=== PATIENT | female | born 1950 | race African-American/Black ===

== ENCOUNTER 2017-05-02 18:15 | Inpatient (IN) | payer OTHER ==
--- OUTSIDE RECORDS SUMMARY | 2017-05-02 18:17 | XMS REPORT | Clinical Summary ---
:1950 Author Organization [facility] Address [address] [place] [address] Care Team Providers Name Role Phone Jason Coates MD Primary Care Provider Allergies No Known Allergies Current Medications No known medications Active Problems No known active problems Encounters Date Type Specialty Care Team Description 11/02/2016 Orders Only General Surgery Unknown, Phys 10/29/2016 Office Visit General Surgery Shadi Montoya, Diverticulitis of large intestine without perforation or abscess without bleeding (Primary Dx); Diarrhea, unspecified type; Alagugurusamy, Fecal incontinence; Natalie Vizcaino, Abdominal pain, generalized [facility] CLOSER-C 10/29/2016 Orders Only General Surgery Alagugurusamy, Diarrhea, unspecified Natalie Vizcaino, type (Primary Dx) [employer]OSER-C after 05/01/2016 Family History Medical History Relation Name Comments Anesthesia problems Daughter Diabetes Daughter Kidney disease Daughter Arthritis Father Diabetes Father Hypertension Father Stroke Father Relation Name Status Comments Daughter Father Social History Tobacco Use Types Packs/Day Years Used Date Never Assessed Sex Assigned at Date Recorded Not on file Last Filed Vital Signs Vital Sign Reading Time Taken Blood Pressure 167/96 10/29/2016 10:48 AM CDT Pulse 88 10/29/2016 10:48 AM CDT Temperature - - Respiratory Rate - - Oxygen Saturation - - Inhaled Oxygen Concentration - - Weight 111 kg (245 lb) 10/29/2016 10:48 AM CDT Height 170.2 cm (5' 7") 10/29/2016 10:48 AM CDT Body Mass Index 38.37 10/29/2016 10:48 AM CDT Plan of Treatment Health Maintenance Due Date Last Done Comments PAP SMEAR 12/18/1972 COLONOSCOPY 12/18/2001 MAMMOGRAM 12/18/2001 ZOSTER VACCINE 2011 INFLUENZA VACCINE 09/14/2016 PNEUMOCOCCAL POLYSACCHARIDE VACCINE AGE 65 AND OVER 12/18/2016 PNEUMOCOCCAL-13 12/18/2016 Results Radiology Exam Surg Specimen (06/05/2016)after 05/01/2016 Insurance Payer Benefit Plan / Group Subscriber ID Type Phone Address [employer]ET[employer] A[employer] PPO OPEN CHOICE xxxxxxxxxx PPO [phone] [place] [address]
--- NOTE | 2017-05-02 19:17 | RAD REPORT ---
EXAM DESCRIPTION: CT - Stone Protocol - 05/02/2017 7:01 pm CLINICAL HISTORY: Left flank pain radiating to the back COMPARISON: CT imaging September 2016 TECHNIQUE: Axial 5 mm thick images were obtained without oral or IV contrast. The [id number] span s the entirety of the system including uppermost abdomen and lung bases. All CT scans are performed using dose optimization technique as appropriate and may include automated exposure control or mA/KV adjustment according to patient size. FINDINGS: No acute hydronephrosis is present. Slight fullness of the left renal pelvis is similar to the prior study. The patient has numerous presumed phleboliths in the pelvis and along the course of the ureter. None of these are confirmed to be within the ureter in the calcification pattern has not changed from September 2016. No suspicious renal masses. Isodense masses and pyelonephritis are not exc luded on a stone protocol CT scan. No urinary bladder suspicious finding. Imaged portions of the liver, spleen and pancreas show no suspicious findings on non-contrast imaging . Cholecystectomy clips are present. No biliary tree dilatation. No significant adrenal finding. No acute gastric finding. Small bowel is unremarkable. Moderate stool volume is present in the right- side of the colon extending through the descending colon. In the proximal sigmoid colon there is mild diverticulosis present. There is also mild wall thickening and adjacent stranding. This mild acute d iverticulitis pattern is not substantially different from the prior study. No colon mass. No hernia, mass or bulky lymphadenopathy noted. Hernia repair changes along the anterior abdominal wa ll are stable. Uterus is absent. Ovaries are absent or atrophic. No adnexal masses. Disc and bony degenerative change present. No acute finding. IMPRESSION: Mild diverticulitis findings are present in the proximal sigmoid colon. No abscess, free air or other complicating factor. No acute hydronephrosis is present. There are numerous calcifications in proximity to the left ureter but none of these are shown to be within the ureter. Calcification pattern is stable from prior imag ing. Isodense masses and pyelonephritis are not excluded on stone protocol technique.
--- NOTE | 2017-05-02 20:16 | RAD REPORT ---
EXAM DESCRIPTION: US - Renal Ultrasound-Complete - 05/02/2017 7:18 pm CLINICAL HISTORY: Abdominal pain, flank pain COMPARISON: CT study September 2016 FINDINGS: The right kidney measures 13.3 x 6.2 x 6.4 cm. The left kidney measures 12.9 x 6.4 x 5.8 cm. Renal cortical thickness and echogenicity are normal. No hydronephrosis or suspicious renal mass. IMPRESSION: No hydronephrosis or suspicious renal mass. No other significant findings.
--- NOTE | 2017-05-02 20:23 | EDPHYS ---
Physician Documentation [facility] Name: Blanka Ferrell Age: 66 yrs Sex: Female : 1950 Arrival Date: 05/02/2017 Time: 18:19 Bed 24 Private MD: Shaista Campos C ED Physician Philipp Harley HPI: 05/02 18:47 This 66 yrs old Black Female presents to ER via Ambulatory with complaints of Back Pain.yahir 18:47 The patient presents with pain that is acute, with no known mechanism of injury, and yahir decreased range of motion. The symptoms are located in the low back, left low back and left mid back. Onset: The symptoms/episode began/occurred 3 day(s) ago. The pain radiates to the left low back and left mid back. Associated signs and symptoms: The patient has no apparent associated signs or symptoms. The problem was sustained from unknown cause. Modifying factors: The patient symptoms are alleviated by nothing, the patient symptoms are aggravated by movement, standing, walking. Severity of symptoms: At their worst the symptoms were moderate, in the emergency department the symptoms are unchanged. Historical: - Allergies: 18:25 Imitrex; aj - Home Meds: 18:25 carvedilol 25 mg Oral tab 2 tab daily [Active]; clonidine HCl 0.2 mg Oral tab as needed aj [Active]; Humalog Sub-Q [Active]; Hydralazine Oral [Active]; Levemir subcutaneous [Active]; Lyrica Oral [Active]; losartan-hydrochlorothiazide 100-25 mg Oral tab 1 tab once daily [Active]; Phenergan Oral [Active]; - PMHx: 18:25 Anxiety; Diabetes - IDDM; Hypertension; Migraines; Thyroid problem; aj - PSHx: 18:25 Hysterectomy; aj - Immunization history:: Adult Immunizations up to date. - Social history:: Smoking status: Patient/guardian denies using tobacco. - Family history:: not pertinent. ROS: 18:47 Constitutional: Negative for fever, chills, and weight loss, Eyes: Negative for injury, yahir pain, redness, and discharge, ENT: Negative for injury, pain, and discharge, Neck: Negative for injury, pain, and swelling, Cardiovascular: Negative for chest pain, palpitations, and edema, Respiratory: Negative for shortness of breath, cough, wheezing, and pleuritic chest pain, : Negative for injury, bleeding, discharge, and swelling, MS/Extremity: Negative for injury and deformity, Skin: Negative for injury, rash, and discoloration, Neuro: Negative for headache, weakness, numbness, tingling, and seizure, Psych: Negative for depression, anxiety, suicide ideation, homicidal ideation, and hallucinations, Allergy/Immunology: Negative for hives, rash, and allergies, Endocrine: Negative for neck swelling, polydipsia, polyuria, polyphagia, and marked weight changes, Hematologic/Lymphatic: Negative for swollen nodes, abnormal bleeding, and unusual bruising. 18:47 Abdomen/GI: Positive for abdominal pain, of the posterior aspect of left lateral abdomen and left lower quadrant. 18:47 Back: Positive for decreased range of motion, pain at rest, flank pain, on the left, radiated pain, of the left low back and left mid back. Exam: 18:47 Constitutional: This is a well developed, well nourished patient who is awake, alert, yahir and in no acute distress. Head/Face: Normocephalic, atraumatic. Eyes: Pupils equal round and reactive to light, extra-ocular motions intact. Lids and lashes normal. Conjunctiva and sclera are non-icteric and not injected. Cornea within normal limits. Periorbital areas with no swelling, redness, or edema. ENT: Nares patent. No nasal discharge, no septal abnormalities noted. Tympanic membranes are normal and external auditory canals are clear. Oropharynx with no redness, swelling, or masses, exudates, or evidence of obstruction, uvula midline. Mucous membranes moist. Neck: Trachea midline, no thyromegaly or masses palpated, and no cervical lymphadenopathy. Supple, full range of motion without nuchal rigidity, or vertebral point tenderness. No Meningismus. Chest/axilla: Normal chest wall appearance and motion. Nontender with no deformity. No lesions are appreciated. Cardiovascular: Regular rate and rhythm with a normal S1 and S2. No gallops, murmurs, or rubs. Normal PMI, no JVD. No pulse deficits. Respiratory: Lungs have equal breath sounds bilaterally, clear to auscultation and percussion. No rales, rhonchi or wheezes noted. No increased work of breathing, no retractions or nasal flaring. Female : Normal external genitalia. Skin: Warm, dry with normal turgor. Normal color with no rashes, no lesions, and no evidence of cellulitis. MS/ Extremity: Pulses equal, no cyanosis. Neurovascular intact. Full, normal range of motion. Neuro: Awake and alert, GCS 15, oriented to person, place, time, and situation. Cranial nerves II-XII grossly intact. Motor strength 5/5 in all extremities. Sensory grossly intact. Cerebellar exam normal. Normal gait. Psych: Awake, alert, with orientation to person, place and time. Behavior, mood, and affect are within normal limits. 18:47 Abdomen/GI: Inspection: distension, Bowel sounds: normal, Palpation: mild abdominal tenderness, in the left lower quadrant, Liver: no appreciated palpable abnormalities, Hernia: not appreciated. Vital Signs: 18:25 BP 195 / 111; Pulse 93; Resp 20; Temp 97.0; Pulse Ox 96% on R/A; Weight 108.86 kg; aj Height 5 ft. 5 in. (165.10 cm); Pain 8/10; 21:30 BP 210 / 103; Pulse 77; Resp 18; Pulse Ox 98% on R/A; kr2 22:10 BP 182 / 85; Pulse 78; Resp 16; Pulse Ox 100% on R/A; kr2 18:25 Body Mass Index 39.94 (108.86 kg, 165.10 cm) Procedures: 20:18 Peripheral line: by aseptic technique a peripheral line was placed in the right [facility] external jugular vein. MDM: 18:29 Patient medically screened. [facility] 18:50 Data reviewed: vital signs, nurses notes, lab test result(s), EKG, radiologic studies, [facility] CT scan, plain films, ultrasound. 05/02 18:46 Order name: Basic Metabolic Panel [facility] 05/02 18:46 Order name: BNP [facility] 05/02 18:46 Order name: CBC with Diff [facility] 05/02 18:46 Order name: Ckmb [facility] 05/02 18:46 Order name: CPK [facility] 05/02 18:46 Order name: LFT's [facility] 05/02 18:46 Order name: Magnesium [facility] 05/02 18:46 Order name: PT-INR [facility] 05/02 18:46 Order name: Ptt, Activated [facility] 05/02 18:46 Order name: Troponin (emerg Dept Use Only) [facility] 05/02 18:46 Order name: Lipase [facility] 05/02 18:46 Order name: Urine Culture [facility] 05/02 20:27 Order name: CBC with Automated Diff; Complete Time: 20:32 EDSC 05/02 20:36 Order name: Basic Metabolic Panel; Complete Time: 20:51 EDSC 05/02 18:46 Order name: XRAY Chest (1 view) [facility] 05/02 18:46 Order name: CT Stone Protocol [facility] 05/02 18:46 Order name: US Rp Exam Complete [facility] 05/02 19:18 Order name: CT; Complete Time: 20:15 EDMS 05/02 20:16 Order name: US; Complete Time: 20:17 EDSC 05/02 20:36 Order name: Lipase; Complete Time: 20:51 EDSC 05/02 20:42 Order name: Troponin (Emerg Dept Use Only); Complete Time: 20:51 EDSC 05/02 20:42 Order name: Liver (Hepatic) Function; Complete Time: 20:51 EDSC 05/02 20:42 Order name: Creatine Phosphokinase; Complete Time: 20:51 EDSC 05/02 20:42 Order name: Magnesium; Complete Time: 20:51 EDSC 05/02 20:42 Order name: Protime (+INR); Complete Time: 20:51 EDSC 05/02 20:42 Order name: PTT, Activated Partial Thromb; Complete Time: 20:51 EDSC 05/02 20:45 Order name: CKMB Creatine Kinase MB; Complete Time: 20:51 EDSC 05/02 20:46 Order name: BNP B-Type Natriuretic Peptide; Complete Time: 20:51 EDSC 05/02 21:13 Order name: RAD [facility] 05/02 18:46 Order name: EKG; Complete Time: 18:48 [facility] 05/02 18:46 Order name: Cardiac monitoring; Complete Time: 21:37 [facility] 05/02 18:46 Order name: EKG - Nurse/Tech; Complete Time: 21:37 [facility] 05/02 18:46 Order name: IV Saline Lock; Complete Time: 21:37 [facility] 05/02 18:46 Order name: Labs collected and sent; Complete Time: 21:38 [facility] 05/02 18:46 Order name: O2 Per Protocol; Complete Time: 21:38 [facility] 05/02 18:46 Order name: O2 Sat Monitoring; Complete Time: 21:38 [facility] 05/02 18:46 Order name: Urine Dipstick-Ancillary (obtain specimen); Complete Time: :38 [facility] Administered Medications: 21:10 Drug: Coreg 25 mg Route: PO; kr2 22:52 Follow up: Response: No adverse reaction kr2 21:10 Drug: HydrALAZINE 25 mg Route: PO; kr2 22:52 Follow up: Response: No adverse reaction; Blood pressure is lowered kr2 21:10 Drug: cloNIDine 0.1 mg Route: PO; kr2 22:51 Follow up: Response: No adverse reaction; Blood pressure is lowered kr2 21:14 Drug: Cipro 400 mg Volume: 200 ml; Route: IVPB; Infused Over: 60 mins; Site: right kr2 jugular; 22:00 Follow up: Response: No adverse reaction; IV Status: Completed infusion kr2 21:14 Drug: Flagyl 500 mg Volume: 100 ml; Route: IVPB; Rate: 200 ml/hr; Infused Over: 30 kr2 mins; Site: right jugular; 22:00 Follow up: Response: No adverse reaction; IV Status: Completed infusion kr2 21:14 Drug: NS 0.9% 500 ml Route: IV; Rate: bolus; Site: right jugular; kr2 21:35 Follow up: Response: No adverse reaction; IV Status: Completed infusion kr2 21:15 Drug: fentaNYL (PF) 50 mcg Route: IVP; Site: right jugular; kr2 21:36 Follow up: Response: No adverse reaction; Pain is decreased kr2 21:15 Drug: Zofran 4 mg Route: IVP; Site: right jugular; kr2 21:36 Follow up: Response: No adverse reaction kr2 21:36 Drug: NS 0.9% 1000 ml Route: IV; Rate: 75 ml/hr; Site: right jugular; kr2 22:51 Follow up: IV Status: Infusion continued upon admission kr2 Disposition: 05/02/17 20:21 Hospitalization ordered by Shaista Campos for Observation. Preliminary diagnosis are Abdominal tenderness, Obesity, unspecified, Diverticular disease of intestine, Diverticulitis of large intestine without perforation or abscess without bleeding, Type 1 diabetes mellitus. - Bed requested for Telemetry/MedSurg (observation). - Status is Observation. kr2 - Condition is Fair. - Problem is new. - Symptoms have improved. UTI on Admission? No Signatures: Dispatcher [employer] Candice Owens RN RN mw Myers, Amanda, RN RN aj Anderson, Corey, MD MD cha Reaves, Karey, RN RN kr2
--- NOTE | 2017-05-02 20:23 | ER ---
Nurse's Notes [facility] Name: Blanka Ferrell Age: 66 yrs Sex: Female : 1950 Arrival Date: 05/02/2017 Time: 18:19 Bed 24 Private MD: Shaista Campos C Diagnosis: Abdominal tenderness;Obesity, unspecified;Diverticular disease of intestine;Diverticulitis of large intestine without perforation or abscess without bleeding;Type 1 diabetes mellitus Presentation: 05/02 18:23 Presenting complaint: Patient states: Left flank pain that radiates to back, started aj last . Transition of care: patient was not received from another setting of care. Onset of symptoms was April 27, 2017. Care prior to arrival: None. 18:23 Method Of Arrival: Ambulatory aj 18:23 Acuity: THALIA 3 aj Triage Assessment: 18:25 General: Appears in no apparent distress. comfortable, obese, Behavior is calm, aj cooperative, appropriate for age. Pain: Complains of pain in posterior aspect of left lateral abdomen and anterior aspect of left lateral abdomen. Neuro: Level of Consciousness is awake, alert, obeys commands, Oriented to person, place, time, situation. Respiratory: Airway is patent Respiratory effort is even, unlabored, Respiratory pattern is regular, symmetrical. Derm: Skin is intact, is healthy with good turgor, Skin is pink, warm \T\ dry. normal. Historical: - Allergies: 18:25 Imitrex; aj - Home Meds: 18:25 carvedilol 25 mg Oral tab 2 tab daily [Active]; clonidine HCl 0.2 mg Oral tab as needed aj [Active]; Humalog Sub-Q [Active]; Hydralazine Oral [Active]; Levemir subcutaneous [Active]; Lyrica Oral [Active]; losartan-hydrochlorothiazide 100-25 mg Oral tab 1 tab once daily [Active]; Phenergan Oral [Active]; - PMHx: 18:25 Anxiety; Diabetes - IDDM; Hypertension; Migraines; Thyroid problem; aj - PSHx: 18:25 Hysterectomy; aj - Immunization history:: Adult Immunizations up to date. - Social history:: Smoking status: Patient/guardian denies using tobacco. - Family history:: not pertinent. Screenin:00 Abuse screen: Denies threats or abuse. Denies injuries from another. Nutritional kr2 screening: No deficits noted. Tuberculosis screening: No symptoms or risk factors identified. Fall Risk None identified. Assessment: 19:00 General: Appears in no apparent distress. comfortable, well groomed, well developed, kr2 well nourished, Behavior is cooperative, appropriate for age, anxious. Pain: Complains of pain in left lower quadrant Pain radiates to left mid back and left low back Pain currently is 8 out of 10 on a pain scale. Quality of pain is described as aching, crampy, sharp. Neuro: Level of Consciousness is awake, alert, obeys commands, Oriented to person, place, time, situation, Appropriate for age [employer] are equal bilaterally Moves all extremities. Gait is steady, Speech is normal, Facial symmetry appears normal, Pupils are PERRLA, Intact. Cardiovascular: Capillary refill < 3 seconds in bilateral fingers Patient's skin is warm and dry. Respiratory: Airway is patent Respiratory effort is even, unlabored, Respiratory pattern is regular, symmetrical. GI: Abdomen is round non-distended, Bowel sounds present X 4 quads. Abd is soft X 4 quads Abdomen is tender to palpation in left lower quadrant Reports lower abdominal pain, nausea. : Urine is clear. EENT: Nares are clear bilaterally Oral mucosa is moist. Derm: Skin is intact, is healthy with good turgor, Skin is dry, Skin is normal, Skin temperature is warm. Musculoskeletal: Circulation, motion, and sensation intact. 20:00 Reassessment: Patient appears in no apparent distress at this time. Patient and/or kr2 family updated on plan of care and expected duration. Pain level reassessed. Patient is alert, oriented x 3, equal unlabored respirations, skin warm/dry/pink. Patient with poor venous access , attempting to obtain IV access to give ordered medications. 21:00 Reassessment: Patient appears in no apparent distress at this time. Patient and/or kr2 family updated on plan of care and expected duration. Pain level reassessed. Patient is alert, oriented x 3, equal unlabored respirations, skin warm/dry/pink. Patient states feeling better. Reassessment: Patient appears in no apparent distress at this time. Patient and/or family updated on plan of care and expected duration. Pain level reassessed. Patient is alert, oriented x 3, equal unlabored respirations, skin warm/dry/pink. 22:48 Reassessment: Patient appears in no apparent distress at this time. Patient and/or kr2 family updated on plan of care and expected duration. Pain level reassessed. Patient is alert, oriented x 3, equal unlabored respirations, skin warm/dry/pink. Given Tylenol for complaints of headache, documented in [employer] chart. Vital Signs: 18:25 BP 195 / 111; Pulse 93; Resp 20; Temp 97.0; Pulse Ox 96% on R/A; Weight 108.86 kg; Height 5 ft. 5 in. (165.10 cm); Pain 8/10; 21:30 BP 210 / 103; Pulse 77; Resp 18; Pulse Ox 98% on R/A; kr2 22:10 BP 182 / 85; Pulse 78; Resp 16; Pulse Ox 100% on R/A; kr2 18:25 Body Mass Index 39.94 (108.86 kg, 165.10 cm) ED Course: 18:19 Patient arrived in ED. mr 18:23 Shaista Campos MD is Private Physician. mr 18:24 Triage completed. 18:25 Arm band placed on left wrist. Patient placed in an exam room. 18:29 Philipp Harley MD is Attending Physician. [facility] 18:54 Laura Garcia, RE is Primary Nurse. kr2 19:00 Patient has correct armband on for positive identification. Bed in low position. Call kr2 light in reach. Side rails up X2. retread mold operator on. Pulse ox on. NIBP on. Door closed. Warm blanket given. Head of bed elevated. 19:[address] via wheelchair. mn 19:01 CT completed. Patient tolerated procedure well. Patient moved back from CT. mn 19:16 Ultrasound completed. Patient tolerated well. [facility] 19:19 Patient moved to radiology via wheelchair. [facility] 19:19 X-ray completed. Patient tolerated procedure well. [facility] 19:19 Patient moved back from radiology. [facility] 19:30 Missed attempt(s): 22 gauge in left antecubital area. Bleeding controlled, band aid kr2 applied, catheter tip intact. 20:00 Missed attempt(s): 22 gauge in right antecubital area. Bleeding controlled, band aid kr2 applied, catheter tip intact. 20:10 Urine collected: clean catch specimen, clear. dh3 20:20 Shaista Campos MD is Hospitalizing Provider. [facility] 20:20 Inserted saline lock: 18 gauge in right EJ, using aseptic technique. ,using aseptic kr2 technique. performed by Dr. Harley Blood collected. 22:47 No provider procedures requiring assistance completed. Patient admitted, IV remains in kr2 place. Administered Medications: 21:10 Drug: Coreg 25 mg Route: PO; kr2 22:52 Follow up: Response: No adverse reaction kr2 21:10 Drug: HydrALAZINE 25 mg Route: PO; kr2 22:52 Follow up: Response: No adverse reaction; Blood pressure is lowered kr2 21:10 Drug: cloNIDine 0.1 mg Route: PO; kr2 22:51 Follow up: Response: No adverse reaction; Blood pressure is lowered kr2 21:14 Drug: Cipro 400 mg Volume: 200 ml; Route: IVPB; Infused Over: 60 mins; Site: right kr2 jugular; 22:00 Follow up: Response: No adverse reaction; IV Status: Completed infusion kr2 21:14 Drug: Flagyl 500 mg Volume: 100 ml; Route: IVPB; Rate: 200 ml/hr; Infused Over: 30 kr2 mins; Site: right jugular; 22:00 Follow up: Response: No adverse reaction; IV Status: Completed infusion kr2 21:14 Drug: NS 0.9% 500 ml Route: IV; Rate: bolus; Site: right jugular; kr2 21:35 Follow up: Response: No adverse reaction; IV Status: Completed infusion kr2 21:15 Drug: fentaNYL (PF) 50 mcg Route: IVP; Site: right jugular; kr2 21:36 Follow up: Response: No adverse reaction; Pain is decreased kr2 21:15 Drug: Zofran 4 mg Route: IVP; Site: right jugular; kr2 21:36 Follow up: Response: No adverse reaction kr2 21:36 Drug: NS 0.9% 1000 ml Route: IV; Rate: 75 ml/hr; Site: right jugular; kr2 22:51 Follow up: IV Status: Infusion continued upon admission kr2 Outcome: 20:21 Decision to Hospitalize by Provider. [facility] 22:47 Admitted to [facility] accompanied by tech, via wheelchair, with chart, Report called to [address] 22:47 Condition: stable 22:50 Patient left the ED. kr2 Signatures: Gwendolyn Rosado RN RN aj Anderson, Corey, MD MD yahir Fields, Ирина mr Vadim Brandha [facility] Naseem Ireland Nathan nj Herrera, [facility] Laura Garcia, RE RN kr2 Corrections: (The following items were deleted from the chart) 21:28 20:00 Missed attempt(s): 22 gauge in left antecubital area. kr2 kr2
[2017-05-02 20:25] LABS: Absolute Lymphocytes (CBC) 1.9 K/uL (0.7-4.9); Absolute Monocytes 0.6 K/uL (0.1-1.3); Absolute Neutrophil 4.2 K/uL (1.8-8.0); Eosinophils % 1.4 % (0-4.4); Lymphocytes % 27.7 % (15.3-44.8); MCH 26.4 pg (27.0-35.0); MCV 79.4 fL (80-100); MPV 9.1 fL (7.6-11.3); Monocytes % 8.2 % (3.3-12.3); RBC Red Blood Cell Count 5.41 M/uL (3.86-4.86)
[2017-05-02] MEDS ORDERED: ACETAMINOPHEN 500 MG TAB PO PRN (20:25)
[2017-05-02] MEDS ORDERED: GLUCAGON 1 MG/VIAL IM PRN (20:27)
[2017-05-02] MEDS ORDERED: D50W 25 GM/50 ML SYRINGE IV PRN (20:27)
[2017-05-02 20:36] LABS: Bicarbonate 27 mEq/L (21-31); Glucose Level 240 mg/dL (65-120); Lipase 20 U/L (22-51); Protime INR 1.03; Sodium Level 142 mEq/L (135-145)
[2017-05-02 20:42] LABS: ALT/SGPT 16 IU/L (10-60); AST/SGOT 23 IU/L (10-42); Albumin 3.6 g/dL (3.2-5.5); Alkaline Phosphatase 111 IU/L (42-121); BUN Blood Urea Nitrogen 15 mg/dL (6-20); Bilirubin Direct 0.1 mg/dL (0-0.2); Bilirubin Total 0.7 mg/dL (0.3-1.2); Creatine Phosphokinase 99 IU/L (22-269); Glomerular Filtration Rate > 90 mL/min (=/>90); Magnesium 1.8 mg/dL (1.8-2.5); Protein, Total 7.4 g/dL (6.0-8.3)
[2017-05-02] MEDS ORDERED: ALBUTEROL 2.5 MG/3 ML NEB SOL ONE (20:48)
[2017-05-02] MEDS ORDERED: IPRATROPIUM BROM 0.5MG/2.5ML ONE (20:48)
[2017-05-02] MEDS ORDERED: HYDRALAZINE HCL 25 MG TABLET PO SCH (21:00)
[2017-05-02] MEDS ORDERED: INSULIN -REGULAR HUMAN 50 UNIT/0.5 ML ML SQ SCH (21:00)
[2017-05-02] MEDS: CIPROFLOXACIN 400mg IV 400 MG/200 ML BAG IV SCH (21:00)
[2017-05-02] MEDS ORDERED: ONDANSETRON 4 MG/2 ML VIAL ONE (21:10)
[2017-05-02] MEDS ORDERED: FENTANYL CITR 100 MCG/2 ML ONE (21:10)
[2017-05-02] MEDS ORDERED: HYDRALAZINE HCL 10 MG TABLET ONE (21:10)
[2017-05-02] MEDS ORDERED: CARVEDILOL 6.25 MG TAB ONE (21:10)
[2017-05-02] MEDS ORDERED: cloNIDine HCl 0.1 MG TAB ONE (21:10)
[2017-05-02] MEDS ORDERED: METRONIDAZOLE 500mg IVPB 500 MG/100 ML BAG IV ONE ×2 (21:11→21:12)
[2017-05-02] MEDS ORDERED: CIPROFLOXACIN 400mg IV 400 MG/200 ML BAG IV ONE (21:11)
[2017-05-02] MEDS ORDERED: NA CHLORIDE 0.9% 1,000 ML ONE (21:11)
--- NOTE | 2017-05-02 21:12 | RAD REPORT ---
EXAM DESCRIPTION: RAD - Chest Single View - 05/02/2017 7:22 pm CLINICAL HISTORY: Cough, back pain, left flank pain COMPARISON: November 2016, June 2016 TECHNIQUE: AP portable chest image was obtained 1911 hours . FINDINGS: No peripheral mass or consolidation. Fullness of the right hilum has not changed back to p rior imaging. Lung markings are similar to comparison. Mediastinum is widened slightly by rotation. H eart and vasculature are normal. No measurable pleural effusion and no pneumothorax. No gross bony ab normality seen. No acute aortic findings suspected. IMPRESSION: No acute cardiopulmonary process. No significant change from comparison.
[2017-05-02 23:04] VITALS: O2SAT 100
[2017-05-02] MEDS ORDERED: ACETAMINOPHEN 500 MG TAB ONE (23:04)
[2017-05-02] MEDS: NA CHLORIDE 0.9% 1,000 ML IV SCH (23:57)
[2017-05-02] MEDS: FENTANYL CITR 100 MCG/2 ML IV PRN (23:57)
[2017-05-02] MEDS: LORazepam 2 MG/ML VIAL IV PRN (23:58)
[2017-05-03] MEDS: METRONIDAZOLE 500mg IVPB 500 MG/100 ML BAG IV SCH ×5 (01:00→23:13)
[2017-05-03 02:31] VITALS: BMI 40.1
[2017-05-03] MEDS: FENTANYL CITR 100 MCG/2 ML IV PRN ×3 (03:48→20:07)
[2017-05-03] MEDS: ONDANSETRON 4 MG/2 ML VIAL IV PRN ×2 (05:31→10:29)
[2017-05-03] MEDS: CARVEDILOL 25 MG TAB PO SCH ×2 (05:40→18:56)
[2017-05-03 05:51] LABS: Absolute Lymphocytes (CBC) 1.5 K/uL (0.7-4.9); Absolute Monocytes 0.5 K/uL (0.1-1.3); Absolute Neutrophil 3.1 K/uL (1.8-8.0); Basophils % 0.8 % (0-1.3); Eosinophils % 1.2 % (0-4.4); Hematocrit 40.7 % (36.0-45.0); Lymphocytes % 28.8 % (15.3-44.8); MCV 80.8 fL (80-100); MPV 9.2 fL (7.6-11.3); RBC Red Blood Cell Count 5.04 M/uL (3.86-4.86)
[2017-05-03] MEDS ORDERED: INSULIN -REGULAR HUMAN 50 UNIT/0.5 ML ML SQ SCH (06:00)
[2017-05-03 06:05] LABS: ALT/SGPT 12 IU/L (10-60); AST/SGOT 18 IU/L (10-42); Bicarbonate 26 mEq/L (21-31); Bilirubin Direct 0.1 mg/dL (0-0.2); Bilirubin Total 0.8 mg/dL (0.3-1.2); Potassium 4.1 mEq/L (3.6-5.0); Protein, Total 6.1 g/dL (6.0-8.3); Sodium Level 139 mEq/L (135-145)
[2017-05-03 06:08] LABS: Alkaline Phosphatase 95 IU/L (42-121); BUN Blood Urea Nitrogen 13 mg/dL (6-20); Glomerular Filtration Rate > 90 mL/min (=/>90); Glucose Level 232 mg/dL (65-120); Lipase 26 U/L (22-51)
--- NOTE | 2017-05-03 06:20 | HP ---
Date of Admission: 05/03/2017 TONG/MODL Voice ID: [id number]
[2017-05-03] MEDS: NA CHLORIDE 0.9% 1,000 ML IV SCH ×2 (06:35→17:00)
--- NOTE | 2017-05-03 07:34 | EKG ---
Test Date: 2017-05-02 Test Time: 20:39:15 Endodontic Assistant: IVANNA MEASUREMENT RESULTS: Intervals: Rate: 85 RI: 156 QRSD: 162 QT: 414 QTc: 492 [place]: P: 49 RI: 156 QRS: 7 T: 188 INTERPRETIVE STATEMENTS: Normal sinus rhythm Possible Left atrial enlargement Left bundle branch block Abnormal ECG Compared to ECG 12/10/2016 19:55:23 No significant changes Electronically Signed On 05-03-17 07:33:39 CDT by Los Schroeder
[2017-05-03] MEDS ORDERED: GLUCAGON 1 MG/VIAL IM PRN (08:01)
[2017-05-03] MEDS ORDERED: D50W 25 GM/50 ML SYRINGE IV PRN (08:01)
[2017-05-03] MEDS: INSULIN -REGULAR HUMAN 50 UNIT/0.5 ML ML SQ SCH ×4 (08:15→20:17)
[2017-05-03] MEDS: LOSARTAN/HCTZ 50-12.5 PO SCH (08:33)
[2017-05-03] MEDS: ENOXAPARIN 30 MG/0.3 ML SQ SCH ×2 (08:33→20:04)
[2017-05-03] MEDS: CIPROFLOXACIN 400mg IV 400 MG/200 ML BAG IV SCH ×2 (08:33→20:02)
[2017-05-03] MEDS: HYDROCODONE/APAP 5/325 MG TAB PO PRN ×3 (08:34→22:33)
[2017-05-03] MEDS: PREGABALIN 150 MG CAP PO SCH ×2 (08:34→20:06)
[2017-05-03] MEDS: HYDRALAZINE HCL 25 MG TABLET PO SCH ×3 (08:35→20:06)
[2017-05-03] MEDS: cloNIDine HCl 0.1 MG TAB PO SCH ×3 (08:35→20:04)
[2017-05-03] MEDS: LORazepam 2 MG/ML VIAL IV PRN ×2 (08:43→22:33)
[2017-05-03] MEDS ORDERED: INSULIN DETEMIR 100 UNIT/1 ML INSULIN SQ SCH (09:00)
[2017-05-03] MEDS: MIRTAZAPINE 15 MG TAB PO SCH (20:06)
--- NOTE | 2017-05-03 21:11 | HP ---
Date of Admission: 05/03/2017 Chief Complaint: Abdominal pain. History Of Present Illness: This is a 66-year-old female patient, who came into emergency room with left-sided abdominal pain. The patient has been having this abdominal pain on the left side for the last few days. The pain was intermittent to start with, but as it has gotten worse over last few days, more or less, it is continuous pain now. No aggravating or relieving factor. She came into emergency room with this complaint yesterday, after she was evaluated, she was admitted to the hospital with acute diverticulitis. Denies any blood in stool or black stool. No blood in urine. No urinary complaints. No fall. No injury. Allergies: NO KNOWN ALLERGIES. Medications: According to office records, the patient is on aspirin 81 mg daily , carvedilol 12.5 mg 2 times a day, clonidine 0.2 mg 3 times a day, escitalopram 10 mg daily with breakfast, Humalog insulin 3 times a day per sliding scale with meal, hydralazine 50 mg 3 times a day, Januvia 100 mg daily with breakfast, Levemir insulin 60 units subcutaneous injection 2 times a day, losartan/HCTZ 100/25 mg 1 tablet p.o. daily Lyrica 300 mg p.o. 2 times a day, methimazole 10 mg daily, mirtazapine 15 mg p.o. at bedtime and triazolam 0.25 mg at bedtime. Review of Systems: GI: As mentioned above. All other systems reviewed and negative. Past Medical History: 1. Significant for hyperthyroidism. 2. Hyperlipidemia. 3. Diverticulosis. 4. Chronic diastolic congestive heart failure. 5. Hypertension. 6. Coronary artery disease. 7. Diabetes mellitus. 8. Insomnia. Past Surgical History: Significant for hernia repair, cholecystectomy, ankle surgery, and hysterectomy. Family History: Significant for son with history of blood clot, daughter with end-stage renal disease, on dialysis, heart disease, hypertension, diabetes. Social History: Negative for smoking or alcohol use. Physical Examination: Vital Signs: Temperature 98.3, pulse 68, respiratory rate 18, blood pressure 177/86, oxygen saturation 95%. Height 5 feet 5 inches, weight 241 pounds. General: Awake, alert, oriented, not in distress. HEENT: Head atraumatic, normocephalic. Conjunctivae nonerythematous. Sclerae white. Mouth, no thrush or edema noted. Ears/Nose, no mass, lesion, discharge noted. Neck: Supple. No JVD, lymph nodes, bruit, thyromegaly noted. Lungs: Bilateral good equal air entry. Clear to auscultation. No rhonchi. No rales. Heart: Normal heart sounds, no murmur or gallop. Abdomen: Soft, bowel sounds normal. No guarding, rigidity, or distention. Presence of left-sided abdominal tenderness without any rebound tenderness. Extremities: No leg edema. No calf tenderness. Skin: No rash, ulcer, cellulitis. Lymphatics: No lymph node enlargement in neck, supraclavicular, infraclavicular region. Neuro: No focal neurological deficit. Chest: Unremarkable. External Genitalia: Deferred. Rectal: Deferred. Laboratory Data: Yesterday, white count 6.7, hemoglobin 14.3, and platelet count 173. Today, white count is 5.1, hemoglobin 13.1, platelets 159. Yesterday, sodium 142, potassium 4, chloride 110, bicarb 27, BUN 15, creatinine 0.67, glucose 240. Liver function tests unremarkable. Troponin less than 0.03. Lipase 20. This morning, sodium 139, potassium 4.1, chloride 106, bicarb 26, BUN 13, creatinine 0.65, glucose 232. Liver function tests unremarkable. Lipase 26. Renal ultrasound, no hydronephrosis, no suspicious renal mass. CAT scan of abdomen and pelvis done in emergency room shows mild diverticulitis finding present in the proximal sigmoid colon. No abscess or any other complication. Chest x-ray, no acute cardiopulmonary changes. Impression: 1. Acute diverticulitis without perforation or bleeding. 2. Hypertension. 3. Type 2 diabetes mellitus. 4. Hyperlipidemia. 5. Hyperthyroidism. Plan: Admit the patient to hospital for further evaluation and management of this problem. The patient is appropriate for inpatient and is expected to spend 2 midnights in hospital. We will continue home medications per order. Diabetes will be managed with sliding scale insulin per order. We will not give Levemir insulin that she normally takes at home until she starts to eat her diabetic meal. Today, we will leave her on clear liquid diet. DVT prophylaxis will be given using Lovenox per order. Ambulation was encouraged. I will see her tomorrow for followup. Details and plan of treatment discussed with her. Antibiotics will be given to her per order. TONG/DAKOTAH Voice ID: [id number]
[2017-05-04] MEDS: NA CHLORIDE 0.9% 1,000 ML IV SCH (01:55)
[2017-05-04] MEDS: FENTANYL CITR 100 MCG/2 ML IV PRN ×3 (03:30→21:08)
[2017-05-04] MEDS: METRONIDAZOLE 500mg IVPB 500 MG/100 ML BAG IV SCH ×3 (05:09→17:38)
[2017-05-04 05:20] LABS: Absolute Lymphocytes (CBC) 1.4 K/uL (0.7-4.9); Absolute Monocytes 0.4 K/uL (0.1-1.3); Absolute Neutrophil 2.3 K/uL (1.8-8.0); Basophils % 0.6 % (0-1.3); Eosinophils % 4.2 % (0-4.4); Hematocrit 40.2 % (36.0-45.0); Lymphocytes % 32.9 % (15.3-44.8); MCH 26.3 pg (27.0-35.0); MCV 80.8 fL (80-100); MPV 9.3 fL (7.6-11.3); Monocytes % 10.3 % (3.3-12.3); RBC Red Blood Cell Count 4.98 M/uL (3.86-4.86)
[2017-05-04 06:01] LABS: BUN Blood Urea Nitrogen 9 mg/dL (6-20); Bicarbonate 27 mEq/L (21-31); Glomerular Filtration Rate > 90 mL/min (=/>90); Glucose Level 181 mg/dL (65-120); Magnesium 1.8 mg/dL (1.8-2.5); Potassium 3.8 mEq/L (3.6-5.0); Sodium Level 137 mEq/L (135-145)
[2017-05-04] MEDS: CARVEDILOL 25 MG TAB PO SCH ×2 (06:24→17:39)
[2017-05-04] MEDS: HYDROCODONE/APAP 5/325 MG TAB PO PRN ×2 (06:24→17:59)
[2017-05-04 06:59] LABS: Thyroid Stimulating Hormone 0.03 uIU/mL (0.34-5.60)
[2017-05-04] MEDS: INSULIN -REGULAR HUMAN 50 UNIT/0.5 ML ML SQ SCH ×4 (07:30→20:57)
[2017-05-04] MEDS: CIPROFLOXACIN 400mg IV 400 MG/200 ML BAG IV SCH ×2 (09:00→20:56)
[2017-05-04] MEDS: cloNIDine HCl 0.1 MG TAB PO SCH ×3 (09:01→20:58)
[2017-05-04] MEDS: LORazepam 2 MG/ML VIAL IV PRN ×2 (09:01→17:59)
[2017-05-04] MEDS: ENOXAPARIN 30 MG/0.3 ML SQ SCH ×2 (09:02→20:57)
[2017-05-04] MEDS: LOSARTAN/HCTZ 50-12.5 PO SCH (09:02)
[2017-05-04] MEDS: HYDRALAZINE HCL 25 MG TABLET PO SCH ×3 (09:03→20:58)
[2017-05-04] MEDS: PREGABALIN 150 MG CAP PO SCH ×2 (09:03→20:58)
--- NOTE | 2017-05-04 20:18 | PN ---
Date of Progress Note: 05/04/2017 Subjective: The patient was seen this morning for followup. She was lying in bed, not in distress. Complaining of abdominal pain. No nausea, vomiting, diarrhea. No bleeding. Objective: Vital signs: Reviewed. HEENT: Unremarkable. Lungs: Clear to auscultation. Heart: Sounds normal. Abdomen: Soft, bowel sounds normal. No guarding, rigidity, or distention. Presence of left-sided t enderness, but it is much better today than yesterday. No rebound tenderness. Extremity: No leg edema. Laboratory Data: White count 4.3, hemoglobin 13.1, platelets 142. Sodium 137, potassium 3.8, chlori de 104, bicarb 27, BUN 9, creatinine 0.63. Glucose 181. TSH 0.03. Impression: 1.Acute diverticulitis. 2.Hypertension. 3.Diabetes mellitus. 4.Hyperthyroidism. Plan: We will continue current medications and antibiotics. Advance diet from clear liquid diet to full liquid diet. Ambulation was encouraged. Continue DVT prophylaxis. Hopefully by tomorrow, we w ill advance her diet to regular diet and plan to discharge her to go home tomorrow probably. She see s Dr. Gordon on outpatient basis and reports having colonoscopy with him about 2 years ago. TONG/MODL Voice ID: [id number] Report ID: [id number]
[2017-05-04] MEDS: MIRTAZAPINE 15 MG TAB PO SCH (20:58)
[2017-05-04] MEDS ORDERED: POTASSIUM 25 MEQ EFFERV TAB PO ONE (21:00)
[2017-05-05] MEDS: METRONIDAZOLE 500mg IVPB 500 MG/100 ML BAG IV SCH ×4 (00:01→18:16)
[2017-05-05] MEDS: ONDANSETRON 4 MG/2 ML VIAL IV PRN (00:04)
[2017-05-05] MEDS: FENTANYL CITR 100 MCG/2 ML IV PRN ×4 (01:50→21:39)
[2017-05-05] MEDS: LORazepam 2 MG/ML VIAL IV PRN ×3 (02:02→21:39)
[2017-05-05 05:26] LABS: Potassium 4.1 mEq/L (3.6-5.0)
[2017-05-05] MEDS: CARVEDILOL 25 MG TAB PO SCH ×2 (05:53→18:17)
[2017-05-05] MEDS ORDERED: GLUCAGON 1 MG/VIAL IM PRN (07:51)
[2017-05-05] MEDS ORDERED: D50W 25 GM/50 ML SYRINGE IV PRN (07:51)
[2017-05-05] MEDS: INSULIN -REGULAR HUMAN 50 UNIT/0.5 ML ML SQ SCH ×4 (08:55→20:28)
[2017-05-05] MEDS: INSULIN DETEMIR 100 UNIT/1 ML INSULIN SQ SCH ×2 (08:55→16:30)
[2017-05-05] MEDS: PREGABALIN 150 MG CAP PO SCH ×2 (08:56→21:39)
[2017-05-05] MEDS: LOSARTAN/HCTZ 50-12.5 PO SCH (08:56)
[2017-05-05] MEDS: CIPROFLOXACIN 400mg IV 400 MG/200 ML BAG IV SCH ×2 (08:56→20:09)
[2017-05-05] MEDS: cloNIDine HCl 0.1 MG TAB PO SCH ×3 (08:57→20:09)
[2017-05-05] MEDS: HYDRALAZINE HCL 25 MG TABLET PO SCH ×3 (08:58→20:10)
[2017-05-05] MEDS: ENOXAPARIN 30 MG/0.3 ML SQ SCH ×2 (08:58→20:10)
[2017-05-05] MEDS: MIRTAZAPINE 15 MG TAB PO SCH (20:15)
--- NOTE | 2017-05-05 22:24 | PN ---
Date of Progress Note: 05/05/2017 Subjective: The patient was seen this morning for followup. Lying in bed, not in any distress, rizwana benitez has left-sided abdominal pain and some right-sided abdominal pain as well, but overall that is bett er. Yesterday, she did ambulate well. Denies any nausea or vomiting. No bowel movement yesterday o r day before yesterday. No bleeding. Objective: Vital Signs: Reviewed. HEENT: Unremarkable. Lungs: Clear to auscultation. Heart: Sounds normal. Abdomen: Soft. Bowel sounds normal. No guarding, rigidity, distention. No rebound tenderness. Le ft-sided tenderness present, overall better than yesterday and day before yesterday. Extremities: No leg edema. Laboratory Data: Sodium 138, potassium 4.1, chloride 105, bicarb 30, BUN 11, creatinine 0.79, glucos e 275. Impression: 1.Acute diverticulitis. 2.Hypertension. 3.Diabetes mellitus. 4.Hyperthyroidism. Plan: I found out from the patient that she was not compliant with her methimazole and she would anisa e it off and on and I have advised her to take it on a regular basis as prescribed. We will continue current antibiotic. Ambulation was encouraged. Continue DVT prophylaxis with Lovenox. We will advance diet to soft diet and possible discharge to go home tomorr ow. TONG/DAKOTAH Voice ID: [id number] Report ID: [id number]
[2017-05-06] MEDS: METRONIDAZOLE 500mg IVPB 500 MG/100 ML BAG IV SCH ×2 (00:16→05:50)
[2017-05-06] MEDS ORDERED: NA CHLORIDE 0.9% 500 ML ONE (00:31)
[2017-05-06] MEDS: FENTANYL CITR 100 MCG/2 ML IV PRN (03:04)
[2017-05-06] MEDS: CARVEDILOL 25 MG TAB PO SCH (05:48)
[2017-05-06] MEDS: ENOXAPARIN 30 MG/0.3 ML SQ SCH (09:00)
[2017-05-06] MEDS: HYDRALAZINE HCL 25 MG TABLET PO SCH (09:04)
[2017-05-06] MEDS: INSULIN -REGULAR HUMAN 50 UNIT/0.5 ML ML SQ SCH (09:04)
[2017-05-06] MEDS: LOSARTAN/HCTZ 50-12.5 PO SCH (09:04)
[2017-05-06] MEDS: INSULIN DETEMIR 100 UNIT/1 ML INSULIN SQ SCH (09:04)
[2017-05-06] MEDS: cloNIDine HCl 0.1 MG TAB PO SCH (09:04)
[2017-05-06] MEDS: PREGABALIN 150 MG CAP PO SCH (09:05)
[2017-05-06] MEDS: CIPROFLOXACIN 400mg IV 400 MG/200 ML BAG IV SCH (09:06)
[2017-05-06 09:40] VITALS: BP 150/72; TEMP 96.5
--- NOTE | 2017-05-06 22:59 | DS ---
Date of Discharge: 05/06/2017 Disposition: Discharged to go home. Physical Examination: HEENT: Unremarkable. Lungs: Clear to auscultation. Heart: Sounds normal. Abdomen: Soft. Bowel sounds normal. No guarding, rigidity, distention. No tenderness. Extremities: No leg edema. Discharge Medications And Instructions: 1. Continue all prior home medications. 2. Take Cipro 500 mg twice a day and metronidazole 500 mg 3 times a day as prescribed for 10 days. 3. Take mcrl-zyh-eayrqeg medication for constipation, which is Senokot-S 2 tablets by mouth 2 times a day and if constipation problem continues, then to add MiraLax 17 g powder mixed with 8 ounces of water and drink it by mouth 2 times a day. 4. Take Tylenol 500 mg by mouth 4 times a day as needed for pain and Motrin 200 mg, take 2 tablets by mouth 3 times a day with food as needed for pain. 5. Follow up at my office in 3 weeks. Hospital Course: A 66-year-old female patient, admitted to the hospital with abdominal pain complaint. Please see dictated H and P for more information. The patient came into emergency room with this left-sided abdominal pain. Further evaluation revealed presence of acute diverticulitis and she was admitted to the hospital. Initially, she was kept n.p.o., then I started her on clear liquid diet. IV fluid, IV antibiotic was given which was IV Cipro and IV Flagyl. Ambulation was started and she was given DVT prophylaxis using Lovenox. Her home medications were continued. She has history of chronic constipation and says sometimes she can go on 1 week without having bowel movement and she uses here-ovc-lubvcdy Dulcolax that has not helped, so I have advised her to try to Senokot-S and MiraLax as mentioned above. Her last colonoscopy, she reported was about [address] Gordon. After she was started on clear liquid diet, we slowly advanced her diet and she tolerated diet very well. Her TSH was suppressed and she has history of hyperthyroidism, but she is not compliant with her methimazole and I did talk to her about importance of taking this medication regularly and problems related to hyperthyroidism explained to her, especially cardiac arrhythmia and bone loss. Overall, her condition has improved over this hospitalization and she was discharged to go home in stable condition with above-mentioned medication and instructions. Final Diagnoses: 1. Acute diverticulitis without perforation or bleeding. 2. Hypertension. 3. Type 2 diabetes mellitus. 4. Hyperlipidemia. 5. Hyperthyroidism. 6. Chronic diastolic congestive heart failure. 7. Coronary artery disease. 8. Insomnia. Laboratory Data: Initial white count 6.7, hemoglobin 14.3, platelets 173. On May 04, 2017, white count 4.3, hemoglobin 13.1, platelets 142. Last chemistry yesterday, sodium 138, potassium 4.1, chloride 105, bicarb 30, BUN 11 , creatinine 0.79, glucose 275. Liver function test normal. TONG/MODL Voice ID: [id number] Report ID: [id number] SOLITARIO
== END 2017-05-06 11:29 | disposition home or self-care (01) | DRG 392 ==
LOC: ER 18:15 → ERHOLD 20:24 → 2ND 21:26 → OBSVTOIN 05-04 07:18
PROVIDERS: ADMIT Internal Medicine; ATTEND Internal Medicine
DX: K57.92 Diverticulitis of intestine, part unspecified, without perforation or abscess without bleeding (principal); I50.32 Chronic diastolic (congestive) heart failure; I10 Essential (primary) hypertension; E11.9 Type 2 diabetes mellitus without complications; E78.5 Hyperlipidemia, unspecified; E05.90 Thyrotoxicosis, unspecified without thyrotoxic crisis or storm; I25.10 Atherosclerotic heart disease of native coronary artery without angina pectoris; F51.09 Other insomnia not due to a substance or known physiological condition
CPT/HCPCS: 36415; 71045; 74176; 76377; 76770; 80048; 80076; 82550; 82553; 82962; 83690; 83735; 83880; 84443; 84484; 85025; 85610; 85730; 87086; 87088; 93005; 96361; 96365; 96368; 96375; 99285; G0378; J0744; J1650; J2405; J3010; J7030

== ENCOUNTER 2017-08-08 15:41 | Observation (INO) | payer OTHER ==
--- OUTSIDE RECORDS SUMMARY | 2017-08-08 16:01 | XMS REPORT | Clinical Summary ---
:1950 Author Organization [facility] Address [address] [place] [address] Care Team Providers Name Role Phone Denis Campos MD Primary Care Provider Allergies No Known Allergies Current Medications Prescription Sig. Disp. Refills Start Date End Date Status ALPRAZolam (XANAX) Take 0.5 mg Active 0.5 MG tablet by mouth 2 (two) times a day as needed for anxiety. butorphanol (STADOL) 1 spray into Active 10 mg/mL nasal spray each nostril every 8 (eight) hours as needed (for Headache). clonIDINE HCl Take 0.2 mg Active (CATAPRES) 0.2 MG by mouth 3 tablet (three) times a day. hydrALAZINE Take 50 mg by Active (APRESOLINE) 50 MG mouth 3 tablet (three) times a day. insulin detemir Inject 60 Active U-100 (LEVEMIR) 100 Units under unit/mL injection the skin 2 (two) times a day. losartan-hydrochloro Take 1 tablet Active thiazide (HYZAAR) by mouth 100-25 mg per tablet daily. mirtazapine Take 15 mg by Active (REMERON) 15 MG mouth tablet nightly. pregabalin (LYRICA) Take 300 mg Active 300 MG capsule by mouth 2 (two) times a day. sitaGLIPtin Take 100 mg Active (JANUVIA) 100 MG by mouth tablet every morning. triazolam (HALCION) Take 0.25 mg Active 0.25 MG tablet by mouth nightly. insulin lispro Inject under Active (HumaLOG) 100 the skin 3 unit/mL injection (three) times a day before meals. (PER SLIDING SCALE) carvedilol (COREG) Take 12.5 mg Active 12.5 MG tablet by mouth 2 (two) times a day. metroNIDAZOLE Take 500 mg 05/15/2017 Discontinued (FLAGYL) 500 MG by mouth 3 tablet (three) times a day. X 10 days. Started on 05-06-2017 ciprofloxacin Take 500 mg 05/15/2017 Discontinued (CIPRO) 500 MG by mouth 2 tablet (two) times a day. X 10 days. Started on 05-06-2017 naproxen sodium Take 220 mg 05/15/2017 Discontinued (ALEVE) 220 MG by mouth tablet every 12 (twelve) hours as needed for mild pain. metroNIDAZOLE Take 1 tablet 21 tablet 0 05/15/2017 05/22/2017 (FLAGYL) 500 MG (500 mg tablet total) by mouth 3 (three) times a day for 7 days. sennosides-docusate Take 1 tablet 30 tablet 0 05/15/2017 06/14/2017 sodium (SENOKOT-S) by mouth 8.6-50 mg per tablet nightly for 30 days. levoFLOXacin Take 1 tablet 7 tablet 0 05/15/2017 05/22/2017 (LEVAQUIN) 500 MG (500 mg tablet total) by mouth daily for 7 days. Active Problems Problem Noted Date Morbid obesity with BMI of 40.0-44.9, adult 05/13/2017 Diverticulitis of intestine 05/12/2017 Encounters Date Type Specialty Care Team Description 06/02/2017 Office Visit General Surgery Shadi Montoya Diverticulitis toney Fowler MD large intestine Alagugurusamy, without perforation or Natalie abscess without Vizcaino, WATER [employer]EROB[employer] INSTRUCTOR-C bleeding (Primary Dx) 05/15/2017 Patient Outreach Quality Gloria Viveros RN 05/12/2017 - Hospital Encounter General Surgery Laura Garcia Diverticulitis of intestine, unspecified bleeding status, unspecified complication status, unspecified part of intestinal tract (Primary Dx); 05/15/2017 MD Donato Hypertension, unspecified type; Skip Antoine Morbid obesity with BMI of 40.0-44.9, adult MD Shailesh 05/12/2017 Office Visit General Surgery Shadi Montoya Diverticulitis of MD Malcolm large intestine Alagugurusamy, without perforation or Natalie abscess without Vizcaino, WATER AEROBICS INSTRUCTOR-C bleeding (Primary Dx) 11/02/2016 Orders Only General Surgery Unknown, Phys 10/29/2016 Office Visit General Surgery Montoya, Shadi Diverticulitis of large intestine without perforation or abscess without bleeding (Primary Dx); MD Malcolm Diarrhea, unspecified type; Alagugurusamy, Fecal incontinence; Natalie Abdominal pain, generalized Carrillo, WATER AEROBICS INSTRUCTOR-C 10/29/2016 Orders Only General Surgery Alagugurusamy, Diarrhea, unspecified Natalie type (Primary Dx) Carrillo, WATER AEROBICS INSTRUCTOR-C after 08/07/2016 Family History Medical History Relation Name Comments Anesthesia problems Daughter Diabetes Daughter Kidney disease Daughter Arthritis Father Diabetes Father Hypertension Father Stroke Father Relation Name Status Comments Daughter Father Social History Tobacco Use Types Packs/Day Years Used Date Never Smoker Smokeless Tobacco: Never Used Alcohol Use Drinks/Week oz/Week Comments No Sex Assigned at Date Recorded Not on file Last Filed Vital Signs Vital Sign Reading Time Taken Blood Pressure 135/88 05/15/2017 11:19 AM CDT Pulse 82 05/15/2017 11:19 AM CDT Temperature 37.6 C (99.7 F) 05/15/2017 11:19 AM CDT Respiratory Rate 18 05/15/2017 11:19 AM CDT Oxygen Saturation 97% 05/15/2017 11:19 AM CDT Inhaled Oxygen Concentration - - Weight 109 kg (240 lb) 05/12/2017 1:30 PM CDT Height 165.1 cm (5' 5") 05/12/2017 1:30 PM CDT Body Mass Index 39.94 05/12/2017 1:30 PM CDT Plan of Treatment Health Maintenance Due Date Last Done Comments CERVICAL CANCER SCREENING 12/18/1972 BREAST CANCER SCREENING 12/18/2001 COLON CANCER SCREENING 12/18/2001 SHINGRIX VACCINE (#1) 12/18/2001 ZOSTER VACCINE 2011 PNEUMOCOCCAL POLYSACCHARIDE VACCINE AGE 65 AND OVER 12/18/2016 PNEUMOCOCCAL-13 12/18/2016 INFLUENZA VACCINE 09/14/2017 Procedures Procedure Name Priority Date/Time Associated Comments Diagnosis POC GLUCOSE Routine 05/15/2017 11:22 Results for this AM CDT procedure are in the results section. ESTIMATED GFR Routine 05/15/2017 7:36 Results for this AM CDT procedure are in the results section. BASIC METABOLIC PANEL Routine 05/15/2017 7:36 Results for this AM CDT procedure are in the results section. HC COMPLETE BLD COUNT Routine 05/15/2017 7:26 Results for this W/AUTO DIFF AM CDT procedure are in the results section. POC GLUCOSE Routine 05/15/2017 7:22 Results for this AM CDT procedure are in the results section. ESTIMATED GFR Routine 05/15/2017 4:00 Results for this AM CDT procedure are in the results section. PHOSPHORUS LEVEL Routine 05/15/2017 4:00 Results for this AM CDT procedure are in the results section. MAGNESIUM LEVEL Routine 05/15/2017 4:00 Results for this AM CDT procedure are in the results section. BASIC METABOLIC PANEL Routine 05/15/2017 4:00 Results for this AM CDT procedure are in the results section. CBC WITH PLATELET AND Routine 05/15/2017 3:50 Results for this DIFFERENTIAL AM CDT procedure are in the results section. POC GLUCOSE Routine 05/14/2017 9:01 Results for this PM CDT procedure are in the results section. POC GLUCOSE Routine 05/14/2017 5:46 Results for this PM CDT procedure are in the results section. POC GLUCOSE Routine 05/14/2017 12:00 Results for this PM CDT procedure are in the results section. POC GLUCOSE Routine 05/14/2017 8:21 Results for this AM CDT procedure are in the results section. ESTIMATED GFR Routine 05/14/2017 4:00 Results for this AM CDT procedure are in the results section. PHOSPHORUS LEVEL Routine 05/14/2017 4:00 Results for this AM CDT procedure are in the results section. MAGNESIUM LEVEL Routine 05/14/2017 4:00 Results for this AM CDT procedure are in the results section. HC COMPLETE BLD COUNT Routine 05/14/2017 4:00 Results for this W/AUTO DIFF AM CDT procedure are in the results section. BASIC METABOLIC PANEL Routine 05/14/2017 4:00 Results for this AM CDT procedure are in the results section. POC GLUCOSE Routine 05/13/2017 9:18 Results for this PM CDT procedure are in the results section. POC GLUCOSE Routine 05/13/2017 5:15 Results for this PM CDT procedure are in the results section. POC GLUCOSE Routine 05/13/2017 12:45 Results for this PM CDT procedure are in the results section. POC GLUCOSE Routine 05/13/2017 11:40 Results for this AM CDT procedure are in the results section. POC GLUCOSE Routine 05/13/2017 8:11 Results for this AM CDT procedure are in the results section. HC COMPLETE BLD COUNT Routine 05/13/2017 4:30 Results for this W/AUTO DIFF AM CDT procedure are in the results section. ESTIMATED GFR Routine 05/13/2017 4:00 Results for this AM CDT procedure are in the results section. PHOSPHORUS LEVEL Routine 05/13/2017 4:00 Results for this AM CDT procedure are in the results section. MAGNESIUM LEVEL Routine 05/13/2017 4:00 Results for this AM CDT procedure are in the results section. BASIC METABOLIC PANEL Routine 05/13/2017 4:00 Results for this AM CDT procedure are in the results section. POC GLUCOSE Routine 05/12/2017 8:59 Results for this PM CDT procedure are in the results section. CT ABDOMEN PELVIS WO STAT 05/12/2017 6:13 Results for this CONTRAST PM CDT procedure are in the results section. POTASSIUM LEVEL STAT 05/12/2017 3:35 Results for this PM CDT procedure are in the results section. ALKALINE PHOSPHATASE STAT 05/12/2017 3:35 Results for this PM CDT procedure are in the results section. ALT (SGPT) STAT 05/12/2017 3:35 Results for this PM CDT procedure are in the results section. AST (SGOT) STAT 05/12/2017 3:35 Results for this PM CDT procedure are in the results section. GRAM STAIN Routine 05/12/2017 3:24 Results for this PM CDT procedure are in the results section. URINE CULTURE Routine 05/12/2017 3:24 Results for this PM CDT procedure are in the results section. URINALYSIS SCREEN AND Routine 05/12/2017 3:18 Results for this MICROSCOPY, WITH REFLEX PM CDT procedure are in TO CULTURE the results section. SMEAR REVIEW STAT 05/12/2017 2:30 Results for this PM CDT procedure are in the results section. ESTIMATED GFR STAT 05/12/2017 2:30 Results for this PM CDT procedure are in the results section. COMPREHENSIVE METABOLIC STAT 05/12/2017 2:30 Results for this PANEL PM CDT procedure are in the results section. PARTIAL THROMBOPLASTIN STAT 05/12/2017 2:30 Results for this TIME (PTT) PM CDT procedure are in the results section. PROTHROMBIN TIME WITH STAT 05/12/2017 2:30 Results for this INR PM CDT procedure are in the results section. HC COMPLETE BLD COUNT STAT 05/12/2017 2:30 Results for this W/AUTO DIFF PM CDT procedure are in the results section. ECG 12-LEAD STAT 05/12/2017 1:39 Results for this PM CDT procedure are in the results section. after 08/07/2016 Results POC glucose (05/15/2017 11:22 AM)Only the most recent of12 resultswithin the time period is included. POC glucose 271 (H) 65 - 99 mg/dL [facility] DEPARTMENT OF PATHOLOGY AND Comment: GENOMIC MEDICINE [facility] Notified RN Meter ID: [id number] Manager [employer]: Florentino Griffin Performing Organization Address [facility] [place]/[facility] Phone Number [facility] DEPARTMENT OF PATHOLOGY AND [address] [place] [address] [employer] Estimated GFR (05/15/2017 7:36 AM)Only the most recent of5 resultswithin the time period is included. GFR Non Af Amer 72 mL/min/1.73 m2 [facility] DEPARTMENT OF PATHOLOGY AND GENOMIC MEDICINE GFR Af Amer 87 mL/min/1.73 m2 [facility] DEPARTMENT OF Comment: PATHOLOGY AND GENOMIC Chronic kidney disease: <60 mL/min/1.73m2 MEDICINE Kidney failure: <15 mL/min/1.73m2 The estimated GFR is calculated from the IDMS-traceable Modification of Diet in Renal Disease Equation. The accuracy of the calculation is poor when the creatinine is normal. Calculated values >90 mL/min/1.73m2 are not reported. This equation has not been validated in children (<18 years), women, the elderly (>70 years), or ethnic groups other than Caucasians and Americans. Specimen Plasma specimen Performing Organization Address City/[facility]/Zipcode Phone Number [facility] DEPARTMENT OF PATHOLOGY AND [address] [place] [address] [employer] Basic metabolic panel (05/15/2017 7:36 AM)Only the most recent of4 resultswithin the time period is included. Sodium 135 135 - 148 mEq/L [facility] DEPARTMENT OF PATHOLOGY AND GENOMIC MEDICINE Potassium 4.4 3.5 - 5.0 mEq/L [facility] DEPARTMENT OF PATHOLOGY AND GENOMIC MEDICINE Chloride 100 98 - 112 mEq/L [facility] DEPARTMENT OF PATHOLOGY AND GENOMIC MEDICINE CO2 24 24 - 31 mEq/L [facility] DEPARTMENT OF PATHOLOGY AND GENOMIC MEDICINE Anion gap 11 7 - 15 mEq/L [facility] DEPARTMENT OF PATHOLOGY Comment: AND GENOMIC [facility] Starting from May , anion gap calculation no longer incorporates potassium. Please note the change. BUN 17 8 - 23 mg/dL [facility] DEPARTMENT OF PATHOLOGY AND GENOMIC MEDICINE Creatinine 0.8 0.5 - 0.9 mg/dL [facility] DEPARTMENT OF PATHOLOGY AND GENOMIC MEDICINE Glucose 154 (H) 65 - 99 mg/dL [facility] DEPARTMENT OF PATHOLOGY AND GENOMIC MEDICINE Calcium 9.2 8.8 - 10.2 mg/dL [facility] DEPARTMENT OF PATHOLOGY AND GENOMIC MEDICINE Specimen Plasma specimen Performing Organization Address City/State/Zipcode Phone Number [facility] DEPARTMENT OF PATHOLOGY AND [address] [place] [address] [email or web address] [facility] CBC with platelet and differential (05/15/2017 7:26 AM)Only the most recent of5 resultswithin the time period is included. WBC 5.69 4.50 - 11.00 k/uL [facility] DEPARTMENT OF PATHOLOGY AND GENOMIC MEDICINE RBC 4.86 4.20 - 5.50 m/uL [facility] DEPARTMENT OF PATHOLOGY AND GENOMIC MEDICINE HGB 12.6 12.0 - 16.0 g/dL [facility] DEPARTMENT OF PATHOLOGY AND GENOMIC MEDICINE HCT 40.6 37.0 - 47.0 % [facility] DEPARTMENT OF PATHOLOGY AND GENOMIC MEDICINE MCV 83.5 82.0 - 100.0 fL [facility] DEPARTMENT OF PATHOLOGY AND GENOMIC MEDICINE MCH 25.9 (L) 27.0 - 34.0 pg [facility] DEPARTMENT OF PATHOLOGY AND GENOMIC MEDICINE MCHC 31.0 31.0 - 37.0 g/dL [facility] DEPARTMENT OF PATHOLOGY AND GENOMIC MEDICINE RDW - SD 48.0 37.0 - 55.0 fL [facility] DEPARTMENT OF PATHOLOGY AND GENOMIC MEDICINE MPV 10.5 8.8 - 13.2 fL [facility] DEPARTMENT OF PATHOLOGY AND GENOMIC MEDICINE Platelet count 185 150 - 400 k/uL [facility] DEPARTMENT OF PATHOLOGY AND GENOMIC MEDICINE Nucleated RBC 0.00 /100 WBC [facility] DEPARTMENT OF PATHOLOGY AND GENOMIC MEDICINE Neutrophils 48.1 39.0 - 69.0 % [facility] DEPARTMENT OF PATHOLOGY AND GENOMIC MEDICINE Lymphocytes 36.7 25.0 - 45.0 % [facility] DEPARTMENT OF PATHOLOGY AND GENOMIC MEDICINE Monocytes 11.8 (H) 0.0 - 10.0 % [facility] DEPARTMENT OF PATHOLOGY AND GENOMIC MEDICINE Eosinophils 2.5 0.0 - 5.0 % [facility] DEPARTMENT OF PATHOLOGY AND GENOMIC MEDICINE Basophils 0.4 0.0 - 1.0 % [facility] DEPARTMENT OF PATHOLOGY AND GENOMIC MEDICINE Immature granulocytes 0.5Comment: 0.0 - 1.0 % [facility] DEPARTMENT OF "Immature PATHOLOGY AND GENOMIC granulocytes" MEDICINE (promyelocytes, myelocytes, metamyelocytes) Performing Organization Address City/[facility] Phone Number [facility] DEPARTMENT OF PATHOLOGY AND [address] [place] [address] Phosphorus level (05/15/2017 4:00 AM)Only the most recent of3 resultswithin the time period is included. Phosphorus 3.4 2.4 - 4.5 mg/dL [facility] DEPARTMENT OF PATHOLOGY AND GENOMIC MEDICINE Specimen Plasma specimen Performing Organization Address [facility] [place]/[facility] Phone Number [facility] DEPARTMENT OF PATHOLOGY AND [address] [place] [address] Magnesium level (05/15/2017 4:00 AM)Only the most recent of3 resultswithin the time period is included. Magnesium 2.0 1.6 - 2.4 mg/dL [facility] DEPARTMENT OF PATHOLOGY AND GENOMIC MEDICINE Specimen Plasma specimen Performing Organization Address [facility] [place]/[facility] Phone Number [facility] DEPARTMENT OF PATHOLOGY AND [address] [place] [address] CT Abdomen Pelvis Wo Contrast (05/12/2017 6:13 PM) Narrative Performed At EXAMINATION:CT ABDOMEN PELVIS WO CONTRAST [facility] CLINICAL HISTORY:diverticulitis TECHNIQUE: Multiple axial images of the abdomen and pelvis were obtained without intravenous administration of iodinated contrast. Sagittal and coronal computerized reformatted images were also obtained. The lack of intravenous contrast reduces the sensitivity of detecting solid organ disease.Automatic exposure control and iterative reconstruction techniques used to reduce dose. COMPARISON:None. FINDINGS: Mild stranding in the fat adjacent to the sigmoid colon with mild wall thickening sigmoid colon suggestive of mild acute diverticulitis. There is no evidence of abscess or free air. Diverticulosis throughout the remainder of the colon The liver, spleen, pancreas, adrenals and kidneys are within normal limits. The gallbladder has been removed No significant lymphadenopathy free fluid present Small bowel is unremarkable Pelvis: There is a moderate amount retained stool in colon No significant lymphadenopathy, solid masses or free fluid present Degenerative changes are present throughout the bony structures without evidence of a suspicious focal lesion. Atelectasis in the lung bases. IMPRESSION: Mild diverticulitis of the sigmoid colon without evidence of abscess or free air [facility]-[id number] Procedure Note [facility], Radiology Results Incoming - 05/12/2017 6:24 PM CDT EXAMINATION: CT ABDOMEN PELVIS WO CONTRAST CLINICAL HISTORY: diverticulitis TECHNIQUE: Multiple axial images of the abdomen and pelvis were obtained without intravenous administration of iodinated contrast. Sagittal and coronal computerized reformatted images were also obtained. The lack of intravenous contrast reduces the sensitivity of detecting solid organ disease.Automatic exposure control and iterative reconstruction techniques used to reduce dose. COMPARISON: None. FINDINGS: Mild stranding in the fat adjacent to the sigmoid colon with mild wall thickening sigmoid colon suggestive of mild acute diverticulitis. There is no evidence of abscess or free air. Diverticulosis throughout the remainder of the colon The liver, spleen, pancreas, adrenals and kidneys are within normal limits. The gallbladder has been removed No significant lymphadenopathy free fluid present Small bowel is unremarkable Pelvis: There is a moderate amount retained stool in colon No significant lymphadenopathy, solid masses or free fluid present Degenerative changes are present throughout the bony structures without evidence of a suspicious focal lesion. Atelectasis in the lung bases. IMPRESSION: Mild diverticulitis of the sigmoid colon without evidence of abscess or free air [facility]-[id number] Performing Organization Address [facility] [place]/[facility] Phone Number [address] [address] ALT (SGPT) (05/12/2017 3:35 PM) ALT 18 5 - 50 U/L [facility] DEPARTMENT OF PATHOLOGY AND GENOMIC MEDICINE Specimen Plasma specimen Performing Organization Address [facility] Phone Number [facility] DEPARTMENT OF PATHOLOGY AND [address] [place] [id number] [facility] AST (SGOT) (05/12/2017 3:35 PM) AST 21 10 - 35 U/L [facility] DEPARTMENT OF PATHOLOGY AND GENOMIC MEDICINE Specimen Plasma specimen Performing Organization Address [facility] [place]/[facility] Phone Number [facility] DEPARTMENT OF PATHOLOGY AND [address] [place] [id number] [facility] Potassium level (05/12/2017 3:35 PM) Potassium 4.0 3.5 - 5.0 mEq/L [facility] DEPARTMENT OF PATHOLOGY AND GENOMIC MEDICINE Specimen Plasma specimen Performing Organization Address [facility] [place]/[facility] Phone Number [facility] DEPARTMENT OF PATHOLOGY AND [address] [place] [address] MEDICINE Alkaline phosphatase (05/12/2017 3:35 PM) Alkaline phosphatase 99 35 - 104 U/L [facility] DEPARTMENT OF PATHOLOGY AND GENOMIC MEDICINE Specimen Plasma specimen Performing Organization Address [facility] [place]/[facility] Phone Number [facility] DEPARTMENT OF PATHOLOGY AND [address] [place] [address] MEDICINE Gram stain (05/12/2017 3:24 PM) Gram stain result No WBC's [facility] DEPARTMENT OF PATHOLOGY Occasional Gram positive rods AND GENOMIC MEDICINE Comment: Specimen Information Specimen Source: Urine Specimen Site: Clean catch Specimen Urine Performing Organization Address [facility] [place]/[facility] Phone Number [facility] DEPARTMENT OF PATHOLOGY AND [address] [place] [address] Urine culture (05/12/2017 3:24 PM) Urine culture isolate Mixed Gram positive vitaliy [facility] DEPARTMENT OF 10-5 cfu/ml PATHOLOGY AND GENOMIC (A) MEDICINE Comment: Specimen Information Specimen Source: Urine Specimen Site: Clean catch Specimen Urine Performing Organization Address [facility] [place]/[facility] Phone Number [facility] DEPARTMENT OF PATHOLOGY AND [address] [place] [address] Urinalysis screen and microscopy, with reflex to culture (05/12/2017 3:18 PM) Specimen site Clean catch [facility] DEPARTMENT OF PATHOLOGY AND GENOMIC MEDICINE Color, UA Straw [facility] DEPARTMENT OF PATHOLOGY AND GENOMIC MEDICINE Appearance, UA Clear [facility] DEPARTMENT OF PATHOLOGY AND GENOMIC MEDICINE Specific gravity, UA 1.021 1.001 - 1.035 [facility] DEPARTMENT OF PATHOLOGY AND GENOMIC MEDICINE pH, UA 5.0 5.0 - 8.5 [facility] DEPARTMENT OF PATHOLOGY AND GENOMIC MEDICINE Protein, UA Negative Negative [facility] DEPARTMENT OF PATHOLOGY AND GENOMIC MEDICINE Glucose, UA 3+ (A) Negative [facility] DEPARTMENT OF PATHOLOGY AND GENOMIC MEDICINE Ketones, UA Negative Negative [facility] DEPARTMENT OF PATHOLOGY AND GENOMIC MEDICINE Bilirubin, UA Negative Negative [facility] DEPARTMENT OF PATHOLOGY AND GENOMIC MEDICINE Blood, UA Small (A) Negative [facility] DEPARTMENT OF PATHOLOGY AND GENOMIC MEDICINE Nitrite, UA Negative Negative [facility] DEPARTMENT OF PATHOLOGY AND GENOMIC MEDICINE Urobilinogen, UA <2.0 <2.0 [facility] DEPARTMENT OF PATHOLOGY AND GENOMIC MEDICINE Leukocyte esterase, UA Moderate (A) Negative [facility] DEPARTMENT OF PATHOLOGY AND GENOMIC MEDICINE Epithelial cells, UA 3 /HPF [facility] DEPARTMENT OF PATHOLOGY AND GENOMIC MEDICINE WBC, UA 8 (H) 0 - 4 /HPF [facility] DEPARTMENT OF PATHOLOGY AND GENOMIC MEDICINE RBC, UA 4 (H) 0 - 2 /HPF [facility] DEPARTMENT OF PATHOLOGY AND GENOMIC MEDICINE Bacteria, UA Few None seen [facility] DEPARTMENT OF PATHOLOGY AND GENOMIC MEDICINE Yeast, UA None seen [facility] DEPARTMENT OF PATHOLOGY AND GENOMIC MEDICINE Yeast with pseudohyphae, UA None seen [facility] DEPARTMENT OF PATHOLOGY AND GENOMIC MEDICINE Specimen Urine Performing Organization Address City/State/Zipcode Phone Number [facility] DEPARTMENT OF PATHOLOGY AND [address] [place] [id number] [facility] MEDICINE Smear review (05/12/2017 2:30 PM) Platelet slide review Bridget adequate [facility] DEPARTMENT OF PATHOLOGY AND GENOMIC MEDICINE Polychromasia Moderate [facility] DEPARTMENT OF PATHOLOGY AND GENOMIC MEDICINE Enlarged platelets Moderate (A) [facility] DEPARTMENT OF PATHOLOGY AND GENOMIC MEDICINE Narrative Performed At Unable to perform testing, specimen is [facility] DEPARTMENT OF PATHOLOGY AND GENOMIC HEMOLYZED. Recollect MEDICINE requested for K, AST, ALT, ALP (tests).TRICIA MARIANELA/ADRIAN notified by [email or web address] at05/12/201715:25. Performing Organization Address City/[facility] Phone Number [facility] DEPARTMENT OF PATHOLOGY AND [address] [place] [id number] [facility] Partial thromboplastin time, activated (05/12/2017 2:30 PM) PTT 22.2 (L) 23.0 - 36.0 sec [facility] DEPARTMENT OF PATHOLOGY Comment: AND [facility] PTT therapeutic range for unfractionated heparin is 61.0-112.0 seconds which corresponds to Anti-Xa 0.3-0.7 U/ml. Specimen Blood Narrative Performed At Unable to perform testing, specimen is [facility] DEPARTMENT OF PATHOLOGY AND GENOMIC HEMOLYZED. Recollect MEDICINE requested for K, AST, ALT, ALP (tests).TRICIA MARIANELA/ADRIAN notified by [email or web address] at05/12/201715:25. Performing Organization Address City/State/Zipcode Phone Number [facility] DEPARTMENT OF PATHOLOGY AND [address] [place] [phone] [facility] Prothrombin time with INR (05/12/2017 2:30 PM) Prothrombin time 13.8 12.0 - 15.0 sec [facility] DEPARTMENT OF PATHOLOGY AND GENOMIC MEDICINE INR 1.0 [facility] DEPARTMENT OF Comment: PATHOLOGY AND GENOMIC The International Normalized Ratio (INR) is a therapeutic MEDICINE monitoring tool for patients who are stable on oral anticoagulant therapy. An INR of 2.0-3.0 is suggested for deep vein thrombosis/pulmonary embolism. Specimen Blood Performing Organization Address City/State/Zipcode Phone Number [facility] DEPARTMENT OF PATHOLOGY AND [address] [place] [address] [facility] Comprehensive metabolic panel (05/12/2017 2:30 PM) Sodium 140 135 - 148 mEq/L [facility] DEPARTMENT OF PATHOLOGY AND GENOMIC MEDICINE Potassium SEE COMMENT 3.5 - 5.0 mEq/L [facility] DEPARTMENT OF Comment: PATHOLOGY AND GENOMIC Footnote--------- MEDICINE Unable to perform testing, specimen is HEMOLYZED. Chloride 104 98 - 112 mEq/L [facility] DEPARTMENT OF PATHOLOGY AND GENOMIC MEDICINE CO2 22 (L) 24 - 31 mEq/L [facility] DEPARTMENT OF PATHOLOGY AND GENOMIC MEDICINE Anion gap 14 7 - 15 mEq/L [facility] DEPARTMENT OF Comment: PATHOLOGY AND GENOMIC Starting from May , anion gap calculation MEDICINE no longer incorporates potassium. Please note the change. BUN 17 8 - 23 mg/dL [facility] DEPARTMENT OF PATHOLOGY AND GENOMIC MEDICINE Creatinine 0.6 0.5 - 0.9 mg/dL [facility] DEPARTMENT OF PATHOLOGY AND GENOMIC MEDICINE Glucose 259 (H) 65 - 99 mg/dL [facility] DEPARTMENT OF PATHOLOGY AND GENOMIC MEDICINE Calcium 9.4 8.8 - 10.2 mg/dL [facility] DEPARTMENT OF PATHOLOGY AND GENOMIC MEDICINE Protein 7.6 6.3 - 8.3 g/dL [facility] DEPARTMENT OF Comment: PATHOLOGY AND GENOMIC [place] 4.6-7.0 g/dL MEDICINE 1 week 4.4-7.6 g/dL 7 months-1year5.1-7.3 g/dL 1-2 years5.6-7.5 g/dL >3 years6.0-8.0 g/dL 18-150 6.3-8.3 g/dL Albumin 3.1 (L) 3.5 - 5.0 g/dL [facility] DEPARTMENT OF PATHOLOGY AND GENOMIC MEDICINE A/G ratio 0.7 0.7 - 3.8 [facility] DEPARTMENT OF PATHOLOGY AND GENOMIC MEDICINE Alkaline phosphatase SEE COMMENTComment: 35 - 104 U/L [facility] DEPARTMENT OF Footnote--------- PATHOLOGY AND GENOMIC MEDICINE AST SEE COMMENTComment: 10 - 35 U/L [facility] DEPARTMENT OF Footnote--------- PATHOLOGY AND GENOMIC MEDICINE ALT SEE COMMENTComment: 5 - 50 U/L [facility] DEPARTMENT OF Footnote--------- PATHOLOGY AND GENOMIC MEDICINE Total bilirubin 0.3 0.0 - 1.2 mg/dL [facility] DEPARTMENT OF PATHOLOGY AND GENOMIC MEDICINE Specimen Plasma specimen Performing Organization Address City/[facility] Phone Number [facility] DEPARTMENT OF PATHOLOGY AND [address] [place] [address] [facility] MEDICINE ECG 12 lead (05/12/2017 1:39 PM) Ventricular rate 84 [facility] MUSE Atrial rate 84 [facility] MUSE [place] interval 142 [facility] MUSE QRSD interval 158 [facility] MUSE QT interval 438 [facility] MUSE QTC interval 517 [facility] MUSE P axis 1 63 [facility] MUSE QRS axis 1 -1 [facility] MUSE T wave axis 56 [facility] MUSE EKG impression Normal sinus rhythm-Left bundle branch [facility] MUSE block-Abnormal ECG-In automated comparison with ECG of 26-APR-2012 05:35,-premature atrial complexes are no longer present- Performing Organization Address [facility] [place]/[facility] Phone Number [facility] [address] [place] [address] after 08/07/2016 Insurance Payer Benefit Plan / Group Subscriber ID Type Phone Address [employer] MED[employer]ARE [employer] MEDICARE PPO/PFFS/[facility] xxxxxxxxx PPO
[2017-08-08 17:54] VITALS: BMI 39.6
[2017-08-08] MEDS ORDERED: NIFEDIPINE XL 30 MG TABLET PO ONE (18:30)
--- NOTE | 2017-08-08 19:17 | RAD REPORT ---
EXAM DESCRIPTION: RAD - Chest Pa And Lat (2 Views) - 08/08/2017 7:07 pm CLINICAL HISTORY: chest pain Chest pain. COMPARISON: Chest Single View dated 05/02/2017; Chest Single View dated 12/10/2016; Chest Single View dated 07/05/2016; Chest Single View dated 05/03/2016 FINDINGS: The lungs are hyperexpanded but clear. The heart is mildly moderately enlarged. No displac ed fractures. A hiatal hernia is seen. IMPRESSION: Hvmv-hs-lclxucey cardiomegaly.
[2017-08-08 19:25] VITALS: O2SAT 97
[2017-08-08] MEDS ORDERED: CARVEDILOL 25 MG TAB PO ONE (19:36)
[2017-08-08] MEDS ORDERED: ACETAMINOPHEN 325 MG TABLET PO PRN (19:38)
[2017-08-08] MEDS ORDERED: ALPRAZOLAM 0.5 MG TABLET PO PRN (19:38)
[2017-08-08 19:57] LABS: Absolute Lymphocytes (CBC) 1.6 K/uL (0.7-4.9); Absolute Monocytes 0.5 K/uL (0.1-1.3); Absolute Neutrophil 3.6 K/uL (1.8-8.0); Basophils % 1.2 % (0-1.3); Lymphocytes % 28.1 % (15.3-44.8); MCH 27.1 pg (27.0-35.0); MCV 82.4 fL (80-100); MPV 8.9 fL (7.6-11.3); Monocytes % 7.8 % (3.3-12.3); RBC Red Blood Cell Count 5.94 M/uL (3.86-4.86)
[2017-08-08] MEDS: LOSARTAN/HCTZ 50-12.5 PO SCH (20:21)
[2017-08-08] MEDS: DOXAZOSIN 2 MG TAB PO SCH ×2 (20:21→20:32)
[2017-08-08] MEDS: HYDRALAZINE HCL 25 MG TABLET PO SCH (20:21)
[2017-08-08 20:28] LABS: Albumin 3.7 g/dL (3.4-5.0); Bilirubin Total 0.3 mg/dL (0.2-1.0); CKMB Creatine Kinase MB 2.5 ng/mL (0.3-3.6); Magnesium 2.2 mg/dL (1.8-2.4); Potassium 3.8 mmol/L (3.5-5.1); Protein, Total 8.6 g/dL (6.4-8.2); Thyroid Stimulating Hormone 0.01 uIU/mL (0.36-3.74)
[2017-08-08] MEDS ORDERED: GLUCAGON 1 MG/VIAL IM PRN (21:51)
[2017-08-08] MEDS ORDERED: D50W 25 GM/50 ML SYRINGE IV PRN (21:51)
[2017-08-08] MEDS ORDERED: HOME MED 1 EA UNK (Zolpidem Tartrate [Ambien*] 10 MG) PO PRN (22:00)
[2017-08-08] MEDS ORDERED: AMLODIPINE 5 MG TAB PO ONE (22:01)
[2017-08-08] MEDS: CODEINE 30MG/APAP 300MG TAB PO PRN (23:01)
[2017-08-09] MEDS ORDERED: ZOLPIDEM TARTRATE 10 MG TABLET PO ONE (02:49)
[2017-08-09] MEDS: CODEINE 30MG/APAP 300MG TAB PO PRN ×2 (04:44→11:27)
[2017-08-09] MEDS: CARVEDILOL 25 MG TAB PO SCH ×2 (04:45→17:38)
[2017-08-09 06:04] LABS: Potassium 3.8 mmol/L (3.5-5.1)
[2017-08-09] MEDS: INSULIN -REGULAR HUMAN 50 UNIT/0.5 ML ML SQ SCH ×3 (07:30→17:39)
[2017-08-09] MEDS: INSULIN DETEMIR 100 UNIT/1 ML INSULIN SQ SCH ×2 (08:15→17:38)
[2017-08-09] MEDS: HYDRALAZINE HCL 25 MG TABLET PO SCH ×2 (08:16→13:25)
[2017-08-09] MEDS: LOSARTAN/HCTZ 50-12.5 PO SCH (08:16)
[2017-08-09] MEDS: DOXAZOSIN 2 MG TAB PO SCH (08:16)
[2017-08-09] MEDS ORDERED: ESCITALOPRAM 10 MG PO SCH (09:00)
[2017-08-09] MEDS ORDERED: AMLODIPINE 5 MG TAB PO SCH (09:00)
[2017-08-09] MEDS ORDERED: POTASSIUM CL SA 10 MEQ TAB PO ONE (09:00)
[2017-08-09] MEDS ORDERED: METHIMAZOLE 10 MG PO SCH (09:00)
[2017-08-09] MEDS ORDERED: HOME MED 1 EA UNK (Pregabalin [Lyrica] 300 MG) PO SCH (09:00)
[2017-08-09] MEDS ORDERED: ENOXAPARIN 40 MG/0.4 ML SQ SCH (09:00)
[2017-08-09] MEDS ORDERED: ESCITALOPRAM 20 MG TAB PO SCH (09:00)
[2017-08-09 09:35] LABS: Urine Appearance CLEAR; Urine Bilirubin NEGATIVE (NEG); Urine Blood NEGATIVE (NEG); Urine Color YELLOW; Urine Glucose 1+ (NEG); Urine Protein NEGATIVE (NEG); Urine pH 5.5 (5.0-7.0)
[2017-08-09 09:43] LABS: Urine Microscopic Reflex NO UMIC
--- NOTE | 2017-08-09 10:24 | HP ---
Date of Admission: 08/08/2017 Chief Complaint: Not feeling good. Admitting Diagnosis: Depression. History Of Present Illness: Ms. Ferrell is a pleasant 66-year-old female patient with multiple medi louie problems, came into office today with her and informed me that she has been under a lot o f stress dealing with her 's health and financial situation and her blood pressure has been ru nning high at home. She says she takes her medications regularly as prescribed and lately for last w [place] to 2 weeks she is feeling bad and she is complaining of chest pain that describes as tightness ty pe of feeling in the center of her chest and usually when her blood pressure goes high around 200 sys tolic, and then once it comes down she starts to feel better. The patient says that she has tried ta reji clonidine when the blood pressure goes up and her chest tightness feeling, she feels like, might get worse at that time, so she stopped taking clonidine. In last 2 weeks or so, she was having this chest tightness feeling almost on a daily basis. She was crying at office. Did not know what to do , and after I saw her in the office, decision was made to admit her to hospital. She was advised to follow up with Dr. 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 She was advised to ta ke her hydralazine 50 mg p.o. x1 dose at the office before leaving my office to come to hospital for this admission. Allergies: NO KNOWN ALLERGIES. Medications: Aspirin 81 mg daily, carvedilol 25 mg 2 times a day, Lexapro 10 mg p.o. daily, Humalog insulin 3 times a day per sliding scale, hydralazine 50 mg 3 times a day, Januvia 100 mg daily, Levem ir 60 units 2 times a day, losartan/HCTZ 100/25 one p.o. daily, Lyrica 300 mg 2 times a day, methimaz ole 10 mg daily, and I believe she is not compliant with that medication, and mirtazapine 15 mg p.o. at bedtime. Review of Systems: Cardiovascular: As mentioned above. Psychiatric: As mentioned above. All other systems reviewed and negative. Past Medical History: Significant for hypertension, hyperthyroidism, hyperlipidemia, diverticulosis, diastolic congestive heart failure, coronary artery disease, diabetes mellitus, insomnia. Past Surgical History: Significant for hernia repair, cholecystectomy, ankle surgery, hysterectomy. Family History: Significant for son with history of blood clot. Daughter with end-stage renal disea se, on dialysis, heart disease, hypertension, diabetes. Social History: Negative for smoking and alcohol use. Physical Examination: Vital Signs: Her initial temperature 98.6, pulse 90, respiratory rate 18, blood pressure 196/90, oxy gen saturation 97%, height 5 feet 5 inches, weight 238 pounds. General: Awake, alert, oriented, not in distress. HEENT: Head atraumatic, normocephalic. Conjunctivae nonerythematous. Sclerae white. Mouth, no thr ush or edema noted. Ears/Nose, no mass, lesion, discharge noted. Neck: Supple. No JVD, lymph nodes, bruit, thyromegaly noted. Lungs: Bilateral good equal air entry. Clear to auscultation. No rhonchi. No rales. Heart: Normal heart sounds, no murmur or gallop. Abdomen: Soft, bowel sounds normal. No guarding, rigidity, tenderness, mass, hepatosplenomegaly, dis tention, or bruit noted. Extremities: No leg edema. No calf tenderness. Skin: No rash, ulcer, cellulitis. Lymphatics: No lymph node enlargement in neck, supraclavicular, infraclavicular region. Neuro: No focal neurological deficit. Chest: Unremarkable. External Genitalia: Deferred. Rectal: Deferred. Laboratory Data: White count 5.8, hemoglobin 16.1, platelets 203, sodium 136, potassium 3.8, chlorid e 106, bicarb 25, BUN 13, creatinine 0.80, glucose 249. Liver function tests unremarkable. Troponin less than 0.02, TSH 0.01. Chest x-ray showing cardiomegaly. Impression: 1.Chest pain. 2.Coronary artery disease. 3.Uncontrolled hypertension. 4.Hyperthyroidism. 5.Diabetes mellitus, type 2, uncontrolled. 6.Hyperlipidemia. 7.Coronary artery disease. 8.Chronic diastolic congestive heart failure. 9.Insomnia. 10.Diverticulosis. Plan: Admit the patient to hospital for further evaluation and management of this problem. The gene ent is going to be admitted to telemetry floor. We will continue home medications per order. Consul t Cardiology. We will get echo with Doppler tomorrow morning. Adjust antihypertensive medication. The patient had a cardiac cath done on November 21, 2015 at our hospital and according to that she had 20% stenosis in proximal RCA and about 50% stenosis in distal RCA/PDA. Circumflex and left main as w ell as LAD did not show any stenosis. We will go ahead and monitor fingerstick blood sugar with slid ing scale and insulin per order. Continue antihypertensive medication per order. We will give her t hyroid medication, methimazole. Her prescription is for 10 mg daily. In the past, the patient has i nformed me that she was not taking it regularly and if she is taking regularly will have to increase the dose from 10 mg daily to 10 mg twice a day. We will increase the dose of her antidepressant Darwin pro from 10 mg daily to 20 mg daily. I will see her tomorrow for followup. DVT prophylaxis will be given using Lovenox per order and I will see her in the morning for followup. TONG/MODL Voice ID: [id number]
[2017-08-09] MEDS ORDERED: LORAZEPAM 0.5 MG TABLET PO ONE (10:47)
--- NOTE | 2017-08-09 10:59 | RAD REPORT ---
EXAM DESCRIPTION: RAINA - JO ANN - 08/09/2017 10:41 am CLINICAL HISTORY: Headache, hypertension, syncope COMPARISON: None. TECHNIQUE: Real-time sonographic evaluation of both carotid systems was performed. Grayscale evaluat ion of the vasculature performed. Duplex Doppler interrogation was performed with waveform tracing bi laterally. FINDINGS: Normal high resistance waveforms are noted in both external carotid arteries. The common c arotid arteries and internal carotid arteries show normal low resistance waveforms. Mild calcified and noncalcified atherosclerotic plaquing in each carotid bulb. On visual inspection t his does not result in any significant degree of luminal narrowing. Waveform patterns show no suspici ous finding. Common carotid artery peak velocity values are 102 cm/second on the right and 114 cm/second on the le ft. Internal carotid velocity value Arnoldo range from 47-100 cm/second on the right and 51-73 cm/secon d on the left. ICA/CCA ratios are normal range measuring 1.0 on the right and 0.6 on the left. Antegrade flow seen in both vertebral arteries. Velocity values and ratios were recorded and are retained in the patient's imaging records. IMPRESSION: Mild calcified and noncalcified plaquing changes are identified. No evidence of a hemodynamically significant stenosis.
--- NOTE | 2017-08-09 15:43 | EKG ---
Test Date: 2017-08-08 Test Time: 22:25:22 Cleaning Attendant: RT Augustin MEASUREMENT RESULTS: Intervals: Rate: 82 [place]: 126 QRSD: 152 QT: 432 QTc: 504 [place]: P: 29 [place]: 126 QRS: 1 T: 188 INTERPRETIVE STATEMENTS: Normal sinus rhythm Possible Left atrial enlargement Left bundle branch block Abnormal ECG Compared to ECG 05/02/2017 20:39:15 No significant changes Electronically Signed On 08-09-17 15:41:10 CDT by Roland Burns
--- NOTE | 2017-08-09 15:48 | RAD REPORT ---
EXAM DESCRIPTION: CT - Ct Stroke Brain Wo Cont - 08/09/2017 3:39 pm CLINICAL HISTORY: Headache, hypertension, stroke-like symptoms CLINICAL HISTORY: CT study November 2016 TECHNIQUE: Axial 5 millimeter thick images of the head were obtained without IV contrast. All CT scans are performed using dose optimization technique as appropriate and may include automated exposure control or mA/KV adjustment according to patient size. FINDINGS: No intracranial hemorrhage, mass, or cerebral edema. No acute cortical based infarction. N o significant atrophy change. Patient does have some patchy chronic ischemic change not significantly different from the comparison study. Physiologic calcifications are present. Patient has hyperostosi s along the inner table of the skull as a normal variant. No extra-axial fluid collections. Calderon mat ter-white matter differentiation is preserved. Ventricles are in proportion. Arterial calcifications and physiologic calcifications are present. Paranasal sinuses are clear. No acute sinus finding. IMPRESSION: No hemorrhage, mass, edema or other acute intracranial finding. Patchy chronic ischemic change not significantly different from November 2016. Chronic ischemic change can mask nonhemorrhagic infarction. Followup MR imaging could be performed if the patient is able to tolerate the examination.
--- NOTE | 2017-08-09 16:04 | ECHO ---
HEIGHT: 5 ft 5 in WEIGHT: 238 lb 0 oz DATE OF STUDY: 08/09/[address]: Denis Campos MD 2-DIMENSIONAL: YES M.MODE: YES DOPPLER: YES COLOR FLOW: YES TDS: YES PORTABLE: NO DEFINITY: NO BUBBLE STUDY: NO DIAGNOSIS: HYPERTENSION, CORONARY ARTERY DISEASE CARDIAC HISTORY: CATHERIZATION: NO SURGERY: NO PROSTHETIC VALVE: NO PACEMAKER: NO MEASUREMENTS (cm) DIASTOLIC (NORMALS) SYSTOLIC (NORMALS) IVSd 1.5 (0.6-1.2) LA Diam 4.0 (1.9-4.0) LVEF 55-60% LVIDd 3.6 (3.5-5.7) LVIDs 2.7 (2.0-3.5) %FS % LVPWd 1.6 (0.6-1.2) Ao Diam 3.3 (2.0-3.7) 2 DIMENSIONAL ASSESSMENT: RIGHT ATRIUM: NORMAL LEFT ATRIUM: NORMAL RIGHT VENTRICLE: NORMAL LEFT VENTRICLE: LEFT VENTRICULAR HYPERTROPHY TRICUSPID VALVE: NORMAL MITRAL VALVE: NORMAL PULMONIC VALVE: NORMAL AORTIC VALVE: NORMAL PERICARDIAL EFFUSION: NONE AORTIC ROOT: NORMAL LEFT VENTRICULAR WALL MOTION: DECREASED LEFT VENTRICULAR COMPLIANCE. DOPPLER/COLOR FLOW: MILD TRICUPSID REGURGITATION. COMMENTS: LEFT VENTRICULAR HYPERTROPHY. NORMAL LEFT VENTRICULAR EJECTION FRACTION. DECREASED LEFT VENTRICULAR COMPLIANCE. MILD TRICUPSID REGURGITATION. NORMAL RIGHT VENTRICULAR SYSTOLIC PRESSURE. NO EFFUSION. TECHNOLOGIST: Tiffany RAMIREZ
[2017-08-09 17:19] VITALS: BP 170/82; TEMP 97.2
[2017-08-09] MEDS ORDERED: TRIAZOLAM 0.25 MG PO SCH (21:00)
[2017-08-09] MEDS ORDERED: MIRTAZAPINE 15 MG PO SCH (21:00)
--- NOTE | 2017-08-10 18:13 | DS ---
Date of Discharge: 08/09/2017 Disposition: Discharged to go home. Physical Examination: HEENT: Unremarkable. Lungs: Clear to auscultation. Heart: Sounds normal. Abdomen: Soft, bowel sounds normal. No guarding, rigidity, tenderness, or distention. Extremities: No leg edema. Discharge Medications And Instructions: 1.Continue all prior home medications. 2.Take amlodipine 5 mg twice a day. 3.Doxazosin 2 mg, the patient to take half a tablet 2 times a day. 4.Topamax 25 mg at bedtime. 5.Follow up at my office in 2 weeks. 6.Follow up with Dr. Burns in 2 weeks. Labs And Testing Done During This Hospitalization: Echocardiogram shows ejection fraction 55% to 60% , left ventricular hypertrophy, decreased left ventricular compliance. CAT scan of the head done tod ay without contrast, no evidence of any acute intracranial changes. Carotid Doppler, no evidence of hemodynamically significant stenotic lesion. Around that, large heterogeneous mass or nodule noted i n the right lobe of the thyroid gland and thyroid ultrasound will be done on an outpatient basis. Hospital Course: Ms. Ferrell is a 66-year-old female patient, who was admitted to the hospital with complaints of not feeling good. Please see dictated H and P for more information. After the patien t was evaluated at the office, she was admitted to the hospital. Her MA was ruled out by getting ser ial cardiac enzymes. Her TSH was suppressed. She is supposed to be taking methimazole, but she is n ot compliant with that medication and lately she has not taken it. She is also not taking her Lexapr o that she was supposed to be taking 10 mg daily and she has not been taking it lately. I have advis ed her today and also on multiple prior occasions to be compliant with her medications. Her further workup included echocardiogram as mentioned above. Chest x-ray had shown cardiomegaly. There was no clinical evidence of any congestive heart failure. Her headache and chest tightness type of feeling is likely due to her uncontrolled blood pressure as well as ongoing stress. We did make some adjust ment on her antihypertensive medications and we hope that if she takes her medications regularly, we should see improvement in her blood pressure. I wanted to get an MRI done on her brain today per str josé miguel protocol. Nurse contacted and informed me that the patient wanted some medication prior to MRI. She is claustrophobic, so Ativan was ordered and then subsequently nurse contacted and informed me t hat the patient told nurse that she will not go for MRI unless we put her to sleep to do MRI and at t hat time, we changed order to CAT scan and CAT scan has not shown any acute intracranial changes. I will see her in the outpatient as mentioned above and the patient was instructed to follow up with he r compliance clerk Dr. Burns. Final Diagnoses: 1.Chest pain. 2.Uncontrolled hypertension. 3.Coronary artery disease. 4.Thyroid nodule. 5.Hyperthyroidism. 6.Type 2 diabetes mellitus, uncontrolled. 7.Hyperlipidemia. 8.Chronic diastolic congestive heart failure. 9.Insomnia. 10.Diverticulosis. 11.Noncompliance. TONG/MODL Voice ID: [id number] Report ID: [id number]
== END 2017-08-09 19:15 | disposition home or self-care (01) ==
LOC: 2ND 15:58
PROVIDERS: ADMIT Internal Medicine; ATTEND Internal Medicine
DX: R07.9 Chest pain, unspecified (principal); I25.10 Atherosclerotic heart disease of native coronary artery without angina pectoris; E04.1 Nontoxic single thyroid nodule; E11.65 Type 2 diabetes mellitus with hyperglycemia; E78.5 Hyperlipidemia, unspecified; I11.0 Hypertensive heart disease with heart failure; I50.32 Chronic diastolic (congestive) heart failure; G47.00 Insomnia, unspecified; K57.90 Diverticulosis of intestine, part unspecified, without perforation or abscess without bleeding; Z91.14 Patient's other noncompliance with medication regimen; E05.90 Thyrotoxicosis, unspecified without thyrotoxic crisis or storm
CPT/HCPCS: 36415; 70450; 71046; 80048; 80053; 81003; 82550; 82553; 82962 ×3; 83036; 83735; 84443; 84484 ×2; 85025; 93005; 93306; 93880; G0378; G0379; J1650

== ENCOUNTER 2018-04-04 12:50 | Emergency (ER) | payer OTHER ==
--- OUTSIDE RECORDS SUMMARY | 2018-04-04 12:54 | XMS REPORT | Clinical Summary ---
:1950 Author Organization [facility] Address [address] [place] [address] Care Team Providers Name Role Phone Denis Campos MD Primary Care Provider Allergies No Known Allergies Medications Medication Sig Dispensed Refills Start Date End Date Status ALPRAZolam (XANAX) Take 0.5 mg 0 Active 0.5 MG tablet by mouth 2 (two) times a day as needed for anxiety. butorphanol (STADOL) 1 spray into 0 Active 10 mg/mL nasal spray each nostril every 8 (eight) hours as needed (for Headache). clonIDINE HCl Take 0.2 mg 0 Active (CATAPRES) 0.2 MG by mouth 3 tablet (three) times a day. hydrALAZINE Take 50 mg by 0 Active (APRESOLINE) 50 MG mouth 3 tablet (three) times a day. insulin detemir Inject 60 0 Active U-100 (LEVEMIR) 100 Units under unit/mL injection the skin 2 (two) times a day. losartan-hydrochloro Take 1 tablet 0 Active thiazide (HYZAAR) by mouth 100-25 mg per tablet daily. mirtazapine Take 15 mg by 0 Active (REMERON) 15 MG mouth tablet nightly. pregabalin (LYRICA) Take 300 mg 0 Active 300 MG capsule by mouth 2 (two) times a day. sitaGLIPtin Take 100 mg 0 Active (JANUVIA) 100 MG by mouth tablet every morning. triazolam (HALCION) Take 0.25 mg 0 Active 0.25 MG tablet by mouth nightly. insulin lispro Inject under 0 Active (HumaLOG) 100 the skin 3 unit/mL injection (three) times a day before meals. (PER SLIDING SCALE) carvedilol (COREG) Take 12.5 mg 0 Active 12.5 MG tablet by mouth 2 (two) times a day. metroNIDAZOLE Take 500 mg 0 05/15/2017 Discontinued (FLAGYL) 500 MG by mouth 3 tablet (three) times a day. X 10 days. Started on 05-06-2017 ciprofloxacin Take 500 mg 0 05/15/2017 Discontinued (CIPRO) 500 MG by mouth 2 tablet (two) times a day. X 10 days. Started on 05-06-2017 naproxen sodium Take 220 mg 0 05/15/2017 Discontinued (ALEVE) 220 MG by mouth [...] without perforation or Natalie abscess without Vizcaino, [employer]-C bleeding (Primary Dx) 05/15/2017 Patient Outreach Quality [...] without perforation or Natalie abscess without Vizcaino, [employer] HEL[employer]-C bleeding (Primary Dx) after 04/03/2017 Family History Medical History Relation Name Comments Anesthesia problems Daughter Diabetes Daughter Kidney disease Daughter Arthritis Father Diabetes Father Hypertension Father Stroke Father Relation Name Status Comments Daughter Father Social History Tobacco Use Types Packs/Day Years Used Date Never Smoker Smokeless Tobacco: Never Used Alcohol Use Drinks/Week oz/Week Comments No Sex Assigned at Date Recorded Not on file Job Start Date Occupation Industry Not on file Not on file Not on file Travel History Travel Start Travel End No recent travel history available. Last Filed Vital Signs Vital Sign Reading [...] Health Maintenance Due Date Last Done Comments BREAST CANCER SCREENING 12/18/2001 COLON CANCER SCREENING 12/18/2001 SHINGLES VACCINES (1 of 2) 12/18/2001 PNEUMOCOCCAL POLYSACCHARIDE VACCINE AGE 65 AND OVER 12/18/2016 PNEUMOCOCCAL-13 12/18/2016 INFLUENZA VACCINE 09/14/2017 Procedures Procedure Name Priority Date/Time Associated Comments Diagnosis POC GLUCOSE Routine 05/15/2017 11:22 Results for this AM CDT procedure are in the results section. ZZESTIMATED GFR Routine 05/15/2017 7:36 Results for this [...] CDT procedure are in the results section. ZZESTIMATED GFR Routine 05/15/2017 4:00 Results for this [...] CDT procedure are in the results section. ZZESTIMATED GFR Routine 05/14/2017 4:00 Results for this [...] CDT procedure are in the results section. ZZESTIMATED GFR Routine 05/13/2017 4:00 Results for this [...] CDT procedure are in the results section. ZZESTIMATED GFR STAT 05/12/2017 2:30 Results for this [...] procedure are in the results section. after 04/03/2017 Results POC glucose (05/15/2017 11:22 AM CDT)Only the most recent of12 resultswithin the time period is included. POC glucose 271 (H) 65 - 99 mg/dL [facility] DEPARTMENT OF PATHOLOGY AND Comment: GENOMIC MEDICINE [facility] Notified RN Meter ID: [id number] Art Teacher: Florentino Griffin Performing Organization Address [facility] Phone Number [facility] DEPARTMENT OF PATHOLOGY AND [address] [place] [address] Estimated GFR (05/15/2017 7:36 AM CDT)Only the most recent of5 resultswithin the time period is included. GFR Non Af Amer 72 mL/min/1.73 m2 [facility] DEPARTMENT OF PATHOLOGY AND GENOMIC MEDICINE GFR Af Amer 87 mL/min/1.73 m2 [facility] DEPARTMENT OF Comment: PATHOLOGY AND GENOMIC Chronic [...] Americans. Specimen Plasma specimen Performing Organization Address [facility] Phone Number [facility] DEPARTMENT OF PATHOLOGY AND [address] [place], [place] [id number] [facility] Basic metabolic panel (05/15/2017 7:36 AM CDT)Only the most recent of4 resultswithin the time period is included. Sodium 135 135 - 148 mEq/L [facility] DEPARTMENT OF PATHOLOGY AND GENOMIC MEDICINE Potassium 4.4 3.5 - 5.0 mEq/L [facility] DEPARTMENT OF PATHOLOGY AND GENOMIC MEDICINE Chloride 100 98 - 112 mEq/L [facility] DEPARTMENT OF PATHOLOGY AND GENOMIC MEDICINE CO2 24 24 - 31 mEq/L [facility] DEPARTMENT OF PATHOLOGY AND GENOMIC MEDICINE Anion gap 11 7 - 15 mEq/L [facility] DEPARTMENT OF PATHOLOGY Comment: AND [employer] [facility] Starting from May , anion gap calculation no longer incorporates potassium. Please note the change. BUN 17 8 - 23 mg/dL [facility] DEPARTMENT OF PATHOLOGY AND GENOMIC MEDICINE Creatinine 0.8 0.5 - 0.9 mg/dL [facility] DEPARTMENT OF PATHOLOGY AND GENOMIC MEDICINE Glucose 154 (H) 65 - 99 mg/dL [facility] DEPARTMENT OF PATHOLOGY AND GENOMIC MEDICINE Calcium 9.2 8.8 - 10.2 mg/dL [facility] DEPARTMENT OF PATHOLOGY AND GENOMIC MEDICINE Specimen Plasma specimen Performing Organization Address City/State/Zipcode Phone Number [facility] DEPARTMENT OF PATHOLOGY AND [address] [place] [address] GENOMIC MEDICINE CBC with platelet and differential (05/15/2017 7:26 AM CDT)Only the most recent of5 resultswithin the time period is included. WBC 5.69 4.50 - 11.00 k/uL [facility] DEPARTMENT OF PATHOLOGY AND GENOMIC MEDICINE RBC 4.86 4.20 - 5.50 m/uL [facility] DEPARTMENT OF PATHOLOGY AND GENOMIC MEDICINE HGB 12.6 12.0 - 16.0 g/dL [facility] DEPARTMENT OF PATHOLOGY AND GENOMIC MEDICINE HCT 40.6 37.0 - 47.0 % [facility] DEPARTMENT OF PATHOLOGY AND GENOMIC MEDICINE MCV 83.5 82.0 - 100.0 fL [facility] DEPARTMENT OF PATHOLOGY AND GENOMIC MEDICINE MCH 25.9 (L) 27.0 - 34.0 pg [facility] DEPARTMENT OF PATHOLOGY AND GENOMIC MEDICINE MCHC 31.0 31.0 - 37.0 g/dL [facility] DEPARTMENT OF PATHOLOGY AND GENOMIC MEDICINE RDW - SD 48.0 37.0 - 55.0 fL [facility] DEPARTMENT OF PATHOLOGY AND GENOMIC MEDICINE MPV 10.5 8.8 - 13.2 fL [facility] DEPARTMENT OF PATHOLOGY AND GENOMIC MEDICINE Platelet count 185 150 - 400 k/uL [facility] DEPARTMENT OF PATHOLOGY AND GENOMIC MEDICINE Nucleated RBC 0.00 /100 WBC [facility] DEPARTMENT OF PATHOLOGY AND GENOMIC MEDICINE Neutrophils 48.1 39.0 - 69.0 % [facility] DEPARTMENT OF PATHOLOGY AND GENOMIC MEDICINE Lymphocytes 36.7 25.0 - 45.0 % [facility] DEPARTMENT OF PATHOLOGY AND GENOMIC MEDICINE Monocytes 11.8 (H) 0.0 - 10.0 % [facility] DEPARTMENT OF PATHOLOGY AND GENOMIC MEDICINE Eosinophils 2.5 0.0 - 5.0 % [facility] DEPARTMENT OF PATHOLOGY AND GENOMIC MEDICINE Basophils 0.4 0.0 - 1.0 % [facility] DEPARTMENT OF PATHOLOGY AND GENOMIC MEDICINE Immature granulocytes 0.5Comment: 0.0 - 1.0 % [facility] DEPARTMENT OF "Immature PATHOLOGY AND GENOMIC granulocytes" MEDICINE (promyelocytes, myelocytes, metamyelocytes) Performing Organization Address [facility] Phone Number [facility] DEPARTMENT OF PATHOLOGY AND [address] [place] [address] Phosphorus level (05/15/2017 4:00 AM CDT)Only the most recent of3 resultswithin the time period is included. Phosphorus 3.4 2.4 - 4.5 mg/dL [facility] DEPARTMENT OF PATHOLOGY AND GENOMIC MEDICINE Specimen Plasma specimen Performing Organization Address City/[facility] Phone Number [facility] DEPARTMENT OF PATHOLOGY AND [address] [place] [address] Magnesium level (05/15/2017 4:00 AM CDT)Only the most recent of3 resultswithin the time period is included. Magnesium 2.0 1.6 - 2.4 mg/dL [facility] DEPARTMENT OF PATHOLOGY AND GENOMIC MEDICINE Specimen Plasma specimen Performing Organization Address [facility] Phone Number [facility] DEPARTMENT OF PATHOLOGY AND [address] [place] [address] CT Abdomen Pelvis Wo Contrast (05/12/2017 6:13 PM CDT) Narrative Performed At EXAMINATION:CT ABDOMEN PELVIS WO [...] without evidence of abscess or free air [facility]-[id number] Procedure Note Interface, Radiology Results Incoming - 05/12/2017 6:24 PM [...] without evidence of abscess or free air [facility]-[id number] Performing Organization Address [facility] [place] [address] ALT (SGPT) (05/12/2017 3:35 PM CDT) ALT 18 5 - 50 U/L [facility] DEPARTMENT OF PATHOLOGY AND GENOMIC MEDICINE Specimen Plasma specimen Performing Organization Address [facility] Phone Number [facility] DEPARTMENT OF PATHOLOGY AND [address] [place] [address] AST (SGOT) (05/12/2017 3:35 PM CDT) AST 21 10 - 35 U/L [facility] DEPARTMENT OF PATHOLOGY AND GENOMIC MEDICINE Specimen Plasma specimen Performing Organization Address [facility] Phone Number [facility] DEPARTMENT OF PATHOLOGY AND [address] [place] [address] Potassium level (05/12/2017 3:35 PM CDT) Potassium 4.0 3.5 - 5.0 mEq/L [facility] DEPARTMENT OF PATHOLOGY AND GENOMIC MEDICINE Specimen Plasma specimen Performing Organization Address [facility] Phone Number [facility] DEPARTMENT OF PATHOLOGY AND [address] [place] [address] Alkaline phosphatase (05/12/2017 3:35 PM CDT) Alkaline phosphatase 99 35 - 104 U/L [facility] DEPARTMENT OF PATHOLOGY AND GENOMIC MEDICINE Specimen Plasma specimen Performing Organization Address City/[facility] Phone Number [facility] DEPARTMENT OF PATHOLOGY AND [address] [place] [address] MEDICINE Gram stain (05/12/2017 3:24 PM CDT) Gram stain result No WBC's [facility] DEPARTMENT OF PATHOLOGY Occasional Gram positive rods AND GENOMIC MEDICINE Comment: Specimen Information Specimen Source: Urine Specimen Site: Clean catch Specimen Urine Performing Organization Address City/[facility] Phone Number [facility] DEPARTMENT OF PATHOLOGY AND [address] [place] [phone] [place] [address] Urine culture (05/12/2017 3:24 PM CDT) Urine culture isolate Mixed Gram positive vitaliy [facility] DEPARTMENT OF 10-5 cfu/ml PATHOLOGY AND GENOMIC (A) MEDICINE Comment: Specimen Information Specimen Source: Urine Specimen Site: Clean catch Specimen Urine Performing Organization Address [facility] Phone Number [facility] DEPARTMENT OF PATHOLOGY AND [address] [place] [address] Urinalysis screen and microscopy, with reflex to culture (05/12/2017 3:18 PM CDT) Specimen site Clean catch [facility] DEPARTMENT OF PATHOLOGY AND GENOMIC MEDICINE Color, UA Straw [facility] DEPARTMENT OF PATHOLOGY AND GENOMIC MEDICINE Appearance, UA Clear [facility] DEPARTMENT OF PATHOLOGY AND GENOMIC MEDICINE Specific gravity, UA 1.021 1.001 - 1.035 [facility] DEPARTMENT OF PATHOLOGY AND GENOMIC MEDICINE pH, UA 5.0 5.0 - 8.5 [facility] DEPARTMENT OF PATHOLOGY AND GENOMIC MEDICINE Protein, UA Negative Negative [facility] DEPARTMENT OF PATHOLOGY AND GENOMIC MEDICINE Glucose, UA 3+ (A) Negative [facility] DEPARTMENT OF PATHOLOGY AND GENOMIC MEDICINE Ketones, UA Negative Negative [facility] DEPARTMENT OF PATHOLOGY AND GENOMIC MEDICINE Bilirubin, UA Negative Negative [facility] DEPARTMENT OF PATHOLOGY AND GENOMIC MEDICINE Blood, UA Small (A) Negative [facility] DEPARTMENT OF PATHOLOGY AND GENOMIC MEDICINE Nitrite, UA Negative Negative [facility] DEPARTMENT OF PATHOLOGY AND GENOMIC MEDICINE Urobilinogen, UA <2.0 <2.0 [facility] DEPARTMENT OF PATHOLOGY AND GENOMIC MEDICINE Leukocyte esterase, UA Moderate (A) Negative [facility] DEPARTMENT OF PATHOLOGY AND GENOMIC MEDICINE Epithelial cells, UA 3 /HPF [facility] DEPARTMENT OF PATHOLOGY AND GENOMIC MEDICINE WBC, UA 8 (H) 0 - 4 /HPF [facility] DEPARTMENT OF PATHOLOGY AND GENOMIC MEDICINE RBC, UA 4 (H) 0 - 2 /HPF [facility] DEPARTMENT OF PATHOLOGY AND GENOMIC MEDICINE Bacteria, UA Few None seen [facility] DEPARTMENT OF PATHOLOGY AND GENOMIC MEDICINE Yeast, UA None seen [facility] DEPARTMENT OF PATHOLOGY AND GENOMIC MEDICINE Yeast with pseudohyphae, UA None seen [facility] DEPARTMENT OF PATHOLOGY AND GENOMIC MEDICINE Specimen Urine Performing Organization Address City/[facility]/Zipcode Phone Number [facility] DEPARTMENT OF PATHOLOGY AND [address] [place] [phone] GENOMIC MEDICINE Smear review (05/12/2017 2:30 PM CDT) Platelet slide review Bridget adequate [facility] DEPARTMENT OF PATHOLOGY AND GENOMIC MEDICINE Polychromasia Moderate [facility] DEPARTMENT OF PATHOLOGY AND GENOMIC MEDICINE Enlarged platelets Moderate (A) [facility] DEPARTMENT OF PATHOLOGY AND GENOMIC MEDICINE Narrative Performed At Unable to perform testing, specimen is [facility] DEPARTMENT OF PATHOLOGY AND GENOMIC HEMOLYZED. Recollect MEDICINE requested for K, AST, ALT, ALP (tests).TRICIA MARIANELA/ADRIAN notified by [employer] at05/12/201715:25. Performing Organization Address City/[facility] Phone Number [facility] DEPARTMENT OF PATHOLOGY AND [address] [place] [phone] [facility] Partial thromboplastin time, activated (05/12/2017 2:30 PM CDT) PTT 22.2 (L) 23.0 - 36.0 sec [facility] DEPARTMENT OF PATHOLOGY Comment: AND [facility] PTT therapeutic range for unfractionated heparin is 61.0-112.0 seconds which corresponds to Anti-Xa 0.3-0.7 U/ml. Specimen Blood Narrative Performed At Unable to perform testing, specimen is [facility] DEPARTMENT OF PATHOLOGY AND GENOMIC HEMOLYZED. Recollect MEDICINE requested for K, AST, ALT, ALP (tests).TRICIA MARIANELA/ADRIAN notified by [employer] at05/12/201715:25. Performing Organization Address City/State/Zipcode Phone Number [facility] DEPARTMENT OF PATHOLOGY AND [address] [place], [place] [phone] [facility] Prothrombin time with INR (05/12/2017 2:30 PM CDT) Prothrombin time 13.8 12.0 - 15.0 sec [facility] DEPARTMENT OF PATHOLOGY AND GENOMIC MEDICINE INR 1.0 [facility] DEPARTMENT OF Comment: PATHOLOGY AND GENOMIC The International Normalized Ratio (INR) is a therapeutic MEDICINE monitoring tool for patients who are stable on oral anticoagulant therapy. An INR of 2.0-3.0 is suggested for deep vein thrombosis/pulmonary embolism. Specimen Blood Performing Organization Address City/State/Zipcode Phone Number [facility] DEPARTMENT OF PATHOLOGY AND [address] [place] [address] [facility] MEDICINE Comprehensive metabolic panel (05/12/2017 2:30 PM CDT) Sodium 140 135 - 148 mEq/L [facility] DEPARTMENT OF PATHOLOGY AND GENOMIC MEDICINE Potassium SEE COMMENT 3.5 - 5.0 mEq/L [facility] DEPARTMENT OF Comment: PATHOLOGY AND GENOMIC Footnote--------- MEDICINE Unable to perform testing, specimen is HEMOLYZED. Chloride 104 98 - 112 mEq/L [facility] DEPARTMENT OF PATHOLOGY AND GENOMIC MEDICINE CO2 22 (L) 24 - 31 mEq/L [facility] DEPARTMENT OF PATHOLOGY AND GENOMIC MEDICINE Anion gap 14 7 - 15 mEq/L [facility] DEPARTMENT OF Comment: PATHOLOGY AND GENOMIC Starting from May , anion gap calculation MEDICINE no longer incorporates potassium. Please note the change. BUN 17 8 - 23 mg/dL [facility] DEPARTMENT OF PATHOLOGY AND GENOMIC MEDICINE Creatinine 0.6 0.5 - 0.9 mg/dL [facility] DEPARTMENT OF PATHOLOGY AND GENOMIC MEDICINE Glucose 259 (H) 65 - 99 mg/dL [facility] DEPARTMENT OF PATHOLOGY AND GENOMIC MEDICINE Calcium 9.4 8.8 - 10.2 mg/dL [facility] DEPARTMENT OF PATHOLOGY AND GENOMIC MEDICINE Protein 7.6 6.3 - 8.3 g/dL [facility] DEPARTMENT OF Comment: PATHOLOGY AND GENOMIC 4.6-7.0 g/dL MEDICINE 1 week 4.4-7.6 g/dL 7 months-1year5.1-7.3 g/dL 1-2 years5.6-7.5 g/dL >3 years6.0-8.0 g/dL 18-150 6.3-8.3 g/dL Albumin 3.1 (L) 3.5 - 5.0 g/dL [facility] DEPARTMENT OF PATHOLOGY AND GENOMIC MEDICINE A/G ratio 0.7 0.7 - 3.8 [facility] DEPARTMENT OF PATHOLOGY AND GENOMIC MEDICINE Alkaline phosphatase SEE COMMENTComment: 35 - 104 U/L [facility] DEPARTMENT OF Footnote--------- PATHOLOGY AND GENOMIC MEDICINE AST SEE COMMENTComment: 10 - 35 U/L [facility] DEPARTMENT OF Footnote--------- PATHOLOGY AND GENOMIC MEDICINE ALT SEE COMMENTComment: 5 - 50 U/L [facility] DEPARTMENT OF Footnote--------- PATHOLOGY AND GENOMIC MEDICINE Total bilirubin 0.3 0.0 - 1.2 mg/dL [facility] DEPARTMENT OF PATHOLOGY AND GENOMIC MEDICINE Specimen Plasma specimen Performing Organization Address [facility] Facility[facility] Phone Number [facility] DEPARTMENT OF PATHOLOGY AND [address] [place] [address] [facility] MEDICINE ECG 12 lead (05/12/2017 1:39 PM CDT) Ventricular rate 84 [facility] MUSE Atrial rate 84 [facility] MUSE DE interval 142 [facility] MUSE QRSD interval 158 [facility] QT interval 438 [facility] QTC interval 517 [facility] MUSE P axis 1 63 [facility]USE QRS axis 1 -1 [facility] MUSE T wave axis 56 [facility] MUSE EKG impression Normal sinus rhythm-Left bundle branch [facility] MUSE block-Abnormal ECG-In automated comparison with ECG of 26-APR-2012 05:35,-premature atrial complexes are no longer present- Performing Organization Address [facility] Facility[facility] Phone Number [place] [address] [place] [address] after 04/03/2017 Insurance Payer Benefit Plan / Group Subscriber ID Type Phone Address [employer] MEDICARE [employer] MEDICARE PPO/PFFS/ERS [facility] xxxxxxxxx PPO Advance Directives Patient has advance care planning documents on file. For more information, please contact:Lupillo Peters[address] [place] [address]
[2018-04-04] MEDS ORDERED: HYDROCODONE/APAP 5/325 MG TAB ONE ×2 (14:12→15:03)
[2018-04-04] MEDS ORDERED: PROMETHAZINE 25 MG TABLET ONE (14:19)
--- NOTE | 2018-04-04 14:24 | RAD REPORT ---
EXAM DESCRIPTION: RAD - Hip Right 2 View - 04/04/2018 2:16 pm CLINICAL HISTORY: hip pain, fall Fall, right hip pain COMPARISON: No comparisons FINDINGS: No acute fracture or dislocation is seen.
--- NOTE | 2018-04-04 14:36 | RAD REPORT ---
EXAM DESCRIPTION: RAD - Pelvis - 04/04/2018 2:30 pm CLINICAL HISTORY: fall Fall, right-sided pain COMPARISON: No comparisons FINDINGS: Mild degenerative change involves both hip joints. No acute fracture or dislocation is see n. Cholecystectomy clips.
--- NOTE | 2018-04-04 15:05 | ER ---
Nurse's Notes [facility] Name: Blanka Ferrell Age: 67 yrs Sex: Female : 1950 Arrival Date: 04/04/2018 Time: 12:53 Bed 28 Private MD: Diagnosis: Other sprain of right hip;Migraine Presentation: 04/04 13:00 Presenting complaint: Right hip pain 10 after mechanical fall from standing hb yesterday. Transition of care: patient was not received from another setting of care. Onset of symptoms was April 03, 2018. Risk Assessment: Do you want to hurt yourself or someone else? Patient reports no desire to harm self or others. Care prior to arrival: None. 13:00 Method Of Arrival: Wheelchair hb 13:00 Acuity: THALIA 4 hb 13:10 Initial Sepsis Screen: Does the patient meet any 2 criteria? No. Patient's initial ca1 sepsis screen is negative. Does the patient have a suspected source of infection? No. Patient's initial sepsis screen is negative. Historical: - Allergies: 13:02 Imitrex; hb - Home Meds: 13:02 carvedilol 25 mg Oral tab 2 tab daily [Active]; clonidine HCl 0.2 mg Oral tab as needed hb [Active]; Humalog Sub-Q [Active]; Hydralazine Oral [Active]; Levemir subcutaneous [Active]; losartan-hydrochlorothiazide 100-25 mg Oral tab 1 tab once daily [Active]; Lyrica Oral [Active]; Phenergan Oral [Active]; - PMHx: 13:02 Anxiety; Diabetes - IDDM; Hypertension; Migraines; Thyroid problem; hb - PSHx: 13:02 Hysterectomy; hb - Immunization history:: Adult Immunizations up to date. - Social history:: Smoking status: Patient/guardian denies using tobacco. - Ebola Screening: : No symptoms or risks identified at this time. Screenin:05 Abuse screen: Denies threats or abuse. Denies injuries from another. Nutritional ca1 screening: No deficits noted. Tuberculosis screening: No symptoms or risk factors identified. Fall Risk Ambulatory Aid- Crutches/Cane/Walker (15 pts). Assessment: 13:05 General: Appears in no apparent distress. uncomfortable, Behavior is calm, cooperative, ca1 appropriate for age. Pain: Complains of pain in right low back Pain currently is 4 out of 10 on a pain scale. at worst was 8 out of 10 on a pain scale. Aggravated by weight bearing. Neuro: Level of Consciousness is awake, alert, obeys commands, Oriented to person, place, time, situation. Cardiovascular: Heart tones S1 S2 present Capillary refill < 3 seconds Patient's skin is warm and dry. Respiratory: Airway is patent Respiratory effort is even, unlabored, Respiratory pattern is regular, symmetrical. GI: No signs and/or symptoms were reported involving the gastrointestinal system. : No signs and/or symptoms were reported regarding the genitourinary system. EENT: No signs and/or symptoms were reported regarding the EENT system. Derm: Skin is intact, Skin is pink, warm \T\ dry. Musculoskeletal: Circulation, motion, and sensation intact. Range of motion: limited in right hip. 14:03 Reassessment: Patient appears in no apparent distress at this time. Patient and/or ca1 family updated on plan of care and expected duration. Pain level reassessed. Patient is alert, oriented x 3, equal unlabored respirations, skin warm/dry/pink. X-ray at bedside. 14:56 Reassessment: Patient appears in no apparent distress at this time. Patient and/or ca1 family updated on plan of care and expected duration. Pain level reassessed. Patient is alert, oriented x 3, equal unlabored respirations, skin warm/dry/pink. GITA Gross at bedside. Vital Signs: 13:01 BP 172 / 102; Pulse 100; Resp 18; Temp 97.9; Pulse Ox 100% on R/A; Pain 7/10; hb 13:45 BP 160 / 102; Pulse 101; Resp 19; Pulse Ox 95% on R/A; ca1 14:56 BP 155 / 98; Pulse 94; Resp 19; Pulse Ox 99% on R/A; ca1 ED Course: 12:53 Patient arrived in ED. as 13:01 Triage completed. hb 13:02 Arm band placed on. hb 13:05 Patient has correct armband on for positive identification. Bed in low position. Call ca1 light in reach. Side rails up X 1. Pulse ox on. NIBP on. Warm blanket given. 13:08 [facility] 13:09 Murray Murphy MD is Attending Physician. [facility] 13:20 Hailey Shanks, RN is Primary Nurse. ca1 14:18 Hip Right 2 View XRAY In Process Unspecified. EDMS 14:30 X-ray completed. Patient tolerated procedure poorly. jb2 14:31 Pelvis XRAY In Process Unspecified. EDMS 15:03 Simba Gonzalez MD is Referral Physician. jmm 15:11 No provider procedures requiring assistance completed. Patient did not have IV access ca1 during this emergency room visit. Administered Medications: 14:10 CANCELLED (Patient Refused): [place] 5 mg-325 mg 1 tabs PO once ca1 14:10 Drug: Phenergan 25 mg Route: PO; ca1 14:54 Follow up: Response: No adverse reaction ca1 14:53 Drug: [place] 5 mg-325 mg 1 tabs Route: PO; ca1 15:10 Follow up: Response: No adverse reaction; Pain is decreased ca1 Outcome: 15:04 Discharge ordered by MD. jmm 15:11 Discharged to home via wheelchair. ca1 15:11 Condition: stable 15:11 Discharge instructions given to patient, Instructed on discharge instructions, follow up and referral plans. medication usage, Demonstrated understanding of instructions, follow-up care, medications, Prescriptions given X 1. 15:11 Patient left the ED. ca1 Signatures: Dispatcher [employer] EDAR Galo Quiñones PA PA [facility] Erick London jb2 Sendy Oneil Heather, RE GRIMALDO Hailey Shanks RN RN ca1 Corrections: (The following items were deleted from the chart) 13:34 13:05 Fall Risk None identified. ca1 ca1 14:10 14:03 Freedom 5 mg-325 mg 1 tabs PO ca1 ca1
--- NOTE | 2018-04-04 15:05 | EDPHYS ---
Physician Documentation [facility] Name: Blanka Ferrell Age: 67 yrs Sex: Female : 1950 Arrival Date: 04/04/2018 Time: 12:53 Bed 28 Private MD: ED Physician Murray Murphy HPI: 04/04 13:16 This 67 yrs old Black Female presents to ER via Wheelchair with complaints of Fall jmm Injury, Hip Pain. 13:16 Details of fall: The patient fell from an upright position, while walking. Onset: The jmm symptoms/episode began/occurred acutely, yesterday. This is a 67 year old female with a history of fm, htn that presents to the ED with complaints of right hip pain after slipping on spilled detergent. Patient denies head injury. Pain is exacerbated on weight bearing. . Historical: - Allergies: 13:02 Imitrex; hb - Home Meds: 13:02 carvedilol 25 mg Oral tab 2 tab daily [Active]; clonidine HCl 0.2 mg Oral tab as needed hb [Active]; Humalog Sub-Q [Active]; Hydralazine Oral [Active]; Levemir subcutaneous [Active]; losartan-hydrochlorothiazide 100-25 mg Oral tab 1 tab once daily [Active]; Lyrica Oral [Active]; Phenergan Oral [Active]; - PMHx: 13:02 Anxiety; Diabetes - IDDM; Hypertension; Migraines; Thyroid problem; hb - PSHx: 13:02 Hysterectomy; hb - Immunization history:: Adult Immunizations up to date. - Social history:: Smoking status: Patient/guardian denies using tobacco. - Ebola Screening: : No symptoms or risks identified at this time. ROS: 13:16 Constitutional: Negative for fever, chills, and weight loss, Cardiovascular: Negative jmm for chest pain, palpitations, and edema, Respiratory: Negative for shortness of breath, cough, wheezing, and pleuritic chest pain. 13:16 MS/extremity: Positive for pain. 13:16 Neuro: Positive for headache. 13:16 All other systems are negative. Exam: 13:16 Constitutional: This is a well developed, well nourished patient who is awake, alert, jmm and in no acute distress. Head/Face: atraumatic. Eyes: EOMI, no conjunctival erythema appreciated ENT: Moist Mucus Membranes Neck: Trachea midline, Supple Chest/axilla: Normal chest wall appearance and motion. Cardiovascular: Regular rate and rhythm. No edema appreciated Respiratory: Normal respirations, no respiratory distress appreciated Abdomen/GI: Non distended, soft Back: Normal ROM Skin: General appearance color normal MS/ Extremity: Moves all extremities, no obvious deformities appreciated, no edema noted to the lower extremities 13:16 Musculoskeletal/extremity: right groin ttp, full passive flexion appreciated with minimal pain, compartments are soft, NVI. 13:16 Neuro: Orientation: is normal, Mentation: is normal, Memory: is normal. 13:16 Psych: Behavior/mood is pleasant, cooperative. Vital Signs: 13:01 BP 172 / 102; Pulse 100; Resp 18; Temp 97.9; Pulse Ox 100% on R/A; Pain 7/10; hb 13:45 BP 160 / 102; Pulse 101; Resp 19; Pulse Ox 95% on R/A; ca1 14:56 BP 155 / 98; Pulse 94; Resp 19; Pulse Ox 99% on R/A; ca1 MDM: 13:14 Patient medically screened. [facility] 15:01 Data reviewed: vital signs, nurses notes. Counseling: I had a detailed discussion with [facility] the patient and/or guardian regarding: the historical points, exam findings, and any diagnostic results supporting the discharge/admit diagnosis, radiology results, the need for outpatient follow up, to return to the emergency department if symptoms worsen or persist or if there are any questions or concerns that arise at home. ED course: Xray negative. Patient advised to follow up with orthopedics for further evaluation. Patient given return precautions for worsening pain. Patient is NVI. PATIENT EXHIBITED DRUG SEEKING BEHAVIOR FOR MIGRAINE WHICH WAS A SECONDARY COMPLAINT. Headache is similar to previous migraines and patient was advised to follow up with neurology for further evaluation. . 04/04 13:14 Order name: Pelvis XRAY; Complete Time: 14:42 [facility] 04/04 13:14 Order name: Hip Right 2 View XRAY; Complete Time: 14:32 [facility] Administered Medications: 14:10 CANCELLED (Patient Refused): [place] 5 mg-325 mg 1 tabs PO once ca1 14:10 Drug: Phenergan 25 mg Route: PO; ca1 14:54 Follow up: Response: No adverse reaction ca1 14:53 Drug: [place] 5 mg-325 mg 1 tabs Route: PO; ca1 15:10 Follow up: Response: No adverse reaction; Pain is decreased ca1 Disposition: 04/04/18 15:04 Discharged to Home. Impression: Other sprain of right hip, Migraine. - Condition is Stable. - Discharge Instructions: Migraine Headache, Hip Pain. - Prescriptions for orphenadrine citrate 100 mg Oral Tablet Sustained Release - take 1 tablet by ORAL route 2 times per day As needed; 20 tablet. - Medication Reconciliation Form, Thank You Letter, Antibiotic Education, Prescription Opioid Use form. - Follow up: Simba Gonzalez MD; When: 2 - 3 days; Reason: Recheck today's complaints, Continuance of care, Re-evaluation by your physician. Addendum: 04/06/2018 21:01 Co-signature as Attending Physician, Murray Murphy MD. g s Signatures: Dispatcher [employer] EDMS Galo Quiñones PA PA jmm Baxter, Heather, RN RN Murray Murphy MD MD Hailey Shanks RN RN ca1 Corrections: (The following items were deleted from the chart) 04/04 14:10 13:49 [place] 5 mg-325 mg 1 tabs PO once ordered. jmm ca1 14:10 14:03 [place] 5 mg-325 mg 1 tabs PO once given. ca1 ca1 14:10 14:10 [place] 5 mg-325 mg 1 tabs PO once ordered. ca1 ca1 15:11 15:04 04/04/2018 15:04 Discharged to Home. Impression: Other sprain of right hip; ca1 Migraine. Condition is Stable. Forms are Medication Reconciliation Form, Thank You Letter, Antibiotic Education, Prescription Opioid Use. Follow up: Simba Gonzalez; When: 2 - 3 days; Reason: Recheck today's complaints, Continuance of care, Re-evaluation by your physician. fabian
[2018-04-04 15:45] VITALS: TEMP 97.9
[2018-04-04 15:47] VITALS: BP 155/98; O2SAT 99
== END 2018-04-04 15:11 | disposition home or self-care (01) ==
LOC: ER 12:50
DX: S73.101A Unspecified sprain of right hip, initial encounter (principal); W01.0XXA Fall on same level from slipping, tripping and stumbling without subsequent striking against object, initial encounter; G43.909 Migraine, unspecified, not intractable, without status migrainosus; F41.9 Anxiety disorder, unspecified; E11.9 Type 2 diabetes mellitus without complications; I10 Essential (primary) hypertension; Z79.4 Long term (current) use of insulin; Z88.8 Allergy status to other drugs, medicaments and biological substances
CPT/HCPCS: 72170; 99284

== ENCOUNTER 2018-10-29 08:31 | Emergency (ER) | payer OTHER ==
--- OUTSIDE RECORDS SUMMARY | 2018-10-29 08:34 | XMS REPORT | Summary of Care ---
:1950 Author Organization [address] [address] Care Team Providers Name Role Phone Unavailable Primary Care Provider Unavailable Reason for Visit Reason Comments Refill Request Encounter Details Date Type Department Care Team Description 09/08/2018 Refill [facility] Efraín Carter MD Refill Request Neurology-[address] [place] [id number] [address] [place] [address] [phone] Allergies No Known Allergiesdocumented as of this encounter (statuses as of 09/08/2018) Medications Medication Sig Dispensed Refills Start Date End Date Status methIMAzole 10 mg Take 10 mg by 6 06/07/2018 Active tablet mouth daily. pregabalin 300 mg Take 300 mg 0 Active capsule by mouth. hydrALAZINE 50 mg Take 50 mg by 0 Active tablet mouth. losartan-hydrochloro Take by 0 Active thiazide 100-25 mg mouth. per tablet hydrALAZINE 100 mg TAKE 1 TABLET 3 05/30/2018 Active tablet BY MOUTH THREE TIMES A DAY WITH FOOD spironolactone 25 mg Take 25 mg by 3 05/05/2018 Active tablet mouth daily. doxazosin 2 mg TAKE 0.5 3 06/05/2018 Active tablet TABLET BY 2 TIMES EVERY DAY carvedilol 12.5 mg Take 25 mg by 0 Active tablet mouth. acetaminophen Take 500 mg 0 Active (TYLENOL EXTRA by mouth STRENGTH) 500 mg every 6 (six) tablet hours as needed for Pain. aspirin-acetaminophe Take 1 tablet 0 Active n-caffeine (EXCEDRIN by mouth MIGRAINE) 250-250-65 every 6 (six) mg per tablet hours as needed for Pain. nitroglycerin [address] 0.3 mg 0 Active sublingual tablet under the tongue every 5 (five) minutes as needed for Chest pain. insulin detemir inject 60 0 Active U-100 100 unit/mL Units under injection the skin. insulin lispro, inject under 0 Active human, 100 unit/mL the skin. injection butorphanol 10 mg/mL Use 1 [place] 2.5 mL 1 08/21/2018 Active nasal in each sprayIndications: nostril every Chronic tension-type 8 (eight) headache, hours as intractable needed for Pain. BUSPIRONE 5 mg TAKE 1 TABLET 60 tablet 4 09/08/2018 Active tabletIndications: BY MOUTH Chronic tension-type TWICE A DAY headache, intractable busPIRone 5 mg Take 1 tablet 60 tablet 1 06/27/2018 09/08/2018 Discontinued tabletIndications: by mouth 2 Chronic tension-type (two) times headache, daily. intractable documented as of this encounter (statuses as of 09/08/2018) Active Problems Not on filedocumented as of this encounter (statuses as of 09/08/2018) Social History Tobacco Use Types Packs/Day Years Used Date Never Smoker Alcohol Use Drinks/Week oz/Week Comments No Sex Assigned at Date Recorded Not on file Job Start Date Occupation Industry Not on file Not on file Not on file Travel History Travel Start Travel End No recent travel history available. documented as of this encounter Last Filed Vital Signs Not on filedocumented in this encounter Plan of Treatment Date Type Specialty Care Team Description 12/29/2018 Office Visit Neurology Efraín Carter MD [address] [place] [id number] Health Maintenance Due Date Last Done Comments HEPATITIS C (HCV) SCREEN 1950 HgA1C 12/18/1951 CREATININE (SERUM) 12/18/1961 EYE EXAM 12/18/1961 LDL-C 12/18/1961 URINE MICROALBUMIN 12/18/1961 FOOT EXAM 12/18/1969 DTaP,Tdap,and Td Vaccines (1 - Tdap) 12/18/1970 MAMMOGRAM 1991 COLONOSCOPY 12/18/2001 Zoster Recombinant Vaccine (SHINGRIX) (1 of 2) 12/18/2001 Medicare Wellness Visit 12/18/2016 Osteoporosis Screening 12/18/2016 PNEUMOCOCCAL VACCINES 65+ (1 of 2 - PCV13) 12/18/2016 INFLUENZA VACCINE 10/15/2018 documented as of this encounter Results Not on filedocumented in this encounter Visit Diagnoses Diagnosis Chronic tension-type headache, intractable Chronic tension type headache documented in this encounter Insurance Payer Benefit Plan / Group Subscriber ID Effective Dates Phone Address Type AETNA AETNA INDEMNITY [id number] 2017-Present Indemnity documented as of this encounter
--- OUTSIDE RECORDS SUMMARY | 2018-10-29 08:34 | XMS REPORT | Clinical Summary ---
:1950 Author Organization [facility] Address [address] [place] [address] Care Team Providers Name Role Phone Denis Campos MD Primary Care Provider Allergies No Known Allergies Medications Medication Sig Dispensed Refills Start Date End Date Status ALPRAZolam (XANAX) 0.5 Take 0.5 mg by 0 Active MG tablet mouth 2 (two) times a day as needed for anxiety. butorphanol (STADOL) 1 spray into each 0 Active 10 mg/mL nasal spray nostril every 8 (eight) hours as needed (for Headache). clonIDINE HCl Take 0.2 mg by 0 Active (CATAPRES) 0.2 MG mouth 3 (three) tablet times a day. hydrALAZINE Take 50 mg by 0 Active (APRESOLINE) 50 MG mouth 3 (three) tablet times a day. insulin detemir U-100 Inject 60 Units 0 Active (LEVEMIR) 100 unit/mL under the skin 2 injection (two) times a day. losartan-hydrochloroth Take 1 tablet by 0 Active iazide (HYZAAR) 100-25 mouth daily. mg per tablet mirtazapine (REMERON) Take 15 mg by 0 Active 15 MG tablet mouth nightly. pregabalin (LYRICA) Take 300 mg by 0 Active 300 MG capsule mouth 2 (two) times a day. sitaGLIPtin (JANUVIA) Take 100 mg by 0 Active 100 MG tablet mouth every morning. triazolam (HALCION) Take 0.25 mg by 0 Active 0.25 MG tablet mouth nightly. insulin lispro Inject under the 0 Active (HumaLOG) 100 unit/mL skin 3 (three) injection times a day before meals. (PER SLIDING SCALE) carvedilol (COREG) Take 12.5 mg by 0 Active 12.5 MG tablet mouth 2 (two) times a day. Active Problems Problem Noted Date Morbid obesity with BMI of 40.0-44.9, adult 05/13/2017 Diverticulitis of intestine 05/12/2017 Family History Medical History Relation Name Comments [...] travel history available. Last Filed Vital Signs Not on file Plan of Treatment Health Maintenance Due Date Last Done Comments BREAST CANCER SCREENING 12/18/2001 COLONOSCOPY SCREENING 12/18/2001 SHINGLES VACCINES (#1) 12/18/2001 65+ PNEUMOCOCCAL VACCINE (1 of 2 - PCV13) 12/18/2016 INFLUENZA VACCINE 09/14/2018 Results Not on fileafter 10/28/2017 Insurance Payer Benefit Plan / Subscriber ID Effective Dates Phone Address Type Group HUMANA MEDICARE HUMANA MEDICARE xxxxxxxxx 2017-Present PPO PPO/PFFS/[facility] Advance Directives For more information, please contact: [phone] Type Date Recorded 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
--- OUTSIDE RECORDS SUMMARY | 2018-10-29 08:34 | XMS REPORT ---
:1950 Author Organization [facility] Address [address] [place] [address] Dr. Estrada [address] [place] [id number] Care Team Providers Name Role Phone Unavailable Unavailable Unavailable Problems This patient has no known problems. Allergies, Adverse Reactions, Alerts This patient has no known allergies or adverse reactions. Medications This patient has no known medications.
[2018-10-29] MEDS ORDERED: MORPHINE 4 MG/ML SYR ONE (08:51)
[2018-10-29] MEDS ORDERED: ONDANSETRON 4 MG/2 ML VIAL ONE ×2 (08:51→11:41)
[2018-10-29] MEDS ORDERED: FAMOTIDINE 20 MG/2 ML VIAL IV ONE (08:51)
[2018-10-29 09:10] LABS: Absolute Lymphocytes (CBC) 0.9 K/uL (0.7-4.9); Basophils % 0.9 % (0-1.3); Hematocrit 45.5 % (36.0-45.0); Lymphocytes % 12.7 % (15.3-44.8); MPV 8.9 fL (7.6-11.3); RBC Red Blood Cell Count 5.49 M/uL (3.86-4.86)
[2018-10-29] MEDS ORDERED: NA CHLORIDE 0.9% 1,000 ML ONE (09:13)
[2018-10-29 09:26] LABS: Albumin 3.7 g/dL (3.4-5.0); Bilirubin Direct 0.1 mg/dL (0-0.2); Bilirubin Total 0.4 mg/dL (0.2-1.0); Potassium 3.8 mmol/L (3.5-5.1); Protein, Total 8.7 g/dL (6.4-8.2)
[2018-10-29 09:27] LABS: Magnesium 1.5 mg/dL (1.8-2.4); NT PRO-BNP 1029 pg/mL (<125); Troponin I < 0.02 ng/mL (0.0-0.045)
[2018-10-29] MEDS ORDERED: ONDANSETRON 4 MG (ODT) TAB ONE (10:00)
[2018-10-29 10:44] LABS: Urine Blood TRACE (NEG); Urine Glucose 2+ (NEG); Urine Protein 2+ (NEG)
[2018-10-29 10:56] LABS: Urine Bacteria >50 /HPF (<20); Urine RBC <5 /HPF (NONE SEEN)
[2018-10-29 10:57] LABS: Urine Culture Reflex Order REFLEXED; Urine Mucus LIGHT /HPF (NONE SEEN)
[2018-10-29] MEDS ORDERED: LORazepam 2 MG/ML VIAL ONE (12:00)
--- NOTE | 2018-10-29 12:14 | RAD REPORT ---
EXAM DESCRIPTION: RAD - Chest Single View - 10/29/2018 9:45 am CLINICAL HISTORY: CHEST PAIN Chest pain. COMPARISON: Chest Pa And Lat (2 Views) dated 08/08/2017; Chest Single View dated 05/02/2017; Chest Sin gle View dated 12/10/2016; Chest Single View dated 07/05/2016 FINDINGS: Portable technique limits examination quality. Mild pulmonary edema. The heart is enlarged with a tortuous thoracic aorta. No displaced fractures. IMPRESSION: Mild CHF.
--- NOTE | 2018-10-29 12:35 | RAD REPORT ---
EXAM DESCRIPTION: CT - Abdomen Pelvis Wo Contrast - 10/29/2018 12:18 pm CLINICAL HISTORY: Abdominal pain. ABD PAIN COMPARISON: [place] Protocol dated 05/02/2017 TECHNIQUE: CT imaging of the abdomen and pelvis was performed without contrast. Solid organ, bowel a nd vascular assessment is limited due to lack of IV and oral contrast. All CT scans are performed using dose optimization technique as appropriate and may include automated exposure control or mA/KV adjustment according to patient size. FINDINGS: The lower lung syed are clear. The liver, spleen, pancreas, and kidneys are within normal limits for a limited non-contrast examinat ion.Mild nodularity is seen involving both adrenal glands. Cholecystectomy clips. No bowel obstruction, free air, free fluid or abscess. The appendix is not identified as a discrete structure, however, no secondary findings of appendicitis are identified. Postsurgical changes previ ous ventral hernia repair noted anteriorly. The osseous structures are within normal limits. IMPRESSION: No acute intra-abdominal or pelvic findings. A limited non-contrast examination was performed as detailed.
[2018-10-29] MEDS ORDERED: cloNIDine HCl 0.1 MG TAB ONE (12:39)
[2018-10-29] MEDS ORDERED: INSULIN -REGULAR HUMAN 50 UNIT/0.5 ML ML ONE (12:54)
[2018-10-29] MEDS ORDERED: HYDRALAZINE HCL 20 MG/ML VIAL ONE (13:16)
[2018-10-29] MEDS ORDERED: PROMETHAZINE 25 MG/ML VIAL ONE (13:55)
--- NOTE | 2018-10-29 13:55 | EDPHYS ---
Physician Documentation [facility] Name: Blanka Ferrell Age: 67 yrs Sex: Female : 1950 Arrival Date: 10/29/2018 Time: 08:32 Bed 5 Private MD: Shaista Campos C ED Physician Bobby Soliman HPI: 10/29 08:47 This 67 yrs old Black Female presents to ER via Ambulatory with complaints of Nausea. cp 08:47 The patient presents to the emergency department with nausea, that is moderate. Onset: cp The symptoms/episode began/occurred 3 day(s) ago. 08:47 Possible causes: recent medication change. Gabapentin was recently increased to 300 mg cp bid. Associated signs and symptoms: Pertinent positives: abdominal pain, anorexia, Pertinent negatives: constipation, diarrhea, dysuria, fever, GI bleeding, vomiting. Severity of symptoms: in the emergency department the symptoms are unchanged despite home interventions. Historical: - Allergies: 08:43 Imitrex; hb - PMHx: 10:38 Anxiety; Diabetes - IDDM; Hypertension; Migraines; Thyroid problem; sg - PSHx: 10:38 Hysterectomy; sg - Immunization history:: Adult Immunizations up to date. - Social history:: Smoking status: Patient/guardian denies using tobacco. - Ebola Screening: : No symptoms or risks identified at this time. ROS: 08:55 Constitutional: Negative for body aches, chills, fever, poor PO intake. cp 08:55 Eyes: Negative for injury, pain, redness, and discharge. cp 08:55 ENT: Negative for drainage from ear(s), ear pain, sore throat, difficulty swallowing, difficulty handling secretions. 08:55 Cardiovascular: Positive for chest pain, Negative for edema, palpitations. 08:55 Respiratory: Negative for cough, shortness of breath, wheezing. 08:55 Abdomen/GI: Positive for abdominal pain, nausea, Negative for vomiting, diarrhea, constipation, anorexia, black/tarry stool, rectal bleeding. 08:55 Back: Negative for pain at rest, radiated pain. 08:55 : Negative for urinary symptoms, flank pain. 08:55 Skin: Negative for rash. 08:55 Neuro: Negative for altered mental status, dizziness, headache, numbness, syncope, weakness. 08:55 All other systems are negative. Exam: 08:51 ECG was reviewed by the Attending Physician. cp 09:00 Constitutional: The patient appears in no acute distress, alert, awake, cp non-diaphoretic, non-toxic, well developed, well nourished, anxious. 09:00 Head/Face: Normocephalic, atraumatic. cp 09:00 Eyes: Periorbital structures: appear normal, Pupils: equal, round, and reactive to light and accomodation, Extraocular movements: intact throughout, Conjunctiva: normal, no exudate, no injection, Sclera: no appreciated abnormality, Lids and lashes: appear normal, bilaterally. 09:00 ENT: External ear(s): are unremarkable, Ear canal(s): are normal, clear, TM's: dullness, bilaterally, Nose: is normal, Mouth: is normal, Posterior pharynx: is normal, airway is patent, no erythema, no exudate. 09:00 Neck: ROM/movement: is normal, is supple, without pain, no range of motions limitations, no nuchal rigidity. 09:00 Chest/axilla: Inspection: normal, Palpation: is normal, no crepitus, no tenderness. 09:00 Cardiovascular: Rate: normal, Rhythm: regular, Edema: is not appreciated, JVD: is not appreciated. 09:00 Respiratory: the patient does not display signs of respiratory distress, Respirations: normal, no use of accessory muscles, no retractions, no splinting, no tachypnea, labored breathing, is not present, Breath sounds: are clear throughout, no decreased breath sounds, no stridor, no wheezing. 09:00 Abdomen/GI: Inspection: abdomen appears normal, Bowel sounds: active, all quadrants, Palpation: soft, in all quadrants, mild abdominal tenderness, in the right upper quadrant and left upper quadrant, rebound tenderness, is not appreciated, involuntary guarding, is not appreciated. 09:00 Back: pain, is absent, ROM is normal. 09:00 Skin: no rash present. 09:00 Neuro: Orientation: to person, place \T\ time. Mentation: is normal, Motor: moves all fours, strength is normal. Vital Signs: 08:43 BP 219 / 120; Pulse 97; Resp 18; Temp 97.1; Pulse Ox 97% on R/A; Weight 113.4 kg; hb Height 5 ft. 5 in. (165.10 cm); Pain 2/10; 09:10 BP 172 / 130; Pulse 96; Resp 17; Pulse Ox 99% on R/A; tw2 11:55 BP 215 / 104 LA; Pulse 81; Resp 17; Pulse Ox 100% on 2 lpm NC; tw2 12:40 BP 208 / 99; Pulse 91; Resp 18; Pulse Ox 100% on 2 lpm NC; tw2 13:13 BP 198 / 102; Pulse 93; Resp 17; Pulse Ox 100% on 2 lpm NC; tw2 13:35 BP 178 / 113; Pulse 98; Resp 17; Pulse Ox 100% on 2 lpm NC; tw2 14:10 BP 188 / 117; Pulse 96; Resp 17; Pulse Ox 98% on R/A; tw2 08:43 Body Mass Index 41.60 (113.40 kg, 165.10 cm) hb 11:55 provider notified of BP tw2 MDM: 08:42 Patient medically screened. cp 09:00 Differential diagnosis: gastritis, cholecystitis, pancreatitis, diverticulitis, viral cp gastroenteritis, gastroenteritis. 13:03 Physician consultation: A Andres CAMPBELL was called at 13:03, left message on voicemail. cp 13:49 Physician consultation: A Andres CAMPBELL was called at 13:45, was contacted at 13:45, cp regarding consult, patient's condition, wants Gabapentin medication reduced from 300 mg bid to 100 mg bid and for patient to f/u in clinic 1-2 weeks. 13:53 Data reviewed: vital signs, nurses notes, lab test result(s), EKG, radiologic studies, cp CT scan, plain films. 13:53 Test interpretation: by ED physician or midlevel provider: ECG, plain radiologic cp studies. 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 Response to treatment: the patient's symptoms have markedly improved after treatment, and as a result, I will discharge patient. Special discussion: Based on the patient's Hx, exam, and Dx evaluation, there is no indication for emergent surgery or inpatient Tx. It is understood by the patient/guardian that if the Sx's persist or worsen they need to return immediately for re-evaluation. 10/29 08:43 Order name: Basic Metabolic Panel 10/29 08:43 Order name: CBC with Diff 10/29 08:43 Order name: Creatinine for Radiology 10/29 08:43 Order name: Hepatic Function 10/29 08:43 Order name: Lipase 10/29 08:47 Order name: Troponin I 10/29 08:47 Order name: BNP 10/29 08:47 Order name: Magnesium 10/29 08:47 Order name: Urine Microscopic Only 10/29 09:15 Order name: CBC with Automated Diff; Complete Time: 10:01 EDPA 10/29 10:02 Interpretation: Normal except: RBC 5.49; HGB 15.4; HCT 45.5; RDW 15.7; SATNAM% 82.5; LYM% cp 12.7. 10/29 09:27 Order name: Basic Metabolic Panel; Complete Time: 10:01 EDPA 10/29 10:02 Interpretation: Normal except: NA 134; GLUC 334; GFR 77. 10/29 09:27 Order name: Liver (Hepatic) Function; Complete Time: 10:01 EDMS 10/29 10:09 Interpretation: Normal except: AST 14; ALK 143; TP 8.7; GLOB 5.0; A/G 0.7. 10/29 09:27 Order name: Lipase; Complete Time: 10:01 EDPA 10/29 09:28 Order name: Troponin I; Complete Time: 10:01 EDPA 10/29 10:02 Interpretation: Within normal limits: TROP < 0.02. 10/29 08:47 Order name: XRAY Chest (1 view) 10/29 09:28 Order name: NT PRO-BNP; Complete Time: 10:01 EDPA 10/29 12:42 Interpretation: Abnormal: NT PRO-BNP 1029. 10/29 09:28 Order name: Magnesium; Complete Time: 10:01 EDPA 10/29 12:42 Interpretation: Abnormal: MG 1.5. 10/29 09:29 Order name: Creatinine (Radiology Only); Complete Time: 10:01 EDPA 10/29 10:28 Order name: Urine Dipstick--Ancillary (enter results) 10/29 10:45 Order name: Urine Dipstick-Ancillary; Complete Time: 11:52 EDMS 10/29 10:57 Order name: Urine Microscopic Only; Complete Time: 11:52 EDMS 10/29 12:53 Interpretation: Normal except: UBACT >50; SQEPI 5-10. cp 10/29 11:57 Order name: CT Abd/Pelvis - Without Contrast cp 10/29 12:16 Order name: RAD; Complete Time: 12:28 EDMS 10/29 12:38 Order name: CT; Complete Time: 12:41 EDMS 10/29 08:43 Order name: IV Saline Lock; Complete Time: 12:07 cp 10/29 08:43 Order name: Labs collected and sent; Complete Time: 09:55 cp 10/29 08:47 Order name: EKG; Complete Time: 08:49 cp 10/29 08:47 Order name: EKG - Nurse/Tech; Complete Time: 08:48 cp 10/29 08:47 Order name: Urine Dipstick-Ancillary (obtain specimen); Complete Time: 10:24 cp 10/29 12:42 Order name: PO challenge; Complete Time: 13:18 cp EC:51 Rate is 85 beats/min. Rhythm is regular. RI interval is normal. QRS interval is cp prolonged at 166 msec. QT interval is normal. T waves are Inverted in leads I, aVL. Interpreted by me. Reviewed by me. Administered Medications: 09:00 Drug: Zofran 4 mg Route: IVP; Site: right antecubital; tw2 09:09 Follow up: Response: infiltration noted after NS flush, IV discontinued at this time tw2 10:00 Drug: Zofran 4 mg Route: PO; tw2 10:11 Follow up: Response: No adverse reaction tw2 11:45 Drug: morphine 4 mg Route: IVP; Site: left jugular; tw2 12:10 Follow up: Response: No adverse reaction; Pain is decreased tw2 11:45 Drug: NS 0.9% 500 ml Route: IV; Rate: bolus; Site: left jugular; tw2 15:00 Follow up: IV Intake: 500ml tw2 11:45 Drug: Zofran 4 mg Route: IVP; Site: left jugular; tw2 12:10 Follow up: Response: No adverse reaction; Nausea is decreased tw2 11:47 Drug: Pepcid 20 mg Route: IVP; Site: left jugular; tw2 11:54 Follow up: Response: No adverse reaction tw2 12:00 Drug: Ativan 0.5 mg Route: IVP; Site: left jugular; tw2 12:14 Follow up: Response: No adverse reaction; Anxiety decreased tw2 12:39 Drug: cloNIDine 0.3 mg Route: PO; tw2 13:19 Follow up: Response: No adverse reaction; Blood pressure is unchanged tw2 12:55 Not Given (Duplicate Order): Insulin Regular Human 10 units IVP once sg 12:55 CANCELLED (Duplicate Order): NovoLIN R 10 units Sub-Q once sg 12:55 Drug: Insulin Regular Human 10 units {Co-Signature: (Nella Rocha RN).} Route: Sub-Q; sg Site: left upper arm; 13:58 Follow up: Response: No adverse reaction; Blood sugar is lowered tw2 13:01 Not Given (pt condition): NS 0.9% 500 ml IV at 125 ml/hr continuous tw2 13:17 Drug: hydrALAZINE 10 mg Route: IV; Rate: calculated rate; Site: left jugular; tw2 13:57 Drug: Phenergan 25 mg Route: IVP; Site: left jugular; tw2 14:26 Follow up: Response: No adverse reaction; Nausea is decreased tw2 Point of Care Testing: Blood Glucose: 12:33 Blood Glucose: 293 mg/dL; tw2 13:57 Blood Glucose: 256 mg/dL; tw2 Ranges: Critical Glucose Levels:Adult <50 mg/dl or >400 mg/dl <40 mg/dl or >180 mg/dl Disposition: 20:38 Co-signature as Attending Physician, Bobby Soliman MD. rn Disposition: 10/29/18 13:54 Discharged to Home. Impression: Nausea. - Condition is Stable. - Discharge Instructions: Nausea, Adult. - Prescriptions for gabapentin 100 mg Oral capsule - take 1 capsule by ORAL route 2 times per day; 60 capsule. Zofran 4 mg Oral Tablet - take 1 tablet by ORAL route every 12 hours As needed; 20 tablet. Phenergan 25 mg Rectal Suppository - insert 1 suppository by RECTAL route every 6 hours As needed; 12 suppository. - Medication Reconciliation Form, Thank You Letter, Antibiotic Education, Prescription Opioid Use form. - Follow up: Shaista Campos MD; When: 10 - 14 days; Reason: Recheck today's complaints. - Problem is new. - Symptoms have improved. Signatures: Dispatcher [employer] EDSkip [place] RN RN sg Bobby Soliman MD MD rn Page, Corey, PA PA cp Brooke Trejo RN RN Nella Beal RN RN tw2 Nella Rocha RN tw2 Corrections: (The following items were deleted from the chart) 12:55 12:41 NovoLIN R 10 units Sub-Q once ordered. cp sg 13:04 13:02 Physician consultation: Shaista Campos MD [facility] 14:26 13:54 10/29/2018 13:54 Discharged to Home. Impression: Nausea. Condition is Stable. sg Forms are Medication Reconciliation Form, Thank You Letter, Antibiotic Education, Prescription Opioid Use. Follow up: Shaista Campos; When: 10 - 14 days; Reason: Recheck today's complaints. Problem is new. Symptoms have improved. cp
--- NOTE | 2018-10-29 13:55 | ER ---
Nurse's Notes [facility] Name: Blanka Ferrell Age: 67 yrs Sex: Female : 1950 Arrival Date: 10/29/2018 Time: 08:32 Bed 5 Private MD: Shaista Campos C Diagnosis: Nausea Presentation: 10/29 08:42 Presenting complaint: Nausea x 3 days, chest pressure today. Transition of care: hb patient was not received from another setting of care. Onset of symptoms was October 27, 2018. Risk Assessment: Do you want to hurt yourself or someone else? Patient reports no desire to harm self or others. Initial Sepsis Screen: Does the patient meet any 2 criteria? No. Patient's initial sepsis screen is negative. Does the patient have a suspected source of infection? No. Patient's initial sepsis screen is negative. Care prior to arrival: None. 08:42 Method Of Arrival: Ambulatory hb 08:42 Acuity: THALIA 3 hb Triage Assessment: 08:35 General: Appears uncomfortable, Behavior is anxious. GI: Reports nausea. tw2 Historical: - Allergies: 08:43 Imitrex; hb - PMHx: 10:38 Anxiety; Diabetes - IDDM; Hypertension; Migraines; Thyroid problem; sg - PSHx: 10:38 Hysterectomy; sg - Immunization history:: Adult Immunizations up to date. - Social history:: Smoking status: Patient/guardian denies using tobacco. - Ebola Screening: : No symptoms or risks identified at this time. Screenin:35 Abuse screen: Denies threats or abuse. Nutritional screening: No deficits noted. tw2 Tuberculosis screening: No symptoms or risk factors identified. Fall Risk None identified. Assessment: 08:35 General: Appears uncomfortable, obese, well groomed, Behavior is anxious, fussy. Pain: tw2 Complains of pain in abdomen. Neuro: Level of Consciousness is awake, alert, obeys commands, Oriented to person, place, time, situation. Cardiovascular: Heart tones S1 S2 Patient's skin is warm and dry. Respiratory: Airway is patent Respiratory effort is even, unlabored, Respiratory pattern is regular, symmetrical, Breath sounds are clear bilaterally. GI: Abdomen is round non-distended, obese, Bowel sounds present X 4 quads. Reports lower abdominal pain, upper abdominal pain, nausea. : No signs and/or symptoms were reported regarding the genitourinary system. EENT: No signs and/or symptoms were reported regarding the EENT system. Derm: No signs and/or symptoms reported regarding the dermatologic system. Musculoskeletal: Range of motion: intact in all extremities. 10:38 Reassessment: Patient appears in no apparent distress at this time. Patient and/or sg family updated on plan of care and expected duration. Pain level reassessed. 10:46 Reassessment: Patient appears in no apparent distress at this time. pt appears sg restless, slowly pacing in room from side to side, slowly placing in hallway as well. 11:09 Reassessment: Molly PELAYO at bedside at this time for insertion of Ultrasound IV. sg 12:33 Reassessment: Patient appears in no apparent distress at this time. Patient and/or tw2 family updated on plan of care and expected duration. Pain level reassessed. Patient is alert, oriented x 3, equal unlabored respirations, skin warm/dry/pink. 13:33 Reassessment: Patient appears in no apparent distress at this time. Patient and/or tw2 family updated on plan of care and expected duration. Pain level reassessed. Patient is alert, oriented x 3, equal unlabored respirations, skin warm/dry/pink. pt tolerating po fluids at this time, states "its like the nausea comes in waves it comes and then goes away but i wonder if its cause my blood pressure is high". 14:00 Reassessment: pt states "i just dont know why i am so nauseous again, oh isauro oh tw2 isauro" directed to her spouse at bedside. Vital Signs: 08:43 BP 219 / 120; Pulse 97; Resp 18; Temp 97.1; Pulse Ox 97% on R/A; Weight 113.4 kg; hb Height 5 ft. 5 in. (165.10 cm); Pain 2/10; 09:10 BP 172 / 130; Pulse 96; Resp 17; Pulse Ox 99% on R/A; tw2 11:55 BP 215 / 104 LA; Pulse 81; Resp 17; Pulse Ox 100% on 2 lpm NC; tw2 12:40 BP 208 / 99; Pulse 91; Resp 18; Pulse Ox 100% on 2 lpm NC; tw2 13:13 BP 198 / 102; Pulse 93; Resp 17; Pulse Ox 100% on 2 lpm NC; tw2 13:35 BP 178 / 113; Pulse 98; Resp 17; Pulse Ox 100% on 2 lpm NC; tw2 14:10 BP 188 / 117; Pulse 96; Resp 17; Pulse Ox 98% on R/A; tw2 08:43 Body Mass Index 41.60 (113.40 kg, 165.10 cm) hb 11:55 provider notified of BP tw2 ED Course: 08:32 Patient arrived in ED. rg4 08:33 Shaista Campos MD is Private Physician. rg4 08:35 Placed in gown. Side rails up X2. Adult w/ patient. manager monitoring on. Pulse ox on. tw2 NIBP on. Pillow given. 08:38 Philipp Rivera PA is PHCP. cp 08:38 Bobby Soliman MD is Attending Physician. cp 08:43 Triage completed. hb 08:43 Arm band placed on. hb 08:48 Nella Rocha, RE is Primary Nurse. tw2 08:55 Missed attempt(s): 22 gauge in right antecubital area. Bleeding controlled, band aid tw2 applied, catheter tip intact. Inserted saline lock: 20 gauge in right antecubital area, using aseptic technique. ,using aseptic technique. per Chay Gifford Blood collected. 08:58 Radiology exam delayed due to lab results not completed at this time. (BUN/Creatinine). bq 09:10 IV discontinued, intact, bleeding controlled, Pressure dressing applied, swelling noted tw2 after NS flush, iv discontinue. Missed attempt(s): 22 gauge in left antecubital area. Bleeding controlled, band aid applied, catheter tip intact. 09:37 Missed attempt(s): 24 gauge in left forearm. Bleeding controlled, band aid applied, sg catheter tip intact. Missed attempt(s): 22 gauge in left forearm. Bleeding controlled, band aid applied, catheter tip intact. 11:40 Missed attempt(s): 22 gauge in left antecubital area. via US by GITA Serrano. Missed tw2 attempt(s): 22 gauge in right antecubital area. via GITA Serrano with US guided technique. 11:45 One-on-one care X 120 minutes. tw2 11:45 Inserted saline lock: 20 gauge in left EJ, using aseptic technique. ,using aseptic tw2 technique. by GITA Busby. 12:23 CT completed. Patient tolerated procedure well. Patient moved back from CT. bq 13:17 PO fluids given. Diet: Patient given juice. ms 13:53 Shaista Campos MD is Referral Physician. cp 14:26 No provider procedures requiring assistance completed. IV discontinued, intact, tw2 bleeding controlled, No redness/swelling at site. Pressure dressing applied. Administered Medications: 09:00 Drug: Zofran 4 mg Route: IVP; Site: right antecubital; tw2 09:09 Follow up: Response: infiltration noted after NS flush, IV discontinued at this time tw2 10:00 Drug: Zofran 4 mg Route: PO; tw2 10:11 Follow up: Response: No adverse reaction tw2 11:45 Drug: morphine 4 mg Route: IVP; Site: left jugular; tw2 12:10 Follow up: Response: No adverse reaction; Pain is decreased tw2 11:45 Drug: NS 0.9% 500 ml Route: IV; Rate: bolus; Site: left jugular; tw2 15:00 Follow up: IV Intake: 500ml tw2 11:45 Drug: Zofran 4 mg Route: IVP; Site: left jugular; tw2 12:10 Follow up: Response: No adverse reaction; Nausea is decreased tw2 11:47 Drug: Pepcid 20 mg Route: IVP; Site: left jugular; tw2 11:54 Follow up: Response: No adverse reaction tw2 12:00 Drug: Ativan 0.5 mg Route: IVP; Site: left jugular; tw2 12:14 Follow up: Response: No adverse reaction; Anxiety decreased tw2 12:39 Drug: cloNIDine 0.3 mg Route: PO; tw2 13:19 Follow up: Response: No adverse reaction; Blood pressure is unchanged tw2 12:55 Not Given (Duplicate Order): Insulin Regular Human 10 units IVP once sg 12:55 CANCELLED (Duplicate Order): NovoLIN R 10 units Sub-Q once sg 12:55 Drug: Insulin Regular Human 10 units {Co-Signature: tw2 (Nella Rocha RN).} Route: Sub-Q; sg Site: left upper arm; 13:58 Follow up: Response: No adverse reaction; Blood sugar is lowered tw2 13:01 Not Given (pt condition): NS 0.9% 500 ml IV at 125 ml/hr continuous tw2 13:17 Drug: hydrALAZINE 10 mg Route: IV; Rate: calculated rate; Site: left jugular; tw2 13:57 Drug: Phenergan 25 mg Route: IVP; Site: left jugular; tw2 14:26 Follow up: Response: No adverse reaction; Nausea is decreased tw2 Point of Care Testing: Blood Glucose: 12:33 Blood Glucose: 293 mg/dL; tw2 13:57 Blood Glucose: 256 mg/dL; tw2 Ranges: Intake: 15:00 IV: 500ml; Total: 500ml. tw2 Outcome: 13:54 Discharge ordered by MD. cp 14:26 Patient left the ED. sg 14:26 Discharged to home via wheelchair, with family. tw2 14:26 Condition: stable 14:26 Discharge instructions given to patient, family, Instructed on discharge instructions, follow up and referral plans. no drinking with medication, no driving heavy equipment, medication usage, Demonstrated understanding of instructions, follow-up care, medications, Prescriptions given X 3. Signatures: Skip Muniz RN RN sg Quilty, Betty bq Solis, Maria ms Philipp Rivera, PA PA Brooke Watt RN RN Nella Rocha RN RN tw2 Mary Franco 4 Nella Rocha RN tw2 Corrections: (The following items were deleted from the chart) 18:22 12:30 One-on-one care X 120 minutes tw2 tw2
[2018-10-29 15:13] VITALS: TEMP 97.1
[2018-10-29 15:23] VITALS: BP 188/117; O2SAT 98
--- NOTE | 2018-10-30 11:36 | EKG ---
Test Date: 2018-10-29 Test Time: 08:47:45 [place]: MEASUREMENT RESULTS: Intervals: Rate: 85 MO: 120 QRSD: 166 QT: 446 QTc: 530 [place]: P: 29 MO: 120 QRS: -17 T: 121 INTERPRETIVE STATEMENTS: Normal sinus rhythm Possible Left atrial enlargement Left bundle branch block Abnormal ECG Compared to ECG 08/08/2017 22:25:22 No significant changes Electronically Signed On 10-30-18 11:31:32 CDT by Roland Burns
== END 2018-10-29 14:26 | disposition home or self-care (01) ==
LOC: ER 08:31
DX: R11.0 Nausea (principal); I10 Essential (primary) hypertension; E11.9 Type 2 diabetes mellitus without complications; Z88.8 Allergy status to other drugs, medicaments and biological substances
CPT/HCPCS: 93005; 87088; 85025; 87086; 80048; 36415; 83735; 82962 ×2; 80076; 84484; 83690; 83880; 74176; 71045; 96375; 96372; 96374; 99285; J0360; J2550; J7030; J2405 ×2; 81003; 81015

== ENCOUNTER 2018-12-08 11:27 | Emergency (ER) | payer OTHER ==
[2018-12-08] MEDS ORDERED: ONDANSETRON 4 MG/2 ML VIAL ONE (12:21)
[2018-12-08] MEDS ORDERED: MORPHINE 2 MG/ML SYR ONE (12:21)
[2018-12-08] MEDS ORDERED: NA CHLORIDE 0.9% 500 ML ONE (12:21)
[2018-12-08 12:33] LABS: Absolute Lymphocytes (CBC) 1.1 K/uL (0.7-4.9); Lymphocytes % 19.7 % (15.3-44.8); MPV 9.1 fL (7.6-11.3)
[2018-12-08 12:55] LABS: Albumin 3.2 g/dL (3.4-5.0); Bilirubin Direct 0.1 mg/dL (0-0.2); Bilirubin Total 0.4 mg/dL (0.2-1.0); Potassium 4.1 mmol/L (3.5-5.1); Protein, Total 7.5 g/dL (6.4-8.2)
--- NOTE | 2018-12-08 13:25 | RAD REPORT ---
EXAM DESCRIPTION: CTAbdomen Pelvis W Contrast - 12/08/2018 1:16 pm CLINICAL HISTORY: Abdominal pain. left sided abdominal pain COMPARISON: Abdomen Pelvis W Contrast dated 04/28/2016; CT ABD PELVIS W CONTRAST dated 01/11/2014; CT ABD PELVIS W CONTRAST dated 12/25/2013; CT ABD PELVIS W CONTRAST dated 12/22/2013; Abdomen Pelvis Wo Contrast dated 10/29/2018 TECHNIQUE: Biphasic CT imaging of the abdomen and pelvis was performed with 100 ml non-ionic IV cont rast. All CT scans are performed using dose optimization technique as appropriate and may include automated exposure control or mA/KV adjustment according to patient size. FINDINGS: The lung bases are clear. Cholecystectomy clips. The liver, spleen, pancreas, adrenal glands and kidneys are within normal limits. No bowel obstruction, free air, free fluid or abscess. Several diverticula are present in the region of the sigmoid colon with subtle inflammatory changes in the adjacent fat. There is upstream retentio n of colon stool is well. The appendix is not identified as a discrete structure, however, no seconda ry findings of appendicitis are identified. No evidence of significant lymphadenopathy. No suspicious bony findings. Evidence of previous anterior abdominal wall hernia repair. IMPRESSION: Mild/early acute diverticulitis findings are suspected in the sigmoid colon. Upstream re tention of stool in the colon is present. After appropriate therapy, advise follow-up colonoscopy to exclude possible mass or stricture in the region.
[2018-12-08] MEDS ORDERED: levoFLOXacin 750 MG TAB ONE (13:39)
[2018-12-08] MEDS ORDERED: FENTANYL CITR 100 MCG/2 ML ONE (13:39)
[2018-12-08] MEDS ORDERED: DICYCLOMINE HCL 10 MG CAP ONE (13:39)
[2018-12-08] MEDS ORDERED: metroNIDAZOLE 500 MG TABLET ONE (13:39)
--- NOTE | 2018-12-08 14:16 | ER ---
Nurse's Notes [facility] Name: Blanka Ferrell Age: 67 yrs Sex: Female : 1950 Arrival Date: 12/08/2018 Time: 11:30 Bed 18 Private MD: Shaista Campos C Diagnosis: Diverticulitis Presentation: 12/08 11:51 Presenting complaint: Patient states: left sided abd pain for a few weeks, worse over iw past two days, hx of diverticulitis, thought she was constipated, last BM was yesterday was only a small amount and watery, took Dulcolax, milk of magnesia. Transition of care: patient was not received from another setting of care. Onset of symptoms was November 23, 2018. Risk Assessment: Do you want to hurt yourself or someone else? Patient reports no desire to harm self or others. Initial Sepsis Screen: Does the patient meet any 2 criteria? No. Patient's initial sepsis screen is negative. Does the patient have a suspected source of infection? No. Patient's initial sepsis screen is negative. Care prior to arrival: None. 11:51 Method Of Arrival: Ambulatory iw 11:51 Acuity: THALIA 3 iw Historical: - Allergies: 11:58 Imitrex; iw - Home Meds: 11:58 carvedilol 25 mg Oral tab 2 tab 2 times per day [Active]; clonidine HCl 0.3 mg oral tab iw three times a day [Active]; Humalog Sub-Q [Active]; hydralazine 50 mg oral tab three times a day [Active]; gabapentin 100 mg oral cap twice a day [Active]; mirtazapine 15 mg Oral tab 1 tab once daily [Active]; Breo Ellipta 100-25 mcg/dose inhalation dsdv 1 puff once daily [Active]; losartan-hydrochlorothiazide 100-25 mg oral tab 1 tab once daily [Active]; buspirone 5 mg Oral tab 1 tab 2 times per day [Active]; chlordiazepoxide HCl 10 mg Oral cap twice a day [Active]; promethazine 12.5 mg Oral tab 1 tab 3 times per day [Active]; methimazole 10 mg Oral tab 1 tab once daily [Active]; - PMHx: 11:58 Anxiety; Diabetes - IDDM; Hypertension; Migraines; Thyroid problem; iw - PSHx: 11:58 Hysterectomy; Cholecystectomy; iw - Immunization history:: Adult Immunizations not up to date. - Social history:: Smoking status: Patient/guardian denies using tobacco. - Ebola Screening: : Patient negative for fever greater than or equal to 101.5 degrees Fahrenheit, and additional compatible Ebola Virus Disease symptoms Patient denies exposure to infectious person Patient denies travel to an Ebola-affected area in the 21 days before illness onset No symptoms or risks identified at this time. Screenin:15 Abuse screen: Denies threats or abuse. Nutritional screening: No deficits noted. em Tuberculosis screening: No symptoms or risk factors identified. Fall Risk None identified. Assessment: 12:15 General: Appears in no apparent distress. uncomfortable, Behavior is calm, cooperative, em appropriate for age, Denies fever. Pain: Complains of pain in left lower quadrant and left upper quadrant Pain does not radiate. Pain currently is 8 out of 10 on a pain scale. Pain began 1 day ago. Neuro: Level of Consciousness is awake, alert, obeys commands, Oriented to person, place, time, situation, Appropriate for age. Cardiovascular: Denies chest pain, Capillary refill < 3 seconds. Respiratory: Airway is patent Respiratory effort is even, unlabored, Respiratory pattern is regular, symmetrical. GI: Abdomen is round non-distended, Bowel sounds present X 4 quads. Reports constipation, nausea, vomiting, Patient currently denies diarrhea. Derm: Skin is intact, is healthy with good turgor, Skin is pink, warm \T\ dry. Musculoskeletal: Capillary refill < 3 seconds, Range of motion: intact in all extremities. 12:55 Reassessment: Patient appears in no apparent distress at this time. I agree with courtney Angel's assessment. 13:30 Reassessment: Patient appears in no apparent distress at this time. Patient and/or em family updated on plan of care and expected duration. Pain level reassessed. Patient is alert, oriented x 3, equal unlabored respirations, skin warm/dry/pink. reports pain medication has not helped, provider notifed. Vital Signs: 11:58 BP 145 / 89; Pulse 75; Resp 16; Temp 97.0; Pulse Ox 99% on R/A; Weight 113.4 kg; Height iw 5 ft. 5 in. (165.10 cm); Pain 8/10; 13:35 BP 158 / 91; Pulse 73; Resp 18; Pulse Ox 99% on R/A; Pain 8/10; iw 14:30 BP 155 / 82; Pulse 84; Resp 16; Temp 97.8; Pulse Ox 99% on R/A; Pain 3/10; ch 11:58 Body Mass Index 41.60 (113.40 kg, 165.10 cm) iw ED Course: 11:30 Patient arrived in ED. ag5 11:30 Shaista Campos MD is Private Physician. ag5 11:35 Stanley Schroeder LVN is Primary Nurse. em 11:50 Galo Quiñones PA is PHCP. jmm 11:50 Juan A Miller MD is Attending Physician. [facility] 11:54 Triage completed. iw 12:15 Patient has correct armband on for positive identification. Bed in low position. Call em light in reach. Side rails up X2. Pulse ox on. NIBP on. 12:15 Arm band placed on. em 12:23 Radiology exam delayed due to lab results not completed at this time. (BUN/Creatinine). kw1 12:25 Initial lab(s) drawn, by me, sent to lab. Inserted saline lock: 22 gauge in right em forearm, using aseptic technique. Blood collected. 13:16 CT Abd/Pelvis - IV Contrast Only In Process Unspecified. EDMS 14:30 No provider procedures requiring assistance completed. IV discontinued, intact, ch bleeding controlled, No redness/swelling at site. Pressure dressing applied. Administered Medications: 12:25 Drug: NS 0.9% 500 ml Route: IV; Rate: bolus; Site: right forearm; em 13:31 Follow up: IV Status: Completed infusion; IV Intake: 500ml iw 12:30 Drug: Zofran 4 mg Route: IVP; Site: right forearm; iw 13:31 Follow up: Response: No adverse reaction; Nausea is decreased iw 12:32 Drug: morphine 2 mg Route: IVP; Site: right forearm; iw 13:31 Follow up: Response: No adverse reaction; Pain is unchanged, physician notified iw 13:43 Drug: Bentyl 20 mg Route: PO; iw 14:15 Follow up: Response: No adverse reaction; Pain is decreased em 13:43 Drug: fentaNYL (PF) 50 mcg Route: IVP; Site: right forearm; iw 14:15 Follow up: Response: No adverse reaction; Pain is decreased em 13:44 Drug: LevaQUIN 750 mg Route: PO; iw 14:15 Follow up: Response: No adverse reaction em 13:44 Drug: Flagyl 500 mg Route: PO; iw 14:15 Follow up: Response: No adverse reaction em Intake: 13:31 IV: 500ml; Total: 500ml. Outcome: 14:15 Discharge ordered by . fabian 14:20 Discharged to home via wheelchair, with family. 14:20 Condition: improved 14:20 Discharge instructions given to patient, family, Instructed on discharge instructions, follow up and referral plans. medication usage, Demonstrated understanding of instructions, follow-up care, medications, Prescriptions given X x5 14:24 Patient left the ED. Signatures: Dispatcher [employer] Meme Billings, RN RN Galo Quiñones PA PA jmm Munoz, Edgar, INVESTIGATION OFFICER INVESTIGATION OFFICER Macey Luna RN RN Kelsey Moser 1 Oliva Reina ag5
--- NOTE | 2018-12-08 14:17 | EDPHYS ---
Physician Documentation [facility] Name: Blanka Ferrell Age: 67 yrs Sex: Female : 1950 Arrival Date: 12/08/2018 Time: 11:30 Bed 18 Private MD: Shaista Campos C ED Physician Juan A Miller HPI: 12/08 12:09 This 67 yrs old Black Female presents to ER via Ambulatory with complaints of Pain On jmm Side. 12:09 The patient presents with abdominal pain in the lower abdomen. Onset: The jm symptoms/episode began/occurred gradually, 1 day(s) ago. The symptoms do not radiate. Associated signs and symptoms: Pertinent positives: constipation, diarrhea, nausea. The symptoms are described as achy. with diverticulitis. This is a 67 year old female with a history of anxiety, dm, htn, migraines that presents to the ED with complaints of left sided abdominal pain which radiates to her left flank. Patient states symptoms worsened last night. Unable to relieve pain with tylenol. . Historical: - Allergies: 11:58 Imitrex; iw - Home Meds: 11:58 carvedilol 25 mg Oral tab 2 tab 2 times per day [Active]; clonidine HCl 0.3 mg oral tab iw three times a day [Active]; Humalog Sub-Q [Active]; hydralazine 50 mg oral tab three times a day [Active]; gabapentin 100 mg oral cap twice a day [Active]; mirtazapine 15 mg Oral tab 1 tab once daily [Active]; Breo Ellipta 100-25 mcg/dose inhalation dsdv 1 puff once daily [Active]; losartan-hydrochlorothiazide 100-25 mg oral tab 1 tab once daily [Active]; buspirone 5 mg Oral tab 1 tab 2 times per day [Active]; chlordiazepoxide HCl 10 mg Oral cap twice a day [Active]; promethazine 12.5 mg Oral tab 1 tab 3 times per day [Active]; methimazole 10 mg Oral tab 1 tab once daily [Active]; - PMHx: 11:58 Anxiety; Diabetes - IDDM; Hypertension; Migraines; Thyroid problem; iw - PSHx: 11:58 Hysterectomy; Cholecystectomy; iw - Immunization history:: Adult Immunizations not up to date. - Social history:: Smoking status: Patient/guardian denies using tobacco. - Ebola Screening: : Patient negative for fever greater than or equal to 101.5 degrees Fahrenheit, and additional compatible Ebola Virus Disease symptoms Patient denies exposure to infectious person Patient denies travel to an Ebola-affected area in the 21 days before illness onset No symptoms or risks identified at this time. ROS: 12:09 Constitutional: Negative for fever, chills, and weight loss, Cardiovascular: Negative jmm for chest pain, palpitations, and edema, Respiratory: Negative for shortness of breath, cough, wheezing, and pleuritic chest pain. 12:09 MS/Extremity: Negative for injury and deformity. 12:09 Abdomen/GI: Positive for abdominal pain, nausea, diarrhea, constipation. 12:09 Back: Positive for flank pain, on the left. 12:09 All other systems are negative. Exam: 12:09 Constitutional: This is a well developed, well nourished patient who is awake, alert, jmm and in no acute distress. Head/Face: atraumatic. Eyes: EOMI, no conjunctival erythema appreciated ENT: Moist Mucus Membranes Neck: Trachea midline, Supple Chest/axilla: Normal chest wall appearance and motion. Cardiovascular: Regular rate and rhythm. No edema appreciated Respiratory: Normal respirations, no respiratory distress appreciated 12:09 Back: Normal ROM Skin: General appearance color normal MS/ Extremity: Moves all extremities, no obvious deformities appreciated, no edema noted to the lower extremities Neuro: Awake and alert, normal gait Psych: Behavior is normal, Mood is normal, Patient is cooperative and pleasant 12:09 Abdomen/GI: Inspection: abdomen appears normal, Bowel sounds: normal, Palpation: soft, mild abdominal tenderness, in the left upper quadrant and left lower quadrant. Vital Signs: 11:58 BP 145 / 89; Pulse 75; Resp 16; Temp 97.0; Pulse Ox 99% on R/A; Weight 113.4 kg; Height iw 5 ft. 5 in. (165.10 cm); Pain 8/10; 13:35 BP 158 / 91; Pulse 73; Resp 18; Pulse Ox 99% on R/A; Pain 8/10; iw 14:30 BP 155 / 82; Pulse 84; Resp 16; Temp 97.8; Pulse Ox 99% on R/A; Pain 3/10; ch 11:58 Body Mass Index 41.60 (113.40 kg, 165.10 cm) MDM: 11:55 Patient medically screened. [facility] [place] 14:14 Data reviewed: vital signs, nurses notes, lab test result(s), radiologic studies, CT [facility] scan. Counseling: I had a detailed discussion with the patient and/or guardian regarding: the historical points, exam findings, and any diagnostic results supporting the discharge/admit diagnosis, lab results, radiology results, the need for outpatient follow up, to return to the emergency department if symptoms worsen or persist or if there are any questions or concerns that arise at home. ED course: Patient is alert and non toxic in appearance in the ED. Abdominal pain relieved. Patient given strict return precautions. Patient understood and agrees with the plan of care. . 12/08 12:01 Order name: Basic Metabolic Panel; Complete Time: 13:06 [facility] 12/08 12:01 Order name: CBC with Diff; Complete Time: 13:06 [facility] [place] 12/08 12:01 Order name: Creatinine for Radiology; Complete Time: 13:06 [facility] [place] 12/08 12:01 Order name: Hepatic Function; Complete Time: 13:06 [facility] [place] 12/08 12:01 Order name: Lipase; Complete Time: 13:06 [facility] [place] 12/08 12:01 Order name: CT Abd/Pelvis - IV Contrast Only; Complete Time: 13:32 [facility] [place] 12/08 12:01 Order name: IV Saline Lock; Complete Time: 12:18 [facility] 12/08 12:01 Order name: Labs collected and sent; Complete Time: 12:18 [facility] Administered Medications: 12:25 Drug: NS 0.9% 500 ml Route: IV; Rate: bolus; Site: right forearm; em 13:31 Follow up: IV Status: Completed infusion; IV Intake: 500ml iw 12:30 Drug: Zofran 4 mg Route: IVP; Site: right forearm; iw 13:31 Follow up: Response: No adverse reaction; Nausea is decreased iw 12:32 Drug: morphine 2 mg Route: IVP; Site: right forearm; iw 13:31 Follow up: Response: No adverse reaction; Pain is unchanged, physician notified iw 13:43 Drug: Bentyl 20 mg Route: PO; iw 14:15 Follow up: Response: No adverse reaction; Pain is decreased em 13:43 Drug: fentaNYL (PF) 50 mcg Route: IVP; Site: right forearm; iw 14:15 Follow up: Response: No adverse reaction; Pain is decreased em 13:44 Drug: LevaQUIN 750 mg Route: PO; iw 14:15 Follow up: Response: No adverse reaction em 13:44 Drug: Flagyl 500 mg Route: PO; iw 14:15 Follow up: Response: No adverse reaction em Disposition: 15:10 Co-signature as Attending Physician, Juan A Miller MD I agree with the assessment and kdr plan of care. Disposition: 12/08/18 14:15 Discharged to Home. Impression: Diverticulitis. - Condition is Stable. - Discharge Instructions: Diverticulitis. - Prescriptions for Zofran ODT 4 mg Oral tablet,disintegrating - place 1 tablet by TRANSLINGUAL route every 4-6 hours; 20 tablet. Colace 100 mg Oral Tablet - take 1 tablet by ORAL route every 12 hours; 14 tablet. Flagyl 500 mg Oral Tablet - take 1 tablet by ORAL route every 6 hours for 10 days; 40 tablet. Levaquin 750 mg Oral Tablet - take 1 tablet by ORAL route once daily for 10 days; 10 tablet. Tylenol- Codeine #3 300-30 mg Oral Tablet - take 1 tablet by ORAL route every 6 hours As needed; 20 tablet. - Medication Reconciliation Form, Thank You Letter, Antibiotic Education, Prescription Opioid Use form. - Follow up: Private Physician; When: 2 - 3 days; Reason: Recheck today's complaints, Continuance of care, Re-evaluation by your physician. Signatures: Dispatcher [employer] Meme Billings RN RN ch Rittger, Kevin, MD MD kdr Mickail, Joel, PA PA Stanley Lamar, POLICY SPECIALIST POLICY SPECIALIST em Macey Bales RN RN Corrections: (The following items were deleted from the chart) 14:24 14:15 12/08/2018 14:15 Discharged to Home. Impression: Diverticulitis. Condition is ch Stable. Forms are Medication Reconciliation Form, Thank You Letter, Antibiotic Education, Prescription Opioid Use. Follow up: Private Physician; When: 2 - 3 days; Reason: Recheck today's complaints, Continuance of care, Re-evaluation by your physician. fabian
[2018-12-08 14:33] VITALS: TEMP 97; O2SAT 99
[2018-12-08 14:34] VITALS: BP 158/91
== END 2018-12-08 14:24 | disposition home or self-care (01) ==
LOC: ER 11:27
DX: K57.92 Diverticulitis of intestine, part unspecified, without perforation or abscess without bleeding (principal); I10 Essential (primary) hypertension; E11.9 Type 2 diabetes mellitus without complications; F41.9 Anxiety disorder, unspecified; E07.9 Disorder of thyroid, unspecified; Z79.4 Long term (current) use of insulin; Z88.8 Allergy status to other drugs, medicaments and biological substances
CPT/HCPCS: 96361; 85025; 80048; 36415; 80076; 83690; 74177; 96375; 96374; 99284; Q9967; J3010; J2270; J7040; J2405

== ENCOUNTER 2019-01-28 13:36 | Inpatient (IN) | payer OTHER ==
--- OUTSIDE RECORDS SUMMARY | 2019-01-28 13:39 | XMS REPORT ---
:1950 [facility] Address [address] [place] [address] Dr. Estrada [address] [place] [id number] Care Team Providers Name Role Phone Unavailable Unavailable Unavailable Problems This patient has no known problems. Allergies, Adverse Reactions, Alerts This patient has no known allergies or adverse reactions. Medications This patient has no known medications.
[2019-01-28 15:15] LABS: Absolute Lymphocytes (CBC) 1.1 K/uL (0.7-4.9); Basophils % 0.9 % (0-1.3); Hematocrit 39.6 % (36.0-45.0); Lymphocytes % 23.7 % (15.3-44.8); MPV 8.4 fL (7.6-11.3); RBC Red Blood Cell Count 4.82 M/uL (3.86-4.86)
[2019-01-28 15:36] LABS: Protime INR 1.15
[2019-01-28 15:45] LABS: ALT/SGPT 16 U/L (12-78); AST/SGOT 16 U/L (15-37); Albumin 3.3 g/dL (3.4-5.0); Alkaline Phosphatase 125 U/L (45-117); BUN Blood Urea Nitrogen 8 mg/dL (7-18); Bicarbonate 28 mmol/L (21-32); Bilirubin Direct 0.2 mg/dL (0-0.2); Bilirubin Total 0.4 mg/dL (0.2-1.0); Glucose Level 211 mg/dL (74-106); Lipase 59 U/L (73-393); Magnesium 1.7 mg/dL (1.8-2.4); NT PRO-BNP 684 pg/mL (<125); Potassium 3.7 mmol/L (3.5-5.1); Protein, Total 7.7 g/dL (6.4-8.2); Sodium Level 138 mmol/L (136-145); Troponin (Emerg Dept Use Only) < 0.02 ng/mL (0.0-0.045)
[2019-01-28] MEDS ORDERED: MORPHINE 2 MG/ML SYR ONE (16:18)
[2019-01-28] MEDS ORDERED: MAGNESIUM SULFATE 1 gm IVPB 1 GM/100 ML BAG IV ONE (16:18)
--- NOTE | 2019-01-28 16:19 | RAD REPORT ---
EXAM DESCRIPTION: RAD - Chest Single View - 01/28/2019 2:36 pm CLINICAL HISTORY: Abdominal pain, abdominal distention COMPARISON: October 29, 2018, August 08, 2017 TECHNIQUE: AP portable chest image was obtained 1422 hours . FINDINGS: No peripheral mass or consolidations seen. Widening of the right-side mediastinum is simil ar to comparison. Cardiomegaly is present accentuated by prominent pericardial fat pads. Central vasc ulature is prominent but stable. No measurable pleural effusion and no pneumothorax. No acute bony ab normality seen. No acute aortic findings suspected. IMPRESSION: Exam is limited but not substantially different from comparison. Acute chest finding not suspected. Mild failure or volume overload could be masked.
--- NOTE | 2019-01-28 18:27 | RAD REPORT ---
EXAM DESCRIPTION: CT - Abdomen Pelvis W Contrast - 01/28/2019 6:05 pm CLINICAL HISTORY: ABD PAIN COMPARISON: CT study December 08, 2018 TECHNIQUE: Biphasic, helical CT imaging of the abdomen and pelvis was performed following 100 ml non -ionic IV contrast. Oral contrast was given. All CT scans are performed using dose optimization technique as appropriate and may include automated exposure control or mA/KV adjustment according to patient size. FINDINGS: No suspicious findings in the lung bases. The liver, spleen, and pancreas show no suspicious findings. Gallbladder is absent. No biliary tree d ilatation. Symmetric renal function is seen with no hydronephrosis or suspicious renal mass. No pyelonephritis o r acute parenchymal process. No bladder abnormalities. Adrenal gland nodularity is similar to compari son. No stomach or small bowel acute finding. No appendicitis findings. Moderate stool volume fills the co carla from tip of the cecum to the splenic flexure. Left-sided diverticulosis is present. In the proxim al sigmoid colon there is mild wall thickening and mild congestion or edema in the adjacent fat. Mid and distal colon is tortuous and redundant. No rectum acute finding. Uterus is absent. No ovarian abnormality. No free air, free fluid or pneumatosis. No hernia, mass o r bulky lymphadenopathy. The abdominal wall postsurgical changes are noted. No suspicious bony findings. IMPRESSION: Minimal diverticulitis pattern in the proximal sigmoid colon. Pattern is similar to the December 08 study. No abscess, free air or other emergent finding.
--- NOTE | 2019-01-28 19:02 | EDPHYS ---
Physician Documentation [facility] Name: Blanka Ferrell Age: 68 yrs Sex: Female : 1950 Arrival Date: 01/28/2019 Time: 13:39 Bed 14 Private MD: Shaista Campos C ED Physician Philipp Harley HPI: 01/28 15:32 This 68 yrs old Black Female presents to ER via Ambulatory with complaints of Abdominal yahir Pain, Back Pain. 15:32 The patient presents with pain that is chronic. The symptoms are located in the low yahir back. Onset: The symptoms/episode began/occurred 1 year(s) ago. The pain does not radiate. Historical: - Allergies: 13:56 Imitrex; jl7 - Home Meds: 13:56 Breo Ellipta 100-25 mcg/dose inhalation dsdv 1 puff once daily [Active]; buspirone 5 mg jl7 Oral tab 1 tab 2 times per day [Active]; chlordiazepoxide HCl 10 mg Oral cap twice a day [Active]; clonidine HCl 0.3 mg Oral tab three times a day [Active]; gabapentin 100 mg Oral cap twice a day [Active]; Humalog Sub-Q [Active]; Levemir subcutaneous [Active]; methimazole 10 mg Oral tab 1 tab once daily [Active]; mirtazapine 15 mg Oral tab 1 tab once daily [Active]; - PMHx: 13:56 Anxiety; Diabetes - IDDM; Hypertension; Migraines; Thyroid problem; jl7 - PSHx: 13:56 Hysterectomy; Cholecystectomy; jl7 - Immunization history:: Adult Immunizations not up to date. - Social history:: Smoking status: Patient/guardian denies using tobacco. - Ebola Screening: : No symptoms or risks identified at this time. ROS: 15:33 Constitutional: Negative for fever, chills, and weight loss, Eyes: Negative for injury, yahir pain, redness, and discharge, ENT: Negative for injury, pain, and discharge, Neck: Negative for injury, pain, and swelling, Cardiovascular: Negative for chest pain, palpitations, and edema, Respiratory: Negative for shortness of breath, cough, wheezing, and pleuritic chest pain, Back: Negative for injury and pain, : Negative for injury, bleeding, discharge, and swelling, MS/Extremity: Negative for injury and deformity, Skin: Negative for injury, rash, and discoloration, Neuro: Negative for headache, weakness, numbness, tingling, and seizure, Psych: Negative for depression, anxiety, suicide ideation, homicidal ideation, and hallucinations, Allergy/Immunology: Negative for hives, rash, and allergies, Endocrine: Negative for neck swelling, polydipsia, polyuria, polyphagia, and marked weight changes, Hematologic/Lymphatic: Negative for swollen nodes, abnormal bleeding, and unusual bruising. 15:33 Abdomen/GI: Positive for abdominal pain, nausea and vomiting, diarrhea, abdominal distension, of the right upper quadrant and left upper quadrant. Exam: 15:33 Constitutional: This is a well developed, well nourished patient who is awake, alert, yahir and in no acute distress. Head/Face: Normocephalic, atraumatic. Eyes: Pupils equal round and reactive to light, extra-ocular motions intact. Lids and lashes normal. Conjunctiva and sclera are non-icteric and not injected. Cornea within normal limits. Periorbital areas with no swelling, redness, or edema. ENT: Nares patent. No nasal discharge, no septal abnormalities noted. Tympanic membranes are normal and external auditory canals are clear. Oropharynx with no redness, swelling, or masses, exudates, or evidence of obstruction, uvula midline. Mucous membranes moist. Neck: Trachea midline, no thyromegaly or masses palpated, and no cervical lymphadenopathy. Supple, full range of motion without nuchal rigidity, or vertebral point tenderness. No Meningismus. Chest/axilla: Normal chest wall appearance and motion. Nontender with no deformity. No lesions are appreciated. Cardiovascular: Regular rate and rhythm with a normal S1 and S2. No gallops, murmurs, or rubs. Normal PMI, no JVD. No pulse deficits. Respiratory: Lungs have equal breath sounds bilaterally, clear to auscultation and percussion. No rales, rhonchi or wheezes noted. No increased work of breathing, no retractions or nasal flaring. Back: No spinal tenderness. No costovertebral tenderness. Full range of motion. Female : Normal external genitalia. Skin: Warm, dry with normal turgor. Normal color with no rashes, no lesions, and no evidence of cellulitis. MS/ Extremity: Pulses equal, no cyanosis. Neurovascular intact. Full, normal range of motion. Neuro: Awake and alert, GCS 15, oriented to person, place, time, and situation. Cranial nerves II-XII grossly intact. Motor strength 5/5 in all extremities. Sensory grossly intact. Cerebellar exam normal. Normal gait. Psych: Awake, alert, with orientation to person, place and time. Behavior, mood, and affect are within normal limits. 15:33 Abdomen/GI: Inspection: abdomen appears normal, Bowel sounds: normal, Palpation: mild abdominal tenderness, Liver: no appreciated palpable abnormalities, Hernia: not appreciated. Vital Signs: 13:56 BP 184 / 116; Pulse 89; Resp 16 S; Temp 98.8(O); Pulse Ox 98% on R/A; Weight 113.4 kg jl7 (R); Height 5 ft. 5 in. (165.10 cm) (R); Pain 8/10; 15:05 BP 183 / 129; Pulse 91; Resp 17; Temp 98.2(TE); Pulse Ox 9% on R/A; mh5 16:08 BP 170 / 93; Pulse 88; Resp 18; Pulse Ox 96% on R/A; aj1 16:09 BP 170 / 93; Pulse 91; Resp 13; Temp 97.9(TE); Pulse Ox 97% on R/A; mh5 17:13 BP 178 / 103; Pulse 90; Resp 19; Temp 97.5(TE); Pulse Ox 97% on R/A; mh5 18:24 BP 129 / 94; Pulse 98; Resp 18; Temp 98.5(TE); Pulse Ox 95% on R/A; mh5 20:00 BP 160 / 86; Pulse 92; Resp 18; Pulse Ox 99% on R/A; wh 13:56 Body Mass Index 41.60 (113.40 kg, 165.10 cm) jl7 MDM: 14:03 Patient medically screened. [facility] 15:35 Data reviewed: vital signs, nurses notes, lab test result(s), EKG, radiologic studies, [facility] CT scan, plain films. 01/28 14:09 Order name: Basic Metabolic Panel; Complete Time: 16:11 [facility] 01/28 14:09 Order name: CBC with Diff; Complete Time: 16:11 [facility] 01/28 14:09 Order name: LFT's; Complete Time: 16:11 [facility] 01/28 14:09 Order name: Magnesium; Complete Time: 16:11 [facility] 01/28 14:09 Order name: NT PRO-BNP; Complete Time: 16:11 [facility] 01/28 14:09 Order name: PT-INR; Complete Time: 16:11 [facility] 01/28 14:09 Order name: Troponin (emerg Dept Use Only); Complete Time: 16:11 [facility] 01/28 14:09 Order name: XRAY Chest (1 view) [facility] 01/28 14:09 Order name: Lipase; Complete Time: 16:11 [facility] 01/28 14:09 Order name: Urine Culture [facility] 01/28 14:09 Order name: CT Abd/Pelvis - PO and IV Contrast [facility] 01/28 14:45 Order name: Urine Dipstick--Ancillary (enter results) [facility] 01/28 14:09 Order name: EKG; Complete Time: 14:11 [facility] 01/28 14:09 Order name: Cardiac monitoring; Complete Time: 15:52 [facility] 01/28 14:09 Order name: EKG - Nurse/Tech; Complete Time: 16:05 [facility] 01/28 14:09 Order name: IV Saline Lock; Complete Time: 15:53 [facility] 01/28 14:09 Order name: Labs collected and sent; Complete Time: 15:53 [facility] 01/28 14:09 Order name: O2 Per Protocol; Complete Time: 15:53 [facility] 01/28 14:09 Order name: O2 Sat Monitoring; Complete Time: 15:53 [facility] 01/28 14:09 Order name: Urine Dipstick-Ancillary (obtain specimen); Complete Time: 14:38 [facility] Administered Medications: 15:28 Drug: morphine 2 mg {Note: RASS score 0 patient is alert.} Route: IVP; Site: left aj1 antecubital; 16:22 Follow up: Response: No adverse reaction; RASS: Alert and Calm (0) [facility] 15:29 Drug: NS 0.9% 1000 ml Route: IV; Rate: 125 ml/hr; Site: left antecubital; aj1 20:06 Follow up: Response: No adverse reaction; IV Status: Infusion continued upon admission 15:29 Drug: Zofran 4 mg Route: IVP; Site: left antecubital; aj1 16:22 Follow up: Response: No adverse reaction [facility] 16:23 Drug: morphine 2 mg {Note: RASS score 0 patient is alert.} Route: IVP; Site: left [facility] antecubital; 19:11 Follow up: Response: No adverse reaction; Pain is decreased; RASS: Alert and Calm (0) 16:23 Drug: Magnesium Sulfate 1 grams Route: IVPB; Infused Over: 1 hrs; Site: left [facility] antecubital; 19:13 Follow up: IV Status: Completed infusion; IV Intake: 100ml [facility] 19:15 Drug: Rocephin 2 grams Route: IV; Rate: per protocol; Site: left antecubital; 20:06 Follow up: Response: No adverse reaction; IV Status: Completed infusion 19:22 Drug: Flagyl 500 mg Volume: 100 ml; Route: IVPB; Rate: 200 ml/hr; Infused Over: 30 wh mins; Site: left antecubital; 20:06 Follow up: Response: No adverse reaction; IV Status: Completed infusion 20:05 Drug: Cipro 400 mg Volume: 200 ml; Route: IVPB; Infused Over: 60 mins; Site: [facility] antecubital; 20:15 Follow up: Response: No adverse reaction; IV Status: Infusion continued upon admission Disposition: 01/28/19 19:01 Hospitalization ordered by Shaista Campos for Inpatient Admission. Preliminary diagnosis are Abdominal tenderness, Diverticulitis of large intestine without perforation or abscess without bleeding - proximal sigmoid. - Bed requested for Telemetry/MedSurg (Inpatient). - Status is Inpatient Admission. - Condition is Fair. - Problem is new. - Symptoms have improved. UTI on Admission? No Signatures: Dispatcher [employer] EDSC Xiomara De La Cruz RN RN aj1 Eileen Nagel RN Philipp Vera MD MD cha Leal, Jahala, RN RN jl7 Aspen Chisholm Corrections: (The following items were deleted from the chart) 19:32 19:01 Hospitalization Ordered by A Andres CAMPBELL for Inpatient Admission. Preliminary diagnosis is Abdominal tenderness; Diverticulitis of large intestine without perforation or abscess without bleeding - proximal sigmoid. Bed requested for Telemetry/MedSurg (Inpatient). Status is Inpatient Admission. Condition is Fair. Problem is new. Symptoms have improved. UTI on Admission? No. [facility] 20:35 19:32 01/28/2019 19:01 Hospitalization Ordered by Shaista Campos MD for Inpatient Admission. wh Preliminary diagnosis is Abdominal tenderness; Diverticulitis of large intestine without perforation or abscess without bleeding - proximal sigmoid. Bed requested for Telemetry/MedSurg (Inpatient). Status is Inpatient Admission. Condition is Fair. Problem is new. Symptoms have improved. UTI on Admission? No. dw
--- NOTE | 2019-01-28 19:02 | ER ---
Nurse's Notes [facility] Name: Blanka Ferrell Age: 68 yrs Sex: Female : 1950 Arrival Date: 01/28/2019 Time: 13:39 Bed 14 Private MD: Shaista Campos C Diagnosis: Abdominal tenderness;Diverticulitis of large intestine without perforation or abscess without bleeding-proximal sigmoid Presentation: 01/28 13:50 Presenting complaint: Patient states: Dr. Gordon gave antibiotics 2 weeks ago for left jl7 sided abdominal pain, reports pain is now RLQ pain, reports nausea denies diarrhea, reports possible constipation, last BM 4 days ago. Transition of care: patient was not received from another setting of care. Onset of symptoms was January 14, 2019. Risk Assessment: Do you want to hurt yourself or someone else? Patient reports no desire to harm self or others. Initial Sepsis Screen: Does the patient meet any 2 criteria? No. Patient's initial sepsis screen is negative. Does the patient have a suspected source of infection? No. Patient's initial sepsis screen is negative. Care prior to arrival: None. 13:50 Method Of Arrival: Ambulatory 7 13:50 Acuity: THALIA 3 jl7 Triage Assessment: 13:56 General: Appears in no apparent distress. uncomfortable, Behavior is calm, cooperative, jl7 appropriate for age. Pain: Complains of pain in right lower quadrant and left lower quadrant Pain currently is 8 out of 10 on a pain scale. GI: Reports lower abdominal pain. Historical: - Allergies: 13:56 Imitrex; jl7 - Home Meds: 13:56 Breo Ellipta 100-25 mcg/dose inhalation dsdv 1 puff once daily [Active]; buspirone 5 mg jl7 Oral tab 1 tab 2 times per day [Active]; chlordiazepoxide HCl 10 mg Oral cap twice a day [Active]; clonidine HCl 0.3 mg Oral tab three times a day [Active]; gabapentin 100 mg Oral cap twice a day [Active]; Humalog Sub-Q [Active]; Levemir subcutaneous [Active]; methimazole 10 mg Oral tab 1 tab once daily [Active]; mirtazapine 15 mg Oral tab 1 tab once daily [Active]; - PMHx: 13:56 Anxiety; Diabetes - IDDM; Hypertension; Migraines; Thyroid problem; jl7 - PSHx: 13:56 Hysterectomy; Cholecystectomy; jl7 - Immunization history:: Adult Immunizations not up to date. - Social history:: Smoking status: Patient/guardian denies using tobacco. - Ebola Screening: : No symptoms or risks identified at this time. Screenin:30 Abuse screen: Denies threats or abuse. Denies injuries from another. Nutritional aj1 screening: No deficits noted. Tuberculosis screening: No symptoms or risk factors identified. 18:15 Fall Risk None identified. aj1 Assessment: 14:30 General: Appears in no apparent distress. uncomfortable, Behavior is calm, cooperative, aj1 appropriate for age. Pain: Complains of pain in back and right upper quadrant and right lower quadrant. Neuro: Level of Consciousness is awake, alert, obeys commands, Oriented to person, place, time, situation. Cardiovascular: Patient's skin is warm and dry. Rhythm is sinus rhythm. Respiratory: Airway is patent Respiratory effort is even, unlabored, Respiratory pattern is regular, symmetrical, Breath sounds are clear bilaterally. GI: Abdomen is round distended, Bowel sounds present X 4 quads. Abd is soft X 4 quads Reports diarrhea, nausea, vomiting. : No signs and/or symptoms were reported regarding the genitourinary system. EENT: No signs and/or symptoms were reported regarding the EENT system. Derm: No signs and/or symptoms reported regarding the dermatologic system. Skin is pink, warm \T\ dry. normal. Musculoskeletal: No signs and/or symptoms reported regarding the musculoskeletal system. Circulation, motion, and sensation intact. 15:30 Reassessment: Patient appears in no apparent distress at this time. No changes from aj1 previously documented assessment. Patient and/or family updated on plan of care and expected duration. Pain level reassessed. Patient is alert, oriented x 3, equal unlabored respirations, skin warm/dry/pink. 16:24 Reassessment: Patient appears in no apparent distress at this time. No changes from aj1 previously documented assessment. Patient and/or family updated on plan of care and expected duration. Pain level reassessed. Patient is alert, oriented x 3, equal unlabored respirations, skin warm/dry/pink. 17:30 Reassessment: Patient and/or family updated on plan of care and expected duration. Pain aj1 level reassessed. General: Appears in no apparent distress. comfortable, Behavior is calm, cooperative, appropriate for age. Neuro: Level of Consciousness is awake, alert, obeys commands, Oriented to person, place, time, situation. Cardiovascular: Patient's skin is warm and dry. Rhythm is sinus rhythm. Respiratory: Airway is patent Respiratory effort is even, unlabored, Respiratory pattern is regular, symmetrical. Derm: Skin is pink, warm \T\ dry. normal. Musculoskeletal: Circulation, motion, and sensation intact. 18:00 Reassessment: Patient transported to CT via stretcher. aj1 18:14 Reassessment: Patient returned to room via stretcher. aj1 18:30 Reassessment: Patient appears in no apparent distress at this time. No changes from aj1 previously documented assessment. Patient and/or family updated on plan of care and expected duration. Pain level reassessed. Patient is alert, oriented x 3, equal unlabored respirations, skin warm/dry/pink. 19:30 Reassessment: Patient appears in no apparent distress at this time. Patient and/or wh family updated on plan of care and expected duration. Pain level reassessed. Patient is alert, oriented x 3, equal unlabored respirations, skin warm/dry/pink. Vital Signs: 13:56 BP 184 / 116; Pulse 89; Resp 16 S; Temp 98.8(O); Pulse Ox 98% on R/A; Weight 113.4 kg jl7 (R); Height 5 ft. 5 in. (165.10 cm) (R); Pain 8/10; 15:05 BP 183 / 129; Pulse 91; Resp 17; Temp 98.2(TE); Pulse Ox 9% on R/A; mh5 16:08 BP 170 / 93; Pulse 88; Resp 18; Pulse Ox 96% on R/A; aj1 16:09 BP 170 / 93; Pulse 91; Resp 13; Temp 97.9(TE); Pulse Ox 97% on R/A; mh5 17:13 BP 178 / 103; Pulse 90; Resp 19; Temp 97.5(TE); Pulse Ox 97% on R/A; mh5 18:24 BP 129 / 94; Pulse 98; Resp 18; Temp 98.5(TE); Pulse Ox 95% on R/A; mh5 20:00 BP 160 / 86; Pulse 92; Resp 18; Pulse Ox 99% on R/A; wh 13:56 Body Mass Index 41.60 (113.40 kg, 165.10 cm) jl7 ED Course: 13:39 Patient arrived in ED. as 13:39 Shaista Campos MD is Private Physician. as 13:52 Triage completed. jl7 13:56 Arm band placed on right wrist. Patient placed in an exam room, on a stretcher, in view jl7 of staff members. 14:00 Xiomara De La Cruz RN is Primary Nurse. aj1 14:02 Philipp Harley MD is Attending Physician. yahir 14:30 No provider procedures requiring assistance completed. aj1 14:33 Note: PO CONTRAST D/O TO PT W/INSTRUCTIONS \T\ 14:20. PT STATED WILL NEED NAUSEA MEDS bq BEFORE ABLE TO DRINK. RELAYED MESSAGE TO BELLA \T\ SUZANNE. 14:36 XRAY Chest (1 view) In Process Unspecified. EDMS 14:57 Patient has correct armband on for positive identification. Placed in gown. Bed in low mh5 position. Call light in reach. Side rails up X 1. Adult w/ patient. Warm blanket given. Pulse ox on. NIBP on. 14:57 Missed attempt(s): 20 gauge in right antecubital area. 22 gauge forearm. 5 15:05 Initial lab(s) drawn, by al, sent to lab. Inserted saline lock: 22 gauge in left jl7 antecubital area, using aseptic technique. Blood collected. 16:08 Radiology exam delayed due to PT HAS NOT FINISHED PO CONTRAST. mw3 18:05 CT Abd/Pelvis - PO and IV Contrast In Process Unspecified. EDMS 18:05 CT completed. Patient tolerated procedure well. Patient moved back from CT. bq 18:59 Shaista Campos MD is Hospitalizing Provider. yahir 20:14 Patient admitted, IV remains in place. Administered Medications: 15:28 Drug: morphine 2 mg {Note: RASS score 0 patient is alert.} Route: IVP; Site: left aj1 antecubital; 16:22 Follow up: Response: No adverse reaction; RASS: Alert and Calm (0) [facility] 15:29 Drug: NS 0.9% 1000 ml Route: IV; Rate: 125 ml/hr; Site: left antecubital; aj1 20:06 Follow up: Response: No adverse reaction; IV Status: Infusion continued upon admission 15:29 Drug: Zofran 4 mg Route: IVP; Site: left antecubital; [facility] 16:22 Follow up: Response: No adverse reaction [facility] 16:23 Drug: morphine 2 mg {Note: RASS score 0 patient is alert.} Route: IVP; Site: left [facility] antecubital; 19:11 Follow up: Response: No adverse reaction; Pain is decreased; RASS: Alert and Calm (0) 16:23 Drug: Magnesium Sulfate 1 grams Route: IVPB; Infused Over: 1 hrs; Site: left [facility] antecubital; 19:13 Follow up: IV Status: Completed infusion; IV Intake: 100ml [facility] 19:15 Drug: Rocephin 2 grams Route: IV; Rate: per protocol; Site: left antecubital; 20:06 Follow up: Response: No adverse reaction; IV Status: Completed infusion 19:22 Drug: Flagyl 500 mg Volume: 100 ml; Route: IVPB; Rate: 200 ml/hr; Infused Over: 30 wh mins; Site: left antecubital; 20:06 Follow up: Response: No adverse reaction; IV Status: Completed infusion 20:05 Drug: Cipro 400 mg Volume: 200 ml; Route: IVPB; Infused Over: 60 mins; Site: left antecubital; 20:15 Follow up: Response: No adverse reaction; IV Status: Infusion continued upon admission Intake: 19:13 IV: 100ml; Total: 100ml. [facility] Outcome: 19:01 Decision to Hospitalize by Provider. yahir 20:13 Admitted to Med/surg accompanied by tech, family with patient, via wheelchair, room wh 229, with chart, Report called to Tessa Ansari RN 20:13 Condition: stable 20:13 Instructed on the need for admit. 20:35 Patient left the ED. Signatures: Dispatcher [employer] EDXiomara Bowen RN RN aj1 Philipp Harley MD MD cha Quilty, Betty bq Martinez, Ирина Neely 5 Caroline Callaway RN RN jl7 Aspen Chisholm Myra Hughes mw3 Corrections: (The following items were deleted from the chart) 16:04 15:55 Radiology exam delayed due to mw3 mw3 19:22 19:21 Flagyl 500 mg 100 ml IVPB at 200 ml/hr in left antecubital over 30 mins 100 ml aj1wh
[2019-01-28] MEDS ORDERED: METRONIDAZOLE 500mg IVPB 500 MG/100 ML BAG IV ONE (19:09)
[2019-01-28] MEDS ORDERED: CIPROFLOXACIN 400mg IV 400 MG/200 ML BAG IV ONE (19:09)
[2019-01-28] MEDS ORDERED: CEFTRIAXONE/SWI 1gm 2 GM/20 ML SYR ONE (19:09)
[2019-01-28 20:09] LABS: Urine Blood TRACE (NEG); Urine Glucose NEGATIVE (NEG); Urine Protein NEGATIVE (NEG); Urine pH 6.5 (5.0-7.0)
[2019-01-28 20:43] VITALS: BMI 39.3
[2019-01-28] MEDS ORDERED: D50W 25 GM/50 ML SYRINGE/VIAL IV PRN (20:58)
[2019-01-28] MEDS ORDERED: GLUCAGON 1 MG/VIAL IM PRN (20:58)
[2019-01-28] MEDS: NA CHLORIDE 0.9% 1,000 ML IV SCH (20:58)
[2019-01-28] MEDS ORDERED: ACETAMINOPHEN 500 MG TAB PO PRN (20:58)
[2019-01-28] MEDS: INSULIN -REGULAR HUMAN 50 UNIT/0.5 ML ML SQ SCH (21:00)
[2019-01-28] MEDS ORDERED: CIPROFLOXACIN 400mg IV 400 MG/200 ML BAG IV SCH (21:00)
[2019-01-28] MEDS: MORPHINE 4 MG/ML SYR IV PRN (21:43)
[2019-01-28] MEDS: FAMOTIDINE 20 MG/2 ML VIAL IV SCH (21:47)
[2019-01-28] MEDS: ONDANSETRON 4 MG/2 ML VIAL IV PRN (22:50)
[2019-01-28] MEDS: METRONIDAZOLE 500mg IVPB 500 MG/100 ML BAG IV SCH (23:43)
[2019-01-29] MEDS: MORPHINE 4 MG/ML SYR IV PRN ×5 (01:44→21:23)
[2019-01-29] MEDS: METRONIDAZOLE 500mg IVPB 500 MG/100 ML BAG IV SCH ×3 (05:01→18:44)
[2019-01-29] MEDS: NA CHLORIDE 0.9% 1,000 ML IV SCH ×2 (06:06→16:27)
[2019-01-29] MEDS: CIPROFLOXACIN 400mg IV 400 MG/200 ML BAG IV SCH ×2 (06:06→18:44)
[2019-01-29] MEDS: ONDANSETRON 4 MG/2 ML VIAL IV PRN ×2 (06:20→22:01)
[2019-01-29 06:29] LABS: Absolute Lymphocytes (CBC) 1.2 K/uL (0.7-4.9); Basophils % 0.8 % (0-1.3); Lymphocytes % 22.4 % (15.3-44.8); MPV 8.6 fL (7.6-11.3)
[2019-01-29 06:48] LABS: ALT/SGPT 14 U/L (12-78); AST/SGOT 12 U/L (15-37); Alkaline Phosphatase 118 U/L (45-117); BUN Blood Urea Nitrogen 5 mg/dL (7-18); Bicarbonate 27 mmol/L (21-32); Bilirubin Direct 0.2 mg/dL (0-0.2); Bilirubin Total 0.4 mg/dL (0.2-1.0); Glucose Level 193 mg/dL (74-106); Lipase 48 U/L (73-393); Potassium 3.2 mmol/L (3.5-5.1); Protein, Total 7.1 g/dL (6.4-8.2); Sodium Level 138 mmol/L (136-145)
[2019-01-29] MEDS ORDERED: D50W 25 GM/50 ML SYRINGE/VIAL IV PRN (07:02)
[2019-01-29] MEDS ORDERED: GLUCAGON 1 MG/VIAL IM PRN (07:02)
[2019-01-29] MEDS ORDERED: HYDROCODONE/APAP 5/325 MG TAB PO PRN (07:17)
--- NOTE | 2019-01-29 07:43 | EKG ---
Test Date: 2019-01-28 Test Time: 16:03:01 Fx Artist: LISA MEASUREMENT RESULTS: Intervals: Rate: 86 UT: 162 QRSD: 172 QT: 446 QTc: 533 Crook: P: 46 UT: 162 QRS: -8 T: 36 INTERPRETIVE STATEMENTS: Normal sinus rhythm Left bundle branch block Abnormal ECG Compared to ECG 10/29/2018 08:47:45 No significant changes Electronically Signed On 01-29-19 07:42:28 [employer] by [place]
[2019-01-29] MEDS: INSULIN -REGULAR HUMAN 50 UNIT/0.5 ML ML SQ SCH ×4 (08:50→21:26)
[2019-01-29] MEDS: ENOXAPARIN 40 MG/0.4 ML SQ SCH (08:51)
[2019-01-29] MEDS: INSULIN GLARGINE 100 UNITS/ML SQ SCH (08:51)
[2019-01-29] MEDS: GABAPENTIN 100 MG CAP PO SCH ×2 (08:51→21:27)
[2019-01-29] MEDS: HYDRALAZINE HCL 25 MG TABLET PO SCH ×3 (08:51→21:27)
[2019-01-29] MEDS: FAMOTIDINE 20 MG/2 ML VIAL IV SCH ×2 (08:51→21:25)
[2019-01-29] MEDS: AMLODIPINE 5 MG TAB PO SCH ×2 (08:51→21:27)
[2019-01-29] MEDS: HOME MED 1 EA UNK (Fluticasone/Vilanterol [Breo Ellipta 100-25 Mcg Inh] 1 PUFF) IN SCH (08:58)
[2019-01-29] MEDS: CLONIDINE HCL 0.3 MG TAB PO SCH ×2 (13:46→21:27)
[2019-01-29] MEDS ORDERED: INSULIN GLARGINE 100 UNITS/ML SQ SCH (21:00)
[2019-01-29] MEDS ORDERED: QUETIAPINE FUMARATE PO SCH (21:00)
[2019-01-29] MEDS ORDERED: MIRTAZAPINE 15 MG TAB PO SCH (21:00)
[2019-01-30] MEDS: METRONIDAZOLE 500mg IVPB 500 MG/100 ML BAG IV SCH ×2 (01:11→05:40)
[2019-01-30] MEDS: NA CHLORIDE 0.9% 1,000 ML IV SCH (02:58)
--- NOTE | 2019-01-30 03:19 | HP ---
Date of Admission: 01/29/2019 Chief Complaint: Abdominal pain. History Of Present Illness: Ms. Ferrell is a 68-year-old pleasant female patient with history of diverticulitis, who was in the emergency room in November 2018, was diagnosed with diverticulitis, was given antibiotics. She has seen Dr. Gordon for followup and says that she saw him last time was about 2 weeks ago. Her abdominal pain got better, did not go away completely as she reports, but in last few days, pain has gotten worse in last couple of days or so with some nausea. No fever. No chills. No constipation, diarrhea. No bleeding. Patient was evaluated in the emergency room. She was admitted to the hospital with acute diverticulitis. Allergies: NO KNOWN ALLERGIES ACCORDING TO PRIOR RECORDS, BUT CURRENT RECORDS SHOWS SHE IS ALLERGIC TO IMITREX. Medications: List reviewed. Review of Systems: GI: As mentioned above. All other systems reviewed and negative. Past Medical History: Significant for hypertension, hyperthyroidism, hyperlipidemia, diverticulosis, chronic diastolic congestive heart failure, coronary artery disease, diabetes mellitus, and insomnia. Past Surgical History: Hernia repair, cholecystectomy, ankle surgery. Family History: Significant for history of blood clot. Daughter with end- stage renal disease, on hemodialysis, heart disease, hypertension, and diabetes. Social History: Negative for smoking or alcohol use. Physical Examination: Vital Signs: Temperature 97, pulse 93, respiratory rate 19, blood pressure 173/ 83, oxygen saturation 96%. Height 5 feet 5 inches, weight 236 pounds. General: Awake, alert, oriented, not in distress. HEENT: Head atraumatic, normocephalic. Conjunctivae nonerythematous. Sclerae white. Mouth, no thrush or edema noted. Ears/Nose, no mass, lesion, discharge noted. Neck: Supple. No JVD, lymph nodes, bruit, thyromegaly noted. Lungs: Bilateral good equal air entry. Clear to auscultation. No rhonchi. No rales. Heart: Normal heart sounds, no murmur or gallop. Abdomen: Soft, bowel sounds normal. No guarding, rigidity. No rebound tenderness. Patient does have mild tenderness scattered all over abdomen. Extremities: No leg edema. No calf tenderness. Skin: No rash, ulcer, cellulitis. Lymphatics: No lymph node enlargement in neck, supraclavicular, infraclavicular region. Neuro: No focal neurological deficit. Chest: Unremarkable. External Genitalia: Deferred. Rectal: Deferred. Laboratory Data: Yesterday's white count 4.7, hemoglobin 13.3, platelets 215. Today, white count 5.2, hemoglobin 12.6, platelets 210. Yesterday, sodium 138, potassium 3.7, chloride 103, bicarb 28, BUN 8, creatinine 0.77, glucose 211. Liver function tests unremarkable. Magnesium 1.7. Troponin less than 0.02. Lipase 59. Today, lipase is 48. Liver function tests unremarkable. Sodium 138 , potassium 3.2, chloride 105, bicarb 27, BUN 5, creatinine 0.70, glucose 190. Urinalysis; trace leukocyte esterase, otherwise negative. Imaging Data: Chest x-ray, no acute cardiopulmonary changes. CAT scan of abdomen shows minimal diverticulitis changes in proximal sigmoid colon. Pattern is similar to December 08, 2018 study. No abscess. No free air. Impression: 1. Acute diverticulitis without perforation, without bleeding. 2. Coronary artery disease. 3. Hypertension. 4. Type 2 diabetes mellitus, uncontrolled. 5. Hyperthyroidism. 6. Hyperlipidemia. 7. Chronic diastolic congestive heart failure. Plan: Admit patient to hospital for further evaluation and management of this problem. Patient is appropriate for inpatient and is expected to spend 2 midnights in hospital. We will leave her on clear liquid diet today. Home medications will be continued per order with the lower dose of her long-acting insulin per order. IV antibiotics will be given. Consultation was requested from Dr. Gordon and I will see her tomorrow for followup. DVT prophylaxis will be given using Lovenox per order. Details and plan of treatment discussed with the patient and her daughter was on the phone, listening to me while I was talking to the patient. TONG/MODL Voice ID: [id number] MTDD
[2019-01-30 04:00] VITALS: O2SAT 95
[2019-01-30] MEDS: ONDANSETRON 4 MG/2 ML VIAL IV PRN (05:39)
[2019-01-30] MEDS: MORPHINE 4 MG/ML SYR IV PRN (05:39)
[2019-01-30] MEDS ORDERED: POTASSIUM CL SA 10 MEQ TAB PO ONE (07:51)
[2019-01-30] MEDS: INSULIN -REGULAR HUMAN 50 UNIT/0.5 ML ML SQ SCH (08:59)
[2019-01-30] MEDS: HOME MED 1 EA UNK (Fluticasone/Vilanterol [Breo Ellipta 100-25 Mcg Inh] 1 PUFF) IN SCH (09:00)
[2019-01-30] MEDS: INSULIN GLARGINE 100 UNITS/ML SQ SCH (09:00)
[2019-01-30] MEDS: ENOXAPARIN 40 MG/0.4 ML SQ SCH (09:01)
[2019-01-30] MEDS: CIPROFLOXACIN 400mg IV 400 MG/200 ML BAG IV SCH (09:01)
[2019-01-30] MEDS: CLONIDINE HCL 0.3 MG TAB PO SCH (09:02)
[2019-01-30] MEDS: FAMOTIDINE 20 MG/2 ML VIAL IV SCH (09:03)
[2019-01-30] MEDS: HYDRALAZINE HCL 25 MG TABLET PO SCH (09:03)
[2019-01-30] MEDS: AMLODIPINE 5 MG TAB PO SCH (09:03)
[2019-01-30] MEDS: GABAPENTIN 100 MG CAP PO SCH (09:03)
[2019-01-30 13:01] VITALS: BP 175/87; TEMP 97.3
--- NOTE | 2019-01-31 02:59 | DS ---
Date of Discharge: 01/30/2019 Subjective: Patient was seen this morning for followup, reported that her abdominal pain was better compared to yesterday. No nausea. No vomiting. Still has some nausea. Objective: Vital Signs: Reviewed. HEENT: Unremarkable. Lungs: Clear to auscultation. Heart: Heart sounds normal. Abdomen: Soft, bowel sounds normal. No guarding, rigidity, distention. Has some mild tenderness in upper abdomen mainly in epigastric region. Extremities: No leg edema. Hospital Course: A 68-year-old female patient admitted to the hospital with abdominal pain. Please see dictated H and P for more information. After patient was evaluated in the emergency room, she wa s admitted to the hospital with acute diverticulitis. There was no evidence of any abscess or perfor ation. She was given clear liquid diet. IV fluid, IV antibiotic was started and home medications we re continued. Dr. Gordon from [facility] was requested for consultation and when I saw her this morn ing, patient reported that Dr. Gordon did not have chance to visit her yet, so I have advised her to follow up with him next week at his office. She is having more pain in the epigastric region than th e left lower quadrant and I suspect that this may be due to upper GI etiology like gastritis, gastric ulcer, etc., we need to rule out and she was suggested that she should follow up with Dr. Gordon and let him perform EGD on outpatient basis and she will do so. I also instructed that she should follo w up with structural steel fitter in [place] for her uncontrolled diabetes. Her diet was advanced today and subsequently she was discharged to go home in stable condition. Final Diagnoses: 1.Acute diverticulitis without perforation, without bleeding. 2.Coronary artery disease. 3.Hypertension. 4.Type 2 diabetes mellitus, uncontrolled. 5.Hyperlipidemia. 6.Hyperthyroidism. 7.Chronic diastolic congestive heart failure. 8.Hypomagnesemia. Discharge Medications And Instructions: 1.Continue all prior home medications. 2.Take Cipro 500 mg twice a day for 10 days. 3.Metronidazole 500 mg 3 times a day for 10 days. 4.Pantoprazole 40 mg p.o. daily. 5.Follow up with Dr. Gordon next week. 6.Follow up at my office during first week of February 2019, and call office for appointment. Laboratory Data: Labs done during this hospitalization: On 01/28/2019, white count 4.7, hemoglobin 13.3, platelets 215. Today, white count 5.2, hemoglobin 12.6, platelets 210. On 01/28/2019, sodium 138, potassium 3.7, chloride 103, bicarb 28, BUN 8, creatinine 0.77, glucose 211, magnesium 1.7. Emily er function tests unremarkable. Troponin less than 0.02. Lipase 59. TONG/MODL Voice ID: [id number] Report ID: [id number]
[2019-02-26] MEDS ORDERED: ONDANSETRON 4 MG/2 ML VIAL IV PRN (15:47)
[2019-02-26] MEDS ORDERED: MORPHINE 4 MG/ML SYR IV PRN (15:47)
[2019-02-26] MEDS ORDERED: NA CHLORIDE 0.9% 1,000 ML IV SCH (16:00)
== END 2019-01-30 12:36 | disposition home or self-care (01) | DRG 392 ==
LOC: ER 13:36 → ERHOLD 19:05 → 2ND 20:15
PROVIDERS: ADMIT Internal Medicine; ATTEND Internal Medicine
DX: K57.92 Diverticulitis of intestine, part unspecified, without perforation or abscess without bleeding (principal); I50.32 Chronic diastolic (congestive) heart failure; I11.0 Hypertensive heart disease with heart failure; E83.42 Hypomagnesemia; E05.90 Thyrotoxicosis, unspecified without thyrotoxic crisis or storm; I25.10 Atherosclerotic heart disease of native coronary artery without angina pectoris; E11.9 Type 2 diabetes mellitus without complications; G47.00 Insomnia, unspecified; E78.5 Hyperlipidemia, unspecified
CPT/HCPCS: 36415; 71045; 74177; 80048; 80076; 81003; 82947; 83690; 83735; 83880; 84484; 85025; 85610; 87086; 87088; 93005; 96361; 96365; 96366; 96367; 96368; 96375; 99285; J0696; J0744; J1650; J1815; J2270; J2405; J3475; J7030; Q9967

== ENCOUNTER 2019-02-26 09:35 | Inpatient (IN) | payer OTHER ==
--- OUTSIDE RECORDS SUMMARY | 2019-02-26 09:37 | XMS REPORT ---
:1950 [facility] Address [address] [place] [address] Dr. Estrada [address] [place] [id number] Care Team Providers Name Role Phone Unavailable Unavailable Unavailable Problems This patient has no known problems. Allergies, Adverse Reactions, Alerts This patient has no known allergies or adverse reactions. Medications This patient has no known medications.
--- NOTE | 2019-02-26 10:26 | EKG ---
Test Date: 2019-02-26 Test Time: 10:24:24 Scanning Clerk: ANTONY MEASUREMENT RESULTS: Intervals: Rate: 107 NY: 132 QRSD: 164 QT: 414 QTc: 552 Derwent: P: 51 NY: 132 QRS: -24 T: 113 INTERPRETIVE STATEMENTS: Sinus tachycardia Possible Left atrial enlargement Left bundle branch block Abnormal ECG Compared to ECG 01/28/2019 16:03:01 Sinus rhythm no longer present Electronically Signed On 02-26-19 10:25:49 CRAFT SUPERINTENDENT by Los Schroeder
[2019-02-26] MEDS ORDERED: METOPROLOL TARTRATE 5 MG/5 ML INJ IV ONE ×2 (10:35→11:29)
[2019-02-26] MEDS ORDERED: NA CHLORIDE 0.9% 1,000 ML ONE (10:35)
[2019-02-26] MEDS ORDERED: PROMETHAZINE INJ 25 MG/ML AMP ONE (10:35)
[2019-02-26] MEDS ORDERED: MORPHINE 4 MG/ML SYR ONE (10:36)
--- NOTE | 2019-02-26 10:55 | RAD REPORT ---
EXAM DESCRIPTION: CT - Head Brain Wo Cont - 02/26/2019 10:34 am CLINICAL HISTORY: Headache COMPARISON: 2018 TECHNIQUE: Computed axial tomography of the head was obtained. IV contrast was not requested. All CT scans are performed using dose optimization technique as appropriate and may include automated exposure control or mA/KV adjustment according to patient size. FINDINGS: An intracranial bleed is not seen . The ventricles are normal in caliber. No extra-axial fluid collection is noted. Small low-density area has developed within the right basal ganglia. Old left cerebellar infarction Fluid within the sinuses/ mastoids is not seen. IMPRESSION: Small low-density area within the right basal ganglia consistent with lacunar infarct. T he age is indeterminate. If clinically indicated further evaluation with MRI would be helpful
[2019-02-26 11:09] LABS: Absolute Lymphocytes (CBC) 0.7 K/uL (0.7-4.9); Basophils % 0.9 % (0-1.3); Hematocrit 47.2 % (36.0-45.0); Lymphocytes % 8.1 % (15.3-44.8); MPV 9.1 fL (7.6-11.3); RBC Red Blood Cell Count 5.61 M/uL (3.86-4.86)
[2019-02-26 11:13] LABS: Protime INR 1.19
[2019-02-26 11:28] LABS: ALT/SGPT 18 U/L (12-78); AST/SGOT 13 U/L (15-37); Albumin 3.8 g/dL (3.4-5.0); Alkaline Phosphatase 128 U/L (45-117); BUN Blood Urea Nitrogen 9 mg/dL (7-18); Bicarbonate 28 mmol/L (21-32); Bilirubin Direct 0.2 mg/dL (0-0.2); Bilirubin Total 0.6 mg/dL (0.2-1.0); Glucose Level 389 mg/dL (74-106); Lipase 68 U/L (73-393); Magnesium 1.8 mg/dL (1.8-2.4); NT PRO-BNP 5305 pg/mL (<125); Potassium 3.5 mmol/L (3.5-5.1); Sodium Level 139 mmol/L (136-145); Troponin (Emerg Dept Use Only) < 0.02 ng/mL (0.0-0.045)
[2019-02-26] MEDS ORDERED: cloNIDine HCL 0.1 MG TAB ONE (11:58)
--- NOTE | 2019-02-26 12:19 | RAD REPORT ---
EXAM DESCRIPTION: RAD - Chest Single View - 02/26/2019 12:05 pm CLINICAL HISTORY: Hypertension, headache, abdominal pain COMPARISON: January 28, 2019 TECHNIQUE: AP portable chest image was obtained 1138 hour . FINDINGS: Lung volumes are very low. No peripheral consolidation. Mass is unlikely. The rounded dens ity in the medial right chest is probably the right pulmonary artery seen on and. The patient is rota max. Trachea is midline. Heart size is normal. No measurable pleural effusion and no pneumothorax. No acute bony abnormality seen. No acute aortic findings suspected. IMPRESSION: Portable chest is significantly limited but appears to be clear of acute cardiopulmonary finding.
[2019-02-26] MEDS ORDERED: LORazepam 2 MG/ML VIAL ONE (12:35)
--- NOTE | 2019-02-26 15:02 | ER ---
Nurse's Notes [facility] Name: Blanka Ferrell Age: 68 yrs Sex: Female : 1950 Arrival Date: 02/26/2019 Time: 09:39 Bed 7 Private MD: Shaista Campos C Diagnosis: Severe headache Uncontrolled hypertension and diabetes. Gastroenteritis Presentation: 02/26 09:46 Presenting complaint: Patient states: headache for several days, nausea since iw yesterday, can't sleep, daughter a couple day ago, is taking zofran at home. Transition of care: patient was not received from another setting of care. Onset of symptoms was February 24, 2019. Risk Assessment: Do you want to hurt yourself or someone else? Patient reports no desire to harm self or others. Initial Sepsis Screen: Does the patient meet any 2 criteria? No. Patient's initial sepsis screen is negative. Does the patient have a suspected source of infection? No. Patient's initial sepsis screen is negative. Care prior to arrival: None. 09:46 Method Of Arrival: Wheelchair iw 09:46 Acuity: THALIA 3 iw Historical: - Allergies: 09:49 Imitrex; iw - Home Meds: 09:49 Breo Ellipta 100-25 mcg/dose inhalation dsdv 1 puff once daily [Active]; buspirone 5 mg iw Oral tab 1 tab 2 times per day [Active]; carvedilol 25 mg Oral tab 2 tab 2 times per day [Active]; chlordiazepoxide HCl 10 mg Oral cap twice a day [Active]; clonidine HCl 0.3 mg Oral tab three times a day [Active]; gabapentin 100 mg Oral cap twice a day [Active]; Humalog Sub-Q [Active]; hydralazine 50 mg Oral tab three times a day [Active]; Levemir subcutaneous [Active]; losartan-hydrochlorothiazide 100-25 mg Oral tab 1 tab once daily [Active]; losartan-hydrochlorothiazide 100-25 mg Oral tab 1 tab once daily [Active]; Lyrica Oral [Active]; methimazole 10 mg Oral tab 1 tab once daily [Active]; mirtazapine 15 mg Oral tab 1 tab once daily [Active]; Tylenol #3 Oral [Active]; Stadol NS Nasal [Active]; - PMHx: 09:49 Anxiety; Diabetes - IDDM; Hypertension; Migraines; Thyroid problem; iw - PSHx: 09:49 Hysterectomy; Cholecystectomy; iw - Immunization history:: Adult Immunizations not up to date. - Social history:: Smoking status: Patient/guardian denies using tobacco. - Ebola Screening: : Patient negative for fever greater than or equal to 101.5 degrees Fahrenheit, and additional compatible Ebola Virus Disease symptoms Patient denies exposure to infectious person Patient denies travel to an Ebola-affected area in the 21 days before illness onset No symptoms or risks identified at this time. Screenin:44 Abuse screen: Denies threats or abuse. Denies injuries from another. Nutritional hb screening: No deficits noted. Tuberculosis screening: No symptoms or risk factors identified. Fall Risk None identified. Assessment: 10:15 General: Appears in no apparent distress. uncomfortable, Behavior is calm, cooperative. hb Pain: Pain currently is 8 out of 10 on a pain scale. Neuro: Level of Consciousness is awake, alert, obeys commands, Oriented to person, place, time, situation, Reports headache. Cardiovascular: Capillary refill < 3 seconds Patient's skin is warm and dry. Respiratory: Airway is patent Respiratory effort is even, unlabored, Respiratory pattern is regular, symmetrical, Breath sounds are clear bilaterally. GI: Reports nausea. : No signs and/or symptoms were reported regarding the genitourinary system. EENT: No signs and/or symptoms were reported regarding the EENT system. Derm: Skin is intact, with poor turgor Skin is pink, warm \T\ dry. Musculoskeletal: No signs and/or symptoms reported regarding the musculoskeletal system. 10:44 Reassessment: Unable to establish PIV access, Chris GRIMALDO at bedside for US guided IV. hb 11:10 Reassessment: Patient appears in no apparent distress at this time. Patient and/or hb family updated on plan of care and expected duration. Pain level reassessed. Patient is alert, oriented x 3, equal unlabored respirations, skin warm/dry/pink. 12:04 Reassessment: Patient appears in no apparent distress at this time. Patient and/or hb family updated on plan of care and expected duration. Pain level reassessed. Patient is alert, oriented x 3, equal unlabored respirations, skin warm/dry/pink. 13:30 Reassessment: Patient appears in no apparent distress at this time. Patient and/or hb family updated on plan of care and expected duration. Pain level reassessed. Patient is alert, oriented x 3, equal unlabored respirations, skin warm/dry/pink. 14:23 Reassessment: Patient appears in no apparent distress at this time. Patient and/or hb family updated on plan of care and expected duration. Pain level reassessed. Patient is alert, oriented x 3, equal unlabored respirations, skin warm/dry/pink. 15:36 Reassessment: Admission ordered, awaiting floor orders from Dr. Campos. Pt c/o headache hb 8/10, Dr. Buitrago notified, Demerol and Zofran administered as ordered. VSS. Family remains at bedside. 16:30 Reassessment: Patient appears in no apparent distress at this time. No changes from previously documented assessment. Patient and/or family updated on plan of care and expected duration. Pain level reassessed. Patient is alert, oriented x 3, equal unlabored respirations, skin warm/dry/pink. Vital Signs: 09:49 BP 205 / 116; Pulse 106; Resp 18; Temp 97.6; Pulse Ox 97% on R/A; Weight 107.05 kg; iw Height 5 ft. 5 in. (165.10 cm); Pain 8/10; 11:30 BP 219 / 131; Pulse 91; Resp 17; Pulse Ox 99% on R/A; Pain 6/10; hb 11:45 BP 203 / 113; Pulse 88; Resp 16; Pulse Ox 98% ; hb 12:30 BP 213 / 121; Pulse 87; Resp 16; Pulse Ox 97% ; sv 13:46 BP 161 / 106; Pulse 89; Resp 15; Pulse Ox 99% on R/A; Pain 5/10; hb 14:23 BP 141 / 102; Pulse 88; Resp 15; Pulse Ox 100% on R/A; hb 15:16 BP 119 / 96; Pulse 90; Resp 17; Pulse Ox 99% on R/A; hb 16:30 BP 128 / 98; Pulse 88; Resp 17; Pulse Ox 99% on R/A; Pain 3/10; hb 09:49 Body Mass Index 39.27 (107.05 kg, 165.10 cm) iw ED Course: 09:39 Patient arrived in ED. mr 09:39 Shaista Campos MD is Private Physician. mr 09:47 Triage completed. iw 09:49 Arm band placed on. iw 10:04 Issa Buitrago MD is Attending Physician. pkl 10:25 EKG done, by senior technical architect. reviewed by Issa Buitrago MD. at1 10:30 Brooke Trejo, RE is Primary Nurse. hb 10:30 Missed attempt(s): 22 gauge in right wrist. Bleeding controlled, band aid applied, ms catheter tip intact. 10:34 CT Head Brain wo Cont In Process Unspecified. EDMS 10:35 Missed attempt(s): 22 gauge in right forearm. hb 10:44 Patient has correct armband on for positive identification. Bed in low position. Call hb light in reach. Side rails up X 1. 11:00 Inserted saline lock: 18 gauge in right antecubital area, using aseptic technique. hb ,using aseptic technique. by Chris GRIMALDO Blood collected. 11:37 XRAY Chest (1 view) Sent. hb 12:06 XRAY Chest (1 view) In Process Unspecified. EDMS 15:00 Shaista Campos MD is Hospitalizing Provider. pkl 17:00 No provider procedures requiring assistance completed. Patient admitted, IV remains in hb place. Administered Medications: 11:05 Drug: NS 0.9% 500 ml Route: IV; Rate: bolus; Site: right antecubital; hb 11:36 Follow up: Response: No adverse reaction; IV Status: Completed infusion; IV Intake: hb 500ml 11:05 Drug: morphine 4 mg Route: IVP; Site: right antecubital; hb 11:46 Follow up: Response: No adverse reaction hb 11:05 Drug: Phenergan 12.5 mg Route: IVP; Site: right antecubital; hb 11:36 Follow up: Response: No adverse reaction hb 11:05 Drug: Lopressor 5 mg Route: IVP; Site: right antecubital; hb 11:37 Follow up: Response: No adverse reaction hb 11:31 Drug: Lopressor 5 mg {Note: BP 219/134, HR 91.} Route: IVP; Site: right antecubital; hb 11:36 Drug: NS 0.9% 1000 ml Route: IV; Rate: 100 ml/hr; Site: right antecubital; hb 11:46 Drug: Lopressor 5 mg {Note: BP 203/113, HR 88.} Route: IVP; Site: right antecubital; hb 11:54 Follow up: Response: No adverse reaction; No change in condition hb 12:35 Follow up: Response: No adverse reaction hb 11:55 Drug: cloNIDine 0.3 mg Route: PO; hb 12:35 Follow up: Response: No adverse reaction hb 12:35 Drug: Ativan 1 mg Route: IVP; Site: right antecubital; hb 13:00 Follow up: Response: No adverse reaction hb 15:35 Drug: Demerol 50 mg Route: IVP; Site: right antecubital; hb 16:10 Follow up: Response: No adverse reaction hb 15:36 Drug: Zofran 4 mg Route: IVP; Site: right antecubital; hb 16:00 Follow up: Response: No adverse reaction hb Intake: 11:36 IV: 500ml; Total: 500ml. hb Outcome: 15:01 Decision to Hospitalize by Provider. pkl 17:01 Admitted to Tele accompanied by tech, via wheelchair, room 205, with chart, Report iw called to [place] GRIMALDO 17:01 Condition: stable 17:01 Instructed on the need for admit. 17:16 Patient left the ED. iw Signatures: Dispatcher [employer] Margaret Landaverde RN Issa Singh MD MD pkemmanuel Fields, Faye ch Macey Bales RN Ирина Jackson ms, Amanda, activities volunteer EKG Tat1 Brooke Trejo RN RN hb Corrections: (The following items were deleted from the chart) 09:50 09:49 Pulse 106bpm; Resp 18bpm; Pulse Ox 97% RA; Temp 97.6F; 107.05 kg; Height 5 ft. 5 iw in.; BMI: 39.2; Pain 8/10; iw 11:41 11:37 Reassessment: hb hb
--- NOTE | 2019-02-26 15:02 | EDPHYS ---
Physician Documentation [facility] Name: Blanka Ferrell Age: 68 yrs Sex: Female : 1950 Arrival Date: 02/26/2019 Time: 09:39 Bed 7 Private MD: Shaista Campos C ED Physician Issa Buitrago HPI: 02/26 10:19 This 68 yrs old Black Female presents to ER via Wheelchair with complaints of Headache, pkl Vomiting, Weakness. 10:19 The patient complains of pain to the top of head and forehead. The patient describes pkl the headache as constant. Onset: The symptoms/episode began/occurred 2 day(s) ago. Associated signs and symptoms: Pertinent positives: nausea, vomiting, weakness, diarrhea and insomnia. Patient said her daughter 2 days ago. Historical: - Allergies: :49 Imitrex; iw - Home Meds: :49 Breo Ellipta 100-25 mcg/dose inhalation dsdv 1 puff once daily [Active]; buspirone 5 mg iw Oral tab 1 tab 2 times per day [Active]; carvedilol 25 mg Oral tab 2 tab 2 times per day [Active]; chlordiazepoxide HCl 10 mg Oral cap twice a day [Active]; clonidine HCl 0.3 mg Oral tab three times a day [Active]; gabapentin 100 mg Oral cap twice a day [Active]; Humalog Sub-Q [Active]; hydralazine 50 mg Oral tab three times a day [Active]; Levemir subcutaneous [Active]; losartan-hydrochlorothiazide 100-25 mg Oral tab 1 tab once daily [Active]; losartan-hydrochlorothiazide 100-25 mg Oral tab 1 tab once daily [Active]; Lyrica Oral [Active]; methimazole 10 mg Oral tab 1 tab once daily [Active]; mirtazapine 15 mg Oral tab 1 tab once daily [Active]; Tylenol #3 Oral [Active]; Stadol NS Nasal [Active]; - PMHx: 09:49 Anxiety; Diabetes - IDDM; Hypertension; Migraines; Thyroid problem; iw - PSHx: 09:49 Hysterectomy; Cholecystectomy; iw - Immunization history:: Adult Immunizations not up to date. - Social history:: Smoking status: Patient/guardian denies using tobacco. - Ebola Screening: : Patient negative for fever greater than or equal to 101.5 degrees Fahrenheit, and additional compatible Ebola Virus Disease symptoms Patient denies exposure to infectious person Patient denies travel to an Ebola-affected area in the 21 days before illness onset No symptoms or risks identified at this time. ROS: 10:22 Eyes: Negative for injury, pain, redness, and discharge, ENT: Negative for injury, pkl pain, and discharge, Neck: Negative for injury, pain, and swelling, Cardiovascular: Negative for chest pain, palpitations, and edema, Respiratory: Negative for shortness of breath, cough, wheezing, and pleuritic chest pain. 10:22 Abdomen/GI: Positive for nausea, vomiting, and diarrhea. 10:22 Back: Negative for acute changes. 10:22 : Negative for urinary symptoms. 10:22 MS/extremity: Negative for acute changes. 10:22 Skin: Negative for rash. 10:22 Neuro: Positive for headache, weakness, Negative for loss of consciousness. Exam: 10:22 Head/Face: Normocephalic, atraumatic. Eyes: Pupils equal round and reactive to light, pkl extra-ocular motions intact. Lids and lashes normal. Conjunctiva and sclera are non-icteric and not injected. Cornea within normal limits. Periorbital areas with no swelling, redness, or edema. ENT: Nares patent. No nasal discharge, no septal abnormalities noted. Tympanic membranes are normal and external auditory canals are clear. Oropharynx with no redness, swelling, or masses, exudates, or evidence of obstruction, uvula midline. Mucous membranes moist. Neck: Trachea midline, no thyromegaly or masses palpated, and no cervical lymphadenopathy. Supple, full range of motion without nuchal rigidity, or vertebral point tenderness. No Meningismus. Chest/axilla: Normal chest wall appearance and motion. Nontender with no deformity. No lesions are appreciated. Cardiovascular: Regular rate and rhythm with a normal S1 and S2. No gallops, murmurs, or rubs. Normal PMI, no JVD. No pulse deficits. Respiratory: Lungs have equal breath sounds bilaterally, clear to auscultation and percussion. No rales, rhonchi or wheezes noted. No increased work of breathing, no retractions or nasal flaring. 10:22 Abdomen/GI: Bowel sounds: active, Palpation: abdomen is soft and non-tender, in all quadrants. 10:22 Back: Exam negative for acute changes. 10:22 : Exam negative for acute changes. 10:22 Musculoskeletal/extremity: Exam is negative for acute changes. 10:22 Skin: Exam negative for rash. 10:22 Neuro: Orientation: is normal, Mentation: is normal, Cranial nerves: grossly normal, Cerebellar function: heel to durand testing is normal, Motor: is normal, Sensation: is normal, Gait: is steady. Vital Signs: 09:49 BP 205 / 116; Pulse 106; Resp 18; Temp 97.6; Pulse Ox 97% on R/A; Weight 107.05 kg; iw Height 5 ft. 5 in. (165.10 cm); Pain 8/10; 11:30 BP 219 / 131; Pulse 91; Resp 17; Pulse Ox 99% on R/A; Pain 6/10; hb 11:45 BP 203 / 113; Pulse 88; Resp 16; Pulse Ox 98% ; hb 12:30 BP 213 / 121; Pulse 87; Resp 16; Pulse Ox 97% ; sv 13:46 BP 161 / 106; Pulse 89; Resp 15; Pulse Ox 99% on R/A; Pain 5/10; hb 14:23 BP 141 / 102; Pulse 88; Resp 15; Pulse Ox 100% on R/A; hb 15:16 BP 119 / 96; Pulse 90; Resp 17; Pulse Ox 99% on R/A; hb 16:30 BP 128 / 98; Pulse 88; Resp 17; Pulse Ox 99% on R/A; Pain 3/10; hb 09:49 Body Mass Index 39.27 (107.05 kg, 165.10 cm) iw MDM: 10:04 Patient medically screened. pkl 14:59 Data reviewed: vital signs, nurses notes, lab test result(s), EKG, radiologic studies, pkl CT scan, plain films. ED course: Talked to moshe Sheppard. 02/26 10:17 Order name: Basic Metabolic Panel; Complete Time: 11:37 pkl 02/26 10:17 Order name: CBC with Diff; Complete Time: 11:17 pkl 02/26 10:17 Order name: LFT's; Complete Time: 11:37 pkl 02/26 10:17 Order name: Magnesium; Complete Time: 11:37 pkl 02/26 10:17 Order name: NT PRO-BNP; Complete Time: 11:38 pkl 02/26 10:17 Order name: PT-INR; Complete Time: 11:37 pk 02/26 10:17 Order name: Troponin (emerg Dept Use Only); Complete Time: 11:37 pkl 02/26 10:17 Order name: Lipase; Complete Time: 11:37 pk 02/26 10:18 Order name: Stool Culture pk 02/26 10:22 Order name: Hemoglobin A1c pk 02/26 16:58 Order name: Basic Metabolic Panel EDMS 02/26 16:58 Order name: Basic Metabolic Panel EDMS 02/26 16:58 Order name: CBC with Automated Diff EDMS 02/26 16:58 Order name: CBC with Automated Diff EDMS 02/26 10:17 Order name: XRAY Chest (1 view); Complete Time: 14:31 pk 02/26 10:18 Order name: CT Head Brain wo Cont; Complete Time: 11:17 pk 02/26 11:54 Order name: MRA Head Wo Cont EDMS 02/26 11:55 Order name: MRA Neck W/Wo Cont EDMS 02/26 11:55 Order name: Brain W/Wo Cont EDMS 02/26 10:17 Order name: EKG; Complete Time: 10:18 pk 02/26 10:17 Order name: Cardiac monitoring; Complete Time: 10:19 pk 02/26 10:17 Order name: EKG - Nurse/Tech; Complete Time: 10:31 pk 02/26 10:17 Order name: IV Saline Lock; Complete Time: 11:02 pk 02/26 10:17 Order name: Labs collected and sent; Complete Time: 11:03 pk 02/26 10:17 Order name: O2 Per Protocol; Complete Time: 10:19 pk 02/26 10:17 Order name: O2 Sat Monitoring; Complete Time: 10:19 pk 02/26 16:58 Order name: CONS Physician Consult EDWV 02/26 16:58 Order name: Consistent Carb (ADA) 1800 [address] EDMS Administered Medications: 11:05 Drug: NS 0.9% 500 ml Route: IV; Rate: bolus; Site: right antecubital; hb 11:36 Follow up: Response: No adverse reaction; IV Status: Completed infusion; IV Intake: hb 500ml 11:05 Drug: morphine 4 mg Route: IVP; Site: right antecubital; hb 11:46 Follow up: Response: No adverse reaction hb 11:05 Drug: Phenergan 12.5 mg Route: IVP; Site: right antecubital; hb 11:36 Follow up: Response: No adverse reaction hb 11:05 Drug: Lopressor 5 mg Route: IVP; Site: right antecubital; hb 11:37 Follow up: Response: No adverse reaction hb 11:31 Drug: Lopressor 5 mg {Note: BP 219/134, HR 91.} Route: IVP; Site: right antecubital; hb 11:36 Drug: NS 0.9% 1000 ml Route: IV; Rate: 100 ml/hr; Site: right antecubital; hb 11:46 Drug: Lopressor 5 mg {Note: BP 203/113, HR 88.} Route: IVP; Site: right antecubital; hb 11:54 Follow up: Response: No adverse reaction; No change in condition hb 12:35 Follow up: Response: No adverse reaction hb 11:55 Drug: cloNIDine 0.3 mg Route: PO; hb 12:35 Follow up: Response: No adverse reaction hb 12:35 Drug: Ativan 1 mg Route: IVP; Site: right antecubital; hb 13:00 Follow up: Response: No adverse reaction hb 15:35 Drug: Demerol 50 mg Route: IVP; Site: right antecubital; hb 16:10 Follow up: Response: No adverse reaction hb 15:36 Drug: Zofran 4 mg Route: IVP; Site: right antecubital; hb 16:00 Follow up: Response: No adverse reaction hb Disposition: 02/26/19 15:01 Hospitalization ordered by Shaista Campos for Inpatient Admission. Preliminary diagnosis is Severe headache Uncontrolled hypertension and diabetes. Gastroenteritis. - Bed requested for Telemetry/MedSurg (Inpatient). - Status is Inpatient Admission. iw - Condition is Stable. - Problem is new. - Symptoms have improved. UTI on Admission? No Signatures: Dispatcher [employer] EDErica Antoine Pin, MD MD pkl Williams, Irene, RN RN iw Brooke Trejo RN RN hb Corrections: (The following items were deleted from the chart) 11:54 11:44 MR STROKE PROTOCOL+MRI.RAD.BRZ ordered. EDMS EDMS 16:43 15:01 Hospitalization Ordered by A Andres CAMPBELL for Inpatient Admission. Preliminary bd diagnosis is Severe headache Uncontrolled hypertension and diabetes. Gastroenteritis. Bed requested for Telemetry/MedSurg (Inpatient). Status is Inpatient Admission. Condition is Stable. Problem is new. Symptoms have improved. UTI on Admission? No. pkl 17:16 16:43 02/26/2019 15:01 Hospitalization Ordered by A Andres CAMPBELL for Inpatient Admission. iw Preliminary diagnosis is Severe headache Uncontrolled hypertension and diabetes. Gastroenteritis. Bed requested for Telemetry/MedSurg (Inpatient). Status is Inpatient Admission. Condition is Stable. Problem is new. Symptoms have improved. UTI on Admission? No. bd
[2019-02-26] MEDS ORDERED: MEPERIDINE HCL 50 MG/ML ONE (15:21)
[2019-02-26] MEDS ORDERED: ONDANSETRON 4 MG/2 ML VIAL ONE (15:21)
[2019-02-26] MEDS ORDERED: GLUCAGON 1 MG/VIAL IM PRN (16:56)
[2019-02-26] MEDS ORDERED: D50W 25 GM/50 ML SYRINGE/VIAL IV PRN (16:56)
[2019-02-26 17:54] VITALS: BMI 37.7
[2019-02-26] MEDS: NA CHLORIDE 0.9% 1,000 ML IV SCH (18:11)
[2019-02-26] MEDS: MORPHINE 4 MG/ML SYR IV PRN (18:33)
[2019-02-26] MEDS: INSULIN -REGULAR HUMAN 50 UNIT/0.5 ML ML SQ SCH ×2 (18:33→21:24)
[2019-02-26] MEDS ORDERED: ENOXAPARIN 40 MG/0.4 ML SQ ONE (20:38)
[2019-02-26] MEDS: ZOLPIDEM TARTRATE 5 MG TABLET PO SCH (21:24)
[2019-02-27] MEDS: NA CHLORIDE 0.9% 1,000 ML IV SCH ×3 (02:32→23:00)
--- NOTE | 2019-02-27 02:47 | HP ---
Date of Admission: 02/26/2019 Chief Complaint: Nausea, vomiting, headache. History Of Present Illness: This is a 68-year-old female patient, who came into the emergency room w ith above-mentioned complaints today. After the patient was evaluated in the ER she was admitted to the hospital. I saw her this evening. She informed me that her daughter who lives in [place], she suddenly last week on Tuesday and since that time lot of friends and yarsani members, they have brought some food to her house and yesterday around 3 p.m. she ate chicken at home and immediately a fter eating the patient reports that she started to have nausea, vomiting. She had multiple episodes of this nausea and vomiting that started soon after eating this chicken and it continued up until ev en this morning. Denies any fever, chills. She started to have some diarrhea this morning. No abdo sylvie pain. Has been having some headache with this and she came into ER today. She was not able to keep any of her medications down yesterday or this morning. Her blood pressure was extremely high i n emergency. Highest blood pressure in emergency room was 219/131. After antihypertensive medicatio n and nausea medicine was given, her blood pressure came down. I saw her this evening and her family members were at bedside with her. None of the other family member had this problem. Medications: List reviewed. Review of Systems: ASSEMBLER TYPE BAR AND SEGMENT: As mentioned above. GI: As mentioned above. All other systems reviewed and negative. Allergies: SHE IS LISTED ALLERGIC TO IMITREX. Past Medical History: Hypertension, hyperthyroidism, hyperlipidemia, diverticulosis, chronic diastol ic congestive heart failure, coronary artery disease, diabetes mellitus, which is uncontrolled, and i nsomnia. Past Surgical History: Hernia repair, cholecystectomy, ankle surgery. Social History: Negative for smoking or alcohol use. Family History: Significant for son of blood clot. One daughter has end-stage renal disease, o n hemodialysis, who lives here and also has heart disease, hypertension, and diabetes. Another daugh ter, who lives in [place], suddenly last week and the patient is not sure about the reason for her , waiting for autopsy report. Physical Examination: Vital Signs: Highest blood pressure in emergency room was 219/131. Last vital signs, temperature 96 .9, pulse 73, respiratory rate 16, blood pressure 124/73, oxygen saturation 100%, height 5 feet 5 inc hes, weight 226 pounds. General: Awake, alert, oriented, not in distress. HEENT: Head atraumatic, normocephalic. Conjunctivae nonerythematous. Sclerae white. Mouth, no thr ush or edema noted. Ears/Nose, no mass, lesion, discharge noted. Neck: Supple. No JVD, lymph nodes, bruit, thyromegaly noted. Lungs: Bilateral good equal air entry. Clear to auscultation. No rhonchi. No rales. Heart: Normal heart sounds, no murmur or gallop. Abdomen: Soft, bowel sounds normal. No guarding, rigidity, tenderness, mass, hepatosplenomegaly, dis tention, or bruit noted. Extremities: No leg edema. No calf tenderness. Skin: No rash, ulcer, cellulitis. Lymphatics: No lymph node enlargement in neck, supraclavicular, infraclavicular region. Neuro: No focal neurological deficit. Chest: Unremarkable. External Genitalia: Deferred. Rectal: Deferred. Laboratory Data: White count 8.4, hemoglobin 15.3, and platelet count 267. Sodium 139, potassium 3. 5, chloride 100, bicarb 28, BUN 9, creatinine 0.92, glucose 389. Liver function tests unremarkable. Troponin less than 0.02. Lipase 68. EKG, sinus tachycardia, left bundle-branch block. Chest x-ray , no acute cardiopulmonary changes. CT scan of head shows small low density area within the right ba asim ganglia consistent with lacunar infarct and this is new compared to prior CAT scan from 2018. Ol d left cerebellar infarction present. Impression: 1.Food poisoning. 2.Hypertension, uncontrolled. 3.Stroke, old. 4.Type 2 diabetes mellitus, uncontrolled. 5.Hyperlipidemia. 6.Diverticulosis. 7.Coronary artery disease. 8.Hyperthyroidism. 9.Insomnia. 10.Chronic diastolic congestive heart failure. Plan: Admit patient to hospital for further evaluation and management of this problem. We will go a head and monitor her blood pressure. Consider making adjustment on her medication if necessary, but it is possible that her blood pressure, which was extremely high today could have been because she wa s not able to keep any medications down due to her nausea and vomiting problem. We will give DVT pro phylaxis per order. An MRI will be done tomorrow morning and I have advised her that upon discharge from the hospital, she should monitor her blood pressure 2-3 times a day, record it, and come see me next week with blood pressure machine readings and all her home medications. No need for any antibio tics. I will see her tomorrow morning for followup. TONG/DAKOTAH Voice ID: [id number]
[2019-02-27] MEDS: MORPHINE 4 MG/ML SYR IV PRN ×2 (06:32→14:56)
[2019-02-27 06:35] LABS: Absolute Lymphocytes (CBC) 1.9 K/uL (0.7-4.9); Basophils % 1.4 % (0-1.3); Hematocrit 41.1 % (36.0-45.0); Lymphocytes % 22.3 % (15.3-44.8); RBC Red Blood Cell Count 4.81 M/uL (3.86-4.86)
[2019-02-27] MEDS: ONDANSETRON 4 MG/2 ML VIAL IV PRN ×2 (06:35→18:45)
[2019-02-27 06:50] LABS: Potassium 3.1 mmol/L (3.5-5.1)
[2019-02-27] MEDS ORDERED: chlordiazePOXIDE HCl 5 MG CAP PO PRN (08:02)
[2019-02-27] MEDS ORDERED: QUETIAPINE 25 MG TAB PO PRN (08:02)
[2019-02-27] MEDS ORDERED: GLUCAGON 1 MG/VIAL IM PRN (08:04)
[2019-02-27] MEDS ORDERED: D50W 25 GM/50 ML SYRINGE/VIAL IV PRN (08:04)
[2019-02-27] MEDS ORDERED: POTASSIUM CL SA 10 MEQ TAB PO ONE (08:08)
[2019-02-27] MEDS ORDERED: ASPIRIN EC 81 MG TAB PO SCH (09:00)
[2019-02-27] MEDS: GABAPENTIN 100 MG CAP PO SCH ×2 (09:00→20:24)
[2019-02-27] MEDS: HOME MED 1 EA UNK (Fluticasone/Vilanterol [Breo Ellipta 100-25 Mcg Inh] 1 PUFF) IH SCH (09:00)
[2019-02-27] MEDS: INSULIN -REGULAR HUMAN 50 UNIT/0.5 ML ML SQ SCH ×4 (09:09→20:26)
[2019-02-27] MEDS: PANTOPRAZOLE 40MG TABLET PO SCH (09:10)
[2019-02-27] MEDS: HYDRALAZINE HCL 25 MG TABLET PO SCH ×3 (09:10→22:47)
[2019-02-27] MEDS: AMLODIPINE 5 MG TAB PO SCH ×2 (09:10→20:26)
[2019-02-27] MEDS: PROMETHAZINE 25 MG TABLET PO SCH ×3 (09:11→22:46)
[2019-02-27] MEDS: DOCUSATE NA 100 MG CAP PO SCH ×2 (09:11→20:24)
--- NOTE | 2019-02-27 11:18 | RAD REPORT ---
EXAM DESCRIPTION: - CP - 02/27/2019 10:55 am CLINICAL HISTORY: lacunar stroke CVA symptomology COMPARISON: Carotid Artery Bilateral dated 08/09/2017 TECHNIQUE: Real-time sonographic evaluation of both carotid systems was performed. Doppler interroga tion was performed with waveform tracing bilaterally. FINDINGS: Normal high resistance waveforms are noted in both external carotid arteries. The common c arotid arteries and internal carotid arteries show normal low resistance waveforms. Mild mixed plaquing is present in both proximal internal carotid arteries. Peak systolic and end colon tolic velocity values and the ICA/CCA ratios are in the non-hemodynamically significant range. Antegrade flow seen in both vertebral arteries. IMPRESSION: Mild mixed plaquing in both proximal internal carotid arteries. No evidence of a hemodynamically significant stenosis.
[2019-02-27] MEDS ORDERED: ENOXAPARIN 40 MG/0.4 ML SQ SCH (17:00)
--- NOTE | 2019-02-27 18:13 | P.CNS ---
Date of Consult: 02/27/19 Reason for Consult: MAJOR Requesting Physician: Denis Campos Chief Complaint: Weakness X2 days. History of Present Illness: 68 yo BF DM presented to the ER with 24-48 hours of moderate, progressive weakness in the setting of nausea, vomiting and anorexia. Associated uncontrolled, variable BP. Reports poor urine output that has now improved. Appetite is improving. No NSAIDs. Her daughter that lives in [place] passed in the past away a few days ago due to unclear etiology. 10:19 This 68 yrs old Black Female presents to ER via Wheelchair with complaints of Headache, pkl Vomiting, Weakness. 10:19 The patient complains of pain to the top of head and forehead. The patient describes pkl the headache as constant. Onset: The symptoms/episode began/occurred 2 day (s) ago. Associated signs and symptoms: Pertinent positives: nausea, vomiting, weakness, diarrhea and insomnia. Patient said her daughter 2 days ago. Allergies sumatriptan [From Imitrex] Allergy (Intermediate, Verified 01/28/19 22:40) Unknown Home medications list reviewed: Yes Home Medications: Amlodipine [Norvasc*] 1 tab PO BID 02/27/19 Chlordiazepoxide HCl [Librium] 1 cap PO TIDP PRN 02/27/19 Ciprofloxacin HCl 1 tab PO BID 02/27/19 Docusate [Colace Cap*] 1 tab PO BID 02/27/19 Fluticasone/Vilanterol [Breo Ellipta 100-25 Mcg INH] 1 puff IH DAILY 02/27/19 Gabapentin 1 tab PO BID 02/27/19 Hydralazine HCl 1 tab PO TID 02/27/19 Losartan/Hydrochlorothiazide [Losartan-Hctz 100-25 mg Tab] 1 tab PO DAILY Mirtazapine 1 tab PO BEDTIME 02/27/19 Ondansetron [Zofran (Odt)*] 4 mg DT BID 02/27/19 Pantoprazole [Protonix Tab*] 1 tab PO DAILY 02/27/19 Promethazine HCl 1 tab PO TID 02/27/19 Quetiapine [Seroquel*] 1 tab PO BIDP PRN 02/27/19 levoFLOXacin [Levaquin*] 1 tab PO DAILY 02/27/19 methIMAzole [Tapazole*] 10 mg PO DAILY 02/27/19 - Past Medical/Surgical History Diabetic: Yes -: Htn, diverticulitis with hemorrage /08/03/13 -: Migraines -: Pneumonia -: CHF -: GERD -: ANXIETYM -: DM -: Depression -: Lf ankle sx -: Hernia repair x2 -: Rena -: Hyst - Family History Mother Medical History: Heart disease - Social History Smoking Status: Never smoker Alcohol use: Yes CD- Drugs: No Caffeine use: Yes Place of Residence: Home Review of Systems 10-point ROS is otherwise unremarkable General: Weakness, Malaise Neurological: Weakness Physical Examination Temp Pulse Resp BP Pulse Ox 97.7 F 75 75 H 169/98 H 96 02/27/19 12:00 02/27/19 12:00 02/27/19 15:26 02/27/19 12:00 02/27/19 15:26 General: In no apparent distress, Oriented x3, Cooperative HEENT: Normocephalic Neck: Supple Respiratory: Clear to auscultation bilaterally Cardiovascular: No edema, Regular rate/rhythm Gastrointestinal: Non-distended Musculoskeletal: No clubbing, No contractures Integumentary: No rashes, No cyanosis Neurological: Normal speech Blood work reviewed in the chart. Cr 1.52 Imagings Data: EXAM DESCRIPTION: RAD - Chest Single View - 02/26/2019 12:05 pm CLINICAL HISTORY: Hypertension, headache, abdominal pain COMPARISON: January 28, 2019 TECHNIQUE: AP portable chest image was obtained 1138 hour . FINDINGS: Lung volumes are very low. No peripheral consolidation. Mass is unlikely. The rounded density in the medial right chest is probably the right pulmonary artery seen on and. The patient is rotated. Trachea is midline. Heart size is normal. No measurable pleural effusion and no pneumothorax. No acute bony abnormality seen. No acute aortic findings suspected. IMPRESSION: Portable chest is significantly limited but appears to be clear of acute cardiopulmonary finding. EXAM DESCRIPTION: US - CP - 02/27/2019 10:55 am CLINICAL HISTORY: lacunar stroke CVA symptomology COMPARISON: Carotid Artery Bilateral dated 08/09/2017 TECHNIQUE: Real-time sonographic evaluation of both carotid systems was performed. Doppler interrogation was performed with waveform tracing bilaterally. FINDINGS: Normal high resistance waveforms are noted in both external carotid arteries. The common carotid arteries and internal carotid arteries show normal low resistance waveforms. Mild mixed plaquing is present in both proximal internal carotid arteries. Peak systolic and end diastolic velocity values and the ICA/CCA ratios are in the non -hemodynamically significant range. Antegrade flow seen in both vertebral arteries. IMPRESSION: Mild mixed plaquing in both proximal internal carotid arteries. No evidence of a hemodynamically significant stenosis. Conclusions/Impression: A/ MAJOR may be due to hypovolemia. Hypokalemia. Hypomagnesemia. HTN. Diastolic CHF. DM II. P/ Continue current POC and Medications. Continue IVF. Monitor volume status. Replete potassium. Start MagOx. No NSAIDs. AM labs. Daily weight. Thank you kindly for the consultation. Critical Care: No
[2019-02-27] MEDS: DIGOXIN 0.25 MG/ML AMP IV SCH (19:55)
[2019-02-27] MEDS: APIXABAN 5 MG TABLET PO SCH (20:23)
[2019-02-27] MEDS: MIRTAZAPINE 15 MG TAB PO SCH (20:24)
[2019-02-27] MEDS: INSULIN GLARGINE 100 UNITS/ML SQ SCH (20:25)
[2019-02-27 20:58] LABS: BUN Blood Urea Nitrogen 25 mg/dL (7-18); Bicarbonate 25 mmol/L (21-32); CKMB Creatine Kinase MB 1.3 ng/mL (0.3-3.6); Creatine Phosphokinase 69 U/L (26-192); Glucose Level 179 mg/dL (74-106); Magnesium 1.7 mg/dL (1.8-2.4); Potassium 3.3 mmol/L (3.5-5.1); Sodium Level 138 mmol/L (136-145); Thyroid Stimulating Hormone 0.076 uIU/mL (0.360-3.740); Troponin I < 0.02 ng/mL (0.0-0.045)
[2019-02-27] MEDS: METOPROLOL TARTRATE 5 MG/5 ML INJ IV SCH ×3 (21:12→21:37)
--- NOTE | 2019-02-27 21:53 | CON ---
Reason For Consultation: Consultation called because of migraine. History Of Present Illness: Ms. Ferrell is a 68-year-old right-handed patient with history of migra ine since a teenager, followed by Dr. Efraín Adair for migraine. She reports about 12 more migrain es per year which often respond to stadol nasal spray. She said in the past, Dr. Adair had given h er a preventive medication that is possibly Topamax or it might have been Depakote, but she is unclea r. In any event, she came into [facility] with severe headache, light and sound and scalp h ypersensitivity, nausea and vomiting, was unable to maintain p.o. intake and this occurred after she actually ate some chicken and she believes that might have been a trigger for the headache. She did not have fevers, chills, neck stiffness, and nuchal rigidity with rigors or chills. At [facility] she was found to have very elevated blood pressures, 219/131 and possibly because of her sever e pain. She was treated for that and admitted for stroke rule out. Her subsequent head CT scan show ed no acute ischemic or hemorrhagic change, however, the study did suggest a lacunar infarct in the r ight basal ganglia, however, it did say an age indeterminate infarct possible. Her carotid artery ul trasound showed mixed plaquing in both proximal internal carotid arteries, but no evidence of hemodyn amically significant stenosis. Her brain MRI with head and neck MRA are pending. She said headaches also may respond to sumatriptan, but less so than the stadol nasal spray. Past Medical History: Hypertension, dyslipidemia, diverticulosis, hyperthyroidism, coronary artery d isease, diabetes mellitus. Surgical History: Cholecystectomy, hernia repair, surgery in the ankle. Social History: No alcohol, tobacco, or IV drug use. There was a recent in the family of the patient and she is somewhat stressed about this occurrence. Family History: Son of blood clot. Patient has a daughter with end-stage renal disease receiving hemodialysis and patient does have a daughter who suddenly last week. Review of Systems: As indicated history of migraine with nausea, vomiting, but no recent fevers or chills, myalgias or a rthralgias. No psychiatric complaints. No genitourinary complaints. Physical Examination: Vital Signs: Blood pressure range 125 to 169 over 60 to 98, pulse in 70s to 80s, respiratory rate 16 to 20, temperature 97.7, oxygen saturation 96% on room air. Weight 226 pounds, height 5 feet 5 inch es, BMI 37. General: Ms. Ferrell is resting in bed. Family at the bedside. She is in no significant distress. HEENT: She is normocephalic, atraumatic. Sclerae anicteric. Oropharynx is pink and moist. Neck: Supple. Chest: Clear. Heart: Regular. Extremities: Show no edema, cyanosis, or clubbing. Neurological: She is alert and oriented to person, place, and situation. Follows commands appropria tely. She has no focal cranial nerve, motor, sensory, coordination, or gait deficits. Laboratory Studies: Complete blood count with differential is essentially normal. Coagulation panel shows INR 1.19. Chemistries show glucose range from 231 to 364, potassium slightly low at 3.1, crea tinine elevated to 1.52. Sodium and chloride are normal. Her electrocardiogram shows sinus tachycar scarlet with possible left atrial enlargement. She does have urine cultures and sensitivity pending. Assessment: Ms. Ferrell is a 68-year-old patient with migraine with aura, who had possible food poi soning, which may have triggered severe migraine. She does respond to stadol nasal spray for abortiv e treatment and if available on formulary that may be used at this point, consider starting Topamax a s a prophylactic medication 25 mg at night, and patient may receive IV fluids appropriately in terms of blood pressure and try to maintain systolic blood pressure less than 160 at least short-term and t hen longer-term less than 130 systolic blood pressure. To manage nausea as appropriate with Zofran a nd DVT prophylaxis as appropriate. Should have aspirin 81 mg daily and have a lipid panel for high d ose statin and folic acid daily. Plan: As indicated aspirin 81 mg daily, lipid panel and to target LDL to be less than 70. May have moderate to high dose statin, folic acid daily. Stadol nasal spray for abortive migraine treatment, Topamax 25 mg at night for migraine prophylaxis, and patient should maintain migraine diary, more agg ressive control of uncontrolled diabetes mellitus, again more aggressive control of uncontrolled hype rtension. Again, patient should follow up with Dr. Cornelius in 1 month, this is after discharge. ANGLE/DAKOTAH Voice ID: [id number] Report ID: [id number]
[2019-02-27] MEDS: METOPROLOL TAR 50 MG TAB PO SCH (22:47)
[2019-02-27] MEDS: ZOLPIDEM TARTRATE 5 MG TABLET PO SCH (22:47)
[2019-02-27] MEDS: MAGNESIUM OXIDE 400 MG TAB PO SCH (23:00)
--- NOTE | 2019-02-28 00:38 | PN ---
Date of Progress Note: 02/27/2019 Subjective: Patient was seen this morning for followup. She denies complaints or problems this morn ing or overnight. Vital signs reviewed. No nausea, no vomiting, no diarrhea. Objective: HEENT: Unremarkable. Lungs: Clear to auscultation. Heart: Sounds normal. Abdomen: Soft. Bowel sounds normal. No guarding, rigidity, tenderness, or distention. Extremities: No leg edema. Laboratory Data: White count 8.4, hemoglobin 13.2, platelets 190. Sodium 139, potassium 3.1, chlori de 103, bicarb 30, BUN 26, creatinine 1.52, glucose 231. Impression: 1.Acute kidney injury. 2.Hypokalemia. 3.Headache. 4.Uncontrolled hypertension. 5.Food poisoning, resolved. 6.Atrial fibrillation, new onset. 7.Right basal ganglia lacunar infarct. 8.Carotid artery stenosis. Plan: After I saw patient this morning she was going to have an MRI per stroke protocol, but I cance led that in view of acute kidney injury as it will be harmful to have MRI done with acute kidney inju ry problem and I will go ahead and reschedule MRI for tomorrow and hopefully by that time we will see if her renal function improves or not. If renal function does not improve or deteriorates, then we will not do MRI tomorrow. Carotid Doppler was ordered and done today, results reviewed shows bilater al mild carotid artery stenosis. No evidence of any hemodynamically significant stenotic lesion. Th is evening, patient has gone into atrial fibrillation with rapid ventricular rate, heart rate around 160, blood pressure is around systolic 120 or so. This is new onset atrial fibrillation. In view of her atrial fibrillation, other comorbidities including hypertension, diabetes, and what we see on th e CAT scan with old stroke and lacunar infarct it is appropriate to start anticoagulation therapy, El iquis 5 mg 2 times a day as of this evening. We will give digoxin for rate control, consult Cardiolo gy, and get a TSH and electrolyte this evening. Neurology consultation is pending. Nephrology consu ltation was ordered this morning for acute kidney injury. We will continue IV fluid and I will see h er tomorrow for followup. TONG/MODL Voice ID: [id number] Report ID: [id number]
[2019-02-28] MEDS ORDERED: POTASSIUM CL SA 10 MEQ TAB PO ONE ×2 (01:15→09:00)
[2019-02-28] MEDS: DIGOXIN 0.25 MG/ML AMP IV SCH (01:32)
[2019-02-28] MEDS: MORPHINE 4 MG/ML SYR IV PRN ×3 (01:43→19:16)
[2019-02-28] MEDS: NA CHLORIDE 0.9% 1,000 ML IV SCH ×4 (03:22→23:16)
[2019-02-28 06:11] LABS: Albumin 2.6 g/dL (3.4-5.0); Bilirubin Total 0.4 mg/dL (0.2-1.0); Magnesium 1.8 mg/dL (1.8-2.4); Phosphorus 2.5 mg/dL (2.5-4.9); Potassium 3.7 mmol/L (3.5-5.1); Protein, Total 6.1 g/dL (6.4-8.2); Uric Acid 7.9 mg/dL (2.6-6.0)
[2019-02-28] MEDS: INSULIN -REGULAR HUMAN 50 UNIT/0.5 ML ML SQ SCH ×4 (07:30→21:57)
[2019-02-28] MEDS ORDERED: MAGNESIUM SULFATE 1 gm IVPB 1 GM/100 ML BAG IV ONE (08:00)
[2019-02-28] MEDS: HOME MED 1 EA UNK (Fluticasone/Vilanterol [Breo Ellipta 100-25 Mcg Inh] 1 PUFF) IH SCH (09:00)
[2019-02-28] MEDS: INSULIN GLARGINE 100 UNITS/ML SQ SCH ×2 (09:00→21:57)
[2019-02-28] MEDS: GABAPENTIN 100 MG CAP PO SCH ×2 (09:02→21:55)
[2019-02-28] MEDS: MAGNESIUM OXIDE 400 MG TAB PO SCH (09:02)
[2019-02-28] MEDS: HYDRALAZINE HCL 25 MG TABLET PO SCH ×3 (09:02→21:55)
[2019-02-28] MEDS: PANTOPRAZOLE 40MG TABLET PO SCH (09:02)
[2019-02-28] MEDS: DOCUSATE NA 100 MG CAP PO SCH ×2 (09:03→21:56)
[2019-02-28] MEDS: AMLODIPINE 5 MG TAB PO SCH ×2 (09:03→21:54)
[2019-02-28] MEDS: APIXABAN 5 MG TABLET PO SCH ×2 (09:03→21:54)
[2019-02-28] MEDS: PROMETHAZINE 25 MG TABLET PO SCH ×3 (09:03→21:55)
[2019-02-28] MEDS: METOPROLOL TAR 50 MG TAB PO SCH (09:05)
--- NOTE | 2019-02-28 10:21 | EKG ---
Test Date: 2019-02-27 Test Time: 19:29:25 Computer Forwarding System Markup Clerk: RT MEASUREMENT RESULTS: Intervals: Rate: 160 DE: QRSD: 158 QT: 362 QTc: 590 [place]: P: DE: QRS: -28 T: 153 INTERPRETIVE STATEMENTS: Atrial fibrillation with rapid ventricular response with premature ventricular or aberrantly conducted complexes Left bundle branch block Abnormal ECG Compared to ECG 02/26/2019 10:24:24 Ventricular premature complex(es) now present Sinus tachycardia no longer present Electronically Signed On 02-28-19 10:20:06 PRODUCTION SUPERINTENDENT by Los Schroeder
--- NOTE | 2019-02-28 10:48 | ECHO ---
HEIGHT: 5 ft 5 in WEIGHT: 226 lb 12.8 oz DATE OF STUDY: 02/28/[address]: Roland Burns MD 2-DIMENSIONAL: YES M.MODE: YES DOPPLER: YES COLOR FLOW: YES TDS: NO PORTABLE: NO DEFINITY: NO BUBBLE STUDY: NO DIAGNOSIS: NEW ONSET ATRIAL FIBRILLATION CARDIAC HISTORY: CATHERIZATION: SURGERY: PROSTHETIC VALVE: PACEMAKER: MEASUREMENTS (cm) DIASTOLIC (NORMALS) SYSTOLIC (NORMALS) IVSd 1.3 (0.6-1.2) LA Diam (1.9-4.0) LVEF 45% LVIDd 4.0 (3.5-5.7) LVIDs 3.1 (2.0-3.5) %FS 22% LVPWd 1.3 (0.6-1.2) Ao Diam 3.1 (2.0-3.7) 2 DIMENSIONAL ASSESSMENT: RIGHT ATRIUM: NORMAL LEFT ATRIUM: DILATED RIGHT VENTRICLE: NORMAL LEFT VENTRICLE: LEFT VENTRICULAR HYPERTROPHY TRICUSPID VALVE: NORMAL MITRAL VALVE: NORMAL PULMONIC VALVE: NORMAL AORTIC VALVE: NORMAL PERICARDIAL EFFUSION: NONE AORTIC ROOT: NORMAL LEFT VENTRICULAR WALL MOTION: NORMAL DOPPLER/COLOR FLOW: MILD AORTIC, MITRAL AND TRICUSPID REGURGITATION. NORMAL RIGHT VENTRICULAR SYSTOLIC PRESSURE. COMMENTS: NORMAL LEFT VENTRICULAR EJECTION FRACTION. LEFT VENTRICULAR HYPERTROPHY. DILATED LEFT ATRIUM. MILD AORTIC, MITRAL AND TRICUSPID REGURGITATION TECHNOLOGIST: Tiffany RAMIREZ
--- NOTE | 2019-02-28 13:40 | CON ---
Identification: 68-year-old woman. Reason For Consultation: Atrial fib. History Of Present Illness: Ms. Ferrell came to the hospital with a chief complaint of it is rather vague when she was found to be in atrial fib. She is in sinus rhythm now. She feels somewhat chante r. She is very distraught because of the recent of her daughter, cause unknown a sudden . Her son had sudden determined due to massive pulmonary embolus about 8 years ago. Her chief complaint was nausea, vomiting, and headache. Not actually chest pain. Since being in the hospital, cardiac enzymes are normal. A CAT scan of the head is normal. Electrocardiograms reveal a sinus rh ythm with left bundle and atrial fib with left bundle. She has had a cardiac cath in the past that w as normal. We are not sure if she ever had atrial fib in the past. She gives a confusing history ab out that. Since being here in the hospital, a carotid Doppler reveals plaque, no stenosis. The head CAT scan does not reveal anything that would be the cause of the headache. It reveals small old lac unar infarct, basal ganglia, not totally normal. Physical Examination: General: She is 5 feet 5 inches, 226 pounds, distraught, tearful. Lungs: Clear. Cardiac: Regular rate and rhythm. No murmur or gallop. Abdomen: Soft. Extremities: Trace edema. Distal pulses palpable. The patient does not use tobacco, alcohol, or illegal drugs. I think the patient should be treated w ith Eliquis and Betapace and try and keep her in normal rhythm. We will stop metoprolol and switch h er to Betapace. Thank you very much for your kind referral of Ms. Ferrell. I will follow her with you. JAVON/DAKOTAH Voice ID: [id number] Report ID: [id number]
[2019-02-28] MEDS: SOTALOL HCL 80 MG TAB PO SCH (17:28)
--- NOTE | 2019-02-28 21:40 | P.PN ---
Date of Service: 02/28/19 Vital Signs Temp Pulse Resp BP Pulse Ox 97 F 80 19 140/67 95 02/28/19 16:00 02/28/19 16:00 02/28/19 19:46 02/28/19 16:00 02/28/19 19:46 Medications Amlodipine Besylate (Norvasc) 5 mg PO BID [facility]AGO Stop: 03/29/19 09:01 Last Admin: 02/28/19 09:03 Dose: 5 mg Apixaban (Eliquis) 5 mg PO BID SANTIAGO Stop: 03/29/19 20:01 Last Admin: 02/28/19 09:03 Dose: 5 mg Chlordiazepoxide HCl (Librium) 10 mg PO TIDP PRN PRN Reason: ANXIETY Cholecalciferol (Vitamin D 5,000 Iu Cap) 5,000 unit PO DAILY S[facility]IAGO Stop: 03/30/19 22:01 Dextrose (Dextrose 50% Syringe/Vial) 12.5 gm IV PRN PRN; Protocol PRN Reason: HYPOGLYCEMIA Stop: 03/28/19 16:57 Docusate Sodium (Colace Cap) 100 mg PO BID SANTIAGO Stop: 03/29/19 09:01 Last Admin: 02/28/19 09:03 Dose: 100 mg Gabapentin (Neurontin) 100 mg PO BID S[facility]IAGO Stop: 03/29/19 09:01 Last Admin: 02/28/19 09:02 Dose: 100 mg Glucagon (Glucagen) 1 mg IM 1X PRN; Protocol PRN Reason: HYPOGLYCEMIA Stop: 03/28/19 16:57 Home Med (Fluticasone/Vilanterol [Breo Ellipta 100-25 Mcg Inh]) 1 puff IH DAILY S[facility]IAGO Stop: 03/29/19 09:01 Last Admin: 02/28/19 09:00 Dose: Not Given Hydralazine HCl (Apresoline) 50 mg PO TID S[facility]IAGO Stop: 03/29/19 09:01 Last Admin: 02/28/19 14:54 Dose: 50 mg Sodium Chloride (Ns 1000 Ml Ivbag) 1,000 mls @ 50 mls/hr IV .Q20H [facility]AGO Stop: 03/30/19 09:01 Last Admin: 02/28/19 09:00 Dose: Not Given Insulin Glargine (Lantus) 15 units SQ DAILY WITH BREAKFAST [facility]AGO Stop: 03/30/19 08:01 Last Admin: 01/15/20 09:00 Dose: 15 units Insulin Glargine (Lantus) 15 units SQ BEDTIME [facility] Stop: 03/29/19 21:01 Last Admin: 02/27/19 20:25 Dose: 15 units Insulin Human Regular (Novolin -R) 0 unit SQ ACHS [facility]; Protocol Stop: 03/28/19 21:01 Last Admin: 02/28/19 17:28 Dose: 6 unit Magnesium Oxide (Mag 0x Tab) 400 mg PO DAILY [facility] Stop: 03/29/19 23:01 Last Admin: 02/28/19 09:02 Dose: 400 mg Methimazole (Tapazole) 10 mg PO BID [facility] Stop: 03/30/19 09:01 Last Admin: 02/28/19 09:13 Dose: 10 mg Mirtazapine (Remeron) 15 mg PO BEDTIME [facility] Stop: 03/29/19 21:01 Last Admin: 02/27/19 20:24 Dose: 15 mg Morphine Sulfate (Morphine Sulfate) 4 mg IV Q4H PRN PRN Reason: Pain scale 8-10 (Severe) Stop: 03/28/19 16:54 Last Admin: 02/28/19 19:16 Dose: 4 mg Ondansetron HCl (Zofran) 4 mg IV Q4H PRN PRN Reason: NAUSEA / VOMITING Last Admin: 02/27/19 18:45 Dose: 4 mg Pantoprazole Sodium (Protonix Tab) 40 mg PO DAILY [facility]; Protocol Stop: 03/29/19 09:01 Last Admin: 02/28/19 09:02 Dose: 40 mg Promethazine HCl (Phenergan) 12.5 mg PO TID [facility] Stop: 03/29/19 09:01 Last Admin: 02/28/19 14:55 Dose: 12.5 mg Quetiapine Fumarate (Seroquel) 25 mg PO BIDP PRN PRN Reason: ANXIETY Stop: 03/29/19 08:03 Last Admin: 02/28/19 04:44 Dose: 25 mg Sodium Chloride (Normal Saline Flush) 10 ml IV BID [facility] Stop: 03/28/19 21:01 Last Admin: 02/28/19 09:06 Dose: 10 ml Sotalol HCl (Betapace) 80 mg PO BID 6AM 6PM [facility] Stop: 03/30/19 18:01 Last Admin: 02/28/19 17:28 Dose: 80 mg Zolpidem Tartrate (Ambien) 5 mg PO BEDTIME [facility] Stop: 03/28/19 21:01 Last Admin: 02/27/19 22:47 Dose: 5 mg Assessment/ Plan: Nephrology Feeling better. Still with anorexia. Urine output X2 today, medium yellow. +BM No acute events overnight. Vitals, medications, blood work and imaging reviewed in the chart. General: In no apparent distress, Oriented x3, Cooperative HEENT: Normocephalic Neck: Supple Respiratory: Clear to auscultation bilaterally Cardiovascular: No edema, Regular rate/rhythm Gastrointestinal: Non-distended Musculoskeletal: No clubbing, No contractures Integumentary: No rashes, No cyanosis Neurological: Normal speech Blood work reviewed in the chart. Cr 1.52 Imagings Data: EXAM DESCRIPTION: RAD - Chest Single View - 02/26/2019 12:05 pm CLINICAL HISTORY: Hypertension, headache, abdominal pain COMPARISON: January 28, 2019 TECHNIQUE: AP portable chest image was obtained 1138 hour . FINDINGS: Lung volumes are very low. No peripheral consolidation. Mass is unlikely. The rounded density in the medial right chest is probably the right pulmonary artery seen on and. The patient is rotated. Trachea is midline. Heart size is normal. No measurable pleural effusion and no pneumothorax. No acute bony abnormality seen. No acute aortic findings suspected. IMPRESSION: Portable chest is significantly limited but appears to be clear of acute cardiopulmonary finding. EXAM DESCRIPTION: - CP - 02/27/2019 10:55 am CLINICAL HISTORY: lacunar stroke CVA symptomology COMPARISON: Carotid Artery Bilateral dated 08/09/2017 TECHNIQUE: Real-time sonographic evaluation of both carotid systems was performed. Doppler interrogation was performed with waveform tracing bilaterally. FINDINGS: Normal high resistance waveforms are noted in both external carotid arteries. The common carotid arteries and internal carotid arteries show normal low resistance waveforms. Mild mixed plaquing is present in both proximal internal carotid arteries. Peak systolic and end diastolic velocity values and the ICA/CCA ratios are in the non -hemodynamically significant range. Antegrade flow seen in both vertebral arteries. IMPRESSION: Mild mixed plaquing in both proximal internal carotid arteries. No evidence of a hemodynamically significant stenosis. Conclusions/Impression: A/ MAJOR, improved. Hypokalemia. Hypomagnesemia. Hypocalcemia. HTN. Diastolic CHF. DM II. P/ Continue current POC and Medications. Gentle IVF. Monitor volume status. Replete potassium as needed. Start Vitamin D3. Titrate insulin as needed. No NSAIDs. AM labs. Daily weight.
[2019-02-28] MEDS: ZOLPIDEM TARTRATE 5 MG TABLET PO SCH (21:56)
[2019-02-28] MEDS: MIRTAZAPINE 15 MG TAB PO SCH (21:56)
[2019-02-28] MEDS: VITAMIN D 5,000 UNIT CAP PO SCH (23:18)
--- NOTE | 2019-03-01 00:41 | PN ---
Date of Progress Note: 02/28/2019 Subjective: The patient was seen this morning for followup. No palpitations, chest pain, shortness of breath, nausea, vomiting, diarrhea overnight. The patient converted to normal sinus rhythm this m orning around 5 a.m. When I saw her, she was in sinus rhythm. Objective: Vital Signs: Reviewed. HEENT: Unremarkable. Lungs: Clear to auscultation. Heart: Heart sounds normal. Abdomen: Soft, bowel sounds normal. No guarding, rigidity, tenderness, or distention. Extremities: No leg edema. Laboratory Data: Sodium 143, potassium 3.7, chloride 110, bicarb 27, BUN 19, creatinine 0.87, glucos e 229. Liver function tests unremarkable. Impression: 1.Paroxysmal atrial fibrillation. 2.Hyperthyroidism. 3.Hypertension. 4.Diabetes mellitus, uncontrolled. 5.Hypokalemia. 6.Stroke. Plan: The patient was ordered to have an echocardiogram and MRI of brain. We will continue metoprol ol, Eliquis. Follow up with green material value added assessor and neurologist. During the course of day today later this afternoon, I was notified by nursing staff that the patient refused to have MRI done. I will see he r tomorrow morning and our plan is to possibly discharge her to go home tomorrow if she is stable. TONG/MODL Voice ID: [id number] Report ID: [id number]
[2019-03-01 04:30] LABS: Urine Appearance CLEAR; Urine Bilirubin NEGATIVE (NEG); Urine Blood NEGATIVE (NEG); Urine Color YELLOW; Urine Glucose TRACE (NEG); Urine Protein NEGATIVE (NEG)
[2019-03-01 04:49] LABS: UR MICROALBUMIN 0.8 mg/dL (< 1.9)
[2019-03-01] MEDS: SOTALOL HCL 80 MG TAB PO SCH (05:30)
[2019-03-01 05:32] LABS: Urine Bacteria <20 /HPF (<20); Urine Culture Reflex Order NOT NEEDED; Urine RBC <5 /HPF (NONE SEEN)
[2019-03-01 06:12] LABS: BUN Blood Urea Nitrogen 7 mg/dL (7-18); Bicarbonate 30 mmol/L (21-32); Glucose Level 129 mg/dL (74-106); Magnesium 1.9 mg/dL (1.8-2.4); Potassium 3.7 mmol/L (3.5-5.1); Sodium Level 144 mmol/L (136-145)
[2019-03-01] MEDS: INSULIN -REGULAR HUMAN 50 UNIT/0.5 ML ML SQ SCH ×2 (07:30→11:21)
[2019-03-01] MEDS: PROMETHAZINE 25 MG TABLET PO SCH ×2 (08:32→13:03)
[2019-03-01] MEDS: AMLODIPINE 5 MG TAB PO SCH (08:32)
[2019-03-01] MEDS: DOCUSATE NA 100 MG CAP PO SCH (08:33)
[2019-03-01] MEDS: HYDRALAZINE HCL 25 MG TABLET PO SCH ×2 (08:33→13:03)
[2019-03-01] MEDS: APIXABAN 5 MG TABLET PO SCH (08:33)
[2019-03-01] MEDS: MAGNESIUM OXIDE 400 MG TAB PO SCH (08:33)
[2019-03-01] MEDS: PANTOPRAZOLE 40MG TABLET PO SCH (08:33)
[2019-03-01] MEDS: VITAMIN D 5,000 UNIT CAP PO SCH (08:34)
[2019-03-01] MEDS: INSULIN GLARGINE 100 UNITS/ML SQ SCH (08:34)
[2019-03-01] MEDS: GABAPENTIN 100 MG CAP PO SCH (08:34)
[2019-03-01] MEDS ORDERED: POTASSIUM CL SA 10 MEQ TAB PO ONE (09:00)
[2019-03-01] MEDS: HOME MED 1 EA UNK (Fluticasone/Vilanterol [Breo Ellipta 100-25 Mcg Inh] 1 PUFF) IH SCH (09:00)
[2019-03-01 09:49] VITALS: O2SAT 98
[2019-03-01] MEDS: MORPHINE 4 MG/ML SYR IV PRN (10:30)
[2019-03-01] MEDS ORDERED: DOXAZOSIN 2 MG TAB PO ONE (12:50)
[2019-03-01] MEDS ORDERED: LOSARTAN/HCTZ 50-12.5 PO SCH (13:00)
[2019-03-01 14:18] VITALS: TEMP 98.4
[2019-03-01 14:49] VITALS: BP 153/82
--- NOTE | 2019-03-01 17:31 | P.PN ---
Date of Service: 03/01/19 Vital Signs Temp Pulse Resp BP Pulse Ox 98.4 F 83 18 153/82 H 97 03/01/19 12:00 03/01/19 14:48 03/01/19 12:00 03/01/19 14:48 03/01/19 12:00 Assessment/ Plan: Nephrology Feeling better. Appetite improving. CPS stable without CP or SOB. +Anxiety +Insomnia No acute events overnight. Vitals, medications, blood work and imaging reviewed in the chart. General: In no apparent distress, Oriented x3, Cooperative HEENT: Normocephalic Neck: Supple Respiratory: Clear to auscultation bilaterally Cardiovascular: No edema, Regular rate/rhythm Gastrointestinal: Non-distended Musculoskeletal: No clubbing, No contractures Integumentary: No rashes, No cyanosis Neurological: Normal speech Blood work reviewed in the chart. Cr 1.52 Imagings Data: EXAM DESCRIPTION: RAD - Chest Single View - 02/26/2019 12:05 pm CLINICAL HISTORY: Hypertension, headache, abdominal pain COMPARISON: January 28, 2019 TECHNIQUE: AP portable chest image was obtained 1138 hour . FINDINGS: Lung volumes are very low. No peripheral consolidation. Mass is unlikely. The rounded density in the medial right chest is probably the right pulmonary artery seen on and. The patient is rotated. Trachea is midline. Heart size is normal. No measurable pleural effusion and no pneumothorax. No acute bony abnormality seen. No acute aortic findings suspected. IMPRESSION: Portable chest is significantly limited but appears to be clear of acute cardiopulmonary finding. EXAM DESCRIPTION: [facility] - 02/27/2019 10:55 am CLINICAL HISTORY: lacunar stroke CVA symptomology COMPARISON: Carotid Artery Bilateral dated 08/09/2017 TECHNIQUE: Real-time sonographic evaluation of both carotid systems was performed. Doppler interrogation was performed with waveform tracing bilaterally. FINDINGS: Normal high resistance waveforms are noted in both external carotid arteries. The common carotid arteries and internal carotid arteries show normal low resistance waveforms. Mild mixed plaquing is present in both proximal internal carotid arteries. Peak systolic and end diastolic velocity values and the ICA/CCA ratios are in the non -hemodynamically significant range. Antegrade flow seen in both vertebral arteries. IMPRESSION: Mild mixed plaquing in both proximal internal carotid arteries. No evidence of a hemodynamically significant stenosis. Conclusions/Impression: A/ MAJOR, improved. Hypokalemia. Hypomagnesemia. Hypocalcemia. HTN. Diastolic CHF. DM II. P/ Continue current POC and Medications. Stop IVF. Encourage nutrition. Replete potassium as needed. Titrate insulin as needed. No NSAIDs. AM labs. Daily weight.
--- NOTE | 2019-03-01 21:10 | PN ---
Date of Progress Note: 03/01/2019 Ms. Ferrell had been admitted with atrial fibrillation, severe hypertension, and headache. She was placed on Betapace and Eliquis yesterday by Dr. Schroeder. Today, she is in sinus rhythm. Echocardiogr am showed left ventricular hypertrophy with an ejection fraction of 45%. No thrombus in the left atr ium. Today, she is feeling good from a cardiovascular standpoint, but is very tearful as she just lo st 2 daughters recently. She certainly needs some comfort measures as far as that is concerned. Fro m a cardiovascular standpoint, I feel comfortable with her going home on Betapace and Eliquis, and we will see her in the office in the near future. ALEX/DAKOTAH Voice ID: [id number] Report ID: [id number]
--- NOTE | 2019-03-02 03:37 | DS ---
Date of Discharge: 03/01/2019 Patient was seen this morning for followup lying in bed not in distress Physical Examination: Vital Signs: Reviewed. HEENT: Unremarkable. Lungs: Clear to auscultation. Cardiac: Heart sounds normal. Normal rhythm. Abdomen: Soft. No guarding, rigidity, tenderness. Extremities: No leg edema. Laboratory Data: Labs done during this hospitalization upon admission, white count 8.4, hemoglobin 1 5.3, platelets 267. This morning, white count 8.4, hemoglobin 13.2, platelets 119. Chemistry today, sodium 144, potassium 3.7, chloride 110, bicarb 30, BUN 7, creatinine 0.65, glucose 129, magnesium 1 . Echocardiogram done yesterday showing ejection fraction 45%. 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 2.Follow up at my office next week. 3.Follow up with Dr. Burns in 2 weeks. Patient was advised to check blood pressure 2 times a day, record her readings when she comes to see me next week, bring her blood pressure machine blood press ure reading and all her medication bottles with her. Hospital Course: This is a 68-year-old female patient who was admitted to the hospital under my serv ice after she came into the emergency room. Please see dictated H and P for more information. After patient was admitted to the hospital, she was seen in consultation by brand designer as she had gone i nto atrial fibrillation with rapid ventricular rate. She was started on oral anticoagulation medicat ion, Eliquis 5 mg 2 times a day, and Dr. Schreoder started her on sotalol. The patient converted to sin us rhythm and then remained in sinus rhythm. Patient had acute kidney injury. She came in with norm al creatinine, but day after admission, her creatinine went up and with IV fluid hydration her renal function came down to normal again. Nephrology consultation was obtained from Dr. Jacobs. Initiall y when she came in, her CAT scan of the brain had shown evidence of old stroke in the cerebellar humphrey on, but also showed new area of small lacunar infarct in the basal ganglia and this is new compared t o last CT scan from 2 years ago. With that in mind, Neurology consultation from Dr. Cornelius was reeldon harris. MRI of brain was ordered but the patient refused to have this MRI. Carotid Doppler showed b ilateral plaquing, no evidence of hemodynamically significant stenotic lesion. The patient when she first came in, she had significantly elevated blood pressure that remained normal until last 24 hours or so, and her blood pressure has started to go up. Her TSH was low. Patient has hyperthyroidism a nd she is supposed to take her methimazole. I suspect and from prior experience I note that she is n ot compliant with her medication and when I talked to her about her medication compliance, she inform ed me that she is not taking her medications on a regular basis and importance of taking medications as prescribed on a regular basis. I explained to her long-term complications due to hypertension, di abetes, hyperlipidemia, and uncontrolled thyroid TSH. The patient was discharged in stable condition with outpatient followup instruction and her family did pick and shovel worker a list of medication from my office after she was discharged. Final Diagnoses: 1.Acute kidney injury. 2.Paroxysmal atrial fibrillation. 3.Hyperthyroidism. 4.Hypertension, uncontrolled. 5.Type 2 diabetes mellitus, uncontrolled. 6.Insomnia. 7.Hypokalemia. TONG/MODL Voice ID: [id number] Report ID: [id number]
== END 2019-03-01 15:46 | disposition home health service (06) | DRG 683 ==
LOC: ER 09:35 → ERHOLD 16:50 → 2ND 17:03 → 3RD 02-28 15:19 → 2ND 02-28 15:29
PROVIDERS: ADMIT Internal Medicine; ATTEND Internal Medicine
DX: N17.9 Acute kidney failure, unspecified (principal); I50.32 Chronic diastolic (congestive) heart failure; G43.109 Migraine with aura, not intractable, without status migrainosus; A05.9 Bacterial foodborne intoxication, unspecified; E05.90 Thyrotoxicosis, unspecified without thyrotoxic crisis or storm; I25.10 Atherosclerotic heart disease of native coronary artery without angina pectoris; E11.65 Type 2 diabetes mellitus with hyperglycemia; E78.5 Hyperlipidemia, unspecified; I44.7 Left bundle-branch block, unspecified; G47.00 Insomnia, unspecified; I11.0 Hypertensive heart disease with heart failure; K57.90 Diverticulosis of intestine, part unspecified, without perforation or abscess without bleeding; I48.0 Paroxysmal atrial fibrillation; E87.6 Hypokalemia; E83.42 Hypomagnesemia; Z86.73 Personal history of transient ischemic attack (TIA), and cerebral infarction without residual deficits
CPT/HCPCS: 36415; 70450; 71045; 80048; 80053; 80076; 81001; 82043; 82550; 82553; 82570; 82947; 83690; 83735; 83880; 84100; 84443; 84484; 84550; 85025; 85610; 93005; 93306; 93880; 96361; 96374; 96375; 99285; J1160; J1650; J1815; J2175; J2405; J2550; J3475; J7030; Q0169

== ENCOUNTER 2019-05-10 08:29 | Emergency (ER) | payer OTHER ==
--- OUTSIDE RECORDS SUMMARY | 2019-05-10 08:31 | XMS REPORT ---
:1950 Author Organization [facility] Address [address] [place] [address] Dr. Estrada [address] [place] [address] Care Team Providers Name Role Phone Unavailable Unavailable Unavailable Problems This patient has no known problems. Allergies, Adverse Reactions, Alerts This patient has no known allergies or adverse reactions. Medications This patient has no known medications.
--- OUTSIDE RECORDS SUMMARY | 2019-05-10 08:32 | XMS REPORT | Summary of Care ---
:1950 Author Organization [facility] Address [address] [place] [address] Care Team Providers Name Role Phone Jean Paul Gordon Primary Care Provider Reason for Visit Reason Comments Appointment Encounter Details Date Type Department Care Team Description 03/22/2019 Telephone [facility] Efraín Carter MD Appointment Neurology-[address] [place] [id number] [address] [place] [address] [phone] Allergies No Known Allergiesdocumented as of this encounter (statuses as of 03/23/2019) Medications Medication Sig Dispensed Refills Start Date End Date Status methIMAzole 10 mg Take 10 mg by 6 06/07/2018 Active tablet mouth daily. pregabalin 300 mg Take 300 mg by 0 Active capsule mouth. hydrALAZINE 50 mg Take 50 mg by 0 Active tablet mouth. losartan-hydrochlorothi Take by mouth. 0 Active azide 100-25 mg per tablet hydrALAZINE 100 mg TAKE 1 TABLET BY 3 05/30/2018 Active tablet MOUTH THREE TIMES A DAY WITH FOOD spironolactone 25 mg Take 25 mg by 3 05/05/2018 Active tablet mouth daily. doxazosin 2 mg tablet TAKE 0.5 TABLET 3 06/05/2018 Active BY 2 TIMES EVERY DAY carvedilol 12.5 mg Take 25 mg by 0 Active tablet mouth. acetaminophen (TYLENOL Take 500 mg by 0 Active EXTRA STRENGTH) 500 mg mouth every 6 tablet (six) hours as needed for Pain. hflwcuf-ydynsmdpexqau-s Take 1 tablet by 0 Active affeine (EXCEDRIN mouth every 6 MIGRAINE) 250-250-65 mg (six) hours as per tablet needed for Pain. nitroglycerin 0.[address] 0.3 mg 0 Active sublingual tablet under the tongue every 5 (five) minutes as needed for Chest pain. insulin detemir U-100 inject 60 Units 0 Active 100 unit/mL injection under the skin. insulin lispro, human, inject under the 0 Active 100 unit/mL injection skin. busPIRone 5 mg TAKE 1 TABLET BY 60 tablet 4 11/14/2018 Active tabletIndications: MOUTH TWICE A DAY Chronic tension-type headache, intractable butorphanol 10 mg/mL USE 1 SPRAY IN 2.5 mL 0 02/02/2019 Active nasal spray ONE NOSTRIL EVERY 8 HOURS NEEDED FOR HEADACHE documented as of this encounter (statuses as of 03/23/2019) Active Problems Not on filedocumented as of this encounter (statuses as of 03/23/2019) Social History Tobacco Use Types Packs/Day Years [...] Treatment Date Type Specialty Care Team Description 03/23/2019 Office Visit Neurology Efraín Carter MD [address] [place] [address]. [place] [address] Health Maintenance Due Date Last Done Comments HEPATITIS C (HCV) SCREEN 1950 HgA1C 12/18/1952 CREATININE (SERUM) 12/18/1961 EYE EXAM 12/18/1961 LDL-C 12/18/1961 URINE MICROALBUMIN 12/18/1961 DTaP,Tdap,and Td Vaccines (1 - Tdap) 12/18/1962 FOOT EXAM 12/18/1969 Breast Cancer Screening (MAMMOGRAM) 1991 COLONOSCOPY 12/18/2001 Zoster Recombinant Vaccine (SHINGRIX) (1 of 2) 12/18/2001 Medicare Wellness Visit 12/18/2016 Osteoporosis Screening 12/18/2016 PNEUMOCOCCAL VACCINES 65+ (1 of 2 - PCV13) 12/18/2016 INFLUENZA VACCINE (#1) 2018 documented as of this encounter Results Not on filedocumented in this encounter Insurance Payer Benefit Plan / Group Subscriber ID Effective Dates Phone Address Type AETNA AETNA INDEMNITY [id number] 2017-Present Indemnity documented as of this encounter
--- OUTSIDE RECORDS SUMMARY | 2019-05-10 08:32 | XMS REPORT | Summary of Care ---
:1950 Author Organization [facility] Address [address] [place] [address] Care Team Providers Name Role Phone Jean Paul Gordon Primary Care Provider Reason for Visit Reason Comments Refill Request butorphanol 10 mg/mL nasal spray ( Encounter Details Date Type Department Care Team Description 03/22/2019 Telephone [facility] Efraín Carter, Refill Request Neurology-Kristin CAMPBELL (butorphanol 10 mg/mL [address] nasal spray () [address], [address] [place] [phone] Allergies No Known Allergiesdocumented as of this encounter (statuses as of 03/22/2019) Medications Medication Sig Dispensed Refills Start Date [...] tablet (six) hours as needed for Pain. xrxkqmi-sajnhqmdepsyz-i Take 1 tablet by 0 Active affeine [...] as of this encounter (statuses as of 03/22/2019) Active Problems Not on filedocumented as of this encounter (statuses as of 03/22/2019) Social History Tobacco Use Types Packs/Day Years [...] 03/23/2019 Office Visit Neurology Efraín Carter MD [address] [place] [phone] Health Maintenance Due Date Last Done [...] Dates Phone Address Type AET[employer] AETNA INDEMNITY [id number] 2017-Present Indemnity documented as of this encounter
--- OUTSIDE RECORDS SUMMARY | 2019-05-10 08:32 | XMS REPORT | Summary of Care ---
:1950 Author Organization [facility] Address [address] [place] [address] Care Team Providers Name Role Phone EvanJean Paul Primary Care Provider Reason for Visit Reason Comments Refill Request Encounter Details Date Type Department Care Team Description 03/16/2019 Refill [facility] Efraín Carter MD Refill Request Neurology-[address] [place] [phone] [address] [place] [address] [phone] Allergies No Known Allergiesdocumented as of this [...] tablet (six) hours as needed for Pain. xurhylj-dwycpbkbgzizi-i Take 1 tablet by 0 Active affeine [...] Treatment Date Type Specialty Care Team Description 03/26/2019 Office Visit Neurology Efraín Carter MD [address] [place] [address]. [place] [address] Health Maintenance Due Date Last [...] Dates Phone Address Type AETNA AETNA INDEMNITY [id number] 2017-Present Indemnity documented as of this encounter
--- OUTSIDE RECORDS SUMMARY | 2019-05-10 08:32 | XMS REPORT | Summary of Care ---
:1950 Author Organization [facility] Address [address] [place] [address] Care Team Providers Name Role Phone Evan, Jean Paul Primary Care Provider Reason for Visit Reason Comments Assessment Encounter Details Date Type Department Care Team Description 03/07/2019 Telephone [facility] Efraín Carter MD Assessment Neurology-[address] [place] [phone] [address] [place] [address] [phone] Allergies No Known Allergiesdocumented as of this encounter (statuses as of 03/12/2019) Medications Medication Sig Dispensed Refills Start Date [...] tablet (six) hours as needed for Pain. zscekyy-vebcnacritumm-d Take 1 tablet by 0 Active affeine [...] as of this encounter (statuses as of 03/12/2019) Active Problems Not on filedocumented as of this encounter (statuses as of 03/12/2019) Social History Tobacco Use Types Packs/Day Years [...] filedocumented in this encounter Plan of Treatment Health Maintenance Due Date [...] Dates Phone Address Type AETNA AETNA INDEMNITY [id number] 2017-Present Indemnity documented as of this encounter
--- OUTSIDE RECORDS SUMMARY | 2019-05-10 08:32 | XMS REPORT | Summary of Care ---
:1950 Author Organization [facility] Address [address] [place] [address] Care Team Providers Name Role Phone Jean Paul Gordon Primary Care Provider Reason for Visit Reason Comments Headache Encounter Details Date Type Department Care Team Description 03/23/2019 Office Visit [facility] Efraín Carter Essential hypertension (Primary Dx); Neurology-Kristin Radford MD Type 2 diabetes mellitus with diabetic polyneuropathy, with long-term current use of insulin; [address] [place] [address]. Complicated headache syndromes; Drive, [address] [place], [place] [phone] Allergies No Known Allergiesdocumented as of this encounter (statuses as of 03/26/2019) Medications Medication Sig Dispensed Refills Start Date End Date Status methIMAzole 10 mg Take 10 mg by 6 06/07/2018 Active tablet mouth daily. pregabalin 300 mg Take 300 mg 0 Active capsule by mouth. hydrALAZINE 50 mg Take 50 mg by 0 Active tablet mouth. losartan-hydrochlor Take by 0 Active othiazide 100-25 mg mouth. per tablet hydrALAZINE 100 mg TAKE 1 TABLET 3 05/30/2018 Active tablet BY MOUTH THREE TIMES A DAY WITH FOOD spironolactone 25 Take 25 mg by 3 05/05/2018 Active mg tablet mouth daily. doxazosin 2 mg TAKE 0.5 3 06/05/2018 Active tablet TABLET BY 2 TIMES EVERY DAY carvedilol 12.5 mg Take 25 mg by 0 Active tablet mouth. acetaminophen Take 500 mg 0 Active (TYLENOL EXTRA by mouth STRENGTH) 500 mg every 6 (six) tablet hours as needed for Pain. aspirin-acetaminoph Take 1 tablet 0 Active en-caffeine by mouth (EXCEDRIN MIGRAINE) every 6 (six) 250-250-65 mg per hours as tablet needed for Pain. nitroglycerin 0.[address] 0.3 mg 0 Active mg sublingual under the tablet tongue every 5 (five) minutes as needed for Chest pain. insulin detemir inject 60 0 Active U-100 100 unit/mL Units under injection the skin. insulin lispro, inject under 0 Active human, 100 unit/mL the skin. injection busPIRone 5 mg TAKE 1 TABLET 60 tablet 4 11/14/2018 Active tabletIndications: BY MOUTH Chronic TWICE A DAY tension-type headache, intractable amitriptyline 25 mg Take 1 tablet 30 tablet 0 03/23/2019 Active tablet by mouth at bedtime. butorphanol 10 USE 1 SPRAY 2.5 mL 0 03/23/2019 Active mg/mL nasal spray IN ONE NOSTRIL EVERY 8 HOURS NEEDED FOR HEADACHE butorphanol 10 USE 1 SPRAY 2.5 mL 0 02/02/2019 Discontinued mg/mL nasal spray IN ONE 0 (Reorder) NOSTRIL EVERY 8 HOURS NEEDED FOR HEADACHE documented as of this encounter (statuses as of 03/26/2019) Active Problems Not on filedocumented as of this encounter (statuses as of 03/26/2019) Social History Tobacco Use Types Packs/Day Years Used Date Never Smoker Alcohol Use Drinks/Week oz/Week Comments No Sex Assigned at Date Recorded Not on file Job Start Date Occupation Industry Not on file Not on file Not on file Travel History Travel Start Travel End No recent travel history available. documented as of this encounter Last Filed Vital Signs Vital Sign Reading Time Taken Comments Blood Pressure 173/90 03/23/2019 10:31 AM CAT CRACKER OPERATOR Pulse 64 03/23/2019 10:31 AM CAT CRACKER OPERATOR Temperature 36.7 C (98.1 F) 03/23/2019 10:31 AM CAT CRACKER OPERATOR Respiratory Rate 18 03/23/2019 10:31 AM CAT CRACKER OPERATOR Oxygen Saturation - - Inhaled Oxygen Concentration - - Weight 97.2 kg (214 lb 6 oz) 03/23/2019 10:31 AM CAT CRACKER OPERATOR Height 165.1 cm (5' 5") 03/23/2019 10:31 AM CAT CRACKER OPERATOR Body Mass Index 35.67 03/23/2019 10:31 AM CAT CRACKER OPERATOR documented in this encounter Progress Notes Efraín Carter MD - 03/23/2019 10:20 AM CST I have verified the medical student documentation and/or findings, including the history, physical exam, and medical decision making for the patient Blanka Ferrell on 03/23/2019. Additionally, I have personally performed or re- performed the physical and neurological exam and medical decision making activities of this patient's evaluation and management service. The office visit lasted 25 minutes with discussion about her depression, and she could see a psychiatrist if she chose within the [facility] system.She also understands the limitations on the Stadol medication, and she also understands that we can't prescribe benzodiazepines for her. These discussions did take 13 minutes of the 25 minute visit. Efraín Carter MD Systems Trainer Neurology HISTORY OF PRESENT ILLNESS: Blanka Ferrell is a 68 year old female with PHM including but not limited to HTN , DM, MIRIAN, chronic headache, h/o stroke, here for headache f/u. Since JUAN J patient denies changes in the location, character, frequency, severity, or associated symptoms of her headaches. For the last two weeks she has had increased anxiety due to the unexpected of her daughter. This has been accompanied by an increased headache frequency proportional to increases experienced in the past secondary to life stressors. Headaches are sometimes preceded by olfactory sensations and paraesthesias. Headaches are associated with photophobia, phonophobia, nausea, and improve with a dark room. She continues to use stadol as prescribed for headache control. This provides moderate relief. Patient reports adverse responses to multiple headache medications in the past, including triptans but not including amitriptyline. She continues to experience anxiety and states that buspirone has provided moderate relief. She alsohas severe insomnia but she does not use CPAP due to "claustrophobia." Patient also complains that her neuropathic pain has worsened since she was forced to discontinue lyrica due to cost. She attempted to use gabapentin but could not tolerate due to GI distress. Radiology: No final results containing an impression from the past 30 days were found. Past medical history: obesity, marked hypertension, depression, chronic headaches, diabetes which attimes is poorly controlled. Current Outpatient Medications: amitriptyline 25 mg tablet, Take 1 tablet by mouth at bedtime., Disp: 30 tablet, Rfl: 0 butorphanol 10 mg/mL nasal spray, USE 1 SPRAY IN ONE NOSTRIL EVERY 8 HOURS NEEDED FOR HEADACHE, Disp: 2.5 mL, Rfl: 0 busPIRone 5 mg tablet, TAKE 1 TABLET BY MOUTH TWICE A DAY, Disp: 60 tablet , Rfl: 4 acetaminophen (TYLENOL EXTRA STRENGTH) 500 mg tablet, Take 500 mg by mouth every 6 (six) hours as needed for Pain., Disp: , Rfl: iuzgqmi-dfwmqzduahyng-grryojrx (EXCEDRIN MIGRAINE) 250-250-65 mg per tablet , Take 1 tablet by mouth every 6 (six) hours as needed for Pain., Disp: , Rfl: carvedilol 12.5 mg tablet, Take 25 mg by mouth., Disp: , Rfl: doxazosin 2 mg tablet, TAKE 0.5 TABLET BY 2 TIMES EVERY DAY, Disp: , Rfl: 3 hydrALAZINE 100 mg tablet, TAKE 1 TABLET BY MOUTH THREE TIMES A DAY WITH FOOD, Disp: , Rfl: 3 hydrALAZINE 50 mg tablet, Take 50 mg by mouth., Disp: , Rfl: insulin detemir U-100 100 unit/mL injection, inject 60 Units under the skin., Disp: , Rfl: insulin lispro, human, 100 unit/mL injection, inject under the skin., Disp : , Rfl: losartan-hydrochlorothiazide 100-25 mg per tablet, Take by mouth., Disp: , Rfl: methIMAzole 10 mg tablet, Take 10 mg by mouth daily., Disp: , Rfl: 6 nitroglycerin 0.3 mg sublingual tablet, Place 0.3 mg under the tongue every 5 (five) minutes as needed for Chest pain., Disp: , Rfl: pregabalin 300 mg capsule, Take 300 mg by mouth., Disp: , Rfl: spironolactone 25 mg tablet, Take 25 mg by mouth daily., Disp: , Rfl: 3 No other pertinent family history or social history relevant to this office visit. Social History Socioeconomic History Marital status: Spouse name: Not on file Number of children: Not on file Years of education: Not on file Highest education level: Not on file Occupational History Not on file Social Needs Financial resource strain: Not on file Food insecurity: Worry: Not on file Inability: Not on file Transportation needs: Medical: Not on file Non-medical: Not on file Tobacco Use Smoking status: Never Smoker Substance and Sexual Activity Alcohol use: No Drug use: No Sexual activity: Not on file Lifestyle Physical activity: Days per week: Not on file Minutes per session: Not on file Stress: Not on file Relationships Social connections: Talks on phone: Not on file Gets together: Not on file Attends taoism service: Not on file Active member of club or organization: Not on file Attends meetings of clubs or organizations: Not on file Relationship status: Not on file Intimate partner violence: Fear of current or ex partner: Not on file Emotionally abused: Not on file Physically abused: Not on file Forced sexual activity: Not on file Other Topics Concern Not on file Social History Narrative Not on file Vital signs: BP (!) 173/90 | Pulse 64 | Temp 36.7 C (98.1 F) (Oral) | Resp 18 | Ht 5 ' 5" (1.651 m) | Wt 214 lb 6 oz (97.2 kg) | BMI 35.67 kg/m Mental Status: well-kept and appears stated age, alert and oriented times three , cooperative during the exam, attention and concentration normal, executive housekeeper and expression intact, fund of information normal, recent and remote memory intact, affect/mood normal and relaxed. Cranial nerves (vision, eye movement): EOM intact, equal reactive pupils, accommodation reflex present, full visual syed. Cranial nerves (face): normal mastication, facial sensation normal, facial motor normal, corneal reflex not done. Cranial nerve (hearing): normal conversational hearing, finger rub WNL. Cranial nerve (accessory): normal r/l sternomastoid bulk/tone/power. Shoulder shrug right and left normal. Cranial nerve (tongue): tongue bulk normal, tongue midline, palate centered. Peripheral motor: Arms: Strength, tone, power normal bilaterally. Legs: Strength, tone, power normal bilaterally. Reflexes: Arms: Triceps, biceps, brachioradialis 1+ and symmetrical Legs: Patelllar, ankle jerks 1+ and symmetrical. Toes downgoing bilaterally. Peripheral sensation: Arms: light touch intact, primary sharp touch normal, vibration symmetrical and normal bilaterally. Legs: light touch intact, primary sharp touch and vibration diminished in a stocking distribution bilaterally. Coordination: Bilateral Obavmd-ec-yins and finger tapping normal. Bilateral RAH motions symmetrical. Gait: gait normal, arm swing intact. Lungs: lungs clear, no wheezing, no rhonchi. Heart: CV RRR, no murmurs, carotid bruits absent. Peripheral vascular: no peripheral cyanosis, clubbing absent ASSESSMENT AND RECOMMENDATIONS: Patient's condition is unchanged since JUAN J. Her headaches have migraine and tension features. Counseled patient on safe use of stadol and will refill prescription for 1 month. Will also prescribe amitriptyline as patient responded well to this medication in the past and it may now help with her headaches, insomnia, and diabetic neuropathy. The amitriptyline may be also indicated with the history of depression. Migraine headache with aura [G43.109] Tension headache, chronic [G44.229] Insomnia w/ sleep apnea [G47.00, G47.30] Diabetic neuropathy [E11.40] - Plan: Continue with stadol and begin amitryptiline 25 mg. The neuropathy symptoms have not changedfrom previous visits. Jones Hardy [id number] signed by Efraín Carter MD at 03/26/2019 1:59 PM CSTdocumented in this encounter Plan of Treatment Date Type Specialty Care Team Description 04/27/2019 Office Visit Family Medicine Shanae Saunders MD [address] [place] [address] DR JEROME, SARAH [phone] Health Maintenance Due Date Last Done Comments [...] filedocumented in this encounter Visit Diagnoses Diagnosis Essential hypertension - Primary Unspecified essential hypertension Type 2 diabetes mellitus with diabetic polyneuropathy, with long-term current use of insulin Complicated headache syndromes Other complicated headache syndrome Other depression documented in this encounter Insurance Payer Benefit Plan / Subscriber ID Effective Dates Phone Address Type Group HUMANA - HUMANA [id number] 2019-Presen Medicare Adv MANAGED MEDICARE t S MEDICARE documented as of this encounter
--- OUTSIDE RECORDS SUMMARY | 2019-05-10 08:32 | XMS REPORT | Summary of Care ---
:1950 Author Organization [facility] Address [address] [place] [id number] Care Team Providers Name Role Phone Jean Paul Gordon Primary Care Provider Reason for Visit Reason Comments Appointment Encounter Details Date Type Department Care Team Description 03/22/2019 Telephone [facility] Efraín Carter MD Appointment Neurology-[address] [place] [phone] [address] [place] [address] [phone] Allergies No Known Allergiesdocumented as of this [...] tablet (six) hours as needed for Pain. dqubulp-hvjxcckhmgend-w Take 1 tablet by 0 Active affeine [...] 03/23/2019 Office Visit Neurology Efraín Carter MD [address] [place] [address]. [place] [address] Health Maintenance Due Date Last [...] Dates Phone Address Type AETNA AETNA INDEMNITY [id number] 2017-Present Indemnity documented as of this encounter
--- OUTSIDE RECORDS SUMMARY | 2019-05-10 08:33 | XMS REPORT | Summary of Care ---
:1950 Author Organization [facility] Address [address] [place] [address] Care Team Providers Name Role Phone Jean Paul Gordon Primary Care Provider Reason for Visit Reason Comments Refill Request Encounter Details Date Type Department Care Team Description 04/15/2019 Refill [facility] Efraín Carter MD Refill Request Neurology-[address] [place] [phone] [address] [place] [address] [phone] Allergies No Known Allergiesdocumented as of this encounter (statuses as of 04/16/2019) Medications Medication Sig Dispensed Refills Start Date [...] Active tablet mouth. acetaminophen Take 500 mg by 0 Active (TYLENOL EXTRA mouth every 6 STRENGTH) 500 mg (six) hours as tablet needed for Pain. aspirin-acetaminophe Take 1 tablet 0 Active n-caffeine (EXCEDRIN by mouth every MIGRAINE) 250-250-65 6 (six) hours mg per tablet as needed for Pain. nitroglycerin 0.3 mg [...] tablet 4 11/14/2018 Active tabletIndications: BY MOUTH TWICE Chronic tension-type A DAY headache, intractable butorphanol 10 mg/mL USE 1 SPRAY IN 2.5 mL 0 03/23/2019 Active nasal spray ONE NOSTRIL EVERY 8 HOURS NEEDED FOR HEADACHE AMITRIPTYLINE 25 mg TAKE 1 TABLET 30 tablet 0 04/16/2019 Active tablet BY MOUTH EVERYDAY AT BEDTIME amitriptyline 25 mg Take 1 tablet 30 tablet 0 03/23/2019 Discontinued tablet by mouth at 0 bedtime. documented as of this encounter (statuses as of 04/16/2019) Active Problems Not on filedocumented as of this encounter (statuses as of 04/16/2019) Social History Tobacco Use Types Packs/Day Years [...] Treatment Date Type Specialty Care Team Description 04/20/2019 Office Visit Family Medicine Shanae Saunders MD [address] [place] [address] [place] [address] Health Maintenance Due Date Last Done [...] Payer Benefit Plan / Subscriber ID Effective Phone Address Type Group Dates AETNA AETNA INDEMNITY [id number] 2017-Prese Indemnity nt HUMANA - HUMANA MEDICARE [id number] 2019-Prese Medicare Adv MANAGED nt FFS MEDICARE documented as of this encounter
--- OUTSIDE RECORDS SUMMARY | 2019-05-10 08:33 | XMS REPORT | Summary of Care ---
:1950 Author Organization [facility] Address [address] [place] [address] Care Team Providers Name Role Phone EvanJean Paul Primary Care Provider Reason for Visit Reason Comments Refill Request Encounter Details Date Type Department Care Team Description 04/19/2019 Telephone [facility] Efraín Carter MD Refill Request Neurology-[address] [place] [phone] [address] [place] [address] [phone] Allergies No Known Allergiesdocumented as of this encounter (statuses as of 04/19/2019) Medications Medication Sig Dispensed Refills Start Date [...] Chronic TWICE A DAY tension-type headache, intractable AMITRIPTYLINE 25 mg TAKE 1 TABLET 30 tablet 0 04/16/2019 Active tablet BY MOUTH EVERYDAY AT BEDTIME butorphanol 10 USE 1 SPRAY 2.5 mL 0 04/19/2019 Active mg/mL nasal spray IN ONE NOSTRIL EVERY 8 HOURS NEEDED FOR HEADACHE butorphanol 10 USE 1 SPRAY 2.5 mL 0 03/23/2019 Discontinued mg/mL nasal spray IN ONE 0 (Reorder) NOSTRIL EVERY 8 HOURS NEEDED FOR HEADACHE documented as of this encounter (statuses as of 04/19/2019) Active Problems Not on filedocumented as of this encounter (statuses as of 04/19/2019) Social History Tobacco Use Types Packs/Day Years [...] Office Visit Family Medicine Shanae Saunders MD [address] [place] [address] [place] [address] Health Maintenance Due Date Last Done [...] Phone Address Type Group HUMANA - HUMANA [id number] 2019-Presen Medicare Adv MANAGED MEDICARE t FFS MEDICARE documented as of this encounter
--- OUTSIDE RECORDS SUMMARY | 2019-05-10 08:33 | XMS REPORT | Summary of Care ---
:1950 Author Organization [facility] Address [address] [place] [address] Care Team Providers Name Role Phone Jean Paul Gordon Primary Care Provider Reason for Visit Reason Comments Headache Encounter Details Date Type Department Care Team Description 03/23/2019 Office Visit [facility] Efraín Carter Essential hypertension (Primary Dx); Neurology-Kristin Radford MD Type 2 diabetes mellitus with diabetic polyneuropathy, with long-term current use of insulin; [address] [place] [address]. Complicated headache syndromes; Drive, [address] [place], [place] [phone] Allergies No Known Allergiesdocumented as of [...] Comments Blood Pressure 173/90 03/23/2019 10:31 AM [facility] [facility] [facility] Pulse 64 03/23/2019 10:31 AM [facility] Temperature 36.7 C (98.1 F) 03/23/2019 10:31 AM [facility] Respiratory Rate 18 03/23/2019 10:31 AM [facility] Oxygen Saturation - - Inhaled Oxygen Concentration - - Weight 97.2 kg (214 lb 6 oz) 03/23/2019 10:31 AM [facility] [facility] Height 165.1 cm (5' 5") 03/23/2019 10:31 AM [facility] Body Mass Index 35.67 03/23/2019 10:31 AM [facility] [facility] documented in this encounter Progress Notes Efraín [...] a psychiatrist if she chose within the [facility] system.She also understands the limitations on the Stadol medication, and she also understands that we can't prescribe benzodiazepines for her. These discussions did take 13 minutes of the 25 minute visit. Efraín Carter MD Makeup Instructor Neurology HISTORY OF PRESENT ILLNESS: Blanka Ferrell [...] as needed for Pain., Disp: , Rfl: bwrvgst-qgrzwgodqyvly-nwevmcks (EXCEDRIN MIGRAINE) 250-250-65 mg per tablet , [...] file Gets together: Not on file Attends orthodoxy service: Not on file Active member of [...] during the exam, attention and concentration normal, medical records receptionist and expression intact, fund of information normal, [...] in a stocking distribution bilaterally. Coordination: Bilateral Vsidjn-gm-xkbf and finger tapping normal. Bilateral RAH motions [...] have not changedfrom previous visits. Jones Hardy [id number] signed by Efraín Carter MD at 03/26/2019 1:59 PM CSTdocumented in this encounter Plan of Treatment Date Type Specialty Care Team Description 04/27/2019 Office Visit Family Medicine Shanae Saunders MD [address] [place] [address] [place], [place] [address] Health Maintenance Due [...] Phone Address Type Group HUMANA - HUMANA [id number] 2019-Presen Medicare Adv MANAGED MEDICARE t S MEDICARE documented as of this encounter
--- OUTSIDE RECORDS SUMMARY | 2019-05-10 08:33 | XMS REPORT | Summary of Care ---
:1950 Author Organization [facility] Address [address] [place] [address] Care Team Providers Name Role Phone EvanJean Paul Primary Care Provider Reason for Visit Reason Comments Refill Request Encounter Details Date Type Department Care Team Description 04/19/2019 Telephone [facility] Efraín Carter MD Refill Request Neurology-[address] [place] [phone] [address] [place] [address] [phone] Allergies No Known Allergiesdocumented as of this [...] Office Visit Family Medicine Shanae Saunders MD [address] [place] [address] [place] [address] Health Maintenance Due Date Last Done [...] Phone Address Type Group HUMANA - HUMANA [id number] 2019-Presen Medicare Adv MANAGED MEDICARE t FFS MEDICARE documented as of this encounter
--- OUTSIDE RECORDS SUMMARY | 2019-05-10 08:33 | XMS REPORT | Summary of Care ---
:1950 Author Organization [facility] Address [address] [place] [address] Care Team Providers Name Role Phone Shanae Saunders MD Primary Care Provider Reason for Visit Reason Comments Establish Care Encounter Details Date Type Department Care Team Description 04/20/2019 Office Visit [facility] Family Shanae Saunders Grief ( Primary Dx); Medicine - Kristin Noonan MD Reactive depression; [facility] [address] [facility] [address], [place] [phone] Allergies No Known Allergiesdocumented as of this encounter (statuses as of 04/20/2019) Medications Medication Sig Dispensed Refills Start End Date Status Date methIMAzole 10 mg Take 10 mg by 6 Active tablet mouth daily. 9 pregabalin 300 mg Take 300 mg 0 Active capsule by mouth. hydrALAZINE 50 mg Take 50 mg by 0 Active tablet mouth. losartan-hydrochlorot Take by 0 Active hiazide 100-25 mg per mouth. tablet hydrALAZINE 100 mg TAKE 1 TABLET 3 Active tablet BY MOUTH 9 THREE TIMES A DAY WITH FOOD spironolactone 25 mg Take 25 mg by 3 Active tablet mouth daily. 9 doxazosin 2 mg tablet TAKE 0.5 3 Active TABLET BY 2 9 TIMES EVERY DAY acetaminophen Take 500 mg 0 Active (TYLENOL EXTRA by mouth STRENGTH) 500 mg every 6 (six) tablet hours as needed for Pain. nitroglycerin 0.[address] 0.3 mg 0 Active sublingual tablet under the tongue every 5 (five) minutes as needed for Chest pain. insulin detemir U-100 inject 60 0 Active 100 unit/mL injection Units under the skin. insulin lispro, inject under 0 Active human, 100 unit/mL the skin. injection busPIRone 5 mg TAKE 1 TABLET 60 tablet 4 Active tabletIndications: BY MOUTH 9 Chronic tension-type TWICE A DAY headache, intractable AMITRIPTYLINE 25 mg TAKE 1 TABLET 30 tablet 0 Active tablet BY MOUTH 0 EVERYDAY AT BEDTIME butorphanol 10 mg/mL USE 1 SPRAY 2.5 mL 0 Active nasal spray IN ONE 0 NOSTRIL EVERY 8 HOURS NEEDED FOR HEADACHE SERTraline 25 mg Take 1 tablet 30 tablet 5 Active tabletIndications: by mouth 0 Reactive depression daily. amLODIPine 5 mg Take 5 mg by 0 Active tablet mouth 2 (two) 0 times daily. ELIQUIS 5 mg tablet 0 Active 0 chlordiazePOXIDE 10 TAKE 1 0 Active mg capsule CAPSULE BY 0 MOUTH 3 TIMES A DAY NEEDED cloNIDine 0.3 mg 0 Active tablet 0 ondansetron 4 mg DISSOLVE OVER 0 Active disintegrating tablet THE TONGUE 2 0 TIMES A DAY sotalol 80 mg tablet 0 Active 0 zolpidem 10 mg tablet Take 10 mg by 0 Active mouth at 0 bedtime. carvedilol 12.5 mg Take 25 mg by 0 04/20/19 Discontinued tablet mouth. 20 (Discontinued by another clinician) aspirin-acetaminophen Take 1 tablet 0 04/20/19 Discontinued -caffeine (EXCEDRIN by mouth 20 (Discontinued by MIGRAINE) 250-250-65 every 6 (six) another mg per tablet hours as clinician) needed for Pain. documented as of this encounter (statuses as of 04/20/2019) Active Problems No known active problemsdocumented as of this encounter (statuses as of 2019) Social History Tobacco Use Types Packs/Day Years [...] Sign Reading Time Taken Comments Blood Pressure - - Pulse - - Temperature - - Respiratory Rate - - Oxygen Saturation - - Inhaled Oxygen Concentration - - Weight 104.3 kg (230 lb) 04/20/2019 9:34 AM HOME AGENT Height 165.1 cm (5' 5") 04/20/2019 9:34 AM HOME AGENT Body Mass Index 38.27 04/20/2019 9:34 AM HOME AGENT documented in this encounter Patient Instructions Patient InstructionsShanae Saunders MD - 04/20/2019 9:00 AM HOME AGENT Helping Yourself Through Grief and Loss Do what you can to stay healthy. Reaching out for support will help a great deal. You may find yourself asking: Why? Its normal to seek meaning by asking questions, but theres not always ananswer for loss. With time, your loss may still be part of your life, but not the only thing in it. Take care of yourself Taking good care of yourself helps your body heal from the physical and emotional symptoms of grief.Pay extra attention to healthy exercise, sleep, and eating routines. What else do you need to feel better? Having family around can help you feel loved. Or you might need a walk or movie with friends to take your mind off things for a little while. Accept support Joining the world again is part of healing. These tips may help: Stay in touch with family and friends, even if its hard to talk. Tell people how they can help. It can be as simple as bringing you a meal or walking your dog. Stick to a daily routine that keeps you connected to friends and family. Try to avoid making major decisions. Attend a support group of people who have been through the same type of loss. When to get help There's no normal length of time to grieve. But if you feel stuck and unable to move on, or if it has been 6 months or more since your loss and you still have signs of grief listed below, it may be time for professional help. Seeking professional help is not a sign of weakness. It means that you are taking responsibility for your recovery. Be alert to depression and call your healthcare provider if you: Cant go to work or take care of the kids. Cant eat or sleep normally. Feel helpless, hopeless, or worthless. Lose interest in hobbies, friends, and activities that used to give pleasure. Gain or lose a lot of weight. Feel your grief is getting worse, or not getting any better. Have repeated thoughts of suicide or of harming yourself. Call 911 or a crisis hotline (you can find one online) if you have these thoughts. At some point, youll begin thinking about the future. Youll want to look ahead and make plans.To help yourself reach this point, try to do one thing each day to join in life. Keep at it, even ifit feels strange at first. Your life can never be exactly the same. But one day youll find youre living life fully again. [employer] last reviewed this educational content on 03/17/201719997057-5605 [employer] [place] [address]. All rights reserved. This information is not intended as a substitute for professional medical care. Always follow your healthcare professional's instructions. AGENT documented in this encounter Progress Notes Shanae Saunders MD - 04/20/2019 9:00 AM CST Cc: Chief Complaint Patient presents with [facility]-DEPRESSION HPI Blanka Ferrell is a 68 year old female who presents as a new patient to establish care and for depression. She is accompanied by her . This patient's significant chronic medical conditions include DM2, HTN, hyperthyroidism, GERD, and she had a recent hospitalization for diverticulitis. The patient's specialists: Dr. Carter-Neuro, Dr. Gordon-GI (scheduled for colonoscopy and EGD next week). Depression C/o depression symptoms for the past 7 years. Severity: Severe. Progression: Worsened x 3 weeks due to her 46yo daughter passing away suddenly. The patient' s depression symptoms include: Dysphoric mood, frequency crying spells, insomnia, anxiousness, and anhedonia. Denies SI, HI, manic symptoms, delusions , or hallucinations. Past mental health diagnoses: Depression. Past treatments : Buspironeand amitriptyline help her symptoms somewhat. Psychosocial stressors: Loss of 2 children (3 weeks ago and 7 years ago), has to care for a blind daughter and her teenage sons. Calvin Moscoso has No Known Allergies. Medications Outpatient Medications Prior to Visit Medication Sig Dispense Refill amLODIPine 5 mg tablet Take 5 mg by mouth 2 (two) times daily. chlordiazePOXIDE 10 mg capsule TAKE 1 CAPSULE BY MOUTH 3 TIMES A DAY NEEDED cloNIDine 0.3 mg tablet ELIQUIS 5 mg tablet ondansetron 4 mg disintegrating tablet DISSOLVE OVER THE TONGUE 2 TIMES A DAY sotalol 80 mg tablet zolpidem 10 mg tablet Take 10 mg by mouth at bedtime. butorphanol 10 mg/mL nasal spray USE 1 SPRAY IN ONE NOSTRIL EVERY 8 HOURS NEEDED FOR HEADACHE2.5 mL 0 AMITRIPTYLINE 25 mg tablet TAKE 1 TABLET BY MOUTH EVERYDAY AT BEDTIME 30 tablet 0 busPIRone 5 mg tablet TAKE 1 TABLET BY MOUTH TWICE A DAY 60 tablet 4 acetaminophen (TYLENOL EXTRA STRENGTH) 500 mg tablet Take 500 mg by mouth every 6 (six) hours asneeded for Pain. doxazosin 2 mg tablet TAKE 0.5 TABLET BY 2 TIMES EVERY DAY 3 hydrALAZINE 100 mg tablet TAKE 1 TABLET BY MOUTH THREE TIMES A DAY WITH FOOD 3 hydrALAZINE 50 mg tablet Take 50 mg by mouth. insulin detemir U-100 100 unit/mL injection inject 60 Units under the skin. insulin lispro, human, 100 unit/mL injection inject under the skin. losartan-hydrochlorothiazide 100-25 mg per tablet Take by mouth. methIMAzole 10 mg tablet Take 10 mg by mouth daily. 6 nitroglycerin 0.[address] 0.3 mg under the tongue every 5 (five) minutes as needed for Chest pain. pregabalin 300 mg capsule Take 300 mg by mouth. spironolactone 25 mg tablet Take 25 mg by mouth daily. 3 dbinzmj-aataoswmzxuyq-ncxwzwwj (EXCEDRIN MIGRAINE) 250-250-65 mg per tablet Take 1 tablet by mouth every 6 (six) hours as needed for Pain. carvedilol 12.5 mg tablet Take 25 mg by mouth. No facility-administered medications prior to visit. Histories Past Medical History: Diagnosis Date Diabetic neuropathy Migraine headache with aura Tension headache, chronic No past surgical history on file. Social History Socioeconomic History Marital status: Spouse [...] file Tobacco Use Smoking status: Never Smoker Smokeless tobacco: Never Used Substance and Sexual Activity Alcohol use: No Drug use: No Sexual activity: Not on file Lifestyle Physical activity: Days per week: Not on file Minutes per session: Not on file Stress: Not on file Relationships Social connections: Talks on phone: Not on file Gets together: Not on file Attends sabianism service: Not on file Active member of [...] file Social History Narrative Not on file History reviewed. No pertinent family history. Review of Systems Constitutional: Negative. HENT: Negative. Eyes: Negative. Respiratory: Negative. Cardiovascular: Negative. Gastrointestinal: Negative. Genitourinary: Negative. Musculoskeletal: Positive for arthralgias. Skin: Negative. Neurological: Negative. Psychiatric/Behavioral: Positive for decreased concentration, dysphoric mood and sleep disturbance. Negative for suicidal ideas. The patient is nervous/ anxious. Endocrine: Endocrine negative Vital Signs Ht 5' 5" (1.651 m) | Wt 230 lb (104.3 kg) | BMI 38.27 kg/m Physical Exam Constitutional: She is oriented to person, place, and time. She appears well- developed and well-nourished. No distress. HENT: Mouth/Throat: Mucous membranes are normal. Eyes: Pupils are equal, round, and reactive to light. Conjunctivae are normal. No scleral icterus. Neck: Neck supple. No thyromegaly present. Cardiovascular: Normal rate, regular rhythm, normal heart sounds and intact distal pulses. Exam reveals no gallop and no friction rub. No murmur heard. Pulmonary/Chest: Effort normal and breath sounds normal. She has no wheezes. She has no rales. Musculoskeletal: She exhibits no edema. Lymphadenopathy: She has no cervical adenopathy. Neurological: She is alert and oriented to person, place, and time. Skin: Skin is warm and dry. No rash noted. No pallor. Psychiatric: Her speech is normal and behavior is normal. Judgment and thought content normal. Her mood appears anxious. Thought content is not paranoid and not delusional. Cognition and memory are normal. She exhibits a depressed mood. She expresses no homicidal and no suicidal ideation. Nursing note and vitals reviewed. Assessment/Plan Blanka was seen today for establish care and depression. The available medical records in [facility] were reviewed. Will request the patient's outside medical records for my review. Diagnoses and all orders for this visit: ICD-10-CM ICD-9-CM 1. Reactive depression F32.9 300.4 2. Anxiousness F41.9 300.00 3. Grief F43.21 309.0 Discussed the medication treatment options and we decided upon a trial of an SSRI. Start sertralineas noted. Continue buspirone and amitriptyline. The potential side effects of this drug class/medication were reviewed and the patient voiced understanding. The patient declines referral for counseling or Psychiatry care at this time. We discussed healthy ways of coping with grief. Thyroid function testing is UTD. Close follow-up has been scheduled but the patient understands she can follow-up even sooner if her symptoms don't improve or if other mental health issues develop. Orders: - SERTraline 25 mg tablet; Take 1 tablet by mouth daily. Plan of care, desired health behaviors, goals, Ddx, and any prescribed medications were discussed with the patient. This visit did not involve counseling and coordination that comprised more than 50% of the visit time. Education resources and self-management tools were provided and reviewed with the AVS. Patient/guardian/family verbalized understanding and agrees to the plan of care. Barriers tocare: None. Ability to manage care: Good. Advanced care planning (living will) information was not given/offered to the patient to review for discussion at a future visit. If applicable, the [facility] database was accessed to review any controlled substance prescription claims data. If the patient is taking prescribed medications, the [employer] prescription claims data in [facility] was reviewed to assess patient compliance with the medication treatment plan. Follow-up: Return in about 2 weeks (around 05/04/2019) for depression follow-up and f/u of other chronic conditions (30 min). Follow-up sooner if any problems or concerns. Scribe Attestation I, Poppy Holman , am scribing for, and in the presence of, Shanae Saunders MD who performed the services described here-in. Poppy Holman, April 20, 2019, 9:43 AM Physician Attestation I, Shanae Saunders MD, personally performed the services described in this documentation , as scribed by, Poppy Holman in my presence and it is both accurate and complete. Shanae Saunders MD April 20, 2019, 9:43 AM documented in this encounter Plan of Treatment Health [...] filedocumented in this encounter Visit Diagnoses Diagnosis Grief - Primary Adjustment disorder with depressed mood Reactive depression Dysthymic disorder Anxiousness Anxiety state, unspecified documented in this encounter Insurance Payer Benefit Plan / Subscriber ID Effective Dates Phone Address Type Group HUMANA - HUMANA [id number] 2019-Presen Medicare Adv MANAGED MEDICARE t FFS MEDICARE documented as of this encounter
--- OUTSIDE RECORDS SUMMARY | 2019-05-10 08:34 | XMS REPORT | Summary of Care ---
:1950 Author Organization [facility] Address [address] [place] [address] Care Team Providers Name Role Phone Shanae Saunders MD Primary Care Provider Reason for Visit Reason Comments Establish Care Encounter Details Date Type Department Care Team Description 04/20/2019 Office Visit [facility] Family Shanae Saunders Grief ( Primary Dx); Medicine - Kristin Noonan MD Reactive depression; [facility] [address] [facility] [address] [facility] [address], [place] [address] [phone] Allergies No Known Allergiesdocumented as of this encounter (statuses as of 04/20/2019) Medications Medication Sig Dispensed Refills Start End Date Status Date methIMAzole 10 mg Take 10 mg by 6 Active tablet mouth daily. 9 hydrALAZINE 50 mg Take 50 mg by 0 Active tablet mouth 3 (three) times daily with meals. Insulin Detemir 100 inject under 0 Active unit/mL (3 mL) the skin. injection AMITRIPTYLINE 25 mg TAKE 1 TABLET 30 tablet 0 Active tablet BY MOUTH 0 EVERYDAY AT BEDTIME butorphanol 10 mg/mL USE 1 SPRAY IN 2.5 mL 0 Active nasal spray ONE NOSTRIL 0 EVERY 8 HOURS NEEDED FOR HEADACHE SERTraline 25 mg Take 1 tablet 30 tablet 5 Active tabletIndications: by mouth 0 Reactive depression daily. amLODIPine 5 mg Take 5 mg by 0 Active tablet mouth 2 (two) 0 times daily. ELIQUIS 5 mg tablet Take 5 mg by 0 Active mouth 2 (two) 0 times daily. cloNIDine 0.3 mg Take 0.3 mg by 0 Active tablet mouth 3 0 (three) times daily. ondansetron 4 mg Take 4 mg by 0 Active disintegrating mouth every 8 0 tablet (eight) hours as needed for Nausea and Vomiting (N/V). sotalol 80 mg tablet Take 80 mg by 0 Active mouth every 12 0 (twelve) hours. zolpidem 10 mg Take 10 mg by 0 Active tablet mouth at 0 bedtime. I ADVISE AGAINST TAKING THIS MEDICATION DUE TO THE RISKS. [facility] pantoprazole 40 mg Take 40 mg by 0 Active EC tablet mouth daily. 9 gabapentin 100 mg Take 100 mg by 0 Active capsule mouth 2 (two) times daily. carvediloL 25 mg Take 25 mg by 0 Active tablet mouth 2 (two) times daily with meals. proMETHazine 25 mg Take 12.5 mg 0 Active tablet by mouth 3 (three) times daily as needed for Nausea and Vomiting (N/V). insulin aspart U-100 inject under 0 Active (NOVOLOG FLEXPEN the skin. U-100 INSULIN) 100 unit/mL (3 mL) injection pregabalin 300 mg Take 300 mg by 0 04/20/19 Discontinued capsule mouth. 20 (Discontinued by another clinician) losartan-hydrochloro Take by 0 04/20/19 Discontinued thiazide 100-25 mg mouth. 20 (Discontinued by per tablet another clinician) hydrALAZINE 100 mg TAKE 1 TABLET 3 04/20/19 Discontinued tablet BY MOUTH THREE 9 20 (Discontinued by TIMES A DAY another WITH FOOD clinician) spironolactone 25 mg Take 25 mg by 3 04/20/19 Discontinued tablet mouth daily. 9 20 (Discontinued by another clinician) doxazosin 2 mg TAKE 0.5 3 04/20/19 Discontinued tablet TABLET BY 2 9 20 (Discontinued by TIMES EVERY another DAY clinician) carvedilol 12.5 mg Take 25 mg by 0 04/20/19 Discontinued tablet mouth. 20 (Discontinued by another clinician) acetaminophen Take 500 mg by 0 04/20/19 Discontinued (TYLENOL EXTRA mouth every 6 20 (Therapy STRENGTH) 500 mg (six) hours as completed) tablet needed for Pain. aspirin-acetaminophe Take 1 tablet 0 04/20/19 Discontinued n-caffeine (EXCEDRIN by mouth every 20 (Discontinued by MIGRAINE) 250-250-65 6 (six) hours another mg per tablet as needed for clinician) Pain. nitroglycerin 0.[address] 0.3 mg 0 04/20/19 Discontinued sublingual tablet under the 20 (Discontinued by tongue every another 5 (five) clinician) minutes as needed for Chest pain. insulin lispro, inject under 0 04/20/19 Discontinued human, 100 unit/mL the skin. 20 (Discontinued by injection another clinician) busPIRone 5 mg TAKE 1 TABLET 60 tablet 4 04/20/19 Discontinued tabletIndications: BY MOUTH TWICE 9 20 (Patient Chronic tension-type A DAY Preference) headache, intractable chlordiazePOXIDE 10 TAKE 1 CAPSULE 0 04/20/19 Discontinued mg capsule BY MOUTH 3 0 20 (Patient TIMES A DAY Preference) NEEDED documented as of this encounter (statuses as of 04/20/2019) Active Problems Problem Noted Date Grief 04/20/2019 Reactive depression 04/20/2019 documented as of this encounter (statuses as of 04/20/2019) Social History Tobacco Use Types Packs/Day Years [...] 104.3 kg (230 lb) 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 Olga last reviewed this educational content on 03/17/201719990714-2123 [employer]. [address] [place] [address], [place] [address]. All rights reserved. This information is not intended as a substitute for professional medical care. Always follow your healthcare professional's instructions. TENNIS COACH documented in this encounter Progress Notes Shanae Saunders MD - 04/20/2019 9:00 AM CST Cc: Chief Complaint Patient presents with [facility]-DEPRESSION HPI Blanka Ferrell is a 68 year old female who presents as a new patient to [facility] and for depression. She is accompanied by her . This patient's significant chronic medical conditions include DM2, HTN, hyperthyroidism, GERD, and she had a recent hospitalization for diverticulitis. The patient's specialists: Dr. Carter-Neuro, Dr. Gordon-GI (scheduled for colonoscopy and EGD next week), Dr. Burns-Cardiology, Dr. Good- Ophthalmology. Depression C/o depression symptoms for the past 7 years. Severity: Severe. Progression: Worsened x 3 weeks due to her 46yo daughter passing away suddenly. The patient' s depression symptoms include: Dysphoric mood, frequency crying spells, insomnia, anxiousness, insomnia, and anhedonia. Denies SI, HI, manic symptoms, delusions, or hallucinations. Past mental health diagnoses: Depression. Past treatments:Buspirone wasn't helpful and amitriptyline helps her symptoms somewhat. Ambien helps her to sleep.Psychosocial stressors: Loss of 2 children (3 weeks ago and 7 years ago), has to care for a blind daughter and her teenage sons. Allergies Blanka has No Known Allergies. Medications Current Outpatient Medications: amLODIPine 5 mg tablet, Take 5 mg by mouth 2 (two) times daily., Disp: , Rfl: carvediloL 25 mg tablet, Take 25 mg by mouth 2 (two) times daily with meals., Disp: , Rfl: cloNIDine 0.3 mg tablet, Take 0.3 mg by mouth 3 (three) times daily., Disp : , Rfl: ELIQUIS 5 mg tablet, Take 5 mg by mouth 2 (two) times daily., Disp: , Rfl: gabapentin 100 mg capsule, Take 100 mg by mouth 2 (two) times daily., Disp : , Rfl: insulin aspart U-100 (NOVOLOG FLEXPEN U-100 INSULIN) 100 unit/mL (3 mL) injection, inject under the skin., Disp: , Rfl: ondansetron 4 mg disintegrating tablet, Take 4 mg by mouth every 8 (eight) hours as needed for Nausea and Vomiting (N/V)., Disp: , Rfl: pantoprazole 40 mg EC tablet, Take 40 mg by mouth daily., Disp: , Rfl: proMETHazine 25 mg tablet, Take 12.5 mg by mouth 3 (three) times daily as needed for Nausea andVomiting (N/V)., Disp: , Rfl: sotalol 80 mg tablet, Take 80 mg by mouth every 12 (twelve) hours., Disp: , Rfl: zolpidem 10 mg tablet, Take 10 mg by mouth at bedtime. [facility], Disp: , Rfl: butorphanol 10 mg/mL nasal spray, USE 1 SPRAY IN ONE NOSTRIL EVERY 8 HOURS NEEDED FOR HEADACHE, Disp: 2.5 mL, Rfl: 0 AMITRIPTYLINE 25 mg tablet, TAKE 1 TABLET BY MOUTH EVERYDAY AT BEDTIME, Disp: 30 tablet, Rfl: 0 hydrALAZINE 50 mg tablet, Take 50 mg by mouth 3 (three) times daily with meals., Disp: , Rfl: Insulin Detemir 100 unit/mL (3 mL) injection, inject under the skin., Disp : , Rfl: methIMAzole 10 mg tablet, Take 10 mg by mouth daily., Disp: , Rfl: 6 Histories Past Medical History: Diagnosis Date Diabetic [...] file Gets together: Not on file Attends sikhism service: Not on file Active member of [...] and depression. The available medical records in [facility] were reviewed. Will request the patient's outside medical records for my review. Diagnoses and all orders for this visit: ICD-10-CM ICD-9-CM 1. Reactive depression F32.9 300.4 2. Anxiousness F41.9 300.00 3. Grief F43.21 309.0 Discussed the medication treatment options and we decided upon a trial of an SSRI. Start sertralineas noted. Continue amitriptyline. She was educated on serotonin syndrome and what symptoms to watch out for. Other potential side effects of this drug class/medication were reviewed and the patient voiced understanding. I advised against her using Ambien (bobby the 10mg dose) given the risks. The patient declines referral for counseling or [...] at a future visit. If applicable, the [facility] database was accessed to review any controlled substance prescription claims data. If the patient is taking prescribed medications, the [employer] prescription claims data in [employer] was reviewed to assess patient compliance with the medication treatment plan. Follow-up: Return in about 2 weeks (around 05/04/2019) for depression follow-up and f/u of other chronic conditions (30 min). Follow-up sooner if any problems or concerns. Scribe Poppy Bajwa , am scribing for, and in the presence of, Shanae Saunders MD who performed the services described here-in. Poppy Holman, April 20, 2019, 9:43 AM Physician Attestation Carl, Shanae Saunders MD, personally performed the services [...] Phone Address Type Group HUMANA - HUMANA [id number] 2019-Presen Medicare Adv MANAGED MEDICARE t FFS MEDICARE documented as of this encounter
--- OUTSIDE RECORDS SUMMARY | 2019-05-10 08:34 | XMS REPORT | Summary of Care ---
:1950 Author Organization [facility] Address [address] [place] [address] Care Team Providers Name Role Phone Shanae Saunders MD Primary Care Provider Reason for Visit Reason Comments Establish Care Encounter Details Date Type Department Care Team Description 04/20/2019 Office Visit [facility] Family Shanae Saunders Grief ( Primary Dx); Medicine - Kristin Noonan MD Reactive depression; [facility] [address] [place] [address] [address], [place] [address] [phone] Allergies No Known Allergiesdocumented as of this encounter (statuses as of 04/20/2019) Medications Medication Sig Dispensed Refills Start End Date Status Date methIMAzole 10 mg Take 10 mg by 6 Active tablet mouth daily. 9 pregabalin 300 mg Take 300 mg 0 Active capsule by mouth. hydrALAZINE 50 mg Take 50 mg by 0 Active tablet mouth 3 (three) times daily with meals. losartan-hydrochlorot Take by 0 Active hiazide 100-25 [...] (five) minutes as needed for Chest pain. Insulin Detemir 100 inject under 0 Active unit/mL (3 mL) the skin. injection insulin lispro, inject under 0 Active human, [...] Active mouth 2 (two) 0 times daily. chlordiazePOXIDE 10 TAKE 1 0 Active mg capsule CAPSULE BY 0 MOUTH 3 TIMES A DAY NEEDED cloNIDine 0.3 mg Take 0.3 mg 0 Active tablet by mouth 3 0 (three) times daily. ondansetron 4 mg DISSOLVE OVER 0 Active disintegrating tablet THE TONGUE 2 0 TIMES A DAY sotalol 80 mg tablet Take 80 mg by 0 Active mouth every 0 12 (twelve) hours. zolpidem 10 mg tablet Take 10 mg by 0 Active mouth at 0 bedtime. pantoprazole 40 mg EC Take 40 mg by 0 Active tablet mouth daily. 9 gabapentin 100 mg Take 100 mg 0 Active capsule by mouth 2 (two) times daily. carvediloL 25 mg Take 25 mg by 0 Active tablet mouth. proMETHazine 25 mg Take 12.5 mg 0 Active tablet by mouth every 6 (six) hours as needed for Nausea and Vomiting (N/V). insulin aspart U-100 inject under 0 Active (NOVOLOG FLEXPEN the skin. 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 [employer] last reviewed this educational content on 03/17/201719998213-0047 [employer]. [address] [place] [address]. All rights reserved. This information is not intended as a substitute for professional medical care. Always follow your healthcare professional's instructions. RY DELIVERER documented in this encounter Progress Notes Shanae Saunders MD - 04/20/2019 9:00 AM CST Cc: Chief Complaint Patient presents with [facility]-DEPRESSION HPI Blanka Ferrell is a 68 year old female who presents as a new patient to [facility] and for depression. She is accompanied [...] Allergies Blanka has No Known Allergies. Medications Outpatient Medications [...] Take 25 mg by mouth daily. 3 gsnshtt-tnhyebtyqvrhq-aajzudkk (EXCEDRIN MIGRAINE) 250-250-65 mg per tablet Take [...] at a future visit. If applicable, the [facility] database was accessed to review any controlled substance prescription claims data. If the patient is taking prescribed medications, the [employer] prescription claims data in [employer] was reviewed to assess patient compliance with the medication treatment plan. Follow-up: Return in about 2 weeks (around 05/04/2019) for depression follow-up and f/u of other chronic conditions (30 min). Follow-up sooner if any problems or concerns. Scribe Attestation Poppy Henry , am scribing for, and in the [...] Phone Address Type Group HUMANA - HUMANA [id number] 2019-[employer] Medicare Adv MANAGED MEDICARE t S MEDICARE documented as of this encounter
--- OUTSIDE RECORDS SUMMARY | 2019-05-10 08:34 | XMS REPORT | Summary of Care ---
:1950 Author Organization [facility] Address [address] [place] [address] Care Team Providers Name Role Phone Shanae Saunders MD Primary Care Provider Reason for Visit Reason Comments Assessment Encounter Details Date Type Department Care Team Description 05/08/[address] [facility] Family Medicine Shanae Saunders MD Assessment - [address] [address] [place] [address] Allergies No Known Allergiesdocumented as of this encounter (statuses as of 05/09/2019) Medications Medication Sig Dispensed Refills Start Date End Date Status methIMAzole 10 mg Take 10 mg by 6 06/07/2018 Active tablet mouth daily. hydrALAZINE 50 mg Take 50 mg by 0 Active tablet mouth 3 (three) times daily with meals. Insulin Detemir 100 inject under the 0 Active unit/mL (3 mL) skin. injection AMITRIPTYLINE 25 mg TAKE 1 TABLET BY 30 tablet 0 04/16/2019 Active tablet MOUTH EVERYDAY AT BEDTIME butorphanol 10 mg/mL USE 1 SPRAY IN ONE 2.5 mL 0 04/19/2019 Active nasal spray NOSTRIL EVERY 8 HOURS NEEDED FOR HEADACHE SERTraline 25 mg Take 1 tablet by 30 tablet 5 04/20/2019 Active tabletIndications: mouth daily. Reactive depression amLODIPine 5 mg tablet Take 5 mg by mouth 0 03/22/2019 Active 2 (two) times daily. ELIQUIS 5 mg tablet Take 5 mg by mouth 0 04/18/2019 Active 2 (two) times daily. cloNIDine 0.3 mg Take 0.3 mg by 0 04/11/2019 Active tablet mouth 3 (three) times daily. ondansetron 4 mg Take 4 mg by mouth 0 04/12/2019 Active disintegrating tablet every 8 (eight) hours as needed for Nausea and Vomiting (N/V). sotalol 80 mg tablet Take 80 mg by 0 03/01/2019 Active mouth every 12 (twelve) hours. zolpidem 10 mg tablet Take 10 mg by 0 04/15/2019 Active mouth at bedtime. I ADVISE AGAINST TAKING THIS MEDICATION DUE TO THE RISKS. [facility] pantoprazole 40 mg EC Take 40 mg by 0 01/30/2019 Active tablet mouth daily. gabapentin 100 mg Take 100 mg by 0 Active capsule mouth 2 (two) times daily. carvediloL 25 mg Take 25 mg by 0 Active tablet mouth 2 (two) times daily with meals. proMETHazine 25 mg Take 12.5 mg by 0 Active tablet mouth 3 (three) times daily as needed for Nausea and Vomiting (N/V). insulin aspart U-100 inject under the 0 Active (NOVOLOG FLEXPEN U-100 skin. INSULIN) 100 unit/mL (3 mL) injection documented as of this encounter (statuses as of 05/09/2019) Active Problems Problem Noted Date Grief 04/20/2019 Reactive depression 04/20/2019 documented as of this encounter (statuses as of 05/09/2019) Social History Tobacco Use Types Packs/Day Years [...] Phone Address Type Group HUMANA - HUMANA [id number] 2019-[employer] Medicare Adv MANAGED MEDICARE t FFS MEDICARE documented as of this encounter
--- OUTSIDE RECORDS SUMMARY | 2019-05-10 08:34 | XMS REPORT | Summary of Care ---
:1950 Author Organization [facility] Address [address] [place] [address] Care Team Providers Name Role Phone Shanae Saunders MD Primary Care Provider Reason for Visit Reason Comments Establish Care Encounter Details Date Type Department Care Team Description 04/20/2019 Office Visit [facility] Family Shanae Saunders Grief ( Primary Dx); Medicine - Kristin Noonan MD Reactive depression; [facility] [address] [facility] [address] [facility] [address], [place] [address] [phone] Allergies No Known Allergiesdocumented as of this [...] 104.3 kg (230 lb) 04/20/2019 9:34 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 [employer] last reviewed this educational content on 03/17/201719990220-3074 [employer]. [address] [place] [address]. All rights reserved. This information is not intended as a substitute for professional medical care. Always follow your healthcare professional's instructions. OMER SUPPORT EXECUTIVE documented in this encounter Progress Notes Shanae Saunders MD - 04/20/2019 9:00 AM CST Cc: Chief Complaint Patient presents with [facility]-DEPRESSION HPI Blanka Ferrell is a 68 year [...] Take 25 mg by mouth daily. 3 iywiitq-cctowvthbqylz-otgcfvra (EXCEDRIN MIGRAINE) 250-250-65 mg per tablet Take [...] file Gets together: Not on file Attends adventism service: Not on file Active member of [...] and depression. The available medical records in [facility] were reviewed. Will request the patient's [...] at a future visit. If applicable, the [facility] database was accessed to review any controlled substance prescription claims data. If the patient is taking prescribed medications, the [employer] prescription claims data in [facility] was reviewed to assess patient compliance [...] Phone Address Type Group HUMANA - HUMANA [id number] 2019-Presen Medicare Adv MANAGED MEDICARE t FFS MEDICARE documented as of this encounter
--- OUTSIDE RECORDS SUMMARY | 2019-05-10 08:35 | XMS REPORT | Summary of Care ---
:1950 Author Organization [facility] Address [address] [place] [address] Care Team Providers Name Role Phone Shanae Saunders MD Primary Care Provider Reason for Visit Reason Comments Notification pt to be scheduled to urgent care Appointment urgent care Encounter Details Date Type Department Care Team Description 05/09/2019 Telephone [facility] Urgent Tamara Durbin, Notification (pt to be Care, Powers ANP scheduled to urgent [address]); Appointment [address] [place], [place] (urgent care) [address] [address] [place], [place] [phone] Allergies No Known Allergiesdocumented as of this [...] TAKING THIS MEDICATION DUE TO THE RISKS. [facility] pantoprazole 40 mg EC Take 40 mg [...] skin. INSULIN) 100 unit/mL (3 mL) injection sulfamethoxazole-trime Take 1 tablet by 20 tablet 0 05/09/2019 Active thoprim 800-160 mg per mouth 2 (two) tabletIndications: times daily. Great toe pain, right, IDDM (insulin dependent diabetes mellitus) documented as of this encounter (statuses as [...] Phone Address Type Group HUMANA - HUMANA [id number] 2019-Presen Medicare Adv MANAGED MEDICARE t FFS MEDICARE documented as of this encounter
--- OUTSIDE RECORDS SUMMARY | 2019-05-10 08:35 | XMS REPORT | Summary of Care ---
:1950 Author Organization [facility] Address [address] [place] [address] Care Team Providers Name Role Phone Shanae Saunders MD Primary Care Provider Reason for Visit Reason Comments Assessment TRIAGE Encounter Details Date Type Department Care Team Description 05/09/2019 Telephone [facility] Family Shanae Saunders, Assessment ( TRIAGE) Medicine - Kristin CAMPBELL [facility] [place] [address] [place] [address] [place], [place] [phone] Allergies No Known Allergiesdocumented as of this [...] TAKING THIS MEDICATION DUE TO THE RISKS. [facility] pantoprazole 40 mg EC Take 40 [...] Treatment Date Type Specialty Care Team Description 05/09/2019 Telemedicine Visit Family Medicine Care, Provider 6 Adult Urgent Health Maintenance Due Date Last Done Comments [...] Phone Address Type Group HUMANA - HUMANA [id number] 2019-[facility] Medicare Adv MANAGED MEDICARE t FFS MEDICARE documented as of this encounter
[2019-05-10] MEDS ORDERED: cloNIDine HCL 0.1 MG TAB ONE (08:58)
[2019-05-10] MEDS ORDERED: HYDROCODONE/APAP 7.5/325 MG TAB ONE (09:04)
--- NOTE | 2019-05-10 09:16 | RAD REPORT ---
EXAM DESCRIPTION: CT - Head Brain Wo Cont - 05/10/2019 9:01 am CLINICAL HISTORY: uncontrolled hypertension;Headache COMPARISON: Head Brain Wo Cont dated 02/26/2019; HEAD BRAIN W O CONTRAST dated 09/26/2011 TECHNIQUE: Axial 5 mm thick images of the head were obtained without IV contrast. All CT scans are performed using dose optimization technique as appropriate and may include automated exposure control or mA/KV adjustment according to patient size. FINDINGS: No intracranial hemorrhage, mass, edema or shift of mid-line structures. No acute infarcti on changes seen. No cortical edema or sulcal effacement. No significant atrophy changes are present. Patient does appear to have a few punctate areas of chronic ischemic change and possible old lacune o r infarction in the right basal ganglia. There is focal encephalomalacia in the lateral aspect of the left cerebellar hemisphere. Ventricles are normal. Arterial and prominent physiologic calcifications are present. Empty sella configuration is present dating back to at least 2011. No acute intracrania l finding identified. Mastoid air cells and visualized portions of the paranasal sinuses are clear. No acute bony findings. IMPRESSION: No mass, hemorrhage or acute intracranial finding. Intracranial findings are stable from the February 26 study.
[2019-05-10 09:43] LABS: Absolute Lymphocytes (CBC) 1.2 K/uL (0.7-4.9); Basophils % 0.3 % (0-1.3); Hematocrit 39.8 % (36.0-45.0); Lymphocytes % 23.6 % (15.3-44.8); MPV 8.5 fL (7.6-11.3); RBC Red Blood Cell Count 4.85 M/uL (3.86-4.86)
--- NOTE | 2019-05-10 09:55 | RAD REPORT ---
EXAM DESCRIPTION: RAD - Foot Right 3 View - 05/10/2019 9:10 am CLINICAL HISTORY: PAIN COMPARISON: No comparisons FINDINGS: Patient has a large spur at the Achilles attachment site. No plantar spur. Mild degenerati ve changes are present in the tarsal bones. Fracture or bone destruction not identifiable. No metatarsal or phalanges fracture identified. All toes are in a extended position at the MTP joints . This is most pronounced at the fifth MTP joint where there is an approximately 90 degrees angle bet ween the shaft of the metatarsal and the first proximal phalanx. The second-fourth proximal phalanges show a less pronounced angulation. Angulation at the first MTP joint is approximately 45 degrees. No bone destructive change seen. Soft tissues the dorsum of the foot appear edematous but no air or f oreign body seen. IMPRESSION: Soft tissue swelling is evident over the dorsum of the foot but no air or foreign body s een. Bony degenerative changes are present as detailed. No acute destructive finding seen. Patient has all MTP joints in an extended position presumed to be chronic.
[2019-05-10 10:01] LABS: ALT/SGPT 17 U/L (12-78); AST/SGOT 10 U/L (15-37); Alkaline Phosphatase 166 U/L (45-117); BUN Blood Urea Nitrogen 14 mg/dL (7-18); Bicarbonate 27 mmol/L (21-32); Bilirubin Direct < 0.1 mg/dL (0-0.2); Bilirubin Total 0.3 mg/dL (0.2-1.0); Glucose Level 255 mg/dL (74-106); Magnesium 1.7 mg/dL (1.8-2.4); Potassium 3.8 mmol/L (3.5-5.1); Protein, Total 7.5 g/dL (6.4-8.2); Sodium Level 138 mmol/L (136-145)
[2019-05-10] MEDS ORDERED: MAGNESIUM OXIDE 400 MG TAB ONE (10:31)
--- NOTE | 2019-05-10 10:34 | ER ---
Nurse's Notes [facility] Name: Blanka Ferrell Age: 68 yrs Sex: Female : 1950 Arrival Date: 05/10/2019 Time: 08:33 Bed 8 Private MD: Shaista Campos C Diagnosis: Headache;Hypertensive heart disease;Diabetes mellitus due to underlying condition with hyperglycemia;Pain in right foot Presentation: 05/09 08:44 Chief complaint: Patient states: stubbed her right great toe 2 weeks ago, has had iw swelling and bruising to area since then, also has migraine headache, is out of her medication til Tuesday. Coronavirus screen: Patient denies fever greater than 100.4F, cough, shortness of breath, or difficulty breathing. Proceed with normal triage process. Ebola Screen: Patient negative for fever greater than or equal to 101.5 degrees Fahrenheit, and additional compatible Ebola Virus Disease symptoms Patient denies exposure to infectious person. Patient denies travel to an Ebola-affected area in the 21 days before illness onset. No symptoms or risks identified at this time. Initial Sepsis Screen: Does the patient meet any 2 criteria? No. Patient's initial sepsis screen is negative. Does the patient have a suspected source of infection? No. Patient's initial sepsis screen is negative. Risk Assessment: Do you want to hurt yourself or someone else? Patient reports no desire to harm self or others. 08:44 Method Of Arrival: Wheelchair iw 08:44 Acuity: THALIA 3 iw Historical: - Allergies: 08:46 Imitrex; iw - PMHx: 08:46 Anxiety; Diabetes - IDDM; Hypertension; Migraines; Thyroid problem; iw - PSHx: 08:46 Hysterectomy; Cholecystectomy; iw Screenin:52 Abuse screen: Denies threats or abuse. Nutritional screening: No deficits noted. em Tuberculosis screening: No symptoms or risk factors identified. Fall Risk None identified. Assessment: 08:50 General: Appears in no apparent distress. comfortable, Behavior is calm, cooperative, em Denies fever. Pain: Complains of pain in right foot and forehead. Neuro: Level of Consciousness is awake, alert, obeys commands, Oriented to person, place, time, situation, Appropriate for age [employer] are equal bilaterally Moves all extremities. Gait is steady, Reports headache Denies weakness dizziness. Cardiovascular: Denies chest pain, Capillary refill < 3 seconds Patient's skin is warm and dry. Chest pain is denied. Respiratory: Airway is patent Respiratory effort is even, unlabored, Respiratory pattern is regular, symmetrical. GI: Abdomen is round non-distended, Patient currently denies nausea, vomiting. Derm: Skin is intact, is healthy with good turgor, Skin is pink, warm \T\ dry. Musculoskeletal: Capillary refill < 3 seconds, Range of motion: intact in all extremities. 11:00 Reassessment: Patient appears in no apparent distress at this time. Patient and/or em family updated on plan of care and expected duration. Pain level reassessed. Patient is alert, oriented x 3, equal unlabored respirations, skin warm/dry/pink. Patient states feeling better. Patient states symptoms have improved. Vital Signs: 08:50 BP 198 / 115; Pulse 85; Resp 18; Temp 98.4(O); Pulse Ox 100% on R/A; Pain 8/10; em 10:15 BP 174 / 96; Pulse 77; Resp 18; Pulse Ox 97% on R/A; Pain 7/10; em 11:00 BP 166 / 88; Pulse 76; Resp 18; Pulse Ox 99% on R/A; Pain 5/10; em ED Course: 08:33 Patient arrived in ED. ag5 08:33 Shaista Campos MD is Private Physician. ag5 08:36 Stanley Schroeder, RN is Primary Nurse. em 08:37 Philipp Rivera PA is PHCP. cp 08:37 Juan A Miller MD is Attending Physician. cp 08:46 Triage completed. iw 08:46 Arm band placed on. iw 08:52 Patient has correct armband on for positive identification. Bed in low position. Call em light in reach. Pulse ox on. NIBP on. 09:04 CT Head Brain wo Cont In Process Unspecified. EDMS 09:14 XRAY Foot RIGHT 3 View In Process Unspecified. EDMS 09:37 Initial lab(s) drawn, by me, sent to lab. Inserted saline lock: 22 gauge in right em1 forearm, using aseptic technique. Blood collected. 10:29 Shaista Campos MD is Referral Physician. cp 11:11 No provider procedures requiring assistance completed. IV discontinued, intact, em bleeding controlled, No redness/swelling at site. Pressure dressing applied. Administered Medications: 08:56 Drug: cloNIDine 0.2 mg Route: PO; em 10:10 Follow up: Response: No adverse reaction; Blood pressure is lowered em 09:26 Drug: Hydrocodone-Acetaminophen (7.5 mg-325 mg) 1 tabs Route: PO; bp 10:15 Follow up: Response: No adverse reaction; Pain is unchanged, physician notified em 10:29 CANCELLED (Physician Discretion): Reglan 10 mg IVP once; over 1 to 2 minutes cp 10:38 Drug: Magnesium 400 mg Route: PO; em 11:12 Follow up: Response: No adverse reaction em 10:38 Drug: TORadol - Ketorolac 15 mg Route: IVP; Site: right forearm; em 11:12 Follow up: Response: No adverse reaction; Marked relief of symptoms; Pain is decreased em 10:40 Drug: Decadron - Dexamethasone 10 mg Route: IVP; Site: right forearm; em 11:12 Follow up: Response: No adverse reaction em 10:42 Drug: morphine 2 mg Route: IVP; Site: right forearm; em 11:12 Follow up: Response: No adverse reaction; Marked relief of symptoms; Pain is decreased; em RASS: Alert and Calm (0) Outcome: 10:32 Discharge ordered by MD. cp 11:11 Discharged to home via wheelchair. em 11:11 Condition: good 11:11 Discharge instructions given to patient, Instructed on discharge instructions, follow up and referral plans. medication usage, Demonstrated understanding of instructions, follow-up care, medications, Prescriptions given X 1. 11:13 Patient left the ED. em Signatures: Dispatcher [employer] Stanley Beavers RN RN em Williams, Irene, RN RN iw Martinez, Eric em1 Philipp Rivera PA PA cp Peltier, Brian, RN RN Oliva Freed ag5
--- NOTE | 2019-05-10 10:35 | EDPHYS ---
Physician Documentation [facility] Name: Blanka Ferrell Age: 68 yrs Sex: Female : 1950 Arrival Date: 05/10/2019 Time: 08:33 Bed 8 Private MD: Shaista Campos C ED Physician Juan A Miller HPI: 05/09 08:51 This 68 yrs old Black Female presents to ER via Wheelchair with complaints of Foot cp Pain, Headache. 08:51 The patient presents with pain, that is acute, swelling, tenderness. The complaints cp affect the right foot. Context: the patient can fully bear weight, the patient is able to ambulate. Onset: The symptoms/episode began/occurred this morning. 08:53 The patient complains of pain to the forehead. The patient describes the headache as cp aching. Onset: The symptoms/episode began/occurred 2 day(s) ago. Associated signs and symptoms: Pertinent negatives: fever, neck stiffness, sinus congestion, sinus tenderness, vision loss, vomiting, weakness. Headache History: Other history of migraines. Historical: - Allergies: 08:46 Imitrex; iw - PMHx: 08:46 Anxiety; Diabetes - IDDM; Hypertension; Migraines; Thyroid problem; iw - PSHx: 08:46 Hysterectomy; Cholecystectomy; iw ROS: 08:55 Constitutional: Negative for body aches, chills, fever, poor PO intake. cp 08:55 Eyes: Negative for injury, pain, redness, and discharge. cp 08:55 Cardiovascular: Negative for chest pain, edema, palpitations. cp 08:55 ENT: Negative for drainage from ear(s), ear pain, sore throat, difficulty swallowing, cp difficulty handling secretions. 08:55 Respiratory: Negative for cough, shortness of breath, wheezing. 08:55 Abdomen/GI: Negative for abdominal pain, nausea, vomiting, and diarrhea. 08:55 MS/extremity: Positive for pain, swelling, tenderness, of the right foot. 08:55 Neuro: Positive for headache, Negative for altered mental status, numbness, syncope, weakness. 08:55 All other systems are negative. Exam: 09:03 Head/Face: Normocephalic, atraumatic. cp 09:03 Constitutional: The patient appears in no acute distress, alert, awake, non-diaphoretic, non-toxic, well developed, well nourished. 09:03 Eyes: Periorbital structures: appear normal, Pupils: equal, round, and reactive to light and accomodation, Extraocular movements: intact throughout, Conjunctiva: normal, no exudate, no injection, Sclera: no appreciated abnormality, Lids and lashes: appear normal, bilaterally. 09:03 ENT: External ear(s): are unremarkable, Nose: is normal, Mouth: Lips: moist, Oral mucosa: pink and intact, moist, Posterior pharynx: is normal, airway is patent, no erythema, no exudate. 09:03 Neck: ROM/movement: is normal, is supple, without pain, no range of motions limitations, no nuchal rigidity. 09:03 Chest/axilla: Inspection: normal. 09:03 Cardiovascular: Rate: normal, Rhythm: regular. 09:03 Respiratory: the patient does not display signs of respiratory distress, Respirations: normal, no use of accessory muscles, no retractions, labored breathing, is not present, Breath sounds: are clear throughout, no decreased breath sounds, no wheezing. 09:03 Abdomen/GI: Inspection: abdomen appears normal, Bowel sounds: active, all quadrants, Palpation: abdomen is soft and non-tender, in all quadrants. 09:03 Musculoskeletal/extremity: Extremities: grossly normal except: noted in the right foot: pain, swelling, tenderness, There is no evidence of decreased ROM, deformity, Perfusion: the extremity is normally perfused throughout, Sensation intact. 09:03 Skin: cellulitis, is not appreciated, no rash present. cp 09:03 Neuro: Orientation: to person, place \T\ time. Mentation: is normal, Motor: moves all cp fours, strength is normal, Sensation: is normal. Vital Signs: 08:50 BP 198 / 115; Pulse 85; Resp 18; Temp 98.4(O); Pulse Ox 100% on R/A; Pain 8/10; em 10:15 BP 174 / 96; Pulse 77; Resp 18; Pulse Ox 97% on R/A; Pain 7/10; em 11:00 BP 166 / 88; Pulse 76; Resp 18; Pulse Ox 99% on R/A; Pain 5/10; em MDM: 08:48 Patient medically screened. cp 09:00 Differential diagnosis: closed fracture, hyponatremia, intracerebral hemorrhage, cp meningitis, migraine, subdural hematoma, temporal arteritis, tension headache, gout, cellulitis. 10:31 Data reviewed: vital signs, nurses notes, lab test result(s), radiologic studies, CT cp scan, plain films. 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 Response to treatment: the patient's symptoms have markedly improved after treatment, VSS. Blood pressure and headache improved, and as a result, I will discharge patient. 10:40 ED course: according to [place] prescription monitoring website, patient has narcotic cp score of 531 and sedative score of 611. Will not prescribe narcotics for pain control at this time. Patient instructed to f/u with primary physician. 05/09 08:51 Order name: Basic Metabolic Panel; Complete Time: 10:09 05/09 10:09 Interpretation: Normal except: GLUC 255; GFR 87. 05/09 08:51 Order name: CBC with Diff; Complete Time: 09:55 05/09 09:55 Interpretation: Normal except: MCV 82.0; MCH 26.9; RDW 16.0. 05/09 08:51 Order name: CT Head Brain wo Cont; Complete Time: 09:28 05/09 09:28 Interpretation: Report reviewed. 05/09 08:51 Order name: LFT's; Complete Time: 10:09 05/09 10:09 Interpretation: Normal except: AST 10; ALK 166; ALB 3.0; GLOB 4.5; A/G 0.7. 05/09 08:51 Order name: Magnesium; Complete Time: 10:09 05/09 10:09 Interpretation: Abnormal: MG 1.7. 05/09 09:07 Order name: Uric Acid; Complete Time: 10:09 05/09 08:51 Order name: XRAY Foot RIGHT 3 View; Complete Time: 10:09 05/09 08:51 Order name: Cardiac monitoring; Complete Time: 08:52 cp 05/09 08:51 Order name: IV Saline Lock; Complete Time: 09:37 cp 05/09 08:51 Order name: Labs collected and sent; Complete Time: 08:52 cp 05/09 08:51 Order name: O2 Per Protocol; Complete Time: 08:51 cp 05/09 08:51 Order name: O2 Sat Monitoring; Complete Time: 08:51 cp Administered Medications: 08:56 Drug: cloNIDine 0.2 mg Route: PO; em 10:10 Follow up: Response: No adverse reaction; Blood pressure is lowered em 09:26 Drug: Hydrocodone-Acetaminophen (7.5 mg-325 mg) 1 tabs Route: PO; bp 10:15 Follow up: Response: No adverse reaction; Pain is unchanged, physician notified em 10:29 CANCELLED (Physician Discretion): Reglan 10 mg IVP once; over 1 to 2 minutes cp 10:38 Drug: Magnesium 400 mg Route: PO; em 11:12 Follow up: Response: No adverse reaction em 10:38 Drug: TORadol - Ketorolac 15 mg Route: IVP; Site: right forearm; em 11:12 Follow up: Response: No adverse reaction; Marked relief of symptoms; Pain is decreased em 10:40 Drug: Decadron - Dexamethasone 10 mg Route: IVP; Site: right forearm; em 11:12 Follow up: Response: No adverse reaction em 10:42 Drug: morphine 2 mg Route: IVP; Site: right forearm; em 11:12 Follow up: Response: No adverse reaction; Marked relief of symptoms; Pain is decreased; em RASS: Alert and Calm (0) Disposition: 05/10 07:05 Co-signature as Attending Physician, Juan A Miller MD I agree with the assessment and kdr plan of care. Disposition: 05/10/19 10:32 Discharged to Home. Impression: Headache, Hypertensive heart disease, Diabetes mellitus due to underlying condition with hyperglycemia, Pain in right foot. - Condition is Stable. - Discharge Instructions: Migraine Headache, Hypertension, Blood Glucose Monitoring, Adult, Diabetes Mellitus and Food, Managing Your Hypertension, Foot Pain. - Prescriptions for Diclofenac Sodium 75 mg Oral Tablet, Delayed Release (E.C.) - take 1 tablet by ORAL route 2 times per day As needed for foot pain; 20 tablet. - Medication Reconciliation Form, Thank You Letter, Antibiotic Education, Prescription Opioid Use form. - Follow up: Shaista Campos MD; When: 2 - 3 days. - Problem is new. - Symptoms have improved. Signatures: Dispatcher [employer] Juan A Barrow MD MD kdr Stanley Schroeder, RE RN Macey Luna RN RN Philipp Escamilla, PA PA cp Chris Schreiber RN RN bp Corrections: (The following items were deleted from the chart) 05/09 10:29 10:27 Reglan 10 mg IVP once; over 1 to 2 minutes ordered. cp cp 11:13 10:32 05/10/2019 10:32 Discharged to Home. Impression: Headache; Hypertensive heart em disease; Diabetes mellitus due to underlying condition with hyperglycemia; Pain in right foot. Condition is Stable. Forms are Medication Reconciliation Form, Thank You Letter, Antibiotic Education, Prescription Opioid Use. Follow up: Shaista Campos; When: 2 - 3 days. Problem is new. Symptoms have improved. cp
[2019-05-10] MEDS ORDERED: MORPHINE 2 MG/ML SYR ONE (10:38)
[2019-05-10] MEDS ORDERED: dexAMETHasone 10 MG/ML VIAL ONE (10:38)
[2019-05-10] MEDS ORDERED: KETOROLAC 30 MG/ML INJ ONE (10:38)
[2019-05-10 12:10] VITALS: TEMP 98.4
[2019-05-10 12:11] VITALS: BP 166/88; O2SAT 99
== END 2019-05-10 11:13 | disposition home or self-care (01) ==
LOC: ER 08:29
DX: I11.9 Hypertensive heart disease without heart failure (principal); R51 Headache; E11.65 Type 2 diabetes mellitus with hyperglycemia; I10 Essential (primary) hypertension; Z88.8 Allergy status to other drugs, medicaments and biological substances
CPT/HCPCS: 85025; 80048; 36415; 83735; 80076; 84550; 70450; 73630; 96375; 96374; 99284; J1100; J2270

== ENCOUNTER 2021-03-07 16:48 | Emergency (ER) | payer OTHER ==
--- OUTSIDE RECORDS SUMMARY | 2021-03-07 17:01 | XMS REPORT | Continuity of Care Document ---
:1950 Author Organization [facility] t Address [facility] [address] [place] [address] Care Team Providers Name Role Phone Tiffany Carter MD Attending Clinician Alissa BREWER Attending Clinician Unavailable Doctor Unassigned, Name Attending Clinician Unavailable ADRIEN Attending Clinician Unavailable Shaista Saunders MD Attending Clinician TIFFANY CARTER Attending Clinician Unavailable TIFFANY CARTER Attending Clinician Unavailable Moises BOWERS Attending Clinician Unavailable Moises Gary Attending Clinician Shaista SAUNDERS Attending Clinician Unavailable Payers Payer Name Policy Type Policy Number Effective Date Expiration Date S ource Problems Condition Condition Condition Status Onset Resolution Last Treating Co mments Source Name Details Category Date Date Treatment Clinician Date Grief Grief Disease Active 2019-0 [facility] 3[facility] ity of 00:00: [address] Reactive Reactive Disease Active 0 [facility] depression depression 3-06 it y of 00:00: [address] No known No known Disease Unive rs active active ity of problems problems [facility] Allergies, Adverse Reactions, Alerts Allergy Allergy Status Severity Reaction(s) Onset Inactive Treating Comm ents Source Name Type Date Date Clinician NO KNOWN Drug Active Univers ALLERGIE Class ity of S [facility] Social History Social Habit Start Date Stop Date Quantity Comments Source Exposure to Not sure [facility] SARS-CoV-2 [facility] (event) Branch Alcohol intake 2019-04-20 2019-04-20 Current University of 00:00:00 00:00:00 non-drinker of [facility] alcohol [place] (finding) Tobacco use and 2019-04-20 2019-04-20 Never used Universit y of exposure 00:00:00 00:00:00 [facility] [birth year] Universit [facility] of 00:00:00 00:00:00 [facility] Smoking Status Start Date Stop Date Source Never smoker [facility] Medications Ordered Filled Start Stop Current Ordering Indication Dosage Frequency Signature Comments Components Source Medication Medication Date Date Medication? Clinician (SIG) Name Name AMITRIPTYLI 0 Yes TAKE 1 [facility] [place] 25 mg 5-05 TABLET BY ity of tablet 00:00: MOUTH [place] [address] EVERYDAY Medical AT BEDTIME Branch AMITRIPTYLI 2020-0 Yes TAKE 1 [facility] [place] 25 mg 5-05 TABLET BY ity of tablet 00:00: MOUTH [place] EVERYDAY Medical AT BEDTIME Branch butorphanol 2020-0 Yes 2745 INHALE ONE Univers 10 mg/mL 3-05 SPRAY IN ity of nasal spray 00:00: ONE [place] NOSTRIL Medical EVERY 8 Branch HOURS NEEDED FOR HEADACHE Indication s: chronic pain, headache butorphanol 2021-0 Yes 2745 INHALE ONE Univers 10 mg/mL 3-05 SPRAY IN ity of nasal spray 00:00: ONE [place] NOSTRIL Medical EVERY 8 Branch HOURS NEEDED FOR HEADACHE Indication s: chronic pain, headache butorphanol 2021-0 Yes 2745 INHALE ONE Univers 10 mg/mL 3-05 SPRAY IN ity of nasal spray 00:00: ONE [place] NOSTRIL Medical EVERY 8 Branch HOURS NEEDED FOR HEADACHE Indication s: chronic pain, headache butorphanol 2021-0 Yes 2745 USE 1 Unive [facility] 10 mg/mL 2-05 SPRAY IN ity of nasal spray 00:00: ONE [place] [address] NOSTRIL Medical EVERY 8 Branch HOURS NEEDED FOR HEADACHE Indication s: acute pain, chronic pain, Headache butorphanol 2021-0 Yes 2745 USE 1 Unive rs 10 mg/mL 2-05 SPRAY IN ity of nasal spray 00:00: ONE [place] [address] NOSTRIL Medical EVERY 8 Branch HOURS NEEDED FOR HEADACHE Indication s: acute pain, chronic pain, Headache butorphanol 2021-0 Yes 2745 USE 1 Unive [facility] 10 mg/mL 2-05 SPRAY IN ity of nasal spray 00:00: ONE [place] [address] NOSTRIL Medical EVERY 8 Branch HOURS NEEDED FOR HEADACHE Indication s: acute pain, chronic pain, Headache butorphanol 2021-0 Yes 2745 USE 1 Unive [facility] 10 mg/mL 2-05 SPRAY IN ity of nasal spray 00:00: ONE [place] NOSTR[facility] Medical EVERY 8 Branch HOURS NEEDED FOR HEADACHE Indication s: acute pain, chronic pain, Headache butorphanol 2021-0 Yes 2745 USE 1 Unive [facility] 10 mg/mL 2-05 SPRAY IN ity of nasal spray 00:00: ONE [place] [facility] Medical EVERY 8 Branch HOURS NEEDED FOR HEADACHE Indication s: acute pain, chronic pain, Headache butorphanol 2021-0 Yes 2745 USE 1 [facility]ive [facility] 10 mg/mL 2-05 SPRAY IN ity of nasal spray 00:00: ONE [place] NO[facility] Medical EVERY 8 Branch HOURS NEEDED FOR HEADACHE Indication s: acute pain, chronic pain, Headache butorphanol 2021-0 Yes 2745 USE 1 [facility] 10 mg/mL 2-05 SPRAY IN ity of nasal spray 00:00: ONE [place] [facility] Medical EVERY 8 Branch HOURS NEEDED FOR HEADACHE Indication s: acute pain, chronic pain, Headache butorphanol 2021-0 Yes 2745 USE 1 Unive [facility] 10 mg/mL 2-05 SPRAY IN ity of nasal spray 00:00: ONE [place] NO[facility] Medical EVERY 8 Branch HOURS NEEDED FOR HEADACHE Indication s: acute pain, chronic pain, Headache butorphanol 2021-0 Yes 2745 USE 1 Unive [facility] 10 mg/mL 2-05 SPRAY IN ity of nasal spray 00:00: ONE [place] [facility] Medical EVERY 8 Branch HOURS NEEDED FOR HEADACHE Indication s: acute pain, chronic pain, Headache butorphanol 2021-0 Yes 2745 USE 1 Unive rs 10 mg/mL 2-05 SPRAY IN ity of nasal spray 00:00: ONE [place] [address] NOSTRIL Medical EVERY 8 Branch HOURS NEEDED FOR HEADACHE Indication s: acute pain, chronic pain, Headache butorphanol 2021-0 Yes 2745 USE 1 [facility] 10 mg/mL 2-05 SPRAY IN ity of nasal spray 00:00: ONE [place] [address] NOSTRIL Medical EVERY 8 Branch HOURS NEEDED FOR HEADACHE Indication s: acute pain, chronic pain, Headache butorphanol 2021-0 2021- No 2745 USE 1 Univ ers 10 mg/mL 2-05 03-05 SPRAY IN ity of nasal spray 00:00: 00:00 [facility] 00 :00 NOSTRIL Medical EVERY 8 Branch HOURS NEEDED FOR HEADACHE Indication s: acute pain, chronic pain, Headache butorphanol 2021-0 2021- No 2745 USE 1 Univ ers 10 mg/mL 2-05 03-05 SPRAY IN ity of nasal spray 00:00: 00:00 [facility] 00 :00 NOSTRIL Medical EVERY 8 Branch HOURS NEEDED FOR HEADACHE Indication s: acute pain, chronic pain, Headache butorphanol 202-0 Yes 2745 USE 1 Unive rs 10 mg/mL 1-05 SPRAY IN ity of nasal spray 00:00: ONE [place] NOSTRIL Medical EVERY 8 Branch HOURS NEEDED FOR HEADACHE Indication s: acute pain, chronic pain, Headache butorphanol 202-0 Yes 2745 USE 1 Unive rs 10 mg/mL 1-05 SPRAY IN ity of nasal spray 00:00: ONE [place] NOSTRIL Medical EVERY 8 Branch HOURS NEEDED FOR HEADACHE Indication s: acute pain, chronic pain, Headache butorphanol 202-0 Yes 2745 USE 1 Unive rs 10 mg/mL 1-05 SPRAY IN ity of nasal spray 00:00: ONE [place] [address] NOSTRIL Medical EVERY 8 Branch HOURS NEEDED FOR HEADACHE Indication s: acute pain, chronic pain, Headache butorphanol 2021-0 2021- No 2745 USE 1 Univ ers 10 mg/mL 1-05 02-05 SPRAY IN ity of nasal spray 00:00: 00:00 [facility] 00 :00 NOSTRIL Medical EVERY 8 Branch HOURS NEEDED FOR HEADACHE Indication s: acute pain, chronic pain, Headache butorphanol 2020-1 Yes 2745 USE 1 Unive rs 10 mg/mL 2-07 SPRAY IN ity of nasal spray 00:00: ONE [place] [address] NOSTRIL Medical EVERY 8 Branch HOURS NEEDED FOR HEADACHE Indication s: acute pain, chronic pain, Headache butorphanol 2020-1 Yes 2745 USE 1 Unive rs 10 mg/mL 2-07 SPRAY IN ity of nasal spray 00:00: ONE [place] [address] NOSTRIL Medical EVERY 8 Branch HOURS NEEDED FOR HEADACHE Indication s: acute pain, chronic pain, Headache butorphanol 2020-1 2021- No 2745 USE 1 Univ ers 10 mg/mL 2-07 01-05 SPRAY IN ity of nasal spray 00:00: 00:00 [facility] 00 :00 NOSTRIL Medical EVERY 8 Branch HOURS NEEDED FOR HEADACHE Indication s: acute pain, chronic pain, Headache AMITRIPTYLI 2020-1 Yes TAKE 1 [facility] [place] 25 mg 1-10 TABLET BY ity of tablet 00:00: MOUTH EVERYDAY Medical AT BEDTIME Branch AMITRIPTYLI 2019- Yes TAKE 1 [facility] [place] 25 mg 1-10 TABLET BY ity of tablet 00:00: MOUTH EVERYDAY Medical AT BEDTIME Branch AMITRIPTYLI 2019- Yes TAKE 1 [facility] [place] 25 mg 1-10 TABLET BY ity of tablet 00:00: MOUTH EVERYDAY Medical AT BEDTIME Branch AMITRIPTYLI 2019- Yes TAKE 1 [facility] [place] 25 mg 1-10 TABLET BY ity of tablet 00:00: MOUTH EVERYDAY Medical AT BEDTIME Branch AMITRIPTYLI 2019- Yes TAKE 1 [facility] [place] 25 mg 1-10 TABLET BY ity of tablet 00:00: MOUTH EVERYDAY Medical AT BEDTIME Branch AMITRIPTYLI 2019- Yes TAKE 1 [facility] [place] 25 mg 1-10 TABLET BY ity of tablet 00:00: MOUTH EVERYDAY Medical AT BEDTIME Branch AMITRIPTYLI 2019- Yes TAKE 1 [facility] [place] 25 mg 1-10 TABLET BY ity of tablet 00:00: MOUTH EVERYDAY Medical AT BEDTIME Branch AMITRIPTYLI 2019- Yes TAKE 1 [facility] [place] 25 mg 1-10 TABLET BY ity of tablet 00:00: MOUTH EVERYDAY Medical AT BEDTIME Branch AMITRIPTYLI 2019- Yes TAKE 1 [facility] [place] 25 mg 1-10 TABLET BY ity of tablet 00:00: MOUTH EVERYDAY Medical AT BEDTIME Branch AMITRIPTYLI 2019- Yes TAKE 1 [facility] 25 mg 1-10 TABLET BY ity of tablet 00:00: MOUTH 00 EVERYDAY Medical AT BEDTIME Branch AMITRIPTYLI 2019- Yes TAKE 1 [facility] 25 mg 1-10 TABLET BY ity of tablet 00:00: MOUTH 00 EVERYDAY Medical AT BEDTIME Branch AMITRIPTYLI 2019- Yes TAKE 1 [facility] 25 mg 1-10 TABLET BY ity of tablet 00:00: MOUTH 00 EVERYDAY Medical AT BEDTIME Branch AMITRIPTYLI 2019- Yes TAKE 1 [facility] 25 mg 1-10 TABLET BY ity of tablet 00:00: MOUTH 00 EVERYDAY Medical AT BEDTIME Branch AMITRIPTYLI 2019-02 Yes TAKE 1 [facility] [place] 25 mg 1-10 TABLET BY ity of tablet 00:00: MOUTH [place] 00 EVERYDAY Medical AT BEDTIME Branch AMITRIPTYLI 2020- Yes TAKE 1 Univ ers [facility] 25 mg 1-10 TABLET BY ity of tablet 00:00: [facility] 00 EVERYDAY Medical AT BEDTIME Branch AMITRIPTYLI 2019- Yes TAKE 1 Univ ers NE 25 mg 1-10 TABLET BY ity of tablet 00:00: [facility] 00 EVERYDAY Medical AT BEDTIME Branch AMITRIPTYLI 2019-02 Yes TAKE 1 Univ ers NE 25 mg 1-10 TABLET BY ity of tablet 00:00: [facility] 00 EVERYDAY Medical AT BEDTIME Branch AMITRIPTYLI 2019-02 Yes TAKE 1 Univ ers NE 25 mg 1-10 TABLET BY ity of tablet 00:00: [facility] 00 EVERYDAY Medical AT BEDTIME Branch AMITRIPTYLI 2019-02 Yes TAKE 1 [facility] [place] 25 mg 1-10 TABLET BY ity of tablet 00:00: [facility] EVERYDAY Medical AT BEDTIME Branch AMITRIPTYLI 2019-02 Yes TAKE 1 Univ ers NE 25 mg 1-10 TABLET BY ity of tablet 00:00: [facility] 00 EVERYDAY Medical AT BEDTIME Branch AMITRIPTYLI 2019-02 Yes TAKE 1 Univ ers NE 25 mg 1-10 TABLET BY ity of tablet 00:00: [facility] 00 EVERYDAY Medical AT BEDTIME Branch AMITRIPTYLI 2019-02- No TAKE 1 Uni vers NE 25 mg 1-10 05-05 TABLET BY ity o f tablet 00:00: 00:00 [facility] 00 :00 EVERYDAY Medical AT BEDTIME Branch butorphanol 2019- Yes 2745 USE 1 Unive rs 10 mg/mL 1-09 SPRAY IN ity of nasal spray 00:00: [place] NOSTRIL Medical EVERY 8 Branch HOURS NEEDED FOR HEADACHE Indication s: chronic pain, Headache butorphanol 2019-02 Yes 2745 USE 1 Unive rs 10 mg/mL 1-09 SPRAY IN ity of nasal spray 00:00: [place] NOSTRIL Medical EVERY 8 Branch HOURS NEEDED FOR HEADACHE Indication s: chronic pain, Headache butorphanol 2019-02 Yes 2745 USE 1 Unive rs 10 mg/mL 1-09 SPRAY IN ity of nasal spray 00:00: [place] NOSTRIL Medical EVERY 8 Branch HOURS NEEDED FOR HEADACHE Indication s: chronic pain, Headache butorphanol 2020-1 2020- No 2745 USE 1 Univ ers 10 mg/mL 1-09 12-07 SPRAY IN ity of nasal spray 00:00: 00:00 ONE [place] 00 :00 NOSTRIL Medical EVERY 8 Branch HOURS NEEDED FOR HEADACHE Indication s: chronic pain, Headache butorphanol 2020-1 Yes 2745 USE 1 Unive rs 10 mg/mL 0-09 SPRAY IN ity of nasal spray 00:00: ONE [place] 00 NOSTRIL Medical EVERY 8 Branch HOURS NEEDED FOR HEADACHE Indication s: chronic pain, Headache butorphanol 2020-1 Yes 2745 USE 1 Unive rs 10 mg/mL 0-09 SPRAY IN ity of nasal spray 00:00: ONE [place] [address] NOSTRIL Medical EVERY 8 Branch HOURS NEEDED FOR HEADACHE Indication s: chronic pain, Headache butorphanol 2020-1 2020- No 2745 USE 1 Univ ers 10 mg/mL 0-09 11-09 SPRAY IN ity of nasal spray 00:00: 00:00 ONE [place] 00 :00 NOSTRIL Medical EVERY 8 Branch HOURS NEEDED FOR HEADACHE Indication s: chronic pain, Headache butorphanol 2020-0 Yes 2745 USE 1 Unive rs 10 mg/mL 9-11 SPRAY IN ity of nasal spray 00:00: ONE [place] [address] NOSTRIL Medical EVERY 8 Branch HOURS NEEDED FOR HEADACHE Indication s: chronic pain, Headache butorphanol 2020-0 Yes 2745 USE 1 Unive rs 10 mg/mL 9-11 SPRAY IN ity of nasal spray 00:00: ONE [place] [address] NOSTRIL Medical EVERY 8 Branch HOURS NEEDED FOR HEADACHE Indication s: chronic pain, Headache butorphanol 2020-0 2020- No 2745 USE 1 Univ ers 10 mg/mL 9-11 10-09 SPRAY IN ity of nasal spray 00:00: 00:00 ONE [place] 00 :00 NOSTRIL Medical EVERY 8 Branch HOURS NEEDED FOR HEADACHE Indication s: chronic pain, Headache butorphanol 2020-0 Yes USE 1 Unive rs 10 mg/mL 8-14 SPRAY IN ity of nasal spray 00:00: ONE [place] [address] NOSTRIL Medical EVERY 8 Branch HOURS NEEDED FOR HEADACHE Indication s: Headache butorphanol 2020-0 Yes 2745 USE 1 Unive rs 10 mg/mL 8-14 SPRAY IN ity of nasal spray 00:00: ONE [place] 00 NOSTRIL Medical EVERY 8 Branch HOURS NEEDED FOR HEADACHE Indication s: chronic pain, Headache butorphanol 2020-0 Yes 2745 USE 1 Unive rs 10 mg/mL 8-14 SPRAY IN ity of nasal spray 00:00: ONE [place] 00 NOSTRIL Medical EVERY 8 Branch HOURS NEEDED FOR HEADACHE Indication s: chronic pain, Headache butorphanol 2020-0 2020- No 2745 USE 1 Univ ers 10 mg/mL 8-14 09-11 SPRAY IN ity of nasal spray 00:00: 00:00 ONE [place] 00 :00 NOSTRIL Medical EVERY 8 Branch HOURS NEEDED FOR HEADACHE Indication s: chronic pain, Headache butorphanol 2020-0 2020- No USE 1 Univ ers 10 mg/mL 8-14 08-14 SPRAY IN ity of nasal spray 00:00: 00:00 ONE [place] 00 :00 NOSTRIL Medical EVERY 8 Branch HOURS NEEDED FOR HEADACHE Indication s: Headache butorphanol 2020-0 Yes USE 1 Unive rs 10 mg/mL 7-14 SPRAY IN ity of nasal spray 00:00: ONE [place] [address] NOSTRIL Medical EVERY 8 Branch HOURS NEEDED FOR HEADACHE Indication s: Headache butorphanol 2020-0 2020- No USE 1 Univ ers 10 mg/mL 7-14 08-14 SPRAY IN ity of nasal spray 00:00: 00:00 ONE [place] 00 :00 NOSTRIL Medical EVERY 8 Branch HOURS NEEDED FOR HEADACHE Indication s: Headache butorphanol 2020-0 2020- No USE 1 Univ ers 10 mg/mL 6-09 07-14 SPRAY IN ity of nasal spray 00:00: 00:00 ONE [place] 00 :00 NOSTRIL Medical EVERY 8 Branch HOURS NEEDED FOR HEADACHE butorphanol 2020-0 Yes USE 1 Unive rs 10 mg/mL 6-04 SPRAY IN ity of nasal spray 00:00: ONE [place] 00 NOSTRIL Medical EVERY 8 Branch HOURS NEEDED FOR HEADACHE butorphanol 2020-0 Yes USE 1 Unive rs 10 mg/mL 6-04 SPRAY IN ity of nasal spray 00:00: ONE [place] [address] NOSTRIL Medical EVERY 8 Branch HOURS NEEDED FOR HEADACHE butorphanol 2020-0 Yes USE 1 Unive rs 10 mg/mL 6-04 SPRAY IN ity of nasal spray 00:00: ONE [place] [address] NOSTRIL Medical EVERY 8 Branch HOURS NEEDED FOR HEADACHE butorphanol 2020-0 Yes USE 1 Unive rs 10 mg/mL 6-04 SPRAY IN ity of nasal spray 00:00: [place] NOSTRIL Medical EVERY 8 Branch HOURS NEEDED FOR HEADACHE butorphanol 2020-0 Yes USE 1 Unive rs 10 mg/mL 6-04 SPRAY IN ity of nasal spray 00:00: [place] NOSTRIL Medical EVERY 8 Branch HOURS NEEDED FOR HEADACHE butorphanol 2020-0 Yes USE 1 Unive rs 10 mg/mL 6-04 SPRAY IN ity of nasal spray 00:00: [place] NOSTRIL Medical EVERY 8 Branch HOURS NEEDED FOR HEADACHE butorphanol 2020-0 Yes USE 1 Unive rs 10 mg/mL 6-04 SPRAY IN ity of nasal spray 00:00: [place] NOSTRIL Medical EVERY 8 Branch HOURS NEEDED FOR HEADACHE SERTRALINE 2020-0 Yes [id number] TAKE 1 U nivers 25 mg 5-21 TABLET BY ity of tablet 00:00: [facility] EVERY DAY Medical Branch SERTRALINE 2020-0 Yes [id number] TAKE 1 U nivers 25 mg 5-21 TABLET BY ity of tablet 00:00: [facility] EVERY DAY Medical Branch SERTRALINE 2020-0 Yes [id number] TAKE 1 U nivers 25 mg 5-21 TABLET BY ity of tablet 00:00: [facility] EVERY DAY Medical Branch SERTRALINE 2020-0 Yes [id number] TAKE 1 U nivers 25 mg 5-21 TABLET BY ity of tablet 00:00: [facility] EVERY DAY Medical Branch SERTRALINE 2020-0 Yes [id number] TAKE 1 U nivers 25 mg 5-21 TABLET BY ity of tablet 00:00: [facility] EVERY DAY Medical Branch SERTRALINE 2020-0 Yes [id number] TAKE 1 U nivers 25 mg 5-21 TABLET BY ity of tablet 00:00: [facility] EVERY DAY Medical Branch SERTRALINE 2020-0 Yes [id number] TAKE 1 U nivers 25 mg 5-21 TABLET BY ity of tablet 00:00: [facility] EVERY DAY Medical Branch SERTRALINE 2020-0 Yes [id number] TAKE 1 U nivers 25 mg 5-21 TABLET BY ity of tablet 00:00: [facility] EVERY DAY Medical Branch SERTRALINE 2020-0 Yes [id number] TAKE 1 U nivers 25 mg 5-21 TABLET BY ity of tablet 00:00: [facility] EVERY DAY Medical Branch SERTRALINE 2020-0 Yes [id number] TAKE 1 U nivers 25 mg 5-21 TABLET BY ity of tablet 00:00: [facility] EVERY DAY Medical Branch SERTRALINE 2020-0 Yes [id number] TAKE 1 U nivers 25 mg 5-21 TABLET BY ity of tablet 00:00: [facility] EVERY DAY Medical Branch SERTRALINE 2020-0 Yes [id number] TAKE 1 U nivers 25 mg 5-21 TABLET BY ity of tablet 00:00: [facility] EVERY DAY Medical Branch SERTRALINE 2020-0 Yes [id number] TAKE 1 U nivers 25 mg 5-21 TABLET BY ity of tablet 00:00: [facility] EVERY DAY Medical Branch SERTRALINE 2020-0 Yes [id number] TAKE 1 U nivers 25 mg 5-21 TABLET BY ity of tablet 00:00: [facility] EVERY DAY Medical Branch SERTRALINE 2020-0 Yes [id number] TAKE 1 U nivers 25 mg 5-21 TABLET BY ity of tablet 00:00: [facility] EVERY DAY Medical Branch SERTRALINE 2020-0 Yes [id number] TAKE 1 U nivers 25 mg 5-21 TABLET BY ity of tablet 00:00: [facility] EVERY DAY Medical Branch SERTRALINE 2020-0 Yes [id number] TAKE 1 U nivers 25 mg 5-21 TABLET BY ity of tablet 00:00: [facility] EVERY DAY Medical Branch SERTRALINE 2020-0 Yes [id number] TAKE 1 U nivers 25 mg 5-21 TABLET BY ity of tablet 00:00: [facility] EVERY DAY Medical Branch SERTRALINE 2020-0 Yes [id number] TAKE 1 U nivers 25 mg 5-21 TABLET BY ity of tablet 00:00: [facility] EVERY DAY Medical Branch SERTRALINE 2020-0 Yes [id number] TAKE 1 U nivers 25 mg 5-21 TABLET BY ity of tablet 00:00: [facility] EVERY DAY Medical Branch SERTRALINE 2020-0 Yes [id number] TAKE 1 U nivers 25 mg 5-21 TABLET BY ity of tablet 00:00: [facility] EVERY DAY Medical Branch SERTRALINE 2020-0 Yes [id number] TAKE 1 U nivers 25 mg 5-21 TABLET BY ity of tablet 00:00: [facility] EVERY DAY Medical Branch SERTRALINE 2020-0 Yes [id number] TAKE 1 U nivers 25 mg 5-21 TABLET BY ity of tablet 00:00: [facility] EVERY DAY Medical Branch SERTRALINE 2020-0 Yes [id number] TAKE 1 U nivers 25 mg 5-21 TABLET BY ity of tablet 00:00: [facility] EVERY DAY Medical Branch SERTRALINE 2020-0 Yes [id number] TAKE 1 U nivers 25 mg 5-21 TABLET BY ity of tablet 00:00: [facility] EVERY DAY Medical Branch SERTRALINE 2020-0 Yes [id number] TAKE 1 U nivers 25 mg 5-21 TABLET BY ity of tablet 00:00: [facility] EVERY DAY Medical Branch SERTRALINE 2020-0 Yes [id number] TAKE 1 U nivers 25 mg 5-21 TABLET BY ity of tablet 00:00: [facility] EVERY DAY Medical Branch SERTRALINE 2020-0 Yes [id number] TAKE 1 U nivers 25 mg 5-21 TABLET BY ity of tablet 00:00: [facility] EVERY DAY Medical Branch SERTRALINE 2020-0 Yes [id number] TAKE 1 U nivers 25 mg 5-21 TABLET BY ity of tablet 00:00: [facility] EVERY DAY Medical Branch SERTRALINE 2020-0 Yes [id number] TAKE 1 U nivers 25 mg 5-21 TABLET BY ity of tablet 00:00: [facility] EVERY DAY Medical Branch SERTRALINE 2020-0 Yes [id number] TAKE 1 U nivers 25 mg 5-21 TABLET BY ity of tablet 00:00: [facility] EVERY DAY Medical Branch SERTRALINE 2020-0 Yes [id number] TAKE 1 U nivers 25 mg 5-21 TABLET BY ity of tablet 00:00: [facility] EVERY DAY Medical Branch SERTRALINE 2020-0 Yes [id number] TAKE 1 U nivers 25 mg 5-21 TABLET BY ity of tablet 00:00: [facility] EVERY DAY Medical Branch SERTRALINE 2020-0 Yes [id number] TAKE 1 U nivers 25 mg 5-21 TABLET BY ity of tablet 00:00: [facility] EVERY DAY Medical Branch SERTRALINE 2020-0 Yes [id number] TAKE 1 U nivers 25 mg 5-21 TABLET BY ity of tablet 00:00: [facility] EVERY DAY Medical Branch SERTRALINE 2020-0 Yes [id number] TAKE 1 U nivers 25 mg 5-21 TABLET BY ity of tablet 00:00: MOUTH [place] EVERY DAY Medical Branch SERTRALINE 2020-0 Yes [id number] TAKE 1 U nivers 25 mg 5-21 TABLET BY ity of tablet 00:00: MOUTH [place] EVERY DAY Medical Branch SERTRALINE 2020-0 Yes [id number] TAKE 1 U nivers 25 mg 5-21 TABLET BY ity of tablet 00:00: MOUTH [place] EVERY DAY Medical Branch SERTRALINE 2020-0 Yes [id number] TAKE 1 U nivers 25 mg 5-21 TABLET BY ity of tablet 00:00: MOUTH [place] 00 EVERY DAY Medical Branch SERTRALINE 2020-0 Yes [id number] TAKE 1 U nivers 25 mg 5-21 TABLET BY ity of tablet 00:00: MOUTH [place] EVERY DAY Medical Branch SERTRALINE 2020-0 Yes [id number] TAKE 1 U nivers 25 mg 5-21 TABLET BY ity of tablet 00:00: [facility] EVERY DAY Medical Branch SERTRALINE 2020-0 Yes [id number] TAKE 1 U nivers 25 mg 5-21 TABLET BY ity of tablet 00:00: MOUTH [place] EVERY DAY Medical Branch butorphanol 2020-0 Yes USE 1 Unive rs 10 mg/mL 5-05 SPRAY IN ity of nasal spray 00:00: ONE [place] NOSTRIL Medical EVERY 8 Branch HOURS NEEDED FOR HEADACHE amitriptyli 2020-0 Yes 25mg Take 1 Univ ers ne 25 mg 5-05 tablet by ity of tablet 00:00: mouth at [place] [address] bedtime. Medical Branch butorphanol 2020-0 Yes USE 1 Unive rs 10 mg/mL 5-05 SPRAY IN ity of nasal spray 00:00: ONE [place] NOSTRIL Medical EVERY 8 Branch HOURS NEEDED FOR HEADACHE amitriptyli 2020-0 Yes 25mg Take 1 Univ ers ne 25 mg 5-05 tablet by ity of tablet 00:00: mouth at [place] [address] bedtime. Medical Branch butorphanol 2020-0 Yes USE 1 Unive rs 10 mg/mL 5-05 SPRAY IN ity of nasal spray 00:00: ONE [place] NOSTRIL Medical EVERY 8 Branch HOURS NEEDED FOR HEADACHE amitriptyli 2020-0 Yes 25mg Take 1 Univ ers ne 25 mg 5-05 tablet by ity of tablet 00:00: mouth at [place] [address] bedtime. Medical Branch butorphanol 2020-0 Yes USE 1 Unive rs 10 mg/mL 5-05 SPRAY IN ity of nasal spray 00:00: ONE [place] NOSTRIL Medical EVERY 8 Branch HOURS NEEDED FOR HEADACHE amitriptyli 2020-0 Yes 25mg Take 1 Univ ers ne 25 mg 5-05 tablet by ity of tablet 00:00: mouth at [place] [address] bedtime. Medical Branch butorphanol 2020-0 Yes USE 1 Unive rs 10 mg/mL 5-05 SPRAY IN ity of nasal spray 00:00: ONE [place] NOSTRIL Medical EVERY 8 Branch HOURS NEEDED FOR HEADACHE amitriptyli 2020-0 Yes 25mg Take 1 Univ ers ne 25 mg 5-05 tablet by ity of tablet 00:00: mouth at [place] [address] bedtime. Medical Branch amitriptyli 2020-0 Yes 25mg Take 1 Univ ers ne 25 mg 5-05 tablet by ity of tablet 00:00: mouth at [place] [address] bedtime. Medical Branch amitriptyli 2020-0 Yes 25mg Take 1 Univ ers ne 25 mg 5-05 tablet by ity of tablet 00:00: mouth at [place] [address] bedtime. Medical Branch amitriptyli 2020-0 Yes 25mg Take 1 Univ ers ne 25 mg 5-05 tablet by ity of tablet 00:00: mouth at [place] [address] bedtime. Medical Branch amitriptyli 2020-0 Yes 25mg Take 1 Univ ers ne 25 mg 5-05 tablet by ity of tablet 00:00: mouth at [place] [address] bedtime. Medical Branch amitriptyli 2020-0 Yes 25mg Take 1 Univ ers ne 25 mg 5-05 tablet by ity of tablet 00:00: mouth at [place] [address] bedtime. Medical Branch amitriptyli 2020-0 Yes 25mg Take 1 Univ ers ne 25 mg 5-05 tablet by ity of tablet 00:00: mouth at [place] [address] bedtime. Medical Branch amitriptyli 2020-0 Yes 25mg Take 1 Univ ers ne 25 mg 5-05 tablet by ity of tablet 00:00: mouth at [place] [address] bedtime. Medical Branch amitriptyli 2020-0 Yes 25mg Take 1 Univ ers ne 25 mg 5-05 tablet by ity of tablet 00:00: mouth at [place] [address] bedtime. Medical Branch amitriptyli 2020-0 Yes 25mg Take 1 Univ ers ne 25 mg 5-05 tablet by ity of tablet 00:00: mouth at [place] [address] bedtime. Medical Branch amitriptyli 2020-0 Yes 25mg Take 1 Univ ers ne 25 mg 5-05 tablet by ity of tablet 00:00: mouth at [place] [address] bedtime. Medical Branch amitriptyli 2020-0 Yes 25mg Take 1 Univ ers ne 25 mg 5-05 tablet by ity of tablet 00:00: mouth at [place] [address] bedtime. Medical Branch amitriptyli 2020-0 Yes 25mg Take 1 Univ ers ne 25 mg 5-05 tablet by ity of tablet 00:00: mouth at [place] [address] bedtime. Medical Branch amitriptyli 2020-0 Yes 25mg Take 1 [facility] ne 25 mg 5-05 tablet by ity of tablet 00:00: mouth at [place] [address] bedtime. Medical Branch amitriptyli 2020-0 Yes 25mg Take 1 [facility] ne 25 mg 5-05 tablet by ity of tablet 00:00: mouth at [place] [address] bedtime. Medical Branch amitriptyli 2020-0 Yes 25mg Take 1 [facility] 25 mg 5-05 tablet by ity of tablet 00:00: mouth at [place] [address] bedtime. Medical Branch amitriptyli 2020-0 Yes 25mg Take 1 [facility] ne 25 mg 5-05 tablet by ity of tablet 00:00: mouth at [place] [address] bedtime. Medical Branch amitriptyli 2020-0 Yes 25mg Take 1 [facility] ne 25 mg 5-05 tablet by ity of tablet 00:00: mouth at [place] [address] bedtime. Medical Branch amitriptyli 2020-0 2020- No 25mg Take 1 [facility] ne 25 mg 5-05 11-10 tablet by ity o f tablet 00:00: 00:00 mouth at [place] 00 :00 bedtime. Medical Branch butorphanol 2020-0 2020- No USE 1 [facility] ers 10 mg/mL 5-05 06-04 SPRAY IN ity of nasal spray 00:00: 00:00 ONE [place] 00 :00 NOSTRIL Medical EVERY 8 Branch HOURS NEEDED FOR HEADACHE butorphanol 2020-0 2020- No USE 1 [facility] ers 10 mg/mL 5-05 06-04 SPRAY IN ity of nasal spray 00:00: 00:00 [facility] 00 :00 NOSTRIL Medical EVERY 8 Branch HOURS NEEDED FOR HEADACHE AMITRIPTYLI 2020-0 Yes TAKE 1 [facility] ers NE 25 mg 4-14 TABLET BY ity of tablet 00:00: [facility] 00 EVERYDAY Medical AT BEDTIME Branch AMITRIPTYLI 2020-0 2020- No TAKE 1 Uni vers NE 25 mg 4-14 05-05 TABLET BY ity o f tablet 00:00: 00:00 [facility] [place] 00 :00 EVERYDAY Medical AT BEDTIME Branch butorphanol 2020-0 Yes USE 1 [facility] rs 10 mg/mL 4-01 SPRAY IN ity of nasal spray 00:00: [place] NOSTRIL Medical EVERY 8 Branch HOURS NEEDED FOR HEADACHE butorphanol 2020-0 Yes USE 1 [facility] rs 10 mg/mL 4-01 SPRAY IN ity of nasal spray 00:00: [place] NOSTRIL Medical EVERY 8 Branch HOURS NEEDED FOR HEADACHE butorphanol 2020-0 2020- No USE 1 Univ ers 10 mg/mL 4-01 05-05 SPRAY IN ity of nasal spray 00:00: 00:00 [facility] 00 :00 NOSTRIL Medical EVERY 8 Branch HOURS NEEDED FOR HEADACHE AMITRIPTYLI 2020-0 Yes TAKE 1 [facility] ers NE 25 mg 3-30 TABLET BY ity of tablet 00:00: [facility] 00 EVERYDAY Medical AT BEDTIME Branch AMITRIPTYLI 2020-0 Yes TAKE 1 [facility] ers NE 25 mg 3-30 TABLET BY ity of tablet 00:00: MOUTH [place] 00 EVERYDAY Medical AT BEDTIME Branch AMITRIPTYLI 2020-0 2020- No TAKE 1 [facility] vers NE 25 mg 3-30 04-14 TABLET BY ity o f tablet 00:00: 00:00 MOUTH [place] 00 :00 EVERYDAY Medical AT BEDTIME Branch sulfamethox 2020-0 Yes [id number] 1{tbl} Take 1 [facility] azole-trime 3-25 tablet by ity of thoprim 00:00: mouth 2 [place] 800-160 mg 00 (two) Medical per tablet times Branch daily. sulfamethox 2020-0 Yes [id number] 1{tbl} Take 1 [facility] azole-trime 3-25 tablet by ity of thoprim 00:00: mouth 2 [place] 800-160 mg 00 (two) Medical per tablet times Branch daily. sulfamethox 2020-0 Yes [id number] 1{tbl} Take 1 [facility] azole-trime 3-25 tablet by ity of thoprim 00:00: mouth 2 [place] 800-160 mg 00 (two) Medical per tablet times Branch daily. sulfamethox 2020-0 Yes [id number] 1{tbl} Take 1 [facility] azole-trime 3-25 tablet by ity of thoprim 00:00: mouth 2 [place] 800-160 mg 00 (two) Medical per tablet times Branch daily. sulfamethox 2020-0 Yes [id number] 1{tbl} Take 1 [facility] azole-trime 3-25 tablet by ity of thoprim 00:00: mouth 2 [place] 800-160 mg 00 (two) Medical per tablet times Branch daily. sulfamethox 2020-0 Yes [id number] 1{tbl} Take 1 [facility] azole-trime 3-25 tablet by ity of thoprim 00:00: mouth 2 [place] 800-160 mg 00 (two) Medical per tablet times Branch daily. sulfamethox 2020-0 Yes [id number] 1{tbl} Take 1 [facility] azole-trime 3-25 tablet by ity of thoprim 00:00: mouth 2 [place] 800-160 mg 00 (two) Medical per tablet times Branch daily. sulfamethox 2020-0 Yes [id number] 1{tbl} Take 1 [facility] azole-trime 3-25 tablet by ity of thoprim 00:00: mouth 2 [place] 800-160 mg 00 (two) Medical per tablet times Branch daily. sulfamethox 2020-0 Yes [id number] 1{tbl} Take 1 [facility] azole-trime 3-25 tablet by ity of thoprim 00:00: mouth 2 [place] 800-160 mg 00 (two) Medical per tablet times Branch daily. sulfamethox 2020-0 Yes [id number] 1{tbl} Take 1 [facility] azole-trime 3-25 tablet by ity of thoprim 00:00: mouth 2 [place] 800-160 mg 00 (two) Medical per tablet times Branch daily. sulfamethox 2020-0 Yes [id number] 1{tbl} Take 1 [facility] azole-trime 3-25 tablet by ity of thoprim 00:00: mouth 2 [place] 800-160 mg 00 (two) Medical per tablet times Branch daily. sulfamethox 2020-0 Yes [id number] 1{tbl} Take 1 [facility] azole-trime 3-25 tablet by ity of thoprim 00:00: mouth 2 [place] 800-160 mg 00 (two) Medical per tablet times Branch daily. sulfamethox 2020-0 Yes [id number] 1{tbl} Take 1 [facility] azole-trime 3-25 tablet by ity of thoprim 00:00: mouth 2 [place] 800-160 mg 00 (two) Medical per tablet times Branch daily. sulfamethox 2020-0 Yes [id number] 1{tbl} Take 1 [facility] azole-trime 3-25 tablet by ity of thoprim 00:00: mouth 2 [place] 800-160 mg 00 (two) Medical per tablet times Branch daily. sulfamethox 2020-0 Yes [id number] 1{tbl} Take 1 [facility] azole-trime 3-25 tablet by ity of thoprim 00:00: mouth 2 [place] 800-160 mg 00 (two) Medical per tablet times Branch daily. sulfamethox 2020-0 Yes [id number] 1{tbl} Take 1 [facility] azole-trime 3-25 tablet by ity of thoprim 00:00: mouth 2 [place] 800-160 mg 00 (two) Medical per tablet times Branch daily. sulfamethox 2020-0 Yes [id number] 1{tbl} Take 1 [facility] azole-trime 3-25 tablet by ity of thoprim 00:00: mouth 2 [place] 800-160 mg 00 (two) Medical per tablet times Branch daily. sulfamethox 2020-0 Yes [id number] 1{tbl} Take 1 [facility] azole-trime 3-25 tablet by ity of thoprim 00:00: mouth 2 [place] 800-160 mg 00 (two) Medical per tablet times Branch daily. sulfamethox 2020-0 Yes [id number] 1{tbl} Take 1 [facility] azole-trime 3-25 tablet by ity of thoprim 00:00: mouth 2 [place] 800-160 mg 00 (two) Medical per tablet times Branch daily. sulfamethox 2020-0 Yes [id number] 1{tbl} Take 1 [facility] azole-trime 3-25 tablet by ity of thoprim 00:00: mouth 2 [place] 800-160 mg 00 (two) Medical per tablet times Branch daily. sulfamethox 2020-0 Yes [id number] 1{tbl} Take 1 [facility] azole-trime 3-25 tablet by ity of thoprim 00:00: mouth 2 [place] 800-160 mg 00 (two) Medical per tablet times Branch daily. sulfamethox 2020-0 Yes [id number] 1{tbl} Take 1 [facility] azole-trime 3-25 tablet by ity of thoprim 00:00: mouth 2 [place] 800-160 mg 00 (two) Medical per tablet times Branch daily. sulfamethox 2020-0 Yes [id number] 1{tbl} Take 1 [facility] azole-trime 3-25 tablet by ity of thoprim 00:00: mouth 2 [place] 800-160 mg 00 (two) Medical per tablet times Branch daily. sulfamethox 2020-0 Yes [id number] 1{tbl} Take 1 [facility] azole-trime 3-25 tablet by ity of thoprim 00:00: mouth 2 [place] 800-160 mg 00 (two) Medical per tablet times Branch daily. sulfamethox 2020-0 Yes [id number] 1{tbl} Take 1 [facility] azole-trime 3-25 tablet by ity of thoprim 00:00: mouth 2 [place] 800-160 mg 00 (two) Medical per tablet times Branch daily. sulfamethox 2020-0 Yes [id number] 1{tbl} Take 1 [facility] azole-trime 3-25 tablet by ity of thoprim 00:00: mouth 2 [place] 800-160 mg 00 (two) Medical per tablet times Branch daily. sulfamethox 2020-0 Yes [id number] 1{tbl} Take 1 [facility] azole-trime 3-25 tablet by ity of thoprim 00:00: mouth 2 [place] 800-160 mg 00 (two) Medical per tablet times Branch daily. sulfamethox 2020-0 Yes [id number] 1{tbl} Take 1 [facility] azole-trime 3-25 tablet by ity of thoprim 00:00: mouth 2 [place] 800-160 mg 00 (two) Medical per tablet times Branch daily. sulfamethox 2020-0 Yes [id number] 1{tbl} Take 1 [facility] azole-trime 3-25 tablet by ity of thoprim 00:00: mouth 2 [place] 800-160 mg 00 (two) Medical per tablet times Branch daily. sulfamethox 2020-0 Yes [id number] 1{tbl} Take 1 [facility] azole-trime 3-25 tablet by ity of thoprim 00:00: mouth 2 [place] 800-160 mg 00 (two) Medical per tablet times Branch daily. sulfamethox 2020-0 Yes [id number] 1{tbl} Take 1 [facility] azole-trime 3-25 tablet by ity of thoprim 00:00: mouth 2 [place] 800-160 mg 00 (two) Medical per tablet times Branch daily. sulfamethox 2020-0 Yes [id number] 1{tbl} Take 1 [facility] azole-trime 3-25 tablet by ity of thoprim 00:00: mouth 2 [place] 800-160 mg 00 (two) Medical per tablet times Branch daily. sulfamethox 2020-0 Yes [id number] 1{tbl} Take 1 [facility] azole-trime 3-25 tablet by ity of thoprim 00:00: mouth 2 [place] 800-160 mg 00 (two) Medical per tablet times Branch daily. sulfamethox 2020-0 Yes [id number] 1{tbl} Take 1 [facility] azole-trime 3-25 tablet by ity of thoprim 00:00: mouth 2 [place] 800-160 mg 00 (two) Medical per tablet times Branch daily. sulfamethox 2020-0 Yes [id number] 1{tbl} Take 1 [facility] azole-trime 3-25 tablet by ity of thoprim 00:00: mouth 2 [place] 800-160 mg 00 (two) Medical per tablet times Branch daily. sulfamethox 2020-0 Yes [id number] 1{tbl} Take 1 [facility] azole-trime 3-25 tablet by ity of thoprim 00:00: mouth 2 [place] 800-160 mg 00 (two) Medical per tablet times Branch daily. sulfamethox 2020-0 Yes [id number] 1{tbl} Take 1 [facility] azole-trime 3-25 tablet by ity of thoprim 00:00: mouth 2 [place] 800-160 mg 00 (two) Medical per tablet times Branch daily. sulfamethox 2020-0 Yes [id number] 1{tbl} Take 1 [facility] azole-trime 3-25 tablet by ity of thoprim 00:00: mouth 2 [place] 800-160 mg 00 (two) Medical per tablet times Branch daily. sulfamethox 2020-0 Yes [id number] 1{tbl} Take 1 [facility] azole-trime 3-25 tablet by ity of thoprim 00:00: mouth 2 [place] 800-160 mg 00 (two) Medical per tablet times Branch daily. sulfamethox 2020-0 Yes [id number] 1{tbl} Take 1 [facility] azole-trime 3-25 tablet by ity of thoprim 00:00: mouth 2 [place] 800-160 mg 00 (two) Medical per tablet times Branch daily. sulfamethox 2020-0 Yes [id number] 1{tbl} Take 1 [facility] azole-trime 3-25 tablet by ity of thoprim 00:00: mouth 2 [place] 800-160 mg 00 (two) Medical per tablet times Branch daily. sulfamethox 2020-0 Yes [id number] 1{tbl} Take 1 [facility] azole-trime 3-25 tablet by ity of thoprim 00:00: mouth 2 [place] 800-160 mg 00 (two) Medical per tablet times Branch daily. sulfamethox 2020-0 Yes [id number] 1{tbl} Take 1 [facility] azole-trime 3-25 tablet by ity of thoprim 00:00: mouth 2 [place] 800-160 mg 00 (two) Medical per tablet times Branch daily. sulfamethox 2020-0 Yes [id number] 1{tbl} Take 1 [facility] azole-trime 3-25 tablet by ity of thoprim 00:00: mouth 2 [place] 800-160 mg 00 (two) Medical per tablet times Branch daily. sulfamethox 2020-0 Yes [id number] 1{tbl} Take 1 [facility] azole-trime 3-25 tablet by ity of thoprim 00:00: mouth 2 [place] 800-160 mg 00 (two) Medical per tablet times Branch daily. sulfamethox 2020-0 Yes [id number] 1{tbl} Take 1 [facility] azole-trime 3-25 tablet by ity of thoprim 00:00: mouth 2 [place] 800-160 mg 00 (two) Medical per tablet times Branch daily. sulfamethox 2020-0 Yes [id number] 1{tbl} Take 1 [facility] azole-trime 3-25 tablet by ity of thoprim 00:00: mouth 2 [place] 800-160 mg 00 (two) Medical per tablet times Branch daily. sulfamethox 2020-0 Yes [id number] 1{tbl} Take 1 [facility] azole-trime 3-25 tablet by ity of thoprim 00:00: mouth 2 [place] 800-160 mg 00 (two) Medical per tablet times Branch daily. sulfamethox 2020-0 Yes [id number] 1{tbl} Take 1 [facility] azole-trime 3-25 tablet by ity of thoprim 00:00: mouth 2 [place] 800-160 mg 00 (two) Medical per tablet times Branch daily. sulfamethox 2020-0 Yes [id number] 1{tbl} Take 1 [facility] azole-trime 3-25 tablet by ity of thoprim 00:00: mouth 2 [place] 800-160 mg 00 (two) Medical per tablet times Branch daily. carvediloL 2020-0 Yes 25mg Take 25 mg U nivers 25 mg 3-07 by mouth 2 ity of tablet 01:16: (two) [place] [address] times Medical daily with Branch meals. proMETHazin 2020-0 Yes 12.5mg Take 12.5 Univers e 25 mg 3-07 mg by ity of tablet 01:16: mouth 3 [place] 39 (three) Medical times Branch daily as needed for Nausea and Vomiting (N/V). insulin 2020-0 Yes inject Univers aspart 3-07 under the ity of U-100 01:16: skin. [place] (NOVOLOG 39 Medical FLEXPEN Branch U-100 INSULIN) 100 unit/mL (3 mL) injection carvediloL 2020-0 Yes 25mg Take 25 mg U nivers 25 mg 3-07 by mouth 2 ity of tablet 01:16: (two) [place] [address] times Medical daily with Branch meals. proMETHazin 2020-0 Yes 12.5mg Take 12.5 Univers e 25 mg 3-07 mg by ity of tablet 01:16: mouth 3 [place] 39 (three) Medical times Branch daily as needed for Nausea and Vomiting (N/V). insulin 2020-0 Yes inject Univers aspart 3-07 under the ity of U-100 01:16: skin. [place] (NOVOLOG 39 Medical FLEXPEN Branch U-100 INSULIN) 100 unit/mL (3 mL) injection carvediloL 2020-0 Yes 25mg Take 25 mg U nivers 25 mg 3-07 by mouth 2 ity of tablet 01:16: (two) [place] 39 times Medical daily with Branch meals. proMETHazin 2020-0 Yes 12.5mg Take 12.5 Univers e 25 mg 3-07 mg by ity of tablet 01:16: mouth 3 [place] 39 (three) Medical times Branch daily as needed for Nausea and Vomiting (N/V). insulin 2020-0 Yes inject Univers aspart 3-07 under the ity of U-100 01:16: skin. [place] (NOVOLOG 39 Medical FLEXPEN Branch U-100 INSULIN) 100 unit/mL (3 mL) injection carvediloL 2020-0 Yes 25mg Take 25 mg U nivers 25 mg 3-07 by mouth 2 ity of tablet 01:16: (two) [place] 39 times Medical daily with Branch meals. proMETHazin 2020-0 Yes 12.5mg Take 12.5 Univers e 25 mg 3-07 mg by ity of tablet 01:16: mouth 3 [place] [address] (three) Medical times Branch daily as needed for Nausea and Vomiting (N/V). insulin 2020-0 Yes inject Univers aspart 3-07 under the ity of U-100 01:16: skin. [place] (NOVOLOG 39 Medical FLEXPEN Branch U-100 INSULIN) 100 unit/mL (3 mL) injection carvediloL 2020-0 Yes 25mg Take 25 mg U nivers 25 mg 3-07 by mouth 2 ity of tablet 01:16: (two) [place] 39 times Medical daily with Branch meals. proMETHazin 2020-0 Yes 12.5mg Take 12.5 Univers e 25 mg 3-07 mg by ity of tablet 01:16: mouth 3 [place] [address] (three) Medical times Branch daily as needed for Nausea and Vomiting (N/V). insulin 2020-0 Yes inject [facility] aspart 3-07 under the ity of U-100 01:16: skin. [place] (NOVOLOG 39 Medical FLEXPEN Branch U-100 INSULIN) 100 unit/mL (3 mL) injection carvediloL 2020-0 Yes 25mg Take 25 mg U nivers 25 mg 3-07 by mouth 2 ity of tablet 01:16: (two) [place] 39 times Medical daily with Branch meals. proMETHazin 2020-0 Yes 12.5mg Take 12.5 Univers e 25 mg 3-07 mg by ity of tablet 01:16: mouth 3 [place] [address] (three) Medical times Branch daily as needed for Nausea and Vomiting (N/V). insulin 2020-0 Yes inject [facility] aspart 3-07 under the ity of U-100 01:16: skin. [place] (NOVOLOG 39 Medical FLEXPEN Branch U-100 INSULIN) 100 unit/mL (3 mL) injection carvediloL 2020-0 Yes 25mg Take 25 mg U nivers 25 mg 3-07 by mouth 2 ity of tablet 01:16: (two) [place] [address] times Medical daily with Branch meals. proMETHazin 2020-0 Yes 12.5mg Take 12.5 Univers e 25 mg 3-07 mg by ity of tablet 01:16: mouth 3 [place] [address] (three) Medical times Branch daily as needed for Nausea and Vomiting (N/V). insulin 2020-0 Yes inject [facility] aspart 3-07 under the ity of U-100 01:16: skin. [place] (NOVOLOG 39 Medical FLEXPEN Branch U-100 INSULIN) 100 unit/mL (3 mL) injection carvediloL 2020-0 Yes 25mg Take 25 mg U nivers 25 mg 3-07 by mouth 2 ity of tablet 01:16: (two) [place] [address] times Medical daily with Branch meals. proMETHazin 2020-0 Yes 12.5mg Take 12.5 Univers e 25 mg 3-07 mg by ity of tablet 01:16: mouth 3 [place] [address] (three) Medical times Branch daily as needed for Nausea and Vomiting (N/V). insulin 2020-0 Yes inject [facility] aspart 3-07 under the ity of U-100 01:16: skin. [place] (NOVOLOG 39 Medical FLEXPEN Branch U-100 INSULIN) 100 unit/mL (3 mL) injection carvediloL 2020-0 Yes 25mg Take 25 mg U nivers 25 mg 3-07 by mouth 2 ity of tablet 01:16: (two) [place] [address] times Medical daily with Branch meals. proMETHazin 2020-0 Yes 12.5mg Take 12.5 Univers e 25 mg 3-07 mg by ity of tablet 01:16: mouth 3 [place] [address] (three) Medical times Branch daily as needed for Nausea and Vomiting (N/V). insulin 2020-0 Yes inject [facility] aspart 3-07 under the ity of U-100 01:16: skin. [place] (NOVOLOG 39 Medical FLEXPEN Branch U-100 INSULIN) 100 unit/mL (3 mL) injection carvediloL 2020-0 Yes 25mg Take 25 mg U nivers 25 mg 3-07 by mouth 2 ity of tablet 01:16: (two) [place] 39 times Medical daily with Branch meals. proMETHazin 2020-0 Yes 12.5mg Take 12.5 Univers e 25 mg 3-07 mg by ity of tablet 01:16: mouth 3 [place] 39 (three) Medical times Branch daily as needed for Nausea and Vomiting (N/V). insulin 2020-0 Yes inject [facility] aspart 3-07 under the ity of U-100 01:16: skin. [place] (NOVOLOG 39 Medical FLEXPEN Branch U-100 INSULIN) 100 unit/mL (3 mL) injection carvediloL 2020-0 Yes 25mg Take 25 mg U nivers 25 mg 3-07 by mouth 2 ity of tablet 01:16: (two) [place] 39 times Medical daily with Branch meals. proMETHazin 2020-0 Yes 12.5mg Take 12.5 Univers e 25 mg 3-07 mg by ity of tablet 01:16: mouth 3 [place] 39 (three) Medical times Branch daily as needed for Nausea and Vomiting (N/V). insulin 2020-0 Yes inject [facility] aspart 3-07 under the ity of U-100 01:16: skin. [place] (NOVOLOG 39 Medical FLEXPEN Branch U-100 INSULIN) 100 unit/mL (3 mL) injection carvediloL 2020-0 Yes 25mg Take 25 mg U nivers 25 mg 3-07 by mouth 2 ity of tablet 01:16: (two) [place] 39 times Medical daily with Branch meals. proMETHazin 2020-0 Yes 12.5mg Take 12.5 Univers e 25 mg 3-07 mg by ity of tablet 01:16: mouth 3 [place] 39 (three) Medical times Branch daily as needed for Nausea and Vomiting (N/V). insulin 2020-0 Yes inject [facility] aspart 3-07 under the ity of U-100 01:16: skin. [place] (NOVOLOG 39 Medical FLEXPEN Branch U-100 INSULIN) 100 unit/mL (3 mL) injection carvediloL 2020-0 Yes 25mg Take 25 mg U nivers 25 mg 3-07 by mouth 2 ity of tablet 01:16: (two) [place] 39 times Medical daily with Branch meals. proMETHazin 2020-0 Yes 12.5mg Take 12.5 Univers e 25 mg 3-07 mg by ity of tablet 01:16: mouth 3 [place] 39 (three) Medical times Branch daily as needed for Nausea and Vomiting (N/V). insulin 2020-0 Yes inject [facility] aspart 3-07 under the ity of U-100 01:16: skin. [place] (NOVOLOG 39 Medical FLEXPEN Branch U-100 INSULIN) 100 unit/mL (3 mL) injection carvediloL 2020-0 Yes 25mg Take 25 mg U nivers 25 mg 3-07 by mouth 2 ity of tablet 01:16: (two) [place] 39 times Medical daily with Branch meals. proMETHazin 2020-0 Yes 12.5mg Take 12.5 Univers e 25 mg 3-07 mg by ity of tablet 01:16: mouth 3 [place] [address] (three) Medical times Branch daily as needed for Nausea and Vomiting (N/V). insulin 2020-0 Yes inject [facility] aspart 3-07 under the ity of U-100 01:16: skin. [place] (NOVOLOG 39 Medical FLEXPEN Branch U-100 INSULIN) 100 unit/mL (3 mL) injection carvediloL 2020-0 Yes 25mg Take 25 mg U nivers 25 mg 3-07 by mouth 2 ity of tablet 01:16: (two) [place] 39 times Medical daily with Branch meals. proMETHazin 2020-0 Yes 12.5mg Take 12.5 Univers e 25 mg 3-07 mg by ity of tablet 01:16: mouth 3 [place] 39 (three) Medical times Branch daily as needed for Nausea and Vomiting (N/V). insulin 2020-0 Yes inject [facility] aspart 3-07 under the ity of U-100 01:16: skin. [place] (NOVOLOG 39 Medical FLEXPEN Branch U-100 INSULIN) 100 unit/mL (3 mL) injection carvediloL 2020-0 Yes 25mg Take 25 mg U nivers 25 mg 3-07 by mouth 2 ity of tablet 01:16: (two) [place] 39 times Medical daily with Branch meals. proMETHazin 2020-0 Yes 12.5mg Take 12.5 Univers e 25 mg 3-07 mg by ity of tablet 01:16: mouth 3 [place] 39 (three) Medical times Branch daily as needed for Nausea and Vomiting (N/V). insulin 2020-0 Yes inject [facility] aspart 3-07 under the ity of U-100 01:16: skin. [place] (NOVOLOG 39 Medical FLEXPEN Branch U-100 INSULIN) 100 unit/mL (3 mL) injection carvediloL 2020-0 Yes 25mg Take 25 mg U nivers 25 mg 3-07 by mouth 2 ity of tablet 01:16: (two) [place] 39 times Medical daily with Branch meals. proMETHazin 2020-0 Yes 12.5mg Take 12.5 Univers e 25 mg 3-07 mg by ity of tablet 01:16: mouth 3 [place] 39 (three) Medical times Branch daily as needed for Nausea and Vomiting (N/V). insulin 2020-0 Yes inject [facility] aspart 3-07 under the ity of U-100 01:16: skin. [place] (NOVOLOG 39 Medical FLEXPEN Branch U-100 INSULIN) 100 unit/mL (3 mL) injection carvediloL 2020-0 Yes 25mg Take 25 mg U nivers 25 mg 3-07 by mouth 2 ity of tablet 01:16: (two) [place] 39 times Medical daily with Branch meals. proMETHazin 2020-0 Yes 12.5mg Take 12.5 Univers e 25 mg 3-07 mg by ity of tablet 01:16: mouth 3 [place] [address] (three) Medical times Branch daily as needed for Nausea and Vomiting (N/V). insulin 2020-0 Yes inject [facility] aspart 3-07 under the ity of U-100 01:16: skin. [place] (NOVOLOG 39 Medical FLEXPEN Branch U-100 INSULIN) 100 unit/mL (3 mL) injection carvediloL 2020-0 Yes 25mg Take 25 mg U nivers 25 mg 3-07 by mouth 2 ity of tablet 01:16: (two) [place] 39 times Medical daily with Branch meals. proMETHazin 2020-0 Yes 12.5mg Take 12.5 Univers e 25 mg 3-07 mg by ity of tablet 01:16: mouth 3 [place] [address] (three) Medical times Branch daily as needed for Nausea and Vomiting (N/V). insulin 2020-0 Yes inject [facility] aspart 3-07 under the ity of U-100 01:16: skin. [place] (NOVOLOG 39 Medical FLEXPEN Branch U-100 INSULIN) 100 unit/mL (3 mL) injection carvediloL 2020-0 Yes 25mg Take 25 mg U nivers 25 mg 3-07 by mouth 2 ity of tablet 01:16: (two) [place] 39 times Medical daily with Branch meals. proMETHazin 2020-0 Yes 12.5mg Take 12.5 Univers e 25 mg 3-07 mg by ity of tablet 01:16: mouth 3 [place] 39 (three) Medical times Branch daily as needed for Nausea and Vomiting (N/V). insulin 2020-0 Yes inject [facility] aspart 3-07 under the ity of U-100 01:16: skin. [place] (NOVOLOG 39 Medical FLEXPEN Branch U-100 INSULIN) 100 unit/mL (3 mL) injection carvediloL 2020-0 Yes 25mg Take 25 mg U nivers 25 mg 3-07 by mouth 2 ity of tablet 01:16: (two) [place] 39 times Medical daily with Branch meals. proMETHazin 2020-0 Yes 12.5mg Take 12.5 Univers e 25 mg 3-07 mg by ity of tablet 01:16: mouth 3 [place] [address] (three) Medical times Branch daily as needed for Nausea and Vomiting (N/V). insulin 2020-0 Yes inject [facility] aspart 3-07 under the ity of U-100 01:16: skin. [place] (NOVOLOG 39 Medical FLEXPEN Branch U-100 INSULIN) 100 unit/mL (3 mL) injection carvediloL 2020-0 Yes 25mg Take 25 mg U nivers 25 mg 3-07 by mouth 2 ity of tablet 01:16: (two) [place] 39 times Medical daily with Branch meals. proMETHazin 2020-0 Yes 12.5mg Take 12.5 [facility] e 25 mg 3-07 mg by ity of tablet 01:16: mouth 3 [place] [address] (three) Medical times Branch daily as needed for Nausea and Vomiting (N/V). insulin 2020-0 Yes inject [facility] aspart 3-07 under the ity of U-100 01:16: skin. [place] (NOVOLOG 39 Medical FLEXPEN Branch U-100 INSULIN) 100 unit/mL (3 mL) injection carvediloL 2020-0 Yes 25mg Take 25 mg U nivers 25 mg 3-07 by mouth 2 ity of tablet 01:16: (two) [place] 39 times Medical daily with Branch meals. proMETHazin 2020-0 Yes 12.5mg Take 12.5 Univers e 25 mg 3-07 mg by ity of tablet 01:16: mouth 3 [place] 39 (three) Medical times Branch daily as needed for Nausea and Vomiting (N/V). insulin 2020-0 Yes inject [facility] aspart 3-07 under the ity of U-100 01:16: skin. [place] (NOVOLOG 39 Medical FLEXPEN Branch U-100 INSULIN) 100 unit/mL (3 mL) injection carvediloL 2020-0 Yes 25mg Take 25 mg U nivers 25 mg 3-07 by mouth 2 ity of tablet 01:16: (two) [place] 39 times Medical daily with Branch meals. proMETHazin 2020-0 Yes 12.5mg Take 12.5 Univers e 25 mg 3-07 mg by ity of tablet 01:16: mouth 3 [place] [address] (three) Medical times Branch daily as needed for Nausea and Vomiting (N/V). insulin 2020-0 Yes inject [facility] aspart 3-07 under the ity of U-100 01:16: skin. [place] (NOVOLOG 39 Medical FLEXPEN Branch U-100 INSULIN) 100 unit/mL (3 mL) injection carvediloL 2020-0 Yes 25mg Take 25 mg U nivers 25 mg 3-07 by mouth 2 ity of tablet 01:16: (two) [place] 39 times Medical daily with Branch meals. proMETHazin 2020-0 Yes 12.5mg Take 12.5 Univers e 25 mg 3-07 mg by ity of tablet 01:16: mouth 3 [place] [address] (three) Medical times Branch daily as needed for Nausea and Vomiting (N/V). insulin 2020-0 Yes inject [facility] aspart 3-07 under the ity of U-100 01:16: skin. [place] (NOVOLOG 39 Medical FLEXPEN Branch U-100 INSULIN) 100 unit/mL (3 mL) injection carvediloL 2020-0 Yes 25mg Take 25 mg U nivers 25 mg 3-07 by mouth 2 ity of tablet 01:16: (two) [place] 39 times Medical daily with Branch meals. proMETHazin 2020-0 Yes 12.5mg Take 12.5 [facility] e 25 mg 3-07 mg by ity of tablet 01:16: mouth 3 [place] [id number] (three) Medical times Branch daily as needed for Nausea and Vomiting (N/V). insulin 2020-0 Yes inject [facility] aspart 3-07 under the ity of U-100 01:16: skin. [place] (NOVOLOG 39 Medical FLEXPEN Branch U-100 INSULIN) 100 unit/mL (3 mL) injection carvediloL 2020-0 Yes 25mg Take 25 mg [facility] nivers 25 mg 3-07 by mouth 2 ity of tablet 01:16: (two) [place] 39 times Medical daily with Branch meals. proMETHazin 2020-0 Yes 12.5mg Take 12.5 [facility] e 25 mg 3-07 mg by ity of tablet 01:16: mouth 3 [place] 39 (three) Medical times Branch daily as needed for Nausea and Vomiting (N/V). insulin 2020-0 Yes inject [facility] aspart 3-07 under the ity of U-100 01:16: skin. [place] (NOVOLOG 39 Medical FLEXPEN Branch U-100 INSULIN) 100 unit/mL (3 mL) injection carvediloL 2020-0 Yes 25mg Take 25 mg [facility] nivers 25 mg 3-07 by mouth 2 ity of tablet 01:16: (two) [place] 39 times Medical daily with Branch meals. proMETHazin 2020-0 Yes 12.5mg Take 12.5 [facility] e 25 mg 3-07 mg by ity of tablet 01:16: mouth 3 [place] 39 (three) Medical times Branch daily as needed for Nausea and Vomiting (N/V). insulin 2020-0 Yes inject [facility] aspart 3-07 under the ity of U-100 01:16: skin. [place] (NOVOLOG 39 Medical FLEXPEN Branch U-100 INSULIN) 100 unit/mL (3 mL) injection carvediloL 2020-0 Yes 25mg Take 25 mg [facility] nivers 25 mg 3-07 by mouth 2 ity of tablet 01:16: (two) [place] 39 times Medical daily with Branch meals. proMETHazin 2020-0 Yes 12.5mg Take 12.5 [facility] e 25 mg 3-07 mg by ity of tablet 01:16: mouth 3 [place] 39 (three) Medical times Branch daily as needed for Nausea and Vomiting (N/V). insulin 2020-0 Yes inject [facility] aspart 3-07 under the ity of U-100 01:16: skin. [place] (NOVOLOG 39 Medical FLEXPEN Branch U-100 INSULIN) 100 unit/mL (3 mL) injection carvediloL 2020-0 Yes 25mg Take 25 mg [facility] nivers 25 mg 3-07 by mouth 2 ity of tablet 01:16: (two) [place] 39 times Medical daily with Branch meals. proMETHazin 2020-0 Yes 12.5mg Take 12.5 [facility] e 25 mg 3-07 mg by ity of tablet 01:16: mouth 3 [place] 39 (three) Medical times Branch daily as needed for Nausea and Vomiting (N/V). insulin 2020-0 Yes inject [facility] aspart 3-07 under the ity of U-100 01:16: skin. [place] (NOVOLOG 39 Medical FLEXPEN Branch U-100 INSULIN) 100 unit/mL (3 mL) injection carvediloL 2020-0 Yes 25mg Take 25 mg [facility] nivers 25 mg 3-07 by mouth 2 ity of tablet 01:16: (two) [place] 39 times Medical daily with Branch meals. proMETHazin 2020-0 Yes 12.5mg Take 12.5 [facility] e 25 mg 3-07 mg by ity of tablet 01:16: mouth 3 [place] 39 (three) Medical times Branch daily as needed for Nausea and Vomiting (N/V). insulin 2020-0 Yes inject [facility] aspart 3-07 under the ity of U-100 01:16: skin. [place] (NOVOLOG 39 Medical FLEXPEN Branch U-100 INSULIN) 100 unit/mL (3 mL) injection carvediloL 2020-0 Yes 25mg Take 25 mg [facility] nivers 25 mg 3-07 by mouth 2 ity of tablet 01:16: (two) [place] 39 times Medical daily with Branch meals. proMETHazin 2020-0 Yes 12.5mg Take 12.5 [facility] e 25 mg 3-07 mg by ity of tablet 01:16: mouth 3 [place] 39 (three) Medical times Branch daily as needed for Nausea and Vomiting (N/V). insulin 2020-0 Yes inject [facility] aspart 3-07 under the ity of U-100 01:16: skin. [place] (NOVOLOG 39 Medical FLEXPEN Branch U-100 INSULIN) 100 unit/mL (3 mL) injection carvediloL 2020-0 Yes 25mg Take 25 mg [facility] nivers 25 mg 3-07 by mouth 2 ity of tablet 01:16: (two) [place] 39 times Medical daily with Branch meals. proMETHazin 2020-0 Yes 12.5mg Take 12.5 [facility] e 25 mg 3-07 mg by ity of tablet 01:16: mouth 3 [place] 39 (three) Medical times Branch daily as needed for Nausea and Vomiting (N/V). insulin 2020-0 Yes inject [facility] aspart 3-07 under the ity of U-100 01:16: skin. [place] (NOVOLOG 39 Medical FLEXPEN Branch U-100 INSULIN) 100 unit/mL (3 mL) injection carvediloL 2020-0 Yes 25mg Take 25 mg [facility] nivers 25 mg 3-07 by mouth 2 ity of tablet 01:16: (two) [place] 39 times Medical daily with Branch meals. proMETHazin 2020-0 Yes 12.5mg Take 12.5 [facility] e 25 mg 3-07 mg by ity of tablet 01:16: mouth 3 [place] 39 (three) Medical times Branch daily as needed for Nausea and Vomiting (N/V). insulin 2020-0 Yes inject [facility] aspart 3-07 under the ity of U-100 01:16: skin. [place] (NOVOLOG 39 Medical FLEXPEN Branch U-100 INSULIN) 100 unit/mL (3 mL) injection carvediloL 2020-0 Yes 25mg Take 25 mg [facility] nivers 25 mg 3-07 by mouth 2 ity of tablet 01:16: (two) [place] 39 times Medical daily with Branch meals. proMETHazin 2020-0 Yes 12.5mg Take 12.5 [facility] e 25 mg 3-07 mg by ity of tablet 01:16: mouth 3 [place] [address] (three) Medical times Branch daily as needed for Nausea and Vomiting (N/V). insulin 2020-0 Yes inject [facility] aspart 3-07 under the ity of U-100 01:16: skin. [place] (NOVOLOG 39 Medical FLEXPEN Branch U-100 INSULIN) 100 unit/mL (3 mL) injection carvediloL 2020-0 Yes 25mg Take 25 mg [facility] nivers 25 mg 3-07 by mouth 2 ity of tablet 01:16: (two) [place] 39 times Medical daily with Branch meals. proMETHazin 2020-0 Yes 12.5mg Take 12.5 [facility] e 25 mg 3-07 mg by ity of tablet 01:16: mouth 3 [place] [address] (three) Medical times Branch daily as needed for Nausea and Vomiting (N/V). insulin 2020-0 Yes inject [facility] aspart 3-07 under the ity of U-100 01:16: skin. [place] (NOVOLOG 39 Medical FLEXPEN Branch U-100 INSULIN) 100 unit/mL (3 mL) injection carvediloL 2020-0 Yes 25mg Take 25 mg [facility] nivers 25 mg 3-07 by mouth 2 ity of tablet 01:16: (two) [place] 39 times Medical daily with Branch meals. proMETHazin 2020-0 Yes 12.5mg Take 12.5 [facility] e 25 mg 3-07 mg by ity of tablet 01:16: mouth 3 [place] 39 (three) Medical times Branch daily as needed for Nausea and Vomiting (N/V). insulin 2020-0 Yes inject [facility] aspart 3-07 under the ity of U-100 01:16: skin. [place] (NOVOLOG 39 Medical FLEXPEN Branch U-100 INSULIN) 100 unit/mL (3 mL) injection carvediloL 2020-0 Yes 25mg Take 25 mg [facility] nivers 25 mg 3-07 by mouth 2 ity of tablet 01:16: (two) [place] 39 times Medical daily with Branch meals. proMETHazin 2020-0 Yes 12.5mg Take 12.5 [facility] e 25 mg 3-07 mg by ity of tablet 01:16: mouth 3 [place] [address] (three) Medical times Branch daily as needed for Nausea and Vomiting (N/V). insulin 2020-0 Yes inject [facility] aspart 3-07 under the ity of U-100 01:16: skin. [place] (NOVOLOG 39 Medical FLEXPEN Branch U-100 INSULIN) 100 unit/mL (3 mL) injection carvediloL 2020-0 Yes 25mg Take 25 mg [facility] nivers 25 mg 3-07 by mouth 2 ity of tablet 01:16: (two) [place] 39 times Medical daily with Branch meals. proMETHazin 2020-0 Yes 12.5mg Take 12.5 [facility] e 25 mg 3-07 mg by ity of tablet 01:16: mouth 3 [place] [address] (three) Medical times Branch daily as needed for Nausea and Vomiting (N/V). insulin 2020-0 Yes inject [facility] aspart 3-07 under the ity of U-100 01:16: skin. [place] (NOVOLOG 39 Medical FLEXPEN Branch U-100 INSULIN) 100 unit/mL (3 mL) injection carvediloL 2020-0 Yes 25mg Take 25 mg [facility] nivers 25 mg 3-07 by mouth 2 ity of tablet 01:16: (two) [place] 39 times Medical daily with Branch meals. proMETHazin 2020-0 Yes 12.5mg Take 12.5 [facility] e 25 mg 3-07 mg by ity of tablet 01:16: mouth 3 [place] 39 (three) Medical times Branch daily as needed for Nausea and Vomiting (N/V). insulin 2020-0 Yes inject [facility] aspart 3-07 under the ity of U-100 01:16: skin. [place] (NOVOLOG 39 Medical FLEXPEN Branch U-100 INSULIN) 100 unit/mL (3 mL) injection carvediloL 2020-0 Yes 25mg Take 25 mg [facility] nivers 25 mg 3-07 by mouth 2 ity of tablet 01:16: (two) [place] 39 times Medical daily with Branch meals. proMETHazin 2020-0 Yes 12.5mg Take 12.5 [facility] e 25 mg 3-07 mg by ity of tablet 01:16: mouth 3 [place] [address] (three) Medical times Branch daily as needed for Nausea and Vomiting (N/V). insulin 2020-0 Yes inject [facility] aspart 3-07 under the ity of U-100 01:16: skin. [place] (NOVOLOG 39 Medical FLEXPEN Branch U-100 INSULIN) 100 unit/mL (3 mL) injection carvediloL 2020-0 Yes 25mg Take 25 mg [facility] nivers 25 mg 3-07 by mouth 2 ity of tablet 01:16: (two) [place] 39 times Medical daily with Branch meals. proMETHazin 2020-0 Yes 12.5mg Take 12.5 [facility] e 25 mg 3-07 mg by ity of tablet 01:16: mouth 3 [place] [address] (three) Medical times Branch daily as needed for Nausea and Vomiting (N/V). insulin 2020-0 Yes inject [facility] aspart 3-07 under the ity of U-100 01:16: skin. [place] (NOVOLOG 39 Medical FLEXPEN Branch U-100 INSULIN) 100 unit/mL (3 mL) injection carvediloL 2020-0 Yes 25mg Take 25 mg [facility] nivers 25 mg 3-07 by mouth 2 ity of tablet 01:16: (two) [place] 39 times Medical daily with Branch meals. proMETHazin 2020-0 Yes 12.5mg Take 12.5 [facility] e 25 mg 3-07 mg by ity of tablet 01:16: mouth 3 [place] 39 (three) Medical times Branch daily as needed for Nausea and Vomiting (N/V). insulin 2020-0 Yes inject [facility] aspart 3-07 under the ity of U-100 01:16: skin. [place] (NOVOLOG 39 Medical FLEXPEN Branch U-100 INSULIN) 100 unit/mL (3 mL) injection carvediloL 2020-0 Yes 25mg Take 25 mg [facility] nivers 25 mg 3-07 by mouth 2 ity of tablet 01:16: (two) [place] 39 times Medical daily with Branch meals. proMETHazin 2020-0 Yes 12.5mg Take 12.5 [facility] e 25 mg 3-07 mg by ity of tablet 01:16: mouth 3 [place] 39 (three) Medical times Branch daily as needed for Nausea and Vomiting (N/V). insulin 2020-0 Yes inject [facility] aspart 3-07 under the ity of U-100 01:16: skin. [place] (NOVOLOG 39 Medical FLEXPEN Branch U-100 INSULIN) 100 unit/mL (3 mL) injection carvediloL 2020-0 Yes 25mg Take 25 mg [facility] nivers 25 mg 3-07 by mouth 2 ity of tablet 01:16: (two) [place] 39 times Medical daily with Branch meals. proMETHazin 2020-0 Yes 12.5mg Take 12.5 [facility] e 25 mg 3-07 mg by ity of tablet 01:16: mouth 3 [place] 39 (three) Medical times Branch daily as needed for Nausea and Vomiting (N/V). insulin 2020-0 Yes inject [facility] aspart 3-07 under the ity of U-100 01:16: skin. [place] (NOVOLOG 39 Medical FLEXPEN Branch U-100 INSULIN) 100 unit/mL (3 mL) injection carvediloL 2020-0 Yes 25mg Take 25 mg [facility] nivers 25 mg 3-07 by mouth 2 ity of tablet 01:16: (two) [place] 39 times Medical daily with Branch meals. proMETHazin 2020-0 Yes 12.5mg Take 12.5 [facility] e 25 mg 3-07 mg by ity of tablet 01:16: mouth 3 [place] 39 (three) Medical times Branch daily as needed for Nausea and Vomiting (N/V). insulin 2020-0 Yes inject [facility] aspart 3-07 under the ity of U-100 01:16: skin. [place] (NOVOLOG 39 Medical FLEXPEN Branch U-100 INSULIN) 100 unit/mL (3 mL) injection carvediloL 2020-0 Yes 25mg Take 25 mg [facility] nivers 25 mg 3-07 by mouth 2 ity of tablet 01:16: (two) [place] 39 times Medical daily with Branch meals. proMETHazin 2020-0 Yes 12.5mg Take 12.5 [facility] e 25 mg 3-07 mg by ity of tablet 01:16: mouth 3 [place] 39 (three) Medical times Branch daily as needed for Nausea and Vomiting (N/V). insulin 2020-0 Yes inject [facility] aspart 3-07 under the ity of U-100 01:16: skin. [place] (NOVOLOG 39 Medical FLEXPEN Branch U-100 INSULIN) 100 unit/mL (3 mL) injection carvediloL 2020-0 Yes 25mg Take 25 mg [facility] nivers 25 mg 3-07 by mouth 2 ity of tablet 01:16: (two) [place] 39 times Medical daily with Branch meals. proMETHazin 2020-0 Yes 12.5mg Take 12.5 [facility] e 25 mg 3-07 mg by ity of tablet 01:16: mouth 3 [place] 39 (three) Medical times Branch daily as needed for Nausea and Vomiting (N/V). insulin 2020-0 Yes inject [facility] aspart 3-07 under the ity of U-100 01:16: skin. [place] (NOVOLOG 39 Medical FLEXPEN Branch U-100 INSULIN) 100 unit/mL (3 mL) injection carvediloL 2020-0 Yes 25mg Take 25 mg [facility] nivers 25 mg 3-07 by mouth 2 ity of tablet 01:16: (two) [place] 39 times Medical daily with Branch meals. proMETHazin 2020-0 Yes 12.5mg Take 12.5 [facility] e 25 mg 3-07 mg by ity of tablet 01:16: mouth 3 [place] 39 (three) Medical times Branch daily as needed for Nausea and Vomiting (N/V). insulin 2020-0 Yes inject [facility] aspart 3-07 under the ity of U-100 01:16: skin. [place] (NOVOLOG 39 Medical FLEXPEN Branch U-100 INSULIN) 100 unit/mL (3 mL) injection carvediloL 2020-0 Yes 25mg Take 25 mg [facility] nivers 25 mg 3-07 by mouth 2 ity of tablet 01:16: (two) [place] 39 times Medical daily with Branch meals. proMETHazin 2020-0 Yes 12.5mg Take 12.5 [facility] e 25 mg 3-07 mg by ity of tablet 01:16: mouth 3 [place] 39 (three) Medical times Branch daily as needed for Nausea and Vomiting (N/V). insulin 2020-0 Yes inject [facility] aspart 3-07 under the ity of U-100 01:16: skin. [place] (NOVOLOG 39 Medical FLEXPEN Branch U-100 INSULIN) 100 unit/mL (3 mL) injection carvediloL 2020-0 Yes 25mg Take 25 mg [facility] nivers 25 mg 3-07 by mouth 2 ity of tablet 01:16: (two) [place] 39 times Medical daily with Branch meals. proMETHazin 2020-0 Yes 12.5mg Take 12.5 [facility] e 25 mg 3-07 mg by ity of tablet 01:16: mouth 3 [place] 39 (three) Medical times Branch daily as needed for Nausea and Vomiting (N/V). insulin 2020-0 Yes inject [facility] aspart 3-07 under the ity of U-100 01:16: skin. [place] (NOVOLOG 39 Medical FLEXPEN Branch U-100 INSULIN) 100 unit/mL (3 mL) injection carvediloL 2020-0 Yes 25mg Take 25 mg [facility] nivers 25 mg 3-07 by mouth 2 ity of tablet 01:16: (two) [place] 39 times Medical daily with Branch meals. proMETHazin 2020-0 Yes 12.5mg Take 12.5 [facility] e 25 mg 3-07 mg by ity of tablet 01:16: mouth 3 [place] 39 (three) Medical times Branch daily as needed for Nausea and Vomiting (N/V). insulin 2020-0 Yes inject [facility] aspart 3-07 under the ity of U-100 01:16: skin. [place] (NOVOLOG 39 Medical FLEXPEN Branch U-100 INSULIN) 100 unit/mL (3 mL) injection carvediloL 2020-0 Yes 25mg Take 25 mg [facility] nivers 25 mg 3-07 by mouth 2 ity of tablet 01:16: (two) [place] 39 times Medical daily with Branch meals. proMETHazin 2020-0 Yes 12.5mg Take 12.5 [facility] e 25 mg 3-07 mg by ity of tablet 01:16: mouth 3 [place] [address] (three) Medical times Branch daily as needed for Nausea and Vomiting (N/V). insulin 2020-0 Yes inject [facility] aspart 3-07 under the ity of U-100 01:16: skin. [place] (NOVOLOG 39 Medical FLEXPEN Branch U-100 INSULIN) 100 unit/mL (3 mL) injection pregabalin 2020-0 2020- No 300mg Take 300 U nivers 300 mg 3-07 03-06 mg by ity of capsule 01:15: 00:00 mouth. [place] 02 :00 Medical Branch nitroglycer 2020- No .3mg Place 0.3 [facility] in 0.3 mg 04-20 03-06 mg under ity o f sublingual 01:14: 00:00 the tongue [place] tablet 27 :00 every 5 Medical (five) Branch minutes as needed for Chest pain. losartan-hy 2019- No Take by U nivers drochloroth 04-20 03-06 mouth. ity o f iazide 01:14: 00:00 [place] 100-25 mg 09 :00 Medical per tablet Branch insulin 2020- No inject [facility] lispro, 04-20 03-06 under the ity of human, 100 01:14: 00:00 skin. [place] unit/mL 06 :00 Medical injection Branch acetaminoph 2020- No 500mg Take 500 [facility] en (TYLENOL 04-20 03-06 mg by ity of EXTRA 01:12: 00:00 mouth [place] STRENGTH) 31 :00 every 6 Medical 500 mg (six) Branch tablet hours as needed for Pain. Insulin 2020-0 Yes inject [facility] Detemir 100 3-07 under the ity of unit/mL (3 00:22: skin. [place] mL) 08 Medical injection Branch Insulin 2020-0 Yes inject [facility] Detemir 100 3-07 under the ity of unit/mL (3 00:22: skin. [place] mL) 08 Medical injection Branch Insulin 2020-0 Yes inject [facility] Detemir 100 3-07 under the ity of unit/mL (3 00:22: skin. [place] mL) 08 Medical injection Branch Insulin 2020-0 Yes inject [facility] Detemir 100 3-07 under the ity of unit/mL (3 00:22: skin. [place] mL) 08 Medical injection Branch Insulin 2020-0 Yes inject [facility] Detemir 100 3-07 under the ity of unit/mL (3 00:22: skin. [place] mL) 08 Medical injection Branch Insulin 2020-0 Yes inject [facility] Detemir 100 3-07 under the ity of unit/mL (3 00:22: skin. [place] mL) 08 Medical injection Branch Insulin 2020-0 Yes inject [facility] Detemir 100 3-07 under the ity of unit/mL (3 00:22: skin. [place] mL) 08 Medical injection Branch Insulin 2020-0 Yes inject [facility] Detemir 100 3-07 under the ity of unit/mL (3 00:22: skin. [place] mL) 08 Medical injection Branch Insulin 2020-0 Yes inject [facility] Detemir 100 3-07 under the ity of unit/mL (3 00:22: skin. [place] mL) 08 Medical injection Branch Insulin 2020-0 Yes inject [facility] Detemir 100 3-07 under the ity of unit/mL (3 00:22: skin. [place] mL) 08 Medical injection Branch Insulin 2020-0 Yes inject [facility] Detemir 100 3-07 under the ity of unit/mL (3 00:22: skin. [place] mL) 08 Medical injection Branch Insulin 2020-0 Yes inject [facility] Detemir 100 3-07 under the ity of unit/mL (3 00:22: skin. [place] mL) 08 Medical injection Branch Insulin 2020-0 Yes inject [facility] Detemir 100 3-07 under the ity of unit/mL (3 00:22: skin. [place] mL) 08 Medical injection Branch Insulin 2020-0 Yes inject [facility] Detemir 100 3-07 under the ity of unit/mL (3 00:22: skin. [place] mL) 08 Medical injection Branch Insulin 2020-0 Yes inject [facility] Detemir 100 3-07 under the ity of unit/mL (3 00:22: skin. [place] mL) 08 Medical injection Branch Insulin 2020-0 Yes inject [facility] Detemir 100 3-07 under the ity of unit/mL (3 00:22: skin. [place] mL) 08 Medical injection Branch Insulin 2020-0 Yes inject [facility] Detemir 100 3-07 under the ity of unit/mL (3 00:22: skin. [place] mL) 08 Medical injection Branch Insulin 2020-0 Yes inject [facility] Detemir 100 3-07 under the ity of unit/mL (3 00:22: skin. [place] mL) 08 Medical injection Branch Insulin 2020-0 Yes inject [facility] Detemir 100 3-07 under the ity of unit/mL (3 00:22: skin. [place] mL) 08 Medical injection Branch Insulin 2020-0 Yes inject [facility] Detemir 100 3-07 under the ity of unit/mL (3 00:22: skin. [place] mL) 08 Medical injection Branch pregabalin 2020-0 Yes 300mg Take 300 Un osbaldo 300 mg 3-07 mg by ity of capsule 00:22: mouth. [place] 08 Medical Branch acetaminoph 2020-0 Yes 500mg Take 500 U nivers en (TYLENOL 3-07 mg by ity of EXTRA 00:22: mouth [place] STRENGTH) 08 every 6 Medical 500 mg (six) Branch tablet hours as needed for Pain. Insulin 2020-0 Yes inject [facility] Detemir 100 3-07 under the ity of unit/mL (3 00:22: skin. [place] mL) 08 Medical injection Branch carvediloL 2020-0 Yes 25mg Take 25 mg U nivers 25 mg 3-07 by mouth. ity of tablet 00:22: [place] 08 Medical Branch proMETHazin 2020-0 Yes 12.5mg Take 12.5 [facility] e 25 mg 3-07 mg by ity of tablet 00:22: mouth [place] [id number] every 6 Medical (six) Branch hours as needed for Nausea and Vomiting (N/V). insulin 2020-0 Yes inject [facility] aspart 3-07 under the ity of U-100 00:22: skin. [place] (NOVOLOG 08 Medical FLEXPEN Branch U-100 INSULIN) 100 unit/mL (3 mL) injection Insulin 2020-0 Yes inject [facility] Detemir 100 3-07 under the ity of unit/mL (3 00:22: skin. [place] mL) 08 Medical injection Branch Insulin 2020-0 Yes inject [facility] Detemir 100 3-07 under the ity of unit/mL (3 00:22: skin. [place] mL) 08 Medical injection Branch Insulin 2020-0 Yes inject [facility] Detemir 100 3-07 under the ity of unit/mL (3 00:22: skin. [place] mL) 08 Medical injection Branch Insulin 2020-0 Yes inject [facility] Detemir 100 3-07 under the ity of unit/mL (3 00:22: skin. [place] mL) 08 Medical injection Branch Insulin 2020-0 Yes inject [facility] Detemir 100 3-07 under the ity of unit/mL (3 00:22: skin. [place] mL) 08 Medical injection Branch Insulin 2020-0 Yes inject [facility] Detemir 100 3-07 under the ity of unit/mL (3 00:22: skin. [place] mL) 08 Medical injection Branch Insulin 2020-0 Yes inject [facility] Detemir 100 3-07 under the ity of unit/mL (3 00:22: skin. [place] mL) 08 Medical injection Branch Insulin 2020-0 Yes inject [facility] Detemir 100 3-07 under the ity of unit/mL (3 00:22: skin. [place] mL) 08 Medical injection Branch Insulin 2020-0 Yes inject [facility] Detemir 100 3-07 under the ity of unit/mL (3 00:22: skin. [place] mL) 08 Medical injection Branch Insulin 2020-0 Yes inject [facility] Detemir 100 3-07 under the ity of unit/mL (3 00:22: skin. [place] mL) 08 Medical injection Branch Insulin 2020-0 Yes inject [facility] Detemir 100 3-07 under the ity of unit/mL (3 00:22: skin. [place] mL) 08 Medical injection Branch Insulin 2020-0 Yes inject [facility] Detemir 100 3-07 under the ity of unit/mL (3 00:22: skin. [place] mL) 08 Medical injection Branch Insulin 2020-0 Yes inject [facility] Detemir 100 3-07 under the ity of unit/mL (3 00:22: skin. [place] mL) 08 Medical injection Branch Insulin 2020-0 Yes inject [facility] Detemir 100 3-07 under the ity of unit/mL (3 00:22: skin. [place] mL) 08 Medical injection Branch Insulin 2020-0 Yes inject [facility] Detemir 100 3-07 under the ity of unit/mL (3 00:22: skin. [place] mL) 08 Medical injection Branch Insulin 2020-0 Yes inject [facility] Detemir 100 3-07 under the ity of unit/mL (3 00:22: skin. [place] mL) 08 Medical injection Branch Insulin 2020-0 Yes inject [facility] Detemir 100 3-07 under the ity of unit/mL (3 00:22: skin. [place] mL) 08 Medical injection Branch Insulin 2020-0 Yes inject [facility] Detemir 100 3-07 under the ity of unit/mL (3 00:22: skin. [place] mL) 08 Medical injection Branch Insulin 2020-0 Yes inject [facility] Detemir 100 3-07 under the ity of unit/mL (3 00:22: skin. [place] mL) 08 Medical injection Branch Insulin 2020-0 Yes inject [facility] Detemir 100 3-07 under the ity of unit/mL (3 00:22: skin. [place] mL) 08 Medical injection Branch Insulin 2020-0 Yes inject [facility] Detemir 100 3-07 under the ity of unit/mL (3 00:22: skin. [place] mL) 08 Medical injection Branch Insulin 2020-0 Yes inject [facility] Detemir 100 3-07 under the ity of unit/mL (3 00:22: skin. [place] mL) 08 Medical injection Branch Insulin 2020-0 Yes inject [facility] Detemir 100 3-07 under the ity of unit/mL (3 00:22: skin. [place] mL) 08 Medical injection Branch Insulin 2020-0 Yes inject [facility] Detemir 100 3-07 under the ity of unit/mL (3 00:22: skin. [place] mL) 08 Medical injection Branch Insulin 2020-0 Yes inject [facility] Detemir 100 3-07 under the ity of unit/mL (3 00:22: skin. [place] mL) 08 Medical injection Branch Insulin 2020-0 Yes inject [facility] Detemir 100 3-07 under the ity of unit/mL (3 00:22: skin. [place] mL) 08 Medical injection Branch Insulin 2020-0 Yes inject [facility] Detemir 100 3-07 under the ity of unit/mL (3 00:22: skin. [place] mL) 08 Medical injection Branch Insulin 2020-0 Yes inject [facility] Detemir 100 3-07 under the ity of unit/mL (3 00:22: skin. [place] mL) 08 Medical injection Branch Insulin 2020-0 Yes inject [facility] Detemir 100 3-07 under the ity of unit/mL (3 00:22: skin. [place] mL) 08 Medical injection Branch Insulin 2020-0 Yes inject [facility] Detemir 100 3-07 under the ity of unit/mL (3 00:22: skin. [place] mL) 08 Medical injection Branch Insulin 2020-0 Yes inject [facility] Detemir 100 3-07 under the ity of unit/mL (3 00:22: skin. [place] mL) 08 Medical injection Branch Insulin 2020-0 Yes inject [facility] Detemir 100 3-07 under the ity of unit/mL (3 00:22: skin. [place] mL) 08 Medical injection Branch Insulin 2020-0 Yes inject [facility] Detemir 100 3-07 under the ity of unit/mL (3 00:22: skin. [place] mL) 08 Medical injection Branch gabapentin 2020-0 Yes 100mg Take 100 Un osbaldo 100 mg 3-07 mg by ity of capsule 00:13: mouth 2 [place] 40 (two) Medical times Branch daily. gabapentin 2020-0 Yes 100mg Take 100 Un osbaldo 100 mg 3-07 mg by ity of capsule 00:13: mouth 2 [place] 40 (two) Medical times Branch daily. gabapentin 2020-0 Yes 100mg Take 100 Un osbaldo 100 mg 3-07 mg by ity of capsule 00:13: mouth 2 [place] 40 (two) Medical times Branch daily. gabapentin 2020-0 Yes 100mg Take 100 Un osbaldo 100 mg 3-07 mg by ity of capsule 00:13: mouth 2 [place] 40 (two) Medical times Branch daily. gabapentin 2020-0 Yes 100mg Take 100 Un osbaldo 100 mg 3-07 mg by ity of capsule 00:13: mouth 2 [place] 40 (two) Medical times Branch daily. gabapentin 2020-0 Yes 100mg Take 100 Un [place] 100 mg 3-07 mg by ity of capsule 00:13: mouth [address] [place] [address] 40 (two) Medical times Branch daily. gabapentin 2020-0 Yes 100mg Take 100 Un os[place] 100 mg 3-07 mg by ity of capsule 00:13: mouth [address] [place] [address] 40 (two) Medical times Branch daily. gabapentin 2020-0 Yes 100mg Take 100 Un [place] 100 mg 3-07 mg by ity of capsule 00:13: mouth [address] [place] [address] 40 (two) Medical times Branch daily. gabapentin 2020-0 Yes 100mg Take 100 Un [place] 100 mg 3-07 mg by ity of capsule 00:13: mouth [address] [place] [address] 40 (two) Medical times Branch daily. gabapentin 2020-0 Yes 100mg Take 100 Un [place] 100 mg 3-07 mg by ity of capsule 00:13: mouth [address] [place] [address] 40 (two) Medical times Branch daily. gabapentin 2020-0 Yes 100mg Take 100 Un [place] 100 mg 3-07 mg by ity of capsule 00:13: mouth 2 [place] 40 (two) Medical times Branch daily. gabapentin 2020-0 Yes 100mg Take 100 Un [place] 100 mg 3-07 mg by ity of capsule 00:13: mouth [address] [place] [address] 40 (two) Medical times Branch daily. gabapentin 2020-0 Yes 100mg Take 100 Un osbaldo 100 mg 3-07 mg by ity of capsule 00:13: mouth 2 [place] 40 (two) Medical times Branch daily. gabapentin 2020-0 Yes 100mg Take 100 Un [place] 100 mg 3-07 mg by ity of capsule 00:13: mouth 2 [place] 40 (two) Medical times Branch daily. gabapentin 2020-0 Yes 100mg Take 100 Un [place] 100 mg 3-07 mg by ity of capsule 00:13: mouth 2 [place] 40 (two) Medical times Branch daily. gabapentin 2020-0 Yes 100mg Take 100 Un [place] 100 mg 3-07 mg by ity of capsule 00:13: mouth 2 [place] 40 (two) Medical times Branch daily. gabapentin 2020-0 Yes 100mg Take 100 Un [place] 100 mg 3-07 mg by ity of capsule 00:13: mouth 2 [place] 40 (two) Medical times Branch daily. gabapentin 2020-0 Yes 100mg Take 100 Un [facility] 100 mg 3-07 mg by ity of capsule 00:13: mouth 2 [place] 40 (two) Medical times Branch daily. gabapentin 2020-0 Yes 100mg Take 100 Un [place] 100 mg 3-07 mg by ity of capsule 00:13: mouth 2 [place] 40 (two) Medical times Branch daily. gabapentin 2020-0 Yes 100mg Take 100 Un [place] 100 mg 3-07 mg by ity of capsule 00:13: mouth [address] [place] [address] 40 (two) Medical times Branch daily. gabapentin 2020-0 Yes 100mg Take 100 Un [place] 100 mg 3-07 mg by ity of capsule 00:13: mouth [address] [place] [address] 40 (two) Medical times Branch daily. gabapentin 2020-0 Yes 100mg Take 100 Un [place] 100 mg 3-07 mg by ity of capsule 00:13: mouth [address] [place] [address] 40 (two) Medical times Branch daily. gabapentin 2020-0 Yes 100mg Take 100 Un [facility] 100 mg 3-07 mg by ity of capsule 00:13: mouth [address] [place] [address] 40 (two) Medical times Branch daily. gabapentin 2020-0 Yes 100mg Take 100 Un [facility] 100 mg 3-07 mg by ity of capsule 00:13: mouth 2 [place] 40 (two) Medical times Branch daily. gabapentin 2020-0 Yes 100mg Take 100 Un [facility] 100 mg 3-07 mg by ity of capsule 00:13: mouth 2 [place] 40 (two) Medical times Branch daily. gabapentin 2020-0 Yes 100mg Take 100 Un [facility] 100 mg 3-07 mg by ity of capsule 00:13: mouth 2 [place] 40 (two) Medical times Branch daily. gabapentin 2020-0 Yes 100mg Take 100 Un [facility] 100 mg 3-07 mg by ity of capsule 00:13: mouth 2 [place] 40 (two) Medical times Branch daily. gabapentin 2020-0 Yes 100mg Take 100 Un [facility] 100 mg 3-07 mg by ity of capsule 00:13: mouth 2 [place] 40 (two) Medical times Branch daily. gabapentin 2020-0 Yes 100mg Take 100 Un [facility] 100 mg 3-07 mg by ity of capsule 00:13: mouth 2 [place] 40 (two) Medical times Branch daily. gabapentin 2020-0 Yes 100mg Take 100 Un [facility] 100 mg 3-07 mg by ity of capsule 00:13: mouth 2 [place] 40 (two) Medical times Branch daily. gabapentin 2020-0 Yes 100mg Take 100 Un [facility] 100 mg 3-07 mg by ity of capsule 00:13: mouth 2 [place] 40 (two) Medical times Branch daily. gabapentin 2020-0 Yes 100mg Take 100 Un [facility] 100 mg 3-07 mg by ity of capsule 00:13: mouth 2 [place] 40 (two) Medical times Branch daily. gabapentin 2020-0 Yes 100mg Take 100 Un [place] 100 mg 3-07 mg by ity of capsule 00:13: mouth [address] [place] [address] 40 (two) Medical times Branch daily. gabapentin 2020-0 Yes 100mg Take 100 Un [facility] 100 mg 3-07 mg by ity of capsule 00:13: mouth 2 [place] 40 (two) Medical times Branch daily. gabapentin 2020-0 Yes 100mg Take 100 Un [facility] 100 mg 3-07 mg by ity of capsule 00:13: mouth 2 [place] 40 (two) Medical times Branch daily. gabapentin 2020-0 Yes 100mg Take 100 Un [facility] 100 mg 3-07 mg by ity of capsule 00:13: mouth 2 [place] 40 (two) Medical times Branch daily. gabapentin 2020-0 Yes 100mg Take 100 Un [place] 100 mg 3-07 mg by ity of capsule 00:13: mouth 2 [place] 40 (two) Medical times Branch daily. gabapentin 2020-0 Yes 100mg Take 100 Un [facility] 100 mg 3-07 mg by ity of capsule 00:13: mouth 2 [place] 40 (two) Medical times Branch daily. gabapentin 2020-0 Yes 100mg Take 100 Un [facility] 100 mg 3-07 mg by ity of capsule 00:13: mouth 2 [place] 40 (two) Medical times Branch daily. gabapentin 2020-0 Yes 100mg Take 100 Un [facility] 100 mg 3-07 mg by ity of capsule 00:13: mouth 2 [place] 40 (two) Medical times Branch daily. gabapentin 2020-0 Yes 100mg Take 100 Un [facility] 100 mg 3-07 mg by ity of capsule 00:13: mouth 2 [place] 40 (two) Medical times Branch daily. gabapentin 2020-0 Yes 100mg Take 100 Un [facility] 100 mg 3-07 mg by ity of capsule 00:13: mouth 2 [place] 40 (two) Medical times Branch daily. gabapentin 2020-0 Yes 100mg Take 100 Un [facility] 100 mg 3-07 mg by ity of capsule 00:13: mouth 2 [place] 40 (two) Medical times Branch daily. gabapentin 2020-0 Yes 100mg Take 100 Un [facility] 100 mg 3-07 mg by ity of capsule 00:13: mouth 2 [place] 40 (two) Medical times Branch daily. gabapentin 2020-0 Yes 100mg Take 100 Un [place] 100 mg 3-07 mg by ity of capsule 00:13: mouth [address] [place] [address] 40 (two) Medical times Branch daily. gabapentin 2020-0 Yes 100mg Take 100 Un [facility] 100 mg 3-07 mg by ity of capsule 00:13: mouth [address] [place] [address] 40 (two) Medical times Branch daily. gabapentin 2020-0 Yes 100mg Take 100 Un [facility] 100 mg 3-07 mg by ity of capsule 00:13: mouth [address] [place] [address] 40 (two) Medical times Branch daily. gabapentin 2020-0 Yes 100mg Take 100 Un [facility] 100 mg 3-07 mg by ity of capsule 00:13: mouth 2 [place] 40 (two) Medical times Branch daily. gabapentin 2020-0 Yes 100mg Take 100 Un [facility] 100 mg 3-07 mg by ity of capsule 00:13: mouth 2 [place] 40 (two) Medical times Branch daily. gabapentin 2020-0 Yes 100mg Take 100 Un [facility] 100 mg 3-07 mg by ity of capsule 00:13: mouth 2 [place] 40 (two) Medical times Branch daily. gabapentin 2020-0 Yes 100mg Take 100 Un [facility] 100 mg 3-07 mg by ity of capsule 00:13: mouth 2 [place] 40 (two) Medical times Branch daily. gabapentin 2020-0 Yes 100mg Take 100 Un [facility] 100 mg 3-07 mg by ity of capsule 00:13: mouth 2 [place] 40 (two) Medical times Branch daily. gabapentin 2020-0 Yes 100mg Take 100 Un [facility] 100 mg 3-07 mg by ity of capsule 00:13: mouth 2 [place] 40 (two) Medical times Branch daily. gabapentin 2020-0 Yes 100mg Take 100 Un [facility] 100 mg 3-07 mg by ity of capsule 00:13: mouth 2 [place] 40 (two) Medical times Branch daily. hydrALAZINE 2020-0 Yes 50mg Take 50 mg [facility] 50 mg 3-07 by mouth 3 ity of tablet 00:01: (three) [place] 47 times Medical daily with Branch meals. hydrALAZINE 2020-0 Yes 50mg Take 50 mg [facility] 50 mg 3-07 by mouth 3 ity of tablet 00:01: ([facility]) [place] 47 times Medical daily with Branch meals. hydrALAZINE 2020-0 Yes 50mg Take 50 mg [facility] 50 mg 3-07 by mouth 3 ity of tablet 00:01: ([facility]) [place] 47 times Medical daily with Branch meals. hydrALAZINE 2020-0 Yes 50mg Take 50 mg [facility] 50 mg 3-07 by mouth 3 ity of tablet 00:01: ([facility]) [place] [address] times Medical daily with Branch meals. hydrALAZINE 2020-0 Yes 50mg Take 50 mg [facility] 50 mg 3-07 by mouth 3 ity of tablet 00:01: ([facility]) [place] [address] times Medical daily with Branch meals. hydrALAZINE 2020-0 Yes 50mg Take 50 mg [facility] 50 mg 3-07 by mouth 3 ity of tablet 00:01: ([facility]) [place] 47 times Medical daily with Branch meals. hydrALAZINE 2020-0 Yes 50mg Take 50 mg [facility] 50 mg 3-07 by mouth 3 ity of tablet 00:01: ([facility]) [place] 47 times Medical daily with Branch meals. hydrALAZINE 2020-0 Yes 50mg Take 50 mg [facility] 50 mg 3-07 by mouth 3 ity of tablet 00:01: ([facility]) [place] [address] times Medical daily with Branch meals. hydrALAZINE 2020-0 Yes 50mg Take 50 mg [facility] 50 mg 3-07 by mouth 3 ity of tablet 00:01: ([facility]) [place] [address] times Medical daily with Branch meals. hydrALAZINE 2020-0 Yes 50mg Take 50 mg [facility] 50 mg 3-07 by mouth 3 ity of tablet 00:01: ([facility]) [place] [address] times Medical daily with Branch meals. hydrALAZINE 2020-0 Yes 50mg Take 50 mg [facility] 50 mg 3-07 by mouth 3 ity of tablet 00:01: (three) [place] 47 times Medical daily with Branch meals. hydrALAZINE 2020-0 Yes 50mg Take 50 mg [facility] 50 mg 3-07 by mouth 3 ity of tablet 00:01: (three) [place] 47 times Medical daily with Branch meals. hydrALAZINE 2020-0 Yes 50mg Take 50 mg [facility] 50 mg 3-07 by mouth 3 ity of tablet 00:01: ([facility]) [place] 47 times Medical daily with Branch meals. hydrALAZINE 2020-0 Yes 50mg Take 50 mg [facility] 50 mg 3-07 by mouth 3 ity of tablet 00:01: ([facility]) [place] 47 times Medical daily with Branch meals. hydrALAZINE 2020-0 Yes 50mg Take 50 mg [facility] 50 mg 3-07 by mouth 3 ity of tablet 00:01: ([facility]) [place] 47 times Medical daily with Branch meals. hydrALAZINE 2020-0 Yes 50mg Take 50 mg [facility] 50 mg 3-07 by mouth 3 ity of tablet 00:01: ([facility]) [place] 47 times Medical daily with Branch meals. hydrALAZINE 2020-0 Yes 50mg Take 50 mg [facility] 50 mg 3-07 by mouth 3 ity of tablet 00:01: ([facility]) [place] 47 times Medical daily with Branch meals. hydrALAZINE 2020-0 Yes 50mg Take 50 mg [facility] 50 mg 3-07 by mouth 3 ity of tablet 00:01: ([facility]) [place] 47 times Medical daily with Branch meals. hydrALAZINE 2020-0 Yes 50mg Take 50 mg [facility] 50 mg 3-07 by mouth 3 ity of tablet 00:01: ([facility]) [place] 47 times Medical daily with Branch meals. hydrALAZINE 2020-0 Yes 50mg Take 50 mg [facility] 50 mg 3-07 by mouth 3 ity of tablet 00:01: (three) [place] 47 times Medical daily with Branch meals. hydrALAZINE 2020-0 Yes 50mg Take 50 mg [facility] 50 mg 3-07 by mouth 3 ity of tablet 00:01: ([facility]) [place] 47 times Medical daily with Branch meals. losartan-hy 2020-0 Yes Take by Un osbaldo drochloroth 3-07 mouth. ity of iazide 00:01: [place] 100-25 mg 47 Medical per tablet Branch hydrALAZINE 2020-0 Yes 50mg Take 50 mg [facility] 50 mg 3-07 by mouth 3 ity of tablet 00:01: ([facility]) [place] 47 times Medical daily with Branch meals. hydrALAZINE 2020-0 Yes 50mg Take 50 mg [facility] 50 mg 3-07 by mouth 3 ity of tablet 00:01: ([facility]) [place] 47 times Medical daily with Branch meals. hydrALAZINE 2020-0 Yes 50mg Take 50 mg [facility] 50 mg 3-07 by mouth 3 ity of tablet 00:01: ([facility]) [place] 47 times Medical daily with Branch meals. hydrALAZINE 2020-0 Yes 50mg Take 50 mg [facility] 50 mg 3-07 by mouth 3 ity of tablet 00:01: ([facility]) [place] 47 times Medical daily with Branch meals. hydrALAZINE 2020-0 Yes 50mg Take 50 mg [facility] 50 mg 3-07 by mouth 3 ity of tablet 00:01: ([facility]) [place] [address] times Medical daily with Branch meals. hydrALAZINE 2020-0 Yes 50mg Take 50 mg [facility] 50 mg 3-07 by mouth 3 ity of tablet 00:01: ([facility]) [place] [address] times Medical daily with Branch meals. hydrALAZINE 2020-0 Yes 50mg Take 50 mg [facility] 50 mg 3-07 by mouth 3 ity of tablet 00:01: ([facility]) [place] [address] times Medical daily with Branch meals. hydrALAZINE 2020-0 Yes 50mg Take 50 mg [facility] 50 mg 3-07 by mouth 3 ity of tablet 00:01: ([facility]) [place] [address] times Medical daily with Branch meals. hydrALAZINE 2020-0 Yes 50mg Take 50 mg [facility] 50 mg 3-07 by mouth 3 ity of tablet 00:01: ([facility]) [place] [address] times Medical daily with Branch meals. hydrALAZINE 2020-0 Yes 50mg Take 50 mg [facility] 50 mg 3-07 by mouth 3 ity of tablet 00:01: ([facility]) [place] [address] times Medical daily with Branch meals. hydrALAZINE 2020-0 Yes 50mg Take 50 mg [facility] 50 mg 3-07 by mouth 3 ity of tablet 00:01: ([facility]) [place] [address] times Medical daily with Branch meals. hydrALAZINE 2020-0 Yes 50mg Take 50 mg [facility] 50 mg 3-07 by mouth 3 ity of tablet 00:01: ([facility]) [place] [address] times Medical daily with Branch meals. hydrALAZINE 2020-0 Yes 50mg Take 50 mg [facility] 50 mg 3-07 by mouth 3 ity of tablet 00:01: (three) [place] 47 times Medical daily with Branch meals. hydrALAZINE 2020-0 Yes 50mg Take 50 mg [facility] 50 mg 3-07 by mouth 3 ity of tablet 00:01: (three) [place] 47 times Medical daily with Branch meals. hydrALAZINE 2020-0 Yes 50mg Take 50 mg [facility] 50 mg 3-07 by mouth 3 ity of tablet 00:01: ([facility]) [place] 47 times Medical daily with Branch meals. hydrALAZINE 2020-0 Yes 50mg Take 50 mg [facility] 50 mg 3-07 by mouth 3 ity of tablet 00:01: ([facility]) [place] 47 times Medical daily with Branch meals. hydrALAZINE 2020-0 Yes 50mg Take 50 mg [facility] 50 mg 3-07 by mouth 3 ity of tablet 00:01: ([facility]) [place] [address] times Medical daily with Branch meals. hydrALAZINE 2020-0 Yes 50mg Take 50 mg [facility] 50 mg 3-07 by mouth 3 ity of tablet 00:01: ([facility]) [place] [address] times Medical daily with Branch meals. hydrALAZINE 2020-0 Yes 50mg Take 50 mg [facility] 50 mg 3-07 by mouth 3 ity of tablet 00:01: ([facility]) [place] [address] times Medical daily with Branch meals. hydrALAZINE 2020-0 Yes 50mg Take 50 mg [facility] 50 mg 3-07 by mouth 3 ity of tablet 00:01: ([facility]) [place] 47 times Medical daily with Branch meals. hydrALAZINE 2020-0 Yes 50mg Take 50 mg [facility] 50 mg 3-07 by mouth 3 ity of tablet 00:01: (three) [place] 47 times Medical daily with Branch meals. hydrALAZINE 2020-0 Yes 50mg Take 50 mg [facility] 50 mg 3-07 by mouth 3 ity of tablet 00:01: (three) [place] 47 times Medical daily with Branch meals. hydrALAZINE 2020-0 Yes 50mg Take 50 mg [facility] 50 mg 3-07 by mouth 3 ity of tablet 00:01: (three) [place] 47 times Medical daily with Branch meals. hydrALAZINE 2020-0 Yes 50mg Take 50 mg [facility] 50 mg 3-07 by mouth 3 ity of tablet 00:01: ([facility]) [place] 47 times Medical daily with Branch meals. hydrALAZINE 2020-0 Yes 50mg Take 50 mg [facility] 50 mg 3-07 by mouth 3 ity of tablet 00:01: (three) [place] 47 times Medical daily with Branch meals. hydrALAZINE 2020-0 Yes 50mg Take 50 mg [facility] 50 mg 3-07 by mouth 3 ity of tablet 00:01: (three) [place] 47 times Medical daily with Branch meals. hydrALAZINE 2020-0 Yes 50mg Take 50 mg [facility] 50 mg 3-07 by mouth 3 ity of tablet 00:01: (three) [place] 47 times Medical daily with Branch meals. hydrALAZINE 2020-0 Yes 50mg Take 50 mg [facility] 50 mg 3-07 by mouth 3 ity of tablet 00:01: (three) [place] 47 times Medical daily with Branch meals. hydrALAZINE 2020-0 Yes 50mg Take 50 mg [facility] 50 mg 3-07 by mouth 3 ity of tablet 00:01: (three) [place] 47 times Medical daily with Branch meals. hydrALAZINE 2020-0 Yes 50mg Take 50 mg [facility] 50 mg 3-07 by mouth 3 ity of tablet 00:01: (three) [place] 47 times Medical daily with Branch meals. hydrALAZINE 2020-0 Yes 50mg Take 50 mg [facility] 50 mg 3-07 by mouth 3 ity of tablet 00:01: (three) [place] 47 times Medical daily with Branch meals. hydrALAZINE 2020-0 Yes 50mg Take 50 mg [facility] 50 mg 3-07 by mouth 3 ity of tablet 00:01: (three) [place] 47 times Medical daily with Branch meals. hydrALAZINE 2020-0 Yes 50mg Take 50 mg [facility] 50 mg 3-07 by mouth 3 ity of tablet 00:01: (three) [place] 47 times Medical daily with Branch meals. nitroglycer 2020-[address] 0.3 U nivers in 0.3 mg 3-06 mg under ity of sublingual 23:52: the tongue [place] tablet 42 every 5 Medical (five) Branch minutes as needed for Chest pain. insulin 2020-0 Yes 60U inject 60 Unive rs detemir 3-06 Units ity of U-100 100 15:52: under the [place] unit/mL 04 skin. Medical injection Branch insulin 2020-0 Yes inject [facility] lispro, 3-06 under the ity of human, 100 15:52: skin. [place] unit/mL 04 Medical injection Branch insulin 2020-0 Yes 60U inject 60 Unive rs detemir 3-06 Units ity of U-100 100 15:52: under the [place] unit/mL 04 skin. Medical injection Branch insulin 2020-0 Yes inject [facility] lispro, 3-06 under the ity of human, 100 15:52: skin. [place] unit/mL 04 Medical injection Branch insulin 2020-0 Yes inject [facility] lispro, 3-06 under the ity of human, 100 15:52: skin. [place] unit/mL 04 Medical injection Branch carvedilol 2020-0 2020- No 25mg Take 25 mg [facility] 12.5 mg 3- 03-06 by mouth. ity of tablet 15:51: 00:00 [place] 24 :00 Medical Branch aspirin-nhi 2020-0 2020- No 1{tbl} Take 1 U nivers taminophen- 3-06 03-06 tablet by it y of caffeine 15:51: 00:00 mouth [place] (EXCEDRIN 24 :00 every 6 Medical MIGRAINE) (six) Branch 250-250-65 hours as mg per needed for tablet Pain. carvedilol 2020-0 2020- No 25mg Take 25 mg [facility] 12.5 mg 3- 03-06 by mouth. ity of tablet 15:51: 00:00 [place] 24 :00 Medical Branch aspirin-nhi 2020-0 2020- No 1{tbl} Take 1 U nivers taminophen- 3-06 03-06 tablet by it y of caffeine 15:51: 00:00 mouth [place] (EXCEDRIN 24 :00 every 6 Medical MIGRAINE) (six) Branch 250-250-65 hours as mg per needed for tablet Pain. carvedilol 2020-0 2020- No 25mg Take 25 mg [facility] 12.5 mg 3-06 03-06 by mouth. ity of tablet 15:51: 00:00 [place] 24 :00 Medical Branch aspirin-nhi 2020-0 2020- No 1{tbl} Take 1 U nivers taminophen- 3-06 03-06 tablet by it y of caffeine 15:51: 00:00 mouth [place] (EXCEDRIN 24 :00 every 6 Medical MIGRAINE) (six) Branch 250-250-65 hours as mg per needed for tablet Pain. carvedilol 2020-0 2020- No 25mg Take 25 mg [facility] 12.5 mg 3-06 03-06 by mouth. ity of tablet 15:51: 00:00 [place] 24 :00 Medical Branch aspirin-nhi 2020-0 2020- No 1{tbl} Take 1 U nivers taminophen- 3-06 03-06 tablet by it y of caffeine 15:51: 00:00 mouth [place] (EXCEDRIN 24 :00 every 6 Medical MIGRAINE) (six) Branch 250-250-65 hours as mg per needed for tablet Pain. SERTraline 2020-0 Yes [id number] 25mg Take 1 U nivers 25 mg 3-06 tablet by ity of tablet 00:00: mouth [place] 00 daily. Medical Branch SERTraline 2019-0 Yes [id number] 25mg Take 1 U nivers 25 mg 3-06 tablet by ity of tablet 00:00: mouth [place] 00 daily. Medical Branch SERTraline 2019-0 Yes [id number] 25mg Take 1 U nivers 25 mg 3-06 tablet by ity of tablet 00:00: mouth [place] 00 daily. Medical Branch SERTraline 2019-0 Yes [id number] 25mg Take 1 U nivers 25 mg 3-06 tablet by ity of tablet 00:00: mouth [place] 00 daily. Medical Branch SERTraline 2020-0 Yes [id number] 25mg Take 1 U nivers 25 mg 3-06 tablet by ity of tablet 00:00: mouth [place] 00 daily. Medical Branch SERTraline 2020-0 Yes [id number] 25mg Take 1 U nivers 25 mg 3-06 tablet by ity of tablet 00:00: mouth [place] 00 daily. Medical Branch SERTraline 2020-0 Yes [id number] 25mg Take 1 U nivers 25 mg 3-06 tablet by ity of tablet 00:00: mouth [place] 00 daily. Medical Branch SERTraline 2020-0 Yes [id number] 25mg Take 1 U nivers 25 mg 3-06 tablet by ity of tablet 00:00: mouth [place] 00 daily. Medical Branch SERTraline 2020-0 Yes [id number] 25mg Take 1 U nivers 25 mg 3-06 tablet by ity of tablet 00:00: mouth [place] 00 daily. Medical Branch SERTraline 2020-0 Yes [id number] 25mg Take 1 U nivers 25 mg 3-06 tablet by ity of tablet 00:00: mouth [place] 00 daily. Medical Branch SERTraline 2020-0 Yes [id number] 25mg Take 1 U nivers 25 mg 3-06 tablet by ity of tablet 00:00: mouth [place] 00 daily. Medical Branch SERTraline 2020-0 Yes [id number] 25mg Take 1 U nivers 25 mg 3-06 tablet by ity of tablet 00:00: mouth [place] 00 daily. Medical Branch SERTraline 2020-0 Yes [id number] 25mg Take 1 U nivers 25 mg 3-06 tablet by ity of tablet 00:00: mouth [place] 00 daily. Medical Branch SERTraline 2020-0 2020- No [id number] 25mg Take 1 [facility] 25 mg 3-06 05-21 tablet by ity of tablet 00:00: 00:00 mouth [place] 00 :00 daily. Medical Branch SERTraline 2020-0 2020- No [id number] 25mg Take 1 [facility] 25 mg 3-06 05-21 tablet by ity of tablet 00:00: 00:00 mouth [place] 00 :00 daily. Medical Branch butorphanol 2020-0 Yes USE 1 Unive rs 10 mg/mL 3-05 SPRAY IN ity of nasal spray 00:00: ONE [place] NOSTRIL Medical EVERY 8 Branch HOURS NEEDED FOR HEADACHE butorphanol 2020-0 Yes USE 1 Unive rs 10 mg/mL 3-05 SPRAY IN ity of nasal spray 00:00: ONE [place] NOSTRIL Medical EVERY 8 Branch HOURS NEEDED FOR HEADACHE butorphanol 2020-0 Yes USE 1 Unive rs 10 mg/mL 3-05 SPRAY IN ity of nasal spray 00:00: [place] NOSTRIL Medical EVERY 8 Branch HOURS NEEDED FOR HEADACHE butorphanol 2020-0 Yes USE 1 Unive rs 10 mg/mL 3-05 SPRAY IN ity of nasal spray 00:00: ONE [place] NOSTRIL Medical EVERY 8 Branch HOURS NEEDED FOR HEADACHE butorphanol 2020-0 Yes USE 1 Unive rs 10 mg/mL 3-05 SPRAY IN ity of nasal spray 00:00: ONE [place] NOSTRIL Medical EVERY 8 Branch HOURS NEEDED FOR HEADACHE butorphanol 2020-0 Yes USE 1 Unive rs 10 mg/mL 3-05 SPRAY IN ity of nasal spray 00:00: ONE [place] NOSTRIL Medical EVERY 8 Branch HOURS NEEDED FOR HEADACHE butorphanol 2020-0 Yes USE 1 Unive rs 10 mg/mL 3-05 SPRAY IN ity of nasal spray 00:00: ONE [place] 00 NOSTRIL Medical EVERY 8 Branch HOURS NEEDED FOR HEADACHE butorphanol 2020-0 Yes USE 1 Unive rs 10 mg/mL 3-05 SPRAY IN ity of nasal spray 00:00: ONE [place] NOSTRIL Medical EVERY 8 Branch HOURS NEEDED FOR HEADACHE butorphanol 2020-0 Yes USE 1 Unive rs 10 mg/mL 3-05 SPRAY IN ity of nasal spray 00:00: ONE [place] NOSTRIL Medical EVERY 8 Branch HOURS NEEDED FOR HEADACHE butorphanol 2020-0 Yes USE 1 Unive rs 10 mg/mL 3-05 SPRAY IN ity of nasal spray 00:00: ONE [place] NOSTRIL Medical EVERY 8 Branch HOURS NEEDED FOR HEADACHE butorphanol 2020-0 Yes USE 1 Unive rs 10 mg/mL 3-05 SPRAY IN ity of nasal spray 00:00: ONE [place] NOSTRIL Medical EVERY 8 Branch HOURS NEEDED FOR HEADACHE butorphanol 2020-0 2020- No USE 1 Univ ers 10 mg/mL 3-05 04-01 SPRAY IN ity of nasal spray 00:00: 00:00 ONE [place] 00 :00 NOSTRIL Medical EVERY 8 Branch HOURS NEEDED FOR HEADACHE ELIQUIS 5 2020-0 Yes 5mg Take 5 mg Uni vers mg tablet 3-04 by mouth 2 ity of 00:00: (two) [place] 00 times Medical daily. Branch ELIQUIS 5 2020-0 Yes 5mg Take 5 mg Uni vers mg tablet 3-04 by mouth 2 ity of 00:00: (two) [place] 00 times Medical daily. Branch ELIQUIS 5 2020-0 Yes 5mg Take 5 mg Uni vers mg tablet 3-04 by mouth 2 ity of 00:00: (two) [place] 00 times Medical daily. Branch ELIQUIS 5 2020-0 Yes 5mg Take 5 mg Uni vers mg tablet 3-04 by mouth 2 ity of 00:00: (two) [place] 00 times Medical daily. Branch ELIQUIS 5 2020-0 Yes 5mg Take 5 mg Uni vers mg tablet 3-04 by mouth 2 ity of 00:00: (two) [place] 00 times Medical daily. Branch ELIQUIS 5 2020-0 Yes 5mg Take 5 mg Uni vers mg tablet 3-04 by mouth 2 ity of 00:00: (two) [place] 00 times Medical daily. Branch ELIQUIS 5 2020-0 Yes 5mg Take 5 mg Uni vers mg tablet 3-04 by mouth 2 ity of 00:00: (two) [place] 00 times Medical daily. Branch ELIQUIS 5 2020-0 Yes 5mg Take 5 mg [facility] vers mg tablet 3-04 by mouth 2 ity of 00:00: (two) [place] 00 times Medical daily. Branch ELIQUIS 5 2020-0 Yes 5mg Take 5 mg [facility] vers mg tablet 3-04 by mouth 2 ity of 00:00: (two) [place] 00 times Medical daily. Branch ELIQUIS 5 2020-0 Yes 5mg Take 5 mg [facility] vers mg tablet 3-04 by mouth 2 ity of 00:00: (two) [place] 00 times Medical daily. Branch ELIQUIS 5 2020-0 Yes 5mg Take 5 mg [facility] vers mg tablet 3-04 by mouth 2 ity of 00:00: (two) [place] 00 times Medical daily. Branch ELIQUIS 5 2020-0 Yes 5mg Take 5 mg [facility] vers mg tablet 3-04 by mouth 2 ity of 00:00: (two) [place] 00 times Medical daily. Branch ELIQUIS 5 2020-0 Yes 5mg Take 5 mg [facility] vers mg tablet 3-04 by mouth 2 ity of 00:00: (two) [place] 00 times Medical daily. Branch ELIQUIS 5 2020-0 Yes 5mg Take 5 mg [facility] vers mg tablet 3-04 by mouth 2 ity of 00:00: (two) [place] 00 times Medical daily. Branch ELIQUIS 5 2020-0 Yes 5mg Take 5 mg [facility] vers mg tablet 3-04 by mouth 2 ity of 00:00: (two) [place] 00 times Medical daily. Branch ELIQUIS 5 2020-0 Yes 5mg Take 5 mg [facility] mg tablet 3-04 by mouth 2 ity of 00:00: (two) [place] 00 times Medical daily. Branch ELIQUIS 5 2020-0 Yes 5mg Take 5 mg [facility] mg tablet 3-04 by mouth 2 ity of 00:00: (two) [place] 00 times Medical daily. Branch ELIQUIS 5 2020-0 Yes 5mg Take 5 mg [facility] mg tablet 3-04 by mouth 2 ity of 00:00: (two) [place] 00 times Medical daily. Branch ELIQUIS 5 2020-0 Yes 5mg Take 5 mg [facility] mg tablet 3-04 by mouth 2 ity of 00:00: (two) [place] 00 times Medical daily. Branch ELIQUIS 5 2020-0 Yes 5mg Take 5 mg [facility] mg tablet 3-04 by mouth 2 ity of 00:00: (two) [place] 00 times Medical daily. Branch ELIQUIS 5 2020-0 Yes [facility] mg tablet 3-04 ity of 00:00: [place] 00 Medical Branch ELIQUIS 5 2020-0 Yes [facility] mg tablet 3-04 ity of 00:00: [place] 00 Medical Branch ELIQUIS 5 2020-0 Yes 5mg Take 5 mg [facility] mg tablet 3-04 by mouth 2 ity of 00:00: (two) [place] 00 times Medical daily. Branch ELIQUIS 5 2020-0 Yes 5mg Take 5 mg [facility] mg tablet 3-04 by mouth 2 ity of 00:00: (two) [place] 00 times Medical daily. Branch ELIQUIS 5 2020-0 Yes 5mg Take 5 mg [facility] mg tablet 3-04 by mouth 2 ity of 00:00: (two) [place] 00 times Medical daily. Branch ELIQUIS 5 2020-0 Yes 5mg Take 5 mg [facility] mg tablet 3-04 by mouth 2 ity of 00:00: (two) [place] 00 times Medical daily. Branch ELIQUIS 5 2020-0 Yes 5mg Take 5 mg [facility] mg tablet 3-04 by mouth 2 ity of 00:00: (two) [place] 00 times Medical daily. Branch ELIQUIS 5 2020-0 Yes 5mg Take 5 mg [facility] mg tablet 3-04 by mouth 2 ity of 00:00: (two) [place] 00 times Medical daily. Branch ELIQUIS 5 2020-0 Yes 5mg Take 5 mg [facility] mg tablet 3-04 by mouth 2 ity of 00:00: (two) [place] 00 times Medical daily. Branch ELIQUIS 5 2020-0 Yes 5mg Take 5 mg [facility] mg tablet 3-04 by mouth 2 ity of 00:00: (two) [place] 00 times Medical daily. Branch ELIQUIS 5 2020-0 Yes 5mg Take 5 mg [facility] mg tablet 3-04 by mouth 2 ity of 00:00: (two) [place] 00 times Medical daily. Branch ELIQUIS 5 2020-0 Yes 5mg Take 5 mg [facility] mg tablet 3-04 by mouth 2 ity of 00:00: (two) [place] 00 times Medical daily. Branch ELIQUIS 5 2020-0 Yes 5mg Take 5 mg [facility] mg tablet 3-04 by mouth 2 ity of 00:00: (two) [place] 00 times Medical daily. Branch ELIQUIS 5 2020-0 Yes 5mg Take 5 mg [facility] mg tablet 3-04 by mouth 2 ity of 00:00: (two) [place] 00 times Medical daily. Branch ELIQUIS 5 2020-0 Yes 5mg Take 5 mg [facility] mg tablet 3-04 by mouth 2 ity of 00:00: (two) [place] 00 times Medical daily. Branch ELIQUIS 5 2020-0 Yes 5mg Take 5 mg [facility] mg tablet 3-04 by mouth 2 ity of 00:00: (two) [place] 00 times Medical daily. Branch ELIQUIS 5 2020-0 Yes 5mg Take 5 mg [facility] mg tablet 3-04 by mouth 2 ity of 00:00: (two) [place] 00 times Medical daily. Branch ELIQUIS 5 2020-0 Yes 5mg Take 5 mg [facility] mg tablet 3-04 by mouth 2 ity of 00:00: (two) [place] 00 times Medical daily. Branch ELIQUIS 5 2020-0 Yes 5mg Take 5 mg [facility] mg tablet 3-04 by mouth 2 ity of 00:00: (two) [place] 00 times Medical daily. Branch ELIQUIS 5 2020-0 Yes 5mg Take 5 mg [facility] mg tablet 3-04 by mouth 2 ity of 00:00: (two) [place] 00 times Medical daily. Branch ELIQUIS 5 2020-0 Yes 5mg Take 5 mg [facility] mg tablet 3-04 by mouth 2 ity of 00:00: (two) [place] 00 times Medical daily. Branch ELIQUIS 5 2020-0 Yes 5mg Take 5 mg [facility] mg tablet 3-04 by mouth 2 ity of 00:00: (two) [place] 00 times Medical daily. Branch ELIQUIS 5 2020-0 Yes 5mg Take 5 mg [facility] mg tablet 3-04 by mouth 2 ity of 00:00: (two) [place] 00 times Medical daily. Branch ELIQUIS 5 2020-0 Yes 5mg Take 5 mg [facility] mg tablet 3-04 by mouth 2 ity of 00:00: (two) [place] 00 times Medical daily. Branch ELIQUIS 5 2020-0 Yes 5mg Take 5 mg [facility] mg tablet 3-04 by mouth 2 ity of 00:00: (two) [place] 00 times Medical daily. Branch ELIQUIS 5 2020-0 Yes 5mg Take 5 mg [facility] mg tablet 3-04 by mouth 2 ity of 00:00: (two) [place] 00 times Medical daily. Branch ELIQUIS 5 2020-0 Yes 5mg Take 5 mg [facility] mg tablet 3-04 by mouth 2 ity of 00:00: (two) [place] 00 times Medical daily. Branch ELIQUIS 5 2020-0 Yes 5mg Take 5 mg [facility] mg tablet 3-04 by mouth 2 ity of 00:00: (two) [place] 00 times Medical daily. Branch ELIQUIS 5 2020-0 Yes 5mg Take 5 mg [facility] mg tablet 3-04 by mouth 2 ity of 00:00: (two) [place] 00 times Medical daily. Branch ELIQUIS 5 2020-0 Yes 5mg Take 5 mg [facility] mg tablet 3-04 by mouth 2 ity of 00:00: (two) [place] 00 times Medical daily. Branch ELIQUIS 5 2020-0 Yes 5mg Take 5 mg [facility] mg tablet 3-04 by mouth 2 ity of 00:00: (two) [place] 00 times Medical daily. Branch ELIQUIS 5 2020-0 Yes 5mg Take 5 mg [facility] mg tablet 3-04 by mouth 2 ity of 00:00: (two) [place] 00 times Medical daily. Branch ELIQUIS 5 2020-0 Yes 5mg Take 5 mg [facility] mg tablet 3-04 by mouth 2 ity of 00:00: (two) [place] 00 times Medical daily. Branch ELIQUIS 5 2020-0 Yes 5mg Take 5 mg [facility] mg tablet 3-04 by mouth 2 ity of 00:00: (two) [place] 00 times Medical daily. Branch ELIQUIS 5 2020-0 Yes 5mg Take 5 mg [facility] mg tablet 3-04 by mouth 2 ity of 00:00: (two) [place] 00 times Medical daily. Branch ELIQUIS 5 2020-0 Yes 5mg Take 5 mg [facility] mg tablet 3-04 by mouth 2 ity of 00:00: (two) [place] 00 times Medical daily. Branch AMITRIPTYLI 2020-0 Yes TAKE 1 [facility] NE 25 mg 3-02 TABLET BY ity of tablet 00:00: MOUTH [place] 00 EVERYDAY Medical AT BEDTIME Branch AMITRIPTYLI 2020-0 Yes TAKE 1 [facility] NE 25 mg 3-02 TABLET BY ity of tablet 00:00: MOUTH [place] 00 EVERYDAY Medical AT BEDTIME Branch AMITRIPTYLI 2020-0 Yes TAKE 1 [facility] NE 25 mg 3-02 TABLET BY ity of tablet 00:00: MOUTH [place] 00 EVERYDAY Medical AT BEDTIME Branch AMITRIPTYLI 2020-0 Yes TAKE 1 [facility] NE 25 mg 3-02 TABLET BY ity of tablet 00:00: MOUTH [place] 00 EVERYDAY Medical AT BEDTIME Branch AMITRIPTYLI 2020-0 Yes TAKE 1 [facility] NE 25 mg 3-02 TABLET BY ity of tablet 00:00: MOUTH [place] 00 EVERYDAY Medical AT BEDTIME Branch AMITRIPTYLI 2020-0 Yes TAKE 1 [facility] NE 25 mg 3-02 TABLET BY ity of tablet 00:00: MOUTH 00 EVERYDAY Medical AT BEDTIME Branch AMITRIPTYLI 2020-0 Yes TAKE 1 [facility] NE 25 mg 3-02 TABLET BY ity of tablet 00:00: MOUTH [place] 00 EVERYDAY Medical AT BEDTIME Branch AMITRIPTYLI 2020-0 Yes TAKE 1 [facility] NE 25 mg 3-02 TABLET BY ity of tablet 00:00: MOUTH 00 EVERYDAY Medical AT BEDTIME Branch AMITRIPTYLI 2020-0 Yes TAKE 1 [facility] NE 25 mg 3-02 TABLET BY ity of tablet 00:00: MOUTH 00 EVERYDAY Medical AT BEDTIME Branch AMITRIPTYLI 2020-0 Yes TAKE 1 [facility] NE 25 mg 3-02 TABLET BY ity of tablet 00:00: MOUTH [place] 00 EVERYDAY Medical AT BEDTIME Branch AMITRIPTYLI 2020-0 Yes TAKE 1 [facility] NE 25 mg 3-02 TABLET BY ity of tablet 00:00: MOUTH [place] 00 EVERYDAY Medical AT BEDTIME Branch AMITRIPTYLI 2020-0 2020- No TAKE 1 [facility] NE 25 mg 3-02 03-30 TABLET BY ity o f tablet 00:00: 00:00 MOUTH [place] 00 :00 EVERYDAY Medical AT BEDTIME Branch zolpidem 10 2019-0 Yes 10mg Take 10 mg [facility] mg tablet 3-01 by mouth ity of 00:00: at [place] 00 bedtime. I Medical ADVISE Branch AGAINST TAKING THIS MEDICATION DUE TO THE RISKS. [facility] zolpidem 10 2020-0 Yes 10mg Take 10 mg [facility] mg tablet 3-01 by mouth ity of 00:00: at [place] [address] bedtime. I Medical ADVISE Branch AGAINST TAKING THIS MEDICATION DUE TO THE RISKS. [facility] zolpidem 10 2020-0 Yes 10mg Take 10 mg [facility] mg tablet 3-01 by mouth ity of 00:00: at [place] [address] bedtime. I Medical ADVISE Branch AGAINST TAKING THIS MEDICATION DUE TO THE RISKS. [facility] zolpidem 10 2020-0 Yes 10mg Take 10 mg [facility] mg tablet 3-01 by mouth ity of 00:00: at [place] [address] bedtime. I Medical ADVISE Branch AGAINST TAKING THIS MEDICATION DUE TO THE RISKS. [facility] zolpidem 10 2020-0 Yes 10mg Take 10 mg [facility] mg tablet 3-01 by mouth ity of 00:00: at [place] [address] bedtime. I Medical ADVISE Branch AGAINST TAKING THIS MEDICATION DUE TO THE RISKS. [facility] zolpidem 10 2020-0 Yes 10mg Take 10 mg [facility] mg tablet 3-01 by mouth ity of 00:00: at [place] [address] bedtime. I Medical ADVISE Branch AGAINST TAKING THIS MEDICATION DUE TO THE RISKS. [facility] zolpidem 10 2020-0 Yes 10mg Take 10 mg [facility] mg tablet 3-01 by mouth ity of 00:00: at [place] [address] bedtime. I Medical ADVISE Branch AGAINST TAKING THIS MEDICATION DUE TO THE RISKS. [facility] zolpidem 10 2020-0 Yes 10mg Take 10 mg [facility] mg tablet 3-01 by mouth ity of 00:00: at [place] [address] bedtime. I Medical ADVISE Branch AGAINST TAKING THIS MEDICATION DUE TO THE RISKS. [facility] zolpidem 10 2020-0 Yes 10mg Take 10 mg [facility] mg tablet 3-01 by mouth ity of 00:00: at [place] [address] bedtime. I Medical ADVISE Branch AGAINST TAKING THIS MEDICATION DUE TO THE RISKS. [facility] zolpidem 10 2020-0 Yes 10mg Take 10 mg [facility] mg tablet 3-01 by mouth ity of 00:00: at [place] [address] bedtime. I Medical ADVISE Branch AGAINST TAKING THIS MEDICATION DUE TO THE RISKS. [facility] zolpidem 10 2020-0 Yes 10mg Take 10 mg [facility] mg tablet 3-01 by mouth ity of 00:00: at [place] [address] bedtime. I Medical ADVISE Branch AGAINST TAKING THIS MEDICATION DUE TO THE RISKS. [facility] zolpidem 10 2020-0 Yes 10mg Take 10 mg [facility] mg tablet 3-01 by mouth ity of 00:00: at [place] 00 bedtime. I Medical ADVISE Branch AGAINST TAKING THIS MEDICATION DUE TO THE RISKS. [facility] zolpidem 10 2020-0 Yes 10mg Take 10 mg [facility] mg tablet 3-01 by mouth ity of 00:00: at [place] 00 bedtime. I Medical ADVISE Branch AGAINST TAKING THIS MEDICATION DUE TO THE RISKS. [facility] zolpidem 10 2020-0 Yes 10mg Take 10 mg [facility] mg tablet 3-01 by mouth ity of 00:00: at [place] 00 bedtime. I Medical ADVISE Branch AGAINST TAKING THIS MEDICATION DUE TO THE RISKS. [facility] zolpidem 10 2020-0 Yes 10mg Take 10 mg [facility] mg tablet 3-01 by mouth ity of 00:00: at [place] [address] bedtime. I Medical ADVISE Branch AGAINST TAKING THIS MEDICATION DUE TO THE RISKS. [facility] zolpidem 10 2020-0 Yes 10mg Take 10 mg [facility] mg tablet 3-01 by mouth ity of 00:00: at [place] [address] bedtime. I Medical ADVISE Branch AGAINST TAKING THIS MEDICATION DUE TO THE RISKS. [facility] zolpidem 10 2020-0 Yes 10mg Take 10 mg [facility] mg tablet 3-01 by mouth ity of 00:00: at [place] [address] bedtime. I Medical ADVISE Branch AGAINST TAKING THIS MEDICATION DUE TO THE RISKS. [facility] zolpidem 10 2020-0 Yes 10mg Take 10 mg [facility] mg tablet 3-01 by mouth ity of 00:00: at [place] [address] bedtime. I Medical ADVISE Branch AGAINST TAKING THIS MEDICATION DUE TO THE RISKS. [facility] zolpidem 10 2020-0 Yes 10mg Take 10 mg [facility] mg tablet 3-01 by mouth ity of 00:00: at [place] [address] bedtime. I Medical ADVISE Branch AGAINST TAKING THIS MEDICATION DUE TO THE RISKS. [facility] zolpidem 10 2020-0 Yes 10mg Take 10 mg [facility] mg tablet 3-01 by mouth ity of 00:00: at [place] [address] bedtime. I Medical ADVISE Branch AGAINST TAKING THIS MEDICATION DUE TO THE RISKS. [facility] zolpidem 10 2020-0 Yes 10mg Take 10 mg [facility] mg tablet 3-01 by mouth ity of 00:00: at [place] 00 bedtime. Medical Branch zolpidem 10 2020-0 Yes 10mg Take 10 mg [facility] mg tablet 3-01 by mouth ity of 00:00: at [place] [address] bedtime. [facility] Branch zolpidem 10 2020-0 Yes 10mg Take 10 mg [facility] mg tablet 3-01 by mouth ity of 00:00: at [place] 00 bedtime. [facility] Branch zolpidem 10 2020-0 Yes 10mg Take 10 mg [facility] mg tablet 3-01 by mouth ity of 00:00: at [place] [address] bedtime. I Medical ADVISE Branch AGAINST TAKING THIS MEDICATION DUE TO THE RISKS. [facility] zolpidem 10 2020-0 Yes 10mg Take 10 mg [facility] mg tablet 3-01 by mouth ity of 00:00: at [place] [address] bedtime. I Medical ADVISE Branch AGAINST TAKING THIS MEDICATION DUE TO THE RISKS. [facility] zolpidem 10 2020-0 Yes 10mg Take 10 mg [facility] mg tablet 3-01 by mouth ity of 00:00: at [place] [address] bedtime. I Medical ADVISE Branch AGAINST TAKING THIS MEDICATION DUE TO THE RISKS. [facility] zolpidem 10 2020-0 Yes 10mg Take 10 mg [facility] mg tablet 3-01 by mouth ity of 00:00: at [place] [address] bedtime. I Medical ADVISE Branch AGAINST TAKING THIS MEDICATION DUE TO THE RISKS. [facility] zolpidem 10 2020-0 Yes 10mg Take 10 mg [facility] mg tablet 3-01 by mouth ity of 00:00: at [place] [address] bedtime. I Medical ADVISE Branch AGAINST TAKING THIS MEDICATION DUE TO THE RISKS. [facility] zolpidem 10 2020-0 Yes 10mg Take 10 mg [facility] mg tablet 3-01 by mouth ity of 00:00: at [place] [address] bedtime. I Medical ADVISE Branch AGAINST TAKING THIS MEDICATION DUE TO THE RISKS. [facility] zolpidem 10 2020-0 Yes 10mg Take 10 mg [facility] mg tablet 3-01 by mouth ity of 00:00: at [place] [address] bedtime. I Medical ADVISE Branch AGAINST TAKING THIS MEDICATION DUE TO THE RISKS. [facility] zolpidem 10 2020-0 Yes 10mg Take 10 mg [facility] mg tablet 3-01 by mouth ity of 00:00: at [place] [address] bedtime. I Medical ADVISE Branch AGAINST TAKING THIS MEDICATION DUE TO THE RISKS. [facility] zolpidem 10 2020-0 Yes 10mg Take 10 mg [facility] mg tablet 3-01 by mouth ity of 00:00: at [place] 00 bedtime. I Medical ADVISE Branch AGAINST TAKING THIS MEDICATION DUE TO THE RISKS. [facility] zolpidem 10 2020-0 Yes 10mg Take 10 mg [facility] mg tablet 3-01 by mouth ity of 00:00: at [place] 00 bedtime. I Medical ADVISE Branch AGAINST TAKING THIS MEDICATION DUE TO THE RISKS. [facility] zolpidem 10 2020-0 Yes 10mg Take 10 mg [facility] mg tablet 3-01 by mouth ity of 00:00: at [place] 00 bedtime. I Medical ADVISE Branch AGAINST TAKING THIS MEDICATION DUE TO THE RISKS. [facility] zolpidem 10 2020-0 Yes 10mg Take 10 mg [facility] mg tablet 3-01 by mouth ity of 00:00: at [place] [address] bedtime. I Medical ADVISE Branch AGAINST TAKING THIS MEDICATION DUE TO THE RISKS. [facility] zolpidem 10 2020-0 Yes 10mg Take 10 mg [facility] mg tablet 3-01 by mouth ity of 00:00: at [place] [address] bedtime. I Medical ADVISE Branch AGAINST TAKING THIS MEDICATION DUE TO THE RISKS. [facility] zolpidem 10 2020-0 Yes 10mg Take 10 mg [facility] mg tablet 3-01 by mouth ity of 00:00: at [place] [address] bedtime. I Medical ADVISE Branch AGAINST TAKING THIS MEDICATION DUE TO THE RISKS. [facility] zolpidem 10 2020-0 Yes 10mg Take 10 mg [facility] mg tablet 3-01 by mouth ity of 00:00: at [place] [address] bedtime. I Medical ADVISE Branch AGAINST TAKING THIS MEDICATION DUE TO THE RISKS. [facility] zolpidem 10 2020-0 Yes 10mg Take 10 mg [facility] mg tablet 3-01 by mouth ity of 00:00: at [place] [address] bedtime. I Medical ADVISE Branch AGAINST TAKING THIS MEDICATION DUE TO THE RISKS. [facility] zolpidem 10 2020-0 Yes 10mg Take 10 mg [facility] mg tablet 3-01 by mouth ity of 00:00: at [place] 00 bedtime. I Medical ADVISE Branch AGAINST TAKING THIS MEDICATION DUE TO THE RISKS. [facility] zolpidem 10 2020-0 Yes 10mg Take 10 mg [facility] mg tablet 3-01 by mouth ity of 00:00: at [place] [address] bedtime. I Medical ADVISE Branch AGAINST TAKING THIS MEDICATION DUE TO THE RISKS. [facility] zolpidem 10 2020-0 Yes 10mg Take 10 mg [facility] mg tablet 3-01 by mouth ity of 00:00: at [place] 00 bedtime. I Medical ADVISE Branch AGAINST TAKING THIS MEDICATION DUE TO THE RISKS. [facility] zolpidem 10 2020-0 Yes 10mg Take 10 mg [facility] mg tablet 3-01 by mouth ity of 00:00: at [place] 00 bedtime. I Medical ADVISE Branch AGAINST TAKING THIS MEDICATION DUE TO THE RISKS. [facility] zolpidem 10 2020-0 Yes 10mg Take 10 mg [facility] mg tablet 3-01 by mouth ity of 00:00: at [place] [address] bedtime. I Medical ADVISE Branch AGAINST TAKING THIS MEDICATION DUE TO THE RISKS. [facility] zolpidem 10 2020-0 Yes 10mg Take 10 mg [facility] mg tablet 3-01 by mouth ity of 00:00: at [place] [address] bedtime. I Medical ADVISE Branch AGAINST TAKING THIS MEDICATION DUE TO THE RISKS. [facility] zolpidem 10 2020-0 Yes 10mg Take 10 mg [facility] mg tablet 3-01 by mouth ity of 00:00: at [place] [address] bedtime. I Medical ADVISE Branch AGAINST TAKING THIS MEDICATION DUE TO THE RISKS. [facility] zolpidem 10 2020-0 Yes 10mg Take 10 mg [facility] mg tablet 3-01 by mouth ity of 00:00: at [place] [address] bedtime. I Medical ADVISE Branch AGAINST TAKING THIS MEDICATION DUE TO THE RISKS. [facility] zolpidem 10 2020-0 Yes 10mg Take 10 mg [facility] mg tablet 3-01 by mouth ity of 00:00: at [place] [address] bedtime. I Medical ADVISE Branch AGAINST TAKING THIS MEDICATION DUE TO THE RISKS. [facility] zolpidem 10 2020-0 Yes 10mg Take 10 mg [facility] mg tablet 3-01 by mouth ity of 00:00: at [place] [address] bedtime. I Medical ADVISE Branch AGAINST TAKING THIS MEDICATION DUE TO THE RISKS. [facility] zolpidem 10 2020-0 Yes 10mg Take 10 mg [facility] mg tablet 3-01 by mouth ity of 00:00: at [place] [address] bedtime. I Medical ADVISE Branch AGAINST TAKING THIS MEDICATION DUE TO THE RISKS. [facility] zolpidem 10 2020-0 Yes 10mg Take 10 mg [facility] mg tablet 3-01 by mouth ity of 00:00: at [place] [address] bedtime. I Medical ADVISE Branch AGAINST TAKING THIS MEDICATION DUE TO THE RISKS. [facility] zolpidem 10 2020-0 Yes 10mg Take 10 mg [facility] mg tablet 3-01 by mouth ity of 00:00: at [place] [address] bedtime. I Medical ADVISE Branch AGAINST TAKING THIS MEDICATION DUE TO THE RISKS. [facility] zolpidem 10 2020-0 Yes 10mg Take 10 mg [facility] mg tablet 3-01 by mouth ity of 00:00: at [place] 00 bedtime. I Medical ADVISE Branch AGAINST TAKING THIS MEDICATION DUE TO THE RISKS. [facility] zolpidem 10 2020-0 Yes 10mg Take 10 mg [facility] mg tablet 3-01 by mouth ity of 00:00: at [place] 00 bedtime. I Medical ADVISE Branch AGAINST TAKING THIS MEDICATION DUE TO THE RISKS. [facility] zolpidem 10 2020-0 Yes 10mg Take 10 mg [facility] mg tablet 3-01 by mouth ity of 00:00: at [place] [address] bedtime. I Medical ADVISE Branch AGAINST TAKING THIS MEDICATION DUE TO THE RISKS. [facility] zolpidem 10 2020-0 Yes 10mg Take 10 mg [facility] mg tablet 3-01 by mouth ity of 00:00: at [place] [address] bedtime. I Medical ADVISE Branch AGAINST TAKING THIS MEDICATION DUE TO THE RISKS. [facility] ondansetron 2020-0 Yes 4mg Take 4 mg U nivers 4 mg 2-27 by mouth ity of disintegrat 00:00: every 8 [place] as ing tablet 00 (eight) Medica l hours as Branch needed for Nausea and Vomiting (N/V). ondansetron 2020-0 Yes 4mg Take 4 mg U nivers 4 mg 2-27 by mouth ity of disintegrat 00:00: every 8 [place] as ing tablet 00 (eight) Medica l hours as Branch needed for Nausea and Vomiting (N/V). ondansetron 2020-0 Yes 4mg Take 4 mg U nivers 4 mg 2-27 by mouth ity of disintegrat 00:00: every 8 [place] ing tablet 00 (eight) Medica l hours as Branch needed for Nausea and Vomiting (N/V). ondansetron 2020-0 Yes 4mg Take 4 mg U nivers 4 mg 2-27 by mouth ity of disintegrat 00:00: every 8 [place] ing tablet 00 (eight) Medica l hours as Branch needed for Nausea and Vomiting (N/V). ondansetron 2020-0 Yes 4mg Take 4 mg U nivers 4 mg 2-27 by mouth ity of disintegrat 00:00: every 8 [place] ing tablet 00 (eight) Medica l hours as Branch needed for Nausea and Vomiting (N/V). ondansetron 2020-0 Yes 4mg Take 4 mg U nivers 4 mg 2-27 by mouth ity of disintegrat 00:00: every 8 [place] ing tablet 00 (eight) Medica l hours as Branch needed for Nausea and Vomiting (N/V). ondansetron 2020-0 Yes 4mg Take 4 mg U nivers 4 mg 2-27 by mouth ity of disintegrat 00:00: every 8 [place] ing tablet 00 (eight) Medica l hours as Branch needed for Nausea and Vomiting (N/V). ondansetron 2020-0 Yes 4mg Take 4 mg U nivers 4 mg 2-27 by mouth ity of disintegrat 00:00: every 8 [place] ing tablet 00 (eight) Medica l hours as Branch needed for Nausea and Vomiting (N/V). ondansetron 2020-0 Yes 4mg Take 4 mg U nivers 4 mg 2-27 by mouth ity of disintegrat 00:00: every 8 [place] ing tablet 00 (eight) Medica l hours as Branch needed for Nausea and Vomiting (N/V). ondansetron 2020-0 Yes 4mg Take 4 mg U nivers 4 mg 2-27 by mouth ity of disintegrat 00:00: every 8 [place] ing tablet 00 (eight) Medica l hours as Branch needed for Nausea and Vomiting (N/V). ondansetron 2020-0 Yes 4mg Take 4 mg U nivers 4 mg 2-27 by mouth ity of disintegrat 00:00: every 8 [place] ing tablet 00 (eight) Medica l hours as Branch needed for Nausea and Vomiting (N/V). ondansetron 2020-0 Yes 4mg Take 4 mg U nivers 4 mg 2-27 by mouth ity of disintegrat 00:00: every 8 [place] ing tablet 00 (eight) Medica l hours as Branch needed for Nausea and Vomiting (N/V). ondansetron 2020-0 Yes 4mg Take 4 mg U nivers 4 mg 2-27 by mouth ity of disintegrat 00:00: every 8 [place] ing tablet 00 (eight) Medica l hours as Branch needed for Nausea and Vomiting (N/V). ondansetron 2020-0 Yes 4mg Take 4 mg U nivers 4 mg 2-27 by mouth ity of disintegrat 00:00: every 8 [place] ing tablet 00 (eight) Medica l hours as Branch needed for Nausea and Vomiting (N/V). ondansetron 2020-0 Yes 4mg Take 4 mg U nivers 4 mg 2-27 by mouth ity of disintegrat 00:00: every 8 [place] ing tablet 00 (eight) Medica l hours as Branch needed for Nausea and Vomiting (N/V). ondansetron 2020-0 Yes 4mg Take 4 mg U nivers 4 mg 2-27 by mouth ity of disintegrat 00:00: every 8 [place] ing tablet 00 (eight) Medica l hours as Branch needed for Nausea and Vomiting (N/V). ondansetron 2020-0 Yes 4mg Take 4 mg U nivers 4 mg 2-27 by mouth ity of disintegrat 00:00: every 8 [place] ing tablet 00 (eight) Medica l hours as Branch needed for Nausea and Vomiting (N/V). ondansetron 2020-0 Yes 4mg Take 4 mg U nivers 4 mg 2-27 by mouth ity of disintegrat 00:00: every 8 [place] ing tablet 00 (eight) Medica l hours as Branch needed for Nausea and Vomiting (N/V). ondansetron 2020-0 Yes 4mg Take 4 mg U nivers 4 mg 2-27 by mouth ity of disintegrat 00:00: every 8 [place] ing tablet 00 (eight) Medica l hours as Branch needed for Nausea and Vomiting (N/V). ondansetron 2020-0 Yes 4mg Take 4 mg U nivers 4 mg 2-27 by mouth ity of disintegrat 00:00: every 8 [place] ing tablet 00 (eight) Medica l hours as Branch needed for Nausea and Vomiting (N/V). chlordiazeP 2020-0 Yes TAKE 1 [facility] ers OXIDE 10 mg 2-27 CAPSULE BY it y of capsule 00:00: MOUTH 3 [place] 00 TIMES A Medical DAY Branch NEEDED ondansetron 2020-0 Yes DISSOLVE Un [place] 4 mg 2-27 OVER THE ity of disintegrat 00:00: TONGUE 2 [place] ing tablet 00 TIMES A Medica l DAY Branch chlordiazeP 2020-0 Yes TAKE 1 [facility] ers OXIDE 10 mg 2-27 CAPSULE BY it y of capsule 00:00: MOUTH 3 [place] 00 TIMES A Medical DAY Branch NEEDED ondansetron 2020-0 Yes DISSOLVE Un os[place] 4 mg 2-27 OVER THE ity of disintegrat 00:00: TONGUE 2 [place] ing tablet 00 TIMES A Medica l DAY Branch chlordiazeP 2020-0 Yes TAKE 1 [facility] ers OXIDE 10 mg 2-27 CAPSULE BY it y of capsule 00:00: MOUTH 3 [place] 00 TIMES A Medical DAY Branch NEEDED ondansetron 2020-0 Yes DISSOLVE Un [place] 4 mg 2-27 OVER THE ity of disintegrat 00:00: TONGUE 2 [place] ing tablet 00 TIMES A Medica l DAY Branch ondansetron 2020-0 Yes 4mg Take 4 mg U nivers 4 mg 2-27 by mouth ity of disintegrat 00:00: every 8 [place] ing tablet 00 (eight) Medica l hours as Branch needed for Nausea and Vomiting (N/V). ondansetron 2020-0 Yes 4mg Take 4 mg U nivers 4 mg 2-27 by mouth ity of disintegrat 00:00: every 8 [place] as ing tablet 00 (eight) Medica l hours as Branch needed for Nausea and Vomiting (N/V). ondansetron 2020-0 Yes 4mg Take 4 mg U nivers 4 mg 2-27 by mouth ity of disintegrat 00:00: every 8 [place] ing tablet 00 (eight) Medica l hours as Branch needed for Nausea and Vomiting (N/V). ondansetron 2020-0 Yes 4mg Take 4 mg [facility] 4 mg 2-27 by mouth ity of disintegrat 00:00: every 8 [place] as ing tablet 00 (eight) Medica l hours as Branch needed for Nausea and Vomiting (N/V). ondansetron 2020-0 Yes 4mg Take 4 mg [facility] nivers 4 mg 2-27 by mouth ity of disintegrat 00:00: every 8 [place] as ing tablet 00 (eight) Medica l hours as Branch needed for Nausea and Vomiting (N/V). ondansetron 2020-0 Yes 4mg Take 4 mg [facility] n[facility] 4 mg 2-27 by mouth ity of disintegrat 00:00: every 8 [place] as ing tablet 00 (eight) Medica l hours as Branch needed for Nausea and Vomiting (N/V). ondansetron 2020-0 Yes 4mg Take 4 mg [facility] 4 mg 2-27 by mouth ity of disintegrat 00:00: every 8 [place] as ing tablet 00 (eight) Medica l hours as Branch needed for Nausea and Vomiting (N/V). ondansetron 2020-0 Yes 4mg Take 4 mg [facility] n[facility] 4 mg 2-27 by mouth ity of disintegrat 00:00: every 8 [place] as ing tablet 00 (eight) Medica l hours as Branch needed for Nausea and Vomiting (N/V). ondansetron 2020-0 Yes 4mg Take 4 mg [facility] n[facility] 4 mg 2-27 by mouth ity of disintegrat 00:00: every 8 [place] as ing tablet 00 (eight) Medica l hours as Branch needed for Nausea and Vomiting (N/V). ondansetron 2020-0 Yes 4mg Take 4 mg [facility] 4 mg 2-27 by mouth ity of disintegrat 00:00: every 8 [place] as ing tablet 00 (eight) Medica l hours as Branch needed for Nausea and Vomiting (N/V). ondansetron 2020-0 Yes 4mg Take 4 mg [facility] 4 mg 2-27 by mouth ity of disintegrat 00:00: every 8 [place] as ing tablet 00 (eight) Medica l hours as Branch needed for Nausea and Vomiting (N/V). ondansetron 2020-0 Yes 4mg Take 4 mg [facility] n[facility] 4 mg 2-27 by mouth ity of disintegrat 00:00: every 8 [place] as ing tablet 00 (eight) Medica l hours as Branch needed for Nausea and Vomiting (N/V). ondansetron 2020-0 Yes 4mg Take 4 mg [facility] 4 mg 2-27 by mouth ity of disintegrat 00:00: every 8 [place] as ing tablet 00 (eight) Medica l hours as Branch needed for Nausea and Vomiting (N/V). ondansetron 2020-0 Yes 4mg Take 4 mg [facility] n[facility] 4 mg 2-27 by mouth ity of disintegrat 00:00: every 8 [place] as ing tablet 00 (eight) Medica l hours as Branch needed for Nausea and Vomiting (N/V). ondansetron 2020-0 Yes 4mg Take 4 mg [facility] 4 mg 2-27 by mouth ity of disintegrat 00:00: every 8 [place] as ing tablet 00 (eight) Medica l hours as Branch needed for Nausea and Vomiting (N/V). ondansetron 2020-0 Yes 4mg Take 4 mg [facility] 4 mg 2-27 by mouth ity of disintegrat 00:00: every 8 [place] as ing tablet 00 (eight) Medica l hours as Branch needed for Nausea and Vomiting (N/V). ondansetron 2020-0 Yes 4mg Take 4 mg [facility] 4 mg 2-27 by mouth ity of disintegrat 00:00: every 8 [place] as ing tablet 00 (eight) Medica l hours as Branch needed for Nausea and Vomiting (N/V). ondansetron 2020-0 Yes 4mg Take 4 mg [facility] 4 mg 2-27 by mouth ity of disintegrat 00:00: every 8 [place] as ing tablet 00 (eight) Medica l hours as Branch needed for Nausea and Vomiting (N/V). ondansetron 2020-0 Yes 4mg Take 4 mg [facility] 4 mg 2-27 by mouth ity of disintegrat 00:00: every 8 [place] as ing tablet 00 (eight) Medica l hours as Branch needed for Nausea and Vomiting (N/V). ondansetron 2020-0 Yes 4mg Take 4 mg [facility] 4 mg 2-27 by mouth ity of disintegrat 00:00: every 8 [place] as ing tablet 00 (eight) Medica l hours as Branch needed for Nausea and Vomiting (N/V). ondansetron 2020-0 Yes 4mg Take 4 mg [facility] 4 mg 2-27 by mouth ity of disintegrat 00:00: every 8 [place] as ing tablet 00 (eight) Medica l hours as Branch needed for Nausea and Vomiting (N/V). ondansetron 2020-0 Yes 4mg Take 4 mg [facility] 4 mg 2-27 by mouth ity of disintegrat 00:00: every 8 [place] as ing tablet 00 (eight) Medica l hours as Branch needed for Nausea and Vomiting (N/V). ondansetron 2020-0 Yes 4mg Take 4 mg [facility] 4 mg 2-27 by mouth ity of disintegrat 00:00: every 8 [place] as ing tablet 00 (eight) Medica l hours as Branch needed for Nausea and Vomiting (N/V). ondansetron 2020-0 Yes 4mg Take 4 mg [facility] 4 mg 2-27 by mouth ity of disintegrat 00:00: every 8 [place] as ing tablet 00 (eight) Medica l hours as Branch needed for Nausea and Vomiting (N/V). ondansetron 2020-0 Yes 4mg Take 4 mg [facility] 4 mg 2-27 by mouth ity of disintegrat 00:00: every 8 [place] as ing tablet 00 (eight) Medica l hours as Branch needed for Nausea and Vomiting (N/V). ondansetron 2020-0 Yes 4mg Take 4 mg [facility] 4 mg 2-27 by mouth ity of disintegrat 00:00: every 8 [place] as ing tablet 00 (eight) Medica l hours as Branch needed for Nausea and Vomiting (N/V). ondansetron 2020-0 Yes 4mg Take 4 mg [facility] 4 mg 2-27 by mouth ity of disintegrat 00:00: every 8 [place] as ing tablet 00 (eight) Medica l hours as Branch needed for Nausea and Vomiting (N/V). ondansetron 2020-0 Yes 4mg Take 4 mg [facility] 4 mg 2-27 by mouth ity of disintegrat 00:00: every 8 [place] as ing tablet 00 (eight) Medica l hours as Branch needed for Nausea and Vomiting (N/V). ondansetron 2020-0 Yes 4mg Take 4 mg [facility] 4 mg 2-27 by mouth ity of disintegrat 00:00: every 8 [place] as ing tablet 00 (eight) Medica l hours as Branch needed for Nausea and Vomiting (N/V). ondansetron 2020-0 Yes 4mg Take 4 mg [facility] 4 mg 2-27 by mouth ity of disintegrat 00:00: every 8 [place] as ing tablet 00 (eight) Medica l hours as Branch needed for Nausea and Vomiting (N/V). ondansetron 2020-0 Yes 4mg Take 4 mg [facility] 4 mg 2-27 by mouth ity of disintegrat 00:00: every 8 [place] as ing tablet 00 (eight) Medica l hours as Branch needed for Nausea and Vomiting (N/V). ondansetron 2020-0 Yes 4mg Take 4 mg [facility] 4 mg 2-27 by mouth ity of disintegrat 00:00: every 8 [place] as ing tablet 00 (eight) Medica l hours as Branch needed for Nausea and Vomiting (N/V). ondansetron 2020-0 Yes 4mg Take 4 mg [facility] 4 mg 2-27 by mouth ity of disintegrat 00:00: every 8 [place] as ing tablet 00 (eight) Medica l hours as Branch needed for Nausea and Vomiting (N/V). chlordiazeP 2020-0 2020- No TAKE 1 Uni vers OXIDE 10 mg 2-27 - CAPSULE BY i ty of capsule 00:00: 00:00 MOUTH 3 00 :00 TIMES A Medical DAY Branch NEEDED cloNIDine 2020-0 Yes .3mg Take 0.3 [facility] 0.3 mg 2-26 mg by ity of tablet 00:00: mouth (three) Medical times Branch daily. cloNIDine 2020-0 Yes .3mg Take 0.3 [facility] 0.3 mg 2-26 mg by ity of tablet 00:00: mouth [place] (three) Medical times Branch daily. cloNIDine 2020-0 Yes .3mg Take 0.3 [facility] 0.3 mg 2-26 mg by ity of tablet 00:00: mouth [place] (three) Medical times Branch daily. cloNIDine 2020-0 Yes .3mg Take 0.3 [facility] 0.3 mg 2-26 mg by ity of tablet 00:00: mouth [place] (three) Medical times Branch daily. cloNIDine 2020-0 Yes .3mg Take 0.3 [facility] 0.3 mg 2-26 mg by ity of tablet 00:00: mouth [place] (three) Medical times Branch daily. cloNIDine 2020-0 Yes .3mg Take 0.3 [facility] 0.3 mg 2-26 mg by ity of tablet 00:00: mouth [place] (three) Medical times Branch daily. cloNIDine 2020-0 Yes .3mg Take 0.3 [facility] 0.3 mg 2-26 mg by ity of tablet 00:00: mouth 3 [place] (three) Medical times Branch daily. cloNIDine 2020-0 Yes .3mg Take 0.3 [facility] 0.3 mg 2-26 mg by ity of tablet 00:00: mouth (three) Medical times Branch daily. cloNIDine 2020-0 Yes [facility] 0.3 mg 2-26 ity of tablet 00:00: Medical Branch cloNIDine 2020-0 Yes [facility] 0.3 mg 2-26 ity of tablet 00:00: Medical Branch cloNIDine 2020-0 Yes .3mg Take 0.3 [facility] 0.3 mg 2-26 mg by ity of tablet 00:00: mouth (three) Medical times Branch daily. cloNIDine 2020-0 Yes .3mg Take 0.3 [facility] 0.3 mg 2-26 mg by ity of tablet 00:00: mouth (three) Medical times Branch daily. cloNIDine 2020-0 Yes .3mg Take 0.3 [facility] 0.3 mg 2-26 mg by ity of tablet 00:00: mouth (three) Medical times Branch daily. cloNIDine 2020-0 Yes .3mg Take 0.3 [facility] 0.3 mg 2-26 mg by ity of tablet 00:00: mouth (three) Medical times Branch daily. cloNIDine 2020-0 Yes .3mg Take 0.3 [facility] 0.3 mg 2-26 mg by ity of tablet 00:00: mouth (three) Medical times Branch daily. cloNIDine 2020-0 Yes .3mg Take 0.3 [facility] 0.3 mg 2-26 mg by ity of tablet 00:00: mouth (three) Medical times Branch daily. cloNIDine 2020-0 Yes .3mg Take 0.3 [facility] 0.3 mg 2-26 mg by ity of tablet 00:00: mouth (three) Medical times Branch daily. cloNIDine 2020-0 Yes .3mg Take 0.3 [facility] 0.3 mg 2-26 mg by ity of tablet 00:00: mouth (three) Medical times Branch daily. cloNIDine 2020-0 Yes .3mg Take 0.3 [facility] 0.3 mg 2-26 mg by ity of tablet 00:00: mouth (three) Medical times Branch daily. cloNIDine 2020-0 Yes .3mg Take 0.3 [facility] 0.3 mg 2-26 mg by ity of tablet 00:00: mouth (three) Medical times Branch daily. cloNIDine 2020-0 Yes .3mg Take 0.3 [facility] 0.3 mg 2-26 mg by ity of tablet 00:00: mouth (three) Medical times Branch daily. cloNIDine 2020-0 Yes .3mg Take 0.3 [facility] 0.3 mg 2-26 mg by ity of tablet 00:00: mouth (three) Medical times Branch daily. cloNIDine 2020-0 Yes .3mg Take 0.3 [facility] 0.3 mg 2-26 mg by ity of tablet 00:00: mouth (three) Medical times Branch daily. cloNIDine 2020-0 Yes .3mg Take 0.3 [facility] 0.3 mg 2-26 mg by ity of tablet 00:00: mouth (three) Medical times Branch daily. cloNIDine 2020-0 Yes .3mg Take 0.3 [facility] 0.3 mg 2-26 mg by ity of tablet 00:00: mouth (three) Medical times Branch daily. cloNIDine 2020-0 Yes .3mg Take 0.3 [facility] 0.3 mg 2-26 mg by ity of tablet 00:00: mouth (three) Medical times Branch daily. cloNIDine 2020-0 Yes .3mg Take 0.3 [facility] 0.3 mg 2-26 mg by ity of tablet 00:00: mouth (three) Medical times Branch daily. cloNIDine 2020-0 Yes .3mg Take 0.3 [facility] 0.3 mg 2-26 mg by ity of tablet 00:00: mouth (three) Medical times Branch daily. cloNIDine 2020-0 Yes .3mg Take 0.3 [facility] 0.3 mg 2-26 mg by ity of tablet 00:00: mouth (three) Medical times Branch daily. cloNIDine 2020-0 Yes .3mg Take 0.3 [facility] 0.3 mg 2-26 mg by ity of tablet 00:00: mouth (three) Medical times Branch daily. cloNIDine 2020-0 Yes .3mg Take 0.3 [facility] 0.3 mg 2-26 mg by ity of tablet 00:00: mouth 3 (three) Medical times Branch daily. cloNIDine 2020-0 Yes .3mg Take 0.3 [facility] 0.3 mg 2-26 mg by ity of tablet 00:00: mouth (three) Medical times Branch daily. cloNIDine 2020-0 Yes .3mg Take 0.3 [facility] 0.3 mg 2-26 mg by ity of tablet 00:00: mouth (three) Medical times Branch daily. cloNIDine 2020-0 Yes .3mg Take 0.3 [facility] 0.3 mg 2-26 mg by ity of tablet 00:00: mouth (three) Medical times Branch daily. cloNIDine 2020-0 Yes .3mg Take 0.3 [facility] 0.3 mg 2-26 mg by ity of tablet 00:00: mouth (three) Medical times Branch daily. cloNIDine 2020-0 Yes .3mg Take 0.3 [facility] 0.3 mg 2-26 mg by ity of tablet 00:00: mouth (three) Medical times Branch daily. cloNIDine 2020-0 Yes .3mg Take 0.3 [facility] 0.3 mg 2-26 mg by ity of tablet 00:00: mouth (three) Medical times Branch daily. cloNIDine 2020-0 Yes .3mg Take 0.3 [facility] 0.3 mg 2-26 mg by ity of tablet 00:00: mouth (three) Medical times Branch daily. cloNIDine 2020-0 Yes .3mg Take 0.3 [facility] 0.3 mg 2-26 mg by ity of tablet 00:00: mouth (three) Medical times Branch daily. cloNIDine 2020-0 Yes .3mg Take 0.3 [facility] 0.3 mg 2-26 mg by ity of tablet 00:00: mouth (three) Medical times Branch daily. cloNIDine 2020-0 Yes .3mg Take 0.3 [facility] 0.3 mg 2-26 mg by ity of tablet 00:00: mouth (three) Medical times Branch daily. cloNIDine 2020-0 Yes .3mg Take 0.3 [facility] 0.3 mg 2-26 mg by ity of tablet 00:00: mouth (three) Medical times Branch daily. cloNIDine 2020-0 Yes .3mg Take 0.3 [facility] 0.3 mg 2-26 mg by ity of tablet 00:00: mouth (three) Medical times Branch daily. cloNIDine 2020-0 Yes .3mg Take 0.3 [facility] 0.3 mg 2-26 mg by ity of tablet 00:00: mouth (three) Medical times Branch daily. cloNIDine 2020-0 Yes .3mg Take 0.3 [facility] 0.3 mg 2-26 mg by ity of tablet 00:00: mouth (three) Medical times Branch daily. cloNIDine 2020-0 Yes .3mg Take 0.3 [facility] 0.3 mg 2-26 mg by ity of tablet 00:00: mouth (three) Medical times Branch daily. cloNIDine 2020-0 Yes .3mg Take 0.3 [facility] 0.3 mg 2-26 mg by ity of tablet 00:00: mouth (three) Medical times Branch daily. cloNIDine 2020-0 Yes .3mg Take 0.3 [facility] 0.3 mg 2-26 mg by ity of tablet 00:00: mouth (three) Medical times Branch daily. cloNIDine 2020-0 Yes .3mg Take 0.3 [facility] 0.3 mg 2-26 mg by ity of tablet 00:00: mouth (three) Medical times Branch daily. cloNIDine 2020-0 Yes .3mg Take 0.3 [facility] 0.3 mg 2-26 mg by ity of tablet 00:00: mouth (three) Medical times Branch daily. cloNIDine 2020-0 Yes .3mg Take 0.3 [facility] 0.3 mg 2-26 mg by ity of tablet 00:00: mouth (three) Medical times Branch daily. cloNIDine 2020-0 Yes .3mg Take 0.3 [facility] 0.3 mg 2-26 mg by ity of tablet 00:00: mouth (three) Medical times Branch daily. cloNIDine 2020-0 Yes .3mg Take 0.3 [facility] 0.3 mg 2-26 mg by ity of tablet 00:00: mouth (three) Medical times Branch daily. cloNIDine 2020-0 Yes .3mg Take 0.3 [facility] 0.3 mg 2-26 mg by ity of tablet 00:00: mouth (three) Medical times Branch daily. cloNIDine 2020-0 Yes .3mg Take 0.3 [facility] 0.3 mg 2-26 mg by ity of tablet 00:00: mouth 3 [place] 00 (three) Medical times Branch daily. cloNIDine 2020-0 Yes .3mg Take 0.3 [facility] 0.3 mg 2-26 mg by ity of tablet 00:00: mouth 3 [place] 00 (three) Medical times Branch daily. amitriptyli 2020-0 Yes 25mg Take 1 [facility] ers ne 25 mg 2-07 tablet by ity of tablet 00:00: mouth at [place] [address] bedtime. Medical Branch butorphanol 2020-0 Yes USE 1 [facility] rs 10 mg/mL 2-07 SPRAY IN ity of nasal spray 00:00: ONE [place] [address] NOSTRIL Medical EVERY 8 Branch HOURS NEEDED FOR HEADACHE amitriptyli 2020-0 Yes 25mg Take 1 [facility] ers ne 25 mg 2-07 tablet by ity of tablet 00:00: mouth at [place] [address] bedtime. Medical Branch butorphanol 2020-0 Yes USE 1 [facility] rs 10 mg/mL 2-07 SPRAY IN ity of nasal spray 00:00: ONE [place] [address] NOSTRIL Medical EVERY 8 Branch HOURS NEEDED FOR HEADACHE butorphanol 2020-0 Yes USE 1 [facility] rs 10 mg/mL 2-07 SPRAY IN ity of nasal spray 00:00: ONE [place] [address] NOSTRIL Medical EVERY 8 Branch HOURS NEEDED FOR HEADACHE butorphanol 2020-0 2020- No USE 1 [facility] ers 10 mg/mL 2-07 03-05 SPRAY IN ity of nasal spray 00:00: 00:00 ONE [place] 00 :00 NOSTRIL Medical EVERY 8 Branch HOURS NEEDED FOR HEADACHE butorphanol 2020-0 2020- No USE 1 [facility] ers 10 mg/mL 2-07 03-05 SPRAY IN ity of nasal spray 00:00: 00:00 ONE [place] 00 :00 NOSTRIL Medical EVERY 8 Branch HOURS NEEDED FOR HEADACHE amitriptyli 2020-0 2020- No 25mg Take 1 Uni vers ne 25 mg 2-07 03-02 tablet by ity o f tablet 00:00: 00:00 mouth at [place] 00 :00 bedtime. Medical Branch amLODIPine 2020-0 Yes 5mg Take 5 mg Un osbaldo 5 mg tablet 2-06 by mouth 2 it y of 00:00: (two) [place] 00 times Medical daily. Branch amLODIPine 2020-0 Yes 5mg Take 5 mg Un osbaldo 5 mg tablet 2-06 by mouth 2 it y of 00:00: (two) [place] 00 times Medical daily. Branch amLODIPine 2020-0 Yes 5mg Take 5 mg Un osbaldo 5 mg tablet 2-06 by mouth 2 it y of 00:00: (two) [place] 00 times Medical daily. Branch amLODIPine 2020-0 Yes 5mg Take 5 mg [facility] osbaldo 5 mg tablet 2-06 by mouth 2 it y of 00:00: (two) [place] 00 times Medical daily. Branch amLODIPine 2020-0 Yes 5mg Take 5 mg Un osbaldo 5 mg tablet 2-06 by mouth 2 it y of 00:00: (two) [place] 00 times Medical daily. Branch amLODIPine 2020-0 Yes 5mg Take 5 mg [facility] osbaldo 5 mg tablet 2-06 by mouth 2 it y of 00:00: (two) [place] 00 times Medical daily. Branch amLODIPine 2020-0 Yes 5mg Take 5 mg [facility] osbaldo 5 mg tablet 2-06 by mouth 2 it y of 00:00: (two) [place] 00 times Medical daily. Branch amLODIPine 2020-0 Yes 5mg Take 5 mg [facility] os[facility] 5 mg tablet 2-06 by mouth 2 it y of 00:00: (two) [place] 00 times Medical daily. Branch amLODIPine 2020-0 Yes 5mg Take 5 mg [facility] os[facility] 5 mg tablet 2-06 by mouth 2 it y of 00:00: (two) [place] 00 times Medical daily. Branch amLODIPine 2020-0 Yes 5mg Take 5 mg [facility] os[facility] 5 mg tablet 2-06 by mouth 2 it y of 00:00: (two) [place] 00 times Medical daily. Branch amLODIPine 2020-0 Yes 5mg Take 5 mg [facility] 5 mg tablet 2-06 by mouth 2 it y of 00:00: (two) [place] 00 times Medical daily. Branch amLODIPine 2020-0 Yes 5mg Take 5 mg [facility] os[facility] 5 mg tablet 2-06 by mouth 2 it y of 00:00: (two) [place] 00 times Medical daily. Branch amLODIPine 2020-0 Yes 5mg Take 5 mg [facility] os[facility] 5 mg tablet 2-06 by mouth 2 it y of 00:00: (two) [place] 00 times Medical daily. Branch amLODIPine 2020-0 Yes 5mg Take 5 mg [facility] osbaldo 5 mg tablet 2-06 by mouth 2 it y of 00:00: (two) [place] 00 times Medical daily. Branch amLODIPine 2020-0 Yes 5mg Take 5 mg [facility] os[facility] 5 mg tablet 2-06 by mouth 2 it y of 00:00: (two) [place] 00 times Medical daily. Branch amLODIPine 2020-0 Yes 5mg Take 5 mg [facility] os[facility] 5 mg tablet 2-06 by mouth 2 it y of 00:00: (two) [place] 00 times Medical daily. Branch amLODIPine 2020-0 Yes 5mg Take 5 mg [facility] 5 mg tablet 2-06 by mouth 2 it y of 00:00: (two) [place] 00 times Medical daily. Branch amLODIPine 2020-0 Yes 5mg Take 5 mg [facility] os[facility] 5 mg tablet 2-06 by mouth 2 it y of 00:00: (two) [place] 00 times Medical daily. Branch amLODIPine 2020-0 Yes 5mg Take 5 mg [facility] os[facility] 5 mg tablet 2-06 by mouth 2 it y of 00:00: (two) [place] 00 times Medical daily. Branch amLODIPine 2020-0 Yes 5mg Take 5 mg [facility] os[facility] 5 mg tablet 2-06 by mouth 2 it y of 00:00: (two) [place] 00 times Medical daily. Branch amLODIPine 2020-0 Yes 5mg Take 5 mg [facility] 5 mg tablet 2-06 by mouth 2 it y of 00:00: (two) [place] 00 times Medical daily. Branch amLODIPine 2020-0 Yes 5mg Take 5 mg [facility] os[facility] 5 mg tablet 2-06 by mouth 2 it y of 00:00: (two) [place] 00 times Medical daily. Branch amLODIPine 2020-0 Yes 5mg Take 5 mg [facility] os[facility] 5 mg tablet 2-06 by mouth 2 it y of 00:00: (two) [place] 00 times Medical daily. Branch amLODIPine 2020-0 Yes 5mg Take 5 mg [facility] 5 mg tablet 2-06 by mouth 2 it y of 00:00: (two) [place] 00 times Medical daily. Branch amLODIPine 2020-0 Yes 5mg Take 5 mg [facility] 5 mg tablet 2-06 by mouth 2 it y of 00:00: (two) [place] 00 times Medical daily. Branch amLODIPine 2020-0 Yes 5mg Take 5 mg [facility] os[facility] 5 mg tablet 2-06 by mouth 2 it y of 00:00: (two) [place] 00 times Medical daily. Branch amLODIPine 2020-0 Yes 5mg Take 5 mg [facility] os[facility] 5 mg tablet 2-06 by mouth 2 it y of 00:00: (two) [place] 00 times Medical daily. Branch amLODIPine 2020-0 Yes 5mg Take 5 mg [facility] os[facility] 5 mg tablet 2-06 by mouth 2 it y of 00:00: (two) [place] 00 times Medical daily. Branch amLODIPine 2020-0 Yes 5mg Take 5 mg [facility] 5 mg tablet 2-06 by mouth 2 it y of 00:00: (two) [place] 00 times Medical daily. Branch amLODIPine 2020-0 Yes 5mg Take 5 mg [facility] os[facility] 5 mg tablet 2-06 by mouth 2 it y of 00:00: (two) [place] 00 times Medical daily. Branch amLODIPine 2020-0 Yes 5mg Take 5 mg [facility] 5 mg tablet 2-06 by mouth 2 it y of 00:00: (two) [place] 00 times Medical daily. Branch amLODIPine 2020-0 Yes 5mg Take 5 mg [facility] 5 mg tablet 2-06 by mouth 2 it y of 00:00: (two) [place] 00 times Medical daily. Branch amLODIPine 2020-0 Yes 5mg Take 5 mg [facility] 5 mg tablet 2-06 by mouth 2 it y of 00:00: (two) [place] 00 times Medical daily. Branch amLODIPine 2020-0 Yes 5mg Take 5 mg [facility] os[facility] 5 mg tablet 2-06 by mouth 2 it y of 00:00: (two) [place] 00 times Medical daily. Branch amLODIPine 2020-0 Yes 5mg Take 5 mg [facility] 5 mg tablet 2-06 by mouth 2 it y of 00:00: (two) [place] 00 times Medical daily. Branch amLODIPine 2020-0 Yes 5mg Take 5 mg [facility] 5 mg tablet 2-06 by mouth 2 it y of 00:00: (two) [place] 00 times Medical daily. Branch amLODIPine 2020-0 Yes 5mg Take 5 mg [facility] 5 mg tablet 2-06 by mouth 2 it y of 00:00: (two) [place] 00 times Medical daily. Branch amLODIPine 2020-0 Yes 5mg Take 5 mg [facility] 5 mg tablet 2-06 by mouth 2 it y of 00:00: (two) [place] 00 times Medical daily. Branch amLODIPine 2020-0 Yes 5mg Take 5 mg [facility] 5 mg tablet 2-06 by mouth 2 it y of 00:00: (two) [place] 00 times Medical daily. Branch amLODIPine 2020-0 Yes 5mg Take 5 mg [facility] 5 mg tablet 2-06 by mouth 2 it y of 00:00: (two) [place] 00 times Medical daily. Branch amLODIPine 2020-0 Yes 5mg Take 5 mg [facility] 5 mg tablet 2-06 by mouth 2 it y of 00:00: (two) [place] 00 times Medical daily. Branch amLODIPine 2020-0 Yes 5mg Take 5 mg [facility] 5 mg tablet 2-06 by mouth 2 it y of 00:00: (two) [place] 00 times Medical daily. Branch amLODIPine 2020-0 Yes 5mg Take 5 mg [facility] 5 mg tablet 2-06 by mouth 2 it y of 00:00: (two) [place] 00 times Medical daily. Branch amLODIPine 2020-0 Yes 5mg Take 5 mg [facility] 5 mg tablet 2-06 by mouth 2 it y of 00:00: (two) [place] 00 times Medical daily. Branch amLODIPine 2020-0 Yes 5mg Take 5 mg [facility] 5 mg tablet 2-06 by mouth 2 it y of 00:00: (two) [place] 00 times Medical daily. Branch amLODIPine 2020-0 Yes 5mg Take 5 mg [facility] 5 mg tablet 2-06 by mouth 2 it y of 00:00: (two) [place] 00 times Medical daily. Branch amLODIPine 2020-0 Yes 5mg Take 5 mg [facility] 5 mg tablet 2-06 by mouth 2 it y of 00:00: (two) [place] 00 times Medical daily. Branch amLODIPine 2020-0 Yes 5mg Take 5 mg [facility] 5 mg tablet 2-06 by mouth 2 it y of 00:00: (two) [place] 00 times Medical daily. Branch amLODIPine 2020-0 Yes 5mg Take 5 mg [facility] 5 mg tablet 2-06 by mouth 2 it y of 00:00: (two) [place] 00 times Medical daily. Branch amLODIPine 2020-0 Yes 5mg Take 5 mg [facility] 5 mg tablet 2-06 by mouth 2 it y of 00:00: (two) [place] 00 times Medical daily. Branch amLODIPine 2020-0 Yes 5mg Take 5 mg [facility] 5 mg tablet 2-06 by mouth 2 it y of 00:00: (two) [place] 00 times Medical daily. Branch amLODIPine 2020-0 Yes 5mg Take 5 mg [facility] 5 mg tablet 2-06 by mouth 2 it y of 00:00: (two) [place] 00 times Medical daily. Branch amLODIPine 2020-0 Yes 5mg Take 5 mg [facility] 5 mg tablet 2-06 by mouth 2 it y of 00:00: (two) [place] 00 times Medical daily. Branch amLODIPine 2020-0 Yes 5mg Take 5 mg [facility] 5 mg tablet 2-06 by mouth 2 it y of 00:00: (two) [place] 00 times Medical daily. Branch amLODIPine 2020-0 Yes 5mg Take 5 mg [facility] 5 mg tablet 2-06 by mouth 2 it y of 00:00: (two) [place] 00 times Medical daily. Branch amLODIPine 2020-0 Yes 5mg Take 5 mg [facility] os[facility] 5 mg tablet 2-06 by mouth 2 it y of 00:00: (two) [place] 00 times Medical daily. Branch sotalol 80 2020-0 Yes 80mg Take 80 mg U nivers mg tablet 1-16 by mouth ity of 00:00: every 12 [place] [address] (twelve) Medical hours. Branch sotalol 80 2020-0 Yes 80mg Take 80 mg U nivers mg tablet 1-16 by mouth ity of 00:00: every 12 [place] [address] (twelve) Medical hours. Branch sotalol 80 2020-0 Yes 80mg Take 80 mg U nivers mg tablet 1-16 by mouth ity of 00:00: every 12 [place] [address] (twelve) Medical hours. Branch sotalol 80 2020-0 Yes 80mg Take 80 mg U nivers mg tablet 1-16 by mouth ity of 00:00: every 12 [place] [address] (twelve) Medical hours. Branch sotalol 80 2020-0 Yes 80mg Take 80 mg U nivers mg tablet 1-16 by mouth ity of 00:00: every 12 [place] [address] (twelve) Medical hours. Branch sotalol 80 2020-0 Yes 80mg Take 80 mg U nivers mg tablet 1-16 by mouth ity of 00:00: every 12 [place] 00 (twelve) Medical hours. Branch sotalol 80 2020-0 Yes 80mg Take 80 mg U nivers mg tablet 1-16 by mouth ity of 00:00: every 12 [place] 00 (twelve) Medical hours. Branch sotalol 80 2020-0 Yes 80mg Take 80 mg U nivers mg tablet 1-16 by mouth ity of 00:00: every 12 [place] [address] (twelve) Medical hours. Branch sotalol 80 2020-0 Yes 80mg Take 80 mg U nivers mg tablet 1-16 by mouth ity of 00:00: every 12 [place] 00 (twelve) Medical hours. Branch sotalol 80 2020-0 Yes 80mg Take 80 mg U nivers mg tablet 1-16 by mouth ity of 00:00: every 12 [place] 00 (twelve) Medical hours. Branch sotalol 80 2020-0 Yes 80mg Take 80 mg U nivers mg tablet 1-16 by mouth ity of 00:00: every 12 [place] 00 (twelve) Medical hours. Branch sotalol 80 2020-0 Yes 80mg Take 80 mg U nivers mg tablet 1-16 by mouth ity of 00:00: every 12 [place] 00 (twelve) Medical hours. Branch sotalol 80 2020-0 Yes 80mg Take 80 mg U nivers mg tablet 1-16 by mouth ity of 00:00: every 12 [place] 00 (twelve) Medical hours. Branch sotalol 80 2020-0 Yes 80mg Take 80 mg U nivers mg tablet 1-16 by mouth ity of 00:00: every 12 [place] (twelve) Medical hours. Branch sotalol 80 2020-0 Yes 80mg Take 80 mg U nivers mg tablet 1-16 by mouth ity of 00:00: every 12 [place] 00 (twelve) Medical hours. Branch sotalol 80 2020-0 Yes 80mg Take 80 mg U nivers mg tablet 1-16 by mouth ity of 00:00: every 12 [place] 00 (twelve) Medical hours. Branch sotalol 80 2020-0 Yes 80mg Take 80 mg U nivers mg tablet 1-16 by mouth ity of 00:00: every 12 [place] 00 (twelve) Medical hours. Branch sotalol 80 2020-0 Yes 80mg Take 80 mg [facility] n[facility] mg tablet 1-16 by mouth ity of 00:00: every 12 [place] 00 (twelve) Medical hours. Branch sotalol 80 2020-0 Yes 80mg Take 80 mg U nivers mg tablet 1-16 by mouth ity of 00:00: every 12 [place] 00 (twelve) Medical hours. Branch sotalol 80 2020-0 Yes 80mg Take 80 mg U nivers mg tablet 1-16 by mouth ity of 00:00: every 12 [place] 00 (twelve) Medical hours. Branch sotalol 80 2020-0 Yes [facility] mg tablet 1-16 ity of 00:00: [place] 00 Medical Branch sotalol 80 2020-0 Yes [facility] mg tablet 1-16 ity of 00:00: [place] 00 Medical Branch sotalol 80 2020-0 Yes 80mg Take 80 mg U nivers mg tablet 1-16 by mouth ity of 00:00: every 12 [place] 00 (twelve) Medical hours. Branch sotalol 80 2020-0 Yes 80mg Take 80 mg U nivers mg tablet 1-16 by mouth ity of 00:00: every 12 [place] 00 (twelve) Medical hours. Branch sotalol 80 2020-0 Yes 80mg Take 80 mg U nivers mg tablet 1-16 by mouth ity of 00:00: every 12 [place] 00 (twelve) Medical hours. Branch sotalol 80 2020-0 Yes 80mg Take 80 mg U nivers mg tablet 1-16 by mouth ity of 00:00: every 12 [place] 00 (twelve) Medical hours. Branch sotalol 80 2020-0 Yes 80mg Take 80 mg U nivers mg tablet 1-16 by mouth ity of 00:00: every 12 [place] [address] (twelve) Medical hours. Branch sotalol 80 2020-0 Yes 80mg Take 80 mg U nivers mg tablet 1-16 by mouth ity of 00:00: every 12 [place] [address] (twelve) Medical hours. Branch sotalol 80 2020-0 Yes 80mg Take 80 mg U nivers mg tablet 1-16 by mouth ity of 00:00: every 12 [place] [address] (twelve) Medical hours. Branch sotalol 80 2020-0 Yes 80mg Take 80 mg U nivers mg tablet 1-16 by mouth ity of 00:00: every 12 [place] [address] (twelve) Medical hours. Branch sotalol 80 2020-0 Yes 80mg Take 80 mg U nivers mg tablet 1-16 by mouth ity of 00:00: every 12 [place] 00 (twelve) Medical hours. Branch sotalol 80 2020-0 Yes 80mg Take 80 mg U nivers mg tablet 1-16 by mouth ity of 00:00: every 12 [place] 00 (twelve) Medical hours. Branch sotalol 80 2020-0 Yes 80mg Take 80 mg U nivers mg tablet 1-16 by mouth ity of 00:00: every 12 [place] [address] (twelve) Medical hours. Branch sotalol 80 2020-0 Yes 80mg Take 80 mg U nivers mg tablet 1-16 by mouth ity of 00:00: every 12 [place] 00 (twelve) Medical hours. Branch sotalol 80 2020-0 Yes 80mg Take 80 mg U nivers mg tablet 1-16 by mouth ity of 00:00: every 12 [place] 00 (twelve) Medical hours. Branch sotalol 80 2020-0 Yes 80mg Take 80 mg U nivers mg tablet 1-16 by mouth ity of 00:00: every 12 [place] 00 (twelve) Medical hours. Branch sotalol 80 2020-0 Yes 80mg Take 80 mg [facility] nivers mg tablet 1-16 by mouth ity of 00:00: every 12 [place] 00 (twelve) Medical hours. Branch sotalol 80 2020-0 Yes 80mg Take 80 mg [facility] nivers mg tablet 1-16 by mouth ity of 00:00: every 12 [place] 00 (twelve) Medical hours. Branch sotalol 80 2020-0 Yes 80mg Take 80 mg [facility] nivers mg tablet 1-16 by mouth ity of 00:00: every 12 [place] 00 (twelve) Medical hours. Branch sotalol 80 2020-0 Yes 80mg Take 80 mg [facility] nivers mg tablet 1-16 by mouth ity of 00:00: every 12 [place] 00 (twelve) Medical hours. Branch sotalol 80 2020-0 Yes 80mg Take 80 mg U nivers mg tablet 1-16 by mouth ity of 00:00: every 12 [place] 00 (twelve) Medical hours. Branch sotalol 80 2020-0 Yes 80mg Take 80 mg U nivers mg tablet 1-16 by mouth ity of 00:00: every 12 [place] 00 (twelve) Medical hours. Branch sotalol 80 2020-0 Yes 80mg Take 80 mg [facility] nivers mg tablet 1-16 by mouth ity of 00:00: every 12 [place] 00 (twelve) Medical hours. Branch sotalol 80 2020-0 Yes 80mg Take 80 mg U nivers mg tablet 1-16 by mouth ity of 00:00: every 12 [place] 00 (twelve) Medical hours. Branch sotalol 80 2020-0 Yes 80mg Take 80 mg [facility] nivers mg tablet 1-16 by mouth ity of 00:00: every 12 [place] 00 (twelve) Medical hours. Branch sotalol 80 2020-0 Yes 80mg Take 80 mg U nivers mg tablet 1-16 by mouth ity of 00:00: every 12 [place] 00 (twelve) Medical hours. Branch sotalol 80 2020-0 Yes 80mg Take 80 mg U nivers mg tablet 1-16 by mouth ity of 00:00: every 12 [place] 00 (twelve) Medical hours. Branch sotalol 80 2020-0 Yes 80mg Take 80 mg U nivers mg tablet 1-16 by mouth ity of 00:00: every 12 [place] 00 (twelve) Medical hours. Branch sotalol 80 2020-0 Yes 80mg Take 80 mg U nivers mg tablet 1-16 by mouth ity of 00:00: every 12 [place] 00 (twelve) Medical hours. Branch sotalol 80 2020-0 Yes 80mg Take 80 mg U nivers mg tablet 1-16 by mouth ity of 00:00: every 12 [place] 00 (twelve) Medical hours. Branch sotalol 80 2020-0 Yes 80mg Take 80 mg U nivers mg tablet 1-16 by mouth ity of 00:00: every 12 [place] [address] (twelve) Medical hours. Branch sotalol 80 2020-0 Yes 80mg Take 80 mg U nivers mg tablet 1-16 by mouth ity of 00:00: every 12 [place] 00 (twelve) Medical hours. Branch sotalol 80 2020-0 Yes 80mg Take 80 mg U nivers mg tablet 1-16 by mouth ity of 00:00: every 12 [place] 00 (twelve) Medical hours. Branch sotalol 80 2020-0 Yes 80mg Take 80 mg U nivers mg tablet 1-16 by mouth ity of 00:00: every 12 [place] [address] (twelve) Medical hours. Branch sotalol 80 2020-0 Yes 80mg Take 80 mg U nivers mg tablet 1-16 by mouth ity of 00:00: every 12 [place] 00 (twelve) Medical hours. Branch sotalol 80 2020-0 Yes 80mg Take 80 mg U nivers mg tablet 1-16 by mouth ity of 00:00: every 12 [place] 00 (twelve) Medical hours. Branch butorphanol 2019- Yes USE 1 Unive rs 10 mg/mL 2-20 SPRAY IN ity of nasal spray 00:00: ONE [place] [address] NOSTRIL Medical EVERY 8 Branch HOURS NEEDED FOR HEADACHE butorphanol 2019- Yes USE 1 Unive rs 10 mg/mL 2-20 SPRAY IN ity of nasal spray 00:00: ONE [place] [address] NOSTRIL Medical EVERY 8 Branch HOURS NEEDED FOR HEADACHE butorphanol 2018-02 Yes USE 1 Unive rs 10 mg/mL 2-20 SPRAY IN ity of nasal spray 00:00: ONE [place] [address] NOSTRIL Medical EVERY 8 Branch HOURS NEEDED FOR HEADACHE butorphanol 2018-02 Yes USE 1 Unive rs 10 mg/mL 2-20 SPRAY IN ity of nasal spray 00:00: ONE [place] [address] NOSTRIL Medical EVERY 8 Branch HOURS NEEDED FOR HEADACHE butorphanol 2018-02 Yes USE 1 Unive rs 10 mg/mL 2-20 SPRAY IN ity of nasal spray 00:00: ONE [place] NOSTRIL Medical EVERY 8 Branch HOURS NEEDED FOR HEADACHE butorphanol 2018-02 2020- No USE 1 Univ ers 10 mg/mL 2-20 02-07 SPRAY IN ity of nasal spray 00:00: 00:00 ONE [place] 00 :00 NOSTRIL Medical EVERY 8 Branch HOURS NEEDED FOR HEADACHE butorphanol 2018- 2020- No USE 1 Univ ers 10 mg/mL 2-20 02-07 SPRAY IN ity of nasal spray 00:00: 00:00 ONE [place] 00 :00 NOSTRIL Medical EVERY 8 Branch HOURS NEEDED FOR HEADACHE pantoprazol 2018-02 Yes 40mg Take 40 mg Univers e 40 mg EC 2-17 by mouth ity o f tablet 00:00: daily. [address] pantoprazol 2018-02 Yes 40mg Take 40 mg Univers e 40 mg EC 2-17 by mouth ity o f tablet 00:00: daily. [address] pantoprazol 2018-02 Yes 40mg Take 40 mg Univers e 40 mg EC 2-17 by mouth ity o f tablet 00:00: daily. [address] pantoprazol 2018-02 Yes 40mg Take 40 mg Univers e 40 mg EC 2-17 by mouth ity o f tablet 00:00: daily. [address] pantoprazol 2018-02 Yes 40mg Take 40 mg Univers e 40 mg EC 2-17 by mouth ity o f tablet 00:00: daily. [address] pantoprazol 2018-02 Yes 40mg Take 40 mg Univers e 40 mg EC 2-17 by mouth ity o f tablet 00:00: daily. [address] pantoprazol 2018-02 Yes 40mg Take 40 mg Univers e 40 mg EC 2-17 by mouth ity o f tablet 00:00: daily. [place] [facility] pantoprazol 2018-02 Yes 40mg Take 40 mg Univers e 40 mg EC 2-17 by mouth ity o f tablet 00:00: daily. [place] [facility] pantoprazol 2018-02 Yes 40mg Take 40 mg Univers e 40 mg EC 2-17 by mouth ity o f tablet 00:00: daily. [place] [facility] pantoprazol 2018-02 Yes 40mg Take 40 mg Univers e 40 mg EC 2-17 by mouth ity o f tablet 00:00: daily. [place] [facility] pantoprazol 2018-02 Yes 40mg Take 40 mg Univers e 40 mg EC 2-17 by mouth ity o f tablet 00:00: daily. [place] [facility] pantoprazol 2018-02 Yes 40mg Take 40 mg Univers e 40 mg EC 2-17 by mouth ity o f tablet 00:00: daily. [place] [facility] pantoprazol 2018-02 Yes 40mg Take 40 mg Univers e 40 mg EC 2-17 by mouth ity o f tablet 00:00: daily. [place] [facility] pantoprazol 2018-02 Yes 40mg Take 40 mg Univers e 40 mg EC 2-17 by mouth ity o f tablet 00:00: daily. [place] [facility] pantoprazol 2018-02 Yes 40mg Take 40 mg Univers e 40 mg EC 2-17 by mouth ity o f tablet 00:00: daily. [place] [facility] pantoprazol 2018-02 Yes 40mg Take 40 mg Univers e 40 mg EC 2-17 by mouth ity o f tablet 00:00: daily. [place] [facility] pantoprazol 2018-02 Yes 40mg Take 40 mg Univers e 40 mg EC 2-17 by mouth ity o f tablet 00:00: daily. [place] [facility] pantoprazol 2018-02 Yes 40mg Take 40 mg Univers e 40 mg EC 2-17 by mouth ity o f tablet 00:00: daily. [place] [facility] pantoprazol 2018-02 Yes 40mg Take 40 mg Univers e 40 mg EC 2-17 by mouth ity o f tablet 00:00: daily. [address] pantoprazol 2018-02 Yes 40mg Take 40 mg Univers e 40 mg EC 2-17 by mouth ity o f tablet 00:00: daily. [address] pantoprazol 2018-02 Yes 40mg Take 40 mg Univers e 40 mg EC 2-17 by mouth ity o f tablet 00:00: daily. [place] [facility] pantoprazol 2018-02 Yes 40mg Take 40 mg Univers e 40 mg EC 2-17 by mouth ity o f tablet 00:00: daily. [place] [facility] pantoprazol 2018-02 Yes 40mg Take 40 mg Univers e 40 mg EC 2-17 by mouth ity o f tablet 00:00: daily. [place] [facility] pantoprazol 2018-02 Yes 40mg Take 40 mg Univers e 40 mg EC 2-17 by mouth ity o f tablet 00:00: daily. [place] [facility] pantoprazol 2018-02 Yes 40mg Take 40 mg Univers e 40 mg EC 2-17 by mouth ity o f tablet 00:00: daily. [place] [facility] pantoprazol 2018-02 Yes 40mg Take 40 mg Univers e 40 mg EC 2-17 by mouth ity o f tablet 00:00: daily. [place] [facility] pantoprazol 2018-02 Yes 40mg Take 40 mg Univers e 40 mg EC 2-17 by mouth ity o f tablet 00:00: daily. [place] [facility] pantoprazol 2018-02 Yes 40mg Take 40 mg Univers e 40 mg EC 2-17 by mouth ity o f tablet 00:00: daily. [address] pantoprazol 2018-02 Yes 40mg Take 40 mg Univers e 40 mg EC 2-17 by mouth ity o f tablet 00:00: daily. [address] pantoprazol 2018-02 Yes 40mg Take 40 mg Univers e 40 mg EC 2-17 by mouth ity o f tablet 00:00: daily. [place] [facility] pantoprazol 2018-02 Yes 40mg Take 40 mg Univers e 40 mg EC 2-17 by mouth ity o f tablet 00:00: daily. [address] pantoprazol 2018-02 Yes 40mg Take 40 mg Univers e 40 mg EC 2-17 by mouth ity o f tablet 00:00: daily. [address] pantoprazol 2018-02 Yes 40mg Take 40 mg Univers e 40 mg EC 2-17 by mouth ity o f tablet 00:00: daily. [address] pantoprazol 2018-02 Yes 40mg Take 40 mg Univers e 40 mg EC 2-17 by mouth ity o f tablet 00:00: daily. [place] [facility] pantoprazol 2018-02 Yes 40mg Take 40 mg Univers e 40 mg EC 2-17 by mouth ity o f tablet 00:00: daily. [place] [facility] pantoprazol 2018-02 Yes 40mg Take 40 mg Univers e 40 mg EC 2-17 by mouth ity o f tablet 00:00: daily. [place] [facility] pantoprazol 2018-02 Yes 40mg Take 40 mg Univers e 40 mg EC 2-17 by mouth ity o f tablet 00:00: daily. [place] [facility] pantoprazol 2018-02 Yes 40mg Take 40 mg Univers e 40 mg EC 2-17 by mouth ity o f tablet 00:00: daily. [place] [facility] pantoprazol 2018-02 Yes 40mg Take 40 mg Univers e 40 mg EC 2-17 by mouth ity o f tablet 00:00: daily. [place] [facility] pantoprazol 2018-02 Yes 40mg Take 40 mg Univers e 40 mg EC 2-17 by mouth ity o f tablet 00:00: daily. [place] [facility] pantoprazol 2018-02 Yes 40mg Take 40 mg Univers e 40 mg EC 2-17 by mouth ity o f tablet 00:00: daily. [place] [facility] pantoprazol 2018-02 Yes 40mg Take 40 mg Univers e 40 mg EC 2-17 by mouth ity o f tablet 00:00: daily. [place] [facility] pantoprazol 2018-02 Yes 40mg Take 40 mg Univers e 40 mg EC 2-17 by mouth ity o f tablet 00:00: daily. [place] [facility] pantoprazol 2018-02 Yes 40mg Take 40 mg Univers e 40 mg EC 2-17 by mouth ity o f tablet 00:00: daily. [place] [facility] pantoprazol 2018-02 Yes 40mg Take 40 mg Univers e 40 mg EC 2-17 by mouth ity o f tablet 00:00: daily. [place] [facility] pantoprazol 2018-02 Yes 40mg Take 40 mg Univers e 40 mg EC 2-17 by mouth ity o f tablet 00:00: daily. [address] pantoprazol 2018-02 Yes 40mg Take 40 mg Univers e 40 mg EC 2-17 by mouth ity o f tablet 00:00: daily. [place] [facility] pantoprazol 2018-02 Yes 40mg Take 40 mg Univers e 40 mg EC 2-17 by mouth ity o f tablet 00:00: daily. [facility] pantoprazol 2018-02 Yes 40mg Take 40 mg Univers e 40 mg EC 2-17 by mouth ity o f tablet 00:00: daily. [facility] pantoprazol 2018-02 Yes 40mg Take 40 mg Univers e 40 mg EC 2-17 by mouth ity o f tablet 00:00: daily. [facility] pantoprazol 2018-02 Yes 40mg Take 40 mg Univers e 40 mg EC 2-17 by mouth ity o f tablet 00:00: daily. [facility] pantoprazol 2018-02 Yes 40mg Take 40 mg Univers e 40 mg EC 2-17 by mouth ity o f tablet 00:00: daily. [facility] pantoprazol 2018-02 Yes 40mg Take 40 mg Univers e 40 mg EC 2-17 by mouth ity o f tablet 00:00: daily. [facility] pantoprazol 2018-02 Yes 40mg Take 40 mg Univers e 40 mg EC 2-17 by mouth ity o f tablet 00:00: daily. [place] [facility] busPIRone 5 2018-02 Yes [id number] TAKE 1 [facility] mg tablet 0- 9102 TABLET BY ity o f 00:00: MOUTH TWICE A Medical DAY Branch busPIRone 5 2018-02 Yes [id number] TAKE 1 [facility] mg tablet 0- 9102 TABLET BY ity o f 00:00: MOUTH TWICE A Medical DAY Branch busPIRone 5 2018-02 Yes [id number] TAKE 1 [facility] mg tablet 0- 9102 TABLET BY ity o f 00:00: MOUTH TWICE A Medical DAY Branch busPIRone 5 2018-02 Yes [id number] TAKE 1 [facility] mg tablet 0-01 9102 TABLET BY ity o f 00:00: MOUTH TWICE A Medical DAY Branch busPIRone 5 2018-02 Yes [id number] TAKE 1 [facility] mg tablet 0-01 9102 TABLET BY ity o f 00:00: MOUTH TWICE A Medical DAY Branch busPIRone 5 2018-02 Yes [id number] TAKE 1 [facility] mg tablet 0- 9102 TABLET BY ity o f 00:00: MOUTH [place] 00 TWICE A Medical DAY Branch busPIRone 5 2018-02 Yes [id number] TAKE 1 [facility] mg tablet 0- 9102 TABLET BY ity o f 00:00: MOUTH 00 TWICE A Medical DAY Branch busPIRone 5 2018-02 Yes [id number] TAKE 1 [facility] mg tablet 0- 9102 TABLET BY ity o f 00:00: MOUTH 00 TWICE A Medical DAY Branch busPIRone 5 2018-02 Yes [id number] TAKE 1 [facility] mg tablet 0- 9102 TABLET BY ity o f 00:00: MOUTH 00 TWICE A Medical DAY Branch busPIRone 5 2018-02 Yes [id number] TAKE 1 [facility] mg tablet 0- 9102 TABLET BY ity o f 00:00: MOUTH 00 TWICE A Medical DAY Branch busPIRone 5 2018-02 Yes [id number] TAKE 1 [facility] mg tablet 0- 9102 TABLET BY ity o f 00:00: MOUTH 00 TWICE A Medical DAY Branch busPIRone 5 2018-02 Yes [id number] TAKE 1 [facility] mg tablet 0-02 TABLET BY ity o f 00:00: MOUTH 00 TWICE A Medical DAY Branch busPIRone 5 2018-02 Yes [id number] TAKE 1 [facility] mg tablet 0- 9102 TABLET BY ity o f 00:00: MOUTH 00 TWICE A Medical DAY Branch busPIRone 5 2018-02 2020- No [id number] TAKE 1 [facility] mg tablet 0-04-19 9102 TABLET BY ity of 00:00: 00:00 MOUTH [place] 00 :00 TWICE A Medical DAY Branch BUSPIRONE 5 Yes [id number] TAKE 1 [facility] mg tablet 09-08 9102 TABLET BY ity o f 00:00: MOUTH 00 TWICE A Medical DAY Branch butorphanol Yes [id number] 1{spray Use 1 [facility] 10 mg/mL 08-21 } [place] in ity of nasal spray 00:00: each 00 nostril Medical every 8 Branch (eight) hours as needed for Pain. insulin Yes 60U inject 60 Unive rs detemir 5-14 Units ity of U-100 100 18:55: under the [place] as unit/mL 56 skin. Medical injection Branch insulin Yes inject Univers lispro, 5-14 under the ity of human, 100 18:55: skin. [place] unit/mL 56 Medical injection Branch insulin 2018-0 Yes 60U inject 60 Unive rs detemir 5-14 Units ity of U-100 100 18:55: under the [place] as unit/mL 56 skin. Medical injection Branch insulin 0 Yes inject [facility] lispro, 5-14 under the ity of human, 100 18:55: skin. [place] unit/mL 56 Medical injection Branch insulin 0 Yes 60U inject 60 Unive rs detemir 5-14 Units ity of U-100 100 18:55: under the [place] as unit/mL 56 skin. Medical injection Branch insulin 0 Yes inject [facility] lispro, 5-14 under the ity of human, 100 18:55: skin. [place] unit/mL 56 Medical injection Branch insulin 0 Yes 60U inject 60 Unive rs detemir 5-14 Units ity of U-100 100 18:55: under the [place] as unit/mL 56 skin. Medical injection Branch insulin 0 Yes inject [facility] lispro, 5-14 under the ity of human, 100 18:55: skin. [place] unit/mL 56 Medical injection Branch insulin 0 Yes 60U inject 60 Unive rs detemir 5-14 Units ity of U-100 100 18:55: under the [place] as unit/mL 56 skin. Medical injection Branch insulin 0 Yes inject [facility] lispro, 5-14 under the ity of human, 100 18:55: skin. [place] unit/mL 56 Medical injection Branch insulin 0 Yes 60U inject 60 Unive rs detemir 5-14 Units ity of U-100 100 18:55: under the [place] as unit/mL 56 skin. Medical injection Branch insulin 0 Yes inject [facility] lispro, 5-14 under the ity of human, 100 18:55: skin. [place] unit/mL 56 Medical injection Branch insulin 2018-0 Yes 60U inject 60 Unive rs detemir 5-14 Units ity of U-100 100 18:55: under the [place] as unit/mL 56 skin. Medical injection Branch insulin 0 Yes inject [facility] lispro, 5-14 under the ity of human, 100 18:55: skin. [place] unit/mL 56 Medical injection Branch insulin 2018-0 Yes 60U inject 60 Unive rs detemir 5-14 Units ity of U-100 100 18:55: under the [place] as unit/mL 56 skin. Medical injection Branch insulin 0 Yes inject [facility] lispro, 5-14 under the ity of human, 100 18:55: skin. [place] unit/mL 56 Medical injection Branch insulin 0 Yes 60U inject 60 Unive rs detemir 5-14 Units ity of U-100 100 18:55: under the [place] as unit/mL 56 skin. Medical injection Branch insulin 0 Yes inject [facility] lispro, 5-14 under the ity of human, 100 18:55: skin. [place] unit/mL 56 Medical injection Branch insulin 0 Yes 60U inject 60 Unive rs detemir 5-14 Units ity of U-100 100 18:55: under the [place] as unit/mL 56 skin. Medical injection Branch insulin 0 Yes inject [facility] lispro, 5-14 under the ity of human, 100 18:55: skin. [place] unit/mL 56 Medical injection Branch insulin Yes 60U inject 60 Unive rs detemir 5-14 Units ity of U-100 100 18:55: under the [place] as unit/mL 56 skin. Medical injection Branch insulin 0 Yes inject [facility] lispro, 5-14 under the ity of human, 100 18:55: skin. [place] unit/mL 56 Medical injection Branch pregabalin 0 Yes 300mg Take 300 Un osbaldo 300 mg 5-14 mg by ity of capsule 17:05: mouth. [address] hydrALAZINE 0 Yes 50mg Take 50 mg Univers 50 mg 5-14 by mouth. ity of tablet 17:05: [address] losartan-hy Yes Take by Un osbaldo drochloroth 5-14 mouth. ity of iazide 17:05: [place] 100-25 mg 39 Medical per tablet Branch carvedilol 0 Yes 25mg Take 25 mg U nivers 12.5 mg 5-14 by mouth. ity of tablet 17:05: [address] acetaminoph 0 Yes 500mg Take 500 U nivers en (TYLENOL 5-14 mg by ity of EXTRA 17:05: mouth [place] STRENGTH) 39 every 6 Medical 500 mg (six) Branch tablet hours as needed for Pain. aspirin-nhi 2019-0 Yes 1{tbl} Take 1 Un osbaldo taminophen- 5-14 tablet by ity of caffeine 17:05: mouth [place] (EXCEDRIN 39 every 6 Medical MIGRAINE) (six) Branch 250-250-65 hours as mg per needed for tablet Pain. nitroglycer 2019-[address] 0.3 U nivers in 0.3 mg 5-14 mg under ity of sublingual 17:05: the tongue [place] tablet 39 every 5 Medical (five) Branch minutes as needed for Chest pain. pregabalin 2019-0 Yes 300mg Take 300 Un osbaldo 300 mg 5-14 mg by ity of capsule 17:05: mouth. [place] [address] Medical Branch hydrALAZINE 0 Yes 50mg Take 50 mg Univers 50 mg 5-14 by mouth. ity of tablet 17:05: [address] Branch losartan-hy 0 Yes Take by Un osbaldo drochloroth 5-14 mouth. ity of iazide 17:05: [place] 100-25 mg 39 Medical per tablet Branch carvedilol 0 Yes 25mg Take 25 mg U nivers 12.5 mg 5-14 by mouth. ity of tablet 17:05: [place] [address] Medical Branch acetaminoph 0 Yes 500mg Take 500 U nivers en (TYLENOL 5-14 mg by ity of EXTRA 17:05: mouth [place] STRENGTH) 39 every 6 Medical 500 mg (six) Branch tablet hours as needed for Pain. aspirin-nhi 2018-0 Yes 1{tbl} Take 1 Un osbaldo taminophen- 5-14 tablet by ity of caffeine 17:05: mouth [place] (EXCEDRIN 39 every 6 Medical MIGRAINE) (six) Branch 250-250-65 hours as mg per needed for tablet Pain. nitroglycer 2019-[address] 0.3 U nivers in 0.3 mg 5-14 mg under ity of sublingual 17:05: the tongue [place] tablet 39 every 5 Medical (five) Branch minutes as needed for Chest pain. pregabalin 2019-0 Yes 300mg Take 300 Un os[place] 300 mg 5-14 mg by ity of capsule 17:05: mouth. [address] Branch hydrALAZINE 2018-0 Yes 50mg Take 50 mg Univers 50 mg 5-14 by mouth. ity of tablet 17:05: [place] 39 Medical Branch losartan-hy 0 Yes Take by Un osbaldo drochloroth 5-14 mouth. ity of iazide 17:05: [place] 100-25 mg 39 Medical per tablet Branch carvedilol 0 Yes 25mg Take 25 mg U nivers 12.5 mg 5-14 by mouth. ity of tablet 17:05: [place] [address] Medical Branch acetaminoph 0 Yes 500mg Take 500 U nivers en (TYLENOL 5-14 mg by ity of EXTRA 17:05: mouth [place] STRENGTH) 39 every 6 Medical 500 mg (six) Branch tablet hours as needed for Pain. aspirin-nhi Yes 1{tbl} Take 1 Un osbaldo taminophen- 5-14 tablet by ity of caffeine 17:05: mouth [place] (EXCEDRIN 39 every 6 Medical MIGRAINE) (six) Branch 250-250-65 hours as mg per needed for tablet Pain. nitroglycer Yes .3mg Place 0.3 U nivers in 0.3 mg 5-14 mg under ity of sublingual 17:05: the tongue [place] tablet 39 every 5 Medical (five) Branch minutes as needed for Chest pain. pregabalin Yes 300mg Take 300 Un os[place] 300 mg 5-14 mg by ity of capsule 17:05: mouth. [address] Branch pregabalin 2018-0 Yes 300mg Take 300 Un os[place] 300 mg 5-14 mg by ity of capsule 17:05: mouth. [place] [address] Medical Branch hydrALAZINE 0 Yes 50mg Take 50 mg Univers 50 mg 5-14 by mouth. ity of tablet 17:05: [address] Branch losartan-hy 0 Yes Take by Un osbaldo drochloroth 5-14 mouth. ity of iazide 17:05: [place] 100-25 mg 39 Medical per tablet Branch hydrALAZINE 0 Yes 50mg Take 50 mg Univers 50 mg 5-14 by mouth. ity of tablet 17:05: [address] Branch carvedilol 0 Yes 25mg Take 25 mg U nivers 12.5 mg 5-14 by mouth. ity of tablet 17:05: [address] Branch acetaminoph 0 Yes 500mg Take 500 U nivers en (TYLENOL 5-14 mg by ity of EXTRA 17:05: mouth [place] STRENGTH) 39 every 6 Medical 500 mg (six) Branch tablet hours as needed for Pain. aspirin-nhi 2019-0 Yes 1{tbl} Take 1 Un [place] taminophen- 5-14 tablet by ity of caffeine 17:05: mouth [place] (EXCEDRIN 39 every 6 Medical MIGRAINE) (six) Branch 250-250-65 hours as mg per needed for tablet Pain. nitroglycer 2019-[address] 0.3 U nivers in 0.3 mg 5-14 mg under ity of sublingual 17:05: the tongue [place] tablet 39 every 5 Medical (five) Branch minutes as needed for Chest pain. losartan-hy 2019-0 Yes Take by Un osbaldo drochloroth 5-14 mouth. ity of iazide 17:05: [place] 100-25 mg 39 Medical per tablet Branch pregabalin 2019-0 Yes 300mg Take 300 Un osbalod 300 mg 5-14 mg by ity of capsule 17:05: mouth. [address] Branch hydrALAZINE 2018-0 Yes 50mg Take 50 mg Univers 50 mg 5-14 by mouth. ity of tablet 17:05: [address] Branch losartan-hy 2019-0 Yes Take by Un osbaldo drochloroth 5-14 mouth. ity of iazide 17:05: [place] 100-25 mg 39 Medical per tablet Branch carvedilol 2019-0 Yes 25mg Take 25 mg U nivers 12.5 mg 5-14 by mouth. ity of tablet 17:05: [address] Branch acetaminoph 2019-0 Yes 500mg Take 500 U nivers en (TYLENOL 5-14 mg by ity of EXTRA 17:05: mouth [place] STRENGTH) 39 every 6 Medical 500 mg (six) Branch tablet hours as needed for Pain. aspirin-nhi 2019-0 Yes 1{tbl} Take 1 Un [place]bal[place] taminophen- 5-14 tablet by ity of caffeine 17:05: mouth [place] (EXCEDRIN 39 every 6 Medical MIGRAINE) (six) Branch 250-250-65 hours as mg per needed for tablet Pain. nitroglycer 2019-[address] 0.3 U nivers in 0.3 mg 5-14 mg under ity of sublingual 17:05: the tongue [place] tablet 39 every 5 Medical (five) Branch minutes as needed for Chest pain. pregabalin 2018-0 Yes 300mg Take 300 [facility] 300 mg 5-14 mg by ity of capsule 17:05: mouth. [address] Branch hydrALAZINE 0 Yes 50mg Take 50 mg [facility] 50 mg 5-14 by mouth. ity of tablet 17:05: [address] Branch losartan-hy 0 Yes Take by [facility] drochloroth 5-14 mouth. ity of iazide 17:05: [place] 100-25 mg 39 Medical per tablet Branch carvedilol 2018-0 Yes 25mg Take 25 mg U nivers 12.5 mg 5-14 by mouth. ity of tablet 17:05: [address] Branch acetaminoph 0 Yes 500mg Take 500 U nivers en (TYLENOL 5-14 mg by ity of EXTRA 17:05: mouth [place] STRENGTH) 39 every 6 Medical 500 mg (six) Branch tablet hours as needed for Pain. aspirin-nhi Yes 1{tbl} Take 1 Un [facility] taminophen- 5-14 tablet by ity of caffeine 17:05: mouth [place] (EXCEDRIN 39 every 6 Medical MIGRAINE) (six) Branch 250-250-65 hours as mg per needed for tablet Pain. nitroglycer Yes .3mg Place 0.3 U nivers in 0.3 mg 5-14 mg under ity of sublingual 17:05: the tongue [place] tablet 39 every 5 Medical (five) Branch minutes as needed for Chest pain. carvedilol Yes 25mg Take 25 mg U nivers 12.5 mg 5-14 by mouth. ity of tablet 17:05: [address] Branch pregabalin 2018-0 Yes 300mg Take 300 [facility] 300 mg 5-14 mg by ity of capsule 17:05: mouth. [place] [address] Medical Branch hydrALAZINE 0 Yes 50mg Take 50 mg [facility] 50 mg 5-14 by mouth. ity of tablet 17:05: [address] Branch losartan-hy 2018-0 Yes Take by [facility] drochloroth 5-14 mouth. ity of iazide 17:05: [place] 100-25 mg 39 Medical per tablet Branch acetaminoph 0 Yes 500mg Take 500 U nivers en (TYLENOL 5-14 mg by ity of EXTRA 17:05: mouth [place] STRENGTH) 39 every 6 Medical 500 mg (six) Branch tablet hours as needed for Pain. acetaminoph 2019-0 Yes 500mg Take 500 U nivers en (TYLENOL 5-14 mg by ity of EXTRA 17:05: mouth [place] STRENGTH) 39 every 6 Medical 500 mg (six) Branch tablet hours as needed for Pain. nitroglycer 2018-[address] 0.3 U nivers in 0.3 mg 5-14 mg under ity of sublingual 17:05: the tongue [place] tablet 39 every 5 Medical (five) Branch minutes as needed for Chest pain. aspirin-nhi 2018-0 Yes 1{tbl} Take 1 [facility] taminophen- 5-14 tablet by ity of caffeine 17:05: mouth [place] (EXCEDRIN 39 every 6 Medical MIGRAINE) (six) Branch 250-250-65 hours as mg per needed for tablet Pain. nitroglycer [address] 0.3 U nivers in 0.3 mg 5-14 mg under ity of sublingual 17:05: the tongue [place] tablet 39 every 5 Medical (five) Branch minutes as needed for Chest pain. pregabalin 2019-0 Yes 300mg Take 300 [facility] 300 mg 5-14 mg by ity of capsule 17:05: mouth. [address] Branch hydrALAZINE 0 Yes 50mg Take 50 mg [facility] 50 mg 5-14 by mouth. ity of tablet 17:05: [address] losartan-hy 2018-0 Yes Take by [facility] drochloroth 5-14 mouth. ity of iazide 17:05: [place] 100-25 mg 39 Medical per tablet Branch acetaminoph 2019-0 Yes 500mg Take 500 U nivers en (TYLENOL 5-14 mg by ity of EXTRA 17:05: mouth [place] STRENGTH) 39 every 6 Medical 500 mg (six) Branch tablet hours as needed for Pain. nitroglycer 2018-[address] 0.3 U nivers in 0.3 mg 5-14 mg under ity of sublingual 17:05: the tongue [place] tablet 39 every 5 Medical (five) Branch minutes as needed for Chest pain. pregabalin 2019-0 Yes 300mg Take 300 [facility] 300 mg 5-14 mg by ity of capsule 17:05: mouth. [place] 39 Medical Branch hydrALAZINE 0 Yes 50mg Take 50 mg [facility] 50 mg 5-14 by mouth. ity of tablet 17:05: [address] Branch losartan-hy 2018-0 Yes Take by [facility] drochloroth 5-14 mouth. ity of iazide 17:05: [place] 100-25 mg 39 Medical per tablet Branch carvedilol 0 Yes 25mg Take 25 mg U nivers 12.5 mg 5-14 by mouth. ity of tablet 17:05: [address] Branch acetaminoph Yes 500mg Take 500 U nivers en (TYLENOL 5-14 mg by ity of EXTRA 17:05: mouth [place] STRENGTH) 39 every 6 Medical 500 mg (six) Branch tablet hours as needed for Pain. aspirin-nhi Yes 1{tbl} Take 1 [facility] taminophen- 5-14 tablet by ity of caffeine 17:05: mouth [place] (EXCEDRIN 39 every 6 Medical MIGRAINE) (six) Branch 250-250-65 hours as mg per needed for tablet Pain. nitroglycer Yes .3mg Place 0.3 U nivers in 0.3 mg 5-14 mg under ity of sublingual 17:05: the tongue [place] tablet 39 every 5 Medical (five) Branch minutes as needed for Chest pain. pregabalin Yes 300mg Take 300 [facility] 300 mg 5-14 mg by ity of capsule 17:05: mouth. [address] Branch hydrALAZINE 0 Yes 50mg Take 50 mg [facility] 50 mg 5-14 by mouth. ity of tablet 17:05: [address] Branch losartan-hy 0 Yes Take by [facility] drochloroth 5-14 mouth. ity of iazide 17:05: [place] 100-25 mg 39 Medical per tablet Branch carvedilol 0 Yes 25mg Take 25 mg U nivers 12.5 mg 5-14 by mouth. ity of tablet 17:05: [place] [address] Medical Branch acetaminoph 0 Yes 500mg Take 500 U nivers en (TYLENOL 5-14 mg by ity of EXTRA 17:05: mouth [place] STRENGTH) 39 every 6 Medical 500 mg (six) Branch tablet hours as needed for Pain. aspirin-nhi 2018- Yes 1{tbl} Take 1 [facility] taminophen- 5-14 tablet by ity of caffeine 17:05: mouth [place] (EXCEDRIN 39 every 6 Medical MIGRAINE) (six) Branch 250-250-65 hours as mg per needed for tablet Pain. nitroglycer 2019-[address] 0.3 U nivers in 0.3 mg 5-14 mg under ity of sublingual 17:05: the tongue [place] tablet 39 every 5 Medical (five) Branch minutes as needed for Chest pain. pregabalin 2019-0 Yes 300mg Take 300 [facility] 300 mg 5-14 mg by ity of capsule 17:05: mouth. [place] [address] Medical Branch hydrALAZINE 2019-0 Yes 50mg Take 50 mg [facility] 50 mg 5-14 by mouth. ity of tablet 17:05: [address] Branch losartan-hy 2018-0 Yes Take by [facility] drochloroth 5-14 mouth. ity of iazide 17:05: [place] 100-25 mg 39 Medical per tablet Branch carvedilol 2018-0 Yes 25mg Take 25 mg U nivers 12.5 mg 5-14 by mouth. ity of tablet 17:05: [address] Branch acetaminoph 0 Yes 500mg Take 500 U nivers en (TYLENOL 5-14 mg by ity of EXTRA 17:05: mouth [place] STRENGTH) 39 every 6 Medical 500 mg (six) Branch tablet hours as needed for Pain. aspirin-nhi 2018-0 Yes 1{tbl} Take 1 [facility] taminophen- 5-14 tablet by ity of caffeine 17:05: mouth [place] (EXCEDRIN 39 every 6 Medical MIGRAINE) (six) Branch 250-250-65 hours as mg per needed for tablet Pain. nitroglycer 2019-[address] 0.3 U nivers in 0.3 mg 5-14 mg under ity of sublingual 17:05: the tongue [place] tablet 39 every 5 Medical (five) Branch minutes as needed for Chest pain. pregabalin 2019-0 Yes 300mg Take 300 [facility] 300 mg 5-14 mg by ity of capsule 17:05: mouth. [address] Branch hydrALAZINE 2019-0 Yes 50mg Take 50 mg [facility] 50 mg 5-14 by mouth. ity of tablet 17:05: [address] Branch losartan-hy 2018-0 Yes Take by [facility] drochloroth 5-14 mouth. ity of iazide 17:05: [place] 100-25 mg 39 Medical per tablet Branch carvedilol Yes 25mg Take 25 mg U nivers 12.5 mg 5-14 by mouth. ity of tablet 17:05: [place] 39 Medical Branch acetaminoph Yes 500mg Take 500 U nivers en (TYLENOL 5-14 mg by ity of EXTRA 17:05: mouth [place] STRENGTH) 39 every 6 Medical 500 mg (six) Branch tablet hours as needed for Pain. aspirin-nhi Yes 1{tbl} Take 1 [facility] taminophen- 5-14 tablet by ity of caffeine 17:05: mouth [place] (EXCEDRIN 39 every 6 Medical MIGRAINE) (six) Branch 250-250-65 hours as mg per needed for tablet Pain. nitroglycer Yes .3mg Place 0.3 U nivers in 0.3 mg 5-14 mg under ity of sublingual 17:05: the tongue [place] tablet 39 every 5 Medical (five) Branch minutes as needed for Chest pain. busPIRone 5 2019- No [id number] 5mg Take 1 Univers mg tablet 5-14 09-08 9102 tablet by ity of 00:00: 00:00 mouth 2 [place] 00 :00 (two) Medical times Branch daily. methIMAzole Yes 10mg Take 10 mg [facility] 10 mg 4-24 by mouth ity of tablet 00:00: daily. [address] methIMAzole Yes 10mg Take 10 mg Univers 10 mg 4-24 by mouth ity of tablet 00:00: daily. [address] methIMAzole Yes 10mg Take 10 mg [facility] 10 mg 4-24 by mouth ity of tablet 00:00: daily. [address] methIMAzole Yes 10mg Take 10 mg [facility] 10 mg 4-24 by mouth ity of tablet 00:00: daily. [address] methIMAzole Yes 10mg Take 10 mg [facility] 10 mg 4-24 by mouth ity of tablet 00:00: daily. [address] methIMAzole Yes 10mg Take 10 mg [facility] 10 mg 4-24 by mouth ity of tablet 00:00: daily. [address] methIMAzole 2019-0 Yes 10mg Take 10 mg [facility] 10 mg 4-24 by mouth ity of tablet 00:00: daily. [facility] methIMAzole 2019-0 Yes 10mg Take 10 mg [facility] 10 mg 4-24 by mouth ity of tablet 00:00: daily. [place] [facility] methIMAzole 2019-0 Yes 10mg Take 10 mg [facility] 10 mg 4-24 by mouth ity of tablet 00:00: daily. [facility] methIMAzole 2019-0 Yes 10mg Take 10 mg Univers 10 mg 4-24 by mouth ity of tablet 00:00: daily. [place] [facility] methIMAzole 2019-0 Yes 10mg Take 10 mg [facility] 10 mg 4-24 by mouth ity of tablet 00:00: daily. [place] [facility] methIMAzole 2019-0 Yes 10mg Take 10 mg [facility] 10 mg 4-24 by mouth ity of tablet 00:00: daily. [place] [facility] methIMAzole 2019-0 Yes 10mg Take 10 mg [facility] 10 mg 4-24 by mouth ity of tablet 00:00: daily. [place] [facility] methIMAzole 2019-0 Yes 10mg Take 10 mg [facility] 10 mg 4-24 by mouth ity of tablet 00:00: daily. [place] [facility] methIMAzole 2019-0 Yes 10mg Take 10 mg [facility] 10 mg 4-24 by mouth ity of tablet 00:00: daily. [place] [facility] methIMAzole 2019-0 Yes 10mg Take 10 mg Univers 10 mg 4-24 by mouth ity of tablet 00:00: daily. [place] [facility] methIMAzole 2019-0 Yes 10mg Take 10 mg [facility] 10 mg 4-24 by mouth ity of tablet 00:00: daily. [place] [facility] methIMAzole 2019-0 Yes 10mg Take 10 mg [facility] 10 mg 4-24 by mouth ity of tablet 00:00: daily. [place] [facility] methIMAzole 2019-0 Yes 10mg Take 10 mg [facility] 10 mg 4-24 by mouth ity of tablet 00:00: daily. [place] [facility] methIMAzole 2019-0 Yes 10mg Take 10 mg [facility] 10 mg 4-24 by mouth ity of tablet 00:00: daily. [place] [facility] methIMAzole 2019-0 Yes 10mg Take 10 mg [facility] 10 mg 4-24 by mouth ity of tablet 00:00: daily. [facility] methIMAzole 2019-0 Yes 10mg Take 10 mg Univers 10 mg 4-24 by mouth ity of tablet 00:00: daily. [place] [facility] methIMAzole 2019-0 Yes 10mg Take 10 mg Univers 10 mg 4-24 by mouth ity of tablet 00:00: daily. [place] [facility] methIMAzole 2018-0 Yes 10mg Take 10 mg [facility] 10 mg 4-24 by mouth ity of tablet 00:00: daily. [place] [facility] methIMAzole 2018-0 Yes 10mg Take 10 mg [facility] 10 mg 4-24 by mouth ity of tablet 00:00: daily. [place] [facility] methIMAzole 2018-0 Yes 10mg Take 10 mg [facility] 10 mg 4-24 by mouth ity of tablet 00:00: daily. [place] [facility] methIMAzole 2018-0 Yes 10mg Take 10 mg [facility] 10 mg 4-24 by mouth ity of tablet 00:00: daily. [place] [facility] methIMAzole 2018-0 Yes 10mg Take 10 mg [facility] 10 mg 4-24 by mouth ity of tablet 00:00: daily. [place] [facility] methIMAzole 2018-0 Yes 10mg Take 10 mg [facility] 10 mg 4-24 by mouth ity of tablet 00:00: daily. [place] [facility] methIMAzole 2018-0 Yes 10mg Take 10 mg [facility] 10 mg 4-24 by mouth ity of tablet 00:00: daily. [place] [facility] methIMAzole 2018-0 Yes 10mg Take 10 mg [facility] 10 mg 4-24 by mouth ity of tablet 00:00: daily. [place] [facility] methIMAzole 2019-0 Yes 10mg Take 10 mg [facility] 10 mg 4-24 by mouth ity of tablet 00:00: daily. [place] [facility] methIMAzole 2019-0 Yes 10mg Take 10 mg [facility] 10 mg 4-24 by mouth ity of tablet 00:00: daily. [place] [facility] methIMAzole 2018-0 Yes 10mg Take 10 mg [facility] 10 mg 4-24 by mouth ity of tablet 00:00: daily. [place] [facility] methIMAzole 2018-0 Yes 10mg Take 10 mg [facility] 10 mg 4-24 by mouth ity of tablet 00:00: daily. [facility] methIMAzole 2019-0 Yes 10mg Take 10 mg [facility] 10 mg 4-24 by mouth ity of tablet 00:00: daily. [place] [facility] methIMAzole 2019-0 Yes 10mg Take 10 mg [facility] 10 mg 4-24 by mouth ity of tablet 00:00: daily. [place] [facility] methIMAzole 2018-0 Yes 10mg Take 10 mg [facility] 10 mg 4-24 by mouth ity of tablet 00:00: daily. [place] [facility] methIMAzole 2018-0 Yes 10mg Take 10 mg [facility] 10 mg 4-24 by mouth ity of tablet 00:00: daily. [place] [facility] methIMAzole 2019-0 Yes 10mg Take 10 mg [facility] 10 mg 4-24 by mouth ity of tablet 00:00: daily. [place] [facility] methIMAzole 2018-0 Yes 10mg Take 10 mg [facility] 10 mg 4-24 by mouth ity of tablet 00:00: daily. [place] [facility] methIMAzole 2018-0 Yes 10mg Take 10 mg [facility] 10 mg 4-24 by mouth ity of tablet 00:00: daily. [place] [facility] methIMAzole 2019-0 Yes 10mg Take 10 mg [facility] 10 mg 4-24 by mouth ity of tablet 00:00: daily. [place] [facility] methIMAzole 2019-0 Yes 10mg Take 10 mg [facility] 10 mg 4-24 by mouth ity of tablet 00:00: daily. [place] [facility] methIMAzole 2018-0 Yes 10mg Take 10 mg [facility] 10 mg 4-24 by mouth ity of tablet 00:00: daily. [place] [facility] methIMAzole 2019-0 Yes 10mg Take 10 mg [facility] 10 mg 4-24 by mouth ity of tablet 00:00: daily. [place] [facility] methIMAzole 2019-0 Yes 10mg Take 10 mg [facility] 10 mg 4-24 by mouth ity of tablet 00:00: daily. [place] [facility] methIMAzole 2019-0 Yes 10mg Take 10 mg [facility] 10 mg 4-24 by mouth ity of tablet 00:00: daily. [place] [facility] methIMAzole 2018-0 Yes 10mg Take 10 mg [facility] 10 mg 4-24 by mouth ity of tablet 00:00: daily. [facility] methIMAzole 2019-0 Yes 10mg Take 10 mg Univers 10 mg 4-24 by mouth ity of tablet 00:00: daily. [facility] methIMAzole 2019-0 Yes 10mg Take 10 mg Univers 10 mg 4-24 by mouth ity of tablet 00:00: daily. [facility] methIMAzole 2019-0 Yes 10mg Take 10 mg Univers 10 mg 4-24 by mouth ity of tablet 00:00: daily. [facility] methIMAzole 2019-0 Yes 10mg Take 10 mg [facility] 10 mg 4-24 by mouth ity of tablet 00:00: daily. [place] [facility] methIMAzole 2019-0 Yes 10mg Take 10 mg [facility] 10 mg 4-24 by mouth ity of tablet 00:00: daily. [place] [facility] methIMAzole 2018-0 Yes 10mg Take 10 mg Univers 10 mg 4-24 by mouth ity of tablet 00:00: daily. [place] [facility] methIMAzole 2019-0 Yes 10mg Take 10 mg [facility] 10 mg 4-24 by mouth ity of tablet 00:00: daily. [place] [facility] methIMAzole 2019-0 Yes 10mg Take 10 mg [facility] 10 mg 4-24 by mouth ity of tablet 00:00: daily. [place] [facility] methIMAzole 2019-0 Yes 10mg Take 10 mg [facility] 10 mg 4-24 by mouth ity of tablet 00:00: daily. [place] [facility] methIMAzole 2019-0 Yes 10mg Take 10 mg [facility] 10 mg 4-24 by mouth ity of tablet 00:00: daily. [place] [facility] methIMAzole 2019-0 Yes 10mg Take 10 mg [facility] 10 mg 4-24 by mouth ity of tablet 00:00: daily. [place] [facility] methIMAzole 2019-0 Yes 10mg Take 10 mg [facility] 10 mg 4-24 by mouth ity of tablet 00:00: daily. [place] [facility] methIMAzole 2019-0 Yes 10mg Take 10 mg [facility] 10 mg 4-24 by mouth ity of tablet 00:00: daily. [place] [facility] methIMAzole 2019-0 Yes 10mg Take 10 mg [facility] 10 mg 4-24 by mouth ity of tablet 00:00: daily. Medical Branch methIMAzole Yes 10mg Take 10 mg [facility] 10 mg 4-24 by mouth ity of tablet 00:00: daily. Medical Branch methIMAzole Yes 10mg Take 10 mg [facility] 10 mg 4-24 by mouth ity of tablet 00:00: daily. Medical Branch methIMAzole Yes 10mg Take 10 mg [facility] 10 mg 4-24 by mouth ity of tablet 00:00: daily. Medical Branch methIMAzole Yes 10mg Take 10 mg [facility] 10 mg 4-24 by mouth ity of tablet 00:00: daily. Medical Branch doxazosin 2 Yes TAKE 0.5 Un [facility] mg tablet 4-22 TABLET BY ity o f 00:00: 2 TIMES DAY Medical Branch doxazosin 2 Yes TAKE 0.5 Un [facility] mg tablet 4-22 TABLET BY ity o f 00:00: 2 TIMES DAY Medical Branch doxazosin 2 Yes TAKE 0.5 Un [facility] mg tablet 4-22 TABLET BY ity o f 00:00: 2 TIMES DAY Medical Branch doxazosin 2 Yes TAKE 0.5 Un [facility] mg tablet 4-22 TABLET BY ity o f 00:00: 2 TIMES DAY Medical Branch doxazosin 2 Yes TAKE 0.5 Un [facility] mg tablet 4-22 TABLET BY ity o f 00:00: 2 TIMES DAY Medical Branch doxazosin 2 Yes TAKE 0.5 Un [facility] mg tablet 4-22 TABLET BY ity o f 00:00: 2 TIMES DAY Medical Branch doxazosin 2 Yes TAKE 0.5 Un [facility] mg tablet 4-22 TABLET BY ity o f 00:00: 2 TIMES DAY Medical Branch doxazosin 2 Yes TAKE 0.5 Un [facility] mg tablet 4-22 TABLET BY ity o f 00:00: 2 TIMES DAY Medical Branch doxazosin 2 Yes TAKE 0.5 Un [facility] mg tablet 4-22 TABLET BY ity o f 00:00: 2 TIMES [place] DAY Medical Branch doxazosin 2 Yes TAKE 0.5 Un [facility] mg tablet 4-22 TABLET BY ity o f 00:00: 2 TIMES [place] 00 EVERY DAY Medical Branch doxazosin 2 2019-0 Yes TAKE 0.5 Un [facility] mg tablet 4-22 TABLET BY ity o f 00:00: 2 TIMES [place] 00 EVERY DAY Medical Branch doxazosin 2 2019-0 Yes TAKE 0.5 Un [facility] mg tablet 4-22 TABLET BY ity o f 00:00: 2 TIMES [place] 00 EVERY DAY Medical Branch doxazosin 2 2019-0 Yes TAKE 0.5 Un [facility] mg tablet 4-22 TABLET BY ity o f 00:00: 2 TIMES [place] 00 EVERY DAY Medical Branch doxazosin 2 2019-0 Yes TAKE 0.5 Un [facility] mg tablet 4-22 TABLET BY ity o f 00:00: 2 TIMES [place] 00 EVERY DAY Medical Branch doxazosin 2 2019-0 2020- No TAKE 0.5 U nivers mg tablet 4-22 03-06 TABLET BY ity of 00:00: 00:00 2 TIMES [place] 00 :00 EVERY DAY Medical Branch hydrALAZINE 2019-0 Yes TAKE 1 Univ ers 100 mg 4-16 TABLET BY ity of tablet 00:00: MOUTH 00 THREE Medical TIMES A Branch DAY WITH FOOD hydrALAZINE 2019-0 Yes TAKE 1 Univ ers 100 mg 4-16 TABLET BY ity of tablet 00:00: MOUTH 00 THREE Medical TIMES A Branch DAY WITH FOOD hydrALAZINE 2019-0 Yes TAKE 1 Univ ers 100 mg 4-16 TABLET BY ity of tablet 00:00: MOUTH 00 THREE Medical TIMES A Branch DAY WITH FOOD hydrALAZINE 2019-0 Yes TAKE 1 Univ ers 100 mg 4-16 TABLET BY ity of tablet 00:00: MOUTH 00 THREE Medical TIMES A Branch DAY WITH FOOD hydrALAZINE 2019-0 Yes TAKE 1 Univ ers 100 mg 4-16 TABLET BY ity of tablet 00:00: MOUTH 00 THREE Medical TIMES A Branch DAY WITH FOOD hydrALAZINE 2019-0 Yes TAKE 1 Univ ers 100 mg 4-16 TABLET BY ity of tablet 00:00: MOUTH [place] 00 THREE Medical TIMES A Branch DAY WITH FOOD hydrALAZINE 2019-0 Yes TAKE 1 Univ ers 100 mg 4-16 TABLET BY ity of tablet 00:00: MOUTH 00 THREE Medical TIMES A Branch DAY WITH FOOD hydrALAZINE 2019-0 Yes TAKE 1 Univ ers 100 mg 4-16 TABLET BY ity of tablet 00:00: MOUTH 00 THREE Medical TIMES A Branch DAY WITH FOOD hydrALAZINE 2019-0 Yes TAKE 1 Univ ers 100 mg 4-16 TABLET BY ity of tablet 00:00: MOUTH THREE Medical TIMES A Branch DAY WITH FOOD hydrALAZINE 2019-0 Yes TAKE 1 Univ ers 100 mg 4-16 TABLET BY ity of tablet 00:00: [facility] THREE Medical TIMES A Branch DAY WITH FOOD hydrALAZINE 2019-0 Yes TAKE 1 Univ ers 100 mg 4-16 TABLET BY ity of tablet 00:00: MOUTH THREE Medical TIMES A Branch DAY WITH FOOD hydrALAZINE 2019-0 Yes TAKE 1 Univ ers 100 mg 4-16 TABLET BY ity of tablet 00:00: [facility] THREE Medical TIMES A Branch DAY WITH FOOD hydrALAZINE 2019-0 Yes TAKE 1 Univ ers 100 mg 4-16 TABLET BY ity of tablet 00:00: [facility] THREE Medical TIMES A Branch DAY WITH FOOD hydrALAZINE 2019-0 Yes TAKE 1 Univ ers 100 mg 4-16 TABLET BY ity of tablet 00:00: [facility] THREE Medical TIMES A Branch DAY WITH FOOD hydrALAZINE 2019-0 2020- No TAKE 1 Uni vers 100 mg 4-16 03-06 TABLET BY ity of tablet 00:00: 00:00 MOUTH [place] 00 :00 THREE Medical TIMES A Branch DAY WITH FOOD spironolact 2019-0 Yes 25mg Take 25 mg Univers one 25 mg 3-22 by mouth ity of tablet 00:00: daily. [place] [facility] spironolact 2019-0 Yes 25mg Take 25 mg Univers one 25 mg 3-22 by mouth ity of tablet 00:00: daily. [place] [facility] spironolact 2019-0 Yes 25mg Take 25 mg Univers one 25 mg 3-22 by mouth ity of tablet 00:00: daily. [facility] spironolact 2019-0 Yes 25mg Take 25 mg Univers one 25 mg 3-22 by mouth ity of tablet 00:00: daily. [facility] spironolact 2019-0 Yes 25mg Take 25 mg Univers one 25 mg 3-22 by mouth ity of tablet 00:00: daily. [place] [facility] spironolact 2019-0 Yes 25mg Take 25 mg Univers one 25 mg 3-22 by mouth ity of tablet 00:00: daily. [place] [facility] spironolact 2019-0 Yes 25mg Take 25 mg Univers one 25 mg 3-22 by mouth ity of tablet 00:00: daily. [place] [facility] spironolact 2019-0 Yes 25mg Take 25 mg Univers one 25 mg 3-22 by mouth ity of tablet 00:00: daily. [place] [facility] spironolact 2019-0 Yes 25mg Take 25 mg Univers one 25 mg 3-22 by mouth ity of tablet 00:00: daily. [place] [facility] spironolact 2019-0 Yes 25mg Take 25 mg Univers one 25 mg 3-22 by mouth ity of tablet 00:00: daily. [place] [facility] spironolact 2019-0 Yes 25mg Take 25 mg [facility] one 25 mg 3-22 by mouth ity of tablet 00:00: daily. [place] [facility] spironolact 2019-0 Yes 25mg Take 25 mg [facility] one 25 mg 3-22 by mouth ity of tablet 00:00: daily. [place] [facility] spironolact 2019-0 Yes 25mg Take 25 mg Univers one 25 mg 3-22 by mouth ity of tablet 00:00: daily. [place] [facility] spironolact 2019-0 Yes 25mg Take 25 mg Univers one 25 mg 3-22 by mouth ity of tablet 00:00: daily. [place] [facility] spironolact 2019-0 2020- No 25mg Take 25 mg Univers one 25 mg 3-22 03-06 by mouth ity o f tablet 00:00: 00:00 daily. [place] 00 :00 [facility] Immunizations Ordered Filled Immunization Date Status Comments [facility] e Immunization Name Name SARS-COV-2 COVID-19 2020-05-12 Completed Unive rsity of MODERNA VACCINE 00:00:00 [facility] SARS-COV-2 COVID-19 2020-05-12 Completed Unive rsity of MODERNA VACCINE 00:00:00 [facility] SARS-COV-2 COVID-19 2020-04-14 Completed Unive rsity of MODERNA VACCINE 00:00:00 [facility] SARS-COV-2 COVID-19 2020-04-14 Completed Unive rsity of MODERNA VACCINE 00:00:00 [place] [facility] SARS-COV-2 COVID-19 2020-04-14 Completed Unive rsity of MODERNA VACCINE 00:00:00 [place] [facility] ical Branch SARS-COV-2 COVID-19 2020-04-14 Completed Unive rsity of MODERNA VACCINE 00:00:00 [place] [facility] ical Branch SARS-COV-2 COVID-19 2020-04-14 Completed Unive rsity of MODERNA VACCINE 00:00:00 [facility] ical Branch SARS-COV-2 COVID-19 2020-04-14 Completed Unive rsity of MODERNA VACCINE 00:00:00 [facility] ical Branch SARS-COV-2 COVID-19 2020-04-14 Completed Unive rsity of MODERNA VACCINE 00:00:00 [place] [facility] ical Branch SARS-COV-2 COVID-19 2020-04-14 Completed Unive rsity of MODERNA VACCINE 00:00:00 [facility] ical Branch SARS-COV-2 COVID-19 2020-04-14 Completed Unive rsity of MODERNA VACCINE 00:00:00 [facility] ical Branch SARS-COV-2 COVID-19 2020-04-14 Completed Unive rsity of MODERNA VACCINE 00:00:00 [facility] ical Branch SARS-COV-2 COVID-19 2020-04-14 Completed Unive rsity of MODERNA VACCINE 00:00:00 [facility] ical Branch SARS-COV-2 COVID-19 2020-04-14 Completed Unive rsity of MODERNA VACCINE 00:00:00 [facility] ical Branch SARS-COV-2 COVID-19 2020-04-14 Completed Unive rsity of MODERNA VACCINE 00:00:00 [facility] ical Branch SARS-COV-2 COVID-19 2020-04-14 Completed Unive rsity of MODERNA VACCINE 00:00:00 [facility] ical Branch SARS-COV-2 COVID-19 2020-04-14 Completed Unive rsity of MODERNA VACCINE 00:00:00 [facility] ical Branch SARS-COV-2 COVID-19 2020-04-14 Completed Unive rsity of MODERNA VACCINE 00:00:00 [facility] [place] Vital Signs Vital Name Observation Time Observation Value Comments Source Body height 2019-04-20 15:34:00 165.1 cm [facility] Body weight 2019-04-20 15:34:00 104.327 kg Universi ty of [facility] BMI 2019-04-20 15:34:00 38.27 kg/m2 Universi ty [facility] Systolic blood 2019-03-23 16:31:00 173 mm[Hg] Univer sity of pressure [facility] Diastolic blood 2019-03-23 16:31:00 90 mm[Hg] Unive rsity of pressure [facility] Heart rate 2019-03-23 16:31:00 64 /min Universi ty [facility] Body temperature 2019-03-23 16:31:00 36.72 Bailey [facility] ersity [facility] Respiratory rate 2019-03-23 16:31:00 18 /min [facility] height 2019-03-23 16:31:00 165.1 cm Universi ty [facility] Body weight 2019-03-23 16:31:00 97.24 kg Universi ty [facility] BMI 2019-03-23 16:31:00 35.67 kg/m2 Universi ty [facility] Procedures Procedure Date / Time Performing Clinician Source Performed MEDICATION CORRESPONDENCE 2020-01-21 06:01:00 Doctor Unassigned, [facility] Encounters Start End Encounter Admission Attending Care Care Encounter Source Date/Time Date/Time Type Type Clinicians Facility Department ID 2020-09-07 2020-09-07 [facility] 1.2.840.114 [id number] Univers 00:00:00 00:00:00 Efraín Foster 350.1.13.10 it[place] [phone] Mi dic[address] 2020-06-18 2020-06-18 [facility] 1.2.840.114 [id number] Univers 00:00:00 00:00:00 Efraín Foster 350.1.13.10 [place] [phone] Mi dic[address] 2020-05-12 2020-05-12 Outpatient R DANIELLA [facility] [id number] Univers 16:00:00 16:00:00 ALLA ity of [facility] 2020-04-18 2020-04-18 [facility] 1.2.840.114 [id number] Univers 00:00:00 00:00:00 Efraín De [place] 350.1.13.10 it[place] [phone] [address] 2020-04-18 2020-04-18 [facility] 1.2.840.114 [id number] Univers 00:00:00 00:00:00 Efraín Radford Kristin 350.1.13.10 it[place] [phone] [address] 2020-04-18 2020-04-18 [facility] 1.2.840.114 [id number] Univers 00:00:00 00:00:00 Efraín Radford Kristin 350.1.13.10 it[place] [phone] [address] 2020-04-17 2020-04-17 Lynn Emma, [facility] 1.2.840.114 [id number] Univers 00:00:00 00:00:00 Efraín Radford Kristin 350.1.13.10 it[place] [phone] [address] 2020-04-16 2020-04-16 [facility] 1.2.840.114 [id number] Univers 00:00:00 00:00:00 Efraín Tiffany Kristin 350.1.13.10 it[place] [phone] [address] 2020-04-16 2020-04-16 [facility] 1.2.840.114 [id number] Univers 00:00:00 00:00:00 Efraín Foster 350.1.13.10 it[place] [phone] [facility] 059 [facility] 2020-04-16 2020-04-16 Refill Emma, [facility] 1.2.840.114 [id number] Univers 00:00:00 00:00:00 Efraín Foster 350.1.13.10 it[place] [phone] [address] 2020-04-14 2020-04-14 Outpatient R DANIELLA [facility] [id number] Univers 15:50:00 15:50:00 ALLA [id number] [facility] 2020-04-14 2020-04-14 Outpatient R DANIELLA [facility] [id number] Univers 15:50:00 15:50:00 ALLA [facility] 2020-03-19 2020-03-19 Telephone [facility] 12.840.114 [id number] Univers 00:00:00 00:00:00 Efraín De [place] 350.1.13.10 it[place] [phone] [address] 2020-02-28 2020-02-28 Telephone [facility] 1.2.840.114 [id number] Univers 00:00:00 00:00:00 Efraín De [place]oston 350.1.13.10 it[place] [phone] [address] 2020-02-19 2020-02-19 Refill Emma, [facility] 1.2.840.114 [id number] Univers 00:00:00 00:00:00 Efraín De [place] 350.1.13.10 it[place] [phone] [address] 2020-01-21 2020-01-21 Refill Emma, [facility] 1.2.840.114 [id number] Univers 00:00:00 00:00:00 Efraín Foster 350.1.13.10 it[place] [phone] [address] 2020-01-21 2020-01-21 Orders Doctor HOANG 1.2.840.114 [id number] Univers 00:00:00 00:00:00 Only Unassigned, JESUSITA 350.1.13.10 ity of [place] [facility] 4.2.7.2.686 [place] as [phone] [address] 2019-12-25 2019-12-25 [facility] Emma, [facility] 1.2.840.114 [id number] Univers 00:00:00 00:00:00 Efraín Foster 350.1.13.10 it[place] [phone] [address] 2019-12-24 2019-12-24 [facility] 1.2.840.114 [id number] Univers 00:00:00 00:00:00 Efraín Foster 350.1.13.10 it[place] [phone] [address] 2019 2019 [facility] 1.2.840.114 [id number] Univers 00:00:00 00:00:00 Efraín Foster 350.1.13.10 it[place] [phone] [address] 2019-11-23 2019-11-23 [facility] Emma, [facility] 1.2.840.114 [id number] Univers 00:00:00 00:00:00 Efraín Foster 350.1.13.10 it[place] [phone] [address] 2019-11-23 2019-11-23 Balwinder Carter, [facility] 1.2.840.114 [id number] Univers 00:00:00 00:00:00 Efraín Foster 350.1.13.10 it[place] [phone] Mi dicca nal [address] [place] [address] 2019-10-29 2019-10-29 [facility] 1.2.840.114 [id number] Univers 00:00:00 00:00:00 Efraín Foster 350.1.13.10 it[place] [phone] [address] 2019-10-26 2019-10-26 [facility] 1.2.840.114 [id number] Univers 00:00:00 00:00:00 Efraín Foster 350.1.13.10 [place] [phone] [address] 2019-09-28 2019-09-28 [facility] 1.2.840.114 [id number] Univers 00:00:00 00:00:00 Efraín Foster 350.1.13.10 [place] [phone] [address] 2019-09-28 2019-09-28 Lynn [facility] 1.2.840.114 [id number] Univers 00:00:00 00:00:00 Efraín Foster 350.1.13.10 it[place] [phone] [address] 2019-09-25 2019-09-25 [facility] 1.2.840.114 [id number] Univers 00:00:00 00:00:00 Efraín Foster 350.1.13.10 it[place] [phone] [address] 2019-09-10 2019-09-10 Outpatient R [facility] [id number] Univers 13:00:00 13:00:00 [id number] ity [facility] 2019-09-10 2019-09-10 Outpatient R ADRIEN, [facility] [id number] Univers 13:00:00 13:00:00 KRISTEL ity [facility] 2019-08-22 2019-08-[address] [facility] 1.2.840.114 [id number] Univers 00:00:00 00:00:00 Efraín Foster 350.1.13.10 it[place] [phone] [address] 2019-07-23 2019-07-[address] [facility] 1.2.840.114 [id number] Univers 00:00:00 00:00:00 Efraín Foster 350.1.13.10 it[place] [phone] [address] 2019-07-20 2019-07-[address] [facility] 1.2.840.114 [id number] Univers 00:00:00 00:00:00 Efraín De [place] 350.1.13.10 ity [place] [phone] [address] 2019-07-20 2019-07-[address] [facility] 1.2.840.114 [id number] Univers 00:00:00 00:00:00 Efraín De [place] 350.1.13.10 it[place] [phone] [address] 2019-07-20 2019-07-[address] [facility] 1.2.840.114 [id number] Univers 00:00:00 00:00:00 Efraín De [place] 350.1.13.10 it[place] [phone] Mi dical nal 092 [facility] 2019-07-19 2019-07-19 Telephone [facility] 1.2.840.114 [id number] Univers 00:00:00 00:00:00 Efraín Tiffany Foster 350.1.13.10 it[place] [phone] [facility] [address] [place] [address] 2019-07-18 2019-07-18 [facility] 1.2.840.114 [id number] Univers 00:00:00 00:00:00 Efraín Radford Kristin 350.1.13.10 it[place] [phone] [facility] 092 [facility] 2019-07-06 2019-07-06 Telephone [facility] 1.2.840.114 [id number] Univers 00:00:00 00:00:00 Efraín Tiffany Foster 350.1.13.10 it[place] [phone] [address] 2019-07-05 2019-07-05 Refill [facility] 1.2.840.114 [id number] Univers 00:00:00 00:00:00 [facility] 350.1.13.10 ity of [place] 4.2.7.2.686 [place] Professio [phone] [facility] 044 [facility] One 2019-07-03 2019-07-03 Telemedici [facility] 1.2.840.114 [id number] Univers 08:05:45 10:48:54 ne Visit Efraín Foster 350.1.13.10 it[place] [phone] [facility] 092 [facility] 2019-07-03 2019-07-03 Outpatient EFRAÍN CARTER [facility] [id number] Univers 09:20:00 09:20:00 EFRAÍN CARTER [id number] ity [facility] 2019-07-03 2019-07-03 Outpatient R EFRAÍN CARTER [facility] [id number] Univers 09:20:00 09:20:00 EFRAÍN CARTER ity [facility] 2019-06-19 2019-06-19 Telephone Emma [facility] 1.2.840.114 [id number] Univers 00:00:00 00:00:00 Efraín Foster 350.1.13.10 it[place] [phone] [address] 2019-06-18 2019-06-18 Jonathan Carter [facility] 1.2.840.114 [id number] Univers 00:00:00 00:00:00 Efraín Foster 350.1.13.10 it[place] [phone] [address] 2019-05-28 2019-05-28 [facility] 1.2.840.114 [id number] Univers 00:00:00 00:00:00 Efraín Foster 350.1.13.10 [place] [phone] [address] 2019-05-16 2019-05-16 [facility] 1.2.840.114 [id number] Univers 00:00:00 00:00:00 Efraín Foster 350.1.13.10 it[place] [phone] [facility] [address] [place] [address] 2019-05-13 2019-05-13 Refalfonzo Saunders [facility] 1.2.840.114 [id number] Univers 00:00:00 00:00:00 [facility] 350.1.13.10 ity of [place] 4.2.7.2.686 [place] [phone] [address] One 2019-05-13 2019-05-13 Refalfonzo [facility] 1.2.840.114 [id number] Univers 00:00:00 00:00:00 Efraín Gene [place] 350.1.13.10 ity [place] [phone] Mi michele garza 092 [facility] 2019-05-09 2019-05-09 Outpatient R [facility] [id number] Univers 14:15:00 14:15:00 [id number] ity [facility] 2019-05-09 2019-05-09 [facility] [id number] Univers 14:15:00 14:15:00 TAMARA ity [facility] 2019-05-09 2019-05-09 Telephone [facility] 1.2.840.114 [id number] Univers 00:00:00 00:00:00 [facility] 350.1.13.10 ity of [place] 4.2.7.2.686 [place] Professio [phone] Mi shirleytimothy garza 044 [facility] 2019-05-09 2019-05-09 Telephone Gifty [facility] 1.2.840.114 [id number] Univers 00:00:00 00:00:00 Tamara D SPECIALTY 350.1.13.10 [place] [phone] Mi shirleytimothy PASTORY 370 [facility] 2019-05-08 2019-05-08 Telephone [facility] 1.2.840.114 [id number] Univers 00:00:00 00:00:00 [facility] 350.1.13.10 ity of [place] 4.2.7.2.686 [place] Profess[place] [phone] Mi shirleytimothy greg 044 [facility] 2019-04-27 2019-04-27 [facility] [id number] Univers 10:30:00 10:30:00 WONDIFUL [id number] ity o f [facility] 2019-04-20 2019-04-20 Office Kiran [facility] 1.2.840.114 [id number] Univers 09:23:30 19:21:09 Visit [facility] 350.1.13.10 ity of [place] 4.2.7.2.686 [place] Profess[place] [phone] Mi dical nal 044 [place] [facility] 2019-04-20 2019-04-20 Sherri SAUNDERS [facility] [id number] Univers 09:00:00 09:00:00 WONDIFUL ity o f [facility] 2019-04-19 2019-04-19 [facility] 1.2.840.114 [id number] Univers 00:00:00 00:00:00 Efraín Foster 350.1.13.10 it[place] [phone] Mi dical nal 092 [facility] 2019-04-15 2019-04-15 Refill [facility] 1.2.840.114 [id number] [facility] 00:00:00 00:00:00 Efraín Foster 350.1.13.10 it[place] [phone] Mi dical nal 092 [facility] 2019-03-23 2019-03-23 [facility] 1.2.840.114 [id number] [facility] 09:58:29 11:26:48 Visit Efraín Foster 350.1.13.10 it[place] [phone] Mi dicca nal [address] [place] [address] 2019-03-22 2019-03-[address] [facility] 1.2.840.114 [id number] Univers 00:00:00 00:00:00 Efraín Foster 350.1.13.10 it[place] [phone] Mi dicca nal [address] [place] [address] 2019-03-22 2019-03-22 [facility] 1.2.840.114 [id number] [facility] 00:00:00 00:00:00 Efraín Foster 350.1.13.10 it[place] [phone] Mi dical nal [address] [place] [address] 2019-03-16 2019-03-16 [facility] 1.2.840.114 [id number] Univers 00:00:00 00:00:00 Efraín Foster 350.1.13.10 it[place] [phone] Mi dic[address] 2019-03-07 2019-03-[address] [facility] 1.2.840.114 [id number] Univers 00:00:00 00:00:00 Efraín Foster 350.1.13.10 ity [place] [phone] [address] 2018-09-08 2018-09-08 [facility] 1.2.840.114 [id number] Univers 00:00:00 00:00:00 Efraín Foster 350.1.13.10 it[place] [phone] [address] Results This patient has no known results.
[2021-03-07] MEDS ORDERED: DIAZEPAM 5 MG TABLET ONE (17:16)
--- NOTE | 2021-03-07 17:24 | RAD REPORT ---
EXAM DESCRIPTION: CT - Head Brain Wo Cont - 03/07/2021 5:17 pm CLINICAL HISTORY: Slurred speech COMPARISON: None TECHNIQUE: Computed axial tomography of the head was obtained. IV contrast was not requested. All CT scans are performed using dose optimization technique as appropriate and may include automated exposure control or mA/KV adjustment according to patient size. FINDINGS: An intracranial bleed is not seen . Empty sella turcica The ventricles are normal in caliber. No extra-axial fluid collection is noted. 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 Mild low-density areas within periventricular, deep and subcortical white matter likely represent is chemic changes secondary to small vessel disease. Fluid within the sinuses/ mastoids is not seen. IMPRESSION: No acute intracranial abnormality is seen. If patient's symptoms persist MRI of the bra in would be recommended.
[2021-03-07 18:00] LABS: Absolute Lymphocytes (CBC) 1.3 K/uL (0.7-4.9); Hematocrit 43.1 % (36.0-45.0); Lymphocytes % 26.4 % (15.3-44.8); MPV 8.2 fL (7.6-11.3); RBC Red Blood Cell Count 5.21 M/uL (3.86-4.86)
[2021-03-07] MEDS ORDERED: NA CHLORIDE 0.9% 500 ML ONE (18:21)
[2021-03-07] MEDS ORDERED: POTASSIUM CL SA 10 MEQ TAB PO ONE (18:21)
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
[2021-03-07] MEDS ORDERED: cloNIDine HCL 0.1 MG TAB ONE (18:35)
[2021-03-07 21:03] VITALS: TEMP 98.8
[2021-03-07 21:06] VITALS: BP 178/120; O2SAT 99
== END 2021-03-07 19:19 | disposition home or self-care (01) ==
LOC: ER 16:48
DX: F43.0 Acute stress reaction (principal); R06.4 Hyperventilation; I10 Essential (primary) hypertension; Z88.8 Allergy status to other drugs, medicaments and biological substances
CPT/HCPCS: 93005; 85025; 80048; 36415; 70450; 99285; J7040

== ENCOUNTER 2021-05-16 18:28 | Emergency (ER) | payer OTHER ==
--- OUTSIDE RECORDS SUMMARY | 2021-05-16 18:40 | XMS REPORT | Continuity of Care Document ---
:1950 Author Organization [facility] t Address [facility] Cale E[address]ada [address] [place] [address] Care Team Providers Name Role Phone Tiffany [...] Active 2019-0 Univers 3-06 ity of 00:00: [address] Reactive Reactive Disease Active 0 Unive rs depression depression 3-06 it y of 00:00: [address] No known No known Disease Unive rs active active ity of problems problems [facility] Allergies, Adverse Reactions, Alerts Allergy Allergy Status Severity Reaction(s) Onset Inactive Treating Comm ents Source Name Type Date Date Clinician NO KNOWN Drug Active Univers ALLERGIE Class ity of S [facility] Social History Social Habit Start Date Stop Date Quantity Comments Source Exposure to Not sure [facility] SARS-CoV-[address] [facility] (event) Branch Alcohol intake 2019-04-20 2019-04-20 Current University of 00:00:00 00:00:00 non-drinker of [facility] alcohol [place] (finding) Tobacco use and 2019-04-20 2019-04-20 Never used Universit y of exposure 00:00:00 00:00:00 [facility] Sex [birth year] Universit y of 00:00:00 00:00:00 [facility] Smoking Status Start Date Stop Date Source Never smoker [facility] Medications Ordered Filled Start Stop Current Ordering Indication Dosage Frequency Signature Comments Components Source Medication Medication Date Date Medication? Clinician (SIG) Name Name AMITRIPTYLI 0 Yes TAKE 1 [facility] [place] 25 mg 5-05 TABLET BY ity of tablet 00:00: MOUTH [place] [address] EVERYDAY Medical AT BEDTIME Branch AMITRIPTYLI 2020-0 Yes TAKE 1 [facility] [place] 25 mg 5-05 TABLET BY ity of tablet 00:00: MOUTH [place] EVERYDAY Medical AT BEDTIME Branch butorphanol 2020-0 Yes 2745 INHALE ONE Univers 10 mg/mL 3-05 SPRAY IN ity of nasal spray 00:00: ONE [place] NOSTRIL Medical EVERY 8 Branch HOURS NEEDED FOR HEADACHE Indication s: chronic pain, headache butorphanol 2021-0 Yes 2745 INHALE ONE Univers 10 mg/mL 3-05 SPRAY IN ity of nasal spray 00:00: ONE [place] NOSTRIL Medical EVERY 8 Branch HOURS NEEDED FOR HEADACHE Indication s: chronic pain, headache butorphanol 2021-0 Yes 2745 INHALE ONE Univers 10 mg/mL 3-05 SPRAY IN ity of nasal spray 00:00: ONE [place] NOSTRIL Medical EVERY 8 Branch HOURS NEEDED FOR HEADACHE Indication s: chronic pain, headache butorphanol 2021-0 Yes 2745 USE 1 Unive rs 10 mg/mL 2-05 SPRAY IN ity of nasal spray 00:00: ONE [place] [address] NOSTRIL Medical EVERY 8 Branch HOURS NEEDED FOR HEADACHE Indication s: acute pain, chronic pain, Headache butorphanol 2021-0 Yes 2745 USE 1 Unive rs 10 mg/mL 2-05 SPRAY IN ity of nasal spray 00:00: ONE [place] [address] NOSTRIL Medical EVERY 8 Branch HOURS NEEDED FOR HEADACHE Indication s: acute pain, chronic pain, Headache butorphanol 2021-0 Yes 2745 USE 1 Unive rs 10 mg/mL 2-05 SPRAY IN ity of nasal spray 00:00: ONE [place] [address] NOSTRIL Medical EVERY 8 Branch HOURS NEEDED FOR HEADACHE Indication s: acute pain, chronic pain, Headache butorphanol 2021-0 Yes 2745 USE 1 Unive rs 10 mg/mL 2-05 SPRAY IN ity of nasal spray 00:00: ONE [place] NOSTRIL Medical EVERY 8 Branch HOURS NEEDED FOR HEADACHE Indication s: acute pain, chronic pain, Headache butorphanol 2021-0 Yes 2745 USE 1 Unive rs 10 mg/mL 2-05 SPRAY IN ity of nasal spray 00:00: ONE [place] NOSTRIL Medical EVERY 8 Branch HOURS NEEDED FOR HEADACHE Indication s: acute pain, chronic pain, Headache butorphanol 2021-0 Yes 2745 USE 1 Unive rs 10 mg/mL 2-05 SPRAY IN ity of nasal spray 00:00: ONE [place] NOSTRIL Medical EVERY 8 Branch HOURS NEEDED FOR HEADACHE Indication s: acute pain, chronic pain, Headache butorphanol 2021-0 Yes 2745 USE 1 Unive rs 10 mg/mL 2-05 SPRAY IN ity of nasal spray 00:00: ONE [place] NOSTRIL Medical EVERY 8 Branch HOURS NEEDED FOR HEADACHE Indication s: acute pain, chronic pain, Headache butorphanol 2021-0 Yes 2745 USE 1 Unive rs 10 mg/mL 2-05 SPRAY IN ity of nasal spray 00:00: ONE [place] NOSTRIL Medical EVERY 8 Branch HOURS NEEDED FOR HEADACHE Indication s: acute pain, chronic pain, Headache butorphanol 2021-0 Yes 2745 USE 1 Unive rs 10 mg/mL 2-05 SPRAY IN ity of nasal spray 00:00: ONE [place] NOSTRIL Medical EVERY 8 Branch HOURS NEEDED FOR HEADACHE Indication s: acute pain, chronic pain, Headache butorphanol 2021-0 Yes 2745 USE 1 Unive rs 10 mg/mL 2-05 SPRAY IN ity of nasal spray 00:00: ONE [place] [address] NOSTRIL Medical EVERY 8 Branch HOURS NEEDED FOR HEADACHE Indication s: acute pain, chronic pain, Headache butorphanol 2021-0 Yes 2745 USE 1 Unive rs 10 mg/mL 2-05 SPRAY IN ity of nasal spray 00:00: ONE [place] [address] NOSTRIL Medical EVERY 8 Branch HOURS NEEDED FOR HEADACHE Indication s: acute pain, chronic pain, Headache butorphanol 2021-0 2021- No 2745 USE 1 Univ ers 10 mg/mL 2-05 03-05 SPRAY IN ity of nasal spray 00:00: 00:00 formerly [facility] 00 :00 NOSTRIL Medical EVERY 8 Branch HOURS NEEDED FOR HEADACHE Indication s: acute pain, chronic pain, Headache butorphanol 2021-0 2021- No 2745 USE 1 Univ ers 10 mg/mL 2-05 03-05 SPRAY IN ity of nasal spray 00:00: 00:00 formerly [facility] 00 :00 NOSTRIL Medical EVERY 8 Branch HOURS NEEDED FOR HEADACHE Indication s: acute pain, chronic pain, Headache butorphanol 202-0 Yes 2745 USE 1 Unive rs 10 mg/mL 1-05 SPRAY IN ity of nasal spray 00:00: ONE [place] NOSTRIL Medical EVERY 8 Branch HOURS NEEDED FOR HEADACHE Indication s: acute pain, chronic pain, Headache butorphanol 202-0 Yes 2745 USE 1 Unive rs 10 mg/mL 1-05 SPRAY IN ity of nasal spray 00:00: ONE [place] NOSTRIL Medical EVERY 8 Branch HOURS NEEDED FOR HEADACHE Indication s: acute pain, chronic pain, Headache butorphanol 202-0 Yes 2745 USE 1 Unive rs 10 mg/mL 1-05 SPRAY IN ity of nasal spray 00:00: ONE [place] [address] NOSTRIL Medical EVERY 8 Branch HOURS NEEDED FOR HEADACHE Indication s: acute pain, chronic pain, Headache butorphanol 2021-0 2021- No 2745 USE 1 Univ ers 10 mg/mL 1-05 02-05 SPRAY IN ity of nasal spray 00:00: 00:00 formerly [facility] 00 :00 NOSTRIL Medical EVERY 8 Branch HOURS NEEDED FOR HEADACHE Indication s: acute pain, chronic pain, Headache butorphanol 2020-1 Yes 2745 USE 1 Unive rs 10 mg/mL 2-07 SPRAY IN ity of nasal spray 00:00: ONE [place] [address] NOSTRIL Medical EVERY 8 Branch HOURS NEEDED FOR HEADACHE Indication s: acute pain, chronic pain, Headache butorphanol 2020-1 Yes 2745 USE 1 Unive rs 10 mg/mL 2-07 SPRAY IN ity of nasal spray 00:00: ONE [place] [address] NOSTRIL Medical EVERY 8 Branch HOURS NEEDED FOR HEADACHE Indication s: acute pain, chronic pain, Headache butorphanol 2020-1 2021- No 2745 USE 1 Univ ers 10 mg/mL 2-07 01-05 SPRAY IN ity of nasal spray 00:00: 00:00 [facility] 00 :00 NOSTRIL Medical EVERY [...] TABLET BY ity of tablet 00:00: MOUTH [place] 00 EVERYDAY Medical AT BEDTIME Branch AMITRIPTYLI 2020- Yes TAKE 1 Univ ers NE 25 mg 1-10 TABLET BY ity of tablet 00:00: [facility] 00 EVERYDAY Medical AT BEDTIME Branch AMITRIPTYLI 2019- Yes TAKE 1 Univ ers NE 25 mg 1-10 TABLET BY ity of tablet 00:00: [facility] 00 EVERYDAY Medical AT BEDTIME Branch AMITRIPTYLI 2019-02 Yes TAKE 1 Univ ers NE 25 mg 1-10 TABLET BY ity of tablet 00:00: [facility] 00 EVERYDAY Medical AT BEDTIME Branch AMITRIPTYLI 2019-02 Yes TAKE 1 Univ ers NE 25 mg 1-10 TABLET BY ity of tablet 00:00: [facility] 00 EVERYDAY Medical AT BEDTIME Branch AMITRIPTYLI 2019-02 Yes TAKE 1 Univ ers NE 25 mg 1-10 TABLET BY ity of tablet 00:00: [facility] EVERYDAY Medical AT BEDTIME Branch AMITRIPTYLI 2019-02 Yes TAKE 1 Univ ers NE 25 mg 1-10 TABLET BY ity of tablet 00:00: [facility] 00 EVERYDAY Medical AT BEDTIME Branch AMITRIPTYLI 2019-02 Yes TAKE 1 Univ ers NE 25 mg 1-10 TABLET BY ity of tablet 00:00: [facility] 00 EVERYDAY Medical AT BEDTIME Branch AMITRIPTYLI 2019-02- No TAKE 1 Uni vers NE 25 mg 1-10 05-05 TABLET BY ity o f tablet 00:00: 00:00 [facility] 00 :00 EVERYDAY Medical AT BEDTIME Branch butorphanol 2019- Yes 2745 USE 1 Unive rs 10 mg/mL 1-09 SPRAY IN ity of nasal spray 00:00: [place] NOSTRIL Medical EVERY 8 Branch HOURS NEEDED FOR HEADACHE Indication s: chronic pain, Headache butorphanol 2019-02 Yes 2745 USE 1 Unive rs 10 mg/mL 1-09 SPRAY IN ity of nasal spray 00:00: [place] NOSTRIL Medical EVERY 8 Branch HOURS NEEDED FOR HEADACHE Indication s: chronic pain, Headache butorphanol 2019-02 Yes 2745 USE 1 Unive rs 10 mg/mL 1-09 SPRAY IN ity of nasal spray 00:00: [place] NOSTRIL Medical EVERY 8 Branch HOURS NEEDED FOR HEADACHE Indication s: chronic pain, Headache butorphanol 2020-1 2020- No 2745 USE 1 Univ ers 10 mg/mL 1-09 12-07 SPRAY IN ity of nasal spray 00:00: 00:00 ONE [place] 00 :00 NOSTRIL Medical EVERY 8 Branch HOURS NEEDED FOR HEADACHE Indication s: chronic pain, Headache butorphanol 2020-1 Yes 2745 USE 1 Unive rs 10 mg/mL 0-09 SPRAY IN ity of nasal spray 00:00: ONE [place] 00 NOSTRIL Medical EVERY 8 Branch HOURS NEEDED FOR HEADACHE Indication s: chronic pain, Headache butorphanol 2020-1 Yes 2745 USE 1 Unive rs 10 mg/mL 0-09 SPRAY IN ity of nasal spray 00:00: ONE [place] [address] NOSTRIL Medical EVERY 8 Branch HOURS NEEDED FOR HEADACHE Indication s: chronic pain, Headache butorphanol 2020-1 2020- No 2745 USE 1 Univ ers 10 mg/mL 0-09 11-09 SPRAY IN ity of nasal spray 00:00: 00:00 ONE [place] 00 :00 NOSTRIL Medical EVERY 8 Branch HOURS NEEDED FOR HEADACHE Indication s: chronic pain, Headache butorphanol 2020-0 Yes 2745 USE 1 Unive rs 10 mg/mL 9-11 SPRAY IN ity of nasal spray 00:00: ONE [place] [address] NOSTRIL Medical EVERY 8 Branch HOURS NEEDED FOR HEADACHE Indication s: chronic pain, Headache butorphanol 2020-0 Yes 2745 USE 1 Unive rs 10 mg/mL 9-11 SPRAY IN ity of nasal spray 00:00: ONE [place] [address] NOSTRIL Medical EVERY 8 Branch HOURS NEEDED FOR HEADACHE Indication s: chronic pain, Headache butorphanol 2020-0 2020- No 2745 USE 1 Univ ers 10 mg/mL 9-11 10-09 SPRAY IN ity of nasal spray 00:00: 00:00 ONE [place] 00 :00 NOSTRIL Medical EVERY 8 Branch HOURS NEEDED FOR HEADACHE Indication s: chronic pain, Headache butorphanol 2020-0 Yes USE 1 Unive rs 10 mg/mL 8-14 SPRAY IN ity of nasal spray 00:00: ONE [place] [address] NOSTRIL Medical EVERY 8 Branch HOURS NEEDED [...] IN ity of nasal spray 00:00: ONE [place] 00 NOSTRIL Medical EVERY 8 Branch HOURS NEEDED FOR HEADACHE Indication s: chronic pain, Headache butorphanol 2020-0 2020- No 2745 USE 1 Univ ers 10 mg/mL 8-14 09-11 SPRAY IN ity of nasal spray 00:00: 00:00 ONE [place] 00 :00 NOSTRIL Medical EVERY 8 Branch HOURS NEEDED FOR HEADACHE Indication s: chronic pain, Headache butorphanol 2020-0 2020- No USE 1 Univ ers 10 mg/mL 8-14 08-14 SPRAY IN ity of nasal spray 00:00: 00:00 ONE [place] 00 :00 NOSTRIL Medical EVERY 8 Branch HOURS NEEDED FOR HEADACHE Indication s: Headache butorphanol 2020-0 Yes USE 1 Unive rs 10 mg/mL 7-14 SPRAY IN ity of nasal spray 00:00: ONE [place] [address] NOSTRIL Medical EVERY 8 Branch HOURS NEEDED FOR HEADACHE Indication s: Headache butorphanol 2020-0 2020- No USE 1 Univ ers 10 mg/mL 7-14 08-14 SPRAY IN ity of nasal spray 00:00: 00:00 ONE [place] 00 :00 NOSTRIL Medical EVERY 8 Branch HOURS NEEDED FOR HEADACHE Indication s: Headache butorphanol 2020-0 2020- No USE 1 Univ ers 10 mg/mL 6-09 07-14 SPRAY IN ity of nasal spray 00:00: 00:00 ONE [place] 00 :00 NOSTRIL Medical EVERY 8 Branch HOURS NEEDED FOR HEADACHE butorphanol 2020-0 Yes USE 1 Unive rs 10 mg/mL 6-04 SPRAY IN ity of nasal spray 00:00: ONE [place] 00 NOSTRIL Medical EVERY 8 Branch HOURS NEEDED FOR HEADACHE butorphanol 2020-0 Yes USE 1 Unive rs 10 mg/mL 6-04 SPRAY IN ity of nasal spray 00:00: ONE [place] [address] NOSTRIL Medical EVERY 8 Branch HOURS NEEDED FOR HEADACHE butorphanol 2020-0 Yes USE 1 Unive rs 10 mg/mL 6-04 SPRAY IN ity of nasal spray 00:00: ONE [place] [address] NOSTRIL Medical EVERY 8 Branch HOURS NEEDED FOR HEADACHE butorphanol 2020-0 Yes USE 1 Unive rs 10 mg/mL 6-04 SPRAY IN ity of nasal spray 00:00: [place] NOSTRIL Medical EVERY 8 Branch HOURS NEEDED FOR HEADACHE butorphanol 2020-0 Yes USE 1 Unive rs 10 mg/mL 6-04 SPRAY IN ity of nasal spray 00:00: [place] NOSTRIL Medical EVERY 8 Branch HOURS NEEDED FOR HEADACHE butorphanol 2020-0 Yes USE 1 Unive rs 10 mg/mL 6-04 SPRAY IN ity of nasal spray 00:00: [place] NOSTRIL Medical EVERY 8 Branch HOURS NEEDED FOR HEADACHE butorphanol 2020-0 Yes USE 1 Unive rs 10 mg/mL 6-04 SPRAY IN ity of nasal spray 00:00: [place] NOSTRIL Medical EVERY 8 Branch HOURS NEEDED FOR HEADACHE SERTRALINE 2020-0 Yes [id number] TAKE 1 U nivers 25 mg 5-21 TABLET BY ity of tablet 00:00: [facility] EVERY DAY Medical Branch SERTRALINE 2020-0 Yes [id number] TAKE 1 U nivers 25 mg 5-21 TABLET BY ity of tablet 00:00: [facility] EVERY DAY Medical Branch SERTRALINE 2020-0 Yes [id number] TAKE 1 U nivers 25 mg 5-21 TABLET BY ity of tablet 00:00: [facility] EVERY DAY Medical Branch SERTRALINE 2020-0 Yes [id number] TAKE 1 U nivers 25 mg 5-21 TABLET BY ity of tablet 00:00: [facility] EVERY DAY Medical Branch SERTRALINE 2020-0 Yes [id number] TAKE 1 U nivers 25 mg 5-21 TABLET BY ity of tablet 00:00: [facility] EVERY DAY Medical Branch SERTRALINE 2020-0 Yes [id number] TAKE 1 U nivers 25 mg 5-21 TABLET BY ity of tablet 00:00: [facility] EVERY DAY Medical Branch SERTRALINE 2020-0 Yes [id number] TAKE 1 U nivers 25 mg 5-21 TABLET BY ity of tablet 00:00: [facility] EVERY DAY Medical Branch SERTRALINE 2020-0 Yes [id number] TAKE 1 U nivers 25 mg 5-21 TABLET BY ity of tablet 00:00: [facility] EVERY DAY Medical Branch SERTRALINE 2020-0 Yes [id number] TAKE 1 U nivers 25 mg 5-21 TABLET BY ity of tablet 00:00: [facility] EVERY DAY Medical Branch SERTRALINE 2020-0 Yes [id number] TAKE 1 U nivers 25 mg 5-21 TABLET BY ity of tablet 00:00: [facility] EVERY DAY Medical Branch SERTRALINE 2020-0 Yes [id number] TAKE 1 U nivers 25 mg 5-21 TABLET BY ity of tablet 00:00: [facility] EVERY DAY Medical Branch SERTRALINE 2020-0 Yes [id number] TAKE 1 U nivers 25 mg 5-21 TABLET BY ity of tablet 00:00: [facility] EVERY DAY Medical Branch SERTRALINE 2020-0 Yes [id number] TAKE 1 U nivers 25 mg 5-21 TABLET BY ity of tablet 00:00: [facility] EVERY DAY Medical Branch SERTRALINE 2020-0 Yes [id number] TAKE 1 U nivers 25 mg 5-21 TABLET BY ity of tablet 00:00: [facility] EVERY DAY Medical Branch SERTRALINE 2020-0 Yes [id number] TAKE 1 U nivers 25 mg 5-21 TABLET BY ity of tablet 00:00: [facility] EVERY DAY Medical Branch SERTRALINE 2020-0 Yes [id number] TAKE 1 U nivers 25 mg 5-21 TABLET BY ity of tablet 00:00: [facility] EVERY DAY Medical Branch SERTRALINE 2020-0 Yes [id number] TAKE 1 U nivers 25 mg 5-21 TABLET BY ity of tablet 00:00: [facility] EVERY DAY Medical Branch SERTRALINE 2020-0 Yes [id number] TAKE 1 U nivers 25 mg 5-21 TABLET BY ity of tablet 00:00: [facility] EVERY DAY Medical Branch SERTRALINE 2020-0 Yes [id number] TAKE 1 U nivers 25 mg 5-21 TABLET BY ity of tablet 00:00: [facility] EVERY DAY Medical Branch SERTRALINE 2020-0 Yes [id number] TAKE 1 U nivers 25 mg 5-21 TABLET BY ity of tablet 00:00: [facility] EVERY DAY Medical Branch SERTRALINE 2020-0 Yes [id number] TAKE 1 U nivers 25 mg 5-21 TABLET BY ity of tablet 00:00: [facility] EVERY DAY Medical Branch SERTRALINE 2020-0 Yes [id number] TAKE 1 U nivers 25 mg 5-21 TABLET BY ity of tablet 00:00: [facility] EVERY DAY Medical Branch SERTRALINE 2020-0 Yes [id number] TAKE 1 U nivers 25 mg 5-21 TABLET BY ity of tablet 00:00: [facility] EVERY DAY Medical Branch SERTRALINE 2020-0 Yes [id number] TAKE 1 U nivers 25 mg 5-21 TABLET BY ity of tablet 00:00: [facility] EVERY DAY Medical Branch SERTRALINE 2020-0 Yes [id number] TAKE 1 U nivers 25 mg 5-21 TABLET BY ity of tablet 00:00: [facility] EVERY DAY Medical Branch SERTRALINE 2020-0 Yes [id number] TAKE 1 U nivers 25 mg 5-21 TABLET BY ity of tablet 00:00: [facility] EVERY DAY Medical Branch SERTRALINE 2020-0 Yes [id number] TAKE 1 U nivers 25 mg 5-21 TABLET BY ity of tablet 00:00: [facility] EVERY DAY Medical Branch SERTRALINE 2020-0 Yes [id number] TAKE 1 U nivers 25 mg 5-21 TABLET BY ity of tablet 00:00: [facility] EVERY DAY Medical Branch SERTRALINE 2020-0 Yes [id number] TAKE 1 U nivers 25 mg 5-21 TABLET BY ity of tablet 00:00: [facility] EVERY DAY Medical Branch SERTRALINE 2020-0 Yes [id number] TAKE 1 U nivers 25 mg 5-21 TABLET BY ity of tablet 00:00: [facility] EVERY DAY Medical Branch SERTRALINE 2020-0 Yes [id number] TAKE 1 U nivers 25 mg 5-21 TABLET BY ity of tablet 00:00: [facility] EVERY DAY Medical Branch SERTRALINE 2020-0 Yes [id number] TAKE 1 U nivers 25 mg 5-21 TABLET BY ity of tablet 00:00: [facility] EVERY DAY Medical Branch SERTRALINE 2020-0 Yes [id number] TAKE 1 U nivers 25 mg 5-21 TABLET BY ity of tablet 00:00: [facility] EVERY DAY Medical Branch SERTRALINE 2020-0 Yes [id number] TAKE 1 U nivers 25 mg 5-21 TABLET BY ity of tablet 00:00: [facility] EVERY DAY Medical Branch SERTRALINE 2020-0 Yes [id number] TAKE 1 U nivers 25 mg 5-21 TABLET BY ity of tablet 00:00: [facility] EVERY DAY Medical Branch SERTRALINE 2020-0 Yes [id number] TAKE 1 U nivers 25 mg 5-21 TABLET BY ity of tablet 00:00: MOUTH [place] EVERY DAY Medical Branch SERTRALINE 2020-0 Yes [id number] TAKE 1 U nivers 25 mg 5-21 TABLET BY ity of tablet 00:00: MOUTH [place] EVERY DAY Medical Branch SERTRALINE 2020-0 Yes [id number] TAKE 1 U nivers 25 mg 5-21 TABLET BY ity of tablet 00:00: MOUTH [place] EVERY DAY Medical Branch SERTRALINE 2020-0 Yes [id number] TAKE 1 U nivers 25 mg 5-21 TABLET BY ity of tablet 00:00: MOUTH [place] 00 EVERY DAY Medical Branch SERTRALINE 2020-0 Yes [id number] TAKE 1 U nivers 25 mg 5-21 TABLET BY ity of tablet 00:00: MOUTH [place] EVERY DAY Medical Branch SERTRALINE 2020-0 Yes [id number] TAKE 1 U nivers 25 mg 5-21 TABLET BY ity of tablet 00:00: [facility] EVERY DAY Medical Branch SERTRALINE 2020-0 Yes [id number] TAKE 1 U nivers 25 mg 5-21 TABLET BY ity of tablet 00:00: MOUTH [place] EVERY DAY Medical Branch butorphanol 2020-0 Yes USE 1 Unive rs 10 mg/mL 5-05 SPRAY IN ity of nasal spray 00:00: ONE [place] NOSTRIL Medical EVERY 8 Branch HOURS NEEDED FOR HEADACHE amitriptyli 2020-0 Yes 25mg Take 1 Univ ers ne 25 mg 5-05 tablet by ity of tablet 00:00: mouth at [place] [address] bedtime. Medical Branch butorphanol 2020-0 Yes USE 1 Unive rs 10 mg/mL 5-05 SPRAY IN ity of nasal spray 00:00: ONE [place] NOSTRIL Medical EVERY 8 Branch HOURS NEEDED FOR HEADACHE amitriptyli 2020-0 Yes 25mg Take 1 Univ ers ne 25 mg 5-05 tablet by ity of tablet 00:00: mouth at [place] [address] bedtime. Medical Branch butorphanol 2020-0 Yes USE 1 Unive rs 10 mg/mL 5-05 SPRAY IN ity of nasal spray 00:00: ONE [place] NOSTRIL Medical EVERY 8 Branch HOURS NEEDED FOR HEADACHE amitriptyli 2020-0 Yes 25mg Take 1 Univ ers ne 25 mg 5-05 tablet by ity of tablet 00:00: mouth at [place] [address] bedtime. Medical Branch butorphanol 2020-0 Yes USE 1 Unive rs 10 mg/mL 5-05 SPRAY IN ity of nasal spray 00:00: ONE [place] NOSTRIL Medical EVERY 8 Branch HOURS NEEDED FOR HEADACHE amitriptyli 2020-0 Yes 25mg Take 1 Univ ers ne 25 mg 5-05 tablet by ity of tablet 00:00: mouth at [place] [address] bedtime. Medical Branch butorphanol 2020-0 Yes USE 1 Unive rs 10 mg/mL 5-05 SPRAY IN ity of nasal spray 00:00: ONE [place] NOSTRIL Medical EVERY 8 Branch HOURS NEEDED FOR HEADACHE amitriptyli 2020-0 Yes 25mg Take 1 Univ ers ne 25 mg 5-05 tablet by ity of tablet 00:00: mouth at [place] [address] bedtime. Medical Branch amitriptyli 2020-0 Yes 25mg Take 1 Univ ers ne 25 mg 5-05 tablet by ity of tablet 00:00: mouth at [place] [address] bedtime. Medical Branch amitriptyli 2020-0 Yes 25mg Take 1 Univ ers ne 25 mg 5-05 tablet by ity of tablet 00:00: mouth at [place] [address] bedtime. Medical Branch amitriptyli 2020-0 Yes 25mg Take 1 Univ ers ne 25 mg 5-05 tablet by ity of tablet 00:00: mouth at [place] [address] bedtime. Medical Branch amitriptyli 2020-0 Yes 25mg Take 1 Univ ers ne 25 mg 5-05 tablet by ity of tablet 00:00: mouth at [place] [address] bedtime. Medical Branch amitriptyli 2020-0 Yes 25mg Take 1 Univ ers ne 25 mg 5-05 tablet by ity of tablet 00:00: mouth at [place] [address] bedtime. Medical Branch amitriptyli 2020-0 Yes 25mg Take 1 Univ ers ne 25 mg 5-05 tablet by ity of tablet 00:00: mouth at [place] [address] bedtime. Medical Branch amitriptyli 2020-0 Yes 25mg Take 1 Univ ers ne 25 mg 5-05 tablet by ity of tablet 00:00: mouth at [place] [address] bedtime. Medical Branch amitriptyli 2020-0 Yes 25mg Take 1 Univ ers ne 25 mg 5-05 tablet by ity of tablet 00:00: mouth at [place] [address] bedtime. Medical Branch amitriptyli 2020-0 Yes 25mg Take 1 Univ ers ne 25 mg 5-05 tablet by ity of tablet 00:00: mouth at [place] [address] bedtime. Medical Branch amitriptyli 2020-0 Yes 25mg Take 1 Univ ers ne 25 mg 5-05 tablet by ity of tablet 00:00: mouth at [place] [address] bedtime. Medical Branch amitriptyli 2020-0 Yes 25mg Take 1 Univ ers ne 25 mg 5-05 tablet by ity of tablet 00:00: mouth at [place] [address] bedtime. Medical Branch amitriptyli 2020-0 Yes 25mg Take 1 Univ ers ne 25 mg 5-05 tablet by ity of tablet 00:00: mouth at [place] [address] bedtime. Medical Branch amitriptyli 2020-0 Yes 25mg Take 1 Univ ers ne 25 mg 5-05 tablet by ity of tablet 00:00: mouth at [place] [address] bedtime. Medical Branch amitriptyli 2020-0 Yes 25mg Take 1 Univ ers ne 25 mg 5-05 tablet by ity of tablet 00:00: mouth at [place] [address] bedtime. Medical Branch amitriptyli 2020-0 Yes 25mg Take 1 Univ ers ne 25 mg 5-05 tablet by ity of tablet 00:00: mouth at [place] [address] bedtime. Medical Branch amitriptyli 2020-0 Yes 25mg Take 1 Univ ers ne 25 mg 5-05 tablet by ity of tablet 00:00: mouth at [place] [address] bedtime. Medical Branch amitriptyli 2020-0 Yes 25mg Take 1 Univ ers ne 25 mg 5-05 tablet by ity of tablet 00:00: mouth at [place] [address] bedtime. Medical Branch amitriptyli 2020-0 2020- No 25mg Take 1 Uni vers ne 25 mg 5-05 11-10 tablet by ity o f tablet 00:00: 00:00 mouth at [place] 00 :00 bedtime. Medical Branch butorphanol 2020-0 2020- No USE 1 Univ ers 10 mg/mL 5-05 06-04 SPRAY IN ity of nasal spray 00:00: 00:00 ONE [place] 00 :00 NOSTRIL Medical EVERY 8 Branch HOURS NEEDED FOR HEADACHE butorphanol 2020-0 2020- No USE 1 Univ ers 10 mg/mL 5-05 06-04 SPRAY IN ity of nasal spray 00:00: 00:00 formerly [facility] 00 :00 NOSTRIL Medical EVERY 8 Branch HOURS NEEDED FOR HEADACHE AMITRIPTYLI 2020-0 Yes TAKE 1 Univ ers NE 25 mg 4-14 TABLET BY ity of tablet 00:00: [facility] 00 EVERYDAY Medical AT BEDTIME Branch AMITRIPTYLI 2020-0 2020- No TAKE 1 Uni vers NE 25 mg 4-14 05-05 TABLET BY ity o f tablet 00:00: 00:[address] [facility] [place] 00 :00 EVERYDAY Medical AT BEDTIME Branch butorphanol 2020-0 Yes USE 1 Unive rs 10 mg/mL 4-01 SPRAY IN ity of nasal spray 00:00: [place] NOSTRIL Medical EVERY 8 Branch HOURS NEEDED FOR HEADACHE butorphanol 2020-0 Yes USE 1 Unive rs 10 mg/mL 4-01 SPRAY IN ity of nasal spray 00:00: [place] NOSTRIL Medical EVERY 8 Branch HOURS NEEDED FOR HEADACHE butorphanol 2020-0 2020- No USE 1 Univ ers 10 mg/mL 4-01 05-05 SPRAY IN ity of nasal spray 00:00: 00:00 [facility] 00 :00 NOSTRIL Medical EVERY 8 Branch HOURS NEEDED FOR HEADACHE AMITRIPTYLI 2020-0 Yes TAKE 1 Univ ers NE 25 mg 3-30 TABLET BY ity of tablet 00:00: [facility] 00 EVERYDAY Medical AT BEDTIME Branch AMITRIPTYLI 2020-0 Yes TAKE 1 [facility] [place] 25 mg 3-30 TABLET BY [facility] tablet 00:00: MOUTH [place] 00 EVERYDAY Medical AT BEDTIME Branch AMITRIPTYLI 2020-0 2020- No TAKE 1 [facility] [place] 25 mg 3-30 04-14 TABLET BY it[facility] o f tablet 00:00: 00:00 MOUTH [place] 00 :00 EVERYDAY Medical AT BEDTIME Branch sulfamethox 2020-0 Yes [id number] 1{tbl} Take 1 [facility] azole-trime 3-25 tablet by ity of thoprim 00:00: mouth 2 [place] 800-160 mg 00 (two) Medical per tablet times Branch daily. sulfamethox 2020-0 Yes [id number] 1{tbl} Take 1 [facility] azole-trime 3-25 tablet by [facility] of thoprim 00:00: mouth 2 [place] 800-160 mg 00 (two) Medical per tablet times Branch daily. sulfamethox 2020-0 Yes [id number] 1{tbl} Take 1 [facility] azole-trime 3-25 tablet by ity of thoprim 00:00: mouth 2 [place] 800-160 mg 00 (two) Medical per tablet times Branch daily. sulfamethox 2020-0 Yes [id number] 1{tbl} Take 1 [facility] azole-trime 3-25 tablet by ity of thoprim 00:00: mouth 2 [place] 800-160 mg 00 (two) Medical per tablet times Branch daily. sulfamethox 2020-0 Yes [id number] 1{tbl} Take 1 [facility] azole-trime 3-25 tablet by [facility]y of thoprim 00:00: mouth 2 [place] 800-160 mg 00 (two) Medical per tablet times Branch daily. sulfamethox 2020-0 Yes [id number] 1{tbl} Take 1 [facility] azole-trime 3-25 tablet by [facility]y of thoprim 00:00: mouth 2 [place] 800-160 mg 00 (two) Medical per tablet times Branch daily. sulfamethox 2020-0 Yes [id number] 1{tbl} Take 1 [facility] azole-trime 3-25 tablet by [facility] of thoprim 00:00: mouth 2 [place] 800-160 mg 00 (two) Medical per tablet times Branch daily. sulfamethox 2020-0 Yes [id number] 1{tbl} Take 1 [facility] azole-trime 3-25 tablet by [facility]y of thoprim 00:00: mouth 2 [place] 800-160 mg 00 (two) Medical per tablet times Branch daily. sulfamethox 2020-0 Yes [id number] 1{tbl} Take 1 [facility] azole-trime 3-25 tablet by it[facility] of thoprim 00:00: mouth 2 [place] 800-160 mg 00 (two) Medical per tablet times Branch daily. sulfamethox 2020-0 Yes [id number] 1{tbl} Take 1 [facility] azole-trime 3-25 tablet by [facility] of thoprim 00:00: mouth 2 [place] 800-160 mg 00 (two) Medical per tablet times Branch daily. sulfamethox 2020-0 Yes [id number] 1{tbl} Take 1 [facility] azole-trime 3-25 tablet by [facility] of thoprim 00:00: mouth 2 [place] 800-160 mg 00 (two) Medical per tablet times Branch daily. sulfamethox 2020-0 Yes [id number] 1{tbl} Take 1 [facility] azole-trime 3-25 tablet by [facility] of thoprim 00:00: mouth 2 [place] 800-160 mg 00 (two) Medical per tablet times Branch daily. sulfamethox 2020-0 Yes [id number] 1{tbl} Take 1 [facility] azole-trime 3-25 tablet by [facility] of thoprim 00:00: mouth 2 [place] 800-160 mg 00 (two) Medical per tablet times Branch daily. sulfamethox 2020-0 Yes [id number] 1{tbl} Take 1 [facility] azole-trime 3-25 tablet by ity of thoprim 00:00: mouth 2 [place] 800-160 mg 00 (two) Medical per tablet times Branch daily. sulfamethox 2020-0 Yes [id number] 1{tbl} Take 1 [facility] azole-trime 3-25 tablet by [facility]y of thoprim 00:00: mouth 2 [place] 800-160 mg 00 (two) Medical per tablet times Branch daily. sulfamethox 2020-0 Yes [id number] 1{tbl} Take 1 [facility] azole-trime 3-25 tablet by [facility]y of thoprim 00:00: mouth 2 [place] 800-160 mg 00 (two) Medical per tablet times Branch daily. sulfamethox 2020-0 Yes [id number] 1{tbl} Take 1 [facility] azole-trime 3-25 tablet by ity of thoprim 00:00: mouth 2 [place] 800-160 mg 00 (two) Medical per tablet times Branch daily. sulfamethox 2020-0 Yes [id number] 1{tbl} Take 1 [facility] azole-trime 3-25 tablet by ity of thoprim 00:00: mouth 2 [place] 800-160 mg 00 (two) Medical per tablet times Branch daily. sulfamethox 2020-0 Yes [id number] 1{tbl} Take 1 [facility] azole-trime 3-25 tablet by ity of thoprim 00:00: mouth 2 [place] 800-160 mg 00 (two) Medical per tablet times Branch daily. sulfamethox 2020-0 Yes [id number] 1{tbl} Take 1 [facility] azole-trime 3-25 tablet by ity of thoprim 00:00: mouth 2 [place] 800-160 mg 00 (two) Medical per tablet times Branch daily. sulfamethox 2020-0 Yes [id number] 1{tbl} Take 1 [facility] azole-trime 3-25 tablet by ity of thoprim 00:00: mouth 2 [place] 800-160 mg 00 (two) Medical per tablet times Branch daily. sulfamethox 2020-0 Yes [id number] 1{tbl} Take 1 [facility] azole-trime 3-25 tablet by ity of thoprim 00:00: mouth 2 [place] 800-160 mg 00 (two) Medical per tablet times Branch daily. sulfamethox 2020-0 Yes [id number] 1{tbl} Take 1 [facility] azole-trime 3-25 tablet by ity of thoprim 00:00: mouth 2 [place] 800-160 mg 00 (two) Medical per tablet times Branch daily. sulfamethox 2020-0 Yes [id number] 1{tbl} Take 1 [facility] azole-trime 3-25 tablet by ity of thoprim 00:00: mouth 2 [place] 800-160 mg 00 (two) Medical per tablet times Branch daily. sulfamethox 2020-0 Yes [id number] 1{tbl} Take 1 [facility] azole-trime 3-25 tablet by [facility] of thoprim 00:00: mouth 2 [place] 800-160 mg 00 (two) Medical per tablet times Branch daily. sulfamethox 2020-0 Yes [id number] 1{tbl} Take 1 [facility] azole-trime 3-25 tablet by it[facility] of thoprim 00:00: mouth 2 [place] 800-160 mg 00 (two) Medical per tablet times Branch daily. sulfamethox 2020-0 Yes [id number] 1{tbl} Take 1 [facility] azole-trime 3-25 tablet by [facility] of thoprim 00:00: mouth 2 [place] 800-160 mg 00 (two) Medical per tablet times Branch daily. sulfamethox 2020-0 Yes [id number] 1{tbl} Take 1 [facility] azole-trime 3-25 tablet by ity of thoprim 00:00: mouth 2 [place] 800-160 mg 00 (two) Medical per tablet times Branch daily. sulfamethox 2020-0 Yes [id number] 1{tbl} Take 1 [facility] azole-trime 3-25 tablet by ity of thoprim 00:00: mouth 2 [place] 800-160 mg 00 (two) Medical per tablet times Branch daily. sulfamethox 2020-0 Yes [id number] 1{tbl} Take 1 [facility] azole-trime 3-25 tablet by ity of thoprim 00:00: mouth 2 [place] 800-160 mg 00 (two) Medical per tablet times Branch daily. sulfamethox 2020-0 Yes [id number] 1{tbl} Take 1 [facility] azole-trime 3-25 tablet by ity of thoprim 00:00: mouth 2 [place] 800-160 mg 00 (two) Medical per tablet times Branch daily. sulfamethox 2020-0 Yes [id number] 1{tbl} Take 1 [facility] azole-trime 3-25 tablet by ity of thoprim 00:00: mouth 2 [place] 800-160 mg 00 (two) Medical per tablet times Branch daily. sulfamethox 2020-0 Yes [id number] 1{tbl} Take 1 [facility] azole-trime 3-25 tablet by ity of thoprim 00:00: mouth 2 [place] 800-160 mg 00 (two) Medical per tablet times Branch daily. sulfamethox 2020-0 Yes [id number] 1{tbl} Take 1 [facility] azole-trime 3-25 tablet by ity of thoprim 00:00: mouth 2 [place] 800-160 mg 00 (two) Medical per tablet times Branch daily. sulfamethox 2020-0 Yes [id number] 1{tbl} Take 1 [facility] azole-trime 3-25 tablet by ity of thoprim 00:00: mouth 2 [place] 800-160 mg 00 (two) Medical per tablet times Branch daily. sulfamethox 2020-0 Yes [id number] 1{tbl} Take 1 [facility] azole-trime 3-25 tablet by ity of thoprim 00:00: mouth 2 [place] 800-160 mg 00 (two) Medical per tablet times Branch daily. sulfamethox 2020-0 Yes [id number] 1{tbl} Take 1 [facility] azole-trime 3-25 tablet by ity of thoprim 00:00: mouth 2 [place] 800-160 mg 00 (two) Medical per tablet times Branch daily. sulfamethox 2020-0 Yes [id number] 1{tbl} Take 1 [facility] azole-trime 3-25 tablet by ity of thoprim 00:00: mouth 2 [place] 800-160 mg 00 (two) Medical per tablet times Branch daily. sulfamethox 2020-0 Yes [id number] 1{tbl} Take 1 [facility] azole-trime 3-25 tablet by ity of thoprim 00:00: mouth 2 [place] 800-160 mg 00 (two) Medical per tablet times Branch daily. sulfamethox 2020-0 Yes [id number] 1{tbl} Take 1 [facility] azole-trime 3-25 tablet by ity of thoprim 00:00: mouth 2 [place] 800-160 mg 00 (two) Medical per tablet times Branch daily. sulfamethox 2020-0 Yes [id number] 1{tbl} Take 1 [facility] azole-trime 3-25 tablet by [facility]y of thoprim 00:00: mouth 2 [place] 800-160 mg 00 (two) Medical per tablet times Branch daily. sulfamethox 2020-0 Yes [id number] 1{tbl} Take 1 [facility] azole-trime 3-25 tablet by [facility]y of thoprim 00:00: mouth 2 [place] 800-160 mg 00 (two) Medical per tablet times Branch daily. sulfamethox 2020-0 Yes [id number] 1{tbl} Take 1 [facility] azole-trime 3-25 tablet by ity of thoprim 00:00: mouth 2 [place] 800-160 mg 00 (two) Medical per tablet times Branch daily. sulfamethox 2020-0 Yes [id number] 1{tbl} Take 1 [facility] azole-trime 3-25 tablet by ity of thoprim 00:00: mouth 2 [place] 800-160 mg 00 (two) Medical per tablet times Branch daily. sulfamethox 2020-0 Yes [id number] 1{tbl} Take 1 [facility] azole-trime 3-25 tablet by ity of thoprim 00:00: mouth 2 [place] 800-160 mg 00 (two) Medical per tablet times Branch daily. sulfamethox 2020-0 Yes [id number] 1{tbl} Take 1 [facility] azole-trime 3-25 tablet by ity of thoprim 00:00: mouth 2 [place] 800-160 mg 00 (two) Medical per tablet times Branch daily. sulfamethox 2020-0 Yes [id number] 1{tbl} Take 1 [facility] azole-trime 3-25 tablet by ity of thoprim 00:00: mouth 2 [place] 800-160 mg 00 (two) Medical per tablet times Branch daily. sulfamethox 2020-0 Yes [id number] 1{tbl} Take 1 [facility] azole-trime 3-25 tablet by ity of thoprim 00:00: mouth 2 [place] 800-160 mg 00 (two) Medical per tablet times Branch daily. sulfamethox 2020-0 Yes [id number] 1{tbl} Take 1 [facility] azole-trime 3-25 tablet by ity of thoprim 00:00: mouth 2 [place] 800-160 mg 00 (two) Medical per tablet times Branch daily. sulfamethox 2020-0 Yes [id number] 1{tbl} Take 1 [facility] azole-trime 3-25 tablet by ity of thoprim 00:00: mouth 2 [place] 800-160 mg 00 (two) Medical per tablet times Branch daily. carvediloL 2020-0 Yes 25mg Take 25 mg [facility] n[facility] 25 mg 3-07 by mouth 2 [facility] of tablet 01:16: (two) [place] [address] times Medical daily with Branch meals. proMETHazin 2020-0 Yes 12.5mg Take 12.5 [facility] e 25 mg 3-07 mg by ity of tablet 01:16: mouth 3 [place] 39 (three) Medical times Branch daily as needed for Nausea and Vomiting (N/V). insulin 2020-0 Yes inject [facility] aspart 3-07 under the ity of U-100 01:16: skin. [place] (NOVOLOG 39 Medical FLEXPEN Branch U-100 INSULIN) 100 unit/mL (3 mL) injection carvediloL 2020-0 Yes 25mg Take 25 mg [facility] nivers 25 mg 3-07 by mouth 2 ity of tablet 01:16: (two) [place] [address] times Medical daily with Branch meals. proMETHazin 2020-0 Yes 12.5mg Take 12.5 [facility] e 25 mg 3-07 mg by ity of tablet 01:16: mouth 3 [place] 39 (three) Medical times Branch daily as needed for Nausea and Vomiting (N/V). insulin 2020-0 Yes inject [facility] aspart 3-07 under the ity of U-100 01:16: skin. [place] (NOVOLOG 39 Medical FLEXPEN Branch U-100 INSULIN) 100 unit/mL (3 mL) injection carvediloL 2020-0 Yes 25mg Take 25 mg [facility] nivers 25 mg 3-07 by mouth 2 ity of tablet 01:16: (two) [place] 39 times Medical daily with Branch meals. proMETHazin 2020-0 Yes 12.5mg Take 12.5 [facility] e 25 mg 3-07 mg by ity of tablet 01:16: mouth 3 [place] 39 (three) Medical times Branch daily as needed for Nausea and Vomiting (N/V). insulin 2020-0 Yes inject [facility] aspart 3-07 under the ity of U-100 01:16: skin. [place] (NOVOLOG 39 Medical FLEXPEN Branch U-100 INSULIN) 100 unit/mL (3 mL) injection carvediloL 2020-0 Yes 25mg Take 25 mg [facility] nivers 25 mg 3-07 by mouth 2 ity of tablet 01:16: (two) [place] 39 times Medical daily with Branch meals. proMETHazin 2020-0 Yes 12.5mg Take 12.5 [facility] e 25 mg 3-07 mg by ity of tablet 01:16: mouth 3 [place] [address] (three) Medical times Branch daily as needed for Nausea and Vomiting (N/V). insulin 2020-0 Yes inject [facility] aspart 3-07 under the ity of U-100 01:16: skin. [place] (NOVOLOG 39 Medical FLEXPEN Branch U-100 INSULIN) 100 unit/mL (3 mL) injection carvediloL 2020-0 Yes 25mg Take 25 mg [facility] nivers 25 mg 3-07 by mouth 2 ity of tablet 01:16: (two) [place] 39 times Medical daily with Branch meals. proMETHazin 2020-0 Yes 12.5mg Take 12.5 [facility] e 25 mg 3-07 mg by ity of tablet 01:16: mouth 3 [place] [address] (three) Medical times Branch daily as needed for Nausea and Vomiting (N/V). insulin 2020-0 Yes inject [facility] aspart 3-07 under the ity of U-100 01:16: skin. [place] (NOVOLOG 39 Medical FLEXPEN Branch U-100 INSULIN) 100 unit/mL (3 mL) injection carvediloL 2020-0 Yes 25mg Take 25 mg [facility] nivers 25 mg 3-07 by mouth 2 ity of tablet 01:16: (two) [place] 39 times Medical daily with Branch meals. proMETHazin 2020-0 Yes 12.5mg Take 12.5 [facility] e 25 mg 3-07 mg by ity of tablet 01:16: mouth 3 [place] [address] (three) Medical times Branch daily as needed for Nausea and Vomiting (N/V). insulin 2020-0 Yes inject [facility] aspart 3-07 under the ity of U-100 01:16: skin. [place] (NOVOLOG 39 Medical FLEXPEN Branch U-100 INSULIN) 100 unit/mL (3 mL) injection carvediloL 2020-0 Yes 25mg Take 25 mg [facility] nivers 25 mg 3-07 by mouth 2 ity of tablet 01:16: (two) [place] [address] times Medical daily with Branch meals. proMETHazin 2020-0 Yes 12.5mg Take 12.5 [facility] e 25 mg 3-07 mg by ity of tablet 01:16: mouth 3 [place] [address] (three) Medical times Branch daily as needed for Nausea and Vomiting (N/V). insulin 2020-0 Yes inject [facility] aspart 3-07 under the ity of U-100 01:16: skin. [place] (NOVOLOG 39 Medical FLEXPEN Branch U-100 INSULIN) 100 unit/mL (3 mL) injection carvediloL 2020-0 Yes 25mg Take 25 mg [facility] nivers 25 mg 3-07 by mouth 2 ity of tablet 01:16: (two) [place] [address] times Medical daily with Branch meals. proMETHazin 2020-0 Yes 12.5mg Take 12.5 [facility] e 25 mg 3-07 mg by ity of tablet 01:16: mouth 3 [place] [address] (three) Medical times Branch daily as needed for Nausea and Vomiting (N/V). insulin 2020-0 Yes inject [facility] aspart 3-07 under the ity of U-100 01:16: skin. [place] (NOVOLOG 39 Medical FLEXPEN Branch U-100 INSULIN) 100 unit/mL (3 mL) injection carvediloL 2020-0 Yes 25mg Take 25 mg [facility] nivers 25 mg 3-07 by mouth 2 ity of tablet 01:16: (two) [place] [address] times Medical daily with Branch meals. proMETHazin 2020-0 Yes 12.5mg Take 12.5 [facility] e 25 mg 3-07 mg by ity of tablet 01:16: mouth 3 [place] [address] (three) Medical times Branch daily as needed for Nausea and Vomiting (N/V). insulin 2020-0 Yes inject [facility] aspart 3-07 under the ity of U-100 01:16: skin. [place] (NOVOLOG 39 Medical FLEXPEN Branch U-100 INSULIN) 100 unit/mL (3 mL) injection carvediloL 2020-0 Yes 25mg Take 25 mg [facility] nivers 25 mg 3-07 by mouth 2 ity of tablet 01:16: (two) [place] 39 times Medical daily with Branch meals. proMETHazin 2020-0 Yes 12.5mg Take 12.5 [facility] e 25 mg 3-07 mg by ity of tablet 01:16: mouth 3 [place] 39 (three) Medical times Branch daily as needed for Nausea and Vomiting (N/V). insulin 2020-0 Yes inject [facility] aspart 3-07 under the ity of U-100 01:16: skin. [place] (NOVOLOG 39 Medical FLEXPEN Branch U-100 INSULIN) 100 unit/mL (3 mL) injection carvediloL 2020-0 Yes 25mg Take 25 mg [facility] nivers 25 mg 3-07 by mouth 2 ity of tablet 01:16: (two) [place] 39 times Medical daily with Branch meals. proMETHazin 2020-0 Yes 12.5mg Take 12.5 [facility] e 25 mg 3-07 mg by ity of tablet 01:16: mouth 3 [place] 39 (three) Medical times Branch daily as needed for Nausea and Vomiting (N/V). insulin 2020-0 Yes inject [facility] aspart 3-07 under the ity of U-100 01:16: skin. [place] (NOVOLOG 39 Medical FLEXPEN Branch U-100 INSULIN) 100 unit/mL (3 mL) injection carvediloL 2020-0 Yes 25mg Take 25 mg [facility] nivers 25 mg 3-07 by mouth 2 ity of tablet 01:16: (two) [place] 39 times Medical daily with Branch meals. proMETHazin 2020-0 Yes 12.5mg Take 12.5 [facility] e 25 mg 3-07 mg by ity of tablet 01:16: mouth 3 [place] 39 (three) Medical times Branch daily as needed for Nausea and Vomiting (N/V). insulin 2020-0 Yes inject [facility] aspart 3-07 under the ity of U-100 01:16: skin. [place] (NOVOLOG 39 Medical FLEXPEN Branch U-100 INSULIN) 100 unit/mL (3 mL) injection carvediloL 2020-0 Yes 25mg Take 25 mg [facility] nivers 25 mg 3-07 by mouth 2 ity of tablet 01:16: (two) [place] 39 times Medical daily with Branch meals. proMETHazin 2020-0 Yes 12.5mg Take 12.5 [facility] e 25 mg 3-07 mg by ity of tablet 01:16: mouth 3 [place] 39 (three) Medical times Branch daily as needed for Nausea and Vomiting (N/V). insulin 2020-0 Yes inject [facility] aspart 3-07 under the ity of U-100 01:16: skin. [place] (NOVOLOG 39 Medical FLEXPEN Branch U-100 INSULIN) 100 unit/mL (3 mL) injection carvediloL 2020-0 Yes 25mg Take 25 mg [facility] nivers 25 mg 3-07 by mouth 2 ity of tablet 01:16: (two) [place] 39 times Medical daily with Branch meals. proMETHazin 2020-0 Yes 12.5mg Take 12.5 [facility] e 25 mg 3-07 mg by ity of tablet 01:16: mouth 3 [place] [address] (three) Medical times Branch daily as needed for Nausea and Vomiting (N/V). insulin 2020-0 Yes inject [facility] aspart 3-07 under the ity of U-100 01:16: skin. [place] (NOVOLOG 39 Medical FLEXPEN Branch U-100 INSULIN) 100 unit/mL (3 mL) injection carvediloL 2020-0 Yes 25mg Take 25 mg [facility] nivers 25 mg 3-07 by mouth 2 ity of tablet 01:16: (two) [place] 39 times Medical daily with Branch meals. proMETHazin 2020-0 Yes 12.5mg Take 12.5 [facility] e 25 mg 3-07 mg by ity of tablet 01:16: mouth 3 [place] 39 (three) Medical times Branch daily as needed for Nausea and Vomiting (N/V). insulin 2020-0 Yes inject [facility] aspart 3-07 under the ity of U-100 01:16: skin. [place] (NOVOLOG 39 Medical FLEXPEN Branch U-100 INSULIN) 100 unit/mL (3 mL) injection carvediloL 2020-0 Yes 25mg Take 25 mg [facility] nivers 25 mg 3-07 by mouth 2 ity of tablet 01:16: (two) [place] 39 times Medical daily with Branch meals. proMETHazin 2020-0 Yes 12.5mg Take 12.5 [facility] e 25 mg 3-07 mg by ity of tablet 01:16: mouth 3 [place] 39 (three) Medical times Branch daily as needed for Nausea and Vomiting (N/V). insulin 2020-0 Yes inject [facility] aspart 3-07 under the ity of U-100 01:16: skin. [place] (NOVOLOG 39 Medical FLEXPEN Branch U-100 INSULIN) 100 unit/mL (3 mL) injection carvediloL 2020-0 Yes 25mg Take 25 mg [facility] nivers 25 mg 3-07 by mouth 2 ity of tablet 01:16: (two) [place] 39 times Medical daily with Branch meals. proMETHazin 2020-0 Yes 12.5mg Take 12.5 [facility] e 25 mg 3-07 mg by ity of tablet 01:16: mouth 3 [place] 39 (three) Medical times Branch daily as needed for Nausea and Vomiting (N/V). insulin 2020-0 Yes inject [facility] aspart 3-07 under the ity of U-100 01:16: skin. [place] (NOVOLOG 39 Medical FLEXPEN Branch U-100 INSULIN) 100 unit/mL (3 mL) injection carvediloL 2020-0 Yes 25mg Take 25 mg [facility] nivers 25 mg 3-07 by mouth 2 ity of tablet 01:16: (two) [place] 39 times Medical daily with Branch meals. proMETHazin 2020-0 Yes 12.5mg Take 12.5 [facility] e 25 mg 3-07 mg by ity of tablet 01:16: mouth 3 [place] [address] (three) Medical times Branch daily as needed for Nausea and Vomiting (N/V). insulin 2020-0 Yes inject [facility] aspart 3-07 under the ity of U-100 01:16: skin. [place] (NOVOLOG 39 Medical FLEXPEN Branch U-100 INSULIN) 100 unit/mL (3 mL) injection carvediloL 2020-0 Yes 25mg Take 25 mg [facility] nivers 25 mg 3-07 by mouth 2 ity of tablet 01:16: (two) [place] 39 times Medical daily with Branch meals. proMETHazin 2020-0 Yes 12.5mg Take 12.5 [facility] e 25 mg 3-07 mg by ity of tablet 01:16: mouth 3 [place] [address] (three) Medical times Branch daily as needed for Nausea and Vomiting (N/V). insulin 2020-0 Yes inject [facility] aspart 3-07 under the ity of U-100 01:16: skin. [place] (NOVOLOG 39 Medical FLEXPEN Branch U-100 INSULIN) 100 unit/mL (3 mL) injection carvediloL 2020-0 Yes 25mg Take 25 mg [facility] nivers 25 mg 3-07 by mouth 2 ity of tablet 01:16: (two) [place] 39 times Medical daily with Branch meals. proMETHazin 2020-0 Yes 12.5mg Take 12.5 [facility] e 25 mg 3-07 mg by ity of tablet 01:16: mouth 3 [place] 39 (three) Medical times Branch daily as needed for Nausea and Vomiting (N/V). insulin 2020-0 Yes inject [facility] aspart 3-07 under the ity of U-100 01:16: skin. [place] (NOVOLOG 39 Medical FLEXPEN Branch U-100 INSULIN) 100 unit/mL (3 mL) injection carvediloL 2020-0 Yes 25mg Take 25 mg [facility] nivers 25 mg 3-07 by mouth 2 ity of tablet 01:16: (two) [place] 39 times Medical daily with Branch meals. proMETHazin 2020-0 Yes 12.5mg Take 12.5 [facility] e 25 mg 3-07 mg by ity of tablet 01:16: mouth 3 [place] [address] (three) Medical times Branch daily as needed for Nausea and Vomiting (N/V). insulin 2020-0 Yes inject [facility] aspart 3-07 under the ity of U-100 01:16: skin. [place] (NOVOLOG 39 Medical FLEXPEN Branch U-100 INSULIN) 100 unit/mL (3 mL) injection carvediloL 2020-0 Yes 25mg Take 25 mg [facility] nivers 25 mg 3-07 by mouth 2 ity of tablet 01:16: (two) [place] 39 times Medical daily with Branch meals. proMETHazin 2020-0 Yes 12.5mg Take 12.5 [facility] e 25 mg 3-07 mg by ity of tablet 01:16: mouth 3 [place] [address] (three) Medical times Branch daily as needed for Nausea and Vomiting (N/V). insulin 2020-0 Yes inject [facility] aspart 3-07 under the ity of U-100 01:16: skin. [place] (NOVOLOG 39 Medical FLEXPEN Branch U-100 INSULIN) 100 unit/mL (3 mL) injection carvediloL 2020-0 Yes 25mg Take 25 mg [facility] nivers 25 mg 3-07 by mouth 2 ity of tablet 01:16: (two) [place] 39 times Medical daily with Branch meals. proMETHazin 2020-0 Yes 12.5mg Take 12.5 [facility] e 25 mg 3-07 mg by ity of tablet 01:16: mouth 3 [place] 39 (three) Medical times Branch daily as needed for Nausea and Vomiting (N/V). insulin 2020-0 Yes inject [facility] aspart 3-07 under the ity of U-100 01:16: skin. [place] (NOVOLOG 39 Medical FLEXPEN Branch U-100 INSULIN) 100 unit/mL (3 mL) injection carvediloL 2020-0 Yes 25mg Take 25 mg [facility] nivers 25 mg 3-07 by mouth 2 ity of tablet 01:16: (two) [place] 39 times Medical daily with Branch meals. proMETHazin 2020-0 Yes 12.5mg Take 12.5 [facility] e 25 mg 3-07 mg by ity of tablet 01:16: mouth 3 [place] [address] (three) Medical times Branch daily as needed for Nausea and Vomiting (N/V). insulin 2020-0 Yes inject [facility] aspart 3-07 under the ity of U-100 01:16: skin. [place] (NOVOLOG 39 Medical FLEXPEN Branch U-100 INSULIN) 100 unit/mL (3 mL) injection carvediloL 2020-0 Yes 25mg Take 25 mg [facility] nivers 25 mg 3-07 by mouth 2 ity of tablet 01:16: (two) [place] 39 times Medical daily with Branch meals. proMETHazin 2020-0 Yes 12.5mg Take 12.5 [facility] e 25 mg 3-07 mg by ity of tablet 01:16: mouth 3 [place] [address] (three) Medical times Branch daily as needed for Nausea and Vomiting (N/V). insulin 2020-0 Yes inject [facility] aspart 3-07 under the ity of U-100 01:16: skin. [place] (NOVOLOG 39 Medical FLEXPEN Branch U-100 INSULIN) 100 unit/mL (3 mL) injection carvediloL 2020-0 Yes 25mg Take 25 mg [facility] nivers 25 mg 3-07 by mouth 2 ity of tablet 01:16: (two) [place] 39 times Medical daily with Branch meals. proMETHazin 2020-0 Yes 12.5mg Take 12.5 [facility] e 25 mg 3-07 mg by ity of tablet 01:16: mouth 3 [place] [address] (three) Medical times Branch daily as needed for Nausea and Vomiting (N/V). insulin 2020-0 Yes inject [facility] aspart 3-07 under the ity of U-100 01:16: skin. [place] (NOVOLOG 39 Medical FLEXPEN Branch U-100 INSULIN) 100 unit/mL (3 mL) injection carvediloL 2020-0 Yes 25mg Take 25 mg [facility] nivers 25 mg 3-07 by mouth 2 ity of tablet 01:16: (two) [place] 39 times Medical daily with Branch meals. proMETHazin 2020-0 Yes 12.5mg Take 12.5 [facility] e 25 mg 3-07 mg by ity of tablet 01:16: mouth 3 [place] 39 (three) Medical times Branch daily as needed for Nausea and Vomiting (N/V). insulin 2020-0 Yes inject [facility] aspart 3-07 under the ity of U-100 01:16: skin. [place] (NOVOLOG 39 Medical FLEXPEN Branch U-100 INSULIN) 100 unit/mL (3 mL) injection carvediloL 2020-0 Yes 25mg Take 25 mg [facility] nivers 25 mg 3-07 by mouth 2 ity of tablet 01:16: (two) [place] 39 times Medical daily with Branch meals. proMETHazin 2020-0 Yes 12.5mg Take 12.5 [facility] e 25 mg 3-07 mg by ity of tablet 01:16: mouth 3 [place] 39 (three) Medical times Branch daily as needed for Nausea and Vomiting (N/V). insulin 2020-0 Yes inject [facility] aspart 3-07 under the ity of U-100 01:16: skin. [place] (NOVOLOG 39 Medical FLEXPEN Branch U-100 INSULIN) 100 unit/mL (3 mL) injection carvediloL 2020-0 Yes 25mg Take 25 mg [facility] nivers 25 mg 3-07 by mouth 2 ity of tablet 01:16: (two) [place] 39 times Medical daily with Branch meals. proMETHazin 2020-0 Yes 12.5mg Take 12.5 [facility] e 25 mg 3-07 mg by ity of tablet 01:16: mouth 3 [place] 39 (three) Medical times Branch daily as needed for Nausea and Vomiting (N/V). insulin 2020-0 Yes inject [facility] aspart 3-07 under the ity of U-100 01:16: skin. [place] (NOVOLOG 39 Medical FLEXPEN Branch U-100 INSULIN) 100 unit/mL (3 mL) injection carvediloL 2020-0 Yes 25mg Take 25 mg [facility] nivers 25 mg 3-07 by mouth 2 ity of tablet 01:16: (two) [place] 39 times Medical daily with Branch meals. proMETHazin 2020-0 Yes 12.5mg Take 12.5 [facility] e 25 mg 3-07 mg by ity of tablet 01:16: mouth 3 [place] 39 (three) Medical times Branch daily as needed for Nausea and Vomiting (N/V). insulin 2020-0 Yes inject [facility] aspart 3-07 under the ity of U-100 01:16: skin. [place] (NOVOLOG 39 Medical FLEXPEN Branch U-100 INSULIN) 100 unit/mL (3 mL) injection carvediloL 2020-0 Yes 25mg Take 25 mg U nivers 25 mg 3-07 by mouth 2 ity of tablet 01:16: (two) [place] 39 times Medical daily with Branch meals. proMETHazin 2020-0 Yes 12.5mg Take 12.5 [facility] e 25 mg 3-07 mg by ity of tablet 01:16: mouth 3 [place] 39 (three) Medical times Branch daily as needed for Nausea and Vomiting (N/V). insulin 2020-0 Yes inject [facility] aspart 3-07 under the ity of U-100 01:16: skin. [place] (NOVOLOG 39 Medical FLEXPEN Branch U-100 INSULIN) 100 unit/mL (3 mL) injection carvediloL 2020-0 Yes 25mg Take 25 mg [facility] nivers 25 mg 3-07 by mouth 2 ity of tablet 01:16: (two) [place] 39 times Medical daily with Branch meals. proMETHazin 2020-0 Yes 12.5mg Take 12.5 [facility] e 25 mg 3-07 mg by ity of tablet 01:16: mouth 3 [place] 39 (three) Medical times Branch daily as needed for Nausea and Vomiting (N/V). insulin 2020-0 Yes inject [facility] aspart 3-07 under the ity of U-100 01:16: skin. [place] (NOVOLOG 39 Medical FLEXPEN Branch U-100 INSULIN) 100 unit/mL (3 mL) injection carvediloL 2020-0 Yes 25mg Take 25 mg U nivers 25 mg 3-07 by mouth 2 ity of tablet 01:16: (two) [place] 39 times Medical daily with Branch meals. proMETHazin 2020-0 Yes 12.5mg Take 12.5 [facility] e 25 mg 3-07 mg by ity of tablet 01:16: mouth 3 [place] 39 (three) Medical times Branch daily as needed for Nausea and Vomiting (N/V). insulin 2020-0 Yes inject [facility] aspart 3-07 under the ity of U-100 01:16: skin. [place] (NOVOLOG 39 Medical FLEXPEN Branch U-100 INSULIN) 100 unit/mL (3 mL) injection carvediloL 2020-0 Yes 25mg Take 25 mg U nivers 25 mg 3-07 by mouth 2 ity of tablet 01:16: (two) [place] 39 times Medical daily with Branch meals. proMETHazin 2020-0 Yes 12.5mg Take 12.5 [facility] e 25 mg 3-07 mg by ity of tablet 01:16: mouth 3 [place] 39 (three) Medical times Branch daily as needed for Nausea and Vomiting (N/V). insulin 2020-0 Yes inject [facility] aspart 3-07 under the ity of U-100 01:16: skin. [place] (NOVOLOG 39 Medical FLEXPEN Branch U-100 INSULIN) 100 unit/mL (3 mL) injection carvediloL 2020-0 Yes 25mg Take 25 mg [facility] nivers 25 mg 3-07 by mouth 2 ity of tablet 01:16: (two) [place] 39 times Medical daily with Branch meals. proMETHazin 2020-0 Yes 12.5mg Take 12.5 [facility] e 25 mg 3-07 mg by ity of tablet 01:16: mouth 3 [place] [address] (three) Medical times Branch daily as needed for Nausea and Vomiting (N/V). insulin 2020-0 Yes inject [facility] aspart 3-07 under the ity of U-100 01:16: skin. [place] (NOVOLOG 39 Medical FLEXPEN Branch U-100 INSULIN) 100 unit/mL (3 mL) injection carvediloL 2020-0 Yes 25mg Take 25 mg [facility] nivers 25 mg 3-07 by mouth 2 ity of tablet 01:16: (two) [place] 39 times Medical daily with Branch meals. proMETHazin 2020-0 Yes 12.5mg Take 12.5 [facility] e 25 mg 3-07 mg by ity of tablet 01:16: mouth 3 [place] [address] (three) Medical times Branch daily as needed for Nausea and Vomiting (N/V). insulin 2020-0 Yes inject [facility] aspart 3-07 under the ity of U-100 01:16: skin. [place] (NOVOLOG 39 Medical FLEXPEN Branch U-100 INSULIN) 100 unit/mL (3 mL) injection carvediloL 2020-0 Yes 25mg Take 25 mg [facility] nivers 25 mg 3-07 by mouth 2 ity of tablet 01:16: (two) [place] 39 times Medical daily with Branch meals. proMETHazin 2020-0 Yes 12.5mg Take 12.5 [facility] e 25 mg 3-07 mg by ity of tablet 01:16: mouth 3 [place] 39 (three) Medical times Branch daily as needed for Nausea and Vomiting (N/V). insulin 2020-0 Yes inject [facility] aspart 3-07 under the ity of U-100 01:16: skin. [place] (NOVOLOG 39 Medical FLEXPEN Branch U-100 INSULIN) 100 unit/mL (3 mL) injection carvediloL 2020-0 Yes 25mg Take 25 mg U nivers 25 mg 3-07 by mouth 2 ity of tablet 01:16: (two) [place] 39 times Medical daily with Branch meals. proMETHazin 2020-0 Yes 12.5mg Take 12.5 [facility] e 25 mg 3-07 mg by ity of tablet 01:16: mouth 3 [place] [address] (three) Medical times Branch daily as needed for Nausea and Vomiting (N/V). insulin 2020-0 Yes inject [facility] aspart 3-07 under the ity of U-100 01:16: skin. [place] (NOVOLOG 39 Medical FLEXPEN Branch U-100 INSULIN) 100 unit/mL (3 mL) injection carvediloL 2020-0 Yes 25mg Take 25 mg [facility] nivers 25 mg 3-07 by mouth 2 ity of tablet 01:16: (two) [place] 39 times Medical daily with Branch meals. proMETHazin 2020-0 Yes 12.5mg Take 12.5 [facility] e 25 mg 3-07 mg by ity of tablet 01:16: mouth 3 [place] [address] (three) Medical times Branch daily as needed for Nausea and Vomiting (N/V). insulin 2020-0 Yes inject [facility] aspart 3-07 under the ity of U-100 01:16: skin. [place] (NOVOLOG 39 Medical FLEXPEN Branch U-100 INSULIN) 100 unit/mL (3 mL) injection carvediloL 2020-0 Yes 25mg Take 25 mg U nivers 25 mg 3-07 by mouth 2 ity of tablet 01:16: (two) [place] 39 times Medical daily with Branch meals. proMETHazin 2020-0 Yes 12.5mg Take 12.5 [facility] e 25 mg 3-07 mg by ity of tablet 01:16: mouth 3 [place] 39 (three) Medical times Branch daily as needed for Nausea and Vomiting (N/V). insulin 2020-0 Yes inject [facility] aspart 3-07 under the ity of U-100 01:16: skin. [place] (NOVOLOG 39 Medical FLEXPEN Branch U-100 INSULIN) 100 unit/mL (3 mL) injection carvediloL 2020-0 Yes 25mg Take 25 mg [facility] nivers 25 mg 3-07 by mouth 2 ity of tablet 01:16: (two) [place] 39 times Medical daily with Branch meals. proMETHazin 2020-0 Yes 12.5mg Take 12.5 [facility] e 25 mg 3-07 mg by ity of tablet 01:16: mouth 3 [place] [address] (three) Medical times Branch daily as needed for Nausea and Vomiting (N/V). insulin 2020-0 Yes inject [facility] aspart 3-07 under the ity of U-100 01:16: skin. [place] (NOVOLOG 39 Medical FLEXPEN Branch U-100 INSULIN) 100 unit/mL (3 mL) injection carvediloL 2020-0 Yes 25mg Take 25 mg [facility] nivers 25 mg 3-07 by mouth 2 ity of tablet 01:16: (two) [place] 39 times Medical daily with Branch meals. proMETHazin 2020-0 Yes 12.5mg Take 12.5 [facility] e 25 mg 3-07 mg by ity of tablet 01:16: mouth 3 [place] [address] (three) Medical times Branch daily as needed for Nausea and Vomiting (N/V). insulin 2020-0 Yes inject [facility] aspart 3-07 under the ity of U-100 01:16: skin. [place] (NOVOLOG 39 Medical FLEXPEN Branch U-100 INSULIN) 100 unit/mL (3 mL) injection carvediloL 2020-0 Yes 25mg Take 25 mg [facility] nivers 25 mg 3-07 by mouth 2 ity of tablet 01:16: (two) [place] 39 times Medical daily with Branch meals. proMETHazin 2020-0 Yes 12.5mg Take 12.5 [facility] e 25 mg 3-07 mg by ity of tablet 01:16: mouth 3 [place] 39 (three) Medical times Branch daily as needed for Nausea and Vomiting (N/V). insulin 2020-0 Yes inject [facility] aspart 3-07 under the ity of U-100 01:16: skin. [place] (NOVOLOG 39 Medical FLEXPEN Branch U-100 INSULIN) 100 unit/mL (3 mL) injection carvediloL 2020-0 Yes 25mg Take 25 mg [facility] nivers 25 mg 3-07 by mouth 2 ity of tablet 01:16: (two) [place] 39 times Medical daily with Branch meals. proMETHazin 2020-0 Yes 12.5mg Take 12.5 [facility] e 25 mg 3-07 mg by ity of tablet 01:16: mouth 3 [place] 39 (three) Medical times Branch daily as needed for Nausea and Vomiting (N/V). insulin 2020-0 Yes inject [facility] aspart 3-07 under the ity of U-100 01:16: skin. [place] (NOVOLOG 39 Medical FLEXPEN Branch U-100 INSULIN) 100 unit/mL (3 mL) injection carvediloL 2020-0 Yes 25mg Take 25 mg [facility] nivers 25 mg 3-07 by mouth 2 ity of tablet 01:16: (two) [place] 39 times Medical daily with Branch meals. proMETHazin 2020-0 Yes 12.5mg Take 12.5 [facility] e 25 mg 3-07 mg by ity of tablet 01:16: mouth 3 [place] 39 (three) Medical times Branch daily as needed for Nausea and Vomiting (N/V). insulin 2020-0 Yes inject [facility] aspart 3-07 under the ity of U-100 01:16: skin. [place] (NOVOLOG 39 Medical FLEXPEN Branch U-100 INSULIN) 100 unit/mL (3 mL) injection carvediloL 2020-0 Yes 25mg Take 25 mg [facility] nivers 25 mg 3-07 by mouth 2 ity of tablet 01:16: (two) [place] 39 times Medical daily with Branch meals. proMETHazin 2020-0 Yes 12.5mg Take 12.5 [facility] e 25 mg 3-07 mg by ity of tablet 01:16: mouth 3 [place] 39 (three) Medical times Branch daily as needed for Nausea and Vomiting (N/V). insulin 2020-0 Yes inject [facility] aspart 3-07 under the ity of U-100 01:16: skin. [place] (NOVOLOG 39 Medical FLEXPEN Branch U-100 INSULIN) 100 unit/mL (3 mL) injection carvediloL 2020-0 Yes 25mg Take 25 mg [facility] nivers 25 mg 3-07 by mouth 2 ity of tablet 01:16: (two) [place] 39 times Medical daily with Branch meals. proMETHazin 2020-0 Yes 12.5mg Take 12.5 [facility] e 25 mg 3-07 mg by ity of tablet 01:16: mouth 3 [place] 39 (three) Medical times Branch daily as needed for Nausea and Vomiting (N/V). insulin 2020-0 Yes inject [facility] aspart 3-07 under the ity of U-100 01:16: skin. [place] (NOVOLOG 39 Medical FLEXPEN Branch U-100 INSULIN) 100 unit/mL (3 mL) injection carvediloL 2020-0 Yes 25mg Take 25 mg U nivers 25 mg 3-07 by mouth 2 ity of tablet 01:16: (two) [place] 39 times Medical daily with Branch meals. proMETHazin 2020-0 Yes 12.5mg Take 12.5 [facility] e 25 mg 3-07 mg by ity of tablet 01:16: mouth 3 [place] 39 (three) Medical times Branch daily as needed for Nausea and Vomiting (N/V). insulin 2020-0 Yes inject [facility] aspart 3-07 under the ity of U-100 01:16: skin. [place] (NOVOLOG 39 Medical FLEXPEN Branch U-100 INSULIN) 100 unit/mL (3 mL) injection carvediloL 2020-0 Yes 25mg Take 25 mg U nivers 25 mg 3-07 by mouth 2 ity of tablet 01:16: (two) [place] 39 times Medical daily with Branch meals. proMETHazin 2020-0 Yes 12.5mg Take 12.5 [facility] e 25 mg 3-07 mg by ity of tablet 01:16: mouth 3 [place] 39 (three) Medical times Branch daily as needed for Nausea and Vomiting (N/V). insulin 2020-0 Yes inject [facility] aspart 3-07 under the ity of U-100 01:16: skin. [place] (NOVOLOG 39 Medical FLEXPEN Branch U-100 INSULIN) 100 unit/mL (3 mL) injection carvediloL 2020-0 Yes 25mg Take 25 mg U nivers 25 mg 3-07 by mouth 2 ity of tablet 01:16: (two) [place] 39 times Medical daily with Branch meals. proMETHazin 2020-0 Yes 12.5mg Take 12.5 [facility] e 25 mg 3-07 mg by ity of tablet 01:16: mouth 3 [place] 39 (three) Medical times Branch daily as needed for Nausea and Vomiting (N/V). insulin 2020-0 Yes inject [facility] aspart 3-07 under the ity of U-100 01:16: skin. [place] (NOVOLOG 39 Medical FLEXPEN Branch U-100 INSULIN) 100 unit/mL (3 mL) injection carvediloL 2020-0 Yes 25mg Take 25 mg [facility] nivers 25 mg 3-07 by mouth 2 ity of tablet 01:16: (two) [place] 39 times Medical daily with Branch meals. proMETHazin 2020-0 Yes 12.5mg Take 12.5 [facility] e 25 mg 3-07 mg by ity of tablet 01:16: mouth 3 [place] 39 (three) Medical times Branch daily as needed for Nausea and Vomiting (N/V). insulin 2020-0 Yes inject [facility] aspart 3-07 under the ity of U-100 01:16: skin. [place] (NOVOLOG 39 Medical FLEXPEN Branch U-100 INSULIN) 100 unit/mL (3 mL) injection carvediloL 2020-0 Yes 25mg Take 25 mg U nivers 25 mg 3-07 by mouth 2 ity of tablet 01:16: (two) [place] 39 times Medical daily with Branch meals. proMETHazin 2020-0 Yes 12.5mg Take 12.5 [facility] e 25 mg 3-07 mg by ity of tablet 01:16: mouth 3 [place] 39 (three) Medical times Branch daily as needed for Nausea and Vomiting (N/V). insulin 2020-0 Yes inject [facility] aspart 3-07 under the ity of U-100 01:16: skin. [place] (NOVOLOG 39 Medical FLEXPEN Branch U-100 INSULIN) 100 unit/mL (3 mL) injection carvediloL 2020-0 Yes 25mg Take 25 mg U nivers 25 mg 3-07 by mouth 2 ity of tablet 01:16: (two) [place] 39 times Medical daily with Branch meals. proMETHazin 2020-0 Yes 12.5mg Take 12.5 [facility] e 25 mg 3-07 mg by ity of tablet 01:16: mouth 3 [place] [address] (three) Medical times Branch daily as needed for Nausea and Vomiting (N/V). insulin 2020-0 Yes inject [facility] aspart 3-07 under the ity of U-100 01:16: skin. [place] (NOVOLOG 39 Medical FLEXPEN Branch U-100 INSULIN) [...] mg by ity of capsule 00:22: mouth. [place] 08 Medical Branch acetaminoph 2020-0 Yes 500mg [...] 3-07 by mouth. ity of tablet 00:22: [place] 08 Medical Branch proMETHazin 2020-0 Yes 12.5mg Take 12.5 [facility] e 25 mg 3-07 mg by ity of tablet 00:22: mouth [place] [id number] every 6 Medical (six) Branch hours as needed for Nausea and Vomiting (N/V). insulin 2020-0 Yes inject [facility] aspart 3-07 under the ity of U-100 00:22: skin. [place] (NOVOLOG 08 Medical FLEXPEN Branch U-100 INSULIN) [...] the ity of unit/mL (3 00:22: skin. [place] mL) 08 Medical injection Branch Insulin 2020-0 [...] by ity of capsule 00:13: mouth 2 [place] 40 (two) Medical times Branch daily. gabapentin 2020-0 Yes 100mg Take 100 Un osbaldo 100 mg 3-07 mg by ity of capsule 00:13: mouth 2 [place] 40 (two) Medical times Branch daily. gabapentin 2020-0 Yes 100mg Take 100 Un osbaldo 100 mg 3-07 mg by ity of capsule 00:13: mouth 2 [place] 40 (two) Medical times Branch daily. gabapentin 2020-0 Yes 100mg Take 100 Un osbaldo 100 mg 3-07 mg by ity of capsule 00:13: mouth 2 [place] 40 (two) Medical times Branch daily. gabapentin 2020-0 Yes 100mg Take 100 Un osbaldo 100 mg 3-07 mg by ity of capsule 00:13: mouth [address] [place] [address] 40 (two) Medical times Branch daily. gabapentin 2020-0 Yes 100mg Take 100 Un osbaldo 100 mg 3-07 mg by ity of capsule 00:13: mouth [address] [place] [address] 40 (two) Medical times Branch daily. gabapentin 2020-0 Yes 100mg Take 100 Un osbaldo 100 mg 3-07 mg by ity of capsule 00:13: mouth [address] [place] [address] 40 (two) Medical times Branch daily. gabapentin 2020-0 Yes 100mg Take 100 Un osbaldo 100 mg 3-07 mg by ity of capsule 00:13: mouth [address] [place] [address] 40 (two) Medical times Branch daily. gabapentin 2020-0 Yes 100mg Take 100 Un osbaldo 100 mg 3-07 mg by ity of capsule 00:13: mouth [address] [place] [address] 40 (two) Medical times Branch daily. gabapentin 2020-0 Yes 100mg Take 100 Un osbaldo 100 mg 3-07 mg by ity of capsule 00:13: mouth 2 [place] 40 (two) Medical times Branch daily. gabapentin 2020-0 Yes 100mg Take 100 Un osbaldo 100 mg 3-07 mg by ity of capsule 00:13: mouth [address] [place] [address] 40 (two) Medical times Branch daily. gabapentin 2020-0 Yes 100mg Take 100 Un osbaldo 100 mg 3-07 mg by ity of capsule 00:13: mouth 2 [place] 40 (two) Medical times Branch daily. gabapentin 2020-0 Yes 100mg Take 100 Un osbaldo 100 mg 3-07 mg by ity of capsule 00:13: mouth 2 [place] 40 (two) Medical times Branch daily. gabapentin 2020-0 Yes 100mg Take 100 Un osbaldo 100 mg 3-07 mg by ity of capsule 00:13: mouth 2 [place] 40 (two) Medical times Branch daily. gabapentin 2020-0 Yes 100mg Take 100 Un osbaldo 100 mg 3-07 mg by ity of capsule 00:13: mouth 2 [place] 40 (two) Medical times Branch daily. gabapentin 2020-0 Yes 100mg Take 100 Un osbaldo 100 mg 3-07 mg by ity of capsule 00:13: mouth 2 [place] 40 (two) Medical times Branch daily. gabapentin 2020-0 Yes 100mg Take 100 Un osbaldo 100 mg 3-07 mg by ity of capsule 00:13: mouth 2 [place] 40 (two) Medical times Branch daily. gabapentin 2020-0 Yes 100mg Take 100 Un osbaldo 100 mg 3-07 mg by ity of capsule 00:13: mouth 2 [place] 40 (two) Medical times Branch daily. gabapentin 2020-0 Yes 100mg Take 100 Un osbaldo 100 mg 3-07 mg by ity of capsule 00:13: mouth [address] [place] [address] 40 (two) Medical times Branch daily. gabapentin 2020-0 Yes 100mg Take 100 Un osbaldo 100 mg 3-07 mg by ity of capsule 00:13: mouth [address] [place] [address] 40 (two) Medical times Branch daily. gabapentin 2020-0 Yes 100mg Take 100 Un osbaldo 100 mg 3-07 mg by ity of capsule 00:13: mouth [address] [place] [address] 40 (two) Medical times Branch daily. gabapentin 2020-0 Yes 100mg Take 100 Un osbaldo 100 mg 3-07 mg by ity of capsule 00:13: mouth [address] [place] [address] 40 (two) Medical times Branch daily. gabapentin 2020-0 Yes 100mg Take 100 Un osbaldo 100 mg 3-07 mg by ity of capsule 00:13: mouth 2 [place] 40 (two) Medical times Branch daily. gabapentin 2020-0 Yes 100mg Take 100 Un osbaldo 100 mg 3-07 mg by ity of capsule 00:13: mouth 2 [place] 40 (two) Medical times Branch daily. gabapentin 2020-0 Yes 100mg Take 100 Un osbaldo 100 mg 3-07 mg by ity of capsule 00:13: mouth 2 [place] 40 (two) Medical times Branch daily. gabapentin 2020-0 Yes 100mg Take 100 Un osbaldo 100 mg 3-07 mg by ity of capsule 00:13: mouth 2 [place] 40 (two) Medical times Branch daily. gabapentin 2020-0 Yes 100mg Take 100 Un osbaldo 100 mg 3-07 mg by ity of capsule 00:13: mouth 2 [place] 40 (two) Medical times Branch daily. gabapentin 2020-0 Yes 100mg Take 100 Un osbaldo 100 mg 3-07 mg by ity of capsule 00:13: mouth 2 [place] 40 (two) Medical times Branch daily. gabapentin 2020-0 Yes 100mg Take 100 Un osbaldo 100 mg 3-07 mg by ity of capsule 00:13: mouth 2 [place] 40 (two) Medical times Branch daily. gabapentin 2020-0 Yes 100mg Take 100 Un osbaldo 100 mg 3-07 mg by ity of capsule 00:13: mouth 2 [place] 40 (two) Medical times Branch daily. gabapentin 2020-0 Yes 100mg Take 100 Un osbaldo 100 mg 3-07 mg by ity of capsule 00:13: mouth 2 [place] 40 (two) Medical times Branch daily. gabapentin 2020-0 Yes 100mg Take 100 Un osbaldo 100 mg 3-07 mg by ity of capsule 00:13: mouth [address] [place] [address] 40 (two) Medical times Branch daily. gabapentin 2020-0 Yes 100mg Take 100 Un osbaldo 100 mg 3-07 mg by ity of capsule 00:13: mouth 2 [place] 40 (two) Medical times Branch daily. gabapentin 2020-0 Yes 100mg Take 100 Un osbaldo 100 mg 3-07 mg by ity of capsule 00:13: mouth 2 [place] 40 (two) Medical times Branch daily. gabapentin 2020-0 Yes 100mg Take 100 Un osbaldo 100 mg 3-07 mg by ity of capsule 00:13: mouth 2 [place] 40 (two) Medical times Branch daily. gabapentin 2020-0 Yes 100mg Take 100 Un osbaldo 100 mg 3-07 mg by ity of capsule 00:13: mouth 2 [place] 40 (two) Medical times Branch daily. gabapentin 2020-0 Yes 100mg Take 100 Un osbaldo 100 mg 3-07 mg by ity of capsule 00:13: mouth 2 [place] 40 (two) Medical times Branch daily. gabapentin 2020-0 Yes 100mg Take 100 Un osbaldo 100 mg 3-07 mg by ity of capsule 00:13: mouth 2 [place] 40 (two) Medical times Branch daily. gabapentin 2020-0 Yes 100mg Take 100 Un osbaldo 100 mg 3-07 mg by ity of capsule 00:13: mouth 2 [place] 40 (two) Medical times Branch daily. gabapentin 2020-0 Yes 100mg Take 100 Un osbaldo 100 mg 3-07 mg by ity of capsule 00:13: mouth 2 [place] 40 (two) Medical times Branch daily. gabapentin 2020-0 Yes 100mg Take 100 Un osbaldo 100 mg 3-07 mg by ity of capsule 00:13: mouth 2 [place] 40 (two) Medical times Branch daily. gabapentin 2020-0 Yes 100mg Take 100 Un osbaldo 100 mg 3-07 mg by ity of capsule 00:13: mouth 2 [place] 40 (two) Medical times Branch daily. gabapentin 2020-0 Yes 100mg Take 100 Un osbaldo 100 mg 3-07 mg by ity of capsule 00:13: mouth 2 [place] 40 (two) Medical times Branch daily. gabapentin 2020-0 Yes 100mg Take 100 Un osbaldo 100 mg 3-07 mg by ity of capsule 00:13: mouth [address] [place] [address] 40 (two) Medical times Branch daily. gabapentin 2020-0 Yes 100mg Take 100 Un osbaldo 100 mg 3-07 mg by ity of capsule 00:13: mouth [address] [place] [address] 40 (two) Medical times Branch daily. gabapentin 2020-0 Yes 100mg Take 100 Un osbaldo 100 mg 3-07 mg by ity of capsule 00:13: mouth [address] [place] [address] 40 (two) Medical times Branch daily. gabapentin 2020-0 Yes 100mg Take 100 Un osbaldo 100 mg 3-07 mg by ity of capsule 00:13: mouth 2 [place] 40 (two) Medical times Branch daily. gabapentin 2020-0 Yes 100mg Take 100 Un osbaldo 100 mg 3-07 mg by ity of capsule 00:13: mouth 2 [place] 40 (two) Medical times Branch daily. gabapentin 2020-0 Yes 100mg Take 100 Un osbaldo 100 mg 3-07 mg by ity of capsule 00:13: mouth 2 [place] 40 (two) Medical times Branch daily. gabapentin 2020-0 Yes 100mg Take 100 Un os[facility]do 100 mg 3-07 mg by ity of capsule 00:13: mouth 2 [place] 40 (two) Medical times Branch daily. gabapentin 2020-0 Yes 100mg Take 100 Un osbaldo 100 mg 3-07 mg by ity of capsule 00:13: mouth 2 [place] 40 (two) Medical times Branch daily. gabapentin 2020-0 Yes 100mg Take 100 Un osbaldo 100 mg 3-07 mg by ity of capsule 00:13: mouth 2 [place] 40 (two) Medical times Branch daily. gabapentin 2020-0 Yes 100mg Take 100 Un osbaldo 100 mg 3-07 mg by ity of capsule 00:13: mouth 2 [place] 40 (two) Medical times Branch daily. hydrALAZINE 2020-0 Yes 50mg Take 50 mg [facility] 50 mg 3-07 by mouth 3 ity of tablet 00:01: (three) [place] 47 times Medical daily with Branch meals. hydrALAZINE 2020-0 Yes 50mg Take 50 mg [facility] 50 mg 3-07 by mouth 3 ity of tablet 00:01: ([facility]) [place] 47 times Medical daily with Branch meals. hydrALAZINE 2020-0 Yes 50mg Take 50 mg [facility] 50 mg 3-07 by mouth 3 ity of tablet 00:01: ([facility]) [place] 47 times Medical daily with Branch meals. hydrALAZINE 2020-0 Yes 50mg Take 50 mg [facility] 50 mg 3-07 by mouth 3 ity of tablet 00:01: ([facility]) [place] [address] times Medical daily with Branch meals. hydrALAZINE 2020-0 Yes 50mg Take 50 mg [facility] 50 mg 3-07 by mouth 3 ity of tablet 00:01: ([facility]) [place] [address] times Medical daily with Branch meals. hydrALAZINE 2020-0 Yes 50mg Take 50 mg [facility] 50 mg 3-07 by mouth 3 ity of tablet 00:01: ([facility]) [place] 47 times Medical daily with Branch meals. hydrALAZINE 2020-0 Yes 50mg Take 50 mg [facility] 50 mg 3-07 by mouth 3 ity of tablet 00:01: ([facility]) [place] 47 times Medical daily with Branch meals. hydrALAZINE 2020-0 Yes 50mg Take 50 mg [facility] 50 mg 3-07 by mouth 3 ity of tablet 00:01: ([facility]) [place] [address] times Medical daily with Branch meals. hydrALAZINE 2020-0 Yes 50mg Take 50 mg [facility] 50 mg 3-07 by mouth 3 ity of tablet 00:01: ([facility]) [place] [address] times Medical daily with Branch meals. hydrALAZINE 2020-0 Yes 50mg Take 50 mg [facility] 50 mg 3-07 by mouth 3 ity of tablet 00:01: ([facility]) [place] [address] times Medical daily with Branch meals. hydrALAZINE 2020-0 Yes 50mg Take 50 mg [facility] 50 mg 3-07 by mouth 3 ity of tablet 00:01: (three) [place] 47 times Medical daily with Branch meals. hydrALAZINE 2020-0 Yes 50mg Take 50 mg [facility] 50 mg 3-07 by mouth 3 ity of tablet 00:01: (three) [place] 47 times Medical daily with Branch meals. hydrALAZINE 2020-0 Yes 50mg Take 50 mg [facility] 50 mg 3-07 by mouth 3 ity of tablet 00:01: ([facility]) [place] 47 times Medical daily with Branch meals. hydrALAZINE 2020-0 Yes 50mg Take 50 mg [facility] 50 mg 3-07 by mouth 3 ity of tablet 00:01: ([facility]) [place] 47 times Medical daily with Branch meals. hydrALAZINE 2020-0 Yes 50mg Take 50 mg [facility] 50 mg 3-07 by mouth 3 ity of tablet 00:01: ([facility]) [place] 47 times Medical daily with Branch meals. hydrALAZINE 2020-0 Yes 50mg Take 50 mg [facility] 50 mg 3-07 by mouth 3 ity of tablet 00:01: ([facility]) [place] 47 times Medical daily with Branch meals. hydrALAZINE 2020-0 Yes 50mg Take 50 mg [facility] 50 mg 3-07 by mouth 3 ity of tablet 00:01: ([facility]) [place] 47 times Medical daily with Branch meals. hydrALAZINE 2020-0 Yes 50mg Take 50 mg [facility] 50 mg 3-07 by mouth 3 ity of tablet 00:01: ([facility]) [place] 47 times Medical daily with Branch meals. hydrALAZINE 2020-0 Yes 50mg Take 50 mg [facility] 50 mg 3-07 by mouth 3 ity of tablet 00:01: ([facility]) [place] 47 times Medical daily with Branch meals. hydrALAZINE 2020-0 Yes 50mg Take 50 mg [facility] 50 mg 3-07 by mouth 3 ity of tablet 00:01: (three) [place] 47 times Medical daily with Branch meals. hydrALAZINE 2020-0 Yes 50mg Take 50 mg [facility] 50 mg 3-07 by mouth 3 ity of tablet 00:01: ([facility]) [place] 47 times Medical daily with Branch meals. losartan-hy 2020-0 Yes Take by Un osbaldo drochloroth 3-07 mouth. ity of iazide 00:01: [place] 100-25 mg 47 Medical per tablet Branch hydrALAZINE 2020-0 Yes 50mg Take 50 mg [facility] 50 mg 3-07 by mouth 3 ity of tablet 00:01: ([facility]) [place] 47 times Medical daily with Branch meals. hydrALAZINE 2020-0 Yes 50mg Take 50 mg [facility] 50 mg 3-07 by mouth 3 ity of tablet 00:01: ([facility]) [place] 47 times Medical daily with Branch meals. hydrALAZINE 2020-0 Yes 50mg Take 50 mg [facility] 50 mg 3-07 by mouth 3 ity of tablet 00:01: ([facility]) [place] 47 times Medical daily with Branch meals. hydrALAZINE 2020-0 Yes 50mg Take 50 mg [facility] 50 mg 3-07 by mouth 3 ity of tablet 00:01: ([facility]) [place] 47 times Medical daily with Branch meals. hydrALAZINE 2020-0 Yes 50mg Take 50 mg [facility] 50 mg 3-07 by mouth 3 ity of tablet 00:01: ([facility]) [place] [address] times Medical daily with Branch meals. hydrALAZINE 2020-0 Yes 50mg Take 50 mg [facility] 50 mg 3-07 by mouth 3 ity of tablet 00:01: ([facility]) [place] [address] times Medical daily with Branch meals. hydrALAZINE 2020-0 Yes 50mg Take 50 mg [facility] 50 mg 3-07 by mouth 3 ity of tablet 00:01: ([facility]) [place] [address] times Medical daily with Branch meals. hydrALAZINE 2020-0 Yes 50mg Take 50 mg [facility] 50 mg 3-07 by mouth 3 ity of tablet 00:01: ([facility]) [place] [address] times Medical daily with Branch meals. hydrALAZINE 2020-0 Yes 50mg Take 50 mg [facility] 50 mg 3-07 by mouth 3 ity of tablet 00:01: ([facility]) [place] [address] times Medical daily with Branch meals. hydrALAZINE 2020-0 Yes 50mg Take 50 mg [facility] 50 mg 3-07 by mouth 3 ity of tablet 00:01: ([facility]) [place] [address] times Medical daily with Branch meals. hydrALAZINE 2020-0 Yes 50mg Take 50 mg [facility] 50 mg 3-07 by mouth 3 ity of tablet 00:01: ([facility]) [place] [address] times Medical daily with Branch meals. hydrALAZINE 2020-0 Yes 50mg Take 50 mg [facility] 50 mg 3-07 by mouth 3 ity of tablet 00:01: ([facility]) [place] [address] times Medical daily with Branch meals. hydrALAZINE 2020-0 Yes 50mg Take 50 mg [facility] 50 mg 3-07 by mouth 3 ity of tablet 00:01: (three) [place] 47 times Medical daily with Branch meals. hydrALAZINE 2020-0 Yes 50mg Take 50 mg [facility] 50 mg 3-07 by mouth 3 ity of tablet 00:01: (three) [place] 47 times Medical daily with Branch meals. hydrALAZINE 2020-0 Yes 50mg Take 50 mg [facility] 50 mg 3-07 by mouth 3 ity of tablet 00:01: ([facility]) [place] 47 times Medical daily with Branch meals. hydrALAZINE 2020-0 Yes 50mg Take 50 mg [facility] 50 mg 3-07 by mouth 3 ity of tablet 00:01: ([facility]) [place] 47 times Medical daily with Branch meals. hydrALAZINE 2020-0 Yes 50mg Take 50 mg [facility] 50 mg 3-07 by mouth 3 ity of tablet 00:01: ([facility]) [place] [address] times Medical daily with Branch meals. hydrALAZINE 2020-0 Yes 50mg Take 50 mg [facility] 50 mg 3-07 by mouth 3 ity of tablet 00:01: ([facility]) [place] [address] times Medical daily with Branch meals. hydrALAZINE 2020-0 Yes 50mg Take 50 mg [facility] 50 mg 3-07 by mouth 3 ity of tablet 00:01: ([facility]) [place] [address] times Medical daily with Branch meals. hydrALAZINE 2020-0 Yes 50mg Take 50 mg [facility] 50 mg 3-07 by mouth 3 ity of tablet 00:01: ([facility]) [place] 47 times Medical daily with Branch meals. hydrALAZINE 2020-0 Yes 50mg Take 50 mg [facility] 50 mg 3-07 by mouth 3 ity of tablet 00:01: (three) [place] 47 times Medical daily with Branch meals. hydrALAZINE 2020-0 Yes 50mg Take 50 mg [facility] 50 mg 3-07 by mouth 3 ity of tablet 00:01: (three) [place] 47 times Medical daily with Branch meals. hydrALAZINE 2020-0 Yes 50mg Take 50 mg [facility] 50 mg 3-07 by mouth 3 ity of tablet 00:01: (three) [place] 47 times Medical daily with Branch meals. hydrALAZINE 2020-0 Yes 50mg Take 50 mg [facility] 50 mg 3-07 by mouth 3 ity of tablet 00:01: ([facility]) [place] 47 times Medical daily with Branch meals. hydrALAZINE 2020-0 Yes 50mg Take 50 mg [facility] 50 mg 3-07 by mouth 3 ity of tablet 00:01: (three) [place] 47 times Medical daily with Branch meals. hydrALAZINE 2020-0 Yes 50mg Take 50 mg [facility] 50 mg 3-07 by mouth 3 ity of tablet 00:01: (three) [place] 47 times Medical daily with Branch meals. hydrALAZINE 2020-0 Yes 50mg Take 50 mg [facility] 50 mg 3-07 by mouth 3 ity of tablet 00:01: (three) [place] 47 times Medical daily with Branch meals. hydrALAZINE 2020-0 Yes 50mg Take 50 mg [facility] 50 mg 3-07 by mouth 3 ity of tablet 00:01: (three) [place] 47 times Medical daily with Branch meals. hydrALAZINE 2020-0 Yes 50mg Take 50 mg [facility] 50 mg 3-07 by mouth 3 ity of tablet 00:01: (three) [place] 47 times Medical daily with Branch meals. hydrALAZINE 2020-0 Yes 50mg Take 50 mg [facility] 50 mg 3-07 by mouth 3 ity of tablet 00:01: (three) [place] 47 times Medical daily with Branch meals. hydrALAZINE 2020-0 Yes 50mg Take 50 mg [facility] 50 mg 3-07 by mouth 3 ity of tablet 00:01: (three) [place] 47 times Medical daily with Branch meals. hydrALAZINE 2020-0 Yes 50mg Take 50 mg [facility] 50 mg 3-07 by mouth 3 ity of tablet 00:01: (three) [place] 47 times Medical daily with Branch meals. hydrALAZINE 2020-0 Yes 50mg Take 50 mg [facility] 50 mg 3-07 by mouth 3 ity of tablet 00:01: (three) [place] 47 times Medical daily with Branch meals. [...] by mouth. ity of tablet 15:51: 00:00 [place] 24 :00 Medical Branch aspirin-nhi 2020-0 2020- No 1{tbl} Take 1 U nivers taminophen- 3-06 03-06 tablet by it y of caffeine 15:51: 00:00 mouth [place] (EXCEDRIN 24 :00 every 6 Medical MIGRAINE) (six) Branch 250-250-65 hours as mg per needed for tablet Pain. carvedilol 2020-0 2020- No 25mg Take 25 mg [facility] 12.5 mg 3- 03-06 by mouth. ity of tablet 15:51: 00:00 [place] 24 :00 Medical Branch aspirin-nhi 2020-0 2020- No 1{tbl} Take 1 U nivers taminophen- 3-06 03-06 tablet by it y of caffeine 15:51: 00:00 mouth [place] (EXCEDRIN 24 :00 every 6 Medical MIGRAINE) (six) Branch 250-250-65 hours as mg per needed for tablet Pain. carvedilol 2020-0 2020- No 25mg Take 25 mg [facility] 12.5 mg 3-06 03-06 by mouth. ity of tablet 15:51: 00:00 [place] 24 :00 Medical Branch aspirin-nhi 2020-0 2020- No 1{tbl} Take 1 U nivers taminophen- 3-06 03-06 tablet by it y of caffeine 15:51: 00:00 mouth [place] (EXCEDRIN 24 :00 every 6 Medical MIGRAINE) [...] needed for tablet Pain. SERTraline 2020-0 Yes [id number] 25mg Take 1 U nivers 25 mg 3-06 tablet by ity of tablet 00:00: mouth [place] 00 daily. Medical Branch SERTraline 2019-0 Yes [id number] 25mg Take 1 U nivers 25 mg 3-06 tablet by ity of tablet 00:00: mouth [place] 00 daily. Medical Branch SERTraline 2019-0 Yes [id number] 25mg Take 1 U nivers 25 mg 3-06 tablet by ity of tablet 00:00: mouth [place] 00 daily. Medical Branch SERTraline 2019-0 Yes [id number] 25mg Take 1 U nivers 25 mg 3-06 tablet by ity of tablet 00:00: mouth [place] 00 daily. Medical Branch SERTraline 2020-0 Yes [id number] 25mg Take 1 U nivers 25 mg 3-06 tablet by ity of tablet 00:00: mouth [place] 00 daily. Medical Branch SERTraline 2020-0 Yes [id number] 25mg Take 1 U nivers 25 mg 3-06 tablet by ity of tablet 00:00: mouth [place] 00 daily. Medical Branch SERTraline 2020-0 Yes [id number] 25mg Take 1 U nivers 25 mg 3-06 tablet by ity of tablet 00:00: mouth [place] 00 daily. Medical Branch SERTraline 2020-0 Yes [id number] 25mg Take 1 U nivers 25 mg 3-06 tablet by ity of tablet 00:00: mouth [place] 00 daily. Medical Branch SERTraline 2020-0 Yes [id number] 25mg Take 1 U nivers 25 mg 3-06 tablet by ity of tablet 00:00: mouth [place] 00 daily. Medical Branch SERTraline 2020-0 Yes [id number] 25mg Take 1 U nivers 25 mg 3-06 tablet by ity of tablet 00:00: mouth [place] 00 daily. Medical Branch SERTraline 2020-0 Yes [id number] 25mg Take 1 U nivers 25 mg 3-06 tablet by ity of tablet 00:00: mouth [place] 00 daily. Medical Branch SERTraline 2020-0 Yes [id number] 25mg Take 1 U nivers 25 mg 3-06 tablet by ity of tablet 00:00: mouth [place] 00 daily. Medical Branch SERTraline 2020-0 Yes [id number] 25mg Take 1 U nivers 25 mg 3-06 tablet by ity of tablet 00:00: mouth [place] 00 daily. Medical Branch SERTraline 2020-0 2020- No [id number] 25mg Take 1 [facility] 25 mg 3-06 05-21 tablet by ity of tablet 00:00: 00:00 mouth [place] 00 :00 daily. Medical Branch SERTraline 2020-0 2020- No [id number] 25mg Take 1 [facility] 25 mg 3-06 05-21 tablet by ity of tablet 00:00: 00:00 mouth [place] 00 :00 daily. Medical Branch butorphanol 2020-0 Yes USE 1 Unive rs 10 mg/mL 3-05 SPRAY IN ity of nasal spray 00:00: ONE [place] NOSTRIL Medical EVERY 8 Branch HOURS NEEDED FOR HEADACHE butorphanol 2020-0 Yes USE 1 Unive rs 10 mg/mL 3-05 SPRAY IN ity of nasal spray 00:00: ONE [place] NOSTRIL Medical EVERY 8 Branch HOURS NEEDED FOR HEADACHE butorphanol 2020-0 Yes USE 1 Unive rs 10 mg/mL 3-05 SPRAY IN ity of nasal spray 00:00: [place] NOSTRIL Medical EVERY 8 Branch HOURS NEEDED FOR HEADACHE butorphanol 2020-0 Yes USE 1 Unive rs 10 mg/mL 3-05 SPRAY IN ity of nasal spray 00:00: ONE [place] NOSTRIL Medical EVERY 8 Branch HOURS NEEDED FOR HEADACHE butorphanol 2020-0 Yes USE 1 Unive rs 10 mg/mL 3-05 SPRAY IN ity of nasal spray 00:00: ONE [place] NOSTRIL Medical EVERY 8 Branch HOURS NEEDED FOR HEADACHE butorphanol 2020-0 Yes USE 1 Unive rs 10 mg/mL 3-05 SPRAY IN ity of nasal spray 00:00: ONE [place] NOSTRIL Medical EVERY 8 Branch HOURS NEEDED FOR HEADACHE butorphanol 2020-0 Yes USE 1 Unive rs 10 mg/mL 3-05 SPRAY IN ity of nasal spray 00:00: ONE [place] 00 NOSTRIL Medical EVERY 8 Branch HOURS NEEDED FOR HEADACHE butorphanol 2020-0 Yes USE 1 Unive rs 10 mg/mL 3-05 SPRAY IN ity of nasal spray 00:00: ONE [place] NOSTRIL Medical EVERY 8 Branch HOURS NEEDED FOR HEADACHE butorphanol 2020-0 Yes USE 1 Unive rs 10 mg/mL 3-05 SPRAY IN ity of nasal spray 00:00: ONE [place] NOSTRIL Medical EVERY 8 Branch HOURS NEEDED FOR HEADACHE butorphanol 2020-0 Yes USE 1 Unive rs 10 mg/mL 3-05 SPRAY IN ity of nasal spray 00:00: ONE [place] NOSTRIL Medical EVERY 8 Branch HOURS NEEDED FOR HEADACHE butorphanol 2020-0 Yes USE 1 Unive rs 10 mg/mL 3-05 SPRAY IN ity of nasal spray 00:00: ONE [place] NOSTRIL Medical EVERY 8 Branch HOURS NEEDED FOR HEADACHE butorphanol 2020-0 2020- No USE 1 Univ ers 10 mg/mL 3-05 04-01 SPRAY IN ity of nasal spray 00:00: 00:00 ONE [place] 00 :00 NOSTRIL Medical EVERY 8 Branch HOURS NEEDED FOR HEADACHE ELIQUIS 5 2020-0 Yes 5mg Take 5 mg Uni vers mg tablet 3-04 by mouth 2 ity of 00:00: (two) [place] 00 times Medical daily. Branch ELIQUIS 5 2020-0 Yes 5mg Take 5 mg Uni vers mg tablet 3-04 by mouth 2 ity of 00:00: (two) [place] 00 times Medical daily. Branch ELIQUIS 5 2020-0 Yes 5mg Take 5 mg Uni vers mg tablet 3-04 by mouth 2 ity of 00:00: (two) [place] 00 times Medical daily. Branch ELIQUIS 5 2020-0 Yes 5mg Take 5 mg [facility] vers mg tablet 3-04 by mouth 2 ity of 00:00: (two) [place] 00 times Medical daily. Branch ELIQUIS 5 2020-0 Yes 5mg Take 5 mg Uni vers mg tablet 3-04 by mouth 2 ity of 00:00: (two) [place] 00 times Medical daily. Branch ELIQUIS 5 [...] 3-01 by mouth ity of 00:00: at [place] 00 bedtime. I Medical ADVISE Branch AGAINST TAKING THIS MEDICATION DUE TO THE RISKS. [facility] zolpidem 10 2020-0 Yes 10mg Take 10 mg [facility] mg tablet 3-01 by mouth ity of 00:00: at [place] [address] bedtime. I Medical ADVISE Branch AGAINST TAKING THIS MEDICATION DUE TO THE RISKS. [facility] zolpidem 10 2020-0 Yes 10mg Take 10 mg [facility] mg tablet 3-01 by mouth ity of 00:00: at [place] [address] bedtime. I Medical ADVISE Branch AGAINST TAKING THIS MEDICATION DUE TO THE RISKS. [facility] zolpidem 10 2020-0 Yes 10mg Take 10 mg [facility] mg tablet 3-01 by mouth ity of 00:00: at [place] [address] bedtime. I Medical ADVISE Branch AGAINST TAKING THIS MEDICATION DUE TO THE RISKS. [facility] zolpidem 10 2020-0 Yes 10mg Take 10 mg [facility] mg tablet 3-01 by mouth ity of 00:00: at [place] [address] bedtime. I Medical ADVISE Branch AGAINST TAKING THIS MEDICATION DUE TO THE RISKS. [facility] zolpidem 10 2020-0 Yes 10mg Take 10 mg [facility] mg tablet 3-01 by mouth ity of 00:00: at [place] [address] bedtime. I Medical ADVISE Branch AGAINST TAKING THIS MEDICATION DUE TO THE RISKS. [facility] zolpidem 10 2020-0 Yes 10mg Take 10 mg [facility] mg tablet 3-01 by mouth ity of 00:00: at [place] [address] bedtime. I Medical ADVISE Branch AGAINST TAKING THIS MEDICATION DUE TO THE RISKS. [facility] zolpidem 10 2020-0 Yes 10mg Take 10 mg [facility] mg tablet 3-01 by mouth ity of 00:00: at [place] [address] bedtime. I Medical ADVISE Branch AGAINST TAKING THIS MEDICATION DUE TO THE RISKS. [facility] zolpidem 10 2020-0 Yes 10mg Take 10 mg [facility] mg tablet 3-01 by mouth ity of 00:00: at [place] [address] bedtime. I Medical ADVISE Branch AGAINST TAKING THIS MEDICATION DUE TO THE RISKS. [facility] zolpidem 10 2020-0 Yes 10mg Take 10 mg [facility] mg tablet 3-01 by mouth ity of 00:00: at [place] [address] bedtime. I Medical ADVISE Branch AGAINST TAKING THIS MEDICATION DUE TO THE RISKS. [facility] zolpidem 10 2020-0 Yes 10mg Take 10 mg [facility] mg tablet 3-01 by mouth ity of 00:00: at [place] [address] bedtime. I Medical ADVISE Branch AGAINST TAKING THIS MEDICATION DUE TO THE RISKS. [facility] zolpidem 10 2020-0 Yes 10mg Take 10 mg [facility] mg tablet 3-01 by mouth ity of 00:00: at [place] 00 bedtime. I Medical ADVISE Branch AGAINST TAKING THIS MEDICATION DUE TO THE RISKS. [facility] zolpidem 10 2020-0 Yes 10mg Take 10 mg [facility] mg tablet 3-01 by mouth ity of 00:00: at [place] 00 bedtime. I Medical ADVISE Branch AGAINST TAKING THIS MEDICATION DUE TO THE RISKS. [facility] zolpidem 10 2020-0 Yes 10mg Take 10 mg [facility] mg tablet 3-01 by mouth ity of 00:00: at [place] 00 bedtime. I Medical ADVISE Branch AGAINST TAKING THIS MEDICATION DUE TO THE RISKS. [facility] zolpidem 10 2020-0 Yes 10mg Take 10 mg [facility] mg tablet 3-01 by mouth ity of 00:00: at [place] [address] bedtime. I Medical ADVISE Branch AGAINST TAKING THIS MEDICATION DUE TO THE RISKS. [facility] zolpidem 10 2020-0 Yes 10mg Take 10 mg [facility] mg tablet 3-01 by mouth ity of 00:00: at [place] [address] bedtime. I Medical ADVISE Branch AGAINST TAKING THIS MEDICATION DUE TO THE RISKS. [facility] zolpidem 10 2020-0 Yes 10mg Take 10 mg [facility] mg tablet 3-01 by mouth ity of 00:00: at [place] [address] bedtime. I Medical ADVISE Branch AGAINST TAKING THIS MEDICATION DUE TO THE RISKS. [facility] zolpidem 10 2020-0 Yes 10mg Take 10 mg [facility] mg tablet 3-01 by mouth ity of 00:00: at [place] [address] bedtime. I Medical ADVISE Branch AGAINST TAKING THIS MEDICATION DUE TO THE RISKS. [facility] zolpidem 10 2020-0 Yes 10mg Take 10 mg [facility] mg tablet 3-01 by mouth ity of 00:00: at [place] [address] bedtime. I Medical ADVISE Branch AGAINST TAKING THIS MEDICATION DUE TO THE RISKS. [facility] zolpidem 10 2020-0 Yes 10mg Take 10 mg [facility] mg tablet 3-01 by mouth ity of 00:00: at [place] [address] bedtime. I Medical ADVISE Branch AGAINST TAKING THIS MEDICATION DUE TO THE RISKS. [facility] zolpidem 10 2020-0 Yes 10mg Take 10 mg [facility] mg tablet 3-01 by mouth ity of 00:00: at [place] 00 bedtime. Medical Branch zolpidem 10 2020-0 Yes 10mg Take 10 mg [facility] mg tablet 3-01 by mouth ity of 00:00: at [place] [address] bedtime. [facility] Branch zolpidem 10 2020-0 Yes 10mg Take 10 mg [facility] mg tablet 3-01 by mouth ity of 00:00: at [place] 00 bedtime. [facility] Branch zolpidem 10 2020-0 Yes 10mg Take 10 mg [facility] mg tablet 3-01 by mouth ity of 00:00: at [place] [address] bedtime. I Medical ADVISE Branch AGAINST TAKING THIS MEDICATION DUE TO THE RISKS. [facility] zolpidem 10 2020-0 Yes 10mg Take 10 mg [facility] mg tablet 3-01 by mouth ity of 00:00: at [place] [address] bedtime. I Medical ADVISE Branch AGAINST TAKING THIS MEDICATION DUE TO THE RISKS. [facility] zolpidem 10 2020-0 Yes 10mg Take 10 mg [facility] mg tablet 3-01 by mouth ity of 00:00: at [place] [address] bedtime. I Medical ADVISE Branch AGAINST TAKING THIS MEDICATION DUE TO THE RISKS. [facility] zolpidem 10 2020-0 Yes 10mg Take 10 mg [facility] mg tablet 3-01 by mouth ity of 00:00: at [place] [address] bedtime. I Medical ADVISE Branch AGAINST TAKING THIS MEDICATION DUE TO THE RISKS. [facility] zolpidem 10 2020-0 Yes 10mg Take 10 mg [facility] mg tablet 3-01 by mouth ity of 00:00: at [place] [address] bedtime. I Medical ADVISE Branch AGAINST TAKING THIS MEDICATION DUE TO THE RISKS. [facility] zolpidem 10 2020-0 Yes 10mg Take 10 mg [facility] mg tablet 3-01 by mouth ity of 00:00: at [place] [address] bedtime. I Medical ADVISE Branch AGAINST TAKING THIS MEDICATION DUE TO THE RISKS. [facility] zolpidem 10 2020-0 Yes 10mg Take 10 mg [facility] mg tablet 3-01 by mouth ity of 00:00: at [place] [address] bedtime. I Medical ADVISE Branch AGAINST TAKING THIS MEDICATION DUE TO THE RISKS. [facility] zolpidem 10 2020-0 Yes 10mg Take 10 mg [facility] mg tablet 3-01 by mouth ity of 00:00: at [place] [address] bedtime. I Medical ADVISE Branch AGAINST TAKING THIS MEDICATION DUE TO THE RISKS. [facility] zolpidem 10 2020-0 Yes 10mg Take 10 mg [facility] mg tablet 3-01 by mouth ity of 00:00: at [place] 00 bedtime. I Medical ADVISE Branch AGAINST TAKING THIS MEDICATION DUE TO THE RISKS. [facility] zolpidem 10 2020-0 Yes 10mg Take 10 mg [facility] mg tablet 3-01 by mouth ity of 00:00: at [place] 00 bedtime. I Medical ADVISE Branch AGAINST TAKING THIS MEDICATION DUE TO THE RISKS. [facility] zolpidem 10 2020-0 Yes 10mg Take 10 mg [facility] mg tablet 3-01 by mouth ity of 00:00: at [place] 00 bedtime. I Medical ADVISE Branch AGAINST TAKING THIS MEDICATION DUE TO THE RISKS. [facility] zolpidem 10 2020-0 Yes 10mg Take 10 mg [facility] mg tablet 3-01 by mouth ity of 00:00: at [place] [address] bedtime. I Medical ADVISE Branch AGAINST TAKING THIS MEDICATION DUE TO THE RISKS. [facility] zolpidem 10 2020-0 Yes 10mg Take 10 mg [facility] mg tablet 3-01 by mouth ity of 00:00: at [place] [address] bedtime. I Medical ADVISE Branch AGAINST TAKING THIS MEDICATION DUE TO THE RISKS. [facility] zolpidem 10 2020-0 Yes 10mg Take 10 mg [facility] mg tablet 3-01 by mouth ity of 00:00: at [place] [address] bedtime. I Medical ADVISE Branch AGAINST TAKING THIS MEDICATION DUE TO THE RISKS. [facility] zolpidem 10 2020-0 Yes 10mg Take 10 mg [facility] mg tablet 3-01 by mouth ity of 00:00: at [place] [address] bedtime. I Medical ADVISE Branch AGAINST TAKING THIS MEDICATION DUE TO THE RISKS. [facility] zolpidem 10 2020-0 Yes 10mg Take 10 mg [facility] mg tablet 3-01 by mouth ity of 00:00: at [place] [address] bedtime. I Medical ADVISE Branch AGAINST TAKING THIS MEDICATION DUE TO THE RISKS. [facility] zolpidem 10 2020-0 Yes 10mg Take 10 mg [facility] mg tablet 3-01 by mouth ity of 00:00: at [place] 00 bedtime. I Medical ADVISE Branch AGAINST TAKING THIS MEDICATION DUE TO THE RISKS. [facility] zolpidem 10 2020-0 Yes 10mg Take 10 mg [facility] mg tablet 3-01 by mouth ity of 00:00: at [place] [address] bedtime. I Medical ADVISE Branch AGAINST TAKING THIS MEDICATION DUE TO THE RISKS. [facility] zolpidem 10 2020-0 Yes 10mg Take 10 mg [facility] mg tablet 3-01 by mouth ity of 00:00: at [place] 00 bedtime. I Medical ADVISE Branch AGAINST TAKING THIS MEDICATION DUE TO THE RISKS. [facility] zolpidem 10 2020-0 Yes 10mg Take 10 mg [facility] mg tablet 3-01 by mouth ity of 00:00: at [place] 00 bedtime. I Medical ADVISE Branch AGAINST TAKING THIS MEDICATION DUE TO THE RISKS. [facility] zolpidem 10 2020-0 Yes 10mg Take 10 mg [facility] mg tablet 3-01 by mouth ity of 00:00: at [place] [address] bedtime. I Medical ADVISE Branch AGAINST TAKING THIS MEDICATION DUE TO THE RISKS. [facility] zolpidem 10 2020-0 Yes 10mg Take 10 mg [facility] mg tablet 3-01 by mouth ity of 00:00: at [place] [address] bedtime. I Medical ADVISE Branch AGAINST TAKING THIS MEDICATION DUE TO THE RISKS. [facility] zolpidem 10 2020-0 Yes 10mg Take 10 mg [facility] mg tablet 3-01 by mouth ity of 00:00: at [place] [address] bedtime. I Medical ADVISE Branch AGAINST TAKING THIS MEDICATION DUE TO THE RISKS. [facility] zolpidem 10 2020-0 Yes 10mg Take 10 mg [facility] mg tablet 3-01 by mouth ity of 00:00: at [place] [address] bedtime. I Medical ADVISE Branch AGAINST TAKING THIS MEDICATION DUE TO THE RISKS. [facility] zolpidem 10 2020-0 Yes 10mg Take 10 mg [facility] mg tablet 3-01 by mouth ity of 00:00: at [place] [address] bedtime. I Medical ADVISE Branch AGAINST TAKING THIS MEDICATION DUE TO THE RISKS. [facility] zolpidem 10 2020-0 Yes 10mg Take 10 mg [facility] mg tablet 3-01 by mouth ity of 00:00: at [place] [address] bedtime. I Medical ADVISE Branch AGAINST TAKING THIS MEDICATION DUE TO THE RISKS. [facility] zolpidem 10 2020-0 Yes 10mg Take 10 mg [facility] mg tablet 3-01 by mouth ity of 00:00: at [place] [address] bedtime. I Medical ADVISE Branch AGAINST TAKING THIS MEDICATION DUE TO THE RISKS. [facility] zolpidem 10 2020-0 Yes 10mg Take 10 mg [facility] mg tablet 3-01 by mouth ity of 00:00: at [place] [address] bedtime. I Medical ADVISE Branch AGAINST TAKING THIS MEDICATION DUE TO THE RISKS. [facility] zolpidem 10 2020-0 Yes 10mg Take 10 mg [facility] mg tablet 3-01 by mouth ity of 00:00: at [place] [address] bedtime. I Medical ADVISE Branch AGAINST TAKING THIS MEDICATION DUE TO THE RISKS. [facility] zolpidem 10 2020-0 Yes 10mg Take 10 mg [facility] mg tablet 3-01 by mouth ity of 00:00: at [place] 00 bedtime. I Medical ADVISE Branch AGAINST TAKING THIS MEDICATION DUE TO THE RISKS. [facility] zolpidem 10 2020-0 Yes 10mg Take 10 mg [facility] mg tablet 3-01 by mouth ity of 00:00: at [place] 00 bedtime. I Medical ADVISE Branch AGAINST TAKING THIS MEDICATION DUE TO THE RISKS. [facility] zolpidem 10 2020-0 Yes 10mg Take 10 mg [facility] mg tablet 3-01 by mouth ity of 00:00: at [place] [address] bedtime. I Medical ADVISE Branch AGAINST TAKING THIS MEDICATION DUE TO THE RISKS. [facility] zolpidem 10 2020-0 Yes 10mg Take 10 mg [facility] mg tablet 3-01 by mouth ity of 00:00: at [place] [address] bedtime. I Medical ADVISE Branch AGAINST TAKING THIS MEDICATION DUE TO THE RISKS. [facility] ondansetron 2020-0 Yes 4mg Take 4 mg [...] mg by ity of tablet 00:00: mouth [place] (three) Medical times Branch daily. cloNIDine 2020-0 Yes .3mg Take 0.3 Univ ers 0.3 mg 2-26 mg by ity of tablet 00:00: mouth [place] (three) Medical times Branch daily. cloNIDine 2020-0 Yes .3mg Take 0.3 Univ ers 0.3 mg 2-26 mg by ity of tablet 00:00: mouth [place] (three) Medical times Branch daily. cloNIDine 2020-0 Yes .3mg Take 0.3 Univ ers 0.3 mg 2-26 mg by ity of tablet 00:00: mouth [place] (three) Medical times Branch daily. cloNIDine 2020-0 Yes .3mg Take 0.3 Univ ers 0.3 mg 2-26 mg by ity of tablet 00:00: mouth [place] (three) Medical times Branch daily. cloNIDine 2020-0 Yes .3mg Take 0.3 Univ ers 0.3 mg 2-26 mg by ity of tablet 00:00: mouth 3 [place] (three) Medical times Branch daily. cloNIDine 2020-0 [...] by ity of tablet 00:00: mouth 3 [place] 00 (three) Medical times Branch daily. amitriptyli 2020-0 Yes 25mg Take 1 Univ ers ne 25 mg 2-07 tablet by ity of tablet 00:00: mouth at [place] [address] bedtime. Medical Branch butorphanol 2020-0 Yes USE 1 Unive rs 10 mg/mL 2-07 SPRAY IN ity of nasal spray 00:00: ONE [place] [address] NOSTRIL Medical EVERY 8 Branch HOURS NEEDED FOR HEADACHE amitriptyli 2020-0 Yes 25mg Take 1 Univ ers ne 25 mg 2-07 tablet by ity of tablet 00:00: mouth at [place] [address] bedtime. Medical Branch butorphanol 2020-0 Yes USE 1 Unive rs 10 mg/mL 2-07 SPRAY IN ity of nasal spray 00:00: ONE [place] [address] NOSTRIL Medical EVERY 8 Branch HOURS NEEDED FOR HEADACHE butorphanol 2020-0 Yes USE 1 Unive rs 10 mg/mL 2-07 SPRAY IN ity of nasal spray 00:00: ONE [place] [address] [facility] Medical EVERY 8 Branch HOURS NEEDED FOR HEADACHE butorphanol 2020-0 2020- No USE 1 [facility] ers 10 mg/mL 2-07 03-05 SPRAY IN ity of nasal spray 00:00: 00:00 ONE [place] 00 :00 NOSTRIL Medical EVERY 8 Branch HOURS NEEDED FOR HEADACHE butorphanol 2020-0 2020- No USE 1 [facility] ers 10 mg/mL 2-07 03-05 SPRAY IN ity of nasal spray 00:00: 00:00 ONE [place] 00 :00 NOSTRIL Medical EVERY 8 Branch HOURS NEEDED FOR HEADACHE amitriptyli 2020-0 2020- No 25mg Take 1 Uni vers ne 25 mg 2-07 03-02 tablet by ity o f tablet 00:00: 00:00 mouth at [place] 00 :00 bedtime. Medical Branch amLODIPine 2020-0 Yes 5mg Take 5 mg [facility] 5 mg tablet 2-06 by mouth 2 it y of 00:00: (two) [place] 00 times Medical daily. Branch amLODIPine 2020-0 [...] mouth 2 it y of 00:00: (two) [place] 00 times Medical daily. Branch amLODIPine 2020-0 Yes 5mg Take 5 mg [facility] 5 mg tablet 2-06 by mouth 2 it y of 00:00: (two) [place] 00 times Medical daily. Branch amLODIPine 2020-0 Yes 5mg Take 5 mg [facility] 5 mg tablet 2-06 by mouth 2 it y of 00:00: (two) [place] 00 times Medical daily. Branch sotalol 80 2020-0 Yes 80mg Take 80 mg U nivers mg tablet 1-16 by mouth ity of 00:00: every 12 [place] [address] (twelve) Medical hours. Branch sotalol 80 2020-0 Yes 80mg Take 80 mg U nivers mg tablet 1-16 by mouth ity of 00:00: every 12 [place] [address] (twelve) Medical hours. Branch sotalol 80 2020-0 Yes 80mg Take 80 mg U nivers mg tablet 1-16 by mouth ity of 00:00: every 12 [place] [address] (twelve) Medical hours. Branch sotalol 80 2020-0 Yes 80mg Take 80 mg U nivers mg tablet 1-16 by mouth ity of 00:00: every 12 [place] [address] (twelve) Medical hours. Branch sotalol 80 2020-0 Yes 80mg Take 80 mg U nivers mg tablet 1-16 by mouth ity of 00:00: every 12 [place] [address] (twelve) Medical hours. Branch sotalol 80 2020-0 Yes 80mg Take 80 mg U nivers mg tablet 1-16 by mouth ity of 00:00: every 12 [place] 00 (twelve) Medical hours. Branch sotalol 80 2020-0 Yes 80mg Take 80 mg U nivers mg tablet 1-16 by mouth ity of 00:00: every 12 [place] 00 (twelve) Medical hours. Branch sotalol 80 2020-0 Yes 80mg Take 80 mg U nivers mg tablet 1-16 by mouth ity of 00:00: every 12 [place] [address] (twelve) Medical hours. Branch sotalol 80 2020-0 Yes 80mg Take 80 mg U nivers mg tablet 1-16 by mouth ity of 00:00: every 12 [place] 00 (twelve) Medical hours. Branch sotalol 80 2020-0 Yes 80mg Take 80 mg U nivers mg tablet 1-16 by mouth ity of 00:00: every 12 [place] 00 (twelve) Medical hours. Branch sotalol 80 2020-0 Yes 80mg Take 80 mg U nivers mg tablet 1-16 by mouth ity of 00:00: every 12 [place] 00 (twelve) Medical hours. Branch sotalol 80 2020-0 Yes 80mg Take 80 mg U nivers mg tablet 1-16 by mouth ity of 00:00: every 12 [place] 00 (twelve) Medical hours. Branch sotalol 80 2020-0 Yes 80mg Take 80 mg U nivers mg tablet 1-16 by mouth ity of 00:00: every 12 [place] 00 (twelve) Medical hours. Branch sotalol 80 2020-0 Yes 80mg Take 80 mg U nivers mg tablet 1-16 by mouth ity of 00:00: every 12 [place] (twelve) Medical hours. Branch sotalol 80 2020-0 Yes 80mg Take 80 mg U nivers mg tablet 1-16 by mouth ity of 00:00: every 12 [place] 00 (twelve) Medical hours. Branch sotalol 80 2020-0 Yes 80mg Take 80 mg U nivers mg tablet 1-16 by mouth ity of 00:00: every 12 [place] 00 (twelve) Medical hours. Branch sotalol 80 2020-0 Yes 80mg Take 80 mg U nivers mg tablet 1-16 by mouth ity of 00:00: every 12 [place] 00 (twelve) Medical hours. Branch sotalol 80 2020-0 Yes 80mg Take 80 mg U nivers mg tablet 1-16 by mouth ity of 00:00: every 12 [place] 00 (twelve) Medical hours. Branch sotalol 80 2020-0 Yes 80mg Take 80 mg U nivers mg tablet 1-16 by mouth ity of 00:00: every 12 [place] 00 (twelve) Medical hours. Branch sotalol 80 2020-0 Yes 80mg Take 80 mg U nivers mg tablet 1-16 by mouth ity of 00:00: every 12 [place] 00 (twelve) Medical hours. Branch sotalol 80 2020-0 Yes [facility] mg tablet 1-16 ity of 00:00: [place] 00 Medical Branch sotalol 80 2020-0 Yes [facility] mg tablet 1-16 ity of 00:00: [place] 00 Medical Branch sotalol 80 2020-0 Yes 80mg Take 80 mg U nivers mg tablet 1-16 by mouth ity of 00:00: every 12 [place] 00 (twelve) Medical hours. Branch sotalol 80 2020-0 Yes 80mg Take 80 mg U nivers mg tablet 1-16 by mouth ity of 00:00: every 12 [place] 00 (twelve) Medical hours. Branch sotalol 80 2020-0 Yes 80mg Take 80 mg U nivers mg tablet 1-16 by mouth ity of 00:00: every 12 [place] 00 (twelve) Medical hours. Branch sotalol 80 2020-0 Yes 80mg Take 80 mg U nivers mg tablet 1-16 by mouth ity of 00:00: every 12 [place] 00 (twelve) Medical hours. Branch sotalol 80 2020-0 Yes 80mg Take 80 mg U nivers mg tablet 1-16 by mouth ity of 00:00: every 12 [place] [address] (twelve) Medical hours. Branch sotalol 80 2020-0 Yes 80mg Take 80 mg U nivers mg tablet 1-16 by mouth ity of 00:00: every 12 [place] [address] (twelve) Medical hours. Branch sotalol 80 2020-0 Yes 80mg Take 80 mg U nivers mg tablet 1-16 by mouth ity of 00:00: every 12 [place] [address] (twelve) Medical hours. Branch sotalol 80 2020-0 Yes 80mg Take 80 mg U nivers mg tablet 1-16 by mouth ity of 00:00: every 12 [place] [address] (twelve) Medical hours. Branch sotalol 80 2020-0 Yes 80mg Take 80 mg U nivers mg tablet 1-16 by mouth ity of 00:00: every 12 [place] 00 (twelve) Medical hours. Branch sotalol 80 2020-0 Yes 80mg Take 80 mg U nivers mg tablet 1-16 by mouth ity of 00:00: every 12 [place] 00 (twelve) Medical hours. Branch sotalol 80 2020-0 Yes 80mg Take 80 mg U nivers mg tablet 1-16 by mouth ity of 00:00: every 12 [place] [address] (twelve) Medical hours. Branch sotalol 80 2020-0 Yes 80mg Take 80 mg U nivers mg tablet 1-16 by mouth ity of 00:00: every 12 [place] 00 (twelve) Medical hours. Branch sotalol 80 2020-0 Yes 80mg Take 80 mg U nivers mg tablet 1-16 by mouth ity of 00:00: every 12 [place] 00 (twelve) Medical hours. Branch sotalol 80 2020-0 Yes 80mg Take 80 mg U nivers mg tablet 1-16 by mouth ity of 00:00: every 12 [place] 00 (twelve) Medical hours. Branch sotalol 80 2020-0 Yes 80mg Take 80 mg U nivers mg tablet 1-16 by mouth ity of 00:00: every 12 [place] 00 (twelve) Medical hours. Branch sotalol 80 2020-0 Yes 80mg Take 80 mg U nivers mg tablet 1-16 by mouth ity of 00:00: every 12 [place] 00 (twelve) Medical hours. Branch sotalol 80 2020-0 Yes 80mg Take 80 mg U nivers mg tablet 1-16 by mouth ity of 00:00: every 12 [place] 00 (twelve) Medical hours. Branch sotalol 80 2020-0 Yes 80mg Take 80 mg U nivers mg tablet 1-16 by mouth ity of 00:00: every 12 [place] 00 (twelve) Medical hours. Branch sotalol 80 2020-0 Yes 80mg Take 80 mg U nivers mg tablet 1-16 by mouth ity of 00:00: every 12 [place] 00 (twelve) Medical hours. Branch sotalol 80 2020-0 Yes 80mg Take 80 mg U nivers mg tablet 1-16 by mouth ity of 00:00: every 12 [place] 00 (twelve) Medical hours. Branch sotalol 80 2020-0 Yes 80mg Take 80 mg U nivers mg tablet 1-16 by mouth ity of 00:00: every 12 [place] 00 (twelve) Medical hours. Branch sotalol 80 2020-0 Yes 80mg Take 80 mg U nivers mg tablet 1-16 by mouth ity of 00:00: every 12 [place] 00 (twelve) Medical hours. Branch sotalol 80 2020-0 Yes 80mg Take 80 mg U nivers mg tablet 1-16 by mouth ity of 00:00: every 12 [place] 00 (twelve) Medical hours. Branch sotalol 80 2020-0 Yes 80mg Take 80 mg U nivers mg tablet 1-16 by mouth ity of 00:00: every 12 [place] 00 (twelve) Medical hours. Branch sotalol 80 2020-0 Yes 80mg Take 80 mg U nivers mg tablet 1-16 by mouth ity of 00:00: every 12 [place] 00 (twelve) Medical hours. Branch sotalol 80 2020-0 Yes 80mg Take 80 mg U nivers mg tablet 1-16 by mouth ity of 00:00: every 12 [place] 00 (twelve) Medical hours. Branch sotalol 80 2020-0 Yes 80mg Take 80 mg U nivers mg tablet 1-16 by mouth ity of 00:00: every 12 [place] 00 (twelve) Medical hours. Branch sotalol 80 2020-0 Yes 80mg Take 80 mg U nivers mg tablet 1-16 by mouth ity of 00:00: every 12 [place] 00 (twelve) Medical hours. Branch sotalol 80 2020-0 Yes 80mg Take 80 mg U nivers mg tablet 1-16 by mouth ity of 00:00: every 12 [place] [address] (twelve) Medical hours. Branch sotalol 80 2020-0 Yes 80mg Take 80 mg U nivers mg tablet 1-16 by mouth ity of 00:00: every 12 [place] 00 (twelve) Medical hours. Branch sotalol 80 2020-0 Yes 80mg Take 80 mg U nivers mg tablet 1-16 by mouth ity of 00:00: every 12 [place] 00 (twelve) Medical hours. Branch sotalol 80 2020-0 Yes 80mg Take 80 mg U nivers mg tablet 1-16 by mouth ity of 00:00: every 12 [place] [address] (twelve) Medical hours. Branch sotalol 80 2020-0 Yes 80mg Take 80 mg U nivers mg tablet 1-16 by mouth ity of 00:00: every 12 [place] 00 (twelve) Medical hours. Branch sotalol 80 2020-0 Yes 80mg Take 80 mg U nivers mg tablet 1-16 by mouth ity of 00:00: every 12 [place] 00 (twelve) Medical hours. Branch butorphanol 2019- Yes USE 1 [facility] rs 10 mg/mL 2-20 SPRAY IN ity of nasal spray 00:00: ONE [place] [address] NOSTRIL Medical EVERY 8 Branch HOURS NEEDED FOR HEADACHE butorphanol 2019- Yes USE 1 [facility] rs 10 mg/mL 2-20 SPRAY IN ity of nasal spray 00:00: ONE [place] [address] NOSTRIL Medical EVERY 8 Branch HOURS NEEDED FOR HEADACHE butorphanol 2018-02 Yes USE 1 [facility] rs 10 mg/mL 2-20 SPRAY IN ity of nasal spray 00:00: ONE [place] [address] NOSTRIL Medical EVERY 8 Branch HOURS NEEDED FOR HEADACHE butorphanol 2018-02 Yes USE 1 Unive rs 10 mg/mL 2-20 SPRAY IN ity of nasal spray 00:00: ONE [place] [address] NOSTRIL Medical EVERY 8 Branch HOURS NEEDED FOR HEADACHE butorphanol 2018-02 Yes USE 1 Unive rs 10 mg/mL 2-20 SPRAY IN ity of nasal spray 00:00: ONE [place] NOSTRIL Medical EVERY 8 Branch HOURS NEEDED FOR HEADACHE butorphanol 2018-02 2020- No USE 1 [facility] ers 10 mg/mL 2-20 02-07 SPRAY IN ity of nasal spray 00:00: 00:00 ONE [place] 00 :00 NOSTRIL Medical EVERY 8 Branch HOURS NEEDED FOR HEADACHE butorphanol 2018- 2020- No USE 1 [facility] ers 10 mg/mL 2-20 02-07 SPRAY IN ity of nasal spray 00:00: 00:00 ONE [place] 00 :00 NOSTRIL Medical EVERY 8 Branch HOURS NEEDED FOR HEADACHE pantoprazol 2018-02 Yes 40mg Take 40 mg Univers e 40 mg EC 2-17 by mouth ity o f tablet 00:00: daily. [address] pantoprazol 2018-02 Yes 40mg Take 40 mg Univers e 40 mg EC 2-17 by mouth ity o f tablet 00:00: daily. [address] pantoprazol 2018-02 Yes 40mg Take 40 mg Univers e 40 mg EC 2-17 by mouth ity o f tablet 00:00: daily. [address] pantoprazol 2018-02 Yes 40mg Take 40 mg Univers e 40 mg EC 2-17 by mouth ity o f tablet 00:00: daily. [address] pantoprazol 2018-02 Yes 40mg Take 40 mg Univers e 40 mg EC 2-17 by mouth ity o f tablet 00:00: daily. [address] pantoprazol 2018-02 Yes 40mg Take 40 mg Univers e 40 mg EC 2-17 by mouth ity o f tablet 00:00: daily. [address] pantoprazol 2018-02 Yes 40mg Take 40 mg Univers e 40 mg EC 2-17 by mouth ity o f tablet 00:00: daily. [place] [facility] pantoprazol 2018-02 Yes 40mg Take 40 mg Univers e 40 mg EC 2-17 by mouth ity o f tablet 00:00: daily. [place] [facility] pantoprazol 2018-02 Yes 40mg Take 40 mg Univers e 40 mg EC 2-17 by mouth ity o f tablet 00:00: daily. [place] [facility] pantoprazol 2018-02 Yes 40mg Take 40 mg Univers e 40 mg EC 2-17 by mouth ity o f tablet 00:00: daily. [place] [facility] pantoprazol 2018-02 Yes 40mg Take 40 mg Univers e 40 mg EC 2-17 by mouth ity o f tablet 00:00: daily. [place] [facility] pantoprazol 2018-02 Yes 40mg Take 40 mg Univers e 40 mg EC 2-17 by mouth ity o f tablet 00:00: daily. [place] [facility] pantoprazol 2018-02 Yes 40mg Take 40 mg Univers e 40 mg EC 2-17 by mouth ity o f tablet 00:00: daily. [place] [facility] pantoprazol 2018-02 Yes 40mg Take 40 mg Univers e 40 mg EC 2-17 by mouth ity o f tablet 00:00: daily. [place] [facility] pantoprazol 2018-02 Yes 40mg Take 40 mg Univers e 40 mg EC 2-17 by mouth ity o f tablet 00:00: daily. [place] [facility] pantoprazol 2018-02 Yes 40mg Take 40 mg Univers e 40 mg EC 2-17 by mouth ity o f tablet 00:00: daily. [place] [facility] pantoprazol 2018-02 Yes 40mg Take 40 mg Univers e 40 mg EC 2-17 by mouth ity o f tablet 00:00: daily. [place] [facility] pantoprazol 2018-02 Yes 40mg Take 40 mg Univers e 40 mg EC 2-17 by mouth ity o f tablet 00:00: daily. [place] [facility] pantoprazol 2018-02 Yes 40mg Take 40 mg Univers e 40 mg EC 2-17 by mouth ity o f tablet 00:00: daily. [address] pantoprazol 2018-02 Yes 40mg Take 40 mg Univers e 40 mg EC 2-17 by mouth ity o f tablet 00:00: daily. [address] pantoprazol 2018-02 Yes 40mg Take 40 mg Univers e 40 mg EC 2-17 by mouth ity o f tablet 00:00: daily. [place] [facility] pantoprazol 2018-02 Yes 40mg Take 40 mg Univers e 40 mg EC 2-17 by mouth ity o f tablet 00:00: daily. [place] [facility] pantoprazol 2018-02 Yes 40mg Take 40 mg Univers e 40 mg EC 2-17 by mouth ity o f tablet 00:00: daily. [place] [facility] pantoprazol 2018-02 Yes 40mg Take 40 mg Univers e 40 mg EC 2-17 by mouth ity o f tablet 00:00: daily. [place] [facility] pantoprazol 2018-02 Yes 40mg Take 40 mg Univers e 40 mg EC 2-17 by mouth ity o f tablet 00:00: daily. [place] [facility] pantoprazol 2018-02 Yes 40mg Take 40 mg Univers e 40 mg EC 2-17 by mouth ity o f tablet 00:00: daily. [place] [facility] pantoprazol 2018-02 Yes 40mg Take 40 mg Univers e 40 mg EC 2-17 by mouth ity o f tablet 00:00: daily. [place] [facility] pantoprazol 2018-02 Yes 40mg Take 40 mg Univers e 40 mg EC 2-17 by mouth ity o f tablet 00:00: daily. [address] pantoprazol 2018-02 Yes 40mg Take 40 mg Univers e 40 mg EC 2-17 by mouth ity o f tablet 00:00: daily. [address] pantoprazol 2018-02 Yes 40mg Take 40 mg Univers e 40 mg EC 2-17 by mouth ity o f tablet 00:00: daily. [place] [facility] pantoprazol 2018-02 Yes 40mg Take 40 mg Univers e 40 mg EC 2-17 by mouth ity o f tablet 00:00: daily. [address] pantoprazol 2018-02 Yes 40mg Take 40 mg Univers e 40 mg EC 2-17 by mouth ity o f tablet 00:00: daily. [address] pantoprazol 2018-02 Yes 40mg Take 40 mg Univers e 40 mg EC 2-17 by mouth ity o f tablet 00:00: daily. [address] pantoprazol 2018-02 Yes 40mg Take 40 mg Univers e 40 mg EC 2-17 by mouth ity o f tablet 00:00: daily. [place] [facility] pantoprazol 2018-02 Yes 40mg Take 40 mg Univers e 40 mg EC 2-17 by mouth ity o f tablet 00:00: daily. [place] [facility] pantoprazol 2018-02 Yes 40mg Take 40 mg Univers e 40 mg EC 2-17 by mouth ity o f tablet 00:00: daily. [place] [facility] pantoprazol 2018-02 Yes 40mg Take 40 mg Univers e 40 mg EC 2-17 by mouth ity o f tablet 00:00: daily. [place] [facility] pantoprazol 2018-02 Yes 40mg Take 40 mg Univers e 40 mg EC 2-17 by mouth ity o f tablet 00:00: daily. [place] [facility] pantoprazol 2018-02 Yes 40mg Take 40 mg Univers e 40 mg EC 2-17 by mouth ity o f tablet 00:00: daily. [place] [facility] pantoprazol 2018-02 Yes 40mg Take 40 mg Univers e 40 mg EC 2-17 by mouth ity o f tablet 00:00: daily. [place] [facility] pantoprazol 2018-02 Yes 40mg Take 40 mg Univers e 40 mg EC 2-17 by mouth ity o f tablet 00:00: daily. [place] [facility] pantoprazol 2018-02 Yes 40mg Take 40 mg Univers e 40 mg EC 2-17 by mouth ity o f tablet 00:00: daily. [place] [facility] pantoprazol 2018-02 Yes 40mg Take 40 mg Univers e 40 mg EC 2-17 by mouth ity o f tablet 00:00: daily. [place] [facility] pantoprazol 2018-02 Yes 40mg Take 40 mg Univers e 40 mg EC 2-17 by mouth ity o f tablet 00:00: daily. [place] [facility] pantoprazol 2018-02 Yes 40mg Take 40 mg Univers e 40 mg EC 2-17 by mouth ity o f tablet 00:00: daily. [place] [facility] pantoprazol 2018-02 Yes 40mg Take 40 mg Univers e 40 mg EC 2-17 by mouth ity o f tablet 00:00: daily. [address] pantoprazol 2018-02 Yes 40mg Take 40 mg Univers e 40 mg EC 2-17 by mouth ity o f tablet 00:00: daily. [place] [facility] pantoprazol 2018-02 Yes 40mg Take 40 mg Univers e 40 mg EC 2-17 by mouth ity o f tablet 00:00: daily. [facility] pantoprazol 2018-02 Yes 40mg Take 40 mg Univers e 40 mg EC 2-17 by mouth ity o f tablet 00:00: daily. [facility] pantoprazol 2018-02 Yes 40mg Take 40 mg Univers e 40 mg EC 2-17 by mouth ity o f tablet 00:00: daily. [facility] pantoprazol 2018-02 Yes 40mg Take 40 mg Univers e 40 mg EC 2-17 by mouth ity o f tablet 00:00: daily. [facility] pantoprazol 2018-02 Yes 40mg Take 40 mg Univers e 40 mg EC 2-17 by mouth ity o f tablet 00:00: daily. [facility] pantoprazol 2018-02 Yes 40mg Take 40 mg Univers e 40 mg EC 2-17 by mouth ity o f tablet 00:00: daily. [facility] pantoprazol 2018-02 Yes 40mg Take 40 mg Univers e 40 mg EC 2-17 by mouth ity o f tablet 00:00: daily. [place] [facility] busPIRone 5 2018-02 Yes [id number] TAKE 1 Univers mg tablet 0- 9102 TABLET BY ity o f 00:00: MOUTH TWICE A Medical DAY Branch busPIRone 5 2018-02 Yes [id number] TAKE 1 Univers mg tablet 0- 9102 TABLET BY ity o f 00:00: MOUTH TWICE A Medical DAY Branch busPIRone 5 2018-02 Yes [id number] TAKE 1 Univers mg tablet 0- 9102 TABLET BY ity o f 00:00: MOUTH TWICE A Medical DAY Branch busPIRone 5 2018-02 Yes [id number] TAKE 1 Univers mg tablet 0-01 9102 TABLET BY ity o f 00:00: MOUTH TWICE A Medical DAY Branch busPIRone 5 2018-02 Yes [id number] TAKE 1 Univers mg tablet 0-01 9102 TABLET BY ity o f 00:00: MOUTH TWICE A Medical DAY Branch busPIRone 5 2018-02 Yes [id number] TAKE 1 Univers mg tablet 0- 9102 TABLET BY ity o f 00:00: MOUTH [place] 00 TWICE A Medical DAY Branch busPIRone 5 2018-02 Yes [id number] TAKE 1 Univers mg tablet 0- 9102 TABLET BY ity o f 00:00: MOUTH 00 TWICE A Medical DAY Branch busPIRone 5 2018-02 Yes [id number] TAKE 1 Univers mg tablet 0- 9102 TABLET BY ity o f 00:00: MOUTH 00 TWICE A Medical DAY Branch busPIRone 5 2018-02 Yes [id number] TAKE 1 Univers mg tablet 0- 9102 TABLET BY ity o f 00:00: MOUTH 00 TWICE A Medical DAY Branch busPIRone 5 2018-02 Yes [id number] TAKE 1 Univers mg tablet 0- 9102 TABLET BY ity o f 00:00: MOUTH 00 TWICE A Medical DAY Branch busPIRone 5 2018-02 Yes [id number] TAKE 1 Univers mg tablet 0- 9102 TABLET BY ity o f 00:00: MOUTH 00 TWICE A Medical DAY Branch busPIRone 5 2018-02 Yes [id number] TAKE 1 Univers mg tablet 0-02 TABLET BY ity o f 00:00: MOUTH 00 TWICE A Medical DAY Branch busPIRone 5 2018-02 Yes [id number] TAKE 1 Univers mg tablet 0- 9102 TABLET BY ity o f 00:00: MOUTH 00 TWICE A Medical DAY Branch busPIRone 5 2018-02 2020- No [id number] TAKE 1 Univers mg tablet 0-04-19 9102 TABLET BY ity of 00:00: 00:00 MOUTH [place] 00 :00 TWICE A Medical DAY Branch BUSPIRONE 5 Yes [id number] TAKE 1 Univers mg tablet 09-08 9102 TABLET BY ity o f 00:00: MOUTH 00 TWICE A Medical DAY Branch butorphanol Yes [id number] 1{spray Use 1 Univers 10 mg/mL 08-21 } [place] in ity of nasal spray 00:00: each [...] the ity of human, 100 18:55: skin. [place] unit/mL 56 Medical injection Branch insulin 0 Yes 60U inject 60 Unive rs detemir 5-14 Units ity of U-100 100 18:55: under the [place] unit/mL 56 skin. Medical injection Branch insulin 0 Yes inject Univers lispro, 5-14 under the ity of human, 100 18:55: skin. [place] unit/mL 56 Medical injection Branch insulin 0 Yes 60U inject 60 Unive rs detemir 5-14 Units ity of U-100 100 18:55: under the [place] unit/mL 56 skin. Medical injection Branch insulin 0 Yes inject Univers lispro, 5-14 under the ity of human, 100 18:55: skin. [place] unit/mL 56 Medical injection Branch insulin 0 [...] the ity of human, 100 18:55: skin. [place] unit/mL 56 Medical injection Branch insulin 2018-0 Yes 60U inject 60 Unive rs detemir 5-14 Units ity of U-100 100 18:55: under the [place] unit/mL 56 skin. Medical injection Branch insulin 0 Yes inject Univers lispro, 5-14 under the ity of human, 100 18:55: skin. [place] unit/mL 56 Medical injection Branch insulin 0 Yes 60U inject 60 Unive rs detemir 5-14 Units ity of U-100 100 18:55: under the [place] unit/mL 56 skin. Medical injection Branch insulin 0 Yes inject Univers lispro, 5-14 under the ity of human, 100 18:55: skin. [place] unit/mL 56 Medical injection Branch insulin 0 Yes 60U inject 60 Unive rs detemir 5-14 Units ity of U-100 100 18:55: under the [place] unit/mL 56 skin. Medical injection Branch insulin 0 Yes inject Univers lispro, 5-14 under the ity of human, 100 18:55: skin. [place] unit/mL 56 Medical injection Branch insulin Yes 60U inject 60 Unive rs detemir 5-14 Units ity of U-100 100 18:55: under the [place] unit/mL 56 skin. Medical injection Branch insulin 0 Yes inject Univers lispro, 5-14 under the ity of human, 100 18:55: skin. [place] unit/mL 56 Medical injection Branch pregabalin 0 Yes 300mg Take 300 Un osbaldo 300 mg 5-14 mg by ity of capsule 17:05: mouth. [address] hydrALAZINE 0 Yes 50mg Take 50 mg Univers 50 mg 5-14 by mouth. ity of tablet 17:05: [address] losartan-hy Yes Take by Un osbaldo drochloroth 5-14 mouth. ity of iazide 17:05: [place] 100-25 mg 39 Medical per tablet Branch carvedilol 0 Yes 25mg Take 25 mg U nivers 12.5 mg 5-14 by mouth. ity of tablet 17:05: [address] acetaminoph 0 Yes 500mg Take 500 U nivers en (TYLENOL 5-14 mg by ity of EXTRA 17:05: mouth [place] STRENGTH) 39 every 6 Medical 500 mg [...] mg by ity of capsule 17:05: mouth. [place] [address] Medical Branch hydrALAZINE 0 Yes 50mg Take 50 mg Univers 50 mg 5-14 by mouth. ity of tablet 17:05: [address] Branch losartan-hy 0 Yes Take by Un osbaldo drochloroth 5-14 mouth. ity of iazide 17:05: [place] 100-25 mg 39 Medical per tablet Branch carvedilol 0 Yes 25mg Take 25 mg U nivers 12.5 mg 5-14 by mouth. ity of tablet 17:05: [place] [address] Medical Branch acetaminoph 0 Yes 500mg Take 500 U nivers en (TYLENOL 5-14 mg by ity of EXTRA 17:05: mouth [place] STRENGTH) 39 every 6 Medical 500 mg (six) Branch tablet hours as needed for Pain. aspirin-nhi 2018-0 Yes 1{tbl} Take 1 Un osbaldo taminophen- 5-14 tablet by ity of caffeine 17:05: mouth [place] (EXCEDRIN 39 every 6 Medical MIGRAINE) (six) [...] mg by ity of capsule 17:05: mouth. [address] Branch hydrALAZINE 2018-0 Yes 50mg Take 50 mg Univers 50 mg 5-14 by mouth. ity of tablet 17:05: [place] 39 Medical Branch losartan-hy 0 Yes Take by Un osbaldo drochloroth 5-14 mouth. ity of iazide 17:05: [place] 100-25 mg 39 Medical per tablet Branch carvedilol 0 Yes 25mg Take 25 mg U nivers 12.5 mg 5-14 by mouth. ity of tablet 17:05: [place] [address] Medical Branch acetaminoph 0 Yes 500mg Take [...] mg by ity of capsule 17:05: mouth. [address] Branch pregabalin 2018-0 Yes 300mg Take 300 Un osbaldo 300 mg 5-14 mg by ity of capsule 17:05: mouth. [place] [address] Medical Branch hydrALAZINE 0 Yes 50mg Take 50 mg Univers 50 mg 5-14 by mouth. ity of tablet 17:05: [address] Branch losartan-hy 0 Yes Take by Un osbaldo drochloroth 5-14 mouth. ity of iazide 17:05: [place] 100-25 mg 39 Medical per tablet Branch hydrALAZINE 0 Yes 50mg Take 50 mg Univers 50 mg 5-14 by mouth. ity of tablet 17:05: [address] Branch carvedilol 0 Yes 25mg Take 25 mg U nivers 12.5 mg 5-14 by mouth. ity of tablet 17:05: [address] Branch acetaminoph 0 Yes 500mg Take [...] mg by ity of capsule 17:05: mouth. [address] Branch hydrALAZINE 2018-0 Yes 50mg Take 50 mg Univers 50 mg 5-14 by mouth. ity of tablet 17:05: [address] Branch losartan-hy 2019-0 Yes Take by Un osbaldo drochloroth 5-14 mouth. ity of iazide 17:05: [place] 100-25 mg 39 Medical per tablet Branch carvedilol 2019-0 Yes 25mg Take 25 mg U nivers 12.5 mg 5-14 by mouth. ity of tablet 17:05: [address] Branch acetaminoph 2019-0 Yes 500mg Take [...] mg by ity of capsule 17:05: mouth. [address] Branch hydrALAZINE 0 Yes 50mg Take 50 mg Univers 50 mg 5-14 by mouth. ity of tablet 17:05: [address] Branch losartan-hy 0 Yes Take by Un osbaldo drochloroth 5-14 mouth. ity of iazide 17:05: [place] 100-25 mg 39 Medical per tablet Branch carvedilol 2018-0 Yes 25mg Take 25 mg U nivers 12.5 mg 5-14 by mouth. ity of tablet 17:05: [address] Branch acetaminoph 0 Yes 500mg Take [...] 5-14 by mouth. ity of tablet 17:05: [address] Branch pregabalin 2018-0 Yes 300mg Take 300 Un osbaldo 300 mg 5-14 mg by ity of capsule 17:05: mouth. [place] [address] Medical Branch hydrALAZINE 0 Yes 50mg Take 50 mg Univers 50 mg 5-14 by mouth. ity of tablet 17:05: [address] Branch losartan-hy 2018-0 Yes Take by Un osbaldo drochloroth 5-14 mouth. ity of iazide 17:05: [place] 100-25 mg 39 Medical per tablet Branch [...] mg by ity of capsule 17:05: mouth. [address] Branch hydrALAZINE 0 Yes 50mg Take 50 mg Univers 50 mg 5-14 by mouth. ity of tablet 17:05: [address] losartan-hy 2018-0 Yes Take by Un [...] 5-14 by mouth. ity of tablet 17:05: [address] Branch losartan-hy 2018-0 Yes Take by Un osbaldo drochloroth 5-14 mouth. ity of iazide 17:05: [place] 100-25 mg 39 Medical per tablet Branch carvedilol 0 Yes 25mg Take 25 mg U nivers 12.5 mg 5-14 by mouth. ity of tablet 17:05: [address] Branch acetaminoph Yes 500mg Take 500 [...] mg by ity of capsule 17:05: mouth. [address] Branch hydrALAZINE 0 Yes 50mg Take 50 mg Univers 50 mg 5-14 by mouth. ity of tablet 17:05: [address] Branch losartan-hy 0 Yes Take by Un osbaldo drochloroth 5-14 mouth. ity of iazide 17:05: [place] 100-25 mg 39 Medical per tablet Branch carvedilol 0 Yes 25mg Take 25 mg U nivers 12.5 mg 5-14 by mouth. ity of tablet 17:05: [place] [address] Medical Branch acetaminoph 0 Yes 500mg Take [...] mg by ity of capsule 17:05: mouth. [place] [address] Medical Branch hydrALAZINE 2019-0 Yes 50mg Take 50 mg Univers 50 mg 5-14 by mouth. ity of tablet 17:05: [address] Branch losartan-hy 2018-0 Yes Take by Un osbaldo drochloroth 5-14 mouth. ity of iazide 17:05: [place] 100-25 mg 39 Medical per tablet Branch carvedilol 2018-0 Yes 25mg Take 25 mg U nivers 12.5 mg 5-14 by mouth. ity of tablet 17:05: [address] Branch acetaminoph 0 Yes 500mg Take 500 U nivers en (TYLENOL 5-14 mg by ity of EXTRA 17:05: mouth [place] STRENGTH) 39 every 6 Medical 500 mg (six) Branch tablet hours as needed for Pain. aspirin-nhi 2018-0 Yes 1{tbl} Take 1 Un [facility]baldo taminophen- 5-14 tablet by ity of caffeine 17:05: mouth [place] (EXCEDRIN 39 every 6 Medical MIGRAINE) (six) [...] mg by ity of capsule 17:05: mouth. [address] Branch hydrALAZINE 2019-0 Yes 50mg Take 50 mg Univers 50 mg 5-14 by mouth. ity of tablet 17:05: [address] Branch losartan-hy 2018-0 Yes Take by [...] for Chest pain. busPIRone 5 2019- No [id number] 5mg Take 1 Univers mg tablet 5-14 09-08 9102 tablet by ity of 00:00: 00:00 mouth 2 [place] 00 :00 (two) Medical times Branch daily. methIMAzole Yes 10mg Take 10 mg Univers 10 mg 4-24 by mouth ity of tablet 00:00: daily. [address] methIMAzole Yes 10mg Take 10 mg Univers 10 mg 4-24 by mouth ity of tablet 00:00: daily. [address] methIMAzole Yes 10mg Take 10 mg Univers 10 mg 4-24 by mouth ity of tablet 00:00: daily. [address] methIMAzole Yes 10mg Take 10 mg Univers 10 mg 4-24 by mouth ity of tablet 00:00: daily. [address] methIMAzole Yes 10mg Take 10 mg Univers 10 mg 4-24 by mouth ity of tablet 00:00: daily. [address] methIMAzole Yes 10mg Take 10 mg Univers 10 mg 4-24 by mouth ity of tablet 00:00: daily. [address] methIMAzole 2019-0 Yes 10mg Take 10 mg Univers 10 mg 4-24 by mouth ity of tablet 00:00: daily. [facility] methIMAzole 2019-0 Yes 10mg Take 10 mg Univers 10 mg 4-24 by mouth ity of tablet 00:00: daily. [place] [facility] methIMAzole 2019-0 Yes 10mg Take 10 mg Univers 10 mg 4-24 by mouth ity of tablet 00:00: daily. [facility] methIMAzole 2019-0 Yes 10mg Take 10 mg Univers 10 mg 4-24 by mouth ity of tablet 00:00: daily. [place] [facility] methIMAzole 2019-0 Yes 10mg Take 10 mg Univers 10 mg 4-24 by mouth ity of tablet 00:00: daily. [place] [facility] methIMAzole 2019-0 Yes 10mg Take 10 mg Univers 10 mg 4-24 by mouth ity of tablet 00:00: daily. [place] [facility] methIMAzole 2019-0 Yes 10mg Take 10 mg Univers 10 mg 4-24 by mouth ity of tablet 00:00: daily. [place] [facility] methIMAzole 2019-0 Yes 10mg Take 10 mg Univers 10 mg 4-24 by mouth ity of tablet 00:00: daily. [place] [facility] methIMAzole 2019-0 Yes 10mg Take 10 mg Univers 10 mg 4-24 by mouth ity of tablet 00:00: daily. [place] [facility] methIMAzole 2019-0 Yes 10mg Take 10 mg Univers 10 mg 4-24 by mouth ity of tablet 00:00: daily. [place] [facility] methIMAzole 2019-0 Yes 10mg Take 10 mg Univers 10 mg 4-24 by mouth ity of tablet 00:00: daily. [place] [facility] methIMAzole 2019-0 Yes 10mg Take 10 mg Univers 10 mg 4-24 by mouth ity of tablet 00:00: daily. [place] [facility] methIMAzole 2019-0 Yes 10mg Take 10 mg Univers 10 mg 4-24 by mouth ity of tablet 00:00: daily. [place] [facility] methIMAzole 2019-0 Yes 10mg Take 10 mg Univers 10 mg 4-24 by mouth ity of tablet 00:00: daily. [place] [facility] methIMAzole 2019-0 Yes 10mg Take 10 mg Univers 10 mg 4-24 by mouth ity of tablet 00:00: daily. [facility] methIMAzole 2019-0 Yes 10mg Take 10 mg Univers 10 mg 4-24 by mouth ity of tablet 00:00: daily. [place] [facility] methIMAzole 2019-0 Yes 10mg Take 10 mg Univers 10 mg 4-24 by mouth ity of tablet 00:00: daily. [place] [facility] methIMAzole 2018-0 Yes 10mg Take 10 mg Univers 10 mg 4-24 by mouth ity of tablet 00:00: daily. [place] [facility] methIMAzole 2018-0 Yes 10mg Take 10 mg Univers 10 mg 4-24 by mouth ity of tablet 00:00: daily. [place] [facility] methIMAzole 2018-0 Yes 10mg Take 10 mg Univers 10 mg 4-24 by mouth ity of tablet 00:00: daily. [place] [facility] methIMAzole 2018-0 Yes 10mg Take 10 mg Univers 10 mg 4-24 by mouth ity of tablet 00:00: daily. [place] [facility] methIMAzole 2018-0 Yes 10mg Take 10 mg Univers 10 mg 4-24 by mouth ity of tablet 00:00: daily. [place] [facility] methIMAzole 2018-0 Yes 10mg Take 10 mg Univers 10 mg 4-24 by mouth ity of tablet 00:00: daily. [place] [facility] methIMAzole 2018-0 Yes 10mg Take 10 mg Univers 10 mg 4-24 by mouth ity of tablet 00:00: daily. [place] [facility] methIMAzole 2018-0 Yes 10mg Take 10 mg Univers 10 mg 4-24 by mouth ity of tablet 00:00: daily. [place] [facility] methIMAzole 2019-0 Yes 10mg Take 10 mg Univers 10 mg 4-24 by mouth ity of tablet 00:00: daily. [place] [facility] methIMAzole 2019-0 Yes 10mg Take 10 mg Univers 10 mg 4-24 by mouth ity of tablet 00:00: daily. [place] [facility] methIMAzole 2018-0 Yes 10mg Take 10 mg Univers 10 mg 4-24 by mouth ity of tablet 00:00: daily. [place] [facility] methIMAzole 2018-0 Yes 10mg Take 10 mg Univers 10 mg 4-24 by mouth ity of tablet 00:00: daily. [facility] methIMAzole 2019-0 Yes 10mg Take 10 mg Univers 10 mg 4-24 by mouth ity of tablet 00:00: daily. [place] [facility] methIMAzole 2019-0 Yes 10mg Take 10 mg Univers 10 mg 4-24 by mouth ity of tablet 00:00: daily. [place] [facility] methIMAzole 2018-0 Yes 10mg Take 10 mg Univers 10 mg 4-24 by mouth ity of tablet 00:00: daily. [place] [facility] methIMAzole 2018-0 Yes 10mg Take 10 mg Univers 10 mg 4-24 by mouth ity of tablet 00:00: daily. [place] [facility] methIMAzole 2019-0 Yes 10mg Take 10 mg Univers 10 mg 4-24 by mouth ity of tablet 00:00: daily. [place] [facility] methIMAzole 2018-0 Yes 10mg Take 10 mg Univers 10 mg 4-24 by mouth ity of tablet 00:00: daily. [place] [facility] methIMAzole 2018-0 Yes 10mg Take 10 mg Univers 10 mg 4-24 by mouth ity of tablet 00:00: daily. [place] [facility] methIMAzole 2019-0 Yes 10mg Take 10 mg Univers 10 mg 4-24 by mouth ity of tablet 00:00: daily. [place] [facility] methIMAzole 2019-0 Yes 10mg Take 10 mg Univers 10 mg 4-24 by mouth ity of tablet 00:00: daily. [place] [facility] methIMAzole 2018-0 Yes 10mg Take 10 mg Univers 10 mg 4-24 by mouth ity of tablet 00:00: daily. [place] [facility] methIMAzole 2019-0 Yes 10mg Take 10 mg Univers 10 mg 4-24 by mouth ity of tablet 00:00: daily. [place] [facility] methIMAzole 2019-0 Yes 10mg Take 10 mg Univers 10 mg 4-24 by mouth ity of tablet 00:00: daily. [place] [facility] methIMAzole 2019-0 Yes 10mg Take 10 mg Univers 10 mg 4-24 by mouth ity of tablet 00:00: daily. [place] [facility] methIMAzole 2018-0 Yes 10mg Take 10 mg Univers 10 mg 4-24 by mouth ity of tablet 00:00: daily. [facility] methIMAzole 2019-0 Yes 10mg Take 10 mg Univers 10 mg 4-24 by mouth ity of tablet 00:00: daily. [facility] methIMAzole 2019-0 Yes 10mg Take 10 mg Univers 10 mg 4-24 by mouth ity of tablet 00:00: daily. [facility] methIMAzole 2019-0 Yes 10mg Take 10 mg Univers 10 mg 4-24 by mouth ity of tablet 00:00: daily. [facility] methIMAzole 2019-0 Yes 10mg Take 10 mg Univers 10 mg 4-24 by mouth ity of tablet 00:00: daily. [place] [facility] methIMAzole 2019-0 Yes 10mg Take 10 mg Univers 10 mg 4-24 by mouth ity of tablet 00:00: daily. [place] [facility] methIMAzole 2018-0 Yes 10mg Take 10 mg Univers 10 mg 4-24 by mouth ity of tablet 00:00: daily. [place] [facility] methIMAzole 2019-0 Yes 10mg Take 10 mg Univers 10 mg 4-24 by mouth ity of tablet 00:00: daily. [place] [facility] methIMAzole 2019-0 Yes 10mg Take 10 mg Univers 10 mg 4-24 by mouth ity of tablet 00:00: daily. [place] [facility] methIMAzole 2019-0 Yes 10mg Take 10 mg Univers 10 mg 4-24 by mouth ity of tablet 00:00: daily. [place] [facility] methIMAzole 2019-0 Yes 10mg Take 10 mg Univers 10 mg 4-24 by mouth ity of tablet 00:00: daily. [place] [facility] methIMAzole 2019-0 Yes 10mg Take 10 mg Univers 10 mg 4-24 by mouth ity of tablet 00:00: daily. [place] [facility] methIMAzole 2019-0 Yes 10mg Take 10 mg Univers 10 mg 4-24 by mouth ity of tablet 00:00: daily. [place] [facility] methIMAzole 2019-0 Yes 10mg Take 10 mg Univers 10 mg 4-24 by mouth ity of tablet 00:00: daily. [place] [facility] methIMAzole 2019-0 Yes 10mg Take 10 mg [...] BY ity o f 00:00: 2 TIMES [place] DAY Medical Branch doxazosin 2 Yes TAKE 0.5 Un osbaldo mg tablet 4-22 TABLET BY ity o f 00:00: 2 TIMES [place] 00 EVERY DAY Medical Branch doxazosin 2 2019-0 Yes TAKE 0.5 Un [facility] mg tablet 4-22 TABLET BY ity o f 00:00: 2 TIMES [place] 00 EVERY DAY Medical Branch doxazosin 2 2019-0 Yes TAKE 0.5 Un [facility] mg tablet 4-22 TABLET BY ity o f 00:00: 2 TIMES [place] 00 EVERY DAY Medical Branch doxazosin 2 2019-0 Yes TAKE 0.5 Un [facility] mg tablet 4-22 TABLET BY ity o f 00:00: 2 TIMES [place] 00 EVERY DAY Medical Branch doxazosin 2 2019-0 Yes TAKE 0.5 Un [facility] mg tablet 4-22 TABLET BY ity o f 00:00: 2 TIMES [place] 00 EVERY DAY Medical Branch doxazosin 2 2019-0 2020- No TAKE 0.5 U nivers mg tablet 4-22 03-06 TABLET BY ity of 00:00: 00:00 2 TIMES [place] 00 :00 EVERY DAY Medical Branch hydrALAZINE [...] 4-16 TABLET BY ity of tablet 00:00: [facility] THREE Medical TIMES A Branch DAY WITH FOOD hydrALAZINE 2019-0 Yes TAKE 1 Univ ers 100 mg 4-16 TABLET BY ity of tablet 00:00: MOUTH THREE Medical TIMES A Branch DAY WITH FOOD hydrALAZINE 2019-0 Yes TAKE 1 Univ ers 100 mg 4-16 TABLET BY ity of tablet 00:00: [facility] THREE Medical TIMES A Branch DAY WITH FOOD hydrALAZINE 2019-0 Yes TAKE 1 Univ ers 100 mg 4-16 TABLET BY ity of tablet 00:00: [facility] THREE Medical TIMES A Branch DAY WITH FOOD hydrALAZINE 2019-0 Yes TAKE 1 Univ ers 100 mg 4-16 TABLET BY ity of tablet 00:00: [facility] THREE Medical TIMES A Branch DAY WITH FOOD hydrALAZINE 2019-0 2020- No TAKE 1 Uni vers 100 mg 4-16 03-06 TABLET BY ity of tablet 00:00: 00:00 MOUTH [place] 00 :00 THREE Medical TIMES A Branch DAY WITH FOOD spironolact 2019-0 Yes 25mg Take 25 mg Univers one 25 mg 3-22 by mouth ity of tablet 00:00: daily. [place] [facility] spironolact 2019-0 Yes 25mg Take 25 mg Univers one 25 mg 3-22 by mouth ity of tablet 00:00: daily. [place] [facility] spironolact 2019-0 Yes 25mg Take 25 mg Univers one 25 mg 3-22 by mouth ity of tablet 00:00: daily. [facility] spironolact 2019-0 Yes 25mg Take 25 mg Univers one 25 mg 3-22 by mouth ity of tablet 00:00: daily. [facility] spironolact 2019-0 Yes 25mg Take 25 mg Univers one 25 mg 3-22 by mouth ity of tablet 00:00: daily. [place] [facility] spironolact 2019-0 Yes 25mg Take 25 mg Univers one 25 mg 3-22 by mouth ity of tablet 00:00: daily. [place] [facility] spironolact 2019-0 Yes 25mg Take 25 mg Univers one 25 mg 3-22 by mouth ity of tablet 00:00: daily. [place] [facility] spironolact 2019-0 Yes 25mg Take 25 mg Univers one 25 mg 3-22 by mouth ity of tablet 00:00: daily. [place] [facility] spironolact 2019-0 Yes 25mg Take 25 mg Univers one 25 mg 3-22 by mouth ity of tablet 00:00: daily. [place] [facility] spironolact 2019-0 Yes 25mg Take 25 mg Univers one 25 mg 3-22 by mouth ity of tablet 00:00: daily. [place] [facility] spironolact 2019-0 Yes 25mg Take 25 mg Univers one 25 mg 3-22 by mouth ity of tablet 00:00: daily. [place] [facility] spironolact 2019-0 Yes 25mg Take 25 mg Univers one 25 mg 3-22 by mouth ity of tablet 00:00: daily. [place] [facility] spironolact 2019-0 Yes 25mg Take 25 mg Univers one 25 mg 3-22 by mouth ity of tablet 00:00: daily. [place] [facility] spironolact 2019-0 Yes 25mg Take 25 mg Univers one 25 mg 3-22 by mouth ity of tablet 00:00: daily. [place] [facility] spironolact 2019-0 2020- No 25mg Take 25 mg Univers one 25 mg 3-22 03-06 by mouth ity o f tablet 00:00: 00:00 daily. [place] 00 :00 [facility] Immunizations Ordered Filled Immunization Date Status Comments [facility] e Immunization Name Name SARS-COV-2 COVID-19 2020-05-12 Completed Unive rsity of MODERNA VACCINE 00:00:00 [facility] SARS-COV-2 COVID-19 2020-05-12 Completed Unive rsity of MODERNA VACCINE 00:00:00 [facility] SARS-COV-2 COVID-19 2020-04-14 Completed Unive rsity of MODERNA VACCINE 00:00:00 [facility] SARS-COV-2 COVID-19 2020-04-14 Completed Unive rsity of MODERNA VACCINE 00:00:00 [place] [facility] SARS-COV-2 COVID-19 2020-04-14 Completed Unive rsity of MODERNA VACCINE 00:00:00 [place] [facility] ical Branch SARS-COV-2 COVID-19 2020-04-14 Completed Unive rsity of MODERNA VACCINE 00:00:00 [place] [facility] ical Branch SARS-COV-2 COVID-19 2020-04-14 Completed Unive rsity of MODERNA VACCINE 00:00:00 [facility] ical Branch SARS-COV-2 COVID-19 2020-04-14 Completed Unive rsity of MODERNA VACCINE 00:00:00 [facility] ical Branch SARS-COV-2 COVID-19 2020-04-14 Completed Unive rsity of MODERNA VACCINE 00:00:00 [place] [facility] ical Branch SARS-COV-2 COVID-19 2020-04-14 Completed Unive rsity of MODERNA VACCINE 00:00:00 [facility] ical Branch SARS-COV-2 COVID-19 2020-04-14 Completed Unive rsity of MODERNA VACCINE 00:00:00 [facility] ical Branch SARS-COV-2 COVID-19 2020-04-14 Completed Unive rsity of MODERNA VACCINE 00:00:00 [facility] ical Branch SARS-COV-2 COVID-19 2020-04-14 Completed Unive rsity of MODERNA VACCINE 00:00:00 [facility] ical Branch SARS-COV-2 COVID-19 2020-04-14 Completed Unive rsity of MODERNA VACCINE 00:00:00 [facility] ical Branch SARS-COV-2 COVID-19 2020-04-14 Completed Unive rsity of MODERNA VACCINE 00:00:00 [facility] ical Branch SARS-COV-2 COVID-19 2020-04-14 Completed Unive rsity of MODERNA VACCINE 00:00:00 [facility] ical Branch SARS-COV-2 COVID-19 2020-04-14 Completed Unive rsity of MODERNA VACCINE 00:00:00 [facility] ical Branch SARS-COV-2 COVID-19 2020-04-14 Completed Unive rsity of MODERNA VACCINE 00:00:00 [facility] [place] Vital Signs Vital Name Observation Time Observation Value Comments Source Body height 2019-04-20 15:34:00 165.1 cm Universi ty [facility] Body weight 2019-04-20 15:34:00 104.327 kg Universi ty of [place] [facility] BMI 2019-04-20 15:34:00 38.27 kg/m2 Universi ty [facility] Systolic blood 2019-03-23 16:31:00 173 mm[Hg] Univer sity of pressure [facility] Diastolic blood 2019-03-23 16:31:00 90 mm[Hg] Unive rsity of pressure [facility] Heart rate 2019-03-23 16:31:00 64 /min Universi ty [facility] Body temperature 2019-03-23 16:31:00 36.72 [facility] ersity [facility] Respiratory rate 2019-03-23 16:31:00 18 /min [facility] 2019-03-23 16:31:00 165.1 cm Universi ty [facility] Body weight 2019-03-23 16:31:00 97.24 kg Universi ty [facility] BMI 2019-03-23 16:31:00 35.67 kg/m2 Universi ty [facility] Procedures Procedure Date / Time Performing Clinician Source Performed MEDICATION CORRESPONDENCE 2020-01-21 06:01:00 Doctor Unassigned, [facility] [place] [facility] Branch Encounters Start End Encounter Admission Attending Care Care Encounter Source Date/Time Date/Time Type Type Clinicians Facility Department ID 2020-09-07 2020-09-07 [facility] 1.2.840.114 [id number] Univers 00:00:00 00:00:00 Efraín Foster [id number] [id number] [phone] Dc dic[address] 2020-06-18 2020-06-18 [facility] 1.2.840.114 [id number] Univers 00:00:00 00:00:00 Efraín Foster [id number] [id number] [phone] Dc dic[address] 2020-05-12 2020-05-12 Outpatient [facility] [id number] Univers 16:00:00 16:00:00 ALLA ity of [place] [facility] 2020-04-18 2020-04-18 [facility] 1.2.840.114 [id number] Univers 00:00:00 00:00:00 Efraín De [place] [id number] [id number] [phone] [address] 2020-04-18 2020-04-18 [place] [facility] [id number] Univers 00:00:00 00:00:00 Efraín Radford Kristin [id number] [id number] [phone] [address] 2020-04-18 2020-04-18 [facility] 1.2.840.114 [id number] Univers 00:00:00 00:00:00 Efraín Radford Kristin [id number] [id number] [phone] [address] 2020-04-17 2020-04-17 [place] Emma, [facility] 1.2.840.114 [id number] Univers 00:00:00 00:00:00 Efraín Radford Kristin [id number] [id number] [phone] [address] 2020-04-16 2020-04-16 [place] [facility] 1.2.840.114 [id number] Univers 00:00:00 00:00:00 Efraín Tiffany Kristin [id number] [id number] [phone] [address] 2020-04-16 2020-04-16 [facility] 1.2.840.114 [id number] Univers 00:00:00 00:00:00 Efraín Foster [id number] [id number] [phone] [facility] 059 [facility] 2020-04-16 2020-04-16 Refill Emma, [facility] 1.2.840.114 [id number] Univers 00:00:00 00:00:00 Efraín Foster [id number] [id number] [phone] [address] 2020-04-14 2020-04-14 Outpatient [facility] [id number] Univers 15:50:00 15:50:00 ALLA [id number] [facility] 2020-04-14 2020-04-14 Outpatient [facility] [id number] Univers 15:50:00 15:50:00 ALLA [facility] 2020-03-19 2020-03-19 Telephone [facility] 12.840.114 [id number] Univers 00:00:00 00:00:00 Efraín De [place] [id number] [id number] [phone] [address] 2020-02-28 2020-02-28 Telephone [facility] 1.2.840.114 [id number] Univers 00:00:00 00:00:00 Efraín De [place] [id number] [id number] [phone] [address] 2020-02-19 2020-02-19 Refill Emma, [facility] 1.2.840.114 [id number] Univers 00:00:00 00:00:00 Efraín [place] [id number] [id number] [phone] [address] 2020-01-21 2020-01-21 Refill Emma, [facility] 1.2.840.114 [id number] Univers 00:00:00 00:00:00 Efraín Foster [id number] [id number] [phone] [address] 2020-01-21 2020-01-21 Orders Doctor HOANG 1.2.840.114 [id number] Univers 00:00:00 00:00:00 Only Unassigned, JESUSITA [id number] [place]y [place] [facility] [id number] [place] as [phone] [address] 2019-12-25 2019-12-25 [facility] Emma, [facility] 1.2.840.114 [id number] Univers 00:00:00 00:00:00 Efraín Foster [id number] [id number] [phone] [address] 2019-12-24 2019-12-24 [place] [facility] 1.2.840.114 [id number] Univers 00:00:00 00:00:00 Efraín Foster [id number] [id number] [phone] [address] 2019 2019 [facility] 1.2.840.114 [id number] Univers 00:00:00 00:00:00 Efraín Foster [id number] [id number] [phone] [address] 2019-11-23 2019-11-23 [facility] Emma, [facility] 1.2.840.114 [id number] Univers 00:00:00 00:00:00 Efraín Foster [id number] [id number] [phone] [address] 2019-11-23 2019-11-23 Balwinder Carter, [facility] 1.2.840.114 [id number] Univers 00:00:00 00:00:00 Efraín Foster [id number] [id number] [phone] Dc dicva nal [address] [place] [address] 2019-10-29 2019-10-29 [facility] 1.2.840.114 [id number] Univers 00:00:00 00:00:00 Efraín Foster [id number] [id number] [phone] [address] 2019-10-26 2019-10-26 [facility] 1.2.840.114 [id number] Univers 00:00:00 00:00:00 Efraín Foster [id number] [id number] [phone] [address] 2019-09-28 2019-09-28 [facility] 1.2.840.114 [id number] Univers 00:00:00 00:00:00 Efraín Foster [id number] [id number] [phone] 09 [address] 2019-09-28 2019-09-28 [place] [facility] 1.2.840.114 [id number] Univers 00:00:00 00:00:00 Efraín Foster [id number] [phone] [address] 2019-09-25 2019-09-25 Balwinder CarterNEW [facility] 1.2.840.114 [id number] Univers 00:00:00 00:00:00 Efraín Foster [id number] [id number] [phone] [address] 2019-09-10 2019-09-10 Outpatient R [facility] [id number] Univers 13:00:00 13:00:00 [id number] ity [facility] 2019-09-10 2019-09-10 Outpatient R ADRIEN, [facility] [id number] Univers 13:00:00 13:00:00 KRISTEL ity [facility] 2019-08-22 2019-08-22 [facility] 1.2.840.114 [id number] Univers 00:00:00 00:00:00 Efraín Foster [id number] [place] [phone] [address] 2019-07-23 2019-07-23 [facility] 1.2.840.114 [id number] Univers 00:00:00 00:00:00 Efraín Foster [id number] [place] [phone] [address] 2019-07-20 2019-07-20 [facility] 1.2.840.114 [id number] Univers 00:00:00 00:00:00 Efraín De Los [place] 350.1.13.10 [id number] [phone] [address] 2019-07-20 2019-07-20 [facility] 1.2.840.114 [id number] Univers 00:00:00 00:00:00 Efraín De [place] [id number] [id number] [phone] [address] 2019-07-20 2019-07-20 [facility] 1.2.840.114 [id number] Univers 00:00:00 00:00:00 Efraín De [place] 350.1.13.10 [id number] [phone] Dc dical nal 092 [facility] 2019-07-19 2019-07-19 Telephone [facility] 1.2.840.114 [id number] Univers 00:00:00 00:00:00 Efraín Tiffany Foster 350.1.13.10 [place] [phone] [facility] [address] [place] [address] 2019-07-18 2019-07-18 Refill [facility] 1.2.840.114 [id number] Univers 00:00:00 00:00:00 Efraín Radford Kristin 350.1.13.10 [id number] [phone] [facility] 092 [facility] 2019-07-06 2019-07-06 Telephone [facility] 1.2.840.114 [id number] Univers 00:00:00 00:00:00 Efraín Tiffany Foster [id number] [id number] [phone] [address] 2019-07-05 2019-07-05 Refill [facility] 1.2.840.114 [id number] Univers 00:00:00 00:00:00 [facility] 350.1.13.10 [place] of [place] [id number] [place] Professio [phone] [facility] 044 [facility] 2019-07-03 2019-07-03 Telemedici [facility] 1.2.840.114 [id number] Univers 08:05:45 10:48:54 ne Visit Efraín Foster 350.1.13.10 [place] [phone] [facility] 092 [facility] 2019-07-03 2019-07-03 Outpatient EFRAÍN CARTER [facility] [id number] Univers 09:20:00 09:20:00 EFRAÍN CARTER [id number] ity [facility] 2019-07-03 2019-07-03 Outpatient R EFRAÍN CARTER [facility] [id number] Univers 09:20:00 09:20:00 EFRAÍN CARTER ity [facility] 2019-06-19 2019-06-19 Telephone Emma [facility] 1.2.840.114 [id number] Univers 00:00:00 00:00:00 Efraín Foster 350.1.13.10 [place] [phone] [address] 2019-06-18 2019-06-18 Jonathan Carter [facility] 1.2.840.114 [id number] Univers 00:00:00 00:00:00 Efraín Foster 350.1.13.10 [place] [phone] [address] 2019-05-28 2019-05-28 Refill [facility] 1.2.840.114 [id number] Univers 00:00:00 00:00:00 Efraín Foster 350.1.13.10 [place] [phone] [address] 2019-05-16 2019-05-16 Jonathan CarterNEW [facility] 1.2.840.114 [id number] Univers 00:00:00 00:00:00 Efraín Foster 350.1.13.10 [place] [phone] [facility] [address] [place] [address] 2019-05-13 2019-05-13 Refalfonzo Saunders [facility] 1.2.840.114 [id number] Univers 00:00:00 00:00:00 [facility] 350.1.13.10 [place] [id number] [place] [phone] [address] One 2019-05-13 2019-05-13 Refalfonzo CarterNEW [facility] 1.2.840.114 [id number] Univers 00:00:00 00:00:00 Efraín Gene [place] 350.1.13.10 [id number] [phone] Dc michele garza 092 [facility] 2019-05-09 2019-05-09 Outpatient R [facility] [id number] Univers 14:15:00 14:15:00 [id number] ity [facility] 2019-05-09 2019-05-09 [facility] [id number] Univers 14:15:00 14:15:00 TAMARA ity [facility] 2019-05-09 2019-05-09 Telephone [facility] 1.2.840.114 [id number] Univers 00:00:00 00:00:00 [facility] 350.1.13.10 [place] [id number] [place] [phone] Dc shirleytimothy garza 044 [facility] 2019-05-09 2019-05-09 Telephone Gifty [facility] 1.2.840.114 [id number] Univers 00:00:00 00:00:00 Tamara D SPECIALTY 350.1.13.10 [place] [phone] Dc shirleytimothy PASTORY 370 [facility] 2019-05-08 2019-05-08 Telephone [facility] 1.2.840.114 [id number] Univers 00:00:00 00:00:00 [facility] 350.1.13.10 [place] [id number] [place] [phone] Dc shirleytimothy greg 044 [facility] 2019-04-27 2019-04-27 Outpatient R [facility] [id number] Univers 10:30:00 10:30:00 WONDIFUL [id number] ity o f [facility] 2019-04-20 2019-04-20 Office Kiran [facility] 1.2.840.114 [id number] Univers 09:23:30 19:21:09 Visit [facility] 350.1.13.10 [place] 4.2.7.2.686 [place] [phone] Dc dical nal 044 [place] [facility] 2019-04-20 2019-04-20 Sherri SAUNDERS [facility] [id number] Univers 09:00:00 09:00:00 WONDIFUL ity o f [facility] 2019-04-19 2019-04-19 [place] [facility] 1.2.840.114 [id number] Univers 00:00:00 00:00:00 Efraín Foster 350.1.13.10 [place] [phone] Dc dical nal 092 [facility] 2019-04-15 2019-04-15 Refill [facility] 1.2.840.114 [id number] 071 [facility] 00:00:00 00:00:00 Efraín Foster 350.1.13.10 [place] [phone] Dc dical nal 092 [facility] 2019-03-23 2019-03-23 [facility] 1.2.840.114 [id number] 744 [facility] 09:58:29 11:26:48 Visit Efraín Foster 350.1.13.10 [place] [phone] Dc dicva nal [address] [place] [address] 2019-03-22 2019-03-22 [facility] 1.2.840.114 [id number] Univers 00:00:00 00:00:00 Efraín Foster 350.1.13.10 [place] [phone] Dc dicva nal [address] [place] [address] 2019-03-22 2019-03-22 [place] [facility] 1.2.840.114 [id number] [facility] 00:00:00 00:00:00 Efraín Foster 350.1.13.10 [place] [phone] Dc dical nal [address] [place] [address] 2019-03-16 2019-03-16 [facility] 1.2.840.114 [id number] Univers 00:00:00 00:00:00 Efraín Fostre 350.1.13.10 [place] [phone] Dc dic[address] 2019-03-07 2019-03-07 [facility] 1.2.840.114 [id number] Univers 00:00:00 00:00:00 Efraín Foster 350.1.13.10 [place] [phone] Dc dic[address] 2018-09-08 2018-09-08 [facility] 1.2.840.114 [id number] Univers 00:00:00 00:00:00 Efraín Foster 350.1.13.10 [place] [phone] [address] Results This patient has no known results.
[2021-05-16 18:53] LABS: Absolute Lymphocytes (CBC) 0.8 K/uL (0.7-4.9); Hematocrit 41.8 % (36.0-45.0); Lymphocytes % 8.6 % (15.3-44.8); MPV 7.9 fL (7.6-11.3)
[2021-05-16] MEDS ORDERED: MORPHINE 4 MG/ML SYR ONE (19:07)
[2021-05-16] MEDS ORDERED: ONDANSETRON 4 MG/2 ML VIAL ONE (19:07)
[2021-05-16] MEDS ORDERED: NA CHLORIDE 0.9% 500 ML ONE (19:07)
[2021-05-16 19:38] LABS: Albumin 2.8 g/dL (3.4-5.0); Bilirubin Total 0.6 mg/dL (0.2-1.0); Protein, Total 8.3 g/dL (6.4-8.2)
[2021-05-16 19:39] LABS: Potassium 3.8 mmol/L (3.5-5.1)
[2021-05-16 20:14] LABS: Blood Morphology Comment NOT SEEN (NOT SEEN); Platelet Estimate ADEQ
--- NOTE | 2021-05-17 01:06 | ER ---
Nurse's Notes [facility] Name: Blanka Ferrell Age: 70 yrs Sex: Female : 1950 Arrival Date: 05/16/2021 Time: 18:34 Bed 8 Private MD: Diagnosis: Bowel obstruction;Large bowel obstruction at junction of descending and sigmoid colon Presentation: 05/16 18:25 Chief complaint: Patient states: abdominal pain x1 week with no bowel movement x1 week jg9 and worsening abdominal mass. Coronavirus screen: Vaccine status: Patient reports receiving the 2nd dose of the covid vaccine. Ebola Screen: Patient negative for fever greater than or equal to 101.5 degrees Fahrenheit, and additional compatible Ebola Virus Disease symptoms Patient denies exposure to infectious person. Patient denies travel to an Ebola-affected area in the 21 days before illness onset. Initial Sepsis Screen: Does the patient meet any 2 criteria? HR > 90 bpm. No. Patient's initial sepsis screen is negative. Does the patient have a suspected source of infection? No. Patient's initial sepsis screen is negative. Risk Assessment: Do you want to hurt yourself or someone else? Patient reports no desire to harm self or others. Onset of symptoms is unknown. 18:25 Method Of Arrival: EMS: [facility] jg9 18:25 Acuity: THALIA 3 jg9 Triage Assessment: 18:25 General: Appears in no apparent distress. Behavior is calm, cooperative. Pain: jg9 Complains of pain in abdomen-mid abd pain/umbiliucs/mass. GI: Reports constipation, abdominal distention. Historical: - Allergies: 18:38 Imitrex; jg9 - PMHx: 18:38 Anxiety; Diabetes - IDDM; Hypertension; Migraines; Thyroid problem; TIA; jg9 - PSHx: 18:38 section; Cholecystectomy; hysterectomy; jg9 - Immunization history:: Adult Immunizations Client reports receiving the 2nd dose of the Covid vaccine, Pneumococcal vaccine is not up to date, Flu vaccine is not up to date. - Social history:: Smoking status: Patient denies any tobacco usage or history of. Screenin:39 Abuse screen: Denies threats or abuse. Denies injuries from another. Nutritional jg9 screening: No deficits noted. Tuberculosis screening: No symptoms or risk factors identified. Fall Risk None identified. Assessment: 18:40 GI: Bowel sounds present X 4 quads. Abd is rigid Mass noted in right upper quadrant, jg9 left upper quadrant, right lower quadrant and left lower quadrant. 19:27 General: Appears in no apparent distress. Behavior is calm, cooperative. Pain: ke1 Complains of pain in abdomen Pain currently is 7 out of 10 on a pain scale. at worst was 10 out of 10 on a pain scale. level that patient reports is acceptable is 5 out of 10 on a pain scale. GI: Abdomen is distended, obese, hard Bowel sounds present X 4 quads. Abd is rigid X 4 quads. Mass noted in right upper quadrant, left upper quadrant, right lower quadrant and left lower quadrant. : No deficits noted. EENT: No deficits noted. Musculoskeletal: No deficits noted. 20:10 Reassessment: Patient finished with drinking contrast , CT notified. ke1 21:00 Reassessment: BM x 1 loose stool. ke1 22:36 Reassessment: patient in CT. ke1 23:15 Reassessment: No changes from previously documented assessment. Patient is alert, ke1 oriented x 3, equal unlabored respirations, skin warm/dry/pink. 05/17 01:51 Reassessment: [facility] called, they will call me back. ke1 02:10 Reassessment: Report given to nurse RICHIE. ke1 Vital Signs: 05/16 18:25 BP 235 / 144; Pulse 121; Resp 22 S; Temp 98.6(O); Pulse Ox 97% on R/A; Weight 102.06 kg jg9 (R); Height 5 ft. 5 in. (165.10 cm); Pain 7/10; 19:24 BP 214 / 106; Pulse 102; Resp 82; Pulse Ox 94% on R/A; ke1 20:09 BP 193 / 110; Pulse 102; Resp 18; Pulse Ox 93% on R/A; ke1 21:00 BP 205 / 181; Pulse 107; Resp 18; Pulse Ox 94% on R/A; ke1 23:24 BP 200 / 112; Pulse 88; Resp 18; Pulse Ox 95% on R/A; ke1 23:36 BP 184 / 119; Pulse 104; Resp 18; Pulse Ox 93% on R/A; ke1 05/17 01:00 BP 156 / 116; Pulse 116; Resp 18; Pulse Ox 94% on R/A; ke1 01:25 BP 159 / 103; Pulse 90; Resp 18; Pulse Ox 93% ; ke1 01:43 BP 187 / 103; Pulse 89; Resp 18; Pulse Ox 93% ; ke1 01:44 BP 166 / 92; Pulse 87; Resp 18; Pulse Ox 93% ; ke1 03:00 BP 160 / 94; Pulse 84; Resp 18; Pulse Ox 94% on R/A; tw5 05/16 18:25 Body Mass Index 37.44 (102.06 kg, 165.10 cm) jg9 ED Course: 05/16 18:34 Patient arrived in ED. jg9 18:35 Bailey Bowman, RN is Primary Nurse. jg9 18:38 Triage completed. jg9 18:40 Arm band placed on right wrist. jg9 18:41 Patient has correct armband on for positive identification. Bed in low position. Call jg9 light in reach. Side rails up X 1. 18:42 Jairo Dave NP is PHCP. pm1 18:42 Bobby Soliman MD is Attending Physician. pm1 18:47 CBC with Diff Sent. jenkins 18:47 CMP Sent. jenkins 18:47 Lipase Sent. jenkins 18:54 No provider procedures requiring assistance completed. jenkins 19:02 Inserted saline lock: 22 gauge in left hand, using aseptic technique. j9 19:20 Primary Nurse role handed off by Bailey Bowman, RE 9 19:23 Jennifer Torres, RE is Primary Nurse. ke1 22:11 Inserted saline lock: 20 gauge in right forearm, using aseptic technique. Ultrasound tw5 guided IV. 22:53 CT Abd/Pelvis - PO and IV Contrast In Process Unspecified. EDMS 05/17 03:26 Patient transferred, IV remains in place. tw5 Administered Medications: 05/16 19:06 Drug: Zofran (Ondansetron) 4 mg Route: IVP; Site: left hand; jenkins 19:07 Follow up: Response: No adverse reaction jenkins 19:07 Drug: NS 0.9% 500 ml Route: IV; Rate: bolus; Site: left hand; jenkins 19:50 Follow up: IV Status: Completed infusion tw5 19:07 Drug: morphine 4 mg Route: IVP; Site: left hand; jenkins 19:07 Follow up: Response: No adverse reaction jenkins 19:12 Follow up: Response: No adverse reaction j9 05/17 01:10 Drug: morphine 4 mg Route: IVP; Site: left hand; ke1 01:25 Follow up: Response: Pain is decreased tw5 01:22 Drug: Labetalol 10 mg {Note: per HAT MODEL give 10 mg first + 10 mg \T\ 0144 am.} Route: IVP; ke1 Infused Over: 2 mins; Site: left hand; 02:00 Follow up: Response: Marked relief of symptoms; Blood pressure is lowered tw5 Intake: 05/16 21:00 PO: 0ml; Total: 0ml. ke1 Output: 21:00 Stool: 1 (Loose Stool) ; Total: 0ml. ke1 Outcome: 05/17 01:06 ER care complete, transfer ordered by . pm1 03:25 Transferred by ground EMS Note: [facility] tw5 03:25 Condition: stable 03:25 Instructed on the need for transfer. 03:28 Patient left the ED. tw5 Signatures: Dispatcher [employer] EDMS Jairo Dave NP HAT MODEL pm1 Zahida Flood tw5 Melissa Enriquez Bailey De Leon RN RN jg9 Brooke Maurice RN RN ha Ebrottie, Kouassi, RN RN ke1 Corrections: (The following items were deleted from the chart) 05/16 18:41 18:40 GI: Bowel sounds present X 4 quads. Abd is soft Abdomen is tender to palpation X jg9 4 quads. jg9 05/17 01:29 01:25 BP 159 / 103; ke1 ke1 01:44 01:22 Labetalol 10 mg IVP in left hand over 2 mins ke1 ke1
--- NOTE | 2021-05-17 01:06 | EDPHYS ---
Physician Documentation [facility] Name: Blanka Ferrell Age: 70 yrs Sex: Female : 1950 Arrival Date: 05/16/2021 Time: 18:34 Bed 8 Private MD: ED Physician Bobby Soliman HPI: 05/16 19:07 This 70 yrs old Black Female presents to ER via EMS with complaints of Abdominal Pain - pm1 constipation, nausea, abdominal pain. 19:07 The patient presents with abdominal pain in the upper abdomen. Onset: The pm1 symptoms/episode began/occurred 1 week(s) ago. The symptoms do not radiate. Associated signs and symptoms: Pertinent positives: diarrhea, nausea, Pertinent negatives: chest pain, shortness of breath, vomiting. The symptoms are described as achy. Modifying factors: The symptoms are alleviated by nothing, the symptoms are aggravated by nothing. Severity of pain: in the emergency department the pain is actually worse. The patient has not recently seen a physician, the patient's primary care provider is Dr. Dr Jacobs. Historical: - Allergies: 18:38 Imitrex; jg9 - PMHx: 18:38 Anxiety; Diabetes - IDDM; Hypertension; Migraines; Thyroid problem; TIA; jg9 - PSHx: 18:38 section; Cholecystectomy; hysterectomy; jg9 - Immunization history:: Adult Immunizations Client reports receiving the 2nd dose of the Covid vaccine, Pneumococcal vaccine is not up to date, Flu vaccine is not up to date. - Social history:: Smoking status: Patient denies any tobacco usage or history of. ROS: 19:07 Constitutional: Negative for fever, chills, and weight loss, Cardiovascular: Negative pm1 for chest pain, palpitations, and edema, Respiratory: Negative for shortness of breath, cough, wheezing, and pleuritic chest pain. 19:07 Back: Negative for injury and pain, : Negative for injury, bleeding, discharge, and swelling, MS/Extremity: Negative for injury and deformity, Skin: Negative for injury, rash, and discoloration, Neuro: Negative for headache, weakness, numbness, tingling, and seizure. 19:07 Abdomen/GI: Positive for abdominal pain, nausea, constipation, Negative for vomiting, diarrhea. 19:07 All other systems are negative. Exam: 19:07 Constitutional: This is a well developed, well nourished patient who is awake, alert, pm1 and in no acute distress. Head/Face: Normocephalic, atraumatic. 19:07 Back: No spinal tenderness. No costovertebral tenderness. Full range of motion. Skin: Warm, dry with normal turgor. Normal color with no rashes, no lesions, and no evidence of cellulitis. MS/ Extremity: Pulses equal, no cyanosis. Neurovascular intact. Full, normal range of motion. 19:07 Eyes: Exam is negative for acute changes, Periorbital structures: appear normal, Extraocular movements: no acute changes, Conjunctiva: no acute changes. 19:07 ENT: Exam is negative for acute changes, Mouth: no acute changes, Lips: normal, moist, Oral mucosa: normal, pink and intact, moist. 19:07 Neck: Exam negative for acute changes. 19:07 Cardiovascular: Exam negative for acute changes, Rate: tachycardic, Rhythm: regular, Pulses: no pulse deficits are appreciated, Heart sounds: normal, Edema: is not appreciated. 19:07 Respiratory: Exam negative for acute changes, respiratory distress, shortness of breath, Breath sounds: are clear throughout. 19:07 Abdomen/GI: Inspection: obese Palpation: soft, in all quadrants, moderate abdominal tenderness, in the right upper quadrant and left upper quadrant. 19:07 Neuro: Exam negative for acute changes, Orientation: is normal, Mentation: is normal, Motor: is normal, moves all fours. Vital Signs: 18:25 BP 235 / 144; Pulse 121; Resp 22 S; Temp 98.6(O); Pulse Ox 97% on R/A; Weight 102.06 kg jg9 (R); Height 5 ft. 5 in. (165.10 cm); Pain 7/10; 19:24 BP 214 / 106; Pulse 102; Resp 82; Pulse Ox 94% on R/A; ke1 20:09 BP 193 / 110; Pulse 102; Resp 18; Pulse Ox 93% on R/A; ke1 21:00 BP 205 / 181; Pulse 107; Resp 18; Pulse Ox 94% on R/A; ke1 23:24 BP 200 / 112; Pulse 88; Resp 18; Pulse Ox 95% on R/A; ke1 23:36 BP 184 / 119; Pulse 104; Resp 18; Pulse Ox 93% on R/A; ke1 05/17 01:00 BP 156 / 116; Pulse 116; Resp 18; Pulse Ox 94% on R/A; ke1 01:25 BP 159 / 103; Pulse 90; Resp 18; Pulse Ox 93% ; ke1 01:43 BP 187 / 103; Pulse 89; Resp 18; Pulse Ox 93% ; ke1 01:44 BP 166 / 92; Pulse 87; Resp 18; Pulse Ox 93% ; ke1 03:00 BP 160 / 94; Pulse 84; Resp 18; Pulse Ox 94% on R/A; tw5 05/16 18:25 Body Mass Index 37.44 (102.06 kg, 165.10 cm) jg9 MDM: 05/16 18:42 Patient medically screened. pm1 19:24 Data reviewed: vital signs. Data interpreted: Pulse oximetry: on room air is 97 %. pm1 Interpretation: normal. 23:54 Physician consultation: Emmett Yusuf MD was called at 23:54, Paged by combination operator. pm1 05/17 00:12 Physician consultation: Jean Paul Gordon MD regarding consult, patient's condition, He is pm1 her GI MD but he is out of town and not concierge. He recommends transfer of the patient. 00:16 ED course: Patient and daughter would [facility]. pm1 00:49 ED course: General surgeon at [facility] declined due to need for colorectal surgery. pm1 01:13 Physician consultation: Colorectal surgeon ER MD regarding regarding transfer, pm1 patient's condition, Will accept patient once blood pressure is appropriate for med/surg bed. 05/16 18:40 Order name: CBC with Diff; Complete Time: 20:20 rn 05/16 18:40 Order name: CMP; Complete Time: 19:59 rn 05/16 18:40 Order name: Lipase; Complete Time: 19:59 rn 05/16 18:41 Order name: CT Abd/Pelvis - PO and IV Contrast rn 05/16 18:57 Order name: Manual Differential; Complete Time: 20:20 EDMS 05/16 23:45 Order name: SARS-COV-2 RT PCR (Document "Date of Onset" if Symptomatic); Complete Time: ke 01:33 05/16 18:40 Order name: IV Saline Lock; Complete Time: 19:02 rn 05/16 18:40 Order name: Labs collected and sent; Complete Time: 18:47 rn Administered Medications: 05/16 19:06 Drug: Zofran (Ondansetron) 4 mg Route: IVP; Site: left hand; jenkins 19:07 Follow up: Response: No adverse reaction jenkins 19:07 Drug: NS 0.9% 500 ml Route: IV; Rate: bolus; Site: left hand; jenkins 19:50 Follow up: IV Status: Completed infusion tw5 19:07 Drug: morphine 4 mg Route: IVP; Site: left hand; jenkins 19:07 Follow up: Response: No adverse reaction jenkins 19:12 Follow up: Response: No adverse reaction jg9 05/17 01:10 Drug: morphine 4 mg Route: IVP; Site: left hand; ke1 01:25 Follow up: Response: Pain is decreased tw5 01:22 Drug: Labetalol 10 mg {Note: per WELDING MACHINE OPERATOR GAS give 10 mg first + 10 mg \\T\\ 0144 am.} Route: IVP; ke1 Infused Over: 2 mins; Site: left hand; 02:00 Follow up: Response: Marked relief of symptoms; Blood pressure is lowered tw5 Disposition: 10:51 Co-signature as Attending Physician, Bobby Solmian MD. rn Disposition Summary: 05/17/21 01:06 Transfer Ordered Transfer Location: Other Acute Care Facility pm1 Reason: Specialty pm1 Condition: Stable pm1 Problem: new pm1 Symptoms: have improved pm1 Accepting Physician: (05/17/21 03:28) tw5 Diagnosis - Bowel obstruction pm1 - Large bowel obstruction at junction of descending and sigmoid colon pm1 Forms: - Medication Reconciliation Form pm1 - SBAR form pm1 Signatures: Dispatcher [employer] EDBobby Mckeon MD MD rn Attema, Lee, YEAST PUSHER-C YEAST PUSHER-Cla1 Jairo Dave, WELDING MACHINE OPERATOR GAS WELDING MACHINE OPERATOR GAS pm1 Zahida Flood tw5 Bailey Bowman RN RN jg9 Brooke Maurice RN RN jenkins Jennifer Torres RN RN ke1 Corrections: (The following items were deleted from the chart) 01:30 01:06 pm1 pm1 03:28 01:30 pm1 tw5
[2021-05-17] MEDS ORDERED: LABETALOL 20 MG/4ML SYRINGE IV ONE (01:21)
[2021-05-17 03:59] VITALS: BP 160/94; O2SAT 94
--- NOTE | 2021-05-17 18:24 | RAD REPORT ---
EXAM DESCRIPTION: Abdomen Pelvis W Contrast CLINICAL HISTORY: 70 years Female, no BM for 1 week;Abd pain TECHNIQUE: Helical CT axial images are obtained from the lung bases to the pubic symphysis with IV c ontrast. Oral contrast was administered. Multiplanar reconstruction. This exam was performed accordin g to our departmental dose-optimization program, which includes automated exposure control, adjustmen t of the mA and/or kV according to patient size and/or use of iterative reconstruction technique. COMPARISON: 01/28/2019 FINDINGS: LUNG BASES: No basilar consolidation or effusions. LIVER: Normal in size. Normal attenuation. No focal masses. HEPATOBILIARY: Status post cholecystectomy. No intra- or extrahepatic ductal dilatation. SPLEEN: Normal size. PANCREAS: Normal size and contour. No focal mass. ADRENAL GLANDS: Normal size. No adrenal masses. KIDNEYS: Bilateral kidneys are normal in size without obstructing calculi or hydronephrosis. No nep hrolithiasis. Right midpole exophytic 1.0 cm simple renal cyst, no further workup is warranted. No fo louie solid mass. BOWEL AND MESENTERY: Small volume ascites. Moderate diffuse colonic dilatation from cecum to the leve l of the distal descending colon at its junction with the sigmoid colon. Distended colon is predomina ntly filled with fluid. Best seen on series 601, image 63, at the junction of the descending and sigm oid colon there is abrupt transition in caliber and this in part may be secondary to stricture at thi s level versus neoplasm. Mild diffuse small bowel dilatation. No gastric distention. Descending and s igmoid colon diverticulosis. The appendix is not identified. No abnormal mesenteric lymphadenopathy. No pneumoperitoneum. RETROPERITONEUM: Normal caliber abdominal aorta without aneurysm. Mild tortuosity abdominal aorta ext ending into bilateral iliac vasculature. No abnormal retroperitoneal lymphadenopathy. PELVIS: Urinary bladder is unremarkable. Status post hysterectomy. ABDOMINAL WALL: Status post ventral abdominal hernia repair with mesh. BONES: No suspicious osseous lytic or blastic lesions seen. IMPRESSION: 1. Moderate diffuse colonic dilatation from cecum to the level of the distal descendin g colon at its junction with the sigmoid colon. Mild diffuse small bowel dilatation. 2. Abrupt transition in caliber at the junction of descending and sigmoid colon, this in part may b e secondary to stricture from prior bouts of diverticulitis versus neoplasm. Recommend correlation colonoscopy. 3. Small volume ascites. 4. Descending and sigmoid colon diverticulosis. 5. Status post cholecystectomy and hysterectomy. Status post ventral abdominal hernia repair with m esh. Electronically signed by: Severino Nicole MD 05/16/2021 11:16 PM CDT Due to temporary technical issues with the PACS/Fluency reporting system, reports are being signed by the in house radiologists without review as a courtesy to insure prompt reporting. The interpreting radiologist is fully responsible for the content of the report.
== END 2021-05-17 03:28 ==
LOC: ER 18:28
DX: K56.609 Unspecified intestinal obstruction, unspecified as to partial versus complete obstruction (principal); E11.9 Type 2 diabetes mellitus without complications; I10 Essential (primary) hypertension; Z88.8 Allergy status to other drugs, medicaments and biological substances; Z20.822 Contact with and (suspected) exposure to COVID-19
CPT/HCPCS: 96361; 85025; 36415; 83690; 80053; 74177; 96375; 96374; 99285; U0003; Q9967; J7040; J2405

== ENCOUNTER 2021-06-18 22:06 | Inpatient (IN) | payer OTHER ==
--- OUTSIDE RECORDS SUMMARY | 2021-06-18 22:17 | XMS REPORT | Continuity of Care Document ---
:1950 Author Organization [facility] t Address [address] [place] [address] Care Team Providers Name Role Phone KIRAN, Shaista Primary Care Physician Unavailable TIFFANY CARTER Attending Clinician Unavailable TIFFANY CARTER Attending Clinician Unavailable Ahmed, X Attending Clinician Unavailable Tiffany Carter MD Attending Clinician Alissa BREWER Attending Clinician Unavailable Doctor Unassigned, Sheri Attending Clinician Unavailable ADRIEN Attending Clinician Unavailable Shaista Beck MD Attending Clinician Moises BOWERS Attending Clinician Unavailable Moises Gary Attending Clinician Shaista BECK Attending Clinician Unavailable Elayne, X Admitting Clinician Unavailable Payers Payer Name Policy Type Policy Number Effective Date Expiration Date Zander alarcon [facility] MEDICAREDIRECT [id number] 2021 PFFS 00:00:00 [facility] [id number] 2021 [facility] [place] P[place] 00:00:00 [place] [id number] 2021 00:00:00 Problems Condition Condition Condition Status Onset Resolution Last Treating Co mments Source Name Details Category Date Date Treatment Clinician Date Grief Grief Disease Active 2019-0 Univers 3-06 ity of 00:00: [address] Reactive Reactive Disease Active Unive rs depression depression 06 it y of 00:00: [place] [facility] No known No known Disease Unive rs active active ity of problems problems [facility] Allergies, Adverse Reactions, Alerts Allergy Allergy Status Severity Reaction(s) Onset Inactive Treating Comm ents Source Name Type Date Date Clinician No Known DA Active U [facility] 4 [place] [facility] 00:00: [facility] 00 [facility] NO KNOWN Drug Active Univers ALLERGIE Class ity of S [facility] Social History Social Habit Start Date Stop Date Quantity Comments Source Exposure to Not sure [facility] SARS-CoV-2 [facility] (event) Branch Alcohol intake 2019-04-20 2019-04-20 Current [facility] 00:00:00 00:00:00 non-drinker of [facility] alcohol [place] (finding) Tobacco use and 2019-04-20 2019-04-20 Never used Universit y of exposure 00:00:00 00:00:00 [facility] [birth year] Universit y of 00:00:00 00:00:00 [facility] Smoking Status Start Date Stop Date Source Never smoker [facility] Medications Ordered Filled Start Stop Current Ordering Indication Dosage Frequency Signature Comments Components Source Medication Medication Date Date Medication? Clinician (SIG) Name Name AMITRIPTYLI Yes TAKE 1 [facility] ers [place] 25 mg 5-05 TABLET BY ity of tablet 00:00: MOUTH EVERYDAY Medical AT BEDTIME Branch AMITRIPTYLI Yes TAKE 1 Univ ers [place] 25 mg 5-05 TABLET BY ity of tablet 00:00: MOUTH EVERYDAY Medical AT BEDTIME Branch butorphanol 2020-0 Yes 2745 INHALE ONE Univers 10 mg/mL 3-05 SPRAY IN ity of nasal spray 00:00: ONE [facility] Medical EVERY 8 Branch HOURS NEEDED FOR HEADACHE Indication s: chronic pain, headache butorphanol 2020-0 Yes 2745 INHALE ONE Univers 10 mg/mL 3-05 SPRAY IN ity of nasal spray 00:00: ONE [facility] Medical EVERY 8 Branch HOURS NEEDED FOR HEADACHE Indication s: chronic pain, headache butorphanol 2020-0 Yes 2745 INHALE ONE Univers 10 mg/mL 3-05 SPRAY IN ity of nasal spray 00:00: ONE [facility] Medical EVERY 8 Branch HOURS NEEDED FOR HEADACHE Indication s: chronic pain, headache butorphanol 2021-0 Yes 2745 USE 1 Unive rs 10 mg/mL 2-05 SPRAY IN ity of nasal spray 00:00: ONE [place] NOSTRIL Medical EVERY 8 Branch HOURS NEEDED FOR HEADACHE Indication s: acute pain, chronic pain, Headache butorphanol 2021-0 Yes 2745 USE 1 Unive rs 10 mg/mL 2-05 SPRAY IN ity of nasal spray 00:00: ONE [place] NOSTRIL Medical EVERY 8 Branch HOURS NEEDED FOR HEADACHE Indication s: acute pain, chronic pain, Headache butorphanol 2021-0 Yes 2745 USE 1 Unive rs 10 mg/mL 2-05 SPRAY IN ity of nasal spray 00:00: ONE [place] NO[facility]IL Medical EVERY 8 Branch HOURS NEEDED FOR HEADACHE Indication s: acute pain, chronic pain, Headache butorphanol 2021-0 Yes 2745 USE 1 Unive rs 10 mg/mL 2-05 SPRAY IN ity of nasal spray 00:00: ONE [place] NO[facility]IL Medical EVERY 8 Branch HOURS NEEDED FOR HEADACHE Indication s: acute pain, chronic pain, Headache butorphanol 2021-0 Yes 2745 USE 1 Unive rs 10 mg/mL 2-05 SPRAY IN ity of nasal spray 00:00: ONE [place] NO[facility] Medical EVERY 8 Branch HOURS NEEDED FOR HEADACHE Indication s: acute pain, chronic pain, Headache butorphanol 2021-0 Yes 2745 USE 1 Unive rs 10 mg/mL 2-05 SPRAY IN ity of nasal spray 00:00: ONE [place] NO[facility] Medical EVERY 8 Branch HOURS NEEDED FOR HEADACHE Indication s: acute pain, chronic pain, Headache butorphanol 2021-0 Yes 2745 USE 1 Unive rs 10 mg/mL 2-05 SPRAY IN ity of nasal spray 00:00: ONE [place] [facility] Medical EVERY 8 Branch HOURS NEEDED FOR HEADACHE Indication s: acute pain, chronic pain, Headache butorphanol 2021-0 Yes 2745 USE 1 Unive rs 10 mg/mL 2-05 SPRAY IN ity of nasal spray 00:00: ONE [place] [facility]IL Medical EVERY 8 Branch HOURS NEEDED FOR HEADACHE Indication s: acute pain, chronic pain, Headache butorphanol 2021-0 Yes 2745 USE 1 Unive rs 10 mg/mL 2-05 SPRAY IN ity of nasal spray 00:00: ONE [place] [facility] Medical EVERY 8 Branch HOURS NEEDED FOR HEADACHE Indication s: acute pain, chronic pain, Headache butorphanol 2021-0 Yes 2745 USE 1 Unive rs 10 mg/mL 2-05 SPRAY IN ity of nasal spray 00:00: ONE [place] [facility] Medical EVERY 8 Branch HOURS NEEDED FOR HEADACHE Indication s: acute pain, chronic pain, Headache butorphanol 2021-0 Yes 2745 USE 1 Unive rs 10 mg/mL 2-05 SPRAY IN ity of nasal spray 00:00: ONE [place] NO[facility]IL Medical EVERY 8 Branch HOURS NEEDED FOR HEADACHE Indication s: acute pain, chronic pain, Headache butorphanol 2021-0 2021- No 2745 USE 1 Univ ers 10 mg/mL 2-05 03-05 SPRAY IN ity of nasal spray 00:00: 00:00 [facility] 00 : NOSTRIL Medical EVERY 8 Branch HOURS NEEDED FOR HEADACHE Indication s: acute pain, chronic pain, Headache butorphanol 2021-0 2021- No 2745 USE 1 Univ ers 10 mg/mL 2-05 03-05 SPRAY IN ity of nasal spray 00:00: 00:00 [facility] 00 : NOSTRIL Medical EVERY 8 Branch HOURS NEEDED FOR HEADACHE Indication s: acute pain, chronic pain, Headache butorphanol 2021-0 Yes 2745 USE 1 Unive rs 10 mg/mL 1-05 SPRAY IN ity of nasal spray 00:00: ONE [place] [facility] Medical EVERY 8 Branch HOURS NEEDED FOR HEADACHE Indication s: acute pain, chronic pain, Headache butorphanol 2021-0 Yes 2745 USE 1 Unive rs 10 mg/mL 1-05 SPRAY IN ity of nasal spray 00:00: ONE [place] [facility] Medical EVERY 8 Branch HOURS NEEDED FOR HEADACHE Indication s: acute pain, chronic pain, Headache butorphanol 2021-0 Yes 2745 USE 1 Unive rs 10 mg/mL 1-05 SPRAY IN ity of nasal spray 00:00: [place] [address] NOSTRIL Medical EVERY 8 Branch HOURS NEEDED FOR HEADACHE Indication s: acute pain, chronic pain, Headache butorphanol 2021-0 2021- No 2745 USE 1 Univ ers 10 mg/mL 1-05 02-05 SPRAY IN ity of nasal spray 00:00: 00:00 [facility] 00 :00 NO[facility]IL Medical EVERY 8 Branch HOURS NEEDED FOR HEADACHE Indication s: acute pain, chronic pain, Headache butorphanol 2019- Yes 2745 USE 1 Unive rs 10 mg/mL 2-07 SPRAY IN ity of nasal spray 00:00: [facility] Medical EVERY 8 Branch HOURS NEEDED FOR HEADACHE Indication s: acute pain, chronic pain, Headache butorphanol 2019- Yes 2745 USE 1 Unive rs 10 mg/mL 2-07 SPRAY IN ity of nasal spray 00:00: [facility] Medical EVERY 8 Branch HOURS NEEDED FOR HEADACHE Indication s: acute pain, chronic pain, Headache butorphanol 2019-02 202- No 2745 USE 1 Univ ers 10 mg/mL 2-07 01-05 SPRAY IN ity of nasal spray 00:00: 00:00 00 :00 [facility] Medical EVERY 8 Branch HOURS NEEDED FOR HEADACHE Indication s: acute pain, chronic pain, Headache AMITRIPTYLI 2019-02 Yes TAKE 1 Univ ers NE 25 mg 1-10 TABLET BY ity of tablet 00:00: [facility] 00 EVERYDAY Medical AT BEDTIME Branch AMITRIPTYLI 2020- Yes TAKE 1 Univ ers NE 25 mg 1-10 TABLET BY ity of tablet 00:00: [facility] 00 EVERYDAY Medical AT BEDTIME Branch AMITRIPTYLI 2020- Yes TAKE 1 Univ ers NE 25 mg 1-10 TABLET BY ity of tablet 00:00: [facility] 00 EVERYDAY Medical AT BEDTIME Branch AMITRIPTYLI 2020- Yes TAKE 1 Univ ers NE 25 mg 1-10 TABLET BY ity of tablet 00:00: [facility] 00 EVERYDAY Medical AT BEDTIME Branch AMITRIPTYLI 2020- Yes TAKE 1 Univ ers NE 25 mg 1-10 TABLET BY ity of tablet 00:00: [facility] 00 EVERYDAY Medical AT BEDTIME Branch AMITRIPTYLI 2020- Yes TAKE 1 Univ ers NE 25 mg 1-10 TABLET BY ity of tablet 00:00: [facility] 00 EVERYDAY Medical AT BEDTIME Branch AMITRIPTYLI 2020- Yes TAKE 1 Univ ers NE 25 mg 1-10 TABLET BY ity of tablet 00:00: [facility] 00 EVERYDAY Medical AT BEDTIME Branch AMITRIPTYLI 2020- Yes TAKE 1 Univ ers NE 25 mg 1-10 TABLET BY ity of tablet 00:00: [facility] 00 EVERYDAY Medical AT BEDTIME Branch AMITRIPTYLI 2020- Yes TAKE 1 Univ ers NE 25 mg 1-10 TABLET BY ity of tablet 00:00: [facility] EVERYDAY Medical AT BEDTIME Branch AMITRIPTYLI 2020- Yes TAKE 1 Univ ers NE 25 mg 1-10 TABLET BY ity of tablet 00:00: [facility] EVERYDAY Medical AT BEDTIME Branch AMITRIPTYLI 2019- Yes TAKE 1 Univ ers NE 25 mg 1-10 TABLET BY ity of tablet 00:00: [facility] EVERYDAY Medical AT BEDTIME Branch AMITRIPTYLI 2019- Yes TAKE 1 Univ ers NE 25 mg 1-10 TABLET BY ity of tablet 00:00: [facility] EVERYDAY Medical AT BEDTIME Branch AMITRIPTYLI 2019- Yes TAKE 1 Univ ers NE 25 mg 1-10 TABLET BY ity of tablet 00:00: [facility] EVERYDAY Medical AT BEDTIME Branch AMITRIPTYLI 2019- Yes TAKE 1 Univ ers NE 25 mg 1-10 TABLET BY ity of tablet 00:00: [facility] EVERYDAY Medical AT BEDTIME Branch AMITRIPTYLI 2019- Yes TAKE 1 Univ ers NE 25 mg 1-10 TABLET BY ity of tablet 00:00: [facility] EVERYDAY Medical AT BEDTIME Branch AMITRIPTYLI 2019- Yes TAKE 1 Univ ers NE 25 mg 1-10 TABLET BY ity of tablet 00:00: [facility] EVERYDAY Medical AT BEDTIME Branch AMITRIPTYLI 2019- Yes TAKE 1 Univ ers NE 25 mg 1-10 TABLET BY ity of tablet 00:00: [facility] EVERYDAY Medical AT BEDTIME Branch AMITRIPTYLI 2020- Yes TAKE 1 Univ ers NE 25 mg 1-10 TABLET BY ity of tablet 00:00: [facility] EVERYDAY Medical AT BEDTIME Branch AMITRIPTYLI 2020- Yes TAKE 1 Univ ers NE 25 mg 1-10 TABLET BY ity of tablet 00:00: [facility] EVERYDAY Medical AT BEDTIME Branch AMITRIPTYLI 2020- Yes TAKE 1 Univ ers NE 25 mg 1-10 TABLET BY ity of tablet 00:00: [facility] EVERYDAY Medical AT BEDTIME Branch AMITRIPTYLI 2019- Yes TAKE 1 Univ ers NE 25 mg 1-10 TABLET BY ity of tablet 00:00: [facility] EVERYDAY Medical AT BEDTIME Branch AMITRIPTYLI 2020-2020- No TAKE 1 Uni vers NE 25 mg 1-10 05-05 TABLET BY ity o f tablet 00:00: 00:00 [facility] 00 :00 EVERYDAY Medical AT BEDTIME Branch butorphanol 2019- Yes 2745 USE 1 Unive rs 10 mg/mL 1-09 SPRAY IN ity of nasal spray 00:00: ONE [place] [facility] Medical EVERY 8 Branch HOURS NEEDED FOR HEADACHE Indication s: chronic pain, Headache butorphanol 2020- Yes 2745 USE 1 Unive rs 10 mg/mL 1-09 SPRAY IN ity of nasal spray 00:00: ONE [place] [facility] Medical EVERY 8 Branch HOURS NEEDED FOR HEADACHE Indication s: chronic pain, Headache butorphanol 2020- Yes 2745 USE 1 Unive rs 10 mg/mL 1-09 SPRAY IN ity of nasal spray 00:00: ONE [place] NO[facility] Medical EVERY 8 Branch HOURS NEEDED FOR HEADACHE Indication s: chronic pain, Headache butorphanol 2020- 2020- No 2745 USE 1 Univ ers 10 mg/mL 1-09 12-07 SPRAY IN ity of nasal spray 00:00: 00:00 [facility] 00 :00 NOSTRIL Medical EVERY 8 Branch HOURS NEEDED FOR HEADACHE Indication s: chronic pain, Headache butorphanol 2020- Yes 2745 USE 1 Unive rs 10 mg/mL 0-09 SPRAY IN ity of nasal spray 00:00: ONE [place] NO[facility] Medical EVERY 8 Branch HOURS NEEDED FOR HEADACHE Indication s: chronic pain, Headache butorphanol 2020- Yes 2745 USE 1 Unive rs 10 mg/mL 0-09 SPRAY IN ity of nasal spray 00:00: ONE [place] [address] NOSTRIL Medical EVERY 8 Branch HOURS NEEDED FOR HEADACHE Indication s: chronic pain, Headache butorphanol 2020- 2020- No 2745 USE 1 Univ ers 10 mg/mL 0-09 11-09 SPRAY IN ity of nasal spray 00:00: 00:00 [facility] 00 :00 NOSTRIL Medical EVERY 8 Branch HOURS NEEDED FOR HEADACHE Indication s: chronic pain, Headache butorphanol 2020-0 Yes 2745 USE 1 Unive rs 10 mg/mL 9-11 SPRAY IN ity of nasal spray 00:00: ONE [place] [address] NOSTRIL Medical EVERY 8 Branch HOURS NEEDED FOR HEADACHE Indication s: chronic pain, Headache butorphanol 2020-0 Yes 2745 USE 1 Unive rs 10 mg/mL 9-11 SPRAY IN ity of nasal spray 00:00: ONE [place] [address] NOSTRIL Medical EVERY 8 Branch HOURS NEEDED FOR HEADACHE Indication s: chronic pain, Headache butorphanol 2020-0 2020- No 2745 USE 1 Univ ers 10 mg/mL 9-11 10-09 SPRAY IN ity of nasal spray 00:00: 00:00 ONE [place] 00 :00 NOSTRIL Medical EVERY 8 Branch HOURS NEEDED FOR HEADACHE Indication s: chronic pain, Headache butorphanol 2020-0 Yes USE 1 Unive rs 10 mg/mL 8-14 SPRAY IN ity of nasal spray 00:00: ONE [place] 00 NOSTRIL Medical EVERY 8 Branch HOURS NEEDED FOR HEADACHE Indication s: Headache butorphanol 2020-0 Yes 2745 USE 1 Unive rs 10 mg/mL 8-14 SPRAY IN ity of nasal spray 00:00: ONE [place] [address] NOSTRIL Medical EVERY 8 Branch HOURS NEEDED FOR HEADACHE Indication s: chronic pain, Headache butorphanol 2020-0 Yes 2745 USE 1 Unive rs 10 mg/mL 8-14 SPRAY IN ity of nasal spray 00:00: ONE [place] [address] NOSTRIL Medical EVERY 8 Branch HOURS NEEDED FOR HEADACHE Indication s: chronic pain, Headache butorphanol 2020-0 2020- No 2745 USE 1 Univ ers 10 mg/mL 8-14 09-11 SPRAY IN ity of nasal spray 00:00: 00:00 [facility] 00 :00 NOSTRIL Medical EVERY 8 Branch HOURS NEEDED FOR HEADACHE Indication s: chronic pain, Headache butorphanol 2020-0 2020- No USE 1 Univ ers 10 mg/mL 8-14 08-14 SPRAY IN ity of nasal spray 00:00: 00:00 [facility] 00 :00 NOSTRIL Medical EVERY 8 Branch HOURS NEEDED FOR HEADACHE Indication s: Headache butorphanol 2020-0 Yes USE 1 Unive rs 10 mg/mL 7-14 SPRAY IN ity of nasal spray 00:00: ONE [place] [address] NO[facility]IL Medical EVERY 8 Branch HOURS NEEDED FOR HEADACHE Indication s: Headache butorphanol 2020-0 2020- No USE 1 Univ ers 10 mg/mL 7-14 08-14 SPRAY IN ity of nasal spray 00:00: 00:00 [facility] 00 :00 NOSTRIL Medical EVERY 8 Branch HOURS NEEDED FOR HEADACHE Indication s: Headache butorphanol 2020-0 2020- No USE 1 Univ ers 10 mg/mL 6-09 07-14 SPRAY IN ity of nasal spray 00:00: 00:00 ONE [place] 00 :00 NOSTRIL Medical EVERY 8 Branch HOURS NEEDED FOR HEADACHE butorphanol 2020-0 Yes USE 1 Unive rs 10 mg/mL 6-04 SPRAY IN ity of nasal spray 00:00: ONE [place] NO[facility] Medical EVERY 8 Branch HOURS NEEDED FOR HEADACHE butorphanol 2020-0 Yes USE 1 Unive rs 10 mg/mL 6-04 SPRAY IN ity of nasal spray 00:00: ONE [place] NO[facility] Medical EVERY 8 Branch HOURS NEEDED FOR HEADACHE butorphanol 2020-0 Yes USE 1 Unive rs 10 mg/mL 6-04 SPRAY IN ity of nasal spray 00:00: ONE [place] NO[facility] Medical EVERY 8 Branch HOURS NEEDED FOR HEADACHE butorphanol 2020-0 Yes USE 1 Unive rs 10 mg/mL 6-04 SPRAY IN ity of nasal spray 00:00: ONE [place] NO[facility] Medical EVERY 8 Branch HOURS NEEDED FOR HEADACHE butorphanol 2020-0 Yes USE 1 Unive rs 10 mg/mL 6-04 SPRAY IN ity of nasal spray 00:00: ONE [place] [facility] Medical EVERY 8 Branch HOURS NEEDED FOR HEADACHE butorphanol 2020-0 Yes USE 1 Unive rs 10 mg/mL 6-04 SPRAY IN ity of nasal spray 00:00: ONE [place] NO[facility] Medical EVERY 8 Branch HOURS NEEDED FOR HEADACHE butorphanol 2020-0 Yes USE 1 Unive rs 10 mg/mL 6-04 SPRAY IN ity of nasal spray 00:00: ONE [place] NO[facility] Medical EVERY 8 Branch HOURS NEEDED FOR HEADACHE SERTRALINE 2020-0 Yes [id number] TAKE 1 U nivers 25 mg 5-21 TABLET BY ity of tablet 00:00: MOUTH [place] EVERY DAY Medical Branch SERTRALINE 2020-0 Yes [id number] TAKE 1 U nivers 25 mg 5-21 TABLET BY ity of tablet 00:00: MOUTH [place] EVERY DAY Medical Branch SERTRALINE 2020-0 Yes [id number] TAKE 1 U nivers 25 mg 5-21 TABLET BY ity of tablet 00:00: MOUTH [place] EVERY DAY Medical Branch SERTRALINE 2020-0 Yes [id number] TAKE 1 U nivers 25 mg 5-21 TABLET BY ity of tablet 00:00: MOUTH [place] EVERY DAY Medical Branch SERTRALINE 2020-0 Yes [id number] TAKE 1 U nivers 25 mg 5-21 TABLET BY ity of tablet 00:00: [facility] EVERY DAY Medical Branch SERTRALINE 2020-0 Yes [id number] TAKE 1 U nivers 25 mg 5-21 TABLET BY ity of tablet 00:00: [facility] EVERY DAY Medical Branch SERTRALINE 2020-0 Yes [id number] TAKE 1 U nivers 25 mg 5-21 TABLET BY ity of tablet 00:00: MOUTH [place] EVERY DAY Medical Branch SERTRALINE 2020-0 Yes [id number] TAKE 1 U nivers 25 mg 5-21 TABLET BY ity of tablet 00:00: [facility] EVERY DAY Medical Branch SERTRALINE 2020-0 Yes [id number] TAKE 1 U nivers 25 mg 5-21 TABLET BY ity of tablet 00:00: [facility] EVERY DAY Medical Branch SERTRALINE 2020-0 Yes [id number] TAKE 1 U nivers 25 mg 5-21 TABLET BY ity of tablet 00:00: [facility] EVERY DAY Medical Branch SERTRALINE 2020-0 Yes [id number] TAKE 1 U nivers 25 mg 5-21 TABLET BY ity of tablet 00:00: [facility] EVERY DAY Medical Branch SERTRALINE 2020-0 Yes [id number] TAKE 1 U nivers 25 mg 5-21 TABLET BY ity of tablet 00:00: [facility] EVERY DAY Medical Branch SERTRALINE 2020-0 Yes [id number] TAKE 1 U nivers 25 mg 5-21 TABLET BY ity of tablet 00:00: [facility] EVERY DAY Medical Branch SERTRALINE 2020-0 Yes [id number] TAKE 1 U nivers 25 mg 5-21 TABLET BY ity of tablet 00:00: [facility] EVERY DAY Medical Branch SERTRALINE 2020-0 Yes [id number] TAKE 1 U nivers 25 mg 5-21 TABLET BY ity of tablet 00:00: [facility] 00 EVERY DAY Medical Branch SERTRALINE 2020-0 Yes [id number] TAKE 1 U nivers 25 mg 5-21 TABLET BY ity of tablet 00:00: [facility] EVERY DAY Medical Branch SERTRALINE 2020-0 Yes [id number] TAKE 1 U nivers 25 mg 5-21 TABLET BY ity of tablet 00:00: MOUTH [place] EVERY DAY Medical Branch SERTRALINE 2020-0 Yes [id number] TAKE 1 U nivers 25 mg 5-21 TABLET BY ity of tablet 00:00: MOUTH [place] EVERY DAY Medical Branch SERTRALINE 2020-0 Yes [id number] TAKE 1 U nivers 25 mg 5-21 TABLET BY ity of tablet 00:00: [facility] EVERY DAY Medical Branch SERTRALINE 2020-0 Yes [id number] TAKE 1 U nivers 25 mg 5-21 TABLET BY ity of tablet 00:00: MOUTH EVERY DAY Medical Branch SERTRALINE 2020-0 Yes [id number] TAKE 1 U nivers 25 mg 5-21 TABLET BY ity of tablet 00:00: [facility] EVERY DAY Medical Branch SERTRALINE 2020-0 Yes [id number] TAKE 1 U nivers 25 mg 5-21 TABLET BY ity of tablet 00:00: [facility] EVERY DAY Medical Branch SERTRALINE 2020-0 Yes [id number] TAKE 1 U nivers 25 mg 5-21 TABLET BY ity of tablet 00:00: [facility] EVERY DAY Medical Branch SERTRALINE 2020-0 Yes [id number] TAKE 1 U nivers 25 mg 5-21 TABLET BY ity of tablet 00:00: [facility] EVERY DAY Medical Branch SERTRALINE 2020-0 Yes [id number] TAKE 1 U nivers 25 mg 5-21 TABLET BY ity of tablet 00:00: [facility] EVERY DAY Medical Branch SERTRALINE 2020-0 Yes [id number] TAKE 1 U nivers 25 mg 5-21 TABLET BY ity of tablet 00:00: [facility] EVERY DAY Medical Branch SERTRALINE 2020-0 Yes [id number] TAKE 1 U nivers 25 mg 5-21 TABLET BY ity of tablet 00:00: [facility] EVERY DAY Medical Branch SERTRALINE 2020-0 Yes [id number] TAKE 1 U nivers 25 mg 5-21 TABLET BY ity of tablet 00:00: [facility] EVERY DAY Medical Branch SERTRALINE 2020-0 Yes [id number] TAKE 1 U nivers 25 mg 5-21 TABLET BY ity of tablet 00:00: [facility] EVERY DAY Medical Branch SERTRALINE 2020-0 Yes [id number] TAKE 1 U nivers 25 mg 5-21 TABLET BY ity of tablet 00:00: [facility] 00 EVERY DAY Medical Branch SERTRALINE 2020-0 Yes [id number] TAKE 1 U nivers 25 mg 5-21 TABLET BY ity of tablet 00:00: [facility] EVERY DAY Medical Branch SERTRALINE 2020-0 Yes [id number] TAKE 1 U nivers 25 mg 5-21 TABLET BY ity of tablet 00:00: MOUTH [place] EVERY DAY Medical Branch SERTRALINE 2020-0 Yes [id number] TAKE 1 U nivers 25 mg 5-21 TABLET BY ity of tablet 00:00: MOUTH [place] EVERY DAY Medical Branch SERTRALINE 2020-0 Yes [id number] TAKE 1 U nivers 25 mg 5-21 TABLET BY ity of tablet 00:00: [facility] EVERY DAY Medical Branch SERTRALINE 2020-0 Yes [id number] TAKE 1 U nivers 25 mg 5-21 TABLET BY ity of tablet 00:00: [facility] EVERY DAY Medical Branch SERTRALINE 2020-0 Yes [id number] TAKE 1 U nivers 25 mg 5-21 TABLET BY ity of tablet 00:00: [facility] EVERY DAY Medical Branch SERTRALINE 2020-0 Yes [id number] TAKE 1 U nivers 25 mg 5-21 TABLET BY ity of tablet 00:00: [facility] 00 EVERY DAY Medical Branch SERTRALINE 2020-0 Yes [id number] TAKE 1 U nivers 25 mg 5-21 TABLET BY ity of tablet 00:00: [facility] EVERY DAY Medical Branch SERTRALINE 2020-0 Yes [id number] TAKE 1 U nivers 25 mg 5-21 TABLET BY ity of tablet 00:00: [facility] EVERY DAY Medical Branch SERTRALINE 2020-0 Yes [id number] TAKE 1 U nivers 25 mg 5-21 TABLET BY ity of tablet 00:00: [facility] 00 EVERY DAY Medical Branch SERTRALINE 2020-0 Yes [id number] TAKE 1 U nivers 25 mg 5-21 TABLET BY ity of tablet 00:00: [facility] EVERY DAY Medical Branch SERTRALINE 2020-0 Yes [id number] TAKE 1 U nivers 25 mg 5-21 TABLET BY ity of tablet 00:00: [facility] EVERY DAY Medical Branch butorphanol 2020-0 Yes USE 1 Unive rs 10 mg/mL 5-05 SPRAY IN ity of nasal spray 00:00: [facility] NOSTRIL Medical EVERY 8 Branch HOURS NEEDED FOR HEADACHE amitriptyli 2020-0 Yes 25mg Take 1 Univ ers ne 25 mg 5-05 tablet by ity of tablet 00:00: mouth at [place] [address] bedtime. Medical Branch butorphanol 2020-0 Yes USE 1 Unive rs 10 mg/mL 5-05 SPRAY IN ity of nasal spray 00:00: ONE [place] NOSTRIL Medical EVERY 8 Branch HOURS NEEDED FOR HEADACHE amitriptyli 2020-0 Yes 25mg Take 1 Univ ers ne 25 mg 5-05 tablet by ity of tablet 00:00: mouth at [place] [address] bedtime. Medical Branch butorphanol 2020-0 Yes USE 1 Unive rs 10 mg/mL 5-05 SPRAY IN ity of nasal spray 00:00: ONE [place] NO[facility] Medical EVERY 8 Branch HOURS NEEDED FOR HEADACHE amitriptyli 2020-0 Yes 25mg Take 1 [facility] ne 25 mg 5-05 tablet by ity of tablet 00:00: mouth at [place] [address] bedtime. Medical Branch butorphanol 2020-0 Yes USE 1 [facility] rs 10 mg/mL 5-05 SPRAY IN ity of nasal spray 00:00: ONE [place] NOSTRIL Medical EVERY 8 Branch HOURS NEEDED FOR HEADACHE amitriptyli 2020-0 Yes 25mg Take 1 [facility] ne 25 mg 5-05 tablet by ity of tablet 00:00: mouth at [place] [address] bedtime. Medical Branch butorphanol 2020-0 Yes USE 1 [facility] rs 10 mg/mL 5-05 SPRAY IN ity of nasal spray 00:00: ONE [place] NOSTRIL Medical EVERY 8 Branch HOURS NEEDED FOR HEADACHE amitriptyli 2020-0 Yes 25mg Take 1 [facility] ne 25 mg 5-05 tablet by ity of tablet 00:00: mouth at [place] [address] bedtime. Medical Branch amitriptyli 2020-0 Yes 25mg Take 1 [facility] ne 25 mg 5-05 tablet by ity of tablet 00:00: mouth at [place] [address] bedtime. Medical Branch amitriptyli 2020-0 Yes 25mg Take 1 [facility] ne 25 mg 5-05 tablet by ity of tablet 00:00: mouth at [place] [address] bedtime. Medical Branch amitriptyli 2020-0 Yes 25mg Take 1 [facility] ne 25 mg 5-05 tablet by ity of tablet 00:00: mouth at [place] [address] bedtime. Medical Branch amitriptyli 2020-0 Yes 25mg Take 1 [facility] ne 25 mg 5-05 tablet by ity of tablet 00:00: mouth at [place] [address] bedtime. Medical Branch amitriptyli 2020-0 Yes 25mg Take 1 [facility] ne 25 mg 5-05 tablet by ity of tablet 00:00: mouth at [place] [address] bedtime. Medical Branch amitriptyli 2020-0 Yes 25mg Take 1 [facility] ne 25 mg 5-05 tablet by ity of tablet 00:00: mouth at [place] [address] bedtime. Medical Branch amitriptyli 2020-0 Yes 25mg Take 1 [facility] ne 25 mg 5-05 tablet by ity of tablet 00:00: mouth at [place] [address] bedtime. Medical Branch amitriptyli 2020-0 Yes 25mg Take 1 [facility] 25 mg 5-05 tablet by ity of tablet 00:00: mouth at [place] [address] bedtime. Medical Branch amitriptyli 2020-0 Yes 25mg Take 1 [facility] 25 mg 5-05 tablet by ity of tablet 00:00: mouth at [place] [address] bedtime. Medical Branch amitriptyli 2020-0 Yes 25mg Take 1 [facility] ne 25 mg 5-05 tablet by ity of tablet 00:00: mouth at [place] [address] bedtime. Medical Branch amitriptyli 2020-0 Yes 25mg Take 1 [facility] ne 25 mg 5-05 tablet by ity of tablet 00:00: mouth at [place] [address] bedtime. Medical Branch amitriptyli 2020-0 Yes 25mg Take 1 [facility] 25 mg 5-05 tablet by ity of tablet 00:00: mouth at [place] [address] bedtime. Medical Branch amitriptyli 2020-0 Yes 25mg Take 1 [facility] 25 mg 5-05 tablet by ity of tablet 00:00: mouth at [place] [address] bedtime. Medical Branch amitriptyli 2020-0 Yes 25mg Take 1 [facility] ne 25 mg 5-05 tablet by ity of tablet 00:00: mouth at [place] [address] bedtime. Medical Branch amitriptyli 2020-0 Yes 25mg Take 1 [facility] ne 25 mg 5-05 tablet by ity of tablet 00:00: mouth at [place] [address] bedtime. Medical Branch amitriptyli 2020-0 Yes 25mg Take 1 [facility] ne 25 mg 5-05 tablet by ity of tablet 00:00: mouth at [place] 00 bedtime. Medical Branch amitriptyli 2020-0 Yes 25mg Take 1 [facility] ne 25 mg 5-05 tablet by ity of tablet 00:00: mouth at [place] 00 bedtime. Medical Branch amitriptyli 2020-0 2020- No 25mg Take 1 [facility] vers ne 25 mg 5-05 11-10 tablet by ity o f tablet 00:00: 00:00 mouth at [place] 00 :00 bedtime. Medical Branch butorphanol 2020-0 2020- No USE 1 [facility] ers 10 mg/mL 5-05 06-04 SPRAY IN ity of nasal spray 00:00: 00:00 [facility] 00 :00 NOSTRIL Medical EVERY 8 Branch HOURS NEEDED FOR HEADACHE butorphanol 2020-0 2020- No USE 1 [facility] ers 10 mg/mL 5-05 06-04 SPRAY IN ity of nasal spray 00:00: 00:00 [facility] 00 :00 NOSTRIL Medical EVERY 8 Branch HOURS NEEDED FOR HEADACHE AMITRIPTYLI 2020-0 Yes TAKE 1 [facility] ers NE 25 mg 4-14 TABLET BY ity of tablet 00:00: MOUTH [place] 00 EVERYDAY Medical AT BEDTIME Branch AMITRIPTYLI 2020-0 2020- No TAKE 1 Uni vers NE 25 mg 4-14 05-05 TABLET BY ity o f tablet 00:00: 00:00 [facility] [place] 00 :00 EVERYDAY Medical AT BEDTIME Branch butorphanol 2020-0 Yes USE 1 [facility]ive rs 10 mg/mL 4-01 SPRAY IN ity of nasal spray 00:00: [place] [address] NOSTRIL Medical EVERY 8 Branch HOURS NEEDED FOR HEADACHE butorphanol 2020-0 Yes USE 1 [facility]ive rs 10 mg/mL 4-01 SPRAY IN ity of nasal spray 00:00: [place] [address] NOSTRIL Medical EVERY 8 Branch HOURS NEEDED FOR HEADACHE butorphanol 2020-0 2020- No USE 1 [facility] ers 10 mg/mL 4-01 05-05 SPRAY IN ity of nasal spray 00:00: 00:00 [facility] 00 :00 NOSTRIL Medical EVERY 8 Branch HOURS NEEDED FOR HEADACHE AMITRIPTYLI 2020-0 Yes TAKE 1 [facility] ers NE 25 mg 3-30 TABLET BY ity of tablet 00:00: MOUTH [place] 00 EVERYDAY Medical AT BEDTIME Branch AMITRIPTYLI [...] Medical AT BEDTIME Branch sulfamethox 2020-0 Yes [id number] 1{tbl} Take 1 [facility] azole-trime 3-25 tablet by ity of thoprim 00:00: mouth 2 [place] 800-160 mg 00 (two) Medical per tablet times Branch daily. sulfamethox 2020-0 Yes [id number] 1{tbl} Take 1 [facility] azole-trime 3-25 tablet by ity of thoprim 00:00: mouth 2 [place] 800-160 mg 00 (two) Medical per tablet times Branch daily. sulfamethox 2020-0 Yes [id number] 1{tbl} Take 1 [facility] azole-trime 3-25 tablet by ity of thoprim 00:00: mouth 2 [place] 800-160 mg 00 (two) Medical per tablet times Branch daily. sulfamethox 2020-0 Yes [id number] 1{tbl} Take 1 [facility] azole-trime 3-25 tablet by ity of thoprim 00:00: mouth 2 [place] 800-160 mg 00 (two) Medical per tablet times Branch daily. sulfamethox 2020-0 Yes [id number] 1{tbl} Take 1 [facility] azole-trime 3-25 tablet by ity of thoprim 00:00: mouth 2 [place] 800-160 mg 00 (two) Medical per tablet times Branch daily. sulfamethox 2020-0 Yes [id number] 1{tbl} Take 1 [facility] azole-trime 3-25 tablet by ity of thoprim 00:00: mouth 2 [place] 800-160 mg 00 (two) Medical per tablet times Branch daily. sulfamethox 2020-0 Yes [id number] 1{tbl} Take 1 [facility] azole-trime 3-25 tablet by ity of thoprim 00:00: mouth 2 [place] 800-160 mg 00 (two) Medical per tablet times Branch daily. sulfamethox 2020-0 Yes [id number] 1{tbl} Take 1 [facility] azole-trime 3-25 tablet by ity of thoprim 00:00: mouth 2 [place] 800-160 mg 00 (two) Medical per tablet times Branch daily. sulfamethox 2020-0 Yes [id number] 1{tbl} Take 1 [facility] azole-trime 3-25 tablet by ity of thoprim 00:00: mouth 2 [place] 800-160 mg 00 (two) Medical per tablet times Branch daily. sulfamethox 2020-0 Yes [id number] 1{tbl} Take 1 [facility] azole-trime 3-25 tablet by ity of thoprim 00:00: mouth 2 [place] 800-160 mg 00 (two) Medical per tablet times Branch daily. sulfamethox 2020-0 Yes [id number] 1{tbl} Take 1 [facility] azole-trime 3-25 tablet by ity of thoprim 00:00: mouth 2 [place] 800-160 mg 00 (two) Medical per tablet times Branch daily. sulfamethox 2020-0 Yes [id number] 1{tbl} Take 1 [facility] azole-trime 3-25 tablet by ity of thoprim 00:00: mouth 2 [place] 800-160 mg 00 (two) Medical per tablet times Branch daily. sulfamethox 2020-0 Yes [id number] 1{tbl} Take 1 [facility] azole-trime 3-25 tablet by ity of thoprim 00:00: mouth 2 [place] 800-160 mg 00 (two) Medical per tablet times Branch daily. sulfamethox 2020-0 Yes [id number] 1{tbl} Take 1 [facility] azole-trime 3-25 tablet by ity of thoprim 00:00: mouth 2 [place] 800-160 mg 00 (two) Medical per tablet times Branch daily. sulfamethox 2020-0 Yes [id number] 1{tbl} Take 1 [facility] azole-trime 3-25 tablet by ity of thoprim 00:00: mouth 2 [place] 800-160 mg 00 (two) Medical per tablet times Branch daily. sulfamethox 2020-0 Yes [id number] 1{tbl} Take 1 [facility] azole-trime 3-25 tablet by ity of thoprim 00:00: mouth 2 [place] 800-160 mg 00 (two) Medical per tablet times Branch daily. sulfamethox 2020-0 Yes [id number] 1{tbl} Take 1 [facility] azole-trime 3-25 tablet by ity of thoprim 00:00: mouth 2 [place] 800-160 mg 00 (two) Medical per tablet times Branch daily. sulfamethox 2020-0 Yes [id number] 1{tbl} Take 1 [facility] azole-trime 3-25 tablet by ity of thoprim 00:00: mouth 2 [place] 800-160 mg 00 (two) Medical per tablet times Branch daily. sulfamethox 2020-0 Yes [id number] 1{tbl} Take 1 [facility] azole-trime 3-25 tablet by ity of thoprim 00:00: mouth 2 [place] 800-160 mg 00 (two) Medical per tablet times Branch daily. sulfamethox 2020-0 Yes [id number] 1{tbl} Take 1 [facility] azole-trime 3-25 tablet by ity of thoprim 00:00: mouth 2 [place] 800-160 mg 00 (two) Medical per tablet times Branch daily. sulfamethox 2020-0 Yes [id number] 1{tbl} Take 1 [facility] azole-trime 3-25 tablet by ity of thoprim 00:00: mouth 2 [place] 800-160 mg 00 (two) Medical per tablet times Branch daily. sulfamethox 2020-0 Yes [id number] 1{tbl} Take 1 [facility] azole-trime 3-25 tablet by ity of thoprim 00:00: mouth 2 [place] 800-160 mg 00 (two) Medical per tablet times Branch daily. sulfamethox 2020-0 Yes [id number] 1{tbl} Take 1 [facility] azole-trime 3-25 tablet by ity of thoprim 00:00: mouth 2 [place] 800-160 mg 00 (two) Medical per tablet times Branch daily. sulfamethox 2020-0 Yes [id number] 1{tbl} Take 1 [facility] azole-trime 3-25 tablet by ity of thoprim 00:00: mouth 2 [place] 800-160 mg 00 (two) Medical per tablet times Branch daily. sulfamethox 2020-0 Yes [id number] 1{tbl} Take 1 [facility] azole-trime 3-25 tablet by ity of thoprim 00:00: mouth 2 [place] 800-160 mg 00 (two) Medical per tablet times Branch daily. sulfamethox 2020-0 Yes [id number] 1{tbl} Take 1 [facility] azole-trime 3-25 tablet by ity of thoprim 00:00: mouth 2 [place] 800-160 mg 00 (two) Medical per tablet times Branch daily. sulfamethox 2020-0 Yes [id number] 1{tbl} Take 1 [facility] azole-trime 3-25 tablet by ity of thoprim 00:00: mouth 2 [place] 800-160 mg 00 (two) Medical per tablet times Branch daily. sulfamethox 2020-0 Yes [id number] 1{tbl} Take 1 [facility] azole-trime 3-25 tablet by ity of thoprim 00:00: mouth 2 [place] 800-160 mg 00 (two) Medical per tablet times Branch daily. sulfamethox 2020-0 Yes [id number] 1{tbl} Take 1 [facility] azole-trime 3-25 tablet by ity of thoprim 00:00: mouth 2 [place] 800-160 mg 00 (two) Medical per tablet times Branch daily. sulfamethox 2020-0 Yes [id number] 1{tbl} Take 1 [facility] azole-trime 3-25 tablet by ity of thoprim 00:00: mouth 2 [place] 800-160 mg 00 (two) Medical per tablet times Branch daily. sulfamethox 2020-0 Yes [id number] 1{tbl} Take 1 [facility] azole-trime 3-25 tablet by ity of thoprim 00:00: mouth 2 [place] 800-160 mg 00 (two) Medical per tablet times Branch daily. sulfamethox 2020-0 Yes [id number] 1{tbl} Take 1 [facility] azole-trime 3-25 tablet by ity of thoprim 00:00: mouth 2 [place] 800-160 mg 00 (two) Medical per tablet times Branch daily. sulfamethox 2020-0 Yes [id number] 1{tbl} Take 1 [facility] azole-trime 3-25 tablet by ity of thoprim 00:00: mouth 2 [place] 800-160 mg 00 (two) Medical per tablet times Branch daily. sulfamethox 2020-0 Yes [id number] 1{tbl} Take 1 [facility] azole-trime 3-25 tablet by ity of thoprim 00:00: mouth 2 [place] 800-160 mg 00 (two) Medical per tablet times Branch daily. sulfamethox 2020-0 Yes [id number] 1{tbl} Take 1 [facility] azole-trime 3-25 tablet by ity of thoprim 00:00: mouth 2 [place] 800-160 mg 00 (two) Medical per tablet times Branch daily. sulfamethox 2020-0 Yes [id number] 1{tbl} Take 1 [facility] azole-trime 3-25 tablet by ity of thoprim 00:00: mouth 2 [place] 800-160 mg 00 (two) Medical per tablet times Branch daily. sulfamethox 2020-0 Yes [id number] 1{tbl} Take 1 [facility] azole-trime 3-25 tablet by ity of thoprim 00:00: mouth 2 [place] 800-160 mg 00 (two) Medical per tablet times Branch daily. sulfamethox 2020-0 Yes [id number] 1{tbl} Take 1 [facility] azole-trime 3-25 tablet by ity of thoprim 00:00: mouth 2 [place] 800-160 mg 00 (two) Medical per tablet times Branch daily. sulfamethox 2020-0 Yes [id number] 1{tbl} Take 1 [facility] azole-trime 3-25 tablet by ity of thoprim 00:00: mouth 2 [place] 800-160 mg 00 (two) Medical per tablet times Branch daily. sulfamethox 2020-0 Yes [id number] 1{tbl} Take 1 [facility] azole-trime 3-25 tablet by ity of thoprim 00:00: mouth 2 [place] 800-160 mg 00 (two) Medical per tablet times Branch daily. sulfamethox 2020-0 Yes [id number] 1{tbl} Take 1 [facility] azole-trime 3-25 tablet by ity of thoprim 00:00: mouth 2 [place] 800-160 mg 00 (two) Medical per tablet times Branch daily. sulfamethox 2020-0 Yes [id number] 1{tbl} Take 1 [facility] azole-trime 3-25 tablet by ity of thoprim 00:00: mouth 2 [place] 800-160 mg 00 (two) Medical per tablet times Branch daily. sulfamethox 2020-0 Yes [id number] 1{tbl} Take 1 [facility] azole-trime 3-25 tablet by ity of thoprim 00:00: mouth 2 [place] 800-160 mg 00 (two) Medical per tablet times Branch daily. sulfamethox 2020-0 Yes [id number] 1{tbl} Take 1 [facility] azole-trime 3-25 tablet by ity of thoprim 00:00: mouth 2 [place] 800-160 mg 00 (two) Medical per tablet times Branch daily. sulfamethox 2020-0 Yes [id number] 1{tbl} Take 1 [facility] azole-trime 3-25 tablet by ity of thoprim 00:00: mouth 2 [place] 800-160 mg 00 (two) Medical per tablet times Branch daily. sulfamethox 2020-0 Yes [id number] 1{tbl} Take 1 [facility] azole-trime 3-25 tablet by ity of thoprim 00:00: mouth 2 [place] 800-160 mg 00 (two) Medical per tablet times Branch daily. sulfamethox 2020-0 Yes [id number] 1{tbl} Take 1 [facility] azole-trime 3-25 tablet by ity of thoprim 00:00: mouth 2 [place] 800-160 mg 00 (two) Medical per tablet times Branch daily. sulfamethox 2020-0 Yes [id number] 1{tbl} Take 1 [facility] azole-trime 3-25 tablet by ity of thoprim 00:00: mouth 2 [place] 800-160 mg 00 (two) Medical per tablet times Branch daily. sulfamethox 2020-0 Yes [id number] 1{tbl} Take 1 [facility] azole-trime 3-25 tablet by ity of thoprim 00:00: mouth 2 [place] 800-160 mg 00 (two) Medical per tablet times Branch daily. sulfamethox 2020-0 Yes [id number] 1{tbl} Take 1 [facility] azole-trime 3-25 tablet by ity of thoprim 00:00: mouth 2 [place] 800-160 mg 00 (two) Medical per tablet times Branch daily. carvediloL 2020-0 Yes 25mg Take 25 mg U nivers 25 mg 3-07 by mouth 2 ity of tablet 01:16: (two) [place] 39 times Medical daily with Branch meals. proMETHazin 2020-0 Yes 12.5mg Take 12.5 Univers e 25 mg 3-07 mg by ity of tablet 01:16: mouth 3 [place] 39 (three) Medical times Branch daily as needed for Nausea and Vomiting (N/V). insulin 2020-0 Yes inject Univers aspart 3-07 under the ity of U-100 01:16: skin. [place] (NOVOLOG 39 Medical FLEXPEN Branch U-100 INSULIN) 100 unit/mL (3 mL) injection carvediloL 2020-0 Yes 25mg Take 25 mg U nivers 25 mg 3-07 by mouth 2 ity of tablet 01:16: (two) [place] 39 times Medical daily with Branch meals. proMETHazin 2020-0 Yes 12.5mg Take 12.5 Univers e 25 mg 3-07 mg by ity of tablet 01:16: mouth 3 [place] [address] (three) Medical times Branch daily as needed for Nausea and Vomiting (N/V). insulin 2020-0 Yes inject Univers aspart 3-07 under the ity of U-100 01:16: skin. [place] (NOVOLOG 39 Medical FLEXPEN Branch U-100 INSULIN) 100 unit/mL (3 mL) injection carvediloL 2020-0 Yes 25mg Take 25 mg U nivers 25 mg 3-07 by mouth 2 ity of tablet 01:16: (two) [place] 39 times Medical daily with Branch meals. proMETHazin 2020-0 Yes 12.5mg Take 12.5 Univers e 25 mg 3-07 mg by ity of tablet 01:16: mouth 3 [place] [address] (three) Medical times Branch daily as needed for Nausea and Vomiting (N/V). insulin 2020-0 Yes inject Univers aspart 3-07 under the ity of U-100 01:16: skin. [place] (NOVOLOG 39 Medical FLEXPEN Branch U-100 INSULIN) 100 unit/mL (3 mL) injection carvediloL 2020-0 Yes 25mg Take 25 mg U nivers 25 mg 3-07 by mouth 2 ity of tablet :16: (two) [place] 39 times Medical daily with Branch meals. proMETHazin 2020-0 Yes 12.5mg Take 12.5 Univers e 25 mg 3-07 mg by ity of tablet 01:16: mouth 3 [place] [address] (three) Medical times Branch daily as needed for Nausea and Vomiting (N/V). insulin 2020-0 Yes inject Univers aspart 3-07 under the ity of U-100 01:16: skin. [place] (NOVOLOG 39 Medical FLEXPEN Branch U-100 INSULIN) 100 unit/mL (3 mL) injection carvediloL 2020-0 Yes 25mg Take 25 mg U nivers 25 mg 3-07 by mouth 2 ity of tablet 01:16: (two) [place] 39 times Medical daily with Branch meals. proMETHazin 2020-0 Yes 12.5mg Take 12.5 Univers e 25 mg 3-07 mg by ity of tablet 01:16: mouth 3 [place] 39 (three) Medical times Branch daily as needed for Nausea and Vomiting (N/V). insulin 2020-0 Yes inject [facility] aspart 3-07 under the ity of U-100 01:16: skin. [place] (NOVOLOG 39 Medical FLEXPEN Branch U-100 INSULIN) 100 unit/mL (3 mL) injection carvediloL 2020-0 Yes 25mg Take 25 mg U nivers 25 mg 3-07 by mouth 2 ity of tablet 01:16: (two) [place] 39 times Medical daily with Branch meals. proMETHazin 2020-0 Yes 12.5mg Take 12.5 Univers e 25 mg 3-07 mg by ity of tablet 01:16: mouth 3 [place] [address] (three) Medical times Branch daily as needed for Nausea and Vomiting (N/V). insulin 2020-0 Yes inject Univers aspart 3-07 under the ity of U-100 01:16: skin. [place] (NOVOLOG 39 Medical FLEXPEN Branch U-100 INSULIN) 100 unit/mL (3 mL) injection carvediloL 2020-0 Yes 25mg Take 25 mg U nivers 25 mg 3-07 by mouth 2 ity of tablet 01:16: (two) [place] 39 times Medical daily with Branch meals. proMETHazin 2020-0 Yes 12.5mg Take 12.5 Univers e 25 mg 3-07 mg by ity of tablet 01:16: mouth 3 [place] [address] (three) Medical times Branch daily as needed for Nausea and Vomiting (N/V). insulin 2020-0 Yes inject Univers aspart 3-07 under the ity of U-100 01:16: skin. [place] (NOVOLOG 39 Medical FLEXPEN Branch U-100 INSULIN) 100 unit/mL (3 mL) injection carvediloL 2020-0 Yes 25mg Take 25 mg U nivers 25 mg 3-07 by mouth 2 ity of tablet 01:16: (two) [place] 39 times Medical daily with Branch meals. proMETHazin 2020-0 Yes 12.5mg Take 12.5 Univers e 25 mg 3-07 mg by ity of tablet 01:16: mouth 3 [place] 39 (three) Medical times Branch daily as needed for Nausea and Vomiting (N/V). insulin 2020-0 Yes inject [facility] aspart 3-07 under the ity of U-100 01:16: skin. [place] (NOVOLOG 39 Medical FLEXPEN Branch U-100 INSULIN) 100 unit/mL (3 mL) injection carvediloL 2020-0 Yes 25mg Take 25 mg U nivers 25 mg 3-07 by mouth 2 ity of tablet 01:16: (two) [place] 39 times Medical daily with Branch meals. proMETHazin 2020-0 Yes 12.5mg Take 12.5 Univers e 25 mg 3-07 mg by ity of tablet 01:16: mouth 3 [place] [address] (three) Medical times Branch daily as needed for Nausea and Vomiting (N/V). insulin 2020-0 Yes inject [facility] aspart 3-07 under the ity of U-100 01:16: skin. [place] (NOVOLOG 39 Medical FLEXPEN Branch U-100 INSULIN) 100 unit/mL (3 mL) injection carvediloL 2020-0 Yes 25mg Take 25 mg U nivers 25 mg 3-07 by mouth 2 ity of tablet 01:16: (two) [place] 39 times Medical daily with Branch meals. proMETHazin 2020-0 Yes 12.5mg Take 12.5 Univers e 25 mg 3-07 mg by ity of tablet 01:16: mouth 3 [place] [address] (three) Medical times Branch daily as needed for Nausea and Vomiting (N/V). insulin 2020-0 Yes inject [facility] aspart 3-07 under the ity of U-100 01:16: skin. [place] (NOVOLOG 39 Medical FLEXPEN Branch U-100 INSULIN) 100 unit/mL (3 mL) injection carvediloL 2020-0 Yes 25mg Take 25 mg U nivers 25 mg 3-07 by mouth 2 ity of tablet 01:16: (two) [place] 39 times Medical daily with Branch meals. proMETHazin 2020-0 Yes 12.5mg Take 12.5 Univers e 25 mg 3-07 mg by ity of tablet 01:16: mouth 3 [place] [address] (three) Medical times Branch daily as needed for Nausea and Vomiting (N/V). insulin 2020-0 Yes inject [facility] aspart 3-07 under the ity of U-100 01:16: skin. [place] (NOVOLOG 39 Medical FLEXPEN Branch U-100 INSULIN) 100 unit/mL (3 mL) injection carvediloL 2020-0 Yes 25mg Take 25 mg U nivers 25 mg 3-07 by mouth 2 ity of tablet 01:16: (two) [place] 39 times Medical daily with Branch meals. proMETHazin 2020-0 Yes 12.5mg Take 12.5 Univers e 25 mg 3-07 mg by ity of tablet 01:16: mouth 3 [place] 39 (three) Medical times Branch daily as needed for Nausea and Vomiting (N/V). insulin 2020-0 Yes inject [facility] aspart 3-07 under the ity of U-100 01:16: skin. [place] (NOVOLOG 39 Medical FLEXPEN Branch U-100 INSULIN) 100 unit/mL (3 mL) injection carvediloL 2020-0 Yes 25mg Take 25 mg U nivers 25 mg 3-07 by mouth 2 ity of tablet 01:16: (two) [place] 39 times Medical daily with Branch meals. proMETHazin 2020-0 Yes 12.5mg Take 12.5 Univers e 25 mg 3-07 mg by ity of tablet 01:16: mouth 3 [place] 39 (three) Medical times Branch daily as needed for Nausea and Vomiting (N/V). insulin 2020-0 Yes inject [facility] aspart 3-07 under the ity of U-100 01:16: skin. [place] (NOVOLOG 39 Medical FLEXPEN Branch U-100 INSULIN) 100 unit/mL (3 mL) injection carvediloL 2020-0 Yes 25mg Take 25 mg U nivers 25 mg 3-07 by mouth 2 ity of tablet 01:16: (two) [place] 39 times Medical daily with Branch meals. proMETHazin 2020-0 Yes 12.5mg Take 12.5 Univers e 25 mg 3-07 mg by ity of tablet 01:16: mouth 3 [place] 39 (three) Medical times Branch daily as needed for Nausea and Vomiting (N/V). insulin 2020-0 Yes inject [facility] aspart 3-07 under the ity of U-100 01:16: skin. [place] (NOVOLOG 39 Medical FLEXPEN Branch U-100 INSULIN) 100 unit/mL (3 mL) injection carvediloL 2020-0 Yes 25mg Take 25 mg U nivers 25 mg 3-07 by mouth 2 ity of tablet 01:16: (two) [place] 39 times Medical daily with Branch meals. proMETHazin 2020-0 Yes 12.5mg Take 12.5 Univers e 25 mg 3-07 mg by ity of tablet 01:16: mouth 3 [place] 39 (three) Medical times Branch daily as needed for Nausea and Vomiting (N/V). insulin 2020-0 Yes inject [facility] aspart 3-07 under the ity of U-100 01:16: skin. [place] (NOVOLOG 39 Medical FLEXPEN Branch U-100 INSULIN) 100 unit/mL (3 mL) injection carvediloL 2020-0 Yes 25mg Take 25 mg U nivers 25 mg 3-07 by mouth 2 ity of tablet 01:16: (two) [place] 39 times Medical daily with Branch meals. proMETHazin 2020-0 Yes 12.5mg Take 12.5 Univers e 25 mg 3-07 mg by ity of tablet 01:16: mouth 3 [place] 39 (three) Medical times Branch daily as needed for Nausea and Vomiting (N/V). insulin 2020-0 Yes inject [facility] aspart 3-07 under the ity of U-100 01:16: skin. [place] (NOVOLOG 39 Medical FLEXPEN Branch U-100 INSULIN) 100 unit/mL (3 mL) injection carvediloL 2020-0 Yes 25mg Take 25 mg U nivers 25 mg 3-07 by mouth 2 ity of tablet 01:16: (two) [place] 39 times Medical daily with Branch meals. proMETHazin 2020-0 Yes 12.5mg Take 12.5 Univers e 25 mg 3-07 mg by ity of tablet 01:16: mouth 3 [place] 39 (three) Medical times Branch daily as needed for Nausea and Vomiting (N/V). insulin 2020-0 Yes inject [facility] aspart 3-07 under the ity of U-100 01:16: skin. [place] (NOVOLOG 39 Medical FLEXPEN Branch U-100 INSULIN) 100 unit/mL (3 mL) injection carvediloL 2020-0 Yes 25mg Take 25 mg U nivers 25 mg 3-07 by mouth 2 ity of tablet 01:16: (two) [place] 39 times Medical daily with Branch meals. proMETHazin 2020-0 Yes 12.5mg Take 12.5 Univers e 25 mg 3-07 mg by ity of tablet 01:16: mouth 3 [place] 39 (three) Medical times Branch daily as needed for Nausea and Vomiting (N/V). insulin 2020-0 Yes inject [facility] aspart 3-07 under the ity of U-100 01:16: skin. [place] (NOVOLOG 39 Medical FLEXPEN Branch U-100 INSULIN) 100 unit/mL (3 mL) injection carvediloL 2020-0 Yes 25mg Take 25 mg U nivers 25 mg 3-07 by mouth 2 ity of tablet 01:16: (two) [place] 39 times Medical daily with Branch meals. proMETHazin 2020-0 Yes 12.5mg Take 12.5 Univers e 25 mg 3-07 mg by ity of tablet 01:16: mouth 3 [place] 39 (three) Medical times Branch daily as needed for Nausea and Vomiting (N/V). insulin 2020-0 Yes inject [facility] aspart 3-07 under the ity of U-100 01:16: skin. [place] (NOVOLOG 39 Medical FLEXPEN Branch U-100 INSULIN) 100 unit/mL (3 mL) injection carvediloL 2020-0 Yes 25mg Take 25 mg U nivers 25 mg 3-07 by mouth 2 ity of tablet 01:16: (two) [place] 39 times Medical daily with Branch meals. proMETHazin 2020-0 Yes 12.5mg Take 12.5 Univers e 25 mg 3-07 mg by ity of tablet 01:16: mouth 3 [place] 39 (three) Medical times Branch daily as needed for Nausea and Vomiting (N/V). insulin 2020-0 Yes inject [facility] aspart 3-07 under the ity of U-100 01:16: skin. [place] (NOVOLOG 39 Medical FLEXPEN Branch U-100 INSULIN) 100 unit/mL (3 mL) injection carvediloL 2020-0 Yes 25mg Take 25 mg U nivers 25 mg 3-07 by mouth 2 ity of tablet 01:16: (two) [place] [place] 39 times Medical daily with Branch meals. proMETHazin 2020-0 Yes 12.5mg Take 12.5 [facility] 25 mg 3-07 mg by ity of tablet 01:16: mouth 3 [place] [address] (three) Medical times Branch daily as needed for Nausea and Vomiting (N/V). insulin 2020-0 Yes inject [facility] aspart 3-07 under the ity of U-100 01:16: skin. [place] (NOVOLOG 39 Medical FLEXPEN Branch U-100 INSULIN) 100 unit/mL (3 mL) injection carvediloL 2020-0 Yes 25mg Take 25 mg U nivers 25 mg 3-07 by mouth 2 ity of tablet 01:16: (two) [place] 39 times Medical daily with Branch meals. proMETHazin 2020-0 Yes 12.5mg Take 12.5 [facility] 25 mg 3-07 mg by ity of tablet 01:16: mouth 3 [place] 39 (three) Medical times Branch daily as needed for Nausea and Vomiting (N/V). insulin 2020-0 Yes inject [facility] aspart 3-07 under the ity of U-100 01:16: skin. [place] (NOVOLOG 39 Medical FLEXPEN Branch U-100 INSULIN) 100 unit/mL (3 mL) injection carvediloL 2020-0 Yes 25mg Take 25 mg [facility] nivers 25 mg 3-07 by mouth 2 ity of tablet 01:16: (two) [place] 39 times Medical daily with Branch meals. proMETHazin 2020-0 Yes 12.5mg Take 12.5 [facility] 25 mg 3-07 mg by ity of tablet 01:16: mouth 3 [place] [address] (three) Medical times Branch daily as needed for Nausea and Vomiting (N/V). insulin 2020-0 Yes inject [facility] aspart 3-07 under the ity of U-100 01:16: skin. [place] (NOVOLOG 39 Medical FLEXPEN Branch U-100 INSULIN) 100 unit/mL (3 mL) injection carvediloL 2020-0 Yes 25mg Take 25 mg [facility] nivers 25 mg 3-07 by mouth 2 ity of tablet 01:16: (two) [place] 39 times Medical daily with Branch meals. proMETHazin 2020-0 Yes 12.5mg Take 12.5 [facility] 25 mg 3-07 mg by ity of tablet 01:16: mouth 3 [place] [address] (three) Medical times Branch daily as needed for Nausea and Vomiting (N/V). insulin 2020-0 Yes inject [facility] aspart 3-07 under the ity of U-100 01:16: skin. [place] (NOVOLOG 39 Medical FLEXPEN Branch U-100 INSULIN) 100 unit/mL (3 mL) injection carvediloL 2020-0 Yes 25mg Take 25 mg [facility] nivers 25 mg 3-07 by mouth 2 ity of tablet 01:16: (two) [place] 39 times Medical daily with Branch meals. proMETHazin 2020-0 Yes 12.5mg Take 12.5 [facility] 25 mg 3-07 mg by ity of tablet 01:16: mouth 3 [place] 39 (three) Medical times Branch daily as needed for Nausea and Vomiting (N/V). insulin 2020-0 Yes inject [facility] aspart 3-07 under the ity of U-100 01:16: skin. [place] (NOVOLOG 39 Medical FLEXPEN Branch U-100 INSULIN) 100 unit/mL (3 mL) injection carvediloL 2020-0 Yes 25mg Take 25 mg [facility] nivers 25 mg 3-07 by mouth 2 ity of tablet 01:16: (two) [place] 39 times Medical daily with Branch meals. proMETHazin 2020-0 Yes 12.5mg Take 12.5 [facility] 25 mg 3-07 mg by ity of tablet 01:16: mouth 3 [place] [address] (three) Medical times Branch daily as needed for Nausea and Vomiting (N/V). insulin 2020-0 Yes inject [facility] aspart 3-07 under the ity of U-100 01:16: skin. [place] (NOVOLOG 39 Medical FLEXPEN Branch U-100 INSULIN) 100 unit/mL (3 mL) injection carvediloL 2020-0 Yes 25mg Take 25 mg [facility] nivers 25 mg 3-07 by mouth 2 ity of tablet 01:16: (two) [place] 39 times Medical daily with Branch meals. proMETHazin 2020-0 Yes 12.5mg Take 12.5 [facility] 25 mg 3-07 mg by ity of tablet 01:16: mouth 3 [place] [address] (three) Medical times Branch daily as needed for Nausea and Vomiting (N/V). insulin 2020-0 Yes inject [facility] aspart 3-07 under the ity of U-100 01:16: skin. [place] (NOVOLOG 39 Medical FLEXPEN Branch U-100 INSULIN) 100 unit/mL (3 mL) injection carvediloL 2020-0 Yes 25mg Take 25 mg [facility] nivers 25 mg 3-07 by mouth 2 ity of tablet 01:16: (two) [place] 39 times Medical daily with Branch meals. proMETHazin 2020-0 Yes 12.5mg Take 12.5 [facility] 25 mg 3-07 mg by ity of tablet 01:16: mouth 3 [place] [address] (three) Medical times Branch daily as needed for Nausea and Vomiting (N/V). insulin 2020-0 Yes inject [facility] aspart 3-07 under the ity of U-100 01:16: skin. [place] (NOVOLOG 39 Medical FLEXPEN Branch U-100 INSULIN) 100 unit/mL (3 mL) injection carvediloL 2020-0 Yes 25mg Take 25 mg [facility] nivers 25 mg 3-07 by mouth 2 ity of tablet 01:16: (two) [place] 39 times Medical daily with Branch meals. proMETHazin 2020-0 Yes 12.5mg Take 12.5 [facility] 25 mg 3-07 mg by ity of tablet 01:16: mouth 3 [place] 39 (three) Medical times Branch daily as needed for Nausea and Vomiting (N/V). insulin 2020-0 Yes inject [facility] aspart 3-07 under the ity of U-100 01:16: skin. [place] (NOVOLOG 39 Medical FLEXPEN Branch U-100 INSULIN) 100 unit/mL (3 mL) injection carvediloL 2020-0 Yes 25mg Take 25 mg [facility] nivers 25 mg 3-07 by mouth 2 ity of tablet 01:16: (two) [place] 39 times Medical daily with Branch meals. proMETHazin 2020-0 Yes 12.5mg Take 12.5 [facility] 25 mg 3-07 mg by ity of tablet 01:16: mouth 3 [place] 39 (three) Medical times Branch daily as needed for Nausea and Vomiting (N/V). insulin 2020-0 Yes inject [facility] aspart 3-07 under the ity of U-100 01:16: skin. [place] (NOVOLOG 39 Medical FLEXPEN Branch U-100 INSULIN) 100 unit/mL (3 mL) injection carvediloL 2020-0 Yes 25mg Take 25 mg U nivers 25 mg 3-07 by mouth 2 ity of tablet 01:16: (two) [place] 39 times Medical daily with Branch meals. proMETHazin 2020-0 Yes 12.5mg Take 12.5 [facility] 25 mg 3-07 mg by ity of tablet 01:16: mouth 3 [place] 39 (three) Medical times Branch daily as needed for Nausea and Vomiting (N/V). insulin 2020-0 Yes inject [facility] aspart 3-07 under the ity of U-100 01:16: skin. [place] (NOVOLOG 39 Medical FLEXPEN Branch U-100 INSULIN) 100 unit/mL (3 mL) injection carvediloL 2020-0 Yes 25mg Take 25 mg U nivers 25 mg 3-07 by mouth 2 ity of tablet 01:16: (two) [place] 39 times Medical daily with Branch meals. proMETHazin 2020-0 Yes 12.5mg Take 12.5 [facility] 25 mg 3-07 mg by ity of tablet 01:16: mouth 3 [place] 39 (three) Medical times Branch daily as needed for Nausea and Vomiting (N/V). insulin 2020-0 Yes inject [facility] aspart 3-07 under the ity of U-100 01:16: skin. [place] (NOVOLOG 39 Medical FLEXPEN Branch U-100 INSULIN) 100 unit/mL (3 mL) injection carvediloL 2020-0 Yes 25mg Take 25 mg [facility] nivers 25 mg 3-07 by mouth 2 ity of tablet 01:16: (two) [place] 39 times Medical daily with Branch meals. proMETHazin 2020-0 Yes 12.5mg Take 12.5 [facility] 25 mg 3-07 mg by ity of tablet 01:16: mouth 3 [place] [address] (three) Medical times Branch daily as needed for Nausea and Vomiting (N/V). insulin 2020-0 Yes inject [facility] aspart 3-07 under the ity of U-100 01:16: skin. [place] (NOVOLOG 39 Medical FLEXPEN Branch U-100 INSULIN) 100 unit/mL (3 mL) injection carvediloL 2020-0 Yes 25mg Take 25 mg U nivers 25 mg 3-07 by mouth 2 ity of tablet 01:16: (two) [place] 39 times Medical daily with Branch meals. proMETHazin 2020-0 Yes 12.5mg Take 12.5 [facility] 25 mg 3-07 mg by ity of tablet 01:16: mouth 3 [place] [address] (three) Medical times Branch daily as needed for Nausea and Vomiting (N/V). insulin 2020-0 Yes inject [facility] aspart 3-07 under the ity of U-100 01:16: skin. [place] (NOVOLOG 39 Medical FLEXPEN Branch U-100 INSULIN) 100 unit/mL (3 mL) injection carvediloL 2020-0 Yes 25mg Take 25 mg U nivers 25 mg 3-07 by mouth 2 ity of tablet 01:16: (two) [place] 39 times Medical daily with Branch meals. proMETHazin 2020-0 Yes 12.5mg Take 12.5 [facility] 25 mg 3-07 mg by ity of tablet 01:16: mouth 3 [place] 39 (three) Medical times Branch daily as needed for Nausea and Vomiting (N/V). insulin 2020-0 Yes inject [facility] aspart 3-07 under the ity of U-100 01:16: skin. [place] (NOVOLOG 39 Medical FLEXPEN Branch U-100 INSULIN) 100 unit/mL (3 mL) injection carvediloL 2020-0 Yes 25mg Take 25 mg [facility] nivers 25 mg 3-07 by mouth 2 ity of tablet 01:16: (two) [place] 39 times Medical daily with Branch meals. proMETHazin 2020-0 Yes 12.5mg Take 12.5 [facility] 25 mg 3-07 mg by ity of tablet 01:16: mouth 3 [place] 39 (three) Medical times Branch daily as needed for Nausea and Vomiting (N/V). insulin 2020-0 Yes inject [facility] aspart 3-07 under the ity of U-100 01:16: skin. [place] (NOVOLOG 39 Medical FLEXPEN Branch U-100 INSULIN) 100 unit/mL (3 mL) injection carvediloL 2020-0 Yes 25mg Take 25 mg U nivers 25 mg 3-07 by mouth 2 ity of tablet 01:16: (two) [place] 39 times Medical daily with Branch meals. proMETHazin 2020-0 Yes 12.5mg Take 12.5 [facility] 25 mg 3-07 mg by ity of tablet 01:16: mouth 3 [place] 39 (three) Medical times Branch daily as needed for Nausea and Vomiting (N/V). insulin 2020-0 Yes inject [facility] aspart 3-07 under the ity of U-100 01:16: skin. [place] (NOVOLOG 39 Medical FLEXPEN Branch U-100 INSULIN) 100 unit/mL (3 mL) injection carvediloL 2020-0 Yes 25mg Take 25 mg U nivers 25 mg 3-07 by mouth 2 ity of tablet 01:16: (two) [place] 39 times Medical daily with Branch meals. proMETHazin 2020-0 Yes 12.5mg Take 12.5 [facility] 25 mg 3-07 mg by ity of tablet 01:16: mouth 3 [place] [address] (three) Medical times Branch daily as needed for Nausea and Vomiting (N/V). insulin 2020-0 Yes inject [facility] aspart 3-07 under the ity of U-100 01:16: skin. [place] (NOVOLOG 39 Medical FLEXPEN Branch U-100 INSULIN) 100 unit/mL (3 mL) injection carvediloL 2020-0 Yes 25mg Take 25 mg U nivers 25 mg 3-07 by mouth 2 ity of tablet 01:16: (two) [place] 39 times Medical daily with Branch meals. proMETHazin 2020-0 Yes 12.5mg Take 12.5 [facility] e 25 mg 3-07 mg by ity of tablet 01:16: mouth 3 [place] 39 (three) Medical times Branch daily as needed for Nausea and Vomiting (N/V). insulin 2020-0 Yes inject [facility] aspart 3-07 under the ity of U-100 01:16: skin. [place] (NOVOLOG 39 Medical FLEXPEN Branch U-100 INSULIN) 100 unit/mL (3 mL) injection carvediloL 2020-0 Yes 25mg Take 25 mg U nivers 25 mg 3-07 by mouth 2 ity of tablet 01:16: (two) [place] 39 times Medical daily with Branch meals. proMETHazin 2020-0 Yes 12.5mg Take 12.5 [facility] e 25 mg 3-07 mg by ity of tablet 01:16: mouth 3 [place] [address] (three) Medical times Branch daily as needed for Nausea and Vomiting (N/V). insulin 2020-0 Yes inject [facility] aspart 3-07 under the ity of U-100 01:16: skin. [place] (NOVOLOG 39 Medical FLEXPEN Branch U-100 INSULIN) 100 unit/mL (3 mL) injection carvediloL 2020-0 Yes 25mg Take 25 mg U nivers 25 mg 3-07 by mouth 2 ity of tablet 01:16: (two) [place] 39 times Medical daily with Branch meals. proMETHazin 2020-0 Yes 12.5mg Take 12.5 [facility] e 25 mg 3-07 mg by ity of tablet 01:16: mouth 3 [place] [address] (three) Medical times Branch daily as needed for Nausea and Vomiting (N/V). insulin 2020-0 Yes inject [facility] aspart 3-07 under the ity of U-100 01:16: skin. [place] (NOVOLOG 39 Medical FLEXPEN Branch U-100 INSULIN) 100 unit/mL (3 mL) injection carvediloL 2020-0 Yes 25mg Take 25 mg U nivers 25 mg 3-07 by mouth 2 ity of tablet 01:16: (two) [place] 39 times Medical daily with Branch meals. proMETHazin 2020-0 Yes 12.5mg Take 12.5 [facility] e 25 mg 3-07 mg by ity of tablet 01:16: mouth 3 [place] 39 (three) Medical times Branch daily as needed for Nausea and Vomiting (N/V). insulin 2020-0 Yes inject [facility] aspart 3-07 under the ity of U-100 01:16: skin. [place] (NOVOLOG 39 Medical FLEXPEN Branch U-100 INSULIN) 100 unit/mL (3 mL) injection carvediloL 2020-0 Yes 25mg Take 25 mg U nivers 25 mg 3-07 by mouth 2 ity of tablet 01:16: (two) [place] 39 times Medical daily with Branch meals. proMETHazin 2020-0 Yes 12.5mg Take 12.5 [facility] 25 mg 3-07 mg by ity of tablet 01:16: mouth 3 [place] [address] (three) Medical times Branch daily as needed for Nausea and Vomiting (N/V). insulin 2020-0 Yes inject [facility] aspart 3-07 under the ity of U-100 01:16: skin. [place] (NOVOLOG 39 Medical FLEXPEN Branch U-100 INSULIN) 100 unit/mL (3 mL) injection carvediloL 2020-0 Yes 25mg Take 25 mg U nivers 25 mg 3-07 by mouth 2 ity of tablet 01:16: (two) [place] 39 times Medical daily with Branch meals. proMETHazin 2020-0 Yes 12.5mg Take 12.5 [facility] e 25 mg 3-07 mg by ity of tablet 01:16: mouth 3 [place] [address] (three) Medical times Branch daily as needed for Nausea and Vomiting (N/V). insulin 2020-0 Yes inject [facility] aspart 3-07 under the ity of U-100 01:16: skin. [place] (NOVOLOG 39 Medical FLEXPEN Branch U-100 INSULIN) 100 unit/mL (3 mL) injection carvediloL 2020-0 Yes 25mg Take 25 mg U nivers 25 mg 3-07 by mouth 2 ity of tablet 01:16: (two) [place] 39 times Medical daily with Branch meals. proMETHazin 2020-0 Yes 12.5mg Take 12.5 [facility] e 25 mg 3-07 mg by ity of tablet 01:16: mouth 3 [place] [address] (three) Medical times Branch daily as needed for Nausea and Vomiting (N/V). insulin 2020-0 Yes inject [facility] aspart 3-07 under the ity of U-100 01:16: skin. [place] (NOVOLOG 39 Medical FLEXPEN Branch U-100 INSULIN) 100 unit/mL (3 mL) injection carvediloL 2020-0 Yes 25mg Take 25 mg U nivers 25 mg 3-07 by mouth 2 ity of tablet 01:16: (two) [place] 39 times Medical daily with Branch meals. proMETHazin 2020-0 Yes 12.5mg Take 12.5 [facility] e 25 mg 3-07 mg by ity of tablet 01:16: mouth 3 [place] 39 (three) Medical times Branch daily as needed for Nausea and Vomiting (N/V). insulin 2020-0 Yes inject [facility] aspart 3-07 under the ity of U-100 01:16: skin. [place] (NOVOLOG 39 Medical FLEXPEN Branch U-100 INSULIN) 100 unit/mL (3 mL) injection carvediloL 2020-0 Yes 25mg Take 25 mg U nivers 25 mg 3-07 by mouth 2 ity of tablet 01:16: (two) [place] 39 times Medical daily with Branch meals. proMETHazin 2020-0 Yes 12.5mg Take 12.5 [facility] e 25 mg 3-07 mg by ity of tablet 01:16: mouth 3 [place] 39 (three) Medical times Branch daily as needed for Nausea and Vomiting (N/V). insulin 2020-0 Yes inject [facility] aspart 3-07 under the ity of U-100 01:16: skin. [place] (NOVOLOG 39 Medical FLEXPEN Branch U-100 INSULIN) 100 unit/mL (3 mL) injection carvediloL 2020-0 Yes 25mg Take 25 mg U nivers 25 mg 3-07 by mouth 2 ity of tablet 01:16: (two) [place] 39 times Medical daily with Branch meals. proMETHazin 2020-0 Yes 12.5mg Take 12.5 [facility] e 25 mg 3-07 mg by ity of tablet 01:16: mouth 3 [place] 39 (three) Medical times Branch daily as needed for Nausea and Vomiting (N/V). insulin 2020-0 Yes inject [facility] aspart 3-07 under the ity of U-100 01:16: skin. [place] (NOVOLOG 39 Medical FLEXPEN Branch U-100 INSULIN) 100 unit/mL (3 mL) injection carvediloL 2020-0 Yes 25mg Take 25 mg U nivers 25 mg 3-07 by mouth 2 ity of tablet 01:16: (two) [place] 39 times Medical daily with Branch meals. proMETHazin 2020-0 Yes 12.5mg Take 12.5 [facility] e 25 mg 3-07 mg by ity of tablet 01:16: mouth 3 [place] [address] (three) Medical times Branch daily as needed for Nausea and Vomiting (N/V). insulin 2020-0 Yes inject [facility] aspart 3-07 under the ity of U-100 01:16: skin. [place] (NOVOLOG 39 Medical FLEXPEN Branch U-100 INSULIN) 100 unit/mL (3 mL) injection carvediloL 2020-0 Yes 25mg Take 25 mg U nivers 25 mg 3-07 by mouth 2 ity of tablet 01:16: (two) [place] 39 times Medical daily with Branch meals. proMETHazin 2020-0 Yes 12.5mg Take 12.5 [facility] e 25 mg 3-07 mg by ity of tablet 01:16: mouth 3 [place] [address] (three) Medical times Branch daily as needed for Nausea and Vomiting (N/V). insulin 2020-0 Yes inject [facility] aspart 3-07 under the ity of U-100 01:16: skin. [place] (NOVOLOG 39 Medical FLEXPEN Branch U-100 INSULIN) 100 unit/mL (3 mL) injection carvediloL 2020-0 Yes 25mg Take 25 mg U nivers 25 mg 3-07 by mouth 2 ity of tablet 01:16: (two) [place] 39 times Medical daily with Branch meals. proMETHazin 2020-0 Yes 12.5mg Take 12.5 [facility] e 25 mg 3-07 mg by ity of tablet 01:16: mouth 3 [place] [address] (three) Medical times Branch daily as needed for Nausea and Vomiting (N/V). insulin 2020-0 Yes inject [facility] aspart 3-07 under the ity of U-100 01:16: skin. [place] (NOVOLOG 39 Medical FLEXPEN Branch U-100 INSULIN) 100 unit/mL (3 mL) injection carvediloL 2020-0 Yes 25mg Take 25 mg U nivers 25 mg 3-07 by mouth 2 ity of tablet 01:16: (two) [place] 39 times Medical daily with Branch meals. proMETHazin 2020-0 Yes 12.5mg Take 12.5 [facility] e 25 mg 3-07 mg by ity of tablet 01:16: mouth 3 [place] 39 (three) Medical times Branch daily as needed for Nausea and Vomiting (N/V). insulin 2020-0 Yes inject [facility] aspart 3-07 under the ity of U-100 01:16: skin. [place] (NOVOLOG 39 Medical FLEXPEN Branch U-100 INSULIN) 100 unit/mL (3 mL) injection carvediloL 2020-0 Yes 25mg Take 25 mg U nivers 25 mg 3-07 by mouth 2 ity of tablet 01:16: (two) [place] 39 times Medical daily with Branch meals. proMETHazin 2020-0 Yes 12.5mg Take 12.5 [facility] e 25 mg 3-07 mg by ity of tablet 01:16: mouth 3 [place] 39 (three) Medical times Branch daily as needed for Nausea and Vomiting (N/V). insulin 2020-0 Yes inject [facility] aspart 3-07 under the ity of U-100 01:16: skin. [place] (NOVOLOG 39 Medical FLEXPEN Branch U-100 INSULIN) 100 unit/mL (3 mL) injection pregabalin 2019-0 2020- No 300mg Take 300 U nivers 300 mg 3- 03-06 mg by ity of capsule 01:15: 00:00 mouth. [place] 02 :00 Medical Branch nitroglycer 2019- 2020- No .3mg Place 0.3 Univers in 0.3 mg 04-20 03-06 mg under ity o f sublingual 01:14: 00:00 the tongue [place] tablet 27 :00 every 5 Medical (five) Branch minutes as needed for Chest pain. losartan-hy 2019-0 2020- No Take by U nivers drochloroth 04-20 03-06 mouth. ity o f iazide 01:14: 00:00 [place] 100-25 mg 09 :00 Medical per tablet Branch insulin 2019-0 2020- No inject Univers lispro, 04-20 03-06 under the ity of human, 100 01:14: 00:00 skin. [place] unit/mL 06 :00 Medical injection Branch acetaminoph 2019-0 2020- No 500mg Take 500 Univers en [...] the ity of unit/mL (3 00:22: skin. [place] mL) 08 Medical injection Branch pregabalin 2020-0 Yes 300mg Take 300 Un osbaldo 300 mg 3-07 mg by ity of capsule 00:22: mouth. [place] [address] Medical Branch acetaminoph 2020-0 Yes 500mg Take 500 U nivers en (TYLENOL 3-07 mg by ity of EXTRA 00:22: mouth [place] STRENGTH) 08 every 6 Medical 500 mg (six) Branch tablet hours as needed for Pain. Insulin 2020-0 Yes inject [facility] Detemir 100 3-07 under the ity of unit/mL (3 00:22: skin. [facility] [place] [facility]) 08 Medical injection Branch carvediloL 2020-0 Yes 25mg Take 25 mg U nivers 25 mg 3-07 by mouth. ity of tablet 00:22: [place] [address] Medical Branch proMETHazin 2020-0 Yes 12.5mg Take 12.5 [facility] e 25 mg 3-07 mg by ity of tablet 00:22: mouth [place] [address] every 6 Medical (six) Branch hours as needed for Nausea and Vomiting (N/V). insulin 2020-0 Yes inject [facility] aspart 3-07 under the ity of U-100 00:22: skin. [place] (NOVOLOG 08 Medical FLEXPEN Branch U-100 INSULIN) 100 unit/mL (3 mL) injection Insulin 2020-0 Yes inject [facility] Detemir 100 3-07 under the ity of unit/mL (3 00:22: skin. [place] mL) 08 Medical injection Branch Insulin 2020-0 [...] by ity of capsule 00:13: mouth 2 [place] 40 (two) Medical times Branch daily. gabapentin 2020-0 Yes 100mg Take 100 Un osbaldo 100 mg 3-07 mg by ity of capsule 00:13: mouth [address] [place] [address] (two) Medical times Branch daily. gabapentin 2020-0 Yes 100mg Take 100 Un osbaldo 100 mg 3-07 mg by ity of capsule 00:13: mouth [address] [place] [address] (two) Medical times Branch daily. gabapentin 2020-0 Yes 100mg Take 100 Un osbaldo 100 mg 3-07 mg by ity of capsule 00:13: mouth [address] [place] [id number] 40 (two) Medical times Branch daily. gabapentin 2020-0 Yes 100mg Take 100 Un osbaldo 100 mg 3-07 mg by ity of capsule 00:13: mouth [address] [place] [address] (two) Medical times Branch daily. gabapentin 2020-0 Yes 100mg Take 100 Un osbaldo 100 mg 3-07 mg by ity of capsule 00:13: mouth 2 [place] 40 (two) Medical times Branch daily. gabapentin 2020-0 Yes 100mg Take 100 Un osbaldo 100 mg 3-07 mg by ity of capsule 00:13: mouth 2 [place] 40 (two) Medical times Branch daily. gabapentin 2020-0 Yes 100mg Take 100 Un osbaldo 100 mg 3-07 mg by ity of capsule 00:13: mouth 2 [place] 40 (two) Medical times Branch daily. gabapentin 2020-0 Yes 100mg Take 100 Un osbaldo 100 mg 3-07 mg by ity of capsule 00:13: mouth 2 [place] 40 (two) Medical times Branch daily. gabapentin 2020-0 Yes 100mg Take 100 Un osbaldo 100 mg 3-07 mg by ity of capsule 00:13: mouth 2 [place] 40 (two) Medical times Branch daily. gabapentin 2020-0 Yes 100mg Take 100 Un osbaldo 100 mg 3-07 mg by ity of capsule 00:13: mouth 2 [place] 40 (two) Medical times Branch daily. gabapentin 2020-0 Yes 100mg Take 100 Un osbaldo 100 mg 3-07 mg by ity of capsule 00:13: mouth 2 [place] 40 (two) Medical times Branch daily. gabapentin 2020-0 Yes 100mg Take 100 Un osbaldo 100 mg 3-07 mg by ity of capsule 00:13: mouth 2 [place] 40 (two) Medical times Branch daily. gabapentin 2020-0 Yes 100mg Take 100 Un osbaldo 100 mg 3-07 mg by ity of capsule 00:13: mouth 2 [place] 40 (two) Medical times Branch daily. gabapentin 2020-0 Yes 100mg Take 100 Un osbaldo 100 mg 3-07 mg by ity of capsule 00:13: mouth [address] [place] [id number] 40 (two) Medical times Branch daily. gabapentin 2020-0 Yes 100mg Take 100 Un osbaldo 100 mg 3-07 mg by ity of capsule 00:13: mouth 2 [place] 40 (two) Medical times Branch daily. gabapentin 2020-0 Yes 100mg Take 100 Un osbaldo 100 mg 3-07 mg by ity of capsule 00:13: mouth 2 [place] 40 (two) Medical times Branch daily. gabapentin 2020-0 Yes 100mg Take 100 Un osbaldo 100 mg 3-07 mg by ity of capsule 00:13: mouth 2 [place] 40 (two) Medical times Branch daily. gabapentin 2020-0 Yes 100mg Take 100 Un osbaldo 100 mg 3-07 mg by ity of capsule 00:13: mouth 2 [place] 40 (two) Medical times Branch daily. gabapentin 2020-0 Yes 100mg Take 100 Un osbaldo 100 mg 3-07 mg by ity of capsule 00:13: mouth 2 [place] 40 (two) Medical times Branch daily. gabapentin 2020-0 Yes 100mg Take 100 Un osbaldo 100 mg 3-07 mg by ity of capsule 00:13: mouth 2 [place] 40 (two) Medical times Branch daily. gabapentin 2020-0 Yes 100mg Take 100 Un osbaldo 100 mg 3-07 mg by ity of capsule 00:13: mouth 2 [place] 40 (two) Medical times Branch daily. gabapentin 2020-0 Yes 100mg Take 100 Un osbaldo 100 mg 3-07 mg by ity of capsule 00:13: mouth 2 [place] 40 (two) Medical times Branch daily. gabapentin 2020-0 Yes 100mg Take 100 Un osbaldo 100 mg 3-07 mg by ity of capsule 00:13: mouth 2 [place] 40 (two) Medical times Branch daily. gabapentin 2020-0 Yes 100mg Take 100 Un osbaldo 100 mg 3-07 mg by ity of capsule 00:13: mouth 2 [place] 40 (two) Medical times Branch daily. gabapentin 2020-0 Yes 100mg Take 100 Un osbaldo 100 mg 3-07 mg by ity of capsule 00:13: mouth 2 [place] 40 (two) Medical times Branch daily. gabapentin 2020-0 Yes 100mg Take 100 Un osbaldo 100 mg 3-07 mg by ity of capsule 00:13: mouth [address] [place] [address] 40 (two) Medical times Branch daily. gabapentin 2020-0 Yes 100mg Take 100 Un osbaldo 100 mg 3-07 mg by ity of capsule 00:13: mouth [address] [place] [address] 40 (two) Medical times Branch daily. gabapentin 2020-0 Yes 100mg Take 100 Un osbaldo 100 mg 3-07 mg by ity of capsule 00:13: mouth [address] [place] [address] 40 (two) Medical times Branch daily. gabapentin 2020-0 Yes 100mg Take 100 Un osbaldo 100 mg 3-07 mg by ity of capsule 00:13: mouth 2 [place] 40 (two) Medical times Branch daily. gabapentin 2020-0 Yes 100mg Take 100 Un osbaldo 100 mg 3-07 mg by ity of capsule 00:13: mouth 2 [place] 40 (two) Medical times Branch daily. gabapentin 2020-0 Yes 100mg Take 100 Un osbaldo 100 mg 3-07 mg by ity of capsule 00:13: mouth 2 [place] 40 (two) Medical times Branch daily. gabapentin 2020-0 Yes 100mg Take 100 Un osbaldo 100 mg 3-07 mg by ity of capsule 00:13: mouth 2 [place] 40 (two) Medical times Branch daily. gabapentin 2020-0 Yes 100mg Take 100 Un osbaldo 100 mg 3-07 mg by ity of capsule 00:13: mouth 2 [place] 40 (two) Medical times Branch daily. gabapentin 2020-0 Yes 100mg Take 100 Un osbaldo 100 mg 3-07 mg by ity of capsule 00:13: mouth 2 [place] 40 (two) Medical times Branch daily. gabapentin 2020-0 Yes 100mg Take 100 Un osbaldo 100 mg 3-07 mg by ity of capsule 00:13: mouth 2 [place] 40 (two) Medical times Branch daily. gabapentin 2020-0 Yes 100mg Take 100 Un [facility]bal[facility] 100 mg 3-07 mg by ity of capsule 00:13: mouth 2 [place] 40 (two) Medical times Branch daily. gabapentin 2020-0 Yes 100mg Take 100 Un [facility] 100 mg 3-07 mg by ity of capsule 00:13: mouth 2 [place] 40 (two) Medical times Branch daily. gabapentin 2020-0 Yes 100mg Take 100 Un [facility] 100 mg 3-07 mg by ity of capsule 00:13: mouth 2 [place] 40 (two) Medical times Branch daily. gabapentin 2020-0 Yes 100mg Take 100 Un os[facility] 100 mg 3-07 mg by ity of capsule 00:13: mouth [address] [place] [id number] 40 (two) Medical times Branch daily. gabapentin 2020-0 Yes 100mg Take 100 Un osbal[facility] 100 mg 3-07 mg by ity of capsule 00:13: mouth [address] [place] [id number] 40 (two) Medical times Branch daily. gabapentin 2020-0 Yes 100mg Take 100 Un [facility] 100 mg 3-07 mg by ity of capsule 00:13: mouth [address] [place] [id number] 40 (two) Medical times Branch daily. gabapentin 2020-0 Yes 100mg Take 100 Un os[facility] 100 mg 3-07 mg by ity of capsule 00:13: mouth [address] [place] [id number] 40 (two) Medical times Branch daily. gabapentin 2020-0 Yes 100mg Take 100 Un [facility] 100 mg 3-07 mg by ity of capsule 00:13: mouth 2 [place] 40 (two) Medical times Branch daily. gabapentin 2020-0 Yes 100mg Take 100 Un [facility] 100 mg 3-07 mg by ity of capsule 00:13: mouth 2 [place] 40 (two) Medical times Branch daily. gabapentin 2020-0 Yes 100mg Take 100 Un [facility] 100 mg 3-07 mg by ity of capsule 00:13: mouth 2 [place] 40 (two) Medical times Branch daily. gabapentin 2020-0 Yes 100mg Take 100 Un [facility] 100 mg 3-07 mg by ity of capsule 00:13: mouth 2 [place] 40 (two) Medical times Branch daily. gabapentin 2020-0 Yes 100mg Take 100 Un [facility] 100 mg 3-07 mg by ity of capsule 00:13: mouth 2 [place] 40 (two) Medical times Branch daily. gabapentin 2020-0 Yes 100mg Take 100 Un [facility] 100 mg 3-07 mg by ity of capsule 00:13: mouth 2 [place] 40 (two) Medical times Branch daily. gabapentin 2020-0 Yes 100mg Take 100 Un [facility] 100 mg 3-07 mg by ity of capsule 00:13: mouth 2 [place] 40 (two) Medical times Branch daily. gabapentin 2020-0 Yes 100mg Take 100 Un [facility] 100 mg 3-07 mg by ity of capsule 00:13: mouth 2 [place] 40 (two) Medical times Branch daily. gabapentin 2020-0 Yes 100mg Take 100 Un [facility] 100 mg 3-07 mg by ity of capsule 00:13: mouth 2 [place] 40 (two) Medical times Branch daily. gabapentin 2020-0 Yes 100mg Take 100 Un [facility] 100 mg 3-07 mg by ity of capsule 00:13: mouth [address] [place] [id number] 40 (two) Medical times Branch daily. gabapentin 2020-0 Yes 100mg Take 100 Un [facility] 100 mg 3-07 mg by ity of capsule 00:13: mouth [address] [place] [id number] 40 (two) Medical times Branch daily. hydrALAZINE 2020-0 Yes 50mg Take 50 mg [facility] 50 mg 3-07 by mouth 3 ity of tablet 00:01: (three) [place] [address] times Medical daily with Branch meals. hydrALAZINE 2020-0 Yes 50mg Take 50 mg [facility] 50 mg 3-07 by mouth 3 ity of tablet 00:01: (three) [place] [address] times Medical daily with Branch meals. hydrALAZINE 2020-0 Yes 50mg Take 50 mg [facility] 50 mg 3-07 by mouth 3 ity of tablet 00:01: (three) [place] [address] times Medical daily with Branch meals. hydrALAZINE 2020-0 Yes 50mg Take 50 mg [facility] 50 mg 3-07 by mouth 3 ity of tablet 00:01: (three) [place] [address] times Medical daily with Branch meals. hydrALAZINE 2020-0 Yes 50mg Take 50 mg [facility] 50 mg 3-07 by mouth 3 ity of tablet 00:01: (three) [place] [address] times Medical daily with Branch meals. hydrALAZINE 2020-0 Yes 50mg Take 50 mg [facility] 50 mg 3-07 by mouth 3 ity of tablet 00:01: (three) [place] 47 times Medical daily with Branch meals. hydrALAZINE 2020-0 Yes 50mg Take 50 mg [facility] 50 mg 3-07 by mouth 3 ity of tablet 00:01: (three) [place] [address] times Medical daily with Branch meals. hydrALAZINE 2020-0 Yes 50mg Take 50 mg [facility] 50 mg 3-07 by mouth 3 ity of tablet 00:01: (three) [place] 47 times Medical daily with Branch meals. hydrALAZINE 2020-0 Yes 50mg Take 50 mg [facility] 50 mg 3-07 by mouth 3 ity of tablet 00:01: (three) [place] 47 times Medical daily with Branch meals. hydrALAZINE 2020-0 Yes 50mg Take 50 mg [facility] 50 mg 3-07 by mouth 3 ity of tablet 00:01: ([facility]) [place] [address] times Medical daily with Branch meals. hydrALAZINE 2020-0 Yes 50mg Take 50 mg [facility] 50 mg 3-07 by mouth 3 ity of tablet 00:01: ([facility]) [place] [address] times Medical daily with Branch meals. hydrALAZINE 2020-0 Yes 50mg Take 50 mg [facility] 50 mg 3-07 by mouth 3 ity of tablet 00:01: ([facility]) [place] [address] times Medical daily with Branch meals. hydrALAZINE 2020-0 Yes 50mg Take 50 mg [facility] 50 mg 3-07 by mouth 3 ity of tablet 00:01: ([facility]) [place] [address] times Medical daily with Branch meals. hydrALAZINE 2020-0 Yes 50mg Take 50 mg [facility] 50 mg 3-07 by mouth 3 ity of tablet 00:01: (three) [place] [address] times Medical daily with Branch meals. hydrALAZINE 2020-0 Yes 50mg Take 50 mg [facility] 50 mg 3-07 by mouth 3 ity of tablet 00:01: (three) [place] [address] times Medical daily with Branch meals. hydrALAZINE 2020-0 Yes 50mg Take 50 mg [facility] 50 mg 3-07 by mouth 3 ity of tablet 00:01: (three) [place] [address] times Medical daily with Branch meals. hydrALAZINE 2020-0 Yes 50mg Take 50 mg [facility] 50 mg 3-07 by mouth 3 ity of tablet 00:01: (three) [place] [address] times Medical daily with Branch meals. hydrALAZINE 2020-0 Yes 50mg Take 50 mg [facility] 50 mg 3-07 by mouth 3 ity of tablet 00:01: (three) [place] 47 times Medical daily with Branch meals. hydrALAZINE 2020-0 Yes 50mg Take 50 mg [facility] 50 mg 3-07 by mouth 3 ity of tablet 00:01: ([facility]) [place] 47 times Medical daily with Branch meals. hydrALAZINE 2020-0 Yes 50mg Take 50 mg [facility] 50 mg 3-07 by mouth 3 ity of tablet 00:01: (three) [place] 47 times Medical daily with Branch meals. hydrALAZINE 2020-0 Yes 50mg Take 50 mg [facility] 50 mg 3-07 by mouth 3 ity of tablet 00:01: ([facility]) [place] 47 times Medical daily with Branch meals. losartan-hy 2020-0 Yes Take by Un osbaldo drochloroth 3-07 mouth. ity of iazide 00:01: [place] 100-25 mg 47 Medical per tablet Branch hydrALAZINE 2020-0 Yes 50mg Take 50 mg [facility] 50 mg 3-07 by mouth 3 ity of tablet 00:01: ([facility]) [place] 47 times Medical daily with Branch meals. hydrALAZINE 2020-0 Yes 50mg Take 50 mg [facility] 50 mg 3-07 by mouth 3 ity of tablet 00:01: ([facility]) [place] 47 times Medical daily with Branch meals. hydrALAZINE 2020-0 Yes 50mg Take 50 mg [facility] 50 mg 3-07 by mouth 3 ity of tablet 00:01: ([facility]) [place] 47 times Medical daily with Branch meals. hydrALAZINE 2020-0 Yes 50mg Take 50 mg [facility] 50 mg 3-07 by mouth 3 ity of tablet 00:01: ([facility]) [place] 47 times Medical daily with Branch meals. hydrALAZINE 2020-0 Yes 50mg Take 50 mg [facility] 50 mg 3-07 by mouth 3 ity of tablet 00:01: (three) [place] 47 times Medical daily with Branch meals. hydrALAZINE 2020-0 Yes 50mg Take 50 mg [facility] 50 mg 3-07 by mouth 3 ity of tablet 00:01: ([facility]) [place] 47 times Medical daily with Branch meals. hydrALAZINE 2020-0 Yes 50mg Take 50 mg [facility] 50 mg 3-07 by mouth 3 ity of tablet 00:01: ([facility]) [place] 47 times Medical daily with Branch meals. hydrALAZINE 2020-0 Yes 50mg Take 50 mg [facility] 50 mg 3-07 by mouth 3 ity of tablet 00:01: (three) [place] 47 times Medical daily with Branch meals. hydrALAZINE 2020-0 Yes 50mg Take 50 mg [facility] 50 mg 3-07 by mouth 3 ity of tablet 00:01: (three) [place] 47 times Medical daily with Branch meals. hydrALAZINE 2020-0 Yes 50mg Take 50 mg [facility] 50 mg 3-07 by mouth 3 ity of tablet 00:01: ([facility]) [place] 47 times Medical daily with Branch meals. hydrALAZINE 2020-0 Yes 50mg Take 50 mg [facility] 50 mg 3-07 by mouth 3 ity of tablet 00:01: ([facility]) [place] 47 times Medical daily with Branch meals. hydrALAZINE 2020-0 Yes 50mg Take 50 mg [facility] 50 mg 3-07 by mouth 3 ity of tablet 00:01: ([facility]) [place] [address] times Medical daily with Branch meals. hydrALAZINE 2020-0 Yes 50mg Take 50 mg [facility] 50 mg 3-07 by mouth 3 ity of tablet 00:01: ([facility]) [place] [address] times Medical daily with Branch meals. hydrALAZINE 2020-0 Yes 50mg Take 50 mg [facility] 50 mg 3-07 by mouth 3 ity of tablet 00:01: ([facility]) [place] [address] times Medical daily with Branch meals. hydrALAZINE 2020-0 Yes 50mg Take 50 mg [facility] 50 mg 3-07 by mouth 3 ity of tablet 00:01: ([facility]) [place] [address] times Medical daily with Branch meals. hydrALAZINE 2020-0 Yes 50mg Take 50 mg [facility] 50 mg 3-07 by mouth 3 ity of tablet 00:01: ([facility]) [place] [address] times Medical daily with Branch meals. hydrALAZINE 2020-0 Yes 50mg Take 50 mg [facility] 50 mg 3-07 by mouth 3 ity of tablet 00:01: (three) [place] [address] times Medical daily with Branch meals. hydrALAZINE 2020-0 Yes 50mg Take 50 mg [facility] 50 mg 3-07 by mouth 3 ity of tablet 00:01: ([facility]) [place] [address] times Medical daily with Branch meals. hydrALAZINE 2020-0 Yes 50mg Take 50 mg [facility] 50 mg 3-07 by mouth 3 ity of tablet 00:01: (three) [place] [address] times Medical daily with Branch meals. hydrALAZINE 2020-0 Yes 50mg Take 50 mg [facility] 50 mg 3-07 by mouth 3 ity of tablet 00:01: ([facility]) [place] 47 times Medical daily with Branch meals. hydrALAZINE 2020-0 Yes 50mg Take 50 mg [facility] 50 mg 3-07 by mouth 3 ity of tablet 00:01: ([facility]) [place] 47 times Medical daily with Branch meals. hydrALAZINE 2020-0 Yes 50mg Take 50 mg [facility] 50 mg 3-07 by mouth 3 ity of tablet 00:01: ([facility]) [place] 47 times Medical daily with Branch meals. hydrALAZINE 2020-0 Yes 50mg Take 50 mg [facility] 50 mg 3-07 by mouth 3 ity of tablet 00:01: ([facility]) [place] 47 times Medical daily with Branch meals. hydrALAZINE 2020-0 Yes 50mg Take 50 mg [facility] 50 mg 3-07 by mouth 3 ity of tablet 00:01: ([facility]) [place] [address] times Medical daily with Branch meals. hydrALAZINE 2020-0 Yes 50mg Take 50 mg [facility] 50 mg 3-07 by mouth 3 ity of tablet 00:01: ([facility]) [place] [address] times Medical daily with Branch meals. hydrALAZINE 2020-0 Yes 50mg Take 50 mg [facility] 50 mg 3-07 by mouth 3 ity of tablet 00:01: ([facility]) [place] [address] times Medical daily with Branch meals. hydrALAZINE 2020-0 Yes 50mg Take 50 mg [facility] 50 mg 3-07 by mouth 3 ity of tablet 00:01: ([facility]) [place] [address] times Medical daily with Branch meals. hydrALAZINE 2020-0 Yes 50mg Take 50 mg [facility] 50 mg 3-07 by mouth 3 ity of tablet 00:01: ([facility]) [place] [address] times Medical daily with Branch meals. hydrALAZINE 2020-0 Yes 50mg Take 50 mg [facility] 50 mg 3-07 by mouth 3 ity of tablet 00:01: ([facility]) [place] [address] times Medical daily with Branch meals. hydrALAZINE 2020-0 Yes 50mg Take 50 mg [facility] 50 mg 3-07 by mouth 3 ity of tablet 00:01: ([facility]) [place] [address] times Medical daily with Branch meals. hydrALAZINE 2020-0 Yes 50mg Take 50 mg [facility] 50 mg 3-07 by mouth 3 ity of tablet 00:01: ([facility]) [place] [address] times Medical daily with Branch meals. hydrALAZINE 2020-0 Yes 50mg Take 50 mg [facility] 50 mg 3-07 by mouth 3 ity of tablet 00:01: (three) [place] 47 times Medical daily with Branch meals. hydrALAZINE 2020-0 Yes 50mg Take 50 mg [facility] 50 mg 3-07 by mouth 3 ity of tablet 00:01: (three) [place] 47 times Medical daily with Branch meals. [...] by mouth. ity of tablet 15:51: 00:00 [place] 24 :00 Medical Branch aspirin-nhi 2020-0 2020- No 1{tbl} Take 1 U nivers taminophen- 3-06 03-06 tablet by it y of caffeine 15:51: 00:00 mouth [place] (EXCEDRIN 24 :00 every 6 Medical MIGRAINE) (six) Branch 250-250-65 hours as mg per needed for tablet Pain. carvedilol 2020-0 2020- No 25mg Take 25 mg Univers 12.5 mg 3-06 03-06 by mouth. ity of tablet 15:51: 00:00 [place] 24 :00 Medical Branch aspirin-nhi 2020-0 2020- [...] needed for tablet Pain. SERTraline 2020-0 Yes [id number] 25mg Take 1 U nivers 25 mg 3-06 tablet by ity of tablet 00:00: mouth [place] 00 daily. Medical Branch SERTraline 2020-0 Yes [id number] 25mg Take 1 U nivers 25 mg 3-06 tablet by ity of tablet 00:00: mouth [place] 00 daily. Medical Branch SERTraline 2020-0 Yes [id number] 25mg Take 1 U nivers 25 mg 3-06 tablet by ity of tablet 00:00: mouth [place] 00 daily. Medical Branch SERTraline 2020-0 Yes [id number] 25mg Take 1 U nivers 25 mg 3-06 tablet by ity of tablet 00:00: mouth [place] 00 daily. Medical Branch SERTraline 2020-0 Yes [id number] 25mg Take 1 U nivers 25 mg 3-06 tablet by ity of tablet 00:00: mouth [place] 00 daily. Medical Branch SERTraline 2020-0 Yes [id number] 25mg Take 1 U nivers 25 mg 3-06 tablet by ity of tablet 00:00: mouth [place] 00 daily. Medical Branch SERTraline 2020-0 Yes [id number] 25mg Take 1 U nivers 25 mg 3-06 tablet by ity of tablet 00:00: mouth [place] 00 daily. Medical Branch SERTraline 2020-0 Yes [id number] 25mg Take 1 U nivers 25 mg 3-06 tablet by ity of tablet 00:00: mouth [place] 00 daily. Medical Branch SERTraline 2020-0 Yes [id number] 25mg Take 1 U nivers 25 mg 3-06 tablet by ity of tablet 00:00: mouth [place] 00 daily. Medical Branch SERTraline 2020-0 Yes [id number] 25mg Take 1 U nivers 25 mg 3-06 tablet by ity of tablet 00:00: mouth [place] 00 daily. Medical Branch SERTraline 2020-0 Yes [id number] 25mg Take 1 U nivers 25 mg 3-06 tablet by ity of tablet 00:00: mouth [place] 00 daily. Medical Branch SERTraline 2020-0 Yes [id number] 25mg Take 1 U nivers 25 mg 3-06 tablet by ity of tablet 00:00: mouth [place] 00 daily. Medical Branch SERTraline 2020-0 Yes [id number] 25mg Take 1 U nivers 25 mg 3-06 tablet by ity of tablet 00:00: mouth [place] 00 daily. Medical Branch SERTraline 2020-0 2020- No [id number] 25mg Take 1 [facility] 25 mg 3-06 05-21 tablet by ity of tablet 00:00: 00:00 mouth [place] 00 :00 daily. Medical Branch SERTraline 2020-0 2020- No [id number] 25mg Take 1 [facility] 25 mg 3-06 05-21 tablet by ity of tablet 00:00: 00:00 mouth [place] 00 :00 daily. Medical Branch butorphanol 2020-0 Yes USE 1 Unive rs 10 mg/mL 3-05 SPRAY IN ity of nasal spray 00:00: NOSTRIL Medical EVERY 8 Branch HOURS NEEDED FOR HEADACHE butorphanol 2020-0 Yes USE 1 Unive rs 10 mg/mL 3-05 SPRAY IN ity of nasal spray 00:00: NOSTRIL Medical EVERY 8 Branch HOURS NEEDED FOR HEADACHE butorphanol 2020-0 Yes USE 1 Unive rs 10 mg/mL 3-05 SPRAY IN ity of nasal spray 00:00: ONE [place] NOSTRIL Medical EVERY 8 Branch HOURS NEEDED FOR HEADACHE butorphanol 2020-0 Yes USE 1 Unive rs 10 mg/mL 3-05 SPRAY IN ity of nasal spray 00:00: ONE [place] NOSTRIL Medical EVERY 8 Branch HOURS NEEDED FOR HEADACHE butorphanol 2020-0 Yes USE 1 Unive rs 10 mg/mL 3-05 SPRAY IN ity of nasal spray 00:00: ONE [place] NOSTRIL Medical EVERY 8 Branch HOURS NEEDED FOR HEADACHE butorphanol 2020-0 Yes USE 1 Unive rs 10 mg/mL 3-05 SPRAY IN ity of nasal spray 00:00: ONE [place] NOSTRIL Medical EVERY 8 Branch HOURS NEEDED FOR HEADACHE butorphanol 2020-0 Yes USE 1 Unive rs 10 mg/mL 3-05 SPRAY IN ity of nasal spray 00:00: ONE [place] NOSTRIL Medical EVERY 8 Branch HOURS NEEDED FOR HEADACHE butorphanol 2020-0 Yes USE 1 Unive rs 10 mg/mL 3-05 SPRAY IN ity of nasal spray 00:00: ONE [place] NOSTRIL Medical EVERY 8 Branch HOURS NEEDED FOR HEADACHE butorphanol 2020-0 Yes USE 1 Unive rs 10 mg/mL 3-05 SPRAY IN ity of nasal spray 00:00: ONE [place] NOSTRIL Medical EVERY 8 Branch HOURS NEEDED FOR HEADACHE butorphanol 2020-0 Yes USE 1 Unive rs 10 mg/mL 3-05 SPRAY IN ity of nasal spray 00:00: ONE [place] NOSTRIL Medical EVERY 8 Branch HOURS NEEDED FOR HEADACHE butorphanol 2020-0 Yes USE 1 Unive rs 10 mg/mL 3-05 SPRAY IN ity of nasal spray 00:00: ONE [place] NOSTRIL Medical EVERY 8 Branch HOURS NEEDED FOR HEADACHE butorphanol 2020-0 2020- No USE 1 Univ ers 10 mg/mL 3-05 04-01 SPRAY IN ity of nasal spray 00:00: 00:00 ONE [place] 00 :00 NOSTRIL Medical EVERY 8 Branch [...] 00 EVERYDAY Medical AT BEDTIME Branch AMITRIPTYLI 2019-0 Yes TAKE 1 Univ ers NE 25 mg 3-02 TABLET BY ity of tablet 00:00: MOUTH [place] 00 EVERYDAY Medical AT BEDTIME Branch AMITRIPTYLI 2019-0 Yes TAKE 1 Univ ers [place] 25 mg 3-02 TABLET BY ity of tablet 00:00: MOUTH [place] 00 EVERYDAY Medical AT BEDTIME Branch AMITRIPTYLI 2019-0 2020- No TAKE 1 Uni vers NE 25 mg 3-02 03-30 TABLET BY ity o f tablet 00:00: 00:00 MOUTH [place] 00 :00 EVERYDAY Medical AT BEDTIME Branch zolpidem 10 2019-0 Yes 10mg Take 10 mg [facility] mg tablet 3-01 by mouth ity of 00:00: at [place] [address] bedtime. I Medical ADVISE Branch AGAINST TAKING THIS MEDICATION DUE TO THE RISKS. [facility] zolpidem 10 2019-0 Yes 10mg Take 10 mg [facility] mg tablet 3-01 by mouth ity of 00:00: at [place] [address] bedtime. I Medical ADVISE Branch AGAINST TAKING THIS MEDICATION DUE TO THE RISKS. [facility] zolpidem 10 2019-0 Yes 10mg Take 10 mg [facility] mg tablet 3-01 by mouth ity of 00:00: at [place] [address] bedtime. I Medical ADVISE Branch AGAINST TAKING THIS MEDICATION DUE TO THE RISKS. [facility] zolpidem 10 2019-0 Yes 10mg Take 10 mg [facility] mg tablet 3-01 by mouth ity of 00:00: at [place] [address] bedtime. I Medical ADVISE Branch AGAINST TAKING THIS MEDICATION DUE TO THE RISKS. [facility] zolpidem 10 2019-0 Yes 10mg Take 10 mg [facility] mg tablet 3-01 by mouth ity of 00:00: at [place] [address] bedtime. I Medical ADVISE Branch AGAINST TAKING THIS MEDICATION DUE TO THE RISKS. [facility] zolpidem 10 2019-0 Yes 10mg Take 10 mg [facility] mg tablet 3-01 by mouth ity of 00:00: at [place] [address] bedtime. I Medical ADVISE Branch AGAINST TAKING THIS MEDICATION DUE TO THE RISKS. [facility] zolpidem 10 2019-0 Yes 10mg Take 10 mg [facility] mg tablet 3-01 by mouth ity of 00:00: at [place] [address] bedtime. I Medical ADVISE Branch AGAINST TAKING THIS MEDICATION DUE TO THE RISKS. [facility] zolpidem 10 2020-0 Yes 10mg Take 10 mg [facility] mg tablet 3-01 by mouth ity of 00:00: at [place] 00 bedtime. I Medical ADVISE Branch AGAINST TAKING THIS MEDICATION DUE TO THE RISKS. [facility] zolpidem 10 2020-0 Yes 10mg Take 10 mg [facility] mg tablet 3-01 by mouth ity of 00:00: at [place] 00 bedtime. I Medical ADVISE Branch AGAINST TAKING THIS MEDICATION DUE TO THE RISKS. [facility] zolpidem 10 2020-0 Yes 10mg Take 10 mg [facility] mg tablet 3-01 by mouth ity of 00:00: at [place] [address] bedtime. I Medical ADVISE Branch AGAINST TAKING THIS MEDICATION DUE TO THE RISKS. [facility] zolpidem 10 2020-0 Yes 10mg Take 10 mg [facility] mg tablet 3-01 by mouth ity of 00:00: at [place] [address] bedtime. I Medical ADVISE Branch AGAINST TAKING THIS MEDICATION DUE TO THE RISKS. [facility] zolpidem 10 2020-0 Yes 10mg Take 10 mg [facility] mg tablet 3-01 by mouth ity of 00:00: at [place] [address] bedtime. I Medical ADVISE Branch AGAINST TAKING THIS MEDICATION DUE TO THE RISKS. [facility] zolpidem 10 2020-0 Yes 10mg Take 10 mg [facility] mg tablet 3-01 by mouth ity of 00:00: at [place] [address] bedtime. I Medical ADVISE Branch AGAINST TAKING THIS MEDICATION DUE TO THE RISKS. [facility] zolpidem 10 2020-0 Yes 10mg Take 10 mg [facility] mg tablet 3-01 by mouth ity of 00:00: at [place] [address] bedtime. I Medical ADVISE Branch AGAINST TAKING THIS MEDICATION DUE TO THE RISKS. [facility] zolpidem 10 2020-0 Yes 10mg Take 10 mg [facility] mg tablet 3-01 by mouth ity of 00:00: at [place] [address] bedtime. I Medical ADVISE Branch AGAINST TAKING THIS MEDICATION DUE TO THE RISKS. [facility] zolpidem 10 2020-0 Yes 10mg Take 10 mg [facility] mg tablet 3-01 by mouth ity of 00:00: at [place] [address] bedtime. I Medical ADVISE Branch AGAINST TAKING THIS MEDICATION DUE TO THE RISKS. [facility] zolpidem 10 2020-0 Yes 10mg Take 10 mg [facility] mg tablet 3-01 by mouth ity of 00:00: at [place] [address] bedtime. I Medical ADVISE Branch AGAINST TAKING THIS MEDICATION DUE TO THE RISKS. [facility] zolpidem 10 2020-0 Yes 10mg Take 10 mg [facility] mg tablet 3-01 by mouth ity of 00:00: at [place] [address] bedtime. I Medical ADVISE Branch AGAINST TAKING THIS MEDICATION DUE TO THE RISKS. [facility] zolpidem 10 2020-0 Yes 10mg Take 10 mg [facility] mg tablet 3-01 by mouth ity of 00:00: at [place] 00 bedtime. I Medical ADVISE Branch AGAINST TAKING THIS MEDICATION DUE TO THE RISKS. [facility] zolpidem 10 2020-0 Yes 10mg Take 10 mg [facility] mg tablet 3-01 by mouth ity of 00:00: at [place] [address] bedtime. I Medical ADVISE Branch AGAINST TAKING THIS MEDICATION DUE TO THE RISKS. [facility] zolpidem 10 2020-0 Yes 10mg Take 10 mg [facility] mg tablet 3-01 by mouth ity of 00:00: at [place] [address] bedtime. [facility] zolpidem 10 2020-0 Yes 10mg Take 10 mg [facility] mg tablet 3-01 by mouth ity of 00:00: at [place] [address] [facility] Branch zolpidem 10 2020-0 Yes 10mg Take 10 mg [facility] mg tablet 3-01 by mouth ity of 00:00: at [place] [address] [facility] Branch zolpidem 10 2020-0 Yes 10mg Take 10 mg [facility] mg tablet 3-01 by mouth ity of 00:00: at [place] [address] bedtime. I Medical ADVISE Branch AGAINST TAKING THIS MEDICATION DUE TO THE RISKS. [facility] zolpidem 10 2020-0 Yes 10mg Take 10 mg [facility] mg tablet 3-01 by mouth ity of 00:00: at [place] [address] bedtime. I Medical ADVISE Branch AGAINST TAKING THIS MEDICATION DUE TO THE RISKS. [facility] zolpidem 10 2020-0 Yes 10mg Take 10 mg [facility] mg tablet 3-01 by mouth ity of 00:00: at [place] [address] bedtime. I Medical ADVISE Branch AGAINST TAKING THIS MEDICATION DUE TO THE RISKS. [facility] zolpidem 10 2020-0 Yes 10mg Take 10 mg [facility] mg tablet 3-01 by mouth ity of 00:00: at [place] [address] bedtime. I Medical ADVISE Branch AGAINST TAKING THIS MEDICATION DUE TO THE RISKS. [facility] zolpidem 10 2020-0 Yes 10mg Take 10 mg [facility] mg tablet 3-01 by mouth ity of 00:00: at [place] 00 bedtime. I Medical ADVISE Branch AGAINST TAKING THIS MEDICATION DUE TO THE RISKS. [facility] zolpidem 10 2020-0 Yes 10mg Take 10 mg [facility] mg tablet 3-01 by mouth ity of 00:00: at [place] 00 bedtime. I Medical ADVISE Branch AGAINST TAKING THIS MEDICATION DUE TO THE RISKS. [facility] zolpidem 10 2020-0 Yes 10mg Take 10 mg [facility] mg tablet 3-01 by mouth ity of 00:00: at [place] 00 bedtime. I Medical ADVISE Branch AGAINST TAKING THIS MEDICATION DUE TO THE RISKS. [facility] zolpidem 10 2020-0 Yes 10mg Take 10 mg [facility] mg tablet 3-01 by mouth ity of 00:00: at [place] [address] bedtime. I Medical ADVISE Branch AGAINST TAKING THIS MEDICATION DUE TO THE RISKS. [facility] zolpidem 10 2020-0 Yes 10mg Take 10 mg [facility] mg tablet 3-01 by mouth ity of 00:00: at [place] [address] bedtime. I Medical ADVISE Branch AGAINST TAKING THIS MEDICATION DUE TO THE RISKS. [facility] zolpidem 10 2020-0 Yes 10mg Take 10 mg [facility] mg tablet 3-01 by mouth ity of 00:00: at [place] [address] bedtime. I Medical ADVISE Branch AGAINST TAKING THIS MEDICATION DUE TO THE RISKS. [facility] zolpidem 10 2020-0 Yes 10mg Take 10 mg [facility] mg tablet 3-01 by mouth ity of 00:00: at [place] [address] bedtime. I Medical ADVISE Branch AGAINST TAKING THIS MEDICATION DUE TO THE RISKS. [facility] zolpidem 10 2020-0 Yes 10mg Take 10 mg [facility] mg tablet 3-01 by mouth ity of 00:00: at [place] [address] bedtime. I Medical ADVISE Branch AGAINST TAKING THIS MEDICATION DUE TO THE RISKS. [facility] zolpidem 10 2020-0 Yes 10mg Take 10 mg [facility] mg tablet 3-01 by mouth ity of 00:00: at [place] [address] bedtime. I Medical ADVISE Branch AGAINST TAKING THIS MEDICATION DUE TO THE RISKS. [facility] zolpidem 10 2020-0 Yes 10mg Take 10 mg [facility] mg tablet 3-01 by mouth ity of 00:00: at [place] [address] bedtime. I Medical ADVISE Branch AGAINST TAKING THIS MEDICATION DUE TO THE RISKS. [facility] zolpidem 10 2020-0 Yes 10mg Take 10 mg [facility] mg tablet 3-01 by mouth ity of 00:00: at [place] 00 bedtime. I Medical ADVISE Branch AGAINST TAKING THIS MEDICATION DUE TO THE RISKS. [facility] zolpidem 10 2020-0 Yes 10mg Take 10 mg [facility] mg tablet 3-01 by mouth ity of 00:00: at [place] 00 bedtime. I Medical ADVISE Branch AGAINST TAKING THIS MEDICATION DUE TO THE RISKS. [facility] zolpidem 10 2020-0 Yes 10mg Take 10 mg [facility] mg tablet 3-01 by mouth ity of 00:00: at [place] [address] bedtime. I Medical ADVISE Branch AGAINST TAKING THIS MEDICATION DUE TO THE RISKS. [facility] zolpidem 10 2020-0 Yes 10mg Take 10 mg [facility] mg tablet 3-01 by mouth ity of 00:00: at [place] [address] bedtime. I Medical ADVISE Branch AGAINST TAKING THIS MEDICATION DUE TO THE RISKS. [facility] zolpidem 10 2020-0 Yes 10mg Take 10 mg [facility] mg tablet 3-01 by mouth ity of 00:00: at [place] [address] bedtime. I Medical ADVISE Branch AGAINST TAKING THIS MEDICATION DUE TO THE RISKS. [facility] zolpidem 10 2020-0 Yes 10mg Take 10 mg [facility] mg tablet 3-01 by mouth ity of 00:00: at [place] [address] bedtime. I Medical ADVISE Branch AGAINST TAKING THIS MEDICATION DUE TO THE RISKS. [facility] zolpidem 10 2020-0 Yes 10mg Take 10 mg [facility] mg tablet 3-01 by mouth ity of 00:00: at [place] [address] bedtime. I Medical ADVISE Branch AGAINST TAKING THIS MEDICATION DUE TO THE RISKS. [facility] zolpidem 10 2020-0 Yes 10mg Take 10 mg [facility] mg tablet 3-01 by mouth ity of 00:00: at [place] [address] bedtime. I Medical ADVISE Branch AGAINST TAKING THIS MEDICATION DUE TO THE RISKS. [facility] zolpidem 10 2020-0 Yes 10mg Take 10 mg [facility] mg tablet 3-01 by mouth ity of 00:00: at [place] [address] bedtime. I Medical ADVISE Branch AGAINST TAKING THIS MEDICATION DUE TO THE RISKS. [facility] zolpidem 10 2020-0 Yes 10mg Take 10 mg [facility] mg tablet 3-01 by mouth ity of 00:00: at [place] [address] bedtime. I Medical ADVISE Branch AGAINST TAKING THIS MEDICATION DUE TO THE RISKS. [facility] zolpidem 10 2020-0 Yes 10mg Take 10 mg [facility] mg tablet 3-01 by mouth ity of 00:00: at [place] [address] bedtime. I Medical ADVISE Branch AGAINST TAKING THIS MEDICATION DUE TO THE RISKS. [facility] zolpidem 10 2020-0 Yes 10mg Take 10 mg [facility] mg tablet 3-01 by mouth ity of 00:00: at [place] [address] bedtime. I Medical ADVISE Branch AGAINST TAKING THIS MEDICATION DUE TO THE RISKS. [facility] zolpidem 10 2020-0 Yes 10mg Take 10 mg [facility] mg tablet 3-01 by mouth ity of 00:00: at [place] [address] bedtime. I Medical ADVISE Branch AGAINST TAKING THIS MEDICATION DUE TO THE RISKS. [facility] zolpidem 10 2020-0 Yes 10mg Take 10 mg [facility] mg tablet 3-01 by mouth ity of 00:00: at [place] [address] bedtime. I Medical ADVISE Branch AGAINST TAKING THIS MEDICATION DUE TO THE RISKS. [facility] zolpidem 10 2020-0 Yes 10mg Take 10 mg [facility] mg tablet 3-01 by mouth ity of 00:00: at [place] [address] bedtime. I Medical ADVISE Branch AGAINST TAKING THIS MEDICATION DUE TO THE RISKS. [facility] zolpidem 10 2020-0 Yes 10mg Take 10 mg [facility] mg tablet 3-01 by mouth ity of 00:00: at [place] [address] bedtime. I Medical ADVISE Branch AGAINST TAKING THIS MEDICATION DUE TO THE RISKS. [facility] zolpidem 10 2020-0 Yes 10mg Take 10 mg [facility] mg tablet 3-01 by mouth ity of 00:00: at [place] [address] bedtime. I Medical ADVISE Branch AGAINST TAKING THIS MEDICATION DUE TO THE RISKS. [facility] zolpidem 10 2020-0 Yes 10mg Take 10 mg [facility] mg tablet 3-01 by mouth ity of 00:00: at [place] [address] bedtime. I Medical ADVISE Branch AGAINST TAKING THIS MEDICATION DUE TO THE RISKS. [facility] zolpidem 10 2020-0 Yes 10mg Take 10 mg [facility] mg tablet 3-01 by mouth ity of 00:00: at [place] [address] bedtime. I Medical ADVISE Branch AGAINST TAKING THIS MEDICATION DUE TO THE RISKS. [facility] ondansetron 2020-0 Yes 4mg [...] 1 Uni vers OXIDE 10 mg 2-27 04-19 CAPSULE BY i ty of capsule 00:00: [...] by ity of tablet 00:00: mouth 3 [place] (three) Medical times Branch daily. cloNIDine 2020-0 Yes .3mg Take 0.3 Univ ers 0.3 mg 2-26 mg by ity of tablet 00:00: mouth 3 [place] (three) Medical times Branch daily. cloNIDine 2020-0 Yes .3mg Take 0.3 Univ ers 0.3 mg 2-26 mg by ity of tablet 00:00: mouth 3 [place] (three) Medical times Branch daily. cloNIDine 2020-0 Yes .3mg Take 0.3 Univ ers 0.3 mg 2-26 mg by ity of tablet 00:00: mouth 3 [place] (three) Medical times Branch daily. cloNIDine 2020-0 Yes .3mg Take 0.3 Univ ers 0.3 mg 2-26 mg by ity of tablet 00:00: mouth 3 [place] (three) Medical times Branch daily. cloNIDine 2020-0 Yes .3mg Take 0.3 Univ ers 0.3 mg 2-26 mg by ity of tablet 00:00: mouth 3 [place] (three) Medical times Branch daily. amitriptyli 2020-0 Yes 25mg Take 1 Univ ers ne 25 mg 2-07 tablet by ity of tablet 00:00: mouth at [place] [address] bedtime. Medical Branch butorphanol 2020-0 Yes USE 1 Unive rs 10 mg/mL 2-07 SPRAY IN ity of nasal spray 00:00: ONE [place] NOSTRIL Medical EVERY 8 Branch HOURS NEEDED FOR HEADACHE amitriptyli 2020-0 Yes 25mg Take 1 Univ ers ne 25 mg 2-07 tablet by ity of tablet 00:00: mouth at [place] [address] bedtime. Medical Branch butorphanol 2020-0 Yes USE 1 Unive rs 10 mg/mL 2-07 SPRAY IN ity of nasal spray 00:00: [place] NOSTRIL Medical EVERY 8 Branch HOURS NEEDED FOR HEADACHE butorphanol 2020-0 Yes USE 1 Unive rs 10 mg/mL 2-07 SPRAY IN ity of nasal spray 00:00: ONE [place] NOSTRIL Medical EVERY 8 Branch HOURS NEEDED FOR HEADACHE butorphanol 2020-0 2020- No USE 1 Univ ers 10 mg/mL 2-07 03-05 SPRAY IN ity of nasal spray 00:00: 00:00 [place] 00 :00 NOSTRIL Medical EVERY 8 Branch HOURS NEEDED FOR HEADACHE butorphanol 2020-0 2020- No USE 1 Univ ers 10 mg/mL 03-23 SPRAY IN ity of nasal spray 00:00: 00:00 ONE [place] 00 :00 NOSTRIL Medical EVERY 8 Branch HOURS NEEDED FOR HEADACHE amitriptyli 2020-0 2020- No 25mg Take 1 Uni vers ne 25 mg 03-23 tablet by ity o f tablet 00:00: 00:00 mouth at [place] 00 :00 bedtime. Medical Branch amLODIPine 2020-0 Yes 5mg Take 5 mg Un osbaldo 5 mg tablet 2-06 by mouth 2 it y of 00:00: (two) [place] 00 times Medical daily. Branch amLODIPine 2020-0 Yes 5mg Take 5 mg Un osbaldo 5 mg tablet 2-06 by mouth 2 it y of 00:00: (two) [place] 00 times Medical daily. Branch amLODIPine 2020-0 Yes 5mg Take 5 mg Un osbaldo 5 mg tablet 2-06 by mouth 2 it y of 00:00: (two) [place] 00 times Medical daily. Branch amLODIPine 2020-0 Yes 5mg Take 5 mg Un osbaldo 5 mg tablet 2-06 by mouth 2 it y of 00:00: (two) [place] 00 times Medical daily. Branch amLODIPine 2020-0 Yes 5mg Take 5 mg Un osbaldo 5 mg tablet 2-06 by mouth 2 it y of 00:00: (two) [place] 00 times Medical daily. Branch amLODIPine 2020-0 Yes 5mg Take 5 mg Un osbaldo 5 mg tablet 2-06 by mouth 2 it y of 00:00: (two) [place] 00 times Medical daily. Branch amLODIPine 2020-0 Yes 5mg Take 5 mg Un osbaldo 5 mg tablet 2-06 by mouth 2 it y of 00:00: (two) [place] 00 times Medical daily. Branch amLODIPine 2020-0 Yes 5mg Take 5 mg Un osbaldo 5 mg tablet 2-06 by mouth 2 it y of 00:00: (two) [place] 00 times Medical daily. Branch amLODIPine 2020-0 Yes 5mg Take 5 mg Un osbaldo 5 mg tablet 2-06 by mouth 2 it y of 00:00: (two) [place] 00 times Medical daily. Branch amLODIPine 2020-0 [...] mouth 2 it y of 00:00: (two) [place] 00 times Medical daily. Branch amLODIPine 2020-0 Yes 5mg Take 5 mg Un osbaldo 5 mg tablet 2-06 by mouth 2 it y of 00:00: (two) [place] 00 times Medical daily. Branch amLODIPine 2020-0 Yes 5mg Take 5 mg Un osbaldo 5 mg tablet 2-06 by mouth 2 it y of 00:00: (two) [place] 00 times Medical daily. Branch amLODIPine 2020-0 Yes 5mg Take 5 mg Un osbalod 5 mg tablet 2-06 by mouth 2 it y of 00:00: (two) [place] 00 times Medical daily. Branch amLODIPine 2020-0 Yes 5mg Take 5 mg Un osbaldo 5 mg tablet 2-06 by mouth 2 it y of 00:00: (two) [place] 00 times Medical daily. Branch sotalol 80 2020-0 Yes 80mg Take 80 mg U nivers mg tablet 1-16 by mouth ity of 00:00: every 12 [place] [address] (twelve) Medical hours. Branch sotalol 80 2020-0 Yes 80mg Take 80 mg U nivers mg tablet 1-16 by mouth ity of 00:00: every 12 [place] [address] (twelve) Medical hours. Branch sotalol 80 2020-0 Yes 80mg Take 80 mg U nivers mg tablet 1-16 by mouth ity of 00:00: every 12 [place] [address] (twelve) Medical hours. Branch sotalol 80 2020-0 Yes 80mg Take 80 mg U nivers mg tablet 1-16 by mouth ity of 00:00: every 12 [place] 00 (twelve) Medical hours. Branch sotalol 80 2020-0 Yes 80mg Take 80 mg U nivers mg tablet 1-16 by mouth ity of 00:00: every 12 [place] 00 (twelve) Medical hours. Branch sotalol 80 2020-0 Yes 80mg Take 80 mg U nivers mg tablet 1-16 by mouth ity of 00:00: every 12 [place] 00 (twelve) Medical hours. Branch sotalol 80 2020-0 Yes 80mg Take 80 mg U nivers mg tablet 1-16 by mouth ity of 00:00: every 12 [place] 00 (twelve) Medical hours. Branch sotalol 80 2020-0 Yes 80mg Take 80 mg U nivers mg tablet 1-16 by mouth ity of 00:00: every 12 [place] 00 (twelve) Medical hours. Branch sotalol 80 2020-0 Yes 80mg Take 80 mg U nivers mg tablet 1-16 by mouth ity of 00:00: every 12 [place] 00 (twelve) Medical hours. Branch sotalol 80 2020-0 Yes 80mg Take 80 mg U nivers mg tablet 1-16 by mouth ity of 00:00: every 12 [place] 00 (twelve) Medical hours. Branch sotalol 80 2020-0 Yes 80mg Take 80 mg U nivers mg tablet 1-16 by mouth ity of 00:00: every 12 [place] 00 (twelve) Medical hours. Branch sotalol 80 2020-0 Yes 80mg Take 80 mg U nivers mg tablet 1-16 by mouth ity of 00:00: every 12 [place] 00 (twelve) Medical hours. Branch sotalol 80 2020-0 Yes 80mg Take 80 mg U nivers mg tablet 1-16 by mouth ity of 00:00: every 12 [place] 00 (twelve) Medical hours. Branch sotalol 80 2020-0 Yes 80mg Take 80 mg U nivers mg tablet 1-16 by mouth ity of 00:00: every 12 [place] 00 (twelve) Medical hours. Branch sotalol 80 2020-0 Yes 80mg Take 80 mg U nivers mg tablet 1-16 by mouth ity of 00:00: every 12 [place] 00 (twelve) Medical hours. Branch sotalol 80 2020-0 Yes 80mg Take 80 mg U nivers mg tablet 1-16 by mouth ity of 00:00: every 12 [place] 00 (twelve) Medical hours. Branch sotalol 80 2020-0 Yes 80mg Take 80 mg U nivers mg tablet 1-16 by mouth ity of 00:00: every 12 [place] 00 (twelve) Medical hours. Branch sotalol 80 2020-0 Yes 80mg Take 80 mg U nivers mg tablet 1-16 by mouth ity of 00:00: every 12 [place] 00 (twelve) Medical hours. Branch sotalol 80 2020-0 Yes 80mg Take 80 mg U nivers mg tablet 1-16 by mouth ity of 00:00: every 12 [place] 00 (twelve) Medical hours. Branch sotalol 80 2020-0 Yes 80mg Take 80 mg U nivers mg tablet 1-16 by mouth ity of 00:00: every 12 [place] 00 (twelve) Medical hours. Branch sotalol 80 2020-0 Yes [facility] mg tablet 1-16 ity of 00:00: [place] 00 Medical Branch sotalol 80 2020-0 Yes [facility] mg tablet 1-16 ity of 00:00: [place] 00 Medical Branch sotalol 80 2020-0 Yes 80mg Take 80 mg U nivers mg tablet 1-16 by mouth ity of 00:00: every 12 [place] [address] (twelve) Medical hours. Branch sotalol 80 2020-0 Yes 80mg Take 80 mg U nivers mg tablet 1-16 by mouth ity of 00:00: every 12 [place] 00 (twelve) Medical hours. Branch sotalol 80 2020-0 Yes 80mg Take 80 mg U nivers mg tablet 1-16 by mouth ity of 00:00: every 12 [place] 00 (twelve) Medical hours. Branch sotalol 80 2020-0 Yes 80mg Take 80 mg U nivers mg tablet 1-16 by mouth ity of 00:00: every 12 [place] 00 (twelve) Medical hours. Branch sotalol 80 2020-0 Yes 80mg Take 80 mg U nivers mg tablet 1-16 by mouth ity of 00:00: every 12 [place] 00 (twelve) Medical hours. Branch sotalol 80 2020-0 Yes 80mg Take 80 mg U nivers mg tablet 1-16 by mouth ity of 00:00: every 12 [place] 00 (twelve) Medical hours. Branch sotalol 80 2020-0 Yes 80mg Take 80 mg U nivers mg tablet 1-16 by mouth ity of 00:00: every 12 [place] 00 (twelve) Medical hours. Branch sotalol 80 2020-0 Yes 80mg Take 80 mg U nivers mg tablet 1-16 by mouth ity of 00:00: every 12 [place] 00 (twelve) Medical hours. Branch sotalol 80 2020-0 Yes 80mg Take 80 mg U nivers mg tablet 1-16 by mouth ity of 00:00: every 12 [place] 00 (twelve) Medical hours. Branch sotalol 80 2020-0 Yes 80mg Take 80 mg U nivers mg tablet 1-16 by mouth ity of 00:00: every 12 [place] 00 (twelve) Medical hours. Branch sotalol 80 2020-0 Yes 80mg Take 80 mg U nivers mg tablet 1-16 by mouth ity of 00:00: every 12 [place] 00 (twelve) Medical hours. Branch sotalol 80 2020-0 Yes 80mg Take 80 mg U nivers mg tablet 1-16 by mouth ity of 00:00: every 12 [place] 00 (twelve) Medical hours. Branch sotalol 80 2020-0 Yes 80mg Take 80 mg U nivers mg tablet 1-16 by mouth ity of 00:00: every 12 [place] 00 (twelve) Medical hours. Branch sotalol 80 2020-0 Yes 80mg Take 80 mg U nivers mg tablet 1-16 by mouth ity of 00:00: every 12 [place] 00 (twelve) Medical hours. Branch sotalol 80 2020-0 Yes 80mg Take 80 mg U nivers mg tablet 1-16 by mouth ity of 00:00: every 12 [place] 00 (twelve) Medical hours. Branch sotalol 80 2020-0 Yes 80mg Take 80 mg U nivers mg tablet 1-16 by mouth ity of 00:00: every 12 [place] 00 (twelve) Medical hours. Branch sotalol 80 2020-0 Yes 80mg Take 80 mg U nivers mg tablet 1-16 by mouth ity of 00:00: every 12 [place] 00 (twelve) Medical hours. Branch sotalol 80 2020-0 Yes 80mg Take 80 mg U nivers mg tablet 1-16 by mouth ity of 00:00: every 12 [place] 00 (twelve) Medical hours. Branch sotalol 80 2020-0 Yes 80mg Take 80 mg U nivers mg tablet 1-16 by mouth ity of 00:00: every 12 [place] 00 (twelve) Medical hours. Branch sotalol 80 2020-0 Yes 80mg Take 80 mg U nivers mg tablet 1-16 by mouth ity of 00:00: every 12 [place] 00 (twelve) Medical hours. Branch sotalol 80 2020-0 Yes 80mg Take 80 mg U nivers mg tablet 1-16 by mouth ity of 00:00: every 12 [place] 00 (twelve) Medical hours. Branch sotalol 80 2020-0 Yes 80mg Take 80 mg U nivers mg tablet 1-16 by mouth ity of 00:00: every 12 [place] 00 (twelve) Medical hours. Branch sotalol 80 2020-0 Yes 80mg Take 80 mg U nivers mg tablet 1-16 by mouth ity of 00:00: every 12 [place] 00 (twelve) Medical hours. Branch sotalol 80 2020-0 Yes 80mg Take 80 mg U nivers mg tablet 1-16 by mouth ity of 00:00: every 12 [place] 00 (twelve) Medical hours. Branch sotalol 80 2020-0 Yes 80mg Take 80 mg U nivers mg tablet 1-16 by mouth ity of 00:00: every 12 [place] 00 (twelve) Medical hours. Branch sotalol 80 2020-0 Yes 80mg Take 80 mg U nivers mg tablet 1-16 by mouth ity of 00:00: every 12 [place] 00 (twelve) Medical hours. Branch sotalol 80 2020-0 Yes 80mg Take 80 mg U nivers mg tablet 1-16 by mouth ity of 00:00: every 12 [place] 00 (twelve) Medical hours. Branch sotalol 80 2020-0 Yes 80mg Take 80 mg U nivers mg tablet 1-16 by mouth ity of 00:00: every 12 [place] 00 (twelve) Medical hours. Branch sotalol 80 2020-0 Yes 80mg Take 80 mg U nivers mg tablet 1-16 by mouth ity of 00:00: every 12 [place] 00 (twelve) Medical hours. Branch sotalol 80 2020-0 Yes 80mg Take 80 mg U nivers mg tablet 1-16 by mouth ity of 00:00: every 12 [place] 00 (twelve) Medical hours. Branch sotalol 80 2020-0 Yes 80mg Take 80 mg U nivers mg tablet 1-16 by mouth ity of 00:00: every 12 [place] 00 (twelve) Medical hours. Branch sotalol 80 2020-0 Yes 80mg Take 80 mg U nivers mg tablet 1-16 by mouth ity of 00:00: every 12 [place] [address] (twelve) Medical hours. Branch sotalol 80 2020-0 Yes 80mg Take 80 mg U nivers mg tablet 1-16 by mouth ity of 00:00: every 12 [place] [address] (twelve) Medical hours. Branch sotalol 80 2020-0 Yes 80mg Take 80 mg U nivers mg tablet 1-16 by mouth ity of 00:00: every 12 [place] [address] (twelve) Medical hours. Branch butorphanol 2018- Yes USE 1 Unive rs 10 mg/mL 2-20 SPRAY IN ity of nasal spray 00:00: ONE [place] [address] NOSTRIL Medical EVERY 8 Branch HOURS NEEDED FOR HEADACHE butorphanol 2018-02 Yes USE 1 Unive rs 10 mg/mL 2-20 SPRAY IN ity of nasal spray 00:00: ONE [place] [address] NOSTRIL Medical EVERY 8 Branch HOURS NEEDED FOR HEADACHE butorphanol 2018- Yes USE 1 Unive rs 10 mg/mL 2-20 SPRAY IN ity of nasal spray 00:00: ONE [place] [address] NOSTRIL Medical EVERY 8 Branch HOURS NEEDED FOR HEADACHE butorphanol 2018- Yes USE 1 Unive rs 10 mg/mL 2-20 SPRAY IN ity of nasal spray 00:00: ONE [place] [address] NOSTRIL Medical EVERY 8 Branch HOURS NEEDED FOR HEADACHE butorphanol 2018- Yes USE 1 Unive rs 10 mg/mL 2-20 SPRAY IN ity of nasal spray 00:00: ONE [place] [address] NOSTRIL Medical EVERY 8 Branch HOURS NEEDED FOR HEADACHE butorphanol 2018- 2020- No USE 1 Univ ers 10 mg/mL 2-20 02-07 SPRAY IN ity of nasal spray 00:00: 00:00 ONE [place] 00 :00 NOSTRIL Medical EVERY 8 Branch HOURS NEEDED FOR HEADACHE butorphanol 2018- 2020- No USE 1 Univ ers 10 mg/mL 2-20 02-07 SPRAY IN ity of nasal spray 00:00: 00:00 ONE [place] 00 :00 NOSTRIL Medical EVERY 8 Branch HOURS NEEDED FOR HEADACHE pantoprazol 2018- Yes 40mg Take 40 mg Univers e 40 mg EC 2-17 by mouth ity o f tablet 00:00: daily. [place] [address] Medical Branch pantoprazol 2018-02 Yes 40mg Take 40 mg Univers e 40 mg EC 2-17 by mouth ity o f tablet 00:00: daily. [place] [facility] pantoprazol 2018-02 Yes 40mg Take 40 mg Univers e 40 mg EC 2-17 by mouth ity o f tablet 00:00: daily. [place] [facility] pantoprazol 2018-02 Yes 40mg Take 40 mg Univers e 40 mg EC 2-17 by mouth ity o f tablet 00:00: daily. [place] [facility] pantoprazol 2018-02 Yes 40mg Take 40 mg Univers e 40 mg EC 2-17 by mouth ity o f tablet 00:00: daily. [place] [facility] pantoprazol 2018-02 Yes 40mg Take 40 mg Univers e 40 mg EC 2-17 by mouth ity o f tablet 00:00: daily. [place] [facility] pantoprazol 2018-02 Yes 40mg Take 40 mg Univers e 40 mg EC 2-17 by mouth ity o f tablet 00:00: daily. [place] [facility] pantoprazol 2018-02 Yes 40mg Take 40 mg Univers e 40 mg EC 2-17 by mouth ity o f tablet 00:00: daily. [place] [facility] pantoprazol 2018-02 Yes 40mg Take 40 mg Univers e 40 mg EC 2-17 by mouth ity o f tablet 00:00: daily. [place] [facility] pantoprazol 2018-02 Yes 40mg Take 40 mg Univers e 40 mg EC 2-17 by mouth ity o f tablet 00:00: daily. [place] [facility] pantoprazol 2018-02 Yes 40mg Take 40 mg Univers e 40 mg EC 2-17 by mouth ity o f tablet 00:00: daily. [place] [facility] pantoprazol 2018-02 Yes 40mg Take 40 mg Univers e 40 mg EC 2-17 by mouth ity o f tablet 00:00: daily. [place] [facility] pantoprazol 2018-02 Yes 40mg Take 40 mg Univers e 40 mg EC 2-17 by mouth ity o f tablet 00:00: daily. [address] pantoprazol 2018-02 Yes 40mg Take 40 mg Univers e 40 mg EC 2-17 by mouth ity o f tablet 00:00: daily. [address] pantoprazol 2018-02 Yes 40mg Take 40 mg Univers e 40 mg EC 2-17 by mouth ity o f tablet 00:00: daily. [place] [facility] pantoprazol 2018-02 Yes 40mg Take 40 mg Univers e 40 mg EC 2-17 by mouth ity o f tablet 00:00: daily. [place] [facility] pantoprazol 2018-02 Yes 40mg Take 40 mg Univers e 40 mg EC 2-17 by mouth ity o f tablet 00:00: daily. [place] [facility] pantoprazol 2018-02 Yes 40mg Take 40 mg Univers e 40 mg EC 2-17 by mouth ity o f tablet 00:00: daily. [place] [facility] pantoprazol 2018-02 Yes 40mg Take 40 mg Univers e 40 mg EC 2-17 by mouth ity o f tablet 00:00: daily. [place] [facility] pantoprazol 2018-02 Yes 40mg Take 40 mg Univers e 40 mg EC 2-17 by mouth ity o f tablet 00:00: daily. [place] [facility] pantoprazol 2018-02 Yes 40mg Take 40 mg Univers e 40 mg EC 2-17 by mouth ity o f tablet 00:00: daily. [place] [facility] pantoprazol 2018-02 Yes 40mg Take 40 mg Univers e 40 mg EC 2-17 by mouth ity o f tablet 00:00: daily. [place] [facility] pantoprazol 2018-02 Yes 40mg Take 40 mg Univers e 40 mg EC 2-17 by mouth ity o f tablet 00:00: daily. [place] [facility] pantoprazol 2018-02 Yes 40mg Take 40 mg Univers e 40 mg EC 2-17 by mouth ity o f tablet 00:00: daily. [place] [facility] pantoprazol 2018-02 Yes 40mg Take 40 mg Univers e 40 mg EC 2-17 by mouth ity o f tablet 00:00: daily. [place] [facility] pantoprazol 2018-02 Yes 40mg Take 40 mg Univers e 40 mg EC 2-17 by mouth ity o f tablet 00:00: daily. [place] [facility] pantoprazol 2018-02 Yes 40mg Take 40 mg Univers e 40 mg EC 2-17 by mouth ity o f tablet 00:00: daily. [address] pantoprazol 2018-02 Yes 40mg Take 40 mg Univers e 40 mg EC 2-17 by mouth ity o f tablet 00:00: daily. [place] [facility] pantoprazol 2018-02 Yes 40mg Take 40 mg Univers e 40 mg EC 2-17 by mouth ity o f tablet 00:00: daily. [place] [facility] pantoprazol 2018-02 Yes 40mg Take 40 mg Univers e 40 mg EC 2-17 by mouth ity o f tablet 00:00: daily. [place] [facility] pantoprazol 2018-02 Yes 40mg Take 40 mg Univers e 40 mg EC 2-17 by mouth ity o f tablet 00:00: daily. [place] [facility] pantoprazol 2018-02 Yes 40mg Take 40 mg Univers e 40 mg EC 2-17 by mouth ity o f tablet 00:00: daily. [place] [facility] pantoprazol 2018-02 Yes 40mg Take 40 mg Univers e 40 mg EC 2-17 by mouth ity o f tablet 00:00: daily. [place] [facility] pantoprazol 2018-02 Yes 40mg Take 40 mg Univers e 40 mg EC 2-17 by mouth ity o f tablet 00:00: daily. [place] [facility] pantoprazol 2018-02 Yes 40mg Take 40 mg Univers e 40 mg EC 2-17 by mouth ity o f tablet 00:00: daily. [place] [facility] pantoprazol 2018-02 Yes 40mg Take 40 mg Univers e 40 mg EC 2-17 by mouth ity o f tablet 00:00: daily. [place] [facility] pantoprazol 2018-02 Yes 40mg Take 40 mg Univers e 40 mg EC 2-17 by mouth ity o f tablet 00:00: daily. [place] [facility] pantoprazol 2018-02 Yes 40mg Take 40 mg Univers e 40 mg EC 2-17 by mouth ity o f tablet 00:00: daily. [place] [facility] pantoprazol 2018-02 Yes 40mg Take 40 mg Univers e 40 mg EC 2-17 by mouth ity o f tablet 00:00: daily. [place] [facility] pantoprazol 2018-02 Yes 40mg Take 40 mg [facility] e 40 mg EC 2-17 by mouth ity o f tablet 00:00: daily. [place] [facility] pantoprazol 2018-02 Yes 40mg Take 40 mg [facility] e 40 mg EC 2-17 by mouth ity o f tablet 00:00: daily. [place] [facility] pantoprazol 2018-02 Yes 40mg Take 40 mg [facility] e 40 mg EC 2-17 by mouth ity o f tablet 00:00: daily. [address] pantoprazol 2018-02 Yes 40mg Take 40 mg [facility] e 40 mg EC 2-17 by mouth ity o f tablet 00:00: daily. [address] pantoprazol 2018-02 Yes 40mg Take 40 mg [facility] e 40 mg EC 2-17 by mouth ity o f tablet 00:00: daily. [address] pantoprazol 2018-02 Yes 40mg Take 40 mg [facility] e 40 mg EC 2-17 by mouth ity o f tablet 00:00: daily. [address] pantoprazol 2018-02 Yes 40mg Take 40 mg [facility] e 40 mg EC 2-17 by mouth ity o f tablet 00:00: daily. [address] pantoprazol 2018-02 Yes 40mg Take 40 mg [facility] e 40 mg EC 2-17 by mouth ity o f tablet 00:00: daily. [address] pantoprazol 2018-02 Yes 40mg Take 40 mg [facility] e 40 mg EC 2-17 by mouth ity o f tablet 00:00: daily. [address] pantoprazol 2018-02 Yes 40mg Take 40 mg [facility] e 40 mg EC 2-17 by mouth ity o f tablet 00:00: daily. [address] pantoprazol 2018-02 Yes 40mg Take 40 mg [facility] e 40 mg EC 2-17 by mouth ity o f tablet 00:00: daily. [address] pantoprazol 2018-02 Yes 40mg Take 40 mg [facility] e 40 mg EC 2-17 by mouth ity o f tablet 00:00: daily. [address] pantoprazol 2018-02 Yes 40mg Take 40 mg [facility] e 40 mg EC 2-17 by mouth ity o f tablet 00:00: daily. [address] pantoprazol 2018-02 Yes 40mg Take 40 mg [facility] e 40 mg EC 2-17 by mouth ity o f tablet 00:00: daily. [address] pantoprazol 2018-02 Yes 40mg Take 40 mg [facility] e 40 mg EC 2-17 by mouth ity o f tablet 00:00: daily. [address] busPIRone 5 2018-02 Yes [id number] TAKE 1 Univers mg tablet 09101 TABLET BY ity o f 00:00: MOUTH [place] [address] TWICE A Medical DAY Branch busPIRone 5 2018-02 Yes [id number] TAKE 1 [facility] mg tablet 0- 9102 TABLET BY ity o f 00:00: MOUTH [place] 00 TWICE A Medical DAY Branch busPIRone 5 2018-02 Yes [id number] TAKE 1 [facility] mg tablet 0- 9102 TABLET BY ity o f 00:00: MOUTH [place] 00 TWICE A Medical DAY Branch busPIRone 5 2018-02 Yes [id number] TAKE 1 [facility] mg tablet 0- 9102 TABLET BY ity o f 00:00: MOUTH [place] 00 TWICE A Medical DAY Branch busPIRone 5 2018-02 Yes [id number] TAKE 1 [facility] mg tablet 0- 9102 TABLET BY ity o f 00:00: MOUTH 00 TWICE A Medical DAY Branch busPIRone 5 2018-02 Yes [id number] TAKE 1 [facility] mg tablet 0- 9102 TABLET BY ity o f 00:00: MOUTH 00 TWICE A Medical DAY Branch busPIRone 5 2018-02 Yes [id number] TAKE 1 [facility] mg tablet 0- 9102 TABLET BY ity o f 00:00: MOUTH [place] 00 TWICE A Medical DAY Branch busPIRone 5 2018-02 Yes [id number] TAKE 1 [facility] mg tablet 0- 9102 TABLET BY ity o f 00:00: MOUTH 00 TWICE A Medical DAY Branch busPIRone 5 2018-02 Yes [id number] TAKE 1 [facility] mg tablet 0- 9102 TABLET BY ity o f 00:00: MOUTH 00 TWICE A Medical DAY Branch busPIRone 5 2018-02 Yes [id number] TAKE 1 [facility] mg tablet 0- 9102 TABLET BY ity o f 00:00: MOUTH [place] 00 TWICE A Medical DAY Branch busPIRone 5 2018-02 Yes [id number] TAKE 1 [facility] mg tablet 0- 9102 TABLET BY ity o f 00:00: MOUTH [place] 00 TWICE A Medical DAY Branch busPIRone 5 2018-02 Yes [id number] TAKE 1 [facility] mg tablet 0- 9102 TABLET BY ity o f 00:00: MOUTH [place] 00 TWICE A Medical DAY Branch busPIRone 5 2018-02 Yes [id number] TAKE 1 [facility] mg tablet 0- 9102 TABLET BY ity o f 00:00: MOUTH [place] 00 TWICE A Medical DAY Branch busPIRone 5 2018-02 2020- No [id number] TAKE 1 [facility] mg tablet [id number] 9102 TABLET BY ity of 00:00: 00:00 MOUTH 00 :00 TWICE A Medical DAY Branch BUSPIRONE 5 2018- Yes [id number] TAKE 1 [facility] mg tablet 09-0802 TABLET BY ity o f 00:00: MOUTH TWICE A Medical DAY Branch butorphanol Yes [id number] 1{spray Use 1 [facility] 10 mg/mL 08-21 } [place] [facility] in ity of nasal spray 00:00: each nostril Medical every 8 Branch (eight) hours as needed for Pain. insulin Yes 60U inject 60 Unive rs detemir 5-14 Units ity of U-100 100 18:55: under the [place] as unit/mL 56 skin. Medical injection Branch insulin Yes inject Univers lispro, 5-14 under the ity of human, 100 18:55: skin. [place] unit/mL 56 Medical injection Branch insulin Yes 60U inject 60 Unive rs detemir 5-14 Units ity of U-100 100 18:55: under the [place] as unit/mL 56 skin. Medical injection Branch insulin Yes inject Univers lispro, 5-14 under the ity of human, 100 18:55: skin. [place] unit/mL 56 Medical injection Branch insulin Yes 60U inject 60 Unive rs detemir 5-14 Units ity of U-100 100 18:55: under the [place] as unit/mL 56 skin. Medical injection Branch insulin Yes inject [facility] lispro, 5-14 under the ity of human, 100 18:55: skin. [place] unit/mL 56 Medical injection Branch insulin Yes 60U inject 60 Unive rs detemir 5-14 Units ity of U-100 100 18:55: under the [place] as unit/mL 56 skin. Medical injection Branch insulin Yes inject [facility] lispro, 5-14 under the ity of human, 100 18:55: skin. [place] unit/mL 56 Medical injection Branch insulin Yes 60U inject 60 Unive rs detemir 5-14 Units ity of U-100 100 18:55: under the [place] as unit/mL 56 skin. Medical injection Branch insulin 2019-0 Yes inject [facility] lispro, 5-14 under the [...] skin. [place] unit/mL 56 Medical injection Branch pregabalin 2018-0 Yes 300mg Take 300 Un osbaldo 300 mg 5-14 mg by ity of capsule 17:05: mouth. [place] [address] Medical Branch hydrALAZINE 0 Yes 50mg Take 50 mg [facility] 50 mg 5-14 by mouth. ity of tablet 17:05: [address] Branch losartan-hy 0 Yes Take by Un osbaldo drochloroth 5-14 mouth. ity of iazide 17:05: [place] 100-25 mg 39 Medical per tablet Branch carvedilol 0 Yes 25mg Take 25 mg U nivers 12.5 mg 5-14 by mouth. ity of tablet 17:05: [address] Branch acetaminoph 0 Yes 500mg Take [...] mg by ity of capsule 17:05: mouth. [place] [address] Medical Branch hydrALAZINE 0 Yes 50mg Take 50 mg [facility] 50 mg 5-14 by mouth. ity of tablet 17:05: [place] [address] Medical Branch losartan-hy 0 Yes Take by Un [facility] drochloroth 5-14 mouth. ity of iazide 17:05: [place] 100-25 mg 39 Medical per tablet Branch carvedilol 0 Yes 25mg Take 25 mg U nivers 12.5 mg 5-14 by mouth. ity of tablet 17:05: [place] [address] Medical Branch acetaminoph 0 Yes 500mg Take [...] mg by ity of capsule 17:05: mouth. [address] Branch hydrALAZINE 2018-0 Yes 50mg Take 50 mg [facility] 50 mg 5-14 by mouth. ity of tablet 17:05: [address] Branch losartan-hy 2019-0 Yes Take by Un osbaldo drochloroth 5-14 mouth. ity of iazide 17:05: [place] 100-25 mg 39 Medical per tablet Branch carvedilol 2019-0 Yes 25mg Take 25 mg U nivers 12.5 mg 5-14 by mouth. ity of tablet 17:05: [address] Branch acetaminoph 2019-0 Yes 500mg Take [...] mg by ity of capsule 17:05: mouth. [address] Branch pregabalin 2019-0 Yes 300mg Take 300 Un [place] 300 mg 5-14 mg by ity of capsule 17:05: mouth. [address] Branch hydrALAZINE Yes 50mg Take 50 mg [facility] 50 mg 5-14 by mouth. ity of tablet 17:05: [address] Branch losartan-hy 0 Yes Take by Un os[facility]do drochloroth 5-14 mouth. ity of iazide 17:05: [place] 100-25 mg 39 Medical per tablet Branch hydrALAZINE Yes 50mg Take 50 mg Univers 50 mg 5-14 by mouth. ity of tablet 17:05: [address] Branch carvedilol Yes 25mg Take 25 mg U nivers 12.5 mg 5-14 by mouth. ity of tablet 17:05: [address] Branch acetaminoph Yes 500mg Take 500 [...] minutes as needed for Chest pain. losartan-hy Yes Take by Un [place] drochloroth 5-14 mouth. ity of iazide 17:05: [place] 100-25 mg 39 Medical per tablet Branch pregabalin 0 Yes 300mg Take 300 Un [place] 300 mg 5-14 mg by ity of capsule 17:05: mouth. [address] hydrALAZINE 0 Yes 50mg Take 50 mg Univers 50 mg 5-14 by mouth. ity of tablet 17:05: [address] Branch losartan-hy 0 Yes Take by Un osbaldo drochloroth 5-14 mouth. ity of iazide 17:05: [place] 100-25 mg 39 Medical per tablet Branch carvedilol Yes 25mg Take 25 mg U nivers 12.5 mg 5-14 by mouth. ity of tablet 17:05: [address] Branch acetaminoph 2019-0 Yes 500mg Take [...] mg per needed for tablet Pain. nitroglycer 2018-[address] 0.3 U nivers in 0.3 mg 5-14 mg under ity of sublingual 17:05: the tongue [place] tablet 39 every 5 Medical (five) Branch minutes as needed for Chest pain. pregabalin 2019-0 Yes 300mg Take 300 Un [place] 300 mg 5-14 mg by ity of capsule 17:05: mouth. [address] Branch hydrALAZINE 2018-0 Yes 50mg Take 50 mg [facility] 50 mg 5-14 by mouth. ity of tablet 17:05: [address] losartan-hy 2018-0 Yes Take by Un [facility]do drochloroth 5-14 mouth. ity of iazide 17:05: [place] 100-25 mg 39 Medical per tablet Branch carvedilol 2018-0 Yes 25mg Take 25 mg U nivers 12.5 mg 5-14 by mouth. ity of tablet 17:05: [address] Branch acetaminoph 0 Yes 500mg Take [...] mg per needed for tablet Pain. nitroglycer 2018-[address] 0.3 U nivers in 0.3 mg 5-14 mg under ity of sublingual 17:05: the tongue [place] tablet 39 every 5 Medical (five) Branch minutes as needed for Chest pain. carvedilol 2019-0 Yes 25mg Take 25 mg U nivers 12.5 mg 5-14 by mouth. ity of tablet 17:05: [address] Branch pregabalin 2019-0 Yes 300mg Take 300 Un [place] 300 mg 5-14 mg by ity of capsule 17:05: mouth. [address] Branch hydrALAZINE 2018-0 Yes 50mg Take 50 mg Univers 50 mg 5-14 by mouth. ity of tablet 17:05: [address] Branch losartan-hy 2018-0 Yes Take by Un [facility] drochloroth 5-14 mouth. ity of iazide 17:05: [place] 100-25 mg 39 Medical per tablet Branch acetaminoph 2019-0 Yes 500mg Take 500 U nivers en (TYLENOL 5-14 mg by ity of EXTRA 17:05: mouth [place] STRENGTH) 39 every 6 Medical 500 mg (six) Branch tablet hours as needed for Pain. acetaminoph 0 Yes 500mg Take 500 U nivers en (TYLENOL 5-14 mg by ity of EXTRA 17:05: mouth [place] STRENGTH) 39 every 6 Medical 500 mg (six) Branch tablet hours as needed for Pain. nitroglycer Yes .3mg Place 0.3 U [...] mg by ity of capsule 17:05: mouth. [address] Branch hydrALAZINE 2018-0 Yes 50mg Take 50 mg [facility] 50 mg 5-14 by mouth. ity of tablet 17:05: [place] [address] Medical Branch losartan-hy 2019-0 Yes Take by Un [place] drochloroth 5-14 mouth. ity of iazide 17:05: [place] 100-25 mg 39 Medical per tablet Branch acetaminoph 2018-0 Yes 500mg Take 500 U nivers en (TYLENOL 5-14 mg by ity of EXTRA 17:05: mouth [place] STRENGTH) 39 every 6 Medical 500 mg (six) Branch tablet hours as needed for Pain. nitroglycer [address] 0.3 U nivers in 0.3 mg 5-14 mg under ity of sublingual 17:05: the tongue [place] tablet 39 every 5 Medical (five) Branch minutes as needed for Chest pain. pregabalin 0 Yes 300mg Take 300 Un [place] 300 mg 5-14 mg by ity of capsule 17:05: mouth. [address] Branch hydrALAZINE 0 Yes 50mg Take 50 mg Univers 50 mg 5-14 by mouth. ity of tablet 17:05: [address] Branch losartan-hy 0 Yes Take by Un [place] drochloroth 5-14 mouth. ity of iazide 17:05: [place] 100-25 mg 39 Medical per tablet Branch carvedilol 0 Yes 25mg Take 25 mg U nivers 12.5 mg 5-14 by mouth. ity of tablet 17:05: [address] Branch acetaminoph 0 Yes 500mg Take [...] mg by ity of capsule 17:05: mouth. [address] Branch hydrALAZINE Yes 50mg Take 50 mg [facility] 50 mg 5-14 by mouth. ity of tablet 17:05: [address] Branch losartan-hy 0 Yes Take by Un [place] drochloroth 5-14 mouth. ity of iazide 17:05: [place] 100-25 mg 39 Medical per tablet Branch carvedilol Yes 25mg Take 25 mg U nivers 12.5 mg 5-14 by mouth. ity of tablet 17:05: [address] Branch acetaminoph Yes 500mg Take 500 [...] mg by ity of capsule 17:05: mouth. [address] hydrALAZINE Yes 50mg Take 50 mg [facility] 50 mg 5-14 by mouth. ity of tablet 17:05: [address] Branch losartan-hy Yes Take by Un [place] drochloroth 5-14 mouth. ity of iazide 17:05: [place] 100-25 mg 39 Medical per tablet Branch carvedilol 0 Yes 25mg Take 25 mg U nivers 12.5 mg 5-14 by mouth. ity of tablet 17:05: [address] Branch acetaminoph Yes 500mg Take 500 U nivers en (TYLENOL 5-14 mg by ity of EXTRA 17:05: mouth [place] STRENGTH) 39 every 6 Medical 500 mg [...] mg by ity of capsule 17:05: mouth. [place] [address] Medical Branch hydrALAZINE 0 Yes 50mg Take 50 mg Univers 50 mg 5-14 by mouth. ity of tablet 17:05: [address] Branch losartan-hy 2018-0 Yes Take by Un [place] drochloroth 5-14 mouth. ity of iazide 17:05: [place] 100-25 mg 39 Medical per tablet Branch carvedilol Yes 25mg Take 25 mg U nivers 12.5 mg 5-14 by mouth. ity of tablet 17:05: [place] [address] Medical Branch acetaminoph 0 Yes 500mg Take [...] for Chest pain. busPIRone 5 2019- No [id number] 5mg Take 1 Univers mg tablet 5-14 09-08 tablet by ity of 00:00: 00:00 mouth 2 [place] 00 :00 (two) Medical times Branch daily. methIMAzole 2019-0 Yes 10mg Take 10 mg [facility] 10 mg 4-24 by mouth ity of tablet 00:00: daily. [facility] methIMAzole 2019-0 Yes 10mg Take 10 mg Univers 10 mg 4-24 by mouth ity of tablet 00:00: daily. [place] [facility] methIMAzole 2019-0 Yes 10mg Take 10 mg Univers 10 mg 4-24 by mouth ity of tablet 00:00: daily. [place] [facility] methIMAzole 2018-0 Yes 10mg Take 10 mg Univers 10 mg 4-24 by mouth ity of tablet 00:00: daily. [place] [facility] methIMAzole 2018-0 Yes 10mg Take 10 mg [facility] 10 mg 4-24 by mouth ity of tablet 00:00: daily. [place] [facility] methIMAzole 2018-0 Yes 10mg Take 10 mg Univers 10 mg 4-24 by mouth ity of tablet 00:00: daily. [place] [facility] methIMAzole 2018-0 Yes 10mg Take 10 mg [facility] 10 mg 4-24 by mouth ity of tablet 00:00: daily. [place] [facility] methIMAzole 2018-0 Yes 10mg Take 10 mg [facility] 10 mg 4-24 by mouth ity of tablet 00:00: daily. [place] [facility] methIMAzole 2019-0 Yes 10mg Take 10 mg Univers 10 mg 4-24 by mouth ity of tablet 00:00: daily. [place] [facility] methIMAzole 2019-0 Yes 10mg Take 10 mg [facility] 10 mg 4-24 by mouth ity of tablet 00:00: daily. [place] [facility] methIMAzole 2018-0 Yes 10mg Take 10 mg [facility] 10 mg 4-24 by mouth ity of tablet 00:00: daily. [place] [facility] methIMAzole 2019-0 Yes 10mg Take 10 mg Univers 10 mg 4-24 by mouth ity of tablet 00:00: daily. [place] [facility] methIMAzole 2019-0 Yes 10mg Take 10 mg [facility] 10 mg 4-24 by mouth ity of tablet 00:00: daily. [address] methIMAzole 2019-0 Yes 10mg Take 10 mg [facility] 10 mg 4-24 by mouth ity of tablet 00:00: daily. [place] [facility] methIMAzole 2019-0 Yes 10mg Take 10 mg Univers 10 mg 4-24 by mouth ity of tablet 00:00: daily. [facility] methIMAzole 2019-0 Yes 10mg Take 10 mg [facility] 10 mg 4-24 by mouth ity of tablet 00:00: daily. [place] [facility] methIMAzole 2019-0 Yes 10mg Take 10 mg [facility] 10 mg 4-24 by mouth ity of tablet 00:00: daily. [place] [facility] methIMAzole 2018-0 Yes 10mg Take 10 mg [facility] 10 mg 4-24 by mouth ity of tablet 00:00: daily. [place] [facility] methIMAzole 2018-0 Yes 10mg Take 10 mg [facility] 10 mg 4-24 by mouth ity of tablet 00:00: daily. [place] [facility] methIMAzole 2019-0 Yes 10mg Take 10 mg [facility] 10 mg 4-24 by mouth ity of tablet 00:00: daily. [place] [facility] methIMAzole 2018-0 Yes 10mg Take 10 mg [facility] 10 mg 4-24 by mouth ity of tablet 00:00: daily. [place] [facility] methIMAzole 2018-0 Yes 10mg Take 10 mg [facility] 10 mg 4-24 by mouth ity of tablet 00:00: daily. [place] [facility] methIMAzole 2019-0 Yes 10mg Take 10 mg [facility] 10 mg 4-24 by mouth ity of tablet 00:00: daily. [place] [facility] methIMAzole 2019-0 Yes 10mg Take 10 mg Univers 10 mg 4-24 by mouth ity of tablet 00:00: daily. [place] [facility] methIMAzole 2018-0 Yes 10mg Take 10 mg Univers 10 mg 4-24 by mouth ity of tablet 00:00: daily. [place] [facility] methIMAzole 2019-0 Yes 10mg Take 10 mg Univers 10 mg 4-24 by mouth ity of tablet 00:00: daily. [place] [facility] methIMAzole 2019-0 Yes 10mg Take 10 mg Univers 10 mg 4-24 by mouth ity of tablet 00:00: daily. [place] [facility] methIMAzole 2019-0 Yes 10mg Take 10 mg Univers 10 mg 4-24 by mouth ity of tablet 00:00: daily. [place] [facility] methIMAzole 2018-0 Yes 10mg Take 10 mg [facility] 10 mg 4-24 by mouth ity of tablet 00:00: daily. [facility] methIMAzole 2019-0 Yes 10mg Take 10 mg Univers 10 mg 4-24 by mouth ity of tablet 00:00: daily. [facility] methIMAzole 2019-0 Yes 10mg Take 10 mg Univers 10 mg 4-24 by mouth ity of tablet 00:00: daily. [facility] methIMAzole 2019-0 Yes 10mg Take 10 mg Univers 10 mg 4-24 by mouth ity of tablet 00:00: daily. [place] [facility] methIMAzole 2019-0 Yes 10mg Take 10 mg Univers 10 mg 4-24 by mouth ity of tablet 00:00: daily. [place] [facility] methIMAzole 2019-0 Yes 10mg Take 10 mg Univers 10 mg 4-24 by mouth ity of tablet 00:00: daily. [place] [facility] methIMAzole 2019-0 Yes 10mg Take 10 mg Univers 10 mg 4-24 by mouth ity of tablet 00:00: daily. [place] [facility] methIMAzole 2019-0 Yes 10mg Take 10 mg Univers 10 mg 4-24 by mouth ity of tablet 00:00: daily. [place] [facility] methIMAzole 2019-0 Yes 10mg Take 10 mg Univers 10 mg 4-24 by mouth ity of tablet 00:00: daily. [place] [facility] methIMAzole 2019-0 Yes 10mg Take 10 mg Univers 10 mg 4-24 by mouth ity of tablet 00:00: daily. [place] [facility] methIMAzole 2019-0 Yes 10mg Take 10 mg Univers 10 mg 4-24 by mouth ity of tablet 00:00: daily. [place] [facility] methIMAzole 2019-0 Yes 10mg Take 10 mg Univers 10 mg 4-24 by mouth ity of tablet 00:00: daily. [place] [facility] methIMAzole 2019-0 Yes 10mg Take 10 mg Univers 10 mg 4-24 by mouth ity of tablet 00:00: daily. [place] [facility] methIMAzole 2019-0 Yes 10mg Take 10 mg Univers 10 mg 4-24 by mouth ity of tablet 00:00: daily. [place] [facility] methIMAzole 2019-0 Yes 10mg Take 10 mg Univers 10 mg 4-24 by mouth ity of tablet 00:00: daily. [facility] methIMAzole 2019-0 Yes 10mg Take 10 mg Univers 10 mg 4-24 by mouth ity of tablet 00:00: daily. [facility] methIMAzole 2019-0 Yes 10mg Take 10 mg [facility] 10 mg 4-24 by mouth ity of tablet 00:00: daily. [place] [facility] methIMAzole 2019-0 Yes 10mg Take 10 mg [facility] 10 mg 4-24 by mouth ity of tablet 00:00: daily. [facility] methIMAzole 2019-0 Yes 10mg Take 10 mg [facility] 10 mg 4-24 by mouth ity of tablet 00:00: daily. [place] [facility] methIMAzole 2019-0 Yes 10mg Take 10 mg [facility] 10 mg 4-24 by mouth ity of tablet 00:00: daily. [place] [facility] methIMAzole 2019-0 Yes 10mg Take 10 mg [facility] 10 mg 4-24 by mouth ity of tablet 00:00: daily. [place] [facility] methIMAzole 2018-0 Yes 10mg Take 10 mg [facility] 10 mg 4-24 by mouth ity of tablet 00:00: daily. [place] [facility] methIMAzole 2019-0 Yes 10mg Take 10 mg [facility] 10 mg 4-24 by mouth ity of tablet 00:00: daily. [place] [facility] methIMAzole 2019-0 Yes 10mg Take 10 mg [facility] 10 mg 4-24 by mouth ity of tablet 00:00: daily. [place] [facility] methIMAzole 2019-0 Yes 10mg Take 10 mg [facility] 10 mg 4-24 by mouth ity of tablet 00:00: daily. [place] [facility] methIMAzole 2019-0 Yes 10mg Take 10 mg Univers 10 mg 4-24 by mouth ity of tablet 00:00: daily. [place] [facility] methIMAzole 2019-0 Yes 10mg Take 10 mg Univers 10 mg 4-24 by mouth ity of tablet 00:00: daily. [place] [facility] methIMAzole 2019-0 Yes 10mg Take 10 mg [facility] 10 mg 4-24 by mouth ity of tablet 00:00: daily. [place] [facility] methIMAzole 2019-0 Yes 10mg Take 10 mg Univers 10 mg 4-24 by mouth ity of tablet 00:00: daily. [place] [facility] methIMAzole 2019-0 Yes 10mg Take 10 mg [facility] 10 mg 4-24 by mouth ity of tablet 00:00: daily. [facility] methIMAzole 0 Yes 10mg Take 10 mg [facility] 10 mg 4-24 by mouth ity of tablet 00:00: daily. [facility] methIMAzole 0 Yes 10mg Take 10 mg [facility] 10 mg 4-24 by mouth ity of tablet 00:00: daily. [facility] methIMAzole 2018-0 Yes 10mg Take 10 mg [facility] 10 mg 4-24 by mouth ity of tablet 00:00: daily. [facility] methIMAzole 0 Yes 10mg Take 10 mg [facility] 10 mg 4-24 by mouth ity of tablet 00:00: daily. [facility] methIMAzole 0 Yes 10mg Take 10 mg [facility] 10 mg 4-24 by mouth ity of tablet 00:00: daily. [facility] methIMAzole 0 Yes 10mg Take 10 mg [facility] 10 mg 4-24 by mouth ity of tablet 00:00: daily. [facility] methIMAzole 0 Yes 10mg Take 10 mg [facility] 10 mg 4-24 by mouth ity of tablet 00:00: daily. [facility] methIMAzole 0 Yes 10mg Take 10 mg [facility] 10 mg 4-24 by mouth ity of tablet 00:00: daily. [facility] methIMAzole 0 Yes 10mg Take 10 mg [facility] 10 mg 4-24 by mouth ity of tablet 00:00: daily. [facility] Branch doxazosin 2 Yes TAKE 0.5 Un [facility] mg tablet 4-22 TABLET BY ity o f 00:00: 2 TIMES [place] DAY Medical Branch doxazosin 2 Yes TAKE 0.5 [facility] [place] mg tablet 4-22 TABLET BY ity o f 00:00: 2 TIMES [place] DAY Medical Branch doxazosin 2 Yes TAKE 0.5 [facility] [place] mg tablet 4-22 TABLET BY ity o f 00:00: 2 TIMES [place] DAY Medical Branch doxazosin 2 Yes TAKE 0.5 [facility] [place] mg tablet 4-22 TABLET BY ity o f 00:00: 2 TIMES [place] DAY Medical Branch doxazosin 2 Yes TAKE 0.5 [facility] [place] mg tablet 4-22 TABLET BY ity o f 00:00: 2 TIMES EVERY DAY Medical Branch doxazosin 2 2018- Yes TAKE 0.5 [facility] [place] mg tablet 4-22 TABLET BY ity o f 00:00: 2 TIMES EVERY DAY Medical Branch doxazosin 2 Yes TAKE 0.5 [facility] [place] mg tablet 4-22 TABLET BY ity o f 00:00: 2 TIMES EVERY DAY Medical Branch doxazosin 2 Yes TAKE 0.5 [facility] [place] mg tablet 4-22 TABLET BY ity o f 00:00: 2 TIMES [place] EVERY DAY Medical Branch doxazosin 2 Yes TAKE 0.5 [facility] [place] mg tablet 4-22 TABLET BY ity o f 00:00: 2 TIMES [place] EVERY DAY Medical Branch doxazosin 2 Yes TAKE 0.5 [facility] [place] mg tablet 4-22 TABLET BY ity o f 00:00: 2 TIMES [place] EVERY DAY Medical Branch doxazosin 2 2018- Yes TAKE 0.5 [facility] [place] mg tablet 4-22 TABLET BY ity o f 00:00: 2 TIMES [place] EVERY DAY Medical Branch doxazosin 2 2018- Yes TAKE 0.5 [facility] [place] mg tablet 4-22 TABLET BY ity o f 00:00: 2 TIMES [place] EVERY DAY Medical Branch doxazosin 2 2018- Yes TAKE 0.5 [facility] [place] mg tablet 4-22 TABLET BY ity o f 00:00: 2 TIMES [place] EVERY DAY Medical Branch doxazosin 2 2018- Yes TAKE 0.5 [facility] [place] mg tablet 4-22 TABLET BY ity o f 00:00: 2 TIMES [place] EVERY DAY Medical Branch doxazosin 2 2018-0 2020- No TAKE 0.5 U nivers mg tablet 4-22 03-06 TABLET BY ity of 00:00: 00:00 2 TIMES [place] 00 :00 EVERY DAY Medical Branch hydrALAZINE Yes TAKE 1 Univ ers 100 mg 4-16 TABLET BY ity of tablet 00:00: MOUTH THREE Medical TIMES A Branch DAY WITH FOOD hydrALAZINE Yes TAKE 1 Univ ers 100 mg [...] by mouth ity of tablet 00:00: daily. [place] [facility] spironolact 2019-0 Yes 25mg Take 25 mg Univers one 25 mg 3-22 by mouth ity of tablet 00:00: daily. [place] [facility] spironolact 2019-0 Yes 25mg Take 25 mg Univers one 25 mg 3-22 by mouth ity of tablet 00:00: daily. [place] [facility] spironolact 2018-0 Yes 25mg Take 25 mg Univers one 25 mg 3-22 by mouth ity of tablet 00:00: daily. [place] [facility] spironolact 2018-0 Yes 25mg Take 25 mg Univers one 25 mg 3-22 by mouth ity of tablet 00:00: daily. [place] [facility] spironolact 2018-0 Yes 25mg Take 25 mg Univers one 25 mg 3-22 by mouth ity of tablet 00:00: daily. [place] [facility] spironolact 2018-0 Yes 25mg Take 25 mg Univers one 25 mg 3-22 by mouth ity of tablet 00:00: daily. [place] [facility] spironolact 2018-0 Yes 25mg Take 25 mg Univers one 25 mg 3-22 by mouth ity of tablet 00:00: daily. [place] [facility] spironolact 2019-0 Yes 25mg Take 25 mg Univers one 25 mg 3-22 by mouth ity of tablet 00:00: daily. [place] [facility] spironolact 2019-0 Yes 25mg Take 25 mg Univers one 25 mg 3-22 by mouth ity of tablet 00:00: daily. [place] [facility] spironolact 2019-0 Yes 25mg Take 25 mg Univers one 25 mg 3-22 by mouth ity of tablet 00:00: daily. [place] [facility] spironolact 2019-0 Yes 25mg Take 25 mg Univers one 25 mg 3-22 by mouth ity of tablet 00:00: daily. [address] spironolact 2019-0 Yes 25mg Take 25 mg Univers one 25 mg 3-22 by mouth ity of tablet 00:00: daily. [address] spironolact 2019-0 Yes 25mg Take 25 mg Univers one 25 mg 3-22 by mouth ity of tablet 00:00: daily. [address] spironolact 2019-0 2020- No 25mg Take 25 mg Univers one 25 mg 05-05 by mouth ity o f tablet 00:00: 00:00 daily. [place] 00 :00 [facility] Immunizations Ordered Filled Immunization Date Status Comments [facility] e Immunization Name Name SARS-COV-2 COVID-19 2020-05-12 Completed Unive rsity of MODERNA VACCINE 00:00:00 [facility] SARS-COV-2 COVID-19 2020-05-12 Completed Unive rsity of MODERNA VACCINE 00:00:00 [facility] SARS-COV-2 COVID-19 2020-04-14 Completed Unive rsity of MODERNA VACCINE 00:00:00 [facility] SARS-COV-2 COVID-19 2020-04-14 Completed Unive rsity of MODERNA VACCINE 00:00:00 [facility] SARS-COV-2 COVID-19 2020-04-14 Completed Unive rsity of MODERNA VACCINE 00:00:00 [facility] SARS-COV-2 COVID-19 2020-04-14 Completed Unive rsity of MODERNA VACCINE 00:00:00 [facility] SARS-COV-2 COVID-19 2020-04-14 Completed Unive rsity of MODERNA VACCINE 00:00:00 [facility] SARS-COV-2 COVID-19 2020-04-14 Completed Unive rsity of MODERNA VACCINE 00:00:00 [facility] SARS-COV-2 COVID-19 2020-04-14 Completed Unive rsity of MODERNA VACCINE 00:00:00 [facility] SARS-COV-2 COVID-19 2020-04-14 Completed Unive rsity of MODERNA VACCINE 00:00:00 [facility] SARS-COV-2 COVID-19 2020-04-14 Completed Unive rsity of MODERNA VACCINE 00:00:00 [facility] SARS-COV-2 COVID-19 2020-04-14 Completed Unive rsity of MODERNA VACCINE 00:00:00 [facility] SARS-COV-2 COVID-19 2020-04-14 Completed Unive rsity of MODERNA VACCINE 00:00:00 [facility] SARS-COV-2 COVID-19 2020-04-14 Completed Unive rsity of MODERNA VACCINE 00:00:00 [facility] SARS-COV-2 COVID-19 2020-04-14 Completed Unive rsity of MODERNA VACCINE 00:00:00 [facility] SARS-COV-2 COVID-19 2020-04-14 Completed Unive rsity of MODERNA VACCINE 00:00:00 [facility] SARS-COV-2 COVID-19 2020-04-14 Completed Unive rsity of MODERNA VACCINE 00:00:00 [facility] SARS-COV-2 COVID-19 2020-04-14 Completed Unive rsity of MODERNA VACCINE 00:00:00 [facility] Vital Signs Vital Name Observation Time Observation Value Comments Source Body height 2019-04-20 15:34:00 165.1 cm [facility] Body weight 2019-04-20 15:34:00 104.327 kg [facility] BMI 2019-04-20 15:34:00 38.27 kg/m2 [facility] Systolic blood 2019-03-23 16:31:00 173 mm[Hg] Univer sity of pressure [facility] Diastolic blood 2019-03-23 16:31:00 90 mm[Hg] Unive rsity of pressure [facility] Heart rate 2019-03-23 16:31:00 64 /min [facility] Body temperature 2019-03-23 16:31:00 36.72 Bailey [facility] Respiratory rate 2019-03-23 16:31:00 18 /min [facility] Body height 2019-03-23 16:31:00 165.1 cm [facility] Body weight 2019-03-23 16:31:00 97.24 kg [facility] BMI 2019-03-23 16:31:00 35.67 kg/m2 [facility] Procedures Procedure Date / Time Performing Clinician Source Performed [id number] 2021-05-24 00:00:00 DIAMANTE [facility] MEDICATION CORRESPONDENCE 2020-01-21 06:01:00 Doctor Unassigned, [facility] Encounters Start End Encounter Admission Attending Care Care Encounter Source Date/Time Date/Time Type Type Clinicians Facility Department ID 2021-06-09 Outpatient [facility] [id number] PA 14:19:02 [id number] [facility] 2021-06-22 2021-06-22 Outpatient EFRAÍN [facility] [facility] [id number] Univers 10:40:00 10:40:00 [id number] [facility] 2021-06-22 2021-06-22 Out[address] EMMAEFRA[address] [facility] [id number] Univers 10:40:00 10:40:[address] [facility] 2021-05-17 2021-05-27 Inpatient EM Elayne [facility] [id number] [facility] 02:24:00 14:50:00 [id number] [facility] 2021-05-17 2021-05-27 Inpatient EM Parkerherminia [facility] MED [id number] [facility] 02:24:00 14:50:00 65 [facility] 2020-09-07 2020-09-07 [facility]alfonzo [facility] 1.2.840.114 [id number] Univers 00:00:00 00:00:00 Efraín Foster [id number] [id number] [phone] Mi dical nal [address] [place] [address] 2020-06-18 2020-06-18 Refalfonzo Carter [facility] 1.2.840.114 [id number] Univers 00:00:00 00:00:00 Efraín Foster [id number] [id number] [phone] Mi dic[address] 2020-05-12 2020-05-[address] [facility] [id number] Univers 16:00:00 16:00:[address] [facility] 2020-04-18 2020-04-18 Jonathan Carter [facility] 1.2.840.114 [id number] Univers 00:00:00 00:00:00 Efraín Foster [id number] [id number] [phone] Mi dical nal 092 [facility] 2020-04-18 2020-04-18 [facility] 1.2.840.114 [id number] Univers 00:00:00 00:00:00 Efraín Foster [id number] [place] [phone] Mi dical nal [address] [place] [address] 2020-04-18 2020-04-18 [facility] 1.2.840.114 [id number] Univers 00:00:00 00:00:00 Efraín Foster [id number] [id number] [phone] Mi dical nal [address] [place] [address] 2020-04-17 2020-04-17 [facility] 1.2.840.114 [id number] Univers 00:00:00 00:00:00 Efraín Foster [id number] [place] [phone] Mi dical nal [address] [place] [address] 2020-04-16 2020-04-16 [facility] 1.2.840.114 [id number] Univers 00:00:00 00:00:00 Efraín Foster [id number] [place] [phone] Mi dical nal [address] [place] [address] 2020-04-16 2020-04-16 [facility] 1.2.840.114 [id number] Univers 00:00:00 00:00:00 Efraín Foster [id number] [place] [phone] Mi dictn nal 059 [facility] 2020-04-16 2020-04-16 Refill [facility] 1.2.840.114 [id number] Univers 00:00:00 00:00:00 Efraín Foster [id number] [place] [phone] [address] 2020-04-14 2020-04-14 Outpatient [facility] [id number] Univers 15:50:00 15:50:00 [facility] [id number] [facility] 2020-04-14 2020-04-[address] [facility] [id number] Univers 15:50:00 15:50:00 [facility] 2020-03-19 2020-03-19 Telephone [facility] 1.2.840.114 [id number] Univers 00:00:00 00:00:00 Efraín Foster [id number] [place] [phone] [address] 2020-02-28 2020-02-28 Telephone [facility] 1.2.840.114 [id number] Univers 00:00:00 00:00:00 Efraín Foster [id number] [place] [phone] [address] 2020-02-19 2020-02-19 Refill [facility] 1.2.840.114 [id number] Univers 00:00:00 00:00:00 Efraín Foster [id number] [place] [phone] [address] 2020-01-21 2020-01-21 Refalfonzo [facility] 1.2.840.114 [id number] Univers 00:00:00 00:00:00 Efraín Foster 350.1.13.10 [place] [phone] [facility] 092 [facility] 2020-01-21 2020-01-21 Orders Doctor HOANG 1.2.840.114 [id number] Univers 00:00:00 00:00:00 Only Unassigned, JESUSITA 350.1.13.10 ity of [place] [facility] 4.2.7.2.686 Trino as [phone] [address] 2019-12-25 2019-12-25 [facility] 1.2.840.114 [id number] Univers 00:00:00 00:00:00 Efraín Foster 350.1.13.10 [place] [phone] [address] 2019-12-24 2019-12-24 Dickerson [facility] 1.2.840.114 [id number] Univers 00:00:00 00:00:00 Efraín Foster 350.1.13.10 [place] [phone] [address] 2019 2019 [facility] 1.2.840.114 [id number] Univers 00:00:00 00:00:00 Efraín Foster 350.1.13.10 [place] [phone] [address] 2019-11-23 2019-11-23 [facility] 1.2.840.114 [id number] Univers 00:00:00 00:00:00 Efraín Foster 350.1.13.10 [place] [phone] [address] 2019-11-23 2019-11-23 [facility] 1.2.840.114 [id number] Univers 00:00:00 00:00:00 Efraín Foster 350.1.13.10 [place] [phone] [address] 2019-10-29 2019-10-29 [facility] 1.2.840.114 [id number] Univers 00:00:00 00:00:00 Efraín Foster 350.1.13.10 [place] [phone] [address] 2019-10-26 2019-10-26 [facility] 1.2.840.114 [id number] Univers 00:00:00 00:00:00 Efraín Foster 350.1.13.10 [place] [phone] [address] 2019-09-28 2019-09-28 [facility] 1.2.840.114 [id number] Univers 00:00:00 00:00:00 Efraín Foster 350.1.13.10 [place] [phone] [address] 2019-09-28 2019-09-28 Dickerson [facility] 1.2.840.114 [id number] Univers 00:00:00 00:00:00 Efraín Foster 350.1.13.10 [place] [phone] [address] 2019-09-25 2019-09-25 [facility] 1.2.840.114 [id number] Univers 00:00:00 00:00:00 Efraín Foster 350.1.13.10 [place] [phone] [address] 2019-09-10 2019-09-[address] [facility] [id number] Univers 13:00:00 13:00:00 [id number] ity [facility] 2019-09-10 2019-09-10 Outpatient R ADRIEN, [facility] [id number] Univers 13:00:00 13:00:00 KRISTEL ity [facility] 2019-08-22 2019-08-22 [facility] 1.2.840.114 [id number] Univers 00:00:00 00:00:00 Efraín Tiffany Foster 350.1.13.10 [place] [phone] [address] 2019-07-23 2019-07-23 [facility] 1.2.840.114 [id number] Univers 00:00:00 00:00:00 Efraín Radford Kristin 350.1.13.10 [place] [phone] [address] 2019-07-20 2019-07-20 [facility] 1.2.840.114 [id number] Univers 00:00:00 00:00:00 Efraín Tiffany Kristin 350.1.13.10 [place] [phone] [address] 2019-07-20 2019-07-20 [facility] 1.2.840.114 [id number] Univers 00:00:00 00:00:00 Efraín Foster 350.1.13.10 [place] [phone] [address] 2019-07-20 2019-07-20 [facility] 1.2.840.114 [id number] Univers 00:00:00 00:00:00 Efraín Foster 350.1.13.10 [place] [phone] [address] 2019-07-19 2019-07-19 [facility] 1.2.840.114 [id number] Univers 00:00:00 00:00:00 fEraín Foster 350.1.13.10 [place] [phone] [place] 818312 [facility] 2019-07-18 2019-07-18 Refalfonzo Carter [facility] 1.2.840.114 [id number] Univers 00:00:00 00:00:00 Efraín Foster 350.1.13.10 [place] [phone] [place] 818312 [facility] 2019-07-06 2019-07-06 Telephone [facility] 1.2.840.114 [id number] Univers 00:00:00 00:00:00 Efraín Foster 350.1.13.10 [place] [phone] [address] 2019-07-05 2019-07-05 Refalfonzo NevadaD[facility] 1.2.840.114 [id number] Univers 00:00:00 00:00:00 Wondiful [facility] 350.1.13.10 ity of [place] 4.2.7.2.686 Trino as Professio [phone] [facility] 044 [facility] 2019-07-03 2019-07-03 Telemedici [facility] 1.2.840.114 [id number] Univers 08:05:45 10:48:54 ne Visit Efraín Foster 350.1.13.10 [place].2.[place] [phone] [place] 818312 [facility] 2019-07-03 2019-07-[address]N [address] [facility] [id number] Univers 09:20:00 09:20:00 EFRAÍN CARTER [id number] ity [facility] 2019-07-03 2019-07-03 Outpatient R EFRAÍN CARTER [facility] [id number] Univers 09:20:00 09:20:00 EFRAÍN CARTER ity [facility] 2019-06-19 2019-06-19 Dickerson [facility] 1.2.840.114 [id number] Univers 00:00:00 00:00:00 Efraín Foster 350.1.13.10 [place] [phone] Mi dictn nal [address] [place] [address] 2019-06-18 2019-06-18 Jonathan [facility] 1.2.840.114 [id number] Univers 00:00:00 00:00:00 Efraín Foster 350.1.13.10 [place] [phone] [facility] nal [address] [place] [address] 2019-05-28 2019-05-28 Refalfonzo [facility] 1.2.840.114 [id number] Univers 00:00:00 00:00:00 Efraín Foster 350.1.13.10 [place] [phone] Mi dictn nal [address] [place] [address] 2019-05-16 2019-05-16 Dickerson [facility] 1.2.840.114 [id number] Univers 00:00:00 00:00:00 Efraín Foster 350.1.13.10 [place] [phone] Mi dictn nal [address] [place] [address] 2019-05-13 2019-05-13 Refill [facility] 1.2.840.114 [id number] Univers 00:00:00 00:00:00 Wondiful [facility] 350.1.13.10 ity of [place] 4.2.7.2.686 Trnio as Professio [phone] [facility] nal 044 [facility] 2019-05-13 2019-05-13 Refalfonzo [facility] 1.2.840.114 [id number] Univers 00:00:00 00:00:00 Efraín Foster 350.1.13.10 [place] [phone] Me michele garza 092 [facility] 2019-05-09 2019-05-[address] [facility] [id number] Univers 14:15:00 14:15:00 [id number] ity [facility] 2019-05-09 2019-05-[address] [facility] [id number] Univers 14:15:00 14:15:00 TAMARA ity [facility] 2019-05-09 2019-05-09 Telephone [facility] 1.2.840.114 [id number] Univers 00:00:00 00:00:00 W[facility]iful [facility] 350.1.13.10 ity of [place] 4.2.7.2.686 Trino as Professio [phone] Mi michele garza 044 [facility] 2019-05-09 2019-05-09 Telephone [facility] 1.2.840.114 [id number] Univers 00:00:00 00:00:00 Tamara D SPECIALTY 350.1.13.10 [place] AT [phone] Mi michele MERIDA 370 [facility] 2019-05-08 2019-05-08 Telephone [facility] 1.2.840.114 [id number] Univers 00:00:00 00:00:00 [facility] 350.1.13.10 ity of [place] 4.2.7.2.686 Trino as Professio [phone] [facility] 044 [facility] 2019-04-27 2019-04-[address] [facility] [id number]-20 Univers 10:30:00 10:30:00 WONDIFUL [id number] ity o f [facility] 2019-04-20 2019-04-20 Office [facility] 1.2.840.114 [id number] Univers 09:23:30 19:21:09 Visit W[facility]iful [facility] 350.1.13.10 ity of [place] 4.2.7.2.686 Trino as Professio [phone] Mi michele [facility] 044 [facility] 2019-04-20 2019-04-[address] [facility] [id number] Univers 09:00:00 09:00:00 WONDIFUL ity o f [facility] 2019-04-19 2019-04-19 Telephone [facility] 1.2.840.114 [id number] [facility] 00:00:00 00:00:00 Efraín De Los Santoston 350.1.13.10 [place] [phone] [address] 2019-04-15 2019-04-15 [facility] 1.2.840.114 [id number] [facility] 00:00:00 00:00:00 Efraín De Los Santoston 350.1.13.10 [place] [phone] [address] 2019-03-23 2019-03-23 [facility] 1.2.840.114 [id number] [facility] 09:58:29 11:26:48 Visit Efraín Radford Kristin 350.1.13.10 it[place] of [place] [phone] [address] 2019-03-22 2019-03-22 Dickerson [facility] 1.2.840.114 [id number] [facility] 00:00:00 00:00:00 Efraín Radford Kristin 350.1.13.10 [place] [phone] [address] 2019-03-22 2019-03-22 Dickerson [facility] 1.2.840.114 [id number] Univers 00:00:00 00:00:00 Efraín Radford Kristin 350.1.13.10 [place] [phone] [address] 2019-03-16 2019-03-16 [facility] 1.2.840.114 [id number] Univers 00:00:00 00:00:00 Efraín Foster 350.1.13.10 [place] [phone] Mi dictn nal 2 [facility] 2019-03-07 2019-03-07 Jonathan Carter [facility] 1.2.840.114 [id number] Univers 00:00:00 00:00:00 Efraín Foster 350.1.13.10 [place] [phone] [address] 2018-09-08 2018-09-08 Refill [facility] 1.2.840.114 [id number] Univers 00:00:00 00:00:00 Efraín Foster 350.1.13.10 [place] [phone] [address] Results Test Description Test Time Test Comments Results Result Comments Source GLUBED 2021-05-28 00:11:00 Test Item Value Reference Range Interpretation Comme nts GLUBED (test code = GLUBED) 115 MG/DL 70-105 H [id number] 12:02:00 Test Item Value Reference Range Interpretation Comments GLUBED (test code = GLUBED) 148 MG/DL 70-105 H [id number] 00:29:00 Test Item Value Reference Range Interpretation Comments GLUBED (test code = GLUBED) 124 MG/DL 70-105 H [id number] 20:43:00 Test Item Value Reference Range Interpretation Comments GLUBED (test code = GLUBED) 142 MG/DL 70-105 H [id number] 13:20:00 Test Item Value Reference Range Interpretation Comments GLUBED (test code = GLUBED) 180 MG/DL 70-105 H [id number] 05:56:00 Test Item Value Reference Range Interpretation Comments GLUBED (test code = GLUBED) 123 MG/DL 70-105 H [id number] 00:28:00 Test Item Value Reference Range Interpretation Comments GLUBED (test code = GLUBED) 104 MG/DL 70-105 N BASIC METABOLIC [id number] 08:07:00 Test Item Value Reference Range Interpretation Comments SODIUM (test code 140 mmol/L 136-145 N Please not e: New = NA) Reference Range Mar 2020 POTASSIUM (test 3.6 mmol/L 3.5-5.1 N code = K) CHLORIDE (test 97 mmol/L 98-107 L Please note: New code = CL) Reference Range Mar 2020 CARBON DIOXIDE 31 mmol/L 20-31 N Please note: New (test code = CO2) Reference Range Mar 2020 GLUCOSE (test code 116 mg/dL 74-106 H Please no te: New = GLU) Reference Range Mar 2020 BLOOD UREA 16 mg/dL 9-23 N Please note: Ne w NITROGEN (test Reference Ran ge Feb code = BUN) 2020 GLOMERULAR >=60 max >60 Units are FILTRATION RATE estimate mL/min mL/min/1. 73m2 The (test code = GFR) estimated glomerular filtration rate is computed usingpatient ra ce, age (>18), sex, and serum creatinin e. If anyof the neede d data elements a re missing the Laboratory brenda ot compute an estimation of t he glomerular filtration rate . CREATININE (test 0.90 mg/dL 0.55-1.02 N Please note : New code = CREAT) Reference Rang e Mar 2020 CALCIUM (test code 8.7 mg/dL 8.7-10.4 N Please no te: New = CA) Reference Range Mar 2020 [id number] 08:07:00 Test Item Value Reference Range Interpretation Comments PHOSPHOROUS (test code 2.9 mg/dL 2.4-5.1 N Pleas e note: New = PHOS) Reference Range Mar 2020 [id number] 08:07:00 Test Item Value Reference Range Interpretation Comments MAGNESIUM (test code = 1.8 mg/dL 1.6-2.6 N Pleas e note: New MAG) Reference Range Mar 2020 B-TYPE NATRIURETIC [id number] 08:07:00 Test Item Value Reference Range Interpretation Comments B-TYPE NATRIURETIC PEPTIDE (test 793 pg/mL <100 H code = BNP) CBC W/AUTO [id number] 07:49:00 Test Item Value Reference Range Interpretation Comments WHITE BLOOD CELL (test code = 6.0 x10 3/uL 4.8-10.8 N WBC) RED BLOOD CELL (test code = 5.08 x10 6/uL 4.20-5.40 N RBC) HEMOGLOBIN (test code = HGB) 13.0 g/dL 12.0-16.0 N HEMATOCRIT (test code = HCT) 41.2 % 37.0-47.0 N MEAN CELL VOLUME (test code = 81.1 fL 81.0-99.0 N MCV) MEAN CELL HGB (test code = MCH) 25.6 pg 27-31 L MEAN CELL HGB CONCENTRATION 31.6 G/DL 33-36.5 L (test code = MCHC) RED CELL DISTRIBUTION WIDTH 15.4 % 12.9-16.9 N (test code = RDW) PLATELET COUNT (test code = 414 x10 3/uL 150-440 N PLT) MEAN PLATELET VOLUME (test code 9.7 fL 8.9-12.4 N = MPV) NEUTROPHIL % (test code = NT%) 67.2 % 42.2-75.2 N LYMPHOCYTE % (test code = LY%) 18.3 % 20.5-51.1 L MONOCYTE % (test code = MO%) 9.1 % 1.7-9.3 N EOSINOPHIL % (test code = EO%) 4.2 % 0.0-7.0 N BASOPHIL % (test code = BA%) 0.5 % 0-2.5 N NEUTROPHIL # (test code = NT#) 4.05 x10 3/uL 1.80-7.70 N LYMPHOCYTE # (test code = LY#) 1.10 x10 3/uL 1.00-4.80 N MONOCYTE # (test code = MO#) 0.55 x10 3/uL 0.00-0.80 N EOSINOPHIL # (test code = EO#) 0.25 x10 3/uL 0.00-0.45 N BASOPHIL # (test code = BA#) 0.03 x10 3/uL 0.0-0.20 N [id number] 07:40:00 Test Item Value Reference Range Interpretation Comments GLUBED (test code = GLUBED) 115 MG/DL 70-105 H [id number] 00:35:00 Test Item Value Reference Range Interpretation Comments GLUBED (test code = GLUBED) 126 MG/DL 70-105 H [id number] 17:23:00 Test Item Value Reference Range Interpretation Comments GLUBED (test code = GLUBED) 121 MG/DL 70-105 H [id number] 11:54:00 Test Item Value Reference Range Interpretation Comments GLUBED (test code = GLUBED) 125 MG/DL 70-105 H [id number] 07:41:00 Test Item Value Reference Range Interpretation Comments GLUBED (test code = GLUBED) 116 MG/DL 70-105 H COMPREHENSIVE METABOLIC [id number] 07:16:00 Test Item Value Reference Range Interpretation Comments SODIUM (test code = 139 mmol/L 136-145 N Please n ote: New NA) Reference Range Mar 2020 POTASSIUM (test code 3.0 mmol/L 3.5-5.1 L = K) CHLORIDE (test code = 96 mmol/L 98-107 L Please note: New CL) Reference Range Mar 2020 CARBON DIOXIDE (test 32 mmol/L 20-31 H Please note: New code = CO2) Reference Range Mar 2020 GLUCOSE (test code = 114 mg/dL 74-106 H Please note: New GLU) Reference Range Mar 2020 BLOOD UREA NITROGEN 21 mg/dL 9-23 N Please n ote: New (test code = BUN) Reference Range Mar 2020 GLOMERULAR FILTRATION 52 mL/min >60 L Units are RATE (test code = mL/min/1.7 3m2 The GFR) estimated glome rular filtration rate is computed usingp atient race, age (>18) , sex, and serum creat inine. If anyof the ne eded data elements a re missing the Lab oratory cannot compute an estimation of t he glomerular filt ration rate. CREATININE (test code 1.10 mg/dL 0.55-1.02 H Please note: New = CREAT) Reference Range Mar 2020 TOTAL PROTEIN (test 5.5 g/dL 5.7-8.2 L Please n ote: New code = PROT) Reference Range Mar 2020 ALBUMIN (test code = 3.2 g/dL 3.2-4.8 N Please note: New ALB) Reference Range Mar 2020 CALCIUM (test code = 8.3 mg/dL 8.7-10.4 L Please note: New CA) Reference Range Mar 2020 BILIRUBIN TOTAL (test 0.3 mg/dL 0.3-1.2 N Please note: New code = BILT) Reference Range Mar 2020 SGOT/AST (test code = 20 U/L <34 N Please note: New AST) Reference Range Mar 2020 SGPT/ALT (test code = < 7 U/L 10-49 L Please note: New ALT) Reference Range Mar 2020 ALKALINE PHOSPHATASE 92 U/L 46-116 N Please note: New (test code = ALKP) Reference Range Mar 2020 CBC W/AUTO [id number] 07:07:00 Test Item Value Reference Range Interpretation Comments WHITE BLOOD CELL (test code = 6.4 x10 3/uL 4.8-10.8 N WBC) RED BLOOD CELL (test code = 4.62 x10 6/uL 4.20-5.40 N RBC) HEMOGLOBIN (test code = HGB) 12.0 g/dL 12.0-16.0 N HEMATOCRIT (test code = HCT) 37.9 % 37.0-47.0 N MEAN CELL VOLUME (test code = 82.0 fL 81.0-99.0 N MCV) MEAN CELL HGB (test code = MCH) 26.0 pg 27-31 L MEAN CELL HGB CONCENTRATION 31.7 G/DL 33-36.5 L (test code = MCHC) RED CELL DISTRIBUTION WIDTH 15.4 % 12.9-16.9 N (test code = RDW) PLATELET COUNT (test code = 391 x10 3/uL 150-440 N PLT) MEAN PLATELET VOLUME (test code 9.8 fL 8.9-12.4 N = MPV) NEUTROPHIL % (test code = NT%) 69.4 % 42.2-75.2 N LYMPHOCYTE % (test code = LY%) 17.9 % 20.5-51.1 L MONOCYTE % (test code = MO%) 9.9 % 1.7-9.3 H EOSINOPHIL % (test code = EO%) 1.7 % 0.0-7.0 N BASOPHIL % (test code = BA%) 0.2 % 0-2.5 N NEUTROPHIL # (test code = NT#) 4.43 x10 3/uL 1.80-7.70 N LYMPHOCYTE # (test code = LY#) 1.14 x10 3/uL 1.00-4.80 N MONOCYTE # (test code = MO#) 0.63 x10 3/uL 0.00-0.80 N EOSINOPHIL # (test code = EO#) 0.11 x10 3/uL 0.00-0.45 N BASOPHIL # (test code = BA#) 0.01 x10 3/uL 0.0-0.20 N [id number] 06:53:00 Test Item Value Reference Range Interpretation Comments GLUBED (test code = GLUBED) 108 MG/DL 70-105 H [id number] 00:32:00 Test Item Value Reference Range Interpretation Comments GLUBED (test code = GLUBED) 88 MG/DL 70-105 N [id number] 17:26:00 Test Item Value Reference Range Interpretation Comments GLUBED (test code = GLUBED) 103 MG/DL 70-105 N [id number] 12:28:00 Test Item Value Reference Range Interpretation Comments GLUBED (test code = GLUBED) 105 MG/DL 70-105 N [id number] 10:12:00 Test Item Value Reference Range Interpretation Comments GLUBED (test code = GLUBED) 166 MG/DL 70-105 H [id number] 06:35:00 Test Item Value Reference Range Interpretation Comments GLUBED (test code = GLUBED) 117 MG/DL 70-105 H [id number] 02:42:00 Test Item Value Reference Range Interpretation Comments GLUBED (test code = GLUBED) 116 MG/DL 70-105 H [id number] 12:06:00 Test Item Value Reference Range Interpretation Comments GLUBED (test code = GLUBED) 151 MG/DL 70-105 H - XR CHEST 1 [id number] 08:30:00 [facility] : 1950 Sex: FPatient Name: CYNDI MONTAÑO Unit No: [id number] EXAMS: CPT CODE: [id number] XR CHEST 1 V 17884 CHEST 1 VIEW: INDICATION: chf COMPARISON: There are no prior studies for comparison. Location: W1 A single portable AP view of the chest demonstrates moderate cardiomegaly with a mildly elongated aorta. A nasogastric tube extends to the stomach. Mild hazy bilateral lung opacitiesare visible. No apparent pleural effusion nor pneumothorax. The visualized bony structures are unremarkable. IMPRESSION: 1. Mild CHF. at 0830 Reported and signed by: Delio Manley MD CC: Kt Holly MD; Alberto Rdoriguez MD Technologist: Gavin Ledesma Fluoro Time: DAP (Gy m2): Air Kerma (mGy): Trscr Dt/Tm: 05/22/2021 (829) by:[email or web address] Printed Date/Time: 05/22/2021 (0833) Name: CYNDI MONTAÑO [facility] Phys: Alberto Carrizales [address] : 1950 Age: 70 Sex: [place] [address] Loc: [phone] 1 Exam Date: 05/22/2021 Status: ADM IN PH: FAX: PAGE 1 Signed ReportBASIC METABOLIC [id number] 07:12:00 Test Item Value Reference Range Interpretation Comments SODIUM (test code 137 mmol/L 136-145 N Please not e: New = NA) Reference Range Mar 2020 POTASSIUM (test 3.3 mmol/L 3.5-5.1 L code = K) CHLORIDE (test 92 mmol/L 98-107 L Please note: New code = CL) Reference Range Mar 2020 CARBON DIOXIDE 34 mmol/L 20-31 H Please note: New (test code = CO2) Reference Range Mar 2020 GLUCOSE (test code 178 mg/dL 74-106 H Please no te: New = GLU) Reference Range Mar 2020 BLOOD UREA 11 mg/dL 9-23 N Please note: Ne w NITROGEN (test Reference Ran ge Feb code = BUN) 2020 GLOMERULAR >=60 max >60 Units are FILTRATION RATE estimate mL/min mL/min/1. 73m2 The (test code = GFR) estimated glomerular filtration rate is computed usingpatient ra ce, age (>18), sex, and serum creatinin e. If anyof the neede d data elements a re missing the Laboratory brenda ot compute an estimation of t he glomerular filtration rate . CREATININE (test 0.70 mg/dL 0.55-1.02 N Please note : New code = CREAT) Reference Rang e Mar 2020 CALCIUM (test code 8.0 mg/dL 8.7-10.4 L Please no te: New = CA) Reference Range Mar 2020 B-TYPE NATRIURETIC [id number] 07:12:00 Test Item Value Reference Range Interpretation Comments B-TYPE NATRIURETIC PEPTIDE (test 857 pg/mL <100 H code = BNP) [id number] 00:21:00 Test Item Value Reference Range Interpretation Comments GLUBED (test code = GLUBED) 155 MG/DL 70-105 H [id number] 17:53:00 Test Item Value Reference Range Interpretation Comments MAGNESIUM (test code = 1.5 mg/dL 1.6-2.6 L Pleas e note: New MAG) Reference Range Mar 2020 [id number] 17:23:00 Test Item Value Reference Range Interpretation Comments GLUBED (test code = GLUBED) 170 MG/DL 70-105 H [id number] 13:04:00 Test Item Value Reference Range Interpretation Comments GLUBED (test code = GLUBED) 153 MG/DL 70-105 H BASIC METABOLIC [id number] 11:13:00 Test Item Value Reference Range Interpretation Comments SODIUM (test code 138 mmol/L 136-145 N Please not e: New = NA) Reference Range Mar 2020 POTASSIUM (test 2.6 mmol/L 3.5-5.1 L code = K) CHLORIDE (test 94 mmol/L 98-107 L Please note: New code = CL) Reference Range Mar 2020 CARBON DIOXIDE 32 mmol/L 20-31 H Please note: New (test code = CO2) Reference Range Mar 2020 GLUCOSE (test code 173 mg/dL 74-106 H Please no te: New = GLU) Reference Range Mar 2020 BLOOD UREA 8 mg/dL 9-23 L Please note: Ne w NITROGEN (test Reference Ran ge Feb code = BUN) 2020 GLOMERULAR >=60 max >60 Units are FILTRATION RATE estimate mL/min mL/min/1. 73m2 The (test code = GFR) estimated glomerular filtration rate is computed usingpatient ra ce, age (>18), sex, and serum creatinin e. If anyof the neede d data elements a re missing the Laboratory brenda ot compute an estimation of t he glomerular filtration rate . CREATININE (test 0.60 mg/dL 0.55-1.02 N Please note : New code = CREAT) Reference Rang e Mar 2020 CALCIUM (test code 7.4 mg/dL 8.7-10.4 L Please no te: New = CA) Reference Range Mar 2020 [id number] 07:33:00 Test Item Value Reference Range Interpretation Comments GLUBED (test code = GLUBED) 140 MG/DL 70-105 H [id number] 00:56:00 Test Item Value Reference Range Interpretation Comments GLUBED (test code = GLUBED) 118 MG/DL 70-105 H [id number] 17:29:00 Test Item Value Reference Range Interpretation Comments GLUBED (test code = GLUBED) 118 MG/DL 70-105 H [id number] 12:33:00 Test Item Value Reference Range Interpretation Comments GLUBED (test code = GLUBED) 134 MG/DL 70-105 H BASIC METABOLIC [id number] 08:34:00 Test Item Value Reference Range Interpretation Comments SODIUM (test code 141 mmol/L 136-145 N Please not e: New = NA) Reference Range Mar 2020 POTASSIUM (test 2.8 mmol/L 3.5-5.1 L code = K) CHLORIDE (test 96 mmol/L 98-107 L Please note: New code = CL) Reference Range Mar 2020 CARBON DIOXIDE 30 mmol/L 20-31 N Please note: New (test code = CO2) Reference Range Mar 2020 GLUCOSE (test code 119 mg/dL 74-106 H Please no te: New = GLU) Reference Range Mar 2020 BLOOD UREA 14 mg/dL 9-23 N Please note: Ne w NITROGEN (test Reference Ran ge Mar code = BUN) 2020 GLOMERULAR >=60 max >60 Units are FILTRATION RATE estimate mL/min mL/min/1. 73m2 The (test code = GFR) estimated glomerular filtration rate is computed usingpatient ra ce, age (>18), sex, and serum creatinin e. If anyof the neede d data elements a re missing the Laboratory brenda ot compute an estimation of t he glomerular filtration rate . CREATININE (test 0.80 mg/dL 0.55-1.02 N Please note : New code = CREAT) Reference Rang e Mar 2020 CALCIUM (test code 8.9 mg/dL 8.7-10.4 N Please no te: New = CA) Reference Range Mar 2020 CBC W/AUTO [id number] 08:07:00 Test Item Value Reference Range Interpretation Comments WHITE BLOOD CELL (test code = 8.9 x10 3/uL 4.8-10.8 N WBC) RED BLOOD CELL (test code = 4.57 x10 6/uL 4.20-5.40 N RBC) HEMOGLOBIN (test code = HGB) 11.9 g/dL 12.0-16.0 L HEMATOCRIT (test code = HCT) 38.3 % 37.0-47.0 N MEAN CELL VOLUME (test code = 83.8 fL 81.0-99.0 N MCV) MEAN CELL HGB (test code = MCH) 26.0 pg 27-31 L MEAN CELL HGB CONCENTRATION 31.1 G/DL 33-36.5 L (test code = MCHC) RED CELL DISTRIBUTION WIDTH 16.0 % 12.9-16.9 N (test code = RDW) PLATELET COUNT (test code = 355 x10 3/uL 150-440 N PLT) MEAN PLATELET VOLUME (test code 9.7 fL 8.9-12.4 N = MPV) NEUTROPHIL % (test code = NT%) 80.4 % 42.2-75.2 H LYMPHOCYTE % (test code = LY%) 11.7 % 20.5-51.1 L MONOCYTE % (test code = MO%) 6.9 % 1.7-9.3 N EOSINOPHIL % (test code = EO%) 0.7 % 0.0-7.0 N BASOPHIL % (test code = BA%) 0.0 % 0-2.5 N NEUTROPHIL # (test code = NT#) 7.12 x10 3/uL 1.80-7.70 N LYMPHOCYTE # (test code = LY#) 1.04 x10 3/uL 1.00-4.80 N MONOCYTE # (test code = MO#) 0.61 x10 3/uL 0.00-0.80 N EOSINOPHIL # (test code = EO#) 0.06 x10 3/uL 0.00-0.45 N BASOPHIL # (test code = BA#) 0.00 x10 3/uL 0.0-0.20 N [id number] 05:32:00 Test Item Value Reference Range Interpretation Comments GLUBED (test code = GLUBED) 118 MG/DL 70-105 H [id number] 00:15:00 Test Item Value Reference Range Interpretation Comments GLUBED (test code = GLUBED) 99 MG/DL 70-105 N [id number] 12:09:00 Test Item Value Reference Range Interpretation Comments GLUBED (test code = GLUBED) 184 MG/DL 70-105 H [id number] 08:04:00 Test Item Value Reference Range Interpretation Comments GLUBED (test code = GLUBED) 193 MG/DL 70-105 H [id number] 08:04:00 Test Item Value Reference Range Interpretation Comments GLUBED (test code = GLUBED) 189 MG/DL 70-105 H BASIC METABOLIC [id number] 07:37:00 Test Item Value Reference Range Interpretation Comments SODIUM (test code 144 mmol/L 136-145 N Please not e: New = NA) Reference Range Mar 2020 POTASSIUM (test 3.3 mmol/L 3.5-5.1 L code = K) CHLORIDE (test 100 mmol/L 98-107 N Please note: New code = CL) Reference Range Mar 2020 CARBON DIOXIDE 30 mmol/L 20-31 N Please note: New (test code = CO2) Reference Range Mar 2020 GLUCOSE (test code 186 mg/dL 74-106 H Please no te: New = GLU) Reference Range Mar 2020 BLOOD UREA 12 mg/dL 9-23 N Please note: Ne w NITROGEN (test Reference Ran ge Feb code = BUN) 2020 GLOMERULAR >=60 max >60 Units are FILTRATION RATE estimate mL/min mL/min/1. 73m2 The (test code = GFR) estimated glomerular filtration rate is computed usingpatient ra ce, age (>18), sex, and serum creatinin e. If anyof the neede d data elements a re missing the Laboratory brenda ot compute an estimation of t he glomerular filtration rate . CREATININE (test 0.70 mg/dL 0.55-1.02 N Please note : New code = CREAT) Reference Rang e Mar 2020 CALCIUM (test code 8.5 mg/dL 8.7-10.4 L Please no te: New = CA) Reference Range Mar 2020 COMPREHENSIVE METABOLIC [id number] 07:37:00 Test Item Value Reference Range Interpretation Comments TOTAL PROTEIN (test 6.2 g/dL 5.7-8.2 N Please n ote: New code = PROT) Reference Range Mar 2020 ALBUMIN (test code = 3.6 g/dL 3.2-4.8 N Please note: New ALB) Reference Range Mar 2020 BILIRUBIN TOTAL (test 0.4 mg/dL 0.3-1.2 N Please note: New code = BILT) Reference Range Mar 2020 SGOT/AST (test code = 20 U/L <34 N Please note: New AST) Reference Range Mar 2020 SGPT/ALT (test code = 9 U/L 10-49 L Please note: New ALT) Reference Range Mar 2020 ALKALINE PHOSPHATASE 111 U/L 46-116 N Please note: New (test code = ALKP) Reference Range Mar 2020 CBC W/AUTO [id number] 07:30:00 Test Item Value Reference Range Interpretation Comments WHITE BLOOD CELL (test code = 9.5 x10 3/uL 4.8-10.8 N WBC) RED BLOOD CELL (test code = 4.45 x10 6/uL 4.20-5.40 N RBC) HEMOGLOBIN (test code = HGB) 11.5 g/dL 12.0-16.0 L HEMATOCRIT (test code = HCT) 37.8 % 37.0-47.0 N MEAN CELL VOLUME (test code = 84.9 fL 81.0-99.0 N MCV) MEAN CELL HGB (test code = MCH) 25.8 pg 27-31 L MEAN CELL HGB CONCENTRATION 30.4 G/DL 33-36.5 L (test code = MCHC) RED CELL DISTRIBUTION WIDTH 15.9 % 12.9-16.9 N (test code = RDW) PLATELET COUNT (test code = 381 x10 3/uL 150-440 N PLT) MEAN PLATELET VOLUME (test code 9.8 fL 8.9-12.4 N = MPV) NEUTROPHIL % (test code = NT%) 86.0 % 42.2-75.2 H LYMPHOCYTE % (test code = LY%) 6.6 % 20.5-51.1 L MONOCYTE % (test code = MO%) 6.9 % 1.7-9.3 N EOSINOPHIL % (test code = EO%) 0.1 % 0.0-7.0 N BASOPHIL % (test code = BA%) 0.1 % 0-2.5 N NEUTROPHIL # (test code = NT#) 8.17 x10 3/uL 1.80-7.70 H LYMPHOCYTE # (test code = LY#) 0.63 x10 3/uL 1.00-4.80 L MONOCYTE # (test code = MO#) 0.66 x10 3/uL 0.00-0.80 N EOSINOPHIL # (test code = EO#) 0.01 x10 3/uL 0.00-0.45 N BASOPHIL # (test code = BA#) 0.01 x10 3/uL 0.0-0.20 N [id number] 17:32:00 Test Item Value Reference Range Interpretation Comments GLUBED (test code = GLUBED) 192 MG/DL 70-105 H [id number] 13:01:00 Test Item Value Reference Range Interpretation Comments GLUBED (test code = GLUBED) 205 MG/DL 70-105 H [id number] 13:01:00 Test Item Value Reference Range Interpretation Comments GLUBED (test code = GLUBED) 213 MG/DL 70-105 H [id number] 13:01:00 Test Item Value Reference Range Interpretation Comments GLUBED (test code = GLUBED) 257 MG/DL 70-105 H - XR ABDOMEN [id number] 08:26:00 [facility] : 1950 Sex: FPatient Name: CYNDI MONTAÑO Unit No: [id number] EXAMS: CPT CODE: [id number] XR ABDOMEN 1V [id number] ABDOMEN, SINGLE VIEW DICTATION LOCATION A1 HISTORY: Small bowel obstruction. A single view of the abdomen 7:32 AM was compared to a abdomen and pelvis CT from May 17, 2021. FINDINGS: Mild constipation has improved but persists. Nasogastric tube is in a decompressed stomach. Small bowel gas pattern is nonspecific. IMPRESSION: Improvement in constipation. No other new finding or change. at 0826 Reported and signed by: Yariel Patel Jr, MD CC: Kt Holly MD; Hoang Lake Jr, MD Technologist: Gavin Mccall Time: DAP (Gy m2): Air Kerma (mGy): Trscr Dt/Tm: 05/18/2021 (825) by:Efren Printed Date/Time: 05/18/2021 (828) Name: CYNDI MONTAÑO [facility] Phys: Hoang Johnson Jr, MD [address] : 1950 Age: 70 Sex: [place] [address] Loc: [phone] 1 Exam Date: 05/18/2021 Status: ADM IN PH: FAX: PAGE 1 Signed ReportCOMPREHENSIVE METABOLIC [id number] 06:58:00 Test Item Value Reference Range Interpretation Comments SODIUM (test code = 143 mmol/L 136-145 N Please n ote: New NA) Reference Range Mar 2020 POTASSIUM (test 3.2 mmol/L 3.5-5.1 L code = K) CHLORIDE (test code 99 mmol/L 98-107 N Please n ote: New = CL) Reference Range Mar 2020 CARBON DIOXIDE 30 mmol/L 20-31 N Please note: New (test code = CO2) Reference Range Mar 2020 GLUCOSE (test code 231 mg/dL 74-106 H Please no te: New = GLU) Reference Range Mar 2020 BLOOD UREA NITROGEN 10 mg/dL 9-23 N Please n ote: New (test code = BUN) Reference Range Mar 2020 GLOMERULAR >=60 max >60 Units are FILTRATION RATE estimate mL/min mL/min/1. 73m2 The (test code = GFR) estimated glomerular filtration rate is computed usingpatient ra ce, age (>18), sex, and serum creatinin e. If anyof the ne eded data elements a re missing the Laboratory brenda ot compute an estimation of t he glomerular filtration rate . CREATININE (test 0.60 mg/dL 0.55-1.02 N Please note : New code = CREAT) Reference Rang e Mar 2020 TOTAL PROTEIN (test 6.0 g/dL 5.7-8.2 N Please n ote: New code = PROT) Reference Range Mar 2020 ALBUMIN (test code 3.4 g/dL 3.2-4.8 N Please no te: New = ALB) Reference Range Mar 2020 CALCIUM (test code 8.4 mg/dL 8.7-10.4 L Please no te: New = CA) Reference Range Mar 2020 BILIRUBIN TOTAL 0.3 mg/dL 0.3-1.2 N Please note: New (test code = BILT) Reference Range Mar 2020 SGOT/AST (test code 16 U/L <34 N Please n ote: New = AST) Reference Range Mar 2020 SGPT/ALT (test code < 7 U/L 10-49 L Please n ote: New = ALT) Reference Range Mar 2020 ALKALINE 118 U/L 46-116 H Please note: Ne w PHOSPHATASE (test Reference Range Feb code = ALKP) 2020 LIPID PROFILE (CORONARY RISK)2021-05-18 06:58:00 Test Item Value Reference Range Interpretation Comments TRIGLYCERIDES (test 86 mg/dL <150 N Please n ote: New code = TRIG) Reference Range Mar 2020 CHOLESTEROL (test code 145 mg/dL <200 N Pleas e note: New = CHOL) Reference Range Mar 2020 HDL CHOLESTEROL (test 46 mg/dL <60 N Please note: New code = HDL) Reference Range Mar 2020 LIPOPROTEIN LDL (test 79 mg/dL <100 N INTERP RETATIVE code = LDLC) DATA:LDL Choles terol: Reference RangesOptimal: <100 mg/dLNear Optim al: 100 -129 mg/dLBorde rline High: 130 - 15 9 mg/dLHigh: 160 - 189 mg/dLVery High: = or > 190 mg/dL CORONARY RISK FACTOR 3.15 (test code = RISK) CHOL/HDL RISK MALE: 1/2 AVG 3.43 FEMALE: 1/2 AV G 3.27 AVG 4.97 AVG 4.44 2X AVG 9.55 2X AVG 7.05 3X AVG 23.39 3X AVG 11.04~~~~~~~~~~ ~~~~~~~ ~~~~~~~~~~~~~~~ ~~~~~~~ ~~~~~~~~~~~~~~~ ~~~~~~N ational Cholest tacos Education (NCEP ) Guidelines:~~~~ ~~~~~~~ ~~~~~~~~~~~~~~~ ~~~~~~~ ~~~~~~~~~~~~~~~ ~~~~~~~ ~~~~~ HDL Cholesterol<4 0mg/dL: HDL Cholesterol (Major risk factor for CHD)>60mg/dL: H DL Cholesterol (Ne gative risk factor for CHD)40-59mg/dL: Borderline Risk L DL Cholesterol<1 00mg/dL : Desirable LDL -C [id number] 0-159mg /dL: Borderline High Risk LDL-C ezdjpvrixfwvz17 0-189mg /dL: High risk LDL-C concentration H DL-LDL Cholesterol is affected by a n umber of factors such as smoking, age an d sex.~~~~~~~~~~~ ~~~~~~~ ~~~~~~~~~~~~~~~ ~~~~~~~ ~~~~~~~~~~~~~~~ ~~~~~ HGBA1C - GLYCOSYLATED [id number] 06:58:00 Test Item Value Reference Range Interpretation Comments GLYCOSYLATED HEMOGLOBIN 6.9 % <5.7 H Diab etic >/= (HA1C) (test code = 6.5%Pred iabetes GLYHGB) 5.7-6.4%Normal < 5.7% CBC W/AUTO [id number] 06:40:00 Test Item Value Reference Range Interpretation Comments WHITE BLOOD CELL (test code = 8.3 x10 3/uL 4.8-10.8 N WBC) RED BLOOD CELL (test code = 4.66 x10 6/uL 4.20-5.40 N RBC) HEMOGLOBIN (test code = HGB) 12.1 g/dL 12.0-16.0 N HEMATOCRIT (test code = HCT) 38.9 % 37.0-47.0 N MEAN CELL VOLUME (test code = 83.5 fL 81.0-99.0 N MCV) MEAN CELL HGB (test code = MCH) 26.0 pg 27-31 L MEAN CELL HGB CONCENTRATION 31.1 G/DL 33-36.5 L (test code = MCHC) RED CELL DISTRIBUTION WIDTH 15.7 % 12.9-16.9 N (test code = RDW) PLATELET COUNT (test code = 397 x10 3/uL 150-440 N PLT) MEAN PLATELET VOLUME (test code 10.1 fL 8.9-12.4 N = MPV) NEUTROPHIL % (test code = NT%) 86.3 % 42.2-75.2 H LYMPHOCYTE % (test code = LY%) 5.7 % 20.5-51.1 L MONOCYTE % (test code = MO%) 7.6 % 1.7-9.3 N EOSINOPHIL % (test code = EO%) 0.0 % 0.0-7.0 N BASOPHIL % (test code = BA%) 0.0 % 0-2.5 N NEUTROPHIL # (test code = NT#) 7.13 x10 3/uL 1.80-7.70 N LYMPHOCYTE # (test code = LY#) 0.47 x10 3/uL 1.00-4.80 L MONOCYTE # (test code = MO#) 0.63 x10 3/uL 0.00-0.80 N EOSINOPHIL # (test code = EO#) 0.00 x10 3/uL 0.00-0.45 N BASOPHIL # (test code = BA#) 0.00 x10 3/uL 0.0-0.20 N [id number] 04:52:00 Test Item Value Reference Range Interpretation Comments GLUBED (test code = GLUBED) 200 MG/DL 70-105 H [id number] 04:52:00 Test Item Value Reference Range Interpretation Comments GLUBED (test code = GLUBED) 260 MG/DL 70-105 H [id number] 17:59:00 Test Item Value Reference Range Interpretation Comments GLUBED (test code = GLUBED) 221 MG/DL 70-105 H [id number] 17:59:00 Test Item Value Reference Range Interpretation Comments GLUBED (test code = GLUBED) 207 MG/DL 70-105 H - CT ABD PELVIS [id number] 12:45:00 [facility] [place] [place] : 1950 Sex: FPatient Name: CYNDI MONTAÑO Unit No: [id number] EXAMS: CPT CODE: [id number] CT ABD PELVIS W/CONT [id number] EXAM: - CT ABD PELVIS W/CONT Location: B2 INDICATION: Colon obstruction, suspect due to Diverticulitis. COMPARISON: None Technique: Axial images of the abdomen, and pelvis were obtained after the administration of 100 mL Isovue 300 intravenous contrast. Coronal and sagittal reformatted images were created. One or more of the following dose reduction techniques were used: Automated exposure control, adjustment of the mA and/or kV according to patient size, and/or utilizationof iterative reconstruction technique. GFR: , Creatinine: 0.7 mg/dL DLP: 892 mGy-cm. FINDINGS: Abdomen Lower thorax: Minimal dependent airspace densities are noted in the lung bases. There is prominence of central pulmonary vessels. Heart ismoderately enlarged. There is no pericardial effusion. Hepatobiliary: No visualized abnormality. No discrete intrahepatic lesions. No biliary ductal dilatation. No perihepatic ascites. Gallbladder: Surgical absence. Spleen: No visualized abno rmality. Pancreas: Atrophic Adrenals: Slight thickening of the adrenalglands may indicate adenomatosis versus hyperplasia. Kidneys: No visualized abnormality. No hydronephrosis or hydroureter. Bowel: There is marked dilation of colonic loops filled with contrast, debris and stool followed to the sigmoid colon. There is abnormal mural thickening of short section of sigmoid colon measuring approximately 5 cm possibly sequelae of diverticulitis. There is minimal infiltration in the adjacent sigmoid mesial colon. Underlying lesion is not entirely excluded. Small gas and stool is seen more distallywithin the sigmoid colon. There is mild fluid and contrast distention of the small bowel loops. Appendix is not visualized. The stomach and gastroesophageal junction are within normal limits. NG tube is present with tip at the mid gastric body. The stomach is collapsed. There is small hiatal hernia. Vessels: No visualized abnormality. Name: CYNDI MONTAÑO [facility] Phys: Ho Chavez [address] : 1950 Age: 70 Sex: F [place], [place] [address]Domk No: [id number] Loc: P.[id number] 1 Exam Date: 05/17/2021 Status: ADM IN : FAX: PAGE 1 Signed Report (CONTINUED) Patient Name: CYNDI MONTAÑO Unit No: [id number] EXAMS: CPT CODE: [id number] CT ABD PELVIS W/CONT 05938 <Continued> Lymph nodes: No lymphadenopathy Peritoneum/retroperitoneum: No intraabdominal free air or free fluid. FINDINGS: Pelvis Pelvic organs/bladder: Urinary bladder is mildly distended. There is surgical absence of the uterus. There is small free pelvic fluid. Adnexal structures are within normal limits. Lymph nodes: No pelvic or inguinal adenopathy. Bones/soft tissues: No acute fracture or dislocation. No osteolytic or osteosclerotic lesions. IMPRESSION: 1. Abnormal dilation of colonic loops followed to the sigmoid colon where there is a 5 cm section of narrowing which may represent sequelae of diverticulitis although underlying lesion is not excluded. There is also dilation of small bowel loops. 2. Mild dependent atelectasis versus pneumonitis. 3. Cardiomegaly and pulmonary venous hypertension. 4. Adrenal hyperplasia versus adenomatosis. 5. Nonspecific small free pelvic fluid. Uterus is surgically absent. Electro nically Signed by DEREK GARCIA M.D. on 05/17/2021 at 1245 Reported and signed by: DEREK GARCIA M.D. CC: Kt Holly MD; Ho Cody MD Technologist: Lester Winkler CTDI: 14.37 DLP: [id number] Trscr Dt/Tm: 05/17/2021 (8420) by:[email or web address] Printed Date/Time: 05/17/2021 (7272)Name: CYNDI MONTAÑO [facility] Phys: Ho Chavez [address] : 1950 Age: 70 Sex: [place] [address] Loc: P.0635 1 Exam Date: 05/17/2021 Status: ADM IN PH: FAX: PAGE 2 Signed Report- US ABDOMEN [id number] 11:02:00 [facility] 1950 Sex: FPatient Name: CYNDI MONTAÑO Unit No: [id number] EXAMS: CPT CODE: [id number] US ABDOMEN COMPLETE 30677 EXAM: ABDOMINAL ULTRASOUND COMPLETE INDICATION: abdominal pain LOCATION CODE: A 1 COMPARISON: None available. TECHNIQUE: Grayscale and limited color sonographic evaluation of the abdomen was performed. FINDINGS: Evaluation is limited by patient body habitus and overlying right upperquadrant scar. LIVER: The right liver measures 16.2 cm in craniocaudal dimension. No focal hepatic lesions are identified. The main portal vein shows hepatopetal flow. BILE DUCTS: No intrahepatic biliary duct dilatation is seen. The common bile duct measures 0.2 cm. GALLBLADDER: Not clearly seen, possibly surgically absent. PANCREAS: Not well seen due to overlying shadowing. SPLEEN: The spleen measures 11.7 cm. No focal splenic lesions are seen. KIDNEY: The right kidney measures 12.2 x 5.7 x 6.1 cm. The left kidney measures 11.3 x 6.4 x 5.6 cm. There is normal renal contour and morphology, with normal parenchymal echotexture. There is no hydronephrosis. AORTA AND INFERIOR VENA CAVA: Visualized portionsappear unremarkable. ASCITES: There is no abdominal ascites. IMPR ESSION: Limited evaluation due to patient body habitus and overlying right upper quadrant scar. No acute abdominal abnormality is clearly seen. Name: CYNDI MONTAÑO [facility] Phys: Kt Wilson MD [address] DOB: 1950 Age: 70 Sex: [place] [address] Loc: P.0635 1 Exam Date: 05/17/2021 Status: ADM IN PH: FAX: PAGE 1 Signed Report (CONTINUED) Patient Name: CYNDI MONTAÑO Unit No: [id number] EXAMS: CPT CODE: [id number] US ABDOMEN COMPLETE [id number] <Continued> at 1102 Reported and signed by: SHELIA CROWELL M.D. CC: Kt Holly MD Technologist: TERI CONNOR RDMS () Tyrel gonzalez: Austen Dt/Tm: 05/17/2021 (1102) by:[email or web address] PrintedDate/Time: 05/17/2021 (1106) Name: SABRACYNDI [facility] Phys: Kt Wilson MD [address] DOB: 1950 Age: 70 Sex: [place] [address] Loc: P.0635 1 Exam Date: 05/17/2021 Status: ADM IN PH: FAX: PAGE 2 Signed Report- XR ABDOMEN [id number] 10:33:00 [facility] : 1950 Sex: FPatient Name: CYNDI MONTAÑO Unit No: [id number] EXAMS: CPT CODE: [id number] XR ABDOMEN 1V 56735 EXAM: XR ABDOMEN 1 VIEW INDICATION: NG TUBE PLACEMENT LOCATION: A1 COMPARISON: None. TECHNIQUE: AP view of theabdomen. FINDINGS: Nasogastric tube has its tip and side-port in the stomach. There is gaseous distention of large bowel loops throughout the abdomen. Contrast is seen in the urinary bladder. No acute osseous abnormality is seen. IMPRESSION: 1. Nasogastric tube with tip and side-port in the stomach. 2. Gaseous distention of multiple large bowel loops throughout the abdomen. at 1033 Reported and signed by: SHELIA CROWELL M.D. CC: Kt Holly MD; Lorenzo Monaco DO Technologist: Barbara Mccall Time: DAP (Gy m2): Air Kerma (mGy): Trscr Dt/Tm: 05/17/2021 (1033) by:[email or web address] Printed Date/Time: 05/17/2021 (1036) Name: CYNDI MONTAÑO [facility] Phys: SOPHIE Monaco,Lorenzo DO [address] : 1950 Age: 70 Sex: F [place] [id number] Loc: P.0635 1 Exam Date: 05/17/2021 Status: ADM IN PH: FAX: PAGE 1 Signed ReportCOMPREHENSIVE METABOLIC [id number] 08:49:00 Test Item Value Reference Range Interpretation Comments SODIUM (test code = 141 mmol/L 136-145 N Please n ote: New NA) Reference Range Mar 2020 POTASSIUM (test 3.4 mmol/L 3.5-5.1 L code = K) CHLORIDE (test code 97 mmol/L 98-107 L Please n ote: New = CL) Reference Range Mar 2020 CARBON DIOXIDE 32 mmol/L 20-31 H Please note: New (test code = CO2) Reference Range Mar 2020 GLUCOSE (test code 193 mg/dL 74-106 H Please no te: New = GLU) Reference Range Mar 2020 BLOOD UREA NITROGEN 12 mg/dL 9-23 N Please n ote: New (test code = BUN) Reference Range Mar 2020 GLOMERULAR >=60 max >60 Units are FILTRATION RATE estimate mL/min mL/min/1. 73m2 The (test code = GFR) estimated glomerular filtration rate is computed usingpatient ra ce, age (>18), sex, and serum creatinin e. If anyof the ne eded data elements a re missing the Laboratory brenda ot compute an estimation of t he glomerular filtration rate . CREATININE (test 0.70 mg/dL 0.55-1.02 N Please note : New code = CREAT) Reference Rang e Mar 2020 TOTAL PROTEIN (test 6.4 g/dL 5.7-8.2 N Please n ote: New code = PROT) Reference Range Mar 2020 ALBUMIN (test code 3.7 g/dL 3.2-4.8 N Please no te: New = ALB) Reference Range Mar 2020 CALCIUM (test code 8.7 mg/dL 8.7-10.4 N Please no te: New = CA) Reference Range Mar 2020 BILIRUBIN TOTAL 0.5 mg/dL 0.3-1.2 N Please note: New (test code = BILT) Reference Range Mar 2020 SGOT/AST (test code 21 U/L <34 N Please n ote: New = AST) Reference Range Mar 2020 SGPT/ALT (test code 8 U/L 10-49 L Please n ote: New = ALT) Reference Range Mar 2020 ALKALINE 132 U/L 46-116 H Please note: Ne w PHOSPHATASE (test Reference Range Feb code = ALKP) 2020 [id number] 08:49:00 Test Item Value Reference Range Interpretation Comments MAGNESIUM (test code = 1.6 mg/dL 1.6-2.6 N Pleas e note: New MAG) Reference Range Mar 2020 THYROID STIMULATING [id number] 08:49:00 Test Item Value Reference Range Interpretation Comments THYROID STIMULATING 1.25 mIU/mL 0.55-4.78 N Please n ote: New HORMONE (test code = Referen ce Range Mar TSH) 2020 PROTHROMBIN [id number] 08:35:00 Test Item Value Reference Range Interpretation Comments PROTHROMBIN TIME 14.5 SECONDS 10.3-12.9 H PATIENT (test code = PTP) INTERNATIONAL 1.27 INR UNIT 0.9-1.11 H The INR is us eful only NORMAL RATIO (test for monit oring code = INR) anticoagulant therapy.It may be unreliable in t he initial phase o f antigoagulation and in unstable patien ts. Indication for Anticoagulation Recommend ed INR 1. Prevention o f venous thomboembolism 2.0-3.0in high -risk patients; treat ment of venousthrombosi s and pulmonary embol ism aftera course o f heparin; preven tion of systemicembolis m in a variety of cond itions, including atria l fibrillation an d prothetic tissu e heart valves, 2. Pros thetic mechanical hear t valves; 2.5-3.5recurren t systemic emboli sm. THROMBOPLASTIN TIME [id number] 08:35:00 Test Item Value Reference Range Interpretation Comments THROMBOPLASTIN TIME 30.6 SECONDS 23.8-34.8 N INTERPRE TATIVE PARTIAL (test code = DATA: erapeutic PTT) range: Unfractionated heparin:55 - 80 seconds Argatroban:1.5 to 3 times the basel ine PTT CBC W/AUTO [id number] 08:27:00 Test Item Value Reference Range Interpretation Comments WHITE BLOOD CELL (test code = 7.7 x10 3/uL 4.8-10.8 N WBC) RED BLOOD CELL (test code = 5.00 x10 6/uL 4.20-5.40 N RBC) HEMOGLOBIN (test code = HGB) 12.9 g/dL 12.0-16.0 N HEMATOCRIT (test code = HCT) 42.0 % 37.0-47.0 N MEAN CELL VOLUME (test code = 84.0 fL 81.0-99.0 N MCV) MEAN CELL HGB (test code = MCH) 25.8 pg 27-31 L MEAN CELL HGB CONCENTRATION 30.7 G/DL 33-36.5 L (test code = MCHC) RED CELL DISTRIBUTION WIDTH 15.5 % 12.9-16.9 N (test code = RDW) PLATELET COUNT (test code = 366 x10 3/uL 150-440 N PLT) MEAN PLATELET VOLUME (test code 9.8 fL 8.9-12.4 N = MPV) NEUTROPHIL % (test code = NT%) 76.6 % 42.2-75.2 H LYMPHOCYTE % (test code = LY%) 12.5 % 20.5-51.1 L MONOCYTE % (test code = MO%) 10.1 % 1.7-9.3 H EOSINOPHIL % (test code = EO%) 0.3 % 0.0-7.0 N BASOPHIL % (test code = BA%) 0.1 % 0-2.5 N NEUTROPHIL # (test code = NT#) 5.89 x10 3/uL 1.80-7.70 N LYMPHOCYTE # (test code = LY#) 0.96 x10 3/uL 1.00-4.80 L MONOCYTE # (test code = MO#) 0.78 x10 3/uL 0.00-0.80 N EOSINOPHIL # (test code = EO#) 0.02 x10 3/uL 0.00-0.45 N BASOPHIL # (test code = BA#) 0.01 x10 3/uL 0.0-0.20 N
[2021-06-18 22:41] LABS: Arterial Blood Carboxyhemoglob 1.3 % (0-1.5); Blood Gas Oxyhemoglobin 90.6 % (94-97); Blood O2 Saturation 92.6 % (92-98.5)
[2021-06-18 22:58] LABS: Absolute Lymphocytes (CBC) 0.9 K/uL (0.7-4.9); Hematocrit 33.4 % (36.0-45.0); Lymphocytes % 15.4 % (15.3-44.8); MPV 7.9 fL (7.6-11.3); RBC Red Blood Cell Count 4.04 M/uL (3.86-4.86)
[2021-06-18 23:16] LABS: Potassium 4.2 mmol/L (3.5-5.1); Troponin High Sensitivity 28.5 pg/mL (<58.9)
--- NOTE | 2021-06-18 23:59 | ER ---
Nurse's Notes [facility] Name: Blanka Ferrell Age: 70 yrs Sex: Female : 1950 Arrival Date: 06/18/2021 Time: 22:07 Bed 14 Private MD: Diagnosis: Acute on chronic systolic (congestive) heart failure Presentation: 06/18 22:12 Chief complaint: EMS states: pt has been feeling sob for 3 weeks, got worse today and sm5 had a feeling of impending doom. 82% on RA for ems at home. pt also stating she has had a migraine for 2 days. Coronavirus screen: Vaccine status: Patient reports receiving the 2nd dose of the covid vaccine. Ebola Screen: No symptoms or risks identified at this time. Initial Sepsis Screen: Does the patient meet any 2 criteria? RR > 20 per min. No. Patient's initial sepsis screen is negative. Does the patient have a suspected source of infection? No. Patient's initial sepsis screen is negative. Risk Assessment: Do you want to hurt yourself or someone else? Patient reports no desire to harm self or others. Onset of symptoms was June 18, 2021. 22:12 Method Of Arrival: EMS: [facility] 22:12 Acuity: THALIA 3 5 Triage Assessment: 22:15 General: Appears uncomfortable, Behavior is cooperative. Pain: Complains of pain in 5 head. Neuro: No deficits noted. Level of Consciousness is awake, alert, obeys commands, Oriented to person, place, time, situation. Cardiovascular: No deficits noted. Capillary refill < 3 seconds Patient's skin is warm and dry. Respiratory: Reports shortness of breath at rest Airway is patent Trachea midline Respiratory effort is even, unlabored. Historical: - Allergies: 22:14 Imitrex; sm5 - PMHx: 22:14 Anxiety; Diabetes - IDDM; Hypertension; Migraines; Thyroid problem; TIA; Congestive 5 heart failure; - PSHx: 22:14 section; Cholecystectomy; hysterectomy; sm5 - Immunization history:: Client reports receiving the 2nd dose of the Covid vaccine. - Social history:: Smoking status: Patient denies any tobacco usage or history of. Screenin/06 00:07 Abuse screen: Denies threats or abuse. Denies injuries from another. Nutritional sm5 screening: No deficits noted. Tuberculosis screening: No symptoms or risk factors identified. Fall Risk None identified. Assessment: 06/18 22:15 General: See triage assessment. ll3 23:20 Reassessment: No changes from previously documented assessment. Patient and/or family sm5 updated on plan of care and expected duration. Pain level reassessed. 06/19 00:05 Reassessment: Patient and/or family updated on plan of care and expected duration. Pain sm5 level reassessed. Vital Signs: 06/18 22:12 BP 171 / 94; Pulse 90; Resp 30; Temp 98.8(T); Pulse Ox 86% on 6 lpm NC; Weight 106.59 sm5 kg; Height 5 ft. 5 in. (165.10 cm); Pain 9/10; 23:00 BP 166 / 92; Pulse 80; Resp 27; Pulse Ox 95% on BiPAP; sm5 06/19 01:04 BP 165 / 94; Pulse 81; Resp 29; Pulse Ox 93% on BiPAP; ll3 06/18 22:12 Body Mass Index 39.10 (106.59 kg, 165.10 cm) 5 ED Course: 06/18 22:07 Patient arrived in ED. ll3 22:10 Juan A Miller MD is Attending Physician. kdr 22:12 Anjelica Prince RN is Primary Nurse. sm5 22:14 Triage completed. sm5 22:16 Arm band placed on right wrist. sm5 22:16 Patient has correct armband on for positive identification. Bed in low position. Call 5 light in reach. Side rails up X2. outboard technician on. Pulse ox on. NIBP on. 23:02 Lactate Sent. sm5 23:02 Basic Metabolic Panel Sent. sm5 23:02 Troponin HS Sent. sm5 23:57 Jacquelyn Patricia MD is Hospitalizing Provider. kdr 06/19 00:11 XRAY Chest (1 view) In Process Unspecified. EDMS 00:39 COVID-19/FLU A+B (Document "Date of Onset" if Symptomatic) Sent. sm5 01:08 No provider procedures requiring assistance completed. Patient admitted, IV remains in ll3 place. No redness/swelling at site. 06:05 Notified ED physician of. keGilma Administered Medications: 00:39 Drug: Lasix (furosemide) 100 mg Route: IVP; Site: right forearm; sm5 01:09 Follow up: Response: No adverse reaction ll3 00:39 Drug: Ibuprofen 600 mg Route: PO; sm5 01:09 Follow up: Response: No adverse reaction ll3 00:45 Drug: XANax (alprazolam) Tablet 0.5 mg Route: PO; ll3 01:09 Follow up: Response: No adverse reaction ll3 Outcome: 06/18 23:58 Decision to Hospitalize by Provider. kdr 06/19 01:08 Admitted to [facility] Hold. [facility] ll3 Condition: stable Instructed on the need for admit. 01:08 Demonstrated understanding of instructions. ll3 22:05 Patient left the ED. lp1 Signatures: Dispatcher [employer] EDMS Juan A Miller MD MD kdr Selma Wilson RN RN lp1 Elias Terry RN RN ll3 Anjelica Prince RN RN sm5 Jennifer Torres RN RN ke1 Corrections: (The following items were deleted from the chart) 00:06 05 22:12 Pulse 90bpm; Resp 30bpm; Pulse Ox 86% 6 lpm Nasal Cannula; Temp 98.8F sm5 Tympanic; 106.59 kg; Height 5 ft. 5 in.; BMI: 39.1; Pain 9/10; sm5
--- NOTE | 2021-06-18 23:59 | EDPHYS ---
Physician Documentation [facility] Name: Blanka Ferrell Age: 70 yrs Sex: Female : 1950 Arrival Date: 06/18/2021 Time: 22:07 Bed 14 Private MD: ED Physician Juan A Miller HPI: 06/19 01:56 This 70 yrs old Black Female presents to ER via EMS with complaints of Shortness Of kdr Breath. 01:56 The patient has shortness of breath at rest. Onset: The symptoms/episode began/occurred kdr suddenly, just prior to arrival. Duration: The symptoms are intermittent, with no pattern. The patient's shortness of breath is aggravated by exertion, light activity, is alleviated by nothing. Patient presents to the ED via EMS. He indicated that she has been feeling short of breath for about 3 weeks. It got worse today. Her saturations were noted by EMS to be 82% on room air at home. He also states that she has had a migraine headache for about 2 days. According to the patient her physician Dr. Jacobs, had advanced her furosemide dose from 40 mg twice daily p.o. to 80 mg twice daily today. She is yet had not taken an elevated or increased dose. She was concerned that she has swelling that is tense from her toes all the way up to her groin. She has noted that her lower extremity weeping and swelling has diminished but overall her legs to remain very swollen edematous. 01:58 Severity of symptoms: At their worst the symptoms were mild moderate just prior to kdr arrival, in the emergency department the symptoms are unchanged. The patient has experienced similar episodes in the past, several times. The patient has not recently seen a physician. Historical: - Allergies: 06/18 22:14 Imitrex; sm5 - PMHx: 22:14 Anxiety; Diabetes - IDDM; Hypertension; Migraines; Thyroid problem; TIA; Congestive sm5 heart failure; - PSHx: 22:14 section; Cholecystectomy; hysterectomy; sm5 - Immunization history:: Client reports receiving the 2nd dose of the Covid vaccine. - Social history:: Smoking status: Patient denies any tobacco usage or history of. ROS: 06/19 01:58 Constitutional: Negative for fever, chills, and weight loss, Eyes: Negative for injury, kdr pain, redness, and discharge, ENT: Negative for injury, pain, and discharge, Neck: Negative for injury, pain, and swelling, Cardiovascular: Negative for chest pain, palpitations, and edema, Respiratory: Negative for shortness of breath, cough, wheezing, and pleuritic chest pain, Abdomen/GI: Negative for abdominal pain, nausea, vomiting, diarrhea, and constipation, Back: Negative for injury and pain, MS/Extremity: Negative for injury and deformity, Skin: Negative for injury, rash, and discoloration, Neuro: Negative for headache, weakness, numbness, tingling, and seizure activity. Psych: Negative for depression, anxiety, suicide ideation, homicidal ideation, and hallucinations, Allergy/Immunology: Negative for hives, rash, and allergies, Endocrine: Negative for neck swelling, polydipsia, polyuria, polyphagia, and marked weight changes, Hematologic/Lymphatic: Negative for swollen nodes, abnormal bleeding, and unusual bruising. 01:58 Cardiovascular: Positive for edema. kdr Exam: 01:58 Constitutional: This is a well developed, well nourished patient who is awake, alert, kdr and in no acute distress. Head/Face: Normocephalic, atraumatic. Eyes: Pupils equal round and reactive to light, extra-ocular motions intact. Lids and lashes normal. Conjunctiva and sclera are non-icteric and not injected. Cornea within normal limits. Periorbital areas with no swelling, redness, or edema. Neck: Trachea midline, no thyromegaly or masses palpated, and no cervical lymphadenopathy. Supple, full range of motion without nuchal rigidity, or vertebral point tenderness. No Meningismus. Chest/axilla: Normal chest wall appearance and motion. Nontender with no deformity. No lesions are appreciated. Cardiovascular: Regular rate and rhythm with a normal S1 and S2. No gallops, murmurs, or rubs. Normal PMI, no JVD. No pulse deficits. Respiratory: Lungs have equal breath sounds bilaterally, clear to auscultation and percussion. No rales, rhonchi or wheezes noted. No increased work of breathing, no retractions or nasal flaring. Abdomen/GI: Soft, non-tender, with normal bowel sounds. No distension or tympany. No guarding or rebound. No evidence of tenderness throughout. 05:43 ECG was reviewed by the Attending Physician. kdr Vital Signs: 06/18 22:12 BP 171 / 94; Pulse 90; Resp 30; Temp 98.8(T); Pulse Ox 86% on 6 lpm NC; Weight 106.59 sm5 kg; Height 5 ft. 5 in. (165.10 cm); Pain 9/10; 23:00 BP 166 / 92; Pulse 80; Resp 27; Pulse Ox 95% on BiPAP; sm5 06/19 01:04 BP 165 / 94; Pulse 81; Resp 29; Pulse Ox 93% on BiPAP; ll3 06/18 22:12 Body Mass Index 39.10 (106.59 kg, 165.10 cm) sm5 MDM: 06/18 23:58 Patient medically screened. kdr 06/19 01:58 Data reviewed: vital signs, nurses notes, lab test result(s), radiologic studies. kdr Counseling: I had a detailed discussion with the patient and/or guardian regarding: the historical points, exam findings, and any diagnostic results supporting the discharge/admit diagnosis, lab results, radiology results, the need for outpatient follow up, the need for further work-up and treatment in the hospital. 06/18 22:42 Order name: ABG Arterial Blood Gas; Complete Time: 22:48 EDMS 06/18 22:48 Order name: Basic Metabolic Panel; Complete Time: 00:06 kdr 06/18 22:48 Order name: CBC with Diff; Complete Time: 00:06 kdr 06/18 22:48 Order name: Troponin HS; Complete Time: 00:06 kdr 06/18 22:52 Order name: Lactate; Complete Time: 00:06 ds4 06/18 22:48 Order name: XRAY Chest (1 view) [facility] 06/19 00:26 Order name: COVID-19/FLU A+B (Document "Date of Onset" if Symptomatic); Complete Time: tw5 01:59 06/19 04:05 Order name: Lactate Sepsis 2 HR Follow-up; Complete Time: 15:25 EDMS 06/19 05:08 Order name: NT PRO-BNP; Complete Time: 15:25 EDMS 06/19 08:13 Order name: Glucose, Ancillary Testing; Complete Time: 15:26 EDMS 06/19 16:42 Order name: Glucose, Ancillary Testing EDMS 06/19 21:15 Order name: Glucose, Ancillary Testing EDMS 06/18 22:48 Order name: EKG; Complete Time: 22:49 kdr 06/18 22:48 Order name: Cardiac monitoring; Complete Time: :48 kdr 06/18 22:48 Order name: EKG - Nurse/Tech; Complete Time: :48 kdr 06/18 22:48 Order name: IV Saline Lock; Complete Time: 22:48 kdr 06/18 22:48 Order name: Labs collected and sent; Complete Time: :48 kdr 06/18 22:48 Order name: O2 Per Protocol; Complete Time: :48 kdr 06/18 22:48 Order name: O2 Sat Monitoring; Complete Time: :48 kdr EC:43 Rate is 87 beats/min. Rhythm is regular, Sinus Rhythm with PACs, Left bundle branch kdr block. QRS [place] is Normal. MA interval is normal. QRS interval is normal. QT interval is normal. Clinical impression: NSR w/ Non-specific ST/T Changes. Administered Medications: 00:39 Drug: Lasix (furosemide) 100 mg Route: IVP; Site: right forearm; 5 01:09 Follow up: Response: No adverse reaction ll3 00:39 Drug: Ibuprofen 600 mg Route: PO; sm5 01:09 Follow up: Response: No adverse reaction ll3 00:45 Drug: XANax (alprazolam) Tablet 0.5 mg Route: PO; ll3 01:09 Follow up: Response: No adverse reaction ll3 Disposition Summary: 06/18/21 23:58 Hospitalization Ordered Hospitalization Status: Inpatient Admission kdr Provider: Jacquelyn Patricia Condition: Fair kdr Problem: an acute exacerbation kdr Symptoms: have improved kdr Bed/Room Type: Standard kdr Location: Intensive Care Unit(06/19/21 19:00) Room Assignment: 7-(06/19/21 19:00) Diagnosis - Acute on chronic systolic (congestive) heart failure kdr Forms: - Medication Reconciliation Form kdr - SBAR form kdr Signatures: Dispatcher [employer] [facility] Candice Orta RN RN Juan A Miller MD MD kdr Narcisa Schuster RN RN Avtar Coronado FNP-C [employer]-Cla1 Elias Terry RN RN 3 Anjelica Prince RN RN sm5 Sona Ching PA PA sb3 Corrections: (The following items were deleted from the chart) 00:20 06/18 23:58 Telemetry/MedSurg (Inpatient) kdr 06/19 00:20 05 23:58 kdr 06/19 19:00 00:20 BR ER HOLD [facility] 19:00 00:20 ERHOLD- mw ss
[2021-06-19] MEDS ORDERED: FUROSEMIDE 100 MG/10 ML VIAL IV ONE (00:21)
[2021-06-19] MEDS ORDERED: IBUPROFEN 200 MG TAB PO ONE (00:21)
[2021-06-19] MEDS ORDERED: IBUPROFEN 400 MG TAB ONE (00:22)
[2021-06-19] MEDS ORDERED: ALPRAZOLAM 0.5 MG TABLET ONE (00:47)
[2021-06-19 01:18] LABS: SARS-COV-2 RT PCR NEGATIVE (NEGATIVE)
[2021-06-19] MEDS ORDERED: ACETAMINOPHEN 500 MG TAB PO PRN (01:34)
--- NOTE | 2021-06-19 03:01 | P.HP ---
Certification for Inpatient Patient admitted to: Inpatient With expected LOS: >2 Midnights Patient will require the following post-hospital care: None Practitioner: I am a practitioner with admitting privileges, knowledge of patient current condition, hospital course, and medical plan of care. Services: Services provided to patient in accordance with Admission requirements found in Title 42 Section 412.3 of the Code of Federal Regulations <Sona Ching - Last Filed: 06/19/21 03:15> Patient History Date of Service: 06/19/21 Primary Care Provider: Reynaldo Reason for admission: Acute Resp Failure History of Present Illness: Patient is a 70-year-old -[place] female with IDDM, hypertension, and CHF (preserved EF) who presented to the ED with complaints of shortness of breath x3 weeks. Upon presentation to the ED, she was saturating 82% on room air. She states that she recently saw Dr. Jacobs who increased her Lasix from 40 mg twice daily to 80 mg twice daily. Edema noted up to the thighs. ABG revealed a pH of 7.29 and pCO2 47. lactic acid 2.7, BNP pending. She was given 100 mg Lasix IV and started on BiPAP. Will admit patient for further evaluation and treatment. Home medications list reviewed: Yes - Past Medical/Surgical History Diabetic: Yes -: HTN -: Migraines -: TIA -: CHF -: GERD -: diverticulitis -: DM -: Depression/anxiety -: Lf ankle sx -: Hernia repair x2 -: Cholecystectomy -: Hysterectomy Psychosocial/ Personal History: Patient lives at home with her daughter. - Family History Mother -: Heart disease - Social History Smoking Status: Never smoker Alcohol use: No CD- Drugs: No Caffeine use: Yes Place of Residence: Home <HumzaSona - Last Filed: 06/19/21 03:15> Date of Service: 06/19/21 <Jacquelyn Patricia - Last Filed: 06/19/21 18:16> Allergies sumatriptan [From Imitrex] Allergy (Intermediate, Verified 01/28/19 22:40) Unknown Home Medications: Amlodipine [Norvasc*] 1 tab PO BID 02/27/19 Chlordiazepoxide HCl [Librium] 1 cap PO TIDP PRN 02/27/19 Ciprofloxacin HCl 1 tab PO BID 02/27/19 Docusate [Colace Cap*] 1 tab PO BID 02/27/19 Fluticasone/Vilanterol [Breo Ellipta 100-25 Mcg INH] 1 puff IH DAILY 02/27/19 Gabapentin 1 tab PO BID 02/27/19 Hydralazine HCl 1 tab PO TID 02/27/19 Losartan/Hydrochlorothiazide [Losartan-Hctz 100-25 mg Tab] 1 tab PO DAILY 02/27/19 Mirtazapine 1 tab PO BEDTIME 02/27/19 Ondansetron [Zofran (Odt)*] 4 mg DT BID 02/27/19 Pantoprazole [Protonix Tab*] 1 tab PO DAILY 02/27/19 Promethazine HCl 1 tab PO TID 02/27/19 Quetiapine [Seroquel*] 1 tab PO BIDP PRN 02/27/19 levoFLOXacin [Levaquin*] 1 tab PO DAILY 02/27/19 methIMAzole [Tapazole*] 10 mg PO DAILY 02/27/19 Review of Systems Respiratory: Shortness of Breath <Sona Ching - Last Filed: 06/19/21 03:15> Physical Examination - Physical Exam General: Alert, In no apparent distress, Oriented x3 HEENT: Atraumatic, PERRLA, EOMI, Sclerae nonicteric Neck: Supple, 2+ carotid pulse no bruit, No LAD, Without JVD or thyroid abnormality Respiratory: Diminished, Expiratory wheezes Cardiovascular: Regular rate/rhythm, Normal S1 S2, Edema Gastrointestinal: Normal bowel sounds, Soft and benign, Non-distended, No te nderness Musculoskeletal: No tenderness Integumentary: No rashes Neurological: Normal speech, Normal strength at 5/5 x4 extr, Normal tone, Normal affect - Studies Laboratory Data (last 24 hrs) 06/18/21 22:40: WBC 5.9, Hgb 10.7 L, Hct 33.4 L, Plt Count 402 06/18/21 22:40: Sodium 137, Potassium 4.2, BUN 10, Creatinine 1.14, Glucose 265 H <Sona Ching - Last Filed: 06/19/21 03:15> - Studies Laboratory Data (last 24 hrs) 06/18/21 22:40: WBC 5.9, Hgb 10.7 L, Hct 33.4 L, Plt Count 402 06/18/21 22:40: Sodium 137, Potassium 4.2, BUN 10, Creatinine 1.14, Glucose 265 H <Jacquelyn Patricia - Last Filed: 06/19/21 18:16> Assessment and Plan - Problems (Diagnosis) (1) Acute respiratory failure with hypoxia and hypercapnia Current Visit: Yes Status: Acute (2) CHF (congestive heart failure) Current Visit: Yes Status: Acute Qualifiers: Heart failure type: diastolic Heart failure chronicity: acute on chronic Qualified Code(s): I50.33 - Acute on chronic diastolic (congestive) heart failure (3) Diabetes mellitus Current Visit: Yes Status: Chronic Qualifiers: Diabetes mellitus type: type 2 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 Repeat pending -Patient has history of CHF. Echo in March 2021 showed preserved EF. She does take Lasix at home. Cardiology consult -Reconcile and continue home medications -Lovenox for VTE prophylaxis Discharge Plan: Home Plan to discharge in: Greater than 2 days - Advance Directives Does patient have a Living Will: No Does patient have a Durable POA for Healthcare: No - Code Status/Comfort Care Code Status Assessed: Yes (Full) Critical Care: No Time Spent Managing Pts Care (In Minutes): 70 <Sona Ching - Last Filed: 06/19/21 03:15> Date of Service: 06/19/21 Subjective: HPI as mentioned above Physical Examination: Vitals: Afebrile vital signs are stable Physical exam: Cardiovascular: Tachycardic with no murmurs Lungs: Expiratory wheezing Abdomen: Within normal limits Neuro: Awake, alert, oriented to person place and time Assessment: 1. CHF exacerbation Plan: 1. Continue with current plan of care as mentioned above <Jacquelyn Patricia - Last Filed: 06/19/21 18:16>
[2021-06-19] MEDS ORDERED: MORPHINE 2 MG/ML SYR ONE ×2 (05:32→15:08)
[2021-06-19] MEDS: MORPHINE 2 MG/ML SYR IV PRN ×3 (05:35→22:46)
[2021-06-19] MEDS: INSULIN -REGULAR HUMAN 50 UNIT/0.5 ML ML SQ SCH ×4 (07:30→21:00)
[2021-06-19] MEDS ORDERED: ENOXAPARIN 40 MG/0.4 ML SQ ONE (08:13)
[2021-06-19] MEDS: ACETAZOLAMIDE 500 MG IV IV SCH ×2 (08:17→21:00)
[2021-06-19] MEDS: ENOXAPARIN 40 MG/0.4 ML SQ SCH (08:17)
[2021-06-19] MEDS ORDERED: FUROSEMIDE 40 MG/4 ML VIAL IV SCH (09:00)
--- NOTE | 2021-06-19 14:33 | EKG ---
Test Date: 2021-06-18 Test Time: 22:19:31 Brake Machine Operator: SALLY MEASUREMENT RESULTS: Intervals: Rate: 87 VT: 162 QRSD: 168 QT: 450 QTc: 541 [place]: P: 47 VT: 162 QRS: 53 T: 262 INTERPRETIVE STATEMENTS: Sinus rhythm with occasional premature ventricular complexes Left bundle branch block Abnormal ECG Compared to ECG 03/18/2021 10:52:28 Ventricular premature complex(es) now present Left-axis deviation no longer present Electronically Signed On 06-19-21 14:32:10 CDT by Roland Burns
[2021-06-19] MEDS ORDERED: ACETAMINOPHEN 500 MG TAB ONE (15:02)
[2021-06-19] MEDS: ONDANSETRON 4 MG/2 ML VIAL IV PRN (15:02)
[2021-06-19] MEDS ORDERED: ONDANSETRON 4 MG/2 ML VIAL ONE (15:08)
--- NOTE | 2021-06-19 16:42 | CON ---
Date of Consultation: 06/19/[address] Patricia on 06/19/2021. She was seen on 06/19/2021. Reason For Consultation: Congestive heart failure. History Of Present Illness: Ms. Ferrell is a 70-year-old black woman with history of hypertension, diabetes, bipolar disorder, TIA, COPD, atrial fibrillation, diastolic congestive heart failure, and g astroesophageal reflux disease, comes in with PND, orthopnea, pedal edema. Denied any palpitation or syncope. Denied any chest pain. Denied any unexplained nausea or vomiting or diaphoresis. She is diuresing well. She has a Cabrera and has improved since being admitted. Past Medical History: As stated above. Allergies: SHE IS ALLERGIC TO SUMATRIPTAN. Medications: Her medications at home include Protonix, Norvasc, lithium, inhalers, hydralazine, and Hyzaar. Review of Systems: Negative. Social History: Negative. Family History: Negative. Physical Examination: General: She appears to be in mild respiratory distress. Sinus rhythm. She had 95% saturation on C PAP but pO2 is 77, pCO2 47, pH of 7.29. HEENT: Negative. Neck: Supple. No bruit, lymphadenopathy, JVD, or thyromegaly. Chest: Reveals rales both bases and expiratory wheezing. Cardiac: Revealed a regular rhythm and rate with an S4 gallop. No murmurs or rubs. Abdomen: Benign. Extremities: Revealed 2+ edema. Skin: Dry and intact. Neurologic: She was nonfocal. Pulses were present distally bilaterally. Impression And Plan: 1.Ptooa-[id number] diastolic congestive heart failure. 2.Diabetes, poorly controlled. 3.History of bipolar disorder. 4.History of transient ischemic attack. 5.Chronic obstructive pulmonary disease. 6.Atrial fibrillation that has resolved. 7.History of gastroesophageal reflux disease. The patient is presently on Diamox and insulin. I think we need to continue her other medications. Echocardiogram is pending. I will continue to follow. ALEX/DAKOTAH Voice ID: [id number] Report ID: [id number]
--- NOTE | 2021-06-19 19:47 | P.CNS ---
Date of Consult: 06/19/21 Reason for Consult: MAJOR/ CKD Requesting Physician: Jacquelyn Patricia Primary Care Provider: Reynaldo Chief Complaint: Acute Resp Failure History of Present Illness: 70 yo BF HTN, CHF presented to the ER with 1-2 weeks of severe, progressive dyspnea with associated edema. Seen and examined in the ER while on Bipap. Greater than 30min patient care. Patient is a 70-year-old -[place] female with IDDM, hypertension, and CHF (preserved EF) who presented to the ED with complaints of shortness of breath x3 weeks. Upon presentation to the ED, she was saturating 82% on room air. She states that she recently saw Dr. Jacobs who increased her Lasix from 40 mg twice daily to 80 mg twice daily. Edema noted up to the thighs. ABG revealed a pH of 7.29 and pCO2 47. lactic acid 2.7, BNP pending. She was given 100 mg Lasix IV and started on BiPAP. Will admit patient for further evaluation and treatment. Allergies sumatriptan [From Imitrex] Allergy (Intermediate, Verified 01/28/19 22:40) Unknown Home medications list reviewed: Yes Home Medications: Amlodipine [Norvasc*] 1 tab PO BID 02/27/19 Chlordiazepoxide HCl [Librium] 1 cap PO TIDP PRN 02/27/19 Ciprofloxacin HCl 1 tab PO BID 02/27/19 Docusate [Colace Cap*] 1 tab PO BID 02/27/19 Fluticasone/Vilanterol [Breo Ellipta 100-25 Mcg INH] 1 puff IH DAILY 02/27/19 Gabapentin 1 tab PO BID 02/27/19 Hydralazine HCl 1 tab PO TID 02/27/19 Losartan/Hydrochlorothiazide [Losartan-Hctz 100-25 mg Tab] 1 tab PO DAILY 02/27/19 Mirtazapine 1 tab PO BEDTIME 02/27/19 Ondansetron [Zofran (Odt)*] 4 mg DT BID 02/27/19 Pantoprazole [Protonix Tab*] 1 tab PO DAILY 02/27/19 Promethazine HCl 1 tab PO TID 02/27/19 Quetiapine [Seroquel*] 1 tab PO BIDP PRN 02/27/19 levoFLOXacin [Levaquin*] 1 tab PO DAILY 02/27/19 methIMAzole [Tapazole*] 10 mg PO DAILY 02/27/19 - Past Medical/Surgical History Diabetic: Yes -: HTN -: Migraines -: TIA -: CHF -: GERD -: diverticulitis -: DM -: Depression/anxiety -: Lf ankle sx -: Hernia repair x2 -: Cholecystectomy -: Hysterectomy Psychosocial/ Personal History: Patient lives at home with her daughter. - Family History Mother Medical History: Heart disease - Social History Smoking Status: Never smoker Alcohol use: No CD- Drugs: No Caffeine use: Yes Place of Residence: Home Review of Systems 10-point ROS is otherwise unremarkable General: Weakness, Malaise Respiratory: Shortness of Breath, SOB with Excertion Cardiovascular: Edema Neurological: Weakness Physical Examination Temp Pulse Resp BP Pulse Ox 98.1 F 86 22 H 151/88 H 96 06/19/21 08:00 06/19/21 16:00 06/19/21 16:00 06/19/21 16:00 06/19/21 16:00 General: Oriented x3, Cooperative, Moderate distress HEENT: Atraumatic Neck: Supple Respiratory: Crackles/rales Cardiovascular: Regular rate/rhythm, Edema Gastrointestinal: Soft and benign, Non-distended Musculoskeletal: No clubbing, No contractures Integumentary: No rashes, No cyanosis Neurological: Normal speech Laboratory Data (last 24 hrs) 06/18/21 22:40: WBC 5.9, Hgb 10.7 L, Hct 33.4 L, Plt Count 402 06/18/21 22:40: Sodium 137, Potassium 4.2, BUN 10, Creatinine 1.14, Glucose 265 H Conclusions/Impression: MAJOR likely CRS CKD -No NSAIDs -Continue diuresis -Continue Cabrera HTN with CKD/ CHF -Continue diuresis Diastolic CHF, A/C Acute respiratory failure with hypercapnia -Continue Diamox -Start Lasix IV q6h -Start Spironolactone BID -Bipap as ordered DM II with CKD -RISS Anemia in chronic illness -Monitor H&H -Check iron level Thank you kindly for the consultation.
[2021-06-19] MEDS: FUROSEMIDE 20 MG/ 2ML VIAL IV SCH (20:00)
[2021-06-19] MEDS: SPIRONOLACTONE 25 MG TABLET PO SCH (21:00)
[2021-06-19] MEDS ORDERED: FUROSEMIDE 20 MG/ 2ML VIAL ONE (21:19)
[2021-06-19] MEDS ORDERED: WATER FOR INJ,STERILE 10 ML ONE (21:22)
[2021-06-19] MEDS ORDERED: SPIRONOLACTONE 25 MG TABLET ONE (21:25)
[2021-06-20] MEDS: FUROSEMIDE 20 MG/ 2ML VIAL IV SCH ×4 (01:28→19:25)
[2021-06-20 05:45] LABS: Hematocrit 28.4 % (36.0-45.0); Lymphocytes % 11.6 % (15.3-44.8); MPV 8.4 fL (7.6-11.3); RBC Red Blood Cell Count 3.47 M/uL (3.86-4.86)
[2021-06-20 05:48] LABS: Urine Appearance Clear (Clear); Urine Bilirubin Negative (Negative); Urine Blood 2+ (Negative); Urine Color Yellow (Yellow); Urine Glucose Negative (Negative); Urine Protein Negative (Negative)
[2021-06-20 05:51] LABS: UR PROTEIN 22.8 mg/dL (<11.9); Urine Protein/Creatinine Ratio 1.04 ratio (<0.15)
[2021-06-20 06:24] LABS: Urine Microscopic Reflex ORDER UMIC
[2021-06-20 06:27] LABS: Urine Bacteria 20-50 /HPF (<20); Urine RBC 20-50 /HPF (NONE SEEN)
[2021-06-20 06:28] LABS: Urine Mucus 1+ /HPF (NONE SEEN)
[2021-06-20 06:33] LABS: Folic Acid, (Folate) 4.2 ng/mL (3.1-17.5); Phosphorus 3.7 mg/dL (2.5-4.9); Potassium 3.9 mmol/L (3.5-5.1); Uric Acid 8.6 mg/dL (2.6-6.0)
[2021-06-20 06:43] LABS: Magnesium 1.4 mg/dL (1.8-2.4)
[2021-06-20] MEDS ORDERED: Magnesium Sulfate 2gm IVPB 2 G/50 ML BAG IV ONE (07:00)
[2021-06-20] MEDS: INSULIN -REGULAR HUMAN 50 UNIT/0.5 ML ML SQ SCH ×4 (07:30→20:28)
[2021-06-20] MEDS: ENOXAPARIN 40 MG/0.4 ML SQ SCH (09:55)
[2021-06-20] MEDS: ACETAZOLAMIDE 500 MG IV IV SCH ×2 (09:55→20:17)
[2021-06-20] MEDS: SPIRONOLACTONE 25 MG TABLET PO SCH ×2 (09:55→19:36)
[2021-06-20] MEDS: ONDANSETRON 4 MG/2 ML VIAL IV PRN ×2 (10:30→19:26)
[2021-06-20] MEDS: MORPHINE 2 MG/ML SYR IV PRN ×2 (10:30→19:26)
--- NOTE | 2021-06-20 14:45 | PN ---
Date of Progress Note: 06/20/2021 Ms. Ferrell is [address] Patricia with new onset congestive heart failure. She has hypertensio n, diabetes, history of TIA, bipolar disorder, COPD, atrial fibrillation, gastroesophageal reflux dis ease, normal heart catheterization in the past. Echocardiogram yesterday showed an ejection fraction of 41%. Her hemoglobin is 9.1. Her Mag is 1.4, that needs to be supplemented. She is on Lasix, Di amox, and Aldactone. She really should be on low-dose beta-negra instead of Norvasc. I think carv edilol would be good to continue hydralazine. Continue her lithium and her inhalers. She is saturat ing better and has improved. We will continue to follow on an as-needed basis. It may be reasonable to have her do an outpatient Lexiscan sometime down the road. ALEX/DAKOTAH Voice ID: [id number] Report ID: [id number]
--- NOTE | 2021-06-20 17:04 | P.PN ---
Date of Service: 06/20/21 Subjective Doing better; ok to transfer to the floor Physical Examination - Physical Exam General: Alert, In no apparent distress, Oriented x3 Respiratory: Diminished, Expiratory wheezes Cardiovascular: Regular rate/rhythm, Normal S1 S2, Edema Gastrointestinal: Normal bowel sounds, Soft and benign, Non-distended, No tenderness Neurological: No focal deficits Assessment and Plan - Problems (Diagnosis) (1) Acute respiratory failure with hypoxia and hypercapnia Current Visit: Yes Status: Acute (2) CHF (congestive heart failure) Current Visit: Yes Status: Acute Qualifiers: Heart failure type: diastolic Heart failure chronicity: acute on chronic Qualified Code(s): I50.33 - Acute on chronic diastolic (congestive) heart failure (3) Diabetes mellitus Current Visit: Yes Status: Chronic Qualifiers: Diabetes mellitus type: type 2 Diabetes mellitus group home 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 -Patient w/ echo in March 2021 showed preserved EF. Cardiology consult -Reconcile and continue home medications -Lovenox for VTE prophylaxis
[2021-06-20] MEDS ORDERED: CHLORDIAZEPOXIDE HCL 10 MG PO PRN (19:17)
[2021-06-20] MEDS: DOCUSATE NA 100 MG CAP PO SCH (22:38)
[2021-06-20] MEDS: AMLODIPINE 5 MG TAB PO SCH (22:38)
[2021-06-20] MEDS: QUETIAPINE 25 MG TAB PO PRN (22:39)
[2021-06-20] MEDS: MIRTAZAPINE 15 MG TAB PO SCH (22:39)
[2021-06-20] MEDS: HYDRALAZINE HCL 25 MG TABLET PO SCH (22:40)
[2021-06-20] MEDS: GABAPENTIN 100 MG CAP PO SCH (22:40)
[2021-06-21] MEDS: FUROSEMIDE 20 MG/ 2ML VIAL IV SCH ×4 (02:31→20:25)
[2021-06-21 06:00] LABS: Absolute Lymphocytes (CBC) 0.7 K/uL (0.7-4.9); Hematocrit 30.7 % (36.0-45.0); RBC Red Blood Cell Count 3.75 M/uL (3.86-4.86)
[2021-06-21 06:42] LABS: Phosphorus 4.3 mg/dL (2.5-4.9); Potassium 3.5 mmol/L (3.5-5.1)
[2021-06-21] MEDS: INSULIN -REGULAR HUMAN 50 UNIT/0.5 ML ML SQ SCH ×4 (07:30→20:32)
[2021-06-21] MEDS: DOCUSATE NA 100 MG CAP PO SCH ×2 (08:31→20:30)
[2021-06-21] MEDS: SPIRONOLACTONE 25 MG TABLET PO SCH ×2 (08:31→20:29)
[2021-06-21] MEDS: ACETAZOLAMIDE 500 MG IV IV SCH ×2 (08:31→20:31)
[2021-06-21] MEDS: ENOXAPARIN 40 MG/0.4 ML SQ SCH (08:32)
[2021-06-21] MEDS: AMLODIPINE 5 MG TAB PO SCH ×2 (08:32→20:29)
[2021-06-21] MEDS: HYDRALAZINE HCL 25 MG TABLET PO SCH ×3 (08:32→20:29)
[2021-06-21] MEDS: GABAPENTIN 100 MG CAP PO SCH ×2 (08:32→20:29)
[2021-06-21] MEDS ORDERED: POTASSIUM CL SA 10 MEQ TAB PO ONE (09:00)
[2021-06-21] MEDS ORDERED: HOME MED 1 EA UNK (Fluticasone/Vilanterol [Breo Ellipta 100-25 Mcg Inh] Blst.W.Dev) IH SCH (09:00)
[2021-06-21] MEDS: MORPHINE 2 MG/ML SYR IV PRN ×2 (09:36→17:13)
[2021-06-21] MEDS: ONDANSETRON 4 MG/2 ML VIAL IV PRN ×2 (09:37→17:13)
[2021-06-21] MEDS: MIRTAZAPINE 15 MG TAB PO SCH (20:30)
[2021-06-21] MEDS: QUETIAPINE 25 MG TAB PO PRN (21:43)
[2021-06-22] MEDS: FUROSEMIDE 20 MG/ 2ML VIAL IV SCH (01:26)
[2021-06-22] MEDS ORDERED: TEMAZEPAM 22.5 MG PO PRN (05:20)
--- NOTE | 2021-06-22 05:26 | P.PN ---
Date of Service: 06/21/21 Subjective Patient is a 70-year-old female that came to the hospital with CHF exacerbation. Patient was placed on BiPAP and put in the ICU for 24 to 48 hours. After diuresis patient's respiratory status has improved and we will transfer her to the floor yesterday. She is continuing to improve and we are checking for room her O2. Patient is working with physical therapy. Anticipate discharge tomorrow. Physical Examination - Physical Exam General: Alert, In no apparent distress, Oriented x3 Respiratory: Basilar crackles but otherwise clear Cardiovascular: Regular rate/rhythm, Normal S1 S2, Edema Gastrointestinal: Normal bowel sounds, Soft and benign, Non-distended, No tenderness Neurological: No focal deficits Assessment and Plan - Problems (Diagnosis) (1) Acute respiratory failure with hypoxia and hypercapnia Current Visit: Yes Status: Acute (2) CHF (congestive heart failure) Current Visit: Yes Status: Acute Qualifiers: Heart failure type: diastolic Heart failure chronicity: acute on chronic Qualified Code(s): I50.33 - Acute on chronic diastolic (congestive) heart failure (3) Diabetes mellitus Current Visit: Yes Status: Chronic Qualifiers: Diabetes mellitus type: type 2 Diabetes mellitus watermaster insulin use: without snf use Diabetes mellitus complication status: with kidney complications Diabetes mellitus complication detail: with chronic kidney disease Chronic kidney disease stage 3 subtype: stage 3a (GFR 45-59) (4) Hypertension Onset Date: 08/09/17 Current Visit: Yes Status: Chronic Qualifiers: Hypertension type: primary hypertension Qualified Code(s): I10 - Essential (primary) hypertension - Plan -continue O2 as tolerated -Continue diuresing -Lactic acid improved. -Patient w/ echo in March 2021 showed preserved EF. Cardiology consult -Physical therapy -BiPAP as needed -Strict blood pressure and blood sugar control -Lovenox for VTE prophylaxis
[2021-06-22] MEDS: MORPHINE 2 MG/ML SYR IV PRN ×2 (06:17→20:26)
[2021-06-22] MEDS: ONDANSETRON 4 MG/2 ML VIAL IV PRN ×2 (06:18→20:26)
[2021-06-22 06:41] LABS: Absolute Lymphocytes (CBC) 0.9 K/uL (0.7-4.9); Hematocrit 32.8 % (36.0-45.0); MPV 8.1 fL (7.6-11.3); RBC Red Blood Cell Count 4.01 M/uL (3.86-4.86)
--- NOTE | 2021-06-22 06:54 | ECHO ---
HEIGHT: 5 ft 5 in WEIGHT: 214 lb 5 oz DATE OF STUDY: 06/19/[address]: Roland Burns MD 2-DIMENSIONAL: YES M.MODE: YES DOPPLER: YES COLOR FLOW: YES TDS: PORTABLE: YES DEFINITY: BUBBLE STUDY: DIAGNOSIS: CHEST PAIN CARDIAC HISTORY: CATHERIZATION: SURGERY: PROSTHETIC VALVE: PACEMAKER: MEASUREMENTS (cm) DIASTOLIC (NORMALS) SYSTOLIC (NORMALS) IVSd 1.3 (0.6-1.2) LA Diam (1.9-4.0) LVEF 41% LVIDd 4.8 (3.5-5.7) LVIDs 3.8 (2.0-3.5) %FS 20% LVPWd 1.3 (0.6-1.2) Ao Diam 3.0 (2.0-3.7) 2 DIMENSIONAL ASSESSMENT: RIGHT ATRIUM: NORMAL LEFT ATRIUM: NORMAL RIGHT VENTRICLE: NORMAL LEFT VENTRICLE: NORMAL SIZE TRICUSPID VALVE: NORMAL MITRAL VALVE: NORMAL PULMONIC VALVE: NORMAL AORTIC VALVE: NORMAL PERICARDIAL EFFUSION: NONE AORTIC ROOT: NORMAL LEFT VENTRICULAR WALL MOTION: MILDLY REDUCED EJECTION FRACTION DOPPLER/COLOR FLOW: NORMAL COMMENTS: MILD GLOBAL HYPOKINESIS. EJECTION FRACTION 41-45%. NO EFFUSION. TECHNOLOGIST: JEANNETTE RAMIREZ
[2021-06-22] MEDS: INSULIN -REGULAR HUMAN 50 UNIT/0.5 ML ML SQ SCH ×4 (07:30→20:25)
[2021-06-22] MEDS: PANTOPRAZOLE 40MG TABLET PO SCH ×2 (08:00→09:20)
[2021-06-22] MEDS ORDERED: PROMETHAZINE 25 MG TABLET PO PRN (08:00)
[2021-06-22] MEDS: SPIRONOLACTONE 25 MG TABLET PO SCH ×2 (08:17→20:35)
[2021-06-22] MEDS: HYDRALAZINE HCL 25 MG TABLET PO SCH ×3 (08:18→20:38)
[2021-06-22] MEDS: LOSARTAN POTASSIUM 50 MG TABLET PO SCH ×2 (08:19→20:36)
[2021-06-22] MEDS: FUROSEMIDE 40 MG TABLET PO SCH (08:19)
[2021-06-22] MEDS: METOPROLOL TAR 25 MG TAB PO SCH ×2 (08:19→20:34)
[2021-06-22] MEDS: GABAPENTIN 100 MG CAP PO SCH ×3 (08:19→20:35)
[2021-06-22] MEDS: ESCITALOPRAM 20 MG TAB PO SCH (08:19)
[2021-06-22] MEDS: DOCUSATE NA 100 MG CAP PO SCH ×2 (08:19→20:34)
[2021-06-22] MEDS: ACETAZOLAMIDE 500 MG IV IV SCH ×2 (08:24→20:33)
[2021-06-22] MEDS: ENOXAPARIN 40 MG/0.4 ML SQ SCH (08:24)
--- NOTE | 2021-06-22 08:27 | P.PN ---
Subjective Date of Service: 06/22/21 Primary Care Provider: Reynaldo Chief Complaint: Acute Resp Failure Subjective: No new changes, Improving Physical Examination - Vital Signs Temperature: 97.8 F Blood Pressure: 174/91 Pulse: 97 Respirations: 18 Pulse Ox (%): 96 - Physical Exam General: Alert, Oriented x3 HEENT: Atraumatic, Normocephalic Neck: Supple Respiratory: Normal air movement Cardiovascular: Regular rate/rhythm, Normal S1 S2 Gastrointestinal: Soft and benign Assessment And Plan - Plan - Problems (Diagnosis) (1) Acute respiratory failure with hypoxia and hypercapnia Current Visit: Yes Status: Acute (2) CHF (congestive heart failure) Current Visit: Yes Status: Acute Qualifiers: Heart failure type: diastolic Heart failure chronicity: acute on chronic Qualified Code(s): I50.33 - Acute on chronic diastolic (congestive) heart failure (3) Diabetes mellitus Current Visit: Yes Status: Chronic Qualifiers: Diabetes mellitus type: type 2 Diabetes mellitus care home insulin use: without oracle reports developer use Diabetes mellitus complication status: with kidney complications Diabetes mellitus complication detail: with chronic kidney disease Chronic kidney disease stage 3 subtype: stage 3a (GFR 45-59) (4) Hypertension Onset Date: 08/09/17 Current Visit: Yes Status: Chronic Qualifiers: Hypertension type: primary hypertension Qualified Code(s): I10 - Essential (primary) hypertension - Plan Patient continues to show signs of improvement and is less short of breath. Diuretic dose to be continued as prior. She continues to have leg pain and this is concerning. Will adjust gabapentin dose to 200 mg 3 times daily as pasha renal function is much improved. She will be followed on outpatient for neuropathy associated with diabetes management. Possible discharge in next 24 hours. -Lovenox for VTE prophylaxis
[2021-06-22] MEDS: hydroCHLOROthiazide 25 MG TAB PO SCH (08:41)
[2021-06-22] MEDS: ALPRAZOLAM 0.5 MG TABLET PO SCH ×2 (08:41→22:20)
[2021-06-22] MEDS: NIFEDIPINE XL 60 MG TABLET PO SCH ×2 (08:41→20:34)
[2021-06-22] MEDS ORDERED: LOSARTAN/HCTZ 50-12.5 PO SCH (09:00)
[2021-06-22] MEDS: FLUTICASONE IH SCH (09:00)
[2021-06-22] MEDS: VILANTEROL IH SCH (09:00)
[2021-06-22] MEDS ORDERED: HOME MED 1 EA UNK (Metoprolol Tartrate [Metoprolol Tartrate] 100 MG Tablet) PO SCH (09:00)
[2021-06-22] MEDS ORDERED: SPIRONOLACTONE 25 MG TABLET PO SCH (09:00)
--- NOTE | 2021-06-22 09:50 | P.PN ---
Date of Service: 06/22/21 Vital Signs Temp Pulse Resp BP Pulse Ox 97.8 F 97 H 18 174/91 H 96 06/22/21 08:27 06/22/21 08:27 06/22/21 08:27 06/22/21 08:27 06/22/21 08:27 Medications Acetaminophen (Acetaminophen 500 Mg Tab) 500 mg PO Q4HP PRN PRN Reason: Pain scale 2-4 (Mild) Last Admin: 06/19/21 14:55 Dose: 500 mg Documented by: Acetazolamide Sodium (Acetazolamide 500 Mg Iv) 250 mg IV BID [facility] Last Admin: 06/22/21 08:24 Dose: 250 mg Documented by: Alprazolam (Alprazolam 0.5 Mg Tablet) 0.5 mg PO BID [facility] Last Admin: 06/22/21 08:41 Dose: 0.5 mg Documented by: Docusate Sodium (Docusate Na 100 Mg Cap) 100 mg PO BID [facility] Last Admin: 06/22/21 08:19 Dose: 100 mg Documented by: Doxepin HCl (Doxepin Hcl 25 Mg Cap) 75 mg PO BEDTIME [facility] Enoxaparin Sodium (Enoxaparin 40 Mg/0.4 Ml) 40 mg SQ DAILY [facility] Last Admin: 06/22/21 08:24 Dose: 40 mg Documented by: Escitalopram Oxalate (Escitalopram 20 Mg Tab) 20 mg PO DAILY [facility] Last Admin: 06/22/21 08:19 Dose: 20 mg Documented by: Furosemide (Furosemide 40 Mg Tablet) 40 mg PO DAILY [facility] Last Admin: 06/22/21 08:19 Dose: 40 mg Documented by: Gabapentin (Gabapentin 100 Mg Cap) 100 mg PO BID [facility] Last Admin: 06/22/21 08:19 Dose: 100 mg Documented by: Home Med (Fluticasone/Vilanterol [Breo Ellipta 200-25 Mcg Inh]) 1 each IH DAILY [facility] Last Admin: 06/22/21 09:00 Dose: Not Given Documented by: Home Med (Temazepam [Temazepam]) 22.5 mg PO BEDTIME PRN PRN Reason: INSOMNIA Hydralazine HCl (Hydralazine Hcl 25 Mg Tablet) 25 mg PO TID [facility] Last Admin: 06/22/21 08:18 Dose: 25 mg Documented by: Hydrochlorothiazide (Hydrochlorothiazide 25 Mg Tab) 25 mg PO DAILY [facility] Last Admin: 06/22/21 08:41 Dose: 25 mg Documented by: Insulin Human Regular (Insulin -Regular Human 50 Unit/0.5 Ml Ml) 0 unit SQ ACHS [facility]; Protocol Last Admin: 06/22/21 07:30 Dose: Not Given Documented by: Losartan Potassium (Losartan Potassium 50 Mg Tablet) 50 mg PO BID [facility] Last Admin: 06/22/21 08:19 Dose: 50 mg Documented by: Methimazole (Methimazole 10 Mg Tab) 10 mg PO DAILY [facility] Last Admin: 06/22/21 09:21 Dose: 10 mg Documented by: Metoprolol Tartrate (Metoprolol Tar 25 Mg Tab) 75 mg PO BID [facility] Last Admin: 06/22/21 08:19 Dose: 75 mg Documented by: Mirtazapine (Mirtazapine 15 Mg Tab) 15 mg PO BEDTIME [facility] Last Admin: 06/21/21 20:30 Dose: 15 mg Documented by: Morphine Sulfate (Morphine 2 Mg/Ml Syr) 2 mg IV Q6H PRN PRN Reason: Pain scale 5-7 (Moderate) Last Admin: 06/22/21 06:17 Dose: 2 mg Documented by: Nifedipine (Nifedipine Xl 60 Mg Tablet) 60 mg PO BID [facility] Last Admin: 06/22/21 08:41 Dose: 60 mg Documented by: Ondansetron HCl (Ondansetron 4 Mg/2 Ml Vial) 4 mg IV Q6HP PRN PRN Reason: NAUSEA / VOMITING Last Admin: 06/22/21 06:18 Dose: 4 mg Documented by: Pantoprazole Sodium ([facility]opraz[facility] 40mg Tablet) [facility] Last Admin: 06/22/21 09:20 Dose: 40 mg Documented by: Promethazine HCl (Promethazine 25 Mg Tablet) 12.5 mg PO TID PRN PRN Reason: NAUSEA / VOMITING Quetiapine Fumarate (Quetiapine 25 Mg Tab) 25 mg PO BIDP PRN PRN Reason: ANXIETY Last Admin: 06/21/21 21:43 Dose: 25 mg Documented by: Sodium Chloride (Flush Normal Saline 10 Ml) 10 ml IV BID [facility] Last Admin: 06/22/21 08:24 Dose: 10 ml Documented by: Spironolactone (Spironolactone 25 Mg Tablet) 25 mg PO BID [facility] Last Admin: 06/22/21 08:17 Dose: 25 mg Documented by: Assessment/ Plan: Nephrology Dyspnea improving No chest pain BL LE pain No acute events overnight Vitals, medications, blood work and imaging reviewed in the chart. General: Oriented x3, Cooperative, Moderate distress HEENT: Atraumatic Neck: Supple Respiratory: Normal respiratory effort Cardiovascular: Regular rate/rhythm, Edema Gastrointestinal: Soft and benign, Non-distended Musculoskeletal: No clubbing, No contractures Integumentary: No rashes, No cyanosis Neurological: Normal speech Laboratory Data (last 24 hrs) 06/18/21 22:40: WBC 5.9, Hgb 10.7 L, Hct 33.4 L, Plt Count 402 06/18/21 22:40: Sodium 137, Potassium 4.2, BUN 10, Creatinine 1.14, Glucose 265 H Conclusions/Impression: MAJOR likely CRS CKD -No NSAIDs -Continue diuresis -Continue Cabrera HTN with CKD/ CHF -Continue Nifedipine -Continue Metoprolol Diastolic CHF, A/C Acute respiratory failure with hypercapnia -Continue Diamox -Continue Lasix and HCTZ -Continue Spironolactone BID -Bipap prn DM II with CKD -RISS Anemia in chronic illness Iron Deficiency B12 Deficiency -Start daily IV iron -Start daily SC B12
[2021-06-22] MEDS: CYANOCOBALAMIN 1000MCG/ML INJ SQ SCH (10:39)
[2021-06-22] MEDS: SOD FERRIC GLUC COMPLX/SUCROSE 125 MG in NA CHLORIDE 0.9% 100 ML IV SCH (10:40)
--- NOTE | 2021-06-22 11:34 | RAD REPORT ---
EXAM DESCRIPTION: RAD - Chest Single View - 06/19/2021 12:10 am CLINICAL HISTORY: SOB. COMPARISON: None. TECHNIQUE: Single view AP chest radiograph(s). FINDINGS: Mild diffuse pulmonary interstitial thickening and hazy opacification with central vascula r congestion. No definite pleural effusion. No pneumothorax. Moderate cardiomegaly. No significant os seous abnormality. IMPRESSION: 1. Mild diffuse pulmonary interstitial thickening and hazy opacification with central vascular congestion. 2. Moderate cardiomegaly. Electronically signed by: Roslyn Bowen MD 06/19/2021 12:21 AM CDT Due to temporary technical issues with the PACS/Fluency reporting system, reports are being signed by the in house radiologist without review as a courtesy to ensure prompt reporting. The interpreting r adiologist is fully responsible for the content of the report.
[2021-06-22] MEDS: DOXEPIN HCL 25 MG CAP PO SCH (20:35)
[2021-06-22] MEDS: MIRTAZAPINE 15 MG TAB PO SCH (20:39)
[2021-06-22] MEDS ORDERED: WATER FOR INJ,STERILE 10 ML ONE (20:52)
[2021-06-23] MEDS: PANTOPRAZOLE 40MG TABLET PO SCH (05:36)
[2021-06-23] MEDS: INSULIN -REGULAR HUMAN 50 UNIT/0.5 ML ML SQ SCH ×4 (07:30→20:26)
[2021-06-23] MEDS: SPIRONOLACTONE 25 MG TABLET PO SCH ×2 (08:29→20:22)
[2021-06-23] MEDS: ENOXAPARIN 40 MG/0.4 ML SQ SCH (08:29)
[2021-06-23] MEDS: DOCUSATE NA 100 MG CAP PO SCH ×2 (08:30→20:23)
[2021-06-23] MEDS: NIFEDIPINE XL 60 MG TABLET PO SCH ×2 (08:30→20:24)
[2021-06-23] MEDS: ALPRAZOLAM 0.5 MG TABLET PO SCH ×2 (08:30→20:23)
[2021-06-23] MEDS: CYANOCOBALAMIN 1000MCG/ML INJ SQ SCH (08:30)
[2021-06-23] MEDS: GABAPENTIN 100 MG CAP PO SCH ×3 (08:31→20:25)
[2021-06-23] MEDS: METOPROLOL TAR 25 MG TAB PO SCH ×2 (08:31→20:23)
[2021-06-23] MEDS: FUROSEMIDE 40 MG TABLET PO SCH (08:32)
[2021-06-23] MEDS: LOSARTAN POTASSIUM 50 MG TABLET PO SCH ×2 (08:32→20:24)
[2021-06-23] MEDS: ESCITALOPRAM 20 MG TAB PO SCH (08:32)
[2021-06-23] MEDS: HYDRALAZINE HCL 25 MG TABLET PO SCH ×3 (08:32→20:22)
[2021-06-23] MEDS: hydroCHLOROthiazide 25 MG TAB PO SCH (08:32)
[2021-06-23] MEDS: FLUTICASONE IH SCH (08:33)
[2021-06-23] MEDS: VILANTEROL IH SCH (08:33)
[2021-06-23] MEDS: ACETAZOLAMIDE 500 MG IV IV SCH ×2 (08:34→20:17)
[2021-06-23] MEDS: SOD FERRIC GLUC COMPLX/SUCROSE 125 MG in NA CHLORIDE 0.9% 100 ML IV SCH (09:26)
[2021-06-23 09:38] LABS: Potassium 3.9 mmol/L (3.5-5.1)
--- NOTE | 2021-06-23 14:36 | P.PN ---
Subjective Date of Service: 06/23/21 Primary Care Provider: Reynaldo Chief Complaint: Acute Resp Failure Subjective: No new changes, Improving Physical Examination - Vital Signs Temperature: 97.1 F Blood Pressure: 128/60 Pulse: 65 Respirations: 18 Pulse Ox (%): 95 - Physical Exam General: Alert, Oriented x3 HEENT: Atraumatic, Normocephalic Neck: Supple Respiratory: Normal air movement Cardiovascular: Regular rate/rhythm, Normal S1 S2 Gastrointestinal: Soft and benign Musculoskeletal: No swelling Neurological: Normal speech Assessment And Plan - Plan - Problems (Diagnosis) (1) Acute respiratory failure with hypoxia and hypercapnia Current Visit: Yes Status: Acute (2) CHF (congestive heart failure) Current Visit: Yes Status: Acute Qualifiers: Heart failure type: diastolic Heart failure chronicity: acute on chronic Qualified Code(s): I50.33 - Acute on chronic diastolic (congestive) heart failure (3) Diabetes mellitus Current Visit: Yes Status: Chronic Qualifiers: Diabetes mellitus type: type 2 Diabetes mellitus supervisor intermediates insulin use: without supervisor intermediates use Diabetes mellitus complication status: with kidney complications Diabetes mellitus complication detail: with chronic kidney disease Chronic kidney disease stage 3 subtype: stage 3a (GFR 45-59) (4) Hypertension Onset Date: 08/09/17 Current Visit: Yes Status: Chronic Qualifiers: Hypertension type: primary hypertension Qualified Code(s): I10 - Essential (primary) hypertension - Plan Patient continues to show signs of improvement and is less short of breath. Diuretic dose to be continued as prior. Increase in creatinine noted. we will follow in am. She continues to have leg pain and this is concerning. Will continue gabapentin dose at 200 mg 3 times daily for now. She will be followed on outpatient for neuropathy associated with diabetes management. Possible discharge home with home health and -Renally dose lovenox for VTE prophylaxis
[2021-06-23] MEDS: MORPHINE 2 MG/ML SYR IV PRN (15:51)
[2021-06-23] MEDS ORDERED: WATER FOR INJ,STERILE 10 ML ONE (19:50)
--- NOTE | 2021-06-23 20:01 | P.PN ---
Date of Service: 06/23/21 Vital Signs Temp Pulse Resp BP Pulse Ox 98.2 F 72 17 137/61 94 06/23/21 19:42 06/23/21 19:42 06/23/21 19:42 06/23/21 19:42 06/23/21 19:42 Medications Acetaminophen (Acetaminophen 500 Mg Tab) 500 mg PO Q4HP PRN PRN Reason: Pain scale 2-4 (Mild) Last Admin: 06/19/21 14:55 Dose: 500 mg Documented by: Acetazolamide Sodium (Acetazolamide 500 Mg Iv) 250 mg IV BID [facility] Last Admin: 06/23/21 08:34 Dose: 250 mg Documented by: Alprazolam (Alprazolam 0.5 Mg Tablet) 0.5 mg PO BID [facility] Last Admin: 06/23/21 08:30 Dose: 0.5 mg Documented by: Cyanocobalamin (Cyanocobalamin 1000mcg/Ml Inj) 1,000 mcg SQ DAILY [facility] Stop: 06/28/21 09:01 Last Admin: 06/23/21 08:30 Dose: 1,000 mcg Documented by: Docusate Sodium (Docusate Na 100 Mg Cap) 100 mg PO BID [facility] Last Admin: 06/23/21 08:30 Dose: 100 mg Documented by: Doxepin HCl (Doxepin Hcl 25 Mg Cap) 75 mg PO BEDTIME [facility] Last Admin: 06/22/21 20:35 Dose: 75 mg Documented by: Enoxaparin Sodium (Enoxaparin 30 Mg/0.3 Ml) 30 mg SQ DAILY [facility] Escitalopram Oxalate (Escitalopram 20 Mg Tab) 20 mg PO DAILY [facility] Last Admin: 06/23/21 08:32 Dose: 20 mg Documented by: Furosemide (Furosemide 40 Mg Tablet) 40 mg PO DAILY [facility] Last Admin: 06/23/21 08:32 Dose: 40 mg Documented by: Gabapentin (Gabapentin 100 Mg Cap) 200 mg PO TID [facility] Last Admin: 06/23/21 14:17 Dose: 200 mg Documented by: Home Med (Fluticasone/Vilanterol [Breo Ellipta 200-25 Mcg Inh]) 1 each IH DAILY [facility] Last Admin: 06/23/21 08:33 Dose: Not Given Documented by: Home Med (Temazepam [Temazepam]) 22.5 mg PO BEDTIME PRN PRN Reason: INSOMNIA Hydralazine HCl (Hydralazine Hcl 25 Mg Tablet) 25 mg PO TID [facility] Last Admin: 06/23/21 14:17 Dose: 25 mg Documented by: Hydrochlorothiazide (Hydrochlorothiazide 25 Mg Tab) 25 mg PO DAILY [facility] Last Admin: 06/23/21 08:32 Dose: 25 mg Documented by: Ferric Sodium Gluconate Complex 125 mg/ Sodium Chloride 110 mls @ 100 mls/hr IV DAILY [facility] Stop: 06/29/21 10:05 Last Admin: 06/23/21 09:26 Dose: 110 mls Documented by: Insulin Human Regular (Insulin -Regular Human 50 Unit/0.5 Ml Ml) 0 unit SQ ACHS [facility]; Protocol Last Admin: 06/23/21 16:25 Dose: Not Given Documented by: Losartan Potassium (Losartan Potassium 50 Mg Tablet) 50 mg PO BID [facility] Last Admin: 06/23/21 08:32 Dose: 50 mg Documented by: Methimazole (Methimazole 10 Mg Tab) 10 mg PO DAILY [facility] Last Admin: 06/23/21 08:29 Dose: 10 mg Documented by: Metoprolol Tartrate (Metoprolol Tar 25 Mg Tab) 75 mg PO BID [facility] Last Admin: 06/23/21 08:31 Dose: 75 mg Documented by: Mirtazapine (Mirtazapine 15 Mg Tab) 15 mg PO BEDTIME [facility] Last Admin: 06/22/21 20:39 Dose: 15 mg Documented by: Morphine Sulfate (Morphine 2 Mg/Ml Syr) 2 mg IV Q6H PRN PRN Reason: Pain scale 5-7 (Moderate) Last Admin: 06/23/21 15:51 Dose: 2 mg Documented by: Nifedipine (Nifedipine Xl 60 Mg Tablet) 60 mg PO BID [facility] Last Admin: 06/23/21 08:30 Dose: 60 mg Documented by: Ondansetron HCl (Ondansetron 4 Mg/2 Ml Vial) 4 mg IV Q6HP PRN PRN Reason: NAUSEA / VOMITING Last Admin: 06/22/21 20:26 Dose: 4 mg Documented by: Pantoprazole Sodium (Pantoprazole 40mg Tablet) [facility] Protocol Last Admin: 06/23/21 05:36 Dose: 40 mg Documented by: Promethazine HCl (Promethazine 25 Mg Tablet) 12.5 mg PO TID PRN PRN Reason: NAUSEA / VOMITING Quetiapine Fumarate (Quetiapine 25 Mg Tab) 25 mg PO BIDP PRN PRN Reason: ANXIETY Last Admin: 06/21/21 21:43 Dose: 25 mg Documented by: Sodium Chloride (Flush Normal Saline 10 Ml) 10 ml IV BID [facility] Last Admin: 06/23/21 08:47 Dose: 10 ml Documented by: Spironolactone (Spironolactone 25 Mg Tablet) 25 mg PO BID [facility] Last Admin: 06/23/21 08:29 Dose: 25 mg Documented by: Assessment/ Plan: Nephrology Dyspnea improving No chest pain RLE greater than LLE pain No acute events overnight Vitals, medications, blood work and imaging reviewed in the chart. General: Oriented x3, Cooperative, NAD, Obese HEENT: Atraumatic Neck: Supple Respiratory: Normal respiratory effort Cardiovascular: Regular rate/rhythm, No Edema Gastrointestinal: Soft and benign, Non-distended Musculoskeletal: No clubbing, No contractures Integumentary: No rashes, No cyanosis Neurological: Normal speech Laboratory Data (last 24 hrs) 06/18/21 22:40: WBC 5.9, Hgb 10.7 L, Hct 33.4 L, Plt Count 402 06/18/21 22:40: Sodium 137, Potassium 4.2, BUN 10, Creatinine 1.14, Glucose 265 H Conclusions/Impression: MAJOR likely due to hypovolemia CKD -No NSAIDs -Continue diuresis; discontinue HCTZ -Continue Cabrera Hyponatremia -Discontinue HCTZ HTN with CKD/ CHF -Continue Nifedipine -Continue Metoprolol Diastolic CHF, A/C Acute respiratory failure with hypercapnia -Continue Diamox -Continue Lasix -Continue Spironolactone BID -Bipap prn DM II with CKD -RISS Anemia in chronic illness Iron Deficiency B12 Deficiency -Continue daily IV iron -Continue daily SC B12
[2021-06-23] MEDS: DOXEPIN HCL 25 MG CAP PO SCH (20:24)
[2021-06-23] MEDS: MIRTAZAPINE 15 MG TAB PO SCH (20:24)
[2021-06-23] MEDS: MAGNESIUM OXIDE 400 MG TAB PO SCH (20:25)
[2021-06-24] MEDS: MORPHINE 2 MG/ML SYR IV PRN ×2 (04:22→20:44)
[2021-06-24] MEDS: ONDANSETRON 4 MG/2 ML VIAL IV PRN (04:22)
[2021-06-24 06:07] LABS: Magnesium 2.2 mg/dL (1.8-2.4); Phosphorus 3.8 mg/dL (2.5-4.9); Potassium 3.8 mmol/L (3.5-5.1); Uric Acid 11.2 mg/dL (2.6-6.0)
[2021-06-24] MEDS: PANTOPRAZOLE 40MG TABLET PO SCH (06:29)
[2021-06-24 07:19] VITALS: BMI 34.4
[2021-06-24] MEDS: INSULIN -REGULAR HUMAN 50 UNIT/0.5 ML ML SQ SCH ×4 (07:30→21:27)
[2021-06-24] MEDS: FLUTICASONE IH SCH (09:00)
[2021-06-24] MEDS ORDERED: POTASSIUM CL SA 10 MEQ TAB PO ONE (09:00)
[2021-06-24] MEDS: VILANTEROL IH SCH (09:00)
[2021-06-24] MEDS: NIFEDIPINE XL 60 MG TABLET PO SCH ×2 (09:05→20:39)
[2021-06-24] MEDS: ESCITALOPRAM 20 MG TAB PO SCH (09:06)
[2021-06-24] MEDS: ACETAZOLAMIDE 500 MG IV IV SCH ×2 (09:06→20:41)
[2021-06-24] MEDS: METOPROLOL TAR 25 MG TAB PO SCH ×2 (09:06→20:40)
[2021-06-24] MEDS: FUROSEMIDE 40 MG TABLET PO SCH (09:07)
[2021-06-24] MEDS: LOSARTAN POTASSIUM 50 MG TABLET PO SCH ×2 (09:07→20:40)
[2021-06-24] MEDS: DOCUSATE NA 100 MG CAP PO SCH ×2 (09:07→20:40)
[2021-06-24] MEDS: GABAPENTIN 100 MG CAP PO SCH ×3 (09:07→20:39)
[2021-06-24] MEDS: ALPRAZOLAM 0.5 MG TABLET PO SCH ×2 (09:08→20:37)
[2021-06-24] MEDS: SPIRONOLACTONE 25 MG TABLET PO SCH ×2 (09:08→20:38)
[2021-06-24] MEDS: ENOXAPARIN 30 MG/0.3 ML SQ SCH (09:08)
[2021-06-24] MEDS: HYDRALAZINE HCL 25 MG TABLET PO SCH ×3 (09:09→20:39)
[2021-06-24] MEDS: CYANOCOBALAMIN 1000MCG/ML INJ SQ SCH (09:10)
[2021-06-24] MEDS: SOD FERRIC GLUC COMPLX/SUCROSE 125 MG in NA CHLORIDE 0.9% 100 ML IV SCH (09:20)
--- NOTE | 2021-06-24 13:58 | P.PN ---
Subjective Date of Service: 06/24/21 Primary Care Provider: Reynaldo Chief Complaint: Acute Resp Failure Subjective: No new changes, Improving Physical Examination - Vital Signs Temperature: 97.1 F Blood Pressure: 124/69 Pulse: 55 Respirations: 16 Pulse Ox (%): 97 - Physical Exam General: Alert, Oriented x3 HEENT: Atraumatic, Normocephalic Neck: Supple Respiratory: Normal air movement Cardiovascular: Regular rate/rhythm, Normal S1 S2 Gastrointestinal: Soft and benign Musculoskeletal: No swelling Neurological: Normal speech Assessment And Plan - Plan - Problems (Diagnosis) (1) Acute respiratory failure with hypoxia and hypercapnia Current Visit: Yes Status: Acute (2) CHF (congestive heart failure) Current Visit: Yes Status: Acute Qualifiers: Heart failure type: diastolic Heart failure chronicity: acute on chronic Qualified Code(s): I50.33 - Acute on chronic diastolic (congestive) heart failure (3) Diabetes mellitus Current Visit: Yes Status: Chronic Qualifiers: Diabetes mellitus type: type 2 Diabetes mellitus salvage determiner insulin use: without salvage determiner use Diabetes mellitus complication status: with kidney complications Diabetes mellitus complication detail: with chronic kidney disease Chronic kidney disease stage 3 subtype: stage 3a (GFR 45-59) (4) Hypertension Onset Date: 08/09/17 Current Visit: Yes Status: Chronic Qualifiers: Hypertension type: primary hypertension Qualified Code(s): I10 - Essential (primary) hypertension - Plan Patient continues to show signs of improvement and is less short of breath. Diuretic dose to be continued as prior. Creatinine is slightly better at 1.63 today. She continues to have leg pain and this is concerning. Will continue gabapentin dose at 200 mg 3 times daily for now. She will be followed on outpatient for neuropathy associated with diabetes management. Plans for discharge to [facility] in [facility]. -Renally dose lovenox for VTE prophylaxis
[2021-06-24] MEDS ORDERED: BISACODYL 10 MG RECTAL SUPP PR PRN (14:08)
[2021-06-24] MEDS: POLYETHYL GLY 3350 17 GM/DOSE PO PRN (14:31)
[2021-06-24] MEDS: DOXEPIN HCL 25 MG CAP PO SCH (20:38)
[2021-06-24] MEDS: MIRTAZAPINE 15 MG TAB PO SCH (20:38)
[2021-06-24] MEDS: MAGNESIUM OXIDE 400 MG TAB PO SCH (20:41)
--- NOTE | 2021-06-24 21:50 | P.PN ---
Date of Service: 06/24/21 Vital Signs Temp Pulse Resp BP Pulse Ox 97.3 F 70 18 145/63 H 95 06/24/21 16:00 06/24/21 20:40 06/24/21 21:14 06/24/21 20:40 06/24/21 21:14 Medications Acetaminophen (Acetaminophen 500 Mg Tab) 500 mg PO Q4HP PRN PRN Reason: Pain scale 2-4 (Mild) Last Admin: 06/19/21 14:55 Dose: 500 mg Documented by: Acetazolamide Sodium (Acetazolamide 500 Mg Iv) 250 mg IV BID [facility] Last Admin: 06/24/21 20:41 Dose: 250 mg Documented by: Alprazolam (Alprazolam 0.5 Mg Tablet) 0.5 mg PO BID [facility] Last Admin: 06/24/21 20:37 Dose: 0.5 mg Documented by: Bisacodyl (Bisacodyl 10 Mg Rectal Supp) 10 mg [place] DAILY PRN PRN Reason: CONSTIPATION Cyanocobalamin (Cyanocobalamin 1000mcg/Ml Inj) 1,000 mcg SQ DAILY [facility] Stop: 06/28/21 09:01 Last Admin: 06/24/21 09:10 Dose: 1,000 mcg Documented by: Docusate Sodium (Docusate Na 100 Mg Cap) 100 mg PO BID [facility] Last Admin: 06/24/21 20:40 Dose: 100 mg Documented by: Doxepin HCl (Doxepin Hcl 25 Mg Cap) 75 mg PO BEDTIME [facility] Last Admin: 06/24/21 20:38 Dose: 75 mg Documented by: Enoxaparin Sodium (Enoxaparin 30 Mg/0.3 Ml) 30 mg SQ DAILY [facility] Last Admin: 06/24/21 09:08 Dose: 30 mg Documented by: Escitalopram Oxalate (Escitalopram 20 Mg Tab) 20 mg PO DAILY [facility] Last Admin: 06/24/21 09:06 Dose: 20 mg Documented by: Furosemide (Furosemide 40 Mg Tablet) 40 mg PO DAILY [facility] Last Admin: 06/24/21 09:07 Dose: 40 mg Documented by: Gabapentin (Gabapentin 100 Mg Cap) 200 mg PO TID [facility] Last Admin: 06/24/21 20:39 Dose: 200 mg Documented by: Home Med (Fluticasone/Vilanterol [Breo Ellipta 200-25 Mcg Inh]) 1 each IH DAILY [facility] Last Admin: 06/24/21 09:00 Dose: Not Given Documented by: Home Med (Temazepam [Temazepam]) 22.5 mg PO BEDTIME PRN PRN Reason: INSOMNIA Hydralazine HCl (Hydralazine Hcl 25 Mg Tablet) 25 mg PO TID [facility] Last Admin: 06/24/21 20:39 Dose: 25 mg Documented by: Ferric Sodium Gluconate Complex 125 mg/ Sodium Chloride 110 mls @ 100 mls/hr IV DAILY [facility] Stop: 06/29/21 10:05 Last Admin: 06/24/21 09:20 Dose: 110 mls Documented by: Insulin Human Regular (Insulin -Regular Human 50 Unit/0.5 Ml Ml) 0 unit SQ ACHS [facility]; Protocol Last Admin: 06/24/21 21:27 Dose: 2 unit Documented by: Losartan Potassium (Losartan Potassium 50 Mg Tablet) 50 mg PO BID [facility] Last Admin: 06/24/21 20:40 Dose: 50 mg Documented by: Magnesium Oxide (Magnesium Oxide 400 Mg Tab) 400 mg PO BEDTIME [facility] Last Admin: 06/24/21 20:41 Dose: 400 mg Documented by: Methimazole (Methimazole 10 Mg Tab) 10 mg PO DAILY [facility] Last Admin: 06/24/21 09:06 Dose: 10 mg Documented by: Metoprolol Tartrate (Metoprolol Tar 25 Mg Tab) 75 mg PO BID [facility] Last Admin: 06/24/21 20:40 Dose: 75 mg Documented by: Mirtazapine (Mirtazapine 15 Mg Tab) 15 mg PO BEDTIME [facility] Last Admin: 06/24/21 20:38 Dose: 15 mg Documented by: Morphine Sulfate (Morphine 2 Mg/Ml Syr) 2 mg IV Q6H PRN PRN Reason: Pain scale 5-7 (Moderate) Last Admin: 06/24/21 20:44 Dose: 2 mg Documented by: Multivitamins/Minerals (Multivitamin Tab) 1 tab PO DAILY [facility] Nifedipine (Nifedipine Xl 60 Mg Tablet) 60 mg PO BID [facility] Last Admin: 06/24/21 20:39 Dose: 60 mg Documented by: Ondansetron HCl (Ondansetron 4 Mg/2 Ml Vial) 4 mg IV Q6HP PRN PRN Reason: NAUSEA / VOMITING Last Admin: 06/24/21 04:22 Dose: 4 mg Documented by: Pantoprazole Sodium (Pantoprazole 40mg Tablet) [facility]ILYAC [facility]; Protocol Last Admin: 06/24/21 06:29 Dose: 40 mg Documented by: Polyethylene Glycol (Polyethyl Gly 3350 17 Gm/Dose) 17 gm PO DAILY PRN PRN Reason: CONSTIPATION Last Admin: 06/24/21 14:31 Dose: 17 gm Documented by: Promethazine HCl (Promethazine 25 Mg Tablet) 12.5 mg PO TID PRN PRN Reason: NAUSEA / VOMITING Quetiapine Fumarate (Quetiapine 25 Mg Tab) 25 mg PO BIDP PRN PRN Reason: ANXIETY Last Admin: 06/21/21 21:43 Dose: 25 mg Documented by: Sodium Chloride (Flush Normal Saline 10 Ml) 10 ml IV BID [facility] Last Admin: 06/24/21 20:44 Dose: 10 ml Documented by: Spironolactone (Spironolactone 25 Mg Tablet) 25 mg PO BID [facility] Last Admin: 06/24/21 20:38 Dose: 25 mg Documented by: Assessment/ Plan: Nephrology Dyspnea improving No chest pain Good appetite RLE greater than LLE pain Weakness. She wants to work with PT today. No acute events overnight Vitals, medications, blood work and imaging reviewed in the chart. General: Oriented x3, Cooperative, NAD, Obese HEENT: Atraumatic Neck: Supple Respiratory: Normal respiratory effort Cardiovascular: Regular rate/rhythm, No Edema Gastrointestinal: Soft and benign, Non-distended Musculoskeletal: No clubbing, No contractures Integumentary: No rashes, No cyanosis Neurological: Normal speech Laboratory Data (last 24 hrs) 06/18/21 22:40: WBC 5.9, Hgb 10.7 L, Hct 33.4 L, Plt Count 402 06/18/21 22:40: Sodium 137, Potassium 4.2, BUN 10, Creatinine 1.14, Glucose 265 H Conclusions/Impression: MAJOR likely due to hypovolemia CKD -No NSAIDs -Continue diuresis -Continue purewick Hyponatremia -Encourage nutrition HTN with CKD/ CHF -Continue Nifedipine -Continue Metoprolol Diastolic CHF, A/C Acute respiratory failure with hypercapnia -Continue Diamox -Continue Lasix -Continue Spironolactone BID -Bipap prn DM II with CKD -RISS Anemia in chronic illness Iron Deficiency B12 Deficiency -Continue daily IV iron -Continue daily SC B12
[2021-06-25 04:13] LABS: Potassium 4.3 mmol/L (3.5-5.1)
[2021-06-25] MEDS: PANTOPRAZOLE 40MG TABLET PO SCH (06:01)
[2021-06-25] MEDS: POLYETHYL GLY 3350 17 GM/DOSE PO PRN (06:01)
[2021-06-25] MEDS: INSULIN -REGULAR HUMAN 50 UNIT/0.5 ML ML SQ SCH ×4 (07:30→20:54)
[2021-06-25] MEDS: HYDRALAZINE HCL 25 MG TABLET PO SCH ×3 (08:44→20:55)
[2021-06-25] MEDS: ENOXAPARIN 30 MG/0.3 ML SQ SCH (08:44)
[2021-06-25] MEDS: MULTIVITAMIN TAB PO SCH (08:45)
[2021-06-25] MEDS: ESCITALOPRAM 20 MG TAB PO SCH (08:45)
[2021-06-25] MEDS: LOSARTAN POTASSIUM 50 MG TABLET PO SCH ×2 (08:45→20:56)
[2021-06-25] MEDS: FUROSEMIDE 40 MG TABLET PO SCH (08:45)
[2021-06-25] MEDS: ALPRAZOLAM 0.5 MG TABLET PO SCH ×2 (08:45→20:54)
[2021-06-25] MEDS: CYANOCOBALAMIN 1000MCG/ML INJ SQ SCH (08:45)
[2021-06-25] MEDS: GABAPENTIN 100 MG CAP PO SCH ×3 (08:46→20:54)
[2021-06-25] MEDS: SPIRONOLACTONE 25 MG TABLET PO SCH ×2 (08:46→20:53)
[2021-06-25] MEDS: METOPROLOL TAR 25 MG TAB PO SCH ×2 (08:46→20:52)
[2021-06-25] MEDS: DOCUSATE NA 100 MG CAP PO SCH ×2 (08:46→20:52)
[2021-06-25] MEDS: VILANTEROL IH SCH (08:47)
[2021-06-25] MEDS: NIFEDIPINE XL 60 MG TABLET PO SCH ×2 (08:47→20:52)
[2021-06-25] MEDS: FLUTICASONE IH SCH (08:47)
[2021-06-25] MEDS: ACETAZOLAMIDE 500 MG IV IV SCH ×2 (08:47→20:55)
[2021-06-25] MEDS: SOD FERRIC GLUC COMPLX/SUCROSE 125 MG in NA CHLORIDE 0.9% 100 ML IV SCH (09:18)
--- NOTE | 2021-06-25 17:45 | P.PN ---
Subjective Date of Service: 06/25/21 Primary Care Provider: Reynaldo Chief Complaint: Acute Resp Failure Subjective: No new changes Physical Examination - Vital Signs Temperature: 97.0 F Blood Pressure: 119/61 Pulse: 58 Respirations: 18 Pulse Ox (%): 100 - Physical Exam General: Alert, Oriented x3 HEENT: Atraumatic, Normocephalic Neck: Supple Respiratory: Normal air movement Cardiovascular: Regular rate/rhythm, Normal S1 S2 Gastrointestinal: Soft and benign Musculoskeletal: No swelling Assessment And Plan - Plan - Problems (Diagnosis) (1) Acute respiratory failure with hypoxia and hypercapnia Current Visit: Yes Status: Acute (2) CHF (congestive heart failure) Current Visit: Yes Status: Acute Qualifiers: Heart failure type: diastolic Heart failure chronicity: acute on chronic Qualified Code(s): I50.33 - Acute on chronic diastolic (congestive) heart failure (3) Diabetes mellitus Current Visit: Yes Status: Chronic Qualifiers: Diabetes mellitus type: type 2 Diabetes mellitus prison insulin use: without exterminator use Diabetes mellitus complication status: with kidney complications Diabetes mellitus complication detail: with chronic kidney disease Chronic kidney disease stage 3 subtype: stage 3a (GFR 45-59) (4) Hypertension Onset Date: 08/09/17 Current Visit: Yes Status: Chronic Qualifiers: Hypertension type: primary hypertension Qualified Code(s): I10 - Essential (primary) hypertension - Plan Patient continues to show signs of improvement and is less short of breath. Diuretic dose to be continued as prior. Creatinine is slightly better at 1.83 on last check. She continues to have leg pain and this is concerning. Will continue gabapentin dose at 200 mg 3 times daily for now. She will be followed on outpatient for neuropathy associated with diabetes management. Plans for discharge to [facility]-way facility in [facility]. -Renally dose lovenox for VTE prophylaxis
[2021-06-25] MEDS: DOXEPIN HCL 25 MG CAP PO SCH (20:53)
[2021-06-25] MEDS: MAGNESIUM OXIDE 400 MG TAB PO SCH (20:55)
[2021-06-25] MEDS: MIRTAZAPINE 15 MG TAB PO SCH (20:55)
--- NOTE | 2021-06-25 21:19 | P.PN ---
Date of Service: 06/25/21 Vital Signs Temp Pulse Resp BP Pulse Ox 97.0 F 65 18 137/70 100 06/25/21 17:45 06/25/21 20:53 06/25/21 17:45 06/25/21 20:53 06/25/21 17:45 Medications Acetaminophen (Acetaminophen 500 Mg Tab) 500 mg PO Q4HP PRN PRN Reason: Pain scale 2-4 (Mild) Last Admin: 06/19/21 14:55 Dose: 500 mg Documented by: Acetazolamide Sodium (Acetazolamide 500 Mg Iv) 250 mg IV BID [facility] Last Admin: 06/25/21 20:55 Dose: 250 mg Documented by: Alprazolam (Alprazolam 0.5 Mg Tablet) 0.5 mg PO BID [facility] Last Admin: 06/25/21 20:54 Dose: 0.5 mg Documented by: Bisacodyl (Bisacodyl 10 Mg Rectal Supp) 10 mg IN DAILY PRN PRN Reason: CONSTIPATION Cyanocobalamin (Cyanocobalamin 1000mcg/Ml Inj) 1,000 mcg SQ DAILY [facility] Stop: 06/28/21 09:01 Last Admin: 06/25/21 08:45 Dose: 1,000 mcg Documented by: Docusate Sodium (Docusate Na 100 Mg Cap) 100 mg PO BID [facility] Last Admin: 06/25/21 20:52 Dose: 100 mg Documented by: Doxepin HCl (Doxepin Hcl 25 Mg Cap) 75 mg PO BEDTIME [facility] Last Admin: 06/25/21 20:53 Dose: 75 mg Documented by: Enoxaparin Sodium (Enoxaparin 30 Mg/0.3 Ml) 30 mg SQ DAILY [facility] Last Admin: 06/25/21 08:44 Dose: 30 mg Documented by: Escitalopram Oxalate (Escitalopram 20 Mg Tab) 20 mg PO DAILY [facility] Last Admin: 06/25/21 08:45 Dose: 20 mg Documented by: Furosemide (Furosemide 40 Mg Tablet) 40 mg PO DAILY [facility] Last Admin: 06/25/21 08:45 Dose: 40 mg Documented by: Gabapentin (Gabapentin 100 Mg Cap) 200 mg PO TID [facility] Last Admin: 06/25/21 20:54 Dose: 200 mg Documented by: Home Med (Fluticasone/Vilanterol [Breo Ellipta 200-25 Mcg Inh]) 1 each IH DAILY [facility] Last Admin: 06/25/21 08:47 Dose: Not Given Documented by: Home Med (Temazepam [Temazepam]) 22.5 mg PO BEDTIME PRN PRN Reason: INSOMNIA Hydralazine HCl (Hydralazine Hcl 25 Mg Tablet) 25 mg PO TID [facility] Last Admin: 06/25/21 20:55 Dose: 25 mg Documented by: Ferric Sodium Gluconate Complex 125 mg/ Sodium Chloride 110 mls @ 100 mls/hr IV DAILY [facility] Stop: 06/29/21 10:05 Last Admin: 06/25/21 09:18 Dose: 110 mls Documented by: Insulin Human Regular (Insulin -Regular Human 50 Unit/0.5 Ml Ml) 0 unit SQ ACHS [facility]; Protocol Last Admin: 06/25/21 20:54 Dose: Not Given Documented by: Losartan Potassium (Losartan Potassium 50 Mg Tablet) 50 mg PO BID [facility] Last Admin: 06/25/21 20:56 Dose: 50 mg Documented by: Magnesium Oxide (Magnesium Oxide 400 Mg Tab) 400 mg PO BEDTIME [facility] Last Admin: 06/25/21 20:55 Dose: 400 mg Documented by: Methimazole (Methimazole 10 Mg Tab) 10 mg PO DAILY [facility] Last Admin: 06/25/21 08:45 Dose: 10 mg Documented by: Metoprolol Tartrate (Metoprolol Tar 25 Mg Tab) 75 mg PO BID [facility] Last Admin: 06/25/21 20:52 Dose: 75 mg Documented by: Mirtazapine (Mirtazapine 15 Mg Tab) 15 mg PO BEDTIME [facility] Last Admin: 06/25/21 20:55 Dose: 15 mg Documented by: Morphine Sulfate (Morphine 2 Mg/Ml Syr) 2 mg IV Q6H PRN PRN Reason: Pain scale 5-7 (Moderate) Last Admin: 06/24/21 20:44 Dose: 2 mg Documented by: Multivitamins/Minerals (Multivitamin Tab) 1 tab PO DAILY [facility] Last Admin: 06/25/21 08:45 Dose: 1 tab Documented by: Nifedipine (Nifedipine Xl 60 Mg Tablet) 60 mg PO BID [facility] Last Admin: 06/25/21 20:52 Dose: 60 mg Documented by: Ondansetron HCl (Ondansetron 4 Mg/2 Ml Vial) 4 mg IV Q6HP PRN PRN Reason: NAUSEA / VOMITING Last Admin: 06/24/21 04:22 Dose: 4 mg Documented by: Pantoprazole Sodium (Pantoprazole 40mg Tablet) 40 mg PO DAILYAC [facility]; Protocol Last Admin: 06/25/21 06:01 Dose: 40 mg Documented by: Polyethylene Glycol (Polyethyl Gly 3350 17 Gm/Dose) 17 gm PO DAILY PRN PRN Reason: CONSTIPATION Last Admin: 06/25/21 06:01 Dose: 17 gm Documented by: Promethazine HCl (Promethazine 25 Mg Tablet) 12.5 mg PO TID PRN PRN Reason: NAUSEA / VOMITING Quetiapine Fumarate (Quetiapine 25 Mg Tab) 25 mg PO BIDP PRN PRN Reason: ANXIETY Last Admin: 06/21/21 21:43 Dose: 25 mg Documented by: Sodium Chloride (Flush Normal Saline 10 Ml) 10 ml IV BID [facility] Last Admin: 06/25/21 20:55 Dose: 10 ml Documented by: Spironolactone (Spironolactone 25 Mg Tablet) 25 mg PO BID [facility] Last Admin: 06/25/21 20:53 Dose: 25 mg Documented by: Assessment/ Plan: Nephrology No dyspnea No chest pain Weakness No acute events overnight Vitals, medications, blood work and imaging reviewed in the chart. General: Oriented x3, Cooperative, NAD, Obese HEENT: Atraumatic Neck: Supple Respiratory: Normal respiratory effort Cardiovascular: Regular rate/rhythm, No Edema Gastrointestinal: Soft and benign, Non-distended Musculoskeletal: No clubbing, No contractures Integumentary: No rashes, No cyanosis Neurological: Normal speech Laboratory Data (last 24 hrs) 06/18/21 22:40: WBC 5.9, Hgb 10.7 L, Hct 33.4 L, Plt Count 402 06/18/21 22:40: Sodium 137, Potassium 4.2, BUN 10, Creatinine 1.14, Glucose 265 H Conclusions/Impression: MAJOR likely due to hypovolemia CKD -No NSAIDs -Continue diuresis -Continue purewick Hyponatremia -Encourage nutrition HTN with CKD/ CHF -Continue Nifedipine -Continue Metoprolol Diastolic CHF, A/C Acute respiratory failure with hypercapnia -Continue Diamox -Continue Lasix -Continue Spironolactone BID -Bipap prn DM II with CKD -RISS Anemia in chronic illness Iron Deficiency B12 Deficiency -Continue daily IV iron -Continue daily SC B12
[2021-06-26] MEDS: MORPHINE 2 MG/ML SYR IV PRN (06:11)
[2021-06-26] MEDS: PANTOPRAZOLE 40MG TABLET PO SCH (06:11)
[2021-06-26 06:46] LABS: Urine Bilirubin Negative (Negative); Urine Blood Negative (Negative); Urine Color Yellow (Yellow); Urine Glucose Negative (Negative); Urine Microscopic Reflex ORDER UMIC; Urine Protein Negative (Negative); Urine Specific Gravity 1.015 (1.005-1.030); Urine Urobilinogen 0.2 mg/dL (0.2-1.0); Urine pH 5.5 (5.0-7.0)
[2021-06-26 06:50] LABS: UR PROTEIN 16.1 mg/dL (<11.9); Urine Protein/Creatinine Ratio 0.22 ratio (<0.15)
[2021-06-26 07:16] LABS: Urine Bacteria LOADED /HPF (<20); Urine RBC <5 /HPF (NONE SEEN)
[2021-06-26] MEDS: INSULIN -REGULAR HUMAN 50 UNIT/0.5 ML ML SQ SCH ×2 (07:30→11:30)
[2021-06-26 07:40] LABS: Urine Appearance SL CLOUDY (Clear)
[2021-06-26 08:59] VITALS: O2SAT 94
[2021-06-26] MEDS: ACETAZOLAMIDE 500 MG IV IV SCH (09:00)
[2021-06-26] MEDS: FLUTICASONE IH SCH (09:00)
[2021-06-26] MEDS: HYDRALAZINE HCL 25 MG TABLET PO SCH (09:00)
[2021-06-26] MEDS: LOSARTAN POTASSIUM 50 MG TABLET PO SCH (09:00)
[2021-06-26] MEDS: VILANTEROL IH SCH (09:00)
[2021-06-26] MEDS: MULTIVITAMIN TAB PO SCH (09:31)
[2021-06-26] MEDS: DOCUSATE NA 100 MG CAP PO SCH (09:33)
[2021-06-26] MEDS: NIFEDIPINE XL 60 MG TABLET PO SCH (09:33)
[2021-06-26] MEDS: GABAPENTIN 100 MG CAP PO SCH (09:34)
[2021-06-26] MEDS: FUROSEMIDE 40 MG TABLET PO SCH (09:34)
[2021-06-26] MEDS: ALPRAZOLAM 0.5 MG TABLET PO SCH (09:34)
[2021-06-26] MEDS: METOPROLOL TAR 25 MG TAB PO SCH (09:35)
[2021-06-26] MEDS: SPIRONOLACTONE 25 MG TABLET PO SCH (09:36)
[2021-06-26] MEDS: CYANOCOBALAMIN 1000MCG/ML INJ SQ SCH (09:37)
[2021-06-26] MEDS: ESCITALOPRAM 20 MG TAB PO SCH (09:39)
[2021-06-26] MEDS: ENOXAPARIN 30 MG/0.3 ML SQ SCH (09:40)
[2021-06-26] MEDS ORDERED: WATER FOR INJ,STERILE 10 ML ONE (10:34)
[2021-06-26] MEDS: SOD FERRIC GLUC COMPLX/SUCROSE 125 MG in NA CHLORIDE 0.9% 100 ML IV SCH (11:02)
[2021-06-26 11:41] LABS: Albumin 2.8 g/dL (3.4-5.0); Bilirubin Total 0.2 mg/dL (0.2-1.0); Magnesium 2.4 mg/dL (1.8-2.4); Phosphorus 3.5 mg/dL (2.5-4.9); Potassium 3.6 mmol/L (3.5-5.1); Protein, Total 7.7 g/dL (6.4-8.2); Uric Acid 10.7 mg/dL (2.6-6.0)
[2021-06-26 11:51] LABS: Absolute Lymphocytes (CBC) 1.1 K/uL (0.7-4.9); Hematocrit 34.3 % (36.0-45.0); Lymphocytes % 16.9 % (15.3-44.8); MPV 7.7 fL (7.6-11.3); RBC Red Blood Cell Count 4.18 M/uL (3.86-4.86)
--- NOTE | 2021-06-26 12:32 | P.DS ---
Admission Date: 06/19/21 Discharge Date: 06/26/21 Primary Care Provider: Reynaldo Disposition: DC HOME/HOME HEALTH CARE Discharge Condition: GOOD Reason for Admission: Acute Resp Failure Brief History of Present Illness: Patient is a 70-year-old -[place] female with IDDM, hypertension, and CHF (preserved EF) who presented to the ED with complaints of shortness of breath x3 weeks. Upon presentation to the ED, she was saturating 82% on room air. She states that she recently saw Dr. Jacobs who increased her Lasix from 40 mg twice daily to 80 mg twice daily. Edema noted up to the thighs. ABG revealed a pH of 7.29 and pCO2 47. lactic acid 2.7, BNP pending. She was given 100 mg Lasix IV and started on BiPAP. Will admit patient for further evaluation and treatment. Hospital Course: Patient was admitted to inpatient care with aggressive diuresis on IV Lasix and addition of spironolactone dose for potassium protection. Nephrology was following patient not ready. Inpatient admission. She diuresed well with significant resolution of anasarca and pedal edema and she was also weaned off oxygen. She developed deconditioning for which she had PT evaluation and pat ient did not agree to go for [facility]dc facility placement. She wanted on discharge with home health and we obliged patient's request. She was deemed stable for discharge today with oral Lasix doses and spironolactone doses. He will she will follow-up with nephrology and primary care doctor posthospital discharge and also cardiology. Vital Signs/Physical Exam: Temp Pulse Resp BP Pulse Ox 97.5 F 75 18 138/75 98 06/26/21 08:00 06/26/21 09:36 06/26/21 08:00 06/26/21 09:36 06/26/21 08:00 General: Alert, Oriented x3 HEENT: Atraumatic, Normocephalic Neck: Supple Respiratory: Normal air movement Cardiovascular: Regular rate/rhythm, Normal S1 S2 Gastrointestinal: Soft and benign Musculoskeletal: No swelling Neurological: Normal speech, Normal strength at 5/5 x4 extr Laboratory Data at Discharge: WBC 6.5 K/uL (4.3-10.9) 06/26/21 11:00 Hgb 10.8 g/dL (12.0-15.0) L 06/26/21 11:00 Hct 34.3 % (36.0-45.0) L 06/26/21 11:00 Plt Count 383 K/uL (152-406) 06/26/21 11:00 Sodium 136 mmol/L (136-145) 06/26/21 11:00 Potassium 3.6 mmol/L (3.5-5.1) 06/26/21 11:00 BUN 53 mg/dL (7-18) H 06/26/21 11:00 Creatinine 1.54 mg/dL (0.55-1.3) H 06/26/21 11:00 Glucose 229 mg/dL (74-106) H 06/26/21 11:00 Uric Acid 10.7 mg/dL (2.6-6.0) H 06/26/21 11:00 Phosphorus 3.5 mg/dL (2.5-4.9) 06/26/21 11:00 Magnesium 2.4 mg/dL (1.8-2.4) 06/26/21 11:00 Total Bilirubin 0.2 mg/dL (0.2-1.0) 06/26/21 11:00 AST 11 U/L (15-37) L 06/26/21 11:00 ALT 12 U/L (12-78) 06/26/21 11:00 Alkaline Phosphatase 101 U/L (45-117) 06/26/21 11:00 Home Medications: Albuterol Inhaler [Ventolin Inhaler*] 2 puff IH Q6H PRN 06/21/21 Alprazolam [Xanax] 0.5 mg PO BID 06/21/21 Doxepin HCl 75 mg PO BEDTIME 06/21/21 Escitalopram [Lexapro*] 20 mg PO DAILY 06/21/21 Fluticasone/Vilanterol [Breo Ellipta 200-25 Mcg INH] 1 each IH DAILY 06/21/21 Furosemide [Lasix*] 40 mg PO DAILY 06/21/21 Losartan Potassium [Cozaar*] 50 mg PO BID 06/21/21 Metoprolol Tartrate 100 mg PO BID 06/21/21 Nifedipine [Nifedipine ER] 60 mg PO BID 06/21/21 Spironolactone 50 mg PO DAILY 06/21/21 Temazepam 22.5 mg PO BEDTIME PRN 06/21/21 Gabapentin [Neurontin*] 200 mg PO TID 30 Days #90 cap 06/26/21 New Medications: Gabapentin [Neurontin*] 200 mg PO TID 30 Days #90 cap Physician Discharge Instructions: PROBLEM: Acute renal failure, CHF GOAL: Clear understanding of disease process INSTRUCTIONS: Ok to discharge home Follow up with Primary Care Provider in 1-2 weeks Follow up with Dr. Jacobs in 2 weeks Take new medication as prescribed Contact physician or return to ER for any complications or concerns Call [phone] for any questions regarding hospital stay Diet: Regular Activity: As tolerated [facility] Services Needed: Home Health Name of Company: [employer] Date or Referral: 06/23/21 IMMUNIZATION Influenza Vaccine Indicated: Influenza Vaccine Given: Date Given: Pneumonia Vaccine Indicated: No Pneumonia Vaccine Given: Date Given: Followup: Juan José Jacobs DO [Primary Care Provider] -
[2021-06-26 12:53] VITALS: BP 129/61; TEMP 96.8
[2021-06-26] MEDS ORDERED: GABAPENTIN 300 MG CAP PO SCH (14:01)
[2021-06-26] MEDS ORDERED: LACTULOSE 20 GM/30 ML UCUP PO ONE (14:01)
--- NOTE | 2021-06-26 14:03 | P.PN ---
Date of Service: 06/26/21 Vital Signs Temp Pulse Resp BP Pulse Ox 96.8 F 55 14 129/61 98 06/26/21 12:00 06/26/21 12:00 06/26/21 12:00 06/26/21 12:00 06/26/21 12:00 Medications Acarbose (Acarbose 50 Mg Tab) 50 mg PO BIDWM [facility] Acetaminophen (Acetaminophen 500 Mg Tab) 500 mg PO Q4HP PRN PRN Reason: Pain scale 2-4 (Mild) Last Admin: 06/19/21 14:55 Dose: 500 mg Documented by: Acetazolamide Sodium (Acetazolamide 500 Mg Iv) 250 mg IV BID [facility] Last Admin: 06/26/21 09:00 Dose: 250 mg Documented by: Alprazolam (Alprazolam 0.5 Mg Tablet) 0.5 mg PO BID [facility] Last Admin: 06/26/21 09:34 Dose: 0.5 mg Documented by: Bisacodyl (Bisacodyl 10 Mg Rectal Supp) [address] DAILY PRN PRN Reason: CONSTIPATION Cyanocobalamin (Cyanocobalamin 1000mcg/Ml Inj) 1,000 mcg SQ DAILY [facility] Stop: 06/28/21 09:01 Last Admin: 06/26/21 09:37 Dose: 1,000 mcg Documented by: Docusate Sodium (Docusate Na 100 Mg Cap) 100 mg PO BID [facility] Last Admin: 06/26/21 09:33 Dose: 100 mg Documented by: Doxepin HCl (Doxepin Hcl 25 Mg Cap) 75 mg PO BEDTIME [facility] Last Admin: 06/25/21 20:53 Dose: 75 mg Documented by: Enoxaparin Sodium (Enoxaparin 30 Mg/0.3 Ml) 30 mg SQ DAILY [facility] Last Admin: 06/26/21 09:40 Dose: 30 mg Documented by: Escitalopram Oxalate (Escitalopram 20 Mg Tab) 20 mg PO DAILY [facility] Last Admin: 06/26/21 09:39 Dose: 20 mg Documented by: Furosemide (Furosemide 40 Mg Tablet) 40 mg PO DAILY [facility] Last Admin: 06/26/21 09:34 Dose: 40 mg Documented by: Gabapentin (Gabapentin 100 Mg Cap) 300 mg PO TID [facility] Home Med (Fluticasone/Vilanterol [Breo Ellipta 200-25 Mcg Inh]) 1 each IH DAILY [facility] Last Admin: 06/26/21 09:00 Dose: Not Given Documented by: Home Med (Temazepam [Temazepam]) 22.5 mg PO BEDTIME PRN PRN Reason: INSOMNIA Hydralazine HCl (Hydralazine Hcl 25 Mg Tablet) 25 mg PO TID [facility] Last Admin: 06/26/21 09:00 Dose: 25 mg Documented by: Ferric Sodium Gluconate Complex 125 mg/ Sodium Chloride 110 mls @ 100 mls/hr IV DAILY [facility] Stop: 06/29/21 10:05 Last Admin: 06/26/21 11:02 Dose: 110 mls Documented by: Insulin Human Regular (Insulin -Regular Human 50 Unit/0.5 Ml Ml) 0 unit SQ ACHS [facility]; Protocol Last Admin: 06/26/21 07:30 Dose: Not Given Documented by: Lactulose (Lactulose 20 Gm/30 Ml Ucup) 20 gm PO 1X ONE Stop: 06/26/21 14:02 Losartan Potassium (Losartan Potassium 50 Mg Tablet) 50 mg PO BID [facility] Last Admin: 06/26/21 09:00 Dose: 50 mg Documented by: Methimazole (Methimazole 10 Mg Tab) 10 mg PO DAILY [facility] Last Admin: 06/26/21 12:17 Dose: 10 mg Documented by: Metoprolol Tartrate (Metoprolol Tar 25 Mg Tab) 75 mg PO BID [facility] Last Admin: 06/26/21 09:35 Dose: 75 mg Documented by: Mirtazapine (Mirtazapine 15 Mg Tab) 15 mg PO BEDTIME [facility] Last Admin: 06/25/21 20:55 Dose: 15 mg Documented by: Morphine Sulfate (Morphine 2 Mg/Ml Syr) 2 mg IV Q6H PRN PRN Reason: Pain scale 5-7 (Moderate) Last Admin: 06/26/21 06:11 Dose: 2 mg Documented by: Multivitamins/Minerals (Multivitamin Tab) 1 tab PO DAILY [facility] Last Admin: 06/26/21 09:31 Dose: 1 tab Documented by: Nifedipine (Nifedipine Xl 60 Mg Tablet) 60 mg PO BID [facility] Last Admin: 06/26/21 09:33 Dose: 60 mg Documented by: Ondansetron HCl (Ondansetron 4 Mg/2 Ml Vial) 4 mg IV Q6HP PRN PRN Reason: NAUSEA / VOMITING Last Admin: 06/24/21 04:22 Dose: 4 mg Documented by: Pantoprazole Sodium (Pantoprazole 40mg Tablet) 40 mg PO DAILYAC [facility]; Protocol Last Admin: 06/26/21 06:11 Dose: 40 mg Documented by: Polyethylene Glycol (Polyethyl Gly 3350 17 Gm/Dose) 17 gm PO DAILY PRN PRN Reason: CONSTIPATION Last Admin: 06/25/21 06:01 Dose: 17 gm Documented by: Promethazine HCl (Promethazine 25 Mg Tablet) 12.5 mg PO TID PRN PRN Reason: NAUSEA / VOMITING Quetiapine Fumarate (Quetiapine 25 Mg Tab) 25 mg PO BIDP PRN PRN Reason: ANXIETY Last Admin: 06/21/21 21:43 Dose: 25 mg Documented by: Sodium Chloride (Flush Normal Saline 10 Ml) 10 ml IV BID [facility] Last Admin: 06/26/21 09:00 Dose: 10 ml Documented by: Spironolactone (Spironolactone 25 Mg Tablet) 25 mg PO BID [facility] Last Admin: 06/26/21 09:36 Dose: 25 mg Documented by: Assessment/ Plan: Nephrology No dyspnea No chest pain Weakness improving Constipation Requesting an increase in gabapentin No acute events overnight Vitals, medications, blood work and imaging reviewed in the chart. General: Oriented x3, Cooperative, NAD, Obese HEENT: Atraumatic Neck: Supple Respiratory: Normal respiratory effort Cardiovascular: Regular rate/rhythm, No Edema Gastrointestinal: Soft and benign, Non-distended Musculoskeletal: No clubbing, No contractures Integumentary: No rashes, No cyanosis Neurological: Normal speech Laboratory Data (last 24 hrs) 06/18/21 22:40: WBC 5.9, Hgb 10.7 L, Hct 33.4 L, Plt Count 402 06/18/21 22:40: Sodium 137, Potassium 4.2, BUN 10, Creatinine 1.14, Glucose 265 H Conclusions/Impression: MAJOR likely due to hypovolemia CKD -No NSAIDs -Continue diuresis Hyponatremia -Encourage nutrition HTN with CKD/ CHF -Continue Nifedipine -Continue Metoprolol Diastolic CHF, A/C Acute respiratory failure with hypercapnia -Continue Diamox -Continue Lasix -Continue Spironolactone BID -Bipap prn DM II with CKD -RISS -Start Acarbose Anemia in chronic illness Iron Deficiency B12 Deficiency -Continue daily IV iron -Continue daily SC B12 Slow transit constipation -Lactulose X1 -Start Acarbose
[2021-06-26] MEDS: POLYETHYL GLY 3350 17 GM/DOSE PO PRN (14:20)
--- NOTE | 2021-06-26 15:19 | RAD REPORT ---
EXAM DESCRIPTION: RAD - Abdomen 1 View (KUB) - 06/26/2021 3:03 pm CLINICAL HISTORY: eval of suspected constipation. Pain COMPARISON: ABDOMEN 1 VIEW KUB dated 05/01/2014 FINDINGS: The bowel gas pattern is non-obstructive. No evidence of free air or pneumatosis. No suspi cious calcifications. Cholecystectomy. No significant bony findings. A large amount of stool is present in the colon. IMPRESSION: Significant constipation.
[2021-06-26] MEDS ORDERED: ACARBOSE 50 MG TAB PO SCH (17:00)
== END 2021-06-26 16:10 | disposition home health service (06) | DRG 291 ==
LOC: ER 22:06 → ERHOLD 06-19 00:53 → 3RD-ICU 06-19 20:15 → 2ND 06-20 22:20
PROVIDERS: ADMIT Hospitalist; ATTEND Hospitalist
PROC: 5A09457 Assistance with Respiratory Ventilation, 24-96 Consecutive Hours, Continuous Positive Airway Pressure (ICD-10-PCS; principal; 2021-06-19)
DX: I13.0 Hypertensive heart and chronic kidney disease with heart failure and stage 1 through stage 4 chronic kidney disease, or unspecified chronic kidney disease (principal); J96.02 Acute respiratory failure with hypercapnia; I50.33 Acute on chronic diastolic (congestive) heart failure; J96.01 Acute respiratory failure with hypoxia; T83.518A Infection and inflammatory reaction due to other urinary catheter, initial encounter; N39.0 Urinary tract infection, site not specified; N17.9 Acute kidney failure, unspecified; E87.1 Hypo-osmolality and hyponatremia; N18.31 Chronic kidney disease, stage 3a; E11.22 Type 2 diabetes mellitus with diabetic chronic kidney disease; B96.20 Unspecified Escherichia coli [E. coli] as the cause of diseases classified elsewhere; D50.9 Iron deficiency anemia, unspecified; K59.01 Slow transit constipation; F31.9 Bipolar disorder, unspecified; K21.9 Gastro-esophageal reflux disease without esophagitis; J44.9 Chronic obstructive pulmonary disease, unspecified; Z86.73 Personal history of transient ischemic attack (TIA), and cerebral infarction without residual deficits; Z20.822 Contact with and (suspected) exposure to COVID-19
CPT/HCPCS: 0240U; 36415; 71045; 74018; 80048; 80053; 81003; 81015; 82570; 82607; 82746; 82805; 82947; 83540; 83605; 83735; 83880; 84100; 84132; 84156; 84300; 84466; 84484; 84550; 85025; 87077; 87086; 87088; 87186; 93005; 93306; 94660; 94760; 96374; 97110; 97116; 97161; 97530; 99285; J1120; J1650; J1815; J1940; J2270; J2405; J2916; J3420; J3475

== ENCOUNTER 2021-08-15 08:16 | Inpatient (IN) | payer OTHER ==
[2021-08-15 09:18] LABS: Absolute Lymphocytes (CBC) 0.9 K/uL (0.7-4.9); Hematocrit 30.9 % (36.0-45.0); Lymphocytes % 14.7 % (15.3-44.8); MCV 82.7 fL (80-100); MPV 8.1 fL (7.6-11.3); RBC Red Blood Cell Count 3.74 M/uL (3.86-4.86)
--- NOTE | 2021-08-15 09:25 | RAD REPORT ---
EXAM DESCRIPTION: CT - Head Brain Wo Cont - 08/15/2021 9:14 am CLINICAL HISTORY: Headache COMPARISON: Head Brain Wo Cont dated 03/17/2021; Head Brain Wo Cont dated 03/07/2021 TECHNIQUE: All CT scans are performed using dose optimization technique as appropriate and may inclu de automated exposure control or mA/KV adjustment according to patient size. FINDINGS: No intracranial hemorrhage, hydrocephalus or extra-axial fluid collection.No areas of brai n edema or evidence of midline shift. Mild chronic small vessel ischemic changes. Remote left cerebel lar hemisphere infarct. Mucous retention cysts in the maxillary sinuses. The calvarium is intact. IMPRESSION: No acute intracranial abnormality.
[2021-08-15 09:27] LABS: Protime INR 1.13
[2021-08-15] MEDS ORDERED: MORPHINE 4 MG/ML SYR ONE (09:35)
[2021-08-15] MEDS ORDERED: ALBUTEROL 2.5 MG/3 ML NEB SOL ONE ×2 (09:36)
[2021-08-15] MEDS ORDERED: FUROSEMIDE 40 MG/4 ML VIAL ONE (09:36)
[2021-08-15] MEDS ORDERED: ONDANSETRON 4 MG/2 ML VIAL ONE (09:36)
[2021-08-15] MEDS ORDERED: IPRATROPIUM BROM 0.5MG/2.5ML ONE (09:37)
[2021-08-15 09:41] LABS: ALT/SGPT 30 U/L (12-78); AST/SGOT 25 U/L (15-37); Albumin 2.7 g/dL (3.4-5.0); Alkaline Phosphatase 107 U/L (45-117); BUN Blood Urea Nitrogen 28 mg/dL (7-18); Bicarbonate 25 mmol/L (21-32); Bilirubin Total 0.2 mg/dL (0.2-1.0); Glomerular Filtration Rate 52 ml/min (=/>90); Glucose Level 252 mg/dL (74-106); Magnesium 2.1 mg/dL (1.8-2.4); NT PRO-BNP 3181 pg/mL (<125); Potassium 4.6 mmol/L (3.5-5.1); Sodium Level 135 mmol/L (136-145); Troponin High Sensitivity 17.4 pg/mL (<58.9)
[2021-08-15 09:56] LABS: Bilirubin Direct < 0.1 mg/dL (0-0.2)
[2021-08-15 10:24] LABS: Urine Blood Negative (Negative); Urine Glucose Negative (Negative); Urine Protein 1+ (Negative); Urine pH 5.5 (5.0-7.0)
--- NOTE | 2021-08-15 12:34 | RAD REPORT ---
EXAM DESCRIPTION: RAD - Chest Single View - 08/15/2021 12:00 pm CLINICAL HISTORY: SOB COMPARISON: Abdomen 1 View (KUB) dated 06/26/2021; Chest Single View dated 06/18/2021; Chest Pa And Lat (2 Views) dated 03/18/2021; Chest Single View dated 02/26/2019 FINDINGS: Lines: None. Lungs: Widespread pulmonary opacities are present bilaterally. Pleural: No significant pleural effusions or pneumothorax. Cardiac: Cardiomegaly . Bones: No acute fractures. Other: IMPRESSION: Widespread bilateral pulmonary opacities most likely representing pulmonary edema. Pneum onia less likely.
--- NOTE | 2021-08-15 12:46 | ER ---
Nurse's Notes [facility] Name: Blanka Ferrell Age: 70 yrs Sex: Female : 1950 Arrival Date: 08/15/2021 Time: 08:20 Bed 19 Private MD: Diagnosis: Bradycardia, unspecified;Acute on chronic combined systolic (congestive) and diastolic (congestive) heart failure;Hypoxia Presentation: 08/15 08:20 Chief complaint: EMS states: Pt c/o SOB and headache, also reports chest pain w/ ph exhalation, lungs CTA w/ some upper airway congestion noted, Spo2 96% RA, A\T\A tx given x 1, other VSS, hx CHF. Coronavirus screen: Vaccine status: Patient reports receiving the 2nd dose of the covid vaccine. Ebola Screen: No symptoms or risks identified at this time. Initial Sepsis Screen: Does the patient meet any 2 criteria? No. Patient's initial sepsis screen is negative. Does the patient have a suspected source of infection? No. Patient's initial sepsis screen is negative. Risk Assessment: Do you want to hurt yourself or someone else? Patient reports no desire to harm self or others. Onset of symptoms was August 15, 2021. 08:20 Method Of Arrival: EMS: [facility] ph 08:20 Acuity: THALIA 3 ph Triage Assessment: 08:25 General: Appears in no apparent distress. obese, Behavior is calm, cooperative, ph appropriate for age, Denies fever. Pain: Complains of pain in chest Pain does not radiate. Neuro: Level of Consciousness is awake, alert, obeys commands, Oriented to person, place, time, situation, Reports headache frontal area. Cardiovascular: Reports chest pain, shortness of breath, Capillary refill < 3 seconds in bilateral fingers Patient's skin is warm and dry. Respiratory: Reports shortness of breath at rest Onset: The symptoms/episode began/occurred this morning, the patient has mild shortness of breath. GI: No signs and/or symptoms were reported involving the gastrointestinal system. : No signs and/or symptoms were reported regarding the genitourinary system. Derm: Skin is intact, Skin is pink, warm \T\ dry. Musculoskeletal: Circulation, motion, and sensation intact. Range of motion: intact in all extremities. Historical: - Allergies: 08:24 Imitrex; ph - Home Meds: 11:24 duloxetine 60 mg oral CDRS 1 cap once daily [Active]; metoprolol tartrate 100 mg Oral ph tab 2 tabs 3 times per day [Active]; gabapentin 300 mg oral cap 3 times per day [Active]; chlorthalidone 25 mg Oral tab 1 tab once daily [Active]; trazodone 50 mg Oral tab 1 tab once daily [Active]; spironolactone 50 mg Oral tab 1 tab 2 times per day [Active]; amoxicillin-pot clavulanate 875-125 mg Oral tab 1 tab every 12 hours [Active]; doxepin 100 mg Oral cap 1 cap once daily [Active]; furosemide 40 mg Oral tab 1 tab once daily [Active]; alprazolam 0.5 mg Oral tab 1 tab twice a day [Active]; doxazosin 2 mg oral tab 1 tab twice a day [Active]; escitalopram oxalate 20 mg oral tab 1 tab once daily [Active]; - PMHx: 08:24 Anxiety; Congestive heart failure; Diabetes - IDDM; Hypertension; Migraines; Thyroid ph problem; TIA; - PSHx: 08:24 section; Cholecystectomy; hysterectomy; ph - Immunization history:: Adult Immunizations up to date. - Social history:: Smoking status: Patient denies any tobacco usage or history of. Screenin:25 Abuse screen: Denies threats or abuse. Denies injuries from another. Nutritional ph screening: No deficits noted. Tuberculosis screening: No symptoms or risk factors identified. Fall Risk None identified. Assessment: 09:14 General: SEE TRIAGE ASSESSMENT. ph 10:00 Reassessment: Patient appears in no apparent distress at this time. Patient and/or ph family updated on plan of care and expected duration. Pain level reassessed. Pt drowsy, BP stable but HR noted to below at 39 bpm, checked medications and pt takes metoprolol, ERP notified of low HR. 10:59 Reassessment: Patient appears in no apparent distress at this time. Patient and/or ph family updated on plan of care and expected duration. Pain level reassessed. Pt asleep w/ equal and unlabored respirations, awakens easily to tactile stimuli, HR remains low at 43 bpm, called pharmacy to verify metoprolol dose, staff reported that her previous dose was 100 mg BID and was recently increased to 200 mg TID, states that she picked up new prescription on 08/10. 13:39 Reassessment: 1st attempt to call report, advised the bed had not been assigned to a j9 nurse and to give them a few minutes and call back. Vital Signs: 08:20 BP 132 / 119; Pulse 48; Resp 18; Temp 97.3; Pulse Ox 94% on R/A; ph 09:14 Pulse Ox 88% on R/A; ph 10:00 BP 101 / 58; Pulse 40; Resp 14; Pulse Ox 98% on 2 lpm NC; ph 10:29 BP 109 / 82; Pulse 44; Resp 16; Pulse Ox 97% on 2 lpm NC; ph 11:00 BP 107 / 72; Pulse 41; Resp 14; Pulse Ox 95% on 2 lpm NC; ph 12:00 BP 115 / 71; Pulse 44; Resp 16; Pulse Ox 96% on R/A; jg9 13:30 BP 125 / 90; Pulse 45; Resp 16 S; Pulse Ox 99% ; jg9 Vitals: 10:29 Cardiac Rhythm Assessment Sinus mt. ph ED Course: 08:20 Patient arrived in ED. ph 08:23 Triage completed. ph 08:24 Arm band placed on Patient placed in an exam room. ph 08:25 Jairo Dave NP is PHCP. pm1 08:25 Juan A Miller MD is Attending Physician. pm1 08:25 Patient has correct armband on for positive identification. Bed in low position. Call ph light in reach. Side rails up X2. Client placed on continuous cardiac and pulse oximetry monitoring. NIBP monitoring applied. Door closed. Noise minimized. Warm blanket given. 08:54 Barbara Schultz, RN is Primary Nurse. ph 08:55 Initial lab(s) drawn, by mi, sent to lab. EKG done, by ED staff, reviewed by Jairo Dave NP COVID swab sent to lab. Flu and/or RSV swab sent to lab. Missed attempt(s): 22 gauge in right antecubital area. Bleeding controlled, band aid applied, catheter tip intact. Inserted saline lock: 22 gauge in right hand, using aseptic technique. Blood collected. 09:16 Head Brain Wo Cont In Process Unspecified. EDMS 09:27 XRAY Chest (1 view) In Process Unspecified. EDMS 10:20 No provider procedures requiring assistance completed. Straight cath inserted, using ph sterile technique, 16 Fr. Returned kaylen urine. Patient tolerated well. Patient admitted, IV remains in place. 11:42 Appears to be sleeping. jg9 12:29 Appears to be sleeping. jg9 12:46 Rm Deras MD is Hospitalizing Provider. pm1 Administered Medications: 09:45 Drug: Albuterol - atroVENT (ipratropium) (3:1) (2.5 mg - 0.5 mg) 3 ml Route: Nebulizer; ph 11:20 Follow up: Response: No adverse reaction ph 09:48 Drug: Zofran (Ondansetron) 4 mg Route: IVP; Site: right hand; ph 11:20 Follow up: Response: No adverse reaction ph 09:50 Drug: morphine 4 mg Route: IVP; Infused Over: 4 mins; Site: right hand; ph 11:19 Follow up: Response: No adverse reaction; RASS: Drowsy (-1) ph 10:28 Drug: Lasix (furosemide) 40 mg Route: IVP; Site: right hand; ph 11:20 Follow up: Response: No adverse reaction ph Medication: 08:25 VIS not applicable for this client. ph Outcome: 12:46 Decision to Hospitalize by Provider. pm1 14:40 Patient left the ED. ph Signatures: Dispatcher [employer] EDMS Barbara Schultz RN RN ph Jairo Dave, [facility] PHARMACEUTICAL PHYSICIAN pm1 Bailey Bowman RN RN jg9 Corrections: (The following items were deleted from the chart) 11:15 10:59 Reassessment: Patient appears in no apparent distress at this time. Patient ph and/or family updated on plan of care and expected duration. Pain level reassessed. Pt asleep w/ equal and unlabored respirations, HR remains low at 43 bpm, called pharmacy to verify metoprolol dose, staff reported that her previous dose was 100 mg BID and was recently increased to 200 mg TID, states that she picked up new prescription on 08/10 ph
--- NOTE | 2021-08-15 12:46 | EDPHYS ---
Physician Documentation [facility] Name: Blanka Ferrell Age: 70 yrs Sex: Female : 1950 Arrival Date: 08/15/2021 Time: 08:20 Bed 19 Private MD: ED Physician Juan A Miller HPI: 08/15 08:39 This 70 yrs old Black Female presents to ER via EMS with complaints of Breathing pm1 Difficulty. 08:39 The patient has shortness of breath at rest. pm1 08:39 Onset: The symptoms/episode began/occurred 2 day(s) ago. Duration: The symptoms are pm1 continuous, and are steadily getting worse. The patient's shortness of breath is aggravated by exertion, is alleviated by nothing. Associated signs and symptoms: Pertinent positives: chest pain, non-productive cough, Headache, Pertinent negatives: fever, nausea, vomiting. Severity of symptoms: in the emergency department the symptoms are worse. The patient has experienced similar episodes in the past, a few times, today's symptoms are similar, to previous CHF exacerbation . The patient has not recently seen a physician, the patient's primary care provider is Dr. Jacobs. Historical: - Allergies: 08:24 Imitrex; ph - Home Meds: 11:24 duloxetine 60 mg oral CDRS 1 cap once daily [Active]; metoprolol tartrate 100 mg Oral ph tab 2 tabs 3 times per day [Active]; gabapentin 300 mg oral cap 3 times per day [Active]; chlorthalidone 25 mg Oral tab 1 tab once daily [Active]; trazodone 50 mg Oral tab 1 tab once daily [Active]; spironolactone 50 mg Oral tab 1 tab 2 times per day [Active]; amoxicillin-pot clavulanate 875-125 mg Oral tab 1 tab every 12 hours [Active]; doxepin 100 mg Oral cap 1 cap once daily [Active]; furosemide 40 mg Oral tab 1 tab once daily [Active]; alprazolam 0.5 mg Oral tab 1 tab twice a day [Active]; doxazosin 2 mg oral tab 1 tab twice a day [Active]; escitalopram oxalate 20 mg oral tab 1 tab once daily [Active]; - PMHx: 08:24 Anxiety; Congestive heart failure; Diabetes - IDDM; Hypertension; Migraines; Thyroid ph problem; TIA; - PSHx: 08:24 section; Cholecystectomy; hysterectomy; ph - Immunization history:: Adult Immunizations up to date. - Social history:: Smoking status: Patient denies any tobacco usage or history of. ROS: 08:39 Constitutional: Negative for fever, chills, and weight loss. pm1 08:39 Abdomen/GI: Negative for abdominal pain, nausea, vomiting, diarrhea, and constipation, Back: Negative for injury and pain, MS/Extremity: Negative for injury and deformity, Skin: Negative for injury, rash, and discoloration. 08:39 Cardiovascular: Positive for chest pain, edema, Negative for palpitations. 08:39 Respiratory: Positive for cough, shortness of breath. 08:39 Neuro: Positive for headache, Negative for numbness, tingling. 08:39 All other systems are negative. Exam: 08:39 Constitutional: This is a well developed, well nourished patient who is awake, alert, pm1 and in no acute distress. Head/Face: Normocephalic, atraumatic. 08:39 Back: No spinal tenderness. No costovertebral tenderness. Full range of motion. Skin: Warm, dry with normal turgor. Normal color with no rashes, no lesions, and no evidence of cellulitis. MS/ Extremity: Pulses equal, no cyanosis. Neurovascular intact. Full, normal range of motion. 08:39 Cardiovascular: Exam negative for acute changes, Rate: bradycardic, Rhythm: regular, Pulses: no pulse deficits are appreciated. 08:39 Respiratory: mild respiratory distress is noted, Respirations: tachypnea, that is mild, Breath sounds: decreased breath sounds, are located in both bases. 08:39 Abdomen/GI: Inspection: obese Palpation: abdomen is soft and non-tender, in all quadrants. 08:39 Neuro: Exam negative for acute changes, Orientation: is normal, Mentation: is normal, Motor: is normal, moves all fours. Vital Signs: 08:20 BP 132 / 119; Pulse 48; Resp 18; Temp 97.3; Pulse Ox 94% on R/A; ph 09:14 Pulse Ox 88% on R/A; ph 10:00 BP 101 / 58; Pulse 40; Resp 14; Pulse Ox 98% on 2 lpm NC; ph 10:29 BP 109 / 82; Pulse 44; Resp 16; Pulse Ox 97% on 2 lpm NC; ph 11:00 BP 107 / 72; Pulse 41; Resp 14; Pulse Ox 95% on 2 lpm NC; ph 12:00 BP 115 / 71; Pulse 44; Resp 16; Pulse Ox 96% on R/A; jg9 13:30 BP 125 / 90; Pulse 45; Resp 16 S; Pulse Ox 99% ; jg9 MDM: 08:34 Patient medically screened. pm1 11:29 ED course: Patient with bradycardia. Discussed with Dr. Miller if need for pm1 consideration of reversal. Patient last took her metoprolol this AM and has scheduled dose for 200 mg TID. Per patient's pharmacy, she was increased to 600mg daily in May of this year from 100mg BID. 12:31 Data reviewed: vital signs. Data interpreted: Pulse oximetry: on room air is 96 %. pm1 Interpretation: normal. 12:31 ED course: Patient reported to me that her PCP is Dr. Jacobs, not Dr. Campos. She told pm1 me she has switched over to [facility] as her primary care provider from [facility]. 12:31 Physician consultation: Rm Deras MD regarding admission, patient's condition, pm1 and will see patient in ED. 08/15 08:39 Order name: Basic Metabolic Panel; Complete Time: 10:25 pm1 08/15 08:39 Order name: CBC with Diff; Complete Time: 09:49 pm1 08/15 08:39 Order name: LFT's; Complete Time: 10:25 pm1 08/15 08:39 Order name: Magnesium; Complete Time: 10:25 pm1 08/15 08:39 Order name: NT PRO-BNP; Complete Time: 10:25 pm1 08/15 08:39 Order name: PT-INR; Complete Time: 09:49 pm1 08/15 08:39 Order name: Troponin HS; Complete Time: 10:25 pm1 08/15 08:39 Order name: XRAY Chest (1 view); Complete Time: 14:13 pm1 08/15 08:39 Order name: Flu; Complete Time: 09:49 pm1 08/15 08:39 Order name: COVID-19 SARS RT PCR (Document "Date of Onset" if Symptomatic); Complete pm1 Time: 10:25 08/15 10:25 Order name: Urine Dipstick-Ancillary; Complete Time: 10:25 EDMS 08/15 12:48 Order name: CBC with Automated Diff EDMS 08/15 12:48 Order name: Comprehensive Metabolic Panel EDMS 08/15 08:39 Order name: EKG; Complete Time: 08:39 pm1 08/15 08:39 Order name: Cardiac monitoring; Complete Time: 09:10 pm1 08/15 08:39 Order name: EKG - Nurse/Tech; Complete Time: 09:10 pm1 08/15 08:39 Order name: IV Saline Lock; Complete Time: 09:10 pm1 08/15 08:39 Order name: Labs collected and sent; Complete Time: 09:10 pm1 08/15 08:39 Order name: O2 Per Protocol; Complete Time: 09:10 pm1 08/15 08:39 Order name: O2 Sat Monitoring; Complete Time: 09:10 pm1 08/15 08:43 Order name: Head Brain Wo Cont; Complete Time: 09:49 EDMS 08/15 12:48 Order name: Heart Healthy EDMS Administered Medications: 09:45 Drug: Albuterol - atroVENT (ipratropium) (3:1) (2.5 mg - 0.5 mg) 3 ml Route: Nebulizer; ph 11:20 Follow up: Response: No adverse reaction ph 09:48 Drug: Zofran (Ondansetron) 4 mg Route: IVP; Site: right hand; ph 11:20 Follow up: Response: No adverse reaction ph 09:50 Drug: morphine 4 mg Route: IVP; Infused Over: 4 mins; Site: right hand; ph 11:19 Follow up: Response: No adverse reaction; RASS: Drowsy (-1) ph 10:28 Drug: Lasix (furosemide) 40 mg Route: IVP; Site: right hand; ph 11:20 Follow up: Response: No adverse reaction ph Disposition: 14:55 Co-signature as Attending Physician, Juan A Miller MD I agree with the assessment and kdr plan of care. Disposition Summary: 08/15/21 12:46 Hospitalization Ordered Hospitalization Status: Inpatient Admission pm1 Provider: Rm Deras pm1 Location: Telemetry/[facility] (Inpatient) pm1 Condition: Stable pm1 Problem: new pm1 Symptoms: have improved pm1 Bed/Room Type: Standard pm1 Room Assignment: 232(08/15/21 13:34) eb Diagnosis - Bradycardia, unspecified pm1 - Acute on chronic combined systolic (congestive) and diastolic (congestive) heart pm1 failure - Hypoxia pm1 Forms: - Medication Reconciliation Form pm1 - SBAR form pm1 Signatures: Dispatcher [employer] EDMS Juan A Miller MD MD [facility] Barbara Schultz RN RN ph Jairo Dave NP FLOAT BUILDER pm1 Luisa Ruiz Corrections: (The following items were deleted from the chart) 12:31 12:31 Counseling: I had a detailed discussion with the patient and/or guardian pm1 regarding: the historical points, exam findings, and any diagnostic results supporting the discharge/admit diagnosis, lab results, radiology results, the need for outpatient follow up, to return to the emergency department if symptoms worsen or persist or if there are any questions or concerns that arise at home, pm1 13:31 12:46 pm1 eb 13:34 13:31 215 eb eb
--- NOTE | 2021-08-15 15:38 | P.HP ---
Certification for Inpatient Patient admitted to: Observation With expected LOS: <2 Midnights Patient will require the following post-hospital care: None Practitioner: I am a practitioner with admitting privileges, knowledge of patient current condition, hospital course, and medical plan of care. Services: Services provided to patient in accordance with Admission requirements found in Title 42 Section 412.3 of the Code of Federal Regulations Patient History Date of Service: 08/15/21 Reason for admission: Congestive heart failure History of Present Illness: Patient is 70 years of age with a history of metabolic syndrome admitted with sudden onset of worsening nausea shortness of breath and chest discomfort been going on for the past 4 days denies any fever chills also complains of some lower extremity edema has been compliant with her medication complaining of a migraine headache Allergies sumatriptan [From Imitrex] Allergy (Intermediate, Verified 01/28/19 22:40) Unknown Home Medications: Albuterol Inhaler [Ventolin Inhaler*] 2 puff IH Q6H PRN 06/21/21 Alprazolam [Xanax] 0.5 mg PO BID 06/21/21 Doxepin HCl 75 mg PO BEDTIME 06/21/21 Escitalopram [Lexapro*] 20 mg PO DAILY 06/21/21 Fluticasone/Vilanterol [Breo Ellipta 200-25 Mcg INH] 1 each IH DAILY 06/21/21 Furosemide [Lasix*] 40 mg PO DAILY 06/21/21 Losartan Potassium [Cozaar*] 50 mg PO BID 06/21/21 Metoprolol Tartrate 100 mg PO BID 06/21/21 Nifedipine [Nifedipine ER] 60 mg PO BID 06/21/21 Spironolactone 50 mg PO DAILY 06/21/21 Temazepam 22.5 mg PO BEDTIME PRN 06/21/21 Gabapentin [Neurontin*] 200 mg PO TID 30 Days #90 cap 06/26/21 - Past Medical/Surgical History Diabetic: Yes -: HTN -: Migraines -: TIA -: CHF -: GERD -: diverticulitis -: DM -: Depression/anxiety -: Lf ankle sx -: Hernia repair x2 -: Cholecystectomy -: Hysterectomy Psychosocial/ Personal History: Patient lives at home with her daughter. - Family History Mother -: Heart disease - Social History Alcohol use: No CD- Drugs: No Caffeine use: Yes Review of Systems 10-point ROS is otherwise unremarkable General: Weakness Respiratory: Shortness of Breath Cardiovascular: Edema Physical Examination - Vital Signs Temperature: 97.3 F Blood Pressure: 125/90 Pulse: 45 Respirations: 16 - Physical Exam General: Alert, Oriented x3, Mild distress Respiratory: Clear to auscultation bilaterally, Diminished Cardiovascular: Normal S1 S2, Edema (2+ edema) Gastrointestinal: Normal bowel sounds, Soft and benign Musculoskeletal: No clubbing Neurological: Normal speech, Normal strength at 5/5 x4 extr - Studies Laboratory Data (last 24 hrs) 08/15/21 09:00: PT 12.5, INR 1.13 08/15/21 09:00: WBC 6.2, Hgb 9.9 L, Hct 30.9 L, Plt Count 242 08/15/21 09:00: Sodium 135 L, Potassium 4.6, BUN 28 H, Creatinine 1.14, Glucose 252 H, Magnesium 2.1, Total Bilirubin 0.2, AST 25, ALT 30, Alkaline Phosphatase 107 Microbiology Data (last 24 hrs): 08/15/21 09:05 Nasopharnyx Influenza Type A Antigen Screen - Final 08/15/21 09:05 Nasopharnyx Influenza Type B Antigen Screen - Final Assessment and Plan - Problems (Diagnosis) (1) CHF (congestive heart failure) Current Visit: No Status: Acute Plan: Patient is 70 years of age multiple hospital admissions admitted with worsening dyspnea shortness of breath nausea x-ray consistent with congestive heart failure BNP is also elevated labs reviewed no evidence of sepsis chest x-ray reviewed admit to the hospital IV diuresis Qualifiers: Heart failure type: systolic Heart failure chronicity: acute on chronic Qualified Code(s): I50.23 - Acute on chronic systolic (congestive) heart failure - Advance Directives Does patient have a Living Will: No Does patient have a Durable POA for Healthcare: No
[2021-08-15 15:56] VITALS: BMI 47.4
[2021-08-15] MEDS ORDERED: HYDROCODONE/APAP 5/325 MG TAB PO PRN (16:42)
[2021-08-15] MEDS: FUROSEMIDE 40 MG/4 ML VIAL IV SCH (17:23)
[2021-08-15] MEDS ORDERED: KETOROLAC 30 MG/ML INJ IV ONE (22:23)
[2021-08-16] MEDS ORDERED: KETOROLAC 30 MG/ML INJ IV ONE (04:37)
[2021-08-16] MEDS ORDERED: DIPHENHYDRAMINE 50 MG/ML VIAL IV ONE (04:37)
[2021-08-16] MEDS: METOCLOPRAMIDE 10 MG/2mL INJ IV SCH (04:49)
[2021-08-16] MEDS: ENOXAPARIN 40 MG/0.4 ML SQ SCH (08:43)
[2021-08-16] MEDS: SPIRONOLACTONE 25 MG TABLET PO SCH (08:43)
[2021-08-16] MEDS: FUROSEMIDE 40 MG/4 ML VIAL IV SCH ×2 (08:43→16:54)
[2021-08-16] MEDS: ONDANSETRON 4 MG/2 ML VIAL IV PRN (13:45)
--- NOTE | 2021-08-16 15:52 | P.PN ---
Subjective Date of Service: 08/16/21 Chief Complaint: SOb and migraine headache Subjective: Improving (c/o Headache and SOB) Review of Systems General: Weakness Respiratory: Shortness of Breath Physical Examination - Vital Signs Temperature: 97.4 F Blood Pressure: 132/74 Pulse: 52 Respirations: 16 Pulse Ox (%): 93 - Physical Exam General: Alert, Oriented x3, Moderate distress Respiratory: Clear to auscultation bilaterally, Diminished Cardiovascular: Regular rate/rhythm, Normal S1 S2, Edema Assessment And Plan - Current Problems (Diagnosis) (1) CHF (congestive heart failure) Current Visit: No Status: Acute Plan: AW CHF c/o SOB and headache/ Resume home meds/ labs reviwed VS stable/ Resume home meds reduse dose of Toprol /poss discharge home am Qualifiers: Heart failure type: systolic Heart failure chronicity: acute on chronic Qualified Code(s): I50.23 - Acute on chronic systolic (congestive) heart failure Discharge Plan: Home Plan to discharge in: 24 Hours
[2021-08-16] MEDS ORDERED: PNEUMOCOCCAL VACCINE 0.5 ML IMVAC ONE (16:00)
[2021-08-16] MEDS ORDERED: HOME MED 1 EA UNK NAS PRN (17:33)
[2021-08-16 18:21] LABS: Absolute Lymphocytes (CBC) 0.8 K/uL (0.7-4.9); Hematocrit 33.7 % (36.0-45.0); MCV 82.3 fL (80-100); MPV 8.4 fL (7.6-11.3)
[2021-08-16 18:26] LABS: Albumin 2.9 g/dL (3.4-5.0); Bilirubin Total 0.3 mg/dL (0.2-1.0); Protein, Total 7.5 g/dL (6.4-8.2)
[2021-08-16 18:28] LABS: Potassium 5.7 mmol/L (3.5-5.1)
[2021-08-16 19:46] LABS: Anisocytosis 1+; Blood Morphology Comment NOTED (NOT SEEN); Platelet Estimate ADEQ; White Blood Cell Scan OK (OK)
[2021-08-16] MEDS: LOSARTAN POTASSIUM 50 MG TABLET PO SCH (20:13)
[2021-08-16] MEDS: ALPRAZOLAM 0.5 MG TABLET PO SCH (20:13)
[2021-08-16] MEDS: GABAPENTIN 100 MG CAP PO SCH (20:13)
[2021-08-16] MEDS ORDERED: DOXEPIN HCL 25 MG CAP PO SCH ×2 (21:00)
[2021-08-16] MEDS: METOPROLOL TAR 50 MG TAB PO SCH (21:10)
[2021-08-16] MEDS: GABAPENTIN 300 MG CAP PO SCH (21:10)
[2021-08-16] MEDS: NIFEDIPINE XL 60 MG TABLET PO SCH (21:10)
[2021-08-16] MEDS: BUTORPHANOL NAS PRN (21:15)
[2021-08-17] MEDS: METOCLOPRAMIDE 10 MG/2mL INJ IV SCH (05:00)
[2021-08-17] MEDS: ONDANSETRON 4 MG/2 ML VIAL IV PRN (06:04)
[2021-08-17] MEDS: BUTORPHANOL NAS PRN (06:05)
[2021-08-17 06:35] LABS: Phosphorus 4.3 mg/dL (2.5-4.9)
[2021-08-17 06:36] VITALS: O2SAT 96
[2021-08-17] MEDS: GABAPENTIN 100 MG CAP PO SCH (08:46)
[2021-08-17] MEDS: METOPROLOL TAR 50 MG TAB PO SCH ×2 (08:46→09:00)
[2021-08-17] MEDS: LOSARTAN POTASSIUM 50 MG TABLET PO SCH ×2 (08:46→09:00)
[2021-08-17] MEDS: ALPRAZOLAM 0.5 MG TABLET PO SCH (08:46)
[2021-08-17] MEDS: SPIRONOLACTONE 25 MG TABLET PO SCH (08:47)
[2021-08-17] MEDS: NIFEDIPINE XL 60 MG TABLET PO SCH ×2 (08:47→09:00)
[2021-08-17] MEDS: ENOXAPARIN 40 MG/0.4 ML SQ SCH (08:47)
[2021-08-17] MEDS: FUROSEMIDE 40 MG/4 ML VIAL IV SCH (08:47)
[2021-08-17] MEDS: GABAPENTIN 300 MG CAP PO SCH (08:47)
[2021-08-17] MEDS ORDERED: ESCITALOPRAM 20 MG TAB PO SCH (09:00)
[2021-08-17] MEDS ORDERED: PNEUMOCOCCAL VACCINE 0.5 ML IMVAC ONE (12:00)
--- NOTE | 2021-08-17 14:16 | P.DS ---
Admission Date: 08/15/21 Discharge Date: 08/17/21 Disposition: ROUTINE DISCHARGE Discharge Condition: GOOD Reason for Admission: SOb and migraine headache - Problems (1) CHF (congestive heart failure) Current Visit: No Status: Acute Qualifiers: Heart failure type: systolic Heart failure chronicity: acute on chronic Qualified Code(s): I50.23 - Acute on chronic systolic (congestive) heart failure Brief History of Present Illness: Patient is 70 years of age with a history of metabolic syndrome admitted with sudden onset of worsening nausea shortness of breath and chest discomfort been going on for the past 4 days denies any fever chills also complains of some lo wer extremity edema has been compliant with her medication complaining of a migraine headache Hospital Course: Pt did well. c/o migraines/ Ambulating at discharge. Did not qualify for oxygen/ DC Nifedioine XL due to LE edema. Reduce Metoprolol to 50 mg BID . Weigh daily OW VS stable. Chest clear Edema decreased CVS HS normal/Labs reviewed./HEad CT neg, CXRY Poss CHF Vital Signs/Physical Exam: Temp Pulse Resp BP Pulse Ox 96.5 F L 46 L 18 121/58 L 92 08/17/21 12:00 08/17/21 12:00 08/17/21 12:00 08/17/21 12:00 08/17/21 12:00 Laboratory Data at Discharge: WBC 7.4 K/uL (4.3-10.9) D 08/16/21 17:56 Hgb 10.9 g/dL (12.0-15.0) L 08/16/21 17:56 Hct 33.7 % (36.0-45.0) L 08/16/21 17:56 Plt Count 239 K/uL (152-406) 08/16/21 17:56 PT 12.5 SECONDS (9.5-12.5) 08/15/21 09:00 INR 1.13 08/15/21 09:00 Sodium 137 mmol/L (136-145) 08/17/21 06:01 Potassium 5.0 mmol/L (3.5-5.1) 08/17/21 06:01 BUN 38 mg/dL (7-18) H 08/17/21 06:01 Creatinine 1.30 mg/dL (0.55-1.3) 08/17/21 06:01 Glucose 122 mg/dL (74-106) H 08/17/21 06:01 Phosphorus 4.3 mg/dL (2.5-4.9) 08/17/21 06:01 Magnesium 2.1 mg/dL (1.8-2.4) 08/15/21 09:00 Total Bilirubin 0.3 mg/dL (0.2-1.0) 08/16/21 17:56 AST 20 U/L (15-37) 08/16/21 17:56 ALT 29 U/L (12-78) 08/16/21 17:56 Alkaline Phosphatase 119 U/L (45-117) H 08/16/21 17:56 Home Medications: Albuterol Inhaler [Ventolin Inhaler*] 2 puff IH Q6H PRN 06/21/21 Alprazolam [Xanax] 0.5 mg PO BID 06/21/21 Escitalopram [Lexapro*] 20 mg PO DAILY 06/21/21 Fluticasone/Vilanterol [Breo Ellipta 200-25 Mcg INH] 1 each IH DAILY 06/21/21 Furosemide [Lasix*] 40 mg PO DAILY 06/21/21 Losartan Potassium [Cozaar*] 50 mg PO BID 06/21/21 Spironolactone 50 mg PO DAILY 06/21/21 Temazepam 22.5 mg PO BEDTIME PRN 06/21/21 Gabapentin [Neurontin*] 200 mg PO TID 30 Days #90 cap 06/26/21 Butorphanol Tartrate 1 inh IN PRN 08/16/21 Doxepin HCl 100 mg PO BEDTIME 08/16/21 Gabapentin 300 mg PO TID 08/16/21 Metoprolol Tartrate 50 mg PO BID #60 08/17/21 New Medications: Metoprolol Tartrate 50 mg PO BID #60 Physician Discharge Instructions: Daily weights. If weight gain more than 2 pounds take and extra frusemide half tablet 20 mg Reduce dose of metoprolol to 50 mg twice a day Stop nifedine may cause swelling of legs Diet: Low sodium Activity: Ad jenny Followup: Roland Burns MD [ACTIVE - CAN ADMIT] - NONE,NONE [Primary Care Provider] -
[2021-08-17 16:12] VITALS: BP 156/69; TEMP 97.1
--- NOTE | 2021-08-18 08:03 | EKG ---
Test Date: 2021-08-15 Test Time: 09:58:21 Photoengraving Apprentice: MB MEASUREMENT RESULTS: Intervals: Rate: 41 MI: 164 QRSD: 168 QT: 632 QTc: 521 [place]: P: 44 MI: 164 QRS: -12 T: -36 INTERPRETIVE STATEMENTS: Marked sinus bradycardia Left bundle branch block Abnormal ECG Compared to ECG 06/18/2021 22:19:31 Sinus rhythm no longer present Ventricular premature complex(es) no longer present Electronically Signed On 08-18-21 07:56:16 CDT by Roland Burns
--- OUTSIDE RECORDS SUMMARY | 2021-09-02 06:50 | XMS REPORT | Continuity of Care Document ---
:[address] [facility] t Address [facility] [address] [place] [address] Care Team Providers Name Role Phone KIRAN, Shaista Primary Care Physician Unavailable TIFFANY CARTER Attending Clinician Unavailable TIFFANY CARTER Attending Clinician Unavailable Tiffany Carter MD Attending Clinician Yonny Holly Attending Clinician Unavailable Alissa BREWER Attending Clinician Unavailable Doctor Unassigned, Name Attending Clinician Unavailable ADRIEN Attending Clinician Unavailable Shaista Beck MD Attending Clinician Moises BOWERS Attending Clinician Unavailable Moises Gary Attending Clinician Shaista BECK Attending Clinician Unavailable Elayne, X Admitting Clinician Unavailable Payers Payer Name Policy Type Policy Number Effective Date Expiration Date Zander alarcon [facility]RECT [id number] 2021 PFFS 00:00:00 [facility] [id number] 2021 [facility] [place] 00:00:00 [place] [id number] 2021 00:00:00 Problems Condition Condition Condition Status Onset Resolution Last Treating Co mments Source Name Details Category Date Date Treatment Clinician Date Grief Grief Disease Active 2019- [facility] 04-19 ity of 00:00: [place] 00 [facility] Reactive Reactive Disease Active Unive rs depression depression 3-06 it y of 00:00: [address] No known No known Disease Unive rs active active ity of problems problems [facility] Allergies, Adverse Reactions, Alerts Allergy Allergy Status Severity Reaction(s) Onset Inactive Treating Comm ents Source Name Type Date Date Clinician No Known DA Active U [facility] All[facility] 4-03 [place] [facility] 00:00: [facility] 00 [facility] NO KNOWN Drug Active Univers ALLERGIE Class ity of S [facility] Social History Social Habit Start Date Stop Date Quantity Comments Source Exposure to Not sure [facility] SARS-CoV-2 [facility] (event) Branch Alcohol intake 2019-04-20 2019-04-20 Current [facility] 00:00:00 00:00:00 non-drinker of [facility] alcohol [place] (finding) Tobacco use and 2018-06-27 2018-06-27 Never used Universit y of exposure 00:00:00 00:00:00 [facility] Sex [birth year] Universit [facility] of 00:00:00 00:00:00 [facility] Smoking Status Start Date Stop Date Source Never smoker [facility] Medications Ordered Filled Start Stop Current Ordering Indication Dosage Frequency Signature Comments Components Source Medication Medication Date Date Medication? Clinician (SIG) Name Name AMITRIPTYLI Yes TAKE 1 [facility] [place] 25 mg 5-05 TABLET BY ity of tablet 00:00: [facility]TH [place] EVERYDAY Medical AT BEDTIME Branch AMITRIPTYLI Yes TAKE 1 [facility] [place] 25 mg 5-05 TABLET BY ity of tablet 00:00: [facility]OUTH [place] EVERYDAY Medical AT BEDTIME Branch AMITRIPTYLI Yes TAKE 1 [facility] [place] 25 mg 5-05 TABLET BY ity of tablet 00:00: MOUTH [place] EVERYDAY Medical AT BEDTIME Branch butorphanol Yes 2745 INHALE ONE Univers 10 mg/mL 3-05 SPRAY IN ity of nasal spray 00:00: ONE [place] NOSTRIL Medical EVERY 8 Branch HOURS NEEDED FOR HEADACHE Indication s: chronic pain, headache butorphanol Yes 2745 INHALE ONE Univers 10 mg/mL 3-05 SPRAY IN ity of nasal spray 00:00: ONE [place] [address] NOSTRIL Medical EVERY 8 Branch HOURS NEEDED FOR HEADACHE Indication s: chronic pain, headache butorphanol 2021-0 Yes 2745 INHALE ONE Univers 10 mg/mL 3-05 SPRAY IN ity of nasal spray 00:00: ONE [place] NOSTRIL Medical EVERY 8 Branch HOURS NEEDED FOR HEADACHE Indication s: chronic pain, headache butorphanol 2021-0 Yes 2745 INHALE ONE Univers 10 mg/mL 3-05 SPRAY IN ity of nasal spray 00:00: ONE [place] NOSTRIL Medical EVERY 8 Branch HOURS NEEDED FOR HEADACHE Indication s: chronic pain, headache butorphanol 2021-0 Yes 2745 USE 1 Unive rs 10 mg/mL 2-05 SPRAY IN ity of nasal spray 00:00: ONE [place] NOSTRIL Medical EVERY 8 Branch HOURS NEEDED FOR HEADACHE Indication s: acute pain, chronic pain, Headache butorphanol 2021-0 Yes 2745 USE 1 Unive [facility] 10 mg/mL 2-05 SPRAY IN ity of nasal spray 00:00: ONE [place] NOSTRIL Medical EVERY 8 Branch HOURS NEEDED FOR HEADACHE Indication s: acute pain, chronic pain, Headache butorphanol 2021-0 Yes 2745 USE 1 Unive rs 10 mg/mL 2-05 SPRAY IN ity of nasal spray 00:00: ONE [place] NOSTRIL Medical EVERY 8 Branch HOURS NEEDED FOR HEADACHE Indication s: acute pain, chronic pain, Headache butorphanol 2021-0 Yes 2745 USE 1 Unive rs 10 mg/mL 2-05 SPRAY IN ity of nasal spray 00:00: ONE [place] NOSTRIL Medical EVERY 8 Branch HOURS NEEDED FOR HEADACHE Indication s: acute pain, chronic pain, Headache butorphanol 2021-0 Yes 2745 USE 1 Unive rs 10 mg/mL 2-05 SPRAY IN ity of nasal spray 00:00: ONE [place] NOSTRIL Medical EVERY 8 Branch HOURS NEEDED FOR HEADACHE Indication s: acute pain, chronic pain, Headache butorphanol 2021-0 Yes 2745 USE 1 Unive rs 10 mg/mL 2-05 SPRAY IN ity of nasal spray 00:00: ONE [place] [address] NOSTRIL Medical EVERY 8 Branch HOURS NEEDED FOR HEADACHE Indication s: acute pain, chronic pain, Headache butorphanol 2021-0 Yes 2745 USE 1 Unive rs 10 mg/mL 2-05 SPRAY IN ity of nasal spray 00:00: ONE [place] NOSTRIL Medical EVERY 8 Branch HOURS NEEDED FOR HEADACHE Indication s: acute pain, chronic pain, Headache butorphanol 2021-0 Yes 2745 USE 1 Unive rs 10 mg/mL 2-05 SPRAY IN ity of nasal spray 00:00: ONE [place] NOSTRIL Medical EVERY 8 Branch HOURS NEEDED FOR HEADACHE Indication s: acute pain, chronic pain, Headache butorphanol 2021-0 Yes 2745 USE 1 Unive rs 10 mg/mL 2-05 SPRAY IN ity of nasal spray 00:00: ONE [place] NOSTRIL Medical EVERY 8 Branch HOURS NEEDED FOR HEADACHE Indication s: acute pain, chronic pain, Headache butorphanol 2021-0 Yes 2745 USE 1 Unive rs 10 mg/mL 2-05 SPRAY IN ity of nasal spray 00:00: ONE [place] NOSTRIL Medical EVERY 8 Branch HOURS NEEDED FOR HEADACHE Indication s: acute pain, chronic pain, Headache butorphanol 2021-0 Yes 2745 USE 1 Unive rs 10 mg/mL 2-05 SPRAY IN ity of nasal spray 00:00: ONE [place] NOSTRIL Medical EVERY 8 Branch HOURS NEEDED FOR HEADACHE Indication s: acute pain, chronic pain, Headache butorphanol 2021-0 2021- No 2745 USE 1 Univ ers 10 mg/mL 2-05 03-05 SPRAY IN ity of nasal spray 00:00: 00:00 [place] 00 :00 NOSTRIL Medical EVERY 8 Branch HOURS NEEDED FOR HEADACHE Indication s: acute pain, chronic pain, Headache butorphanol 2021-0 2021- No 2745 USE 1 Univ ers 10 mg/mL 2-05 03-05 SPRAY IN ity of nasal spray 00:00: 00:00 [place] 00 :00 NOSTRIL Medical EVERY 8 Branch HOURS NEEDED FOR HEADACHE Indication s: acute pain, chronic pain, Headache butorphanol 2021-0 Yes 2745 USE 1 Unive rs 10 mg/mL 1-05 SPRAY IN ity of nasal spray 00:00: [place] NOSTRIL Medical EVERY 8 Branch HOURS NEEDED FOR HEADACHE Indication s: acute pain, chronic pain, Headache butorphanol 2021-0 Yes 2745 USE 1 Unive rs 10 mg/mL 1-05 SPRAY IN ity of nasal spray 00:00: [place] [address] NOSTRIL Medical EVERY 8 Branch HOURS NEEDED FOR HEADACHE Indication s: acute pain, chronic pain, Headache butorphanol 2020-0 Yes 2745 USE 1 Unive rs 10 mg/mL 1-05 SPRAY IN ity of nasal spray 00:00: [place] NOSTRIL Medical EVERY 8 Branch HOURS NEEDED FOR HEADACHE Indication s: acute pain, chronic pain, Headache butorphanol 2020-0 2021- No 2745 USE 1 Univ ers 10 mg/mL 1-05 02-05 SPRAY IN ity of nasal spray 00:00: 00:00 [facility] 00 :00 NOSTRIL Medical EVERY 8 Branch HOURS NEEDED FOR HEADACHE Indication s: acute pain, chronic pain, Headache butorphanol 2019- Yes 2745 USE 1 Unive rs 10 mg/mL 2-07 SPRAY IN ity of nasal spray 00:00: [place] NOSTRIL Medical EVERY 8 Branch HOURS NEEDED FOR HEADACHE Indication s: acute pain, chronic pain, Headache butorphanol 2019- Yes 2745 USE 1 Unive rs 10 mg/mL 2-07 SPRAY IN ity of nasal spray 00:00: [place] NOSTRIL Medical EVERY 8 Branch HOURS NEEDED FOR HEADACHE Indication s: acute pain, chronic pain, Headache butorphanol 2019-02- No 2745 USE 1 Univ ers 10 mg/mL 2-07 01-05 SPRAY IN ity of nasal spray 00:00: 00:00 [facility] 00 :00 NOSTRIL Medical EVERY 8 Branch HOURS NEEDED FOR HEADACHE Indication s: acute pain, chronic pain, Headache AMITRIPTYLI 2020- Yes TAKE 1 Univ ers [place] 25 mg 1-10 TABLET BY ity of tablet 00:00: [facility] 00 EVERYDAY Medical AT BEDTIME Branch AMITRIPTYLI 2020-1 Yes TAKE 1 Univ ers NE 25 mg 1-10 TABLET BY ity of tablet 00:00: [facility] 00 EVERYDAY Medical AT BEDTIME Branch AMITRIPTYLI 2020-1 Yes TAKE 1 Univ ers NE 25 mg 1-10 TABLET BY ity of tablet 00:00: [facility] 00 EVERYDAY Medical AT BEDTIME Branch AMITRIPTYLI 2020-1 Yes TAKE 1 Univ ers NE 25 mg 1-10 TABLET BY ity of tablet 00:00: [facility] 00 EVERYDAY Medical AT BEDTIME Branch AMITRIPTYLI 2020-1 Yes TAKE 1 Univ ers [...] 1-10 TABLET BY ity of tablet 00:00: EVERYDAY Medical AT BEDTIME Branch AMITRIPTYLI 2019- [...] 1-10 TABLET BY ity of tablet 00:00: [facility] EVERYDAY Medical AT BEDTIME Branch AMITRIPTYLI 2020- Yes TAKE 1 Univ ers NE 25 mg 1-10 TABLET BY ity of tablet 00:00: MOUTH EVERYDAY Medical AT BEDTIME Branch AMITRIPTYLI 2020- Yes TAKE 1 Univ ers NE 25 mg 1-10 TABLET BY ity of tablet 00:00: [facility] 00 EVERYDAY Medical AT BEDTIME Branch AMITRIPTYLI 2020-1 Yes TAKE 1 Univ ers NE 25 mg 1-10 TABLET BY ity of tablet 00:00: MOUTH EVERYDAY Medical AT BEDTIME Branch AMITRIPTYLI 2020-1 Yes TAKE 1 Univ ers [...] MOUTH EVERYDAY Medical AT BEDTIME Branch AMITRIPTYLI 2019-02- No TAKE 1 Uni vers NE 25 mg 1-10 05-05 TABLET BY ity o f tablet 00:00: 00:00 [facility] 00 :00 EVERYDAY Medical AT BEDTIME Branch butorphanol 2019-02 Yes 2745 USE 1 Unive rs 10 mg/mL 1-09 SPRAY IN ity of nasal spray 00:00: [place] NOSTRIL Medical EVERY 8 Branch HOURS NEEDED FOR HEADACHE Indication s: chronic pain, Headache butorphanol 2019-02 Yes 2745 USE 1 Unive rs 10 mg/mL 1-09 SPRAY IN ity of nasal spray 00:00: [place] NOSTRIL Medical EVERY 8 Branch HOURS NEEDED FOR HEADACHE Indication s: chronic pain, Headache butorphanol 2019-02 Yes 2745 USE 1 Unive rs 10 mg/mL 1-09 SPRAY IN ity of nasal spray 00:00: [place] NOSTRIL Medical EVERY 8 Branch HOURS NEEDED FOR HEADACHE Indication s: chronic pain, Headache butorphanol 2019-02 2020- No 2745 USE 1 Univ ers 10 mg/mL 1-09 12-07 SPRAY IN ity of nasal spray 00:00: 00:00 [facility] 00 :00 NOSTRIL Medical EVERY 8 Branch HOURS NEEDED FOR HEADACHE Indication s: chronic pain, Headache butorphanol 2019-02 Yes 2745 USE 1 Unive rs 10 mg/mL 0-09 SPRAY IN ity of nasal spray 00:00: [place] NOSTRIL Medical EVERY 8 Branch HOURS NEEDED FOR HEADACHE Indication s: chronic pain, Headache butorphanol 2019- Yes 2745 USE 1 Unive rs 10 mg/mL 0-09 SPRAY IN ity of nasal spray 00:00: [place] NOSTRIL Medical EVERY 8 Branch HOURS NEEDED FOR HEADACHE Indication s: chronic pain, Headache butorphanol 2020-1 2020- No 2745 USE 1 Univ ers 10 mg/mL 0-09 11-09 SPRAY IN ity of nasal spray 00:00: 00:00 ONE [place] 00 :00 NOSTRIL Medical EVERY 8 Branch HOURS NEEDED FOR HEADACHE Indication s: chronic pain, Headache butorphanol 2020-0 Yes 2745 USE 1 Unive rs 10 mg/mL 9-11 SPRAY IN ity of nasal spray 00:00: ONE [place] NOSTRIL Medical EVERY 8 Branch HOURS NEEDED FOR HEADACHE Indication s: chronic pain, Headache butorphanol 2020-0 Yes 2745 USE 1 Unive rs 10 mg/mL 9-11 SPRAY IN ity of nasal spray 00:00: ONE [place] NOSTRIL Medical EVERY 8 Branch HOURS NEEDED FOR HEADACHE Indication s: chronic pain, Headache butorphanol 2020-0 2020- No 2745 USE 1 Univ ers 10 mg/mL 9-11 10-09 SPRAY IN ity of nasal spray 00:00: 00:00 [facility] 00 :00 NOSTRIL Medical EVERY 8 Branch HOURS NEEDED FOR HEADACHE Indication s: chronic pain, Headache butorphanol 2020-0 Yes USE 1 Unive rs 10 mg/mL 8-14 SPRAY IN ity of nasal spray 00:00: ONE [place] [address] NOSTRIL Medical EVERY 8 Branch HOURS NEEDED FOR HEADACHE Indication s: Headache butorphanol 2020-0 Yes 2745 USE 1 Unive rs 10 mg/mL 8-14 SPRAY IN ity of nasal spray 00:00: ONE [place] [address] NOSTRIL Medical EVERY 8 Branch HOURS NEEDED FOR HEADACHE Indication s: chronic pain, Headache butorphanol 2020-0 Yes 2745 USE 1 Unive rs 10 mg/mL 8-14 SPRAY IN ity of nasal spray 00:00: ONE [place] [address] NOSTRIL Medical EVERY 8 Branch HOURS NEEDED FOR HEADACHE Indication s: chronic pain, Headache butorphanol 2020-0 2020- No 2745 USE 1 Univ ers 10 mg/mL 8-14 09-11 SPRAY IN ity of nasal spray 00:00: 00:00 [facility] 00 :00 NOSTRIL Medical EVERY 8 Branch HOURS NEEDED FOR HEADACHE Indication s: chronic pain, Headache butorphanol 2020-0 2020- No USE 1 Univ ers 10 mg/mL 8-14 08-14 SPRAY IN ity of nasal spray 00:00: 00:00 [facility] 00 :00 NOSTRIL Medical EVERY 8 Branch HOURS NEEDED FOR HEADACHE Indication s: Headache butorphanol 2020-0 Yes USE 1 Unive rs 10 mg/mL 7-14 SPRAY IN ity of nasal spray 00:00: ONE [place] 00 NOSTRIL Medical EVERY 8 Branch HOURS NEEDED FOR HEADACHE Indication s: Headache butorphanol 2020-0 2020- No USE 1 Univ ers 10 mg/mL 7-14 08-14 SPRAY IN ity of nasal spray 00:00: 00:00 ONE [place] 00 :00 NOSTRIL Medical EVERY 8 Branch HOURS NEEDED FOR HEADACHE Indication s: Headache butorphanol 2020-0 2020- No USE 1 Univ ers 10 mg/mL 6-09 07-14 SPRAY IN ity of nasal spray 00:00: 00:00 ONE [place] 00 :00 NOSTRIL Medical EVERY 8 Branch HOURS NEEDED FOR HEADACHE butorphanol 2020-0 Yes USE 1 Unive rs 10 mg/mL 6-04 SPRAY IN ity of nasal spray 00:00: ONE [place] [address] NOSTRIL Medical EVERY 8 Branch HOURS NEEDED FOR HEADACHE butorphanol 2020-0 Yes USE 1 Unive rs 10 mg/mL 6-04 SPRAY IN ity of nasal spray 00:00: ONE [place] [address] NOSTRIL Medical EVERY 8 Branch HOURS NEEDED FOR HEADACHE butorphanol 2020-0 Yes USE 1 Unive rs 10 mg/mL 6-04 SPRAY IN ity of nasal spray 00:00: ONE [place] [address] NOSTRIL Medical EVERY 8 Branch HOURS NEEDED FOR HEADACHE butorphanol 2020-0 Yes USE 1 Unive rs 10 mg/mL 6-04 SPRAY IN ity of nasal spray 00:00: ONE [place] [address] NOSTRIL Medical EVERY 8 Branch HOURS NEEDED FOR HEADACHE butorphanol 2020-0 Yes USE 1 Unive rs 10 mg/mL 6-04 SPRAY IN ity of nasal spray 00:00: ONE [place] [address] NOSTRIL Medical EVERY 8 Branch HOURS NEEDED FOR HEADACHE butorphanol 2020-0 Yes USE 1 Unive rs 10 mg/mL 6-04 SPRAY IN ity of nasal spray 00:00: ONE [place] [address] NOSTRIL Medical EVERY 8 Branch HOURS NEEDED FOR HEADACHE butorphanol 2020-0 Yes USE 1 Unive rs 10 mg/mL 6-04 SPRAY IN ity of nasal spray 00:00: ONE [place] [address] NOSTRIL Medical EVERY 8 Branch HOURS NEEDED FOR HEADACHE SERTRALINE 2020-0 Yes [id number] TAKE 1 U nivers 25 mg 5-21 TABLET BY ity of tablet 00:00: [facility] EVERY DAY Medical Branch SERTRALINE 2020-0 Yes [id number] TAKE 1 U nivers 25 mg 5-21 TABLET BY ity of tablet 00:00: [facility] EVERY DAY Medical Branch SERTRALINE 2020-0 Yes [id number] TAKE 1 U nivers 25 mg 5-21 TABLET BY ity of tablet 00:00: [facility] EVERY DAY Medical Branch SERTRALINE 2020-0 Yes [id number] TAKE 1 U nivers 25 mg 5-21 TABLET BY ity of tablet 00:00: [facility] EVERY DAY Medical Branch SERTRALINE 2020-0 Yes [id number] TAKE 1 U nivers 25 mg 5-21 TABLET BY ity of tablet 00:00: [facility] EVERY DAY Medical Branch SERTRALINE 2020-0 Yes [id number] TAKE 1 U nivers 25 mg 5-21 TABLET BY ity of tablet 00:00: [facility] EVERY DAY Medical Branch SERTRALINE 2020-0 Yes [id number] TAKE 1 U nivers 25 mg 5-21 TABLET BY ity of tablet 00:00: [facility] EVERY DAY Medical Branch SERTRALINE 2020-0 Yes [id number] TAKE 1 U nivers 25 mg 5-21 TABLET BY ity of tablet 00:00: [facility] EVERY DAY Medical Branch SERTRALINE 2020-0 Yes [id number] TAKE 1 U nivers 25 mg 5-21 TABLET BY ity of tablet 00:00: [facility] EVERY DAY Medical Branch SERTRALINE 2020-0 Yes [id number] TAKE 1 U nivers 25 mg 5-21 TABLET BY ity of tablet 00:00: [facility] EVERY DAY Medical Branch SERTRALINE 2020-0 Yes [id number] TAKE 1 U nivers 25 mg 5-21 TABLET BY ity of tablet 00:00: [facility] EVERY DAY Medical Branch SERTRALINE 2020-0 Yes [id number] TAKE 1 U nivers 25 mg 5-21 TABLET BY ity of tablet 00:00: [facility] EVERY DAY Medical Branch SERTRALINE 2020-0 Yes [id number] TAKE 1 U nivers 25 mg 5-21 TABLET BY ity of tablet 00:00: [facility] EVERY DAY Medical Branch SERTRALINE 2020-0 Yes [id number] TAKE 1 U nivers 25 mg 5-21 TABLET BY ity of tablet 00:00: MOUTH [place] EVERY DAY Medical Branch SERTRALINE 2020-0 Yes [id number] TAKE 1 U nivers 25 mg 5-21 TABLET BY ity of tablet 00:00: [facility] EVERY DAY Medical Branch SERTRALINE 2020-0 Yes [id number] TAKE 1 U nivers 25 mg 5-21 TABLET BY ity of tablet 00:00: [facility] EVERY DAY Medical Branch SERTRALINE 2020-0 Yes [id number] TAKE 1 U nivers 25 mg 5-21 TABLET BY ity of tablet 00:00: MOUTH [place] EVERY DAY Medical Branch SERTRALINE 2020-0 Yes [id number] TAKE 1 U nivers 25 mg 5-21 TABLET BY ity of tablet 00:00: [facility] EVERY DAY Medical Branch SERTRALINE 2020-0 Yes [id number] TAKE 1 U nivers 25 mg 5-21 TABLET BY ity of tablet 00:00: [facility] EVERY DAY Medical Branch SERTRALINE 2020-0 Yes [id number] TAKE 1 U nivers 25 mg 5-21 TABLET BY ity of tablet 00:00: [facility] EVERY DAY Medical Branch SERTRALINE 2020-0 Yes [id number] TAKE 1 U nivers 25 mg 5-21 TABLET BY ity of tablet 00:00: [facility] EVERY DAY Medical Branch SERTRALINE 2020-0 Yes [id number] TAKE 1 U nivers 25 mg 5-21 TABLET BY ity of tablet 00:00: [facility] EVERY DAY Medical Branch SERTRALINE 2020-0 Yes [id number] TAKE 1 U nivers 25 mg 5-21 TABLET BY ity of tablet 00:00: [facility] EVERY DAY Medical Branch SERTRALINE 2020-0 Yes [id number] TAKE 1 U nivers 25 mg 5-21 TABLET BY ity of tablet 00:00: [facility] EVERY DAY Medical Branch SERTRALINE 2020-0 Yes [id number] TAKE 1 U nivers 25 mg 5-21 TABLET BY ity of tablet 00:00: [facility] 00 EVERY DAY Medical Branch SERTRALINE 2020-0 Yes [id number] TAKE 1 U nivers 25 mg 5-21 TABLET BY ity of tablet 00:00: [facility] EVERY DAY Medical Branch SERTRALINE 2020-0 Yes [id number] TAKE 1 U nivers 25 mg 5-21 TABLET BY ity of tablet 00:00: [facility] EVERY DAY Medical Branch SERTRALINE 2020-0 Yes [id number] TAKE 1 U nivers 25 mg 5-21 TABLET BY ity of tablet 00:00: [facility] EVERY DAY Medical Branch SERTRALINE 2020-0 Yes [id number] TAKE 1 U nivers 25 mg 5-21 TABLET BY ity of tablet 00:00: [facility] EVERY DAY Medical Branch SERTRALINE 2020-0 Yes [id number] TAKE 1 U nivers 25 mg 5-21 TABLET BY ity of tablet 00:00: [facility] EVERY DAY Medical Branch SERTRALINE 2020-0 Yes [id number] TAKE 1 U nivers 25 mg 5-21 TABLET BY ity of tablet 00:00: [facility] EVERY DAY Medical Branch SERTRALINE 2020-0 Yes [id number] TAKE 1 U nivers 25 mg 5-21 TABLET BY ity of tablet 00:00: [facility] EVERY DAY Medical Branch SERTRALINE 2020-0 Yes [id number] TAKE 1 U nivers 25 mg 5-21 TABLET BY ity of tablet 00:00: [facility] EVERY DAY Medical Branch SERTRALINE 2020-0 Yes [id number] TAKE 1 U nivers 25 mg 5-21 TABLET BY ity of tablet 00:00: [facility] EVERY DAY Medical Branch SERTRALINE 2020-0 Yes [id number] TAKE 1 U nivers 25 mg 5-21 TABLET BY ity of tablet 00:00: [facility] EVERY DAY Medical Branch SERTRALINE 2020-0 Yes [id number] TAKE 1 U nivers 25 mg 5-21 TABLET BY ity of tablet 00:00: [facility] EVERY DAY Medical Branch SERTRALINE 2020-0 Yes [id number] TAKE 1 U nivers 25 mg 5-21 TABLET BY ity of tablet 00:00: [facility] EVERY DAY Medical Branch SERTRALINE 2020-0 Yes [id number] TAKE 1 U nivers 25 mg 5-21 TABLET BY ity of tablet 00:00: [facility] EVERY DAY Medical Branch SERTRALINE 2020-0 Yes [id number] TAKE 1 U nivers 25 mg 5-21 TABLET BY ity of tablet 00:00: [facility] EVERY DAY Medical Branch SERTRALINE 2020-0 Yes [id number] TAKE 1 U nivers 25 mg 5-21 TABLET BY ity of tablet 00:00: [facility] EVERY DAY Medical Branch SERTRALINE 2020-0 Yes [id number] TAKE 1 U nivers 25 mg 5-21 TABLET BY ity of tablet 00:00: MOUTH [place] EVERY DAY Medical Branch SERTRALINE 2020-0 Yes [id number] TAKE 1 U nivers 25 mg 5-21 TABLET BY ity of tablet 00:00: MOUTH [place] EVERY DAY Medical Branch SERTRALINE 2020-0 Yes [id number] TAKE 1 U nivers 25 mg 5-21 TABLET BY ity of tablet 00:00: MOUTH [place] EVERY DAY Medical Branch butorphanol 2020-0 Yes USE 1 Unive rs 10 mg/mL 5-05 SPRAY IN ity of nasal spray 00:00: ONE [place] NOSTRIL Medical EVERY 8 Branch HOURS NEEDED FOR HEADACHE amitriptyli 2020-0 Yes 25mg Take 1 Univ ers ne 25 mg 5-05 tablet by ity of tablet 00:00: mouth at [place] [address] bedtime. Medical Branch butorphanol 2020-0 Yes USE 1 Unive rs 10 mg/mL 5-05 SPRAY IN ity of nasal spray 00:00: ONE [place] NOSTRIL Medical EVERY 8 Branch HOURS NEEDED FOR HEADACHE amitriptyli 2020-0 Yes 25mg Take 1 Univ ers ne 25 mg 5-05 tablet by ity of tablet 00:00: mouth at [place] [address] bedtime. Medical Branch butorphanol 2020-0 Yes USE 1 Unive rs 10 mg/mL 5-05 SPRAY IN ity of nasal spray 00:00: ONE [place] NOSTRIL Medical EVERY 8 Branch HOURS NEEDED FOR HEADACHE amitriptyli 2020-0 Yes 25mg Take 1 Univ ers ne 25 mg 5-05 tablet by ity of tablet 00:00: mouth at [place] [address] bedtime. Medical Branch butorphanol 2020-0 Yes USE 1 Unive rs 10 mg/mL 5-05 SPRAY IN ity of nasal spray 00:00: ONE [place] NOSTRIL Medical EVERY 8 Branch HOURS NEEDED FOR HEADACHE amitriptyli 2020-0 Yes 25mg Take 1 Univ ers ne 25 mg 5-05 tablet by ity of tablet 00:00: mouth at [place] [address] bedtime. Medical Branch butorphanol 2020-0 Yes USE 1 Unive rs 10 mg/mL 5-05 SPRAY IN ity of nasal spray 00:00: ONE [place] [address] NOSTRIL Medical EVERY 8 Branch HOURS NEEDED FOR HEADACHE amitriptyli 2020-0 Yes 25mg Take 1 Univ ers ne 25 mg 5-05 tablet by ity of tablet 00:00: mouth at [place] [address] bedtime. Medical Branch amitriptyli 2020-0 Yes 25mg Take 1 Univ ers ne 25 mg 5-05 tablet by ity of tablet 00:00: mouth at [place] [address] bedtime. Medical Branch amitriptyli 2020-0 Yes 25mg Take 1 Univ ers ne 25 mg 5-05 tablet by ity of tablet 00:00: mouth at [place] [address] bedtime. Medical Branch amitriptyli 2020-0 Yes 25mg Take 1 Univ ers ne 25 mg 5-05 tablet by ity of tablet 00:00: mouth at [place] [address] bedtime. Medical Branch amitriptyli 2020-0 Yes 25mg Take 1 [facility] 25 mg 5-05 tablet by [facility] tablet 00:00: mouth at [place] [address] bedtime. Medical Branch amitriptyli 2020-0 Yes 25mg Take 1 [facility] 25 mg 5-05 tablet by [facility] tablet 00:00: mouth at [place] [address] bedtime. Medical Branch amitriptyli 2020-0 Yes 25mg Take 1 [facility] 25 mg 5-05 tablet by [facility] tablet 00:00: mouth at [place] [address] bedtime. Medical Branch amitriptyli 2020-0 Yes 25mg Take 1 [facility] 25 mg 5-05 tablet by [facility] of tablet 00:00: mouth at [place] [address] bedtime. Medical Branch amitriptyli 2020-0 Yes 25mg Take 1 [facility] 25 mg 5-05 tablet by [facility] tablet 00:00: mouth at [place] [address] bedtime. Medical Branch amitriptyli 2020-0 Yes 25mg Take 1 [facility] 25 mg 5-05 tablet by [facility] tablet 00:00: mouth at [place] [address] bedtime. Medical Branch amitriptyli 2020-0 Yes 25mg Take 1 [facility] 25 mg 5-05 tablet by [facility] tablet 00:00: mouth at [place] [address] bedtime. Medical Branch amitriptyli 2020-0 Yes 25mg Take 1 [facility] 25 mg 5-05 tablet by [facility] tablet 00:00: mouth at [place] [address] bedtime. Medical Branch amitriptyli 2020-0 Yes 25mg Take 1 [facility] 25 mg 5-05 tablet by [facility] tablet 00:00: mouth at [place] [address] bedtime. Medical Branch amitriptyli 2020-0 Yes 25mg Take 1 [facility] 25 mg 5-05 tablet by [facility] tablet 00:00: mouth at [place] [address] bedtime. Medical Branch amitriptyli 2020-0 Yes 25mg Take 1 [facility] 25 mg 5-05 tablet by [facility] tablet 00:00: mouth at [place] [address] bedtime. Medical Branch amitriptyli 2020-0 Yes 25mg Take 1 [facility] 25 mg 5-05 tablet by [facility] tablet 00:00: mouth at [place] [address] bedtime. Medical Branch amitriptyli 2020-0 Yes 25mg Take 1 [facility] 25 mg 5-05 tablet by [facility] tablet 00:00: mouth at [place] [address] bedtime. Medical Branch amitriptyli 2020-0 Yes 25mg Take 1 [facility] 25 mg 5-05 tablet by [facility] of tablet 00:00: mouth at [place] [address] bedtime. Medical Branch amitriptyli 2020-0 2020- No 25mg Take 1 [facility] 25 mg 5-05 11-10 tablet by [facility] o f tablet 00:00: 00:00 mouth at [place] 00 :00 bedtime. Medical Branch butorphanol 2020-0 2020- No USE 1 [facility] 10 mg/mL 5-05 06-04 SPRAY IN [facility] of nasal spray 00:00: 00:00 ONE [place] 00 :00 NOSTRIL Medical EVERY 8 Branch HOURS NEEDED FOR HEADACHE butorphanol 2020-0 2020- No USE 1 [facility] 10 mg/mL 5-05 06-04 SPRAY IN [facility] of nasal spray 00:00: 00:00 ONE [place] 00 :00 NOSTRIL Medical EVERY 8 Branch HOURS NEEDED FOR HEADACHE AMITRIPTYLI 2020-0 Yes TAKE 1 [facility] 25 mg 4-14 TABLET BY [facility] tablet 00:00: MOUTH [place] 00 EVERYDAY Medical AT BEDTIME Branch AMITRIPTYLI [...] ity of nasal spray 00:00: 00:00 ONE 00 :00 NOSTRIL Medical EVERY 8 Branch [...] Medical AT BEDTIME Branch sulfamethox 2020-0 Yes [id number] 1{tbl} Take 1 [facility] azole-trime 3-25 tablet by [facility] of thoprim 00:00: mouth 2 [place] 800-160 mg 00 (two) Medical per tablet times Branch daily. sulfamethox 2020-0 Yes [id number] 1{tbl} Take 1 [facility] azole-trime 3-25 tablet by [facility] of thoprim 00:00: mouth 2 [place] 800-160 mg 00 (two) Medical per tablet times Branch daily. sulfamethox 2020-0 Yes [id number] 1{tbl} Take 1 [facility] azole-trime 3-25 tablet by [facility]y of thoprim 00:00: mouth 2 [place] 800-160 mg 00 (two) Medical per tablet times Branch daily. sulfamethox 2020-0 Yes [id number] 1{tbl} Take 1 [facility] azole-trime 3-25 tablet by [facility] of thoprim 00:00: mouth 2 [place] 800-160 mg 00 (two) Medical per tablet times Branch daily. sulfamethox 2020-0 Yes [id number] 1{tbl} Take 1 [facility] azole-trime 3-25 tablet by ity of thoprim 00:00: mouth 2 [place] 800-160 mg 00 (two) Medical per tablet times Branch daily. sulfamethox 2020-0 Yes [id number] 1{tbl} Take 1 [facility] azole-trime 3-25 tablet by ity of thoprim 00:00: mouth 2 [place] 800-160 mg 00 (two) Medical per tablet times Branch daily. sulfamethox 2020-0 Yes [id number] 1{tbl} Take 1 [facility] azole-trime 3-25 tablet by ity of thoprim 00:00: mouth 2 [place] 800-160 mg 00 (two) Medical per tablet times Branch daily. sulfamethox 2020-0 Yes [id number] 1{tbl} Take 1 [facility] azole-trime 3-25 tablet by ity of thoprim 00:00: mouth 2 [place] 800-160 mg 00 (two) Medical per tablet times Branch daily. sulfamethox 2020-0 Yes [id number] 1{tbl} Take 1 [facility] azole-trime 3-25 tablet by ity of thoprim 00:00: mouth 2 [place] 800-160 mg 00 (two) Medical per tablet times Branch daily. sulfamethox 2020-0 Yes [id number] 1{tbl} Take 1 [facility] azole-trime 3-25 tablet by ity of thoprim 00:00: mouth 2 [place] 800-160 mg 00 (two) Medical per tablet times Branch daily. sulfamethox 2020-0 Yes [id number] 1{tbl} Take 1 [facility] azole-trime 3-25 tablet by ity of thoprim 00:00: mouth 2 [place] 800-160 mg 00 (two) Medical per tablet times Branch daily. sulfamethox 2020-0 Yes [id number] 1{tbl} Take 1 [facility] azole-trime 3-25 tablet by ity of thoprim 00:00: mouth 2 [place] 800-160 mg 00 (two) Medical per tablet times Branch daily. sulfamethox 2020-0 Yes [id number] 1{tbl} Take 1 [facility] azole-trime 3-25 tablet by ity of thoprim 00:00: mouth 2 [place] 800-160 mg 00 (two) Medical per tablet times Branch daily. sulfamethox 2020-0 Yes [id number] 1{tbl} Take 1 [facility] azole-trime 3-25 tablet by ity of thoprim 00:00: mouth 2 [place] 800-160 mg 00 (two) Medical per tablet times Branch daily. sulfamethox 2020-0 Yes [id number] 1{tbl} Take 1 [facility] azole-trime 3-25 tablet by ity of thoprim 00:00: mouth 2 [place] 800-160 mg 00 (two) Medical per tablet times Branch daily. sulfamethox 2020-0 Yes [id number] 1{tbl} Take 1 [facility] azole-trime 3-25 tablet by ity of thoprim 00:00: mouth 2 [place] 800-160 mg 00 (two) Medical per tablet times Branch daily. sulfamethox 2020-0 Yes [id number] 1{tbl} Take 1 [facility] azole-trime 3-25 tablet by ity of thoprim 00:00: mouth 2 [place] 800-160 mg 00 (two) Medical per tablet times Branch daily. sulfamethox 2020-0 Yes [id number] 1{tbl} Take 1 [facility] azole-trime 3-25 tablet by ity of thoprim 00:00: mouth 2 [place] 800-160 mg 00 (two) Medical per tablet times Branch daily. sulfamethox 2020-0 Yes [id number] 1{tbl} Take 1 [facility] azole-trime 3-25 tablet by ity of thoprim 00:00: mouth 2 [place] 800-160 mg 00 (two) Medical per tablet times Branch daily. sulfamethox 2020-0 Yes [id number] 1{tbl} Take 1 [facility] azole-trime 3-25 tablet by ity of thoprim 00:00: mouth 2 [place] 800-160 mg 00 (two) Medical per tablet times Branch daily. sulfamethox 2020-0 Yes [id number] 1{tbl} Take 1 [facility] azole-trime 3-25 tablet by ity of thoprim 00:00: mouth 2 [place] 800-160 mg 00 (two) Medical per tablet times Branch daily. sulfamethox 2020-0 Yes [id number] 1{tbl} Take 1 [facility] azole-trime 3-25 tablet by ity of thoprim 00:00: mouth 2 [place] 800-160 mg 00 (two) Medical per tablet times Branch daily. sulfamethox 2020-0 Yes [id number] 1{tbl} Take 1 [facility] azole-trime 3-25 tablet by ity of thoprim 00:00: mouth 2 [place] 800-160 mg 00 (two) Medical per tablet times Branch daily. sulfamethox 2020-0 Yes [id number] 1{tbl} Take 1 [facility] azole-trime 3-25 tablet by ity of thoprim 00:00: mouth 2 [place] 800-160 mg 00 (two) Medical per tablet times Branch daily. sulfamethox 2020-0 Yes [id number] 1{tbl} Take 1 [facility] azole-trime 3-25 tablet by ity of thoprim 00:00: mouth 2 [place] 800-160 mg 00 (two) Medical per tablet times Branch daily. sulfamethox 2020-0 Yes [id number] 1{tbl} Take 1 [facility] azole-trime 3-25 tablet by ity of thoprim 00:00: mouth 2 [place] 800-160 mg 00 (two) Medical per tablet times Branch daily. sulfamethox 2020-0 Yes [id number] 1{tbl} Take 1 [facility] azole-trime 3-25 tablet by ity of thoprim 00:00: mouth 2 [place] 800-160 mg 00 (two) Medical per tablet times Branch daily. sulfamethox 2020-0 Yes [id number] 1{tbl} Take 1 [facility] azole-trime 3-25 tablet by ity of thoprim 00:00: mouth 2 [place] 800-160 mg 00 (two) Medical per tablet times Branch daily. sulfamethox 2020-0 Yes [id number] 1{tbl} Take 1 [facility] azole-trime 3-25 tablet by ity of thoprim 00:00: mouth 2 [place] 800-160 mg 00 (two) Medical per tablet times Branch daily. sulfamethox 2020-0 Yes [id number] 1{tbl} Take 1 [facility] azole-trime 3-25 tablet by ity of thoprim 00:00: mouth 2 [place] 800-160 mg 00 (two) Medical per tablet times Branch daily. sulfamethox 2020-0 Yes [id number] 1{tbl} Take 1 [facility] azole-trime 3-25 tablet by ity of thoprim 00:00: mouth 2 [place] 800-160 mg 00 (two) Medical per tablet times Branch daily. sulfamethox 2020-0 Yes [id number] 1{tbl} Take 1 [facility] azole-trime 3-25 tablet by ity of thoprim 00:00: mouth 2 [place] 800-160 mg 00 (two) Medical per tablet times Branch daily. sulfamethox 2020-0 Yes [id number] 1{tbl} Take 1 [facility] azole-trime 3-25 tablet by ity of thoprim 00:00: mouth 2 [place] 800-160 mg 00 (two) Medical per tablet times Branch daily. sulfamethox 2020-0 Yes [id number] 1{tbl} Take 1 [facility] azole-trime 3-25 tablet by ity of thoprim 00:00: mouth 2 [place] 800-160 mg 00 (two) Medical per tablet times Branch daily. sulfamethox 2020-0 Yes [id number] 1{tbl} Take 1 [facility] azole-trime 3-25 tablet by ity of thoprim 00:00: mouth 2 [place] 800-160 mg 00 (two) Medical per tablet times Branch daily. sulfamethox 2020-0 Yes [id number] 1{tbl} Take 1 [facility] azole-trime 3-25 tablet by ity of thoprim 00:00: mouth 2 [place] 800-160 mg 00 (two) Medical per tablet times Branch daily. sulfamethox 2020-0 Yes [id number] 1{tbl} Take 1 [facility] azole-trime 3-25 tablet by ity of thoprim 00:00: mouth 2 [place] 800-160 mg 00 (two) Medical per tablet times Branch daily. sulfamethox 2020-0 Yes [id number] 1{tbl} Take 1 [facility] azole-trime 3-25 tablet by ity of thoprim 00:00: mouth 2 [place] 800-160 mg 00 (two) Medical per tablet times Branch daily. sulfamethox 2020-0 Yes [id number] 1{tbl} Take 1 [facility] azole-trime 3-25 tablet by ity of thoprim 00:00: mouth 2 [place] 800-160 mg 00 (two) Medical per tablet times Branch daily. sulfamethox 2020-0 Yes [id number] 1{tbl} Take 1 [facility] azole-trime 3-25 tablet by ity of thoprim 00:00: mouth 2 [place] 800-160 mg 00 (two) Medical per tablet times Branch daily. sulfamethox 2020-0 Yes [id number] 1{tbl} Take 1 [facility] azole-trime 3-25 tablet by ity of thoprim 00:00: mouth 2 [place] 800-160 mg 00 (two) Medical per tablet times Branch daily. sulfamethox 2020-0 Yes [id number] 1{tbl} Take 1 [facility] azole-trime 3-25 tablet by ity of thoprim 00:00: mouth 2 [place] 800-160 mg 00 (two) Medical per tablet times Branch daily. sulfamethox 2020-0 Yes [id number] 1{tbl} Take 1 [facility] azole-trime 3-25 tablet by ity of thoprim 00:00: mouth 2 [place] 800-160 mg 00 (two) Medical per tablet times Branch daily. sulfamethox 2020-0 Yes [id number] 1{tbl} Take 1 [facility] azole-trime 3-25 tablet by ity of thoprim 00:00: mouth 2 [place] 800-160 mg 00 (two) Medical per tablet times Branch daily. sulfamethox 2020-0 Yes [id number] 1{tbl} Take 1 [facility] azole-trime 3-25 tablet by ity of thoprim 00:00: mouth 2 [place] 800-160 mg 00 (two) Medical per tablet times Branch daily. sulfamethox 2020-0 Yes [id number] 1{tbl} Take 1 [facility] azole-trime 3-25 tablet by ity of thoprim 00:00: mouth 2 [place] 800-160 mg 00 (two) Medical per tablet times Branch daily. sulfamethox 2020-0 Yes [id number] 1{tbl} Take 1 [facility] azole-trime 3-25 tablet by ity of thoprim 00:00: mouth 2 [place] 800-160 mg 00 (two) Medical per tablet times Branch daily. sulfamethox 2020-0 Yes [id number] 1{tbl} Take 1 [facility] azole-trime 3-25 tablet by ity of thoprim 00:00: mouth 2 [place] 800-160 mg 00 (two) Medical per tablet times Branch daily. sulfamethox 2020-0 Yes [id number] 1{tbl} Take 1 [facility] azole-trime 3-25 tablet by ity of thoprim 00:00: mouth 2 [place] 800-160 mg 00 (two) Medical per tablet times Branch daily. sulfamethox 2020-0 Yes [id number] 1{tbl} Take 1 [facility] azole-trime 3-25 tablet by ity of thoprim 00:00: mouth 2 [place] 800-160 mg 00 (two) Medical per tablet times Branch daily. sulfamethox 2020-0 Yes [id number] 1{tbl} Take 1 [facility] azole-trime 3-25 tablet by ity of thoprim 00:00: mouth 2 [place] 800-160 mg 00 (two) Medical per tablet times Branch daily. carvediloL 2020-0 Yes 25mg Take 25 mg [facility] 25 mg 3-07 by mouth 2 ity of tablet 01:16: (two) [place] 39 times Medical daily with Branch meals. proMETHazin 2020-0 Yes 12.5mg Take 12.5 [facility] e 25 mg 3-07 mg by ity of tablet 01:16: mouth 3 [place] 39 (three) Medical times Branch daily as needed for Nausea and Vomiting (N/V). insulin 2020-0 Yes inject [facility] aspart 3-07 under the ity of U-100 01:16: skin. [place] (NOVOLOG 39 Medical FLEXPEN Branch U-100 INSULIN) 100 unit/mL (3 mL) injection carvediloL 2020-0 Yes 25mg Take 25 mg [facility] 25 mg 3-07 by mouth 2 ity of tablet 01:16: (two) [place] 39 times Medical daily with Branch meals. proMETHazin 2020-0 Yes 12.5mg Take 12.5 [facility] e 25 mg 3-07 mg by ity of tablet 01:16: mouth 3 [place] 39 (three) Medical times Branch daily as needed for Nausea and Vomiting (N/V). insulin 2020-0 Yes inject [facility] aspart 3-07 under the ity of U-100 01:16: skin. [place] (NOVOLOG 39 Medical FLEXPEN Branch U-100 INSULIN) 100 unit/mL (3 mL) injection carvediloL 2020-0 Yes 25mg Take 25 mg [facility] 25 mg 3-07 by mouth 2 ity of tablet 01:16: (two) [place] 39 times Medical daily with Branch meals. proMETHazin 2020-0 Yes 12.5mg Take 12.5 [facility] e 25 mg 3-07 mg by ity of tablet 01:16: mouth 3 [place] 39 (three) Medical times Branch daily as needed for Nausea and Vomiting (N/V). insulin 2020-0 Yes inject [facility] aspart 3-07 under the ity of U-100 01:16: skin. [place] (NOVOLOG 39 Medical FLEXPEN Branch U-100 INSULIN) 100 unit/mL (3 mL) injection carvediloL 2020-0 Yes 25mg Take 25 mg [facility] 25 mg 3-07 by mouth 2 ity of tablet 01:16: (two) [place] 39 times Medical daily with Branch meals. proMETHazin 2020-0 Yes 12.5mg Take 12.5 [facility] e 25 mg 3-07 mg by ity of tablet 01:16: mouth 3 [place] 39 (three) Medical times Branch daily as needed for Nausea and Vomiting (N/V). insulin 2020-0 Yes inject [facility] aspart 3-07 under the ity of U-100 01:16: skin. [place] (NOVOLOG 39 Medical FLEXPEN Branch U-100 INSULIN) 100 unit/mL (3 mL) injection carvediloL 2020-0 Yes 25mg Take 25 mg [facility] 25 mg 3-07 by mouth 2 ity of tablet 01:16: (two) [place] 39 times Medical daily with Branch meals. proMETHazin 2020-0 Yes 12.5mg Take 12.5 [facility] e 25 mg 3-07 mg by ity of tablet 01:16: mouth 3 [place] [address] (three) Medical times Branch daily as needed for Nausea and Vomiting (N/V). insulin 2020-0 Yes inject [facility] aspart 3-07 under the ity of U-100 01:16: skin. [place] (NOVOLOG 39 Medical FLEXPEN Branch U-100 INSULIN) 100 unit/mL (3 mL) injection carvediloL 2020-0 Yes 25mg Take 25 mg [facility] 25 mg 3-07 by mouth 2 ity of tablet 01:16: (two) [place] 39 times Medical daily with Branch meals. proMETHazin 2020-0 Yes 12.5mg Take 12.5 [facility] e 25 mg 3-07 mg by ity of tablet 01:16: mouth 3 [place] [address] (three) Medical times Branch daily as needed for Nausea and Vomiting (N/V). insulin 2020-0 Yes inject [facility] aspart 3-07 under the ity of U-100 01:16: skin. [place] (NOVOLOG 39 Medical FLEXPEN Branch U-100 INSULIN) 100 unit/mL (3 mL) injection carvediloL 2020-0 Yes 25mg Take 25 mg [facility] 25 mg 3-07 by mouth 2 ity of tablet 01:16: (two) [place] 39 times Medical daily with Branch meals. proMETHazin 2020-0 Yes 12.5mg Take 12.5 [facility] e 25 mg 3-07 mg by ity of tablet 01:16: mouth 3 [place] 39 (three) Medical times Branch daily as needed for Nausea and Vomiting (N/V). insulin 2020-0 Yes inject [facility] aspart 3-07 under the ity of U-100 01:16: skin. [place] (NOVOLOG 39 Medical FLEXPEN Branch U-100 INSULIN) 100 unit/mL (3 mL) injection carvediloL 2020-0 Yes 25mg Take 25 mg [facility] 25 mg 3-07 by mouth 2 ity of tablet 01:16: (two) [place] 39 times Medical daily with Branch meals. proMETHazin 2020-0 Yes 12.5mg Take 12.5 [facility] e 25 mg 3-07 mg by ity of tablet 01:16: mouth 3 [place] [address] (three) Medical times Branch daily as needed for Nausea and Vomiting (N/V). insulin 2020-0 Yes inject [facility] aspart 3-07 under the ity of U-100 01:16: skin. [place] (NOVOLOG 39 Medical FLEXPEN Branch U-100 INSULIN) 100 unit/mL (3 mL) injection carvediloL 2020-0 Yes 25mg Take 25 mg [facility] 25 mg 3-07 by mouth 2 ity of tablet 01:16: (two) [place] 39 times Medical daily with Branch meals. proMETHazin 2020-0 Yes 12.5mg Take 12.5 [facility] e 25 mg 3-07 mg by ity of tablet 01:16: mouth 3 [place] 39 (three) Medical times Branch daily as needed for Nausea and Vomiting (N/V). insulin 2020-0 Yes inject [facility] aspart 3-07 under the ity of U-100 01:16: skin. [place] (NOVOLOG 39 Medical FLEXPEN Branch U-100 INSULIN) 100 unit/mL (3 mL) injection carvediloL 2020-0 Yes 25mg Take 25 mg [facility] 25 mg 3-07 by mouth 2 ity of tablet 01:16: (two) [place] 39 times Medical daily with Branch meals. proMETHazin 2020-0 Yes 12.5mg Take 12.5 [facility] e 25 mg 3-07 mg by ity of tablet 01:16: mouth 3 [place] 39 (three) Medical times Branch daily as needed for Nausea and Vomiting (N/V). insulin 2020-0 Yes inject [facility] aspart 3-07 under the ity of U-100 01:16: skin. [place] (NOVOLOG 39 Medical FLEXPEN Branch U-100 INSULIN) 100 unit/mL (3 mL) injection carvediloL 2020-0 Yes 25mg Take 25 mg [facility] 25 mg 3-07 by mouth 2 ity of tablet 01:16: (two) [place] 39 times Medical daily with Branch meals. proMETHazin 2020-0 Yes 12.5mg Take 12.5 [facility] e 25 mg 3-07 mg by ity of tablet 01:16: mouth 3 [place] [address] (three) Medical times Branch daily as needed for Nausea and Vomiting (N/V). insulin 2020-0 Yes inject [facility] aspart 3-07 under the ity of U-100 01:16: skin. [place] (NOVOLOG 39 Medical FLEXPEN Branch U-100 INSULIN) 100 unit/mL (3 mL) injection carvediloL 2020-0 Yes 25mg Take 25 mg [facility] 25 mg 3-07 by mouth 2 ity of tablet 01:16: (two) [place] [address] times Medical daily with Branch meals. proMETHazin 2020-0 Yes 12.5mg Take 12.5 [facility] e 25 mg 3-07 mg by ity of tablet 01:16: mouth 3 [place] [address] (three) Medical times Branch daily as needed for Nausea and Vomiting (N/V). insulin 2020-0 Yes inject [facility] aspart 3-07 under the ity of U-100 01:16: skin. [place] (NOVOLOG 39 Medical FLEXPEN Branch U-100 INSULIN) 100 unit/mL (3 mL) injection carvediloL 2020-0 Yes 25mg Take 25 mg [facility] 25 mg 3-07 by mouth 2 ity of tablet 01:16: (two) [place] 39 times Medical daily with Branch meals. proMETHazin 2020-0 Yes 12.5mg Take 12.5 [facility] e 25 mg 3-07 mg by ity of tablet 01:16: mouth 3 [place] 39 (three) Medical times Branch daily as needed for Nausea and Vomiting (N/V). insulin 2020-0 Yes inject [facility] aspart 3-07 under the ity of U-100 01:16: skin. [place] (NOVOLOG 39 Medical FLEXPEN Branch U-100 INSULIN) 100 unit/mL (3 mL) injection carvediloL 2020-0 Yes 25mg Take 25 mg [facility] 25 mg 3-07 by mouth 2 ity of tablet 01:16: (two) [place] 39 times Medical daily with Branch meals. proMETHazin 2020-0 Yes 12.5mg Take 12.5 [facility] e 25 mg 3-07 mg by ity of tablet 01:16: mouth 3 [place] 39 (three) Medical times Branch daily as needed for Nausea and Vomiting (N/V). insulin 2020-0 Yes inject [facility] aspart 3-07 under the ity of U-100 01:16: skin. [place] (NOVOLOG 39 Medical FLEXPEN Branch U-100 INSULIN) 100 unit/mL (3 mL) injection carvediloL 2020-0 Yes 25mg Take 25 mg [facility] 25 mg 3-07 by mouth 2 ity of tablet 01:16: (two) [place] 39 times Medical daily with Branch meals. proMETHazin 2020-0 Yes 12.5mg Take 12.5 [facility] e 25 mg 3-07 mg by ity of tablet 01:16: mouth 3 [place] 39 (three) Medical times Branch daily as needed for Nausea and Vomiting (N/V). insulin 2020-0 Yes inject [facility] aspart 3-07 under the ity of U-100 01:16: skin. [place] (NOVOLOG 39 Medical FLEXPEN Branch U-100 INSULIN) 100 unit/mL (3 mL) injection carvediloL 2020-0 Yes 25mg Take 25 mg [facility] 25 mg 3-07 by mouth 2 ity of tablet 01:16: (two) [place] 39 times Medical daily with Branch meals. proMETHazin 2020-0 Yes 12.5mg Take 12.5 [facility] e 25 mg 3-07 mg by ity of tablet 01:16: mouth 3 [place] 39 (three) Medical times Branch daily as needed for Nausea and Vomiting (N/V). insulin 2020-0 Yes inject [facility] aspart 3-07 under the ity of U-100 01:16: skin. [place] (NOVOLOG 39 Medical FLEXPEN Branch U-100 INSULIN) 100 unit/mL (3 mL) injection carvediloL 2020-0 Yes 25mg Take 25 mg [facility] 25 mg 3-07 by mouth 2 ity of tablet 01:16: (two) [place] 39 times Medical daily with Branch meals. proMETHazin 2020-0 Yes 12.5mg Take 12.5 [facility] e 25 mg 3-07 mg by ity of tablet 01:16: mouth 3 [place] 39 (three) Medical times Branch daily as needed for Nausea and Vomiting (N/V). insulin 2020-0 Yes inject [facility] aspart 3-07 under the ity of U-100 01:16: skin. [place] (NOVOLOG 39 Medical FLEXPEN Branch U-100 INSULIN) 100 unit/mL (3 mL) injection carvediloL 2020-0 Yes 25mg Take 25 mg [facility] 25 mg 3-07 by mouth 2 ity of tablet 01:16: (two) [place] 39 times Medical daily with Branch meals. proMETHazin 2020-0 Yes 12.5mg Take 12.5 [facility] e 25 mg 3-07 mg by ity of tablet 01:16: mouth 3 [place] 39 (three) Medical times Branch daily as needed for Nausea and Vomiting (N/V). insulin 2020-0 Yes inject [facility] aspart 3-07 under the ity of U-100 01:16: skin. [place] (NOVOLOG 39 Medical FLEXPEN Branch U-100 INSULIN) 100 unit/mL (3 mL) injection carvediloL 2020-0 Yes 25mg Take 25 mg [facility] 25 mg 3-07 by mouth 2 ity of tablet 01:16: (two) [place] 39 times Medical daily with Branch meals. proMETHazin 2020-0 Yes 12.5mg Take 12.5 [facility] e 25 mg 3-07 mg by ity of tablet 01:16: mouth 3 [place] 39 (three) Medical times Branch daily as needed for Nausea and Vomiting (N/V). insulin 2020-0 Yes inject [facility] aspart 3-07 under the ity of U-100 01:16: skin. [place] (NOVOLOG 39 Medical FLEXPEN Branch U-100 INSULIN) 100 unit/mL (3 mL) injection carvediloL 2020-0 Yes 25mg Take 25 mg [facility] 25 mg 3-07 by mouth 2 ity of tablet 01:16: (two) [place] 39 times Medical daily with Branch meals. proMETHazin 2020-0 Yes 12.5mg Take 12.5 [facility] e 25 mg 3-07 mg by ity of tablet 01:16: mouth 3 [place] 39 (three) Medical times Branch daily as needed for Nausea and Vomiting (N/V). insulin 2020-0 Yes inject [facility] aspart 3-07 under the ity of U-100 01:16: skin. [place] (NOVOLOG 39 Medical FLEXPEN Branch U-100 INSULIN) 100 unit/mL (3 mL) injection carvediloL 2020-0 Yes 25mg Take 25 mg [facility] 25 mg 3-07 by mouth 2 ity of tablet 01:16: (two) [place] 39 times Medical daily with Branch meals. proMETHazin 2020-0 Yes 12.5mg Take 12.5 [facility] e 25 mg 3-07 mg by ity of tablet 01:16: mouth 3 [place] 39 (three) Medical times Branch daily as needed for Nausea and Vomiting (N/V). insulin 2020-0 Yes inject [facility] aspart 3-07 under the ity of U-100 01:16: skin. [place] (NOVOLOG 39 Medical FLEXPEN Branch U-100 INSULIN) 100 unit/mL (3 mL) injection carvediloL 2020-0 Yes 25mg Take 25 mg [facility] nivers 25 mg 3-07 by mouth 2 ity of tablet 01:16: (two) [place] 39 times Medical daily with Branch meals. proMETHazin 2020-0 Yes 12.5mg Take 12.5 [facility] e 25 mg 3-07 mg by ity of tablet 01:16: mouth 3 [place] [address] (three) Medical times Branch daily as needed for Nausea and Vomiting (N/V). insulin 2020-0 Yes inject [facility] aspart 3-07 under the ity of U-100 01:16: skin. [place] (NOVOLOG 39 Medical FLEXPEN Branch U-100 INSULIN) 100 unit/mL (3 mL) injection carvediloL 2020-0 Yes 25mg Take 25 mg [facility] nivers 25 mg 3-07 by mouth 2 ity of tablet 01:16: (two) [place] 39 times Medical daily with Branch meals. proMETHazin 2020-0 Yes 12.5mg Take 12.5 [facility] e 25 mg 3-07 mg by ity of tablet 01:16: mouth 3 [place] [address] (three) Medical times Branch daily as needed for Nausea and Vomiting (N/V). insulin 2020-0 Yes inject [facility] aspart 3-07 under the ity of U-100 01:16: skin. [place] (NOVOLOG 39 Medical FLEXPEN Branch U-100 INSULIN) 100 unit/mL (3 mL) injection carvediloL 2020-0 Yes 25mg Take 25 mg [facility]ivers 25 mg 3-07 by mouth 2 ity of tablet 01:16: (two) [place] 39 times Medical daily with Branch meals. proMETHazin 2020-0 Yes 12.5mg Take 12.5 [facility] e 25 mg 3-07 mg by ity of tablet 01:16: mouth 3 [place] 39 (three) Medical times Branch daily as needed for Nausea and Vomiting (N/V). insulin 2020-0 Yes inject [facility] aspart 3-07 under the ity of U-100 01:16: skin. [place] (NOVOLOG 39 Medical FLEXPEN Branch U-100 INSULIN) 100 unit/mL (3 mL) injection carvediloL 2020-0 Yes 25mg Take 25 mg [facility]ivers 25 mg 3-07 by mouth 2 ity of tablet 01:16: (two) [place] 39 times Medical daily with Branch meals. proMETHazin 2020-0 Yes 12.5mg Take 12.5 [facility] e 25 mg 3-07 mg by ity of tablet 01:16: mouth 3 [place] [address] (three) Medical times Branch daily as needed for Nausea and Vomiting (N/V). insulin 2020-0 Yes inject [facility] aspart 3-07 under the ity of U-100 01:16: skin. [place] (NOVOLOG 39 Medical FLEXPEN Branch U-100 INSULIN) 100 unit/mL (3 mL) injection carvediloL 2020-0 Yes 25mg Take 25 mg [facility] nivers 25 mg 3-07 by mouth 2 ity of tablet 01:16: (two) [place] 39 times Medical daily with Branch meals. proMETHazin 2020-0 Yes 12.5mg Take 12.5 [facility] e 25 mg 3-07 mg by ity of tablet 01:16: mouth 3 [place] [address] (three) Medical times Branch daily as needed for Nausea and Vomiting (N/V). insulin 2020-0 Yes inject [facility] aspart 3-07 under the ity of U-100 01:16: skin. [place] (NOVOLOG 39 Medical FLEXPEN Branch U-100 INSULIN) 100 unit/mL (3 mL) injection carvediloL 2020-0 Yes 25mg Take 25 mg [facility] nivers 25 mg 3-07 by mouth 2 ity of tablet 01:16: (two) [place] 39 times Medical daily with Branch meals. proMETHazin 2020-0 Yes 12.5mg Take 12.5 [facility] e 25 mg 3-07 mg by ity of tablet 01:16: mouth 3 [place] 39 (three) Medical times Branch daily as needed for Nausea and Vomiting (N/V). insulin 2020-0 Yes inject [facility] aspart 3-07 under the ity of U-100 01:16: skin. [place] (NOVOLOG 39 Medical FLEXPEN Branch U-100 INSULIN) 100 unit/mL (3 mL) injection carvediloL 2020-0 Yes 25mg Take 25 mg [facility] nivers 25 mg 3-07 by mouth 2 ity of tablet 01:16: (two) [place] 39 times Medical daily with Branch meals. proMETHazin 2020-0 Yes 12.5mg Take 12.5 [facility] e 25 mg 3-07 mg by ity of tablet 01:16: mouth 3 [place] [address] (three) Medical times Branch daily as needed for Nausea and Vomiting (N/V). insulin 2020-0 Yes inject [facility] aspart 3-07 under the ity of U-100 01:16: skin. [place] (NOVOLOG 39 Medical FLEXPEN Branch U-100 INSULIN) 100 unit/mL (3 mL) injection carvediloL 2020-0 Yes 25mg Take 25 mg [facility] nivers 25 mg 3-07 by mouth 2 ity of tablet 01:16: (two) [place] [address] times Medical daily with Branch meals. proMETHazin 2020-0 Yes 12.5mg Take 12.5 [facility] e 25 mg 3-07 mg by ity of tablet 01:16: mouth 3 [place] [address] (three) Medical times Branch daily as needed for Nausea and Vomiting (N/V). insulin 2020-0 Yes inject [facility] aspart 3-07 under the ity of U-100 01:16: skin. [place] (NOVOLOG 39 Medical FLEXPEN Branch U-100 INSULIN) 100 unit/mL (3 mL) injection carvediloL 2020-0 Yes 25mg Take 25 mg [facility] nivers 25 mg 3-07 by mouth 2 ity of tablet 01:16: (two) [place] 39 times Medical daily with Branch meals. proMETHazin 2020-0 Yes 12.5mg Take 12.5 [facility] e 25 mg 3-07 mg by ity of tablet 01:16: mouth 3 [place] 39 (three) Medical times Branch daily as needed for Nausea and Vomiting (N/V). insulin 2020-0 Yes inject [facility] aspart 3-07 under the ity of U-100 01:16: skin. [place] (NOVOLOG 39 Medical FLEXPEN Branch U-100 INSULIN) 100 unit/mL (3 mL) injection carvediloL 2020-0 Yes 25mg Take 25 mg [facility] nivers 25 mg 3-07 by mouth 2 ity of tablet 01:16: (two) [place] 39 times Medical daily with Branch meals. proMETHazin 2020-0 Yes 12.5mg Take 12.5 [facility] e 25 mg 3-07 mg by ity of tablet 01:16: mouth 3 [place] 39 (three) Medical times Branch daily as needed for Nausea and Vomiting (N/V). insulin 2020-0 Yes inject [facility] aspart 3-07 under the ity of U-100 01:16: skin. [place] (NOVOLOG 39 Medical FLEXPEN Branch U-100 INSULIN) 100 unit/mL (3 mL) injection carvediloL 2020-0 Yes 25mg Take 25 mg [facility] nivers 25 mg 3-07 by mouth 2 ity of tablet 01:16: (two) [place] 39 times Medical daily with Branch meals. proMETHazin 2020-0 Yes 12.5mg Take 12.5 [facility] e 25 mg 3-07 mg by ity of tablet 01:16: mouth 3 [place] 39 (three) Medical times Branch daily as needed for Nausea and Vomiting (N/V). insulin 2020-0 Yes inject [facility] aspart 3-07 under the ity of U-100 01:16: skin. [place] (NOVOLOG 39 Medical FLEXPEN Branch U-100 INSULIN) 100 unit/mL (3 mL) injection carvediloL 2020-0 Yes 25mg Take 25 mg [facility] nivers 25 mg 3-07 by mouth 2 ity of tablet 01:16: (two) [place] 39 times Medical daily with Branch meals. proMETHazin 2020-0 Yes 12.5mg Take 12.5 [facility] e 25 mg 3-07 mg by ity of tablet 01:16: mouth 3 [place] 39 (three) Medical times Branch daily as needed for Nausea and Vomiting (N/V). insulin 2020-0 Yes inject [facility] aspart 3-07 under the ity of U-100 01:16: skin. [place] (NOVOLOG 39 Medical FLEXPEN Branch U-100 INSULIN) 100 unit/mL (3 mL) injection carvediloL 2020-0 Yes 25mg Take 25 mg [facility] nivers 25 mg 3-07 by mouth 2 ity of tablet 01:16: (two) [place] 39 times Medical daily with Branch meals. proMETHazin 2020-0 Yes 12.5mg Take 12.5 [facility] e 25 mg 3-07 mg by ity of tablet 01:16: mouth 3 [place] 39 (three) Medical times Branch daily as needed for Nausea and Vomiting (N/V). insulin 2020-0 Yes inject [facility] aspart 3-07 under the ity of U-100 01:16: skin. [place] (NOVOLOG 39 Medical FLEXPEN Branch U-100 INSULIN) 100 unit/mL (3 mL) injection carvediloL 2020-0 Yes 25mg Take 25 mg [facility] nivers 25 mg 3-07 by mouth 2 ity of tablet 01:16: (two) [place] 39 times Medical daily with Branch meals. proMETHazin 2020-0 Yes 12.5mg Take 12.5 [facility] e 25 mg 3-07 mg by ity of tablet 01:16: mouth 3 [place] 39 (three) Medical times Branch daily as needed for Nausea and Vomiting (N/V). insulin 2020-0 Yes inject [facility] aspart 3-07 under the ity of U-100 01:16: skin. [place] (NOVOLOG 39 Medical FLEXPEN Branch U-100 INSULIN) 100 unit/mL (3 mL) injection carvediloL 2020-0 Yes 25mg Take 25 mg [facility] nivers 25 mg 3-07 by mouth 2 ity of tablet 01:16: (two) [place] 39 times Medical daily with Branch meals. proMETHazin 2020-0 Yes 12.5mg Take 12.5 [facility] e 25 mg 3-07 mg by ity of tablet 01:16: mouth 3 [place] 39 (three) Medical times Branch daily as needed for Nausea and Vomiting (N/V). insulin 2020-0 Yes inject [facility] aspart 3-07 under the ity of U-100 01:16: skin. [place] (NOVOLOG 39 Medical FLEXPEN Branch U-100 INSULIN) 100 unit/mL (3 mL) injection carvediloL 2020-0 Yes 25mg Take 25 mg [facility] nivers 25 mg 3-07 by mouth 2 ity of tablet 01:16: (two) [place] 39 times Medical daily with Branch meals. proMETHazin 2020-0 Yes 12.5mg Take 12.5 [facility] e 25 mg 3-07 mg by ity of tablet 01:16: mouth 3 [place] 39 (three) Medical times Branch daily as needed for Nausea and Vomiting (N/V). insulin 2020-0 Yes inject [facility] aspart 3-07 under the ity of U-100 01:16: skin. [place] (NOVOLOG 39 Medical FLEXPEN Branch U-100 INSULIN) 100 unit/mL (3 mL) injection carvediloL 2020-0 Yes 25mg Take 25 mg [facility] nivers 25 mg 3-07 by mouth 2 ity of tablet 01:16: (two) [place] 39 times Medical daily with Branch meals. proMETHazin 2020-0 Yes 12.5mg Take 12.5 [facility] e 25 mg 3-07 mg by ity of tablet 01:16: mouth 3 [place] 39 (three) Medical times Branch daily as needed for Nausea and Vomiting (N/V). insulin 2020-0 Yes inject [facility] aspart 3-07 under the ity of U-100 01:16: skin. [place] (NOVOLOG 39 Medical FLEXPEN Branch U-100 INSULIN) 100 unit/mL (3 mL) injection carvediloL 2020-0 Yes 25mg Take 25 mg [facility] nivers 25 mg 3-07 by mouth 2 ity of tablet 01:16: (two) [place] 39 times Medical daily with Branch meals. proMETHazin 2020-0 Yes 12.5mg Take 12.5 [facility] e 25 mg 3-07 mg by ity of tablet 01:16: mouth 3 [place] [address] (three) Medical times Branch daily as needed for Nausea and Vomiting (N/V). insulin 2020-0 Yes inject [facility] aspart 3-07 under the ity of U-100 01:16: skin. [place] (NOVOLOG 39 Medical FLEXPEN Branch U-100 INSULIN) 100 unit/mL (3 mL) injection carvediloL 2020-0 Yes 25mg Take 25 mg [facility] nivers 25 mg 3-07 by mouth 2 ity of tablet 01:16: (two) [place] 39 times Medical daily with Branch meals. proMETHazin 2020-0 Yes 12.5mg Take 12.5 [facility] e 25 mg 3-07 mg by ity of tablet 01:16: mouth 3 [place] [address] (three) Medical times Branch daily as needed for Nausea and Vomiting (N/V). insulin 2020-0 Yes inject [facility] aspart 3-07 under the ity of U-100 01:16: skin. [place] (NOVOLOG 39 Medical FLEXPEN Branch U-100 INSULIN) 100 unit/mL (3 mL) injection carvediloL 2020-0 Yes 25mg Take 25 mg [facility] nivers 25 mg 3-07 by mouth 2 ity of tablet 01:16: (two) [place] 39 times Medical daily with Branch meals. proMETHazin 2020-0 Yes 12.5mg Take 12.5 [facility] e 25 mg 3-07 mg by ity of tablet 01:16: mouth 3 [place] 39 (three) Medical times Branch daily as needed for Nausea and Vomiting (N/V). insulin 2020-0 Yes inject [facility] aspart 3-07 under the ity of U-100 01:16: skin. [place] (NOVOLOG 39 Medical FLEXPEN Branch U-100 INSULIN) 100 unit/mL (3 mL) injection carvediloL 2020-0 Yes 25mg Take 25 mg [facility] nivers 25 mg 3-07 by mouth 2 ity of tablet 01:16: (two) [place] 39 times Medical daily with Branch meals. proMETHazin 2020-0 Yes 12.5mg Take 12.5 [facility] e 25 mg 3-07 mg by ity of tablet 01:16: mouth 3 [place] [address] (three) Medical times Branch daily as needed for Nausea and Vomiting (N/V). insulin 2020-0 Yes inject [facility] aspart 3-07 under the ity of U-100 01:16: skin. [place] (NOVOLOG 39 Medical FLEXPEN Branch U-100 INSULIN) 100 unit/mL (3 mL) injection carvediloL 2020-0 Yes 25mg Take 25 mg U nivers 25 mg 3-07 by mouth 2 ity of tablet 01:16: (two) [place] 39 times Medical daily with Branch meals. proMETHazin 2020-0 Yes 12.5mg Take 12.5 [facility] e 25 mg 3-07 mg by ity of tablet 01:16: mouth 3 [place] [address] (three) Medical times Branch daily as needed for Nausea and Vomiting (N/V). insulin 2020-0 Yes inject [facility] aspart 3-07 under the ity of U-100 01:16: skin. [place] (NOVOLOG 39 Medical FLEXPEN Branch U-100 INSULIN) 100 unit/mL (3 mL) injection carvediloL 2020-0 Yes 25mg Take 25 mg [facility] nivers 25 mg 3-07 by mouth 2 ity of tablet 01:16: (two) [place] 39 times Medical daily with Branch meals. proMETHazin 2020-0 Yes 12.5mg Take 12.5 [facility] e 25 mg 3-07 mg by ity of tablet 01:16: mouth 3 [place] 39 (three) Medical times Branch daily as needed for Nausea and Vomiting (N/V). insulin 2020-0 Yes inject [facility] aspart 3-07 under the ity of U-100 01:16: skin. [place] (NOVOLOG 39 Medical FLEXPEN Branch U-100 INSULIN) 100 unit/mL (3 mL) injection carvediloL 2020-0 Yes 25mg Take 25 mg [facility] nivers 25 mg 3-07 by mouth 2 ity of tablet 01:16: (two) [place] 39 times Medical daily with Branch meals. proMETHazin 2020-0 Yes 12.5mg Take 12.5 [facility] e 25 mg 3-07 mg by ity of tablet 01:16: mouth 3 [place] [address] (three) Medical times Branch daily as needed for Nausea and Vomiting (N/V). insulin 2020-0 Yes inject [facility] aspart 3-07 under the ity of U-100 01:16: skin. [place] (NOVOLOG 39 Medical FLEXPEN Branch U-100 INSULIN) 100 unit/mL (3 mL) injection carvediloL 2020-0 Yes 25mg Take 25 mg U nivers 25 mg 3-07 by mouth 2 ity of tablet 01:16: (two) [place] 39 times Medical daily with Branch meals. proMETHazin 2020-0 Yes 12.5mg Take 12.5 [facility] e 25 mg 3-07 mg by ity of tablet 01:16: mouth 3 [place] [address] (three) Medical times Branch daily as needed for Nausea and Vomiting (N/V). insulin 2020-0 Yes inject [facility] aspart 3-07 under the ity of U-100 01:16: skin. [place] (NOVOLOG 39 Medical FLEXPEN Branch U-100 INSULIN) 100 unit/mL (3 mL) injection carvediloL 2020-0 Yes 25mg Take 25 mg U nivers 25 mg 3-07 by mouth 2 ity of tablet 01:16: (two) [place] 39 times Medical daily with Branch meals. proMETHazin 2020-0 Yes 12.5mg Take 12.5 [facility] e 25 mg 3-07 mg by ity of tablet 01:16: mouth 3 [place] 39 (three) Medical times Branch daily as needed for Nausea and Vomiting (N/V). insulin 2020-0 Yes inject [facility] aspart 3-07 under the ity of U-100 01:16: skin. [place] (NOVOLOG 39 Medical FLEXPEN Branch U-100 INSULIN) 100 unit/mL (3 mL) injection carvediloL 2020-0 Yes 25mg Take 25 mg U nivers 25 mg 3-07 by mouth 2 ity of tablet 01:16: (two) [place] 39 times Medical daily with Branch meals. proMETHazin 2020-0 Yes 12.5mg Take 12.5 [facility] e 25 mg 3-07 mg by ity of tablet 01:16: mouth 3 [place] 39 (three) Medical times Branch daily as needed for Nausea and Vomiting (N/V). insulin 2020-0 Yes inject [facility] aspart 3-07 under the ity of U-100 01:16: skin. [place] (NOVOLOG 39 Medical FLEXPEN Branch U-100 INSULIN) 100 unit/mL (3 mL) injection carvediloL 2020-0 Yes 25mg Take 25 mg U nivers 25 mg 3-07 by mouth 2 ity of tablet 01:16: (two) [place] 39 times Medical daily with Branch meals. proMETHazin 2020-0 Yes 12.5mg Take 12.5 [facility] e 25 mg 3-07 mg by ity of tablet 01:16: mouth 3 [place] 39 (three) Medical times Branch daily as needed for Nausea and Vomiting (N/V). insulin 2020-0 Yes inject [facility] aspart 3-07 under the ity of U-100 01:16: skin. [place] (NOVOLOG 39 Medical FLEXPEN Branch U-100 INSULIN) 100 unit/mL (3 mL) injection carvediloL 2020-0 Yes 25mg Take 25 mg U nivers 25 mg 3-07 by mouth 2 ity of tablet 01:16: (two) [place] 39 times Medical daily with Branch meals. proMETHazin 2020-0 Yes 12.5mg Take 12.5 [facility] e 25 mg 3-07 mg by ity of tablet 01:16: mouth 3 [place] 39 (three) Medical times Branch daily as needed for Nausea and Vomiting (N/V). insulin 2020-0 Yes inject [facility] aspart 3-07 under the ity of U-100 01:16: skin. [place] (NOVOLOG 39 Medical FLEXPEN Branch U-100 INSULIN) 100 unit/mL (3 mL) injection carvediloL 2020-0 Yes 25mg Take 25 mg U nivers 25 mg 3-07 by mouth 2 ity of tablet 01:16: (two) [place] 39 times Medical daily with Branch meals. proMETHazin 2020-0 Yes 12.5mg Take 12.5 [facility] e 25 mg 3-07 mg by ity of tablet 01:16: mouth 3 [place] 39 (three) Medical times Branch daily as needed for Nausea and Vomiting (N/V). insulin 2020-0 Yes inject [facility] aspart 3-07 under the ity of U-100 01:16: skin. [place] (NOVOLOG 39 Medical FLEXPEN Branch U-100 INSULIN) 100 unit/mL (3 mL) injection carvediloL 2020-0 Yes 25mg Take 25 mg U nivers 25 mg 3-07 by mouth 2 ity of tablet 01:16: (two) [place] 39 times Medical daily with Branch meals. proMETHazin 2020-0 Yes 12.5mg Take 12.5 [facility] e 25 mg 3-07 mg by ity of tablet 01:16: mouth 3 [place] 39 (three) Medical times Branch daily as needed for Nausea and Vomiting (N/V). insulin 2020-0 Yes inject [facility] aspart 3-07 under the ity of U-100 01:16: skin. [place] (NOVOLOG 39 [facility] FLEXPEN Branch U-100 INSULIN) 100 unit/mL (3 mL) injection carvediloL 2020-0 Yes 25mg Take 25 mg U nivers 25 mg 3-07 by mouth 2 ity of tablet 01:16: (two) [place] 39 times Medical daily with Branch meals. proMETHazin 2020-0 Yes 12.5mg Take 12.5 [facility] e 25 mg 3-07 mg by ity of tablet 01:16: mouth 3 [place] 39 (three) Medical times Branch daily as needed for Nausea and Vomiting (N/V). insulin 2020-0 Yes inject [facility] aspart 3-07 under the ity of U-100 01:16: skin. [place] (NOVOLOG 39 Medical FLEXPEN Branch U-100 INSULIN) 100 unit/mL (3 mL) injection pregabalin 2020-0 2020- No 300mg Take 300 U nivers 300 mg 3-07 03-06 mg by ity of capsule 01:15: 00:00 mouth. [place] 02 :00 Medical Branch nitroglycer 2020-0 2020- No .3mg Place 0.3 [facility] in 0.3 mg 3-07 03-06 mg under ity o f sublingual 01:14: 00:00 the tongue [place] tablet 27 :00 every 5 Medical (five) Branch minutes as needed for Chest pain. losartan-hy 2020-0 2020- No Take by U nivers drochloroth 04-20 03-06 mouth. ity o f iazide 01:14: 00:00 [place] 100-25 mg 09 :00 Medical per tablet Branch insulin 0 2020- No inject [facility] lispro, 04-20-06 under the ity of human, 100 01:14: 00:00 skin. [place] unit/mL 06 :00 Medical injection Branch acetaminoph 2020- No 500mg Take 500 [facility] en (TYLENOL 04-20 03-06 mg by ity of EXTRA 01:12: 00:00 mouth [place] STRENGTH) 31 :00 every 6 Medical 500 mg (six) Branch tablet hours as needed for Pain. Insulin 2019-0 Yes inject [facility] Detemir 100 3-07 under [...] mg by ity of capsule 00:22: mouth. [place] 08 Medical Branch acetaminoph 2020-0 Yes 500mg [...] 3-07 by mouth. ity of tablet 00:22: [place] 08 Medical Branch proMETHazin 2020-0 Yes 12.5mg Take 12.5 [facility] e 25 mg 3-07 mg by ity of tablet 00:22: mouth [place] 08 every 6 Medical (six) Branch hours as needed for Nausea and Vomiting (N/V). insulin 2020-0 Yes inject [facility] aspart 3-07 under the ity of U-100 00:22: skin. [place] (NOVOLOG 08 Medical FLEXPEN Branch U-100 INSULIN) [...] by ity of capsule 00:13: mouth 2 [place] 40 (two) Medical times Branch daily. gabapentin 2020-0 Yes 100mg Take 100 Un osbaldo 100 mg 3-07 mg by ity of capsule 00:13: mouth 2 [place] 40 (two) Medical times Branch daily. gabapentin 2020-0 Yes 100mg Take 100 Un osbaldo 100 mg 3-07 mg by ity of capsule 00:13: mouth 2 [place] 40 (two) Medical times Branch daily. gabapentin 2020-0 Yes 100mg Take 100 Un osbaldo 100 mg 3-07 mg by ity of capsule 00:13: mouth 2 [place] 40 (two) Medical times Branch daily. gabapentin 2020-0 Yes 100mg Take 100 Un osbaldo 100 mg 3-07 mg by ity of capsule 00:13: mouth 2 [place] 40 (two) Medical times Branch daily. gabapentin 2020-0 Yes 100mg Take 100 Un osbaldo 100 mg 3-07 mg by ity of capsule 00:13: mouth 2 [place] 40 (two) Medical times Branch daily. gabapentin 2020-0 Yes 100mg Take 100 Un osbaldo 100 mg 3-07 mg by ity of capsule 00:13: mouth 2 [place] 40 (two) Medical times Branch daily. gabapentin 2020-0 Yes 100mg Take 100 Un osbaldo 100 mg 3-07 mg by ity of capsule 00:13: mouth [address] [place] [id number] 40 (two) Medical times Branch daily. gabapentin 2020-0 Yes 100mg Take 100 Un osbaldo 100 mg 3-07 mg by ity of capsule 00:13: mouth [address] [place] [address] 40 (two) Medical times Branch daily. gabapentin 2020-0 Yes 100mg Take 100 Un osbaldo 100 mg 3-07 mg by ity of capsule 00:13: mouth [address] [place] [address] 40 (two) Medical times Branch daily. gabapentin 2020-0 Yes 100mg Take 100 Un osbaldo 100 mg 3-07 mg by ity of capsule 00:13: mouth [address] [place] [address] 40 (two) Medical times Branch daily. gabapentin 2020-0 Yes 100mg Take 100 Un osbaldo 100 mg 3-07 mg by ity of capsule 00:13: mouth [address] [place] [address] 40 (two) Medical times Branch daily. gabapentin 2020-0 Yes 100mg Take 100 Un osbaldo 100 mg 3-07 mg by ity of capsule 00:13: mouth 2 [place] 40 (two) Medical times Branch daily. gabapentin 2020-0 Yes 100mg Take 100 Un osbaldo 100 mg 3-07 mg by ity of capsule 00:13: mouth [address] [place] [address] 40 (two) Medical times Branch daily. gabapentin 2020-0 Yes 100mg Take 100 Un osbaldo 100 mg 3-07 mg by ity of capsule 00:13: mouth 2 [place] 40 (two) Medical times Branch daily. gabapentin 2020-0 Yes 100mg Take 100 Un osbaldo 100 mg 3-07 mg by ity of capsule 00:13: mouth 2 [place] 40 (two) Medical times Branch daily. gabapentin 2020-0 Yes 100mg Take 100 Un osbaldo 100 mg 3-07 mg by ity of capsule 00:13: mouth 2 [place] 40 (two) Medical times Branch daily. gabapentin 2020-0 Yes 100mg Take 100 Un osbaldo 100 mg 3-07 mg by ity of capsule 00:13: mouth 2 [place] 40 (two) Medical times Branch daily. gabapentin 2020-0 Yes 100mg Take 100 Un osbaldo 100 mg 3-07 mg by ity of capsule 00:13: mouth 2 [place] 40 (two) Medical times Branch daily. gabapentin 2020-0 Yes 100mg Take 100 Un osbaldo 100 mg 3-07 mg by ity of capsule 00:13: mouth 2 [place] 40 (two) Medical times Branch daily. gabapentin 2020-0 Yes 100mg Take 100 Un osbaldo 100 mg 3-07 mg by ity of capsule 00:13: mouth [address] [place] [id number] 40 (two) Medical times Branch daily. gabapentin 2020-0 Yes 100mg Take 100 Un osbaldo 100 mg 3-07 mg by ity of capsule 00:13: mouth [address] [place] [address] 40 (two) Medical times Branch daily. gabapentin 2020-0 Yes 100mg Take 100 Un osbaldo 100 mg 3-07 mg by ity of capsule 00:13: mouth [address] [place] [address] 40 (two) Medical times Branch daily. gabapentin 2020-0 Yes 100mg Take 100 Un osbaldo 100 mg 3-07 mg by ity of capsule 00:13: mouth [address] [place] [address] 40 (two) Medical times Branch daily. gabapentin 2020-0 Yes 100mg Take 100 Un osbaldo 100 mg 3-07 mg by ity of capsule 00:13: mouth [address] [place] [address] 40 (two) Medical times Branch daily. gabapentin 2020-0 Yes 100mg Take 100 Un osbaldo 100 mg 3-07 mg by ity of capsule 00:13: mouth 2 [place] 40 (two) Medical times Branch daily. gabapentin 2020-0 Yes 100mg Take 100 Un osbaldo 100 mg 3-07 mg by ity of capsule 00:13: mouth [address] [place] [address] 40 (two) Medical times Branch daily. gabapentin 2020-0 Yes 100mg Take 100 Un osbaldo 100 mg 3-07 mg by ity of capsule 00:13: mouth 2 [place] 40 (two) Medical times Branch daily. gabapentin 2020-0 Yes 100mg Take 100 Un osbaldo 100 mg 3-07 mg by ity of capsule 00:13: mouth 2 [place] 40 (two) Medical times Branch daily. gabapentin 2020-0 Yes 100mg Take 100 Un osbaldo 100 mg 3-07 mg by ity of capsule 00:13: mouth 2 [place] 40 (two) Medical times Branch daily. gabapentin 2020-0 Yes 100mg Take 100 Un osbaldo 100 mg 3-07 mg by ity of capsule 00:13: mouth 2 [place] 40 (two) Medical times Branch daily. gabapentin 2020-0 Yes 100mg Take 100 Un osbaldo 100 mg 3-07 mg by ity of capsule 00:13: mouth 2 [place] 40 (two) Medical times Branch daily. gabapentin 2020-0 Yes 100mg Take 100 Un osbaldo 100 mg 3-07 mg by ity of capsule 00:13: mouth 2 [place] 40 (two) Medical times Branch daily. gabapentin 2020-0 Yes 100mg Take 100 Un osbaldo 100 mg 3-07 mg by ity of capsule 00:13: mouth [address] [place] [id number] 40 (two) Medical times Branch daily. gabapentin 2020-0 Yes 100mg Take 100 Un osbaldo 100 mg 3-07 mg by ity of capsule 00:13: mouth [address] [place] [address] 40 (two) Medical times Branch daily. gabapentin 2020-0 Yes 100mg Take 100 Un osbaldo 100 mg 3-07 mg by ity of capsule 00:13: mouth [address] [place] [address] 40 (two) Medical times Branch daily. gabapentin 2020-0 Yes 100mg Take 100 Un osbaldo 100 mg 3-07 mg by ity of capsule 00:13: mouth [address] [place] [address] 40 (two) Medical times Branch daily. gabapentin 2020-0 Yes 100mg Take 100 Un osbaldo 100 mg 3-07 mg by ity of capsule 00:13: mouth [address] [place] [address] 40 (two) Medical times Branch daily. gabapentin 2020-0 Yes 100mg Take 100 Un osbaldo 100 mg 3-07 mg by ity of capsule 00:13: mouth 2 [place] 40 (two) Medical times Branch daily. gabapentin 2020-0 Yes 100mg Take 100 Un osbaldo 100 mg 3-07 mg by ity of capsule 00:13: mouth 2 [place] 40 (two) Medical times Branch daily. gabapentin 2020-0 Yes 100mg Take 100 Un osbaldo 100 mg 3-07 mg by ity of capsule 00:13: mouth 2 [place] 40 (two) Medical times Branch daily. gabapentin 2020-0 Yes 100mg Take 100 Un osbaldo 100 mg 3-07 mg by ity of capsule 00:13: mouth 2 [place] 40 (two) Medical times Branch daily. gabapentin 2020-0 Yes 100mg Take 100 Un osbaldo 100 mg 3-07 mg by ity of capsule 00:13: mouth 2 [place] 40 (two) Medical times Branch daily. gabapentin 2020-0 Yes 100mg Take 100 Un osbaldo 100 mg 3-07 mg by ity of capsule 00:13: mouth 2 [place] 40 (two) Medical times Branch daily. gabapentin 2020-0 Yes 100mg Take 100 Un osbaldo 100 mg 3-07 mg by ity of capsule 00:13: mouth 2 [place] 40 (two) Medical times Branch daily. gabapentin 2020-0 Yes 100mg Take 100 Un osbaldo 100 mg 3-07 mg by ity of capsule 00:13: mouth 2 [place] 40 (two) Medical times Branch daily. gabapentin 2020-0 Yes 100mg Take 100 Un osbaldo 100 mg 3-07 mg by ity of capsule 00:13: mouth [address] [place] [id number] 40 (two) Medical times Branch daily. gabapentin 2020-0 Yes 100mg Take 100 Un osbaldo 100 mg 3-07 mg by ity of capsule 00:13: mouth [address] [place] [address] (two) Medical times Branch daily. gabapentin 2020-0 Yes 100mg Take 100 Un osbaldo 100 mg 3-07 mg by ity of capsule 00:13: mouth [address] [place] [id number] 40 (two) Medical times Branch daily. gabapentin 2020-0 Yes 100mg Take 100 Un osbaldo 100 mg 3-07 mg by ity of capsule 00:13: mouth [address] [place] [address] 40 (two) Medical times Branch daily. gabapentin 2020-0 Yes 100mg Take 100 Un osbaldo 100 mg 3-07 mg by ity of capsule 00:13: mouth [address] [place] [address] 40 (two) Medical times Branch daily. gabapentin 2020-0 Yes 100mg Take 100 Un osbaldo 100 mg 3-07 mg by ity of capsule 00:13: mouth [address] [place] [id number] 40 (two) Medical times Branch daily. gabapentin 2020-0 Yes 100mg Take 100 Un osbaldo 100 mg 3-07 mg by ity of capsule 00:13: mouth [address] [place] [address] 40 (two) Medical times Branch daily. gabapentin 2020-0 Yes 100mg Take 100 Un osbaldo 100 mg 3-07 mg by ity of capsule 00:13: mouth 2 [place] 40 (two) Medical times Branch daily. hydrALAZINE 2020-0 Yes 50mg Take 50 mg [facility] 50 mg 3-07 by mouth 3 ity of tablet 00:01: (three) [place] 47 times Medical daily with Branch meals. hydrALAZINE 2020-0 Yes 50mg Take 50 mg [facility] 50 mg 3-07 by mouth 3 ity of tablet 00:01: (three) [place] 47 times Medical daily with Branch meals. hydrALAZINE 2020-0 Yes 50mg Take 50 mg [facility] 50 mg 3-07 by mouth 3 ity of tablet 00:01: ([facility]) [place] 47 times Medical daily with Branch meals. hydrALAZINE 2020-0 Yes 50mg Take 50 mg [facility] 50 mg 3-07 by mouth 3 ity of tablet 00:01: ([facility]) [place] 47 times Medical daily with Branch meals. hydrALAZINE 2020-0 Yes 50mg Take 50 mg [facility] 50 mg 3-07 by mouth 3 ity of tablet 00:01: ([facility]) [place] [address] times Medical daily with Branch meals. hydrALAZINE 2020-0 Yes 50mg Take 50 mg [facility] 50 mg 3-07 by mouth 3 ity of tablet 00:01: ([facility]) [place] [address] times Medical daily with Branch meals. hydrALAZINE 2020-0 Yes 50mg Take 50 mg [facility] 50 mg 3-07 by mouth 3 ity of tablet 00:01: ([facility]) [place] [address] times Medical daily with Branch meals. hydrALAZINE 2020-0 Yes 50mg Take 50 mg [facility] 50 mg 3-07 by mouth 3 ity of tablet 00:01: ([facility]) [place] [address] times Medical daily with Branch meals. hydrALAZINE 2020-0 Yes 50mg Take 50 mg [facility] 50 mg 3-07 by mouth 3 ity of tablet 00:01: ([facility]) [place] [address] times Medical daily with Branch meals. hydrALAZINE 2020-0 Yes 50mg Take 50 mg [facility] 50 mg 3-07 by mouth 3 ity of tablet 00:01: (three) [place] [address] times Medical daily with Branch meals. hydrALAZINE 2020-0 Yes 50mg Take 50 mg [facility] 50 mg 3-07 by mouth 3 ity of tablet 00:01: ([facility]) [place] [address] times Medical daily with Branch meals. hydrALAZINE 2020-0 Yes 50mg Take 50 mg [facility] 50 mg 3-07 by mouth 3 ity of tablet 00:01: (three) [place] [address] times Medical daily with Branch meals. hydrALAZINE 2020-0 Yes 50mg Take 50 mg [facility] 50 mg 3-07 by mouth 3 ity of tablet 00:01: (three) [place] 47 times Medical daily with Branch meals. hydrALAZINE 2020-0 Yes 50mg Take 50 mg [facility] 50 mg 3-07 by mouth 3 ity of tablet 00:01: ([facility]) [place] 47 times Medical daily with Branch meals. hydrALAZINE 2020-0 Yes 50mg Take 50 mg [facility] 50 mg 3-07 by mouth 3 ity of tablet 00:01: ([facility]) [place] 47 times Medical daily with Branch meals. hydrALAZINE 2020-0 Yes 50mg Take 50 mg [facility] 50 mg 3-07 by mouth 3 ity of tablet 00:01: ([facility]) [place] 47 times Medical daily with Branch meals. hydrALAZINE 2020-0 Yes 50mg Take 50 mg [facility] 50 mg 3-07 by mouth 3 ity of tablet 00:01: ([facility]) [place] 47 times Medical daily with Branch meals. hydrALAZINE 2020-0 Yes 50mg Take 50 mg [facility] 50 mg 3-07 by mouth 3 ity of tablet 00:01: ([facility]) [place] 47 times Medical daily with Branch meals. hydrALAZINE 2020-0 Yes 50mg Take 50 mg [facility] 50 mg 3-07 by mouth 3 ity of tablet 00:01: ([facility]) [place] 47 times Medical daily with Branch meals. hydrALAZINE 2020-0 Yes 50mg Take 50 mg [facility] 50 mg 3-07 by mouth 3 ity of tablet 00:01: ([facility]) [place] 47 times Medical daily with Branch meals. hydrALAZINE 2020-0 Yes 50mg Take 50 mg [facility] 50 mg 3-07 by mouth 3 ity of tablet 00:01: ([facility]) [place] 47 times Medical daily with Branch meals. losartan-hy 2020-0 Yes Take by Un osbaldo drochloroth 3-07 mouth. ity of iazide 00:01: [place] 100-25 mg 47 Medical per tablet Branch hydrALAZINE 2020-0 Yes 50mg Take 50 mg [facility] 50 mg 3-07 by mouth 3 ity of tablet 00:01: ([facility]) [place] 47 times Medical daily with Branch meals. hydrALAZINE 2020-0 Yes 50mg Take 50 mg [facility] 50 mg 3-07 by mouth 3 ity of tablet 00:01: (three) [place] 47 times Medical daily with Branch meals. hydrALAZINE 2020-0 Yes 50mg Take 50 mg [facility] 50 mg 3-07 by mouth 3 ity of tablet 00:01: ([facility]) [place] 47 times Medical daily with Branch meals. hydrALAZINE 2020-0 Yes 50mg Take 50 mg [facility] 50 mg 3-07 by mouth 3 ity of tablet 00:01: ([facility]) [place] 47 times Medical daily with Branch meals. hydrALAZINE 2020-0 Yes 50mg Take 50 mg [facility] 50 mg 3-07 by mouth 3 ity of tablet 00:01: ([facility]) [place] 47 times Medical daily with Branch meals. hydrALAZINE 2020-0 Yes 50mg Take 50 mg [facility] 50 mg 3-07 by mouth 3 ity of tablet 00:01: ([facility]) [place] 47 times Medical daily with Branch meals. hydrALAZINE 2020-0 Yes 50mg Take 50 mg [facility] 50 mg 3-07 by mouth 3 ity of tablet 00:01: ([facility]) [place] [address] times Medical daily with Branch meals. hydrALAZINE 2020-0 Yes 50mg Take 50 mg [facility] 50 mg 3-07 by mouth 3 ity of tablet 00:01: ([facility]) [place] [address] times Medical daily with Branch meals. hydrALAZINE 2020-0 Yes 50mg Take 50 mg [facility] 50 mg 3-07 by mouth 3 ity of tablet 00:01: ([facility]) [place] [address] times Medical daily with Branch meals. hydrALAZINE 2020-0 Yes 50mg Take 50 mg [facility] 50 mg 3-07 by mouth 3 ity of tablet 00:01: ([facility]) [place] 47 times Medical daily with Branch meals. hydrALAZINE 2020-0 Yes 50mg Take 50 mg [facility] 50 mg 3-07 by mouth 3 ity of tablet 00:01: ([facility]) [place] 47 times Medical daily with Branch meals. hydrALAZINE 2020-0 Yes 50mg Take 50 mg [facility] 50 mg 3-07 by mouth 3 ity of tablet 00:01: ([facility]) [place] [address] times Medical daily with Branch meals. hydrALAZINE 2020-0 Yes 50mg Take 50 mg [facility] 50 mg 3-07 by mouth 3 ity of tablet 00:01: ([facility]) [place] [address] times Medical daily with Branch meals. hydrALAZINE 2020-0 Yes 50mg Take 50 mg [facility] 50 mg 3-07 by mouth 3 ity of tablet 00:01: ([facility]) [place] [address] times Medical daily with Branch meals. hydrALAZINE 2020-0 Yes 50mg Take 50 mg [facility] 50 mg 3-07 by mouth 3 ity of tablet 00:01: (three) [place] 47 times Medical daily with Branch meals. hydrALAZINE 2020-0 Yes 50mg Take 50 mg [facility] 50 mg 3-07 by mouth 3 ity of tablet 00:01: (three) [place] 47 times Medical daily with Branch meals. hydrALAZINE 2020-0 Yes 50mg Take 50 mg [facility] 50 mg 3-07 by mouth 3 ity of tablet 00:01: (three) [place] 47 times Medical daily with Branch meals. hydrALAZINE 2020-0 Yes 50mg Take 50 mg [facility] 50 mg 3-07 by mouth 3 ity of tablet 00:01: ([facility]) [place] 47 times Medical daily with Branch meals. hydrALAZINE 2020-0 Yes 50mg Take 50 mg [facility] 50 mg 3-07 by mouth 3 ity of tablet 00:01: ([facility]) [place] [address] times Medical daily with Branch meals. hydrALAZINE 2020-0 Yes 50mg Take 50 mg [facility] 50 mg 3-07 by mouth 3 ity of tablet 00:01: ([facility]) [place] [address] times Medical daily with Branch meals. hydrALAZINE 2020-0 Yes 50mg Take 50 mg [facility] 50 mg 3-07 by mouth 3 ity of tablet 00:01: (three) [place] [address] times Medical daily with Branch meals. hydrALAZINE 2020-0 Yes 50mg Take 50 mg [facility] 50 mg 3-07 by mouth 3 ity of tablet 00:01: (three) [place] [address] times Medical daily with Branch meals. hydrALAZINE 2020-0 Yes 50mg Take 50 mg [facility] 50 mg 3-07 by mouth 3 ity of tablet 00:01: (three) [place] 47 times Medical daily with Branch meals. hydrALAZINE 2020-0 Yes 50mg Take 50 mg [facility] 50 mg 3-07 by mouth 3 ity of tablet 00:01: (three) [place] [address] times Medical daily with Branch meals. hydrALAZINE 2020-0 Yes 50mg Take 50 mg [facility] 50 mg 3-07 by mouth 3 ity of tablet 00:01: (three) [place] [address] times Medical daily with Branch meals. hydrALAZINE 2020-0 Yes 50mg Take 50 mg [facility] 50 mg 3-07 by mouth 3 ity of tablet 00:01: (three) [place] [address] times Medical daily with Branch meals. hydrALAZINE 2020-0 Yes 50mg Take 50 mg [facility] 50 mg 3-07 by mouth 3 ity of tablet 00:01: (three) [place] 47 times Medical daily with Branch meals. hydrALAZINE 2020-0 Yes 50mg Take 50 mg [facility] 50 mg 3-07 by mouth 3 ity of tablet 00:01: (three) [place] 47 times Medical daily with Branch meals. hydrALAZINE 2020-0 Yes 50mg Take 50 mg [facility] 50 mg 3-07 by mouth 3 ity of tablet 00:01: (three) [place] 47 times Medical daily with Branch meals. hydrALAZINE 2020-0 Yes 50mg Take 50 mg [facility] 50 mg 3-07 by mouth 3 ity of tablet 00:01: (three) [place] 47 times Medical daily with Branch meals. hydrALAZINE 2020-0 Yes 50mg Take 50 mg [facility] 50 mg 3-07 by mouth 3 ity of tablet 00:01: (three) [place] 47 times Medical daily with Branch meals. hydrALAZINE 2020-0 Yes 50mg Take 50 mg [facility] 50 mg 3-07 by mouth 3 ity of tablet 00:01: (three) [place] 47 times Medical daily with Branch meals. hydrALAZINE 2020-0 Yes 50mg Take 50 mg [facility] 50 mg 3-07 by mouth 3 ity of tablet 00:01: (three) [place] 47 times Medical daily with Branch meals. nitroglycer 2020-[address] 0[address]3 U nivers in 0.3 mg 3-06 mg under ity of sublingual 23:52: the tongue [place] 42 every 5 Medical (five) Branch minutes as needed for Chest pain. carvediloL 2020-0 Yes 25mg Take 25 mg U nivers 25 mg 3-06 by mouth 2 ity of tablet 19:16: (two) [place] 39 times Medical daily with Branch meals. proMETHazin 2020-0 Yes 12.5mg Take 12.5 Univers e 25 mg 3-06 mg by ity of tablet 19:16: mouth 3 [place] 39 (three) Medical times Branch daily as needed for Nausea and Vomiting (N/V). insulin 2020-0 Yes inject [facility] aspart 3-06 under the ity of U-100 19:16: skin. [place] (NOVOLOG 39 Medical FLEXPEN Branch U-100 INSULIN) 100 unit/mL (3 mL) injection Insulin 2020-0 Yes inject [facility] Detemir 100 3-06 under the ity of unit/mL (3 18:22: skin. [place] mL) 08 Medical injection Branch gabapentin 2020-0 Yes 100mg Take 100 Un osbaldo 100 mg 3-06 mg by ity of capsule 18:13: mouth 2 [place] 40 (two) Medical times Branch daily. hydrALAZINE 2020-0 Yes 50mg Take 50 mg [facility] 50 mg 3-06 by mouth 3 ity of tablet 18:01: (three) [place] 47 times Medical daily with Branch meals. insulin 2020-0 Yes 60U inject 60 Unive [...] 25mg Take 25 mg [facility] 12.5 mg 3-07 17-06 by mouth. ity of tablet 15:51: 00:00 [...] Take 25 mg [facility] 12.5 mg 3-06 by mouth. ity of tablet 15:51: 00:00 [place] 24 :00 Medical Branch aspirin-nhi 2020-0 2020- No 1{tbl} Take 1 U nivers taminophen- 3-06 03-06 tablet by it y of caffeine 15:51: 00:00 mouth [place] (EXCEDRIN 24 :00 every 6 Medical MIGRAINE) (six) Branch 250-250-65 hours as mg per needed for tablet Pain. SERTraline 2020-0 Yes [id number] 25mg Take 1 U nivers 25 mg 3-06 tablet by ity of tablet 00:00: mouth [place] 00 daily. Medical Branch SERTraline 2020-0 Yes [id number] 25mg Take 1 U nivers 25 mg 3-06 tablet by ity of tablet 00:00: mouth [place] 00 daily. Medical Branch SERTraline 2020-0 Yes [id number] 25mg Take 1 U nivers 25 mg 3-06 tablet by ity of tablet 00:00: mouth [place] 00 daily. Medical Branch SERTraline 2020-0 Yes [id number] 25mg Take 1 U nivers 25 mg 3-06 tablet by ity of tablet 00:00: mouth [place] 00 daily. Medical Branch SERTraline 2020-0 Yes [id number] 25mg Take 1 U nivers 25 mg 3-06 tablet by ity of tablet 00:00: mouth [place] 00 daily. Medical Branch SERTraline 2020-0 Yes [id number] 25mg Take 1 U nivers 25 mg 3-06 tablet by ity of tablet 00:00: mouth [place] 00 daily. Medical Branch SERTraline 2020-0 Yes [id number] 25mg Take 1 U nivers 25 mg 3-06 tablet by ity of tablet 00:00: mouth [place] 00 daily. Medical Branch SERTraline 2020-0 Yes [id number] 25mg Take 1 U nivers 25 mg 3-06 tablet by ity of tablet 00:00: mouth [place] 00 daily. Medical Branch SERTraline 2020-0 Yes [id number] 25mg Take 1 U nivers 25 mg 3-06 tablet by ity of tablet 00:00: mouth [place] 00 daily. Medical Branch SERTraline 2020-0 Yes [id number] 25mg Take 1 U nivers 25 mg 3-06 tablet by ity of tablet 00:00: mouth [place] 00 daily. Medical Branch SERTraline 2020-0 Yes [id number] 25mg Take 1 U nivers 25 mg 3-06 tablet by ity of tablet 00:00: mouth [place] 00 daily. Medical Branch SERTraline 2020-0 Yes [id number] 25mg Take 1 U nivers 25 mg 3-06 tablet by ity of tablet 00:00: mouth [place] 00 daily. Medical Branch SERTraline 2020-0 Yes [id number] 25mg Take 1 U nivers 25 mg 3-06 tablet by ity of tablet 00:00: mouth [place] 00 daily. Medical Branch SERTraline 2020-0 2020- No [id number] 25mg Take 1 [facility] 25 mg 3-06 05-21 tablet by ity of tablet 00:00: 00:00 mouth [place] 00 :00 daily. Medical Branch SERTraline 2020-0 2020- No [id number] 25mg Take 1 [facility] 25 mg 3-06 [...] IN ity of nasal spray 00:00: ONE [place] NOSTRIL Medical EVERY 8 Branch HOURS NEEDED FOR HEADACHE butorphanol 2020-0 Yes USE 1 Unive rs 10 mg/mL 3-05 SPRAY IN ity of nasal spray 00:00: ONE [place] NOSTRIL Medical EVERY 8 Branch HOURS NEEDED FOR HEADACHE butorphanol 2020-0 Yes USE 1 Unive rs 10 mg/mL 3-05 SPRAY IN ity of nasal spray 00:00: ONE [place] NOSTRIL Medical EVERY 8 Branch HOURS NEEDED FOR HEADACHE butorphanol 2020-0 Yes USE 1 Unive rs 10 mg/mL 3-05 SPRAY IN ity of nasal spray 00:00: ONE [place] NOSTRIL Medical EVERY 8 Branch HOURS NEEDED FOR HEADACHE butorphanol 2020-0 Yes USE 1 Unive rs 10 mg/mL 3-05 SPRAY IN ity of nasal spray 00:00: ONE [place] NOSTRIL Medical EVERY 8 Branch HOURS NEEDED FOR HEADACHE butorphanol 2020-0 Yes USE 1 Unive rs 10 mg/mL 3-05 SPRAY IN ity of nasal spray 00:00: ONE [place] NOSTRIL Medical EVERY 8 Branch HOURS NEEDED FOR HEADACHE butorphanol 2020-0 Yes USE 1 Unive rs 10 mg/mL 3-05 SPRAY IN ity of nasal spray 00:00: ONE [place] [address] NOSTRIL Medical EVERY 8 Branch HOURS NEEDED FOR HEADACHE butorphanol 2020-0 Yes USE 1 Unive rs 10 mg/mL 3-05 SPRAY IN ity of nasal spray 00:00: ONE [place] [address] NOSTRIL Medical EVERY 8 Branch HOURS NEEDED FOR HEADACHE butorphanol 2020-0 Yes USE 1 Unive rs 10 mg/mL 3-05 SPRAY IN ity of nasal spray 00:00: ONE [place] [address] NOSTRIL Medical EVERY 8 Branch HOURS NEEDED FOR HEADACHE butorphanol 2020-0 2020- No USE 1 Univ ers 10 mg/mL 3-05 04-01 SPRAY IN ity of nasal spray 00:00: 00:00 ONE [place] 00 :00 NOSTRIL Medical EVERY 8 Branch HOURS NEEDED FOR HEADACHE ELIQUIS 5 2020-0 Yes 5mg Take 5 mg Uni vers mg tablet 3-04 by mouth 2 ity of 00:00: (two) [place] 00 times Medical daily. Branch ELIQUIS 5 [...] TABLET BY ity of tablet 00:00: MOUTH [place] 00 EVERYDAY Medical AT BEDTIME Branch AMITRIPTYLI 2020-0 Yes TAKE 1 Univ ers NE 25 mg 3-02 TABLET BY ity of tablet 00:00: MOUTH [place] 00 EVERYDAY Medical AT BEDTIME Branch AMITRIPTYLI 2020-0 Yes TAKE 1 Univ ers [place] 25 mg 3-02 TABLET BY ity of tablet 00:00: MOUTH [place] 00 EVERYDAY Medical AT BEDTIME Branch AMITRIPTYLI 2020-0 Yes TAKE 1 Univ ers [place] 25 mg 3-02 TABLET BY ity of tablet 00:00: MOUTH [place] 00 EVERYDAY Medical AT BEDTIME Branch AMITRIPTYLI [...] TABLET BY ity of tablet 00:00: MOUTH [place] 00 EVERYDAY Medical AT BEDTIME Branch AMITRIPTYLI 2020-0 Yes TAKE 1 Univ ers NE 25 mg 3-02 TABLET BY ity of tablet 00:00: MOUTH [place] 00 EVERYDAY Medical AT BEDTIME Branch AMITRIPTYLI 2019-0 Yes TAKE 1 Univ ers NE 25 mg 3-02 TABLET BY ity of tablet 00:00: MOUTH [place] EVERYDAY Medical AT BEDTIME Branch AMITRIPTYLI 2019-0 Yes TAKE 1 [facility] ers NE 25 mg 3-02 TABLET BY ity of tablet 00:00: MOUTH [place] EVERYDAY Medical AT BEDTIME Branch AMITRIPTYLI 2019-0 Yes TAKE 1 Univ ers [place] 25 mg 3-02 TABLET BY ity of tablet 00:00: MOUTH [place] EVERYDAY Medical AT BEDTIME Branch AMITRIPTYLI 2020- No TAKE 1 Uni vers NE 25 mg 3-02 03-30 TABLET BY ity o f tablet 00:00: 00:00 MOUTH [place] 00 :00 EVERYDAY Medical AT BEDTIME Branch zolpidem 10 2019-0 Yes 10mg Take 10 mg [facility] mg tablet 3-01 by mouth ity of 00:00: at [place] [address] bedtime. I Medical ADVISE Branch AGAINST TAKING THIS MEDICATION DUE TO THE RISKS. [facility] zolpidem 10 2019-0 Yes 10mg Take 10 mg [facility] mg tablet 3-01 by mouth ity of 00:00: at [place] [address] bedtime. I Medical ADVISE Branch AGAINST TAKING THIS MEDICATION DUE TO THE RISKS. [facility] zolpidem 10 2019-0 Yes 10mg Take 10 mg [facility] mg tablet 3-01 by mouth ity of 00:00: at [place] [address] bedtime. I Medical ADVISE Branch AGAINST TAKING THIS MEDICATION DUE TO THE RISKS. [facility] zolpidem 10 2019-0 Yes 10mg Take 10 mg [facility] mg tablet 3-01 by mouth ity of 00:00: at [place] [address] bedtime. I Medical ADVISE Branch AGAINST TAKING THIS MEDICATION DUE TO THE RISKS. [facility] zolpidem 10 2019-0 Yes 10mg Take 10 mg [facility] mg tablet 3-01 by mouth ity of 00:00: at [place] [address] bedtime. I Medical ADVISE Branch AGAINST TAKING THIS MEDICATION DUE TO THE RISKS. [facility] zolpidem 10 2019-0 Yes 10mg Take 10 mg [facility] mg tablet 3-01 by mouth ity of 00:00: at [place] [address] bedtime. I Medical ADVISE Branch AGAINST TAKING THIS MEDICATION DUE TO THE RISKS. [facility] zolpidem 10 2019-0 Yes 10mg Take 10 mg [facility] mg tablet 3-01 by mouth ity of 00:00: at [place] [address] bedtime. I Medical ADVISE Branch AGAINST TAKING THIS MEDICATION DUE TO THE RISKS. [facility] zolpidem 10 2020-0 Yes 10mg Take 10 mg [facility] mg tablet 3-01 by mouth ity of 00:00: at [place] [address] bedtime. I Medical ADVISE Branch AGAINST TAKING THIS MEDICATION DUE TO THE RISKS. [facility] zolpidem 10 2020-0 Yes 10mg Take 10 mg [facility] mg tablet 3-01 by mouth ity of 00:00: at [place] [address] bedtime. I Medical ADVISE Branch AGAINST TAKING THIS MEDICATION DUE TO THE RISKS. [facility] zolpidem 10 2020-0 Yes 10mg Take 10 mg [facility] mg tablet 3-01 by mouth ity of 00:00: at [place] [address] bedtime. I Medical ADVISE Branch AGAINST TAKING THIS MEDICATION DUE TO THE RISKS. [facility] zolpidem 10 2020-0 Yes 10mg Take 10 mg [facility] mg tablet 3-01 by mouth ity of 00:00: at [place] [address] bedtime. I Medical ADVISE Branch AGAINST TAKING THIS MEDICATION DUE TO THE RISKS. [facility] zolpidem 10 2020-0 Yes 10mg Take 10 mg [facility] mg tablet 3-01 by mouth ity of 00:00: at [place] [address] bedtime. I Medical ADVISE Branch AGAINST TAKING THIS MEDICATION DUE TO THE RISKS. [facility] zolpidem 10 2020-0 Yes 10mg Take 10 mg [facility] mg tablet 3-01 by mouth ity of 00:00: at [place] [address] bedtime. I Medical ADVISE Branch AGAINST TAKING THIS MEDICATION DUE TO THE RISKS. [facility] zolpidem 10 2020-0 Yes 10mg Take 10 mg [facility] mg tablet 3-01 by mouth ity of 00:00: at [place] [address] bedtime. I Medical ADVISE Branch AGAINST TAKING THIS MEDICATION DUE TO THE RISKS. [facility] zolpidem 10 2020-0 Yes 10mg Take 10 mg [facility] mg tablet 3-01 by mouth ity of 00:00: at [place] [address] bedtime. I Medical ADVISE Branch AGAINST TAKING THIS MEDICATION DUE TO THE RISKS. [facility] zolpidem 10 2020-0 Yes 10mg Take 10 mg [facility] mg tablet 3-01 by mouth ity of 00:00: at [place] [address] bedtime. I Medical ADVISE Branch AGAINST TAKING THIS MEDICATION DUE TO THE RISKS. [facility] zolpidem 10 2020-0 Yes 10mg Take 10 mg [facility] mg tablet 3-01 by mouth ity of 00:00: at [place] [address] bedtime. I Medical ADVISE Branch AGAINST TAKING THIS MEDICATION DUE TO THE RISKS. [facility] zolpidem 10 2020-0 Yes 10mg Take 10 mg [facility] mg tablet 3-01 by mouth ity of 00:00: at [place] [address] bedtime. I Medical ADVISE Branch AGAINST TAKING THIS MEDICATION DUE TO THE RISKS. [facility] zolpidem 10 2020-0 Yes 10mg Take 10 mg [facility] mg tablet 3-01 by mouth ity of 00:00: at [place] [address] bedtime. I Medical ADVISE Branch AGAINST TAKING THIS MEDICATION DUE TO THE RISKS. [facility] zolpidem 10 2020-0 Yes 10mg Take 10 mg [facility] mg tablet 3-01 by mouth ity of 00:00: at [place] [address] bedtime. I Medical ADVISE Branch AGAINST TAKING THIS MEDICATION DUE TO THE RISKS. [facility] zolpidem 10 2020-0 Yes 10mg Take 10 mg [facility] mg tablet 3-01 by mouth ity of 00:00: at [place] [address] bedtime. I Medical ADVISE Branch AGAINST TAKING THIS MEDICATION DUE TO THE RISKS. [facility] zolpidem 10 2020-0 Yes 10mg Take 10 mg [facility] mg tablet 3-01 by mouth ity of 00:00: at [place] [address] bedtime. [facility] zolpidem 10 2020-0 Yes 10mg Take 10 mg [facility] mg tablet 3-01 by mouth ity of 00:00: at [place] [address] bedtime. Medical [place] zolpidem 10 2020-0 Yes 10mg Take 10 mg [facility] mg tablet 3-01 by mouth ity of 00:00: at [place] [address] bedtime. [facility] zolpidem 10 2020-0 Yes 10mg Take 10 mg [facility] mg tablet 3-01 by mouth ity of 00:00: at [place] [address] bedtime. I Medical ADVISE Branch AGAINST TAKING THIS MEDICATION DUE TO THE RISKS. [facility] zolpidem 10 2020-0 Yes 10mg Take 10 mg [facility] mg tablet 3-01 by mouth ity of 00:00: at [place] [address] bedtime. I Medical ADVISE Branch AGAINST TAKING THIS MEDICATION DUE TO THE RISKS. [facility] zolpidem 10 2020-0 Yes 10mg Take 10 mg [facility] mg tablet 3-01 by mouth ity of 00:00: at [place] [address] bedtime. I Medical ADVISE Branch AGAINST TAKING THIS MEDICATION DUE TO THE RISKS. [facility] zolpidem 10 2020-0 Yes 10mg Take 10 mg [facility] mg tablet 3-01 by mouth ity of 00:00: at [place] 00 bedtime. I Medical ADVISE Branch AGAINST TAKING THIS MEDICATION DUE TO THE RISKS. [facility] zolpidem 10 2020-0 Yes 10mg Take 10 mg [facility] mg tablet 3-01 by mouth ity of 00:00: at [place] 00 bedtime. I Medical ADVISE Branch AGAINST TAKING THIS MEDICATION DUE TO THE RISKS. [facility] zolpidem 10 2020-0 Yes 10mg Take 10 mg [facility] mg tablet 3-01 by mouth ity of 00:00: at [place] [address] bedtime. I Medical ADVISE Branch AGAINST TAKING THIS MEDICATION DUE TO THE RISKS. [facility] zolpidem 10 2020-0 Yes 10mg Take 10 mg [facility] mg tablet 3-01 by mouth ity of 00:00: at [place] [address] bedtime. I Medical ADVISE Branch AGAINST TAKING THIS MEDICATION DUE TO THE RISKS. [facility] zolpidem 10 2020-0 Yes 10mg Take 10 mg [facility] mg tablet 3-01 by mouth ity of 00:00: at [place] [address] bedtime. I Medical ADVISE Branch AGAINST TAKING THIS MEDICATION DUE TO THE RISKS. [facility] zolpidem 10 2020-0 Yes 10mg Take 10 mg [facility] mg tablet 3-01 by mouth ity of 00:00: at [place] [address] bedtime. I Medical ADVISE Branch AGAINST TAKING THIS MEDICATION DUE TO THE RISKS. [facility] zolpidem 10 2020-0 Yes 10mg Take 10 mg [facility] mg tablet 3-01 by mouth ity of 00:00: at [place] [address] bedtime. I Medical ADVISE Branch AGAINST TAKING THIS MEDICATION DUE TO THE RISKS. [facility] zolpidem 10 2020-0 Yes 10mg Take 10 mg [facility] mg tablet 3-01 by mouth ity of 00:00: at [place] [address] bedtime. I Medical ADVISE Branch AGAINST TAKING THIS MEDICATION DUE TO THE RISKS. [facility] zolpidem 10 2020-0 Yes 10mg Take 10 mg [facility] mg tablet 3-01 by mouth ity of 00:00: at [place] [address] bedtime. I Medical ADVISE Branch AGAINST TAKING THIS MEDICATION DUE TO THE RISKS. [facility] zolpidem 10 2020-0 Yes 10mg Take 10 mg [facility] mg tablet 3-01 by mouth ity of 00:00: at [place] [address] bedtime. I Medical ADVISE Branch AGAINST TAKING THIS MEDICATION DUE TO THE RISKS. [facility] zolpidem 10 2020-0 Yes 10mg Take 10 mg [facility] mg tablet 3-01 by mouth ity of 00:00: at [place] 00 bedtime. I Medical ADVISE Branch AGAINST TAKING THIS MEDICATION DUE TO THE RISKS. [facility] zolpidem 10 2020-0 Yes 10mg Take 10 mg [facility] mg tablet 3-01 by mouth ity of 00:00: at [place] 00 bedtime. I Medical ADVISE Branch AGAINST TAKING THIS MEDICATION DUE TO THE RISKS. [facility] zolpidem 10 2020-0 Yes 10mg Take 10 mg [facility] mg tablet 3-01 by mouth ity of 00:00: at [place] 00 bedtime. I Medical ADVISE Branch AGAINST TAKING THIS MEDICATION DUE TO THE RISKS. [facility] zolpidem 10 2020-0 Yes 10mg Take 10 mg [facility] mg tablet 3-01 by mouth ity of 00:00: at [place] [address] bedtime. I Medical ADVISE Branch AGAINST TAKING THIS MEDICATION DUE TO THE RISKS. [facility] zolpidem 10 2020-0 Yes 10mg Take 10 mg [facility] mg tablet 3-01 by mouth ity of 00:00: at [place] [address] bedtime. I Medical ADVISE Branch AGAINST TAKING THIS MEDICATION DUE TO THE RISKS. [facility] zolpidem 10 2020-0 Yes 10mg Take 10 mg [facility] mg tablet 3-01 by mouth ity of 00:00: at [place] [address] bedtime. I Medical ADVISE Branch AGAINST TAKING THIS MEDICATION DUE TO THE RISKS. [facility] zolpidem 10 2020-0 Yes 10mg Take 10 mg [facility] mg tablet 3-01 by mouth ity of 00:00: at [place] [address] bedtime. I Medical ADVISE Branch AGAINST TAKING THIS MEDICATION DUE TO THE RISKS. [facility] zolpidem 10 2020-0 Yes 10mg Take 10 mg [facility] mg tablet 3-01 by mouth ity of 00:00: at [place] 00 bedtime. I Medical ADVISE Branch AGAINST TAKING THIS MEDICATION DUE TO THE RISKS. [facility] zolpidem 10 2020-0 Yes 10mg Take 10 mg Univers mg tablet 3-01 by mouth ity of 00:00: at [place] [address] bedtime. I Medical ADVISE Branch AGAINST TAKING THIS MEDICATION DUE TO THE RISKS. [facility] zolpidem 10 2020-0 Yes 10mg Take 10 mg [facility] mg tablet 3-01 by mouth ity of 00:00: at [place] [address] bedtime. I Medical ADVISE Branch AGAINST TAKING THIS MEDICATION DUE TO THE RISKS. [facility] zolpidem 10 2020-0 Yes 10mg Take 10 mg [facility] mg tablet 3-01 by mouth ity of 00:00: at [place] [address] bedtime. I Medical ADVISE Branch AGAINST TAKING THIS MEDICATION DUE TO THE RISKS. [facility] zolpidem 10 2020-0 Yes 10mg Take 10 mg [facility] mg tablet 3-01 by mouth ity of 00:00: at [place] [address] bedtime. I Medical ADVISE Branch AGAINST TAKING THIS MEDICATION DUE TO THE RISKS. [facility] zolpidem 10 2020-0 Yes 10mg Take 10 mg [facility] mg tablet 3-01 by mouth ity of 00:00: at [place] [address] bedtime. I Medical ADVISE Branch AGAINST TAKING THIS MEDICATION DUE TO THE RISKS. [facility] zolpidem 10 2020-0 Yes 10mg Take 10 mg [facility] mg tablet 3-01 by mouth ity of 00:00: at [place] [address] bedtime. I Medical ADVISE Branch AGAINST TAKING THIS MEDICATION DUE TO THE RISKS. [facility] zolpidem 10 2020-0 Yes 10mg Take 10 mg [facility] mg tablet 3-01 by mouth ity of 00:00: at [place] [address] bedtime. I Medical ADVISE Branch AGAINST TAKING THIS MEDICATION DUE TO THE RISKS. [facility] zolpidem 10 2020-0 Yes 10mg Take 10 mg [facility] mg tablet 3-01 by mouth ity of 00:00: at [place] [address] bedtime. I Medical ADVISE Branch AGAINST TAKING THIS MEDICATION DUE TO THE RISKS. [facility] zolpidem 10 2020-0 Yes 10mg Take 10 mg [facility] mg tablet 3-01 by mouth ity of 00:00: at [place] [address] bedtime. I Medical ADVISE Branch AGAINST TAKING THIS MEDICATION DUE TO THE RISKS. [facility] zolpidem 10 2020-0 Yes 10mg Take 10 mg [facility] mg tablet 3-01 by mouth ity of 00:00: at [place] [address] bedtime. I Medical ADVISE Branch AGAINST TAKING THIS MEDICATION DUE TO THE RISKS. [facility] zolpidem 10 2020-0 Yes 10mg Take 10 mg [facility] mg tablet 3-01 by mouth ity of 00:00: at [place] [address] bedtime. I Medical ADVISE Branch AGAINST TAKING THIS MEDICATION DUE TO THE RISKS. [facility] zolpidem 10 2020-0 Yes 10mg Take 10 mg [facility] mg tablet 3-01 by mouth ity of 00:00: at [place] 00 bedtime. I Medical ADVISE Branch AGAINST TAKING THIS MEDICATION DUE TO THE RISKS. [facility] ondansetron 2020-0 Yes 4mg Take 4 mg [...] 1 Uni vers OXIDE 10 mg 2-27 03-06 CAPSULE BY i ty of capsule 00:00: 00:00 MOUTH 00 :00 TIMES A Medical DAY Branch [...] 0.3 mg 2-26 ity of tablet 00:00: 00 Medical Branch cloNIDine 2020-0 Yes Univers 0.3 [...] 00:00: mouth (three) Medical times Branch daily. amitriptyli 2020-0 Yes 25mg Take 1 Univ ers ne 25 mg 2-07 tablet by ity of tablet 00:00: mouth at bedtime. Medical Branch butorphanol 2020-0 Yes USE 1 Unive rs 10 mg/mL 2-07 SPRAY IN ity of nasal spray 00:00: ONE [place] 00 NOSTRIL Medical EVERY 8 Branch HOURS NEEDED FOR HEADACHE amitriptyli 2020-0 Yes 25mg Take 1 Univ ers ne 25 mg 2-07 tablet by ity of tablet 00:00: mouth at [place] 00 bedtime. Medical Branch butorphanol 2020-0 Yes USE 1 Unive rs 10 mg/mL 2-07 SPRAY IN ity of nasal spray 00:00: ONE [place] NOSTRIL Medical EVERY 8 Branch HOURS NEEDED FOR HEADACHE butorphanol 2020-0 Yes USE 1 Unive rs 10 mg/mL 2-07 SPRAY IN ity of nasal spray 00:00: ONE [place] NOSTRIL Medical EVERY 8 Branch HOURS NEEDED FOR HEADACHE butorphanol 2020-0 2020- No USE 1 Univ ers 10 mg/mL 2-07 03-05 SPRAY IN ity of nasal spray 00:00: 00:00 ONE [place] 00 :00 NOSTRIL Medical EVERY 8 Branch HOURS NEEDED FOR HEADACHE butorphanol 2020-0 2020- No USE 1 Univ ers 10 mg/mL 2-07 03-05 SPRAY IN ity of nasal spray 00:00: 00:00 ONE [place] 00 :00 NOSTRIL Medical EVERY 8 Branch HOURS NEEDED FOR HEADACHE amitriptyli 2020-0 2020- No 25mg Take 1 Uni vers ne 25 mg 2-07 03-02 tablet by ity o f tablet 00:00: 00:00 mouth at [place] 00 :00 bedtime. Medical Branch amLODIPine 2020-0 Yes 5mg Take 5 mg Un osbaldo 5 mg tablet 2-06 by mouth 2 it y of 00:00: (two) [place] 00 times Medical daily. Branch amLODIPine 2020-0 Yes 5mg Take 5 mg Un osbaldo 5 mg tablet 2-06 by mouth 2 it y of 00:00: (two) [place] 00 times Medical daily. Branch amLODIPine 2020-0 Yes 5mg Take 5 mg Un osbaldo 5 mg tablet 2-06 by mouth 2 it y of 00:00: (two) [place] 00 times Medical daily. Branch amLODIPine 2020-0 Yes 5mg Take 5 mg Un osbaldo 5 mg tablet 2-06 by mouth 2 it y of 00:00: (two) [place] 00 times Medical daily. Branch amLODIPine 2020-0 Yes 5mg Take 5 mg Un osbaldo 5 mg tablet 2-06 by mouth 2 it y of 00:00: (two) [place] 00 times Medical daily. Branch amLODIPine 2020-0 [...] mouth 2 it y of 00:00: (two) [place] 00 times Medical daily. Branch amLODIPine 2020-0 Yes 5mg Take 5 mg Un osbaldo 5 mg tablet 2-06 by mouth 2 it y of 00:00: (two) [place] 00 times Medical daily. Branch sotalol 80 2020-0 Yes 80mg Take 80 mg U nivers mg tablet 1-16 by mouth ity of 00:00: every 12 [place] 00 (twelve) Medical hours. Branch sotalol 80 2020-0 Yes 80mg Take 80 mg U nivers mg tablet 1-16 by mouth ity of 00:00: every 12 [place] 00 (twelve) Medical hours. Branch sotalol 80 2020-0 Yes 80mg Take 80 mg U nivers mg tablet 1-16 by mouth ity of 00:00: every 12 [place] [address] (twelve) Medical hours. Branch sotalol 80 2020-0 Yes 80mg Take 80 mg U nivers mg tablet 1-16 by mouth ity of 00:00: every 12 [place] [address] (twelve) Medical hours. Branch sotalol 80 2020-0 Yes 80mg Take 80 mg U nivers mg tablet 1-16 by mouth ity of 00:00: every 12 [place] [address] (twelve) Medical hours. Branch sotalol 80 2020-0 Yes 80mg Take 80 mg U nivers mg tablet 1-16 by mouth ity of 00:00: every 12 [place] [address] (twelve) Medical hours. Branch sotalol 80 2020-0 Yes 80mg Take 80 mg U nivers mg tablet 1-16 by mouth ity of 00:00: every 12 [place] [address] (twelve) Medical hours. Branch sotalol 80 2020-0 Yes 80mg Take 80 mg U nivers mg tablet 1-16 by mouth ity of 00:00: every 12 [place] 00 (twelve) Medical hours. Branch sotalol 80 2020-0 Yes 80mg Take 80 mg U nivers mg tablet 1-16 by mouth ity of 00:00: every 12 [place] [address] (twelve) Medical hours. Branch sotalol 80 2020-0 Yes 80mg Take 80 mg U nivers mg tablet 1-16 by mouth ity of 00:00: every 12 [place] [address] (twelve) Medical hours. Branch sotalol 80 2020-0 Yes 80mg Take 80 mg U nivers mg tablet 1-16 by mouth ity of 00:00: every 12 [place] 00 (twelve) Medical hours. Branch sotalol 80 2020-0 Yes 80mg Take 80 mg U nivers mg tablet 1-16 by mouth ity of 00:00: every 12 [place] 00 (twelve) Medical hours. Branch sotalol 80 2020-0 Yes 80mg Take 80 mg U nivers mg tablet 1-16 by mouth ity of 00:00: every 12 [place] 00 (twelve) Medical hours. Branch sotalol 80 2020-0 Yes 80mg Take 80 mg U nivers mg tablet 1-16 by mouth ity of 00:00: every 12 [place] 00 (twelve) Medical hours. Branch sotalol 80 2020-0 Yes 80mg Take 80 mg U nivers mg tablet 1-16 by mouth ity of 00:00: every 12 [place] 00 (twelve) Medical hours. Branch sotalol 80 2020-0 Yes 80mg Take 80 mg U nivers mg tablet 1-16 by mouth ity of 00:00: every 12 [place] [address] (twelve) Medical hours. Branch sotalol 80 2020-0 Yes 80mg Take 80 mg U nivers mg tablet 1-16 by mouth ity of 00:00: every 12 [place] 00 (twelve) Medical hours. Branch sotalol 80 2020-0 Yes 80mg Take 80 mg U nivers mg tablet 1-16 by mouth ity of 00:00: every 12 [place] 00 (twelve) Medical hours. Branch sotalol 80 2020-0 Yes 80mg Take 80 mg U nivers mg tablet 1-16 by mouth ity of 00:00: every 12 [place] 00 (twelve) Medical hours. Branch sotalol 80 2020-0 Yes 80mg Take 80 mg U nivers mg tablet 1-16 by mouth ity of 00:00: every 12 [place] 00 (twelve) Medical hours. Branch sotalol 80 2020-0 Yes 80mg Take 80 mg U nivers mg tablet 1-16 by mouth ity of 00:00: every 12 [place] 00 (twelve) Medical hours. Branch sotalol 80 2020-0 Yes Univers mg tablet 1-16 ity of 00:00: [place] 00 Medical Branch sotalol 80 2020-0 Yes Univers mg tablet 1-16 ity of 00:00: [place] 00 Medical Branch sotalol 80 2020-0 Yes 80mg Take 80 mg U nivers mg tablet 1-16 by mouth ity of 00:00: every 12 [place] 00 (twelve) Medical hours. Branch sotalol 80 2020-0 Yes 80mg Take 80 mg U nivers mg tablet 1-16 by mouth ity of 00:00: every 12 [place] 00 (twelve) Medical hours. Branch sotalol 80 2020-0 Yes 80mg Take 80 mg U nivers mg tablet 1-16 by mouth ity of 00:00: every 12 [place] 00 (twelve) Medical hours. Branch sotalol 80 2020-0 Yes 80mg Take 80 mg U nivers mg tablet 1-16 by mouth ity of 00:00: every 12 [place] 00 (twelve) Medical hours. Branch sotalol 80 2020-0 Yes 80mg Take 80 mg U nivers mg tablet 1-16 by mouth ity of 00:00: every 12 [place] 00 (twelve) Medical hours. Branch sotalol 80 2020-0 Yes 80mg Take 80 mg U nivers mg tablet 1-16 by mouth ity of 00:00: every 12 [place] (twelve) Medical hours. Branch sotalol 80 2020-0 Yes 80mg Take 80 mg U nivers mg tablet 1-16 by mouth ity of 00:00: every 12 [place] 00 (twelve) Medical hours. Branch sotalol 80 2020-0 Yes 80mg Take 80 mg U nivers mg tablet 1-16 by mouth ity of 00:00: every 12 [place] 00 (twelve) Medical hours. Branch sotalol 80 2020-0 Yes 80mg Take 80 mg U nivers mg tablet 1-16 by mouth ity of 00:00: every 12 [place] 00 (twelve) Medical hours. Branch sotalol 80 2020-0 Yes 80mg Take 80 mg U nivers mg tablet 1-16 by mouth ity of 00:00: every 12 [place] 00 (twelve) Medical hours. Branch sotalol 80 2020-0 Yes 80mg Take 80 mg U nivers mg tablet 1-16 by mouth ity of 00:00: every 12 [place] 00 (twelve) Medical hours. Branch sotalol 80 2020-0 Yes 80mg Take 80 mg U nivers mg tablet 1-16 by mouth ity of 00:00: every 12 [place] 00 (twelve) Medical hours. Branch sotalol 80 2020-0 Yes 80mg Take 80 mg U nivers mg tablet 1-16 by mouth ity of 00:00: every 12 [place] 00 (twelve) Medical hours. Branch sotalol 80 2020-0 Yes 80mg Take 80 mg U nivers mg tablet 1-16 by mouth ity of 00:00: every 12 [place] 00 (twelve) Medical hours. Branch sotalol 80 2020-0 Yes 80mg Take 80 mg U nivers mg tablet 1-16 by mouth ity of 00:00: every 12 [place] 00 (twelve) Medical hours. Branch sotalol 80 2020-0 Yes 80mg Take 80 mg U nivers mg tablet 1-16 by mouth ity of 00:00: every 12 [place] 00 (twelve) Medical hours. Branch sotalol 80 2020-0 Yes 80mg Take 80 mg U nivers mg tablet 1-16 by mouth ity of 00:00: every 12 [place] 00 (twelve) Medical hours. Branch sotalol 80 2020-0 Yes 80mg Take 80 mg U nivers mg tablet 1-16 by mouth ity of 00:00: every 12 [place] 00 (twelve) Medical hours. Branch sotalol 80 2020-0 Yes 80mg Take 80 mg U nivers mg tablet 1-16 by mouth ity of 00:00: every 12 [place] 00 (twelve) Medical hours. Branch sotalol 80 2020-0 Yes 80mg Take 80 mg U nivers mg tablet 1-16 by mouth ity of 00:00: every 12 [place] 00 (twelve) Medical hours. Branch sotalol 80 2020-0 Yes 80mg Take 80 mg U nivers mg tablet 1-16 by mouth ity of 00:00: every 12 [place] 00 (twelve) Medical hours. Branch sotalol 80 2020-0 Yes 80mg Take 80 mg U nivers mg tablet 1-16 by mouth ity of 00:00: every 12 [place] 00 (twelve) Medical hours. Branch sotalol 80 2020-0 Yes 80mg Take 80 mg U nivers mg tablet 1-16 by mouth ity of 00:00: every 12 [place] 00 (twelve) Medical hours. Branch sotalol 80 2020-0 Yes 80mg Take 80 mg U nivers mg tablet 1-16 by mouth ity of 00:00: every 12 [place] 00 (twelve) Medical hours. Branch sotalol 80 2020-0 Yes 80mg Take 80 mg U nivers mg tablet 1-16 by mouth ity of 00:00: every 12 [place] [address] (twelve) Medical hours. Branch sotalol 80 2020-0 Yes 80mg Take 80 mg U nivers mg tablet 1-16 by mouth ity of 00:00: every 12 [place] 00 (twelve) Medical hours. Branch sotalol 80 2020-0 Yes 80mg Take 80 mg U nivers mg tablet 1-16 by mouth ity of 00:00: every 12 [place] 00 (twelve) Medical hours. Branch sotalol 80 2020-0 Yes 80mg Take 80 mg U nivers mg tablet 1-16 by mouth ity of 00:00: every 12 [place] 00 (twelve) Medical hours. Branch sotalol 80 2020-0 Yes 80mg Take 80 mg U nivers mg tablet 1-16 by mouth ity of 00:00: every 12 [place] [address] (twelve) Medical hours. Branch sotalol 80 2020-0 Yes 80mg Take 80 mg U nivers mg tablet 1-16 by mouth ity of 00:00: every 12 [place] [address] (twelve) Medical hours. Branch sotalol 80 2020-0 Yes 80mg Take 80 mg U nivers mg tablet 1-16 by mouth ity of 00:00: every 12 [place] [address] (twelve) Medical hours. Branch sotalol 80 2020-0 Yes 80mg Take 80 mg U nivers mg tablet 1-16 by mouth ity of 00:00: every 12 [place] [address] (twelve) Medical hours. Branch sotalol 80 2020-0 Yes 80mg Take 80 mg U nivers mg tablet 1-16 by mouth ity of 00:00: every 12 [place] [address] (twelve) Medical hours. Branch sotalol 80 2020-0 Yes 80mg Take 80 mg U nivers mg tablet 1-16 by mouth ity of 00:00: every 12 [place] [address] (twelve) Medical hours. Branch butorphanol 2019-1 Yes USE 1 Unive rs 10 mg/mL 2-20 SPRAY IN ity of nasal spray 00:00: ONE [place] [address] NOSTRIL Medical EVERY 8 Branch HOURS NEEDED FOR HEADACHE butorphanol 2019-1 Yes USE 1 Unive rs 10 mg/mL 2-20 SPRAY IN ity of nasal spray 00:00: ONE [place] [address] NOSTRIL Medical EVERY 8 Branch HOURS NEEDED FOR HEADACHE butorphanol 2019- Yes USE 1 Unive rs 10 mg/mL 2-20 SPRAY IN ity of nasal spray 00:00: ONE [place] [address] NOSTRIL Medical EVERY 8 Branch HOURS NEEDED FOR HEADACHE butorphanol 2018-02 Yes USE 1 Unive rs 10 mg/mL 2-20 SPRAY IN ity of nasal spray 00:00: ONE [place] [address] NOSTRIL Medical EVERY 8 Branch HOURS NEEDED FOR HEADACHE butorphanol 2018-02 Yes USE 1 Unive rs 10 mg/mL 2-20 SPRAY IN ity of nasal spray 00:00: ONE [place] [address] NOSTRIL Medical EVERY 8 Branch HOURS NEEDED FOR HEADACHE butorphanol 2018-02 2020- No USE 1 Univ ers 10 mg/mL 2-20 02-07 SPRAY IN ity of nasal spray 00:00: 00:00 ONE [place] 00 :00 NOSTRIL Medical EVERY 8 Branch HOURS NEEDED FOR HEADACHE butorphanol 2018-02 2020- No USE 1 Univ ers 10 mg/mL 2-20 02-07 SPRAY IN ity of nasal spray 00:00: 00:00 ONE [place] 00 :00 NOSTRIL Medical EVERY 8 Branch HOURS NEEDED FOR HEADACHE pantoprazol 2018-02 Yes 40mg Take 40 mg Univers e 40 mg EC 2-17 by mouth ity o f tablet 00:00: daily. [address] pantoprazol 2018-02 Yes 40mg Take 40 mg Univers e 40 mg EC 2-17 by mouth ity o f tablet 00:00: daily. [address] pantoprazol 2018-02 Yes 40mg Take 40 mg Univers e 40 mg EC 2-17 by mouth ity o f tablet 00:00: daily. [address] pantoprazol 2018- Yes 40mg Take 40 mg Univers e 40 mg EC 2-17 by mouth ity o f tablet 00:00: daily. [address] pantoprazol 2018-02 Yes 40mg Take 40 mg Univers e 40 mg EC 2-17 by mouth ity o f tablet 00:00: daily. [address] pantoprazol 2018- Yes 40mg Take 40 mg Univers e 40 mg EC 2-17 by mouth ity o f tablet 00:00: daily. [address] pantoprazol 2018-02 Yes 40mg Take 40 mg Univers e 40 mg EC 2-17 by mouth ity o f tablet 00:00: daily. [address] pantoprazol 2018- Yes 40mg Take 40 mg Univers e 40 mg EC 2-17 by mouth ity o f tablet 00:00: daily. [place] [facility] pantoprazol 2018-02 Yes 40mg Take 40 mg Univers e 40 mg EC 2-17 by mouth ity o f tablet 00:00: daily. [place] [facility] pantoprazol 2018-02 Yes 40mg Take 40 mg Univers e 40 mg EC 2-17 by mouth ity o f tablet 00:00: daily. [place] [facility] pantoprazol 2018-02 Yes 40mg Take 40 mg Univers e 40 mg EC 2-17 by mouth ity o f tablet 00:00: daily. [place] [facility] pantoprazol 2018-02 Yes 40mg Take 40 mg Univers e 40 mg EC 2-17 by mouth ity o f tablet 00:00: daily. [place] [facility] pantoprazol 2018-02 Yes 40mg Take 40 mg Univers e 40 mg EC 2-17 by mouth ity o f tablet 00:00: daily. [place] [facility] pantoprazol 2018-02 Yes 40mg Take 40 mg Univers e 40 mg EC 2-17 by mouth ity o f tablet 00:00: daily. [place] [facility] pantoprazol 2018-02 Yes 40mg Take 40 mg Univers e 40 mg EC 2-17 by mouth ity o f tablet 00:00: daily. [place] [facility] pantoprazol 2018-02 Yes 40mg Take 40 mg Univers e 40 mg EC 2-17 by mouth ity o f tablet 00:00: daily. [place] [facility] pantoprazol 2018-02 Yes 40mg Take 40 mg Univers e 40 mg EC 2-17 by mouth ity o f tablet 00:00: daily. [place] [facility] pantoprazol 2018-02 Yes 40mg Take 40 mg Univers e 40 mg EC 2-17 by mouth ity o f tablet 00:00: daily. [place] [facility] pantoprazol 2018-02 Yes 40mg Take 40 mg Univers e 40 mg EC 2-17 by mouth ity o f tablet 00:00: daily. [place] [facility] pantoprazol 2018-02 Yes 40mg Take 40 mg Univers e 40 mg EC 2-17 by mouth ity o f tablet 00:00: daily. [address] pantoprazol 2018-02 Yes 40mg Take 40 mg Univers e 40 mg EC 2-17 by mouth ity o f tablet 00:00: daily. [address] pantoprazol 2018-02 Yes 40mg Take 40 mg Univers e 40 mg EC 2-17 by mouth ity o f tablet 00:00: daily. [place] [facility] pantoprazol 2018-02 Yes 40mg Take 40 mg Univers e 40 mg EC 2-17 by mouth ity o f tablet 00:00: daily. [address] pantoprazol 2018-02 Yes 40mg Take 40 mg Univers e 40 mg EC 2-17 by mouth ity o f tablet 00:00: daily. [place] [facility] pantoprazol 2018-02 Yes 40mg Take 40 mg Univers e 40 mg EC 2-17 by mouth ity o f tablet 00:00: daily. [place] [facility] pantoprazol 2018-02 Yes 40mg Take 40 mg Univers e 40 mg EC 2-17 by mouth ity o f tablet 00:00: daily. [address] pantoprazol 2018-02 Yes 40mg Take 40 mg Univers e 40 mg EC 2-17 by mouth ity o f tablet 00:00: daily. [address] pantoprazol 2018-02 Yes 40mg Take 40 mg Univers e 40 mg EC 2-17 by mouth ity o f tablet 00:00: daily. [address] pantoprazol 2018-02 Yes 40mg Take 40 mg Univers e 40 mg EC 2-17 by mouth ity o f tablet 00:00: daily. [address] pantoprazol 2018-02 Yes 40mg Take 40 mg Univers e 40 mg EC 2-17 by mouth ity o f tablet 00:00: daily. [address] pantoprazol 2018-02 Yes 40mg Take 40 mg Univers e 40 mg EC 2-17 by mouth ity o f tablet 00:00: daily. [address] pantoprazol 2018-02 Yes 40mg Take 40 mg Univers e 40 mg EC 2-17 by mouth ity o f tablet 00:00: daily. [address] pantoprazol 2018-02 Yes 40mg Take 40 mg Univers e 40 mg EC 2-17 by mouth ity o f tablet 00:00: daily. [address] pantoprazol 2018-02 Yes 40mg Take 40 mg Univers e 40 mg EC 2-17 by mouth ity o f tablet 00:00: daily. [address] pantoprazol 2018-02 Yes 40mg Take 40 mg Univers e 40 mg EC 2-17 by mouth ity o f tablet 00:00: daily. [place] [facility] pantoprazol 2018-02 Yes 40mg Take 40 mg Univers e 40 mg EC 2-17 by mouth ity o f tablet 00:00: daily. [place] [facility] pantoprazol 2018-02 Yes 40mg Take 40 mg Univers e 40 mg EC 2-17 by mouth ity o f tablet 00:00: daily. [place] [facility] pantoprazol 2018-02 Yes 40mg Take 40 mg Univers e 40 mg EC 2-17 by mouth ity o f tablet 00:00: daily. [place] [facility] pantoprazol 2018-02 Yes 40mg Take 40 mg Univers e 40 mg EC 2-17 by mouth ity o f tablet 00:00: daily. [place] [facility] pantoprazol 2018-02 Yes 40mg Take 40 mg Univers e 40 mg EC 2-17 by mouth ity o f tablet 00:00: daily. [place] [facility] pantoprazol 2018-02 Yes 40mg Take 40 mg Univers e 40 mg EC 2-17 by mouth ity o f tablet 00:00: daily. [place] [facility] pantoprazol 2018-02 Yes 40mg Take 40 mg Univers e 40 mg EC 2-17 by mouth ity o f tablet 00:00: daily. [place] [facility] pantoprazol 2018-02 Yes 40mg Take 40 mg Univers e 40 mg EC 2-17 by mouth ity o f tablet 00:00: daily. [place] [facility] pantoprazol 2018-02 Yes 40mg Take 40 mg Univers e 40 mg EC 2-17 by mouth ity o f tablet 00:00: daily. [place] [facility] pantoprazol 2018-02 Yes 40mg Take 40 mg Univers e 40 mg EC 2-17 by mouth ity o f tablet 00:00: daily. [place] [facility] pantoprazol 2018-02 Yes 40mg Take 40 mg Univers e 40 mg EC 2-17 by mouth ity o f tablet 00:00: daily. [place] [facility] pantoprazol 2018-02 Yes 40mg Take 40 mg Univers e 40 mg EC 2-17 by mouth ity o f tablet 00:00: daily. [address] pantoprazol 2018-02 Yes 40mg Take 40 mg Univers e 40 mg EC 2-17 by mouth ity o f tablet 00:00: daily. [address] pantoprazol 2018-02 Yes 40mg Take 40 mg Univers e 40 mg EC 2-17 by mouth ity o f tablet 00:00: daily. [facility] pantoprazol 2018-02 Yes 40mg Take 40 mg Univers e 40 mg EC 2-17 by mouth ity o f tablet 00:00: daily. [place] [facility] pantoprazol 2018-02 Yes 40mg Take 40 mg Univers e 40 mg EC 2-17 by mouth ity o f tablet 00:00: daily. [place] [facility] pantoprazol 2018-02 Yes 40mg Take 40 mg Univers e 40 mg EC 2-17 by mouth ity o f tablet 00:00: daily. [place] [facility] pantoprazol 2018-02 Yes 40mg Take 40 mg Univers e 40 mg EC 2-17 by mouth ity o f tablet 00:00: daily. [place] [facility] pantoprazol 2018-02 Yes 40mg Take 40 mg Univers e 40 mg EC 2-17 by mouth ity o f tablet 00:00: daily. [facility] pantoprazol 2018-02 Yes 40mg Take 40 mg Univers e 40 mg EC 2-17 by mouth ity o f tablet 00:00: daily. [place] [facility] busPIRone 5 2018-02 Yes [id number] TAKE 1 Univers mg tablet 0- 9102 TABLET BY ity o f 00:00: MOUTH TWICE A Medical DAY Branch busPIRone 5 2018-02 Yes [id number] TAKE 1 [facility] mg tablet 0- 9102 TABLET BY ity o f 00:00: MOUTH TWICE A Medical DAY Branch busPIRone 5 2018-02 Yes [id number] TAKE 1 [facility] mg tablet 0- 9102 TABLET BY ity o f 00:00: MOUTH TWICE A Medical DAY Branch busPIRone 5 2018-02 Yes [id number] TAKE 1 [facility] mg tablet 0-01 9102 TABLET BY ity o f 00:00: MOUTH TWICE A Medical DAY Branch busPIRone 5 2018-02 Yes [id number] TAKE 1 [facility] mg tablet 0-01 9102 TABLET BY ity o f 00:00: MOUTH TWICE A Medical DAY Branch busPIRone 5 2018-02 Yes [id number] TAKE 1 [facility] mg tablet 0- 9102 TABLET BY ity o f 00:00: MOUTH TWICE A Medical DAY Branch busPIRone 5 2018-02 Yes [id number] TAKE 1 [facility] mg tablet 0-02 TABLET BY ity o f 00:00: MOUTH [place] 00 TWICE A Medical DAY Branch busPIRone 5 2018-02 Yes [id number] TAKE 1 [facility] mg tablet 0-02 TABLET BY ity o f 00:00: MOUTH 00 TWICE A Medical DAY Branch busPIRone 5 2018-02 Yes [id number] TAKE 1 [facility] mg tablet 0-02 TABLET BY ity o f 00:00: MOUTH [place] 00 TWICE A Medical DAY Branch busPIRone 5 2018-02 Yes [id number] TAKE 1 [facility] mg tablet 002 TABLET BY ity o f 00:00: MOUTH 00 TWICE A Medical DAY Branch busPIRone 5 2018-02 Yes [id number] TAKE 1 [facility] mg tablet [id number] TABLET BY ity o f 00:00: MOUTH 00 TWICE A Medical DAY Branch busPIRone 5 2018-02 Yes [id number] TAKE 1 [facility] mg tablet 09101 TABLET BY ity o f 00:00: MOUTH 00 TWICE A Medical DAY Branch busPIRone 5 2018-02 Yes [id number] TAKE 1 [facility] mg tablet 002 TABLET BY ity o f 00:00: MOUTH 00 TWICE A Medical DAY Branch busPIRone 5 2018-02 2020- No [id number] TAKE 1 [facility] mg tablet [id number] TABLET BY ity of 00:00: 00:00 MOUTH [place] 00 :00 TWICE A Medical DAY Branch BUSPIRONE 5 Yes [id number] TAKE 1 [facility] mg tablet [id number] TABLET BY ity o f 00:00: MOUTH [place] 00 TWICE A Medical DAY Branch butorphanol Yes [id number] 1{spray Use 1 [facility] 10 mg/mL 08-21 } [place] in ity of nasal spray 00:00: each [...] the ity of human, 100 18:55: skin. [place] unit/mL 56 Medical injection Branch insulin 0 Yes 60U inject 60 Unive rs detemir 5-14 Units ity of U-100 100 18:55: under the [place] unit/mL 56 skin. Medical injection Branch insulin 0 Yes inject Univers lispro, 5-14 under the ity of human, 100 18:55: skin. [place] unit/mL 56 Medical injection Branch insulin 0 [...] the ity of human, 100 18:55: skin. [place] unit/mL 56 Medical injection Branch insulin 0 Yes 60U inject 60 Unive rs detemir 5-14 Units ity of U-100 100 18:55: under the [place] unit/mL 56 skin. Medical injection Branch insulin 0 Yes inject [facility] lispro, 5-14 under the ity of human, 100 18:55: skin. [place] unit/mL 56 Medical injection Branch insulin 0 Yes 60U inject 60 Unive rs detemir 5-14 Units ity of U-100 100 18:55: under the [place] unit/mL 56 skin. Medical injection Branch insulin 0 Yes inject [facility] lispro, 5-14 under the ity of human, 100 18:55: skin. [place] unit/mL 56 Medical injection Branch insulin Yes 60U inject 60 Unive rs detemir 5-14 Units ity of U-100 100 18:55: under the [place] unit/mL 56 skin. Medical injection Branch insulin Yes inject [facility] lispro, 5-14 under the ity of human, 100 18:55: skin. [place] unit/mL 56 Medical injection Branch pregabalin 0 Yes 300mg Take 300 Un osbaldo 300 mg 5-14 mg by ity of capsule 17:05: mouth. [place] [address] Medical Branch hydrALAZINE 0 Yes 50mg Take 50 mg Univers 50 mg 5-14 by mouth. ity of tablet 17:05: [address] losartan-hy 0 Yes Take by Un osbaldo drochloroth 5-14 mouth. ity of iazide 17:05: [place] 100-25 mg 39 Medical per tablet Branch carvedilol 0 Yes 25mg Take 25 mg U nivers 12.5 mg 5-14 by mouth. ity of tablet 17:05: [place] [address] Medical Branch acetaminoph 0 Yes 500mg Take 500 U nivers en (TYLENOL 5-14 mg by ity of EXTRA 17:05: mouth [place] STRENGTH) 39 every 6 Medical 500 mg (six) Branch tablet hours as needed for Pain. aspirin-nhi 2018-0 Yes 1{tbl} Take 1 Un [facility]bal[facility] taminophen- 5-14 tablet by ity of caffeine 17:05: mouth [place] (EXCEDRIN 39 every 6 Medical MIGRAINE) (six) [...] mg by ity of capsule 17:05: mouth. [address] Branch hydrALAZINE 2019-0 Yes 50mg Take 50 mg Univers 50 mg 5-14 by mouth. ity of tablet 17:05: [address] Branch losartan-hy 0 Yes Take by Un osbaldo drochloroth 5-14 mouth. ity of iazide 17:05: [place] 100-25 mg 39 Medical per tablet Branch carvedilol 0 Yes 25mg Take 25 mg U nivers 12.5 mg 5-14 by mouth. ity of tablet 17:05: [address] Branch acetaminoph 0 Yes 500mg Take 500 U nivers en (TYLENOL 5-14 mg by ity of EXTRA 17:05: mouth [place] STRENGTH) 39 every 6 Medical 500 mg (six) Branch tablet hours as needed for Pain. aspirin-nhi 2018-0 Yes 1{tbl} Take 1 Un [facility] taminophen- 5-14 tablet by ity of caffeine 17:05: mouth [place] (EXCEDRIN 39 every 6 Medical MIGRAINE) (six) [...] mg by ity of capsule 17:05: mouth. [address] hydrALAZINE 2019-0 Yes 50mg Take 50 mg Univers 50 mg 5-14 by mouth. ity of tablet 17:05: [place] 39 Medical Branch losartan-hy 2019-0 Yes Take by Un osbaldo drochloroth 5-14 mouth. ity of iazide 17:05: [place] 100-25 mg 39 Medical per tablet Branch carvedilol Yes 25mg Take 25 mg U nivers 12.5 mg 5-14 by mouth. ity of tablet 17:05: [place] [address] Medical Branch acetaminoph Yes 500mg Take 500 [...] mg by ity of capsule 17:05: mouth. [address] Branch pregabalin 0 Yes 300mg Take 300 Un osbaldo 300 mg 5-14 mg by ity of capsule 17:05: mouth. [address] Branch hydrALAZINE Yes 50mg Take 50 mg Univers 50 mg 5-14 by mouth. ity of tablet 17:05: [address] Branch losartan-hy Yes Take by Un osbaldo drochloroth 5-14 mouth. ity of iazide 17:05: [place] 100-25 mg 39 Medical per tablet Branch hydrALAZINE Yes 50mg Take 50 mg Univers 50 mg 5-14 by mouth. ity of tablet 17:05: [address] Branch carvedilol Yes 25mg Take 25 mg U nivers 12.5 mg 5-14 by mouth. ity of tablet 17:05: [address] Branch acetaminoph Yes 500mg Take 500 [...] mg per needed for tablet Pain. nitroglycer 2019- Yes .3mg Place 0.3 U nivers in 0.3 mg 5-14 mg under ity of sublingual 17:05: the tongue [place] tablet 39 every 5 Medical (five) Branch minutes as needed for Chest pain. losartan-hy 2019-0 Yes Take by Un osbaldo drochloroth 5-14 mouth. ity of iazide 17:05: [place] 100-25 mg 39 Medical per tablet Branch pregabalin 2018-0 Yes 300mg Take 300 Un osbaldo 300 mg 5-14 mg by ity of capsule 17:05: mouth. [address] Branch hydrALAZINE 0 Yes 50mg Take 50 mg [facility] 50 mg 5-14 by mouth. ity of tablet 17:05: [place] [address] Medical Branch losartan-hy 2018-0 Yes Take by Un osbaldo drochloroth 5-14 mouth. ity of iazide 17:05: [place] 100-25 mg 39 Medical per tablet Branch carvedilol 0 Yes 25mg Take 25 mg U nivers 12.5 mg 5-14 by mouth. ity of tablet 17:05: [address] Branch acetaminoph 2019-0 Yes 500mg Take [...] mg by ity of capsule 17:05: mouth. [address] Branch hydrALAZINE 0 Yes 50mg Take 50 mg Univers 50 mg 5-14 by mouth. ity of tablet 17:05: [address] Branch losartan-hy 0 Yes Take by Un osbaldo drochloroth 5-14 mouth. ity of iazide 17:05: [place] 100-25 mg 39 Medical per tablet Branch carvedilol 2018-0 Yes 25mg Take 25 mg U nivers 12.5 mg 5-14 by mouth. ity of tablet 17:05: [address] Branch acetaminoph 0 Yes 500mg Take 500 U nivers en (TYLENOL 5-14 mg by ity of EXTRA 17:05: mouth [place] STRENGTH) 39 every 6 Medical 500 mg (six) Branch tablet hours as needed for Pain. aspirin-nhi 0 Yes 1{tbl} Take 1 Un osbal[facility] taminophen- [...] 5-14 by mouth. ity of tablet 17:05: [address] Branch pregabalin 2018-0 Yes 300mg Take 300 Un osbaldo 300 mg 5-14 mg by ity of capsule 17:05: mouth. [address] Branch hydrALAZINE 0 Yes 50mg Take 50 mg Univers 50 mg 5-14 by mouth. ity of tablet 17:05: [address] Branch losartan-hy 0 Yes Take by Un [facility] drochloroth 5-14 mouth. ity of iazide 17:05: [place] 100-25 mg 39 Medical per tablet Branch [...] minutes as needed for Chest pain. aspirin-nhi 2019-0 Yes 1{tbl} Take 1 Un [...] mg by ity of capsule 17:05: mouth. [address] Branch hydrALAZINE 2018-0 Yes 50mg Take 50 mg Univers 50 mg 5-14 by mouth. ity of tablet 17:05: [address] Branch losartan-hy 2018-0 Yes Take by Un [facility] drochloroth 5-14 mouth. ity of iazide 17:05: [place] 100-25 mg 39 Medical per tablet Branch acetaminoph 2019-0 Yes 500mg Take 500 U nivers en (TYLENOL 5-14 mg by ity of EXTRA 17:05: mouth [place] STRENGTH) 39 every 6 Medical 500 mg (six) Branch tablet hours as needed for Pain. nitroglycer 2019-[address] 0.3 U nivers in 0.3 mg 5-14 mg under ity of sublingual 17:05: the tongue [place] tablet 39 every 5 Medical (five) Branch minutes as needed for Chest pain. pregabalin 2019-0 Yes 300mg Take 300 Un [facility]bal[facility] 300 mg 5-14 mg by ity of capsule 17:05: mouth. [address] Branch hydrALAZINE 2019-0 Yes 50mg Take 50 mg Univers 50 mg 5-14 by mouth. ity of tablet 17:05: [address] Branch losartan-hy 2018-0 Yes Take by Un [facility] drochloroth 5-14 mouth. ity of iazide 17:05: [place] 100-25 mg 39 Medical per tablet Branch carvedilol 0 Yes 25mg Take 25 mg U nivers 12.5 mg 5-14 by mouth. ity of tablet 17:05: [address] Branch acetaminoph 0 Yes 500mg Take [...] mg by ity of capsule 17:05: mouth. [address] Branch hydrALAZINE 2018-0 Yes 50mg Take 50 mg Univers 50 mg 5-14 by mouth. ity of tablet 17:05: [address] Branch losartan-hy 0 Yes Take by Un osbal[facility] drochloroth 5-14 mouth. ity of iazide 17:05: [place] 100-25 mg 39 Medical per tablet Branch carvedilol 2018-0 Yes 25mg Take 25 mg U nivers 12.5 mg 5-14 by mouth. ity of tablet 17:05: [place] [address] Medical Branch acetaminoph 0 Yes 500mg Take 500 U nivers en (TYLENOL 5-14 mg by ity of EXTRA 17:05: mouth [place] STRENGTH) 39 every 6 Medical 500 mg [...] mg by ity of capsule 17:05: mouth. [address] Branch hydrALAZINE 2019-0 Yes 50mg Take 50 mg Univers 50 mg 5-14 by mouth. ity of tablet 17:05: [address] Branch losartan-hy 2018-0 Yes Take by Un os[facility] drochloroth 5-14 mouth. ity of iazide 17:05: [place] 100-25 mg 39 Medical per tablet Branch carvedilol 2018-0 Yes 25mg Take 25 mg U nivers 12.5 mg 5-14 by mouth. ity of tablet 17:05: [address] Branch acetaminoph 2018-0 Yes 500mg Take 500 U nivers en (TYLENOL 5-14 mg by ity of EXTRA 17:05: mouth [place] STRENGTH) 39 every 6 Medical 500 mg (six) Branch tablet hours as needed for Pain. aspirin-nhi 2018-0 Yes 1{tbl} Take 1 Un [facility] taminophen- 5-14 tablet by ity of caffeine 17:05: mouth [place] (EXCEDRIN 39 every 6 Medical MIGRAINE) (six) [...] mg by ity of capsule 17:05: mouth. [address] Branch hydrALAZINE 2018-0 Yes 50mg Take 50 mg Univers 50 mg 5-14 by mouth. ity of tablet 17:05: [address] Branch losartan-hy 2018-0 Yes Take by Un [facility] drochloroth 5-14 mouth. ity of iazide 17:05: [place] 100-25 mg 39 Medical per tablet Branch carvedilol Yes 25mg Take 25 mg U nivers 12.5 mg 5-14 by mouth. ity of tablet 17:05: [place] 39 Medical Branch acetaminoph 0 Yes 500mg Take [...] for Chest pain. busPIRone 5 2019- No [id number] 5mg Take 1 Univers mg tablet 5-14 09-08 9102 tablet by ity of 00:00: 00:00 mouth 2 [place] 00 :00 (two) Medical times Branch daily. methIMAzole Yes 10mg Take 10 mg Univers 10 mg 4-24 by mouth ity of tablet 00:00: daily. [place] [facility] methIMAzole Yes 10mg Take 10 mg [facility] 10 mg 4-24 by mouth ity of tablet 00:00: daily. [place] [facility] methIMAzole Yes 10mg Take 10 mg [facility] 10 mg 4-24 by mouth ity of tablet 00:00: daily. [place] [facility] methIMAzole Yes 10mg Take 10 mg [facility] 10 mg 4-24 by mouth ity of tablet 00:00: daily. [address] methIMAzole Yes 10mg Take 10 mg Univers 10 mg 4-24 by mouth ity of tablet 00:00: daily. [address] methIMAzole Yes 10mg Take 10 mg [facility] 10 mg 4-24 by mouth ity of tablet 00:00: daily. [facility] methIMAzole 2019-0 Yes 10mg Take 10 mg Univers 10 mg 4-24 by mouth ity of tablet 00:00: daily. [facility] methIMAzole 2019-0 Yes 10mg Take 10 mg Univers 10 mg 4-24 by mouth ity of tablet 00:00: daily. [place] [facility] methIMAzole 2019-0 Yes 10mg Take 10 mg Univers 10 mg 4-24 by mouth ity of tablet 00:00: daily. [facility] methIMAzole 2019-0 Yes 10mg Take 10 mg Univers 10 mg 4-24 by mouth ity of tablet 00:00: daily. [place] [facility] methIMAzole 2018-0 Yes 10mg Take 10 mg Univers 10 mg 4-24 by mouth ity of tablet 00:00: daily. [place] [facility] methIMAzole 2018-0 Yes 10mg Take 10 mg Univers 10 mg 4-24 by mouth ity of tablet 00:00: daily. [place] [facility] methIMAzole 2018-0 Yes 10mg Take 10 mg Univers 10 mg 4-24 by mouth ity of tablet 00:00: daily. [place] [facility] methIMAzole 2018-0 Yes 10mg Take 10 mg Univers 10 mg 4-24 by mouth ity of tablet 00:00: daily. [place] [facility] methIMAzole 2019-0 Yes 10mg Take 10 mg Univers 10 mg 4-24 by mouth ity of tablet 00:00: daily. [place] [facility] methIMAzole 2019-0 Yes 10mg Take 10 mg Univers 10 mg 4-24 by mouth ity of tablet 00:00: daily. [place] [facility] methIMAzole 2019-0 Yes 10mg Take 10 mg Univers 10 mg 4-24 by mouth ity of tablet 00:00: daily. [place] [facility] methIMAzole 2019-0 Yes 10mg Take 10 mg Univers 10 mg 4-24 by mouth ity of tablet 00:00: daily. [place] [facility] methIMAzole 2019-0 Yes 10mg Take 10 mg Univers 10 mg 4-24 by mouth ity of tablet 00:00: daily. [place] [facility] methIMAzole 2019-0 Yes 10mg Take 10 mg Univers 10 mg 4-24 by mouth ity of tablet 00:00: daily. [place] [facility] methIMAzole 2019-0 Yes 10mg Take 10 mg Univers 10 mg 4-24 by mouth ity of tablet 00:00: daily. [place] [facility] methIMAzole 2019-0 Yes 10mg Take 10 mg Univers 10 mg 4-24 by mouth ity of tablet 00:00: daily. [place] [facility] methIMAzole 2019-0 Yes 10mg Take 10 mg Univers 10 mg 4-24 by mouth ity of tablet 00:00: daily. [place] [facility] methIMAzole 2019-0 Yes 10mg Take 10 mg Univers 10 mg 4-24 by mouth ity of tablet 00:00: daily. [place] [facility] methIMAzole 2019-0 Yes 10mg Take 10 mg Univers 10 mg 4-24 by mouth ity of tablet 00:00: daily. [place] [facility] methIMAzole 2019-0 Yes 10mg Take 10 mg Univers 10 mg 4-24 by mouth ity of tablet 00:00: daily. [place] [facility] methIMAzole 2019-0 Yes 10mg Take 10 mg Univers 10 mg 4-24 by mouth ity of tablet 00:00: daily. [place] [facility] methIMAzole 2019-0 Yes 10mg Take 10 mg Univers 10 mg 4-24 by mouth ity of tablet 00:00: daily. [place] [facility] methIMAzole 2019-0 Yes 10mg Take 10 mg Univers 10 mg 4-24 by mouth ity of tablet 00:00: daily. [place] [facility] methIMAzole 2019-0 Yes 10mg Take 10 mg Univers 10 mg 4-24 by mouth ity of tablet 00:00: daily. [place] [facility] methIMAzole 2019-0 Yes 10mg Take 10 mg Univers 10 mg 4-24 by mouth ity of tablet 00:00: daily. [place] [facility] methIMAzole 2019-0 Yes 10mg Take 10 mg Univers 10 mg 4-24 by mouth ity of tablet 00:00: daily. [place] [facility] methIMAzole 2019-0 Yes 10mg Take 10 mg Univers 10 mg 4-24 by mouth ity of tablet 00:00: daily. [place] [facility] methIMAzole 2019-0 Yes 10mg Take 10 mg Univers 10 mg 4-24 by mouth ity of tablet 00:00: daily. [place] [facility] methIMAzole 2019-0 Yes 10mg Take 10 mg Univers 10 mg 4-24 by mouth ity of tablet 00:00: daily. [facility] methIMAzole 2019-0 Yes 10mg Take 10 mg Univers 10 mg 4-24 by mouth ity of tablet 00:00: daily. [facility] methIMAzole 2019-0 Yes 10mg Take 10 mg Univers 10 mg 4-24 by mouth ity of tablet 00:00: daily. [facility] methIMAzole 2019-0 Yes 10mg Take 10 mg Univers 10 mg 4-24 by mouth ity of tablet 00:00: daily. [facility] methIMAzole 2019-0 Yes 10mg Take 10 mg [facility] 10 mg 4-24 by mouth ity of tablet 00:00: daily. [place] [facility] methIMAzole 2019-0 Yes 10mg Take 10 mg Univers 10 mg 4-24 by mouth ity of tablet 00:00: daily. [place] [facility] methIMAzole 2019-0 Yes 10mg Take 10 mg Univers 10 mg 4-24 by mouth ity of tablet 00:00: daily. [place] [facility] methIMAzole 2019-0 Yes 10mg Take 10 mg Univers 10 mg 4-24 by mouth ity of tablet 00:00: daily. [place] [facility] methIMAzole 2019-0 Yes 10mg Take 10 mg Univers 10 mg 4-24 by mouth ity of tablet 00:00: daily. [place] [facility] methIMAzole 2019-0 Yes 10mg Take 10 mg Univers 10 mg 4-24 by mouth ity of tablet 00:00: daily. [place] [facility] methIMAzole 2019-0 Yes 10mg Take 10 mg Univers 10 mg 4-24 by mouth ity of tablet 00:00: daily. [place] [facility] methIMAzole 2019-0 Yes 10mg Take 10 mg Univers 10 mg 4-24 by mouth ity of tablet 00:00: daily. [place] [facility] methIMAzole 2019-0 Yes 10mg Take 10 mg Univers 10 mg 4-24 by mouth ity of tablet 00:00: daily. [place] [facility] methIMAzole 2019-0 Yes 10mg Take 10 mg Univers 10 mg 4-24 by mouth ity of tablet 00:00: daily. [place] [facility] methIMAzole 2019-0 Yes 10mg Take 10 mg Univers 10 mg 4-24 by mouth ity of tablet 00:00: daily. [facility] methIMAzole 2019-0 Yes 10mg Take 10 mg Univers 10 mg 4-24 by mouth ity of tablet 00:00: daily. [facility] methIMAzole 2019-0 Yes 10mg Take 10 mg Univers 10 mg 4-24 by mouth ity of tablet 00:00: daily. [place] [facility] methIMAzole 2019-0 Yes 10mg Take 10 mg Univers 10 mg 4-24 by mouth ity of tablet 00:00: daily. [facility] methIMAzole 2019-0 Yes 10mg Take 10 mg Univers 10 mg 4-24 by mouth ity of tablet 00:00: daily. [place] [facility] methIMAzole 2019-0 Yes 10mg Take 10 mg Univers 10 mg 4-24 by mouth ity of tablet 00:00: daily. [place] [facility] methIMAzole 2019-0 Yes 10mg Take 10 mg Univers 10 mg 4-24 by mouth ity of tablet 00:00: daily. [place] [facility] methIMAzole 2019-0 Yes 10mg Take 10 mg Univers 10 mg 4-24 by mouth ity of tablet 00:00: daily. [place] [facility] methIMAzole 2019-0 Yes 10mg Take 10 mg Univers 10 mg 4-24 by mouth ity of tablet 00:00: daily. [place] [facility] methIMAzole 2019-0 Yes 10mg Take 10 mg Univers 10 mg 4-24 by mouth ity of tablet 00:00: daily. [place] [facility] methIMAzole 2019-0 Yes 10mg Take 10 mg Univers 10 mg 4-24 by mouth ity of tablet 00:00: daily. [place] [facility] methIMAzole 2019-0 Yes 10mg Take 10 mg Univers 10 mg 4-24 by mouth ity of tablet 00:00: daily. [place] [facility] methIMAzole 2019-0 Yes 10mg Take 10 mg Univers 10 mg 4-24 by mouth ity of tablet 00:00: daily. [place] [facility] methIMAzole 2019-0 Yes 10mg Take 10 mg Univers 10 mg 4-24 by mouth ity of tablet 00:00: daily. [place] [facility] methIMAzole 2019-0 Yes 10mg Take 10 mg Univers 10 mg 4-24 by mouth ity of tablet 00:00: daily. [place] [facility] methIMAzole 2019-0 Yes 10mg Take 10 mg [...] BY ity o f 00:00: 2 TIMES [place] DAY Medical Branch doxazosin 2 Yes TAKE 0.5 Un osbaldo mg tablet 4-22 TABLET BY ity o f 00:00: 2 TIMES [place] DAY Medical Branch doxazosin 2 Yes TAKE 0.5 Un [facility] mg tablet 4-22 TABLET BY ity o f 00:00: 2 TIMES [place] DAY Medical Branch doxazosin 2 Yes TAKE 0.5 Un [facility] mg tablet 4-22 TABLET BY ity o f 00:00: 2 TIMES [place] DAY Medical Branch doxazosin 2 Yes TAKE 0.5 Un [facility] mg tablet 4-22 TABLET BY ity o f 00:00: 2 TIMES [place] DAY Medical Branch doxazosin 2 Yes TAKE 0.5 Un [facility] mg tablet 4-22 TABLET BY ity o f 00:00: 2 TIMES [place] DAY Medical Branch doxazosin 2 Yes TAKE 0.5 Un [facility] mg tablet 4-22 TABLET BY ity o f 00:00: 2 TIMES [place] DAY Medical Branch doxazosin 2 Yes TAKE 0.5 Un [facility] mg tablet 4-22 TABLET BY ity o f 00:00: 2 TIMES [place] DAY Medical Branch doxazosin 2 Yes TAKE 0.5 Un [facility] mg tablet 4-22 TABLET BY ity o f 00:00: 2 TIMES [place] 00 EVERY DAY Medical Branch doxazosin 2 2019-0 Yes TAKE 0.5 Un [facility] mg tablet 4-22 TABLET BY ity o f 00:00: 2 TIMES [place] 00 EVERY DAY Medical Branch doxazosin 2 2019-0 Yes TAKE 0.5 Un [facility] mg tablet 4-22 TABLET BY ity o f 00:00: 2 TIMES [place] EVERY DAY Medical Branch doxazosin 2 2019-0 Yes TAKE 0.5 Un [facility] mg tablet 4-22 TABLET BY ity o f 00:00: 2 TIMES [place] EVERY DAY Medical Branch doxazosin 2 2019-0 Yes TAKE 0.5 Un osbad[facility] mg tablet 4-22 TABLET BY ity o f 00:00: 2 TIMES [place] EVERY DAY Medical Branch doxazosin 2 2019-0 Yes TAKE 0.5 Un [facility]bal[facility] mg tablet 4-22 TABLET BY ity o f 00:00: 2 TIMES [place] EVERY DAY Medical Branch doxazosin 2 2019-0 2020- No TAKE 0.5 U nivers mg tablet 4-22 03-06 TABLET BY ity of 00:00: 00:00 2 TIMES [place] 00 :00 EVERY DAY Medical Branch hydrALAZINE 2019-0 Yes TAKE 1 Univ ers 100 mg 4-16 TABLET BY ity of tablet 00:00: [facility] 00 THREE Medical TIMES A Branch DAY WITH FOOD hydrALAZINE 2019-0 Yes TAKE 1 Univ ers 100 mg 4-16 TABLET BY ity of tablet 00:00: [facility] 00 THREE Medical TIMES A Branch DAY WITH FOOD hydrALAZINE 2019-0 Yes TAKE 1 Univ ers 100 mg 4-16 TABLET BY ity of tablet 00:00: [facility] THREE Medical TIMES A Branch DAY WITH FOOD hydrALAZINE 2019-0 Yes TAKE 1 Univ ers 100 mg 4-16 TABLET BY ity of tablet 00:00: [facility] 00 THREE Medical TIMES A Branch DAY WITH FOOD hydrALAZINE 2019-0 Yes TAKE 1 Univ ers 100 mg 4-16 TABLET BY ity of tablet 00:00: [facility] 00 THREE Medical TIMES A Branch DAY WITH FOOD hydrALAZINE 2019-0 Yes TAKE 1 Univ ers 100 mg 4-16 TABLET BY ity of tablet 00:00: [facility] 00 THREE Medical TIMES A Branch DAY WITH FOOD hydrALAZINE 2019-0 Yes TAKE 1 Univ ers 100 mg 4-16 TABLET BY ity of tablet 00:00: [facility] 00 THREE Medical TIMES A Branch DAY WITH FOOD hydrALAZINE 2019-0 Yes TAKE 1 Univ ers 100 mg 4-16 TABLET BY ity of tablet 00:00: [facility] 00 THREE Medical TIMES A Branch DAY WITH FOOD hydrALAZINE 2019-0 Yes TAKE 1 Univ ers 100 mg 4-16 TABLET BY ity of tablet 00:00: [facility] [place] THREE Medical TIMES A Branch DAY WITH FOOD hydrALAZINE 2019-0 Yes TAKE 1 Univ ers 100 mg 4-16 TABLET BY ity of tablet 00:00: [facility] [place] THREE Medical TIMES A Branch DAY WITH FOOD hydrALAZINE 2019-0 Yes TAKE 1 Univ ers 100 mg 4-16 TABLET BY ity of tablet 00:00: [facility] [place] THREE Medical TIMES A Branch DAY WITH FOOD hydrALAZINE 2019-0 Yes TAKE 1 Univ ers 100 mg 4-16 TABLET BY ity of tablet 00:00: [facility] [place] THREE Medical TIMES A Branch DAY WITH FOOD hydrALAZINE 2019-0 Yes TAKE 1 Univ ers 100 mg 4-16 TABLET BY ity of tablet 00:00: [facility] [place] THREE Medical TIMES A Branch DAY WITH FOOD hydrALAZINE 2019-0 Yes TAKE 1 Univ ers 100 mg 4-16 TABLET BY ity of tablet 00:00: [facility] [place] THREE Medical TIMES A Branch DAY WITH FOOD hydrALAZINE 2019-0 2020- No TAKE 1 Uni vers 100 mg 4-16 03-06 TABLET BY ity of tablet 00:00: 00:00 [facility] [place] 00 :00 THREE Medical TIMES A Branch DAY WITH FOOD spironolact 2019-0 Yes 25mg Take 25 mg Univers one 25 mg 3-22 by mouth ity of tablet 00:00: daily. [place] [facility] spironolact 2019-0 Yes 25mg Take 25 mg Univers one 25 mg 3-22 by mouth ity of tablet 00:00: daily. [place] [facility] Branch spironolact 2019-0 Yes 25mg Take 25 mg Univers one 25 mg 3-22 by mouth ity of tablet 00:00: daily. [place] [facility] spironolact 2019-0 Yes 25mg Take 25 mg Univers one 25 mg 3-22 by mouth ity of tablet 00:00: daily. [place] [facility] spironolact 2019-0 Yes 25mg Take 25 mg Univers one 25 mg 3-22 by mouth ity of tablet 00:00: daily. [place] [facility] spironolact 2019-0 Yes 25mg Take 25 mg Univers one 25 mg 3-22 by mouth ity of tablet 00:00: daily. [place] [facility] spironolact 2019-0 Yes 25mg Take 25 mg Univers one 25 mg 3-22 by mouth ity of tablet 00:00: daily. [place] [facility] spironolact 2019-0 Yes 25mg Take 25 mg Univers one 25 mg 3-22 by mouth ity of tablet 00:00: daily. [place] [facility] spironolact 2019-0 Yes 25mg Take 25 mg Univers one 25 mg 3-22 by mouth ity of tablet 00:00: daily. [place] [facility] spironolact 2019-0 Yes 25mg Take 25 mg Univers one 25 mg 3-22 by mouth ity of tablet 00:00: daily. [place] [facility] spironolact 2019-0 Yes 25mg Take 25 mg Univers one 25 mg 3-22 by mouth ity of tablet 00:00: daily. [place] [facility] spironolact 2019-0 Yes 25mg Take 25 mg Univers one 25 mg 3-22 by mouth ity of tablet 00:00: daily. [place] [facility] spironolact 2019-0 Yes 25mg Take 25 mg Univers one 25 mg 3-22 by mouth ity of tablet 00:00: daily. [place] [facility] spironolact 2019-0 Yes 25mg Take 25 mg Univers one 25 mg 3-22 by mouth ity of tablet 00:00: daily. [address] spironolact 2019-0 2020- No 25mg Take 25 mg Univers one 25 mg 3-22 - by mouth ity o f tablet 00:00: 00:00 daily. [place] 00 :00 [facility] Immunizations Ordered Filled Immunization Date Status Comments [facility] e Immunization Name Name SARS-COV-2 COVID-19 2020-05-12 Completed Unive rsity of MODERNA VACCINE 00:00:00 [facility] SARS-COV-2 COVID-19 2020-05-12 Completed Unive rsity of MODERNA VACCINE 00:00:00 [facility] SARS-COV-2 COVID-19 2020-05-12 Completed Unive rsity of MODERNA VACCINE 00:00:00 [facility] SARS-COV-2 COVID-19 2020-04-14 Completed Unive rsity of [...] Unive rsity of MODERNA VACCINE 00:00:00 [place] [facility] ical Branch SARS-COV-2 COVID-19 2020-04-14 Completed Unive rsity of MODERNA VACCINE 00:00:00 [place] [facility] ical Branch SARS-COV-2 COVID-19 2020-04-14 Completed Unive rsity of MODERNA VACCINE 00:00:00 [place] [facility] ical Branch SARS-COV-2 COVID-19 2020-04-14 Completed Unive rsity of MODERNA VACCINE 00:00:00 [place] [facility] ical Branch SARS-COV-2 COVID-19 2020-04-14 Completed Unive rsity of MODERNA VACCINE 00:00:00 [place] [facility] ical Branch SARS-COV-2 COVID-19 2020-04-14 Completed Unive rsity of MODERNA VACCINE 00:00:00 [place] [facility] ical Branch SARS-COV-2 COVID-19 2020-04-14 Completed Unive rsity of MODERNA VACCINE 00:00:00 [facility] ical [facility] SARS-COV-2 COVID-19 2020-04-14 Completed Unive rsity of MODERNA VACCINE 00:00:00 [facility] SARS-COV-2 COVID-19 2020-04-14 Completed Unive rsity of MODERNA VACCINE 00:00:00 [facility] SARS-COV-2 COVID-19 2020-04-14 Completed Unive rsity of MODERNA VACCINE 00:00:00 [facility] SARS-COV-2 COVID-19 2020-04-14 Completed Unive rsity of MODERNA VACCINE 00:00:00 [facility] SARS-COV-2 COVID-19 2020-04-14 Completed Unive rsity of MODERNA VACCINE 00:00:00 [facility] Vital Signs Vital Name Observation Time Observation Value Comments Source Body height 2019-04-20 15:34:00 165.1 cm Universi ty of [facility] Body weight 2019-04-20 15:34:00 104.327 kg Universi ty of [facility] BMI 2019-04-20 15:34:00 38.27 kg/m2 Universi ty of [facility] Systolic blood 2019-03-23 16:31:00 173 mm[Hg] Univer sity of pressure [facility] Diastolic blood 2019-03-23 16:31:00 90 mm[Hg] Unive rsity of [facility] Heart rate 2019-03-23 16:31:00 64 /min Universi ty of [facility] Body temperature 2019-03-23 16:31:00 36.72 Bailey [facility] ersity of [facility] Respiratory rate 2019-03-23 16:31:00 18 /min [facility] height 2019-03-23 16:31:00 165.1 cm Universi ty of [facility] Body weight 2019-03-23 16:31:00 97.24 kg Universi ty of [facility] BMI 2019-03-23 16:31:00 35.67 kg/m2 Universi ty [facility] Procedures Procedure Date / Time Performing Clinician Source Performed [id number] 2021-05-24 00:00:00 MUM [facility] MEDICATION CORRESPONDENCE 2020-01-21 06:01:00 Doctor Unassigned, [facility] Encounters Start End Encounter Admission Attending Care Care Encounter Source Date/Time Date/Time Type Type Clinicians Facility Department ID 2021-06-09 Outpatient [facility] [id number] [place] 14:19:02 [id number] Health 2021-06-22 2021-06-22 Outpatient EFRAÍN ALEXANDER [facility] [id number] [facility] 10:40:00 10:40:00 EFRAÍN CARTER [id number] [facility] 2021-06-22 2021-06-22 Outpatient R EFRAÍN CARTER [facility] [id number] Univers 10:40:00 10:40:00 EFRAÍN CARTER [facility] 2021-06-17 2021-06-17 Telephone [facility] 1.2.840.114 [id number] Univers 00:00:00 00:00:00 Efraín [facility] 350.1.13.10 ity [facility] 4.2.7.2.686 Trino as MARQUES?BLEA [phone] [address] MEDICAL OFFICE [facility] 2021-05-17 2021-05-27 Inpatient EM Elayne [facility] MED [id number] [facility] 02:24:00 14:50:00 [id number] [facility] 2021-05-17 2021-05-27 Inpatient EM Elayne [facility] MED [id number] [facility] 02:24:00 14:50:00 65 [facility] 2020-09-07 2020-09-07 [facility] 1.2.840.114 [id number] Univers 00:00:00 00:00:00 Efraín De [place] 350.1.13.10 it[place] [phone] [address] 2020-06-18 2020-06-18 Refalfonzo [facility] 1.2.840.114 [id number] Univers 00:00:00 00:00:00 Efraín [place] 350.1.13.10 it[place] [phone] [address] 2020-05-12 2020-05-12 Outpatient Bridgette BREWER [facility] [id number] Univers 16:00:00 16:00:00 ALLA [facility] 2020-04-18 2020-04-18 Telephone [facility] .2.840.114 [id number] Univers 00:00:00 00:00:00 Efraín Foster 350.1.13.10 [place] [phone] Ct dicaz nal [address] [place] [address] 2020-04-18 2020-04-18 Telephone [facility] 1.2.840.114 [id number] Univers 00:00:00 00:00:00 Efraín Foster 350.1.13.10 it[place] [phone] [address] 2020-04-18 2020-04-18 Refill [facility] 1.2.840.114 [id number] Univers 00:00:00 00:00:00 Efraín Foster 350.1.13.10 it[place] [phone] [facility] nal [address] [place] [address] 2020-04-17 2020-04-17 Telephone [facility] 1.2.840.114 [id number] Univers 00:00:00 00:00:00 Efraín Foster [id number] it[place] [phone] [address] 2020-04-16 2020-04-16 Telephone [facility] 1.2.840.114 [id number] Univers 00:00:00 00:00:00 Efraín De Los [place] 350.1.13.10 ity [place] [phone] Ct dicaz nal [address] [place] [address] 2020-04-16 2020-04-16 Refill [facility] 1.2.840.114 [id number] Univers 00:00:00 00:00:00 Efraín De Los [place]oston 350.1.13.10 ity [place] [phone] [facility] 059 [facility] 2020-04-16 2020-04-16 Refill [facility] 1.2.840.114 [id number] Univers 00:00:00 00:00:00 Efraín Radford Kristin 350.1.13.10 it[place] [phone] [address] 2020-04-14 2020-04-14 Outpatient [facility] [id number]-20 Univers 15:50:00 15:50:00 ALLA [id number] [facility] 2020-04-14 2020-04-14 Outpatient Bridgette [facility] [id number] Univers 15:50:00 15:50:00 ALLA [facility] 2020-03-19 2020-03-19 Telephone [facility] 1.2.840.114 [id number] Univers 00:00:00 00:00:00 Efraín Foster 350.1.13.10 [place] [phone] [address] 2020-02-28 2020-02-28 Telephone [facility] 1.2.840.114 [id number] Univers 00:00:00 00:00:00 Efraín Foster 350.1.13.10 [place] [phone] [address] 2020-02-19 2020-02-19 Refill [facility] 1.2.840.114 [id number] Univers 00:00:00 00:00:00 Efraín Tiffany Kristin 350.1.13.10 it[place] [phone] [address] 2020-01-21 2020-01-21 [facility] 1.2.840.114 [id number] Univers 00:00:00 00:00:00 Efraín Foster 350.1.13.10 [place] [phone] [address] 2020-01-21 2020-01-21 Orders Doctor HOANG 1.2.840.114 [id number] Univers 00:00:00 00:00:00 Only Unassigned, JESUSITA 350.1.13.[address] [facility] 4.2.7.2.686 Trino as [phone] [address] 2019-12-25 2019-12-25 [facility] 1.2.840.114 [id number] Univers 00:00:00 00:00:00 Efraín Foster 350.1.13.10 [place] [phone] [address] 2019-12-24 2019-12-24 Gay Emma, [facility] 1.2.840.114 [id number] Univers 00:00:00 00:00:00 Efraín Foster 350.1.13.10 [place] [phone] [address] 2019 2019 [facility] 1.2.840.114 [id number] Univers 00:00:00 00:00:00 Efraín Foster 350.1.13.10 [place] [phone] [address] 2019-11-23 2019-11-23 [facility] 1.2.840.114 [id number] Univers 00:00:00 00:00:00 Efraín Foster 350.1.13.10 [place] [phone] [address] 2019-11-23 2019-11-23 [facility] 1.2.840.114 [id number] Univers 00:00:00 00:00:00 Efraín Foster 350.1.13.10 it[place] [phone] [address] 2019-10-29 2019-10-29 [facility] 1.2.840.114 [id number] Univers 00:00:00 00:00:00 Efraín Foster 350.1.13.10 [place] [phone] [address] 2019-10-26 2019-10-26 [facility] 1.2.840.114 [id number] Univers 00:00:00 00:00:00 Efraín Foster 350.1.13.10 [place] [phone] [address] 2019-09-28 2019-09-28 [facility] Emma, [facility] 1.2.840.114 [id number] Univers 00:00:00 00:00:00 Efraín Foster 350.1.13.10 it[place] [phone] [address] 2019-09-28 2019-09-28 [facility] 1.2.840.114 [id number] Univers 00:00:00 00:00:00 Efraín Foster 350.1.13.10 [place] [phone] [address] 2019-09-25 2019-09-25 [facility] Emma, [facility] 1.2.840.114 [id number] Univers 00:00:00 00:00:00 Efraín Foster 350.1.13.10 it[place] [phone] [address] 2019-09-10 2019-09-10 Outpatient R [facility] [id number] Univers 13:00:00 13:00:00 [id number] ity of [facility] 2019-09-10 2019-09-10 Outpatient R [facility] [id number] Univers 13:00:00 13:00:00 KRISTEL ity of [facility] 2019-08-22 2019-08-22 Gay [facility] 1.2.840.114 [id number] Univers 00:00:00 00:00:00 Efraín Radford Martin 350.1.13.10 [place] [phone] [address] 2019-07-23 2019-07-23 [facility] 1.2.840.114 [id number] Univers 00:00:00 00:00:00 Efraín Gene [place] 350.1.13.10 it[place].2.[place] [phone] [address] 2019-07-20 2019-07-20 [facility] 1.2.840.114 [id number] Univers 00:00:00 00:00:00 Efraín Gene [place] 350.1.13.10 [place].2.[place] [phone] [address] 2019-07-20 2019-07-20 [facility] 1.2.840.114 [id number] Univers 00:00:00 00:00:00 Efraín Gene [place] 350.1.13.10 [place].2.[place] [phone] [address] 2019-07-20 2019-07-20 [facility] 1.2.840.114 [id number] Univers 00:00:00 00:00:00 Efraín Gene [place] 350.1.13.10 it[place].2.[place] [phone] [address] 2019-07-19 2019-07-19 [facility] 1.2.840.114 [id number] Univers 00:00:00 00:00:00 Efraín Gene [place] 350.1.13.10 [place] [phone] [facility] 092 [facility] 2019-07-18 2019-07-18 Refill Emma [facility] 1.2.840.114 [id number] Univers 00:00:00 00:00:00 Efraín De Los Santoston 350.1.13.10 ity [place] [phone] [facility] 092 [facility] 2019-07-06 2019-07-06 Telephone [facility] 1.2.840.114 [id number] Univers 00:00:00 00:00:00 Efraín Radford Kristin 350.1.13.10 it[place].2.[place] [phone] [address] 2019-07-05 2019-07-05 Refill Kiran [facility] 1.2.840.114 [id number] Univers 00:00:00 00:00:00 [employer] [place] 350.1.13.10 ity of [place] 4.2.7.2.686 Trino [address]io [phone] [facility] 044 [facility] 2019-07-03 2019-07-03 Telemedici Emma [facility] 1.2.840.114 [id number] Univers 08:05:45 10:48:54 ne Visit Efraín Tiffany Foster 350.1.13.10 ity [place].2.[place] [phone] [facility] [address] [place] [address] 2019-07-03 2019-07-03 Outpatient EFRAÍN CARTER [facility] [id number] Univers 09:20:00 09:20:00 EFRAÍN CARTER [id number] itbianca [facility] 2019-07-03 2019-07-03 Outpatient R EFRAÍN CARTER [facility] [id number] Univers 09:20:00 09:20:00 EFRAÍN CARTER itbianca [facility] 2019-06-19 2019-06-19 Telephone Emma [facility] 1.2.840.114 [id number] Univers 00:00:00 00:00:00 Efraín Foster 350.1.13.10 it[place].2.[place] [phone] Ct dical nal 092 [facility] 2019-06-18 2019-06-18 [facility] 1.2.840.114 [id number] Univers 00:00:00 00:00:00 Efraín Foster 350.1.13.10 [place].2.[place] [phone] Ct dicaz nal 092 [facility] 2019-05-28 2019-05-28 [facility] Emma, [facility] 1.2.840.114 [id number] Univers 00:00:00 00:00:00 Efraín Foster 350.1.13.10 ity [place].2.[place] [phone] Ct dicaz nal [address] [place] [address] 2019-05-16 2019-05-16 [facility] 1.2.840.114 [id number] Univers 00:00:00 00:00:00 Efraín Foster 350.1.13.10 it[place]2.7.2.[place] [phone] Ct dical nal 092 [facility] 2019-05-13 2019-05-13 [facility] 1.2.840.114 [id number] Univers 00:00:00 00:00:00 Wondiful A Health 350.1.13.10 ity of [place] 4.2.7.2.686 Trino as Professio [phone] Ct dical nal 044 [facility] 2019-05-13 2019-05-13 [facility] 1.2.840.114 [id number] Univers 00:00:00 00:00:00 Efraín Foster 350.1.13.10 it[place]2.[place].2.[place] [phone] Ct dical nal 092 [facility] 2019-05-09 2019-05-09 Outpatient R [facility] [id number] Univers 14:15:00 14:15:00 [id number] ity [facility] 2019-05-09 2019-05-09 Outpatient R IGFTY [facility] [id number] Univers 14:15:00 14:15:00 TAMARA ity [facility] 2019-05-09 2019-05-09 Telephone [facility] 1.2.840.114 [id number] Univers 00:00:00 00:00:00 Wondiful A Health 350.1.13.10 ity of [place] 4.2.7.2.686 Trino as Professio [phone] Ct michele garza 044 [facility] 2019-05-09 2019-05-09 Telephone Gifty [facility] 1.2.840.114 [id number] Univers 00:00:00 00:00:00 Tamara D SPECIALTY 350.1.13.10 ity of [place].2.[place] AT [phone] Ct michele MERIDA [address] [place] [address] 2019-05-08 2019-05-08 Telephone [facility] 1.2.840.114 [id number] Univers 00:00:00 00:00:00 Wondiful A Health 350.1.13.10 ity of [place] 4.2.7.2.686 Trino as Professio [phone] Ct dictimothy nal 044 [facility] 2019-04-27 2019-04-27 Outpatient R [facility] [id number]-20 Univers 10:30:00 10:30:00 WONDIFUL [id number] ity o f [facility] 2019-04-20 2019-04-20 Office [facility] 1.2.840.114 [id number] Univers 09:23:30 19:21:09 Visit Wondiful A Health 350.1.13.10 ity of [place] 4.2.7.2.686 Trino as Professio [phone] Ct michele nal 044 [facility] 2019-04-20 2019-04-20 Outpatient R [facility] [id number] Univers 09:00:00 09:00:00 WONDIFUL ity o f [facility] 2019-04-19 2019-04-19 Telephone [facility] 1.2.840.114 [id number] Univers 00:00:00 00:00:00 Efraín Foster 350.1.13.10 it[place].2.[place] [phone] [address] 2019-04-15 2019-04-15 Refill [facility] 1.2.840.114 [id number] Univers 00:00:00 00:00:00 Efraín Foster 350.1.13.10 it[place].2.[place] [phone] [address] 2019-03-23 2019-03-23 [facility] 1.2.840.114 [id number] [facility] 09:58:29 11:26:48 Visit Efraín Foster 350.1.13.10 it[place] of [place]2.7.2.[place] [phone] [address] 2019-03-22 2019-03-22 Gay [facility] 1.2.840.114 [id number] Univers 00:00:00 00:00:00 Efraín Foster 350.1.13.10 ity of [place] 4[place]2.7.2.[place] [phone] [address] 2019-03-22 2019-03-22 Gay [facility] 1.2.840.114 [id number] Univers 00:00:00 00:00:00 Efraín Foster 350.1.13.10 it[place]2.7.2.[place] [phone] [address] 2019-03-16 2019-03-16 [facility] 1.2.840.114 [id number] Univers 00:00:00 00:00:00 Efraín Foster 350.1.13.10 it[place].2.[place] [phone] Ct dicaz nal 2 [facility] 2019-03-07 2019-03-07 Jonathan Carter [facility] 1.2.840.114 [id number] Univers 00:00:00 00:00:00 Efraín Foster 350.1.13.10 it[place].2.[place] [phone] [address] 2018-09-08 2018-09-08 Refill [facility] 1.2.840.114 [id number] Univers 00:00:00 00:00:00 Efraín Foster 350.1.13.10 [place].2.[place] [phone] [address] Results Test Description Test Time Test Comments Results Result Comments Source GLUBED 2021-05-28 00:11:00 Test Item Value Reference Range Interpretation Comme nts GLUBED (test code = GLUBED) 115 MG/DL 70-105 H [id number] 12:02:00 Test Item Value Reference Range Interpretation Comments GLUBED (test code = GLUBED) 148 MG/DL 70-105 H [id number] 00:29:00 Test Item Value Reference Range Interpretation Comments GLUBED (test code = GLUBED) 124 MG/DL 70-105 H [id number] 20:43:00 Test Item Value Reference Range Interpretation Comments GLUBED (test code = GLUBED) 142 MG/DL 70-105 H [id number] 13:20:00 Test Item Value Reference Range Interpretation Comments GLUBED (test code = GLUBED) 180 MG/DL 70-105 H [id number] 05:56:00 Test Item Value Reference Range Interpretation Comments GLUBED (test code = GLUBED) 123 MG/DL 70-105 H [id number] 00:28:00 Test Item Value Reference Range Interpretation Comments GLUBED (test code = GLUBED) 104 MG/DL 70-105 N BASIC METABOLIC [id number] 08:07:00 Test Item Value Reference Range Interpretation [...] New = CA) Reference Range Mar 2020 [id number] 08:07:00 Test Item Value Reference Range Interpretation Comments PHOSPHOROUS (test code 2.9 mg/dL 2.4-5.1 N Pleas e note: New = PHOS) Reference Range Mar 2020 [id number] 08:07:00 Test Item Value Reference Range Interpretation Comments MAGNESIUM (test code = 1.8 mg/dL 1.6-2.6 N Pleas e note: New MAG) Reference Range Mar 2020 B-TYPE NATRIURETIC [id number] 08:07:00 Test Item Value Reference Range Interpretation Comments B-TYPE NATRIURETIC PEPTIDE (test 793 pg/mL <100 H code = BNP) CBC W/AUTO [id number] 07:49:00 Test Item Value Reference Range Interpretation [...] = BA#) 0.03 x10 3/uL 0.0-0.20 N [id number] 07:40:00 Test Item Value Reference Range Interpretation Comments GLUBED (test code = GLUBED) 115 MG/DL 70-105 H [id number] 00:35:00 Test Item Value Reference Range Interpretation Comments GLUBED (test code = GLUBED) 126 MG/DL 70-105 H [id number] 17:23:00 Test Item Value Reference Range Interpretation Comments GLUBED (test code = GLUBED) 121 MG/DL 70-105 H [id number] 11:54:00 Test Item Value Reference Range Interpretation Comments GLUBED (test code = GLUBED) 125 MG/DL 70-105 H [id number] 07:41:00 Test Item Value Reference Range Interpretation Comments GLUBED (test code = GLUBED) 116 MG/DL 70-105 H COMPREHENSIVE METABOLIC [id number] 07:16:00 Test Item Value Reference Range Interpretation [...] ALKP) Reference Range Mar 2020 CBC W/AUTO [id number] 07:07:00 Test Item Value Reference Range Interpretation [...] = BA#) 0.01 x10 3/uL 0.0-0.20 N [id number] 06:53:00 Test Item Value Reference Range Interpretation Comments GLUBED (test code = GLUBED) 108 MG/DL 70-105 H [id number] 00:32:00 Test Item Value Reference Range Interpretation Comments GLUBED (test code = GLUBED) 88 MG/DL 70-105 N [id number] 17:26:00 Test Item Value Reference Range Interpretation Comments GLUBED (test code = GLUBED) 103 MG/DL 70-105 N [id number] 12:28:00 Test Item Value Reference Range Interpretation Comments GLUBED (test code = GLUBED) 105 MG/DL 70-105 N [id number] 10:12:00 Test Item Value Reference Range Interpretation Comments GLUBED (test code = GLUBED) 166 MG/DL 70-105 H [id number] 06:35:00 Test Item Value Reference Range Interpretation Comments GLUBED (test code = GLUBED) 117 MG/DL 70-105 H [id number] 02:42:00 Test Item Value Reference Range Interpretation Comments GLUBED (test code = GLUBED) 116 MG/DL 70-105 H [id number] 12:06:00 Test Item Value Reference Range Interpretation Comments GLUBED (test code = GLUBED) 151 MG/DL 70-105 H - XR CHEST 1 [id number] 08:30:00 [facility] 1950 Sex: FPatient Name: CYNDI MONTAÑO Unit No: [id number] EXAMS: CPT CODE: [id number] XR CHEST 1 V 42759 CHEST 1 VIEW: INDICATION: chf COMPARISON: There [...] Manley MD CC: Kt Holly MD; Alberto Rodriguez MD Technologist: Gavin Mccall Time: DAP (Gy m2): Air Kerma (mGy): Trscr Dt/Tm: 05/22/2021 (0830) by:[email or web address] Printed Date/Time: 05/22/2021 (0833) Name: CYNDI MONTAÑO [facility] Phys: Alberto Carrizales [address] : 1950 Age: 70 Sex: [place] [address] Loc: P.0635 1 Exam Date: 05/22/2021 Status: ADM IN PH: FAX: PAGE 1 Signed ReportBASIC METABOLIC [id number] 07:12:00 Test Item Value Reference Range Interpretation [...] CA) Reference Range Mar 2020 B-TYPE NATRIURETIC [id number] 07:12:00 Test Item Value Reference Range Interpretation Comments B-TYPE NATRIURETIC PEPTIDE (test 857 pg/mL <100 H code = BNP) [id number] 00:21:00 Test Item Value Reference Range Interpretation Comments GLUBED (test code = GLUBED) 155 MG/DL 70-105 H [id number] 17:53:00 Test Item Value Reference Range Interpretation Comments MAGNESIUM (test code = 1.5 mg/dL 1.6-2.6 L Pleas e note: New MAG) Reference Range Mar 2020 [id number] 17:23:00 Test Item Value Reference Range Interpretation Comments GLUBED (test code = GLUBED) 170 MG/DL 70-105 H [id number] 13:04:00 Test Item Value Reference Range Interpretation Comments GLUBED (test code = GLUBED) 153 MG/DL 70-105 H BASIC METABOLIC [id number] 11:13:00 Test Item Value Reference Range Interpretation [...] New = CA) Reference Range Mar 2020 [id number] 07:33:00 Test Item Value Reference Range Interpretation Comments GLUBED (test code = GLUBED) 140 MG/DL 70-105 H [id number] 00:56:00 Test Item Value Reference Range Interpretation Comments GLUBED (test code = GLUBED) 118 MG/DL 70-105 H [id number] 17:29:00 Test Item Value Reference Range Interpretation Comments GLUBED (test code = GLUBED) 118 MG/DL 70-105 H [id number] 12:33:00 Test Item Value Reference Range Interpretation Comments GLUBED (test code = GLUBED) 134 MG/DL 70-105 H BASIC METABOLIC [id number] 08:34:00 Test Item Value Reference Range Interpretation [...] CA) Reference Range Mar 2020 CBC W/AUTO [id number] 08:07:00 Test Item Value Reference Range Interpretation [...] = BA#) 0.00 x10 3/uL 0.0-0.20 N [id number] 05:32:00 Test Item Value Reference Range Interpretation Comments GLUBED (test code = GLUBED) 118 MG/DL 70-105 H [id number] 00:15:00 Test Item Value Reference Range Interpretation Comments GLUBED (test code = GLUBED) 99 MG/DL 70-105 N [id number] 12:09:00 Test Item Value Reference Range Interpretation Comments GLUBED (test code = GLUBED) 184 MG/DL 70-105 H [id number] 08:04:00 Test Item Value Reference Range Interpretation Comments GLUBED (test code = GLUBED) 193 MG/DL 70-105 H [id number] 08:04:00 Test Item Value Reference Range Interpretation Comments GLUBED (test code = GLUBED) 189 MG/DL 70-105 H BASIC METABOLIC [id number] 07:37:00 Test Item Value Reference Range Interpretation [...] CA) Reference Range Mar 2020 COMPREHENSIVE METABOLIC [id number] 07:37:00 Test Item Value Reference Range Interpretation [...] ALKP) Reference Range Mar 2020 CBC W/AUTO [id number] 07:30:00 Test Item Value Reference Range Interpretation [...] = BA#) 0.01 x10 3/uL 0.0-0.20 N [id number] 17:32:00 Test Item Value Reference Range Interpretation Comments GLUBED (test code = GLUBED) 192 MG/DL 70-105 H [id number] 13:01:00 Test Item Value Reference Range Interpretation Comments GLUBED (test code = GLUBED) 205 MG/DL 70-105 H [id number] 13:01:00 Test Item Value Reference Range Interpretation Comments GLUBED (test code = GLUBED) 213 MG/DL 70-105 H [id number] 13:01:00 Test Item Value Reference Range Interpretation Comments GLUBED (test code = GLUBED) 257 MG/DL 70-105 H - XR ABDOMEN [id number] 08:26:00 [facility] 1950 Sex: FPatient Name: CYNDI MONTAÑO Unit No: [id number] EXAMS: CPT CODE: [id number] XR ABDOMEN 1V 16015 ABDOMEN, SINGLE VIEW DICTATION LOCATION A1 HISTORY: [...] Dt/Tm: 05/18/2021 (825) by:Efren Printed Date/Time: 05/18/2021 (0829) Name: CYNDI MONTAÑO [facility] Phys: Hoang Johnson Jr, MD [address] : 1950 Age: 70 Sex: [place] [address] Loc: P.0635 1 Exam Date: 05/18/2021 Status: ADM IN PH: FAX: PAGE 1 Signed ReportCOMPREHENSIVE METABOLIC [id number] 06:58:00 Test Item Value Reference Range Interpretation [...] DL Cholesterol<1 00mg/dL : Desirable LDL -C euldecfombgtn37 0-159mg /dL: Borderline High Risk LDL-C nyeilulbuoeku91 0-189mg /dL: High risk LDL-C concentration H DL-LDL Cholesterol is affected by a n umber of factors such as smoking, age an d sex.~~~~~~~~~~~ ~~~~~~~ ~~~~~~~~~~~~~~~ ~~~~~~~ ~~~~~~~~~~~~~~~ ~~~~~ HGBA1C - GLYCOSYLATED [id number] 06:58:00 Test Item Value Reference Range Interpretation Comments GLYCOSYLATED HEMOGLOBIN 6.9 % <5.7 H Diab etic >/= (HA1C) (test code = 6.5%Pred iabetes GLYHGB) 5.7-6.4%Normal < 5.7% CBC W/AUTO [id number] 06:40:00 Test Item Value Reference Range Interpretation [...] = BA#) 0.00 x10 3/uL 0.0-0.20 N [id number] 04:52:00 Test Item Value Reference Range Interpretation Comments GLUBED (test code = GLUBED) 200 MG/DL 70-105 H [id number] 04:52:00 Test Item Value Reference Range Interpretation Comments GLUBED (test code = GLUBED) 260 MG/DL 70-105 H [id number] 17:59:00 Test Item Value Reference Range Interpretation Comments GLUBED (test code = GLUBED) 221 MG/DL 70-105 H [id number] 17:59:00 Test Item Value Reference Range Interpretation Comments GLUBED (test code = GLUBED) 207 MG/DL 70-105 H - CT ABD PELVIS [id number] 12:45:00 [facility] : 1950 Sex: FPatient Name: CYNDI MONTAÑO Unit No: [id number] EXAMS: CPT CODE: [id number] CT ABD PELVIS W/CONT 91991 EXAM: - CT ABD PELVIS W/CONT Location: [...] Vessels: No visualized abnormality. Name: CYNDI MONTAÑO [facility] Phys: Ho Chavez [address] : 1950 Age: 70 Sex: F [place], [place] [address]Zgby No: [id number] Loc: P.0635 1 Exam Date: 05/17/2021 Status: ADM IN PH: FAX: PAGE 1 Signed Report (CONTINUED) Patient Name: CYNDI MONTAÑO Unit No: [id number] EXAMS: CPT CODE: [id number] CT ABD PELVIS W/CONT 38456 <Continued> Lymph nodes: No lymphadenopathy Peritoneum/retroperitoneum: No [...] CTDI: 14.37 DLP: 892 Trscr Dt/Tm: 05/17/2021 (0063) by:[email or web address] Printed Date/Time: 05/17/2021 (9476)Name: CYNDI MONTAÑO [facility] Phys: Ho Chavez [address] : 1950 Age: 70 Sex: [place] [address] Loc: P.0635 1 Exam Date: 05/17/2021 Status: ADM IN PH: FAX: PAGE 2 Signed Report- US ABDOMEN [id number] 11:02:00 [facility] : 1950 Sex: FPatient Name: CYNDI MONTAÑO Unit No: [id number] EXAMS: CPT CODE: [id number] US ABDOMEN COMPLETE 01193 EXAM: ABDOMINAL ULTRASOUND COMPLETE INDICATION: abdominal pain [...] acute abdominal abnormality is clearly seen. [facility] Kt Wilson MD [address] DOB: 1950 Age: 70 Sex: [place] [address] Loc: P.0635 1 Exam Date: 05/17/2021 Status: ADM IN PH: FAX: PAGE 1 Signed Report (CONTINUED) Patient Name: CYNDI MONTAÑO Unit No: [id number] EXAMS: CPT CODE: [id number] US ABDOMEN COMPLETE 24082 <Continued> at 1102 Reported and signed by: SHELIA CROWELL M.D. CC: Kt Holly MD Technologist: TERI CONNOR RDMS () Tyrel gonzalez: Austen Dt/Tm: 05/17/2021 (1102) by:[email or web address] PrintedDate/Time: 05/17/2021 (1106) [facility]: Kt Wilson MD [address]: 1950 Age: 70 Sex: [place] [address] Loc: P.0635 1 Exam Date: 05/17/2021 Status: ADM IN PH: FAX: PAGE 2 Signed Report- XR ABDOMEN [id number] 10:33:00 [facility] : 1950 Sex: FPatient Name: CYNDI MONTAÑO Unit No: [id number] EXAMS: CPT CODE: [id number] XR ABDOMEN 1V 35679 EXAM: XR ABDOMEN 1 VIEW INDICATION: NG [...] Printed Date/Time: 05/17/2021 (1036) Name: CYNDI MONTAÑO [facility] Phys: Lorenzo Moses DO [address] : 1950 Age: 70 Sex: F [place] [address] [id number] Loc: P.0635 1 Exam Date: 05/17/2021 Status: ADM IN PH: FAX: PAGE 1 Signed ReportCOMPREHENSIVE METABOLIC [id number] 08:49:00 Test Item Value Reference Range Interpretation [...] Reference Range Feb code = ALKP) 2020 [id number] 08:49:00 Test Item Value Reference Range Interpretation Comments MAGNESIUM (test code = 1.6 mg/dL 1.6-2.6 N Pleas e note: New MAG) Reference Range Mar 2020 THYROID STIMULATING [id number] 08:49:00 Test Item Value Reference Range Interpretation Comments THYROID STIMULATING 1.25 mIU/mL 0.55-4.78 N Please n ote: New HORMONE (test code = Referen ce Range Mar TSH) 2020 PROTHROMBIN [id number] 08:35:00 Test Item Value Reference Range Interpretation [...] 2.5-3.5recurren t systemic emboli sm. THROMBOPLASTIN TIME [id number] 08:35:00 Test Item Value Reference Range Interpretation Comments THROMBOPLASTIN TIME 30.6 SECONDS 23.8-34.8 N INTERPRE TATIVE PARTIAL (test code = DATA: erapeutic PTT) range: Unfractionated heparin:55 - 80 seconds Argatroban:1.5 to 3 times the basel ine PTT CBC W/AUTO [id number] 08:27:00 Test Item Value Reference Range Interpretation [...]
== END 2021-08-17 16:30 | disposition home or self-care (01) | DRG 291 ==
LOC: ER 08:16 → ERHOLD 12:46 → 2ND 13:41
PROVIDERS: ADMIT Internal Medicine Sleep Medicine; ATTEND Internal Medicine Sleep Medicine
DX: I11.0 Hypertensive heart disease with heart failure (principal); I50.23 Acute on chronic systolic (congestive) heart failure; K57.92 Diverticulitis of intestine, part unspecified, without perforation or abscess without bleeding; R09.02 Hypoxemia; G43.909 Migraine, unspecified, not intractable, without status migrainosus; E11.9 Type 2 diabetes mellitus without complications; E88.81 Metabolic syndrome and other insulin resistance; K21.9 Gastro-esophageal reflux disease without esophagitis; F32.A Depression, unspecified; F41.9 Anxiety disorder, unspecified; Z20.822 Contact with and (suspected) exposure to COVID-19; Z86.73 Personal history of transient ischemic attack (TIA), and cerebral infarction without residual deficits; Z79.899 Other long term (current) drug therapy; Z88.6 Allergy status to analgesic agent; Z90.49 Acquired absence of other specified parts of digestive tract; Z90.710 Acquired absence of both cervix and uterus; Z82.49 Family history of ischemic heart disease and other diseases of the circulatory system
CPT/HCPCS: 36415; 51702; 70450; 71045; 80048; 80053; 80076; 81003; 82947; 83735; 83880; 84100; 84484; 85025; 85610; 87804; 93005; 94640; 96374; 96375; 97116; 97161; 99284; J1200; J1650; J1940; J2405; J2765; U0003

== ENCOUNTER 2021-08-24 13:10 | Emergency (ER) | payer OTHER ==
[2021-08-24] MEDS ORDERED: MORPHINE 4 MG/ML SYR ONE (13:46)
--- NOTE | 2021-08-24 14:18 | RAD REPORT ---
EXAM DESCRIPTION: CT - CTHCSPWOC - 08/24/2021 2:07 pm CLINICAL HISTORY: fall, head injury COMPARISON: CT HEAD CSPINE MPR WO CONTRAST dated 01/16/2012 TECHNIQUE: Axial 5 mm thick images of the head were obtained. Axial 2 mm thick images of the cervic al spine were obtained with sagittal and coronal reconstruction images generated and reviewed. All CT scans are performed using dose optimization technique as appropriate and may include automated exposure control or mA/KV adjustment according to patient size. FINDINGS: No intracranial hemorrhage, mass, edema or acute intracranial finding. No acute cortical l evel infarction identified. Patient has mild to moderate chronic ischemic change in the cerebral whit e matter progressive from 2012. Atrophy is mild but is progressive from prior imaging. Ventricles are borderline to greater than expected for volume loss. No extra-axial fluid collections. Mastoid air c ells and paranasal sinuses are clear. No globe or orbit abnormality seen. No measurable scalp hematom a. No fracture of the cranial vault identified. Cervical body height and alignment are normal. C5-6 disc space narrowing is present with endplate spu rring extending into the central canal and minimally into the exit foramina. This degenerative change is slightly progressive but not new from 2012. No fracture or acute bony abnormality. Central canal detail is inherently limited. No paraspinal mass or hematoma. IMPRESSION: Negative CT head examination for acute finding. Atrophy and chronic ischemic changes have progressed from the 2012 comparison. Ventricles are borderl ine to slightly out of proportion for the amount of volume loss. Correlation is needed with any histo ry or exam findings supporting normal pressure hydrocephalus. Cervical spine degenerative changes as detailed. No acute findings.
--- NOTE | 2021-08-24 14:47 | RAD REPORT ---
EXAM DESCRIPTION: RAD - Hip Right 2 View - 08/24/2021 2:37 pm CLINICAL HISTORY: hip pain COMPARISON: Hip Right 2 View dated 04/04/2018 FINDINGS: AP and frog-leg views of the right hip were obtained. There is no fracture or dislocation. No AVN or focal head abnormality. No acute or destructive bony p rocess seen. Minimal degenerative changes are present along the superior acetabular rim. No significa nt soft tissue finding. IMPRESSION: Negative right hip examination for acute or significant findings.
--- NOTE | 2021-08-24 14:49 | RAD REPORT ---
EXAM DESCRIPTION: RAD - Lumbar Spine 3 Views - 08/24/2021 2:38 pm CLINICAL HISTORY: back pain COMPARISON: No comparisons FINDINGS: A three-view lumbar spine examination was performed. Lumbar bodies are normal in height and alignment. No fracture or acute bony process seen. Slight disc space narrowing at L4-5. Prominent facet joint degenerative changes are present L3-S1. These are mos t pronounced at L5-S1. No pars defects identified. IMPRESSION: No fracture or acute lumbar spine finding identifiable. Prominent facet degenerative change present L3-S1 with slight loss in disc height at L4-5.
--- NOTE | 2021-08-24 15:06 | RAD REPORT ---
EXAM DESCRIPTION: RAD - Pelvis - 08/24/2021 2:58 pm CLINICAL HISTORY: right hip pain COMPARISON: Pelvis dated 04/04/2018 TECHNIQUE: AP imaging of the pelvis was obtained. FINDINGS: No fracture or acute bony pelvic finding. No focal abnormality of either femoral head. Mil d degenerative changes are present along the superior aspect of each acetabulum. This is not substant ially different from the 2019 study. SI joint degenerative changes are minimal. Numerous clips are present from prior hernia repair. No suspicious soft tissue finding. IMPRESSION: Mild bilateral hip joint degenerative change. No acute findings seen.
--- NOTE | 2021-08-24 17:00 | EDPHYS ---
Physician Documentation [facility] Name: Blanka Ferrell Age: 70 yrs Sex: Female : 1950 Arrival Date: 08/24/2021 Time: 13:16 Bed 27 Private MD: ED Physician Bobby oSliman HPI: 08/24 13:34 This 70 yrs old Black Female presents to ER via EMS with complaints of Leg Pain. jmm 13:34 The patient presents with an injury, pain. Onset: The symptoms/episode began/occurred jmm acutely, just prior to arrival. Modifying factors: The symptoms are alleviated by nothing. the symptoms are aggravated by nothing. This is a 70 year old female with a history of chf, htn that presents to the ED with complaints of headache, and right hip pain after multiple falls which occurred yesterday. patient states she fell off a recliner, landing on her right side and hitting her head. Denies LOC, neck pain. . Historical: - Allergies: 13:35 Imitrex; ap3 - PMHx: 13:35 Congestive heart failure; Thyroid problem; Hypertension; Migraines; Anxiety; Diabetes - ap3 IDDM; TIA; - PSHx: 13:35 section; Cholecystectomy; hysterectomy; ap3 - Immunization history:: Client reports receiving the 2nd dose of the Covid vaccine. - Social history:: Smoking status: Patient denies any tobacco usage or history of. ROS: 13:34 Constitutional: Negative for fever, chills, and weight loss, Cardiovascular: Negative jmm for chest pain, palpitations, and edema, Respiratory: Negative for shortness of breath, cough, wheezing, and pleuritic chest pain. 13:34 Back: Positive for pain with movement. 13:34 MS/extremity: Positive for pain. 13:34 All other systems are negative. Exam: 13:34 Constitutional: This is a well developed, well nourished patient who is awake, alert, jmm and in no acute distress. Head/Face: atraumatic. Eyes: EOMI, no conjunctival erythema appreciated ENT: Moist Mucus Membranes Neck: Trachea midline, Supple Chest/axilla: Normal chest wall appearance and motion. Cardiovascular: Regular rate and rhythm. No edema appreciated Respiratory: Normal respirations, no respiratory distress appreciated Abdomen/GI: Non distended 13:34 Back: pain, that is moderate, of the lumbar area, right sided hip pain on palpation. 13:34 Skin: Appearance: Color: normal in color. 13:34 Neuro: Orientation: is normal, Mentation: is normal, Memory: is normal. 13:34 Psych: Behavior/mood is pleasant, cooperative. Vital Signs: 13:31 BP 162 / 78; Pulse 92; Resp 17; Temp 98.2; Pulse Ox 98% ; Weight 103.42 kg; Height 5 ap3 ft. 5 in. (165.10 cm); Pain 8/10; 17:24 BP 162 / 83; Pulse 92; Resp 16; Pulse Ox 98% on R/A; jb4 13:31 Body Mass Index 37.94 (103.42 kg, 165.10 cm) ap3 MDM: 13:38 Patient medically screened. [facility] 16:58 Data reviewed: vital signs, nurses notes. Counseling: I had a detailed discussion with [facility] the patient and/or guardian regarding: the historical points, exam findings, and any diagnostic results supporting the discharge/admit diagnosis, the need for outpatient follow up, to return to the emergency department if symptoms worsen or persist or if there are any questions or concerns that arise at home. ED course: Xrays negative. Patient advised to follow up with pcp and otherwise given strict return precautions. patient understood and agrees with the plan of care. . 08/24 13:34 Order name: CT Head C Spine; Complete Time: 14:23 [facility] 08/24 13:34 Order name: Pelvis XRAY; Complete Time: 15:21 [facility] 08/24 13:34 Order name: Hip Right 2 View XRAY; Complete Time: 14:53 [facility] 08/24 13:34 Order name: Lumbar Spine (3 Views) XRAY; Complete Time: 14:53 [facility] Administered Medications: 13:42 Drug: morphine 4 mg Route: IM; Site: right deltoid; ap3 Disposition: 08/25 07:31 Co-signature as Attending Physician, Bobby Soliman MD. rn Disposition Summary: 08/24/21 16:59 Discharge Ordered Location: Home [facility] Condition: Stable [facility] Diagnosis - Strain of muscle, fascia and tendon of right hip jmm - Unspecified injury of head, initial encounter [facility] Followup: [facility] - With: Private Physician - When: 2 - 3 days - Reason: Recheck today's complaints, Continuance of care, Re-evaluation by your physician Discharge Instructions: - Discharge Summary Sheet jmm - Head Injury, Adult jmm - Hip Pain [facility] Forms: - Medication Reconciliation Form diana - Thank You Letter fabian - Antibiotic Education diana - Prescription Opioid Use [facility] Prescriptions: - orphenadrine citrate 100 mg Oral Tablet Sustained Release - take 1 tablet by ORAL route 2 times per day As needed; 20 tablet; Refills: 0, jmm Product Selection Permitted Signatures: Dispatcher [employer] EDGalo Mijares PA PA jmm Nieto, Roman, MD MD rn Gwendolyn Day RN RN ap3
--- NOTE | 2021-08-24 17:00 | ER ---
Nurse's Notes [facility] Name: Blanka Ferrell Age: 70 yrs Sex: Female : 1950 Arrival Date: 08/24/2021 Time: 13:16 Bed 27 Private MD: Diagnosis: Strain of muscle, fascia and tendon of right hip;Unspecified injury of head, initial encounter Presentation: 08/24 13:31 Chief complaint: Patient states: she has fallen three times so far this week. Patient ap3 reports states one of the falls yesterday, she tripped on something and hit her head on the shelf, then on the wall. Another falls, she attempted to put her recliner up and she slipped and fell then hit her head on the food tray. Patient complains of right hip pain and head pain. Coronavirus screen: At this time, the client does not indicate any symptoms associated with coronavirus-19. Ebola Screen: No symptoms or risks identified at this time. Initial Sepsis Screen: Does the patient meet any 2 criteria? No. Patient's initial sepsis screen is negative. Does the patient have a suspected source of infection? No. Patient's initial sepsis screen is negative. Risk Assessment: Do you want to hurt yourself or someone else? Patient reports no desire to harm self or others. Onset of symptoms was August 23, 2021. 13:31 Method Of Arrival: EMS: [facility] ap3 13:31 Acuity: THALIA 3 ap3 Triage Assessment: 13:35 General: Appears in no apparent distress. Behavior is calm, cooperative. Pain: ap3 Complains of pain in head and right hip. Neuro: Level of Consciousness is awake, alert, obeys commands, Oriented to person, place, time, situation, Speech is normal. Cardiovascular: Patient's skin is warm and dry. Respiratory: Airway is patent Respiratory effort is even, unlabored. Historical: - Allergies: 13:35 Imitrex; ap3 - PMHx: 13:35 Congestive heart failure; Thyroid problem; Hypertension; Migraines; Anxiety; Diabetes - ap3 IDDM; TIA; - PSHx: 13:35 section; Cholecystectomy; hysterectomy; ap3 - Immunization history:: Client reports receiving the 2nd dose of the Covid vaccine. - Social history:: Smoking status: Patient denies any tobacco usage or history of. Screenin:36 Abuse screen: Denies threats or abuse. Nutritional screening: No deficits noted. ap3 Tuberculosis screening: No symptoms or risk factors identified. 17:21 Fall Risk None identified. jb4 Assessment: 16:30 Reassessment: Patient appears in no apparent distress at this time. Patient and/or jb4 family updated on plan of care and expected duration. Pain level reassessed. Patient is alert, oriented x 3, equal unlabored respirations, skin warm/dry/pink. Patient states feeling better. 17:21 Reassessment: Patient appears in no apparent distress at this time. Patient and/or jb4 family updated on plan of care and expected duration. Pain level reassessed. Patient is alert, oriented x 3, equal unlabored respirations, skin warm/dry/pink. Vital Signs: 13:31 BP 162 / 78; Pulse 92; Resp 17; Temp 98.2; Pulse Ox 98% ; Weight 103.42 kg; Height 5 ap3 ft. 5 in. (165.10 cm); Pain 8/10; 17:24 BP 162 / 83; Pulse 92; Resp 16; Pulse Ox 98% on R/A; jb4 13:31 Body Mass Index 37.94 (103.42 kg, 165.10 cm) ap3 ED Course: 13:16 Patient arrived in ED. rg4 13:35 Galo Quiñones PA is PHCP. jmm 13:35 Bobby Soliman MD is Attending Physician. jmm 13:35 Triage completed. ap3 13:36 Arm band placed on right wrist. ap3 14:09 CT Head C Spine In Process Unspecified. EDMS 14:39 Hip Right 2 View XRAY In Process Unspecified. EDMS 14:39 Lumbar Spine (3 Views) XRAY In Process Unspecified. EDMS 15:00 Pelvis XRAY In Process Unspecified. EDMS 17:21 Patient has correct armband on for positive identification. Placed in gown. Bed in low jb4 position. Call light in reach. 17:21 No provider procedures requiring assistance completed. Patient did not have IV access jb4 during this emergency room visit. Administered Medications: 13:42 Drug: morphine 4 mg Route: IM; Site: right deltoid; ap3 Medication: 17:21 VIS not applicable for this client. jb4 Outcome: 16:59 Discharge ordered by . fabian 17:21 Discharged to home via wheelchair, with family. jbGanesh 17:21 Condition: stable 17:21 Discharge instructions given to patient, Instructed on discharge instructions, follow up and referral plans. no drinking with medication, no driving heavy equipment, medication usage, Demonstrated understanding of instructions, follow-up care, medications, Prescriptions given X 1. 17:24 Patient left the ED. jb4 Signatures: Dispatcher [employer] EDMS Galo Quiñones PA PA jmm Garcia, Rubi rg4 Alberto Geronimo, RN RN jb4 Gwendolyn Day RN RN ap3
[2021-08-24 17:35] VITALS: TEMP 98.2; O2SAT 98
[2021-08-24 17:36] VITALS: BP 162/83
== END 2021-08-24 17:24 | disposition home or self-care (01) ==
LOC: ER 13:10
DX: S76.011A Strain of muscle, fascia and tendon of right hip, initial encounter (principal); S09.90XA Unspecified injury of head, initial encounter; I10 Essential (primary) hypertension; E11.9 Type 2 diabetes mellitus without complications; I50.9 Heart failure, unspecified; Z88.8 Allergy status to other drugs, medicaments and biological substances
CPT/HCPCS: 70450; 72100; 72125; 72170; 96372; 99284

== ENCOUNTER 2021-09-10 11:47 | Observation (INO) | payer OTHER ==
[2021-09-10 12:49] LABS: Absolute Lymphocytes (CBC) 0.7 K/uL (0.7-4.9); Hematocrit 35.9 % (36.0-45.0); Lymphocytes % 12.2 % (15.3-44.8); MCV 81.9 fL (80-100); MPV 8.3 fL (7.6-11.3); RBC Red Blood Cell Count 4.38 M/uL (3.86-4.86)
[2021-09-10 12:56] LABS: Protime INR 1.18
--- NOTE | 2021-09-10 13:14 | RAD REPORT ---
EXAM DESCRIPTION: RAD - Chest Single View - 09/10/2021 1:02 pm CLINICAL HISTORY: COUGH COMPARISON: Portable 08/15/2021 TECHNIQUE: AP portable chest image was obtained 09/10/2021 1:02 pm . FINDINGS: Lung volumes are low. Interstitial markings are diffusely prominent but not as pronounced as seen on the August 15 study. Central vasculature is prominent. Cardiomegaly again noted. No pneumot horax or large pleural effusion. No acute bony abnormality seen. No acute aortic findings suspected. IMPRESSION: Mild to moderate CHF/ volume overload pattern less severe than seen on the August 15 imag ing.
[2021-09-10 13:22] LABS: Albumin 2.9 g/dL (3.4-5.0); Bilirubin Direct 0.2 mg/dL (0-0.2); Bilirubin Total 0.3 mg/dL (0.2-1.0); Magnesium 1.8 mg/dL (1.8-2.4); Potassium 3.9 mmol/L (3.5-5.1); Protein, Total 7.6 g/dL (6.4-8.2); Troponin High Sensitivity 29.3 pg/mL (<58.9)
--- NOTE | 2021-09-10 13:34 | EDPHYS ---
Physician Documentation [facility] Name: Blanka Ferrell Age: 70 yrs Sex: Female : 1950 Arrival Date: 09/10/2021 Time: 11:55 Bed 24 Private MD: ED Physician Philipp Harley HPI: 09/10 13:26 This 70 yrs old Black Female presents to ER via EMS with complaints of chest pain/ sob. yahir 13:26 The patient has shortness of breath with light activity, that woke him/her from sleep. yahir Onset: The symptoms/episode began/occurred 2 day(s) ago. Duration: The symptoms are continuous, and are steadily getting worse. The patient's shortness of breath is aggravated by exertion, light activity, supine position, walking. The patient or guardian reports chest pain that is located primarily in the substernal area. Onset: 2 day(s) ago. The patient has elevated blood pressure and discovered this at home. Modifying factors: The symptoms are aggravated by activity, movement. Severity of symptoms: At their worst the symptoms were mild moderate in the emergency department the symptoms are unchanged. Historical: - Allergies: 12:00 Imitrex; jenkins - Home Meds: 12:00 alprazolam 0.5 mg Oral tab 1 tab twice a day [Active]; amoxicillin-pot clavulanate jenkins 875-125 mg Oral tab 1 tab every 12 hours [Active]; chlorthalidone 25 mg Oral tab 1 tab once daily [Active]; doxazosin 2 mg Oral tab 1 tab twice a day [Active]; doxepin 100 mg Oral cap 1 cap once daily [Active]; duloxetine 60 mg Oral CDRS 1 cap once daily [Active]; escitalopram oxalate 20 mg Oral tab 1 tab once daily [Active]; furosemide 40 mg Oral tab 1 tab once daily [Active]; gabapentin 300 mg Oral cap 3 times per day [Active]; metoprolol tartrate 100 mg Oral tab 2 tabs 3 times per day [Active]; spironolactone 50 mg Oral tab 1 tab 2 times per day [Active]; trazodone 50 mg Oral tab 1 tab once daily [Active]; - PMHx: 12:00 Anxiety; Congestive heart failure; Diabetes - IDDM; Hypertension; Migraines; Thyroid jenkins problem; TIA; - PSHx: 12:00 section; Cholecystectomy; hysterectomy; jenkins - Immunization history:: Adult Immunizations up to date. - Social history:: Smoking status: Patient denies any tobacco usage or history of. - Family history:: not pertinent. ROS: 13:26 Constitutional: Negative for fever, chills, and weight loss, Eyes: Negative for injury, yahir pain, redness, and discharge, ENT: Negative for injury, pain, and discharge, Neck: Negative for injury, pain, and swelling, Cardiovascular: Negative for chest pain, palpitations, and edema, Abdomen/GI: Negative for abdominal pain, nausea, vomiting, diarrhea, and constipation, Back: Negative for injury and pain, : Negative for injury, bleeding, discharge, and swelling, MS/Extremity: Negative for injury and deformity, Skin: Negative for injury, rash, and discoloration, Neuro: Negative for headache, weakness, numbness, tingling, and seizure. 13:26 Respiratory: Positive for cough, shortness of breath, on exertion. 13:26 Respiratory: Positive for 13:26 MS/extremity: Positive for swelling, of the right leg and left leg. Exam: 13:26 Constitutional: This is a well developed, well nourished patient who is awake, alert, yahir and in no acute distress. Head/Face: Normocephalic, atraumatic. Eyes: Pupils equal round and reactive to light, extra-ocular motions intact. Lids and lashes normal. Conjunctiva and sclera are non-icteric and not injected. Cornea within normal limits. Periorbital areas with no swelling, redness, or edema. ENT: Nares patent. No nasal discharge, no septal abnormalities noted. Tympanic membranes are normal and external auditory canals are clear. Oropharynx with no redness, swelling, or masses, exudates, or evidence of obstruction, uvula midline. Mucous membranes moist. Neck: Trachea midline, no thyromegaly or masses palpated, and no cervical lymphadenopathy. Supple, full range of motion without nuchal rigidity, or vertebral point tenderness. No Meningismus. Chest/axilla: Normal chest wall appearance and motion. Nontender with no deformity. No lesions are appreciated. Cardiovascular: Regular rate and rhythm with a normal S1 and S2. No gallops, murmurs, or rubs. Normal PMI, no JVD. No pulse deficits. Abdomen/GI: Soft, non-tender, with normal bowel sounds. No distension or tympany. No guarding or rebound. No evidence of tenderness throughout. Back: No spinal tenderness. No costovertebral tenderness. Full range of motion. Female : Normal external genitalia. Skin: Warm, dry with normal turgor. Normal color with no rashes, no lesions, and no evidence of cellulitis. Neuro: Awake and alert, GCS 15, oriented to person, place, time, and situation. Cranial nerves II-XII grossly intact. Motor strength 5/5 in all extremities. Sensory grossly intact. Cerebellar exam normal. Normal gait. Psych: Awake, alert, with orientation to person, place and time. Behavior, mood, and affect are within normal limits. 13:26 Respiratory: the patient does not display signs of respiratory distress, Respirations: normal, Breath sounds: rales, that are mild, are located in both bases, decreased breath sounds, that are mild, that are moderate, rhonchi, that are mild, are scattered, stridor, is not appreciated, Respiratory rate: 22 13:35 ECG was reviewed by the Attending Physician. [facility] Vital Signs: 11:55 BP 181 / 88; Pulse 83; Resp 19; Temp 98.5; Pulse Ox 95% on R/A; Weight 99.79 kg; Height jenkins 5 ft. 5 in. (165.10 cm); 13:02 BP 185 / 98; Pulse 75; Resp 18; Pulse Ox 93% on R/A; jenkins 14:28 BP 181 / 102; Pulse 72; Resp 17; Pulse Ox 93% on R/A; jenkins 14:49 BP 189 / 91; Pulse 73; Resp 18; Pulse Ox 93% on R/A; jenkins 19:44 BP 171 / 87; Pulse 70; Resp 17 S; Pulse Ox 98% on 2 lpm NC; lg3 11:55 Body Mass Index 36.61 (99.79 kg, 165.10 cm) jenkins MDM: 12:02 Patient medically screened. [facility] 13:28 Differential diagnosis: Anemia Bronchitis CHF exacerbation, abnormal EKG, acute yahir myocardial infarction, anxiety, coronary artery disease Cholelithiasis hypertensive crisis, esophagitis, hiatal hernia, pancreatitis, peptic ulcer disease, pneumonia, pulmonary embolus, stable angina, Myocardial Infarction pneumonia, pulmonary edema, reactive airway disease, Unstable Angina. Antibiotic administration: Not indicated. HEART Score: ECG: Non specific repolarization disturbance / LBTB / PM (1), Age: > or = 65 years (2), Risk Factors: > or = 3 Risk factors for atherosclerotic disease (2), [Hypercholesterolemia] [Hypertension] [DM] [+ Family HX] [Obesity] Troponin: < or = 1 x Normal Limit (0). The patient was not given aspirin in the Emergency Department. Administered by EMS. The patient's Wells Deep Vein Thrombosis Score was calculated as follows: Total Score: 0. This patient was found to be at low risk for a deep vein thrombosis by using the Well's assessment criteria Total Score: 0-2 Pts- Low Risk. The patient's pulmonary embolism risk score was calculated as follows: Total Score: 0-2 points. This patient was found to be at low risk for a pulmonary embolism by using the Well's assessment criteria Total Score: 0-2 points. This patient was found to be at low risk for a pulmonary embolism by using the Well's assessment criteria. GRECIA Risk Score: 1 - patient's age is greater or equal to 65 years, 1 - Three or more CAD risk factors, 1- Known CAD, 1 - ASA use in past 7 days, 1 - Recent [<24hrs] Severe Angina, TOTAL SCORE = 5. Immunization status: Pneumococcal vaccine: Influenza vaccine: Data reviewed: vital signs, nurses notes, EMS record, lab test result(s), EKG, radiologic studies, plain films. Data interpreted: monitor and storage bin tender: rate is 75 beats/min, rhythm is regular, Pulse oximetry: on room air is 93 %. Test interpretation: by ED physician or midlevel provider: ECG, plain radiologic studies. 09/10 12:03 Order name: Basic Metabolic Panel; Complete Time: 13:09/10 12:03 Order name: CBC with Diff; Complete Time: 13:09/10 12:03 Order name: LFT's; Complete Time: 13:09/10 12:03 Order name: Magnesium; Complete Time: :09/10 12:03 Order name: NT PRO-BNP; Complete Time: 13:23 09/10 12:03 Order name: PT-INR; Complete Time: 13:16 09/10 12:03 Order name: Troponin HS; Complete Time: 13:09/10 12:03 Order name: XRAY Chest (1 view); Complete Time: 13:16 [facility] 09/10 13:26 Order name: SARS RAPID [facility] 09/10 15:46 Order name: Comprehensive Metabolic Panel [facility] 09/10 12:03 Order name: EKG; Complete Time: 12:06 [facility] 09/10 12:03 Order name: Cardiac monitoring; Complete Time: 12:04 [facility] 09/10 12:03 Order name: EKG - Nurse/Tech; Complete Time: 12:04 [facility] 09/10 12:03 Order name: IV Saline Lock; Complete Time: 12:23 [facility] 09/10 12:03 Order name: Labs collected and sent; Complete Time: 12: [facility] 09/10 12:03 Order name: O2 Per Protocol; Complete Time: 12: [facility] 09/10 12:03 Order name: O2 Sat Monitoring; Complete Time: 12: [facility] 09/10 15:46 Order name: Heart Healthy EDMA EC:35 Rate is 80 beats/min. Rhythm is regular. QRS [place] is Normal. CO interval is normal. QRS yahir interval is normal. QT interval is normal. No Q waves. T waves are Normal. No ST changes noted. Clinical impression: Abnormal EKG without significant change and No evidence of ischemia. Interpreted by me. Reviewed by me. Administered Medications: 13:02 Not Given (pt has 324 asa PTAa): Aspirin Chewable Tablet 162 mg PO once jenkins 13:22 Not Given (Physician Discretion): NS 0.9% 500 ml IV at bolus once jenkins 13:29 Not Given (Physician Discretion): Aspirin 162 mg PO once jenkins 13:49 Drug: Nitro-Bid (nitroglycerin) Ointment 2 % 1 inches Route: Transdermal; Site: anterior chest wall; 13:49 Drug: Tylenol 650 mg Route: PO; jenkins 13:50 Follow up: Response: No adverse reaction jenkins 13:49 Drug: Lasix (furosemide) 60 mg Route: IVP; Site: Other; jenkins 13:50 Follow up: Response: No adverse reaction jenkins 13:49 Drug: morphine 2 mg Route: IVP; Infused Over: 4 mins; Site: Other; jenkins 13:50 Follow up: Response: No adverse reaction jenkins 13:49 Drug: morphine 2 mg Route: IVP; Infused Over: 4 mins; Site: Other; jenkins 13:50 Follow up: Response: No adverse reaction jnekins 13:49 Drug: Zofran (Ondansetron) 4 mg Route: IVP; Site: Other; jenkins 13:50 Follow up: Response: No adverse reaction jenkins 13:49 Drug: Lovenox (enoxaparin) 1 mg/kg Route: Sub-Q; Site: right lower abdomen; jenkins 13:50 Follow up: Response: No adverse reaction jenkins 13:49 Drug: Pepcid (famotidine) 20 mg Route: IVP; Site: Other; jenkins 13:50 Follow up: Response: No adverse reaction jenkins Disposition Summary: 09/10/21 13:33 Hospitalization Ordered Hospitalization Status: Inpatient Admission yahir Provider: Rm Deras cha Location: Telemetry/MedSurg (Inpatient) yahir Condition: Fair yahir Problem: new yahir Symptoms: have improved yahir Bed/Room Type: Standard yahir Room Assignment: 213(09/10/21 18:38) em1 Diagnosis - Systolic (congestive) heart failure yahir - Chest pain, unspecified yahir - Essential (primary) hypertension yahir - Obesity, unspecified yahir - Type 1 diabetes mellitus with hyperglycemia yahir Forms: - Medication Reconciliation Form yahir - SBAR form yahir Signatures: Dispatcher [employer] EDPhilipp Han MD MD cha Martinez, Eric em1 Brooke Maurice RN RN jenkins Corrections: (The following items were deleted from the chart) 18:38 13:33 yahir em1
--- NOTE | 2021-09-10 13:34 | ER ---
Nurse's Notes [facility] Name: Blanka Ferrell Age: 70 yrs Sex: Female : 1950 Arrival Date: 09/10/2021 Time: 11:55 Bed 24 Private MD: Diagnosis: Systolic (congestive) heart failure;Chest pain, unspecified;Essential (primary) hypertension;Obesity, unspecified;Type 1 diabetes mellitus with hyperglycemia Presentation: 09/10 11:55 Chief complaint: Patient states: chest pain and high blood pressure. Coronavirus jenkins screen: Vaccine status: Patient reports receiving the 2nd dose of the covid vaccine. Ebola Screen: Patient denies travel to an Ebola-affected area in the 21 days before illness onset. Initial Sepsis Screen: Does the patient meet any 2 criteria? No. Patient's initial sepsis screen is negative. Does the patient have a suspected source of infection? Yes:. Risk Assessment: Do you want to hurt yourself or someone else? Patient reports no desire to harm self or others. Onset of symptoms was September 10, 2021. 11:55 Method Of Arrival: EMS: [facility] 11:55 Acuity: THALIA 3 jenkins Triage Assessment: 12:00 General: Appears in no apparent distress. General: Behavior is calm, cooperative. Pain: jenkins Complains of pain in chest. Historical: - Allergies: 12:00 Imitrex; jenkins - Home Meds: 12:00 alprazolam 0.5 mg Oral tab 1 tab twice a day [Active]; amoxicillin-pot clavulanate jenkins 875-125 mg Oral tab 1 tab every 12 hours [Active]; chlorthalidone 25 mg Oral tab 1 tab once daily [Active]; doxazosin 2 mg Oral tab 1 tab twice a day [Active]; doxepin 100 mg Oral cap 1 cap once daily [Active]; duloxetine 60 mg Oral CDRS 1 cap once daily [Active]; escitalopram oxalate 20 mg Oral tab 1 tab once daily [Active]; furosemide 40 mg Oral tab 1 tab once daily [Active]; gabapentin 300 mg Oral cap 3 times per day [Active]; metoprolol tartrate 100 mg Oral tab 2 tabs 3 times per day [Active]; spironolactone 50 mg Oral tab 1 tab 2 times per day [Active]; trazodone 50 mg Oral tab 1 tab once daily [Active]; - PMHx: 12:00 Anxiety; Congestive heart failure; Diabetes - IDDM; Hypertension; Migraines; Thyroid jenkins problem; TIA; - PSHx: 12:00 section; Cholecystectomy; hysterectomy; jenkins - Immunization history:: Adult Immunizations up to date. - Social history:: Smoking status: Patient denies any tobacco usage or history of. - Family history:: not pertinent. Screenin:02 Abuse screen: Denies threats or abuse. Denies injuries from another. Nutritional jenkins screening: No deficits noted. Tuberculosis screening: No symptoms or risk factors identified. Fall Risk None identified. Assessment: 12:29 General: Appears in no apparent distress. Pain: Complains of pain in chest. jenkins Cardiovascular: Reports chest pain. 19:44 Reassessment: Patient appears in no apparent distress at this time. No changes from lg3 previously documented assessment. Patient and/or family updated on plan of care and expected duration. Pain level reassessed. Patient is alert, oriented x 3, equal unlabored respirations, skin warm/dry/pink. Patient states feeling better. 19:44 General: attempted to call report. nurse not available. . lg3 20:26 General: attempted to call report. nurse not available. lg3 Vital Signs: 11:55 BP 181 / 88; Pulse 83; Resp 19; Temp 98.5; Pulse Ox 95% on R/A; Weight 99.79 kg; Height jenkins 5 ft. 5 in. (165.10 cm); 13:02 BP 185 / 98; Pulse 75; Resp 18; Pulse Ox 93% on R/A; jenkins 14:28 BP 181 / 102; Pulse 72; Resp 17; Pulse Ox 93% on R/A; jenkins 14:49 BP 189 / 91; Pulse 73; Resp 18; Pulse Ox 93% on R/A; jenkins 19:44 BP 171 / 87; Pulse 70; Resp 17 S; Pulse Ox 98% on 2 lpm NC; lg3 11:55 Body Mass Index 36.61 (99.79 kg, 165.10 cm) ED Course: 11:55 Patient arrived in ED. jenkins 11:58 Triage completed. 11:59 Brooke Maurice RN is Primary Nurse. 12:00 Arm band placed on. 12:02 Philipp Harley MD is Attending Physician. yahir 12:02 Patient has correct armband on for positive identification. jenkins 12:02 No provider procedures requiring assistance completed. jenkins 12:29 Inserted saline lock: 20 gauge in left EJ, using aseptic technique. jenkins 13:04 XRAY Chest (1 view) In Process Unspecified. EDMS 13:32 Rm Deras MD is Hospitalizing Provider. yahir 20:43 Patient admitted, IV remains in place. intact, No redness/swelling at site. lg3 Administered Medications: 13:02 Not Given (pt has 324 asa PTAa): Aspirin Chewable Tablet 162 mg PO once jenkins 13:22 Not Given (Physician Discretion): NS 0.9% 500 ml IV at bolus once jenkins 13:29 Not Given (Physician Discretion): Aspirin 162 mg PO once jenkins 13:49 Drug: Nitro-Bid (nitroglycerin) Ointment 2 % 1 inches Route: Transdermal; Site: anterior chest wall; 13:49 Drug: Tylenol 650 mg Route: PO; jenkins 13:50 Follow up: Response: No adverse reaction jenkins 13:49 Drug: Lasix (furosemide) 60 mg Route: IVP; Site: Other; jenkins 13:50 Follow up: Response: No adverse reaction jenkins 13:49 Drug: morphine 2 mg Route: IVP; Infused Over: 4 mins; Site: Other; jenkins 13:50 Follow up: Response: No adverse reaction jenkins 13:49 Drug: morphine 2 mg Route: IVP; Infused Over: 4 mins; Site: Other; jenkins 13:50 Follow up: Response: No adverse reaction jenkins 13:49 Drug: Zofran (Ondansetron) 4 mg Route: IVP; Site: Other; jenkins 13:50 Follow up: Response: No adverse reaction jenkins 13:49 Drug: Lovenox (enoxaparin) 1 mg/kg Route: Sub-Q; Site: right lower abdomen; jenkins 13:50 Follow up: Response: No adverse reaction jenkins 13:49 Drug: Pepcid (famotidine) 20 mg Route: IVP; Site: Other; jenkins 13:50 Follow up: Response: No adverse reaction jenkins Medication: 12:02 VIS not applicable for this client. jenkins Outcome: 13:33 Decision to Hospitalize by Provider. yahir 20:42 Admitted to Med/surg accompanied by rm, via wheelchair, room 213, on monitor, Report lg3 called to aminah 20:42 Condition: stable 20:42 Instructed on the need for admit, Demonstrated understanding of instructions. 21:04 Patient left the ED. vc1 Signatures: Dispatcher [employer] Philipp Bolaños MD MD cha Gibson, Lacie, RN RN lg3 Anusha-StagerBrooke RN RN Marycruz Wasserman RN RN vc1
[2021-09-10] MEDS ORDERED: FUROSEMIDE 100 MG/10 ML VIAL IV ONE (13:43)
[2021-09-10] MEDS ORDERED: ACETAMINOPHEN 325 MG TABLET ONE (13:44)
[2021-09-10] MEDS ORDERED: NITROGLYCERIN 1 GM PKT TD ONE (13:44)
[2021-09-10] MEDS ORDERED: MORPHINE 4 MG/ML SYR ONE (13:44)
[2021-09-10] MEDS ORDERED: ONDANSETRON 4 MG/2 ML VIAL ONE (13:44)
[2021-09-10] MEDS ORDERED: ENOXAPARIN 100 MG/ML SYR SQ ONE (13:45)
[2021-09-10] MEDS ORDERED: FAMOTIDINE 20 MG/2 ML VIAL IV ONE (13:45)
[2021-09-10 14:03] LABS: SARS-CoV-2 Antigen Rapid Res Negative (Negative)
--- NOTE | 2021-09-10 15:40 | P.HP ---
Certification for Inpatient With expected LOS: >2 Midnights Practitioner: I am a practitioner with admitting privileges, knowledge of patient current condition, hospital course, and medical plan of care. Services: Services provided to patient in accordance with Admission requirements found in Title 42 Section 412.3 of the Code of Federal Regulations Patient History Date of Service: 09/10/21 Reason for admission: Lower extremity edema shortness of breath History of Present Illness: Patient is 70 years of age has been having progressive dyspnea lower extremity edema and worse over the past 2 months denies any fever chills cough sputum hemoptysis patient has been compliant with her medication history of diastolic heart failure also followed up by cardiology Allergies sumatriptan [From Imitrex] Allergy (Intermediate, Verified 01/28/19 22:40) Unknown Home Medications: Albuterol Inhaler [Ventolin Inhaler*] 2 puff IH Q6H PRN 06/21/21 Alprazolam [Xanax] 0.5 mg PO BID 06/21/21 Escitalopram [Lexapro*] 20 mg PO DAILY 06/21/21 Fluticasone/Vilanterol [Breo Ellipta 200-25 Mcg INH] 1 each IH DAILY 06/21/21 Furosemide [Lasix*] 40 mg PO DAILY 06/21/21 Losartan Potassium [Cozaar*] 50 mg PO BID 06/21/21 Spironolactone 50 mg PO DAILY 06/21/21 Temazepam 22.5 mg PO BEDTIME PRN 06/21/21 Gabapentin [Neurontin*] 200 mg PO TID 30 Days #90 cap 06/26/21 Butorphanol Tartrate 1 inh IN PRN 08/16/21 Doxepin HCl 100 mg PO BEDTIME 08/16/21 Gabapentin 300 mg PO TID 08/16/21 Metoprolol Tartrate 50 mg PO BID #60 tablet 08/17/21 - Past Medical/Surgical History Diabetic: Yes -: HTN -: Migraines -: TIA -: CHF -: GERD -: diverticulitis -: DM -: Depression/anxiety -: Lf ankle sx -: Hernia repair x2 -: Cholecystectomy -: Hysterectomy Psychosocial/ Personal History: Patient lives at home with her daughter. - Family History Mother -: Heart disease - Social History Alcohol use: No CD- Drugs: No Caffeine use: Yes Review of Systems 10-point ROS is otherwise unremarkable Physical Examination - Physical Exam General: Alert, Oriented x3 Neck: Supple Respiratory: Normal air movement, Diminished Cardiovascular: Edema (2+ edema) Gastrointestinal: Normal bowel sounds, Soft and benign Musculoskeletal: No clubbing, No contractures Integumentary: No rashes Neurological: Normal speech - Studies Laboratory Data (last 24 hrs) 09/10/21 12:20: PT 13.0 H, INR 1.18 09/10/21 12:20: WBC 6.1, Hgb 11.4 L, Hct 35.9 L, Plt Count 254 09/10/21 12:20: Sodium 137, Potassium 3.9, BUN 15, Creatinine 0.95, Glucose 172 H, Magnesium 1.8, Total Bilirubin 0.3, AST 21, ALT 22, Alkaline Phosphatase 114 Assessment and Plan - Problems (Diagnosis) (1) CHF (congestive heart failure) Current Visit: No Status: Acute Plan: Patient is 70 years of age admitted with worsening dyspnea lower extremity edema x-ray consistent with congestive heart failure BNP is very elevated admit restart home medications start aggressive diuresis chemistries reviewed Qualifiers: Heart failure type: systolic - Advance Directives Does patient have a Living Will: No Does patient have a Durable POA for Healthcare: No
[2021-09-10] MEDS ORDERED: HYDROCODONE/APAP 5/325 MG TAB PO PRN (17:58)
[2021-09-10] MEDS ORDERED: FUROSEMIDE 40 MG/4 ML VIAL IV SCH (18:00)
[2021-09-10] MEDS ORDERED: PROMETHAZINE 25 MG TABLET PO PRN (18:13)
[2021-09-10] MEDS: LOSARTAN POTASSIUM 50 MG TABLET PO SCH (21:37)
[2021-09-10] MEDS: GABAPENTIN 100 MG CAP PO SCH (21:37)
[2021-09-10] MEDS: ALPRAZOLAM 0.5 MG TABLET PO SCH (21:37)
[2021-09-10] MEDS: METOPROLOL TAR 50 MG TAB PO SCH (21:38)
[2021-09-10 21:53] VITALS: O2SAT 98
[2021-09-10 21:54] VITALS: BMI 37.8
[2021-09-11 05:36] VITALS: BP 143/78
[2021-09-11] MEDS ORDERED: HYDRALAZINE HCL 20 MG/ML VIAL IV PRN (05:36)
[2021-09-11 06:06] LABS: Magnesium 1.9 mg/dL (1.8-2.4); Phosphorus 3.8 mg/dL (2.5-4.9)
[2021-09-11 06:09] LABS: Albumin 2.7 g/dL (3.4-5.0); Bilirubin Total 0.3 mg/dL (0.2-1.0); Protein, Total 6.8 g/dL (6.4-8.2)
[2021-09-11] MEDS ORDERED: SPIRONOLACTONE 25 MG TABLET PO SCH (09:00)
[2021-09-11] MEDS ORDERED: ENOXAPARIN 40 MG/0.4 ML SQ SCH (09:00)
[2021-09-11] MEDS ORDERED: ESCITALOPRAM 20 MG TAB PO SCH (09:00)
[2021-09-11] MEDS ORDERED: FUROSEMIDE 40 MG/4 ML VIAL IV SCH ×3 (09:00→18:00)
[2021-09-11] MEDS: LOSARTAN POTASSIUM 50 MG TABLET PO SCH (09:17)
[2021-09-11] MEDS: GABAPENTIN 100 MG CAP PO SCH (09:17)
[2021-09-11] MEDS: ALPRAZOLAM 0.5 MG TABLET PO SCH (09:20)
[2021-09-11] MEDS: METOPROLOL TAR 50 MG TAB PO SCH (09:22)
--- NOTE | 2021-09-11 09:42 | P.DS ---
Admission Date: 09/10/21 Discharge Date: 09/11/21 Disposition: ROUTINE DISCHARGE Discharge Condition: FAIR Reason for Admission: Lower extremity edema shortness of breath - Problems (1) CHF (congestive heart failure) Current Visit: No Status: Acute Qualifiers: Heart failure type: systolic Brief History of Present Illness: Patient is 70 years of age has been having progressive dyspnea lower extremity edema and worse over the past 2 months denies any fever chills cough sputum hemoptysis patient has been compliant with her medication history of diastolic heart failure also followed up by cardiology Hospital Course: Patient is 70 years of age admitted with worsening dyspnea admitted for obse rvation she did well was treated with IV Lasix continue to complain of chronic headaches. Instructions have been given to the patient/monitor fluid and salt intake take extra doses of Lasix if you gain more than 2 pounds patient is to follow-up with her neurologist regarding chronic severe meaning migraines and does have a no spray at home laboratory data fairly unremarkable no change in her home medications Vital Signs/Physical Exam: Temp Pulse Resp BP Pulse Ox 97.3 F 54 16 143/78 H 96 09/11/21 04:00 09/11/21 09:19 09/11/21 06:10 09/11/21 09:19 09/11/21 06:10 Laboratory Data at Discharge: WBC 6.1 K/uL (4.3-10.9) 09/10/21 12:20 Hgb 11.4 g/dL (12.0-15.0) L 09/10/21 12:20 Hct 35.9 % (36.0-45.0) L 09/10/21 12:20 Plt Count 254 K/uL (152-406) 09/10/21 12:20 PT 13.0 SECONDS (9.5-12.5) H 09/10/21 12:20 INR 1.18 09/10/21 12:20 Sodium 139 mmol/L (136-145) 09/11/21 05:39 Potassium 4.0 mmol/L (3.5-5.1) 09/11/21 05:39 BUN 16 mg/dL (7-18) 09/11/21 05:39 Creatinine 0.97 mg/dL (0.55-1.3) 09/11/21 05:39 Glucose 98 mg/dL (74-106) 09/11/21 05:39 Phosphorus 3.8 mg/dL (2.5-4.9) 09/11/21 05:39 Magnesium 1.9 mg/dL (1.8-2.4) 09/11/21 05:39 Total Bilirubin 0.3 mg/dL (0.2-1.0) 09/11/21 05:39 AST 13 U/L (15-37) L 09/11/21 05:39 ALT 18 U/L (12-78) 09/11/21 05:39 Alkaline Phosphatase 100 U/L (45-117) 09/11/21 05:39 Home Medications: Albuterol Inhaler [Ventolin Inhaler*] 2 puff IH Q6H PRN 06/21/21 Alprazolam [Xanax] 0.5 mg PO BID 06/21/21 Escitalopram [Lexapro*] 20 mg PO DAILY 06/21/21 Fluticasone/Vilanterol [Breo Ellipta 200-25 Mcg INH] 1 each IH DAILY 06/21/21 Furosemide [Lasix*] 40 mg PO DAILY 06/21/21 Losartan Potassium [Cozaar*] 50 mg PO BID 06/21/21 Spironolactone 50 mg PO DAILY 06/21/21 Temazepam 22.5 mg PO BEDTIME PRN 06/21/21 Gabapentin [Neurontin*] 200 mg PO TID 30 Days #90 cap 06/26/21 Butorphanol Tartrate 1 inh IN PRN 08/16/21 Doxepin HCl 100 mg PO BEDTIME 08/16/21 Gabapentin 300 mg PO TID 08/16/21 Metoprolol Tartrate 50 mg PO BID #60 tablet 08/17/21 Physician Discharge Instructions: Patient to resume all her home medications weight daily if there is weight gain more than 2 pounds take an extra dose of furosemide 40 mg Patient to follow-up with her neurologist for her headaches otherwise no change in medications reduce salt and fluid intake drink only when thirsty no added salt diet weight daily Diet: Low sodium Activity: Ad jenny Followup: Juan José Jacobs DO [Primary Care Provider] - (Call to schedule appointment.)
[2021-09-11 10:34] VITALS: TEMP 97.2
--- NOTE | 2021-09-11 15:23 | EKG ---
Test Date: 2021-09-10 Test Time: 12:04:17 Aircraft Structural Design Engineer: ANTONIO MEASUREMENT RESULTS: Intervals: Rate: 80 AZ: 168 QRSD: 178 QT: 468 QTc: 539 Max: P: 42 AZ: 168 QRS: 4 T: 10 INTERPRETIVE STATEMENTS: Normal sinus rhythm Left bundle branch block Abnormal ECG Compared to ECG 08/15/2021 09:58:21 Sinus bradycardia no longer present Electronically Signed On 09-11-21 15:20:00 CDT by Florian Morris
== END 2021-09-11 12:34 | disposition home health service (06) ==
LOC: ER 11:47 → ERHOLD 15:41 → INTOOBSV 15:41 → 2ND 19:40
PROVIDERS: ADMIT Internal Medicine Sleep Medicine; ATTEND Internal Medicine Sleep Medicine
DX: I11.0 Hypertensive heart disease with heart failure (principal); I50.21 Acute systolic (congestive) heart failure; G43.909 Migraine, unspecified, not intractable, without status migrainosus; E11.65 Type 2 diabetes mellitus with hyperglycemia; K21.9 Gastro-esophageal reflux disease without esophagitis; F32.A Depression, unspecified; F41.9 Anxiety disorder, unspecified; E66.9 Obesity, unspecified; Z68.36 Body mass index [BMI] 36.0-36.9, adult; Z20.822 Contact with and (suspected) exposure to COVID-19; Z79.899 Other long term (current) drug therapy; Z88.6 Allergy status to analgesic agent; Z86.73 Personal history of transient ischemic attack (TIA), and cerebral infarction without residual deficits; Z90.49 Acquired absence of other specified parts of digestive tract; Z90.710 Acquired absence of both cervix and uterus; Z82.49 Family history of ischemic heart disease and other diseases of the circulatory system
CPT/HCPCS: 93005; 85025; 80048; 36415; 83735 ×2; 84100; 85610; 80076; 84484; 80053; 83880; 71045; 96375; 96372; 96374; 99285; 87811; J0360; J1940; Q0169; J1650 ×2; J2405; J3490; G0378

== ENCOUNTER 2021-09-30 14:26 | Emergency (ER) | payer OTHER ==
--- OUTSIDE RECORDS SUMMARY | 2021-09-30 14:40 | XMS REPORT | Continuity of Care Document ---
:1950 Author Organization [facility] t Address [address] [place] [address] [address] [place] [address] Care Team Providers Name Role Phone SHANAE BECK Primary Care Physician Unavailable EFRAÍN CARTER Attending Clinician Unavailable EFRAÍN CARTER Attending Clinician Unavailable Efraín Carter MD Attending Clinician Kt Holly Attending Clinician Unavailable ALLA BREWER Attending Clinician Unavailable Doctor Unassigned, [place] Attending Clinician Unavailable KRISTEL JURADO Attending Clinician Unavailable Shanae Beck MD Attending Clinician TAMARA BOWERS Attending Clinician Unavailable Tamara Gary Attending Clinician SHANAE BECK Attending Clinician Unavailable Kt Holly Admitting Clinician Unavailable Payers Payer Name Policy Type Policy Number Effective Date Expiration Date S agnes [facility] MEDICAREDIRECT [id number] 2021 PFFS 00:00:00 [facility] [id number] 2021 [facility] PPO 00:00:00 [place] [id number] 2021 00:00:00 Problems Condition Condition Condition Status Onset Resolution Last Treating Co mments Source Name Details Category Date Date Treatment Clinician Date Grief Grief Disease Active Univers 3-06 ity of 00:00: [address] Reactive Reactive Disease Active Unive rs depression depression 04-19 it y of 00:00: [address] No known No known Disease Unive rs active active ity of problems problems [facility] Allergies, Adverse Reactions, Alerts Allergy Allergy Status Severity Reaction(s) Onset Inactive Treating Comm ents Source Name Type Date Date Clinician No Known DA Active U [facility] Allergie 05-17 [place] s 00:00: [facility] 00 [facility] NO KNOWN Drug Active Univers ALLERGIE Class ity of S [facility] Social History Social Habit Start Date Stop Date Quantity Comments Source Exposure to Not sure [facility] SARS-CoV-2 [facility] (event) Branch Alcohol intake 2019-04-20 2019-04-20 Current University of 00:00:00 00:00:00 non-drinker of [facility] alcohol [place] (finding) Tobacco use and 2018-06-27 2018-06-27 Never used Universit y of exposure 00:00:00 00:00:00 [facility] Sex [birth year] Universit y of 00:00:00 00:00:00 [facility] Smoking Status Start Date Stop Date Source Never smoker [facility] Medications Ordered Filled Start Stop [...] MOUTH EVERYDAY Medical AT BEDTIME Branch butorphanol Yes 2745 INHALE ONE Univers 10 mg/mL 3-05 SPRAY IN ity of nasal spray 00:00: ONE NOSTRIL Medical EVERY 8 Branch HOURS NEEDED FOR HEADACHE Indication s: chronic pain, headache butorphanol 2021-0 Yes 2745 INHALE ONE Univers 10 mg/mL 3-05 SPRAY IN ity of nasal spray 00:00: ONE [place] NOSTRIL Medical EVERY 8 Branch HOURS NEEDED FOR HEADACHE Indication s: chronic pain, headache butorphanol 2021-0 Yes 2745 INHALE ONE Univers 10 mg/mL 3-05 SPRAY IN ity of nasal spray 00:00: ONE [place] NOSTRIL Medical EVERY 8 Branch HOURS NEEDED FOR HEADACHE Indication s: chronic pain, headache butorphanol 2021-0 Yes 2745 INHALE ONE Univers 10 mg/mL 3-05 SPRAY IN ity of nasal spray 00:00: ONE [place] NOSTRIL Medical EVERY 8 Branch HOURS NEEDED FOR HEADACHE Indication s: chronic pain, headache butorphanol 2021-0 Yes 2745 USE 1 Unive rs 10 mg/mL 2-05 SPRAY IN ity of nasal spray 00:00: ONE [place] NOSTRIL Medical EVERY 8 Branch HOURS NEEDED FOR HEADACHE Indication s: acute pain, chronic pain, Headache butorphanol 2021-0 Yes 2745 USE 1 Unive rs 10 mg/mL 2-05 SPRAY IN ity of nasal spray 00:00: ONE [place] NOSTRIL Medical EVERY 8 Branch HOURS NEEDED FOR HEADACHE Indication s: acute pain, chronic pain, Headache butorphanol 2021-0 Yes 2745 USE 1 Unive rs 10 mg/mL 2-05 SPRAY IN ity of nasal spray 00:00: ONE [place] NOSTRIL Medical EVERY 8 Branch HOURS NEEDED FOR HEADACHE Indication s: acute pain, chronic pain, Headache butorphanol 2021-0 Yes 2745 USE 1 Unive rs 10 mg/mL 2-05 SPRAY IN ity of nasal spray 00:00: ONE [place] NOSTRIL Medical EVERY 8 Branch HOURS NEEDED FOR HEADACHE Indication s: acute pain, chronic pain, Headache butorphanol 2021-0 Yes 2745 USE 1 Unive rs 10 mg/mL 2-05 SPRAY IN ity of nasal spray 00:00: ONE [place] [address] NOSTRIL Medical EVERY 8 Branch HOURS NEEDED FOR HEADACHE Indication s: acute pain, chronic pain, Headache butorphanol 2021-0 Yes 2745 USE 1 Unive rs 10 mg/mL 2-05 SPRAY IN ity of nasal spray 00:00: ONE [place] NOSTRIL Medical EVERY 8 Branch HOURS NEEDED FOR HEADACHE Indication s: acute pain, chronic pain, Headache butorphanol 2021-0 Yes 2745 USE 1 Unive rs 10 mg/mL 2-05 SPRAY IN ity of nasal spray 00:00: ONE [place] 00 NOSTRIL Medical EVERY 8 Branch HOURS NEEDED FOR HEADACHE Indication s: acute pain, chronic pain, Headache butorphanol 2021-0 Yes 2745 USE 1 Unive rs 10 mg/mL 2-05 SPRAY IN ity of nasal spray 00:00: ONE [place] NOSTRIL Medical EVERY 8 Branch HOURS NEEDED FOR HEADACHE Indication s: acute pain, chronic pain, Headache butorphanol 2021-0 Yes 2745 USE 1 Unive rs 10 mg/mL 2-05 SPRAY IN ity of nasal spray 00:00: ONE [place] NOSTRIL Medical EVERY 8 Branch HOURS NEEDED FOR HEADACHE Indication s: acute pain, chronic pain, Headache butorphanol 2021-0 Yes 2745 USE 1 Unive rs 10 mg/mL 2-05 SPRAY IN ity of nasal spray 00:00: ONE [place] NOSTRIL Medical EVERY 8 Branch HOURS NEEDED FOR HEADACHE Indication s: acute pain, chronic pain, Headache butorphanol 2021-0 Yes 2745 USE 1 Unive rs 10 mg/mL 2-05 SPRAY IN ity of nasal spray 00:00: ONE [place] [address] NOSTRIL Medical EVERY 8 Branch HOURS NEEDED FOR HEADACHE Indication s: acute pain, chronic pain, Headache butorphanol 2021-0 2021- No 2745 USE 1 Univ ers 10 mg/mL 2-05 03-05 SPRAY IN ity of nasal spray 00:00: 00:00 [facility] 00 :00 NOSTRIL Medical EVERY 8 Branch HOURS NEEDED FOR HEADACHE Indication s: acute pain, chronic pain, Headache butorphanol 2021-0 2021- No 2745 USE 1 Univ ers 10 mg/mL 2-05 03-05 SPRAY IN ity of nasal spray 00:00: 00:00 [facility] 00 :00 NOSTRIL Medical EVERY 8 Branch HOURS NEEDED FOR HEADACHE Indication s: acute pain, chronic pain, Headache butorphanol 2021-0 Yes 2745 USE 1 Unive rs 10 mg/mL 1-05 SPRAY IN ity of nasal spray 00:00: ONE [place] [address] NOSTRIL Medical EVERY 8 Branch HOURS NEEDED FOR HEADACHE Indication s: acute pain, chronic pain, Headache butorphanol 2021-0 Yes 2745 USE 1 Unive rs 10 mg/mL 1-05 SPRAY IN ity of nasal spray 00:00: ONE [place] NOSTRIL Medical EVERY 8 Branch HOURS NEEDED FOR HEADACHE Indication s: acute pain, chronic pain, Headache butorphanol 0 Yes 2745 USE 1 Unive rs 10 mg/mL 1-05 SPRAY IN ity of nasal spray 00:00: ONE [place] NOSTRIL Medical EVERY 8 Branch HOURS NEEDED FOR HEADACHE Indication s: acute pain, chronic pain, Headache butorphanol 202- No 2745 USE 1 Univ ers 10 mg/mL 1-05 02-05 SPRAY IN ity of nasal spray 00:00: 00:00 [facility] 00 :00 NOSTRIL Medical EVERY 8 Branch HOURS NEEDED FOR HEADACHE Indication s: acute pain, chronic pain, Headache butorphanol 2019-02 Yes 2745 USE 1 Unive rs 10 mg/mL 2-07 SPRAY IN ity of nasal spray 00:00: ONE [place] NOSTRIL Medical EVERY 8 Branch HOURS NEEDED FOR HEADACHE Indication s: acute pain, chronic pain, Headache butorphanol 2019-02 Yes 2745 USE 1 Unive rs 10 mg/mL 2-07 SPRAY IN ity of nasal spray 00:00: ONE [place] NOSTRIL Medical EVERY 8 Branch HOURS NEEDED FOR HEADACHE Indication s: acute pain, chronic pain, Headache butorphanol 2019-02- No 2745 USE 1 Univ ers 10 mg/mL 2-07 01-05 SPRAY IN ity of nasal spray 00:00: 00:00 [facility] 00 :00 NOSTRIL Medical EVERY 8 Branch HOURS NEEDED FOR HEADACHE Indication s: acute pain, chronic pain, Headache AMITRIPTYLI 2019-02 Yes TAKE 1 Univ ers NE 25 mg 1-10 TABLET BY ity of tablet 00:00: MOUTH [place] 00 EVERYDAY Medical AT BEDTIME Branch AMITRIPTYLI 2020- Yes TAKE 1 Univ ers NE 25 mg 1-10 TABLET BY ity of tablet 00:00: MOUTH [place] 00 EVERYDAY Medical AT BEDTIME Branch AMITRIPTYLI 2020- Yes TAKE 1 Univ ers NE 25 mg 1-10 TABLET BY ity of tablet 00:00: MOUTH [place] 00 EVERYDAY Medical AT BEDTIME Branch AMITRIPTYLI 2020- Yes TAKE 1 Univ ers NE 25 mg 1-10 TABLET BY ity of tablet 00:00: [facility] 00 EVERYDAY Medical AT BEDTIME Branch [...] HOSPITAL EVERYDAY Medical AT BEDTIME Branch AMITRIPTYLI 2020-1 Yes TAKE 1 Univ ers NE 25 mg 1-10 TABLET BY ity of tablet 00:00: [facility] EVERYDAY Medical AT BEDTIME Branch AMITRIPTYLI 2020-1 Yes TAKE 1 Univ ers NE 25 mg 1-10 TABLET BY ity of tablet 00:00: MOUTH 00 EVERYDAY Medical AT BEDTIME Branch AMITRIPTYLI 2020 Yes TAKE 1 Univ ers NE 25 mg 1-10 TABLET BY ity of tablet 00:00: MOUTH 00 EVERYDAY Medical AT BEDTIME Branch AMITRIPTYLI 2019-02 Yes TAKE 1 Univ ers NE 25 mg 1-10 TABLET BY ity of tablet 00:00: MOUTH 00 EVERYDAY Medical AT BEDTIME Branch AMITRIPTYLI 2019-02 Yes TAKE 1 Univ ers NE 25 mg 1-10 TABLET BY ity of tablet 00:00: [facility] EVERYDAY Medical AT BEDTIME Branch AMITRIPTYLI 2019-02 Yes TAKE 1 Univ ers NE 25 mg 1-10 TABLET BY ity of tablet 00:00: [facility] EVERYDAY Medical AT BEDTIME Branch AMITRIPTYLI 2019-02- No TAKE 1 Uni vers NE 25 mg 1-10 05-05 TABLET BY ity o f tablet 00:00: 00:00 [facility] 00 :00 EVERYDAY Medical AT BEDTIME Branch butorphanol 2019-02 Yes 2745 USE 1 Unive rs 10 mg/mL 1-09 SPRAY IN ity of nasal spray 00:00: [place] NOSTRIL Medical EVERY 8 Branch HOURS NEEDED FOR HEADACHE Indication s: chronic pain, Headache butorphanol 2019-02 Yes 2745 USE 1 Unive rs 10 mg/mL 1-09 SPRAY IN ity of nasal spray 00:00: [place] NOSTRIL Medical EVERY 8 Branch HOURS NEEDED FOR HEADACHE Indication s: chronic pain, Headache butorphanol 2019-02 Yes 2745 USE 1 Unive rs 10 mg/mL 1-09 SPRAY IN ity of nasal spray 00:00: [place] NOSTRIL Medical EVERY 8 Branch HOURS NEEDED FOR HEADACHE Indication s: chronic pain, Headache butorphanol 2019-02 2020- No 2745 USE 1 Univ ers 10 mg/mL 1-09 12-07 SPRAY IN ity of nasal spray 00:00: 00:00 [facility] 00 :00 NOSTRIL Medical EVERY 8 Branch HOURS NEEDED FOR HEADACHE Indication s: chronic pain, Headache butorphanol 2019- Yes 2745 USE 1 Unive rs 10 mg/mL 0-09 SPRAY IN ity of nasal spray 00:00: [place] NOSTRIL Medical EVERY 8 Branch HOURS NEEDED FOR HEADACHE Indication s: chronic pain, Headache butorphanol 2019- Yes 2745 USE 1 Unive rs 10 mg/mL 0-09 SPRAY IN ity of nasal spray 00:00: ONE [place] NOSTRIL Medical EVERY 8 Branch HOURS NEEDED FOR HEADACHE Indication s: chronic pain, Headache butorphanol 2020-1 2020- No 2745 USE 1 Univ ers 10 mg/mL 0-09 11-09 SPRAY IN ity of nasal spray 00:00: 00:00 ONE [place] 00 :00 NOSTRIL Medical EVERY 8 Branch HOURS NEEDED FOR HEADACHE Indication s: chronic pain, Headache butorphanol 2020-0 Yes 2745 USE 1 Unive rs 10 mg/mL 9-11 SPRAY IN ity of nasal spray 00:00: ONE [place] NOSTRIL Medical EVERY 8 Branch HOURS NEEDED FOR HEADACHE Indication s: chronic pain, Headache butorphanol 2020-0 Yes 2745 USE 1 Unive rs 10 mg/mL 9-11 SPRAY IN ity of nasal spray 00:00: ONE [place] [address] NOSTRIL Medical EVERY 8 Branch HOURS NEEDED FOR HEADACHE Indication s: chronic pain, Headache butorphanol 2020-0 2020- No 2745 USE 1 Univ ers 10 mg/mL 9-11 10-09 SPRAY IN ity of nasal spray 00:00: 00:00 [facility] 00 :00 NOSTRIL Medical EVERY 8 Branch HOURS NEEDED FOR HEADACHE Indication s: chronic pain, Headache butorphanol 2020-0 Yes USE 1 Unive rs 10 mg/mL 8-14 SPRAY IN ity of nasal spray 00:00: ONE [place] [address] NOSTRIL Medical EVERY 8 Branch HOURS NEEDED FOR HEADACHE Indication s: Headache butorphanol 2020-0 Yes 2745 USE 1 Unive rs 10 mg/mL 8-14 SPRAY IN ity of nasal spray 00:00: ONE [place] [address] NOSTRIL Medical EVERY 8 Branch HOURS NEEDED FOR HEADACHE Indication s: chronic pain, Headache butorphanol 2020-0 Yes 2745 USE 1 Unive rs 10 mg/mL 8-14 SPRAY IN ity of nasal spray 00:00: ONE [place] [address] NOSTRIL Medical EVERY 8 Branch HOURS NEEDED FOR HEADACHE Indication s: chronic pain, Headache butorphanol 2020-0 2020- No 2745 USE 1 Univ ers 10 mg/mL 8-14 09-11 SPRAY IN ity of nasal spray 00:00: 00:00 [facility] 00 :00 NOSTRIL Medical EVERY 8 Branch HOURS NEEDED FOR HEADACHE Indication s: chronic pain, Headache butorphanol 2020-0 2020- No USE 1 Univ ers 10 mg/mL 8-14 08-14 SPRAY IN ity of nasal spray 00:00: 00:00 ONE [place] 00 :00 NOSTRIL Medical EVERY 8 Branch HOURS NEEDED FOR HEADACHE Indication s: Headache butorphanol 2020-0 Yes USE 1 Unive rs 10 mg/mL 7-14 SPRAY IN ity of nasal spray 00:00: ONE [place] 00 NOSTRIL Medical EVERY 8 Branch HOURS NEEDED FOR HEADACHE Indication s: Headache butorphanol 2020-0 2020- No USE 1 Univ ers 10 mg/mL 7-14 08-14 SPRAY IN ity of nasal spray 00:00: 00:00 ONE [place] 00 :00 NOSTRIL Medical EVERY 8 Branch HOURS NEEDED FOR HEADACHE Indication s: Headache butorphanol 2020-0 2020- No USE 1 Univ ers 10 mg/mL 6-09 07-14 SPRAY IN ity of nasal spray 00:00: 00:00 ONE [place] 00 :00 NOSTRIL Medical EVERY 8 Branch HOURS NEEDED FOR HEADACHE butorphanol 2020-0 Yes USE 1 Unive rs 10 mg/mL 6-04 SPRAY IN ity of nasal spray 00:00: ONE [place] 00 NOSTRIL Medical EVERY 8 Branch HOURS NEEDED FOR HEADACHE butorphanol 2020-0 Yes USE 1 Unive rs 10 mg/mL 6-04 SPRAY IN ity of nasal spray 00:00: ONE [place] [address] NOSTRIL Medical EVERY 8 Branch HOURS NEEDED FOR HEADACHE butorphanol 2020-0 Yes USE 1 Unive rs 10 mg/mL 6-04 SPRAY IN ity of nasal spray 00:00: ONE [place] [address] NOSTRIL Medical EVERY 8 Branch HOURS NEEDED FOR HEADACHE butorphanol 2020-0 Yes USE 1 Unive rs 10 mg/mL 6-04 SPRAY IN ity of nasal spray 00:00: ONE [place] [address] NOSTRIL Medical EVERY 8 Branch HOURS NEEDED FOR HEADACHE butorphanol 2020-0 Yes USE 1 Unive rs 10 mg/mL 6-04 SPRAY IN ity of nasal spray 00:00: ONE [place] 00 NOSTRIL Medical EVERY 8 Branch HOURS NEEDED FOR HEADACHE butorphanol 2020-0 Yes USE 1 Unive rs 10 mg/mL 6-04 SPRAY IN ity of nasal spray 00:00: ONE [place] [address] NOSTRIL Medical EVERY 8 Branch HOURS NEEDED FOR HEADACHE butorphanol 2020-0 Yes USE 1 Unive rs 10 mg/mL 6-04 SPRAY IN ity of nasal spray 00:00: ONE [place] 00 NOSTRIL Medical EVERY 8 Branch HOURS NEEDED FOR HEADACHE SERTRALINE 2020-0 Yes [id number] TAKE 1 U nivers 25 mg 5-21 TABLET BY ity of tablet 00:00: [facility] EVERY DAY Medical Branch SERTRALINE 2020-0 Yes [id number] TAKE 1 U nivers 25 mg 5-21 TABLET BY ity of tablet 00:00: [facility] EVERY DAY Medical Branch SERTRALINE 2020-0 Yes [id number] TAKE 1 U nivers 25 mg 5-21 TABLET BY ity of tablet 00:00: [facility] EVERY DAY Medical Branch SERTRALINE 2020-0 Yes [id number] TAKE 1 U nivers 25 mg 5-21 TABLET BY ity of tablet 00:00: [facility] EVERY DAY Medical Branch SERTRALINE 2020-0 Yes [id number] TAKE 1 U nivers 25 mg 5-21 TABLET BY ity of tablet 00:00: [facility] EVERY DAY Medical Branch SERTRALINE 2020-0 Yes [id number] TAKE 1 U nivers 25 mg 5-21 TABLET BY ity of tablet 00:00: [facility] EVERY DAY Medical Branch SERTRALINE 2020-0 Yes [id number] TAKE 1 U nivers 25 mg 5-21 TABLET BY ity of tablet 00:00: [facility] EVERY DAY Medical Branch SERTRALINE 2020-0 Yes [id number] TAKE 1 U nivers 25 mg 5-21 TABLET BY ity of tablet 00:00: [facility] EVERY DAY Medical Branch SERTRALINE 2020-0 Yes [id number] TAKE 1 U nivers 25 mg 5-21 TABLET BY ity of tablet 00:00: [facility] EVERY DAY Medical Branch SERTRALINE 2020-0 Yes [id number] TAKE 1 U nivers 25 mg 5-21 TABLET BY ity of tablet 00:00: [facility] EVERY DAY Medical Branch SERTRALINE 2020-0 Yes [id number] TAKE 1 U nivers 25 mg 5-21 TABLET BY ity of tablet 00:00: [facility] EVERY DAY Medical Branch SERTRALINE 2020-0 Yes [id number] TAKE 1 U nivers 25 mg 5-21 TABLET BY ity of tablet 00:00: [facility] EVERY DAY Medical Branch SERTRALINE 2020-0 Yes [id number] TAKE 1 U nivers 25 mg 5-21 TABLET BY ity of tablet 00:00: MOUTH [place] EVERY DAY Medical Branch SERTRALINE 2020-0 Yes [id number] TAKE 1 U nivers 25 mg 5-21 TABLET BY ity of tablet 00:00: [facility] EVERY DAY Medical Branch SERTRALINE 2020-0 Yes [id number] TAKE 1 U nivers 25 mg 5-21 TABLET BY ity of tablet 00:00: [facility] EVERY DAY Medical Branch SERTRALINE 2020-0 Yes [id number] TAKE 1 U nivers 25 mg 5-21 TABLET BY ity of tablet 00:00: MOUTH [place] EVERY DAY Medical Branch SERTRALINE 2020-0 Yes [id number] TAKE 1 U nivers 25 mg 5-21 TABLET BY ity of tablet 00:00: [facility] EVERY DAY Medical Branch SERTRALINE 2020-0 Yes [id number] TAKE 1 U nivers 25 mg 5-21 TABLET BY ity of tablet 00:00: [facility] EVERY DAY Medical Branch SERTRALINE 2020-0 Yes [id number] TAKE 1 U nivers 25 mg 5-21 TABLET BY ity of tablet 00:00: [facility] EVERY DAY Medical Branch SERTRALINE 2020-0 Yes [id number] TAKE 1 U nivers 25 mg 5-21 TABLET BY ity of tablet 00:00: [facility] EVERY DAY Medical Branch SERTRALINE 2020-0 Yes [id number] TAKE 1 U nivers 25 mg 5-21 TABLET BY ity of tablet 00:00: [facility] EVERY DAY Medical Branch SERTRALINE 2020-0 Yes [id number] TAKE 1 U nivers 25 mg 5-21 TABLET BY ity of tablet 00:00: [facility] EVERY DAY Medical Branch SERTRALINE 2020-0 Yes [id number] TAKE 1 U nivers 25 mg 5-21 TABLET BY ity of tablet 00:00: [facility] EVERY DAY Medical Branch SERTRALINE 2020-0 Yes [id number] TAKE 1 U nivers 25 mg 5-21 TABLET BY ity of tablet 00:00: [facility] 00 EVERY DAY Medical Branch SERTRALINE 2020-0 Yes [id number] TAKE 1 U nivers 25 mg 5-21 TABLET BY ity of tablet 00:00: [facility] EVERY DAY Medical Branch SERTRALINE 2020-0 Yes [id number] TAKE 1 U nivers 25 mg 5-21 TABLET BY ity of tablet 00:00: MOUTH [place] 00 EVERY DAY Medical Branch SERTRALINE 2020-0 Yes [id number] TAKE 1 U nivers 25 mg 5-21 TABLET BY ity of tablet 00:00: MOUTH [place] EVERY DAY Medical Branch SERTRALINE 2020-0 Yes [id number] TAKE 1 U nivers 25 mg 5-21 TABLET BY ity of tablet 00:00: MOUTH [place] EVERY DAY Medical Branch SERTRALINE 2020-0 Yes [id number] TAKE 1 U nivers 25 mg 5-21 TABLET BY ity of tablet 00:00: MOUTH [place] EVERY DAY Medical Branch SERTRALINE 2020-0 Yes [id number] TAKE 1 U nivers 25 mg 5-21 TABLET BY ity of tablet 00:00: [facility] EVERY DAY Medical Branch SERTRALINE 2020-0 Yes [id number] TAKE 1 U nivers 25 mg 5-21 TABLET BY ity of tablet 00:00: [facility] EVERY DAY Medical Branch SERTRALINE 2020-0 Yes [id number] TAKE 1 U nivers 25 mg 5-21 TABLET BY ity of tablet 00:00: [facility] EVERY DAY Medical Branch SERTRALINE 2020-0 Yes [id number] TAKE 1 U nivers 25 mg 5-21 TABLET BY ity of tablet 00:00: [facility] EVERY DAY Medical Branch SERTRALINE 2020-0 Yes [id number] TAKE 1 U nivers 25 mg 5-21 TABLET BY ity of tablet 00:00: [facility] EVERY DAY Medical Branch SERTRALINE 2020-0 Yes [id number] TAKE 1 U nivers 25 mg 5-21 TABLET BY ity of tablet 00:00: [facility] EVERY DAY Medical Branch SERTRALINE 2020-0 Yes [id number] TAKE 1 U nivers 25 mg 5-21 TABLET BY ity of tablet 00:00: [facility] EVERY DAY Medical Branch SERTRALINE 2020-0 Yes [id number] TAKE 1 U nivers 25 mg 5-21 TABLET BY ity of tablet 00:00: [facility] EVERY DAY Medical Branch SERTRALINE 2020-0 Yes [id number] TAKE 1 U nivers 25 mg 5-21 TABLET BY ity of tablet 00:00: [facility] EVERY DAY Medical Branch SERTRALINE 2020-0 Yes [id number] TAKE 1 U nivers 25 mg 5-21 TABLET BY ity of tablet 00:00: MOUTH [place] EVERY DAY Medical Branch SERTRALINE 2020-0 Yes [id number] TAKE 1 U nivers 25 mg 5-21 TABLET BY ity of tablet 00:00: MOUTH [place] EVERY DAY Medical Branch SERTRALINE 2020-0 Yes [id number] TAKE 1 U nivers 25 mg 5-21 TABLET BY ity of tablet 00:00: MOUTH [place] EVERY DAY Medical Branch SERTRALINE 2020-0 Yes [id number] TAKE 1 U nivers 25 mg 5-21 TABLET BY ity of tablet 00:00: MOUTH [place] EVERY DAY Medical Branch SERTRALINE 2020-0 Yes [id number] TAKE 1 U nivers 25 mg 5-21 TABLET BY ity of tablet 00:00: MOUTH [place] EVERY DAY Medical Branch butorphanol 2020-0 Yes USE 1 Unive rs 10 mg/mL 5-05 SPRAY IN ity of nasal spray 00:00: ONE [place] NOSTRIL Medical EVERY 8 Branch HOURS NEEDED FOR HEADACHE amitriptyli 2020-0 Yes 25mg Take 1 Univ ers ne 25 mg 5-05 tablet by ity of tablet 00:00: mouth at [place] [address] bedtime. Medical Branch butorphanol 2020-0 Yes USE 1 Unive rs 10 mg/mL 5-05 SPRAY IN ity of nasal spray 00:00: [place] NOSTRIL Medical EVERY 8 Branch HOURS NEEDED FOR HEADACHE amitriptyli 2020-0 Yes 25mg Take 1 Univ ers ne 25 mg 5-05 tablet by ity of tablet 00:00: mouth at [place] [address] bedtime. Medical Branch butorphanol 2020-0 Yes USE 1 Unive rs 10 mg/mL 5-05 SPRAY IN ity of nasal spray 00:00: ONE [place] NOSTRIL Medical EVERY 8 Branch HOURS NEEDED FOR HEADACHE amitriptyli 2020-0 Yes 25mg Take 1 Univ ers ne 25 mg 5-05 tablet by ity of tablet 00:00: mouth at [place] [address] bedtime. Medical Branch butorphanol 2020-0 Yes USE 1 Unive rs 10 mg/mL 5-05 SPRAY IN ity of nasal spray 00:00: ONE [place] NOSTRIL Medical EVERY 8 Branch HOURS NEEDED FOR HEADACHE amitriptyli 2020-0 Yes 25mg Take 1 Univ ers ne 25 mg 5-05 tablet by ity of tablet 00:00: mouth at [place] [address] bedtime. Medical Branch butorphanol 2020-0 Yes USE 1 Unive rs 10 mg/mL 5-05 SPRAY IN ity of nasal spray 00:00: ONE [place] [address] NOSTRIL Medical EVERY 8 Branch HOURS NEEDED FOR HEADACHE amitriptyli 2020-0 Yes 25mg Take 1 Univ ers ne 25 mg 5-05 tablet by ity of tablet 00:00: mouth at [place] [address] bedtime. Medical Branch amitriptyli 2020-0 Yes 25mg Take 1 Univ ers ne 25 mg 5-05 tablet by ity of tablet 00:00: mouth at [place] [address] bedtime. Medical Branch amitriptyli 2020-0 Yes 25mg Take 1 Univ ers ne 25 mg 5-05 tablet by ity of tablet 00:00: mouth at [place] [address] bedtime. Medical Branch amitriptyli 2020-0 Yes 25mg Take 1 Univ ers ne 25 mg 5-05 tablet by ity of tablet 00:00: mouth at [place] [address] bedtime. Medical Branch amitriptyli 2020-0 Yes 25mg Take 1 Univ ers ne 25 mg 5-05 tablet by ity of tablet 00:00: mouth at [place] [address] bedtime. Medical Branch amitriptyli 2020-0 Yes 25mg Take 1 Univ ers ne 25 mg 5-05 tablet by ity of tablet 00:00: mouth at [place] [address] bedtime. Medical Branch amitriptyli 2020-0 Yes 25mg Take 1 Univ ers ne 25 mg 5-05 tablet by ity of tablet 00:00: mouth at [place] [address] bedtime. Medical Branch amitriptyli 2020-0 Yes 25mg Take 1 Univ ers ne 25 mg 5-05 tablet by ity of tablet 00:00: mouth at [place] [address] bedtime. Medical Branch amitriptyli 2020-0 Yes 25mg Take 1 Univ ers ne 25 mg 5-05 tablet by ity of tablet 00:00: mouth at [place] [address] bedtime. Medical Branch amitriptyli 2020-0 Yes 25mg Take 1 Univ ers ne 25 mg 5-05 tablet by ity of tablet 00:00: mouth at [place] [address] bedtime. Medical Branch amitriptyli 2020-0 Yes 25mg Take 1 Univ ers ne 25 mg 5-05 tablet by ity of tablet 00:00: mouth at [place] [address] bedtime. Medical Branch amitriptyli 2020-0 Yes 25mg Take 1 Univ ers ne 25 mg 5-05 tablet by ity of tablet 00:00: mouth at [place] [address] bedtime. Medical Branch amitriptyli 2020-0 Yes 25mg Take 1 Univ ers ne 25 mg 5-05 tablet by ity of tablet 00:00: mouth at [place] [address] bedtime. Medical Branch amitriptyli 2020-0 Yes 25mg Take 1 Univ ers ne 25 mg 5-05 tablet by ity of tablet 00:00: mouth at [place] [address] bedtime. Medical Branch amitriptyli 2020-0 Yes 25mg Take 1 Univ ers ne 25 mg 5-05 tablet by ity of tablet 00:00: mouth at [place] [address] bedtime. Medical Branch amitriptyli 2020-0 Yes 25mg Take 1 Univ ers ne 25 mg 5-05 tablet by ity of tablet 00:00: mouth at [place] [address] bedtime. Medical Branch amitriptyli 2020-0 Yes 25mg Take 1 Univ ers ne 25 mg 5-05 tablet by ity of tablet 00:00: mouth at [place] [address] bedtime. Medical Branch amitriptyli 2020-0 Yes 25mg Take 1 Univ ers ne 25 mg 5-05 tablet by ity of tablet 00:00: mouth at [place] [address] bedtime. Medical Branch amitriptyli 2020-0 2020- No 25mg Take 1 Uni vers ne 25 mg 5-05 11-10 tablet by ity o f tablet 00:00: 00:00 mouth at [place] 00 :00 bedtime. Medical Branch butorphanol 2020-0 2020- No USE 1 [facility] 10 mg/mL 5-05 06-04 SPRAY IN ity of nasal spray 00:00: 00:00 ONE [place] 00 :00 NOSTRIL Medical EVERY 8 Branch HOURS NEEDED FOR HEADACHE butorphanol 2020-0 2020- No USE 1 [facility] 10 mg/mL 5-05 06-04 SPRAY IN ity of nasal spray 00:00: 00:00 ONE [place] 00 :00 NOSTRIL Medical EVERY 8 Branch HOURS NEEDED FOR HEADACHE AMITRIPTYLI 2020-0 Yes TAKE 1 [facility] NE 25 mg 4-14 TABLET BY ity of tablet 00:00: MOUTH [place] 00 EVERYDAY Medical AT BEDTIME Branch AMITRIPTYLI 2020-0 2020- No TAKE 1 [facility] NE 25 mg 4-14 05-05 TABLET BY ity o f tablet 00:00: 00:00 MOUTH [place] 00 :00 EVERYDAY Medical AT BEDTIME Branch butorphanol 2020-0 Yes USE 1 [facility] 10 mg/mL 4-01 SPRAY IN ity of nasal spray 00:00: ONE 00 NOSTRIL Medical EVERY 8 Branch HOURS NEEDED FOR HEADACHE butorphanol 2020-0 Yes USE 1 [facility] 10 mg/mL 4-01 SPRAY IN ity of nasal spray 00:00: ONE NOSTRIL Medical EVERY 8 Branch HOURS NEEDED FOR HEADACHE butorphanol 2020-0 2020- No USE 1 [facility] 10 mg/mL 4-01 05-05 SPRAY IN ity of nasal spray 00:00: 00:00 ONE [place] 00 :00 NOSTRIL Medical EVERY 8 Branch [...] Medical AT BEDTIME Branch sulfamethox 2020-0 Yes [id number] 1{tbl} Take 1 [facility] azole-trime 3-25 tablet by ity of thoprim 00:00: mouth 2 [place] 800-160 mg 00 (two) Medical per tablet times Branch daily. sulfamethox 2020-0 Yes [id number] 1{tbl} Take 1 [facility] azole-trime 3-25 tablet by ity of thoprim 00:00: mouth 2 [place] 800-160 mg 00 (two) Medical per tablet times Branch daily. sulfamethox 2020-0 Yes [id number] 1{tbl} Take 1 [facility] azole-trime 3-25 tablet by ity of thoprim 00:00: mouth 2 [place] 800-160 mg 00 (two) Medical per tablet times Branch daily. sulfamethox 2020-0 Yes [id number] 1{tbl} Take 1 [facility] azole-trime 3-25 tablet by ity of thoprim 00:00: mouth 2 [place] 800-160 mg 00 (two) Medical per tablet times Branch daily. sulfamethox 2020-0 Yes [id number] 1{tbl} Take 1 [facility] azole-trime 3-25 tablet by ity of thoprim 00:00: mouth 2 [place] 800-160 mg 00 (two) Medical per tablet times Branch daily. sulfamethox 2020-0 Yes [id number] 1{tbl} Take 1 [facility] azole-trime 3-25 tablet by ity of thoprim 00:00: mouth 2 [place] 800-160 mg 00 (two) Medical per tablet times Branch daily. sulfamethox 2020-0 Yes [id number] 1{tbl} Take 1 [facility] azole-trime 3-25 tablet by ity of thoprim 00:00: mouth 2 [place] 800-160 mg 00 (two) Medical per tablet times Branch daily. sulfamethox 2020-0 Yes [id number] 1{tbl} Take 1 [facility] azole-trime 3-25 tablet by ity of thoprim 00:00: mouth 2 [place] 800-160 mg 00 (two) Medical per tablet times Branch daily. sulfamethox 2020-0 Yes [id number] 1{tbl} Take 1 [facility] azole-trime 3-25 tablet by ity of thoprim 00:00: mouth 2 [place] 800-160 mg 00 (two) Medical per tablet times Branch daily. sulfamethox 2020-0 Yes [id number] 1{tbl} Take 1 [facility] azole-trime 3-25 tablet by ity of thoprim 00:00: mouth 2 [place] 800-160 mg 00 (two) Medical per tablet times Branch daily. sulfamethox 2020-0 Yes [id number] 1{tbl} Take 1 [facility] azole-trime 3-25 tablet by ity of thoprim 00:00: mouth 2 [place] 800-160 mg 00 (two) Medical per tablet times Branch daily. sulfamethox 2020-0 Yes [id number] 1{tbl} Take 1 [facility] azole-trime 3-25 tablet by ity of thoprim 00:00: mouth 2 [place] 800-160 mg 00 (two) Medical per tablet times Branch daily. sulfamethox 2020-0 Yes [id number] 1{tbl} Take 1 [facility] azole-trime 3-25 tablet by ity of thoprim 00:00: mouth 2 [place] 800-160 mg 00 (two) Medical per tablet times Branch daily. sulfamethox 2020-0 Yes [id number] 1{tbl} Take 1 [facility] azole-trime 3-25 tablet by ity of thoprim 00:00: mouth 2 [place] 800-160 mg 00 (two) Medical per tablet times Branch daily. sulfamethox 2020-0 Yes [id number] 1{tbl} Take 1 [facility] azole-trime 3-25 tablet by ity of thoprim 00:00: mouth 2 [place] 800-160 mg 00 (two) Medical per tablet times Branch daily. sulfamethox 2020-0 Yes [id number] 1{tbl} Take 1 [facility] azole-trime 3-25 tablet by ity of thoprim 00:00: mouth 2 [place] 800-160 mg 00 (two) Medical per tablet times Branch daily. sulfamethox 2020-0 Yes [id number] 1{tbl} Take 1 [facility] azole-trime 3-25 tablet by ity of thoprim 00:00: mouth 2 [place] 800-160 mg 00 (two) Medical per tablet times Branch daily. sulfamethox 2020-0 Yes [id number] 1{tbl} Take 1 [facility] azole-trime 3-25 tablet by ity of thoprim 00:00: mouth 2 [place] 800-160 mg 00 (two) Medical per tablet times Branch daily. sulfamethox 2020-0 Yes [id number] 1{tbl} Take 1 [facility] azole-trime 3-25 tablet by ity of thoprim 00:00: mouth 2 [place] 800-160 mg 00 (two) Medical per tablet times Branch daily. sulfamethox 2020-0 Yes [id number] 1{tbl} Take 1 [facility] azole-trime 3-25 tablet by ity of thoprim 00:00: mouth 2 [place] 800-160 mg 00 (two) Medical per tablet times Branch daily. sulfamethox 2020-0 Yes [id number] 1{tbl} Take 1 [facility] azole-trime 3-25 tablet by ity of thoprim 00:00: mouth 2 [place] 800-160 mg 00 (two) Medical per tablet times Branch daily. sulfamethox 2020-0 Yes [id number] 1{tbl} Take 1 [facility] azole-trime 3-25 tablet by ity of thoprim 00:00: mouth 2 [place] 800-160 mg 00 (two) Medical per tablet times Branch daily. sulfamethox 2020-0 Yes [id number] 1{tbl} Take 1 [facility] azole-trime 3-25 tablet by ity of thoprim 00:00: mouth 2 [place] 800-160 mg 00 (two) Medical per tablet times Branch daily. sulfamethox 2020-0 Yes [id number] 1{tbl} Take 1 [facility] azole-trime 3-25 tablet by ity of thoprim 00:00: mouth 2 [place] 800-160 mg 00 (two) Medical per tablet times Branch daily. sulfamethox 2020-0 Yes [id number] 1{tbl} Take 1 [facility] azole-trime 3-25 tablet by ity of thoprim 00:00: mouth 2 [place] 800-160 mg 00 (two) Medical per tablet times Branch daily. sulfamethox 2020-0 Yes [id number] 1{tbl} Take 1 [facility] azole-trime 3-25 tablet by ity of thoprim 00:00: mouth 2 [place] 800-160 mg 00 (two) Medical per tablet times Branch daily. sulfamethox 2020-0 Yes [id number] 1{tbl} Take 1 [facility] azole-trime 3-25 tablet by ity of thoprim 00:00: mouth 2 [place] 800-160 mg 00 (two) Medical per tablet times Branch daily. sulfamethox 2020-0 Yes [id number] 1{tbl} Take 1 [facility] azole-trime 3-25 tablet by ity of thoprim 00:00: mouth 2 [place] 800-160 mg 00 (two) Medical per tablet times Branch daily. sulfamethox 2020-0 Yes [id number] 1{tbl} Take 1 [facility] azole-trime 3-25 tablet by ity of thoprim 00:00: mouth 2 [place] 800-160 mg 00 (two) Medical per tablet times Branch daily. sulfamethox 2020-0 Yes [id number] 1{tbl} Take 1 [facility] azole-trime 3-25 tablet by ity of thoprim 00:00: mouth 2 [place] 800-160 mg 00 (two) Medical per tablet times Branch daily. sulfamethox 2020-0 Yes [id number] 1{tbl} Take 1 [facility] azole-trime 3-25 tablet by ity of thoprim 00:00: mouth 2 [place] 800-160 mg 00 (two) Medical per tablet times Branch daily. sulfamethox 2020-0 Yes [id number] 1{tbl} Take 1 [facility] azole-trime 3-25 tablet by ity of thoprim 00:00: mouth 2 [place] 800-160 mg 00 (two) Medical per tablet times Branch daily. sulfamethox 2020-0 Yes [id number] 1{tbl} Take 1 [facility] azole-trime 3-25 tablet by ity of thoprim 00:00: mouth 2 [place] 800-160 mg 00 (two) Medical per tablet times Branch daily. sulfamethox 2020-0 Yes [id number] 1{tbl} Take 1 [facility] azole-trime 3-25 tablet by ity of thoprim 00:00: mouth 2 [place] 800-160 mg 00 (two) Medical per tablet times Branch daily. sulfamethox 2020-0 Yes [id number] 1{tbl} Take 1 [facility] azole-trime 3-25 tablet by ity of thoprim 00:00: mouth 2 [place] 800-160 mg 00 (two) Medical per tablet times Branch daily. sulfamethox 2020-0 Yes [id number] 1{tbl} Take 1 [facility] azole-trime 3-25 tablet by ity of thoprim 00:00: mouth 2 [place] 800-160 mg 00 (two) Medical per tablet times Branch daily. sulfamethox 2020-0 Yes [id number] 1{tbl} Take 1 [facility] azole-trime 3-25 tablet by ity of thoprim 00:00: mouth 2 [place] 800-160 mg 00 (two) Medical per tablet times Branch daily. sulfamethox 2020-0 Yes [id number] 1{tbl} Take 1 [facility] azole-trime 3-25 tablet by ity of thoprim 00:00: mouth 2 [place] 800-160 mg 00 (two) Medical per tablet times Branch daily. sulfamethox 2020-0 Yes [id number] 1{tbl} Take 1 [facility] azole-trime 3-25 tablet by ity of thoprim 00:00: mouth 2 [place] 800-160 mg 00 (two) Medical per tablet times Branch daily. sulfamethox 2020-0 Yes [id number] 1{tbl} Take 1 [facility] azole-trime 3-25 tablet by ity of thoprim 00:00: mouth 2 [place] 800-160 mg 00 (two) Medical per tablet times Branch daily. sulfamethox 2020-0 Yes [id number] 1{tbl} Take 1 [facility] azole-trime 3-25 tablet by ity of thoprim 00:00: mouth 2 [place] 800-160 mg 00 (two) Medical per tablet times Branch daily. sulfamethox 2020-0 Yes [id number] 1{tbl} Take 1 [facility] azole-trime 3-25 tablet by ity of thoprim 00:00: mouth 2 [place] 800-160 mg 00 (two) Medical per tablet times Branch daily. sulfamethox 2020-0 Yes [id number] 1{tbl} Take 1 [facility] azole-trime 3-25 tablet by ity of thoprim 00:00: mouth 2 [place] 800-160 mg 00 (two) Medical per tablet times Branch daily. sulfamethox 2020-0 Yes [id number] 1{tbl} Take 1 [facility] azole-trime 3-25 tablet by ity of thoprim 00:00: mouth 2 [place] 800-160 mg 00 (two) Medical per tablet times Branch daily. sulfamethox 2020-0 Yes [id number] 1{tbl} Take 1 [facility] azole-trime 3-25 tablet by ity of thoprim 00:00: mouth 2 [place] 800-160 mg 00 (two) Medical per tablet times Branch daily. sulfamethox 2020-0 Yes [id number] 1{tbl} Take 1 [facility] azole-trime 3-25 tablet by ity of thoprim 00:00: mouth 2 [place] 800-160 mg 00 (two) Medical per tablet times Branch daily. sulfamethox 2020-0 Yes [id number] 1{tbl} Take 1 [facility] azole-trime 3-25 tablet by ity of thoprim 00:00: mouth 2 [place] 800-160 mg 00 (two) Medical per tablet times Branch daily. sulfamethox 2020-0 Yes [id number] 1{tbl} Take 1 [facility] azole-trime 3-25 tablet by ity of thoprim 00:00: mouth 2 [place] 800-160 mg 00 (two) Medical per tablet times Branch daily. sulfamethox 2020-0 Yes [id number] 1{tbl} Take 1 [facility] azole-trime 3-25 tablet by ity of thoprim 00:00: mouth 2 [place] 800-160 mg 00 (two) Medical per tablet times Branch daily. sulfamethox 2020-0 Yes [id number] 1{tbl} Take 1 [facility] azole-trime 3-25 tablet by ity of thoprim 00:00: mouth 2 [place] 800-160 mg 00 (two) Medical per tablet times Branch daily. sulfamethox 2020-0 Yes [id number] 1{tbl} Take 1 [facility] azole-trime 3-25 tablet by ity of thoprim 00:00: mouth 2 [place] 800-160 mg 00 (two) Medical per tablet times Branch daily. carvediloL 2020-0 Yes 25mg Take 25 mg [facility] n[facility] 25 mg 3-07 by mouth 2 ity of tablet 01:16: (two) [place] 39 times Medical daily with Branch meals. proMETHazin 2020-0 Yes 12.5mg Take 12.5 [facility] e 25 mg 3-07 mg by ity of tablet 01:16: mouth 3 [place] 39 (three) Medical times Branch daily as needed for Nausea and Vomiting (N/V). insulin 2020-0 Yes inject [facility] aspart 3-07 under the ity of U-100 01:16: skin. [place] (NOVOLOG 39 Medical FLEXPEN Branch U-100 INSULIN) 100 unit/mL (3 mL) injection carvediloL 2020-0 Yes 25mg Take 25 mg [facility] nivers 25 mg 3-07 by mouth 2 ity of tablet 01:16: (two) [place] 39 times Medical daily with Branch meals. proMETHazin 2020-0 Yes 12.5mg Take 12.5 [facility] e 25 mg 3-07 mg by ity of tablet 01:16: mouth 3 [place] 39 (three) Medical times Branch daily as needed for Nausea and Vomiting (N/V). insulin 2020-0 Yes inject [facility] aspart 3-07 under the ity of U-100 01:16: skin. [place] (NOVOLOG 39 Medical FLEXPEN Branch U-100 INSULIN) 100 unit/mL (3 mL) injection carvediloL 2020-0 Yes 25mg Take 25 mg [facility] nivers 25 mg 3-07 by mouth 2 ity of tablet 01:16: (two) [place] 39 times Medical daily with Branch meals. proMETHazin 2020-0 Yes 12.5mg Take 12.5 [facility] e 25 mg 3-07 mg by ity of tablet 01:16: mouth 3 [place] 39 (three) Medical times Branch daily as needed for Nausea and Vomiting (N/V). insulin 2020-0 Yes inject [facility] aspart 3-07 under the ity of U-100 01:16: skin. [place] (NOVOLOG 39 Medical FLEXPEN Branch U-100 INSULIN) 100 unit/mL (3 mL) injection carvediloL 2020-0 Yes 25mg Take 25 mg [facility] nivers 25 mg 3-07 by mouth 2 ity of tablet 01:16: (two) [place] 39 times Medical daily with Branch meals. proMETHazin 2020-0 Yes 12.5mg Take 12.5 [facility] e 25 mg 3-07 mg by ity of tablet 01:16: mouth 3 [place] [address] (three) Medical times Branch daily as needed for Nausea and Vomiting (N/V). insulin 2020-0 Yes inject [facility] aspart 3-07 under the ity of U-100 01:16: skin. [place] (NOVOLOG 39 Medical FLEXPEN Branch U-100 INSULIN) 100 unit/mL (3 mL) injection carvediloL 2020-0 Yes 25mg Take 25 mg [facility] nivers 25 mg 3-07 by mouth 2 ity of tablet 01:16: (two) [place] 39 times Medical daily with Branch meals. proMETHazin 2020-0 Yes 12.5mg Take 12.5 [facility] e 25 mg 3-07 mg by ity of tablet 01:16: mouth 3 [place] 39 (three) Medical times Branch daily as needed for Nausea and Vomiting (N/V). insulin 2020-0 Yes inject [facility] aspart 3-07 under the ity of U-100 01:16: skin. [place] (NOVOLOG 39 Medical FLEXPEN Branch U-100 INSULIN) 100 unit/mL (3 mL) injection carvediloL 2020-0 Yes 25mg Take 25 mg [facility] nivers 25 mg 3-07 by mouth 2 ity of tablet 01:16: (two) [place] 39 times Medical daily with Branch meals. proMETHazin 2020-0 Yes 12.5mg Take 12.5 [facility] e 25 mg 3-07 mg by ity of tablet 01:16: mouth 3 [place] 39 (three) Medical times Branch daily as needed for Nausea and Vomiting (N/V). insulin 2020-0 Yes inject [facility] aspart 3-07 under the ity of U-100 01:16: skin. [place] (NOVOLOG 39 Medical FLEXPEN Branch U-100 INSULIN) 100 unit/mL (3 mL) injection carvediloL 2020-0 Yes 25mg Take 25 mg [facility] nivers 25 mg 3-07 by mouth 2 ity of tablet 01:16: (two) [place] 39 times Medical daily with Branch meals. proMETHazin 2020-0 Yes 12.5mg Take 12.5 [facility] e 25 mg 3-07 mg by ity of tablet 01:16: mouth 3 [place] 39 (three) Medical times Branch daily as needed for Nausea and Vomiting (N/V). insulin 2020-0 Yes inject [facility] aspart 3-07 under the ity of U-100 01:16: skin. [place] (NOVOLOG 39 Medical FLEXPEN Branch U-100 INSULIN) 100 unit/mL (3 mL) injection carvediloL 2020-0 Yes 25mg Take 25 mg [facility] nivers 25 mg 3-07 by mouth 2 ity of tablet 01:16: (two) [place] 39 times Medical daily with Branch meals. proMETHazin 2020-0 Yes 12.5mg Take 12.5 [facility] e 25 mg 3-07 mg by ity of tablet 01:16: mouth 3 [place] [address] (three) Medical times Branch daily as needed for Nausea and Vomiting (N/V). insulin 2020-0 Yes inject [facility] aspart 3-07 under the ity of U-100 01:16: skin. [place] (NOVOLOG 39 Medical FLEXPEN Branch U-100 INSULIN) 100 unit/mL (3 mL) injection carvediloL 2020-0 Yes 25mg Take 25 mg [facility] nivers 25 mg 3-07 by mouth 2 ity of tablet 01:16: (two) [place] 39 times Medical daily with Branch meals. proMETHazin 2020-0 Yes 12.5mg Take 12.5 [facility] e 25 mg 3-07 mg by ity of tablet 01:16: mouth 3 [place] [address] (three) Medical times Branch daily as needed for Nausea and Vomiting (N/V). insulin 2020-0 Yes inject [facility] aspart 3-07 under the ity of U-100 01:16: skin. [place] (NOVOLOG 39 Medical FLEXPEN Branch U-100 INSULIN) 100 unit/mL (3 mL) injection carvediloL 2020-0 Yes 25mg Take 25 mg [facility] nivers 25 mg 3-07 by mouth 2 ity of tablet 01:16: (two) [place] 39 times Medical daily with Branch meals. proMETHazin 2020-0 Yes 12.5mg Take 12.5 [facility] e 25 mg 3-07 mg by ity of tablet 01:16: mouth 3 [place] 39 (three) Medical times Branch daily as needed for Nausea and Vomiting (N/V). insulin 2020-0 Yes inject [facility] aspart 3-07 under the ity of U-100 01:16: skin. [place] (NOVOLOG 39 Medical FLEXPEN Branch U-100 INSULIN) 100 unit/mL (3 mL) injection carvediloL 2020-0 Yes 25mg Take 25 mg [facility] nivers 25 mg 3-07 by mouth 2 ity of tablet 01:16: (two) [place] 39 times Medical daily with Branch meals. proMETHazin 2020-0 Yes 12.5mg Take 12.5 [facility] e 25 mg 3-07 mg by ity of tablet 01:16: mouth 3 [place] [address] (three) Medical times Branch daily as needed for Nausea and Vomiting (N/V). insulin 2020-0 Yes inject [facility] aspart 3-07 under the ity of U-100 01:16: skin. [place] (NOVOLOG 39 Medical FLEXPEN Branch U-100 INSULIN) 100 unit/mL (3 mL) injection carvediloL 2020-0 Yes 25mg Take 25 mg [facility] nivers 25 mg 3-07 by mouth 2 ity of tablet 01:16: (two) [place] 39 times Medical daily with Branch meals. proMETHazin 2020-0 Yes 12.5mg Take 12.5 [facility] e 25 mg 3-07 mg by ity of tablet 01:16: mouth 3 [place] [address] (three) Medical times Branch daily as needed for Nausea and Vomiting (N/V). insulin 2020-0 Yes inject [facility] aspart 3-07 under the ity of U-100 01:16: skin. [place] (NOVOLOG 39 Medical FLEXPEN Branch U-100 INSULIN) 100 unit/mL (3 mL) injection carvediloL 2020-0 Yes 25mg Take 25 mg [facility] nivers 25 mg 3-07 by mouth 2 ity of tablet 01:16: (two) [place] 39 times Medical daily with Branch meals. proMETHazin 2020-0 Yes 12.5mg Take 12.5 [facility] e 25 mg 3-07 mg by ity of tablet 01:16: mouth 3 [place] 39 (three) Medical times Branch daily as needed for Nausea and Vomiting (N/V). insulin 2020-0 Yes inject [facility] aspart 3-07 under the ity of U-100 01:16: skin. [place] (NOVOLOG 39 Medical FLEXPEN Branch U-100 INSULIN) 100 unit/mL (3 mL) injection carvediloL 2020-0 Yes 25mg Take 25 mg [facility] nivers 25 mg 3-07 by mouth 2 ity of tablet 01:16: (two) [place] 39 times Medical daily with Branch meals. proMETHazin 2020-0 Yes 12.5mg Take 12.5 [facility] e 25 mg 3-07 mg by ity of tablet 01:16: mouth 3 [place] [address] (three) Medical times Branch daily as needed for Nausea and Vomiting (N/V). insulin 2020-0 Yes inject [facility] aspart 3-07 under the ity of U-100 01:16: skin. [place] (NOVOLOG 39 Medical FLEXPEN Branch U-100 INSULIN) 100 unit/mL (3 mL) injection carvediloL 2020-0 Yes 25mg Take 25 mg [facility] nivers 25 mg 3-07 by mouth 2 ity of tablet 01:16: (two) [place] 39 times Medical daily with Branch meals. proMETHazin 2020-0 Yes 12.5mg Take 12.5 [facility] e 25 mg 3-07 mg by ity of tablet 01:16: mouth 3 [place] [address] (three) Medical times Branch daily as needed for Nausea and Vomiting (N/V). insulin 2020-0 Yes inject [facility] aspart 3-07 under the ity of U-100 01:16: skin. [place] (NOVOLOG 39 Medical FLEXPEN Branch U-100 INSULIN) 100 unit/mL (3 mL) injection carvediloL 2020-0 Yes 25mg Take 25 mg [facility] nivers 25 mg 3-07 by mouth 2 ity of tablet 01:16: (two) [place] 39 times Medical daily with Branch meals. proMETHazin 2020-0 Yes 12.5mg Take 12.5 [facility] e 25 mg 3-07 mg by ity of tablet 01:16: mouth 3 [place] [address] (three) Medical times Branch daily as needed for Nausea and Vomiting (N/V). insulin 2020-0 Yes inject [facility] aspart 3-07 under the ity of U-100 01:16: skin. [place] (NOVOLOG 39 Medical FLEXPEN Branch U-100 INSULIN) 100 unit/mL (3 mL) injection carvediloL 2020-0 Yes 25mg Take 25 mg [facility] nivers 25 mg 3-07 by mouth 2 ity of tablet 01:16: (two) [place] 39 times Medical daily with Branch meals. proMETHazin 2020-0 Yes 12.5mg Take 12.5 [facility] e 25 mg 3-07 mg by ity of tablet 01:16: mouth 3 [place] 39 (three) Medical times Branch daily as needed for Nausea and Vomiting (N/V). insulin 2020-0 Yes inject [facility] aspart 3-07 under the ity of U-100 01:16: skin. [place] (NOVOLOG 39 Medical FLEXPEN Branch U-100 INSULIN) 100 unit/mL (3 mL) injection carvediloL 2020-0 Yes 25mg Take 25 mg [facility] nivers 25 mg 3-07 by mouth 2 ity of tablet 01:16: (two) [place] 39 times Medical daily with Branch meals. proMETHazin 2020-0 Yes 12.5mg Take 12.5 [facility] e 25 mg 3-07 mg by ity of tablet 01:16: mouth 3 [place] 39 (three) Medical times Branch daily as needed for Nausea and Vomiting (N/V). insulin 2020-0 Yes inject [facility] aspart 3-07 under the ity of U-100 01:16: skin. [place] (NOVOLOG 39 Medical FLEXPEN Branch U-100 INSULIN) 100 unit/mL (3 mL) injection carvediloL 2020-0 Yes 25mg Take 25 mg [facility] nivers 25 mg 3-07 by mouth 2 ity of tablet 01:16: (two) [place] 39 times Medical daily with Branch meals. proMETHazin 2020-0 Yes 12.5mg Take 12.5 [facility] e 25 mg 3-07 mg by ity of tablet 01:16: mouth 3 [place] 39 (three) Medical times Branch daily as needed for Nausea and Vomiting (N/V). insulin 2020-0 Yes inject [facility] aspart 3-07 under the ity of U-100 01:16: skin. [place] (NOVOLOG 39 Medical FLEXPEN Branch U-100 INSULIN) 100 unit/mL (3 mL) injection carvediloL 2020-0 Yes 25mg Take 25 mg [facility] nivers 25 mg 3-07 by mouth 2 ity of tablet 01:16: (two) [place] 39 times Medical daily with Branch meals. proMETHazin 2020-0 Yes 12.5mg Take 12.5 [facility] e 25 mg 3-07 mg by ity of tablet 01:16: mouth 3 [place] 39 (three) Medical times Branch daily as needed for Nausea and Vomiting (N/V). insulin 2020-0 Yes inject [facility] aspart 3-07 under the ity of U-100 01:16: skin. [place] (NOVOLOG 39 Medical FLEXPEN Branch U-100 INSULIN) 100 unit/mL (3 mL) injection carvediloL 2020-0 Yes 25mg Take 25 mg [facility] nivers 25 mg 3-07 by mouth 2 ity of tablet 01:16: (two) [place] 39 times Medical daily with Branch meals. proMETHazin 2020-0 Yes 12.5mg Take 12.5 [facility] e 25 mg 3-07 mg by ity of tablet 01:16: mouth 3 [place] [address] (three) Medical times Branch daily as needed for Nausea and Vomiting (N/V). insulin 2020-0 Yes inject [facility] aspart 3-07 under the ity of U-100 01:16: skin. [place] [facility] FLEXPEN Branch U-100 INSULIN) 100 unit/mL (3 mL) injection carvediloL 2020-0 Yes 25mg Take 25 mg [facility] nivers 25 mg 3-07 by mouth 2 ity of tablet 01:16: (two) [place] 39 times Medical daily with Branch meals. proMETHazin 2020-0 Yes 12.5mg Take 12.5 [facility] e 25 mg 3-07 mg by ity of tablet 01:16: mouth 3 [place] [address] (three) Medical times Branch daily as needed for Nausea and Vomiting (N/V). insulin 2020-0 Yes inject [facility] aspart 3-07 under the ity of U-100 01:16: skin. [place] (NOVOLOG 39 Medical FLEXPEN Branch U-100 INSULIN) 100 unit/mL (3 mL) injection carvediloL 2020-0 Yes 25mg Take 25 mg [facility] nivers 25 mg 3-07 by mouth 2 ity of tablet 01:16: (two) [place] 39 times Medical daily with Branch meals. proMETHazin 2020-0 Yes 12.5mg Take 12.5 [facility] e 25 mg 3-07 mg by ity of tablet 01:16: mouth 3 [place] 39 (three) Medical times Branch daily as needed for Nausea and Vomiting (N/V). insulin 2020-0 Yes inject [facility] aspart 3-07 under the ity of U-100 01:16: skin. [place] (NOVOLOG 39 Medical FLEXPEN Branch U-100 INSULIN) 100 unit/mL (3 mL) injection carvediloL 2020-0 Yes 25mg Take 25 mg [facility] nivers 25 mg 3-07 by mouth 2 ity of tablet 01:16: (two) [place] 39 times Medical daily with Branch meals. proMETHazin 2020-0 Yes 12.5mg Take 12.5 [facility] e 25 mg 3-07 mg by ity of tablet 01:16: mouth 3 [place] 39 (three) Medical times Branch daily as needed for Nausea and Vomiting (N/V). insulin 2020-0 Yes inject [facility] aspart 3-07 under the ity of U-100 01:16: skin. [place] (NOVOLOG 39 Medical FLEXPEN Branch U-100 INSULIN) 100 unit/mL (3 mL) injection carvediloL 2020-0 Yes 25mg Take 25 mg [facility] nivers 25 mg 3-07 by mouth 2 ity of tablet 01:16: (two) [place] 39 times Medical daily with Branch meals. proMETHazin 2020-0 Yes 12.5mg Take 12.5 [facility] e 25 mg 3-07 mg by ity of tablet 01:16: mouth 3 [place] [address] (three) Medical times Branch daily as needed for Nausea and Vomiting (N/V). insulin 2020-0 Yes inject [facility] aspart 3-07 under the ity of U-100 01:16: skin. [place] (NOVOLOG 39 Medical FLEXPEN Branch U-100 INSULIN) 100 unit/mL (3 mL) injection carvediloL 2020-0 Yes 25mg Take 25 mg [facility] nivers 25 mg 3-07 by mouth 2 ity of tablet 01:16: (two) [place] 39 times Medical daily with Branch meals. proMETHazin 2020-0 Yes 12.5mg Take 12.5 [facility] e 25 mg 3-07 mg by ity of tablet 01:16: mouth 3 [place] [address] (three) Medical times Branch daily as needed for Nausea and Vomiting (N/V). insulin 2020-0 Yes inject [facility] aspart 3-07 under the ity of U-100 01:16: skin. [place] (NOVOLOG 39 Medical FLEXPEN Branch U-100 INSULIN) 100 unit/mL (3 mL) injection carvediloL 2020-0 Yes 25mg Take 25 mg [facility] nivers 25 mg 3-07 by mouth 2 ity of tablet 01:16: (two) [place] 39 times Medical daily with Branch meals. proMETHazin 2020-0 Yes 12.5mg Take 12.5 [facility] e 25 mg 3-07 mg by ity of tablet 01:16: mouth 3 [place] 39 (three) Medical times Branch daily as needed for Nausea and Vomiting (N/V). insulin 2020-0 Yes inject [facility] aspart 3-07 under the ity of U-100 01:16: skin. [place] (NOVOLOG 39 Medical FLEXPEN Branch U-100 INSULIN) 100 unit/mL (3 mL) injection carvediloL 2020-0 Yes 25mg Take 25 mg U nivers 25 mg 3-07 by mouth 2 ity of tablet 01:16: (two) [place] 39 times Medical daily with Branch meals. proMETHazin 2020-0 Yes 12.5mg Take 12.5 [facility] e 25 mg 3-07 mg by ity of tablet 01:16: mouth 3 [place] [address] (three) Medical times Branch daily as needed for Nausea and Vomiting (N/V). insulin 2020-0 Yes inject [facility] aspart 3-07 under the ity of U-100 01:16: skin. [place] (NOVOLOG 39 Medical FLEXPEN Branch U-100 INSULIN) 100 unit/mL (3 mL) injection carvediloL 2020-0 Yes 25mg Take 25 mg U nivers 25 mg 3-07 by mouth 2 ity of tablet 01:16: (two) [place] 39 times Medical daily with Branch meals. proMETHazin 2020-0 Yes 12.5mg Take 12.5 [facility] e 25 mg 3-07 mg by ity of tablet 01:16: mouth 3 [place] [address] (three) Medical times Branch daily as needed for Nausea and Vomiting (N/V). insulin 2020-0 Yes inject [facility] aspart 3-07 under the ity of U-100 01:16: skin. [place] (NOVOLOG 39 Medical FLEXPEN Branch U-100 INSULIN) 100 unit/mL (3 mL) injection carvediloL 2020-0 Yes 25mg Take 25 mg [facility] nivers 25 mg 3-07 by mouth 2 ity of tablet 01:16: (two) [place] 39 times Medical daily with Branch meals. proMETHazin 2020-0 Yes 12.5mg Take 12.5 [facility] 25 mg 3-07 mg by ity of tablet 01:16: mouth 3 [place] [address] (three) Medical times Branch daily as needed for Nausea and Vomiting (N/V). insulin 2020-0 Yes inject [facility] aspart 3-07 under the ity of U-100 01:16: skin. [place] (NOVOLOG 39 Medical FLEXPEN Branch U-100 INSULIN) 100 unit/mL (3 mL) injection carvediloL 2020-0 Yes 25mg Take 25 mg [facility] nivers 25 mg 3-07 by mouth 2 ity of tablet 01:16: (two) [place] 39 times Medical daily with Branch meals. proMETHazin 2020-0 Yes 12.5mg Take 12.5 [facility] e 25 mg 3-07 mg by ity of tablet 01:16: mouth 3 [place] [address] (three) Medical times Branch daily as needed for Nausea and Vomiting (N/V). insulin 2020-0 Yes inject [facility] aspart 3-07 under the ity of U-100 01:16: skin. [place] (NOVOLOG 39 Medical FLEXPEN Branch U-100 INSULIN) 100 unit/mL (3 mL) injection carvediloL 2020-0 Yes 25mg Take 25 mg [facility] nivers 25 mg 3-07 by mouth 2 ity of tablet 01:16: (two) [place] 39 times Medical daily with Branch meals. proMETHazin 2020-0 Yes 12.5mg Take 12.5 [facility] e 25 mg 3-07 mg by ity of tablet 01:16: mouth 3 [place] [address] (three) Medical times Branch daily as needed for Nausea and Vomiting (N/V). insulin 2020-0 Yes inject [facility] aspart 3-07 under the ity of U-100 01:16: skin. [place] (NOVOLOG 39 Medical FLEXPEN Branch U-100 INSULIN) 100 unit/mL (3 mL) injection carvediloL 2020-0 Yes 25mg Take 25 mg [facility] nivers 25 mg 3-07 by mouth 2 ity of tablet 01:16: (two) [place] 39 times Medical daily with Branch meals. proMETHazin 2020-0 Yes 12.5mg Take 12.5 [facility] 25 mg 3-07 mg by ity of tablet 01:16: mouth 3 [place] [address] (three) Medical times Branch daily as needed for Nausea and Vomiting (N/V). insulin 2020-0 Yes inject [facility] aspart 3-07 under the ity of U-100 01:16: skin. [place] (NOVOLOG 39 Medical FLEXPEN Branch U-100 INSULIN) 100 unit/mL (3 mL) injection carvediloL 2020-0 Yes 25mg Take 25 mg [facility] nivers 25 mg 3-07 by mouth 2 ity of tablet 01:16: (two) [place] 39 times Medical daily with Branch meals. proMETHazin 2020-0 Yes 12.5mg Take 12.5 [facility] e 25 mg 3-07 mg by ity of tablet 01:16: mouth 3 [place] 39 (three) Medical times Branch daily as needed for Nausea and Vomiting (N/V). insulin 2020-0 Yes inject [facility] aspart 3-07 under the ity of U-100 01:16: skin. [place] (NOVOLOG 39 Medical FLEXPEN Branch U-100 INSULIN) 100 unit/mL (3 mL) injection carvediloL 2020-0 Yes 25mg Take 25 mg [facility] nivers 25 mg 3-07 by mouth 2 ity of tablet 01:16: (two) [place] 39 times Medical daily with Branch meals. proMETHazin 2020-0 Yes 12.5mg Take 12.5 [facility] 25 mg 3-07 mg by ity of tablet 01:16: mouth 3 [place] 39 (three) Medical times Branch daily as needed for Nausea and Vomiting (N/V). insulin 2020-0 Yes inject [facility] aspart 3-07 under the ity of U-100 01:16: skin. [place] (NOVOLOG 39 Medical FLEXPEN Branch U-100 INSULIN) 100 unit/mL (3 mL) injection carvediloL 2020-0 Yes 25mg Take 25 mg [facility] nivers 25 mg 3-07 by mouth 2 ity of tablet 01:16: (two) [place] 39 times Medical daily with Branch meals. proMETHazin 2020-0 Yes 12.5mg Take 12.5 [facility] e 25 mg 3-07 mg by ity of tablet 01:16: mouth 3 [place] 39 (three) Medical times Branch daily as needed for Nausea and Vomiting (N/V). insulin 2020-0 Yes inject [facility] aspart 3-07 under the ity of U-100 01:16: skin. [place] (NOVOLOG 39 Medical FLEXPEN Branch U-100 INSULIN) 100 unit/mL (3 mL) injection carvediloL 2020-0 Yes 25mg Take 25 mg [facility] nivers 25 mg 3-07 by mouth 2 ity of tablet 01:16: (two) [place] 39 times Medical daily with Branch meals. proMETHazin 2020-0 Yes 12.5mg Take 12.5 [facility] 25 mg 3-07 mg by ity of tablet 01:16: mouth 3 [place] 39 (three) Medical times Branch daily as needed for Nausea and Vomiting (N/V). insulin 2020-0 Yes inject [facility] aspart 3-07 under the ity of U-100 01:16: skin. [place] (NOVOLOG 39 Medical FLEXPEN Branch U-100 INSULIN) 100 unit/mL (3 mL) injection carvediloL 2020-0 Yes 25mg Take 25 mg U nivers 25 mg 3-07 by mouth 2 ity of tablet 01:16: (two) [place] 39 times Medical daily with Branch meals. proMETHazin 2020-0 Yes 12.5mg Take 12.5 [facility] 25 mg 3-07 mg by ity of tablet 01:16: mouth 3 [place] [address] (three) Medical times Branch daily as needed for Nausea and Vomiting (N/V). insulin 2020-0 Yes inject [facility] aspart 3-07 under the ity of U-100 01:16: skin. [place] [facility] F[facility] U-100 INSULIN) 100 unit/mL (3 mL) injection carvediloL 2020-0 Yes 25mg Take 25 mg U nivers 25 mg 3-07 by mouth 2 ity of tablet 01:16: (two) [place] 39 times Medical daily with Branch meals. proMETHazin 2020-0 Yes 12.5mg Take 12.5 [facility] e 25 mg 3-07 mg by ity of tablet 01:16: mouth 3 [place] [address] (three) Medical times Branch daily as needed for Nausea and Vomiting (N/V). insulin 2020-0 Yes inject [facility] aspart 3-07 under the ity of U-100 01:16: skin. [place] (NOVOLOG 39 Medical FLEXPEN Branch U-100 INSULIN) 100 unit/mL (3 mL) injection carvediloL 2020-0 Yes 25mg Take 25 mg [facility] nivers 25 mg 3-07 by mouth 2 ity of tablet 01:16: (two) [place] 39 times Medical daily with Branch meals. proMETHazin 2020-0 Yes 12.5mg Take 12.5 [facility] e 25 mg 3-07 mg by ity of tablet 01:16: mouth 3 [place] 39 (three) Medical times Branch daily as needed for Nausea and Vomiting (N/V). insulin 2020-0 Yes inject [facility] aspart 3-07 under the ity of U-100 01:16: skin. [place] (NOVOLOG 39 Medical FLEXPEN Branch U-100 INSULIN) 100 unit/mL (3 mL) injection carvediloL 2020-0 Yes 25mg Take 25 mg [facility] nivers 25 mg 3-07 by mouth 2 ity of tablet 01:16: (two) [place] 39 times Medical daily with Branch meals. proMETHazin 2020-0 Yes 12.5mg Take 12.5 [facility] e 25 mg 3-07 mg by ity of tablet 01:16: mouth 3 [place] 39 (three) Medical times Branch daily as needed for Nausea and Vomiting (N/V). insulin 2020-0 Yes inject [facility] aspart 3-07 under the ity of U-100 01:16: skin. [place] (NOVOLOG 39 Medical FLEXPEN Branch U-100 INSULIN) 100 unit/mL (3 mL) injection carvediloL 2020-0 Yes 25mg Take 25 mg [facility] nivers 25 mg 3-07 by mouth 2 ity of tablet 01:16: (two) [place] 39 times Medical daily with Branch meals. proMETHazin 2020-0 Yes 12.5mg Take 12.5 [facility] 25 mg 3-07 mg by ity of tablet 01:16: mouth 3 [place] [address] (three) Medical times Branch daily as needed for Nausea and Vomiting (N/V). insulin 2020-0 Yes inject [facility] aspart 3-07 under the ity of U-100 01:16: skin. [place] (NOVOLOG 39 Medical FLEXPEN Branch U-100 INSULIN) 100 unit/mL (3 mL) injection carvediloL 2020-0 Yes 25mg Take 25 mg [facility] nivers 25 mg 3-07 by mouth 2 ity of tablet 01:16: (two) [place] 39 times Medical daily with Branch meals. proMETHazin 2020-0 Yes 12.5mg Take 12.5 [facility] 25 mg 3-07 mg by ity of tablet 01:16: mouth 3 [place] 39 (three) Medical times Branch daily as needed for Nausea and Vomiting (N/V). insulin 2020-0 Yes inject [facility] aspart 3-07 under the ity of U-100 01:16: skin. [place] (NOVOLOG 39 Medical FLEXPEN Branch U-100 INSULIN) 100 unit/mL (3 mL) injection carvediloL 2020-0 Yes 25mg Take 25 mg [facility] nivers 25 mg 3-07 by mouth 2 ity of tablet 01:16: (two) [place] 39 times Medical daily with Branch meals. proMETHazin 2020-0 Yes 12.5mg Take 12.5 [facility] 25 mg 3-07 mg by ity of tablet 01:16: mouth 3 [place] 39 (three) Medical times Branch daily as needed for Nausea and Vomiting (N/V). insulin 2020-0 Yes inject [facility] aspart 3-07 under the ity of U-100 01:16: skin. [place] (NOVOLOG 39 Medical FLEXPEN Branch U-100 INSULIN) 100 unit/mL (3 mL) injection carvediloL 2020-0 Yes 25mg Take 25 mg [facility] nivers 25 mg 3-07 by mouth 2 ity of tablet 01:16: (two) [place] 39 times Medical daily with Branch meals. proMETHazin 2020-0 Yes 12.5mg Take 12.5 [facility] 25 mg 3-07 mg by ity of tablet 01:16: mouth 3 [place] [address] (three) Medical times Branch daily as needed for Nausea and Vomiting (N/V). insulin 2020-0 Yes inject [facility] aspart 3-07 under the ity of U-100 01:16: skin. [place] (NOVOLOG 39 Medical FLEXPEN Branch U-100 INSULIN) 100 unit/mL (3 mL) injection carvediloL 2020-0 Yes 25mg Take 25 mg [facility] nivers 25 mg 3-07 by mouth 2 ity of tablet 01:16: (two) [place] [address] times Medical daily with Branch meals. proMETHazin 2020-0 Yes 12.5mg Take 12.5 [facility] 25 mg 3-07 mg by ity of tablet 01:16: mouth 3 [place] [address] (three) Medical times Branch daily as needed for Nausea and Vomiting (N/V). insulin 2020-0 Yes inject [facility] aspart 3-07 under the ity of U-100 01:16: skin. [place] (NOVOLOG 39 Medical FLEXPEN Branch U-100 INSULIN) 100 unit/mL (3 mL) injection carvediloL 2020-0 Yes 25mg Take 25 mg [facility] nivers 25 mg 3-07 by mouth 2 ity of tablet 01:16: (two) [place] 39 times Medical daily with Branch meals. proMETHazin 2020-0 Yes 12.5mg Take 12.5 [facility] 25 mg 3-07 mg by ity of tablet 01:16: mouth 3 [place] [address] (three) Medical times Branch daily as needed for Nausea and Vomiting (N/V). insulin 2020-0 Yes inject [facility] aspart 3-07 under the ity of U-100 01:16: skin. [place] (NOVOLOG 39 Medical FLEXPEN Branch U-100 INSULIN) 100 unit/mL (3 mL) injection carvediloL 2020-0 Yes 25mg Take 25 mg [facility] nivers 25 mg 3-07 by mouth 2 ity of tablet 01:16: (two) [place] 39 times Medical daily with Branch meals. proMETHazin 2020-0 Yes 12.5mg Take 12.5 [facility] e 25 mg 3-07 mg by ity of tablet 01:16: mouth 3 [place] 39 (three) Medical times Branch daily as needed for Nausea and Vomiting (N/V). insulin 2020-0 Yes inject [facility] aspart 3-07 under the ity of U-100 01:16: skin. [place] (NOVOLOG 39 Medical FLEXPEN Branch U-100 INSULIN) 100 unit/mL (3 mL) injection carvediloL 2020-0 Yes 25mg Take 25 mg [facility] nivers 25 mg 3-07 by mouth 2 ity of tablet 01:16: (two) [place] 39 times Medical daily with Branch meals. proMETHazin 2020-0 Yes 12.5mg Take 12.5 [facility] 25 mg 3-07 mg by ity of tablet 01:16: mouth 3 [place] [address] (three) Medical times Branch daily as needed for Nausea and Vomiting (N/V). insulin 2020-0 Yes inject [facility] aspart 3-07 under the ity of U-100 01:16: skin. [place] (NOVOLOG 39 Medical FLEXPEN Branch U-100 INSULIN) 100 unit/mL (3 mL) injection carvediloL 2020-0 Yes 25mg Take 25 mg [facility] nivers 25 mg 3-07 by mouth 2 ity of tablet 01:16: (two) [place] 39 times Medical daily with Branch meals. proMETHazin 2020-0 Yes 12.5mg Take 12.5 [facility] e 25 mg 3-07 mg by ity of tablet 01:16: mouth 3 [place] [address] (three) Medical times Branch daily as needed for Nausea and Vomiting (N/V). insulin 2020-0 Yes inject [facility] aspart 3-07 under the ity of U-100 01:16: skin. [place] (NOVOLOG 39 Medical FLEXPEN Branch U-100 INSULIN) 100 unit/mL (3 mL) injection carvediloL 2020-0 Yes 25mg Take 25 mg [facility] nivers 25 mg 3-07 by mouth 2 ity of tablet 01:16: (two) [place] 39 times Medical daily with Branch meals. proMETHazin 2020-0 Yes 12.5mg Take 12.5 [facility] e 25 mg 3-07 mg by ity of tablet 01:16: mouth 3 [place] 39 (three) Medical times Branch daily as needed for Nausea and Vomiting (N/V). insulin 2020-0 Yes inject [facility] aspart 3-07 under the ity of U-100 01:16: skin. [place] (NOVOLOG 39 Medical FLEXPEN Branch U-100 INSULIN) 100 unit/mL (3 mL) injection carvediloL 2020-0 Yes 25mg Take 25 mg [facility] nivers 25 mg 3-07 by mouth 2 ity of tablet 01:16: (two) [place] 39 times Medical daily with Branch meals. proMETHazin 2020-0 Yes 12.5mg Take 12.5 [facility] e 25 mg 3-07 mg by ity of tablet 01:16: mouth 3 [place] 39 (three) Medical times Branch daily as needed for Nausea and Vomiting (N/V). insulin 2020-0 Yes inject [facility] aspart 3-07 under the ity of U-100 01:16: skin. [place] (NOVOLOG 39 Medical FLEXPEN Branch U-100 INSULIN) 100 unit/mL (3 mL) injection carvediloL 2020-0 Yes 25mg Take 25 mg [facility] nivers 25 mg 3-07 by mouth 2 ity of tablet 01:16: (two) [place] 39 times Medical daily with Branch meals. proMETHazin 2020-0 Yes 12.5mg Take 12.5 [facility] e 25 mg 3-07 mg by ity of tablet 01:16: mouth 3 [place] 39 (three) Medical times Branch daily as needed for Nausea and Vomiting (N/V). insulin 2020-0 Yes inject [facility] aspart 3-07 under the ity of U-100 01:16: skin. [place] (NOVOLOG 39 Medical FLEXPEN Branch U-100 INSULIN) 100 unit/mL (3 mL) injection pregabalin 2020-0 2020- No 300mg Take 300 U nivers 300 mg 3-07 03-06 mg by ity of capsule 01:15: 00:00 mouth. [place] 02 :00 Medical Branch nitroglycer 2020-0 2020- No .3mg Place 0.3 [facility] in 0.3 mg 3-07 03-06 mg under ity o f sublingual 01:14: 00:00 the tongue [place] tablet 27 :00 every 5 Medical (five) Branch minutes as needed for Chest pain. losartan-hy 2019- No Take by Un osbaldo drochloroth 04-20 03-06 mouth. ity o f iazide 01:14: 00:00 [place] 100-25 mg 09 :00 Medical per tablet Branch insulin 2019-0 2020- No inject [facility] lispro, 04-20-06 under [...] 3-07 by mouth. ity of tablet 00:22: [place] 08 Medical Branch proMETHazin 2020-0 Yes 12.5mg Take 12.5 [facility] e 25 mg 3-07 mg by ity of tablet 00:22: mouth [place] 08 every 6 Medical (six) Branch hours as needed for Nausea and Vomiting (N/V). insulin 2020-0 Yes inject [facility] aspart 3-07 under the ity of U-100 00:22: skin. [place] (NOVOLOG 08 Medical FLEXPEN Branch U-100 INSULIN) [...] by ity of capsule 00:13: mouth 2 [place] 40 (two) Medical times Branch daily. gabapentin 2020-0 Yes 100mg Take 100 [facility] 100 mg 3-07 mg by ity of capsule 00:13: mouth 2 [place] 40 (two) Medical times Branch daily. gabapentin 2020-0 Yes 100mg Take 100 [facility] 100 mg 3-07 mg by ity of capsule 00:13: mouth 2 [place] 40 (two) Medical times Branch daily. gabapentin 2020-0 Yes 100mg Take 100 [facility] 100 mg 3-07 mg by ity of capsule 00:13: mouth 2 [place] 40 (two) Medical times Branch daily. gabapentin 2020-0 Yes 100mg Take 100 [facility] 100 mg 3-07 mg by ity of capsule 00:13: mouth 2 [place] 40 (two) Medical times Branch daily. gabapentin 2020-0 Yes 100mg Take 100 [facility] 100 mg 3-07 mg by ity of capsule 00:13: mouth 2 [place] 40 (two) Medical times Branch daily. gabapentin 2020-0 Yes 100mg Take 100 [facility] 100 mg 3-07 mg by ity of capsule 00:13: mouth [address] [place] [address] 40 (two) Medical times Branch daily. gabapentin 2020-0 Yes 100mg Take 100 [facility] 100 mg 3-07 mg by ity of capsule 00:13: mouth [address] [place] [address] 40 (two) Medical times Branch daily. gabapentin 2020-0 Yes 100mg Take 100 [facility] 100 mg 3-07 mg by ity of capsule 00:13: mouth [address] [place] [address] 40 (two) Medical times Branch daily. gabapentin 2020-0 Yes 100mg Take 100 [facility] [place] 100 mg 3-07 mg by ity of capsule 00:13: mouth [address] [place] [address] 40 (two) Medical times Branch daily. gabapentin 2020-0 Yes 100mg Take 100 [facility] [place] 100 mg 3-07 mg by ity of capsule 00:13: mouth [address] [place] [address] 40 (two) Medical times Branch daily. gabapentin 2020-0 Yes 100mg Take 100 [facility] 100 mg 3-07 mg by ity of capsule 00:13: mouth 2 [place] 40 (two) Medical times Branch daily. gabapentin 2020-0 Yes 100mg Take 100 [facility] 100 mg 3-07 mg by ity of capsule 00:13: mouth [address] [place] [address] 40 (two) Medical times Branch daily. gabapentin 2020-0 Yes 100mg Take 100 [facility] 100 mg 3-07 mg by ity of capsule 00:13: mouth 2 [place] 40 (two) Medical times Branch daily. gabapentin 2020-0 Yes 100mg Take 100 [facility] 100 mg 3-07 mg by ity of capsule 00:13: mouth 2 [place] 40 (two) Medical times Branch daily. gabapentin 2020-0 Yes 100mg Take 100 [facility] 100 mg 3-07 mg by ity of capsule 00:13: mouth 2 [place] 40 (two) Medical times Branch daily. gabapentin 2020-0 Yes 100mg Take 100 [facility] 100 mg 3-07 mg by ity of capsule 00:13: mouth 2 [place] 40 (two) Medical times Branch daily. gabapentin 2020-0 Yes 100mg Take 100 [facility] 100 mg 3-07 mg by ity of capsule 00:13: mouth 2 [place] 40 (two) Medical times Branch daily. gabapentin 2020-0 Yes 100mg Take 100 [facility] 100 mg 3-07 mg by ity of capsule 00:13: mouth 2 [place] 40 (two) Medical times Branch daily. gabapentin 2020-0 Yes 100mg Take 100 [facility] [place] 100 mg 3-07 mg by ity of capsule 00:13: mouth [address] [place] [address] 40 (two) Medical times Branch daily. gabapentin 2020-0 Yes 100mg Take 100 [facility] 100 mg 3-07 mg by ity of capsule 00:13: mouth [address] [place] [address] 40 (two) Medical times Branch daily. gabapentin 2020-0 Yes 100mg Take 100 [facility] 100 mg 3-07 mg by ity of capsule 00:13: mouth [address] [place] [address] 40 (two) Medical times Branch daily. gabapentin 2020-0 Yes 100mg Take 100 [facility] 100 mg 3-07 mg by ity of capsule 00:13: mouth [address] [place] [address] 40 (two) Medical times Branch daily. gabapentin 2020-0 Yes 100mg Take 100 [facility] 100 mg 3-07 mg by ity of capsule 00:13: mouth [address] [place] [address] 40 (two) Medical times Branch daily. gabapentin 2020-0 Yes 100mg Take 100 [facility] 100 mg 3-07 mg by ity of capsule 00:13: mouth 2 [place] 40 (two) Medical times Branch daily. gabapentin 2020-0 Yes 100mg Take 100 [facility] 100 mg 3-07 mg by ity of capsule 00:13: mouth [address] [place] [address] 40 (two) Medical times Branch daily. gabapentin 2020-0 Yes 100mg Take 100 [facility] 100 mg 3-07 mg by ity of capsule 00:13: mouth 2 [place] 40 (two) Medical times Branch daily. gabapentin 2020-0 Yes 100mg Take 100 [facility] 100 mg 3-07 mg by ity of capsule 00:13: mouth 2 [place] 40 (two) Medical times Branch daily. gabapentin 2020-0 Yes 100mg Take 100 [facility] 100 mg 3-07 mg by ity of capsule 00:13: mouth 2 [place] 40 (two) Medical times Branch daily. gabapentin 2020-0 Yes 100mg Take 100 [facility] 100 mg 3-07 mg by ity of capsule 00:13: mouth 2 [place] 40 (two) Medical times Branch daily. gabapentin 2020-0 Yes 100mg Take 100 [facility] 100 mg 3-07 mg by ity of capsule 00:13: mouth 2 [place] 40 (two) Medical times Branch daily. gabapentin 2020-0 Yes 100mg Take 100 [facility] 100 mg 3-07 mg by ity of capsule 00:13: mouth 2 [place] 40 (two) Medical times Branch daily. gabapentin 2020-0 Yes 100mg Take 100 [facility] 100 mg 3-07 mg by ity of capsule 00:13: mouth [address] [place] [address] 40 (two) Medical times Branch daily. gabapentin 2020-0 Yes 100mg Take 100 [facility] 100 mg 3-07 mg by ity of capsule 00:13: mouth [address] [place] [address] 40 (two) Medical times Branch daily. gabapentin 2020-0 Yes 100mg Take 100 [facility] 100 mg 3-07 mg by ity of capsule 00:13: mouth [address] [place] [address] 40 (two) Medical times Branch daily. gabapentin 2020-0 Yes 100mg Take 100 [facility] 100 mg 3-07 mg by ity of capsule 00:13: mouth [address] [place] [address] 40 (two) Medical times Branch daily. gabapentin 2020-0 Yes 100mg Take 100 [facility] 100 mg 3-07 mg by ity of capsule 00:13: mouth [address] [place] [address] 40 (two) Medical times Branch daily. gabapentin 2020-0 Yes 100mg Take 100 [facility] 100 mg 3-07 mg by ity of capsule 00:13: mouth 2 [place] 40 (two) Medical times Branch daily. gabapentin 2020-0 Yes 100mg Take 100 [facility] 100 mg 3-07 mg by ity of capsule 00:13: mouth 2 [place] 40 (two) Medical times Branch daily. gabapentin 2020-0 Yes 100mg Take 100 [facility] 100 mg 3-07 mg by ity of capsule 00:13: mouth 2 [place] 40 (two) Medical times Branch daily. gabapentin 2020-0 Yes 100mg Take 100 [facility] 100 mg 3-07 mg by ity of capsule 00:13: mouth 2 [place] 40 (two) Medical times Branch daily. gabapentin 2020-0 Yes 100mg Take 100 [facility] 100 mg 3-07 mg by ity of capsule 00:13: mouth 2 [place] 40 (two) Medical times Branch daily. gabapentin 2020-0 Yes 100mg Take 100 [facility] 100 mg 3-07 mg by ity of capsule 00:13: mouth 2 [place] 40 (two) Medical times Branch daily. gabapentin 2020-0 Yes 100mg Take 100 [facility] 100 mg 3-07 mg by ity of capsule 00:13: mouth 2 [place] 40 (two) Medical times Branch daily. gabapentin 2020-0 Yes 100mg Take 100 [facility] 100 mg 3-07 mg by ity of capsule 00:13: mouth 2 [place] 40 (two) Medical times Branch daily. gabapentin 2020-0 Yes 100mg Take 100 [facility] 100 mg 3-07 mg by ity of capsule 00:13: mouth [address] [place] [address] 40 (two) Medical times Branch daily. gabapentin 2020-0 Yes 100mg Take 100 [facility] 100 mg 3-07 mg by ity of capsule 00:13: mouth [address] [place] [address] 40 (two) Medical times Branch daily. gabapentin 2020-0 Yes 100mg Take 100 [facility] 100 mg 3-07 mg by ity of capsule 00:13: mouth [address] [place] [address] 40 (two) Medical times Branch daily. gabapentin 2020-0 Yes 100mg Take 100 [facility] 100 mg 3-07 mg by ity of capsule 00:13: mouth [address] [place] [address] 40 (two) Medical times Branch daily. gabapentin 2020-0 Yes 100mg Take 100 [facility] 100 mg 3-07 mg by ity of capsule 00:13: mouth [address] [place] [address] 40 (two) Medical times Branch daily. gabapentin 2020-0 Yes 100mg Take 100 [facility] 100 mg 3-07 mg by ity of capsule 00:13: mouth 2 [place] 40 (two) Medical times Branch daily. gabapentin 2020-0 Yes 100mg Take 100 [facility] 100 mg 3-07 mg by ity of capsule 00:13: mouth 2 [place] 40 (two) Medical times Branch daily. gabapentin 2020-0 Yes 100mg Take 100 [facility] 100 mg 3-07 mg by ity of capsule 00:13: mouth 2 [place] 40 (two) Medical times Branch daily. gabapentin 2020-0 Yes 100mg Take 100 [facility] 100 mg 3-07 mg by ity of capsule 00:13: mouth 2 [place] 40 (two) Medical times Branch daily. hydrALAZINE 2020-0 Yes 50mg Take 50 mg [facility] 50 mg 3-07 by mouth 3 ity of tablet 00:01: (three) [place] 47 times Medical daily with Branch meals. hydrALAZINE 2020-0 Yes 50mg Take 50 mg [facility] 50 mg 3-07 by mouth 3 ity of tablet 00:01: (three) [place] 47 times Medical daily with Branch meals. hydrALAZINE 2020-0 Yes 50mg Take 50 mg [facility] 50 mg 3-07 by mouth 3 ity of tablet 00:01: (three) [place] 47 times Medical daily with Branch meals. hydrALAZINE 2020-0 Yes 50mg Take 50 mg [facility] 50 mg 3-07 by mouth 3 ity of tablet 00:01: ([facility]) [place] 47 times Medical daily with Branch meals. hydrALAZINE 2020-0 Yes 50mg Take 50 mg [facility] 50 mg 3-07 by mouth 3 ity of tablet 00:01: ([facility]) [place] [address] times Medical daily with Branch meals. hydrALAZINE 2020-0 Yes 50mg Take 50 mg [facility] 50 mg 3-07 by mouth 3 ity of tablet 00:01: (three) [place] 47 times Medical daily with Branch meals. hydrALAZINE 2020-0 Yes 50mg Take 50 mg [facility] 50 mg 3-07 by mouth 3 ity of tablet 00:01: (three) [place] 47 times Medical daily with Branch meals. hydrALAZINE 2020-0 Yes 50mg Take 50 mg [facility] 50 mg 3-07 by mouth 3 ity of tablet 00:01: (three) [place] 47 times Medical daily with Branch meals. hydrALAZINE 2020-0 Yes 50mg Take 50 mg [facility] 50 mg 3-07 by mouth 3 ity of tablet 00:01: (three) [place] [address] times Medical daily with Branch meals. hydrALAZINE 2020-0 Yes 50mg Take 50 mg [facility] 50 mg 3-07 by mouth 3 ity of tablet 00:01: (three) [place] [address] times Medical daily with Branch meals. hydrALAZINE 2020-0 Yes 50mg Take 50 mg [facility] 50 mg 3-07 by mouth 3 ity of tablet 00:01: (three) [place] [address] times Medical daily with Branch meals. hydrALAZINE 2020-0 Yes 50mg Take 50 mg [facility] 50 mg 3-07 by mouth 3 ity of tablet 00:01: (three) [place] 47 times Medical daily with Branch meals. hydrALAZINE 2020-0 Yes 50mg Take 50 mg [facility] 50 mg 3-07 by mouth 3 ity of tablet 00:01: (three) [place] 47 times Medical daily with Branch meals. hydrALAZINE 2020-0 Yes 50mg Take 50 mg [facility] 50 mg 3-07 by mouth 3 ity of tablet 00:01: ([facility]) [place] 47 times Medical daily with Branch meals. hydrALAZINE 2020-0 Yes 50mg Take 50 mg [facility] 50 mg 3-07 by mouth 3 ity of tablet 00:01: ([facility]) [place] 47 times Medical daily with Branch meals. hydrALAZINE 2020-0 Yes 50mg Take 50 mg [facility] 50 mg 3-07 by mouth 3 ity of tablet 00:01: ([facility]) [place] 47 times Medical daily with Branch meals. hydrALAZINE 2020-0 Yes 50mg Take 50 mg [facility] 50 mg 3-07 by mouth 3 ity of tablet 00:01: ([facility]) [place] 47 times Medical daily with Branch meals. hydrALAZINE 2020-0 Yes 50mg Take 50 mg [facility] 50 mg 3-07 by mouth 3 ity of tablet 00:01: ([facility]) [place] 47 times Medical daily with Branch meals. hydrALAZINE 2020-0 Yes 50mg Take 50 mg [facility] 50 mg 3-07 by mouth 3 ity of tablet 00:01: ([facility]) [place] 47 times Medical daily with Branch meals. hydrALAZINE 2020-0 Yes 50mg Take 50 mg [facility] 50 mg 3-07 by mouth 3 ity of tablet 00:01: ([facility]) [place] 47 times Medical daily with Branch meals. hydrALAZINE 2020-0 Yes 50mg Take 50 mg [facility] 50 mg 3-07 by mouth 3 ity of tablet 00:01: (three) [place] 47 times Medical daily with Branch meals. losartan-hy 2020-0 Yes Take by Uni vers drochloroth 3-07 mouth. ity of iazide 00:01: [place] 100-25 mg 47 Medical per tablet Branch hydrALAZINE 2020-0 Yes 50mg Take 50 mg [facility] 50 mg 3-07 by mouth 3 ity of tablet 00:01: (three) [place] 47 times Medical daily with Branch meals. hydrALAZINE 2020-0 Yes 50mg Take 50 mg [facility] 50 mg 3-07 by mouth 3 ity of tablet 00:01: (three) [place] 47 times Medical daily with Branch meals. hydrALAZINE 2020-0 Yes 50mg Take 50 mg [facility] 50 mg 3-07 by mouth 3 ity of tablet 00:01: ([facility]) [place] 47 times Medical daily with Branch meals. hydrALAZINE 2020-0 Yes 50mg Take 50 mg [facility] 50 mg 3-07 by mouth 3 ity of tablet 00:01: ([facility]) [place] 47 times Medical daily with Branch meals. hydrALAZINE 2020-0 Yes 50mg Take 50 mg [facility] 50 mg 3-07 by mouth 3 ity of tablet 00:01: ([facility]) [place] 47 times Medical daily with Branch meals. hydrALAZINE 2020-0 Yes 50mg Take 50 mg [facility] 50 mg 3-07 by mouth 3 ity of tablet 00:01: ([facility]) [place] [address] times Medical daily with Branch meals. hydrALAZINE 2020-0 Yes 50mg Take 50 mg [facility] 50 mg 3-07 by mouth 3 ity of tablet 00:01: ([facility]) [place] [address] times Medical daily with Branch meals. hydrALAZINE 2020-0 Yes 50mg Take 50 mg [facility] 50 mg 3-07 by mouth 3 ity of tablet 00:01: ([facility]) [place] [address] times Medical daily with Branch meals. hydrALAZINE 2020-0 Yes 50mg Take 50 mg [facility] 50 mg 3-07 by mouth 3 ity of tablet 00:01: ([facility]) [place] [address] times Medical daily with Branch meals. hydrALAZINE 2020-0 Yes 50mg Take 50 mg [facility] 50 mg 3-07 by mouth 3 ity of tablet 00:01: ([facility]) [place] [address] times Medical daily with Branch meals. hydrALAZINE 2020-0 Yes 50mg Take 50 mg [facility] 50 mg 3-07 by mouth 3 ity of tablet 00:01: ([facility]) [place] [address] times Medical daily with Branch meals. hydrALAZINE 2020-0 Yes 50mg Take 50 mg [facility] 50 mg 3-07 by mouth 3 ity of tablet 00:01: ([facility]) [place] [address] times Medical daily with Branch meals. hydrALAZINE 2020-0 Yes 50mg Take 50 mg [facility] 50 mg 3-07 by mouth 3 ity of tablet 00:01: (three) [place] [address] times Medical daily with Branch meals. hydrALAZINE 2020-0 Yes 50mg Take 50 mg [facility] 50 mg 3-07 by mouth 3 ity of tablet 00:01: ([facility]) [place] 47 times Medical daily with Branch meals. hydrALAZINE 2020-0 Yes 50mg Take 50 mg [facility] 50 mg 3-07 by mouth 3 ity of tablet 00:01: ([facility]) [place] 47 times Medical daily with Branch meals. hydrALAZINE 2020-0 Yes 50mg Take 50 mg [facility] 50 mg 3-07 by mouth 3 ity of tablet 00:01: ([facility]) [place] 47 times Medical daily with Branch meals. hydrALAZINE 2020-0 Yes 50mg Take 50 mg [facility] 50 mg 3-07 by mouth 3 ity of tablet 00:01: ([facility]) [place] 47 times Medical daily with Branch meals. hydrALAZINE 2020-0 Yes 50mg Take 50 mg [facility] 50 mg 3-07 by mouth 3 ity of tablet 00:01: ([facility]) [place] [address] times Medical daily with Branch meals. hydrALAZINE 2020-0 Yes 50mg Take 50 mg [facility] 50 mg 3-07 by mouth 3 ity of tablet 00:01: ([facility]) [place] [address] times Medical daily with Branch meals. hydrALAZINE 2020-0 Yes 50mg Take 50 mg [facility] 50 mg 3-07 by mouth 3 ity of tablet 00:01: ([facility]) [place] [address] times Medical daily with Branch meals. hydrALAZINE 2020-0 Yes 50mg Take 50 mg [facility] 50 mg 3-07 by mouth 3 ity of tablet 00:01: ([facility]) [place] 47 times Medical daily with Branch meals. hydrALAZINE 2020-0 Yes 50mg Take 50 mg [facility] 50 mg 3-07 by mouth 3 ity of tablet 00:01: ([facility]) [place] 47 times Medical daily with Branch meals. hydrALAZINE 2020-0 Yes 50mg Take 50 mg [facility] 50 mg 3-07 by mouth 3 ity of tablet 00:01: ([facility]) [place] [address] times Medical daily with Branch meals. hydrALAZINE 2020-0 Yes 50mg Take 50 mg [facility] 50 mg 3-07 by mouth 3 ity of tablet 00:01: ([facility]) [place] [address] times Medical daily with Branch meals. hydrALAZINE 2020-0 Yes 50mg Take 50 mg [facility] 50 mg 3-07 by mouth 3 ity of tablet 00:01: ([facility]) [place] [address] times Medical daily with Branch meals. hydrALAZINE 2020-0 Yes 50mg Take 50 mg [facility] 50 mg 3-07 by mouth 3 ity of tablet 00:01: (three) [place] 47 times Medical daily with Branch meals. hydrALAZINE 2020-0 Yes 50mg Take 50 mg [facility] 50 mg 3-07 by mouth 3 ity of tablet 00:01: (three) [place] 47 times Medical daily with Branch meals. hydrALAZINE 2020-0 Yes 50mg Take 50 mg [facility] 50 mg 3-07 by mouth 3 ity of tablet 00:01: (three) [place] 47 times Medical daily with Branch meals. hydrALAZINE 2020-0 Yes 50mg Take 50 mg [facility] 50 mg 3-07 by mouth 3 ity of tablet 00:01: (three) [place] 47 times Medical daily with Branch meals. hydrALAZINE 2020-0 Yes 50mg Take 50 mg [facility] 50 mg 3-07 by mouth 3 ity of tablet 00:01: (three) [place] 47 times Medical daily with Branch meals. hydrALAZINE 2020-0 Yes 50mg Take 50 mg [facility] 50 mg 3-07 by mouth 3 ity of tablet 00:01: (three) [place] 47 times Medical daily with Branch meals. hydrALAZINE 2020-0 Yes 50mg Take 50 mg [facility] 50 mg 3-07 by mouth 3 ity of tablet 00:01: (three) [place] 47 times Medical daily with Branch meals. hydrALAZINE 2020-0 Yes 50mg Take 50 mg [facility] 50 mg 3-07 by mouth 3 ity of tablet 00:01: (three) [place] 47 times Medical daily with Branch meals. nitroglycer 2020-[address] 0[address]3 U nivers in 0.3 mg 3-06 mg under ity of sublingual 23:52: the tongue [place] tablet 42 every 5 Medical (five) Branch minutes as needed for Chest pain. carvediloL 2020-0 Yes 25mg Take 25 mg U nivers 25 mg 3-06 by mouth 2 ity of tablet 19:16: (two) [place] 39 times Medical daily with Branch meals. proMETHazin 2020-0 Yes 12.5mg Take 12.5 Univers e 25 mg 3-06 mg by ity of tablet 19:16: mouth 3 [place] 39 (three) Medical times Branch daily as needed for Nausea and Vomiting (N/V). insulin 2020-0 Yes inject [facility] aspart 3-06 under the ity of U-100 19:16: skin. [place] (NOVOLOG 39 Medical FLEXPEN Branch U-100 INSULIN) [...] it y of caffeine 15:51: 00:00 mouth [place] (EXCEDRIN 24 :00 every 6 Medical MIGRAINE) [...] needed for tablet Pain. SERTraline 2020-0 Yes [id number] 25mg Take 1 U nivers 25 mg 3-06 tablet by ity of tablet 00:00: mouth [place] 00 daily. Medical Branch SERTraline 2020-0 Yes [id number] 25mg Take 1 U nivers 25 mg 3-06 tablet by ity of tablet 00:00: mouth [place] 00 daily. Medical Branch SERTraline 2020-0 Yes [id number] 25mg Take 1 U nivers 25 mg 3-06 tablet by ity of tablet 00:00: mouth [place] 00 daily. Medical Branch SERTraline 2020-0 Yes [id number] 25mg Take 1 U nivers 25 mg 3-06 tablet by ity of tablet 00:00: mouth [place] 00 daily. Medical Branch SERTraline 2020-0 Yes [id number] 25mg Take 1 U nivers 25 mg 3-06 tablet by ity of tablet 00:00: mouth [place] 00 daily. Medical Branch SERTraline 2020-0 Yes [id number] 25mg Take 1 U nivers 25 mg 3-06 tablet by ity of tablet 00:00: mouth [place] 00 daily. Medical Branch SERTraline 2020-0 Yes [id number] 25mg Take 1 U nivers 25 mg 3-06 tablet by ity of tablet 00:00: mouth [place] 00 daily. Medical Branch SERTraline 2020-0 Yes [id number] 25mg Take 1 U nivers 25 mg 3-06 tablet by ity of tablet 00:00: mouth [place] 00 daily. Medical Branch SERTraline 2020-0 Yes [id number] 25mg Take 1 U nivers 25 mg 3-06 tablet by ity of tablet 00:00: mouth [place] 00 daily. Medical Branch SERTraline 2019-0 Yes [id number] 25mg Take 1 U nivers 25 mg 3-06 tablet by ity of tablet 00:00: mouth [place] 00 daily. Medical Branch SERTraline 2020-0 Yes [id number] 25mg Take 1 U nivers 25 mg 3-06 tablet by ity of tablet 00:00: mouth [place] 00 daily. Medical Branch SERTraline 2020-0 Yes [id number] 25mg Take 1 U nivers 25 mg 3-06 tablet by ity of tablet 00:00: mouth [place] 00 daily. Medical Branch SERTraline 2019-0 Yes [id number] 25mg Take 1 U nivers 25 mg 3-06 tablet by ity of tablet 00:00: mouth [place] 00 daily. Medical Branch SERTraline 2020-0 2020- No [id number] 25mg Take 1 [facility] 25 mg 3-06 05-21 tablet by ity of tablet 00:00: 00:00 mouth [place] 00 :00 daily. Medical Branch SERTraline 2020-0 2020- No [id number] 25mg Take 1 [facility] 25 mg 3-06 [...] IN ity of nasal spray 00:00: ONE [place] NOSTRIL Medical EVERY 8 Branch HOURS NEEDED FOR HEADACHE butorphanol 2020-0 Yes USE 1 Unive rs 10 mg/mL 3-05 SPRAY IN ity of nasal spray 00:00: ONE [place] NOSTRIL Medical EVERY 8 Branch HOURS NEEDED FOR HEADACHE butorphanol 2020-0 Yes USE 1 Unive rs 10 mg/mL 3-05 SPRAY IN ity of nasal spray 00:00: ONE [place] NOSTRIL Medical EVERY 8 Branch HOURS NEEDED FOR HEADACHE butorphanol 2020-0 Yes USE 1 Unive rs 10 mg/mL 3-05 SPRAY IN ity of nasal spray 00:00: ONE [place] NOSTRIL Medical EVERY 8 Branch HOURS NEEDED FOR HEADACHE butorphanol 2020-0 Yes USE 1 Unive rs 10 mg/mL 3-05 SPRAY IN ity of nasal spray 00:00: ONE [place] NOSTRIL Medical EVERY 8 Branch HOURS NEEDED FOR HEADACHE butorphanol 2020-0 Yes USE 1 Unive rs 10 mg/mL 3-05 SPRAY IN ity of nasal spray 00:00: ONE [place] NOSTRIL Medical EVERY 8 Branch HOURS NEEDED FOR HEADACHE butorphanol 2020-0 Yes USE 1 Unive rs 10 mg/mL 3-05 SPRAY IN ity of nasal spray 00:00: ONE [place] NOSTRIL Medical EVERY 8 Branch HOURS NEEDED FOR HEADACHE butorphanol 2020-0 Yes USE 1 Unive rs 10 mg/mL 3-05 SPRAY IN ity of nasal spray 00:00: ONE [place] NOSTRIL Medical EVERY 8 Branch HOURS NEEDED FOR HEADACHE butorphanol 2020-0 Yes USE 1 Unive rs 10 mg/mL 3-05 SPRAY IN ity of nasal spray 00:00: ONE [place] NOSTRIL Medical EVERY 8 Branch HOURS NEEDED FOR HEADACHE butorphanol 2020-0 Yes USE 1 Unive rs 10 mg/mL 3-05 SPRAY IN ity of nasal spray 00:00: ONE [place] NOSTRIL Medical EVERY 8 Branch HOURS NEEDED FOR HEADACHE butorphanol 2020-0 2020- No USE 1 Univ ers 10 mg/mL 3-05 04-01 SPRAY IN ity of nasal spray 00:00: 00:00 ONE [place] 00 :00 NOSTRIL Medical EVERY 8 Branch [...] Univers mg tablet 3-04 ity of 00:00: [place] 00 Medical Branch ELIQUIS 5 2020-0 Yes 5mg Take 5 mg Uni vers mg tablet 3-04 by mouth 2 ity of 00:00: (two) [place] 00 times Medical daily. Branch ELIQUIS 5 [...] TABLET BY ity of tablet 00:00: MOUTH [place] 00 EVERYDAY Medical AT BEDTIME Branch AMITRIPTYLI 2020-0 Yes TAKE 1 Univ ers NE 25 mg 3-02 TABLET BY ity of tablet 00:00: MOUTH [place] 00 EVERYDAY Medical AT BEDTIME Branch AMITRIPTYLI 2020-0 Yes TAKE 1 Univ ers [place] 25 mg 3-02 TABLET BY ity of tablet 00:00: MOUTH 00 EVERYDAY Medical AT BEDTIME Branch AMITRIPTYLI 2020-0 Yes TAKE 1 Univ ers [place] 25 mg 3-02 TABLET BY ity of tablet 00:00: MOUTH [place] 00 EVERYDAY Medical AT BEDTIME Branch AMITRIPTYLI 2020-0 Yes TAKE 1 Univ ers [place] 25 mg 3-02 TABLET BY ity of tablet 00:00: MOUTH [place] 00 EVERYDAY Medical AT BEDTIME Branch AMITRIPTYLI 2020-0 Yes TAKE 1 Univ ers [place] 25 mg 3-02 TABLET BY ity of tablet 00:00: MOUTH [place] 00 EVERYDAY Medical AT BEDTIME Branch AMITRIPTYLI 2019-0 Yes TAKE 1 Univ ers [place] 25 mg 3-02 TABLET BY ity of tablet 00:00: MOUTH [place] 00 EVERYDAY Medical AT BEDTIME Branch AMITRIPTYLI 2019-0 Yes TAKE 1 [facility] ers [place] 25 mg 3-02 TABLET BY ity of tablet 00:00: MOUTH [place] EVERYDAY Medical AT BEDTIME Branch AMITRIPTYLI 2019-0 Yes TAKE 1 Univ ers [place] 25 mg 3-02 TABLET BY ity of tablet 00:00: MOUTH [place] EVERYDAY Medical AT BEDTIME Branch AMITRIPTYLI 2019-0 Yes TAKE 1 Univ ers [place] 25 mg 3-02 TABLET BY ity of tablet 00:00: MOUTH [place] EVERYDAY Medical AT BEDTIME Branch AMITRIPTYLI 2019-0 2020- No TAKE 1 Uni vers NE 25 mg 3-02 03-30 TABLET BY ity o f tablet 00:00: 00:00 MOUTH [place] 00 :00 EVERYDAY Medical AT BEDTIME Branch zolpidem 10 2019-0 Yes 10mg Take 10 mg [facility] mg tablet 3-01 by mouth ity of 00:00: at [place] [address] bedtime. I Medical ADVISE Branch AGAINST TAKING THIS MEDICATION DUE TO THE RISKS. [facility] zolpidem 10 2019-0 Yes 10mg Take 10 mg [facility] mg tablet 3-01 by mouth ity of 00:00: at [place] [address] bedtime. I Medical ADVISE Branch AGAINST TAKING THIS MEDICATION DUE TO THE RISKS. [facility] zolpidem 10 2019-0 Yes 10mg Take 10 mg [facility] mg tablet 3-01 by mouth ity of 00:00: at [place] [address] bedtime. I Medical ADVISE Branch AGAINST TAKING THIS MEDICATION DUE TO THE RISKS. [facility] zolpidem 10 2019-0 Yes 10mg Take 10 mg [facility] mg tablet 3-01 by mouth ity of 00:00: at [place] [address] bedtime. I Medical ADVISE Branch AGAINST TAKING THIS MEDICATION DUE TO THE RISKS. [facility] zolpidem 10 2019-0 Yes 10mg Take 10 mg [facility] mg tablet 3-01 by mouth ity of 00:00: at [place] [address] bedtime. I Medical ADVISE Branch AGAINST TAKING THIS MEDICATION DUE TO THE RISKS. [facility] zolpidem 10 2019-0 Yes 10mg Take 10 mg [facility] mg tablet 3-01 by mouth ity of 00:00: at [place] [address] bedtime. I Medical ADVISE Branch AGAINST TAKING THIS MEDICATION DUE TO THE RISKS. [facility] zolpidem 10 2020-0 Yes 10mg Take 10 mg [facility] mg tablet 3-01 by mouth ity of 00:00: at [place] 00 bedtime. I Medical ADVISE Branch AGAINST TAKING THIS MEDICATION DUE TO THE RISKS. [facility] zolpidem 10 2020-0 Yes 10mg Take 10 mg [facility] mg tablet 3-01 by mouth ity of 00:00: at [place] 00 bedtime. I Medical ADVISE Branch AGAINST TAKING THIS MEDICATION DUE TO THE RISKS. [facility] zolpidem 10 2020-0 Yes 10mg Take 10 mg [facility] mg tablet 3-01 by mouth ity of 00:00: at [place] [address] bedtime. I Medical ADVISE Branch AGAINST TAKING THIS MEDICATION DUE TO THE RISKS. [facility] zolpidem 10 2020-0 Yes 10mg Take 10 mg [facility] mg tablet 3-01 by mouth ity of 00:00: at [place] [address] bedtime. I Medical ADVISE Branch AGAINST TAKING THIS MEDICATION DUE TO THE RISKS. [facility] zolpidem 10 2020-0 Yes 10mg Take 10 mg [facility] mg tablet 3-01 by mouth ity of 00:00: at [place] [address] bedtime. I Medical ADVISE Branch AGAINST TAKING THIS MEDICATION DUE TO THE RISKS. [facility] zolpidem 10 2020-0 Yes 10mg Take 10 mg [facility] mg tablet 3-01 by mouth ity of 00:00: at [place] [address] bedtime. I Medical ADVISE Branch AGAINST TAKING THIS MEDICATION DUE TO THE RISKS. [facility] zolpidem 10 2020-0 Yes 10mg Take 10 mg [facility] mg tablet 3-01 by mouth ity of 00:00: at [place] [address] bedtime. I Medical ADVISE Branch AGAINST TAKING THIS MEDICATION DUE TO THE RISKS. [facility] zolpidem 10 2020-0 Yes 10mg Take 10 mg [facility] mg tablet 3-01 by mouth ity of 00:00: at [place] 00 bedtime. I Medical ADVISE Branch AGAINST TAKING THIS MEDICATION DUE TO THE RISKS. [facility] zolpidem 10 2020-0 Yes 10mg Take 10 mg [facility] mg tablet 3-01 by mouth ity of 00:00: at [place] [address] bedtime. I Medical ADVISE Branch AGAINST TAKING THIS MEDICATION DUE TO THE RISKS. [facility] zolpidem 10 2020-0 Yes 10mg Take 10 mg [facility] mg tablet 3-01 by mouth ity of 00:00: at [place] [address] bedtime. I Medical ADVISE Branch AGAINST TAKING THIS MEDICATION DUE TO THE RISKS. [facility] zolpidem 10 2020-0 Yes 10mg Take 10 mg [facility] mg tablet 3-01 by mouth ity of 00:00: at [place] [address] bedtime. I Medical ADVISE Branch AGAINST TAKING THIS MEDICATION DUE TO THE RISKS. [facility] zolpidem 10 2020-0 Yes 10mg Take 10 mg [facility] mg tablet 3-01 by mouth ity of 00:00: at [place] [address] bedtime. I Medical ADVISE Branch AGAINST TAKING THIS MEDICATION DUE TO THE RISKS. [facility] zolpidem 10 2020-0 Yes 10mg Take 10 mg [facility] mg tablet 3-01 by mouth ity of 00:00: at [place] [address] bedtime. I Medical ADVISE Branch AGAINST TAKING THIS MEDICATION DUE TO THE RISKS. [facility] zolpidem 10 2020-0 Yes 10mg Take 10 mg [facility] mg tablet 3-01 by mouth ity of 00:00: at [place] [address] bedtime. I Medical ADVISE Branch AGAINST TAKING THIS MEDICATION DUE TO THE RISKS. [facility] zolpidem 10 2020-0 Yes 10mg Take 10 mg [facility] mg tablet 3-01 by mouth ity of 00:00: at [place] [address] bedtime. I Medical ADVISE Branch AGAINST TAKING THIS MEDICATION DUE TO THE RISKS. [facility] zolpidem 10 2020-0 Yes 10mg Take 10 mg [facility] mg tablet 3-01 by mouth ity of 00:00: at [place] [address] bedtime. [facility] zolpidem 10 2020-0 Yes 10mg Take 10 mg [facility] mg tablet 3-01 by mouth ity of 00:00: at [place] [address] bedtime. [facility] zolpidem 10 2020-0 Yes 10mg Take 10 mg [facility] mg tablet 3-01 by mouth ity of 00:00: at [place] [address] bedtime. [facility] zolpidem 10 2020-0 Yes 10mg Take 10 mg [facility] mg tablet 3-01 by mouth ity of 00:00: at [place] [address] bedtime. I Medical ADVISE Branch AGAINST TAKING THIS MEDICATION DUE TO THE RISKS. [facility] zolpidem 10 2020-0 Yes 10mg Take 10 mg [facility] mg tablet 3-01 by mouth ity of 00:00: at [place] [address] bedtime. I Medical ADVISE Branch AGAINST TAKING THIS MEDICATION DUE TO THE RISKS. [facility] zolpidem 10 2020-0 Yes 10mg Take 10 mg [facility] mg tablet 3-01 by mouth ity of 00:00: at [place] 00 bedtime. I Medical ADVISE Branch AGAINST TAKING THIS MEDICATION DUE TO THE RISKS. [facility] zolpidem 10 2020-0 Yes 10mg Take 10 mg [facility] mg tablet 3-01 by mouth ity of 00:00: at [place] 00 bedtime. I Medical ADVISE Branch AGAINST TAKING THIS MEDICATION DUE TO THE RISKS. [facility] zolpidem 10 2020-0 Yes 10mg Take 10 mg [facility] mg tablet 3-01 by mouth ity of 00:00: at [place] 00 bedtime. I Medical ADVISE Branch AGAINST TAKING THIS MEDICATION DUE TO THE RISKS. [facility] zolpidem 10 2020-0 Yes 10mg Take 10 mg [facility] mg tablet 3-01 by mouth ity of 00:00: at [place] [address] bedtime. I Medical ADVISE Branch AGAINST TAKING THIS MEDICATION DUE TO THE RISKS. [facility] zolpidem 10 2020-0 Yes 10mg Take 10 mg [facility] mg tablet 3-01 by mouth ity of 00:00: at [place] [address] bedtime. I Medical ADVISE Branch AGAINST TAKING THIS MEDICATION DUE TO THE RISKS. [facility] zolpidem 10 2020-0 Yes 10mg Take 10 mg [facility] mg tablet 3-01 by mouth ity of 00:00: at [place] [address] bedtime. I Medical ADVISE Branch AGAINST TAKING THIS MEDICATION DUE TO THE RISKS. [facility] zolpidem 10 2020-0 Yes 10mg Take 10 mg [facility] mg tablet 3-01 by mouth ity of 00:00: at [place] [address] bedtime. I Medical ADVISE Branch AGAINST TAKING THIS MEDICATION DUE TO THE RISKS. [facility] zolpidem 10 2020-0 Yes 10mg Take 10 mg [facility] mg tablet 3-01 by mouth ity of 00:00: at [place] [address] bedtime. I Medical ADVISE Branch AGAINST TAKING THIS MEDICATION DUE TO THE RISKS. [facility] zolpidem 10 2020-0 Yes 10mg Take 10 mg [facility] mg tablet 3-01 by mouth ity of 00:00: at [place] [address] bedtime. I Medical ADVISE Branch AGAINST TAKING THIS MEDICATION DUE TO THE RISKS. [facility] zolpidem 10 2020-0 Yes 10mg Take 10 mg [facility] mg tablet 3-01 by mouth ity of 00:00: at [place] [address] bedtime. I Medical ADVISE Branch AGAINST TAKING THIS MEDICATION DUE TO THE RISKS. [facility] zolpidem 10 2020-0 Yes 10mg Take 10 mg [facility] mg tablet 3-01 by mouth ity of 00:00: at [place] 00 bedtime. I Medical ADVISE Branch AGAINST TAKING THIS MEDICATION DUE TO THE RISKS. [facility] zolpidem 10 2020-0 Yes 10mg Take 10 mg [facility] mg tablet 3-01 by mouth ity of 00:00: at [place] [address] bedtime. I Medical ADVISE Branch AGAINST TAKING THIS MEDICATION DUE TO THE RISKS. [facility] zolpidem 10 2020-0 Yes 10mg Take 10 mg [facility] mg tablet 3-01 by mouth ity of 00:00: at [place] [address] bedtime. I Medical ADVISE Branch AGAINST TAKING THIS MEDICATION DUE TO THE RISKS. [facility] zolpidem 10 2020-0 Yes 10mg Take 10 mg [facility] mg tablet 3-01 by mouth ity of 00:00: at [place] [address] bedtime. I Medical ADVISE Branch AGAINST TAKING THIS MEDICATION DUE TO THE RISKS. [facility] zolpidem 10 2020-0 Yes 10mg Take 10 mg [facility] mg tablet 3-01 by mouth ity of 00:00: at [place] [address] bedtime. I Medical ADVISE Branch AGAINST TAKING THIS MEDICATION DUE TO THE RISKS. [facility] zolpidem 10 2020-0 Yes 10mg Take 10 mg [facility] mg tablet 3-01 by mouth ity of 00:00: at [place] [address] bedtime. I Medical ADVISE Branch AGAINST TAKING THIS MEDICATION DUE TO THE RISKS. [facility] zolpidem 10 2020-0 Yes 10mg Take 10 mg [facility] mg tablet 3-01 by mouth ity of 00:00: at [place] [address] bedtime. I Medical ADVISE Branch AGAINST TAKING THIS MEDICATION DUE TO THE RISKS. [facility] zolpidem 10 2020-0 Yes 10mg Take 10 mg [facility] mg tablet 3-01 by mouth ity of 00:00: at [place] [address] bedtime. I Medical ADVISE Branch AGAINST TAKING THIS MEDICATION DUE TO THE RISKS. [facility] zolpidem 10 2020-0 Yes 10mg Take 10 mg [facility] mg tablet 3-01 by mouth ity of 00:00: at [place] [address] bedtime. I Medical ADVISE Branch AGAINST TAKING THIS MEDICATION DUE TO THE RISKS. [facility] zolpidem 10 2020-0 Yes 10mg Take 10 mg [facility] mg tablet 3-01 by mouth ity of 00:00: at [place] [address] bedtime. I Medical ADVISE Branch AGAINST TAKING THIS MEDICATION DUE TO THE RISKS. [facility] zolpidem 10 2020-0 Yes 10mg Take 10 mg [facility] mg tablet 3-01 by mouth ity of 00:00: at [place] 00 bedtime. I Medical ADVISE Branch AGAINST TAKING THIS MEDICATION DUE TO THE RISKS. [facility] zolpidem 10 2020-0 Yes 10mg Take 10 mg [facility] mg tablet 3-01 by mouth ity of 00:00: at [place] 00 bedtime. I Medical ADVISE Branch AGAINST TAKING THIS MEDICATION DUE TO THE RISKS. [facility] zolpidem 10 2020-0 Yes 10mg Take 10 mg [facility] mg tablet 3-01 by mouth ity of 00:00: at [place] 00 bedtime. I Medical ADVISE Branch AGAINST TAKING THIS MEDICATION DUE TO THE RISKS. [facility] zolpidem 10 2020-0 Yes 10mg Take 10 mg [facility] mg tablet 3-01 by mouth ity of 00:00: at [place] [address] bedtime. I Medical ADVISE Branch AGAINST TAKING THIS MEDICATION DUE TO THE RISKS. [facility] zolpidem 10 2020-0 Yes 10mg Take 10 mg [facility] mg tablet 3-01 by mouth ity of 00:00: at [place] [address] bedtime. I Medical ADVISE Branch AGAINST TAKING THIS MEDICATION DUE TO THE RISKS. [facility] zolpidem 10 2020-0 Yes 10mg Take 10 mg [facility] mg tablet 3-01 by mouth ity of 00:00: at [place] [address] bedtime. I Medical ADVISE Branch AGAINST TAKING THIS MEDICATION DUE TO THE RISKS. [facility] zolpidem 10 2020-0 Yes 10mg Take 10 mg [facility] mg tablet 3-01 by mouth ity of 00:00: at [place] [address] bedtime. I Medical ADVISE Branch AGAINST TAKING THIS MEDICATION DUE TO THE RISKS. [facility] zolpidem 10 2020-0 Yes 10mg Take 10 mg Univers mg tablet 3-01 by mouth ity of 00:00: at [place] 00 bedtime. I Medical ADVISE Branch AGAINST TAKING THIS MEDICATION DUE TO THE RISKS. [facility] zolpidem 10 2020-0 Yes 10mg Take 10 mg Univers mg tablet 3-01 by mouth ity of 00:00: at [place] [address] bedtime. I Medical ADVISE Branch AGAINST TAKING THIS MEDICATION DUE TO THE RISKS. [facility] zolpidem 10 2020-0 Yes 10mg Take 10 mg [facility] mg tablet 3-01 by mouth ity of 00:00: at [place] 00 bedtime. I Medical ADVISE Branch AGAINST TAKING THIS MEDICATION DUE TO THE RISKS. [facility] zolpidem 10 2020-0 Yes 10mg Take 10 mg Univers mg tablet 3-01 by mouth ity of 00:00: at [place] 00 bedtime. I Medical ADVISE Branch AGAINST TAKING THIS MEDICATION DUE TO THE RISKS. [facility] ondansetron 2020-0 Yes 4mg Take 4 [...] by ity of tablet 00:00: mouth at [place] [address] bedtime. Medical Branch butorphanol 2020-0 Yes USE 1 Unive rs 10 mg/mL 2-07 SPRAY IN ity of nasal spray 00:00: ONE [place] [address] NOSTRIL Medical EVERY 8 Branch HOURS NEEDED FOR HEADACHE amitriptyli 2020-0 Yes 25mg Take 1 Univ ers ne 25 mg 2-07 tablet by ity of tablet 00:00: mouth at [place] [address] bedtime. Medical Branch butorphanol 2020-0 Yes USE 1 Unive rs 10 mg/mL 2-07 SPRAY IN ity of nasal spray 00:00: ONE [place] [address] NOSTRIL Medical EVERY 8 Branch HOURS NEEDED FOR HEADACHE butorphanol 2020-0 Yes USE 1 Unive rs 10 mg/mL 2-07 SPRAY IN ity of nasal spray 00:00: ONE [place] [address] NOSTRIL Medical EVERY 8 Branch HOURS NEEDED FOR HEADACHE butorphanol 2020-0 2020- No USE 1 Univ ers 10 mg/mL 2-07 03-05 SPRAY IN ity of nasal spray 00:00: 00:00 ONE [place] 00 :00 NOSTRIL Medical EVERY 8 Branch HOURS NEEDED FOR HEADACHE butorphanol 2020-0 2020- No USE 1 Univ ers 10 mg/mL 2-07 03-05 SPRAY IN ity of nasal spray 00:00: 00:00 ONE [place] 00 :00 NOSTRIL Medical EVERY 8 Branch HOURS NEEDED FOR HEADACHE amitriptyli 2020-0 2020- No 25mg Take 1 Uni vers ne 25 mg 2- 03-02 tablet by ity o f tablet 00:00: 00:00 mouth at [place] 00 :00 bedtime. Medical Branch amLODIPine 2020-0 Yes 5mg Take 5 mg Un osbaldo 5 mg tablet 2-06 by mouth 2 it y of 00:00: (two) [place] 00 times Medical daily. Branch amLODIPine 2020-0 Yes 5mg Take 5 mg Un [facility] 5 mg tablet 2-06 by mouth 2 it y of 00:00: (two) [place] 00 times Medical daily. Branch amLODIPine 2020-0 Yes 5mg Take 5 mg Un [place] 5 mg tablet 2-06 by mouth 2 it y of 00:00: (two) [place] 00 times Medical daily. Branch amLODIPine 2020-0 Yes 5mg Take 5 mg Un [place] 5 mg tablet 2-06 by mouth 2 it y of 00:00: (two) [place] 00 times Medical daily. Branch amLODIPine 2020-0 [...] (two) [place] 00 times Medical daily. Branch sotalol 80 2020-0 Yes 80mg Take 80 mg U nivers mg tablet 1-16 by mouth ity of 00:00: every 12 [place] 00 (twelve) Medical hours. Branch sotalol 80 2020-0 Yes 80mg Take 80 mg U nivers mg tablet 1-16 by mouth ity of 00:00: every 12 [place] [address] (twelve) Medical hours. Branch sotalol 80 2020-0 Yes 80mg Take 80 mg U nivers mg tablet 1-16 by mouth ity of 00:00: every 12 [place] [address] (twelve) Medical hours. Branch sotalol 80 2020-0 Yes 80mg Take 80 mg U nivers mg tablet 1-16 by mouth ity of 00:00: every 12 [place] [address] (twelve) Medical hours. Branch sotalol 80 2020-0 Yes 80mg Take 80 mg U nivers mg tablet 1-16 by mouth ity of 00:00: every 12 [place] [address] (twelve) Medical hours. Branch sotalol 80 2020-0 Yes 80mg Take 80 mg U nivers mg tablet 1-16 by mouth ity of 00:00: every 12 [place] [address] (twelve) Medical hours. Branch sotalol 80 2020-0 Yes 80mg Take 80 mg U nivers mg tablet 1-16 by mouth ity of 00:00: every 12 [place] 00 (twelve) Medical hours. Branch sotalol 80 2020-0 Yes 80mg Take 80 mg U nivers mg tablet 1-16 by mouth ity of 00:00: every 12 [place] 00 (twelve) Medical hours. Branch sotalol 80 2020-0 Yes 80mg Take 80 mg U nivers mg tablet 1-16 by mouth ity of 00:00: every 12 [place] [address] (twelve) Medical hours. Branch sotalol 80 2020-0 Yes 80mg Take 80 mg U nivers mg tablet 1-16 by mouth ity of 00:00: every 12 [place] 00 (twelve) Medical hours. Branch sotalol 80 2020-0 Yes 80mg Take 80 mg U nivers mg tablet 1-16 by mouth ity of 00:00: every 12 [place] 00 (twelve) Medical hours. Branch sotalol 80 2020-0 Yes 80mg Take 80 mg U nivers mg tablet 1-16 by mouth ity of 00:00: every 12 [place] 00 (twelve) Medical hours. Branch sotalol 80 2020-0 Yes 80mg Take 80 mg U nivers mg tablet 1-16 by mouth ity of 00:00: every 12 [place] 00 (twelve) Medical hours. Branch sotalol 80 2020-0 Yes 80mg Take 80 mg U nivers mg tablet 1-16 by mouth ity of 00:00: every 12 [place] 00 (twelve) Medical hours. Branch sotalol 80 2020-0 Yes 80mg Take 80 mg U nivers mg tablet 1-16 by mouth ity of 00:00: every 12 [place] 00 (twelve) Medical hours. Branch sotalol 80 2020-0 Yes 80mg Take 80 mg U nivers mg tablet 1-16 by mouth ity of 00:00: every 12 [place] 00 (twelve) Medical hours. Branch sotalol 80 2020-0 Yes 80mg Take 80 mg U nivers mg tablet 1-16 by mouth ity of 00:00: every 12 [place] 00 (twelve) Medical hours. Branch sotalol 80 2020-0 Yes 80mg Take 80 mg U nivers mg tablet 1-16 by mouth ity of 00:00: every 12 [place] 00 (twelve) Medical hours. Branch sotalol 80 2020-0 Yes 80mg Take 80 mg U nivers mg tablet 1-16 by mouth ity of 00:00: every 12 [place] 00 (twelve) Medical hours. Branch sotalol 80 2020-0 Yes 80mg Take 80 mg U nivers mg tablet 1-16 by mouth ity of 00:00: every 12 [place] 00 (twelve) Medical hours. Branch sotalol 80 2020-0 Yes 80mg Take 80 mg U nivers mg tablet 1-16 by mouth ity of 00:00: every 12 [place] 00 (twelve) Medical hours. Branch sotalol 80 2020-0 Yes Univers mg tablet 1-16 ity of 00:00: [place] 00 Medical Branch sotalol 80 2020-0 Yes Univers mg tablet 1-16 ity of 00:00: [place] 00 Medical Branch sotalol 80 2020-0 Yes 80mg Take 80 mg U nivers mg tablet 1-16 by mouth ity of 00:00: every 12 [place] 00 (twelve) Medical hours. Branch sotalol 80 2020-0 Yes 80mg Take 80 mg U nivers mg tablet 1-16 by mouth ity of 00:00: every 12 [place] 00 (twelve) Medical hours. Branch sotalol 80 2020-0 Yes 80mg Take 80 mg U nivers mg tablet 1-16 by mouth ity of 00:00: every 12 [place] 00 (twelve) Medical hours. Branch sotalol 80 2020-0 Yes 80mg Take 80 mg U nivers mg tablet 1-16 by mouth ity of 00:00: every 12 [place] 00 (twelve) Medical hours. Branch sotalol 80 2020-0 Yes 80mg Take 80 mg U nivers mg tablet 1-16 by mouth ity of 00:00: every 12 [place] [address] (twelve) Medical hours. Branch sotalol 80 2020-0 Yes 80mg Take 80 mg U nivers mg tablet 1-16 by mouth ity of 00:00: every 12 [place] 00 (twelve) Medical hours. Branch sotalol 80 2020-0 Yes 80mg Take 80 mg U nivers mg tablet 1-16 by mouth ity of 00:00: every 12 [place] 00 (twelve) Medical hours. Branch sotalol 80 2020-0 Yes 80mg Take 80 mg U nivers mg tablet 1-16 by mouth ity of 00:00: every 12 [place] 00 (twelve) Medical hours. Branch sotalol 80 2020-0 Yes 80mg Take 80 mg U nivers mg tablet 1-16 by mouth ity of 00:00: every 12 [place] 00 (twelve) Medical hours. Branch sotalol 80 2020-0 Yes 80mg Take 80 mg U nivers mg tablet 1-16 by mouth ity of 00:00: every 12 [place] 00 (twelve) Medical hours. Branch sotalol 80 2020-0 Yes 80mg Take 80 mg U nivers mg tablet 1-16 by mouth ity of 00:00: every 12 [place] 00 (twelve) Medical hours. Branch sotalol 80 2020-0 Yes 80mg Take 80 mg U nivers mg tablet 1-16 by mouth ity of 00:00: every 12 [place] 00 (twelve) Medical hours. Branch sotalol 80 2020-0 Yes 80mg Take 80 mg U nivers mg tablet 1-16 by mouth ity of 00:00: every 12 [place] 00 (twelve) Medical hours. Branch sotalol 80 2020-0 Yes 80mg Take 80 mg U nivers mg tablet 1-16 by mouth ity of 00:00: every 12 [place] 00 (twelve) Medical hours. Branch sotalol 80 2020-0 Yes 80mg Take 80 mg U nivers mg tablet 1-16 by mouth ity of 00:00: every 12 [place] 00 (twelve) Medical hours. Branch sotalol 80 2020-0 Yes 80mg Take 80 mg U nivers mg tablet 1-16 by mouth ity of 00:00: every 12 [place] 00 (twelve) Medical hours. Branch sotalol 80 2020-0 Yes 80mg Take 80 mg U nivers mg tablet 1-16 by mouth ity of 00:00: every 12 [place] 00 (twelve) Medical hours. Branch sotalol 80 2020-0 Yes 80mg Take 80 mg U nivers mg tablet 1-16 by mouth ity of 00:00: every 12 [place] 00 (twelve) Medical hours. Branch sotalol 80 2020-0 Yes 80mg Take 80 mg U nivers mg tablet 1-16 by mouth ity of 00:00: every 12 [place] 00 (twelve) Medical hours. Branch sotalol 80 2020-0 Yes 80mg Take 80 mg U nivers mg tablet 1-16 by mouth ity of 00:00: every 12 [place] 00 (twelve) Medical hours. Branch sotalol 80 2020-0 Yes 80mg Take 80 mg U nivers mg tablet 1-16 by mouth ity of 00:00: every 12 [place] 00 (twelve) Medical hours. Branch sotalol 80 2020-0 Yes 80mg Take 80 mg U nivers mg tablet 1-16 by mouth ity of 00:00: every 12 [place] 00 (twelve) Medical hours. Branch sotalol 80 2020-0 Yes 80mg Take 80 mg U nivers mg tablet 1-16 by mouth ity of 00:00: every 12 [place] 00 (twelve) Medical hours. Branch sotalol 80 2020-0 Yes 80mg Take 80 mg U nivers mg tablet 1-16 by mouth ity of 00:00: every 12 [place] [address] (twelve) Medical hours. Branch sotalol 80 2020-0 Yes 80mg Take 80 mg U nivers mg tablet 1-16 by mouth ity of 00:00: every 12 [place] [address] (twelve) Medical hours. Branch sotalol 80 2020-0 Yes 80mg Take 80 mg U nivers mg tablet 1-16 by mouth ity of 00:00: every 12 [place] [address] (twelve) Medical hours. Branch sotalol 80 2020-0 Yes 80mg Take 80 mg U nivers mg tablet 1-16 by mouth ity of 00:00: every 12 [place] [address] (twelve) Medical hours. Branch sotalol 80 2020-0 Yes 80mg Take 80 mg U nivers mg tablet 1-16 by mouth ity of 00:00: every 12 [place] [address] (twelve) Medical hours. Branch sotalol 80 2020-0 Yes 80mg Take 80 mg U nivers mg tablet 1-16 by mouth ity of 00:00: every 12 [place] [address] (twelve) Medical hours. Branch sotalol 80 2020-0 Yes 80mg Take 80 mg U nivers mg tablet 1-16 by mouth ity of 00:00: every 12 [place] [address] (twelve) Medical hours. Branch sotalol 80 2020-0 Yes 80mg Take 80 mg U nivers mg tablet 1-16 by mouth ity of 00:00: every 12 [place] [address] (twelve) Medical hours. Branch sotalol 80 2020-0 Yes 80mg Take 80 mg U nivers mg tablet 1-16 by mouth ity of 00:00: every 12 [place] [address] (twelve) Medical hours. Branch sotalol 80 2020-0 Yes 80mg Take 80 mg U nivers mg tablet 1-16 by mouth ity of 00:00: every 12 [place] [address] (twelve) Medical hours. Branch sotalol 80 2020-0 Yes 80mg Take 80 mg U nivers mg tablet 1-16 by mouth ity of 00:00: every 12 [place] [address] (twelve) Medical hours. Branch butorphanol 2019-1 Yes USE 1 Unive rs 10 mg/mL 2-20 SPRAY IN ity of nasal spray 00:00: ONE [place] [address] NOSTRIL Medical EVERY 8 Branch HOURS NEEDED FOR HEADACHE butorphanol 2019- Yes USE 1 Unive rs 10 mg/mL 2-20 SPRAY IN ity of nasal spray 00:00: ONE [place] [address] NOSTRIL Medical EVERY 8 Branch HOURS NEEDED FOR HEADACHE butorphanol 2018-02 Yes USE 1 Unive rs 10 mg/mL 2-20 SPRAY IN ity of nasal spray 00:00: ONE [place] NOSTRIL Medical EVERY 8 Branch HOURS NEEDED FOR HEADACHE butorphanol 2018-02 Yes USE 1 Unive rs 10 mg/mL 2-20 SPRAY IN ity of nasal spray 00:00: ONE [place] [address] NOSTRIL Medical EVERY 8 Branch HOURS NEEDED FOR HEADACHE butorphanol 2018-02 Yes USE 1 Unive rs 10 mg/mL 2-20 SPRAY IN ity of nasal spray 00:00: ONE [place] NOSTRIL Medical EVERY 8 Branch HOURS NEEDED FOR HEADACHE butorphanol 2018-02 2020- No USE 1 Univ ers 10 mg/mL 2-20 02-07 SPRAY IN ity of nasal spray 00:00: 00:00 ONE [place] 00 :00 NOSTRIL Medical EVERY 8 Branch HOURS NEEDED FOR HEADACHE butorphanol 2018- 2020- No USE 1 Univ ers 10 mg/mL 2-20 02-07 SPRAY IN ity of nasal spray 00:00: 00:00 ONE [place] 00 :00 NOSTRIL Medical EVERY 8 Branch HOURS NEEDED FOR HEADACHE pantoprazol 2018-02 Yes 40mg Take 40 mg Univers e 40 mg EC 2-17 by mouth ity o f tablet 00:00: daily. [address] pantoprazol 2018-02 Yes 40mg Take 40 mg Univers e 40 mg EC 2-17 by mouth ity o f tablet 00:00: daily. [address] pantoprazol 2018- Yes 40mg Take 40 mg Univers e 40 mg EC 2-17 by mouth ity o f tablet 00:00: daily. [address] pantoprazol 2018- Yes 40mg Take 40 mg Univers e 40 mg EC 2-17 by mouth ity o f tablet 00:00: daily. [address] pantoprazol 2018- Yes 40mg Take 40 mg Univers e 40 mg EC 2-17 by mouth ity o f tablet 00:00: daily. [address] pantoprazol 2018-02 Yes 40mg Take 40 mg Univers e 40 mg EC 2-17 by mouth ity o f tablet 00:00: daily. [address] pantoprazol 2018- Yes 40mg Take 40 mg Univers e 40 mg EC 2-17 by mouth ity o f tablet 00:00: daily. [place] [facility] pantoprazol 2018-02 Yes 40mg Take 40 mg Univers e 40 mg EC 2-17 by mouth ity o f tablet 00:00: daily. [place] [facility] pantoprazol 2018-02 Yes 40mg Take 40 mg Univers e 40 mg EC 2-17 by mouth ity o f tablet 00:00: daily. [place] [facility] pantoprazol 2018-02 Yes 40mg Take 40 mg Univers e 40 mg EC 2-17 by mouth ity o f tablet 00:00: daily. [place] [facility] pantoprazol 2018-02 Yes 40mg Take 40 mg Univers e 40 mg EC 2-17 by mouth ity o f tablet 00:00: daily. [place] [facility] pantoprazol 2018-02 Yes 40mg Take 40 mg Univers e 40 mg EC 2-17 by mouth ity o f tablet 00:00: daily. [place] [facility] pantoprazol 2018-02 Yes 40mg Take 40 mg Univers e 40 mg EC 2-17 by mouth ity o f tablet 00:00: daily. [place] [facility] pantoprazol 2018-02 Yes 40mg Take 40 mg Univers e 40 mg EC 2-17 by mouth ity o f tablet 00:00: daily. [place] [facility] pantoprazol 2018-02 Yes 40mg Take 40 mg Univers e 40 mg EC 2-17 by mouth ity o f tablet 00:00: daily. [place] [facility] pantoprazol 2018-02 Yes 40mg Take 40 mg Univers e 40 mg EC 2-17 by mouth ity o f tablet 00:00: daily. [address] pantoprazol 2018-02 Yes 40mg Take 40 mg Univers e 40 mg EC 2-17 by mouth ity o f tablet 00:00: daily. [place] [facility] pantoprazol 2018-02 Yes 40mg Take 40 mg Univers e 40 mg EC 2-17 by mouth ity o f tablet 00:00: daily. [place] [facility] pantoprazol 2018-02 Yes 40mg Take 40 mg Univers e 40 mg EC 2-17 by mouth ity o f tablet 00:00: daily. [address] pantoprazol 2018-02 Yes 40mg Take 40 mg Univers e 40 mg EC 2-17 by mouth ity o f tablet 00:00: daily. [address] pantoprazol 2018-02 Yes 40mg Take 40 mg Univers e 40 mg EC 2-17 by mouth ity o f tablet 00:00: daily. [place] [facility] pantoprazol 2018-02 Yes 40mg Take 40 mg Univers e 40 mg EC 2-17 by mouth ity o f tablet 00:00: daily. [place] [facility] pantoprazol 2018-02 Yes 40mg Take 40 mg Univers e 40 mg EC 2-17 by mouth ity o f tablet 00:00: daily. [place] [facility] pantoprazol 2018-02 Yes 40mg Take 40 mg Univers e 40 mg EC 2-17 by mouth ity o f tablet 00:00: daily. [place] [facility] pantoprazol 2018-02 Yes 40mg Take 40 mg Univers e 40 mg EC 2-17 by mouth ity o f tablet 00:00: daily. [address] pantoprazol 2018-02 Yes 40mg Take 40 mg Univers e 40 mg EC 2-17 by mouth ity o f tablet 00:00: daily. [address] pantoprazol 2018-02 Yes 40mg Take 40 mg Univers e 40 mg EC 2-17 by mouth ity o f tablet 00:00: daily. [address] pantoprazol 2018-02 Yes 40mg Take 40 mg Univers e 40 mg EC 2-17 by mouth ity o f tablet 00:00: daily. [address] pantoprazol 2018-02 Yes 40mg Take 40 mg Univers e 40 mg EC 2-17 by mouth ity o f tablet 00:00: daily. [address] pantoprazol 2018-02 Yes 40mg Take 40 mg Univers e 40 mg EC 2-17 by mouth ity o f tablet 00:00: daily. [address] pantoprazol 2018-02 Yes 40mg Take 40 mg Univers e 40 mg EC 2-17 by mouth ity o f tablet 00:00: daily. [address] pantoprazol 2018-02 Yes 40mg Take 40 mg Univers e 40 mg EC 2-17 by mouth ity o f tablet 00:00: daily. [address] pantoprazol 2018-02 Yes 40mg Take 40 mg Univers e 40 mg EC 2-17 by mouth ity o f tablet 00:00: daily. [address] pantoprazol 2018-02 Yes 40mg Take 40 mg Univers e 40 mg EC 2-17 by mouth ity o f tablet 00:00: daily. [place] [facility] pantoprazol 2018-02 Yes 40mg Take 40 mg Univers e 40 mg EC 2-17 by mouth ity o f tablet 00:00: daily. [place] [facility] pantoprazol 2018-02 Yes 40mg Take 40 mg Univers e 40 mg EC 2-17 by mouth ity o f tablet 00:00: daily. [place] [facility] pantoprazol 2018-02 Yes 40mg Take 40 mg Univers e 40 mg EC 2-17 by mouth ity o f tablet 00:00: daily. [place] [facility] pantoprazol 2018-02 Yes 40mg Take 40 mg Univers e 40 mg EC 2-17 by mouth ity o f tablet 00:00: daily. [place] [facility] pantoprazol 2018-02 Yes 40mg Take 40 mg Univers e 40 mg EC 2-17 by mouth ity o f tablet 00:00: daily. [place] [facility] pantoprazol 2018-02 Yes 40mg Take 40 mg Univers e 40 mg EC 2-17 by mouth ity o f tablet 00:00: daily. [place] [facility] pantoprazol 2018-02 Yes 40mg Take 40 mg Univers e 40 mg EC 2-17 by mouth ity o f tablet 00:00: daily. [place] [facility] pantoprazol 2018-02 Yes 40mg Take 40 mg Univers e 40 mg EC 2-17 by mouth ity o f tablet 00:00: daily. [place] [facility] pantoprazol 2018-02 Yes 40mg Take 40 mg Univers e 40 mg EC 2-17 by mouth ity o f tablet 00:00: daily. [place] [facility] pantoprazol 2018-02 Yes 40mg Take 40 mg Univers e 40 mg EC 2-17 by mouth ity o f tablet 00:00: daily. [place] [facility] pantoprazol 2018-02 Yes 40mg Take 40 mg Univers e 40 mg EC 2-17 by mouth ity o f tablet 00:00: daily. [place] [facility] pantoprazol 2018-02 Yes 40mg Take 40 mg Univers e 40 mg EC 2-17 by mouth ity o f tablet 00:00: daily. [address] pantoprazol 2018-02 Yes 40mg Take 40 mg Univers e 40 mg EC 2-17 by mouth ity o f tablet 00:00: daily. [address] pantoprazol 2018-02 Yes 40mg Take 40 mg Univers e 40 mg EC 2-17 by mouth ity o f tablet 00:00: daily. [place] [facility] pantoprazol 2018-02 Yes 40mg Take 40 mg Univers e 40 mg EC 2-17 by mouth ity o f tablet 00:00: daily. [place] [facility] pantoprazol 2018-02 Yes 40mg Take 40 mg Univers e 40 mg EC 2-17 by mouth ity o f tablet 00:00: daily. [place] [facility] pantoprazol 2018-02 Yes 40mg Take 40 mg Univers e 40 mg EC 2-17 by mouth ity o f tablet 00:00: daily. [place] [facility] pantoprazol 2018-02 Yes 40mg Take 40 mg Univers e 40 mg EC 2-17 by mouth ity o f tablet 00:00: daily. [place] [facility] pantoprazol 2018-02 Yes 40mg Take 40 mg Univers e 40 mg EC 2-17 by mouth ity o f tablet 00:00: daily. [place] [facility] pantoprazol 2018-02 Yes 40mg Take 40 mg Univers e 40 mg EC 2-17 by mouth ity o f tablet 00:00: daily. [place] [facility] pantoprazol 2018-02 Yes 40mg Take 40 mg Univers e 40 mg EC 2-17 by mouth ity o f tablet 00:00: daily. [place] [facility] busPIRone 5 2018-02 Yes [id number] TAKE 1 Univers mg tablet 0- 9102 TABLET BY ity o f 00:00: MOUTH TWICE A Medical DAY Branch busPIRone 5 2018-02 Yes [id number] TAKE 1 Univers mg tablet 0- 9102 TABLET BY ity o f 00:00: MOUTH TWICE A Medical DAY Branch busPIRone 5 2018-02 Yes [id number] TAKE 1 Univers mg tablet 0- 9102 TABLET BY ity o f 00:00: MOUTH TWICE A Medical DAY Branch busPIRone 5 2018-02 Yes [id number] TAKE 1 Univers mg tablet 0-01 9102 TABLET BY ity o f 00:00: MOUTH TWICE A Medical DAY Branch busPIRone 5 2018-02 Yes [id number] TAKE 1 Univers mg tablet 0- 9102 TABLET BY ity o f 00:00: MOUTH TWICE A Medical DAY Branch busPIRone 5 2018-02 Yes [id number] TAKE 1 Univers mg tablet 0-02 TABLET BY ity o f 00:00: MOUTH 00 TWICE A Medical DAY Branch busPIRone 5 2018-02 Yes [id number] TAKE 1 Univers mg tablet 0-02 TABLET BY ity o f 00:00: MOUTH [place] 00 TWICE A Medical DAY Branch busPIRone 5 2018-02 Yes [id number] TAKE 1 Univers mg tablet 0-02 TABLET BY ity o f 00:00: MOUTH [place] 00 TWICE A Medical DAY Branch busPIRone 5 2018-02 Yes [id number] TAKE 1 Univers mg tablet 0-02 TABLET BY ity o f 00:00: MOUTH 00 TWICE A Medical DAY Branch busPIRone 5 2018-02 Yes [id number] TAKE 1 Univers mg tablet 0-02 TABLET BY ity o f 00:00: MOUTH 00 TWICE A Medical DAY Branch busPIRone 5 2018-02 Yes [id number] TAKE 1 Univers mg tablet 0-9101 TABLET BY ity o f 00:00: MOUTH 00 TWICE A Medical DAY Branch busPIRone 5 2018-02 Yes [id number] TAKE 1 Univers mg tablet 0-02 TABLET BY ity o f 00:00: MOUTH 00 TWICE A Medical DAY Branch busPIRone 5 2018-02 Yes [id number] TAKE 1 Univers mg tablet 0-02 TABLET BY ity o f 00:00: MOUTH 00 TWICE A Medical DAY Branch busPIRone 5 2018-02 2020- No [id number] TAKE 1 Univers mg tablet 0-04-1902 TABLET BY ity of 00:00: 00:00 MOUTH [place] 00 :00 TWICE A Medical DAY Branch BUSPIRONE 5 Yes [id number] TAKE 1 Univers mg tablet 09-0802 TABLET BY ity o f 00:00: MOUTH 00 TWICE A Medical DAY Branch butorphanol 2018- Yes [id number] 1{spray Use 1 Univers 10 mg/mL 08-21 } [place] in ity of nasal spray 00:00: each 00 nostril Medical every 8 Branch (eight) hours as needed for Pain. insulin 2018- Yes 60U inject 60 Unive rs detemir [...] the ity of human, 100 18:55: skin. [place] unit/mL 56 Medical injection Branch insulin 0 [...] the ity of human, 100 18:55: skin. [place] unit/mL 56 Medical injection Branch insulin 0 Yes 60U inject 60 Unive rs detemir 5-14 Units ity of U-100 100 18:55: under the [place] unit/mL 56 skin. Medical injection Branch insulin 0 Yes inject Univers lispro, 5-14 under the ity of human, 100 18:55: skin. [place] unit/mL 56 Medical injection Branch insulin 2018-0 Yes 60U inject 60 Unive rs detemir 5-14 Units ity of U-100 100 18:55: under the [place] unit/mL 56 skin. Medical injection Branch insulin 0 Yes inject Univers lispro, 5-14 under the ity of human, 100 18:55: skin. [place] unit/mL 56 Medical injection Branch insulin 0 Yes 60U inject 60 Unive rs detemir 5-14 Units ity of U-100 100 18:55: under the [place] unit/mL 56 skin. Medical injection Branch insulin 0 Yes inject Univers lispro, 5-14 under the ity of human, 100 18:55: skin. [place] unit/mL 56 Medical injection Branch insulin 0 Yes 60U inject 60 Unive rs detemir 5-14 Units ity of U-100 100 18:55: under the [place] unit/mL 56 skin. Medical injection Branch insulin 0 Yes inject Univers lispro, 5-14 under the ity of human, 100 18:55: skin. [place] unit/mL 56 Medical injection Branch pregabalin 0 Yes 300mg Take 300 Un osbaldo 300 mg 5-14 mg by ity of capsule 17:05: mouth. [address] hydrALAZINE 0 Yes 50mg Take 50 mg Univers 50 mg 5-14 by mouth. ity of tablet 17:05: [address] losartan-hy 0 Yes Take by Uni vers drochloroth 5-14 mouth. ity of iazide 17:05: [place] [address] [facility] Medical per tablet [place] carvedilol 0 Yes 25mg Take 25 mg U nivers 12.5 mg 5-14 by mouth. ity of tablet 17:05: [address] acetaminoph 0 Yes 500mg Take 500 [...] mg by ity of capsule 17:05: mouth. [address] Branch hydrALAZINE 2018-0 Yes 50mg Take 50 mg Univers 50 mg 5-14 by mouth. ity of tablet 17:05: [address] losartan-hy 2019-0 Yes Take by Uni vers drochloroth 5-14 mouth. ity of iazide 17:05: [place] 100-25 mg 39 Medical per tablet Branch carvedilol 2018-0 Yes 25mg Take 25 mg U nivers 12.5 mg 5-14 by mouth. ity of tablet 17:05: [address] Branch acetaminoph 2018-0 Yes 500mg Take [...] 17:05: mouth. [place] 39 Medical Branch hydrALAZINE Yes 50mg Take 50 mg Univers 50 mg 5-14 by mouth. ity of tablet 17:05: [address] Branch losartan-hy 0 Yes Take by Uni vers drochloroth 5-14 mouth. ity of iazide 17:05: [place] 100-25 mg 39 Medical per tablet Branch carvedilol Yes 25mg Take 25 mg U nivers 12.5 mg 5-14 by mouth. ity of tablet 17:05: [address] Branch acetaminoph Yes 500mg Take 500 [...] mg by ity of capsule 17:05: mouth. [address] pregabalin Yes 300mg Take 300 Un osbaldo 300 mg 5-14 mg by ity of capsule 17:05: mouth. [address] hydrALAZINE Yes 50mg Take 50 mg Univers 50 mg 5-14 by mouth. ity of tablet 17:05: [address] Branch losartan-hy Yes Take by Uni vers drochloroth 5-14 mouth. ity of iazide 17:05: [place] 100-25 mg Medical per tablet Branch hydrALAZINE Yes 50mg Take 50 mg Univers 50 mg 5-14 by mouth. ity of tablet 17:05: [address] carvedilol Yes 25mg Take 25 mg U nivers 12.5 mg 5-14 by mouth. ity of tablet 17:05: [place] 39 Medical Branch acetaminoph 2019-0 Yes 500mg Take 500 [...] minutes as needed for Chest pain. losartan-hy 0 Yes Take by Uni vers drochloroth 5-14 mouth. ity of iazide 17:05: [place] 100-25 mg 39 Medical per tablet Branch pregabalin 0 Yes 300mg Take 300 Un osbaldo 300 mg 5-14 mg by ity of capsule 17:05: mouth. [address] Branch hydrALAZINE 0 Yes 50mg Take 50 mg Univers 50 mg 5-14 by mouth. ity of tablet 17:05: [address] Branch losartan-hy 0 Yes Take by Uni vers drochloroth 5-14 mouth. ity of iazide 17:05: [place] 100-25 mg 39 Medical per tablet Branch carvedilol 0 Yes 25mg Take 25 mg U nivers 12.5 mg 5-14 by mouth. ity of tablet 17:05: [address] Branch acetaminoph 0 Yes 500mg Take [...] mg by ity of capsule 17:05: mouth. [address] Branch hydrALAZINE 0 Yes 50mg Take 50 mg Univers 50 mg 5-14 by mouth. ity of tablet 17:05: [address] Branch losartan-hy 0 Yes Take by Uni vers drochloroth 5-14 mouth. ity of iazide 17:05: [place] 100-25 mg 39 Medical per tablet Branch carvedilol 2018-0 Yes 25mg Take 25 mg U nivers 12.5 mg 5-14 by mouth. ity of tablet 17:05: [address] Branch acetaminoph 0 Yes 500mg Take [...] minutes as needed for Chest pain. carvedilol 2018-0 Yes 25mg Take 25 mg U nivers 12.5 mg 5-14 by mouth. ity of tablet 17:05: [address] Branch pregabalin 2018-0 Yes 300mg Take 300 Un osbaldo 300 mg 5-14 mg by ity of capsule 17:05: mouth. [address] hydrALAZINE 0 Yes 50mg Take 50 mg Univers 50 mg 5-14 by mouth. ity of tablet 17:05: [address] Branch losartan-hy 0 Yes Take by Uni vers drochloroth 5-14 mouth. ity of iazide 17:05: [place] 100-25 mg 39 Medical per tablet Branch [...] mg by ity of capsule 17:05: mouth. [address] Branch hydrALAZINE 2018-0 Yes 50mg Take 50 mg Univers 50 mg 5-14 by mouth. ity of tablet 17:05: [address] Branch losartan-hy 2018-0 Yes Take by Uni vers drochloroth 5-14 mouth. ity of iazide 17:05: [...] mg by ity of capsule 17:05: mouth. [address] Branch hydrALAZINE 0 Yes 50mg Take 50 mg Univers 50 mg 5-14 by mouth. ity of tablet 17:05: [address] Branch losartan-hy 0 Yes Take by Uni vers drochloroth 5-14 mouth. ity of iazide 17:05: [place] 100-25 mg 39 Medical per tablet Branch carvedilol Yes 25mg Take 25 mg U nivers 12.5 mg 5-14 by mouth. ity of tablet 17:05: [address] Branch acetaminoph Yes 500mg Take 500 [...] mg by ity of capsule 17:05: mouth. [address] hydrALAZINE Yes 50mg Take 50 mg Univers 50 mg 5-14 by mouth. ity of tablet 17:05: [address] losartan-hy Yes Take by Uni vers drochloroth 5-14 mouth. ity of iazide 17:05: [place] 100-25 mg 39 Medical per tablet Branch carvedilol 0 Yes 25mg Take 25 mg U nivers 12.5 mg 5-14 by mouth. ity of tablet 17:05: [address] Branch acetaminoph Yes 500mg Take 500 [...] minutes as needed for Chest pain. pregabalin 20190 Yes 300mg Take 300 Un osbaldo 300 mg 5-14 mg by ity of capsule 17:05: mouth. [address] Branch hydrALAZINE 0 Yes 50mg Take 50 mg Univers 50 mg 5-14 by mouth. ity of tablet 17:05: [address] losartan-hy 0 Yes Take by Uni vers drochloroth 5-14 mouth. ity of iazide 17:05: [place] 100-25 mg 39 Medical per tablet Branch carvedilol 0 Yes 25mg Take 25 mg U nivers 12.5 mg 5-14 by mouth. ity of tablet 17:05: [address] Branch acetaminoph 0 Yes 500mg Take 500 U nivers en (TYLENOL 5-14 mg by ity of EXTRA 17:05: mouth [place] STRENGTH) 39 every 6 Medical 500 mg (six) Branch tablet hours as needed for Pain. aspirin-nhi 2018-0 Yes 1{tbl} Take 1 Un osbaldo taminophen- 5-14 tablet by ity of caffeine 17:05: mouth [place] (EXCEDRIN 39 every 6 Medical MIGRAINE) (six) [...] mg by ity of capsule 17:05: mouth. [address] hydrALAZINE 2018-0 Yes 50mg Take 50 mg Univers 50 mg 5-14 by mouth. ity of tablet 17:05: [place] [address] Medical Branch losartan-hy 2018-0 Yes Take by Uni vers drochloroth 5-14 mouth. ity of iazide 17:05: [place] 100-25 mg 39 Medical per tablet Branch carvedilol 0 Yes 25mg Take 25 mg U nivers 12.5 mg 5-14 by mouth. ity of tablet 17:05: [address] Branch acetaminoph 0 Yes 500mg Take [...] for Chest pain. busPIRone 5 2019- No [id number] 5mg Take 1 Univers mg tablet 06-27 tablet by ity of 00:00: 00:00 mouth 2 [place] 00 :00 (two) Medical times Branch daily. methIMAzole Yes 10mg Take 10 mg Univers 10 mg 4-24 by mouth ity of tablet 00:00: daily. [address] methIMAzole Yes 10mg Take 10 mg Univers 10 mg 4-24 by mouth ity of tablet 00:00: daily. [address] methIMAzole Yes 10mg Take 10 mg Univers 10 mg 4-24 by mouth ity of tablet 00:00: daily. [address] methIMAzole 0 Yes 10mg Take 10 mg Univers 10 mg 4-24 by mouth ity of tablet 00:00: daily. [address] methIMAzole Yes 10mg Take 10 mg Univers 10 mg 4-24 by mouth ity of tablet 00:00: daily. [address] methIMAzole 2019-0 Yes 10mg Take 10 mg Univers 10 mg 4-24 by mouth ity of tablet 00:00: daily. [place] [facility] methIMAzole 2019-0 Yes 10mg Take 10 mg Univers 10 mg 4-24 by mouth ity of tablet 00:00: daily. [place] [facility] methIMAzole 2019-0 Yes 10mg Take 10 mg Univers 10 mg 4-24 by mouth ity of tablet 00:00: daily. [place] [facility] methIMAzole 2019-0 Yes 10mg Take 10 mg Univers 10 mg 4-24 by mouth ity of tablet 00:00: daily. [place] [facility] methIMAzole 2019-0 Yes 10mg Take 10 mg Univers 10 mg 4-24 by mouth ity of tablet 00:00: daily. [place] [facility] methIMAzole 2019-0 Yes 10mg Take 10 mg Univers 10 mg 4-24 by mouth ity of tablet 00:00: daily. [place] [facility] methIMAzole 2019-0 Yes 10mg Take 10 mg Univers 10 mg 4-24 by mouth ity of tablet 00:00: daily. [place] [facility] methIMAzole 2019-0 Yes 10mg Take 10 mg Univers 10 mg 4-24 by mouth ity of tablet 00:00: daily. [place] [facility] methIMAzole 2019-0 Yes 10mg Take 10 mg Univers 10 mg 4-24 by mouth ity of tablet 00:00: daily. [place] [facility] methIMAzole 2019-0 Yes 10mg Take 10 mg Univers 10 mg 4-24 by mouth ity of tablet 00:00: daily. [place] [facility] methIMAzole 2019-0 Yes 10mg Take 10 mg Univers 10 mg 4-24 by mouth ity of tablet 00:00: daily. [place] [facility] methIMAzole 2019-0 Yes 10mg Take 10 mg Univers 10 mg 4-24 by mouth ity of tablet 00:00: daily. [place] [facility] methIMAzole 2019-0 Yes 10mg Take 10 mg Univers 10 mg 4-24 by mouth ity of tablet 00:00: daily. [place] [facility] methIMAzole 2019-0 Yes 10mg Take 10 mg Univers 10 mg 4-24 by mouth ity of tablet 00:00: daily. [place] [facility] methIMAzole 2019-0 Yes 10mg Take 10 mg Univers 10 mg 4-24 by mouth ity of tablet 00:00: daily. [facility] methIMAzole 2019-0 Yes 10mg Take 10 mg Univers 10 mg 4-24 by mouth ity of tablet 00:00: daily. [facility] methIMAzole 2019-0 Yes 10mg Take 10 mg Univers 10 mg 4-24 by mouth ity of tablet 00:00: daily. [facility] methIMAzole 2019-0 Yes 10mg Take 10 mg Univers 10 mg 4-24 by mouth ity of tablet 00:00: daily. [facility] methIMAzole 2019-0 Yes 10mg Take 10 mg Univers 10 mg 4-24 by mouth ity of tablet 00:00: daily. [place] [facility] methIMAzole 2019-0 Yes 10mg Take 10 mg Univers 10 mg 4-24 by mouth ity of tablet 00:00: daily. [place] [facility] methIMAzole 2019-0 Yes 10mg Take 10 mg Univers 10 mg 4-24 by mouth ity of tablet 00:00: daily. [place] [facility] methIMAzole 2019-0 Yes 10mg Take 10 mg Univers 10 mg 4-24 by mouth ity of tablet 00:00: daily. [place] [facility] methIMAzole 2019-0 Yes 10mg Take 10 mg Univers 10 mg 4-24 by mouth ity of tablet 00:00: daily. [place] [facility] methIMAzole 2019-0 Yes 10mg Take 10 mg Univers 10 mg 4-24 by mouth ity of tablet 00:00: daily. [place] [facility] methIMAzole 2019-0 Yes 10mg Take 10 mg Univers 10 mg 4-24 by mouth ity of tablet 00:00: daily. [place] [facility] methIMAzole 2019-0 Yes 10mg Take 10 mg Univers 10 mg 4-24 by mouth ity of tablet 00:00: daily. [place] [facility] methIMAzole 2019-0 Yes 10mg Take 10 mg Univers 10 mg 4-24 by mouth ity of tablet 00:00: daily. [place] [facility] methIMAzole 2019-0 Yes 10mg Take 10 mg Univers 10 mg 4-24 by mouth ity of tablet 00:00: daily. [place] [facility] methIMAzole 2019-0 Yes 10mg Take 10 mg Univers 10 mg 4-24 by mouth ity of tablet 00:00: daily. [facility] methIMAzole 2019-0 Yes 10mg Take 10 mg Univers 10 mg 4-24 by mouth ity of tablet 00:00: daily. [facility] methIMAzole 2019-0 Yes 10mg Take 10 mg Univers 10 mg 4-24 by mouth ity of tablet 00:00: daily. [place] [facility] methIMAzole 2019-0 Yes 10mg Take 10 mg Univers 10 mg 4-24 by mouth ity of tablet 00:00: daily. [facility] methIMAzole 2019-0 Yes 10mg Take 10 mg Univers 10 mg 4-24 by mouth ity of tablet 00:00: daily. [place] [facility] methIMAzole 2019-0 Yes 10mg Take 10 mg Univers 10 mg 4-24 by mouth ity of tablet 00:00: daily. [place] [facility] methIMAzole 2019-0 Yes 10mg Take 10 mg Univers 10 mg 4-24 by mouth ity of tablet 00:00: daily. [place] [facility] methIMAzole 2019-0 Yes 10mg Take 10 mg Univers 10 mg 4-24 by mouth ity of tablet 00:00: daily. [place] [facility] methIMAzole 2019-0 Yes 10mg Take 10 mg Univers 10 mg 4-24 by mouth ity of tablet 00:00: daily. [place] [facility] methIMAzole 2019-0 Yes 10mg Take 10 mg Univers 10 mg 4-24 by mouth ity of tablet 00:00: daily. [place] [facility] methIMAzole 2019-0 Yes 10mg Take 10 mg Univers 10 mg 4-24 by mouth ity of tablet 00:00: daily. [place] [facility] methIMAzole 2019-0 Yes 10mg Take 10 mg Univers 10 mg 4-24 by mouth ity of tablet 00:00: daily. [place] [facility] methIMAzole 2019-0 Yes 10mg Take 10 mg Univers 10 mg 4-24 by mouth ity of tablet 00:00: daily. [place] [facility] methIMAzole 2019-0 Yes 10mg Take 10 mg Univers 10 mg 4-24 by mouth ity of tablet 00:00: daily. [place] [facility] methIMAzole 2019-0 Yes 10mg Take 10 mg Univers 10 mg 4-24 by mouth ity of tablet 00:00: daily. [place] [facility] methIMAzole 2019-0 Yes 10mg Take 10 mg Univers 10 mg 4-24 by mouth ity of tablet 00:00: daily. [facility] methIMAzole 2019-0 Yes 10mg Take 10 mg Univers 10 mg 4-24 by mouth ity of tablet 00:00: daily. [place] [facility] methIMAzole 2019-0 Yes 10mg Take 10 mg Univers 10 mg 4-24 by mouth ity of tablet 00:00: daily. [facility] methIMAzole 2018-0 Yes 10mg Take 10 mg Univers 10 mg 4-24 by mouth ity of tablet 00:00: daily. [place] [facility] methIMAzole 2018-0 Yes 10mg Take 10 mg Univers 10 mg 4-24 by mouth ity of tablet 00:00: daily. [place] [facility] methIMAzole 2018-0 Yes 10mg Take 10 mg Univers 10 mg 4-24 by mouth ity of tablet 00:00: daily. [place] [facility] methIMAzole 2018-0 Yes 10mg Take 10 mg Univers 10 mg 4-24 by mouth ity of tablet 00:00: daily. [place] [facility] methIMAzole 2018-0 Yes 10mg Take 10 mg Univers 10 mg 4-24 by mouth ity of tablet 00:00: daily. [place] [facility] methIMAzole 2018-0 Yes 10mg Take 10 mg Univers 10 mg 4-24 by mouth ity of tablet 00:00: daily. [place] [facility] methIMAzole 2018-0 Yes 10mg Take 10 mg Univers 10 mg 4-24 by mouth ity of tablet 00:00: daily. [place] [facility] methIMAzole 2018-0 Yes 10mg Take 10 mg Univers 10 mg 4-24 by mouth ity of tablet 00:00: daily. [place] [facility] methIMAzole 2019-0 Yes 10mg Take 10 mg Univers 10 mg 4-24 by mouth ity of tablet 00:00: daily. [place] [facility] methIMAzole 2019-0 Yes 10mg Take 10 mg Univers 10 mg 4-24 by mouth ity of tablet 00:00: daily. [place] [facility] methIMAzole 2019-0 Yes 10mg Take 10 mg Univers 10 mg 4-24 by mouth ity of tablet 00:00: daily. [place] [facility] methIMAzole 2018-0 Yes 10mg Take 10 [...] BY ity o f 00:00: 2 TIMES [place] DAY Medical Branch doxazosin 2 Yes TAKE 0.5 Un osbaldo mg tablet 4-22 TABLET BY ity o f 00:00: 2 TIMES [place] DAY Medical Branch doxazosin 2 Yes TAKE 0.5 Un osbaldo mg tablet 4-22 TABLET BY ity o f 00:00: 2 TIMES [place] DAY Medical Branch doxazosin 2 Yes TAKE 0.5 Un osbaldo mg tablet 4-22 TABLET BY ity o f 00:00: 2 TIMES [place] DAY Medical Branch doxazosin 2 Yes TAKE 0.5 Un osbaldo mg tablet 4-22 TABLET BY ity o f 00:00: 2 TIMES [place] DAY Medical Branch doxazosin 2 Yes TAKE 0.5 Un osbaldo mg tablet 4-22 TABLET BY ity o f 00:00: 2 TIMES [place] DAY Medical Branch doxazosin 2 Yes TAKE 0.5 Un osbalod mg tablet 4-22 TABLET BY ity o f 00:00: 2 TIMES [place] DAY Medical Branch doxazosin 2 Yes TAKE 0.5 Un osbaldo mg tablet 4-22 TABLET BY ity o f 00:00: 2 TIMES [place] DAY Medical Branch doxazosin 2 Yes TAKE 0.5 Un osbaldo mg tablet 4-22 TABLET BY ity o f 00:00: 2 TIMES [place] 00 EVERY DAY Medical Branch doxazosin 2 2018- Yes TAKE 0.5 Un osbaldo mg tablet 4-22 TABLET BY ity o f 00:00: 2 TIMES [place] EVERY DAY Medical Branch doxazosin 2 Yes TAKE 0.5 Un osbaldo mg tablet 4-22 TABLET BY ity o f 00:00: 2 TIMES [place] EVERY DAY Medical Branch doxazosin 2 Yes TAKE 0.5 Un osbaldo mg tablet 4-22 TABLET BY ity o f 00:00: 2 TIMES [place] EVERY DAY Medical Branch doxazosin 2 Yes TAKE 0.5 Un osbaldo mg tablet 4-22 TABLET BY ity o f 00:00: 2 TIMES [place] EVERY DAY Medical Branch doxazosin 2 Yes TAKE 0.5 Un osbaldo mg tablet 4-22 TABLET BY ity o f 00:00: 2 TIMES [place] EVERY DAY Medical Branch doxazosin 2 2020- No TAKE 0.5 U nivers mg tablet 4-22 03-06 TABLET BY ity of 00:00: 00:00 2 TIMES [place] 00 :00 EVERY DAY Medical Branch hydrALAZINE 2018-0 Yes TAKE 1 Univ ers 100 mg [...] TIMES A Branch DAY WITH FOOD hydrALAZINE 2018-0 Yes TAKE 1 Univ ers 100 mg 4-16 TABLET BY ity of tablet 00:00: MOUTH 00 THREE Medical TIMES A Branch DAY WITH FOOD hydrALAZINE 2019-0 Yes TAKE 1 Univ ers 100 mg 4-16 TABLET BY ity of tablet 00:00: [facility] THREE Medical TIMES A Branch DAY WITH FOOD hydrALAZINE 2019-0 Yes TAKE 1 Univ ers 100 mg 4-16 TABLET BY ity of tablet 00:00: [facility] 00 THREE Medical TIMES A Branch DAY WITH FOOD hydrALAZINE 2019-0 Yes TAKE 1 Univ ers 100 mg 4-16 TABLET BY ity of tablet 00:00: [facility] THREE Medical TIMES A Branch DAY WITH FOOD hydrALAZINE 2019-0 Yes TAKE 1 Univ ers 100 mg 4-16 TABLET BY ity of tablet 00:00: [facility] THREE Medical TIMES A Branch DAY WITH FOOD hydrALAZINE 2019-0 Yes TAKE 1 Univ ers 100 mg 4-16 TABLET BY ity of tablet 00:00: [facility] THREE Medical TIMES A Branch DAY WITH FOOD hydrALAZINE 2019-0 Yes TAKE 1 Univ ers 100 mg 4-16 TABLET BY ity of tablet 00:00: [facility] THREE Medical TIMES A Branch DAY WITH FOOD hydrALAZINE 2019-0 Yes TAKE 1 Univ ers 100 mg 4-16 TABLET BY ity of tablet 00:00: [facility] THREE Medical TIMES A Branch DAY WITH FOOD hydrALAZINE 2019-0 Yes TAKE 1 Univ ers 100 mg 4-16 TABLET BY ity of tablet 00:00: [facility] THREE Medical TIMES A Branch DAY WITH FOOD hydrALAZINE 2019-0 2020- No TAKE 1 Uni vers 100 mg 4-16 03-06 TABLET BY ity of tablet 00:00: 00:00 [facility] [place] 00 :00 THREE Medical TIMES A Branch DAY WITH FOOD spironolact 2019-0 Yes 25mg Take 25 mg Univers one 25 mg 3-22 by mouth ity of tablet 00:00: daily. [place] Medical Branch spironolact 2019-0 Yes 25mg Take 25 mg Univers one 25 mg 3-22 by mouth ity of tablet 00:00: daily. [place] Medical Branch spironolact 2019-0 Yes 25mg Take 25 mg Univers one 25 mg 3-22 by mouth ity of tablet 00:00: daily. [place] Medical Branch spironolact 2019-0 Yes 25mg Take 25 mg Univers one 25 mg 3-22 by mouth ity of tablet 00:00: daily. [place] [facility] Branch spironolact 2019-0 Yes 25mg Take 25 mg Univers one 25 mg 3-22 by mouth ity of tablet 00:00: daily. [place] [facility] spironolact 2019-0 Yes 25mg Take 25 mg Univers one 25 mg 3-22 by mouth ity of tablet 00:00: daily. [place] [facility] spironolact 2019-0 Yes 25mg Take 25 mg Univers one 25 mg 3-22 by mouth ity of tablet 00:00: daily. [place] [facility] spironolact 2019-0 Yes 25mg Take 25 mg Univers one 25 mg 3-22 by mouth ity of tablet 00:00: daily. [place] [facility] spironolact 2019-0 Yes 25mg Take 25 mg Univers one 25 mg 3-22 by mouth ity of tablet 00:00: daily. [place] [facility] spironolact 2019-0 Yes 25mg Take 25 mg Univers one 25 mg 3-22 by mouth ity of tablet 00:00: daily. [place] [facility] spironolact 2019-0 Yes 25mg Take 25 mg Univers one 25 mg 3-22 by mouth ity of tablet 00:00: daily. [place] [facility] spironolact 2019-0 Yes 25mg Take 25 mg Univers one 25 mg 3-22 by mouth ity of tablet 00:00: daily. [place] [facility] spironolact 2019-0 Yes 25mg Take 25 mg Univers one 25 mg 3-22 by mouth ity of tablet 00:00: daily. [place] [facility] spironolact 2019-0 Yes 25mg Take 25 mg Univers one 25 mg 3-22 by mouth ity of tablet 00:00: daily. [address] spironolact 2019-0 2020- No 25mg Take 25 mg Univers one 25 mg 3-22 -06 by mouth ity o f tablet 00:00: 00:00 daily. [place] 00 :00 [facility] Branch Immunizations Ordered Filled Immunization Date Status Comments [facility] e Immunization Name Name SARS-COV-2 COVID-19 2020-05-12 Completed Unive rsity of MODERNA VACCINE 00:00:00 [facility] SARS-COV-2 COVID-19 2020-05-12 Completed Unive rsity of MODERNA VACCINE 00:00:00 [facility] SARS-COV-2 COVID-19 2020-05-12 Completed Unive rsity [...] Completed Unive rsity of MODERNA VACCINE 00:00:00 [facility] Branch SARS-COV-2 COVID-19 2020-04-14 Completed Unive rsity of MODERNA VACCINE 00:00:00 [facility] Branch SARS-COV-2 COVID-19 2020-04-14 Completed Unive rsity of MODERNA VACCINE 00:00:00 [facility] Vital Signs Vital Name Observation Time Observation Value Comments Source Body height 2019-04-20 15:34:00 165.1 cm Universi ty of [facility] Body weight 2019-04-20 15:34:00 104.327 kg Universi ty of [facility] BMI 2019-04-20 15:34:00 38.27 kg/m2 Universi ty [facility] Systolic blood 2019-03-23 16:31:00 173 mm[Hg] Univer sity of pressure [facility] Diastolic blood 2019-03-23 16:31:00 90 mm[Hg] Unive rsity of pressure [facility] Heart rate 2019-03-23 16:31:00 64 /min Universi ty [facility] Body temperature 2019-03-23 16:31:00 36.72 [facility] ersity of [facility] Branch Respiratory rate 2019-03-23 16:31:00 18 /min Univ ersity of [facility] Body height 2019-03-23 16:31:00 165.1 cm Universi ty [facility] Body weight 2019-03-23 16:31:00 97.24 kg Universi ty [facility] BMI 2019-03-23 16:31:00 35.67 kg/m2 Universi ty [facility] Procedures Procedure Date / Time Performing Clinician Source Performed [id number] 2021-05-24 00:00:00 JOELM [facility] MEDICATION CORRESPONDENCE 2020-01-21 06:01:00 Doctor Unassigned, [facility] Encounters Start End Encounter Admission Attending Care Care Encounter Source Date/Time Date/Time Type Type Clinicians Facility Department ID 2021-06-09 Outpatient [facility] [id number] [place] 14:19:02 [id number] Health 2021-06-22 2021-06-22 Outpatient EFRAÍN ALEXANDER [facility] [id number] Univers 10:40:00 10:40:00 [facility] [id number] [facility]-06-22 2021-06-22 Outpatient R EMAM EFRAÍN [facility] [id number] Univers 10:40:00 10:40:00 [facility] 2021-06-17 2021-06-17 Telephone Emma [facility] [id number] Univers 00:00:00 00:00:00 Efraín [facility] [id number] ity [facility] [id number] Trino as MARQUES?BLEA [phone] [place] [address] MEDICAL OFFICE [facility] 2021-05-17 2021-05-27 Inpatient EM herminia [facility] MED [id number] [facility] 02:24:00 14:50:00 [id number] [facility] 2021-05-17 2021-05-27 [id number] [facility] 02:24:00 14:50:00 65 [facility] 2020-09-07 2020-09-07 Refalfonzo Carter [facility] [id number] Univers 00:00:00 00:00:00 [place]fraín [place] [id number] ity [id number] [phone] [place] michele garza [address] [place] [address] 2020-06-18 2020-06-18 Refalfonzo Carter [facility] [id number] Univers 00:00:00 00:00:00 Efraín [place] [id number] ity of [place] [id number] [place] [phone] [place] michele [address] 2020-05-12 2020-05-12 Outpatient Bridgette BREWER [facility] [id number] Univers 16:00:00 16:00:00 ALLA [facility] 2020-04-18 2020-04-18 Telephone Emma [facility] [id number] Univers 00:00:00 00:00:00 Efraín Foster [id number] ity [place] [id number] [place] [phone] [address] 2020-04-18 2020-04-18 [place], [facility] [id number] Univers 00:00:00 00:00:00 Efraín Foster [id number] ity [id number] [phone] [address] 2020-04-18 2020-04-18 [facility] Emma, [facility] [id number] Univers 00:00:00 00:00:00 Efraín Foster [id number] ity [place] [id number] [place] [phone] [address] 2020-04-17 2020-04-17 [facility] [id number] Univers 00:00:00 00:00:00 Efraín Foster [id number] ity [id number] [phone] [address] 2020-04-16 2020-04-16 [facility] [id number] Univers 00:00:00 00:00:00 Efraín Foster [id number] ity [id number] [phone] [facility] nal [address] [place] [address] 2020-04-16 2020-04-16 [facility] Emma, [facility] [id number] Univers 00:00:00 00:00:00 Efraín Foster [id number] ity [id number] [phone] [address] 2020-04-16 2020-04-16 [facility] 1.2.840.114 [id number] Univers 00:00:00 00:00:00 Efraín Foster [id number] ity [id number] [phone] [address] 2020-04-14 2020-04-14 Outpatient R DANIELLA [facility] [id number] Univers 15:50:00 15:50:00 [facility] [id number] [facility] 2020-04-14 2020-04-14 [facility] [id number] Univers 15:50:00 15:50:00 [facility] 2020-03-19 2020-03-19 [facility] 1.2.840.114 [id number] Univers 00:00:00 00:00:00 Efraín Foster 350.1.13.10 [place] [phone] [address] 2020-02-28 2020-02-28 Telephone [facility] 1.2.840.114 [id number] Univers 00:00:00 00:00:00 Efraín Foster 350.1.13.10 [place] [phone] [address] 2020-02-19 2020-02-19 [facility] 1.2.840.114 [id number] Univers 00:00:00 00:00:00 Efraín Foster 350.1.13.10 [place] [phone] [address] 2020-01-21 2020-01-[address] [facility] 1.2.840.114 [id number] Univers 00:00:00 00:00:00 Efraín Foster 350.1.13.10 [place] [phone] Oh [address] 2020-01-21 2020-01-21 Orders Doctor HOANG 1.2.840.114 [id number] Univers 00:00:00 00:00:00 Only Unassigned, JESUSITA 350.1.13.10 ity of [facility] 4.2.7.2.686 Trino as [phone] [address] 2019-12-25 2019-12-25 [facility] 1.2.840.114 [id number] Univers 00:00:00 00:00:00 Efraín Foster 350.1.13.10 [place] [phone] [address] 2019-12-24 2019-12-24 [place] [facility], [facility] 1.2.840.114 [id number] Univers 00:00:00 00:00:00 Efraín Foster 350.1.13.10 [place] [phone] [address] [facility] 1.2.840.114 [id number] Univers 00:00:00 00:00:00 Efraín Foster 350.1.13.10 [place] [phone] [address] 2019-11-23 2019-11-23 [facility] 1.2.840.114 [id number] Univers 00:00:00 00:00:00 Efraín Foster 350.1.13.10 [place] [phone] [address] 2019-11-23 2019-11-23 [facility] 1.2.840.114 [id number] 051 Univers 00:00:00 00:00:00 Efraín Foster 350.1.13.10 [place] [phone] [address] 2019-10-29 2019-10-29 [facility] 1.2.840.114 [id number] Univers 00:00:00 00:00:00 Efraín Foster 350.1.13.10 [place] [phone] [address] 2019-10-26 2019-10-26 [facility] 1.2.840.114 [id number] 757 Univers 00:00:00 00:00:00 Efraín Foster 350.1.13.10 [place] [phone] [address] 2019-09-28 2019-09-28 [facility] 1.2.840.114 [id number] 211 [facility] 00:00:00 00:00:00 Efraín Foster 350.1.13.10 [place] [phone] [address] 2019-09-28 2019-09-28 [facility] 1.2.840.114 [id number] Univers 00:00:00 00:00:00 Efraín Foster 350.1.13.10 [place] [phone] [address] 2019-09-25 2019-09-25 [facility] 1.2.840.114 [id number] 036 Univers 00:00:00 00:00:00 Efraín Foster 350.1.13.10 [place] [phone] [address] 2019-09-10 2019-09-10 [facility] R [facility] 544796U -20 Univers 13:00:00 13:00:00 [id number] ity [facility] 2019-09-10 2019-09-10 [facility] [id number] Univers 13:00:00 13:00:00 KRISTEL ity [facility] 2019-08-22 2019-08-22 [facility] 1.2.840.114 [id number] Univers 00:00:00 00:00:00 Efraín Prabhakar Foster 350.1.13.10 [place] [phone] [address] 2019-07-23 2019-07-23 [facility] 1.2.840.114 [id number] [id number] Univers 00:00:00 00:00:00 Efraín Prabhakar Foster 350.1.13.10 [place] [phone] [address] 2019-07-20 2019-07-20 [facility] 1.2.840.114 [id number] Univers 00:00:00 00:00:00 Efraín Radford Kristin 350.1.13.10 it[place] [phone] [address] 2019-07-20 2019-07-20 [facility] 1.2.840.114 [id number] [id number] Univers 00:00:00 00:00:00 Efraín Foster 350.1.13.10 [place] [phone] [address] 2019-07-20 2019-07-20 [facility] 1.2.840.114 [id number] [id number] Univers 00:00:00 00:00:00 Efraín Foster 350.1.13.10 [place] [phone] [address] 2019-07-19 2019-07-19 [facility] 1.2.840.114 [id number] [id number] Univers 00:00:00 00:00:00 Efraín Foster 350.1.13.10 [place] [phone] [facility] nal 092 [facility] 2019-07-18 2019-07-18 Refill [facility] 1.2.840.114 [id number] Univers 00:00:00 00:00:00 Efraín Foster 350.1.13.10 [place] [phone] [facility] nal [address] [place] [address] 2019-07-06 2019-07-06 Telephone [facility] 1.2.840.114 [id number] Univers 00:00:00 00:00:00 Efraín Foster 350.1.13.10 [place] [phone] [address] 2019-07-05 2019-07-05 Refalfonzo BeckPRESBYTERIAN [facility] 1.2.840.114 [id number] Univers 00:00:00 00:00:00 [facility] 350.1.13.10 ity of [place] 4.2.7.2.686 [place] Professio [phone] [facility] 044 [facility] 2019-07-03 2019-07-03 Telemedici [facility]PRES[facility] 1.2.840.114 [id number] Univers 08:05:45 10:48:54 ne Visit Efraín Foster 350.1.13.10 [place] [phone] Oh dicnv nal 092 [facility] 2019-07-03 2019-07-03 Outpatient EFRAÍN CARTER [facility] [id number] Univers 09:20:00 09:20:00 [facility] [id number] [facility]-07-03 2019-07-03 Outpatient R EFRAÍN CARTER [facility] [id number] Univers 09:20:00 09:20:00 EFRAÍN CARTER ity of [facility] 2019-06-19 2019-06-19 Jonathan [facility]PRES[facility] 1.2.840.114 [id number] Univers 00:00:00 00:00:00 Efraín Foster 350.1.13.10 [place] [phone] [facility] [address] [place] [address] 2019-06-18 2019-06-18 Jonathan [facility]PRES[facility] 1.2.840.114 [id number] Univers 00:00:00 00:00:00 Efraín Foster 350.1.13.10 [place] [phone] [address] 2019-05-28 2019-05-28 Refalfonzo CarterPRESBYTERIAN [facility] 1.2.840.114 [id number] Univers 00:00:00 00:00:00 Efraín Foster 350.1.13.10 it[place] [phone] Oh dicnv nal [address] [place] [address] 2019-05-16 2019-05-16 [facility] 1.2.840.114 [id number] Univers 00:00:00 00:00:00 Efraín Foster 350.1.13.10 [place] [phone] [facility] 092 [facility] 2019-05-13 2019-05-13 [facility] 1.2.840.114 [id number] Univers 00:00:00 00:00:00 [facility] 350.1.13.10 it[place] of [place] 4.2.7.2.686 [place] Professio [phone] [facility] 044 [facility] 2019-05-13 2019-05-13 Refalfonzo CarterPRESBYTERIAN [facility] 1.2.840.114 [id number] [id number] Univers 00:00:00 00:00:00 Efraín Foster 350.1.13.10 [place] [phone] Oh shirleytimothy garza 092 [facility] 2019-05-09 2019-05-09 Outpatient R [facility] [id number] -20 Univers 14:15:00 14:15:00 [id number] ity [facility] 2019-05-09 2019-05-09 Outpatient R GIFTY [facility] [id number] Univers 14:15:00 14:15:00 TAMARA ity [facility] 2019-05-09 2019-05-09 Telephone [facility]PRES[facility] 1.2.840.114 [id number] Univers 00:00:00 00:00:00 [facility] 350.1.13.10 ity of [place] 4.2.7.2.686 [place] Profess[place] [phone] Oh michele garza 044 [facility] 2019-05-09 2019-05-09 Telephone Gifty [facility] 1.2.840.114 [id number] Univers 00:00:00 00:00:00 Tamara D SPECIALTY 350.1.13.10 it[place] [phone] Oh michele MERIDA 370 [facility] 2019-05-08 2019-05-08 Telephone [facility]PRES[facility] 1.2.840.114 [id number] Univers 00:00:00 00:00:00 [facility] 350.1.13.10 ity of [place] 4.2.7.2.686 [place] Professio [phone] [facility] 044 [facility] 2019-04-27 2019-04-27 Outpatient R KIRAN [facility] [id number] P-20 Univers 10:30:00 10:30:00 WONDIFUL [id number] ity o f [facility] 2019-04-20 2019-04-20 Office [facility]PRES[facility] 1.2.840.114 [id number] Univers 09:23:30 19:21:09 Visit [facility] 350.1.13.10 ity of [place] 4.2.7.2.686 [place] Professio [phone] [facility] 044 [facility] 2019-04-20 2019-04-20 [facility] [id number] [facility] 09:00:00 09:00:00 WONDIFUL ity o f [facility] 2019-04-19 2019-04-19 Telephone [facility]PRES[facility] 1.2.840.114 [id number] [facility] 00:00:00 00:00:00 Efraín De Los Santoston 350.1.13.10 [place] [phone] [address] 2019-04-15 2019-04-15 [facility]PRES[facility] 1.2.840.114 [id number] 071 [facility] 00:00:00 00:00:00 Efraín Radford Kristin 350.1.13.10 [place] [phone] [address] 2019-03-23 2019-03-23 Office [facility]PRES[facility] 1.2.840.114 [id number] [facility] 09:58:29 11:26:48 Visit Efraín De Los [place]oston 350.1.13.10 it[place] [phone] [address] 2019-03-22 2019-03-22 [facility]PRES[facility] 1.2.840.114 [id number] Univers 00:00:00 00:00:00 Efraín De [place] 350.1.13.10 ity [place] [phone] [address] 2019-03-22 2019-03-22 [place] [facility]PRES[facility] 1.2.840.114 [id number] [id number] Univers 00:00:00 00:00:00 Efraín De Los Santoston 350.1.13.10 ity [place] [phone] [address] 2019-03-16 2019-03-16 [facility]PRES[facility] 1.2.840.114 [id number] Univers 00:00:00 00:00:00 Efraín Foster 350.1.13.10 it[place] [phone] Oh dical nal 2 [facility] 2019-03-07 2019-03-07 Jonathan Carter [facility] 1.2.840.114 [id number] Univers 00:00:00 00:00:00 Efraín Foster 350.1.13.10 it[place] [phone] Oh dicnv nal 2 [facility] 2018-09-08 2018-09-08 Refill [facility]PRESBY[facility] 1.2.840.114 [id number] Univers 00:00:00 00:00:00 Efraín Foster 350.1.13.10 it[place] [phone] [address] Results Test Description Test Time Test Comments Results Result Comments Source GLUBED 2021-05-28 00:11:00 Test Item Value Reference Range Interpretation Comme nts GLUBED (test code = GLUBED) 115 MG/DL 70-105 H [id number] 12:02:00 Test Item Value Reference Range Interpretation Comments GLUBED (test code = GLUBED) 148 MG/DL 70-105 H [id number] 00:29:00 Test Item Value Reference Range Interpretation Comments GLUBED (test code = GLUBED) 124 MG/DL 70-105 H [id number] 20:43:00 Test Item Value Reference Range Interpretation Comments GLUBED (test code = GLUBED) 142 MG/DL 70-105 H [id number] 13:20:00 Test Item Value Reference Range Interpretation Comments GLUBED (test code = GLUBED) 180 MG/DL 70-105 H [id number] 05:56:00 Test Item Value Reference Range Interpretation Comments GLUBED (test code = GLUBED) 123 MG/DL 70-105 H [id number] 00:28:00 Test Item Value Reference Range Interpretation Comments GLUBED (test code = GLUBED) 104 MG/DL 70-105 N BASIC METABOLIC [id number] 08:07:00 Test Item Value Reference Range Interpretation [...] New = CA) Reference Range Mar 2020 [id number] 08:07:00 Test Item Value Reference Range Interpretation Comments PHOSPHOROUS (test code 2.9 mg/dL 2.4-5.1 N Pleas e note: New = PHOS) Reference Range Mar 2020 [id number] 08:07:00 Test Item Value Reference Range Interpretation Comments MAGNESIUM (test code = 1.8 mg/dL 1.6-2.6 N Pleas e note: New MAG) Reference Range Mar 2020 B-TYPE NATRIURETIC [id number] 08:07:00 Test Item Value Reference Range Interpretation Comments B-TYPE NATRIURETIC PEPTIDE (test 793 pg/mL <100 H code = BNP) CBC W/AUTO [id number] 07:49:00 Test Item Value Reference Range Interpretation [...] = BA#) 0.03 x10 3/uL 0.0-0.20 N [id number] 07:40:00 Test Item Value Reference Range Interpretation Comments GLUBED (test code = GLUBED) 115 MG/DL 70-105 H [id number] 00:35:00 Test Item Value Reference Range Interpretation Comments GLUBED (test code = GLUBED) 126 MG/DL 70-105 H [id number] 17:23:00 Test Item Value Reference Range Interpretation Comments GLUBED (test code = GLUBED) 121 MG/DL 70-105 H [id number] 11:54:00 Test Item Value Reference Range Interpretation Comments GLUBED (test code = GLUBED) 125 MG/DL 70-105 H [id number] 07:41:00 Test Item Value Reference Range Interpretation Comments GLUBED (test code = GLUBED) 116 MG/DL 70-105 H COMPREHENSIVE METABOLIC [id number] 07:16:00 Test Item Value Reference Range Interpretation [...] ALKP) Reference Range Mar 2020 CBC W/AUTO [id number] 07:07:00 Test Item Value Reference Range Interpretation [...] = BA#) 0.01 x10 3/uL 0.0-0.20 N [id number] 06:53:00 Test Item Value Reference Range Interpretation Comments GLUBED (test code = GLUBED) 108 MG/DL 70-105 H [id number] 00:32:00 Test Item Value Reference Range Interpretation Comments GLUBED (test code = GLUBED) 88 MG/DL 70-105 N [id number] 17:26:00 Test Item Value Reference Range Interpretation Comments GLUBED (test code = GLUBED) 103 MG/DL 70-105 N [id number] 12:28:00 Test Item Value Reference Range Interpretation Comments GLUBED (test code = GLUBED) 105 MG/DL 70-105 N [id number] 10:12:00 Test Item Value Reference Range Interpretation Comments GLUBED (test code = GLUBED) 166 MG/DL 70-105 H [id number] 06:35:00 Test Item Value Reference Range Interpretation Comments GLUBED (test code = GLUBED) 117 MG/DL 70-105 H [id number] 02:42:00 Test Item Value Reference Range Interpretation Comments GLUBED (test code = GLUBED) 116 MG/DL 70-105 H [id number] 12:06:00 Test Item Value Reference Range Interpretation Comments GLUBED (test code = GLUBED) 151 MG/DL 70-105 H - XR CHEST 1 [id number] 08:30:00 [facility] : 1950 Sex: FPatient Name: CYNDI MONTAÑO Unit No: [id number] EXAMS: CPT CODE: [id number] XR CHEST 1 V 70927 CHEST 1 VIEW: INDICATION: chf COMPARISON: There are no prior studies for comparison. Location: W1 A single portable AP view of the chest demonstrates moderate cardiomegaly with a mildly elongated aorta. A nasogastric tube extends to the stomach. Mild hazy bilateral lung opacities are visible. No apparent pleural effusion nor pneumothorax. The visualized bony structures are unremarkable. IMPRESSION: 1. Mild CHF. at 0830 Reported and signed by: Delio Manley MD CC: Kt Holly MD; Alberto Rodriguez MD Technologist: Gavin Mccall Time: DAP (Gy m2): Air Kerma (mGy): Trscr Dt/Tm: 05/22/2021 (0830) by:[email or web address] Printed Date/Time: 05/22/2021 (0833) Name: CYNDI MONTAÑO [facility] Phys: Alberto Carrizales [address]DOB: 1950 Age: 70 Sex: [place] [address] Loc: P.0635 1 Exam Date: 05/22/2021 Status: ADM IN PH: FAX: PAGE 1 Signed ReportBASIC METABOLIC [id number] 07:12:00 Test Item Value Reference Range Interpretation [...] CA) Reference Range Mar 2020 B-TYPE NATRIURETIC [id number] 07:12:00 Test Item Value Reference Range Interpretation Comments B-TYPE NATRIURETIC PEPTIDE (test 857 pg/mL <100 H code = BNP) [id number] 00:21:00 Test Item Value Reference Range Interpretation Comments GLUBED (test code = GLUBED) 155 MG/DL 70-105 H [id number] 17:53:00 Test Item Value Reference Range Interpretation Comments MAGNESIUM (test code = 1.5 mg/dL 1.6-2.6 L Pleas e note: New MAG) Reference Range Mar 2020 [id number] 17:23:00 Test Item Value Reference Range Interpretation Comments GLUBED (test code = GLUBED) 170 MG/DL 70-105 H [id number] 13:04:00 Test Item Value Reference Range Interpretation Comments GLUBED (test code = GLUBED) 153 MG/DL 70-105 H BASIC METABOLIC [id number] 11:13:00 Test Item Value Reference Range Interpretation [...] New = CA) Reference Range Mar 2020 [id number] 07:33:00 Test Item Value Reference Range Interpretation Comments GLUBED (test code = GLUBED) 140 MG/DL 70-105 H [id number] 00:56:00 Test Item Value Reference Range Interpretation Comments GLUBED (test code = GLUBED) 118 MG/DL 70-105 H [id number] 17:29:00 Test Item Value Reference Range Interpretation Comments GLUBED (test code = GLUBED) 118 MG/DL 70-105 H [id number] 12:33:00 Test Item Value Reference Range Interpretation Comments GLUBED (test code = GLUBED) 134 MG/DL 70-105 H BASIC METABOLIC [id number] 08:34:00 Test Item Value Reference Range Interpretation [...] Ne w NITROGEN (test Reference Ran ge b code = BUN) 2020 GLOMERULAR >=60 max [...] CA) Reference Range Mar 2020 CBC W/AUTO [id number] 08:07:00 Test Item Value Reference Range Interpretation [...] = BA#) 0.00 x10 3/uL 0.0-0.20 N [id number] 05:32:00 Test Item Value Reference Range Interpretation Comments GLUBED (test code = GLUBED) 118 MG/DL 70-105 H [id number] 00:15:00 Test Item Value Reference Range Interpretation Comments GLUBED (test code = GLUBED) 99 MG/DL 70-105 N [id number] 12:09:00 Test Item Value Reference Range Interpretation Comments GLUBED (test code = GLUBED) 184 MG/DL 70-105 H [id number] 08:04:00 Test Item Value Reference Range Interpretation Comments GLUBED (test code = GLUBED) 193 MG/DL 70-105 H [id number] 08:04:00 Test Item Value Reference Range Interpretation Comments GLUBED (test code = GLUBED) 189 MG/DL 70-105 H BASIC METABOLIC [id number] 07:37:00 Test Item Value Reference Range Interpretation [...] CA) Reference Range Mar 2020 COMPREHENSIVE METABOLIC [id number] 07:37:00 Test Item Value Reference Range Interpretation [...] ALKP) Reference Range Mar 2020 CBC W/AUTO [id number] 07:30:00 Test Item Value Reference Range Interpretation [...] = BA#) 0.01 x10 3/uL 0.0-0.20 N [id number] 17:32:00 Test Item Value Reference Range Interpretation Comments GLUBED (test code = GLUBED) 192 MG/DL 70-105 H [id number] 13:01:00 Test Item Value Reference Range Interpretation Comments GLUBED (test code = GLUBED) 205 MG/DL 70-105 H [id number] 13:01:00 Test Item Value Reference Range Interpretation Comments GLUBED (test code = GLUBED) 213 MG/DL 70-105 H [id number] 13:01:00 Test Item Value Reference Range Interpretation Comments GLUBED (test code = GLUBED) 257 MG/DL 70-105 H - XR ABDOMEN [id number] 08:26:00 [facility] : 1950 Sex: FPatient Name: CYNDI MONTAÑO Unit No: [id number] EXAMS: CPT CODE: [id number] XR ABDOMEN 1V 47492 ABDOMEN, SINGLE VIEW DICTATION LOCATION A1 HISTORY: Small bowel obstruction. A single view of the abdomen 7:32 AM was compared to a abdomen and pelvis CT from May 17, 2021. FINDINGS: Mild constipation has improved but persists. Nasogastric tube is in a decompressed stomach. Small bowel gas pattern is nonspe cific. IMPRESSION: Improvement in constipation. No other new finding or change. at 0826 Reported and signed by: Yariel Patel Jr, MD CC: Kt Holly MD; Hoang Lake Jr, MD Technologist: Gavin Mccall Time: DAP (Gy m2): Air Kerma (mGy): Trscr Dt/Tm: 05/18/2021 (08) by:Efren Printed Date/Time: 05/18/2021 (828) Name: CYNDI MONTAÑO [facility] Phys: Hoang Johnson Jr, MD [address] : 1950 Age: 70 Sex: [place] [address] Loc: P.0635 1 Exam Date: 05/18/2021 Status: ADM IN PH: FAX: PAGE 1 Signed ReportCOMPREHENSIVE METABOLIC [id number] 06:58:00 Test Item Value Reference Range Interpretation [...] 100 -129 mg/dLBorde rline High: 130 - 159 mg/dLHigh: 160 - 189 mg/dLVery High: = or > 190 mg/dL CORONARY RISK FACTOR 3.15 CHOL/H DL RISK MALE: (test code = RISK) 1/2 AVG 3 .43 FEMALE: 1/2 AVG 3.27 AV G 4.97 AVG 4.44 2X AVG 9.55 2X AVG 7.05 3X AVG 23.39 3X AVG 11.04~~~~~~~~~~ ~~~~~~~ ~~~~~~~~~~~~~~~ ~~~~~~~ ~~~~~~~~~~~~~~~ ~~~~~~N ational Cholest tacos Education (NCEP ) Guidelines:~~~~ ~~~~~~~ ~~~~~~~~~~~~~~~ ~~~~~~~ ~~~~~~~~~~~~~~~ ~~~~~~~ ~~~~~ HDL Cholesterol<4 0mg/dL: HDL Cholesterol (Major risk factor for CHD)>60mg/dL: H DL Cholesterol (Ne gative risk factor for CHD)40-59mg/dL: Borderline Risk LDL Cholesterol<1 00mg/dL : Desirable LDL -C xklgyatuyvvrl40 0-159mg /dL: Borderline High Risk LDL-C fcsgknqvuzvfz59 0-189mg /dL: High risk LDL-C concentration H DL-LDL Cholesterol is affected by a n umber of factors such as smoking, age an d sex.~~~~~~~~~~~ ~~~~~~~ ~~~~~~~~~~~~~~~ ~~~~~~~ ~~~~~~~~~~~~~~~ ~~~~~ HGBA1C - GLYCOSYLATED [id number] 06:58:00 Test Item Value Reference Range Interpretation Comments GLYCOSYLATED HEMOGLOBIN 6.9 % <5.7 H Diab etic >/= (HA1C) (test code = 6.5%Pred iabetes GLYHGB) 5.7-6.4%Normal < 5.7% CBC W/AUTO [id number] 06:40:00 Test Item Value Reference Range Interpretation [...] = BA#) 0.00 x10 3/uL 0.0-0.20 N [id number] 04:52:00 Test Item Value Reference Range Interpretation Comments GLUBED (test code = GLUBED) 200 MG/DL 70-105 H [id number] 04:52:00 Test Item Value Reference Range Interpretation Comments GLUBED (test code = GLUBED) 260 MG/DL 70-105 H [id number] 17:59:00 Test Item Value Reference Range Interpretation Comments GLUBED (test code = GLUBED) 221 MG/DL 70-105 H [id number] 17:59:00 Test Item Value Reference Range Interpretation Comments GLUBED (test code = GLUBED) 207 MG/DL 70-105 H - CT ABD PELVIS [id number] 12:45:00 [facility] : 1950 Sex: FPatient Name: CYNDI MONTAÑO Unit No: [id number] EXAMS: CPT CODE: [id number] CT ABD PELVIS W/CONT 84645ZPFK: - CT ABD PELVIS W/CONT Location: B2 [...] and/or kV according to patient size, and/or utilization of iterative reconstruction technique. GFR: , Creatinine: 0.7 mg/dL DLP: 892 mGy-cm. FINDINGS: Abdomen Lower thorax: Minimal dependent airspace densities are noted in the lung bases. There is prominence of central pulmonary vessels. Heart is moderately enlarged. There is no pericardial effusion. Hepatobiliary: No visualized abnormality. No discrete intrahepatic lesions. No biliary ductal dilatation. No perihepatic ascites. Gal lbladder: Surgical absence. Spleen: No visualized abnormality. Pancreas: Atrophic Adrenals: Slight thickening of the adrenal glands may indicate adenomatosis versus hyperplasia. Kidneys: No visualizedabnormality. No hydronephrosis or hydroureter. Bowel: There is [...] Small gas and stool is seen more distally within the sigmoid colon. There is mild fluid andcontrast distention of the small bowel loops. Appendix is not visualized. The stomach and gastroesophageal junction are within normal limits. NG tube is present with tip at the mid gastric body. The stomach is collapsed. There is small hiatal hernia. Vessels: No visualized abnormality. Name: CYNDI MONTAÑO [facility] Phys: Ho Chavez [id number] : 1950 Age: 70 Sex: [place] [address] Loc: [phone] 1 Exam Date: 05/17/2021 Status: ADM IN PH: FAX: PAGE 1 Signed Report (CONTINUED) Patient Name: CYNDI MONTAÑO Unit No: [id number] EXAMS: CPT CODE: [id number] CT ABD PELVIS W/CONT [id number] <Continued> Lymph nodes: No lymphadenopathy Peritoneum/retroperitoneum: No [...] colon where there is a 5 cm se ction of narrowing which may represent sequelae of diverticulitis although underlying lesion is not excluded. There is also dilation of small bowel loops. 2. Mild dependent atelectasis versus pneumonitis. 3. Cardiomegaly and pulmonary venous hypertension. 4. Adrenal hyperplasia versus adenomatosis. 5.Nonspecific small free pelvic fluid. Uterus is surgically absent. at 1245 Reported and signed by: DEREK GARCIA M.D. CC: Kt Holly MD; Ho Cody MD Technologist: Lester Winkler CTDI: 14.37 DLP: 892 Trscr Dt/Tm: 05/17/2021 (9746) by:[email or web address] Printed Date/Time: 05/17/2021 (4819) Name: CYNDI MONTAÑO [facility] Phys: Ho Chaudhry [address] : 1950 Age: 70 Sex: [place] [address] Loc: [phone] 1 Exam Date: 05/17/2021 Status: ADM IN PH: FAX: PAGE 2 Signed Report- US ABDOMEN [id number] 11:02:00 [facility] 1950 Sex: FPatient Name: CYNDI MONTAÑO Unit No: [id number] EXAMS: CPT CODE: [id number] US ABDOMEN COMPLETE [id number] EXAM: ABDOMINAL ULTRASOUND COMPLETE INDICATION: abdominal pain LOCATION CODE: A 1 COMPARISON: None available. TECHNIQUE: Grayscale and limited color sonographic evaluation of the abdomen was performed. FINDINGS: Evaluation is limited by patient body habitus and overlying right upper quadrant scar. LIVER: The right liver measures 16.2 cm in craniocaudal dimension. No focal hepatic lesions are identified. The main portal vein shows hepatopetal flow. BILE DUCTS: No intrahepatic biliary duct dilatationis seen. The common bile duct measures 0.2 [...] hydronephrosis. AORTA AND INFERIOR VENA CAVA: Visualized portions appear unremarkable. ASCITES: There is no abdominal ascites. IMPRESSION: Limited evaluation due to patient body habitus and overlying right upper quadrant scar. No acute abdominal abnormality is clearly seen. [facility]: Kt Wilson MD [address] : 1950 Age:70 Sex: [place] [address] Loc: [phone] 1 Exam Date: 05/17/2021 Status: ADM INPH: FAX: PAGE 1 Signed Report (CONTINUED) Patient Name: CYNDI MONTAÑO Unit No: [id number] EXAMS: CPT CODE: [id number] US ABDOMEN COMPLETE [id number] <Continued> at 1102 Reported and signed by: SHELIA CROWELL M.D. CC: Kt Holly MD Technologist: TERI CONNOR RDMS (AB) Probe: Trscr Dt/Tm: 05/17/2021 (1102) by:[email or web address] Printed Date/Time: 05/17/2021 (1106) [facility] Phys: Kt Wilson MD [address] : 1950 Age: 70 Sex: [place] [address] Loc:[phone] 1 Exam Date: 05/17/2021 Status: ADM IN PH: FAX: PAGE 2 Signed Report- XR ABDOMEN [id number] 10:33:00 [facility] : 1950 Sex: FPatient Name: CYNDI MONTAÑO Unit No: [id number] EXAMS: CPT CODE: [id number] XR ABDOMEN 1V [id number] EXAM: XR ABDOMEN 1 VIEW INDICATION: NG TUBE PLACEMENT LOCATION: A1 COMPARISON: None. TECHNIQUE: AP view of the abdomen. FINDINGS: Nasogastric tube has its tip and side-port in the stomach. There is gaseous distention of large bowel loops throughout the abdomen. Contrast is seen in the urinary bladder. No acute osseous abnormality is seen. IMPRESSION: 1. Nasogastric tube with tip and side- port in the stomach. 2. Gaseous distention of multiple large bowel loops throughout the abdomen. at 1033 Reported and signed by: SHELIA CROWELL M.D. CC: Kt Holly MD; Lorenzo Monaco DO Technologist: Barbara Garduno FluoroTime: DAP (Gy m2): Air Kerma (mGy): Trscr Dt/Tm: 05/17/2021 (1033) by:[email or web address] Printed Date/Time:05/17/2021 (1036) Name: CYNDI MONTAÑO [facility] Phys: Lorenzo Moses DO [address] : 1950 Age: 70 Sex: F [place] [address] [id number] Loc: [id number] 1 Exam Date: Status: ADM IN PH: FAX: PAGE 1 Signed ReportCOMPREHENSIVE METABOLIC [id number] 08:49:00 Test Item Value Reference Range Interpretation [...] Reference Range Feb code = ALKP) 2020 [id number] 08:49:00 Test Item Value Reference Range Interpretation Comments MAGNESIUM (test code = 1.6 mg/dL 1.6-2.6 N Pleas e note: New MAG) Reference Range Mar 2020 THYROID STIMULATING [id number] 08:49:00 Test Item Value Reference Range Interpretation Comments THYROID STIMULATING 1.25 mIU/mL 0.55-4.78 N Please n ote: New HORMONE (test code = Referen ce Range Mar TSH) 2020 PROTHROMBIN [id number] 08:35:00 Test Item Value Reference Range Interpretation Comments PROTHROMBIN TIME 14.5 SECONDS 10.3-12.9 H PATIENT (test code = PTP) INTERNATIONAL 1.27 INR UNIT 0.9-1.11 H The INR is us eful only NORMAL RATIO (test for monit oring code = INR) anticoagulant therapy.It may be unreliable in t he initial phase o f antigoagulation and in unstable patien ts. Indication for Anticoagulation Recommended INR 1. Prevention of v enous thomboembolism 2.0-3.0in high- risk patients; treat ment of venousthrombosi s and pulmonary embol ism aftera course o f heparin; preven tion of systemicembolis m in a variety of cond itions, including atria l fibrillation an d prothetic tissu e heart valves, 2. Pros thetic mechanical hear t valves; 2.5-3.5recurren t systemic emboli sm. THROMBOPLASTIN TIME [id number] 08:35:00 Test Item Value Reference Range Interpretation Comments THROMBOPLASTIN TIME 30.6 SECONDS 23.8-34.8 N INTERPRE TATIVE PARTIAL (test code = DATA: erapeutic PTT) range: Unfractionated heparin:55 - 80 seconds Argatroban:1.5 to 3 times the basel ine PTT CBC W/AUTO [id number] 08:27:00 Test Item Value Reference Range Interpretation [...]
--- NOTE | 2021-09-30 15:58 | RAD REPORT ---
EXAM DESCRIPTION: RAD - Chest Single View - 09/30/2021 3:51 pm CLINICAL HISTORY: CHEST PAIN COMPARISON: Portable 09/10/2021 TECHNIQUE: AP portable chest image was obtained 09/30/2021 3:51 pm . FINDINGS: No peripheral mass consolidation. Interstitial pattern is prominent but unchanged. Cardiom egaly and vascular engorgement are present but slightly smaller than comparison. No measurable pleura l effusion and no pneumothorax. No acute bony abnormality seen. No acute aortic findings suspected. IMPRESSION: Mild CHF/volume overload pattern similar to slightly less prominent than the comparison study.
[2021-09-30 16:08] LABS: Hematocrit 41.7 % (36.0-45.0); Lymphocytes % 19.4 % (15.3-44.8); MCV 81.4 fL (80-100); MPV 7.9 fL (7.6-11.3); RBC Red Blood Cell Count 5.12 M/uL (3.86-4.86)
--- NOTE | 2021-09-30 16:10 | RAD REPORT ---
EXAM DESCRIPTION: CT - Head Brain Wo Cont - 09/30/2021 3:56 pm CLINICAL HISTORY: Headache, new or worsening COMPARISON: Head Brain Wo Cont dated 08/15/2021 TECHNIQUE: Axial 5 mm thick images of the head were obtained without IV contrast. All CT scans are performed using dose optimization technique as appropriate and may include automated exposure control or mA/KV adjustment according to patient size. FINDINGS: No intracranial hemorrhage, mass, edema or shift of mid-line structures. No acute cortical level infarction seen. Cortical edema or sulcal effacement. No significant atrophy change. Ventricle s are normal. No abnormal extra-axial fluid collections. Cerebral white matter chronic ischemic reed es mild and stable. Prominent physiologic calcifications are present. Mastoid air cells and visualized portions of the paranasal sinuses are clear. No acute bony findings. Hyperostosis frontalis interna an overall thickened diploic space of the skul l was noted similar to prior imaging. IMPRESSION: Negative non-contrast CT head examination for acute finding. No significant changes from the 08/15/2021 study.
[2021-09-30] MEDS ORDERED: ACETAMINOPHEN 500 MG TAB ONE (16:42)
[2021-09-30] MEDS ORDERED: cloNIDine HCL 0.1 MG TAB ONE (16:42)
[2021-09-30 17:29] LABS: Potassium 4.1 mmol/L (3.5-5.1); Troponin High Sensitivity 29.7 pg/mL (<58.9)
--- NOTE | 2021-09-30 17:34 | ER ---
Nurse's Notes [facility] Name: Blanka Ferrell Age: 70 yrs Sex: Female : 1950 Arrival Date: 09/30/2021 Time: 14:41 Bed 4 Private MD: Diagnosis: Headache;Essential (primary) hypertension Presentation: 09/30 14:42 Chief complaint: EMS states: toned out to patients home due to HTN. Coronavirus screen: ld1 At this time, the client does not indicate any symptoms associated with coronavirus-19. Ebola Screen: No symptoms or risks identified at this time. Initial Sepsis Screen: Does the patient meet any 2 criteria? No. Patient's initial sepsis screen is negative. Does the patient have a suspected source of infection? No. Patient's initial sepsis screen is negative. Risk Assessment: Do you want to hurt yourself or someone else? Patient reports no desire to harm self or others. Onset of symptoms was September 30, 2021. 14:42 Method Of Arrival: EMS: [facility] ld1 14:42 Acuity: THALIA 3 ld1 Triage Assessment: 14:44 General: Appears in no apparent distress. comfortable, Behavior is calm, cooperative, ld1 appropriate for age. Pain: Denies pain. EENT: No signs and/or symptoms were reported regarding the EENT system. Neuro: Level of Consciousness is awake, alert, obeys commands, Oriented to person, place, time, situation. Cardiovascular: Capillary refill < 3 seconds Patient's skin is warm and dry. Rhythm is sinus rhythm. Respiratory: Airway is patent Respiratory effort is even, unlabored. GI: Abdomen is round non-distended. : No signs and/or symptoms were reported regarding the genitourinary system. Derm: No signs and/or symptoms reported regarding the dermatologic system. Musculoskeletal: No signs and/or symptoms reported regarding the musculoskeletal system. Historical: - Allergies: 14:44 Imitrex; ld1 - PMHx: 14:44 Anxiety; Thyroid problem; Migraines; TIA; Diabetes - IDDM; Congestive heart failure; ld1 Hypertension; - PSHx: 14:44 section; Cholecystectomy; hysterectomy; ld1 - Immunization history:: Adult Immunizations up to date, Client reports receiving the 2nd dose of the Covid vaccine. - Social history:: Smoking status: Patient denies any tobacco usage or history of. Patient/guardian denies using alcohol. Screenin:46 Abuse screen: Denies threats or abuse. Denies injuries from another. Nutritional ld1 screening: No deficits noted. Tuberculosis screening: No symptoms or risk factors identified. Fall Risk None identified. Assessment: 14:46 Reassessment: See triage assessment. ld1 17:03 Reassessment: Pt c/o headache and insomnia. Notified ERP. See [facility] for orders. ld1 18:38 Reassessment: Patient appears in no apparent distress at this time. Patient is alert, ld1 oriented x 3, equal unlabored respirations, skin warm/dry/pink. Patient states feeling better. Vital Signs: 14:42 BP 194 / 117; Pulse 72; Resp 18; Temp 97.9(TE); Pulse Ox 96% on R/A; Weight 88.45 kg; ld1 Height 5 ft. 7 in. (170.18 cm); Pain 0/10; 16:09 BP 199 / 97; Pulse 71; Resp 17; Pulse Ox 99% on R/A; ld1 17:03 BP 191 / 107; Pulse 75; Resp 17; Pulse Ox 98% on R/A; Pain 8/10; ld1 18:38 BP 186 / 102; Pulse 76; Resp 18; Pulse Ox 98% on R/A; ld1 14:42 Body Mass Index 30.54 (88.45 kg, 170.18 cm) ld1 ED Course: 14:41 Patient arrived in ED. jmm 14:42 Sp Rivera DO is Attending Physician. ms3 14:42 Stephanie Negron, RN is Primary Nurse. ld1 14:44 Triage completed. ld1 14:44 Leesa Schultz, RE is Primary Nurse. eh3 14:44 Patient has correct armband on for positive identification. Placed in gown. Bed in low eh3 position. Call light in reach. Side rails up X2. Client placed on continuous cardiac and pulse oximetry monitoring. NIBP monitoring applied. Door closed. Noise minimized. Lights dimmed. Warm blanket given. 14:44 Arm band placed on right wrist. EKG completed in triage. Results shown to MD. ld1 14:46 No provider procedures requiring assistance completed. ld1 15:53 XRAY Chest (1 view) In Process Unspecified. EDMS 15:57 CT Head Brain wo Cont In Process Unspecified. EDMS 16:13 Inserted saline lock: 20 gauge in right forearm, using aseptic technique. Blood ld1 collected. 18:39 IV discontinued, intact, bleeding controlled, No redness/swelling at site. ld1 Administered Medications: 16:37 Drug: cloNIDine 0.1 mg Route: PO; ld1 16:37 Drug: Tylenol 1000 mg Route: PO; ld1 Medication: 14:46 VIS not applicable for this client. ld1 Outcome: 17:33 Discharge ordered by MD. ms3 18:39 Discharged to home ambulatory, via wheelchair, with family. ld1 18:39 Condition: stable 18:39 Discharge instructions given to patient, Instructed on discharge instructions, follow up and referral plans. Demonstrated understanding of instructions, follow-up care. 18:39 Patient left the ED. ld1 Signatures: Dispatcher [employer] EDMS Galo Quiñones PA PA jmm Sims, Marcus, DO DO ms3 Stephanie Negron, RN RN ld1 Leesa Schultz RN RN eh3
--- NOTE | 2021-09-30 17:34 | EDPHYS ---
Physician Documentation [facility] Name: Blanka Ferrell Age: 70 yrs Sex: Female : 1950 Arrival Date: 09/30/2021 Time: 14:41 Bed 4 Private MD: ED Physician Sp Rivera HPI: 09/30 15:45 This 70 yrs old Black Female presents to ER via EMS with complaints of Blood Pressure ms3 Problem. 15:45 The patient complains of pain to the forehead. The patient describes the headache as ms3 aching. Onset: The symptoms/episode began/occurred today. Associated signs and symptoms: The patient has no apparent associated signs or symptoms. Severity of symptoms: At its worst the pain was moderate, in the emergency department the pain is unchanged. Historical: - Allergies: 14:44 Imitrex; ld1 - PMHx: 14:44 Anxiety; Thyroid problem; Migraines; TIA; Diabetes - IDDM; Congestive heart failure; ld1 Hypertension; - PSHx: 14:44 section; Cholecystectomy; hysterectomy; ld1 - Immunization history:: Adult Immunizations up to date, Client reports receiving the 2nd dose of the Covid vaccine. - Social history:: Smoking status: Patient denies any tobacco usage or history of. Patient/guardian denies using alcohol. ROS: 15:45 Constitutional: Negative for fever, and chills. ENT: Negative for injury, pain, and ms3 discharge, Neck: Negative for injury, pain, and swelling, Cardiovascular: Negative for chest pain, and palpitations. Respiratory: Negative for shortness of breath, cough, wheezing, and pleuritic chest pain, Abdomen/GI: Negative for abdominal pain, nausea, vomiting, diarrhea, and constipation, Back: Negative for injury and pain. 15:45 Neuro: Positive for headache. 15:45 All other systems are negative. Exam: 14:35 ECG was reviewed by the Attending Physician. ms3 15:45 Constitutional: This is a well developed, well nourished patient who is awake, alert, ms3 and in no acute distress. Neck: Trachea midline, no cervical lymphadenopathy. Supple, full range of motion without nuchal rigidity, or vertebral point tenderness. No Meningismus. Chest/axilla: Normal chest wall appearance and motion. Nontender with no deformity. Cardiovascular: Regular rate and rhythm with a normal S1 and S2. No gallops, murmurs, or rubs. Normal PMI, no JVD. No pulse deficits. Respiratory: Lungs have equal breath sounds bilaterally, clear to auscultation and percussion. No rales, rhonchi or wheezes noted. No increased work of breathing, no retractions or nasal flaring. Abdomen/GI: Soft, non-tender, with normal bowel sounds. No distension or tympany. No guarding or rebound. No evidence of tenderness throughout. Skin: Warm, dry with normal turgor. Normal color with no rashes, no lesions, and no evidence of cellulitis. MS/ Extremity: Pulses equal, no cyanosis. Neurovascular intact. Full, normal range of motion. Neuro: Awake and alert, GCS 15, oriented to person, place, time, and situation. Cranial nerves II-XII grossly intact. Motor strength 5/5 in all extremities. Sensory grossly intact. Cerebellar exam normal. Normal gait. Psych: Awake, alert, with orientation to person, place and time. Behavior, mood, and affect are within normal limits. Vital Signs: 14:42 BP 194 / 117; Pulse 72; Resp 18; Temp 97.9(TE); Pulse Ox 96% on R/A; Weight 88.45 kg; ld1 Height 5 ft. 7 in. (170.18 cm); Pain 0/10; 16:09 BP 199 / 97; Pulse 71; Resp 17; Pulse Ox 99% on R/A; ld1 17:03 BP 191 / 107; Pulse 75; Resp 17; Pulse Ox 98% on R/A; Pain 8/10; ld1 18:38 BP 186 / 102; Pulse 76; Resp 18; Pulse Ox 98% on R/A; ld1 14:42 Body Mass Index 30.54 (88.45 kg, 170.18 cm) ld1 MDM: 15:05 Patient medically screened. ms3 15:45 Differential diagnosis: subarachnoid bleed, subdural hematoma, Headache. ms3 17:33 Data reviewed: vital signs, nurses notes, lab test result(s), EKG, radiologic studies, ms3 and as a result, I will discharge patient. Data interpreted: teletypesetter monitor: rate is 72 beats/min, rhythm is normal sinus rhythm, regular, with no ectopy, Interpretation: normal rate, normal rhythm. Counseling: I had a detailed discussion with the patient and/or guardian regarding: the historical points, exam findings, and any diagnostic results supporting the discharge/admit diagnosis, lab results, radiology results, the need for outpatient follow up, to return to the emergency department if symptoms worsen or persist or if there are any questions or concerns that arise at home. Refusal of service: The patient/guardian displays adequate decision making capability and despite a detailed discussion of alternatives, benefits, risks, and consequences refuses: Lumbar Puncture procedure. ED course: On reevaluation patient symptoms improved, patient is alert and oriented x4, no apparent distress, nontoxic, ambulatory in emergency department, tolerating p.o. Discussed LP with patient and patient declines. Discussed risks of not obtaining LP and patient understands/ accepts risks- SAH, infection, missed dx.. 09/30 14:45 Order name: Basic Metabolic Panel; Complete Time: 17:31 09/30 14:45 Order name: CBC with Diff; Complete Time: 16:12 09/30 14:45 Order name: Troponin HS; Complete Time: 17:31 09/30 14:45 Order name: XRAY Chest (1 view); Complete Time: 16:12 09/30 15:06 Order name: CT Head Brain wo Cont; Complete Time: 16:12 3 09/30 14:45 Order name: EKG; Complete Time: 14:46 09/30 14:45 Order name: Cardiac monitoring; Complete Time: 14:45 09/30 14:45 Order name: EKG - Nurse/Tech; Complete Time: 14:45 09/30 14:45 Order name: IV Saline Lock; Complete Time: 16:13 09/30 14:45 Order name: Labs collected and sent; Complete Time: 16:13 09/30 14:45 Order name: O2 Per Protocol; Complete Time: 14:45 09/30 14:45 Order name: O2 Sat Monitoring; Complete Time: 14:46 09/30 16:17 Order name: Labs - recollect needed: recollect c7; Complete Time: 17:03 bd EC:35 Rate is 73 beats/min. Rhythm is regular. MO interval is normal. Clinical impression: ms3 NSR with LBBB. No change from previous ECG on September 10, 2021. Interpreted by me. Reviewed by me. Administered Medications: 16:37 Drug: cloNIDine 0.1 mg Route: PO; ld1 16:37 Drug: Tylenol 1000 mg Route: PO; ld1 Disposition Summary: 09/30/21 17:33 Discharge Ordered Location: Home ms3 Condition: Stable ms3 Diagnosis - Headache ms3 - Essential (primary) hypertension ms3 Followup: ms3 - With: Private Physician - When: 2 - 3 days - Reason: Recheck today's complaints Discharge Instructions: - Discharge Summary Sheet ms3 - General Headache Without Cause ms3 - Hypertension, Adult ms3 Forms: - Medication Reconciliation Form ms3 - Thank You Letter ms3 - Antibiotic Education ms3 - Prescription Opioid Use ms3 Signatures: Dispatcher [employer] EDErica Antoine Marcus, DO ms3 Stephanie Negron, RN RN ld1
[2021-09-30 19:41] VITALS: TEMP 97.9
[2021-09-30 19:46] VITALS: O2SAT 98
[2021-09-30 19:48] VITALS: BP 186/102
--- NOTE | 2021-10-01 07:54 | EKG ---
Test Date: 2021-09-30 Test Time: 14:34:41 Labour Market Economist: JAMIL MEASUREMENT RESULTS: Intervals: Rate: 73 CA: 144 QRSD: 158 QT: 462 QTc: 508 [place]: P: 60 CA: 144 QRS: 38 T: 227 INTERPRETIVE STATEMENTS: Normal sinus rhythm Left bundle branch block Abnormal ECG Compared to ECG 09/10/2021 12:04:17 No significant changes Electronically Signed On 10-01-21 07:53:18 CDT by Roland Burns
== END 2021-09-30 18:39 | disposition home or self-care (01) ==
LOC: ER 14:26
DX: R51.9 Headache, unspecified (principal); I10 Essential (primary) hypertension; Z88.8 Allergy status to other drugs, medicaments and biological substances
CPT/HCPCS: 36415; 70450; 71045; 80048; 84484; 85025; 93005

== ENCOUNTER 2022-02-19 10:50 | Emergency (ER) | payer OTHER ==
--- OUTSIDE RECORDS SUMMARY | 2022-02-19 11:03 | XMS REPORT | Continuity of Care Document ---
:1950 Author Organization [facility] t Address [address] [place] [address] Care Team Providers Name Role Phone Denis Campos MD Primary Care Physician EFRAÍN CARTER Attending Clinician Unavailable EFRAÍN CARTER Attending Clinician Unavailable Efraín Carter MD Attending Clinician Kt Holly Attending Clinician Unavailable ALLA BREWER Attending Clinician Unavailable Doctor Unassigned, [place] Attending Clinician Unavailable KRISTEL JURADO Attending Clinician Unavailable Shanae Beck MD Attending Clinician TAMARA BOWERS Attending Clinician Unavailable Tamara Gary Attending Clinician SHANAE BECK Attending Clinician Unavailable Kt Holly Admitting Clinician Unavailable Payers Payer Name Policy Type Policy Number Effective Date Expiration Date S agnes [facility] MEDICAREDIRECT [id number] PFFS 00:00:00 [facility] [id number] 2021 [facility] PPO 00:00:00 [place] [id number] 2021 00:00:00 Problems Condition Condition Condition Status Onset Resolution Last Treating Co mments Source Name Details Category Date Date Treatment Clinician Date Grief Grief Disease Active Univers 3-06 ity of 00:00: [address] Reactive Reactive Disease Active Unive rs depression depression 04-19 it y of 00:00: [address] Morbid Morbid Disease Active Methodi obesity obesity 05-13 st with BMI with BMI 00:00: [facility] 00 l 40.0-44.9, 40.0-44.9, adult adult Diverticul Diverticul Disease Active M ethodi itis of itis of 3 st intestine intestine 00:00: [facility] l No known No known Disease Unive rs active active ity of problems problems [facility] Allergies, Adverse Reactions, Alerts Allergy Allergy Status Severity Reaction(s) Onset Inactive Treating Comm ents Source Name Type Date Date Clinician No Known DA Active U [facility]ie 05-17 [facility] 00:00: [facility] 00 [facility] NO KNOWN Drug Active Univers ALLERGIE Class ity of S [facility] Family History Family Member Diagnosis Comments Start Date Stop Date Source Natural daughter Anesthesia problems [facility] Natural daughter Diabetes [facility] Natural daughter [facility] Natural father Arthritis [facility] Natural father Diabetes [facility] Natural father Hypertension [facility] Natural father Stroke [facility] Social History Social Habit Start Date Stop Date Quantity Comments Source Exposure to Not sure [facility] SARS-CoV-2 [facility] (event) [place] Tobacco use and 2018-06-27 2018-06-27 Never used Universit y of exposure 00:00:00 00:00:00 [facility] Alcohol intake 2017-06-13 2017-06-13 Current [facility] 00:00:00 00:00:00 non-drinker of alcohol (finding) Sex [birth year] [facility] 00:00:00 00:00:00 Smoking Status Start Date Stop Date Source Never smoker [facility] Medications Ordered Filled Start Stop Current Ordering Indication Dosage Frequency Signature Comments Components Source Medication Medication Date Date Medication? Clinician (SIG) Name Name AMITRIPTYLI Yes TAKE 1 [facility] [place] 25 mg 5-05 TABLET BY ity of tablet 00:00: MOUTH EVERYDAY Medical AT BEDTIME Branch AMITRIPTYLI 2021-0 Yes TAKE 1 [facility] [place] 25 mg 5-05 TABLET BY ity of tablet 00:00: MOUTH EVERYDAY Medical AT BEDTIME Branch AMITRIPTYLI 2020-0 Yes TAKE 1 [facility] [place] 25 mg 5-05 TABLET BY ity of tablet 00:00: MOUTH EVERYDAY Medical AT BEDTIME Branch butorphanol 2021-0 Yes 2745 INHALE ONE Univers 10 mg/mL 3-05 SPRAY IN ity of nasal spray 00:00: ONE [facility]IL Medical EVERY 8 Branch HOURS NEEDED FOR HEADACHE Indication s: chronic pain, headache butorphanol 2021-0 Yes 2745 INHALE ONE Univers 10 mg/mL 3-05 SPRAY IN ity of nasal spray 00:00: ONE [place] [facility] Medical EVERY 8 Branch HOURS NEEDED FOR HEADACHE Indication s: chronic pain, headache butorphanol 2021-0 Yes 2745 INHALE ONE Univers 10 mg/mL 3-05 SPRAY IN ity of nasal spray 00:00: ONE [place] [facility]IL Medical EVERY 8 Branch HOURS NEEDED FOR HEADACHE Indication s: chronic pain, headache butorphanol 2021-0 Yes 2745 INHALE ONE Univers 10 mg/mL 3-05 SPRAY IN ity of nasal spray 00:00: ONE [place] [facility]STRIL Medical EVERY 8 Branch HOURS NEEDED FOR HEADACHE Indication s: chronic pain, headache butorphanol 2021-0 Yes 2745 USE 1 Unive rs 10 mg/mL 2-05 SPRAY IN ity of nasal spray 00:00: ONE [place] [facility]STRIL Medical EVERY 8 Branch HOURS NEEDED FOR HEADACHE Indication s: acute pain, chronic pain, Headache butorphanol 2021-0 Yes 2745 USE 1 Unive rs 10 mg/mL 2-05 SPRAY IN ity of nasal spray 00:00: ONE [place] [facility]IL Medical EVERY 8 Branch HOURS NEEDED FOR HEADACHE Indication s: acute pain, chronic pain, Headache butorphanol 2021-0 Yes 2745 USE 1 Unive rs 10 mg/mL 2-05 SPRAY IN ity of nasal spray 00:00: ONE [place] [facility] Medical EVERY 8 Branch HOURS NEEDED FOR HEADACHE Indication s: acute pain, chronic pain, Headache butorphanol 2021-0 Yes 2745 USE 1 Unive rs 10 mg/mL 2-05 SPRAY IN ity of nasal spray 00:00: ONE [place] [address] NOSTRIL Medical EVERY 8 Branch HOURS NEEDED FOR HEADACHE Indication s: acute pain, chronic pain, Headache butorphanol 2021-0 Yes 2745 USE 1 Unive rs 10 mg/mL 2-05 SPRAY IN ity of nasal spray 00:00: ONE [place] [facility] Medical EVERY 8 Branch HOURS NEEDED FOR HEADACHE Indication s: acute pain, chronic pain, Headache butorphanol 2021-0 Yes 2745 USE 1 Unive rs 10 mg/mL 2-05 SPRAY IN ity of nasal spray 00:00: ONE [place] [facility] Medical EVERY 8 Branch HOURS NEEDED FOR HEADACHE Indication s: acute pain, chronic pain, Headache butorphanol 2021-0 Yes 2745 USE 1 Unive rs 10 mg/mL 2-05 SPRAY IN ity of nasal spray 00:00: ONE [place] [facility] Medical EVERY 8 Branch HOURS NEEDED FOR HEADACHE Indication s: acute pain, chronic pain, Headache butorphanol 2021-0 Yes 2745 USE 1 Unive rs 10 mg/mL 2-05 SPRAY IN ity of nasal spray 00:00: ONE [place] [facility] Medical EVERY 8 Branch HOURS NEEDED FOR HEADACHE Indication s: acute pain, chronic pain, Headache butorphanol 2021-0 Yes 2745 USE 1 Unive rs 10 mg/mL 2-05 SPRAY IN ity of nasal spray 00:00: ONE [place] [facility] Medical EVERY 8 Branch HOURS NEEDED FOR HEADACHE Indication s: acute pain, chronic pain, Headache butorphanol 2021-0 Yes 2745 USE 1 Unive rs 10 mg/mL 2-05 SPRAY IN ity of nasal spray 00:00: ONE [place] [facility] Medical EVERY 8 Branch HOURS NEEDED FOR HEADACHE Indication s: acute pain, chronic pain, Headache butorphanol 2021-0 Yes 2745 USE 1 Unive rs 10 mg/mL 2-05 SPRAY IN ity of nasal spray 00:00: ONE [place] [address] NOSTRIL Medical EVERY 8 Branch HOURS NEEDED FOR HEADACHE Indication s: acute pain, chronic pain, Headache butorphanol 2021-0 2021- No 2745 USE 1 Univ ers 10 mg/mL 2-05 03-05 SPRAY IN ity of nasal spray 00:00: 00:00 [facility] 00 :00 NOSTRIL Medical EVERY 8 Branch HOURS NEEDED FOR HEADACHE Indication s: acute pain, chronic pain, Headache butorphanol 2021-0 202- No 2745 USE 1 Univ ers 10 mg/mL 2-05 03-05 SPRAY IN ity of nasal spray 00:00: 00:00 [place] 00 :00 NOSTRIL Medical EVERY 8 Branch HOURS NEEDED FOR HEADACHE Indication s: acute pain, chronic pain, Headache butorphanol 202-0 Yes 2745 USE 1 Unive rs 10 mg/mL 1-05 SPRAY IN ity of nasal spray 00:00: ONE [place] [facility] Medical EVERY 8 Branch HOURS NEEDED FOR HEADACHE Indication s: acute pain, chronic pain, Headache butorphanol 202-0 Yes 2745 USE 1 Unive rs 10 mg/mL 1-05 SPRAY IN ity of nasal spray 00:00: ONE [place] [facility] Medical EVERY 8 Branch HOURS NEEDED FOR HEADACHE Indication s: acute pain, chronic pain, Headache butorphanol 202-0 Yes 2745 USE 1 Unive rs 10 mg/mL 1-05 SPRAY IN ity of nasal spray 00:00: ONE [place] [facility] Medical EVERY 8 Branch HOURS NEEDED FOR HEADACHE Indication s: acute pain, chronic pain, Headache butorphanol 202-0 2021- No 2745 USE 1 Univ ers 10 mg/mL 1-05 02-05 SPRAY IN ity of nasal spray 00:00: 00:00 [facility] 00 :00 NOSTRIL Medical EVERY 8 Branch HOURS NEEDED FOR HEADACHE Indication s: acute pain, chronic pain, Headache butorphanol 2020-1 Yes 2745 USE 1 Unive rs 10 mg/mL 2-07 SPRAY IN ity of nasal spray 00:00: [place] [facility] Medical EVERY 8 Branch HOURS NEEDED FOR HEADACHE Indication s: acute pain, chronic pain, Headache butorphanol 2020-1 Yes 2745 USE 1 Unive rs 10 mg/mL 2-07 SPRAY IN ity of nasal spray 00:00: [place] [address] NOSTRIL Medical EVERY 8 Branch HOURS NEEDED FOR HEADACHE Indication s: acute pain, chronic pain, Headache butorphanol 2020-1 2021- No 2745 USE 1 Univ ers 10 mg/mL 2-07 01-05 SPRAY IN ity of nasal spray 00:00: 00:00 [facility] 00 :00 NOSTRIL Medical EVERY 8 Branch [...] 1-10 TABLET BY ity of tablet 00:00: [facility] EVERYDAY Medical AT BEDTIME Branch AMITRIPTYLI 2019- Yes TAKE 1 Univ ers NE 25 mg 1-10 TABLET BY ity of tablet 00:00: [facility] EVERYDAY Medical AT BEDTIME Branch AMITRIPTYLI 2019- Yes TAKE 1 Univ ers NE 25 mg 1-10 TABLET BY ity of tablet 00:00: MOUTH EVERYDAY Medical AT BEDTIME Branch AMITRIPTYLI 2019- Yes TAKE 1 [facility] ers [facility] 25 mg 1-10 TABLET BY ity of tablet 00:00: [facility] EVERYDAY Medical AT BEDTIME Branch AMITRIPTYLI 2019- Yes TAKE 1 Univ ers NE 25 mg 1-10 TABLET BY ity of tablet 00:00: [facility] EVERYDAY Medical AT BEDTIME Branch AMITRIPTYLI 2019- Yes TAKE 1 Univ ers NE 25 mg 1-10 TABLET BY ity of tablet 00:00: MOUTH EVERYDAY Medical AT BEDTIME Branch AMITRIPTYLI 2019- Yes TAKE 1 [facility] 25 mg 1-10 TABLET BY ity of tablet 00:00: [facility] EVERYDAY Medical AT BEDTIME Branch AMITRIPTYLI 2019- Yes TAKE 1 Univ ers NE 25 mg 1-10 TABLET BY ity of tablet 00:00: [facility] 00 EVERYDAY Medical AT BEDTIME Branch AMITRIPTYLI 2019- Yes TAKE 1 Univ ers NE 25 mg 1-10 TABLET BY ity of tablet 00:00: MOUTH 00 EVERYDAY Medical AT BEDTIME Branch AMITRIPTYLI 2019 Yes TAKE 1 [facility] 25 mg 1-10 TABLET BY ity of tablet 00:00: MOUTH [place] 00 EVERYDAY Medical AT BEDTIME Branch AMITRIPTYLI 2019- Yes TAKE 1 [facility] ers [facility] 25 mg 1-10 TABLET BY ity of tablet 00:00: MOUTH [place] 00 EVERYDAY Medical AT BEDTIME Branch AMITRIPTYLI 2019-02 Yes TAKE 1 [facility] 25 mg 1-10 TABLET BY ity of tablet 00:00: MOUTH [place] 00 EVERYDAY Medical AT BEDTIME Branch AMITRIPTYLI 2019-02 Yes TAKE 1 [facility] 25 mg 1-10 TABLET BY ity of tablet 00:00: MOUTH [place] 00 EVERYDAY Medical AT BEDTIME Branch AMITRIPTYLI 2019-02 Yes TAKE 1 [facility] ers NE 25 mg 1-10 TABLET BY ity of tablet 00:00: [facility] 00 EVERYDAY Medical AT BEDTIME Branch AMITRIPTYLI 2019-02 Yes TAKE 1 Univ ers NE 25 mg 1-10 TABLET BY ity of tablet 00:00: [facility] 00 EVERYDAY Medical AT BEDTIME Branch AMITRIPTYLI 2019-02 Yes TAKE 1 Univ ers NE 25 mg 1-10 TABLET BY ity of tablet 00:00: [facility] 00 EVERYDAY Medical AT BEDTIME Branch AMITRIPTYLI 2019-02 Yes TAKE 1 Univ ers NE 25 mg 1-10 TABLET BY ity of tablet 00:00: [facility] 00 EVERYDAY Medical AT BEDTIME Branch AMITRIPTYLI 2019-02- No TAKE 1 Uni vers NE 25 mg 1-10 05-05 TABLET BY ity o f tablet 00:00: 00:00 [facility] [place] 00 :00 EVERYDAY Medical AT BEDTIME Branch butorphanol 2019- Yes 2745 USE 1 Unive rs 10 mg/mL 1-09 SPRAY IN ity of nasal spray 00:00: [place] NOSTRIL Medical EVERY 8 Branch HOURS NEEDED FOR HEADACHE Indication s: chronic pain, Headache butorphanol 2019-02 Yes 2745 USE 1 Unive rs 10 mg/mL 1-09 SPRAY IN ity of nasal spray 00:00: [place] [facility] Medical EVERY 8 Branch HOURS NEEDED FOR HEADACHE Indication s: chronic pain, Headache butorphanol 2019-02 Yes 2745 USE 1 Unive rs 10 mg/mL 1-09 SPRAY IN ity of nasal spray 00:00: [place] [facility] Medical EVERY 8 Branch HOURS NEEDED FOR HEADACHE Indication s: chronic pain, Headache butorphanol 2020-1 2020- No 2745 USE 1 Univ ers 10 mg/mL 1-09 12-07 SPRAY IN ity of nasal spray 00:00: 00:00 ONE [place] 00 :00 NOSTRIL Medical EVERY 8 Branch HOURS NEEDED FOR HEADACHE Indication s: chronic pain, Headache butorphanol 2020-1 Yes 2745 USE 1 Unive rs 10 mg/mL 0-09 SPRAY IN ity of nasal spray 00:00: ONE [place] [facility] Medical EVERY 8 Branch HOURS NEEDED FOR HEADACHE Indication s: chronic pain, Headache butorphanol 2020-1 Yes 2745 USE 1 Unive rs 10 mg/mL 0-09 SPRAY IN ity of nasal spray 00:00: ONE [place] [facility] Medical EVERY 8 Branch HOURS NEEDED FOR HEADACHE Indication s: chronic pain, Headache butorphanol 2020-1 2020- No 2745 USE 1 Univ ers 10 mg/mL 0-09 11-09 SPRAY IN ity of nasal spray 00:00: 00:00 [facility] 00 :00 NOSTRIL Medical EVERY 8 Branch HOURS NEEDED FOR HEADACHE Indication s: chronic pain, Headache butorphanol 2020-0 Yes 2745 USE 1 Unive rs 10 mg/mL 9-11 SPRAY IN ity of nasal spray 00:00: ONE [place] [address] NOSTRIL Medical EVERY 8 Branch HOURS NEEDED FOR HEADACHE Indication s: chronic pain, Headache butorphanol 2020-0 Yes 2745 USE 1 Unive rs 10 mg/mL 9-11 SPRAY IN ity of nasal spray 00:00: ONE [place] [address] NOSTRIL Medical EVERY 8 Branch HOURS NEEDED FOR HEADACHE Indication s: chronic pain, Headache butorphanol 2020-0 2020- No 2745 USE 1 Univ ers 10 mg/mL 9-11 10-09 SPRAY IN ity of nasal spray 00:00: 00:00 [facility] 00 :00 NOSTRIL Medical EVERY 8 Branch HOURS NEEDED FOR HEADACHE Indication s: chronic pain, Headache butorphanol 2020-0 Yes USE 1 Unive rs 10 mg/mL 8-14 SPRAY IN ity of nasal spray 00:00: ONE [place] [address] NOSTRIL Medical EVERY 8 Branch HOURS NEEDED [...] IN ity of nasal spray 00:00: ONE [place] 00 NOSTRIL Medical EVERY 8 Branch HOURS NEEDED FOR HEADACHE Indication s: chronic pain, Headache butorphanol 2020-0 2020- No 2745 USE 1 Univ ers 10 mg/mL 8-14 09-11 SPRAY IN ity of nasal spray 00:00: 00:00 ONE [place] 00 :00 NOSTRIL Medical EVERY 8 Branch HOURS NEEDED FOR HEADACHE Indication s: chronic pain, Headache butorphanol 2020-0 2020- No USE 1 Univ ers 10 mg/mL 8-14 08-14 SPRAY IN ity of nasal spray 00:00: 00:00 ONE [place] 00 :00 NOSTRIL Medical EVERY 8 Branch HOURS NEEDED FOR HEADACHE Indication s: Headache butorphanol 2020-0 Yes USE 1 Unive rs 10 mg/mL 7-14 SPRAY IN ity of nasal spray 00:00: ONE [place] [address] NOSTRIL Medical EVERY 8 Branch HOURS NEEDED FOR HEADACHE Indication s: Headache butorphanol 2020-0 2020- No USE 1 Univ ers 10 mg/mL 7-14 08-14 SPRAY IN ity of nasal spray 00:00: 00:00 [facility] 00 :00 NOSTRIL Medical EVERY 8 Branch HOURS NEEDED FOR HEADACHE Indication s: Headache butorphanol 2020-0 2020- No USE 1 Univ ers 10 mg/mL 6-09 07-14 SPRAY IN ity of nasal spray 00:00: 00:00 [facility] 00 :00 NOSTRIL Medical EVERY 8 Branch HOURS NEEDED FOR HEADACHE butorphanol 2020-0 Yes USE 1 Unive rs 10 mg/mL 6-04 SPRAY IN ity of nasal spray 00:00: ONE [place] [address] NOSTRIL Medical EVERY 8 Branch HOURS NEEDED FOR HEADACHE butorphanol 2020-0 Yes USE 1 Unive rs 10 mg/mL 6-04 SPRAY IN ity of nasal spray 00:00: ONE [place] [address] NOSTRIL Medical EVERY 8 Branch HOURS NEEDED FOR HEADACHE butorphanol 2020-0 Yes USE 1 Unive rs 10 mg/mL 6-04 SPRAY IN ity of nasal spray 00:00: ONE [place] [address] NOSTRIL Medical EVERY 8 Branch HOURS NEEDED FOR HEADACHE butorphanol 2020-0 Yes USE 1 Unive rs 10 mg/mL 6-04 SPRAY IN ity of nasal spray 00:00: [place] NOSTRIL Medical EVERY 8 Branch HOURS NEEDED FOR HEADACHE butorphanol 2020-0 Yes USE 1 Unive rs 10 mg/mL 6-04 SPRAY IN ity of nasal spray 00:00: [place] [facility] Medical EVERY 8 Branch HOURS NEEDED FOR HEADACHE butorphanol 2020-0 Yes USE 1 Unive rs 10 mg/mL 6-04 SPRAY IN ity of nasal spray 00:00: [place] [facility] Medical EVERY 8 Branch HOURS NEEDED FOR HEADACHE butorphanol 2020-0 Yes USE 1 Unive rs 10 mg/mL 6-04 SPRAY IN ity of nasal spray 00:00: [place] [facility] Medical EVERY 8 Branch HOURS NEEDED FOR HEADACHE SERTRALINE 2020-0 Yes [id number] TAKE 1 U nivers 25 mg 5-21 TABLET BY ity of tablet 00:00: [facility] EVERY DAY Medical Branch SERTRALINE 2020-0 Yes [id number] TAKE 1 U nivers 25 mg 5-21 TABLET BY ity of tablet 00:00: [facility] EVERY DAY Medical Branch SERTRALINE 2020-0 Yes [id number] TAKE 1 U nivers 25 mg 5-21 TABLET BY ity of tablet 00:00: [facility] EVERY DAY Medical Branch SERTRALINE 2020-0 Yes [id number] TAKE 1 U nivers 25 mg 5-21 TABLET BY ity of tablet 00:00: [facility] EVERY DAY Medical Branch SERTRALINE 2020-0 Yes [id number] TAKE 1 U nivers 25 mg 5-21 TABLET BY ity of tablet 00:00: [facility] EVERY DAY Medical Branch SERTRALINE 2020-0 Yes [id number] TAKE 1 U nivers 25 mg 5-21 TABLET BY ity of tablet 00:00: [facility] EVERY DAY Medical Branch SERTRALINE 2020-0 Yes [id number] TAKE 1 U nivers 25 mg 5-21 TABLET BY ity of tablet 00:00: [facility] EVERY DAY Medical Branch SERTRALINE 2020-0 Yes [id number] TAKE 1 U nivers 25 mg 5-21 TABLET BY ity of tablet 00:00: [facility] EVERY DAY Medical Branch SERTRALINE 2020-0 Yes [id number] TAKE 1 U nivers 25 mg 5-21 TABLET BY ity of tablet 00:00: MOUTH [place] EVERY DAY Medical Branch SERTRALINE 2020-0 Yes [id number] TAKE 1 U nivers 25 mg 5-21 TABLET BY ity of tablet 00:00: MOUTH [place] EVERY DAY Medical Branch SERTRALINE 2020-0 Yes [id number] TAKE 1 U nivers 25 mg 5-21 TABLET BY ity of tablet 00:00: [facility] EVERY DAY Medical Branch SERTRALINE 2020-0 Yes [id number] TAKE 1 U nivers 25 mg 5-21 TABLET BY ity of tablet 00:00: MOUTH EVERY DAY Medical Branch SERTRALINE 2020-0 Yes [id number] TAKE 1 U nivers 25 mg 5-21 TABLET BY ity of tablet 00:00: [facility] EVERY DAY Medical Branch SERTRALINE 2020-0 Yes [id number] TAKE 1 U nivers 25 mg 5-21 TABLET BY ity of tablet 00:00: [facility] EVERY DAY Medical Branch SERTRALINE 2020-0 Yes [id number] TAKE 1 U nivers 25 mg 5-21 TABLET BY ity of tablet 00:00: [facility] EVERY DAY Medical Branch SERTRALINE 2020-0 Yes [id number] TAKE 1 U nivers 25 mg 5-21 TABLET BY ity of tablet 00:00: [facility] EVERY DAY Medical Branch SERTRALINE 2020-0 Yes [id number] TAKE 1 U nivers 25 mg 5-21 TABLET BY ity of tablet 00:00: [facility] EVERY DAY Medical Branch SERTRALINE 2020-0 Yes [id number] TAKE 1 U nivers 25 mg 5-21 TABLET BY ity of tablet 00:00: [facility] EVERY DAY Medical Branch SERTRALINE 2020-0 Yes [id number] TAKE 1 U nivers 25 mg 5-21 TABLET BY ity of tablet 00:00: [facility] EVERY DAY Medical Branch SERTRALINE 2020-0 Yes [id number] TAKE 1 U nivers 25 mg 5-21 TABLET BY ity of tablet 00:00: [facility] EVERY DAY Medical Branch SERTRALINE 2020-0 Yes [id number] TAKE 1 U nivers 25 mg 5-21 TABLET BY ity of tablet 00:00: [facility] EVERY DAY Medical Branch SERTRALINE 2020-0 Yes [id number] TAKE 1 U nivers 25 mg 5-21 TABLET BY ity of tablet 00:00: [facility] EVERY DAY Medical Branch SERTRALINE 2020-0 Yes [id number] TAKE 1 U nivers 25 mg 5-21 TABLET BY ity of tablet 00:00: [facility] EVERY DAY Medical Branch SERTRALINE 2020-0 Yes [id number] TAKE 1 U nivers 25 mg 5-21 TABLET BY ity of tablet 00:00: [facility] EVERY DAY Medical Branch SERTRALINE 2020-0 Yes [id number] TAKE 1 U nivers 25 mg 5-21 TABLET BY ity of tablet 00:00: [facility] EVERY DAY Medical Branch SERTRALINE 2020-0 Yes [id number] TAKE 1 U nivers 25 mg 5-21 TABLET BY ity of tablet 00:00: [facility] EVERY DAY Medical Branch SERTRALINE 2020-0 Yes [id number] TAKE 1 U nivers 25 mg 5-21 TABLET BY ity of tablet 00:00: [facility] EVERY DAY Medical Branch SERTRALINE 2020-0 Yes [id number] TAKE 1 U nivers 25 mg 5-21 TABLET BY ity of tablet 00:00: [facility] EVERY DAY Medical Branch SERTRALINE 2020-0 Yes [id number] TAKE 1 U nivers 25 mg 5-21 TABLET BY ity of tablet 00:00: [facility] EVERY DAY Medical Branch SERTRALINE 2020-0 Yes [id number] TAKE 1 U nivers 25 mg 5-21 TABLET BY ity of tablet 00:00: [facility] EVERY DAY Medical Branch SERTRALINE 2020-0 Yes [id number] TAKE 1 U nivers 25 mg 5-21 TABLET BY ity of tablet 00:00: [facility] EVERY DAY Medical Branch SERTRALINE 2020-0 Yes [id number] TAKE 1 U nivers 25 mg 5-21 TABLET BY ity of tablet 00:00: [facility] EVERY DAY Medical Branch SERTRALINE 2020-0 Yes [id number] TAKE 1 U nivers 25 mg 5-21 TABLET BY ity of tablet 00:00: [facility] EVERY DAY Medical Branch SERTRALINE 2020-0 Yes [id number] TAKE 1 U nivers 25 mg 5-21 TABLET BY ity of tablet 00:00: [facility] EVERY DAY Medical Branch SERTRALINE 2020-0 Yes [id number] TAKE 1 U nivers 25 mg 5-21 TABLET BY ity of tablet 00:00: [facility] EVERY DAY Medical Branch SERTRALINE 2020-0 Yes [id number] TAKE 1 U nivers 25 mg 5-21 TABLET BY ity of tablet 00:00: MOUTH [place] EVERY DAY Medical Branch SERTRALINE 2020-0 Yes [id number] TAKE 1 U nivers 25 mg 5-21 TABLET BY ity of tablet 00:00: [facility] EVERY DAY Medical Branch SERTRALINE 2020-0 Yes [id number] TAKE 1 U nivers 25 mg 5-21 TABLET BY ity of tablet 00:00: MOUTH [place] EVERY DAY Medical Branch SERTRALINE 2020-0 Yes [id number] TAKE 1 U nivers 25 mg 5-21 TABLET BY ity of tablet 00:00: MOUTH [place] EVERY DAY Medical Branch SERTRALINE 2020-0 Yes [id number] TAKE 1 U nivers 25 mg 5-21 TABLET BY ity of tablet 00:00: [facility] EVERY DAY Medical Branch SERTRALINE 2020-0 Yes [id number] TAKE 1 U nivers 25 mg 5-21 TABLET BY ity of tablet 00:00: [facility] EVERY DAY Medical Branch SERTRALINE 2020-0 Yes [id number] TAKE 1 U nivers 25 mg 5-21 TABLET BY ity of tablet 00:00: [facility] 00 EVERY DAY Medical Branch SERTRALINE 2020-0 Yes [id number] TAKE 1 U nivers 25 mg 5-21 TABLET BY ity of tablet 00:00: [facility] 00 EVERY DAY Medical Branch butorphanol 2020-0 Yes USE 1 Unive rs 10 mg/mL 5-05 SPRAY IN ity of nasal spray 00:00: ONE [place] [facility] Medical EVERY 8 Branch HOURS NEEDED FOR HEADACHE amitriptyli 2020-0 Yes 25mg Take 1 Univ ers ne 25 mg 5-05 tablet by ity of tablet 00:00: mouth at [place] [address] bedtime. Medical Branch butorphanol 2020-0 Yes USE 1 Unive rs 10 mg/mL 5-05 SPRAY IN ity of nasal spray 00:00: ONE [place] NOSTRIL Medical EVERY 8 Branch HOURS NEEDED FOR HEADACHE amitriptyli 2020-0 Yes 25mg Take 1 Univ ers ne 25 mg 5-05 tablet by ity of tablet 00:00: mouth at [place] [address] bedtime. Medical Branch butorphanol 2020-0 Yes USE 1 Unive rs 10 mg/mL 5-05 SPRAY IN ity of nasal spray 00:00: ONE [place] [facility]STRIL Medical EVERY 8 Branch HOURS NEEDED FOR HEADACHE amitriptyli 2020-0 Yes 25mg Take 1 Univ ers ne 25 mg 5-05 tablet by ity of tablet 00:00: mouth at [place] [address] bedtime. Medical Branch butorphanol 2020-0 Yes USE 1 Unive rs 10 mg/mL 5-05 SPRAY IN ity of nasal spray 00:00: ONE [place] [facility] Medical EVERY 8 Branch HOURS NEEDED FOR HEADACHE amitriptyli 2020-0 Yes 25mg Take 1 Univ ers ne 25 mg 5-05 tablet by ity of tablet 00:00: mouth at [place] [address] bedtime. Medical Branch butorphanol 2020-0 Yes USE 1 Unive rs 10 mg/mL 5-05 SPRAY IN ity of nasal spray 00:00: ONE [place] [facility] Medical EVERY 8 Branch HOURS NEEDED FOR HEADACHE amitriptyli 2020-0 Yes 25mg Take 1 Univ ers ne 25 mg 5-05 tablet by ity of tablet 00:00: mouth at [place] [address] bedtime. Medical Branch amitriptyli 2020-0 Yes 25mg Take 1 Univ ers ne 25 mg 5-05 tablet by ity of tablet 00:00: mouth at [place] [address] bedtime. Medical Branch amitriptyli 2020-0 Yes 25mg Take 1 Univ ers ne 25 mg 5-05 tablet by ity of tablet 00:00: mouth at [place] [address] bedtime. Medical Branch amitriptyli 2020-0 Yes 25mg Take 1 Univ ers ne 25 mg 5-05 tablet by ity of tablet 00:00: mouth at [place] [address] bedtime. Medical Branch amitriptyli 2020-0 Yes 25mg Take 1 Univ ers ne 25 mg 5-05 tablet by ity of tablet 00:00: mouth at [place] [address] bedtime. Medical Branch amitriptyli 2020-0 Yes 25mg Take 1 Univ ers ne 25 mg 5-05 tablet by ity of tablet 00:00: mouth at [place] [address] bedtime. Medical Branch amitriptyli 2020-0 Yes 25mg Take 1 Univ ers ne 25 mg 5-05 tablet by ity of tablet 00:00: mouth at [place] [address] bedtime. Medical Branch amitriptyli 2020-0 Yes 25mg Take 1 [facility] 25 mg 5-05 tablet by it[facility] of tablet 00:00: mouth at [place] [address] bedtime. Medical Branch amitriptyli 2020-0 Yes 25mg Take 1 [facility] 25 mg 5-05 tablet by it[facility] of tablet 00:00: mouth at [place] [address] bedtime. Medical Branch amitriptyli 2020-0 Yes 25mg Take 1 [facility] 25 mg 5-05 tablet by it[facility] of tablet 00:00: mouth at [place] [address] bedtime. Medical Branch amitriptyli 2020-0 Yes 25mg Take 1 [facility] 25 mg 5-05 tablet by ity of tablet 00:00: mouth at [place] [address] bedtime. Medical Branch amitriptyli 2020-0 Yes 25mg Take 1 [facility] 25 mg 5-05 tablet by ity of tablet 00:00: mouth at [place] [address] bedtime. Medical Branch amitriptyli 2020-0 Yes 25mg Take 1 [facility] 25 mg 5-05 tablet by ity of tablet 00:00: mouth at [place] [address] bedtime. Medical Branch amitriptyli 2020-0 Yes 25mg Take 1 [facility] 25 mg 5-05 tablet by ity of tablet 00:00: mouth at [place] [address] bedtime. Medical Branch amitriptyli 2020-0 Yes 25mg Take 1 [facility] 25 mg 5-05 tablet by ity of tablet 00:00: mouth at [place] [address] bedtime. Medical Branch amitriptyli 2020-0 Yes 25mg Take 1 [facility] 25 mg 5-05 tablet by ity of tablet 00:00: mouth at [place] [address] bedtime. Medical Branch amitriptyli 2020-0 Yes 25mg Take 1 [facility] 25 mg 5-05 tablet by ity of tablet 00:00: mouth at [place] [address] bedtime. Medical Branch amitriptyli 2020-0 Yes 25mg Take 1 [facility] 25 mg 5-05 tablet by ity of tablet 00:00: mouth at [place] [address] bedtime. Medical Branch amitriptyli 2020-0 2020- No 25mg Take 1 [facility] 25 mg 5-05 11-10 tablet by ity o f tablet 00:00: 00:00 mouth at [place] 00 :00 bedtime. Medical Branch butorphanol 2020-0 2020- No USE 1 [facility] 10 mg/mL 5-05 06-04 SPRAY IN ity of nasal spray 00:00: 00:00 ONE [place] 00 :00 NOSTRIL Medical EVERY 8 Branch HOURS NEEDED FOR HEADACHE butorphanol 2020-0 2020- No USE 1 [facility] 10 mg/mL 5-05 06-04 SPRAY IN ity of nasal spray 00:00: 00:00 [facility] 00 :00 NOSTRIL Medical EVERY 8 Branch HOURS NEEDED FOR HEADACHE AMITRIPTYLI 2020-0 Yes TAKE 1 [facility] NE 25 mg 4-14 TABLET BY ity of tablet 00:00: MOUTH [place] 00 EVERYDAY Medical AT BEDTIME Branch AMITRIPTYLI 2020-0 2020- No TAKE 1 [facility] NE 25 mg 4-14 05-05 TABLET BY ity o f tablet 00:00: 00:00 [facility] 00 :00 EVERYDAY Medical AT BEDTIME Branch butorphanol 2020-0 Yes USE 1 [facility] 10 mg/mL 4-01 SPRAY IN ity of nasal spray 00:00: [facility] NOSTRIL Medical EVERY 8 Branch HOURS NEEDED FOR HEADACHE butorphanol 2020-0 Yes USE 1 [facility] 10 mg/mL 4-01 SPRAY IN ity of nasal spray 00:00: [place] [id number] NOSTRIL Medical EVERY 8 Branch HOURS NEEDED FOR HEADACHE butorphanol 2020-0 2020- No USE 1 [facility] ers 10 mg/mL 4-01 05-05 SPRAY IN ity of nasal spray 00:00: 00:00 [facility] 00 :00 NOSTRIL Medical EVERY 8 Branch HOURS NEEDED FOR HEADACHE AMITRIPTYLI 2020-0 Yes TAKE 1 [facility] NE 25 mg 3-30 TABLET BY ity of tablet 00:00: MOUTH [place] 00 EVERYDAY Medical AT BEDTIME Branch AMITRIPTYLI 2020-0 Yes TAKE 1 [facility] 25 mg 3-30 TABLET BY ity of tablet 00:00: [facility] [place] 00 EVERYDAY Medical AT BEDTIME Branch AMITRIPTYLI 2020-0 2020- No TAKE 1 [facility] vers NE 25 mg 3-30 04-14 TABLET BY ity o f tablet 00:00: 00:00 [facility] [place] 00 :00 EVERYDAY Medical AT BEDTIME Branch sulfamethox 2020-0 Yes [id number] 1{tbl} Take 1 [facility] azole-trime 3-25 tablet by ity of thoprim 00:00: mouth 2 [place] 800-160 mg 00 (two) Medical per tablet times Branch daily. sulfamethox 2020-0 Yes [id number] 1{tbl} Take 1 [facility] azole-trime 3-25 tablet by ity of thoprim 00:00: mouth 2 [place] 800-160 mg 00 (two) Medical per tablet times Branch daily. sulfamethox 2020-0 Yes [id number] 1{tbl} Take 1 [facility] azole-trime 3-25 tablet by ity of thoprim 00:00: mouth 2 [place] 800-160 mg 00 (two) Medical per tablet times Branch daily. sulfamethox 2020-0 Yes [id number] 1{tbl} Take 1 [facility] azole-trime 3-25 tablet by ity of thoprim 00:00: mouth 2 [place] 800-160 mg 00 (two) Medical per tablet times Branch daily. sulfamethox 2020-0 Yes [id number] 1{tbl} Take 1 [facility] azole-trime 3-25 tablet by ity of thoprim 00:00: mouth 2 [place] 800-160 mg 00 (two) Medical per tablet times Branch daily. sulfamethox 2020-0 Yes [id number] 1{tbl} Take 1 [facility] azole-trime 3-25 tablet by ity of thoprim 00:00: mouth 2 [place] 800-160 mg 00 (two) Medical per tablet times Branch daily. sulfamethox 2020-0 Yes [id number] 1{tbl} Take 1 [facility] azole-trime 3-25 tablet by ity of thoprim 00:00: mouth 2 [place] 800-160 mg 00 (two) Medical per tablet times Branch daily. sulfamethox 2020-0 Yes [id number] 1{tbl} Take 1 [facility] azole-trime 3-25 tablet by ity of thoprim 00:00: mouth 2 [place] 800-160 mg 00 (two) Medical per tablet times Branch daily. sulfamethox 2020-0 Yes [id number] 1{tbl} Take 1 [facility] azole-trime 3-25 tablet by ity of thoprim 00:00: mouth 2 [place] 800-160 mg 00 (two) Medical per tablet times Branch daily. sulfamethox 2020-0 Yes [id number] 1{tbl} Take 1 [facility] azole-trime 3-25 tablet by ity of thoprim 00:00: mouth 2 [place] 800-160 mg 00 (two) Medical per tablet times Branch daily. sulfamethox 2020-0 Yes [id number] 1{tbl} Take 1 [facility] azole-trime 3-25 tablet by ity of thoprim 00:00: mouth 2 [place] 800-160 mg 00 (two) Medical per tablet times Branch daily. sulfamethox 2020-0 Yes [id number] 1{tbl} Take 1 [facility] azole-trime 3-25 tablet by ity of thoprim 00:00: mouth 2 [place] 800-160 mg 00 (two) Medical per tablet times Branch daily. sulfamethox 2020-0 Yes [id number] 1{tbl} Take 1 [facility] azole-trime 3-25 tablet by ity of thoprim 00:00: mouth 2 [place] 800-160 mg 00 (two) Medical per tablet times Branch daily. sulfamethox 2020-0 Yes [id number] 1{tbl} Take 1 [facility] azole-trime 3-25 tablet by ity of thoprim 00:00: mouth 2 [place] 800-160 mg 00 (two) Medical per tablet times Branch daily. sulfamethox 2020-0 Yes [id number] 1{tbl} Take 1 [facility] azole-trime 3-25 tablet by ity of thoprim 00:00: mouth 2 [place] 800-160 mg 00 (two) Medical per tablet times Branch daily. sulfamethox 2020-0 Yes [id number] 1{tbl} Take 1 [facility] azole-trime 3-25 tablet by ity of thoprim 00:00: mouth 2 [place] 800-160 mg 00 (two) Medical per tablet times Branch daily. sulfamethox 2020-0 Yes [id number] 1{tbl} Take 1 [facility] azole-trime 3-25 tablet by ity of thoprim 00:00: mouth 2 [place] 800-160 mg 00 (two) Medical per tablet times Branch daily. sulfamethox 2020-0 Yes [id number] 1{tbl} Take 1 [facility] azole-trime 3-25 tablet by ity of thoprim 00:00: mouth 2 [place] 800-160 mg 00 (two) Medical per tablet times Branch daily. sulfamethox 2020-0 Yes [id number] 1{tbl} Take 1 [facility] azole-trime 3-25 tablet by ity of thoprim 00:00: mouth 2 [place] 800-160 mg 00 (two) Medical per tablet times Branch daily. sulfamethox 2020-0 Yes [id number] 1{tbl} Take 1 [facility] azole-trime 3-25 tablet by ity of thoprim 00:00: mouth 2 [place] 800-160 mg 00 (two) Medical per tablet times Branch daily. sulfamethox 2020-0 Yes [id number] 1{tbl} Take 1 [facility] azole-trime 3-25 tablet by ity of thoprim 00:00: mouth 2 [place] 800-160 mg 00 (two) Medical per tablet times Branch daily. sulfamethox 2020-0 Yes [id number] 1{tbl} Take 1 [facility] azole-trime 3-25 tablet by ity of thoprim 00:00: mouth 2 [place] 800-160 mg 00 (two) Medical per tablet times Branch daily. sulfamethox 2020-0 Yes [id number] 1{tbl} Take 1 [facility] azole-trime 3-25 tablet by ity of thoprim 00:00: mouth 2 [place] 800-160 mg 00 (two) Medical per tablet times Branch daily. sulfamethox 2020-0 Yes [id number] 1{tbl} Take 1 [facility] azole-trime 3-25 tablet by ity of thoprim 00:00: mouth 2 [place] 800-160 mg 00 (two) Medical per tablet times Branch daily. sulfamethox 2020-0 Yes [id number] 1{tbl} Take 1 [facility] azole-trime 3-25 tablet by ity of thoprim 00:00: mouth 2 [place] 800-160 mg 00 (two) Medical per tablet times Branch daily. sulfamethox 2020-0 Yes [id number] 1{tbl} Take 1 [facility] azole-trime 3-25 tablet by ity of thoprim 00:00: mouth 2 [place] 800-160 mg 00 (two) Medical per tablet times Branch daily. sulfamethox 2020-0 Yes [id number] 1{tbl} Take 1 [facility] azole-trime 3-25 tablet by ity of thoprim 00:00: mouth 2 [place] 800-160 mg 00 (two) Medical per tablet times Branch daily. sulfamethox 2020-0 Yes [id number] 1{tbl} Take 1 [facility] azole-trime 3-25 tablet by ity of thoprim 00:00: mouth 2 [place] 800-160 mg 00 (two) Medical per tablet times Branch daily. sulfamethox 2020-0 Yes [id number] 1{tbl} Take 1 [facility] azole-trime 3-25 tablet by ity of thoprim 00:00: mouth 2 [place] 800-160 mg 00 (two) Medical per tablet times Branch daily. sulfamethox 2020-0 Yes [id number] 1{tbl} Take 1 [facility] azole-trime 3-25 tablet by ity of thoprim 00:00: mouth 2 [place] 800-160 mg 00 (two) Medical per tablet times Branch daily. sulfamethox 2020-0 Yes [id number] 1{tbl} Take 1 [facility] azole-trime 3-25 tablet by ity of thoprim 00:00: mouth 2 [place] 800-160 mg 00 (two) Medical per tablet times Branch daily. sulfamethox 2020-0 Yes [id number] 1{tbl} Take 1 [facility] azole-trime 3-25 tablet by ity of thoprim 00:00: mouth 2 [place] 800-160 mg 00 (two) Medical per tablet times Branch daily. sulfamethox 2020-0 Yes [id number] 1{tbl} Take 1 [facility] azole-trime 3-25 tablet by ity of thoprim 00:00: mouth 2 [place] 800-160 mg 00 (two) Medical per tablet times Branch daily. sulfamethox 2020-0 Yes [id number] 1{tbl} Take 1 [facility] azole-trime 3-25 tablet by ity of thoprim 00:00: mouth 2 [place] 800-160 mg 00 (two) Medical per tablet times Branch daily. sulfamethox 2020-0 Yes [id number] 1{tbl} Take 1 [facility] azole-trime 3-25 tablet by ity of thoprim 00:00: mouth 2 [place] 800-160 mg 00 (two) Medical per tablet times Branch daily. sulfamethox 2020-0 Yes [id number] 1{tbl} Take 1 [facility] azole-trime 3-25 tablet by ity of thoprim 00:00: mouth 2 [place] 800-160 mg 00 (two) Medical per tablet times Branch daily. sulfamethox 2020-0 Yes [id number] 1{tbl} Take 1 [facility] azole-trime 3-25 tablet by ity of thoprim 00:00: mouth 2 [place] 800-160 mg 00 (two) Medical per tablet times Branch daily. sulfamethox 2020-0 Yes [id number] 1{tbl} Take 1 [facility] azole-trime 3-25 tablet by ity of thoprim 00:00: mouth 2 [place] 800-160 mg 00 (two) Medical per tablet times Branch daily. sulfamethox 2020-0 Yes [id number] 1{tbl} Take 1 [facility] azole-trime 3-25 tablet by ity of thoprim 00:00: mouth 2 [place] 800-160 mg 00 (two) Medical per tablet times Branch daily. sulfamethox 2020-0 Yes [id number] 1{tbl} Take 1 [facility] azole-trime 3-25 tablet by ity of thoprim 00:00: mouth 2 [place] 800-160 mg 00 (two) Medical per tablet times Branch daily. sulfamethox 2020-0 Yes [id number] 1{tbl} Take 1 [facility] azole-trime 3-25 tablet by ity of thoprim 00:00: mouth 2 [place] 800-160 mg 00 (two) Medical per tablet times Branch daily. sulfamethox 2020-0 Yes [id number] 1{tbl} Take 1 [facility] azole-trime 3-25 tablet by ity of thoprim 00:00: mouth 2 [place] 800-160 mg 00 (two) Medical per tablet times Branch daily. sulfamethox 2020-0 Yes [id number] 1{tbl} Take 1 [facility] azole-trime 3-25 tablet by ity of thoprim 00:00: mouth 2 [place] 800-160 mg 00 (two) Medical per tablet times Branch daily. sulfamethox 2020-0 Yes [id number] 1{tbl} Take 1 [facility] azole-trime 3-25 tablet by ity of thoprim 00:00: mouth 2 [place] 800-160 mg 00 (two) Medical per tablet times Branch daily. sulfamethox 2020-0 Yes [id number] 1{tbl} Take 1 [facility] azole-trime 3-25 tablet by ity of thoprim 00:00: mouth 2 [place] 800-160 mg 00 (two) Medical per tablet times Branch daily. sulfamethox 2020-0 Yes [id number] 1{tbl} Take 1 [facility] azole-trime 3-25 tablet by ity of thoprim 00:00: mouth 2 [place] 800-160 mg 00 (two) Medical per tablet times Branch daily. sulfamethox 2020-0 Yes [id number] 1{tbl} Take 1 [facility] azole-trime 3-25 tablet by ity of thoprim 00:00: mouth 2 [place] 800-160 mg 00 (two) Medical per tablet times Branch daily. sulfamethox 2020-0 Yes [id number] 1{tbl} Take 1 [facility] azole-trime 3-25 tablet by ity of thoprim 00:00: mouth 2 [place] 800-160 mg 00 (two) Medical per tablet times Branch daily. sulfamethox 2020-0 Yes [id number] 1{tbl} Take 1 [facility] azole-trime 3-25 tablet by ity of thoprim 00:00: mouth 2 [place] 800-160 mg 00 (two) Medical per tablet times Branch daily. sulfamethox 2020-0 Yes [id number] 1{tbl} Take 1 [facility] azole-trime 3-25 tablet by ity of thoprim 00:00: mouth 2 [place] 800-160 mg 00 (two) Medical per tablet times Branch daily. sulfamethox 2020-0 Yes [id number] 1{tbl} Take 1 [facility] azole-trime 3-25 tablet [...] by ity of tablet 01:16: mouth 3 [place] 39 (three) Medical times Branch daily as needed for Nausea and Vomiting (N/V). insulin 2020-0 Yes inject [facility] aspart 3-07 under the ity of U-100 01:16: skin. [place] (NOVOLOG 39 Medical FLEXPEN Branch U-100 INSULIN) 100 unit/mL (3 mL) injection carvediloL 2020-0 Yes 25mg Take 25 mg U nivers 25 mg 3-07 by mouth 2 ity of tablet 01:16: (two) [place] 39 times Medical daily with Branch meals. proMETHazin 2020-0 Yes 12.5mg Take 12.5 Univers e 25 mg 3-07 mg by ity of tablet 01:16: mouth 3 [place] 39 (three) Medical times Branch daily as needed for Nausea and Vomiting (N/V). insulin 2020-0 Yes inject [facility] aspart 3-07 under the ity of U-100 01:16: skin. [place] (NOVOLOG 39 Medical FLEXPEN Branch U-100 INSULIN) 100 unit/mL (3 mL) injection carvediloL 2020-0 Yes 25mg Take 25 mg U nivers 25 mg 3-07 by mouth 2 ity of tablet 01:16: (two) [place] 39 times Medical daily with Branch meals. proMETHazin 2020-0 Yes 12.5mg Take 12.5 Univers e 25 mg 3-07 mg by ity of tablet 01:16: mouth 3 [place] 39 (three) Medical times Branch daily as needed for Nausea and Vomiting (N/V). insulin 2020-0 Yes inject [facility] aspart 3-07 under the ity of U-100 01:16: skin. [place] [facility] Medical FLEXPEN Branch U-100 INSULIN) 100 unit/mL (3 mL) injection carvediloL 2020-0 Yes 25mg Take 25 mg U nivers 25 mg 3-07 by mouth 2 ity of tablet 01:16: (two) [place] 39 times Medical daily with Branch meals. proMETHazin 2020-0 Yes 12.5mg Take 12.5 Univers e 25 mg 3-07 mg by ity of tablet 01:16: mouth 3 [place] 39 (three) Medical times Branch daily as needed for Nausea and Vomiting (N/V). insulin 2020-0 Yes inject [facility] aspart 3-07 under the ity of U-100 01:16: skin. [place] (NOVOLOG 39 Medical FLEXPEN Branch U-100 INSULIN) 100 unit/mL (3 mL) injection carvediloL 2020-0 Yes 25mg Take 25 mg U nivers 25 mg 3-07 by mouth 2 ity of tablet 01:16: (two) [place] 39 times Medical daily with Branch meals. proMETHazin 2020-0 Yes 12.5mg Take 12.5 Univers e 25 mg 3-07 mg by ity of tablet 01:16: mouth 3 [place] 39 (three) Medical times Branch daily as needed for Nausea and Vomiting (N/V). insulin 2020-0 Yes inject [facility] aspart 3-07 under the ity of U-100 01:16: skin. [place] (NOVOLOG 39 Medical FLEXPEN Branch U-100 INSULIN) 100 unit/mL (3 mL) injection carvediloL 2020-0 Yes 25mg Take 25 mg U nivers 25 mg 3-07 by mouth 2 ity of tablet 01:16: (two) [place] 39 times Medical daily with Branch meals. proMETHazin 2020-0 Yes 12.5mg Take 12.5 Univers e 25 mg 3-07 mg by ity of tablet 01:16: mouth 3 [place] 39 (three) Medical times Branch daily as needed for Nausea and Vomiting (N/V). insulin 2020-0 Yes inject [facility] aspart 3-07 under the ity of U-100 01:16: skin. [place] (NOVOLOG 39 Medical FLEXPEN Branch U-100 INSULIN) 100 unit/mL (3 mL) injection carvediloL 2020-0 Yes 25mg Take 25 mg U nivers 25 mg 3-07 by mouth 2 ity of tablet 01:16: (two) [place] 39 times Medical daily with Branch meals. proMETHazin 2020-0 Yes 12.5mg Take 12.5 Univers e 25 mg 3-07 mg by ity of tablet 01:16: mouth 3 [place] [address] (three) Medical times Branch daily as needed for Nausea and Vomiting (N/V). insulin 2020-0 Yes inject [facility] aspart 3-07 under the ity of U-100 01:16: skin. [place] (NOVOLOG 39 Medical FLEXPEN Branch U-100 INSULIN) 100 unit/mL (3 mL) injection carvediloL 2020-0 Yes 25mg Take 25 mg U nivers 25 mg 3-07 by mouth 2 ity of tablet 01:16: (two) [place] 39 times Medical daily with Branch meals. proMETHazin 2020-0 Yes 12.5mg Take 12.5 [facility] e 25 mg 3-07 mg by ity of tablet 01:16: mouth 3 [place] [address] (three) Medical times Branch daily as needed for Nausea and Vomiting (N/V). insulin 2020-0 Yes inject [facility] aspart 3-07 under the ity of U-100 01:16: skin. [place] (NOVOLOG 39 Medical FLEXPEN Branch U-100 INSULIN) 100 unit/mL (3 mL) injection carvediloL 2020-0 Yes 25mg Take 25 mg U nivers 25 mg 3-07 by mouth 2 ity of tablet 01:16: (two) [place] 39 times Medical daily with Branch meals. proMETHazin 2020-0 Yes 12.5mg Take 12.5 [facility] e 25 mg 3-07 mg by ity of tablet 01:16: mouth 3 [place] 39 (three) Medical times Branch daily as needed for Nausea and Vomiting (N/V). insulin 2020-0 Yes inject [facility] aspart 3-07 under the ity of U-100 01:16: skin. [place] (NOVOLOG 39 Medical FLEXPEN Branch U-100 INSULIN) 100 unit/mL (3 mL) injection carvediloL 2020-0 Yes 25mg Take 25 mg U nivers 25 mg 3-07 by mouth 2 ity of tablet 01:16: (two) [place] 39 times Medical daily with Branch meals. proMETHazin 2020-0 Yes 12.5mg Take 12.5 [facility] e 25 mg 3-07 mg by ity of tablet 01:16: mouth 3 [place] 39 (three) Medical times Branch daily as needed for Nausea and Vomiting (N/V). insulin 2020-0 Yes inject [facility] aspart 3-07 under the ity of U-100 01:16: skin. [place] (NOVOLOG 39 Medical FLEXPEN Branch U-100 INSULIN) 100 unit/mL (3 mL) injection carvediloL 2020-0 Yes 25mg Take 25 mg U nivers 25 mg 3-07 by mouth 2 ity of tablet 01:16: (two) [place] 39 times Medical daily with Branch meals. proMETHazin 2020-0 Yes 12.5mg Take 12.5 [facility] e 25 mg 3-07 mg by ity of tablet 01:16: mouth 3 [place] 39 (three) Medical times Branch daily as needed for Nausea and Vomiting (N/V). insulin 2020-0 Yes inject [facility] aspart 3-07 under the ity of U-100 01:16: skin. [place] (NOVOLOG 39 Medical FLEXPEN Branch U-100 INSULIN) 100 unit/mL (3 mL) injection carvediloL 2020-0 Yes 25mg Take 25 mg U nivers 25 mg 3-07 by mouth 2 ity of tablet 01:16: (two) [place] 39 times Medical daily with Branch meals. proMETHazin 2020-0 Yes 12.5mg Take 12.5 [facility] e 25 mg 3-07 mg by ity of tablet 01:16: mouth 3 [place] 39 (three) Medical times Branch daily as needed for Nausea and Vomiting (N/V). insulin 2020-0 Yes inject [facility] aspart 3-07 under the ity of U-100 01:16: skin. [place] (NOVOLOG 39 Medical FLEXPEN Branch U-100 INSULIN) 100 unit/mL (3 mL) injection carvediloL 2020-0 Yes 25mg Take 25 mg U nivers 25 mg 3-07 by mouth 2 ity of tablet 01:16: (two) [place] 39 times Medical daily with Branch meals. proMETHazin 2020-0 Yes 12.5mg Take 12.5 [facility] e 25 mg 3-07 mg by ity of tablet 01:16: mouth 3 [place] 39 (three) Medical times Branch daily as needed for Nausea and Vomiting (N/V). insulin 2020-0 Yes inject [facility] aspart 3-07 under the ity of U-100 01:16: skin. [place] (NOVOLOG 39 Medical FLEXPEN Branch U-100 INSULIN) 100 unit/mL (3 mL) injection carvediloL 2020-0 Yes 25mg Take 25 mg U nivers 25 mg 3-07 by mouth 2 ity of tablet 01:16: (two) [place] 39 times Medical daily with Branch meals. proMETHazin 2020-0 Yes 12.5mg Take 12.5 [facility] e 25 mg 3-07 mg by ity of tablet 01:16: mouth 3 [place] [address] (three) Medical times Branch daily as needed for Nausea and Vomiting (N/V). insulin 2020-0 Yes inject [facility] aspart 3-07 under the ity of U-100 01:16: skin. [place] (NOVOLOG 39 Medical FLEXPEN Branch U-100 INSULIN) 100 unit/mL (3 mL) injection carvediloL 2020-0 Yes 25mg Take 25 mg U nivers 25 mg 3-07 by mouth 2 ity of tablet 01:16: (two) [place] 39 times Medical daily with Branch meals. proMETHazin 2020-0 Yes 12.5mg Take 12.5 [facility] e 25 mg 3-07 mg by ity of tablet 01:16: mouth 3 [place] 39 (three) Medical times Branch daily as needed for Nausea and Vomiting (N/V). insulin 2020-0 Yes inject [facility] aspart 3-07 under the ity of U-100 01:16: skin. [place] (NOVOLOG 39 Medical FLEXPEN Branch U-100 INSULIN) 100 unit/mL (3 mL) injection carvediloL 2020-0 Yes 25mg Take 25 mg U nivers 25 mg 3-07 by mouth 2 ity of tablet 01:16: (two) [place] 39 times Medical daily with Branch meals. proMETHazin 2020-0 Yes 12.5mg Take 12.5 [facility] e 25 mg 3-07 mg by ity of tablet 01:16: mouth 3 [place] 39 (three) Medical times Branch daily as needed for Nausea and Vomiting (N/V). insulin 2020-0 Yes inject [facility] aspart 3-07 under the ity of U-100 01:16: skin. [place] (NOVOLOG 39 Medical FLEXPEN Branch U-100 INSULIN) 100 unit/mL (3 mL) injection carvediloL 2020-0 Yes 25mg Take 25 mg U nivers 25 mg 3-07 by mouth 2 ity of tablet 01:16: (two) [place] 39 times Medical daily with Branch meals. proMETHazin 2020-0 Yes 12.5mg Take 12.5 [facility] e 25 mg 3-07 mg by ity of tablet 01:16: mouth 3 [place] [address] (three) Medical times Branch daily as needed for Nausea and Vomiting (N/V). insulin 2020-0 Yes inject [facility] aspart 3-07 under the ity of U-100 01:16: skin. [place] (NOVOLOG 39 Medical FLEXPEN Branch U-100 INSULIN) 100 unit/mL (3 mL) injection carvediloL 2020-0 Yes 25mg Take 25 mg U nivers 25 mg 3-07 by mouth 2 ity of tablet 01:16: (two) [place] 39 times Medical daily with Branch meals. proMETHazin 2020-0 Yes 12.5mg Take 12.5 [facility] e 25 mg 3-07 mg by ity of tablet 01:16: mouth 3 [place] 39 (three) Medical times Branch daily as needed for Nausea and Vomiting (N/V). insulin 2020-0 Yes inject [facility] aspart 3-07 under the ity of U-100 01:16: skin. [place] (NOVOLOG 39 Medical FLEXPEN Branch U-100 INSULIN) 100 unit/mL (3 mL) injection carvediloL 2020-0 Yes 25mg Take 25 mg U nivers 25 mg 3-07 by mouth 2 ity of tablet 01:16: (two) [place] 39 times Medical daily with Branch meals. proMETHazin 2020-0 Yes 12.5mg Take 12.5 [facility] e 25 mg 3-07 mg by ity of tablet 01:16: mouth 3 [place] 39 (three) Medical times Branch daily as needed for Nausea and Vomiting (N/V). insulin 2020-0 Yes inject [facility] aspart 3-07 under the ity of U-100 01:16: skin. [place] (NOVOLOG 39 Medical FLEXPEN Branch U-100 INSULIN) 100 unit/mL (3 mL) injection carvediloL 2020-0 Yes 25mg Take 25 mg U nivers 25 mg 3-07 by mouth 2 ity of tablet 01:16: (two) [place] 39 times Medical daily with Branch meals. proMETHazin 2020-0 Yes 12.5mg Take 12.5 [facility] e 25 mg 3-07 mg by ity of tablet 01:16: mouth 3 [place] [address] (three) Medical times Branch daily as needed for Nausea and Vomiting (N/V). insulin 2020-0 Yes inject [facility] aspart 3-07 under the ity of U-100 01:16: skin. [place] [facility] [place] Medical FLEXPEN Branch U-100 INSULIN) 100 unit/mL (3 mL) injection carvediloL 2020-0 Yes 25mg Take 25 mg U nivers 25 mg 3-07 by mouth 2 ity of tablet 01:16: (two) [place] 39 times Medical daily with Branch meals. proMETHazin 2020-0 Yes 12.5mg Take 12.5 [facility] e 25 mg 3-07 mg by ity of tablet 01:16: mouth 3 [place] 39 (three) Medical times Branch daily as needed for Nausea and Vomiting (N/V). insulin 2020-0 Yes inject [facility] aspart 3-07 under the ity of U-100 01:16: skin. [place] (NOVOLOG 39 Medical FLEXPEN Branch U-100 INSULIN) 100 unit/mL (3 mL) injection carvediloL 2020-0 Yes 25mg Take 25 mg U nivers 25 mg 3-07 by mouth 2 ity of tablet 01:16: (two) [place] 39 times Medical daily with Branch meals. proMETHazin 2020-0 Yes 12.5mg Take 12.5 [facility] e 25 mg 3-07 mg by ity of tablet 01:16: mouth 3 [place] 39 (three) Medical times Branch daily as needed for Nausea and Vomiting (N/V). insulin 2020-0 Yes inject [facility] aspart 3-07 under the ity of U-100 01:16: skin. [place] (NOVOLOG 39 Medical FLEXPEN Branch U-100 INSULIN) 100 unit/mL (3 mL) injection carvediloL 2020-0 Yes 25mg Take 25 mg U nivers 25 mg 3-07 by mouth 2 ity of tablet 01:16: (two) [place] 39 times Medical daily with Branch meals. proMETHazin 2020-0 Yes 12.5mg Take 12.5 [facility] e 25 mg 3-07 mg by ity of tablet 01:16: mouth 3 [place] 39 (three) Medical times Branch daily as needed for Nausea and Vomiting (N/V). insulin 2020-0 Yes inject [facility] aspart 3-07 under the ity of U-100 01:16: skin. [place] (NOVOLOG 39 Medical FLEXPEN Branch U-100 INSULIN) 100 unit/mL (3 mL) injection carvediloL 2020-0 Yes 25mg Take 25 mg U nivers 25 mg 3-07 by mouth 2 ity of tablet 01:16: (two) [place] 39 times Medical daily with Branch meals. proMETHazin 2020-0 Yes 12.5mg Take 12.5 [facility] e 25 mg 3-07 mg by ity of tablet 01:16: mouth 3 [place] [address] (three) Medical times Branch daily as needed for Nausea and Vomiting (N/V). insulin 2020-0 Yes inject [facility] aspart 3-07 under the ity of U-100 01:16: skin. [place] (NOVOLOG 39 Medical FLEXPEN Branch U-100 INSULIN) 100 unit/mL (3 mL) injection carvediloL 2020-0 Yes 25mg Take 25 mg [facility] nivers 25 mg 3-07 by mouth 2 ity of tablet 01:16: (two) [place] 39 times Medical daily with Branch meals. proMETHazin 2020-0 Yes 12.5mg Take 12.5 [facility] e 25 mg 3-07 mg by ity of tablet 01:16: mouth 3 [place] 39 (three) Medical times Branch daily as needed for Nausea and Vomiting (N/V). insulin 2020-0 Yes inject [facility] aspart 3-07 under the ity of U-100 01:16: skin. [place] (NOVOLOG 39 Medical FLEXPEN Branch U-100 INSULIN) 100 unit/mL (3 mL) injection carvediloL 2020-0 Yes 25mg Take 25 mg [facility] nivers 25 mg 3-07 by mouth 2 ity of tablet 01:16: (two) [place] 39 times Medical daily with Branch meals. proMETHazin 2020-0 Yes 12.5mg Take 12.5 [facility] e 25 mg 3-07 mg by ity of tablet 01:16: mouth 3 [place] 39 (three) Medical times Branch daily as needed for Nausea and Vomiting (N/V). insulin 2020-0 Yes inject [facility] aspart 3-07 under the ity of U-100 01:16: skin. [place] (NOVOLOG 39 Medical FLEXPEN Branch U-100 INSULIN) 100 unit/mL (3 mL) injection carvediloL 2020-0 Yes 25mg Take 25 mg [facility] nivers 25 mg 3-07 by mouth 2 ity of tablet 01:16: (two) [place] 39 times Medical daily with Branch meals. proMETHazin 2020-0 Yes 12.5mg Take 12.5 [facility] e 25 mg 3-07 mg by ity of tablet 01:16: mouth 3 [place] 39 (three) Medical times Branch daily as needed for Nausea and Vomiting (N/V). insulin 2020-0 Yes inject [facility] aspart 3-07 under the ity of U-100 01:16: skin. [place] (NOVOLOG 39 Medical FLEXPEN Branch U-100 INSULIN) 100 unit/mL (3 mL) injection carvediloL 2020-0 Yes 25mg Take 25 mg [facility] nivers 25 mg 3-07 by mouth 2 ity of tablet 01:16: (two) [place] 39 times Medical daily with Branch meals. proMETHazin 2020-0 Yes 12.5mg Take 12.5 [facility] e 25 mg 3-07 mg by ity of tablet 01:16: mouth 3 [place] 39 (three) Medical times Branch daily as needed for Nausea and Vomiting (N/V). insulin 2020-0 Yes inject [facility] aspart 3-07 under the ity of U-100 01:16: skin. [place] (NOVOLOG 39 Medical FLEXPEN Branch U-100 INSULIN) 100 unit/mL (3 mL) injection carvediloL 2020-0 Yes 25mg Take 25 mg [facility] nivers 25 mg 3-07 by mouth 2 ity of tablet 01:16: (two) [place] 39 times Medical daily with Branch meals. proMETHazin 2020-0 Yes 12.5mg Take 12.5 [facility] e 25 mg 3-07 mg by ity of tablet 01:16: mouth 3 [place] 39 (three) Medical times Branch daily as needed for Nausea and Vomiting (N/V). insulin 2020-0 Yes inject [facility] aspart 3-07 under the ity of U-100 01:16: skin. [place] (NOVOLOG 39 Medical FLEXPEN Branch U-100 INSULIN) 100 unit/mL (3 mL) injection carvediloL 2020-0 Yes 25mg Take 25 mg [facility] nivers 25 mg 3-07 by mouth 2 ity of tablet 01:16: (two) [place] 39 times Medical daily with Branch meals. proMETHazin 2020-0 Yes 12.5mg Take 12.5 [facility] e 25 mg 3-07 mg by ity of tablet 01:16: mouth 3 [place] 39 (three) Medical times Branch daily as needed for Nausea and Vomiting (N/V). insulin 2020-0 Yes inject [facility] aspart 3-07 under the ity of U-100 01:16: skin. [place] (NOVOLOG 39 Medical FLEXPEN Branch U-100 INSULIN) 100 unit/mL (3 mL) injection carvediloL 2020-0 Yes 25mg Take 25 mg [facility] nivers 25 mg 3-07 by mouth 2 ity of tablet 01:16: (two) [place] 39 times Medical daily with Branch meals. proMETHazin 2020-0 Yes 12.5mg Take 12.5 [facility] e 25 mg 3-07 mg by ity of tablet 01:16: mouth 3 [place] [address] (three) Medical times Branch daily as needed for Nausea and Vomiting (N/V). insulin 2020-0 Yes inject [facility] aspart 3-07 under the ity of U-100 01:16: skin. [place] (NOVOLOG 39 Medical FLEXPEN Branch U-100 INSULIN) 100 unit/mL (3 mL) injection carvediloL 2020-0 Yes 25mg Take 25 mg [facility] nivers 25 mg 3-07 by mouth 2 ity of tablet 01:16: (two) [place] 39 times Medical daily with Branch meals. proMETHazin 2020-0 Yes 12.5mg Take 12.5 [facility] e 25 mg 3-07 mg by ity of tablet 01:16: mouth 3 [place] 39 (three) Medical times Branch daily as needed for Nausea and Vomiting (N/V). insulin 2020-0 Yes inject [facility] aspart 3-07 under the ity of U-100 01:16: skin. [place] (NOVOLOG 39 Medical FLEXPEN Branch U-100 INSULIN) 100 unit/mL (3 mL) injection carvediloL 2020-0 Yes 25mg Take 25 mg [facility] nivers 25 mg 3-07 by mouth 2 ity of tablet 01:16: (two) [place] 39 times Medical daily with Branch meals. proMETHazin 2020-0 Yes 12.5mg Take 12.5 [facility] e 25 mg 3-07 mg by ity of tablet 01:16: mouth 3 [place] 39 (three) Medical times Branch daily as needed for Nausea and Vomiting (N/V). insulin 2020-0 Yes inject [facility] aspart 3-07 under the ity of U-100 01:16: skin. [place] (NOVOLOG 39 Medical FLEXPEN Branch U-100 INSULIN) 100 unit/mL (3 mL) injection carvediloL 2020-0 Yes 25mg Take 25 mg [facility] nivers 25 mg 3-07 by mouth 2 ity of tablet 01:16: (two) [place] 39 times Medical daily with Branch meals. proMETHazin 2020-0 Yes 12.5mg Take 12.5 [facility] e 25 mg 3-07 mg by ity of tablet 01:16: mouth 3 [place] [address] (three) Medical times Branch daily as needed for Nausea and Vomiting (N/V). insulin 2020-0 Yes inject [facility] aspart 3-07 under the ity of U-100 01:16: skin. [place] (NOVOLOG 39 Medical FLEXPEN Branch U-100 INSULIN) 100 unit/mL (3 mL) injection carvediloL 2020-0 Yes 25mg Take 25 mg [facility] nivers 25 mg 3-07 by mouth 2 ity of tablet 01:16: (two) [place] 39 times Medical daily with Branch meals. proMETHazin 2020-0 Yes 12.5mg Take 12.5 [facility] e 25 mg 3-07 mg by ity of tablet 01:16: mouth 3 [place] 39 (three) Medical times Branch daily as needed for Nausea and Vomiting (N/V). insulin 2020-0 Yes inject [facility] aspart 3-07 under the ity of U-100 01:16: skin. [place] (NOVOLOG 39 Medical FLEXPEN Branch U-100 INSULIN) 100 unit/mL (3 mL) injection carvediloL 2020-0 Yes 25mg Take 25 mg [facility] nivers 25 mg 3-07 by mouth 2 ity of tablet 01:16: (two) [place] 39 times Medical daily with Branch meals. proMETHazin 2020-0 Yes 12.5mg Take 12.5 [facility] e 25 mg 3-07 mg by ity of tablet 01:16: mouth 3 [place] 39 (three) Medical times Branch daily as needed for Nausea and Vomiting (N/V). insulin 2020-0 Yes inject [facility] aspart 3-07 under the ity of U-100 01:16: skin. [place] (NOVOLOG 39 Medical FLEXPEN Branch U-100 INSULIN) 100 unit/mL (3 mL) injection carvediloL 2020-0 Yes 25mg Take 25 mg [facility] nivers 25 mg 3-07 by mouth 2 ity of tablet 01:16: (two) [place] 39 times Medical daily with Branch meals. proMETHazin 2020-0 Yes 12.5mg Take 12.5 [facility] e 25 mg 3-07 mg by ity of tablet 01:16: mouth 3 [place] [address] (three) Medical times Branch daily as needed for Nausea and Vomiting (N/V). insulin 2020-0 Yes inject [facility] aspart 3-07 under the ity of U-100 01:16: skin. [place] (NOVOLOG 39 Medical FLEXPEN Branch U-100 INSULIN) 100 unit/mL (3 mL) injection carvediloL 2020-0 Yes 25mg Take 25 mg [facility] nivers 25 mg 3-07 by mouth 2 ity of tablet 01:16: (two) [place] 39 times Medical daily with Branch meals. proMETHazin 2020-0 Yes 12.5mg Take 12.5 [facility] e 25 mg 3-07 mg by ity of tablet 01:16: mouth 3 [place] 39 (three) Medical times Branch daily as needed for Nausea and Vomiting (N/V). insulin 2020-0 Yes inject [facility] aspart 3-07 under the ity of U-100 01:16: skin. [place] (NOVOLOG 39 Medical FLEXPEN Branch U-100 INSULIN) 100 unit/mL (3 mL) injection carvediloL 2020-0 Yes 25mg Take 25 mg [facility] nivers 25 mg 3-07 by mouth 2 ity of tablet 01:16: (two) [place] 39 times Medical daily with Branch meals. proMETHazin 2020-0 Yes 12.5mg Take 12.5 [facility] e 25 mg 3-07 mg by ity of tablet 01:16: mouth 3 [place] 39 (three) Medical times Branch daily as needed for Nausea and Vomiting (N/V). insulin 2020-0 Yes inject [facility] aspart 3-07 under the ity of U-100 01:16: skin. [place] (NOVOLOG 39 Medical FLEXPEN Branch U-100 INSULIN) 100 unit/mL (3 mL) injection carvediloL 2020-0 Yes 25mg Take 25 mg [facility] nivers 25 mg 3-07 by mouth 2 ity of tablet 01:16: (two) [place] 39 times Medical daily with Branch meals. proMETHazin 2020-0 Yes 12.5mg Take 12.5 [facility] e 25 mg 3-07 mg by ity of tablet 01:16: mouth 3 [place] 39 (three) Medical times Branch daily as needed for Nausea and Vomiting (N/V). insulin 2020-0 Yes inject [facility] aspart 3-07 under the ity of U-100 01:16: skin. [place] (NOVOLOG 39 Medical FLEXPEN Branch U-100 INSULIN) 100 unit/mL (3 mL) injection carvediloL 2020-0 Yes 25mg Take 25 mg [facility] nivers 25 mg 3-07 by mouth 2 ity of tablet 01:16: (two) [place] 39 times Medical daily with Branch meals. proMETHazin 2020-0 Yes 12.5mg Take 12.5 [facility] e 25 mg 3-07 mg by ity of tablet 01:16: mouth 3 [place] [address] (three) Medical times Branch daily as needed for Nausea and Vomiting (N/V). insulin 2020-0 Yes inject [facility] aspart 3-07 under the ity of U-100 01:16: skin. [place] (NOVOLOG 39 Medical FLEXPEN Branch U-100 INSULIN) 100 unit/mL (3 mL) injection carvediloL 2020-0 Yes 25mg Take 25 mg [facility] nivers 25 mg 3-07 by mouth 2 ity of tablet 01:16: (two) [place] 39 times Medical daily with Branch meals. proMETHazin 2020-0 Yes 12.5mg Take 12.5 [facility] e 25 mg 3-07 mg by ity of tablet 01:16: mouth 3 [place] 39 (three) Medical times Branch daily as needed for Nausea and Vomiting (N/V). insulin 2020-0 Yes inject [facility] aspart 3-07 under the ity of U-100 01:16: skin. [place] (NOVOLOG 39 Medical FLEXPEN Branch U-100 INSULIN) 100 unit/mL (3 mL) injection carvediloL 2020-0 Yes 25mg Take 25 mg [facility] nivers 25 mg 3-07 by mouth 2 ity of tablet 01:16: (two) [place] 39 times Medical daily with Branch meals. proMETHazin 2020-0 Yes 12.5mg Take 12.5 [facility] e 25 mg 3-07 mg by ity of tablet 01:16: mouth 3 [place] 39 (three) Medical times Branch daily as needed for Nausea and Vomiting (N/V). insulin 2020-0 Yes inject [facility] aspart 3-07 under the ity of U-100 01:16: skin. [place] (NOVOLOG 39 Medical FLEXPEN Branch U-100 INSULIN) 100 unit/mL (3 mL) injection carvediloL 2020-0 Yes 25mg Take 25 mg [facility] nivers 25 mg 3-07 by mouth 2 ity of tablet 01:16: (two) [place] 39 times Medical daily with Branch meals. proMETHazin 2020-0 Yes 12.5mg Take 12.5 [facility] e 25 mg 3-07 mg by ity of tablet 01:16: mouth 3 [place] 39 (three) Medical times Branch daily as needed for Nausea and Vomiting (N/V). insulin 2020-0 Yes inject [facility] aspart 3-07 under the ity of U-100 01:16: skin. [place] (NOVOLOG 39 Medical FLEXPEN Branch U-100 INSULIN) 100 unit/mL (3 mL) injection carvediloL 2020-0 Yes 25mg Take 25 mg [facility] nivers 25 mg 3-07 by mouth 2 ity of tablet 01:16: (two) [place] 39 times Medical daily with Branch meals. proMETHazin 2020-0 Yes 12.5mg Take 12.5 [facility] e 25 mg 3-07 mg by ity of tablet 01:16: mouth 3 [place] 39 (three) Medical times Branch daily as needed for Nausea and Vomiting (N/V). insulin 2020-0 Yes inject [facility] aspart 3-07 under the ity of U-100 01:16: skin. [place] (NOVOLOG 39 Medical FLEXPEN Branch U-100 INSULIN) 100 unit/mL (3 mL) injection carvediloL 2020-0 Yes 25mg Take 25 mg U nivers 25 mg 3-07 by mouth 2 ity of tablet 01:16: (two) [place] 39 times Medical daily with Branch meals. proMETHazin 2020-0 Yes 12.5mg Take 12.5 [facility] e 25 mg 3-07 mg by ity of tablet 01:16: mouth 3 [place] 39 (three) Medical times Branch daily as needed for Nausea and Vomiting (N/V). insulin 2020-0 Yes inject [facility] aspart 3-07 under the ity of U-100 01:16: skin. [place] (NOVOLOG 39 Medical FLEXPEN Branch U-100 INSULIN) 100 unit/mL (3 mL) injection carvediloL 2020-0 Yes 25mg Take 25 mg U nivers 25 mg 3-07 by mouth 2 ity of tablet 01:16: (two) [place] 39 times Medical daily with Branch meals. proMETHazin 2020-0 Yes 12.5mg Take 12.5 [facility] e 25 mg 3-07 mg by ity of tablet 01:16: mouth 3 [place] 39 (three) Medical times Branch daily as needed for Nausea and Vomiting (N/V). insulin 2020-0 Yes inject [facility] aspart 3-07 under the ity of U-100 01:16: skin. [place] (NOVOLOG 39 Medical FLEXPEN Branch U-100 INSULIN) 100 unit/mL (3 mL) injection carvediloL 2020-0 Yes 25mg Take 25 mg U nivers 25 mg 3-07 by mouth 2 ity of tablet 01:16: (two) [place] 39 times Medical daily with Branch meals. proMETHazin 2020-0 Yes 12.5mg Take 12.5 [facility] e 25 mg 3-07 mg by ity of tablet 01:16: mouth 3 [place] [address] (three) Medical times Branch daily as needed for Nausea and Vomiting (N/V). insulin 2020-0 Yes inject [facility] aspart 3-07 under the ity of U-100 01:16: skin. [place] (NOVOLOG 39 Medical FLEXPEN Branch U-100 INSULIN) 100 unit/mL (3 mL) injection carvediloL 2020-0 Yes 25mg Take 25 mg U nivers 25 mg 3-07 by mouth 2 ity of tablet 01:16: (two) [place] 39 times Medical daily with Branch meals. proMETHazin 2020-0 Yes 12.5mg Take 12.5 [facility] e 25 mg 3-07 mg by ity of tablet 01:16: mouth 3 [place] [address] (three) Medical times Branch daily as needed for Nausea and Vomiting (N/V). insulin 2020-0 Yes inject [facility] aspart 3-07 under the ity of U-100 01:16: skin. [place] (NOVOLOG 39 Medical FLEXPEN Branch U-100 INSULIN) 100 unit/mL (3 mL) injection carvediloL 2020-0 Yes 25mg Take 25 mg U nivers 25 mg 3-07 by mouth 2 ity of tablet 01:16: (two) [place] 39 times Medical daily with Branch meals. proMETHazin 2020-0 Yes 12.5mg Take 12.5 [facility] e 25 mg 3-07 mg by ity of tablet 01:16: mouth 3 [place] 39 (three) Medical times Branch daily as needed for Nausea and Vomiting (N/V). insulin 2020-0 Yes inject [facility] aspart 3-07 under the ity of U-100 01:16: skin. [place] (NOVOLOG 39 Medical FLEXPEN Branch U-100 INSULIN) 100 unit/mL (3 mL) injection carvediloL 2020-0 Yes 25mg Take 25 mg U nivers 25 mg 3-07 by mouth 2 ity of tablet 01:16: (two) [place] 39 times Medical daily with Branch meals. proMETHazin 2020-0 Yes 12.5mg Take 12.5 [facility] e 25 mg 3-07 mg by ity of tablet 01:16: mouth 3 [place] [address] (three) Medical times Branch daily as needed for Nausea and Vomiting (N/V). insulin 2020-0 Yes inject [facility] aspart 3-07 under the ity of U-100 01:16: skin. [place] (NOVOLOG 39 Medical FLEXPEN Branch U-100 INSULIN) 100 unit/mL (3 mL) injection carvediloL 2020-0 Yes 25mg Take 25 mg U nivers 25 mg 3-07 by mouth 2 ity of tablet 01:16: (two) [place] 39 times Medical daily with Branch meals. proMETHazin 2020-0 Yes 12.5mg Take 12.5 [facility] e 25 mg 3-07 mg by ity of tablet 01:16: mouth 3 [place] 39 (three) Medical times Branch daily as needed for Nausea and Vomiting (N/V). insulin 2020-0 Yes inject [facility] aspart 3-07 under the ity of U-100 01:16: skin. [place] (NOVOLOG 39 Medical FLEXPEN Branch U-100 INSULIN) 100 unit/mL (3 mL) injection carvediloL 2020-0 Yes 25mg Take 25 mg U nivers 25 mg 3-07 by mouth 2 ity of tablet 01:16: (two) [place] 39 times Medical daily with Branch meals. proMETHazin 2020-0 Yes 12.5mg Take 12.5 [facility] e 25 mg 3-07 mg by ity of tablet 01:16: mouth 3 [place] 39 (three) Medical times Branch daily as needed for Nausea and Vomiting (N/V). insulin 2020-0 Yes inject [facility] aspart 3-07 under the ity of U-100 01:16: skin. [place] (NOVOLOG 39 Medical FLEXPEN Branch U-100 INSULIN) 100 unit/mL (3 mL) injection pregabalin 0 2020- No 300mg Take 300 U nivers 300 mg 04-20 03-06 mg by ity of capsule 01:15: 00:00 mouth. [place] 02 :00 Medical Branch nitroglycer 2019-0 2020- No .3mg Place 0.3 Univers in 0.3 mg 04-20 03-06 mg under ity o f sublingual 01:14: 00:00 the tongue [place] tablet 27 :00 every 5 Medical (five) Branch minutes as needed for Chest pain. losartan-hy 2019-0 2020- No Take by Un osbaldo drochloroth - 03-06 mouth. ity o f iazide 01:14: 00:00 [place] 100-25 mg 09 :00 Medical per tablet Branch insulin 2019-0 2020- No inject [facility] lispro, 3 03-06 under the ity of human, 100 [...] the ity of unit/mL (3 00:22: skin. [place] mL) 08 Medical injection Branch Insulin 2020-0 Yes inject [facility] Detemir 100 3-07 under the ity of unit/mL (3 00:22: skin. [place] mL) 08 Medical injection Branch pregabalin 2020-0 Yes 300mg Take 300 Un osbaldo 300 mg 3-07 mg by ity of capsule 00:22: mouth. [place] 08 Medical Branch acetaminoph 2020-0 Yes 500mg Take 500 U nivers en (TYLENOL 3-07 mg by ity of EXTRA 00:22: mouth [place] STRENGTH) 08 every 6 Medical 500 mg (six) Branch tablet hours as needed for Pain. Insulin 2020-0 Yes inject [facility] Detemir 100 3-07 under the ity of unit/mL (3 00:22: skin. [facility]) 08 Medical injection Branch carvediloL 2020-0 Yes 25mg Take 25 mg U nivers 25 mg 3-07 by mouth. ity of tablet 00:22: [place] [address] Medical Branch proMETHazin 2020-0 Yes 12.5mg Take 12.5 [facility] e 25 mg 3-07 mg by ity of tablet 00:22: mouth [place] [address] every 6 Medical (six) Branch hours as needed for Nausea and Vomiting (N/V). insulin 2020-0 Yes inject [facility] aspart 3-07 under the ity of U-100 00:22: skin. [place] (NOVOLOG 08 Medical FLEXPEN Branch U-100 INSULIN) 100 unit/mL (3 mL) injection Insulin 2020-0 Yes inject [facility] Detemir 100 3-07 under the ity of unit/mL (3 00:22: skin. [place] mL) 08 Medical injection Branch Insulin 2020-0 Yes inject [facility] Detemir 100 3-07 under the ity of unit/mL (3 00:22: skin. [place] mL) 08 Medical injection Branch Insulin 2020-0 Yes inject [facility] Detemir 100 3-07 under the ity of unit/mL (3 00:22: skin. [place] mL) 08 Medical injection Branch Insulin 2020-0 Yes inject [facility] Detemir 100 3-07 under the ity of unit/mL (3 00:22: skin. [place] mL) 08 Medical injection Branch Insulin 2020-0 [...] mg by ity of capsule 00:13: mouth [address] [place] [address] 40 (two) Medical times Branch daily. gabapentin 2020-0 Yes 100mg Take 100 Un osbaldo 100 mg 3-07 mg by ity of capsule 00:13: mouth 2 [place] 40 (two) Medical times Branch daily. gabapentin 2020-0 Yes 100mg Take 100 Un osbaldo 100 mg 3-07 mg by ity of capsule 00:13: mouth 2 [place] 40 (two) Medical times Branch daily. gabapentin 2020-0 Yes 100mg Take 100 Un osbaldo 100 mg 3-07 mg by ity of capsule 00:13: mouth [address] [place] [address] 40 (two) Medical times Branch daily. gabapentin 2020-0 Yes 100mg Take 100 Un osbaldo 100 mg 3-07 mg by ity of capsule 00:13: mouth [address] [place] [address] 40 (two) Medical times Branch daily. gabapentin 2020-0 Yes 100mg Take 100 Un osbaldo 100 mg 3-07 mg by ity of capsule 00:13: mouth [address] [place] [address] 40 (two) Medical times Branch daily. gabapentin 2020-0 Yes 100mg Take 100 Un osbaldo 100 mg 3-07 mg by ity of capsule 00:13: mouth 2 [place] 40 (two) Medical times Branch daily. gabapentin 2020-0 Yes 100mg Take 100 Un osbaldo 100 mg 3-07 mg by ity of capsule 00:13: mouth [address] [place] [address] 40 (two) Medical times Branch daily. gabapentin 2020-0 Yes 100mg Take 100 Un osbaldo 100 mg 3-07 mg by ity of capsule 00:13: mouth 2 [place] 40 (two) Medical times Branch daily. gabapentin 2020-0 Yes 100mg Take 100 Un osbaldo 100 mg 3-07 mg by ity of capsule 00:13: mouth 2 [place] 40 (two) Medical times Branch daily. gabapentin 2020-0 Yes 100mg Take 100 Un osbaldo 100 mg 3-07 mg by ity of capsule 00:13: mouth 2 [place] 40 (two) Medical times Branch daily. gabapentin 2020-0 Yes 100mg Take 100 Un osbaldo 100 mg 3-07 mg by ity of capsule 00:13: mouth 2 [place] 40 (two) Medical times Branch daily. gabapentin 2020-0 Yes 100mg Take 100 Un osbaldo 100 mg 3-07 mg by ity of capsule 00:13: mouth 2 [place] 40 (two) Medical times Branch daily. gabapentin 2020-0 Yes 100mg Take 100 Un osbaldo 100 mg 3-07 mg by ity of capsule 00:13: mouth 2 [place] 40 (two) Medical times Branch daily. gabapentin 2020-0 Yes 100mg Take 100 Un osbaldo 100 mg 3-07 mg by ity of capsule 00:13: mouth 2 [place] 40 (two) Medical times Branch daily. gabapentin 2020-0 Yes 100mg Take 100 Un osbaldo 100 mg 3-07 mg by ity of capsule 00:13: mouth 2 [place] 40 (two) Medical times Branch daily. gabapentin 2020-0 Yes 100mg Take 100 Un osbaldo 100 mg 3-07 mg by ity of capsule 00:13: mouth [address] [place] [address] 40 (two) Medical times Branch daily. gabapentin 2020-0 Yes 100mg Take 100 Un osbaldo 100 mg 3-07 mg by ity of capsule 00:13: mouth 2 [place] 40 (two) Medical times Branch daily. gabapentin 2020-0 Yes 100mg Take 100 Un osbaldo 100 mg 3-07 mg by ity of capsule 00:13: mouth [address] [place] [address] 40 (two) Medical times Branch daily. gabapentin 2020-0 Yes 100mg Take 100 Un osbaldo 100 mg 3-07 mg by ity of capsule 00:13: mouth 2 [place] 40 (two) Medical times Branch daily. gabapentin 2020-0 Yes 100mg Take 100 Un osbaldo 100 mg 3-07 mg by ity of capsule 00:13: mouth 2 [place] 40 (two) Medical times Branch daily. gabapentin 2020-0 Yes 100mg Take 100 Un osbaldo 100 mg 3-07 mg by ity of capsule 00:13: mouth 2 [place] 40 (two) Medical times Branch daily. gabapentin 2020-0 Yes 100mg Take 100 Un osbaldo 100 mg 3-07 mg by ity of capsule 00:13: mouth 2 [place] 40 (two) Medical times Branch daily. gabapentin 2020-0 Yes 100mg Take 100 Un osbaldo 100 mg 3-07 mg by ity of capsule 00:13: mouth 2 [place] 40 (two) Medical times Branch daily. gabapentin 2020-0 Yes 100mg Take 100 Un osbaldo 100 mg 3-07 mg by ity of capsule 00:13: mouth 2 [place] 40 (two) Medical times Branch daily. gabapentin 2020-0 Yes 100mg Take 100 Un osbaldo 100 mg 3-07 mg by ity of capsule 00:13: mouth 2 [place] 40 (two) Medical times Branch daily. gabapentin 2020-0 Yes 100mg Take 100 Un osbaldo 100 mg 3-07 mg by ity of capsule 00:13: mouth 2 [place] 40 (two) Medical times Branch daily. gabapentin 2020-0 Yes 100mg Take 100 Un osbaldo 100 mg 3-07 mg by ity of capsule 00:13: mouth 2 [place] 40 (two) Medical times Branch daily. gabapentin 2020-0 Yes 100mg Take 100 Un osbaldo 100 mg 3-07 mg by ity of capsule 00:13: mouth 2 [place] 40 (two) Medical times Branch daily. gabapentin 2020-0 Yes 100mg Take 100 Un osbaldo 100 mg 3-07 mg by ity of capsule 00:13: mouth [address] [place] [address] 40 (two) Medical times Branch daily. gabapentin 2020-0 Yes 100mg Take 100 Un osbaldo 100 mg 3-07 mg by ity of capsule 00:13: mouth 2 [place] 40 (two) Medical times Branch daily. gabapentin 2020-0 Yes 100mg Take 100 Un osbaldo 100 mg 3-07 mg by ity of capsule 00:13: mouth [address] [place] [address] 40 (two) Medical times Branch daily. gabapentin 2020-0 Yes 100mg Take 100 Un osbaldo 100 mg 3-07 mg by ity of capsule 00:13: mouth [address] [place] [address] 40 (two) Medical times Branch daily. gabapentin 2020-0 Yes 100mg Take 100 Un osbaldo 100 mg 3-07 mg by ity of capsule 00:13: mouth 2 [place] 40 (two) Medical times Branch daily. gabapentin 2020-0 Yes 100mg Take 100 Un osbaldo 100 mg 3-07 mg by ity of capsule 00:13: mouth 2 [place] 40 (two) Medical times Branch daily. gabapentin 2020-0 Yes 100mg Take 100 Un osbaldo 100 mg 3-07 mg by ity of capsule 00:13: mouth 2 [place] 40 (two) Medical times Branch daily. gabapentin 2020-0 Yes 100mg Take 100 Un osbaldo 100 mg 3-07 mg by ity of capsule 00:13: mouth 2 [place] 40 (two) Medical times Branch daily. gabapentin 2020-0 Yes 100mg Take 100 Un osbaldo 100 mg 3-07 mg by ity of capsule 00:13: mouth 2 [place] 40 (two) Medical times Branch daily. gabapentin 2020-0 Yes 100mg Take 100 Un osbaldo 100 mg 3-07 mg by ity of capsule 00:13: mouth 2 [place] 40 (two) Medical times Branch daily. gabapentin 2020-0 Yes 100mg Take 100 Un osbaldo 100 mg 3-07 mg by ity of capsule 00:13: mouth 2 [place] 40 (two) Medical times Branch daily. gabapentin 2020-0 Yes 100mg Take 100 Un osbaldo 100 mg 3-07 mg by ity of capsule 00:13: mouth 2 [place] 40 (two) Medical times Branch daily. gabapentin 2020-0 Yes 100mg Take 100 Un osbaldo 100 mg 3-07 mg by ity of capsule 00:13: mouth 2 [place] 40 (two) Medical times Branch daily. gabapentin 2020-0 Yes 100mg Take 100 Un osbaldo 100 mg 3-07 mg by ity of capsule 00:13: mouth [address] [place] [address] 40 (two) Medical times Branch daily. gabapentin 2020-0 Yes 100mg Take 100 Un osbaldo 100 mg 3-07 mg by ity of capsule 00:13: mouth [address] [place] [address] 40 (two) Medical times Branch daily. gabapentin 2020-0 Yes 100mg Take 100 Un osbaldo 100 mg 3-07 mg by ity of capsule 00:13: mouth [address] [place] [address] 40 (two) Medical times Branch daily. gabapentin 2020-0 Yes 100mg Take 100 Un osbaldo 100 mg 3-07 mg by ity of capsule 00:13: mouth [address] [place] [address] 40 (two) Medical times Branch daily. gabapentin 2020-0 Yes 100mg Take 100 Un osbaldo 100 mg 3-07 mg by ity of capsule 00:13: mouth 2 [place] 40 (two) Medical times Branch daily. gabapentin 2020-0 Yes 100mg Take 100 Un osbaldo 100 mg 3-07 mg by ity of capsule 00:13: mouth 2 [place] 40 (two) Medical times Branch daily. gabapentin 2020-0 Yes 100mg Take 100 Un osbaldo 100 mg 3-07 mg by ity of capsule 00:13: mouth 2 [place] 40 (two) Medical times Branch daily. gabapentin 2020-0 Yes 100mg Take 100 Un osbaldo 100 mg 3-07 mg by ity of capsule 00:13: mouth 2 [place] 40 (two) Medical times Branch daily. gabapentin 2020-0 Yes 100mg Take 100 Un osbaldo 100 mg 3-07 mg by ity of capsule 00:13: mouth 2 [place] 40 (two) Medical times Branch daily. gabapentin 2020-0 Yes 100mg Take 100 Un osbaldo 100 mg 3-07 mg by ity of capsule 00:13: mouth 2 [place] 40 (two) Medical times Branch daily. gabapentin 2020-0 Yes 100mg Take 100 Un osbaldo 100 mg 3-07 mg by ity of capsule 00:13: mouth 2 [place] 40 (two) Medical times Branch daily. gabapentin 2020-0 Yes 100mg Take 100 Un osbaldo 100 mg 3-07 mg by ity of capsule 00:13: mouth 2 [place] 40 (two) Medical times Branch daily. hydrALAZINE 2020-0 Yes 50mg Take 50 mg [facility] 50 mg 3-07 by mouth 3 ity of tablet 00:01: (three) [place] [address] times Medical daily with Branch meals. hydrALAZINE 2020-0 Yes 50mg Take 50 mg [facility] 50 mg 3-07 by mouth 3 ity of tablet 00:01: ([facility]) [place] [address] times Medical daily with Branch meals. hydrALAZINE 2020-0 Yes 50mg Take 50 mg [facility] 50 mg 3-07 by mouth 3 ity of tablet 00:01: ([facility]) [place] [address] times Medical daily with Branch meals. hydrALAZINE 2020-0 Yes 50mg Take 50 mg [facility] 50 mg 3-07 by mouth 3 ity of tablet 00:01: ([facility]) [place] [address] times Medical daily with Branch meals. hydrALAZINE 2020-0 Yes 50mg Take 50 mg [facility] 50 mg 3-07 by mouth 3 ity of tablet 00:01: ([facility]) [place] [address] times Medical daily with Branch meals. hydrALAZINE 2020-0 Yes 50mg Take 50 mg [facility] 50 mg 3-07 by mouth 3 ity of tablet 00:01: ([facility]) [place] [address] times Medical daily with Branch meals. hydrALAZINE 2020-0 Yes 50mg Take 50 mg [facility] 50 mg 3-07 by mouth 3 ity of tablet 00:01: ([facility]) [place] [address] times Medical daily with Branch meals. hydrALAZINE 2020-0 Yes 50mg Take 50 mg [facility] 50 mg 3-07 by mouth 3 ity of tablet 00:01: ([facility]) [place] 47 times Medical daily with Branch meals. hydrALAZINE 2020-0 Yes 50mg Take 50 mg [facility] 50 mg 3-07 by mouth 3 ity of tablet 00:01: (three) [place] 47 times Medical daily with Branch meals. hydrALAZINE 2020-0 Yes 50mg Take 50 mg [facility] 50 mg 3-07 by mouth 3 ity of tablet 00:01: (three) [place] 47 times Medical daily with Branch meals. hydrALAZINE 2020-0 Yes 50mg Take 50 mg [facility] 50 mg 3-07 by mouth 3 ity of tablet 00:01: (three) [place] 47 times Medical daily with Branch meals. hydrALAZINE 2020-0 Yes 50mg Take 50 mg [facility] 50 mg 3-07 by mouth 3 ity of tablet 00:01: ([facility]) [place] 47 times Medical daily with Branch meals. hydrALAZINE 2020-0 Yes 50mg Take 50 mg [facility] 50 mg 3-07 by mouth 3 ity of tablet 00:01: ([facility]) [place] [address] times Medical daily with Branch meals. hydrALAZINE 2020-0 Yes 50mg Take 50 mg [facility] 50 mg 3-07 by mouth 3 ity of tablet 00:01: (three) [place] [address] times Medical daily with Branch meals. hydrALAZINE 2020-0 Yes 50mg Take 50 mg [facility] 50 mg 3-07 by mouth 3 ity of tablet 00:01: (three) [place] [address] times Medical daily with Branch meals. hydrALAZINE 2020-0 Yes 50mg Take 50 mg [facility] 50 mg 3-07 by mouth 3 ity of tablet 00:01: (three) [place] 47 times Medical daily with Branch meals. hydrALAZINE 2020-0 Yes 50mg Take 50 mg [facility] 50 mg 3-07 by mouth 3 ity of tablet 00:01: (three) [place] [address] times Medical daily with Branch meals. hydrALAZINE 2020-0 Yes 50mg Take 50 mg [facility] 50 mg 3-07 by mouth 3 ity of tablet 00:01: (three) [place] [address] times Medical daily with Branch meals. hydrALAZINE 2020-0 Yes 50mg Take 50 mg [facility] 50 mg 3-07 by mouth 3 ity of tablet 00:01: (three) [place] [address] times Medical daily with Branch meals. hydrALAZINE 2020-0 Yes 50mg Take 50 mg [facility] 50 mg 3-07 by mouth 3 ity of tablet 00:01: (three) [place] 47 times Medical daily with Branch meals. hydrALAZINE 2020-0 Yes 50mg Take 50 mg [facility] 50 mg 3-07 by mouth 3 ity of tablet 00:01: (three) [place] 47 times Medical daily with Branch meals. losartan-hy 2020-0 Yes Take by Uni vers drochloroth 3-07 mouth. ity of iazide 00:01: [place] 100-25 mg 47 Medical per tablet Branch hydrALAZINE 2020-0 Yes 50mg Take 50 mg [facility] 50 mg 3-07 by mouth 3 ity of tablet 00:01: (three) [place] 47 times Medical daily with Branch meals. hydrALAZINE 2020-0 Yes 50mg Take 50 mg [facility] 50 mg 3-07 by mouth 3 ity of tablet 00:01: (three) [place] 47 times Medical daily with Branch meals. hydrALAZINE 2020-0 Yes 50mg Take 50 mg [facility] 50 mg 3-07 by mouth 3 ity of tablet 00:01: (three) [place] 47 times Medical daily with Branch meals. hydrALAZINE 2020-0 Yes 50mg Take 50 mg [facility] 50 mg 3-07 by mouth 3 ity of tablet 00:01: (three) [place] 47 times Medical daily with Branch meals. hydrALAZINE 2020-0 Yes 50mg Take 50 mg [facility] 50 mg 3-07 by mouth 3 ity of tablet 00:01: (three) [place] 47 times Medical daily with Branch meals. hydrALAZINE 2020-0 Yes 50mg Take 50 mg [facility] 50 mg 3-07 by mouth 3 ity of tablet 00:01: (three) [place] 47 times Medical daily with Branch meals. hydrALAZINE 2020-0 Yes 50mg Take 50 mg [facility] 50 mg 3-07 by mouth 3 ity of tablet 00:01: (three) [place] 47 times Medical daily with Branch meals. hydrALAZINE 2020-0 Yes 50mg Take 50 mg [facility] 50 mg 3-07 by mouth 3 ity of tablet 00:01: (three) [place] 47 times Medical daily with Branch meals. hydrALAZINE 2020-0 Yes 50mg Take 50 mg [facility] 50 mg 3-07 by mouth 3 ity of tablet 00:01: (three) [place] 47 times Medical daily with Branch meals. hydrALAZINE 2020-0 Yes 50mg Take 50 mg [facility] 50 mg 3-07 by mouth 3 ity of tablet 00:01: (three) [place] 47 times Medical daily with Branch meals. hydrALAZINE 2020-0 Yes 50mg Take 50 mg [facility] 50 mg 3-07 by mouth 3 ity of tablet 00:01: (three) [place] 47 times Medical daily with Branch meals. hydrALAZINE 2020-0 Yes 50mg Take 50 mg [facility] 50 mg 3-07 by mouth 3 ity of tablet 00:01: (three) [place] 47 times Medical daily with Branch meals. hydrALAZINE 2020-0 Yes 50mg Take 50 mg [facility] 50 mg 3-07 by mouth 3 ity of tablet 00:01: ([facility]) [place] 47 times Medical daily with Branch meals. hydrALAZINE 2020-0 Yes 50mg Take 50 mg [facility] 50 mg 3-07 by mouth 3 ity of tablet 00:01: ([facility]) [place] [address] times Medical daily with Branch meals. hydrALAZINE 2020-0 Yes 50mg Take 50 mg [facility] 50 mg 3-07 by mouth 3 ity of tablet 00:01: ([facility]) [place] [address] times Medical daily with Branch meals. hydrALAZINE 2020-0 Yes 50mg Take 50 mg [facility] 50 mg 3-07 by mouth 3 ity of tablet 00:01: ([facility]) [place] [address] times Medical daily with Branch meals. hydrALAZINE 2020-0 Yes 50mg Take 50 mg [facility] 50 mg 3-07 by mouth 3 ity of tablet 00:01: ([facility]) [place] [address] times Medical daily with Branch meals. hydrALAZINE 2020-0 Yes 50mg Take 50 mg [facility] 50 mg 3-07 by mouth 3 ity of tablet 00:01: ([facility]) [place] [address] times Medical daily with Branch meals. hydrALAZINE 2020-0 Yes 50mg Take 50 mg [facility] 50 mg 3-07 by mouth 3 ity of tablet 00:01: ([facility]) [place] [address] times Medical daily with Branch meals. hydrALAZINE 2020-0 Yes 50mg Take 50 mg [facility] 50 mg 3-07 by mouth 3 ity of tablet 00:01: ([facility]) [place] [address] times Medical daily with Branch meals. hydrALAZINE 2020-0 Yes 50mg Take 50 mg [facility] 50 mg 3-07 by mouth 3 ity of tablet 00:01: ([facility]) [place] [address] times Medical daily with Branch meals. hydrALAZINE 2020-0 Yes 50mg Take 50 mg [facility] 50 mg 3-07 by mouth 3 ity of tablet 00:01: ([facility]) [place] 47 times Medical daily with Branch meals. hydrALAZINE 2020-0 Yes 50mg Take 50 mg [facility] 50 mg 3-07 by mouth 3 ity of tablet 00:01: (three) [place] 47 times Medical daily with Branch meals. hydrALAZINE 2020-0 Yes 50mg Take 50 mg [facility] 50 mg 3-07 by mouth 3 ity of tablet 00:01: (three) [place] [address] times Medical daily with Branch meals. hydrALAZINE 2020-0 Yes 50mg Take 50 mg [facility] 50 mg 3-07 by mouth 3 ity of tablet 00:01: ([facility]) [place] [address] times Medical daily with Branch meals. hydrALAZINE 2020-0 Yes 50mg Take 50 mg [facility] 50 mg 3-07 by mouth 3 ity of tablet 00:01: ([facility]) [place] [address] times Medical daily with Branch meals. hydrALAZINE 2020-0 Yes 50mg Take 50 mg [facility] 50 mg 3-07 by mouth 3 ity of tablet 00:01: ([facility]) [place] [address] times Medical daily with Branch meals. hydrALAZINE 2020-0 Yes 50mg Take 50 mg [facility] 50 mg 3-07 by mouth 3 ity of tablet 00:01: ([facility]) [place] [address] times Medical daily with Branch meals. hydrALAZINE 2020-0 Yes 50mg Take 50 mg [facility] 50 mg 3-07 by mouth 3 ity of tablet 00:01: (three) [place] [address] times Medical daily with Branch meals. hydrALAZINE 2020-0 Yes 50mg Take 50 mg [facility] 50 mg 3-07 by mouth 3 ity of tablet 00:01: (three) [place] [address] times Medical daily with Branch meals. hydrALAZINE 2020-0 Yes 50mg Take 50 mg [facility] 50 mg 3-07 by mouth 3 ity of tablet 00:01: (three) [place] [address] times Medical daily with Branch meals. hydrALAZINE 2020-0 Yes 50mg Take 50 mg [facility] 50 mg 3-07 by mouth 3 ity of tablet 00:01: ([facility]) [place] [address] times Medical daily with Branch meals. hydrALAZINE 2020-0 Yes 50mg Take 50 mg [facility] 50 mg 3-07 by mouth 3 ity of tablet 00:01: (three) [place] [address] times Medical daily with Branch meals. nitroglycer 2020-[address] 0.3 U nivers in 0.3 mg 3-06 mg under ity of sublingual 23:52: the tongue [place] tablet 42 every 5 Medical (five) Branch minutes as needed for Chest pain. carvediloL 2020-0 Yes 25mg Take 25 mg U nivers 25 mg 3-06 by mouth 2 ity of tablet 19:16: (two) [place] 39 times Medical daily with Branch meals. proMETHazin 2020-0 Yes 12.5mg Take 12.5 Univers e 25 mg 3-06 mg by ity of tablet 19:16: mouth 3 [place] 39 (three) Medical times Branch daily as needed for Nausea and Vomiting (N/V). insulin 2020-0 Yes inject [facility] aspart 3-06 under the ity of U-100 19:16: skin. [place] (NOVOLOG 39 Medical FLEXPEN Branch U-100 INSULIN) 100 unit/mL (3 mL) injection Insulin 2020-0 Yes inject [facility] Detemir 100 3-06 under the ity of unit/mL (3 18:22: skin. [place] mL) 08 Medical injection Branch gabapentin 2020-0 Yes 100mg Take 100 Un osbaldo 100 mg 3-06 mg by ity of capsule 18:13: mouth 2 [place] 40 (two) Medical times Branch daily. hydrALAZINE 2020-0 Yes 50mg Take 50 mg [facility] 50 mg 3-06 by mouth 3 ity of tablet 18:01: (three) [place] 47 times Medical daily with Branch meals. [...] it y of caffeine 15:51: 00:00 mouth [place] (EXCEDRIN 24 :00 every 6 Medical MIGRAINE) (six) Branch 250-250-65 hours as mg per needed for tablet Pain. carvedilol 2019-0 2020- No 25mg Take 25 mg [facility] 12.5 mg 3-06 03-06 by mouth. ity of tablet 15:51: 00:00 [place] 24 :00 Medical Branch aspirin-nhi 2020-0 2020- No 1{tbl} Take 1 U nivers taminophen- 3-06 03-06 tablet by it y of caffeine 15:51: 00:00 mouth [place] (EXCEDRIN 24 :00 every 6 Medical MIGRAINE) [...] it y of caffeine 15:51: 00:00 mouth [place] (EXCEDRIN 24 :00 every 6 Medical MIGRAINE) (six) Branch 250-250-65 hours as mg per needed for tablet Pain. SERTraline 2020-0 Yes [id number] 25mg Take 1 U nivers 25 mg 3-06 tablet by ity of tablet 00:00: mouth [place] 00 daily. Medical Branch SERTraline 2020-0 Yes [id number] 25mg Take 1 U nivers 25 mg 3-06 tablet by ity of tablet 00:00: mouth [place] 00 daily. Medical Branch SERTraline 2020-0 Yes [id number] 25mg Take 1 U nivers 25 mg 3-06 tablet by ity of tablet 00:00: mouth [place] 00 daily. Medical Branch SERTraline 2020-0 Yes [id number] 25mg Take 1 U nivers 25 mg 3-06 tablet by ity of tablet 00:00: mouth [place] 00 daily. Medical Branch SERTraline 2020-0 Yes [id number] 25mg Take 1 U nivers 25 mg 3-06 tablet by ity of tablet 00:00: mouth [place] 00 daily. Medical Branch SERTraline 2020-0 Yes [id number] 25mg Take 1 U nivers 25 mg 3-06 tablet by ity of tablet 00:00: mouth [place] 00 daily. Medical Branch SERTraline 2020-0 Yes [id number] 25mg Take 1 U nivers 25 mg 3-06 tablet by ity of tablet 00:00: mouth [place] 00 daily. Medical Branch SERTraline 2020-0 Yes [id number] 25mg Take 1 U nivers 25 mg 3-06 tablet by ity of tablet 00:00: mouth [place] 00 daily. Medical Branch SERTraline 2020-0 Yes [id number] 25mg Take 1 U nivers 25 mg 3-06 tablet by ity of tablet 00:00: mouth [place] 00 daily. Medical Branch SERTraline 2020-0 Yes [id number] 25mg Take 1 U nivers 25 mg 3-06 tablet by ity of tablet 00:00: mouth [place] 00 daily. Medical Branch SERTraline 2020-0 Yes [id number] 25mg Take 1 U nivers 25 mg 3-06 tablet by ity of tablet 00:00: mouth [place] 00 daily. Medical Branch SERTraline 2020-0 Yes [id number] 25mg Take 1 U nivers 25 mg 3-06 tablet by ity of tablet 00:00: mouth [place] 00 daily. [facility] Branch SERTraline 2020-0 Yes [id number] 25mg Take 1 U nivers 25 mg 3-06 tablet by ity of tablet 00:00: mouth [place] 00 daily. [facility] Branch SERTraline 2020-0 2020- No [id number] 25mg Take 1 [facility] 25 mg 3-06 05-21 tablet by ity of tablet 00:00: 00:00 mouth [place] 00 :00 daily. Medical Branch SERTraline 2020-0 2020- No [id number] 25mg Take 1 [facility] 25 mg 3-06 05-21 tablet by ity of tablet 00:00: 00:00 mouth [place] 00 :00 daily. Medical Branch butorphanol 2020-0 Yes USE 1 Unive rs 10 mg/mL 3-05 SPRAY IN ity of nasal spray 00:00: ONE [place] NOSTRIL Medical EVERY 8 Branch HOURS NEEDED FOR HEADACHE butorphanol 2020-0 Yes USE 1 Unive rs 10 mg/mL 3-05 SPRAY IN ity of nasal spray 00:00: ONE [place] NOSTRIL Medical EVERY 8 Branch HOURS NEEDED FOR HEADACHE butorphanol 2020-0 Yes USE 1 Unive rs 10 mg/mL 3-05 SPRAY IN ity of nasal spray 00:00: ONE [place] NOSTRIL Medical EVERY 8 Branch HOURS NEEDED FOR HEADACHE butorphanol 2020-0 Yes USE 1 Unive rs 10 mg/mL 3-05 SPRAY IN ity of nasal spray 00:00: ONE [place] NOSTRIL Medical EVERY 8 Branch HOURS NEEDED FOR HEADACHE butorphanol 2020-0 Yes USE 1 Unive rs 10 mg/mL 3-05 SPRAY IN ity of nasal spray 00:00: ONE [place] NOSTRIL Medical EVERY 8 Branch HOURS NEEDED FOR HEADACHE butorphanol 2020-0 Yes USE 1 Unive rs 10 mg/mL 3-05 SPRAY IN ity of nasal spray 00:00: ONE [place] NOSTRIL Medical EVERY 8 Branch HOURS NEEDED FOR HEADACHE butorphanol 2020-0 Yes USE 1 Unive rs 10 mg/mL 3-05 SPRAY IN ity of nasal spray 00:00: ONE [place] NOSTRIL Medical EVERY 8 Branch HOURS NEEDED FOR HEADACHE butorphanol 2020-0 Yes USE 1 Unive rs 10 mg/mL 3-05 SPRAY IN ity of nasal spray 00:00: ONE [place] [id number] NOSTRIL Medical EVERY 8 Branch HOURS NEEDED FOR HEADACHE butorphanol 2020-0 Yes USE 1 Unive rs 10 mg/mL 3-05 SPRAY IN ity of nasal spray 00:00: ONE [place] NOSTRIL Medical EVERY 8 Branch HOURS NEEDED [...] by mouth 2 ity of 00:00: (two) [place] 00 times Medical daily. Branch ELIQUIS 5 [...] (two) [place] 00 times Medical daily. Branch REBECCAQUIS 5 2020-0 Yes 5mg Take 5 mg [...] ity of 00:00: [place] 00 Medical Branch REBECCAQUIS 5 2020-0 Yes 5mg Take 5 mg [...] (two) [place] 00 times Medical daily. Branch REBECCAQUIS 5 2020-0 Yes 5mg Take 5 mg [...] TABLET BY ity of tablet 00:00: MOUTH [place] 00 EVERYDAY Medical AT BEDTIME Branch AMITRIPTYLI 2020-0 Yes TAKE 1 Univ ers NE 25 mg 3-02 TABLET BY ity of tablet 00:00: MOUTH [place] 00 EVERYDAY Medical AT BEDTIME Branch AMITRIPTYLI 2020-0 Yes TAKE 1 Univ ers [place] 25 mg 3-02 TABLET BY ity of tablet 00:00: MOUTH [place] 00 EVERYDAY Medical AT BEDTIME Branch AMITRIPTYLI 2020-0 Yes TAKE 1 [facility] ers [place] 25 mg 3-02 TABLET BY ity of tablet 00:00: MOUTH [place] 00 EVERYDAY Medical AT BEDTIME Branch AMITRIPTYLI 2020-0 Yes TAKE 1 [facility] ers [place] 25 mg 3-02 TABLET BY ity of tablet 00:00: MOUTH [place] 00 EVERYDAY Medical AT BEDTIME Branch AMITRIPTYLI 2020-0 Yes TAKE 1 [facility] ers [place] 25 mg 3-02 TABLET BY ity of tablet 00:00: MOUTH [place] 00 EVERYDAY Medical AT BEDTIME Branch AMITRIPTYLI 2020-0 2020- No TAKE 1 Uni vers NE 25 mg 3-02 03-30 TABLET BY ity o f tablet 00:00: 00:00 MOUTH [place] 00 :00 EVERYDAY Medical AT BEDTIME Branch zolpidem 10 2019-0 Yes 10mg Take 10 mg [facility] mg tablet 3- by mouth ity of 00:00: at [place] [id number] bedtime. I Medical ADVISE Branch AGAINST TAKING THIS MEDICATION DUE TO THE RISKS. [facility] zolpidem 10 0 Yes 10mg Take 10 mg [facility] mg tablet 3-01 by mouth ity of 00:00: at [place] [id number] bedtime. I Medical ADVISE Branch AGAINST TAKING THIS MEDICATION DUE TO THE RISKS. [facility] zolpidem 10 2019-0 Yes 10mg Take 10 mg [facility] mg tablet 3-01 by mouth ity of 00:00: at [place] [id number] bedtime. I Medical ADVISE Branch AGAINST TAKING THIS MEDICATION DUE TO THE RISKS. [facility] zolpidem 10 2020-0 Yes 10mg Take 10 mg [facility] mg tablet 3-01 by mouth ity of 00:00: at [place] 00 bedtime. I Medical ADVISE Branch AGAINST TAKING THIS MEDICATION DUE TO THE RISKS. [facility] zolpidem 10 2020-0 Yes 10mg Take 10 mg [facility] mg tablet 3-01 by mouth ity of 00:00: at [place] 00 bedtime. I Medical ADVISE Branch AGAINST TAKING THIS MEDICATION DUE TO THE RISKS. [facility] zolpidem 10 2020-0 Yes 10mg Take 10 mg [facility] mg tablet 3-01 by mouth ity of 00:00: at [place] 00 bedtime. I Medical ADVISE Branch AGAINST TAKING THIS MEDICATION DUE TO THE RISKS. [facility] zolpidem 10 2020-0 Yes 10mg Take 10 mg [facility] mg tablet 3-01 by mouth ity of 00:00: at [place] [id number] bedtime. I Medical ADVISE Branch AGAINST TAKING THIS MEDICATION DUE TO THE RISKS. [facility] zolpidem 10 2020-0 Yes 10mg Take 10 mg [facility] mg tablet 3-01 by mouth ity of 00:00: at [place] [id number] bedtime. I Medical ADVISE Branch AGAINST TAKING THIS MEDICATION DUE TO THE RISKS. [facility] zolpidem 10 2020-0 Yes 10mg Take 10 mg [facility] mg tablet 3-01 by mouth ity of 00:00: at [place] [id number] bedtime. I Medical ADVISE Branch AGAINST TAKING THIS MEDICATION DUE TO THE RISKS. [facility] zolpidem 10 2020-0 Yes 10mg Take 10 mg [facility] mg tablet 3-01 by mouth ity of 00:00: at [place] 00 bedtime. I Medical ADVISE Branch AGAINST TAKING THIS MEDICATION DUE TO THE RISKS. [facility] zolpidem 10 2020-0 Yes 10mg Take 10 mg [facility] mg tablet 3-01 by mouth ity of 00:00: at [place] [id number] bedtime. I Medical ADVISE Branch AGAINST TAKING THIS MEDICATION DUE TO THE RISKS. [facility] zolpidem 10 2020-0 Yes 10mg Take 10 mg [facility] mg tablet 3-01 by mouth ity of 00:00: at [place] [id number] bedtime. I Medical ADVISE Branch AGAINST TAKING THIS MEDICATION DUE TO THE RISKS. [facility] zolpidem 10 2020-0 Yes 10mg Take 10 mg [facility] mg tablet 3-01 by mouth ity of 00:00: at [place] [id number] bedtime. I Medical ADVISE Branch AGAINST TAKING THIS MEDICATION DUE TO THE RISKS. [facility] zolpidem 10 2020-0 Yes 10mg Take 10 mg [facility] mg tablet 3-01 by mouth ity of 00:00: at [place] 00 bedtime. I Medical ADVISE Branch AGAINST TAKING THIS MEDICATION DUE TO THE RISKS. [facility] zolpidem 10 2020-0 Yes 10mg Take 10 mg [facility] mg tablet 3-01 by mouth ity of 00:00: at [place] 00 bedtime. I Medical ADVISE Branch AGAINST TAKING THIS MEDICATION DUE TO THE RISKS. [facility] zolpidem 10 2020-0 Yes 10mg Take 10 mg [facility] mg tablet 3-01 by mouth ity of 00:00: at [place] [id number] bedtime. I Medical ADVISE Branch AGAINST TAKING THIS MEDICATION DUE TO THE RISKS. [facility] zolpidem 10 2020-0 Yes 10mg Take 10 mg [facility] mg tablet 3-01 by mouth ity of 00:00: at [place] [address] bedtime. I Medical ADVISE Branch AGAINST TAKING THIS MEDICATION DUE TO THE RISKS. [facility] zolpidem 10 2020-0 Yes 10mg Take 10 mg [facility] mg tablet 3-01 by mouth ity of 00:00: at [place] [address] bedtime. I Medical ADVISE Branch AGAINST TAKING THIS MEDICATION DUE TO THE RISKS. [facility] zolpidem 10 2020-0 Yes 10mg Take 10 mg [facility] mg tablet 3-01 by mouth ity of 00:00: at [place] [address] bedtime. I Medical ADVISE Branch AGAINST TAKING THIS MEDICATION DUE TO THE RISKS. [facility] zolpidem 10 2020-0 Yes 10mg Take 10 mg [facility] mg tablet 3-01 by mouth ity of 00:00: at [place] [address] bedtime. I Medical ADVISE Branch AGAINST TAKING THIS MEDICATION DUE TO THE RISKS. [facility] zolpidem 10 2020-0 Yes 10mg Take 10 mg [facility] mg tablet 3-01 by mouth ity of 00:00: at [place] 00 bedtime. I Medical ADVISE Branch AGAINST TAKING THIS MEDICATION DUE TO THE RISKS. [facility] zolpidem 10 2020-0 Yes 10mg Take 10 mg [facility] mg tablet 3-01 by mouth ity of 00:00: at [place] [address] bedtime. Medical Branch zolpidem 10 2020-0 Yes 10mg Take 10 mg [facility] mg tablet 3-01 by mouth ity of 00:00: at [place] [address] bedtime. Medical Branch zolpidem 10 2020-0 Yes 10mg Take 10 mg [facility] mg tablet 3-01 by mouth ity of 00:00: at [place] 00 bedtime. Medical Branch zolpidem 10 2020-0 Yes 10mg Take 10 mg [facility] mg tablet 3-01 by mouth ity of 00:00: at [place] 00 bedtime. I Medical ADVISE Branch AGAINST TAKING THIS MEDICATION DUE TO THE RISKS. [facility] zolpidem 10 2020-0 Yes 10mg Take 10 mg [facility] mg tablet 3-01 by mouth ity of 00:00: at [place] [address] bedtime. I Medical ADVISE Branch AGAINST TAKING THIS MEDICATION DUE TO THE RISKS. [facility] zolpidem 10 2020-0 Yes 10mg Take 10 mg [facility] mg tablet 3-01 by mouth ity of 00:00: at [place] [address] bedtime. I Medical ADVISE Branch AGAINST TAKING THIS MEDICATION DUE TO THE RISKS. [facility] zolpidem 10 2020-0 Yes 10mg Take 10 mg [facility] mg tablet 3-01 by mouth ity of 00:00: at [place] [address] bedtime. I Medical ADVISE Branch AGAINST TAKING THIS MEDICATION DUE TO THE RISKS. [facility] zolpidem 10 2020-0 Yes 10mg Take 10 mg [facility] mg tablet 3-01 by mouth ity of 00:00: at [place] [address] bedtime. I Medical ADVISE Branch AGAINST TAKING THIS MEDICATION DUE TO THE RISKS. [facility] zolpidem 10 2020-0 Yes 10mg Take 10 mg [facility] mg tablet 3-01 by mouth ity of 00:00: at [place] [address] bedtime. I Medical ADVISE Branch AGAINST TAKING THIS MEDICATION DUE TO THE RISKS. [facility] zolpidem 10 2020-0 Yes 10mg Take 10 mg [facility] mg tablet 3-01 by mouth ity of 00:00: at [place] [address] bedtime. I Medical ADVISE Branch AGAINST TAKING THIS MEDICATION DUE TO THE RISKS. [facility] zolpidem 10 2020-0 Yes 10mg Take 10 mg [facility] mg tablet 3-01 by mouth ity of 00:00: at [place] [address] bedtime. I Medical ADVISE Branch AGAINST TAKING THIS MEDICATION DUE TO THE RISKS. [facility] zolpidem 10 2020-0 Yes 10mg Take 10 mg [facility] mg tablet 3-01 by mouth ity of 00:00: at [place] [address] bedtime. I Medical ADVISE Branch AGAINST TAKING THIS MEDICATION DUE TO THE RISKS. [facility] zolpidem 10 2020-0 Yes 10mg Take 10 mg [facility] mg tablet 3-01 by mouth ity of 00:00: at [place] 00 bedtime. I Medical ADVISE Branch AGAINST TAKING THIS MEDICATION DUE TO THE RISKS. [facility] zolpidem 10 2020-0 Yes 10mg Take 10 mg [facility] mg tablet 3-01 by mouth ity of 00:00: at [place] 00 bedtime. I Medical ADVISE Branch AGAINST TAKING THIS MEDICATION DUE TO THE RISKS. [facility] zolpidem 10 2020-0 Yes 10mg Take 10 mg [facility] mg tablet 3-01 by mouth ity of 00:00: at [place] 00 bedtime. I Medical ADVISE Branch AGAINST TAKING THIS MEDICATION DUE TO THE RISKS. [facility] zolpidem 10 2020-0 Yes 10mg Take 10 mg [facility] mg tablet 3-01 by mouth ity of 00:00: at [place] [address] bedtime. I Medical ADVISE Branch AGAINST TAKING THIS MEDICATION DUE TO THE RISKS. [facility] zolpidem 10 2020-0 Yes 10mg Take 10 mg [facility] mg tablet 3-01 by mouth ity of 00:00: at [place] [address] bedtime. I Medical ADVISE Branch AGAINST TAKING THIS MEDICATION DUE TO THE RISKS. [facility] zolpidem 10 2020-0 Yes 10mg Take 10 mg [facility] mg tablet 3-01 by mouth ity of 00:00: at [place] [id number] bedtime. I Medical ADVISE Branch AGAINST TAKING THIS MEDICATION DUE TO THE RISKS. [facility] zolpidem 10 2020-0 Yes 10mg Take 10 mg [facility] mg tablet 3-01 by mouth ity of 00:00: at [place] [address] bedtime. I Medical ADVISE Branch AGAINST TAKING THIS MEDICATION DUE TO THE RISKS. [facility] zolpidem 10 2020-0 Yes 10mg Take 10 mg [facility] mg tablet 3-01 by mouth ity of 00:00: at [place] [address] bedtime. I Medical ADVISE Branch AGAINST TAKING THIS MEDICATION DUE TO THE RISKS. [facility] zolpidem 10 2020-0 Yes 10mg Take 10 mg [facility] mg tablet 3-01 by mouth ity of 00:00: at [place] [address] bedtime. I Medical ADVISE Branch AGAINST TAKING THIS MEDICATION DUE TO THE RISKS. [facility] zolpidem 10 2020-0 Yes 10mg Take 10 mg [facility] mg tablet 3-01 by mouth ity of 00:00: at [place] [address] bedtime. I Medical ADVISE Branch AGAINST TAKING THIS MEDICATION DUE TO THE RISKS. [facility] zolpidem 10 2020-0 Yes 10mg Take 10 mg [facility] mg tablet 3-01 by mouth ity of 00:00: at [place] 00 bedtime. I Medical ADVISE Branch AGAINST TAKING THIS MEDICATION DUE TO THE RISKS. [facility] zolpidem 10 2020-0 Yes 10mg Take 10 mg [facility] mg tablet 3-01 by mouth ity of 00:00: at [place] [address] bedtime. I Medical ADVISE Branch AGAINST TAKING THIS MEDICATION DUE TO THE RISKS. [facility] zolpidem 10 2020-0 Yes 10mg Take 10 mg [facility] mg tablet 3-01 by mouth ity of 00:00: at [place] [address] bedtime. I Medical ADVISE Branch AGAINST TAKING THIS MEDICATION DUE TO THE RISKS. [facility] zolpidem 10 2020-0 Yes 10mg Take 10 mg [facility] mg tablet 3-01 by mouth ity of 00:00: at [place] [address] bedtime. I Medical ADVISE Branch AGAINST TAKING THIS MEDICATION DUE TO THE RISKS. [facility] zolpidem 10 2020-0 Yes 10mg Take 10 mg [facility] mg tablet 3-01 by mouth ity of 00:00: at [place] [address] bedtime. I Medical ADVISE Branch AGAINST TAKING THIS MEDICATION DUE TO THE RISKS. [facility] zolpidem 10 2020-0 Yes 10mg Take 10 mg [facility] mg tablet 3-01 by mouth ity of 00:00: at [place] [address] bedtime. I Medical ADVISE Branch AGAINST TAKING THIS MEDICATION DUE TO THE RISKS. [facility] zolpidem 10 2020-0 Yes 10mg Take 10 mg [facility] mg tablet 3-01 by mouth ity of 00:00: at [place] [address] bedtime. I Medical ADVISE Branch AGAINST TAKING THIS MEDICATION DUE TO THE RISKS. [facility] zolpidem 10 2020-0 Yes 10mg Take 10 mg [facility] mg tablet 3-01 by mouth ity of 00:00: at [place] [address] bedtime. I Medical ADVISE Branch AGAINST TAKING THIS MEDICATION DUE TO THE RISKS. [facility] zolpidem 10 2020-0 Yes 10mg Take 10 mg [facility] mg tablet 3-01 by mouth ity of 00:00: at [place] [address] bedtime. I Medical ADVISE Branch AGAINST TAKING THIS MEDICATION DUE TO THE RISKS. [facility] zolpidem 10 2020-0 Yes 10mg Take 10 mg [facility] mg tablet 3-01 by mouth ity of 00:00: at [place] [address] bedtime. I Medical ADVISE Branch AGAINST TAKING THIS MEDICATION DUE TO THE RISKS. [facility] zolpidem 10 2020-0 Yes 10mg Take 10 mg [facility] mg tablet 3-01 by mouth ity of 00:00: at [place] [address] bedtime. I Medical ADVISE Branch AGAINST TAKING THIS MEDICATION DUE TO THE RISKS. [facility] zolpidem 10 2020-0 Yes 10mg Take 10 mg [facility] mg tablet 3-01 by mouth ity of 00:00: at [place] 00 bedtime. I Medical ADVISE Branch AGAINST TAKING THIS MEDICATION DUE TO THE RISKS. [facility] zolpidem 10 2020-0 Yes 10mg Take 10 mg [facility] mg tablet 3-01 by mouth ity of 00:00: at [place] 00 bedtime. I Medical ADVISE Branch AGAINST TAKING THIS MEDICATION DUE TO THE RISKS. [facility] zolpidem 10 2020-0 Yes 10mg Take 10 mg [facility] mg tablet 3-01 by mouth ity of 00:00: at [place] 00 bedtime. I Medical ADVISE Branch AGAINST TAKING THIS MEDICATION DUE TO THE RISKS. [facility] ondansetron 2020-0 Yes 4mg Take 4 [...] by ity of tablet 00:00: mouth 3 [place] 00 (three) Medical times Branch daily. cloNIDine 2020-0 Yes .3mg Take 0.3 Univ ers 0.3 mg 2-26 mg by ity of tablet 00:00: mouth 3 [place] (three) Medical times Branch daily. cloNIDine 2020-0 Yes .3mg Take 0.3 Univ ers 0.3 mg 2-26 mg by ity of tablet 00:00: mouth 3 [place] (three) Medical times Branch daily. amitriptyli 2020-0 Yes 25mg Take 1 Univ ers ne 25 mg 2-07 tablet by ity of tablet 00:00: mouth at [place] [address] bedtime. Medical Branch butorphanol 2020-0 Yes USE 1 Unive rs 10 mg/mL 2-07 SPRAY IN ity of nasal spray 00:00: ONE [place] 00 NOSTRIL Medical EVERY 8 Branch HOURS NEEDED FOR HEADACHE amitriptyli 2020-0 Yes 25mg Take 1 Univ ers ne 25 mg 2-07 tablet by ity of tablet 00:00: mouth at [place] [address] bedtime. Medical Branch butorphanol 2020-0 Yes USE 1 Unive rs 10 mg/mL 2-07 SPRAY IN ity of nasal spray 00:00: ONE [place] 00 NOSTRIL Medical EVERY 8 Branch HOURS NEEDED FOR HEADACHE butorphanol 2020-0 Yes USE 1 Unive rs 10 mg/mL 2-07 SPRAY IN ity of nasal spray 00:00: ONE [place] 00 NOSTRIL Medical EVERY 8 Branch HOURS NEEDED FOR HEADACHE butorphanol 2020-0 2020- No USE 1 Univ ers 10 mg/mL 2-07 03-05 SPRAY IN ity of nasal spray 00:00: 00:00 ONE [place] 00 :00 NOSTRIL Medical EVERY 8 Branch HOURS NEEDED FOR HEADACHE butorphanol 2020-0 2020- No USE 1 Univ ers 10 mg/mL 2-07 03-05 SPRAY IN ity of nasal spray 00:00: 00:00 ONE [place] 00 :00 NOSTRIL Medical EVERY 8 Branch HOURS NEEDED FOR HEADACHE amitriptyli 2020-0 2020- No 25mg Take 1 Uni vers ne 25 mg 2-07 03-02 tablet by ity o f tablet 00:00: 00:00 mouth at [place] 00 :00 bedtime. Medical Branch amLODIPine 2020-0 [...] mouth 2 it y of 00:00: (two) [place] 00 times Medical daily. Branch amLODIPine 2020-0 Yes 5mg Take 5 mg Un osbaldo 5 mg tablet 2-06 by mouth 2 it y of 00:00: (two) [place] 00 times Medical daily. Branch sotalol 80 2020-0 Yes 80mg Take 80 mg U nivers mg tablet 1-16 by mouth ity of 00:00: every 12 [place] [address] (twelve) Medical hours. Branch sotalol 80 2020-0 Yes 80mg Take 80 mg U nivers mg tablet 1-16 by mouth ity of 00:00: every 12 [place] [address] (twelve) Medical hours. Branch sotalol 80 2020-0 Yes 80mg Take 80 mg U nivers mg tablet 1-16 by mouth ity of 00:00: every 12 [place] 00 (twelve) Medical hours. Branch sotalol 80 2020-0 Yes 80mg Take 80 mg U nivers mg tablet 1-16 by mouth ity of 00:00: every 12 [place] 00 (twelve) Medical hours. Branch sotalol 80 2020-0 Yes 80mg Take 80 mg U nivers mg tablet 1-16 by mouth ity of 00:00: every 12 [place] 00 (twelve) Medical hours. Branch sotalol 80 2020-0 Yes 80mg Take 80 mg U nivers mg tablet 1-16 by mouth ity of 00:00: every 12 [place] 00 (twelve) Medical hours. Branch sotalol 80 2020-0 Yes 80mg Take 80 mg U nivers mg tablet 1-16 by mouth ity of 00:00: every 12 [place] 00 (twelve) Medical hours. Branch sotalol 80 2020-0 Yes 80mg Take 80 mg U nivers mg tablet 1-16 by mouth ity of 00:00: every 12 [place] 00 (twelve) Medical hours. Branch sotalol 80 2020-0 Yes 80mg Take 80 mg U nivers mg tablet 1-16 by mouth ity of 00:00: every 12 [place] 00 (twelve) Medical hours. Branch sotalol 80 2020-0 Yes 80mg Take 80 mg U nivers mg tablet 1-16 by mouth ity of 00:00: every 12 [place] 00 (twelve) Medical hours. Branch sotalol 80 2020-0 Yes 80mg Take 80 mg U nivers mg tablet 1-16 by mouth ity of 00:00: every 12 [place] 00 (twelve) Medical hours. Branch sotalol 80 2020-0 Yes 80mg Take 80 mg U nivers mg tablet 1-16 by mouth ity of 00:00: every 12 [place] 00 (twelve) Medical hours. Branch sotalol 80 2020-0 Yes 80mg Take 80 mg U nivers mg tablet 1-16 by mouth ity of 00:00: every 12 [place] 00 (twelve) Medical hours. Branch sotalol 80 2020-0 Yes 80mg Take 80 mg U nivers mg tablet 1-16 by mouth ity of 00:00: every 12 [place] 00 (twelve) Medical hours. Branch sotalol 80 2020-0 Yes 80mg Take 80 mg U nivers mg tablet 1-16 by mouth ity of 00:00: every 12 [place] 00 (twelve) Medical hours. Branch sotalol 80 2020-0 Yes 80mg Take 80 mg U nivers mg tablet 1-16 by mouth ity of 00:00: every 12 [place] 00 (twelve) Medical hours. Branch sotalol 80 2020-0 Yes 80mg Take 80 mg U nivers mg tablet 1-16 by mouth ity of 00:00: every 12 [place] 00 (twelve) Medical hours. Branch sotalol 80 2020-0 Yes 80mg Take 80 mg U nivers mg tablet 1-16 by mouth ity of 00:00: every 12 [place] 00 (twelve) Medical hours. Branch sotalol 80 2020-0 Yes 80mg Take 80 mg U nivers mg tablet 1-16 by mouth ity of 00:00: every 12 [place] 00 (twelve) Medical hours. Branch sotalol 80 2020-0 Yes 80mg Take 80 mg U nivers mg tablet 1-16 by mouth ity of 00:00: every 12 [place] 00 (twelve) Medical hours. Branch sotalol 80 2020-0 Yes 80mg Take 80 mg U nivers mg tablet 1-16 by mouth ity of 00:00: every 12 [place] 00 (twelve) Medical hours. Branch sotalol 80 2020-0 Yes [facility] mg tablet 1-16 ity of 00:00: [place] 00 Medical Branch sotalol 80 2020-0 Yes [facility] mg tablet 1-16 ity of 00:00: [place] 00 Medical Branch sotalol 80 2020-0 Yes 80mg Take 80 mg U nivers mg tablet 1-16 by mouth ity of 00:00: every 12 [place] 00 (twelve) Medical hours. Branch sotalol 80 2020-0 Yes 80mg Take 80 mg U nivers mg tablet 1-16 by mouth ity of 00:00: every 12 [place] 00 (twelve) Medical hours. Branch sotalol 80 2020-0 Yes 80mg Take 80 mg U nivers mg tablet 1-16 by mouth ity of 00:00: every 12 [place] 00 (twelve) Medical hours. Branch sotalol 80 2020-0 Yes 80mg Take 80 mg U nivers mg tablet 1-16 by mouth ity of 00:00: every 12 [place] 00 (twelve) Medical hours. Branch sotalol 80 2020-0 Yes 80mg Take 80 mg U nivers mg tablet 1-16 by mouth ity of 00:00: every 12 [place] 00 (twelve) Medical hours. Branch sotalol 80 2020-0 Yes 80mg Take 80 mg U nivers mg tablet 1-16 by mouth ity of 00:00: every 12 [place] 00 (twelve) Medical hours. Branch sotalol 80 2020-0 Yes 80mg Take 80 mg U nivers mg tablet 1-16 by mouth ity of 00:00: every 12 [place] 00 (twelve) Medical hours. Branch sotalol 80 2020-0 Yes 80mg Take 80 mg U nivers mg tablet 1-16 by mouth ity of 00:00: every 12 [place] 00 (twelve) Medical hours. Branch sotalol 80 2020-0 Yes 80mg Take 80 mg U nivers mg tablet 1-16 by mouth ity of 00:00: every 12 [place] 00 (twelve) Medical hours. Branch sotalol 80 2020-0 Yes 80mg Take 80 mg U nivers mg tablet 1-16 by mouth ity of 00:00: every 12 [place] 00 (twelve) Medical hours. Branch sotalol 80 2020-0 Yes 80mg Take 80 mg U nivers mg tablet 1-16 by mouth ity of 00:00: every 12 [place] 00 (twelve) Medical hours. Branch sotalol 80 2020-0 Yes 80mg Take 80 mg U nivers mg tablet 1-16 by mouth ity of 00:00: every 12 [place] 00 (twelve) Medical hours. Branch sotalol 80 2020-0 Yes 80mg Take 80 mg U nivers mg tablet 1-16 by mouth ity of 00:00: every 12 [place] 00 (twelve) Medical hours. Branch sotalol 80 2020-0 Yes 80mg Take 80 mg U nivers mg tablet 1-16 by mouth ity of 00:00: every 12 [place] 00 (twelve) Medical hours. Branch sotalol 80 2020-0 Yes 80mg Take 80 mg U nivers mg tablet 1-16 by mouth ity of 00:00: every 12 [place] 00 (twelve) Medical hours. Branch sotalol 80 2020-0 Yes 80mg Take 80 mg U nivers mg tablet 1-16 by mouth ity of 00:00: every 12 [place] 00 (twelve) Medical hours. Branch sotalol 80 2020-0 Yes 80mg Take 80 mg U nivers mg tablet 1-16 by mouth ity of 00:00: every 12 [place] 00 (twelve) Medical hours. Branch sotalol 80 2020-0 Yes 80mg Take 80 mg U nivers mg tablet 1-16 by mouth ity of 00:00: every 12 [place] 00 (twelve) Medical hours. Branch sotalol 80 2020-0 Yes 80mg Take 80 mg U nivers mg tablet 1-16 by mouth ity of 00:00: every 12 [place] 00 (twelve) Medical hours. Branch sotalol 80 2020-0 Yes 80mg Take 80 mg U nivers mg tablet 1-16 by mouth ity of 00:00: every 12 [place] 00 (twelve) Medical hours. Branch sotalol 80 2020-0 Yes 80mg Take 80 mg U nivers mg tablet 1-16 by mouth ity of 00:00: every 12 [place] 00 (twelve) Medical hours. Branch sotalol 80 2020-0 Yes 80mg Take 80 mg U nivers mg tablet 1-16 by mouth ity of 00:00: every 12 [place] 00 (twelve) Medical hours. Branch sotalol 80 2020-0 Yes 80mg Take 80 mg U nivers mg tablet 1-16 by mouth ity of 00:00: every 12 [place] 00 (twelve) Medical hours. Branch sotalol 80 2020-0 Yes 80mg Take 80 mg U nivers mg tablet 1-16 by mouth ity of 00:00: every 12 [place] 00 (twelve) Medical hours. Branch sotalol 80 2020-0 Yes 80mg Take 80 mg U nivers mg tablet 1-16 by mouth ity of 00:00: every 12 [place] 00 (twelve) Medical hours. Branch sotalol 80 2020-0 Yes 80mg Take 80 mg U nivers mg tablet 1-16 by mouth ity of 00:00: every 12 [place] 00 (twelve) Medical hours. Branch sotalol 80 2020-0 Yes 80mg Take 80 mg U nivers mg tablet 1-16 by mouth ity of 00:00: every 12 [place] 00 (twelve) Medical hours. Branch sotalol 80 2020-0 Yes 80mg Take 80 mg U nivers mg tablet 1-16 by mouth ity of 00:00: every 12 [place] 00 (twelve) Medical hours. Branch sotalol 80 2020-0 Yes 80mg Take 80 mg U nivers mg tablet 1-16 by mouth ity of 00:00: every 12 [place] 00 (twelve) Medical hours. Branch sotalol 80 2020-0 Yes 80mg Take 80 mg U nivers mg tablet 1-16 by mouth ity of 00:00: every 12 [place] 00 (twelve) Medical hours. Branch sotalol 80 2020-0 Yes 80mg Take 80 mg U nivers mg tablet 1-16 by mouth ity of 00:00: every 12 [place] 00 (twelve) Medical hours. Branch sotalol 80 2020-0 Yes 80mg Take 80 mg U nivers mg tablet 1-16 by mouth ity of 00:00: every 12 [place] 00 (twelve) Medical hours. Branch sotalol 80 2020-0 Yes 80mg Take 80 mg U nivers mg tablet 1-16 by mouth ity of 00:00: every 12 [place] [address] (twelve) Medical hours. Branch sotalol 80 2020-0 Yes 80mg Take 80 mg U nivers mg tablet 1-16 by mouth ity of 00:00: every 12 [place] [address] (twelve) Medical hours. Branch butorphanol 2018-02 Yes USE 1 Unive rs 10 mg/mL 2-20 SPRAY IN ity of nasal spray 00:00: ONE [place] [address] NOSTRIL Medical EVERY 8 Branch HOURS NEEDED FOR HEADACHE butorphanol 2018-02 Yes USE 1 Unive rs 10 mg/mL 2-20 SPRAY IN ity of nasal spray 00:00: ONE [place] [address] NOSTRIL Medical EVERY 8 Branch HOURS NEEDED FOR HEADACHE butorphanol 2018-02 Yes USE 1 Unive rs 10 mg/mL 2-20 SPRAY IN ity of nasal spray 00:00: ONE [place] [address] NOSTRIL Medical EVERY 8 Branch HOURS NEEDED FOR HEADACHE butorphanol 2018-02 Yes USE 1 Unive rs 10 mg/mL 2-20 SPRAY IN ity of nasal spray 00:00: ONE [place] [address] NOSTRIL Medical EVERY 8 Branch HOURS NEEDED FOR HEADACHE butorphanol 2018-02 Yes USE 1 Unive rs 10 mg/mL 2-20 SPRAY IN ity of nasal spray 00:00: ONE [place] [address] NOSTRIL Medical EVERY 8 Branch HOURS NEEDED FOR HEADACHE butorphanol 2018-02 2020- No USE 1 Univ ers 10 mg/mL 2-20 02-07 SPRAY IN ity of nasal spray 00:00: 00:00 ONE [place] 00 :00 NOSTRIL Medical EVERY 8 Branch HOURS NEEDED FOR HEADACHE butorphanol 2018- 2020- No USE 1 Univ ers 10 mg/mL 2-20 02-07 SPRAY IN ity of nasal spray 00:00: 00:00 ONE [place] 00 :00 NOSTRIL Medical EVERY 8 Branch HOURS NEEDED FOR HEADACHE pantoprazol 2018- Yes 40mg Take 40 mg Univers e 40 mg EC 2-17 by mouth ity o f tablet 00:00: daily. [address] Branch pantoprazol 2018- Yes 40mg Take 40 mg Univers e 40 mg EC 2-17 by mouth ity o f tablet 00:00: daily. [address] Branch pantoprazol 2018- Yes 40mg Take 40 mg Univers e 40 mg EC 2-17 by mouth ity o f tablet 00:00: daily. [address] pantoprazol 2018-02 Yes 40mg Take 40 mg Univers e 40 mg EC 2-17 by mouth ity o f tablet 00:00: daily. [place] [facility] pantoprazol 2018-02 Yes 40mg Take 40 mg Univers e 40 mg EC 2-17 by mouth ity o f tablet 00:00: daily. [place] [facility] pantoprazol 2018-02 Yes 40mg Take 40 mg Univers e 40 mg EC 2-17 by mouth ity o f tablet 00:00: daily. [place] [facility] pantoprazol 2018-02 Yes 40mg Take 40 mg Univers e 40 mg EC 2-17 by mouth ity o f tablet 00:00: daily. [place] [facility] pantoprazol 2018-02 Yes 40mg Take 40 mg Univers e 40 mg EC 2-17 by mouth ity o f tablet 00:00: daily. [address] pantoprazol 2018-02 Yes 40mg Take 40 mg Univers e 40 mg EC 2-17 by mouth ity o f tablet 00:00: daily. [place] [facility] pantoprazol 2018-02 Yes 40mg Take 40 mg Univers e 40 mg EC 2-17 by mouth ity o f tablet 00:00: daily. [place] [facility] pantoprazol 2018-02 Yes 40mg Take 40 mg Univers e 40 mg EC 2-17 by mouth ity o f tablet 00:00: daily. [place] [facility] pantoprazol 2018-02 Yes 40mg Take 40 mg Univers e 40 mg EC 2-17 by mouth ity o f tablet 00:00: daily. [address] pantoprazol 2018-02 Yes 40mg Take 40 mg Univers e 40 mg EC 2-17 by mouth ity o f tablet 00:00: daily. [place] [facility] pantoprazol 2018-02 Yes 40mg Take 40 mg Univers e 40 mg EC 2-17 by mouth ity o f tablet 00:00: daily. [address] pantoprazol 2018-02 Yes 40mg Take 40 mg Univers e 40 mg EC 2-17 by mouth ity o f tablet 00:00: daily. [address] pantoprazol 2018-02 Yes 40mg Take 40 mg Univers e 40 mg EC 2-17 by mouth ity o f tablet 00:00: daily. [address] pantoprazol 2018-02 Yes 40mg Take 40 mg Univers e 40 mg EC 2-17 by mouth ity o f tablet 00:00: daily. [place] [facility] pantoprazol 2018-02 Yes 40mg Take 40 mg Univers e 40 mg EC 2-17 by mouth ity o f tablet 00:00: daily. [place] [facility] pantoprazol 2018-02 Yes 40mg Take 40 mg Univers e 40 mg EC 2-17 by mouth ity o f tablet 00:00: daily. [place] [facility] pantoprazol 2018-02 Yes 40mg Take 40 mg Univers e 40 mg EC 2-17 by mouth ity o f tablet 00:00: daily. [place] [facility] pantoprazol 2018-02 Yes 40mg Take 40 mg Univers e 40 mg EC 2-17 by mouth ity o f tablet 00:00: daily. [place] [facility] pantoprazol 2018-02 Yes 40mg Take 40 mg Univers e 40 mg EC 2-17 by mouth ity o f tablet 00:00: daily. [place] [facility] pantoprazol 2018-02 Yes 40mg Take 40 mg Univers e 40 mg EC 2-17 by mouth ity o f tablet 00:00: daily. [place] [facility] pantoprazol 2018-02 Yes 40mg Take 40 mg Univers e 40 mg EC 2-17 by mouth ity o f tablet 00:00: daily. [place] [facility] pantoprazol 2018-02 Yes 40mg Take 40 mg Univers e 40 mg EC 2-17 by mouth ity o f tablet 00:00: daily. [place] [facility] pantoprazol 2018-02 Yes 40mg Take 40 mg Univers e 40 mg EC 2-17 by mouth ity o f tablet 00:00: daily. [place] [facility] pantoprazol 2018-02 Yes 40mg Take 40 mg Univers e 40 mg EC 2-17 by mouth ity o f tablet 00:00: daily. [place] [facility] pantoprazol 2018-02 Yes 40mg Take 40 mg Univers e 40 mg EC 2-17 by mouth ity o f tablet 00:00: daily. [place] [facility] pantoprazol 2018-02 Yes 40mg Take 40 mg Univers e 40 mg EC 2-17 by mouth ity o f tablet 00:00: daily. [place] [facility] pantoprazol 2018-02 Yes 40mg Take 40 mg Univers e 40 mg EC 2-17 by mouth ity o f tablet 00:00: daily. [address] pantoprazol 2018-02 Yes 40mg Take 40 mg Univers e 40 mg EC 2-17 by mouth ity o f tablet 00:00: daily. [place] [facility] pantoprazol 2018-02 Yes 40mg Take 40 mg Univers e 40 mg EC 2-17 by mouth ity o f tablet 00:00: daily. [place] [facility] pantoprazol 2018-02 Yes 40mg Take 40 mg Univers e 40 mg EC 2-17 by mouth ity o f tablet 00:00: daily. [place] [facility] pantoprazol 2018-02 Yes 40mg Take 40 mg Univers e 40 mg EC 2-17 by mouth ity o f tablet 00:00: daily. [place] [facility] pantoprazol 2018-02 Yes 40mg Take 40 mg Univers e 40 mg EC 2-17 by mouth ity o f tablet 00:00: daily. [address] pantoprazol 2018-02 Yes 40mg Take 40 mg Univers e 40 mg EC 2-17 by mouth ity o f tablet 00:00: daily. [place] [facility] pantoprazol 2018-02 Yes 40mg Take 40 mg Univers e 40 mg EC 2-17 by mouth ity o f tablet 00:00: daily. [place] [facility] pantoprazol 2018-02 Yes 40mg Take 40 mg Univers e 40 mg EC 2-17 by mouth ity o f tablet 00:00: daily. [place] [facility] pantoprazol 2018-02 Yes 40mg Take 40 mg Univers e 40 mg EC 2-17 by mouth ity o f tablet 00:00: daily. [address] pantoprazol 2018-02 Yes 40mg Take 40 mg Univers e 40 mg EC 2-17 by mouth ity o f tablet 00:00: daily. [place] [facility] pantoprazol 2018-02 Yes 40mg Take 40 mg Univers e 40 mg EC 2-17 by mouth ity o f tablet 00:00: daily. [address] pantoprazol 2018-02 Yes 40mg Take 40 mg Univers e 40 mg EC 2-17 by mouth ity o f tablet 00:00: daily. [address] pantoprazol 2018-02 Yes 40mg Take 40 mg Univers e 40 mg EC 2-17 by mouth ity o f tablet 00:00: daily. [address] pantoprazol 2018-02 Yes 40mg Take 40 mg Univers e 40 mg EC 2-17 by mouth ity o f tablet 00:00: daily. [place] [facility] pantoprazol 2018-02 Yes 40mg Take 40 mg Univers e 40 mg EC 2-17 by mouth ity o f tablet 00:00: daily. [place] [facility] pantoprazol 2018-02 Yes 40mg Take 40 mg Univers e 40 mg EC 2-17 by mouth ity o f tablet 00:00: daily. [place] [facility] pantoprazol 2018-02 Yes 40mg Take 40 mg Univers e 40 mg EC 2-17 by mouth ity o f tablet 00:00: daily. [place] [facility] pantoprazol 2018-02 Yes 40mg Take 40 mg Univers e 40 mg EC 2-17 by mouth ity o f tablet 00:00: daily. [place] [facility] pantoprazol 2018-02 Yes 40mg Take 40 mg Univers e 40 mg EC 2-17 by mouth ity o f tablet 00:00: daily. [place] [facility] pantoprazol 2018-02 Yes 40mg Take 40 mg Univers e 40 mg EC 2-17 by mouth ity o f tablet 00:00: daily. [place] [facility] pantoprazol 2018-02 Yes 40mg Take 40 mg Univers e 40 mg EC 2-17 by mouth ity o f tablet 00:00: daily. [place] [facility] pantoprazol 2018-02 Yes 40mg Take 40 mg Univers e 40 mg EC 2-17 by mouth ity o f tablet 00:00: daily. [address] pantoprazol 2018-02 Yes 40mg Take 40 mg Univers e 40 mg EC 2-17 by mouth ity o f tablet 00:00: daily. [place] [facility] pantoprazol 2018-02 Yes 40mg Take 40 mg Univers e 40 mg EC 2-17 by mouth ity o f tablet 00:00: daily. [place] [facility] pantoprazol 2018-02 Yes 40mg Take 40 mg Univers e 40 mg EC 2-17 by mouth ity o f tablet 00:00: daily. [address] busPIRone 5 2018-02 Yes [id number] TAKE 1 Univers mg tablet 9101 TABLET BY ity o f 00:00: MOUTH [place] [address] TWICE A Medical [facility] busPIRone 5 2018-02 Yes [id number] TAKE 1 Univers mg tablet 002 TABLET BY ity o f 00:00: MOUTH 00 TWICE A Medical DAY Branch busPIRone 5 2018-02 Yes [id number] TAKE 1 Univers mg tablet 0- 9102 TABLET BY ity o f 00:00: MOUTH 00 TWICE A Medical DAY Branch busPIRone 5 2018-02 Yes [id number] TAKE 1 [facility] mg tablet 0- 9102 TABLET BY ity o f 00:00: MOUTH 00 TWICE A Medical DAY Branch busPIRone 5 2018-02 Yes [id number] TAKE 1 [facility] mg tablet 0- 9102 TABLET BY ity o f 00:00: MOUTH 00 TWICE A Medical DAY Branch busPIRone 5 2018-02 Yes [id number] TAKE 1 [facility] mg tablet 0- 9102 TABLET BY ity o f 00:00: MOUTH 00 TWICE A Medical DAY Branch busPIRone 5 2018-02 Yes [id number] TAKE 1 [facility] mg tablet 0-02 TABLET BY ity o f 00:00: MOUTH 00 TWICE A Medical DAY Branch busPIRone 5 2018-02 Yes [id number] TAKE 1 [facility] mg tablet 0-02 TABLET BY ity o f 00:00: MOUTH 00 TWICE A Medical DAY Branch busPIRone 5 2018-02 Yes [id number] TAKE 1 [facility] mg tablet 0-02 TABLET BY ity o f 00:00: MOUTH 00 TWICE A Medical DAY Branch busPIRone 5 2018-02 Yes [id number] TAKE 1 [facility] mg tablet 0-02 TABLET BY ity o f 00:00: MOUTH 00 TWICE A Medical DAY Branch busPIRone 5 2018-02 Yes [id number] TAKE 1 [facility] mg tablet 0-02 TABLET BY ity o f 00:00: MOUTH 00 TWICE A Medical DAY Branch busPIRone 5 2018-02 Yes [id number] TAKE 1 [facility] mg tablet 0- 9102 TABLET BY ity o f 00:00: MOUTH 00 TWICE A Medical DAY Branch busPIRone 5 2018-02 Yes [id number] TAKE 1 [facility] mg tablet 0- 9102 TABLET BY ity o f 00:00: MOUTH 00 TWICE A Medical DAY Branch busPIRone 5 2018-02 2020- No [id number] TAKE 1 [facility] mg tablet 0-02 16-02 TABLET BY ity of 00:00: 00:00 MOUTH [place] 00 :00 TWICE A Medical DAY Branch BUSPIRONE 5 Yes [id number] TAKE 1 [facility] mg tablet 09-08 TABLET BY ity o f 00:00: MOUTH TWICE A Medical DAY Branch butorphanol Yes [id number] 1{spray Use 1 [facility] 10 mg/mL 08-21 } [place] in ity of nasal spray 00:00: each nostril Medical every 8 Branch (eight) hours as needed for Pain. insulin Yes 60U inject 60 Unive rs detemir 5-14 Units ity of U-100 100 18:55: under the [place] as unit/mL 56 skin. Medical injection Branch insulin Yes inject [facility] lispro, 5-14 under the ity of human, 100 18:55: skin. [place] unit/mL 56 Medical injection Branch insulin Yes 60U inject 60 Unive rs detemir 5-14 Units ity of U-100 100 18:55: under the [place] as unit/mL 56 skin. Medical injection Branch insulin Yes inject [facility] lispro, 5-14 under the ity of human, 100 18:55: skin. [place] unit/mL 56 Medical injection Branch insulin Yes 60U inject 60 Unive rs detemir 5-14 Units ity of U-100 100 18:55: under the [place] as unit/mL 56 skin. Medical injection Branch insulin Yes inject [facility] lispro, 5-14 under the ity of human, 100 18:55: skin. [place] unit/mL 56 Medical injection Branch insulin Yes 60U inject 60 Unive rs detemir 5-14 Units ity of U-100 100 18:55: under the [place] as unit/mL 56 skin. Medical injection Branch insulin Yes inject [facility] lispro, 5-14 under the ity of human, 100 18:55: skin. [place] unit/mL 56 Medical injection Branch insulin 0 Yes 60U inject 60 Unive rs detemir 5-14 Units ity of U-100 100 18:55: under the [place] as unit/mL 56 skin. Medical injection Branch insulin Yes inject [facility] lispro, 5-14 under the ity of human, 100 18:55: skin. [place] unit/mL 56 Medical injection Branch insulin 0 Yes 60U inject 60 Unive rs detemir 5-14 Units ity of U-100 100 18:55: under the [place] as unit/mL 56 skin. Medical injection Branch insulin 0 Yes inject [facility] lispro, 5-14 under the ity of human, 100 18:55: skin. [place] unit/mL 56 Medical injection Branch insulin 0 Yes 60U inject 60 Unive rs detemir 5-14 Units ity of U-100 100 18:55: under the [place] as unit/mL 56 skin. Medical injection Branch insulin 0 Yes inject [facility] lispro, 5-14 under the ity of human, 100 18:55: skin. [place] unit/mL 56 Medical injection Branch insulin 0 Yes 60U inject 60 Unive rs detemir 5-14 Units ity of U-100 100 18:55: under the [place] as unit/mL 56 skin. Medical injection Branch insulin Yes inject [facility] lispro, 5-14 under the ity of human, 100 18:55: skin. [place] unit/mL 56 Medical injection Branch insulin 0 Yes 60U inject 60 Unive rs detemir 5-14 Units ity of U-100 100 18:55: under the [place] as unit/mL 56 skin. Medical injection Branch insulin 0 Yes inject [facility] lispro, 5-14 under the ity of human, 100 18:55: skin. [place] unit/mL 56 Medical injection Branch insulin 0 Yes 60U inject 60 Unive rs detemir 5-14 Units ity of U-100 100 18:55: under the [place] as unit/mL 56 skin. Medical injection Branch insulin 0 Yes inject [facility] lispro, 5-14 under the ity of human, 100 18:55: skin. [place] unit/mL 56 Medical injection Branch insulin 0 Yes 60U inject 60 Unive rs detemir 5-14 Units ity of U-100 100 18:55: under the [place] as unit/mL 56 skin. Medical injection Branch insulin 0 Yes inject [facility] lispro, 5-14 under the ity of human, 100 18:55: skin. [place] unit/mL 56 Medical injection Branch pregabalin 0 Yes 300mg Take 300 Un osbaldo 300 mg 5-14 mg by ity of capsule 17:05: mouth. [address] Branch hydrALAZINE 2019-0 Yes 50mg Take 50 mg [facility] 50 mg 5-14 by mouth. ity of tablet 17:05: [address] Branch losartan-hy 2018-0 Yes Take by Uni vers drochloroth 5-14 mouth. ity of iazide 17:05: [place] 100-25 mg 39 Medical per tablet Branch carvedilol 2018-0 Yes 25mg Take 25 mg U nivers 12.5 mg 5-14 by mouth. ity of tablet 17:05: [address] Branch acetaminoph 0 Yes 500mg Take [...] by ity of capsule 17:05: mouth. [address] hydrALAZINE Yes 50mg Take 50 mg [facility] 50 mg 5-14 by mouth. ity of tablet 17:05: [address] Branch losartan-hy 0 Yes Take by Uni vers drochloroth 5-14 mouth. ity of iazide 17:05: [place] 100-25 mg 39 Medical per tablet Branch carvedilol 20190 Yes 25mg Take 25 mg U nivers 12.5 mg 5-14 by mouth. ity of tablet 17:05: [address] Branch acetaminoph 0 Yes 500mg Take 500 U nivers en (TYLENOL 5-14 mg by ity of EXTRA 17:05: mouth [place] STRENGTH) 39 every 6 Medical 500 mg (six) Branch tablet hours as needed for Pain. aspirin-nhi 2018-0 Yes 1{tbl} Take 1 Un [facility] taminophen- 5-14 tablet by ity of caffeine 17:05: mouth [place] (EXCEDRIN 39 every 6 Medical MIGRAINE) (six) [...] mg by ity of capsule 17:05: mouth. [address] Branch hydrALAZINE 2018-0 Yes 50mg Take 50 mg [facility] 50 mg 5-14 by mouth. ity of tablet 17:05: [address] losartan-hy 2018-0 Yes Take by [facility] vers drochloroth 5-14 mouth. ity of iazide 17:05: [place] 100-25 mg 39 Medical per tablet Branch carvedilol 0 Yes 25mg Take 25 mg U nivers 12.5 mg 5-14 by mouth. ity of tablet 17:05: [address] Branch acetaminoph 0 Yes 500mg Take 500 U nivers en (TYLENOL 5-14 mg by ity of EXTRA 17:05: mouth [place] STRENGTH) 39 every 6 Medical 500 mg (six) Branch tablet hours as needed for Pain. aspirin-nhi 2018-0 Yes 1{tbl} Take 1 Un [place] taminophen- 5-14 tablet by ity of caffeine 17:05: mouth [place] (EXCEDRIN 39 every 6 Medical MIGRAINE) (six) [...] by ity of capsule 17:05: mouth. [address] pregabalin 2019-0 Yes 300mg Take 300 Un osbal[place] 300 mg 5-14 mg by ity of capsule 17:05: mouth. [address] hydrALAZINE 2019-0 Yes 50mg Take 50 mg [facility] 50 mg 5-14 by mouth. ity of tablet 17:05: [address] Branch losartan-hy Yes Take by [facility] vers drochloroth 5-14 mouth. ity of iazide 17:05: [place] 100-25 mg 39 Medical per tablet Branch hydrALAZINE 0 Yes 50mg Take 50 mg [facility] 50 mg 5-14 by mouth. ity of tablet 17:05: [address] Branch carvedilol Yes 25mg Take 25 mg U nivers 12.5 mg 5-14 by mouth. ity of tablet 17:05: [address] Branch acetaminoph Yes 500mg Take 500 [...] for Chest pain. losartan-hy Yes Take by [facility] vers drochloroth 5-14 mouth. ity of iazide 17:05: [place] 100-25 mg 39 Medical per tablet Branch pregabalin Yes 300mg Take 300 Un osbaldo 300 mg 5-14 mg by ity of capsule 17:05: mouth. [address] Branch hydrALAZINE Yes 50mg Take 50 mg [facility] 50 mg 5-14 by mouth. ity of tablet 17:05: [address] losartan-hy 0 Yes Take by Uni vers drochloroth 5-14 mouth. ity of iazide 17:05: [place] 100-25 mg 39 Medical per tablet Branch carvedilol Yes 25mg Take 25 mg U nivers 12.5 mg 5-14 by mouth. ity of tablet 17:05: [place] 39 Medical Branch acetaminoph 20190 Yes 500mg Take 500 U nivers en [...] mg by ity of capsule 17:05: mouth. [address] Branch hydrALAZINE 0 Yes 50mg Take 50 mg [facility] 50 mg 5-14 by mouth. ity of tablet 17:05: [address] Branch losartan-hy 0 Yes Take by [facility] vers drochloroth 5-14 mouth. ity of iazide 17:05: [place] 100-25 mg 39 Medical per tablet Branch carvedilol 0 Yes 25mg Take 25 mg U nivers 12.5 mg 5-14 by mouth. ity of tablet 17:05: [address] Branch acetaminoph 0 Yes 500mg Take [...] minutes as needed for Chest pain. carvedilol 0 Yes 25mg Take 25 mg U nivers 12.5 mg 5-14 by mouth. ity of tablet 17:05: [address] Branch pregabalin 2018-0 Yes 300mg Take 300 Un osbal[place] 300 mg 5-14 mg by ity of capsule 17:05: mouth. [address] Branch hydrALAZINE 2018-0 Yes 50mg Take 50 mg [facility] 50 mg 5-14 by mouth. ity of tablet 17:05: [address] Branch losartan-hy 2018-0 Yes Take by [...] minutes as needed for Chest pain. aspirin-nhi 0 Yes 1{tbl} Take 1 Un [...] by ity of capsule 17:05: mouth. [address] hydrALAZINE 0 Yes 50mg Take 50 mg [facility] 50 mg 5-14 by mouth. ity of tablet 17:05: [address] losartan-hy 0 Yes Take by Uni [...] mg by ity of capsule 17:05: mouth. [address] Branch hydrALAZINE 0 Yes 50mg Take 50 mg [facility] 50 mg 5-14 by mouth. ity of tablet 17:05: [address] Branch losartan-hy 0 Yes Take by [facility] vers drochloroth 5-14 mouth. ity of iazide 17:05: [place] 100-25 mg 39 Medical per tablet Branch carvedilol 2018-0 Yes 25mg Take 25 mg U nivers 12.5 mg 5-14 by mouth. ity of tablet 17:05: [address] Branch acetaminoph 0 Yes 500mg Take [...] mg by ity of capsule 17:05: mouth. [address] Branch hydrALAZINE 0 Yes 50mg Take 50 mg [facility] 50 mg 5-14 by mouth. ity of tablet 17:05: [address] Branch losartan-hy 2019-0 Yes Take by Uni vers drochloroth 5-14 mouth. ity of iazide 17:05: [place] 100-25 mg 39 Medical per tablet Branch carvedilol 2018-0 Yes 25mg Take 25 mg U nivers 12.5 mg 5-14 by mouth. ity of tablet 17:05: [address] Branch acetaminoph 0 Yes 500mg Take [...] mg per needed for tablet Pain. nitroglycer [address] 0.3 U nivers in 0.3 mg 5-14 mg under ity of sublingual 17:05: the tongue [place] tablet 39 every 5 Medical (five) Branch minutes as needed for Chest pain. pregabalin 2019-0 Yes 300mg Take 300 Un [place]bal[place] 300 mg 5-14 mg by ity of capsule 17:05: mouth. [address] Branch hydrALAZINE 2018-0 Yes 50mg Take 50 mg [facility] 50 mg 5-14 by mouth. ity of tablet 17:05: [address] losartan-hy 0 Yes Take by Uni vers drochloroth 5-14 mouth. ity of iazide 17:05: [place] 100-25 mg 39 Medical per tablet Branch carvedilol 20190 Yes 25mg Take 25 mg U nivers 12.5 mg 5-14 by mouth. ity of tablet 17:05: [address] Branch acetaminoph 2019-0 Yes 500mg Take [...] mg per needed for tablet Pain. nitroglycer 2018- Yes .3mg Place 0.3 U nivers in 0.3 mg 5-14 mg under ity of sublingual 17:05: the tongue [place] tablet 39 every 5 Medical (five) Branch minutes as needed for Chest pain. pregabalin 2019-0 Yes 300mg Take 300 Un osbal[place] 300 mg 5-14 mg by ity of capsule 17:05: mouth. [place] [address] Medical Branch hydrALAZINE 2018-0 Yes 50mg Take 50 mg [facility] 50 mg 5-14 by mouth. ity of tablet 17:05: [address] Branch losartan-hy 2018-0 Yes Take by Uni vers drochloroth 5-14 mouth. ity of iazide 17:05: [place] 100-25 mg 39 Medical per tablet Branch carvedilol 0 Yes 25mg Take 25 mg U nivers 12.5 mg 5-14 by mouth. ity of tablet 17:05: [address] Branch acetaminoph 0 Yes 500mg Take 500 U nivers en (TYLENOL 5-14 mg by ity of EXTRA 17:05: mouth [place] STRENGTH) 39 every 6 Medical 500 mg (six) Branch tablet hours as needed for Pain. aspirin-nhi Yes 1{tbl} Take 1 Un [place] taminophen- 5-14 tablet by ity of caffeine 17:05: mouth [place] (EXCEDRIN 39 every 6 Medical MIGRAINE) (six) Branch 250-250-65 hours as mg per needed for tablet Pain. nitroglycer Yes .3mg Place 0.3 U nivers in 0.3 mg 5-14 mg under ity of sublingual 17:05: the tongue [place] tablet 39 every 5 Medical (five) Branch minutes as needed for Chest pain. busPIRone 5 2018- 2019- No [id number] 5mg Take 1 [facility] mg tablet 06-27 tablet by ity of 00:00: 00:00 mouth 2 [place] 00 :00 (two) Medical times Branch daily. methIMAzole 2019- Yes 10mg Take 10 mg [facility] 10 mg 4-24 by mouth ity of tablet 00:00: daily. [place] 00 Medical Branch methIMAzole 2018-0 Yes 10mg Take 10 mg [facility] 10 mg 4-24 by mouth ity of tablet 00:00: daily. [facility] methIMAzole 2018-0 Yes 10mg Take 10 mg [facility] 10 mg 4-24 by mouth ity of tablet 00:00: daily. [facility] methIMAzole 2018-0 Yes 10mg Take 10 mg [facility] 10 mg 4-24 by mouth ity of tablet 00:00: daily. [facility] methIMAzole 2018-0 Yes 10mg Take 10 mg [facility] 10 mg 4-24 by mouth ity of tablet 00:00: daily. [facility] methIMAzole 2018-0 Yes 10mg Take 10 mg [facility] 10 mg 4-24 by mouth ity of tablet 00:00: daily. [place] [facility] methIMAzole 2018-0 Yes 10mg Take 10 mg [facility] 10 mg 4-24 by mouth ity of tablet 00:00: daily. [place] [facility] methIMAzole 2018-0 Yes 10mg Take 10 mg [facility] 10 mg 4-24 by mouth ity of tablet 00:00: daily. [facility] methIMAzole 2018-0 Yes 10mg Take 10 mg [facility] 10 mg 4-24 by mouth ity of tablet 00:00: daily. [place] [facility] methIMAzole 2018-0 Yes 10mg Take 10 mg [facility] 10 mg 4-24 by mouth ity of tablet 00:00: daily. [place] [facility] methIMAzole 2018-0 Yes 10mg Take 10 mg [facility] 10 mg 4-24 by mouth ity of tablet 00:00: daily. [place] [facility] methIMAzole 2018-0 Yes 10mg Take 10 mg [facility] 10 mg 4-24 by mouth ity of tablet 00:00: daily. [place] [facility] methIMAzole 2018-0 Yes 10mg Take 10 mg [facility] 10 mg 4-24 by mouth ity of tablet 00:00: daily. [place] [facility] methIMAzole 2019-0 Yes 10mg Take 10 mg [facility] 10 mg 4-24 by mouth ity of tablet 00:00: daily. [place] [facility] methIMAzole 2019-0 Yes 10mg Take 10 mg [facility] 10 mg 4-24 by mouth ity of tablet 00:00: daily. [place] [facility] methIMAzole 2018-0 Yes 10mg Take 10 mg [facility] 10 mg 4-24 by mouth ity of tablet 00:00: daily. [facility] methIMAzole 2019-0 Yes 10mg Take 10 mg [facility] 10 mg 4-24 by mouth ity of tablet 00:00: daily. [facility] methIMAzole 2019-0 Yes 10mg Take 10 mg [facility] 10 mg 4-24 by mouth ity of tablet 00:00: daily. [facility] methIMAzole 2019-0 Yes 10mg Take 10 mg [facility] 10 mg 4-24 by mouth ity of tablet 00:00: daily. [facility] methIMAzole 2019-0 Yes 10mg Take 10 mg [facility] 10 mg 4-24 by mouth ity of tablet 00:00: daily. [facility] methIMAzole 2019-0 Yes 10mg Take 10 mg [facility] 10 mg 4-24 by mouth ity of tablet 00:00: daily. [facility] methIMAzole 2019-0 Yes 10mg Take 10 mg [facility] 10 mg 4-24 by mouth ity of tablet 00:00: daily. [place] [facility] methIMAzole 2019-0 Yes 10mg Take 10 mg [facility] 10 mg 4-24 by mouth ity of tablet 00:00: daily. [facility] methIMAzole 2019-0 Yes 10mg Take 10 mg [facility] 10 mg 4-24 by mouth ity of tablet 00:00: daily. [facility] methIMAzole 2019-0 Yes 10mg Take 10 mg [facility] 10 mg 4-24 by mouth ity of tablet 00:00: daily. [place] [facility] methIMAzole 2019-0 Yes 10mg Take 10 mg [facility] 10 mg 4-24 by mouth ity of tablet 00:00: daily. [facility] methIMAzole 2019-0 Yes 10mg Take 10 mg [facility] 10 mg 4-24 by mouth ity of tablet 00:00: daily. [place] [facility] methIMAzole 2019-0 Yes 10mg Take 10 mg [facility] 10 mg 4-24 by mouth ity of tablet 00:00: daily. [facility] methIMAzole 2019-0 Yes 10mg Take 10 mg [facility] 10 mg 4-24 by mouth ity of tablet 00:00: daily. [place] [facility] methIMAzole 2019-0 Yes 10mg Take 10 mg [facility] 10 mg 4-24 by mouth ity of tablet 00:00: daily. [facility] methIMAzole 2019-0 Yes 10mg Take 10 mg [facility] 10 mg 4-24 by mouth ity of tablet 00:00: daily. [facility] methIMAzole 2019-0 Yes 10mg Take 10 mg [facility] 10 mg 4-24 by mouth ity of tablet 00:00: daily. [facility] methIMAzole 2019-0 Yes 10mg Take 10 mg [facility] 10 mg 4-24 by mouth ity of tablet 00:00: daily. [facility] methIMAzole 2019-0 Yes 10mg Take 10 mg [facility] 10 mg 4-24 by mouth ity of tablet 00:00: daily. [place] [facility] methIMAzole 2019-0 Yes 10mg Take 10 mg [facility] 10 mg 4-24 by mouth ity of tablet 00:00: daily. [place] [facility] methIMAzole 2019-0 Yes 10mg Take 10 mg [facility] 10 mg 4-24 by mouth ity of tablet 00:00: daily. [place] [facility] methIMAzole 2019-0 Yes 10mg Take 10 mg [facility] 10 mg 4-24 by mouth ity of tablet 00:00: daily. [place] [facility] methIMAzole 2019-0 Yes 10mg Take 10 mg [facility] 10 mg 4-24 by mouth ity of tablet 00:00: daily. [place] [facility] methIMAzole 2019-0 Yes 10mg Take 10 mg [facility] 10 mg 4-24 by mouth ity of tablet 00:00: daily. [place] [facility] methIMAzole 2019-0 Yes 10mg Take 10 mg [facility] 10 mg 4-24 by mouth ity of tablet 00:00: daily. [place] [facility] methIMAzole 2019-0 Yes 10mg Take 10 mg [facility] 10 mg 4-24 by mouth ity of tablet 00:00: daily. [place] [facility] methIMAzole 2019-0 Yes 10mg Take 10 mg [facility] 10 mg 4-24 by mouth ity of tablet 00:00: daily. [place] [facility] methIMAzole 2019-0 Yes 10mg Take 10 mg [facility] 10 mg 4-24 by mouth ity of tablet 00:00: daily. [place] [facility] methIMAzole 2019-0 Yes 10mg Take 10 mg [facility] 10 mg 4-24 by mouth ity of tablet 00:00: daily. [place] [facility] methIMAzole 2019-0 Yes 10mg Take 10 mg [facility] 10 mg 4-24 by mouth ity of tablet 00:00: daily. [facility] methIMAzole 2019-0 Yes 10mg Take 10 mg [facility] 10 mg 4-24 by mouth ity of tablet 00:00: daily. [facility] methIMAzole 2019-0 Yes 10mg Take 10 mg [facility] 10 mg 4-24 by mouth ity of tablet 00:00: daily. [facility] methIMAzole 2018-0 Yes 10mg Take 10 mg [facility] 10 mg 4-24 by mouth ity of tablet 00:00: daily. [facility] methIMAzole 2018-0 Yes 10mg Take 10 mg [facility] 10 mg 4-24 by mouth ity of tablet 00:00: daily. [facility] methIMAzole 2018-0 Yes 10mg Take 10 mg [facility] 10 mg 4-24 by mouth ity of tablet 00:00: daily. [facility] methIMAzole 2018-0 Yes 10mg Take 10 mg [facility] 10 mg 4-24 by mouth ity of tablet 00:00: daily. [facility] methIMAzole 2018-0 Yes 10mg Take 10 mg [facility] 10 mg 4-24 by mouth ity of tablet 00:00: daily. [place] [facility] methIMAzole 2019-0 Yes 10mg Take 10 mg [facility] 10 mg 4-24 by mouth ity of tablet 00:00: daily. [place] [facility] methIMAzole 2019-0 Yes 10mg Take 10 mg [facility] 10 mg 4-24 by mouth ity of tablet 00:00: daily. [facility] methIMAzole 2018-0 Yes 10mg Take 10 mg [facility] 10 mg 4-24 by mouth ity of tablet 00:00: daily. [facility] methIMAzole 2019-0 Yes 10mg Take 10 mg [facility] 10 mg 4-24 by mouth ity of tablet 00:00: daily. [facility] methIMAzole 2019-0 Yes 10mg Take 10 mg [facility] 10 mg 4-24 by mouth ity of tablet 00:00: daily. [place] [facility] methIMAzole 2018-0 Yes 10mg Take 10 mg [facility] 10 mg 4-24 by mouth ity of tablet 00:00: daily. [facility] methIMAzole 2019-0 Yes 10mg Take 10 mg [facility] 10 mg 4-24 by mouth ity of tablet 00:00: daily. [facility] methIMAzole 0 Yes 10mg Take 10 mg [facility] 10 mg 4-24 by mouth ity of tablet 00:00: daily. [facility] methIMAzole 0 Yes 10mg Take 10 mg [facility] 10 mg 4-24 by mouth ity of tablet 00:00: daily. [facility] methIMAzole 0 Yes 10mg Take 10 mg [facility] 10 mg 4-24 by mouth ity of tablet 00:00: daily. [facility] methIMAzole 0 Yes 10mg Take 10 mg [facility] 10 mg 4-24 by mouth ity of tablet 00:00: daily. [facility] methIMAzole Yes 10mg Take 10 mg [facility] 10 mg 4-24 by mouth ity of tablet 00:00: daily. [facility] methIMAzole Yes 10mg Take 10 mg [facility] 10 mg 4-24 by mouth ity of tablet 00:00: daily. [facility] methIMAzole Yes 10mg Take 10 mg [facility] 10 mg 4-24 by mouth ity of tablet 00:00: daily. [facility] methIMAzole 0 Yes 10mg Take 10 mg [facility] 10 mg 4-24 by mouth ity of tablet 00:00: daily. [facility] methIMAzole 0 Yes 10mg Take 10 mg [facility] 10 mg 4-24 by mouth ity of tablet 00:00: daily. [facility] doxazosin 2 Yes TAKE 0.5 Un osbaldo mg tablet 4-22 TABLET BY ity o f 00:00: 2 TIMES [place] DAY Medical Branch doxazosin 2 Yes TAKE 0.5 Un [facility] mg tablet 4-22 TABLET BY ity o f 00:00: 2 TIMES [place] DAY Medical Branch doxazosin 2 Yes TAKE 0.5 Un [facility] mg tablet 4-22 TABLET BY ity o f 00:00: 2 TIMES [place] DAY Medical Branch doxazosin 2 Yes TAKE 0.5 Un [facility] mg tablet 4-22 TABLET BY ity o f 00:00: 2 TIMES [place] DAY Medical Branch doxazosin 2 2019-0 Yes [...] BY ity o f 00:00: 2 TIMES [place] EVERY DAY Medical Branch doxazosin 2 2018- Yes TAKE 0.5 Un [facility] mg tablet 4-22 TABLET BY ity o f 00:00: 2 TIMES [place] EVERY DAY Medical Branch doxazosin 2 2018- Yes TAKE 0.5 Un [place] mg tablet 4-22 TABLET BY ity o f 00:00: 2 TIMES [place] EVERY DAY Medical Branch doxazosin 2 2018- Yes TAKE 0.5 Un [place] mg tablet 4-22 TABLET BY ity o f 00:00: 2 TIMES [place] EVERY DAY Medical Branch doxazosin 2 2018-0 Yes TAKE 0.5 Un [place] mg tablet 4-22 TABLET BY ity o f 00:00: 2 TIMES [place] EVERY DAY Medical Branch doxazosin 2 2018-0 Yes TAKE 0.5 Un [facility] mg tablet 4-22 TABLET BY ity o f 00:00: 2 TIMES [place] EVERY DAY Medical Branch doxazosin 2 2019-0 2020- No TAKE 0.5 U nivers mg tablet 4-22 03-06 TABLET BY ity of 00:00: 00:00 2 TIMES [place] 00 :00 EVERY DAY Medical Branch hydrALAZINE 2018- Yes TAKE 1 Univ ers 100 mg [...] by mouth ity of tablet 00:00: daily. [facility] Branch spironolact 2019-0 Yes 25mg Take 25 mg [facility] one 25 mg 3-22 by mouth ity of tablet 00:00: daily. [facility] spironolact 2019-0 Yes 25mg Take 25 mg [facility] one 25 mg 3-22 by mouth ity of tablet 00:00: daily. [facility] spironolact 2019-0 Yes 25mg Take 25 mg [facility] one 25 mg 3-22 by mouth ity of tablet 00:00: daily. [facility] spironolact 2019-0 Yes 25mg Take 25 mg [facility] one 25 mg 3-22 by mouth ity of tablet 00:00: daily. [facility] spironolact 2019-0 Yes 25mg Take 25 mg [facility] one 25 mg 3-22 by mouth ity of tablet 00:00: daily. [facility] spironolact 2018-0 Yes 25mg Take 25 mg [facility] one 25 mg 3-22 by mouth ity of tablet 00:00: daily. [facility] spironolact 2019-0 Yes 25mg Take 25 mg [facility] one 25 mg 3-22 by mouth ity of tablet 00:00: daily. [facility] spironolact 2019-0 Yes 25mg Take 25 mg [facility] one 25 mg 3-22 by mouth ity of tablet 00:00: daily. [facility] spironolact 2019-0 Yes 25mg Take 25 mg [facility] one 25 mg 3-22 by mouth ity of tablet 00:00: daily. [facility] spironolact 2019-0 Yes 25mg Take 25 mg [facility] one 25 mg 3-22 by mouth ity of tablet 00:00: daily. [facility] spironolact 2019-0 Yes 25mg Take 25 mg [facility] one 25 mg 3-22 by mouth ity of tablet 00:00: daily. [facility] spironolact 2019-0 Yes 25mg Take 25 mg [facility] one 25 mg 3-22 by mouth ity of tablet 00:00: daily. [facility] spironolact 2019-0 Yes 25mg Take 25 mg [facility] one 25 mg 3-22 by mouth ity of tablet 00:00: daily. [facility] spironolact 2019-0 2020- No 25mg Take 25 mg [facility] one 25 mg [id number] by mouth ity o f tablet 00:00: 00:00 daily. [place] 00 :00 [facility] ALPRAZolam 2017- Yes .5mg Q.5D Take 0.5 [facility] (XANAX) 0.5 4-[address] MG tablet 14:23: mouth 2 Hospi ta 37 (two) l times a day as needed for anxiety. butorphanol Yes 1{spray Q8H 1 spray [facility] (STADOL) 10 4- } into each st mg/mL nasal 14:23: nostril [facility] [place] spray 37 every 8 l (eight) hours as needed (for Headache). clonIDINE 2017- Yes .2mg [id number] Take 0.2 [facility] HCl 4- [id number] mg by st (CATAPRES) 14:23: 3D mouth 3 [facility] 0.2 MG 37 (three) l tablet times a day. hydrALAZINE Yes 50mg [id number] Take 50 mg [facility] (APRESOLINE 4- [id number] by mouth 3 st ) 50 MG 14:23: 3D (three) Hospita tablet 37 times a l day. insulin 0 Yes 60U Q.5D Inject 60 Metho di detemir 4-[address] U-100 14:23: under the Hosp[facility] (LEVEMIR) 37 skin 2 l 100 unit/mL (two) injection times a day. losartan-hy Yes 1{tbl} QD Take 1 [facility] drochloroth 4-[address] iazide 14:23: mouth [facility]osp[facility] (HYZAAR) 37 daily. l 100-25 mg per tablet mirtazapine 2017-0 Yes 15mg QD Take 15 mg [facility] (REMERON) 4-[address] 15 MG 14:23: nightly. [facility]osp[facility] tablet 37 l pregabalin 2017-0 Yes 300mg Q.5D Take 300 [facility] (LYRICA) 4-[address] 300 MG 14:23: mouth 2 [facility] capsule 37 (two) l times a day. ALPRAZolam Yes .5mg Q.5D Take 0.5 [facility] (XANAX) 0.5 4-[address] MG tablet 14:23: mouth 2 Hospi ta 37 (two) l times a day as needed for anxiety. butorphanol 2018-0 Yes 1{spray Q8H 1 spray [facility] (STADOL) 10 4-01 } into each st mg/mL nasal 14:23: nostril [facility] [place] spray 37 every 8 l (eight) hours as needed (for Headache). clonIDINE 2018-0 Yes .2mg Q.[id number] Take 0.2 [facility] HCl 4- [id number] mg by st (CATAPRES) 14:23: 3D mouth 3 Hosp tanika 0.2 MG 37 (three) l tablet times a day. hydrALAZINE 2017-0 Yes 50mg Q.68024476 Take 50 mg [facility] (APRESOLINE -01 [id number] by mouth 3 st ) 50 MG 14:23: 3D (three) Hospita tablet 37 times a l day. insulin 2018-0 Yes 60U Q.5D Inject 60 Metho di detemir 4-[address] U-100 14:23: under the Hospita (LEVEMIR) 37 skin 2 l 100 unit/mL (two) injection times a day. losartan-hy 2017-0 Yes 1{tbl} QD Take 1 Me thodi drochloroth 4-[address] iazide 14:23: mouth Hospita (HYZAAR) 37 daily. l 100-25 mg per tablet mirtazapine 2017-0 Yes 15mg QD Take 15 mg [facility] (REMERON) 4-[address] 15 MG 14:23: nightly. Hospita tablet 37 l pregabalin 2018-0 Yes 300mg Q.5D Take 300 Me thodi (LYRICA) 4-[address] 300 MG 14:23: mouth 2 Hospita capsule 37 (two) l times a day. sitaGLIPtin 2018-0 Yes 100mg QD Take 100 M ethodi (JANUVIA) 4-[address] 100 MG 14:23: mouth Hospita tablet 37 every l morning. triazolam 2018-0 Yes .25mg QD Take 0.25 Me thodi (HALCION) 4-[address] 0.25 MG 14:23: mouth Hospita tablet 37 nightly. l insulin 2018-0 Yes Q.[id number] Inject Me thodi lispro 4-[id number] (HumaLOG) 14:23: 3D skin 3 Hospit a 100 unit/mL 37 (three) l injection times a day before meals. (PER SLIDING SCALE) carvedilol 2018-0 Yes 12.5mg Q.5D Take 12.5 [facility] (COREG) 4-[address] 12.5 MG 14:23: mouth 2 Hospita tablet 37 (two) l times a day. sitaGLIPtin 2018-0 Yes 100mg QD Take 100 M ethodi (JANUVIA) 4-[address] 100 MG 14:23: mouth Hospita tablet 37 every l morning. triazolam 2018-0 Yes .25mg QD Take 0.25 Me thodi (HALCION) 4-[address] 0.25 MG 14:23: mouth Hospita tablet 37 nightly. l insulin 2018-0 Yes Q.[id number] Inject Me thodi lispro 4-[id number] (HumaLOG) 14:23: 3D skin 3 Hospit a 100 unit/mL 37 (three) l injection times a day before meals. (PER SLIDING SCALE) carvedilol 2017-0 Yes 12.5mg Q.5D Take 12.5 [facility] (COREG) 4-[address] 12.5 MG 14:23: mouth 2 Hospita tablet 37 (two) l times a day. Immunizations Ordered Filled Immunization Date Status Comments [facility] e Immunization Name Name SARS-COV-2 COVID-19 2020-05-12 Completed Unive rsity of MODERNA VACCINE 00:00:00 [facility] SARS-COV-2 COVID-19 2020-05-12 Completed Unive rsity of MODERNA VACCINE 00:00:00 [facility] SARS-COV-2 COVID-19 2020-05-12 Completed Unive rsity of MODERNA VACCINE 00:00:00 [facility] SARS-COV-2 COVID-19 2020-04-14 Completed Unive rsity of MODERNA VACCINE 00:00:00 [facility] SARS-COV-2 COVID-19 2020-04-14 Completed Unive rsity of [facility] VACCINE 00:[facility]:00 [facility] SARS-COV-2 COVID-19 2020-04-14 Completed Unive rsity of MODERNA VACCINE 00:00:00 [facility] SARS-COV-2 COVID-19 2020-04-14 Completed Unive rsity of MODERNA VACCINE 00:00:00 [facility] SARS-COV-2 COVID-19 2020-04-14 Completed Unive rsity of MODERNA VACCINE 00:00:00 [facility] ical [facility] SARS-COV-2 COVID-19 2020-04-14 Completed Unive rsity of MODERNA VACCINE 00:00:00 [place] [facility] SARS-COV-2 COVID-19 2020-04-14 Completed Unive rsity of MODERNA VACCINE 00:00:00 [facility] ical Branch SARS-COV-2 COVID-19 2020-04-14 Completed Unive rsity of MODERNA VACCINE 00:00:00 [facility] ical Branch SARS-COV-2 COVID-19 2020-04-14 Completed Unive rsity of MODERNA VACCINE 00:00:00 [facility] ical Branch SARS-COV-2 COVID-19 2020-04-14 Completed Unive rsity of MODERNA VACCINE 00:00:00 [facility] ical Branch SARS-COV-2 COVID-19 2020-04-14 Completed Unive rsity of MODERNA VACCINE 00:00:00 [facility] ical Branch SARS-COV-2 COVID-19 2020-04-14 Completed Unive rsity of MODERNA VACCINE 00:00:00 [facility] ical Branch SARS-COV-2 COVID-19 2020-04-14 Completed Unive rsity of MODERNA VACCINE 00:00:00 [facility] ical Branch SARS-COV-2 COVID-19 2020-04-14 Completed Unive rsity of MODERNA VACCINE 00:00:00 [facility] ical Branch SARS-COV-2 COVID-19 2020-04-14 Completed Unive rsity of MODERNA VACCINE 00:00:00 [facility] ical Branch SARS-COV-2 COVID-19 2020-04-14 Completed Unive rsity of MODERNA VACCINE 00:00:00 [facility] ical Branch SARS-COV-2 COVID-19 2020-04-14 Completed Unive rsity of MODERNA VACCINE 00:00:00 [facility] Vital Signs Vital Name Observation Time Observation Value Comments Source Body height 2019-04-20 15:34:00 165.1 cm [facility] Body weight 2019-04-20 15:34:00 104.327 kg [facility] BMI 2019-04-20 15:34:00 38.27 kg/m2 [facility] Systolic blood 2019-03-23 16:31:00 173 mm[Hg] Univer sity of pressure [facility] Diastolic blood 2019-03-23 16:31:00 90 mm[Hg] Unive rsity of pressure [facility] Heart rate 2019-03-23 16:31:00 64 /min [facility] Body temperature 2019-03-23 16:31:00 36.72 [facility] Res[facility] rate 2019-03-23 16:31:00 18 /min [facility] Body height 2019-03-23 16:31:00 165.1 cm [facility] Body weight 2019-03-23 16:31:00 97.24 kg Universi ty [facility] BMI 2019-03-23 16:31:00 35.67 kg/m2 [facility] Procedures Procedure Date / Time Performing Clinician Source Performed [id number] 2021-05-24 00:00:00 DIAMANTE ALONZO [facility] Center MEDICATION CORRESPONDENCE 2020-01-21 06:01:00 Doctor Unassigned, [facility] Plan of Care Planned Activity Planned Date Details Comments Source Future Scheduled 2022-01-28 COVID-19 VACCINE (#1) [facility] Test 15:34:49 [code = COVID-19 VACCINE (#1)] Future Scheduled 2022-01-28 BREAST CANCER [facility] Test 15:34:49 SCREENING [code = BREAST CANCER SCREENING] Future Scheduled 2022-01-28 COLONOSCOPY SCREENING [facility] Test 15:34:49 [code = COLONOSCOPY SCREENING] Future Scheduled 2022-01-28 SHINGLES VACCINES (1 Met [facility] Test 15:34:49 of 2) [code = SHINGLES VACCINES (1 of 2)] Future Scheduled 2022-01-28 65+ [facility]AL [facility] 15:34:49 VACCINE (1 - PCV) [code = 65+ PNEUMOCOCCAL VACCINE (1 - PCV)] Future Scheduled 2022-01-28 INFLUENZA VACCINE [facility] Test 15:34:49 [code = INFLUENZA VACCINE] Future Scheduled 2021-10-15 HEPATITIS B VACCINES Met [facility] Test 06:27:31 (1 of 3 - 3-dose series) [code = HEPATITIS B VACCINES (1 of 3 - 3-dose series)] Future Scheduled 2021-10-15 COVID-19 VACCINE (#1) [facility] Test 06:27:31 [code = COVID-19 VACCINE (#1)] Future Scheduled 2021-10-15 BREAST CANCER [facility] Hospital Test 06:27:31 SCREENING [code = BREAST CANCER SCREENING] Future Scheduled 2021-10-15 COLONOSCOPY SCREENING [facility] Test 06:27:31 [code = COLONOSCOPY SCREENING] Future Scheduled 2021-10-15 SHINGLES VACCINES (1 Met [facility] Test 06:27:31 of 2) [code = SHINGLES VACCINES (1 of 2)] Future Scheduled 2021-10-15 65+ PNEUMOCOCCAL [facility] Test 06:27:31 VACCINE (1 - PCV) [code = 65+ PNEUMOCOCCAL VACCINE (1 - PCV)] Future Scheduled 2021-10-15 INFLUENZA VACCINE Method [facility] Test 06:27:31 [code = INFLUENZA VACCINE] Encounters Start End Encounter Admission Attending Care Care Encounter Source Date/Time Date/Time Type Type Clinicians Facility Department ID 2021-06-09 Outpatient [facility] [id number] [place] 14:19:02 [id number] Health 2021-06-22 2021-06-22 Outpatient EFRAÍN [facility]LEXANDER [facility] [id number] [facility] 10:40:00 10:40:00 [facility] 2021-06-17 2021-06-17 Telephone Emma COBROCK 1.2.840.114 [id number] Univers 00:00:00 00:00:00 Efraín [facility] [id number] [facility] [id number] Trino as MARQUES?BLEA [phone] Ak shir[address] MEDICAL OFFICE BUILDING 2021-05-17 2021-05-27 Inpatient EM Kt Holly [facility] [id number] [facility] 02:24:00 14:50:00 66 [facility] 2020-09-07 2020-09-07 [facility] 1.2.840.114 [id number] Univers 00:00:00 00:00:00 Efraín Radford Kristin [id number] [id number] [phone] [address] 2020-06-18 2020-06-18 [facility] 1.2.840.114 [id number] Univers 00:00:00 00:00:00 Efraín Foster [id number] [id number] [phone] [address] 2020-05-12 2020-05-12 Sherri [facility]ER [facility] [id number] Univers 16:00:00 16:00:00 ALLA ity [facility] 2020-04-18 2020-04-[address] [facility] 1.2.840.114 [id number] Univers 00:00:00 00:00:00 Efraín Foster [id number] [id number] [phone] [address] 2020-04-18 2020-04-[address] [facility] 1.2.840.114 [id number] Univers 00:00:00 00:00:00 Efraín Radford Kristin [id number] [id number] [phone] Ak dic[address] 2020-04-18 2020-04-18 [facility] 1.2.840.114 [id number] Univers 00:00:00 00:00:00 Efraín Foster [id number] [id number] [phone] Me dical nal 092 [facility] 2020-04-17 2020-04-[address] [facility] 1.2.840.114 [id number] Univers 00:00:00 00:00:00 Efraín Foster [id number] [id number] [phone] [facility] [address] [place] [address] 2020-04-16 2020-04-[address] [facility] 1.2.840.114 [id number] Univers 00:00:00 00:00:00 Efraín Foster [id number] [id number] [phone] [address] 2020-04-16 2020-04-[address] [facility] 1.2.840.114 [id number] Univers 00:00:00 00:00:00 Efraín Foster [id number] [id number] [phone] [facility] 059 [facility] 2020-04-16 2020-04-16 [facility] 1.2.840.114 [id number] Univers 00:00:00 00:00:00 Efraín Foster [id number] [id number] [phone] [address] 2020-04-14 2020-04-14 Sher[facility] [id number] Univers 15:50:00 15:50:00 ALLA ity of [facility] 2020-03-19 2020-03-[address] [facility] 1.2.840.114 [id number] Univers 00:00:00 00:00:00 Efraín Foster [id number] [id number] [phone] [address] 2020-02-28 2020-02-28 [facility] 1.2.840.114 [id number] Univers 00:00:00 00:00:00 Efraín Foster [id number] [place] [phone] Ak dicmt nal [address] [place] [address] 2020-02-19 2020-02-19 Refalfonzo [facility]GER[facility] 1.2.840.114 [id number] Univers 00:00:00 00:00:00 Efraín Radford Kristin 350.1.13.10 [id number] [phone] [address] 2020-01-21 2020-01-21 [facility] 1.2.840.114 [id number] Univers 00:00:00 00:00:00 Efraín Foster [id number] [place] [phone] [address] 2020-01-21 2020-01-21 Orders Doctor HOANG 1.2.840.114 [id number] Univers 00:00:00 00:00:00 Only Unassigned, JESUSITA 350.1.13.10 ity of [place] [facility] 4.2.7.2.686 Trino as [phone] [address] 2019-12-25 2019-12-[address] [facility] 1.2.840.114 [id number] Univers 00:00:00 00:00:00 Efraín Prabhakar Foster [id number] [id number] [phone] [address] 2019-12-24 2019-12-24 Jonathan [facility] 1.2.840.114 [id number] Univers 00:00:00 00:00:00 Efraín Foster 350.1.13.10 [place] [phone] [address] 2019 2019 Refalfonzo Carter, [facility] 1.2.840.114 [id number] Univers 00:00:00 00:00:00 Efraín Foster 350.1.13.10 [place] [phone] [address] 2019-11-23 2019-11-23 Balwinder Carter, [facility] 1.2.840.114 [id number] Univers 00:00:00 00:00:00 Efraín Foster 350.1.13.10 [id number] [phone] [address] 2019-11-23 2019-11-23 Balwinder Carter, [facility] 1.2.840.114 [id number] Univers 00:00:00 00:00:00 Efraín Foster 350.1.13.10 [place] [phone] [facility] nal [address] [place] [address] 2019-10-29 2019-10-29 Refalfonzo Carter, [facility] 1.2.840.114 [id number] Univers 00:00:00 00:00:00 Efraín Foster 350.1.13.10 [place] [phone] [address] 2019-10-26 2019-10-26 Refalfonzo Carter, [facility] 1.2.840.114 [id number] Univers 00:00:00 00:00:00 Efraín Foster 350.1.13.10 [id number] [phone] [facility] nal [address] [place] [address] 2019-09-28 2019-09-28 Balwinder Carter, [facility] 1.2.840.114 [id number] Univers 00:00:00 00:00:00 Efraín Foster 350.1.13.10 [place] [phone] [address] 2019-09-28 2019-09-28 [place] [facility] 1.2.840.114 [id number] Univers 00:00:00 00:00:00 Efraín Foster 350.1.13.10 [place] [phone] [address] 2019-09-25 2019-09-25 Refill Emma, [facility] 1.2.840.114 [id number] Univers 00:00:00 00:00:00 Efraín Foster 350.1.13.10 [place] [phone] [address] 2019-09-10 2019-09-10 Sherri [facility] [id number] Univers 13:00:00 13:00:00 KRISTEL ity of [facility] 2019-08-22 2019-08-22 [facility] 1.2.840.114 [id number] Univers 00:00:00 00:00:00 Efraín Foster 350.1.13.10 [place] [phone] [address] 2019-07-23 2019-07-23 [facility] 1.2.840.114 [id number] Univers 00:00:00 00:00:00 Efraín Foster 350.1.13.10 [place] [phone] [address] 2019-07-20 2019-07-20 [facility] 1.2.840.114 [id number] Univers 00:00:00 00:00:00 Efraín Foster 350.1.13.10 [place] [phone] [address] 2019-07-20 2019-07-20 [facility] 1.2.840.114 [id number] Univers 00:00:00 00:00:00 Efraín Foster 350.1.13.10 [place] [phone] Ak dicmt nal [address] [place] [address] 2019-07-20 2019-07-20 Jonathan [facility] 1.2.840.114 [id number] Univers 00:00:00 00:00:00 Efraín Fostre 350.1.13.10 [place] [phone] [address] 2019-07-19 2019-07-19 Jonathan [facility] 1.2.840.114 [id number] Univers 00:00:00 00:00:00 Efraín Foster 350.1.13.10 [place] [phone] Ak dicmt nal [address] [place] [address] 2019-07-18 2019-07-18 Refalfonzo [facility]GERALD [facility] 1.2.840.114 [id number] Univers 00:00:00 00:00:00 Efraín Foster 350.1.13.10 [place] [phone] Ak dicmt nal 092 [facility] 2019-07-06 2019-07-06 Jonathan [facility] 1.2.840.114 [id number] Univers 00:00:00 00:00:00 Efraín Foster 350.1.13.10 [place] [phone] Ak dicmt nal 092 [facility] 2019-07-05 2019-07-05 Refalfonzo BeckGERALD CHAMPION [facility] 1.2.840.114 [id number] Univers 00:00:00 00:00:00 W[facility] 350.1.13.10 ity of [place] 4.2.7.2.686 Trino as Professio [phone] [facility] nal 044 [facility] 2019-07-03 2019-07-03 Telemedici Emma [facility] 1.2.840.114 [id number] Univers 08:05:45 10:48:54 ne Visit Efraín Prabhakar Foster 350.1.13.10 [place] [phone] [address] 2019-07-03 2019-07-03 Outpatient R EFRAÍN CARTER [facility] [id number] Univers 09:20:00 09:20:00 EFRAÍN CARTER ity of [facility] 2019-06-19 2019-06-19 Telephone Emma [facility] 1.2.840.114 [id number] Univers 00:00:00 00:00:00 Efraín Foster 350.1.13.10 [place] [phone] [address] 2019-06-18 2019-06-18 Telephone Emma [facility] 1.2.840.114 [id number] Univers 00:00:00 00:00:00 Efraín Foster 350.1.13.10 [place] [phone] [address] 2019-05-28 2019-05-28 Refill Emma [facility] 1.2.840.114 [id number] Univers 00:00:00 00:00:00 Efraín Foster 350.1.13.10 [place] [phone] [address] 2019-05-16 2019-05-16 Telephone Emma [facility] 1.2.840.114 [id number] Univers 00:00:00 00:00:00 Efraín Foster 350.1.13.10 [place] [phone] [address] 2019-05-13 2019-05-13 Refill Nicky [facility] 1.2.840.114 [id number] Univers 00:00:00 00:00:00 Wondiful [facility] Health 350.1.13.10 ity of [place] 4.2.7.2.686 Trino as Professio [phone] Ak michele garza 044 [facility] 2019-05-13 2019-05-13 Balwinder [facility] 1.2.840.114 [id number] Univers 00:00:00 00:00:00 Efraín Gene [place] 350.1.13.10 [place] [phone] Ak shirleymt greg 092 [facility] 2019-05-09 2019-05-09 Outpatient R GIFTY [facility] [id number] Univers 14:15:00 14:15:00 TAMARA ity of [facility] 2019-05-09 2019-05-09 Telephone [facility] 1.2.840.114 [id number] Univers 00:00:00 00:00:00 W[facility] 350.1.13.10 ity of [place] 4.2.7.2.686 Trino as Professio [phone] Ak shirleymt gerg [address] [place] [address] 2019-05-09 2019-05-09 Telephone Gifty [facility] 1.2.840.114 [id number] Univers 00:00:00 00:00:00 Tamara D SPECIALTY 350.1.13.10 [place] [phone] Ak michele [facility] 2019-05-08 2019-05-08 Telephone [facility] 1.2.840.114 [id number] Univers 00:00:00 00:00:00 [facility] 350.1.13.10 ity of [place] 4.2.7.2.686 Trino as Professio [phone] Ak shirleymt greg 044 [facility][Note 3] 2019-04-20 2019-04-20 Office [facility] 1.2.840.114 [id number] Univers 09:23:30 19:21:09 Visit [facility] 350.1.13.10 ity of [place] 4.2.7.2.686 Trino as Professio [phone] Ak dical nal 044 [place] [facility] 2019-04-20 2019-04-20 [facility] [id number] Univers 09:00:00 09:00:00 WONDIFUL ity o f [facility] 2019-04-19 2019-04-19 [place] [facility] 1.2.840.114 [id number] [facility] 00:00:00 00:00:00 Efraín Prabhakar Foster 350.1.13.10 [place] [phone] Ak dical nal 092 [facility] 2019-04-15 2019-04-15 Refill [facility] 1.2.840.114 [id number] [facility] 00:00:00 00:00:00 Efraín Foster 350.1.13.10 [place] [phone] Ak dical nal 092 [facility] 2019-03-23 2019-03-23 [facility] 1.2.840.114 [id number] [facility] 09:58:29 11:26:48 Visit Efraín Prabhakar Foster 350.1.13.10 [place] [phone] Ak dicmt nal 092 [facility] 2019-03-22 2019-03-22 [facility] 1.2.840.114 [id number] Univers 00:00:00 00:00:00 Efraín Radford Kristin 350.1.13.10 [place] [phone] Ak dicmt nal [address] [place] [address] 2019-03-22 2019-03-22 [facility] 1.2.840.114 [id number] [facility] 00:00:00 00:00:00 Efraín Foster 350.1.13.10 [place] [phone] [facility] 092 [facility] 2019-03-16 2019-03-16 Refalfonzo Carter, [facility] 1.2.840.114 [id number] Univers 00:00:00 00:00:00 Efraín Foster 350.1.13.10 [place] [phone] [facility] nal [address] [place] [address] 2019-03-07 2019-03-07 Jonathan [facility] 1.2.840.114 [id number] Univers 00:00:00 00:00:00 Efraín Foster 350.1.13.10 [place] [phone] [facility] nal [address] [place] [address] 2018-09-08 2018-09-08 Balwinder [facility] 1.2.840.114 [id number] Univers 00:00:00 00:00:00 Efraín Foster 350.1.13.10 [place] [phone] [address] Results Test Description Test Time Test Comments Results Result Comments Source GLUBED 2021-05-28 00:11:00 Test Item Value Reference Range Interpretation Comme nts GLUBED (test code = GLUBED) 115 MG/DL 70-105 H [id number] 12:02:00 Test Item Value Reference Range Interpretation Comments GLUBED (test code = GLUBED) 148 MG/DL 70-105 H [id number] 00:29:00 Test Item Value Reference Range Interpretation Comments GLUBED (test code = GLUBED) 124 MG/DL 70-105 H [id number] 20:43:00 Test Item Value Reference Range Interpretation Comments GLUBED (test code = GLUBED) 142 MG/DL 70-105 H [id number] 13:20:00 Test Item Value Reference Range Interpretation Comments GLUBED (test code = GLUBED) 180 MG/DL 70-105 H [id number] 05:56:00 Test Item Value Reference Range Interpretation Comments GLUBED (test code = GLUBED) 123 MG/DL 70-105 H [id number] 00:28:00 Test Item Value Reference Range Interpretation Comments GLUBED (test code = GLUBED) 104 MG/DL 70-105 N B-TYPE NATRIURETIC [id number] 08:07:00 Test Item Value Reference Range Interpretation Comments B-TYPE NATRIURETIC PEPTIDE (test 793 pg/mL <100 H code = BNP) BASIC METABOLIC [id number] 08:07:00 Test Item Value Reference Range Interpretation [...] New = CA) Reference Range Mar 2020 [id number] 08:07:00 Test Item Value Reference Range Interpretation Comments PHOSPHOROUS (test code 2.9 mg/dL 2.4-5.1 N Pleas e note: New = PHOS) Reference Range Mar 2020 [id number] 08:07:00 Test Item Value Reference Range Interpretation Comments MAGNESIUM (test code = 1.8 mg/dL 1.6-2.6 N Pleas e note: New MAG) Reference Range Mar 2020 CBC W/AUTO [id number] 07:49:00 Test Item Value Reference Range Interpretation [...] = BA#) 0.03 x10 3/uL 0.0-0.20 N [id number] 07:40:00 Test Item Value Reference Range Interpretation Comments GLUBED (test code = GLUBED) 115 MG/DL 70-105 H [id number] 00:35:00 Test Item Value Reference Range Interpretation Comments GLUBED (test code = GLUBED) 126 MG/DL 70-105 H [id number] 17:23:00 Test Item Value Reference Range Interpretation Comments GLUBED (test code = GLUBED) 121 MG/DL 70-105 H [id number] 11:54:00 Test Item Value Reference Range Interpretation Comments GLUBED (test code = GLUBED) 125 MG/DL 70-105 H [id number] 07:41:00 Test Item Value Reference Range Interpretation Comments GLUBED (test code = GLUBED) 116 MG/DL 70-105 H COMPREHENSIVE METABOLIC [id number] 07:16:00 Test Item Value Reference Range Interpretation [...] ALKP) Reference Range Mar 2020 CBC W/AUTO [id number] 07:07:00 Test Item Value Reference Range Interpretation [...] = BA#) 0.01 x10 3/uL 0.0-0.20 N [id number] 06:53:00 Test Item Value Reference Range Interpretation Comments GLUBED (test code = GLUBED) 108 MG/DL 70-105 H [id number] 00:32:00 Test Item Value Reference Range Interpretation Comments GLUBED (test code = GLUBED) 88 MG/DL 70-105 N [id number] 17:26:00 Test Item Value Reference Range Interpretation Comments GLUBED (test code = GLUBED) 103 MG/DL 70-105 N [id number] 12:28:00 Test Item Value Reference Range Interpretation Comments GLUBED (test code = GLUBED) 105 MG/DL 70-105 N [id number] 10:12:00 Test Item Value Reference Range Interpretation Comments GLUBED (test code = GLUBED) 166 MG/DL 70-105 H [id number] 06:35:00 Test Item Value Reference Range Interpretation Comments GLUBED (test code = GLUBED) 117 MG/DL 70-105 H [id number] 02:42:00 Test Item Value Reference Range Interpretation Comments GLUBED (test code = GLUBED) 116 MG/DL 70-105 H [id number] 12:06:00 Test Item Value Reference Range Interpretation Comments GLUBED (test code = GLUBED) 151 MG/DL 70-105 H - XR CHEST 1 [id number] 08:30:00 [facility] : 1950 Sex: FPatient Name: CYNDI FERRELL Unit No: [id number] EXAMS: CPT CODE: [id number] XR CHEST 1 V 27737 CHEST 1VIEW: INDICATION: chf COMPARISON: There are no prior [...] by:[email or web address] Printed Date/Time: 05/22/2021 (0833) Name: CYNDI FERRELL [facility] Phys: Alberto Carrizales [address] : 1950 Age: 70 Sex: [place] [address] Loc: P.0635 1 Exam Date: 05/22/2021 Status: ADM IN PH: FAX: PAGE 1 Signed ReportBASIC METABOLIC [id number] 07:12:00 Test Item Value Reference Range Interpretation [...] CA) Reference Range Mar 2020 B-TYPE NATRIURETIC [id number] 07:12:00 Test Item Value Reference Range Interpretation Comments B-TYPE NATRIURETIC PEPTIDE (test 857 pg/mL <100 H code = BNP) [id number] 00:21:00 Test Item Value Reference Range Interpretation Comments GLUBED (test code = GLUBED) 155 MG/DL 70-105 H [id number] 17:53:00 Test Item Value Reference Range Interpretation Comments MAGNESIUM (test code = 1.5 mg/dL 1.6-2.6 L Pleas e note: New MAG) Reference Range Mar 2020 [id number] 17:23:00 Test Item Value Reference Range Interpretation Comments GLUBED (test code = GLUBED) 170 MG/DL 70-105 H [id number] 13:04:00 Test Item Value Reference Range Interpretation Comments GLUBED (test code = GLUBED) 153 MG/DL 70-105 H BASIC METABOLIC [id number] 11:13:00 Test Item Value Reference Range Interpretation [...] New = CA) Reference Range Mar 2020 [id number] 07:33:00 Test Item Value Reference Range Interpretation Comments GLUBED (test code = GLUBED) 140 MG/DL 70-105 H [id number] 00:56:00 Test Item Value Reference Range Interpretation Comments GLUBED (test code = GLUBED) 118 MG/DL 70-105 H [id number] 17:29:00 Test Item Value Reference Range Interpretation Comments GLUBED (test code = GLUBED) 118 MG/DL 70-105 H [id number] 12:33:00 Test Item Value Reference Range Interpretation Comments GLUBED (test code = GLUBED) 134 MG/DL 70-105 H BASIC METABOLIC [id number] 08:34:00 Test Item Value Reference Range Interpretation [...] CA) Reference Range Mar 2020 CBC W/AUTO [id number] 08:07:00 Test Item Value Reference Range Interpretation [...] = BA#) 0.00 x10 3/uL 0.0-0.20 N [id number] 05:32:00 Test Item Value Reference Range Interpretation Comments GLUBED (test code = GLUBED) 118 MG/DL 70-105 H [id number] 00:15:00 Test Item Value Reference Range Interpretation Comments GLUBED (test code = GLUBED) 99 MG/DL 70-105 N [id number] 12:09:00 Test Item Value Reference Range Interpretation Comments GLUBED (test code = GLUBED) 184 MG/DL 70-105 H [id number] 08:04:00 Test Item Value Reference Range Interpretation Comments GLUBED (test code = GLUBED) 193 MG/DL 70-105 H [id number] 08:04:00 Test Item Value Reference Range Interpretation Comments GLUBED (test code = GLUBED) 189 MG/DL 70-105 H BASIC METABOLIC [id number] 07:37:00 Test Item Value Reference Range Interpretation [...] CA) Reference Range Mar 2020 COMPREHENSIVE METABOLIC [id number] 07:37:00 Test Item Value Reference Range Interpretation [...] ALKP) Reference Range Mar 2020 CBC W/AUTO [id number] 07:30:00 Test Item Value Reference Range Interpretation [...] = BA#) 0.01 x10 3/uL 0.0-0.20 N [id number] 17:32:00 Test Item Value Reference Range Interpretation Comments GLUBED (test code = GLUBED) 192 MG/DL 70-105 H [id number] 13:01:00 Test Item Value Reference Range Interpretation Comments GLUBED (test code = GLUBED) 205 MG/DL 70-105 H [id number] 13:01:00 Test Item Value Reference Range Interpretation Comments GLUBED (test code = GLUBED) 213 MG/DL 70-105 H [id number] 13:01:00 Test Item Value Reference Range Interpretation Comments GLUBED (test code = GLUBED) 257 MG/DL 70-105 H - XR ABDOMEN [id number] 08:26:00 [facility] : 1950 Sex: FPatient Name: CYNDI FERRELL Unit No: [id number] EXAMS: CPT CODE: [id number] XR ABDOMEN 1V 82304 ABDOMEN, SINGLE VIEW DICTATION LOCATION A1 HISTORY: [...] 0826 Reported and signed by: Yariel Patel Jr,[facility]: Kt Holly MD; Hoang Lake Jr, MD Technologist: Gavin Ledesma Fluoro Time: DAP (Gy m2): AirKerma (mGy): Trscr Dt/Tm: 05/18/2021 (08) by:Efren Printed Date/Time: 05/18/2021 (0829) Name: CYNDI FERRELL [facility] Phys: Hoang Johnson Jr, MD [address] : 1950ge: 70 Sex: [place] [address] Loc: P.0635 1 Exam Date: 05/18/2021 Status: ADM IN PH: FAX: PAGE 1 Signed ReportCOMPREHENSIVE METABOLIC [id number] 06:58:00 Test Item Value Reference Range Interpretation [...] AVG 11.04~~~~~~~~~~ ~~~~~~~ ~~~~~~~~~~~~~~~ ~~~~~~~ ~~~~~~~~~~~~~~~ ~~~~~~N [facility] tacos Education (MEEP ) Guidelines:~~~~ ~~~~~~~ ~~~~~~~~~~~~~~~ ~~~~~~~ ~~~~~~~~~~~~~~~ ~~~~~~~ ~~~~~ HDL Cholesterol<4 0mg/dL: HDL Cholesterol (Major risk factor for CHD)>60mg/dL: H DL Cholesterol (Ne gative risk factor for CHD)40-59mg/dL: Borderline Risk LDL Cholesterol<1 00mg/dL : Desirable LDL -C [id number] 0-159mg /dL: Borderline High Risk LDL-C [id number] 0-189mg /dL: High risk LDL-C concentration H DL-LDL Cholesterol is affected by a n umber of factors such as smoking, age an d sex.~~~~~~~~~~~ ~~~~~~~ ~~~~~~~~~~~~~~~ ~~~~~~~ ~~~~~~~~~~~~~~~ ~~~~~ HGBA1C - GLYCOSYLATED [id number] 06:58:00 Test Item Value Reference Range Interpretation Comments GLYCOSYLATED HEMOGLOBIN 6.9 % <5.7 H Diab etic >/= (HA1C) (test code = 6.5%Pred iabetes GLYHGB) 5.7-6.4%Normal < 5.7% CBC W/AUTO [id number] 06:40:00 Test Item Value Reference Range Interpretation [...] = BA#) 0.00 x10 3/uL 0.0-0.20 N [id number] 04:52:00 Test Item Value Reference Range Interpretation Comments GLUBED (test code = GLUBED) 200 MG/DL 70-105 H [id number] 04:52:00 Test Item Value Reference Range Interpretation Comments GLUBED (test code = GLUBED) 260 MG/DL 70-105 H [id number] 17:59:00 Test Item Value Reference Range Interpretation Comments GLUBED (test code = GLUBED) 221 MG/DL 70-105 H [id number] 17:59:00 Test Item Value Reference Range Interpretation Comments GLUBED (test code = GLUBED) 207 MG/DL 70-105 H - CT ABD PELVIS [id number] 12:45:00 [facility] : 1950 Sex: FPatient Name: CYNDI FERRELL Unit No: [id number] EXAMS: CPT CODE: [id number] CT ABD PELVIS W/CONT 00596HXRL: - CT ABD PELVIS W/CONT Location: B2 [...] ascites. Gallbladder: Surgical absence. Spleen: No visualized abnormality. Pancreas: [...] hernia. Vessels: No visualized abnormality. Name: CYNDI FERRELL [facility] Phys: Ho Chavez [address] : 1950 Age: 70Sex: [place] [address] Loc: P.0635 1 Exam Date: 05/17/2021 Status: ADM IN PH: FAX: PAGE 1 Signed Report (CONTINUED) Patient Name: CYNDI FERRELL Unit No: [id number] EXAMS: CPT CODE: [id number] CT ABD PELVIS W/CONT 05108 (Continued) Lymph nodes: No lymphadenopathy Peritoneum/retroperitoneum: No intraabdominal [...] signed by: DEREK GARCIA M.D. CC: Kt oHlly MD; Ho Cody MD Technologist: Lester Winkler CTDI: 14.37 DLP: 892 Trscr Dt/Tm: 05/17/2021 (4181) by:[email or web address] Printed Date/Time: 05/17/2021 (3137) Name: MICA FERRELLY [facility] Phys: Ho Chavez [address] : 1950 Age: 70 Sex: [place] [address] Loc: P.0635 1 Exam Date: 05/17/2021 Status: ADM IN PH: FAX: PAGE 2 Signed Report- US ABDOMEN [id number] 11:02:00 [facility] : 1950 Sex: FPatient Name: SABRACYNDI Unit No: [id number] EXAMS: CPT CODE: [id number] US ABDOMEN COMPLETE 34827 EXAM: ABDOMINAL ULTRASOUND COMPLETE INDICATION: abdominal pain LOCATION CODE: A 1 COMPARISON: None available. TECHNIQUE: Grayscale and limited color sonographic evaluation of the abdomen was performed.FINDINGS: Evaluation is limited by patient body habitus and overlying right upper quadrant scar. LIVE R: The right liver measures 16.2 cm in [...] AND INFERIOR VENA CAVA: Visualized portions appear unrema rkable. ASCITES: There is no abdominal ascites. IMPRESSION: Limited evaluation due to patient body habitus and overlying right upper quadrant scar. No acute abdominal abnormality is clearly seen. Name:CYNDI FERRELL [facility] Phys: Kt Wilson MD [address] : 1950 Age: 70 Sex: [place] [address] Loc: P.0635 1 Exam Date: 05/17/2021 Status: ADM IN PH: FAX: PAGE 1 Signed Report (CONTINUED) Patient Name: CYNDI FERRELL Unit No: [id number] EXAMS: CPT CODE: [id number] US ABDOMEN COMPLETE 22053 (Continued) at 1102 Reported and signed by: SHELIA CROWELL M.D. CC: Kt Holly MD Technologist: TERI CONNOR RDMS (AB) Probe: Trscr Dt/Tm: 05/17/2021 (1102) by:[email or web address] Printed Date/Time: 05/17/2021 (8606) Name: CYNDI FERRELL [facility] Phys: DIAMANTE Keyanna ElayneKt XMD [address] : 1950 Age: 70 Sex: [place] [address] Loc: P.0635 1 Exam Date: 05/17/2021 Status: ADM IN PH: FAX: PAGE 2 Signed Report- XR ABDOMEN [id number] 10:33:00 [facility] : 1950 Sex: FPatient Name: CYNDI FERRELL Unit No: [id number] EXAMS: CPT CODE: [id number] XR ABDOMEN 1V 29759 EXAM: XR ABDOMEN 1 VIEW INDICATION: NG [...] Dt/Tm: 05/17/2021 (1033) by:[email or web address] Printed Date/Time: 05/17/2021 (5548) Name: CYNDI FERRELL [facility] Phys: Lorenzo Moses DO [address] : 1950 Age: 70 Sex: F [place] [address] Loc: P.0635 1 Exam Date: 05/17/2021 Status: ADM IN PH: FAX: PAGE 1 Signed [id number] 08:49:00 Test Item Value Reference Range Interpretation Comments MAGNESIUM (test code = 1.6 mg/dL 1.6-2.6 N Pleas e note: New MAG) Reference Range Mar 2020 THYROID STIMULATING [id number] 08:49:00 Test Item Value Reference Range Interpretation Comments THYROID STIMULATING 1.25 mIU/mL 0.55-4.78 N Please n ote: New HORMONE (test code = Referen ce Range Mar TSH) 2020 COMPREHENSIVE METABOLIC [id number] 08:49:00 Test Item Value Reference Range Interpretation [...] Reference Range Feb code = ALKP) 2020 PROTHROMBIN [id number] 08:35:00 Test Item Value Reference Range Interpretation [...] 2.5-3.5recurren t systemic emboli sm. THROMBOPLASTIN TIME [id number] 08:35:00 Test Item Value Reference Range Interpretation Comments THROMBOPLASTIN TIME 30.6 SECONDS 23.8-34.8 N INTERPRE TATIVE PARTIAL (test code = DATA: erapeutic PTT) range: Unfractionated heparin:55 - 80 seconds Argatroban:1.5 to 3 times the basel ine PTT CBC W/AUTO [id number] 08:27:00 Test Item Value Reference Range Interpretation [...]
[2022-02-19] MEDS ORDERED: MORPHINE 2 MG/ML SYR ONE (11:40)
[2022-02-19 11:43] LABS: Absolute Lymphocytes (CBC) 0.7 K/uL (0.7-4.9); Lymphocytes % 11.9 % (15.3-44.8); MCV 82.6 fL (80-100); MPV 7.9 fL (7.6-11.3); RBC Red Blood Cell Count 4.48 M/uL (3.86-4.86)
--- NOTE | 2022-02-19 11:53 | RAD REPORT ---
EXAM DESCRIPTION: CT - Head Brain Wo Cont - 02/19/2022 11:44 am CLINICAL HISTORY: HTN urgency COMPARISON: Facial Bones W/ Mpr dated 12/17/2021; Head Brain Wo Cont dated 09/30/2021; Head Brain Wo C ont dated 03/07/2021 TECHNIQUE: All CT scans are performed using dose optimization technique as appropriate and may inclu de automated exposure control or mA/KV adjustment according to patient size. FINDINGS: No intracranial hemorrhage, hydrocephalus or extra-axial fluid collection.No areas of brai n edema or evidence of midline shift. Moderate chronic small vessel ischemic changes. Hypoattenuation near the left CP angle in the left lobe of the cerebellum is unchanged and may represent a remote le ft cerebellar infarct. Probable left maxillary sinus mucous retention cyst. The calvarium is intact. IMPRESSION: No acute intracranial abnormality.
[2022-02-19 11:54] LABS: Protime INR 1.39
--- NOTE | 2022-02-19 12:01 | RAD REPORT ---
EXAM DESCRIPTION: CTAbdomen Pelvis W Contrast - 02/19/2022 11:47 am CLINICAL HISTORY: diverticulitis hx COMPARISON: Abdomen Pelvis W Contrast dated 05/16/2021; Abdomen Pelvis W Contrast dated 01/28/2019 ; Abdomen Pelvis W Contrast dated 12/08/2018; Abdomen Pelvis W Contrast dated 04/28/2016 TECHNIQUE: CT of the abdomen and pelvis was performed with IV contrast. All CT scans are performed using dose optimization technique as appropriate and may include automated exposure control or mA/KV adjustment according to patient size. FINDINGS: Lower chest: Small pleural effusions bilaterally. Cardiomegaly. Liver: No acute abnormality or suspicious lesions. Biliary: Cholecystectomy Stomach: No significant focal abnormality. Duodenum: No significant focal abnormality. Pancreas: No significant abnormality. Spleen: No significant abnormality. Adrenal: No suspicious lesions. Kidney/ureter: No hydronephrosis. No renal calculi. Too small to characterize and/or benign appearing renal lesions are noted. Retroperitoneum: No retroperitoneal adenopathy. Vascular: No aneurysm. Bowel: Mild inflammatory changes are noted at the proximal to mid sigmoid. Diverticulosis is noted at this location. No bowel obstruction. Peritoneum: No ascites or free air. Ventral hernia repair Bladder: Grossly unremarkable. Reproductive: No adnexal masses. Bones: No acute fracture. Other: n/a IMPRESSION: Inflammatory changes again noted at the proximal to mid sigmoid likely reflecting a coli tis. If the patient has not had this area evaluated with recent colonoscopy, then diagnostic colonosc opy should be considered when the patient's condition permits. No bowel obstruction. No perforation o r abscess.
[2022-02-19 12:15] LABS: Bilirubin Direct 0.2 mg/dL (0-0.2); Bilirubin Total 0.5 mg/dL (0.2-1.0); Magnesium 1.8 mg/dL (1.6-2.4); Protein, Total 7.5 g/dL (6.4-8.2); Thyroid Stimulating Hormone 0.036 uIU/mL (0.358-3.740)
--- NOTE | 2022-02-19 12:16 | RAD REPORT ---
EXAM DESCRIPTION: RAD - Chest Single View - 02/19/2022 12:10 pm CLINICAL HISTORY: HTN urgency COMPARISON: Chest Single View dated 09/30/2021; Chest Single View dated 09/10/2021; Chest Single View dated 08/15/2021; Abdomen 1 View (KUB) dated 06/26/2021 FINDINGS: Lines: None. Lungs: Diffuse prominence of the pulmonary decision. Pleural: No significant pleural effusions or pneumothorax. Cardiac: Cardiomegaly. Mediastinum: Within normal limits. Bones: No acute fractures. Other: None IMPRESSION: Mild pulmonary edema.
[2022-02-19] MEDS ORDERED: CIPROFLOXACIN 400mg IV 400 MG/200 ML BAG IV ONE (12:17)
[2022-02-19] MEDS ORDERED: HYDROMORPHONE HCL 1 MG/ML INJ ONE ×2 (15:36→19:23)
[2022-02-19 17:14] LABS: SARS-CoV-2 Antigen Rapid Res Negative (Negative)
--- NOTE | 2022-02-19 18:32 | ER ---
Nurse's Notes [facility] Name: Blanka Ferrell Age: 71 yrs Sex: Female : 1950 Arrival Date: 02/19/2022 Time: 10:54 Bed 13 Private MD: Juan José Jacobs Diagnosis: Left sided colitis with rectal bleeding;Chronic thyroiditis with transient thyrotoxicosis;Essential (primary) hypertension Presentation: 02/19 10:57 Chief complaint: EMS states: BRIGHT RED BLOOD CLOTS PER RECTUM SEVERAL TIMES SINCE Y/D bp AFTERNOON. Coronavirus screen: At this time, the client does not indicate any symptoms associated with coronavirus-19. Ebola Screen: No symptoms or risks identified at this time. Initial Sepsis Screen: Does the patient meet any 2 criteria? No. Patient's initial sepsis screen is negative. Does the patient have a suspected source of infection? No. Patient's initial sepsis screen is negative. Risk Assessment: Do you want to hurt yourself or someone else? Patient reports no desire to harm self or others. Onset of symptoms was February 18, 2022 at 16:00. Care prior to arrival: Glucose check: 176. 10:57 Method Of Arrival: EMS: [facility] bp 10:57 Acuity: THALIA 3 bp Triage Assessment: 11:00 General: Appears in no apparent distress. uncomfortable, obese, Behavior is bp cooperative, appropriate for age, anxious. Pain: Complains of pain in right lower quadrant and left lower quadrant. EENT: No deficits noted. Neuro: No deficits noted. Cardiovascular: No deficits noted. Respiratory: No deficits noted. GI: Reports rectal bleeding. : No signs and/or symptoms were reported regarding the genitourinary system. Derm: No deficits noted. Musculoskeletal: No deficits noted. Historical: - Allergies: 10:58 Imitrex; bp - Home Meds: 10:58 Insulin: Humalog Sub-Q [Active]; metoprolol tartrate Oral [Active]; bp - PMHx: 10:58 Anxiety; Congestive heart failure; Diabetes - IDDM; Hypertension; Migraines; Thyroid bp problem; TIA; Chronic obstructive lung disease; - PSHx: 10:58 section; Cholecystectomy; hysterectomy; bp - Immunization history:: Adult Immunizations up to date. - Social history:: Smoking status: Patient denies any tobacco usage or history of. Screenin:40 [facility] ED Fall Risk Assessment (Adult) History of falling in the last 3 months, bp including since admission No falls in past 3 months (0 pts). Abuse screen: Denies threats or abuse. Denies injuries from another. Nutritional screening: No deficits noted. Tuberculosis screening: No symptoms or risk factors identified. Assessment: 11:40 General: PT TO CT. bp 13:09 Reassessment: No changes from previously documented assessment. Patient and/or family bp updated on plan of care and expected duration. Pain level reassessed. 15:02 Reassessment: No changes from previously documented assessment. Patient and/or family bp updated on plan of care and expected duration. Pain level reassessed. 17:00 Reassessment: No changes from previously documented assessment. Patient and/or family bp updated on plan of care and expected duration. Pain level reassessed. 18:03 Reassessment: TRANSFER INITIATED. bp 18:56 Reassessment: CONSENT FOR TRANSFER SIGNED. bp 19:06 Reassessment: REPORT TO ISMAEL GRIMALDO FOR [facility]. bp 19:15 General: Appears in no apparent distress. uncomfortable, obese, well groomed, well pf1 developed, Behavior is calm, cooperative, appropriate for age, quiet. 19:15 Pain: Complains of pain in Patient C/O LUQ pain of 8 and left lower quadrant pain. pf1 Neuro: No deficits noted. Level of Consciousness is awake, alert, obeys commands, Oriented to person, place, time, situation. Cardiovascular: Capillary refill < 3 seconds. Respiratory: No deficits noted. Airway is patent Trachea midline Respiratory effort is even, unlabored, Respiratory pattern is regular, symmetrical. GI: Abdomen is round distended, obese, Reports lower abdominal pain, upper abdominal pain, rectal bleeding. : No deficits noted. No signs and/or symptoms were reported regarding the genitourinary system. EENT: No deficits noted. No signs and/or symptoms were reported regarding the EENT system. Derm: No deficits noted. No signs and/or symptoms reported regarding the dermatologic system. 20:47 General: Patient report given to Lib[place] with [facility]. Patient being transferred at [facility] this time.. Vital Signs: 10:57 BP 196 / 129; Pulse 91; Resp 16; Temp 98; Pulse Ox 97% ; Weight 99.79 kg; Height 5 ft. bp 5 in. (165.10 cm); 11:00 BP 168 / 97; Pulse 91; Resp 23; Pulse Ox 96% ; bp 12:08 BP 175 / 105; Pulse 90; Resp 20; Pulse Ox 96% ; bp 13:08 BP 110 / 83; Pulse 88; Resp 25; Pulse Ox 98% ; bp 15:01 BP 184 / 110; Pulse 93; Resp 22; Pulse Ox 92% ; bp 16:17 BP 161 / 91; Pulse 86; Resp 19; Pulse Ox 97% ; bp 17:00 BP 159 / 102; Pulse 87; Resp 17; Pulse Ox 93% ; bp 18:00 BP 171 / 91; Pulse 88; Resp 15; Pulse Ox 91% ; bp 19:20 BP 159 / 116; Pulse 87; Resp 15; Temp 99.1; Pulse Ox 93% on 2 lpm NC; Pain 8/10; pf1 20:00 BP 181 / 114; Pulse 95; Resp 16; Pulse Ox 93% on 2 lpm NC; Pain 8/10; pf1 20:46 BP 187 / 82; Pulse 92; Resp 16; Temp 98.9; Pulse Ox 94% on 2 lpm NC; Pain 8/10; pf1 10:57 Body Mass Index 36.61 (99.79 kg, 165.10 cm) bp ED Course: 10:54 Patient arrived in ED. eb 10:56 Chris Schreiber, RN is Primary Nurse. bp 10:58 Triage completed. bp 10:59 Arm band placed on. bp 11:00 Rosalind Uribe FNP-C is PHCP. snw 11:00 Sp Rivera DO is Attending Physician. snw 11:17 EKG done, by ED staff, reviewed by Rosalind PARKS-Mirian. jw7 11:30 Inserted saline lock: 22 gauge in left antecubital area, using aseptic technique. Blood bp collected. 11:40 Patient has correct armband on for positive identification. Bed in low position. Call bp light in reach. Side rails up X2. 11:46 CT Head Brain wo Cont In Process Unspecified. EDMS 11:49 CT Abd/Pelvis - IV Contrast Only In Process Unspecified. EDMS 12:12 XRAY Chest (1 view) In Process Unspecified. EDMS 12:46 Juan José Jacobs DO is Private Physician. am2 16:49 initiated a transfer with Avelino Vallecillo Rn from the [facility]. eb 16:51 COVID swab sent to lab. tm3 17:[address] Malone the hospitalist public relations consultant for [facility] with Rosalind Pérez. eb 18:00 Inserted saline lock: 24 gauge in right hand, using aseptic technique. bp 18:23 administrative approval given by Avelino Vallecillo Rn/ patient has been accepted to [address] 11/ Dr. Sandra Malone has accepted the patient in transfer/ report to be called to [phone]. 18:55 No provider procedures requiring assistance completed. Patient transferred, IV remains bp in place. 19:30 Called for transport to [facility] \T\ 2114. wm Administered Medications: 11:45 Drug: morphine 2 mg Route: IVP; Infused Over: 4 mins; Site: left antecubital; bp 15:13 Follow up: Response: No adverse reaction bp 12:15 Drug: Cipro (ciprofloxacin) 400 mg Volume: 200 ml; Route: IVPB; Infused Over: 60 mins; bp Site: left antecubital; 13:48 Follow up: Response: No adverse reaction; IV Status: Completed infusion; IV Intake: db 100ml 15:30 Drug: Dilaudid (HYDROmorphone) 1 mg Route: IVP; Site: left antecubital; bp 18:57 Follow up: Response: No adverse reaction; Pain is decreased bp 19:25 Drug: Dilaudid (HYDROmorphone) 1 mg Route: IVP; Site: right hand; pf1 20:20 Follow up: Response: No adverse reaction; Pain is unchanged, physician notified; RASS: pf1 Alert and Calm (0) Medication: 11:40 VIS not applicable for this client. bp Intake: 13:48 IV: 100ml; Total: 100ml. db Outcome: 18:32 ER care complete, transfer ordered by MD. sheth 19:06 Transferred by ground EMS to [facility]. bp 19:06 Condition: stable 19:06 Instructed on the need for transfer. 20:48 Patient left the ED. pf1 Signatures: Dispatcher [employer] Cristóbal Casillasi tm3 Rosalind Uribe, MANAGED CARE ANALYST-C MANAGED CARE ANALYST-Csnw Gwendolyn Martinez am2 Chris Schreiber, RN RN bp Luisa Ruiz Wendy wm Waits, Jodi jw7 Sun Teixeira, RN RN db Jennifer leiva RN RN pf1
--- NOTE | 2022-02-19 18:32 | EDPHYS ---
Physician Documentation [facility] Name: Blanka Ferrell Age: 71 yrs Sex: Female : 1950 Arrival Date: 02/19/2022 Time: 10:54 Bed 13 Private MD: Juan José Jacobs ED Physician Sp Rivera HPI: 02/19 11:16 This 71 yrs old Black Female presents to ER via EMS with complaints of blood clots per snw rectum, headache. 17:36 Onset: The symptoms/episode began/occurred acutely, 2 day(s) ago, and became snw persistent. Abdominal pain: described as crampy, located in the right lower quadrant and left lower quadrant. Associated signs and symptoms: Pertinent positives: anorexia, anxiety, insomnia, headache. Severity of symptoms: At their worst the symptoms were moderate severe in the emergency department the symptoms have improved mildly. The patient has not experienced similar symptoms in the past. It is unknown whether or not the patient has recently seen a physician. Sees Dr. Gordon. Historical: - Allergies: 10:58 Imitrex; bp - Home Meds: 10:58 Insulin: Humalog Sub-Q [Active]; metoprolol tartrate Oral [Active]; bp - PMHx: 10:58 Anxiety; Congestive heart failure; Diabetes - IDDM; Hypertension; Migraines; Thyroid bp problem; TIA; Chronic obstructive lung disease; - PSHx: 10:58 section; Cholecystectomy; hysterectomy; bp - Immunization history:: Adult Immunizations up to date. - Social history:: Smoking status: Patient denies any tobacco usage or history of. ROS: 11:16 Constitutional: Negative for fever, chills, and weight loss, Eyes: Negative for injury, snw pain, redness, and discharge, ENT: Negative for injury, pain, and discharge, Neck: Negative for injury, pain, and swelling, Cardiovascular: Negative for chest pain, palpitations, and edema, Respiratory: Negative for shortness of breath, cough, wheezing, and pleuritic chest pain, Back: Negative for injury and pain, : Negative for injury, bleeding, discharge, and swelling, MS/Extremity: Negative for injury and deformity, Skin: Negative for injury, rash, and discoloration. 11:16 Abdomen/GI: Positive for abdominal pain, abdominal cramps, blood clots passed a few times since yesterday afternoon. 11:16 Neuro: Positive for headache. Exam: 11:15 Constitutional: This is a well developed, well nourished patient who is awake, alert, snw and in no acute distress. Head/Face: Normocephalic, atraumatic. Eyes: Pupils equal round and reactive to light, extra-ocular motions intact. Lids and lashes normal. Conjunctiva and sclera are non-icteric and not injected. Cornea within normal limits. Periorbital areas with no swelling, redness, or edema. ENT: Nares patent. No nasal discharge, no septal abnormalities noted. Tympanic membranes are normal and external auditory canals are clear. Oropharynx with no redness, swelling, or masses, exudates, or evidence of obstruction, uvula midline. Mucous membranes moist. Neck: Trachea midline, no thyromegaly or masses palpated, and no cervical lymphadenopathy. Supple, full range of motion without nuchal rigidity, or vertebral point tenderness. No Meningismus. Chest/axilla: Normal chest wall appearance and motion. Nontender with no deformity. No lesions are appreciated. Cardiovascular: Regular rate and rhythm with a normal S1 and S2. No gallops, murmurs, or rubs. Normal PMI, no JVD. No pulse deficits. Respiratory: Lungs have equal breath sounds bilaterally, clear to auscultation and percussion. No rales, rhonchi or wheezes noted. No increased work of breathing, no retractions or nasal flaring. Back: No spinal tenderness. No costovertebral tenderness. Full range of motion. Skin: Warm, dry with normal turgor. Normal color with no rashes, no lesions, and no evidence of cellulitis. MS/ Extremity: Pulses equal, no cyanosis. Neurovascular intact. Full, normal range of motion. Psych: Awake, alert, with orientation to person, place and time. Behavior, mood, and affect are within normal limits. 11:15 Neuro: Awake and alert, GCS 15, oriented to person, place, time, and situation. Cranial nerves II-XII grossly intact. Motor strength 5/5 in all extremities. Sensory grossly intact. Cerebellar exam normal. Normal gait. 11:15 Abdomen/GI: Bowel sounds: normal, Palpation: moderate abdominal tenderness, in all quadrants, Rectal exam: rectal tone normal, Stool: grossly bloody, hemorrhoid(s), external, the exam is chaperoned by an auto transmission technician. Vital Signs: 10:57 BP 196 / 129; Pulse 91; Resp 16; Temp 98; Pulse Ox 97% ; Weight 99.79 kg; Height 5 ft. bp 5 in. (165.10 cm); 11:00 BP 168 / 97; Pulse 91; Resp 23; Pulse Ox 96% ; bp 12:08 BP 175 / 105; Pulse 90; Resp 20; Pulse Ox 96% ; bp 13:08 BP 110 / 83; Pulse 88; Resp 25; Pulse Ox 98% ; bp 15:01 BP 184 / 110; Pulse 93; Resp 22; Pulse Ox 92% ; bp 16:17 BP 161 / 91; Pulse 86; Resp 19; Pulse Ox 97% ; bp 17:00 BP 159 / 102; Pulse 87; Resp 17; Pulse Ox 93% ; bp 18:00 BP 171 / 91; Pulse 88; Resp 15; Pulse Ox 91% ; bp 19:20 BP 159 / 116; Pulse 87; Resp 15; Temp 99.1; Pulse Ox 93% on 2 lpm NC; Pain 8/10; pf1 20:00 BP 181 / 114; Pulse 95; Resp 16; Pulse Ox 93% on 2 lpm NC; Pain 8/10; pf1 20:46 BP 187 / 82; Pulse 92; Resp 16; Temp 98.9; Pulse Ox 94% on 2 lpm NC; Pain 8/10; pf1 10:57 Body Mass Index 36.61 (99.79 kg, 165.10 cm) bp MDM: 11:01 Patient medically screened. snw 11:14 Data reviewed: vital signs, nurses notes. Data interpreted: Pulse oximetry: on room air snw is 97 %. Interpretation: normal. Counseling: I had a detailed discussion with the patient and/or guardian regarding: the historical points, exam findings, and any diagnostic results supporting the discharge/admit diagnosis, the presence of at least one elevated blood pressure reading (>120/80) during this emergency department visit. ED course: Pt takes Eliquis. 11:25 ED course: LBBB is not new. snw 15:17 ED course: Ramirez Wartofsky score = 35. snw 17:32 Physician consultation: Dr. Kasper was contacted at 17:32, and will see patient In IMU snw at [facility]. Special discussion: need for transfer as no GI available for admission to [facility]. Discussed case with Dr. Malone, Hospitalist, at [facility]. She kindly accepts pt in transfer to the IMU. 17:36 Response to treatment: the patient's symptoms have mildly improved after treatment. snw 17:36 Differential diagnosis: diverticulitis, hemorrhoids, varices. snw 02/19 11:03 Order name: Basic Metabolic Panel; Complete Time: 12:40 snw 02/19 11:03 Order name: CBC with Diff; Complete Time: 11:50 snw 02/19 11:03 Order name: LFT's; Complete Time: 12:40 snw 02/19 11:03 Order name: Magnesium; Complete Time: 12:40 snw 02/19 11:03 Order name: NT PRO-BNP; Complete Time: 12:40 snw 02/19 11:03 Order name: PT-INR; Complete Time: 11:59 snw 02/19 11:03 Order name: Troponin HS; Complete Time: 12:40 snw 02/19 11:03 Order name: TS; Complete Time: 12:40 snw 02/19 11:03 Order name: TSH; Complete Time: 12:40 snw 02/19 12:01 Order name: CREATININE WHOLE BLOOD; Complete Time: 12:02 EDMS 02/19 15:15 Order name: T4 Free; Complete Time: 15:33 EDMS 02/19 16:40 Order name: Lactate w/ 2H reflex if indic.; Complete Time: 18:33 snw 02/19 16:40 Order name: Hemoglobin; Complete Time: 18:21 snw 02/19 16:45 Order name: SARS RAPID; Complete Time: 17:21 eb 02/19 11:03 Order name: XRAY Chest (1 view); Complete Time: 12:40 snw 02/19 11:03 Order name: EKG; Complete Time: 11:04 snw 02/19 11:03 Order name: Cardiac monitoring; Complete Time: 11:41 snw 02/19 11:03 Order name: EKG - Nurse/Tech; Complete Time: 11:41 snw 02/19 11:03 Order name: IV Saline Lock; Complete Time: 11:41 snw 02/19 11:03 Order name: Labs collected and sent; Complete Time: 11:41 w 02/19 11:03 Order name: O2 Per Protocol; Complete Time: 11:42 w 02/19 11:03 Order name: O2 Sat Monitoring; Complete Time: 11:41 w 02/19 11:03 Order name: CT Head Brain wo Cont; Complete Time: 11:59 snw 02/19 11:13 Order name: CT Abd/Pelvis - IV Contrast Only; Complete Time: 12:02 w 02/19 12:00 Order name: Misc. Order: please document vs; Complete Time: 12:08 snw 02/19 19:16 Order name: ABO/RH no charge; Complete Time: 19:19 EDMS EC:17 Rate is 93 beats/min. Rhythm is regular. QRS interval is prolonged. Clinical snw impression: Left BBB, calling for old ECG. Administered Medications: 11:45 Drug: morphine 2 mg Route: IVP; Infused Over: 4 mins; Site: left antecubital; bp 15:13 Follow up: Response: No adverse reaction bp 12:15 Drug: Cipro (ciprofloxacin) 400 mg Volume: 200 ml; Route: IVPB; Infused Over: 60 mins; bp Site: left antecubital; 13:48 Follow up: Response: No adverse reaction; IV Status: Completed infusion; IV Intake: db 100ml 15:30 Drug: Dilaudid (HYDROmorphone) 1 mg Route: IVP; Site: left antecubital; bp 18:57 Follow up: Response: No adverse reaction; Pain is decreased bp 19:25 Drug: Dilaudid (HYDROmorphone) 1 mg Route: IVP; Site: right hand; pf1 20:20 Follow up: Response: No adverse reaction; Pain is unchanged, physician notified; RASS: pf1 Alert and Calm (0) Disposition: 16:15 Co-signature as Attending Physician, Sp JONES was immediately available on-site ms3 in the Emergency Department for consultation in the care of the patient. Disposition Summary: 02/19/22 18:32 Transfer Ordered Transfer Location: [facility] snw Reason: Specialty snw Condition: Stable snw Problem: an acute exacerbation snw Symptoms: are unchanged snw [facility]ing Phys[facility]02[facility]19[facility]22 20:48[facility] pf1 Diagnosis - Left sided colitis with rectal bleeding snw - Chronic thyroiditis with transient thyrotoxicosis snw - Essential (primary) hypertension snw Forms: - Medication Reconciliation Form snw - SBAR form snw Critical care time excluding procedures: 17:37 Critical care time: Bedside Care: 5 minutes, Consultation: 25 minutes, Family snw Intervention: 10 minutes. Total time: 40 minutes Signatures: Dispatcher [employer] EDMS Rosalind Uribe, SHELF FILLER-C SHELF FILLER-Csnw Chris Schreiber, RN RN bp Luisa Ruiz Marcus, DO DO ms3 Jennifer leiva RN RN pf1 Sun Teixeira RN db Corrections: (The following items were deleted from the chart) 18:30 17:32 Special discussion: need for transfer as no GI available for admission to [facility]. snw Discussed case with Dr. Kasper, Hospitalist, at [facility]. She kindly accepts pt in transfer to the IMU. snw 18:32 18:32 Dr. Faisal sheth snw 18:32 18:32 Dr. Faisal sheth snw 18:34 18:32 Dr. Faisal sheth eb 20:48 18:34 [facility]
[2022-02-19 21:25] VITALS: BP 187/82; TEMP 98.9; O2SAT 94
--- NOTE | 2022-02-20 17:40 | EKG ---
Test Date: 2022-02-19 Test Time: 11:14:12 [employer] Installation Manager: ADRIA MEASUREMENT RESULTS: Intervals: Rate: 93 TX: 160 QRSD: 170 QT: 422 QTc: 524 [place]: P: 50 TX: 160 QRS: 44 T: -87 INTERPRETIVE STATEMENTS: Normal sinus rhythm Left bundle branch block Abnormal ECG Compared to ECG 09/30/2021 14:35:19 No significant changes Electronically Signed On 02-20-22 17:39:04 MANAGER MARKET DEVELOPMENT by Florian Morris
== END 2022-02-19 20:48 | disposition short-term general hospital (02) ==
LOC: ER 10:50
DX: K51.511 Left sided colitis with rectal bleeding (principal); E06.2 Chronic thyroiditis with transient thyrotoxicosis; I10 Essential (primary) hypertension; E11.9 Type 2 diabetes mellitus without complications; Z79.4 Long term (current) use of insulin; I50.9 Heart failure, unspecified; J44.9 Chronic obstructive pulmonary disease, unspecified; Z88.8 Allergy status to other drugs, medicaments and biological substances; Z20.822 Contact with and (suspected) exposure to COVID-19
CPT/HCPCS: 93005; 85025; 80048; 36415; 86900; 83735; 86850; 85610; 82565; 86901; 80076; 83605; 84443; 85018; 84484; 84439; 83880; 70450; 74177; 71045; 99285; 87811; Q9967; J2270; J1170 ×2; J0744

== ENCOUNTER 2022-03-23 11:25 | Emergency (ER) | payer OTHER ==
--- OUTSIDE RECORDS SUMMARY | 2022-03-23 11:39 | XMS REPORT | Continuity of Care Document ---
:1950 Author Organization [facility] t Address [address] [place] [address] Care Team Providers Name Role Phone Denis Campos MD Primary Care Physician Yudy Olvera MD Attending Clinician [phone] Gulshan Holly MD Attending Clinician YUDY OLVERA Attending Clinician Unavailable EFRAÍN CARTER Attending Clinician Unavailable EFRAÍN CARTER Attending Clinician Unavailable Efraín Carter MD Attending Clinician Kt Holly Attending Clinician Unavailable ALLA BREWER Attending Clinician Unavailable Doctor Unassigned, [place] Attending Clinician Unavailable KRISTEL JURADO Attending Clinician Unavailable Shanae Saunders MD Attending Clinician TAMARA BOWERS Attending Clinician Unavailable Tamara Gary Attending Clinician KIRAN, WONDIFUL A Attending Clinician Unavailable YUDY OLVERA Admitting Clinician Unavailable Kt Holly Admitting Clinician Unavailable Payers Payer Name Policy Type Policy Number Effective Date Expiration Date Zander alarcon [facility] MEDICAREDIRECT [id number] 2021 PFFS 00:00:00 [facility] [id number] 2021 [facility] PPO 00:00:00 [place] [id number] 2021 00:00:00 Problems Condition Condition Condition Status Onset Resolution Last Treating Co mments Source Name Details Category Date Date Treatment Clinician Date Colitis Colitis Disease [facility] Gastrointe Gastrointe Disease Active [facility] hemorrhage hemorrhage 00:00: Me dical associated associated 00 Ce nter with with anorectal anorectal source source Grief Grief Disease Active [facility] 3-06 ity of 00:00: [address] Reactive Reactive Disease Active Unive rs depression depression 3-06 it y of 00:00: [address] Morbid Morbid Disease Active Methodi obesity obesity 3-30 st with BMI with BMI 00:00: Hospit [facility] of of 00 l 40.0-44.9, 40.0-44.9, adult adult Diverticul Diverticul Disease Active M ethodi itis of itis of 3-29 st intestine intestine 00:00: [facility] 00 l No known No known Disease Unive rs active active ity of problems problems [facility] Allergies, Adverse Reactions, Alerts Allergy Allergy Status Severity Reaction(s) Onset Inactive Treating Comm ents Source Name Type Date Date Clinician Sumatrip Propensi Active [facility] adverse 00:00: Medical reaction 00 Center s SUMATRIP Allergy Active [facility] 00 Center No Known DA Active [facility]17 [place] [facility] 00[facility]: [facility] 00 are Medical Center NO KNOWN Drug Active Univers ALLERGIE Class ity of S [facility] Family History Family Member Diagnosis Comments Start Date Stop Date Source Natural daughter Anesthesia problems [facility] Natural daughter Diabetes [facility] Natural daughter [facility] Natural father Arthritis [facility] Natural father Diabetes [facility] Natural father Hypertension [facility] Natural father Stroke [facility] Social History Social Habit Start Date Stop Date Quantity Comments Source History [facility] Exposure to 2022-02-10 2022-02-[address] [facility] SARS-CoV-2 (event) 00:00:00 01:40:00 Medica l Center History [facility] 2022-02-20 2022-02-[address] [facility] Housing Places 00:00:00 00:00:00 Medical Ce nter Lived History [facility] 2022-02-20 2022-02-[address] [facility] Housing Homeless 00:00:00 00:00:00 Medical Center Last Year Tobacco use and 2022-02-20 2022-02-[address] [facility] exposure 00:00:00 00:00:00 Medical Center History [facility] 2022-02-20 2022-02-[address] [facility] Transport Med 00:00:00 00:00:[address] [facility] 2022-02-20 2022-02-[address] [facility] Housing Unable to 00:00:00 00:00:00 Medical Center Pay Alcohol intake 2017-06-13 2017-06-13 Current [facility] 00[facility] 00:00:00 non-drinker of Hospital alcohol (finding) Sex Assigned At [address] [facility] 00:00[facility]00 Medical Center Smoking Status Start Date Stop Date Source Never smoker [facility] Medications Ordered Filled Start Stop Current Ordering Indication Dosage Frequency Signature Comments Components Source Medication Medication Date Date Medication? Clinician (SIG) Name Name chlorthalid Yes 25mg QD Take [address] [facility] 1-09 by mouth [facility] (HYGROTON) 13:37: daily. Medic al 25 MG 33 Center tablet doxazosin 2022-0 Yes 4mg Q.5D Take [address] [address] (CARDURA) 4 1-09 by mouth 2 [facility] MG tablet 13:37: (two) Medical 33 times Center daily. doxepin 2022-0 Yes 100mg QD Take 100 [facility] (SINEquan) 1-09 mg by [facility] 100 MG 13:37: mouth Medical capsule 33 nightly. Center gabapentin 2023-0 Yes 300mg Q.5D Take [address] (NEURONTIN) 1-09 mg by [facility] 300 MG 13:37: mouth 2 Medical capsule 33 (two) Center times daily. ALPRAZolam 2023-0 Yes .5mg Take 0.[address] (XANAX) 0.5 1-09 mg by [facility] MG tablet 13:37: mouth 2 Medic al 33 (two) Center times daily as needed for Anxiety. temazepam 2023-0 Yes insomnia 30mg Take [address] (RESTORIL) 1-09 by mouth [facility] 30 mg 13:37: every Medical capsule 33 night as Center needed for Sleep. apixaban 2023-0 Yes 2.5mg Q.5D Take 2.[address] (Eliquis) 1-09 mg by [facility] 2.5 mg Tab 13:37: mouth 2 Medi [place]ie tablet 33 (two) Center times daily. chlorthalid 2023-0 Yes 25mg QD Take [address] [facility] 1-09 by mouth [facility] (HYGROTON) 13:37: daily. Medic al 25 MG 33 Center tablet doxazosin 3-0 Yes 4mg Q.5D Take [address] [address] (CARDURA) 4 1-09 by mouth 2 Patricia k[facility] MG tablet 13:37: (two) Medical 33 times Center daily. doxepin 2023-0 Yes 100mg QD Take 100 [facility] (SINEquan) 1-09 mg by [facility] 100 MG 13:37: mouth Medical capsule 33 nightly. Center gabapentin 2023-0 Yes 300mg Q.5D Take [address] (NEURONTIN) 1-09 mg by [facility] 300 MG 13:37: mouth 2 Medical capsule 33 (two) Center times daily. ALPRAZolam 2023-0 Yes .5mg Take 0.[address] (XANAX) 0.5 1-09 mg by [facility]ukes MG tablet 13:37: mouth 2 Medic al 33 (two) Center times daily as needed for Anxiety. temazepam 2023-0 Yes insomnia 30mg Take [address] (RESTORIL) 1-09 by mouth [facility] 30 mg 13:37: every Medical capsule 33 night as Center needed for Sleep. apixaban 2023-0 Yes 2.5mg Q.5D Take 2.[address] (Eliquis) 1-09 mg by [facility]ukes 2.5 mg Tab 13:37: mouth 2 Medi [place]ie tablet 33 (two) Center times daily. ciprofloxac 0 2022- Yes 500mg Q.5D Take [address] in HCl 02-22 tablet [facility] (CIPRO) 500 00:00: 23:59 (500 mg Me dical MG tablet 00 :00 total) by Cente r mouth 2 (two) times daily for 7 days. metroNIDAZO 2022- Yes 500mg [id number] Take [address] [facility] (FLAGYL) 02-22 [id number] tablet [facility] 500 MG 00:00: 23:59 3D (500 mg Medical tablet 00 :00 total) by Center mouth 3 (three) times daily for 7 days. ciprofloxac 2022-0 2022- No 500mg Q.5D Take [address] in HCl 02-22 tablet [facility] (CIPRO) 500 00:00: 23:59 (500 mg Me dical MG tablet 00 :00 total) by Cente r mouth 2 (two) times daily for 7 days. metroNIDAZO 2022-0 2022- No 500mg [id number] Take [address] [address] [facility] (FLAGYL) 02-22 [id number] tablet [facility] 500 MG 00:00: 23:59 3D (500 mg Medical tablet 00 :00 total) by Center mouth 3 (three) times daily for 7 days. AMITRIPTYLI Yes TAKE 1 Univ ers NE 25 mg 5-05 TABLET BY ity of tablet 00:00: MOUTH 00 EVERYDAY Medical AT BEDTIME Branch AMITRIPTYLI Yes TAKE 1 Univ ers NE 25 mg 5-05 TABLET BY ity of tablet 00:00: MOUTH 00 EVERYDAY Medical AT BEDTIME Branch AMITRIPTYLI Yes TAKE 1 Univ ers NE 25 mg 5-05 TABLET BY ity of tablet 00:00: MOUTH 00 EVERYDAY Medical AT BEDTIME Branch butorphanol 2020- Yes 2745 INHALE ONE Univers 10 mg/mL 3-05 SPRAY IN ity of nasal spray 00:00: ONE NOSTRIL Medical EVERY 8 Branch HOURS NEEDED FOR HEADACHE Indication s: chronic pain, headache butorphanol 2021-0 Yes 2745 INHALE ONE Univers 10 mg/mL 3-05 SPRAY IN ity of nasal spray 00:00: ONE [place] NOSTRIL Medical EVERY 8 Branch HOURS NEEDED FOR HEADACHE Indication s: chronic pain, headache butorphanol 2021-0 Yes 2745 INHALE ONE Univers 10 mg/mL 3-05 SPRAY IN ity of nasal spray 00:00: ONE [place] NOSTRIL Medical EVERY 8 Branch HOURS NEEDED FOR HEADACHE Indication s: chronic pain, headache butorphanol 2021-0 Yes 2745 INHALE ONE Univers 10 mg/mL 3-05 SPRAY IN ity of nasal spray 00:00: ONE [place] NOSTRIL Medical EVERY 8 Branch HOURS NEEDED FOR HEADACHE Indication s: chronic pain, headache butorphanol 2021-0 Yes 2745 USE 1 Unive rs 10 mg/mL 2-05 SPRAY IN ity of nasal spray 00:00: ONE [place] NOSTRIL Medical EVERY 8 Branch HOURS NEEDED FOR HEADACHE Indication s: acute pain, chronic pain, Headache butorphanol 2021-0 Yes 2745 USE 1 Unive rs 10 mg/mL 2-05 SPRAY IN ity of nasal spray 00:00: ONE [place] NOSTRIL Medical EVERY 8 Branch HOURS NEEDED FOR HEADACHE Indication s: acute pain, chronic pain, Headache butorphanol 2021-0 Yes 2745 USE 1 Unive rs 10 mg/mL 2-05 SPRAY IN ity of nasal spray 00:00: ONE [place] NOSTRIL Medical EVERY 8 Branch HOURS NEEDED FOR HEADACHE Indication s: acute pain, chronic pain, Headache butorphanol 2021-0 Yes 2745 USE 1 Unive rs 10 mg/mL 2-05 SPRAY IN ity of nasal spray 00:00: ONE [place] NOSTRIL Medical EVERY 8 Branch HOURS NEEDED FOR HEADACHE Indication s: acute pain, chronic pain, Headache butorphanol 2021-0 Yes 2745 USE 1 Unive rs 10 mg/mL 2-05 SPRAY IN ity of nasal spray 00:00: ONE [place] NOSTRIL Medical EVERY 8 Branch HOURS NEEDED FOR HEADACHE Indication s: acute pain, chronic pain, Headache butorphanol 2021-0 Yes 2745 USE 1 Unive rs 10 mg/mL 2-05 SPRAY IN ity of nasal spray 00:00: ONE [place] NOSTRIL Medical EVERY 8 Branch HOURS NEEDED FOR HEADACHE Indication s: acute pain, chronic pain, Headache butorphanol 2021-0 Yes 2745 USE 1 Unive rs 10 mg/mL 2-05 SPRAY IN ity of nasal spray 00:00: ONE [place] NOSTRIL Medical EVERY 8 Branch HOURS NEEDED FOR HEADACHE Indication s: acute pain, chronic pain, Headache butorphanol 2021-0 Yes 2745 USE 1 Unive rs 10 mg/mL 2-05 SPRAY IN ity of nasal spray 00:00: ONE [place] NOSTRIL Medical EVERY 8 Branch HOURS NEEDED FOR HEADACHE Indication s: acute pain, chronic pain, Headache butorphanol 2021-0 Yes 2745 USE 1 Unive rs 10 mg/mL 2-05 SPRAY IN ity of nasal spray 00:00: ONE [place] NOSTRIL Medical EVERY 8 Branch HOURS NEEDED FOR HEADACHE Indication s: acute pain, chronic pain, Headache butorphanol 2021-0 Yes 2745 USE 1 Unive rs 10 mg/mL 2-05 SPRAY IN ity of nasal spray 00:00: ONE [place] NOSTRIL Medical EVERY 8 Branch HOURS NEEDED FOR HEADACHE Indication s: acute pain, chronic pain, Headache butorphanol 2021-0 Yes 2745 USE 1 Unive rs 10 mg/mL 2-05 SPRAY IN ity of nasal spray 00:00: ONE [place] [id number] NOSTRIL Medical EVERY 8 Branch HOURS NEEDED FOR HEADACHE Indication s: acute pain, chronic pain, Headache butorphanol 2021-0 2021- No 2745 USE 1 Univ ers 10 mg/mL 2-05 03-05 SPRAY IN ity of nasal spray 00:00: 00:00 [facility] 00 :00 NOSTRIL Medical EVERY 8 Branch HOURS NEEDED FOR HEADACHE Indication s: acute pain, chronic pain, Headache butorphanol 2021-0 2021- No 2745 USE 1 Univ ers 10 mg/mL 2-05 03-05 SPRAY IN ity of nasal spray 00:00: 00:00 [facility] 00 :00 NOSTRIL Medical EVERY 8 Branch HOURS NEEDED FOR HEADACHE Indication s: acute pain, chronic pain, Headache butorphanol 2021-0 Yes 2745 USE 1 Unive rs 10 mg/mL 1-05 SPRAY IN ity of nasal spray 00:00: ONE [place] [id number] NOSTRIL Medical EVERY 8 Branch HOURS NEEDED FOR HEADACHE Indication s: acute pain, chronic pain, Headache butorphanol 0 Yes 2745 USE 1 Unive rs 10 mg/mL 1-05 SPRAY IN ity of nasal spray 00:00: ONE [place] NOSTRIL Medical EVERY 8 Branch HOURS NEEDED FOR HEADACHE Indication s: acute pain, chronic pain, Headache butorphanol 0 Yes 2745 USE 1 Unive rs 10 mg/mL 1-05 SPRAY IN ity of nasal spray 00:00: ONE [place] NOSTRIL Medical EVERY 8 Branch HOURS NEEDED FOR HEADACHE Indication s: acute pain, chronic pain, Headache butorphanol 2020-0 202- No 2745 USE 1 Univ ers 10 mg/mL 1-05 02-05 SPRAY IN ity of nasal spray 00:00: 00:00 [facility] 00 :00 NOSTRIL Medical EVERY 8 Branch HOURS NEEDED FOR HEADACHE Indication s: acute pain, chronic pain, Headache butorphanol 2019-02 Yes 2745 USE 1 Unive rs 10 mg/mL 2-07 SPRAY IN ity of nasal spray 00:00: [place] NOSTRIL Medical EVERY 8 Branch HOURS NEEDED FOR HEADACHE Indication s: acute pain, chronic pain, Headache butorphanol 2019-02 Yes 2745 USE 1 Unive rs 10 mg/mL 2-07 SPRAY IN ity of nasal spray 00:00: [place] NOSTRIL Medical EVERY 8 Branch HOURS NEEDED FOR HEADACHE Indication s: acute pain, chronic pain, Headache butorphanol 2019-2020- No 2745 USE 1 Univ ers 10 mg/mL 2-07 01-05 SPRAY IN ity of nasal spray 00:00: 00:00 [facility] 00 :00 NOSTRIL Medical EVERY 8 Branch HOURS NEEDED FOR HEADACHE Indication s: acute pain, chronic pain, Headache AMITRIPTYLI 2020- Yes TAKE 1 Univ ers NE 25 mg 1-10 TABLET BY ity of tablet 00:00: MOUTH [place] EVERYDAY Medical AT BEDTIME Branch AMITRIPTYLI 2020-1 Yes TAKE 1 Univ ers NE 25 mg 1-10 TABLET BY ity of tablet 00:00: MOUTH [place] 00 EVERYDAY Medical AT BEDTIME Branch AMITRIPTYLI 2020- Yes TAKE 1 Univ ers NE 25 mg 1-10 TABLET BY ity of tablet 00:00: MOUTH [place] EVERYDAY Medical AT BEDTIME Branch AMITRIPTYLI 2020- [...] 1-10 TABLET BY ity of tablet 00:00: [facility] 00 EVERYDAY Medical AT BEDTIME Branch AMITRIPTYLI 2019-02 Yes TAKE 1 Univ ers NE 25 mg 1-10 TABLET BY ity of tablet 00:00: [facility] EVERYDAY Medical AT BEDTIME Branch AMITRIPTYLI 2019-02 Yes TAKE 1 Univ ers NE 25 mg 1-10 TABLET BY ity of tablet 00:00: [facility] 00 EVERYDAY Medical AT BEDTIME Branch AMITRIPTYLI 2019-02 Yes TAKE 1 Univ ers NE 25 mg 1-10 TABLET BY ity of tablet 00:00: [facility] EVERYDAY Medical AT BEDTIME Branch AMITRIPTYLI 2019-02- No TAKE 1 Uni vers NE 25 mg 1-10 05-05 TABLET BY ity o f tablet 00:00: 00:00 [facility] 00 :00 EVERYDAY Medical AT BEDTIME Branch butorphanol 2019-02 Yes 2745 USE 1 Unive rs 10 mg/mL 1-09 SPRAY IN ity of nasal spray 00:00: [place] NOSTRIL Medical EVERY 8 Branch HOURS NEEDED FOR HEADACHE Indication s: chronic pain, Headache butorphanol 2019-02 Yes 2745 USE 1 Unive rs 10 mg/mL 1-09 SPRAY IN ity of nasal spray 00:00: [place] NOSTRIL Medical EVERY 8 Branch HOURS NEEDED FOR HEADACHE Indication s: chronic pain, Headache butorphanol 2019-02 Yes 2745 USE 1 Unive rs 10 mg/mL 1-09 SPRAY IN ity of nasal spray 00:00: [place] NOSTRIL Medical EVERY 8 Branch HOURS NEEDED FOR HEADACHE Indication s: chronic pain, Headache butorphanol 2019-02 2020- No 2745 USE 1 Univ ers 10 mg/mL 1-09 12-07 SPRAY IN ity of nasal spray 00:00: 00:00 [facility] 00 :00 NOSTRIL Medical EVERY 8 Branch HOURS NEEDED FOR HEADACHE Indication s: chronic pain, Headache butorphanol 2019-02 Yes 2745 USE 1 Unive rs 10 mg/mL 0-09 SPRAY IN ity of nasal spray 00:00: [place] NOSTRIL Medical EVERY 8 Branch HOURS NEEDED FOR HEADACHE Indication s: chronic pain, Headache butorphanol 2020-1 Yes 2745 USE 1 Unive rs 10 mg/mL 0-09 SPRAY IN ity of nasal spray 00:00: ONE [place] NOSTRIL Medical EVERY 8 Branch HOURS NEEDED FOR HEADACHE Indication s: chronic pain, Headache butorphanol 2020-1 2020- No 2745 USE 1 Univ ers 10 mg/mL 0-09 11-09 SPRAY IN ity of nasal spray 00:00: 00:00 ONE [place] 00 :00 NOSTRIL Medical EVERY 8 Branch HOURS NEEDED FOR HEADACHE Indication s: chronic pain, Headache butorphanol 2020-0 Yes 2745 USE 1 Unive rs 10 mg/mL 9-11 SPRAY IN ity of nasal spray 00:00: ONE [place] NOSTRIL Medical EVERY 8 Branch HOURS NEEDED FOR HEADACHE Indication s: chronic pain, Headache butorphanol 2020-0 Yes 2745 USE 1 Unive rs 10 mg/mL 9-11 SPRAY IN ity of nasal spray 00:00: ONE [place] [id number] NOSTRIL Medical EVERY 8 Branch HOURS NEEDED FOR HEADACHE Indication s: chronic pain, Headache butorphanol 2020-0 2020- No 2745 USE 1 Univ ers 10 mg/mL 9-11 10-09 SPRAY IN ity of nasal spray 00:00: 00:00 ONE [place] 00 :00 NOSTRIL Medical EVERY 8 Branch HOURS NEEDED FOR HEADACHE Indication s: chronic pain, Headache butorphanol 2020-0 Yes USE 1 Unive rs 10 mg/mL 8-14 SPRAY IN ity of nasal spray 00:00: ONE [place] [id number] NOSTRIL Medical EVERY 8 Branch HOURS NEEDED FOR HEADACHE Indication s: Headache butorphanol 2020-0 Yes 2745 USE 1 Unive rs 10 mg/mL 8-14 SPRAY IN ity of nasal spray 00:00: ONE [place] [id number] NOSTRIL Medical EVERY 8 Branch HOURS NEEDED FOR HEADACHE Indication s: chronic pain, Headache butorphanol 2020-0 Yes 2745 USE 1 Unive rs 10 mg/mL 8-14 SPRAY IN ity of nasal spray 00:00: ONE [place] [id number] NOSTRIL Medical EVERY 8 Branch HOURS NEEDED FOR HEADACHE Indication s: chronic pain, Headache butorphanol 2020-0 2020- No 2745 USE 1 Univ ers 10 mg/mL 8-14 09-11 SPRAY IN ity of nasal spray 00:00: 00:00 [facility] 00 :00 NOSTRIL Medical EVERY 8 Branch HOURS NEEDED FOR HEADACHE Indication s: chronic pain, Headache butorphanol 2020-0 2020- No USE 1 Univ ers 10 mg/mL 8-14 08-14 SPRAY IN ity of nasal spray 00:00: 00:00 ONE [place] 00 :00 NOSTRIL Medical EVERY 8 Branch HOURS NEEDED FOR HEADACHE Indication s: Headache butorphanol 2020-0 Yes USE 1 Unive rs 10 mg/mL 7-14 SPRAY IN ity of nasal spray 00:00: ONE [place] 00 NOSTRIL Medical EVERY 8 Branch HOURS NEEDED FOR HEADACHE Indication s: Headache butorphanol 2020-0 2020- No USE 1 Univ ers 10 mg/mL 7-14 08-14 SPRAY IN ity of nasal spray 00:00: 00:00 ONE [place] 00 :00 NOSTRIL Medical EVERY 8 Branch HOURS NEEDED FOR HEADACHE Indication s: Headache butorphanol 2020-0 2020- No USE 1 Univ ers 10 mg/mL 6-09 07-14 SPRAY IN ity of nasal spray 00:00: 00:00 ONE [place] 00 :00 NOSTRIL Medical EVERY 8 Branch HOURS NEEDED FOR HEADACHE butorphanol 2020-0 Yes USE 1 Unive rs 10 mg/mL 6-04 SPRAY IN ity of nasal spray 00:00: ONE [place] [id number] NOSTRIL Medical EVERY 8 Branch HOURS NEEDED FOR HEADACHE butorphanol 2020-0 Yes USE 1 Unive rs 10 mg/mL 6-04 SPRAY IN ity of nasal spray 00:00: ONE [place] [id number] NOSTRIL Medical EVERY 8 Branch HOURS NEEDED FOR HEADACHE butorphanol 2020-0 Yes USE 1 Unive rs 10 mg/mL 6-04 SPRAY IN ity of nasal spray 00:00: ONE [place] [id number] NOSTRIL Medical EVERY 8 Branch HOURS NEEDED FOR HEADACHE butorphanol 2020-0 Yes USE 1 Unive rs 10 mg/mL 6-04 SPRAY IN ity of nasal spray 00:00: ONE [place] [id number] NOSTRIL Medical EVERY 8 Branch HOURS NEEDED FOR HEADACHE butorphanol 2020-0 Yes USE 1 Unive rs 10 mg/mL 6-04 SPRAY IN ity of nasal spray 00:00: ONE [place] [id number] NOSTRIL Medical EVERY 8 Branch HOURS NEEDED FOR HEADACHE butorphanol 2020-0 Yes USE 1 Unive rs 10 mg/mL 6-04 SPRAY IN ity of nasal spray 00:00: ONE [place] [id number] NOSTRIL Medical EVERY 8 Branch HOURS NEEDED FOR HEADACHE butorphanol 2020-0 Yes USE 1 Unive rs 10 mg/mL 6-04 SPRAY IN ity of nasal spray 00:00: ONE [place] 00 NOSTRIL Medical EVERY 8 Branch HOURS NEEDED FOR HEADACHE SERTRALINE 2020-0 Yes [id number] TAKE 1 U nivers 25 mg 5-21 TABLET BY ity of tablet 00:00: [facility] EVERY DAY Medical Branch SERTRALINE 2020-0 Yes [id number] TAKE 1 U nivers 25 mg 5-21 TABLET BY ity of tablet 00:00: [facility] EVERY DAY Medical Branch SERTRALINE 2020-0 Yes [id number] TAKE 1 U nivers 25 mg 5-21 TABLET BY ity of tablet 00:00: [facility] EVERY DAY Medical Branch SERTRALINE 2020-0 Yes [id number] TAKE 1 U nivers 25 mg 5-21 TABLET BY ity of tablet 00:00: [facility] EVERY DAY Medical Branch SERTRALINE 2020-0 Yes [id number] TAKE 1 U nivers 25 mg 5-21 TABLET BY ity of tablet 00:00: [facility] EVERY DAY Medical Branch SERTRALINE 2020-0 Yes [id number] TAKE 1 U nivers 25 mg 5-21 TABLET BY ity of tablet 00:00: [facility] EVERY DAY Medical Branch SERTRALINE 2020-0 Yes [id number] TAKE 1 U nivers 25 mg 5-21 TABLET BY ity of tablet 00:00: [facility] EVERY DAY Medical Branch SERTRALINE 2020-0 Yes [id number] TAKE 1 U nivers 25 mg 5-21 TABLET BY ity of tablet 00:00: [facility] EVERY DAY Medical Branch SERTRALINE 2020-0 Yes [id number] TAKE 1 U nivers 25 mg 5-21 TABLET BY ity of tablet 00:00: [facility] EVERY DAY Medical Branch SERTRALINE 2020-0 Yes [id number] TAKE 1 U nivers 25 mg 5-21 TABLET BY ity of tablet 00:00: [facility] EVERY DAY Medical Branch SERTRALINE 2020-0 Yes [id number] TAKE 1 U nivers 25 mg 5-21 TABLET BY ity of tablet 00:00: [facility] EVERY DAY Medical Branch SERTRALINE 2020-0 Yes [id number] TAKE 1 U nivers 25 mg 5-21 TABLET BY ity of tablet 00:00: [facility] EVERY DAY Medical Branch SERTRALINE 2020-0 Yes [id number] TAKE 1 U nivers 25 mg 5-21 TABLET BY ity of tablet 00:00: MOUTH [place] 00 EVERY DAY Medical Branch SERTRALINE 2020-0 Yes [id number] TAKE 1 U nivers 25 mg 5-21 TABLET BY ity of tablet 00:00: MOUTH [place] EVERY DAY Medical Branch SERTRALINE 2020-0 Yes [id number] TAKE 1 U nivers 25 mg 5-21 TABLET BY ity of tablet 00:00: [facility] EVERY DAY Medical Branch SERTRALINE 2020-0 Yes [id number] TAKE 1 U nivers 25 mg 5-21 TABLET BY ity of tablet 00:00: MOUTH [place] EVERY DAY Medical Branch SERTRALINE 2020-0 Yes [id number] TAKE 1 U nivers 25 mg 5-21 TABLET BY ity of tablet 00:00: [facility] EVERY DAY Medical Branch SERTRALINE 2020-0 Yes [id number] TAKE 1 U nivers 25 mg 5-21 TABLET BY ity of tablet 00:00: [facility] EVERY DAY Medical Branch SERTRALINE 2020-0 Yes [id number] TAKE 1 U nivers 25 mg 5-21 TABLET BY ity of tablet 00:00: [facility] 00 EVERY DAY Medical Branch SERTRALINE 2020-0 Yes [id number] TAKE 1 U nivers 25 mg 5-21 TABLET BY ity of tablet 00:00: [facility] EVERY DAY Medical Branch SERTRALINE 2020-0 Yes [id number] TAKE 1 U nivers 25 mg 5-21 TABLET BY ity of tablet 00:00: [facility] EVERY DAY Medical Branch SERTRALINE 2020-0 Yes [id number] TAKE 1 U nivers 25 mg 5-21 TABLET BY ity of tablet 00:00: [facility] 00 EVERY DAY Medical Branch SERTRALINE 2020-0 Yes [id number] TAKE 1 U nivers 25 mg 5-21 TABLET BY ity of tablet 00:00: [facility] EVERY DAY Medical Branch SERTRALINE 2020-0 Yes [id number] TAKE 1 U nivers 25 mg 5-21 TABLET BY ity of tablet 00:00: [facility] 00 EVERY DAY Medical Branch SERTRALINE 2020-0 Yes [id number] TAKE 1 U nivers 25 mg 5-21 TABLET BY ity of tablet 00:00: [facility] EVERY DAY Medical Branch SERTRALINE 2020-0 Yes [id number] TAKE 1 U nivers 25 mg 5-21 TABLET BY ity of tablet 00:00: MOUTH [place] EVERY DAY Medical Branch SERTRALINE 2020-0 Yes [id number] TAKE 1 U nivers 25 mg 5-21 TABLET BY ity of tablet 00:00: [facility] EVERY DAY Medical Branch SERTRALINE 2020-0 Yes [id number] TAKE 1 U nivers 25 mg 5-21 TABLET BY ity of tablet 00:00: [facility] EVERY DAY Medical Branch SERTRALINE 2020-0 Yes [id number] TAKE 1 U nivers 25 mg 5-21 TABLET BY ity of tablet 00:00: MOUTH [place] EVERY DAY Medical Branch SERTRALINE 2020-0 Yes [id number] TAKE 1 U nivers 25 mg 5-21 TABLET BY ity of tablet 00:00: [facility] EVERY DAY Medical Branch SERTRALINE 2020-0 Yes [id number] TAKE 1 U nivers 25 mg 5-21 TABLET BY ity of tablet 00:00: [facility] EVERY DAY Medical Branch SERTRALINE 2020-0 Yes [id number] TAKE 1 U nivers 25 mg 5-21 TABLET BY ity of tablet 00:00: [facility] EVERY DAY Medical Branch SERTRALINE 2020-0 Yes [id number] TAKE 1 U nivers 25 mg 5-21 TABLET BY ity of tablet 00:00: [facility] EVERY DAY Medical Branch SERTRALINE 2020-0 Yes [id number] TAKE 1 U nivers 25 mg 5-21 TABLET BY ity of tablet 00:00: [facility] EVERY DAY Medical Branch SERTRALINE 2020-0 Yes [id number] TAKE 1 U nivers 25 mg 5-21 TABLET BY ity of tablet 00:00: [facility] EVERY DAY Medical Branch SERTRALINE 2020-0 Yes [id number] TAKE 1 U nivers 25 mg 5-21 TABLET BY ity of tablet 00:00: [facility] EVERY DAY Medical Branch SERTRALINE 2020-0 Yes [id number] TAKE 1 U nivers 25 mg 5-21 TABLET BY ity of tablet 00:00: [facility] EVERY DAY Medical Branch SERTRALINE 2020-0 Yes [id number] TAKE 1 U nivers 25 mg 5-21 TABLET BY ity of tablet 00:00: [facility] EVERY DAY Medical Branch SERTRALINE 2020-0 Yes [id number] TAKE 1 U nivers 25 mg 5-21 TABLET BY [facility] of tablet 00:00: MOUTH [place] EVERY DAY Medical Branch SERTRALINE 2020-0 Yes [id number] TAKE 1 [facility] 25 mg 5-21 TABLET BY [facility] of tablet 00:00: MOUTH [place] EVERY DAY Medical Branch SERTRALINE 2020-0 Yes [id number] TAKE 1 [facility] 25 mg 5-21 TABLET BY [facility] of tablet 00:00: MOUTH [place] EVERY DAY Medical Branch SERTRALINE 2020-0 Yes [id number] TAKE 1 [facility] 25 mg 5-21 TABLET BY [facility] of tablet 00:00: MOUTH [place] EVERY DAY Medical Branch SERTRALINE 2020-0 Yes [id number] TAKE 1 [facility] 25 mg 5-21 TABLET BY ity of tablet 00:00: MOUTH [place] EVERY DAY Medical Branch butorphanol 2020-0 Yes USE 1 [facility] 10 mg/mL 5-05 SPRAY IN ity of nasal spray 00:00: ONE [place] NOSTRIL Medical EVERY 8 Branch HOURS NEEDED FOR HEADACHE amitriptyli 2020-0 Yes 25mg Take 1 [facility] ne 25 mg 5-05 tablet by [facility] of tablet 00:00: mouth at [place] [address] bedtime. Medical Branch butorphanol 2020-0 Yes USE 1 [facility] 10 mg/mL 5-05 SPRAY IN ity of nasal spray 00:00: ONE [place] NOSTRIL Medical EVERY 8 Branch HOURS NEEDED FOR HEADACHE amitriptyli 2020-0 Yes 25mg Take 1 [facility] ne 25 mg 5-05 tablet by [facility] of tablet 00:00: mouth at [place] [address] bedtime. Medical Branch butorphanol 2020-0 Yes USE 1 [facility] 10 mg/mL 5-05 SPRAY IN ity of nasal spray 00:00: ONE [place] NOSTRIL Medical EVERY 8 Branch HOURS NEEDED FOR HEADACHE amitriptyli 2020-0 Yes 25mg Take 1 [facility] ne 25 mg 5-05 tablet by [facility] of tablet 00:00: mouth at [place] [address] bedtime. Medical Branch butorphanol 2020-0 Yes USE 1 [facility] 10 mg/mL 5-05 SPRAY IN ity of nasal spray 00:00: ONE [place] NOSTRIL Medical EVERY 8 Branch HOURS NEEDED FOR HEADACHE amitriptyli 2020-0 Yes 25mg Take 1 [facility] ne 25 mg 5-05 tablet by [facility] of tablet 00:00: mouth at [place] [address] bedtime. Medical Branch butorphanol 2020-0 Yes USE 1 [facility] 10 mg/mL 5-05 SPRAY IN ity of nasal spray 00:00: ONE [place] [address] NOSTRIL Medical EVERY 8 Branch HOURS NEEDED FOR HEADACHE amitriptyli 2020-0 Yes 25mg Take 1 [facility] ne 25 mg 5-05 tablet by [facility] of tablet 00:00: mouth at [place] [address] bedtime. Medical Branch amitriptyli 2020-0 Yes 25mg Take 1 [facility] ne 25 mg 5-05 tablet by [facility] of tablet 00:00: mouth at [place] [address] bedtime. Medical Branch amitriptyli 2020-0 Yes 25mg Take 1 [facility] 25 mg 5-05 tablet by [facility] of tablet 00:00: mouth at [place] [address] bedtime. Medical Branch amitriptyli 2020-0 Yes 25mg Take 1 [facility] 25 mg 5-05 tablet by [facility] of tablet 00:00: mouth at [place] [address] bedtime. Medical Branch amitriptyli 2020-0 Yes 25mg Take 1 [facility] 25 mg 5-05 tablet by [facility] of tablet 00:00: mouth at [place] [address] bedtime. Medical Branch amitriptyli 2020-0 Yes 25mg Take 1 [facility] 25 mg 5-05 tablet by [facility] of tablet 00:00: mouth at [place] [address] bedtime. Medical Branch amitriptyli 2020-0 Yes 25mg Take 1 [facility] 25 mg 5-05 tablet by [facility] of tablet 00:00: mouth at [place] [address] bedtime. Medical Branch amitriptyli 2020-0 Yes 25mg Take 1 [facility] 25 mg 5-05 tablet by [facility] of tablet 00:00: mouth at [place] [address] bedtime. Medical Branch amitriptyli 2020-0 Yes 25mg Take 1 [facility] 25 mg 5-05 tablet by [facility] of tablet 00:00: mouth at [place] [address] bedtime. Medical Branch amitriptyli 2020-0 Yes 25mg Take 1 [facility] 25 mg 5-05 tablet by [facility] of tablet 00:00: mouth at [place] [address] bedtime. Medical Branch amitriptyli 2020-0 Yes 25mg Take 1 [facility] 25 mg 5-05 tablet by [facility] of tablet 00:00: mouth at [place] [address] bedtime. Medical Branch amitriptyli 2020-0 Yes 25mg Take 1 [facility] 25 mg 5-05 tablet by [facility] of tablet 00:00: mouth at [place] [address] bedtime. Medical Branch amitriptyli 2020-0 Yes 25mg Take 1 [facility] 25 mg 5-05 tablet by [facility] of tablet 00:00: mouth at [place] [address] bedtime. Medical Branch amitriptyli 2020-0 Yes 25mg Take 1 [facility] 25 mg 5-05 tablet by [facility] of tablet 00:00: mouth at [place] 00 bedtime. Medical Branch amitriptyli 2020-0 Yes 25mg Take 1 [facility] 25 mg 5-05 tablet by [facility] of tablet 00:00: mouth at [place] 00 bedtime. Medical Branch amitriptyli 2020-0 Yes 25mg Take 1 [facility] 25 mg 5-05 tablet by [facility] of tablet 00:00: mouth at [place] [address] bedtime. Medical Branch amitriptyli 2020-0 Yes 25mg Take 1 [facility] 25 mg 5-05 tablet by [facility] of tablet 00:00: mouth at [place] [address] bedtime. Medical Branch amitriptyli 2020-0 Yes 25mg Take 1 [facility] 25 mg 5-05 tablet by [facility] of tablet 00:00: mouth at [place] [address] bedtime. Medical Branch amitriptyli 2020-0 2020- No 25mg Take 1 [facility] ne 25 mg 5-05 11-10 tablet by ity o f tablet 00:00: 00:00 mouth at [place] 00 :00 bedtime. Medical Branch butorphanol 2020-0 2020- No USE 1 [facility] ers 10 mg/mL 5-05 06-04 SPRAY IN ity of nasal spray 00:00: 00:00 ONE [place] 00 :00 NOSTRIL Medical EVERY 8 Branch HOURS NEEDED FOR HEADACHE butorphanol 2020-0 2020- No USE 1 [facility] ers 10 mg/mL 5-05 06-04 SPRAY IN ity of nasal spray 00:00: 00:00 ONE [place] 00 :00 NOSTRIL Medical EVERY 8 Branch HOURS NEEDED FOR HEADACHE AMITRIPTYLI 2020-0 Yes TAKE 1 [facility] NE 25 mg 4-14 TABLET BY ity of tablet 00:00: MOUTH [place] 00 EVERYDAY Medical AT BEDTIME Branch AMITRIPTYLI [...] Medical AT BEDTIME Branch sulfamethox 2020-0 Yes [id number] 1{tbl} Take 1 [facility] azole-trime 3-25 tablet by ity of thoprim 00:00: mouth 2 [place] 800-160 mg 00 (two) Medical per tablet times Branch daily. sulfamethox 2020-0 Yes [id number] 1{tbl} Take 1 [facility] azole-trime 3-25 tablet by ity of thoprim 00:00: mouth 2 [place] 800-160 mg 00 (two) Medical per tablet times Branch daily. sulfamethox 2020-0 Yes [id number] 1{tbl} Take 1 [facility] azole-trime 3-25 tablet by ity of thoprim 00:00: mouth 2 [place] 800-160 mg 00 (two) Medical per tablet times Branch daily. sulfamethox 2020-0 Yes [id number] 1{tbl} Take 1 [facility] azole-trime 3-25 tablet by ity of thoprim 00:00: mouth 2 [place] 800-160 mg 00 (two) Medical per tablet times Branch daily. sulfamethox 2020-0 Yes [id number] 1{tbl} Take 1 [facility] azole-trime 3-25 tablet by ity of thoprim 00:00: mouth 2 [place] 800-160 mg 00 (two) Medical per tablet times Branch daily. sulfamethox 2020-0 Yes [id number] 1{tbl} Take 1 [facility] azole-trime 3-25 tablet by ity of thoprim 00:00: mouth 2 [place] 800-160 mg 00 (two) Medical per tablet times Branch daily. sulfamethox 2020-0 Yes [id number] 1{tbl} Take 1 [facility] azole-trime 3-25 tablet by ity of thoprim 00:00: mouth 2 [place] 800-160 mg 00 (two) Medical per tablet times Branch daily. sulfamethox 2020-0 Yes [id number] 1{tbl} Take 1 [facility] azole-trime 3-25 tablet by ity of thoprim 00:00: mouth 2 [place] 800-160 mg 00 (two) Medical per tablet times Branch daily. sulfamethox 2020-0 Yes [id number] 1{tbl} Take 1 [facility] azole-trime 3-25 tablet by ity of thoprim 00:00: mouth 2 [place] 800-160 mg 00 (two) Medical per tablet times Branch daily. sulfamethox 2020-0 Yes [id number] 1{tbl} Take 1 [facility] azole-trime 3-25 tablet by ity of thoprim 00:00: mouth 2 [place] 800-160 mg 00 (two) Medical per tablet times Branch daily. sulfamethox 2020-0 Yes [id number] 1{tbl} Take 1 [facility] azole-trime 3-25 tablet by ity of thoprim 00:00: mouth 2 [place] 800-160 mg 00 (two) Medical per tablet times Branch daily. sulfamethox 2020-0 Yes [id number] 1{tbl} Take 1 [facility] azole-trime 3-25 tablet by ity of thoprim 00:00: mouth 2 [place] 800-160 mg 00 (two) Medical per tablet times Branch daily. sulfamethox 2020-0 Yes [id number] 1{tbl} Take 1 [facility] azole-trime 3-25 tablet by ity of thoprim 00:00: mouth 2 [place] 800-160 mg 00 (two) Medical per tablet times Branch daily. sulfamethox 2020-0 Yes [id number] 1{tbl} Take 1 [facility] azole-trime 3-25 tablet by ity of thoprim 00:00: mouth 2 [place] 800-160 mg 00 (two) Medical per tablet times Branch daily. sulfamethox 2020-0 Yes [id number] 1{tbl} Take 1 [facility] azole-trime 3-25 tablet by ity of thoprim 00:00: mouth 2 [place] 800-160 mg 00 (two) Medical per tablet times Branch daily. sulfamethox 2020-0 Yes [id number] 1{tbl} Take 1 [facility] azole-trime 3-25 tablet by ity of thoprim 00:00: mouth 2 [place] 800-160 mg 00 (two) Medical per tablet times Branch daily. sulfamethox 2020-0 Yes [id number] 1{tbl} Take 1 [facility] azole-trime 3-25 tablet by ity of thoprim 00:00: mouth 2 [place] 800-160 mg 00 (two) Medical per tablet times Branch daily. sulfamethox 2020-0 Yes [id number] 1{tbl} Take 1 [facility] azole-trime 3-25 tablet by ity of thoprim 00:00: mouth 2 [place] 800-160 mg 00 (two) Medical per tablet times Branch daily. sulfamethox 2020-0 Yes [id number] 1{tbl} Take 1 [facility] azole-trime 3-25 tablet by ity of thoprim 00:00: mouth 2 [place] 800-160 mg 00 (two) Medical per tablet times Branch daily. sulfamethox 2020-0 Yes [id number] 1{tbl} Take 1 [facility] azole-trime 3-25 tablet by ity of thoprim 00:00: mouth 2 [place] 800-160 mg 00 (two) Medical per tablet times Branch daily. sulfamethox 2020-0 Yes [id number] 1{tbl} Take 1 [facility] azole-trime 3-25 tablet by ity of thoprim 00:00: mouth 2 [place] 800-160 mg 00 (two) Medical per tablet times Branch daily. sulfamethox 2020-0 Yes [id number] 1{tbl} Take 1 [facility] azole-trime 3-25 tablet by ity of thoprim 00:00: mouth 2 [place] 800-160 mg 00 (two) Medical per tablet times Branch daily. sulfamethox 2020-0 Yes [id number] 1{tbl} Take 1 [facility] azole-trime 3-25 tablet by ity of thoprim 00:00: mouth 2 [place] 800-160 mg 00 (two) Medical per tablet times Branch daily. sulfamethox 2020-0 Yes [id number] 1{tbl} Take 1 [facility] azole-trime 3-25 tablet by ity of thoprim 00:00: mouth 2 [place] 800-160 mg 00 (two) Medical per tablet times Branch daily. sulfamethox 2020-0 Yes [id number] 1{tbl} Take 1 [facility] azole-trime 3-25 tablet by ity of thoprim 00:00: mouth 2 [place] 800-160 mg 00 (two) Medical per tablet times Branch daily. sulfamethox 2020-0 Yes [id number] 1{tbl} Take 1 [facility] azole-trime 3-25 tablet by ity of thoprim 00:00: mouth 2 [place] 800-160 mg 00 (two) Medical per tablet times Branch daily. sulfamethox 2020-0 Yes [id number] 1{tbl} Take 1 [facility] azole-trime 3-25 tablet by ity of thoprim 00:00: mouth 2 [place] 800-160 mg 00 (two) Medical per tablet times Branch daily. sulfamethox 2020-0 Yes [id number] 1{tbl} Take 1 [facility] azole-trime 3-25 tablet by ity of thoprim 00:00: mouth 2 [place] 800-160 mg 00 (two) Medical per tablet times Branch daily. sulfamethox 2020-0 Yes [id number] 1{tbl} Take 1 [facility] azole-trime 3-25 tablet by ity of thoprim 00:00: mouth 2 [place] 800-160 mg 00 (two) Medical per tablet times Branch daily. sulfamethox 2020-0 Yes [id number] 1{tbl} Take 1 [facility] azole-trime 3-25 tablet by ity of thoprim 00:00: mouth 2 [place] 800-160 mg 00 (two) Medical per tablet times Branch daily. sulfamethox 2020-0 Yes [id number] 1{tbl} Take 1 [facility] azole-trime 3-25 tablet by ity of thoprim 00:00: mouth 2 [place] 800-160 mg 00 (two) Medical per tablet times Branch daily. sulfamethox 2020-0 Yes [id number] 1{tbl} Take 1 [facility] azole-trime 3-25 tablet by ity of thoprim 00:00: mouth 2 [place] 800-160 mg 00 (two) Medical per tablet times Branch daily. sulfamethox 2020-0 Yes [id number] 1{tbl} Take 1 [facility] azole-trime 3-25 tablet by ity of thoprim 00:00: mouth 2 [place] 800-160 mg 00 (two) Medical per tablet times Branch daily. sulfamethox 2020-0 Yes [id number] 1{tbl} Take 1 [facility] azole-trime 3-25 tablet by ity of thoprim 00:00: mouth 2 [place] 800-160 mg 00 (two) Medical per tablet times Branch daily. sulfamethox 2020-0 Yes [id number] 1{tbl} Take 1 [facility] azole-trime 3-25 tablet by ity of thoprim 00:00: mouth 2 [place] 800-160 mg 00 (two) Medical per tablet times Branch daily. sulfamethox 2020-0 Yes [id number] 1{tbl} Take 1 [facility] azole-trime 3-25 tablet by ity of thoprim 00:00: mouth 2 [place] 800-160 mg 00 (two) Medical per tablet times Branch daily. sulfamethox 2020-0 Yes [id number] 1{tbl} Take 1 [facility] azole-trime 3-25 tablet by ity of thoprim 00:00: mouth 2 [place] 800-160 mg 00 (two) Medical per tablet times Branch daily. sulfamethox 2020-0 Yes [id number] 1{tbl} Take 1 [facility] azole-trime 3-25 tablet by ity of thoprim 00:00: mouth 2 [place] 800-160 mg 00 (two) Medical per tablet times Branch daily. sulfamethox 2020-0 Yes [id number] 1{tbl} Take 1 [facility] azole-trime 3-25 tablet by ity of thoprim 00:00: mouth 2 [place] 800-160 mg 00 (two) Medical per tablet times Branch daily. sulfamethox 2020-0 Yes [id number] 1{tbl} Take 1 [facility] azole-trime 3-25 tablet by ity of thoprim 00:00: mouth 2 [place] 800-160 mg 00 (two) Medical per tablet times Branch daily. sulfamethox 2020-0 Yes [id number] 1{tbl} Take 1 [facility] azole-trime 3-25 tablet by ity of thoprim 00:00: mouth 2 [place] 800-160 mg 00 (two) Medical per tablet times Branch daily. sulfamethox 2020-0 Yes [id number] 1{tbl} Take 1 [facility] azole-trime 3-25 tablet by ity of thoprim 00:00: mouth 2 [place] 800-160 mg 00 (two) Medical per tablet times Branch daily. sulfamethox 2020-0 Yes [id number] 1{tbl} Take 1 [facility] azole-trime 3-25 tablet by ity of thoprim 00:00: mouth 2 [place] 800-160 mg 00 (two) Medical per tablet times Branch daily. sulfamethox 2020-0 Yes [id number] 1{tbl} Take 1 [facility] azole-trime 3-25 tablet by ity of thoprim 00:00: mouth 2 [place] 800-160 mg 00 (two) Medical per tablet times Branch daily. sulfamethox 2020-0 Yes [id number] 1{tbl} Take 1 [facility] azole-trime 3-25 tablet by ity of thoprim 00:00: mouth 2 [place] 800-160 mg 00 (two) Medical per tablet times Branch daily. sulfamethox 2020-0 Yes [id number] 1{tbl} Take 1 [facility] azole-trime 3-25 tablet by ity of thoprim 00:00: mouth 2 [place] 800-160 mg 00 (two) Medical per tablet times Branch daily. sulfamethox 2020-0 Yes [id number] 1{tbl} Take 1 [facility] azole-trime 3-25 tablet by ity of thoprim 00:00: mouth 2 [place] 800-160 mg 00 (two) Medical per tablet times Branch daily. sulfamethox 2020-0 Yes [id number] 1{tbl} Take 1 [facility] azole-trime 3-25 tablet by ity of thoprim 00:00: mouth 2 [place] 800-160 mg 00 (two) Medical per tablet times Branch daily. sulfamethox 2020-0 Yes [id number] 1{tbl} Take 1 [facility] azole-trime 3-25 tablet by ity of thoprim 00:00: mouth 2 [place] 800-160 mg 00 (two) Medical per tablet times Branch daily. sulfamethox 2020-0 Yes [id number] 1{tbl} Take 1 [facility] azole-trime 3-25 tablet by ity of thoprim 00:00: mouth 2 [place] 800-160 mg 00 (two) Medical per tablet times Branch daily. sulfamethox 2020-0 Yes [id number] 1{tbl} Take 1 [facility] azole-trime 3-25 tablet by ity of thoprim 00:00: mouth 2 [place] 800-160 mg 00 (two) Medical per tablet times Branch daily. carvediloL 2020-0 Yes 25mg Take 25 mg [facility] nivers 25 mg 3-07 by mouth 2 ity of tablet 01:16: (two) [place] 39 times Medical daily with Branch meals. proMETHazin 2020-0 Yes 12.5mg Take 12.5 [facility] e 25 mg 3-07 mg by ity of tablet 01:16: mouth 3 [place] 39 (three) Medical times Branch daily as needed for Nausea and Vomiting (N/V). insulin 2020-0 Yes inject [facility] aspart 3-07 under the ity of U-100 01:16: skin. [place] (NOVOLOG 39 Medical FLEXPEN Branch U-100 INSULIN) 100 unit/mL (3 mL) injection carvediloL 2020-0 Yes 25mg Take 25 mg [facility] nivers 25 mg 3-07 by mouth 2 ity of tablet 01:16: (two) [place] 39 times Medical daily with Branch meals. proMETHazin 2020-0 Yes 12.5mg Take 12.5 [facility] e 25 mg 3-07 mg by ity of tablet 01:16: mouth 3 [place] 39 (three) Medical times Branch daily as needed for Nausea and Vomiting (N/V). insulin 2020-0 Yes inject [facility] aspart 3-07 under the ity of U-100 01:16: skin. [place] (NOVOLOG 39 Medical FLEXPEN Branch U-100 INSULIN) 100 unit/mL (3 mL) injection carvediloL 2020-0 Yes 25mg Take 25 mg [facility] nivers 25 mg 3-07 by mouth 2 ity of tablet 01:16: (two) [place] 39 times Medical daily with Branch meals. proMETHazin 2020-0 Yes 12.5mg Take 12.5 [facility] e 25 mg 3-07 mg by ity of tablet 01:16: mouth 3 [place] 39 (three) Medical times Branch daily as needed for Nausea and Vomiting (N/V). insulin 2020-0 Yes inject [facility] aspart 3-07 under the ity of U-100 01:16: skin. [place] (NOVOLOG 39 Medical FLEXPEN Branch U-100 INSULIN) 100 unit/mL (3 mL) injection carvediloL 2020-0 Yes 25mg Take 25 mg [facility] nivers 25 mg 3-07 by mouth 2 ity of tablet 01:16: (two) [place] 39 times Medical daily with Branch meals. proMETHazin 2020-0 Yes 12.5mg Take 12.5 [facility] e 25 mg 3-07 mg by ity of tablet 01:16: mouth 3 [place] 39 (three) Medical times Branch daily as needed for Nausea and Vomiting (N/V). insulin 2020-0 Yes inject [facility] aspart 3-07 under the ity of U-100 01:16: skin. [place] (NOVOLOG 39 Medical FLEXPEN Branch U-100 INSULIN) 100 unit/mL (3 mL) injection carvediloL 2020-0 Yes 25mg Take 25 mg [facility] nivers 25 mg 3-07 by mouth 2 ity of tablet 01:16: (two) [place] 39 times Medical daily with Branch meals. proMETHazin 2020-0 Yes 12.5mg Take 12.5 [facility] e 25 mg 3-07 mg by ity of tablet 01:16: mouth 3 [place] 39 (three) Medical times Branch daily as needed for Nausea and Vomiting (N/V). insulin 2020-0 Yes inject [facility] aspart 3-07 under the ity of U-100 01:16: skin. [place] (NOVOLOG 39 Medical FLEXPEN Branch U-100 INSULIN) 100 unit/mL (3 mL) injection carvediloL 2020-0 Yes 25mg Take 25 mg [facility] nivers 25 mg 3-07 by mouth 2 ity of tablet 01:16: (two) [place] 39 times Medical daily with Branch meals. proMETHazin 2020-0 Yes 12.5mg Take 12.5 [facility] e 25 mg 3-07 mg by ity of tablet 01:16: mouth 3 [place] 39 (three) Medical times Branch daily as needed for Nausea and Vomiting (N/V). insulin 2020-0 Yes inject [facility] aspart 3-07 under the ity of U-100 01:16: skin. [place] (NOVOLOG 39 Medical FLEXPEN Branch U-100 INSULIN) 100 unit/mL (3 mL) injection carvediloL 2020-0 Yes 25mg Take 25 mg [facility] nivers 25 mg 3-07 by mouth 2 ity of tablet 01:16: (two) [place] 39 times Medical daily with Branch meals. proMETHazin 2020-0 Yes 12.5mg Take 12.5 [facility] e 25 mg 3-07 mg by ity of tablet 01:16: mouth 3 [place] 39 (three) Medical times Branch daily as needed for Nausea and Vomiting (N/V). insulin 2020-0 Yes inject [facility] aspart 3-07 under the ity of U-100 01:16: skin. [place] (NOVOLOG 39 Medical FLEXPEN Branch U-100 INSULIN) 100 unit/mL (3 mL) injection carvediloL 2020-0 Yes 25mg Take 25 mg [facility] nivers 25 mg 3-07 by mouth 2 ity of tablet 01:16: (two) [place] 39 times Medical daily with Branch meals. proMETHazin 2020-0 Yes 12.5mg Take 12.5 [facility] e 25 mg 3-07 mg by ity of tablet 01:16: mouth 3 [place] [address] (three) Medical times Branch daily as needed for Nausea and Vomiting (N/V). insulin 2020-0 Yes inject [facility] aspart 3-07 under the ity of U-100 01:16: skin. [place] (NOVOLOG 39 Medical FLEXPEN Branch U-100 INSULIN) 100 unit/mL (3 mL) injection carvediloL 2020-0 Yes 25mg Take 25 mg [facility] nivers 25 mg 3-07 by mouth 2 ity of tablet 01:16: (two) [place] 39 times Medical daily with Branch meals. proMETHazin 2020-0 Yes 12.5mg Take 12.5 [facility] e 25 mg 3-07 mg by ity of tablet 01:16: mouth 3 [place] [address] (three) Medical times Branch daily as needed for Nausea and Vomiting (N/V). insulin 2020-0 Yes inject [facility] aspart 3-07 under the ity of U-100 01:16: skin. [place] (NOVOLOG 39 Medical FLEXPEN Branch U-100 INSULIN) 100 unit/mL (3 mL) injection carvediloL 2020-0 Yes 25mg Take 25 mg [facility]ivers 25 mg 3-07 by mouth 2 ity of tablet 01:16: (two) [place] 39 times Medical daily with Branch meals. proMETHazin 2020-0 Yes 12.5mg Take 12.5 [facility] e 25 mg 3-07 mg by ity of tablet 01:16: mouth 3 [place] 39 (three) Medical times Branch daily as needed for Nausea and Vomiting (N/V). insulin 2020-0 Yes inject [facility] aspart 3-07 under the ity of U-100 01:16: skin. [place] (NOVOLOG 39 Medical FLEXPEN Branch U-100 INSULIN) 100 unit/mL (3 mL) injection carvediloL 2020-0 Yes 25mg Take 25 mg [facility]ivers 25 mg 3-07 by mouth 2 ity of tablet 01:16: (two) [place] 39 times Medical daily with Branch meals. proMETHazin 2020-0 Yes 12.5mg Take 12.5 [facility] e 25 mg 3-07 mg by ity of tablet 01:16: mouth 3 [place] [address] (three) Medical times Branch daily as needed for Nausea and Vomiting (N/V). insulin 2020-0 Yes inject [facility] aspart 3-07 under the ity of U-100 01:16: skin. [place] (NOVOLOG 39 Medical FLEXPEN Branch U-100 INSULIN) 100 unit/mL (3 mL) injection carvediloL 2020-0 Yes 25mg Take 25 mg [facility]ivers 25 mg 3-07 by mouth 2 ity of tablet 01:16: (two) [place] 39 times Medical daily with Branch meals. proMETHazin 2020-0 Yes 12.5mg Take 12.5 [facility] e 25 mg 3-07 mg by ity of tablet 01:16: mouth 3 [place] [address] (three) Medical times Branch daily as needed for Nausea and Vomiting (N/V). insulin 2020-0 Yes inject [facility] aspart 3-07 under the ity of U-100 01:16: skin. [place] (NOVOLOG 39 Medical FLEXPEN Branch U-100 INSULIN) 100 unit/mL (3 mL) injection carvediloL 2020-0 Yes 25mg Take 25 mg [facility] 25 mg 3-07 by mouth 2 ity of tablet 01:16: (two) [place] 39 times Medical daily with Branch meals. proMETHazin 2020-0 Yes 12.5mg Take 12.5 [facility] e 25 mg 3-07 mg by ity of tablet 01:16: mouth 3 [place] 39 (three) Medical times Branch daily as needed for Nausea and Vomiting (N/V). insulin 2020-0 Yes inject [facility] aspart 3-07 under the ity of U-100 01:16: skin. [place] (NOVOLOG 39 Medical FLEXPEN Branch U-100 INSULIN) 100 unit/mL (3 mL) injection carvediloL 2020-0 Yes 25mg Take 25 mg [facility] nivers 25 mg 3-07 by mouth 2 ity of tablet 01:16: (two) [place] 39 times Medical daily with Branch meals. proMETHazin 2020-0 Yes 12.5mg Take 12.5 [facility] e 25 mg 3-07 mg by ity of tablet 01:16: mouth 3 [place] [address] (three) Medical times Branch daily as needed for Nausea and Vomiting (N/V). insulin 2020-0 Yes inject [facility] aspart 3-07 under the ity of U-100 01:16: skin. [place] (NOVOLOG 39 Medical FLEXPEN Branch U-100 INSULIN) 100 unit/mL (3 mL) injection carvediloL 2020-0 Yes 25mg Take 25 mg [facility] nivers 25 mg 3-07 by mouth 2 ity of tablet 01:16: (two) [place] 39 times Medical daily with Branch meals. proMETHazin 2020-0 Yes 12.5mg Take 12.5 [facility] e 25 mg 3-07 mg by ity of tablet 01:16: mouth 3 [place] [address] (three) Medical times Branch daily as needed for Nausea and Vomiting (N/V). insulin 2020-0 Yes inject [facility] aspart 3-07 under the ity of U-100 01:16: skin. [place] (NOVOLOG 39 Medical FLEXPEN Branch U-100 INSULIN) 100 unit/mL (3 mL) injection carvediloL 2020-0 Yes 25mg Take 25 mg [facility] nivers 25 mg 3-07 by mouth 2 ity of tablet 01:16: (two) [place] 39 times Medical daily with Branch meals. proMETHazin 2020-0 Yes 12.5mg Take 12.5 [facility] e 25 mg 3-07 mg by ity of tablet 01:16: mouth 3 [place] 39 (three) Medical times Branch daily as needed for Nausea and Vomiting (N/V). insulin 2020-0 Yes inject [facility] aspart 3-07 under the ity of U-100 01:16: skin. [place] (NOVOLOG 39 Medical FLEXPEN Branch U-100 INSULIN) 100 unit/mL (3 mL) injection carvediloL 2020-0 Yes 25mg Take 25 mg [facility] nivers 25 mg 3-07 by mouth 2 ity of tablet 01:16: (two) [place] 39 times Medical daily with Branch meals. proMETHazin 2020-0 Yes 12.5mg Take 12.5 [facility] e 25 mg 3-07 mg by ity of tablet 01:16: mouth 3 [place] 39 (three) Medical times Branch daily as needed for Nausea and Vomiting (N/V). insulin 2020-0 Yes inject [facility] aspart 3-07 under the ity of U-100 01:16: skin. [place] (NOVOLOG 39 Medical FLEXPEN Branch U-100 INSULIN) 100 unit/mL (3 mL) injection carvediloL 2020-0 Yes 25mg Take 25 mg [facility] nivers 25 mg 3-07 by mouth 2 ity of tablet 01:16: (two) [place] 39 times Medical daily with Branch meals. proMETHazin 2020-0 Yes 12.5mg Take 12.5 [facility] e 25 mg 3-07 mg by ity of tablet 01:16: mouth 3 [place] 39 (three) Medical times Branch daily as needed for Nausea and Vomiting (N/V). insulin 2020-0 Yes inject [facility] aspart 3-07 under the ity of U-100 01:16: skin. [place] (NOVOLOG 39 Medical FLEXPEN Branch U-100 INSULIN) 100 unit/mL (3 mL) injection carvediloL 2020-0 Yes 25mg Take 25 mg [facility] nivers 25 mg 3-07 by mouth 2 ity of tablet 01:16: (two) [place] 39 times Medical daily with Branch meals. proMETHazin 2020-0 Yes 12.5mg Take 12.5 [facility] e 25 mg 3-07 mg by ity of tablet 01:16: mouth 3 [place] 39 (three) Medical times Branch daily as needed for Nausea and Vomiting (N/V). insulin 2020-0 Yes inject [facility] aspart 3-07 under the ity of U-100 01:16: skin. [place] (NOVOLOG 39 Medical FLEXPEN Branch U-100 INSULIN) 100 unit/mL (3 mL) injection carvediloL 2020-0 Yes 25mg Take 25 mg [facility] nivers 25 mg 3-07 by mouth 2 ity of tablet 01:16: (two) [place] 39 times Medical daily with Branch meals. proMETHazin 2020-0 Yes 12.5mg Take 12.5 [facility] 25 mg 3-07 mg by ity of tablet 01:16: mouth 3 [place] 39 (three) Medical times Branch daily as needed for Nausea and Vomiting (N/V). insulin 2020-0 Yes inject [facility] aspart 3-07 under the ity of U-100 01:16: skin. [place] (NOVOLOG 39 Medical FLEXPEN Branch U-100 INSULIN) 100 unit/mL (3 mL) injection carvediloL 2020-0 Yes 25mg Take 25 mg [facility] nivers 25 mg 3-07 by mouth 2 ity of tablet 01:16: (two) [place] 39 times Medical daily with Branch meals. proMETHazin 2020-0 Yes 12.5mg Take 12.5 [facility] 25 mg 3-07 mg by ity of tablet 01:16: mouth 3 [place] 39 (three) Medical times Branch daily as needed for Nausea and Vomiting (N/V). insulin 2020-0 Yes inject [facility] aspart 3-07 under the ity of U-100 01:16: skin. [place] (NOVOLOG 39 Medical FLEXPEN Branch U-100 INSULIN) 100 unit/mL (3 mL) injection carvediloL 2020-0 Yes 25mg Take 25 mg [facility] nivers 25 mg 3-07 by mouth 2 ity of tablet 01:16: (two) [place] 39 times Medical daily with Branch meals. proMETHazin 2020-0 Yes 12.5mg Take 12.5 [facility] 25 mg 3-07 mg by ity of tablet 01:16: mouth 3 [place] 39 (three) Medical times Branch daily as needed for Nausea and Vomiting (N/V). insulin 2020-0 Yes inject [facility] aspart 3-07 under the ity of U-100 01:16: skin. [place] (NOVOLOG 39 Medical FLEXPEN Branch U-100 INSULIN) 100 unit/mL (3 mL) injection carvediloL 2020-0 Yes 25mg Take 25 mg [facility] nivers 25 mg 3-07 by mouth 2 ity of tablet 01:16: (two) [place] 39 times Medical daily with Branch meals. proMETHazin 2020-0 Yes 12.5mg Take 12.5 [facility] 25 mg 3-07 mg by ity of tablet 01:16: mouth 3 [place] 39 (three) Medical times Branch daily as needed for Nausea and Vomiting (N/V). insulin 2020-0 Yes inject [facility] aspart 3-07 under the ity of U-100 01:16: skin. [place] (NOVOLOG 39 Medical FLEXPEN Branch U-100 INSULIN) 100 unit/mL (3 mL) injection carvediloL 2020-0 Yes 25mg Take 25 mg [facility] nivers 25 mg 3-07 by mouth 2 ity of tablet 01:16: (two) [place] 39 times Medical daily with Branch meals. proMETHazin 2020-0 Yes 12.5mg Take 12.5 [facility] 25 mg 3-07 mg by ity of tablet 01:16: mouth 3 [place] 39 (three) Medical times Branch daily as needed for Nausea and Vomiting (N/V). insulin 2020-0 Yes inject [facility] aspart 3-07 under the ity of U-100 01:16: skin. [place] (NOVOLOG 39 Medical FLEXPEN Branch U-100 INSULIN) 100 unit/mL (3 mL) injection carvediloL 2020-0 Yes 25mg Take 25 mg [facility] n[facility] 25 mg 3-07 by mouth 2 ity of tablet 01:16: (two) [place] 39 times Medical daily with Branch meals. proMETHazin 2020-0 Yes 12.5mg Take 12.5 [facility] 25 mg 3-07 mg by ity of tablet 01:16: mouth 3 [place] [address] (three) Medical times Branch daily as needed for Nausea and Vomiting (N/V). insulin 2020-0 Yes inject [facility] aspart 3-07 under the ity of U-100 01:16: skin. [place] (NOVOLOG 39 Medical FLEXPEN Branch U-100 INSULIN) 100 unit/mL (3 mL) injection carvediloL 2020-0 Yes 25mg Take 25 mg [facility] 25 mg 3-07 by mouth 2 ity of tablet 01:16: (two) [place] 39 times Medical daily with Branch meals. proMETHazin 2020-0 Yes 12.5mg Take 12.5 [facility] 25 mg 3-07 mg by ity of tablet 01:16: mouth 3 [place] [address] (three) Medical times Branch daily as needed for Nausea and Vomiting (N/V). insulin 2020-0 Yes inject [facility] aspart 3-07 under the ity of U-100 01:16: skin. [place] (NOVOLOG 39 Medical FLEXPEN Branch U-100 INSULIN) 100 unit/mL (3 mL) injection carvediloL 2020-0 Yes 25mg Take 25 mg [facility] 25 mg 3-07 by mouth 2 ity of tablet 01:16: (two) [place] 39 times Medical daily with Branch meals. proMETHazin 2020-0 Yes 12.5mg Take 12.5 [facility] 25 mg 3-07 mg by ity of tablet 01:16: mouth 3 [place] 39 (three) Medical times Branch daily as needed for Nausea and Vomiting (N/V). insulin 2020-0 Yes inject [facility] aspart 3-07 under the ity of U-100 01:16: skin. [place] (NOVOLOG 39 Medical FLEXPEN Branch U-100 INSULIN) 100 unit/mL (3 mL) injection carvediloL 2020-0 Yes 25mg Take 25 mg [facility] 25 mg 3-07 by mouth 2 ity of tablet 01:16: (two) [place] 39 times Medical daily with Branch meals. proMETHazin 2020-0 Yes 12.5mg Take 12.5 [facility] 25 mg 3-07 mg by ity of tablet 01:16: mouth 3 [place] [address] (three) Medical times Branch daily as needed for Nausea and Vomiting (N/V). insulin 2020-0 Yes inject [facility] aspart 3-07 under the ity of U-100 01:16: skin. [place] (NOVOLOG 39 Medical FLEXPEN Branch U-100 INSULIN) 100 unit/mL (3 mL) injection carvediloL 2020-0 Yes 25mg Take 25 mg [facility] 25 mg 3-07 by mouth 2 ity of tablet 01:16: (two) [place] 39 times Medical daily with Branch meals. proMETHazin 2020-0 Yes 12.5mg Take 12.5 [facility] 25 mg 3-07 mg by ity of tablet 01:16: mouth 3 [place] [address] (three) Medical times Branch daily as needed for Nausea and Vomiting (N/V). insulin 2020-0 Yes inject [facility] aspart 3-07 under the ity of U-100 01:16: skin. [place] (NOVOLOG 39 Medical FLEXPEN Branch U-100 INSULIN) 100 unit/mL (3 mL) injection carvediloL 2020-0 Yes 25mg Take 25 mg [facility] nivers 25 mg 3-07 by mouth 2 ity of tablet 01:16: (two) [place] 39 times Medical daily with Branch meals. proMETHazin 2020-0 Yes 12.5mg Take 12.5 [facility] 25 mg 3-07 mg by ity of tablet 01:16: mouth 3 [place] 39 (three) Medical times Branch daily as needed for Nausea and Vomiting (N/V). insulin 2020-0 Yes inject [facility] aspart 3-07 under the ity of U-100 01:16: skin. [place] (NOVOLOG 39 Medical FLEXPEN Branch U-100 INSULIN) 100 unit/mL (3 mL) injection carvediloL 2020-0 Yes 25mg Take 25 mg [facility] 25 mg 3-07 by mouth 2 ity of tablet 01:16: (two) [place] 39 times Medical daily with Branch meals. proMETHazin 2020-0 Yes 12.5mg Take 12.5 [facility] 25 mg 3-07 mg by ity of tablet 01:16: mouth 3 [place] [address] (three) Medical times Branch daily as needed for Nausea and Vomiting (N/V). insulin 2020-0 Yes inject [facility] aspart 3-07 under the ity of U-100 01:16: skin. [place] (NOVOLOG 39 Medical FLEXPEN Branch U-100 INSULIN) 100 unit/mL (3 mL) injection carvediloL 2020-0 Yes 25mg Take 25 mg [facility] nivers 25 mg 3-07 by mouth 2 ity of tablet 01:16: (two) [place] [address] times Medical daily with Branch meals. proMETHazin 2020-0 Yes 12.5mg Take 12.5 [facility] 25 mg 3-07 mg by ity of tablet 01:16: mouth 3 [place] [address] (three) Medical times Branch daily as needed for Nausea and Vomiting (N/V). insulin 2020-0 Yes inject [facility] aspart 3-07 under the ity of U-100 01:16: skin. [place] (NOVOLOG 39 Medical FLEXPEN Branch U-100 INSULIN) 100 unit/mL (3 mL) injection carvediloL 2020-0 Yes 25mg Take 25 mg [facility] n[facility] 25 mg 3-07 by mouth 2 ity of tablet 01:16: (two) [place] 39 times Medical daily with Branch meals. proMETHazin 2020-0 Yes 12.5mg Take 12.5 [facility] 25 mg 3-07 mg by ity of tablet 01:16: mouth 3 [place] 39 (three) Medical times Branch daily as needed for Nausea and Vomiting (N/V). insulin 2020-0 Yes inject [facility] aspart 3-07 under the ity of U-100 01:16: skin. [place] (NOVOLOG 39 Medical FLEXPEN Branch U-100 INSULIN) 100 unit/mL (3 mL) injection carvediloL 2020-0 Yes 25mg Take 25 mg [facility] nivers 25 mg 3-07 by mouth 2 ity of tablet 01:16: (two) [place] 39 times Medical daily with Branch meals. proMETHazin 2020-0 Yes 12.5mg Take 12.5 [facility] 25 mg 3-07 mg by ity of tablet 01:16: mouth 3 [place] 39 (three) Medical times Branch daily as needed for Nausea and Vomiting (N/V). insulin 2020-0 Yes inject [facility] aspart 3-07 under the ity of U-100 01:16: skin. [place] (NOVOLOG 39 Medical FLEXPEN Branch U-100 INSULIN) 100 unit/mL (3 mL) injection carvediloL 2020-0 Yes 25mg Take 25 mg [facility]ivers 25 mg 3-07 by mouth 2 ity of tablet 01:16: (two) [place] 39 times Medical daily with Branch meals. proMETHazin 2020-0 Yes 12.5mg Take 12.5 [facility] 25 mg 3-07 mg by ity of tablet 01:16: mouth 3 [place] 39 (three) Medical times Branch daily as needed for Nausea and Vomiting (N/V). insulin 2020-0 Yes inject [facility] aspart 3-07 under the ity of U-100 01:16: skin. [place] (NOVOLOG 39 Medical FLEXPEN Branch U-100 INSULIN) 100 unit/mL (3 mL) injection carvediloL 2020-0 Yes 25mg Take 25 mg [facility] n[facility] 25 mg 3-07 by mouth 2 ity of tablet 01:16: (two) [place] 39 times Medical daily with Branch meals. proMETHazin 2020-0 Yes 12.5mg Take 12.5 [facility] 25 mg 3-07 mg by ity of tablet 01:16: mouth 3 [place] 39 (three) Medical times Branch daily as needed for Nausea and Vomiting (N/V). insulin 2020-0 Yes inject [facility] aspart 3-07 under the ity of U-100 01:16: skin. [place] (NOVOLOG 39 Medical FLEXPEN Branch U-100 INSULIN) 100 unit/mL (3 mL) injection carvediloL 2020-0 Yes 25mg Take 25 mg [facility] nivers 25 mg 3-07 by mouth 2 ity of tablet 01:16: (two) [place] 39 times Medical daily with Branch meals. proMETHazin 2020-0 Yes 12.5mg Take 12.5 [facility] 25 mg 3-07 mg by ity of tablet 01:16: mouth 3 [place] 39 (three) Medical times Branch daily as needed for Nausea and Vomiting (N/V). insulin 2020-0 Yes inject [facility] aspart 3-07 under the ity of U-100 01:16: skin. [place] (NOVOLOG 39 Medical FLEXPEN Branch U-100 INSULIN) 100 unit/mL (3 mL) injection carvediloL 2020-0 Yes 25mg Take 25 mg [facility] nivers 25 mg 3-07 by mouth 2 ity of tablet 01:16: (two) [place] 39 times Medical daily with Branch meals. proMETHazin 2020-0 Yes 12.5mg Take 12.5 [facility] 25 mg 3-07 mg by ity of tablet 01:16: mouth 3 [place] 39 (three) Medical times Branch daily as needed for Nausea and Vomiting (N/V). insulin 2020-0 Yes inject [facility] aspart 3-07 under the ity of U-100 01:16: skin. [place] (NOVOLOG 39 Medical FLEXPEN Branch U-100 INSULIN) 100 unit/mL (3 mL) injection carvediloL 2020-0 Yes 25mg Take 25 mg [facility] nivers 25 mg 3-07 by mouth 2 ity of tablet 01:16: (two) [place] 39 times Medical daily with Branch meals. proMETHazin 2020-0 Yes 12.5mg Take 12.5 [facility] 25 mg 3-07 mg by ity of tablet 01:16: mouth 3 [place] 39 (three) Medical times Branch daily as needed for Nausea and Vomiting (N/V). insulin 2020-0 Yes inject [facility] aspart 3-07 under the ity of U-100 01:16: skin. [place] (NOVOLOG 39 Medical FLEXPEN Branch U-100 INSULIN) 100 unit/mL (3 mL) injection carvediloL 2020-0 Yes 25mg Take 25 mg [facility] nivers 25 mg 3-07 by mouth 2 ity of tablet 01:16: (two) [place] 39 times Medical daily with Branch meals. proMETHazin 2020-0 Yes 12.5mg Take 12.5 [facility] 25 mg 3-07 mg by ity of tablet 01:16: mouth 3 [place] 39 (three) Medical times Branch daily as needed for Nausea and Vomiting (N/V). insulin 2020-0 Yes inject [facility] aspart 3-07 under the ity of U-100 01:16: skin. [place] (NOVOLOG 39 Medical FLEXPEN Branch U-100 INSULIN) 100 unit/mL (3 mL) injection carvediloL 2020-0 Yes 25mg Take 25 mg [facility] nivers 25 mg 3-07 by mouth 2 ity of tablet 01:16: (two) [place] 39 times Medical daily with Branch meals. proMETHazin 2020-0 Yes 12.5mg Take 12.5 [facility] 25 mg 3-07 mg by ity of tablet 01:16: mouth 3 [place] [address] (three) Medical times Branch daily as needed for Nausea and Vomiting (N/V). insulin 2020-0 Yes inject [facility] aspart 3-07 under the ity of U-100 01:16: skin. [place] (NOVOLOG 39 Medical FLEXPEN Branch U-100 INSULIN) 100 unit/mL (3 mL) injection carvediloL 2020-0 Yes 25mg Take 25 mg [facility] nivers 25 mg 3-07 by mouth 2 ity of tablet 01:16: (two) [place] 39 times Medical daily with Branch meals. proMETHazin 2020-0 Yes 12.5mg Take 12.5 [facility] 25 mg 3-07 mg by ity of tablet 01:16: mouth 3 [place] [address] (three) Medical times Branch daily as needed for Nausea and Vomiting (N/V). insulin 2020-0 Yes inject [facility] aspart 3-07 under the ity of U-100 01:16: skin. [place] (NOVOLOG 39 Medical FLEXPEN Branch U-100 INSULIN) 100 unit/mL (3 mL) injection carvediloL 2020-0 Yes 25mg Take 25 mg [facility] nivers 25 mg 3-07 by mouth 2 ity of tablet :16: (two) [place] 39 times Medical daily with Branch meals. proMETHazin 2020-0 Yes 12.5mg Take 12.5 [facility] 25 mg 3-07 mg by ity of tablet 01:16: mouth 3 [place] [address] (three) Medical times Branch daily as needed for Nausea and Vomiting (N/V). insulin 2020-0 Yes inject [facility] aspart 3-07 under the ity of U-100 01:16: skin. [place] (NOVOLOG 39 Medical FLEXPEN Branch U-100 INSULIN) 100 unit/mL (3 mL) injection carvediloL 2020-0 Yes 25mg Take 25 mg [facility] nivers 25 mg 3-07 by mouth 2 ity of tablet 01:16: (two) [place] 39 times Medical daily with Branch meals. proMETHazin 2020-0 Yes 12.5mg Take 12.5 [facility] 25 mg 3-07 mg by ity of tablet 01:16: mouth 3 [place] 39 (three) Medical times Branch daily as needed for Nausea and Vomiting (N/V). insulin 2020-0 Yes inject [facility] aspart 3-07 under the ity of U-100 01:16: skin. [place] (NOVOLOG 39 Medical FLEXPEN Branch U-100 INSULIN) 100 unit/mL (3 mL) injection carvediloL 2020-0 Yes 25mg Take 25 mg [facility] nivers 25 mg 3-07 by mouth 2 ity of tablet 01:16: (two) [place] 39 times Medical daily with Branch meals. proMETHazin 2020-0 Yes 12.5mg Take 12.5 [facility] 25 mg 3-07 mg by ity of tablet 01:16: mouth 3 [place] [address] (three) Medical times Branch daily as needed for Nausea and Vomiting (N/V). insulin 2020-0 Yes inject [facility] aspart 3-07 under the ity of U-100 01:16: skin. [place] (NOVOLOG 39 Medical FLEXPEN Branch U-100 INSULIN) 100 unit/mL (3 mL) injection carvediloL 2020-0 Yes 25mg Take 25 mg [facility] nivers 25 mg 3-07 by mouth 2 ity of tablet 01:16: (two) [place] 39 times Medical daily with Branch meals. proMETHazin 2020-0 Yes 12.5mg Take 12.5 [facility] 25 mg 3-07 mg by ity of tablet 01:16: mouth 3 [place] [address] (three) Medical times Branch daily as needed for Nausea and Vomiting (N/V). insulin 2020-0 Yes inject [facility] aspart 3-07 under the ity of U-100 01:16: skin. [place] (NOVOLOG 39 Medical FLEXPEN Branch U-100 INSULIN) 100 unit/mL (3 mL) injection carvediloL 2020-0 Yes 25mg Take 25 mg [facility] nivers 25 mg 3-07 by mouth 2 ity of tablet 01:16: (two) [place] 39 times Medical daily with Branch meals. proMETHazin 2020-0 Yes 12.5mg Take 12.5 [facility] 25 mg 3-07 mg by ity of tablet 01:16: mouth 3 [place] 39 (three) Medical times Branch daily as needed for Nausea and Vomiting (N/V). insulin 2020-0 Yes inject [facility] aspart 3-07 under the ity of U-100 01:16: skin. [place] (NOVOLOG 39 Medical FLEXPEN Branch U-100 INSULIN) 100 unit/mL (3 mL) injection carvediloL 2020-0 Yes 25mg Take 25 mg [facility] nivers 25 mg 3-07 by mouth 2 ity of tablet 01:16: (two) [place] 39 times Medical daily with Branch meals. proMETHazin 2020-0 Yes 12.5mg Take 12.5 [facility] 25 mg 3-07 mg by ity of tablet 01:16: mouth 3 [place] [address] (three) Medical times Branch daily as needed for Nausea and Vomiting (N/V). insulin 2020-0 Yes inject [facility] aspart 3-07 under the ity of U-100 01:16: skin. [place] (NOVOLOG 39 Medical FLEXPEN Branch U-100 INSULIN) 100 unit/mL (3 mL) injection carvediloL 2020-0 Yes 25mg Take 25 mg [facility] nivers 25 mg 3-07 by mouth 2 ity of tablet 01:16: (two) [place] 39 times Medical daily with Branch meals. proMETHazin 2020-0 Yes 12.5mg Take 12.5 [facility] e 25 mg 3-07 mg by ity of tablet 01:16: mouth 3 [place] [address] (three) Medical times Branch daily as needed for Nausea and Vomiting (N/V). insulin 2020-0 Yes inject [facility] aspart 3-07 under the ity of U-100 01:16: skin. [place] (NOVOLOG 39 Medical FLEXPEN Branch U-100 INSULIN) 100 unit/mL (3 mL) injection carvediloL 2020-0 Yes 25mg Take 25 mg [facility] nivers 25 mg 3-07 by mouth 2 ity of tablet 01:16: (two) [place] 39 times Medical daily with Branch meals. proMETHazin 2020-0 Yes 12.5mg Take 12.5 [facility] e 25 mg 3-07 mg by ity of tablet 01:16: mouth 3 [place] [address] (three) Medical times Branch daily as needed for Nausea and Vomiting (N/V). insulin 2020-0 Yes inject [facility] aspart 3-07 under the ity of U-100 01:16: skin. [place] (NOVOLOG 39 Medical FLEXPEN Branch U-100 INSULIN) 100 unit/mL (3 mL) injection carvediloL 2020-0 Yes 25mg Take 25 mg [facility] nivers 25 mg 3-07 by mouth 2 ity of tablet 01:16: (two) [place] 39 times Medical daily with Branch meals. proMETHazin 2020-0 Yes 12.5mg Take 12.5 [facility] 25 mg 3-07 mg by ity of tablet 01:16: mouth 3 [place] 39 (three) Medical times Branch daily as needed for Nausea and Vomiting (N/V). insulin 2020-0 Yes inject [facility] aspart 3-07 under the ity of U-100 01:16: skin. [place] (NOVOLOG 39 Medical FLEXPEN Branch U-100 INSULIN) 100 unit/mL (3 mL) injection carvediloL 2020-0 Yes 25mg Take 25 mg [facility] nivers 25 mg 3-07 by mouth 2 ity of tablet 01:16: (two) [place] 39 times Medical daily with Branch meals. proMETHazin 2020-0 Yes 12.5mg Take 12.5 [facility] 25 mg 3-07 mg by ity of tablet 01:16: mouth 3 [place] [address] (three) Medical times Branch daily as needed for Nausea and Vomiting (N/V). insulin 2020-0 Yes inject [facility] aspart 3-07 under the ity of U-100 01:16: skin. [place] (NOVOLOG 39 Medical FLEXPEN Branch U-100 INSULIN) 100 unit/mL (3 mL) injection carvediloL 2020-0 Yes 25mg Take 25 mg [facility] nivers 25 mg 3-07 by mouth 2 ity of tablet 01:16: (two) [place] 39 times Medical daily with Branch meals. proMETHazin 2020-0 Yes 12.5mg Take 12.5 [facility] 25 mg 3-07 mg by ity of tablet 01:16: mouth 3 [place] 39 (three) Medical times Branch daily as needed for Nausea and Vomiting (N/V). insulin 2020-0 Yes inject [facility] aspart 3-07 under the ity of U-100 01:16: skin. [place] (NOVOLOG 39 Medical FLEXPEN Branch U-100 INSULIN) 100 unit/mL (3 mL) injection pregabalin 2019-0 2020- No 300mg Take 300 U nivers 300 mg 3-07 03-06 mg by ity of capsule 01:15: 00:00 mouth. [place] 02 :00 Medical Branch nitroglycer 2020-0 2020- No .3mg Place 0.3 [facility] in 0.3 mg 04-20-06 mg under ity o f sublingual 01:14: 00:00 the tongue [place] tablet 27 :00 every 5 Medical (five) Branch minutes as needed for Chest pain. losartan-hy 2019- No Take by Un osbaldo drochloroth 04-20-06 mouth. ity o f iazide 01:14: 00:00 [place] 100-25 mg 09 :00 Medical per tablet Branch insulin 2020- No inject [facility] lispro, 04-20-06 under the ity of human, 100 01:14: 00:00 skin. [place] unit/mL 06 :00 Medical injection Branch acetaminoph 2020- No 500mg Take 500 [facility] en (TYLENOL 04-20-06 mg by ity of EXTRA 01:12: 00:00 [...] 3-07 by mouth. ity of tablet 00:22: [place] 08 Medical Branch proMETHazin 2020-0 Yes 12.5mg [...] ity of capsule 00:13: mouth 2 [place] 40 (two) Medical times Branch daily. gabapentin 2020-0 Yes 100mg Take 100 Un osbaldo 100 mg 3-07 mg by ity of capsule 00:13: mouth 2 [place] 40 (two) Medical times Branch daily. gabapentin 2020-0 Yes 100mg Take 100 [facility] osbal[facility] 100 mg 3-07 mg by ity of capsule 00:13: mouth 2 [place] 40 (two) Medical times Branch daily. gabapentin 2020-0 Yes 100mg Take 100 Un osbal[facility] 100 mg 3-07 mg by ity of capsule 00:13: mouth 2 [place] 40 (two) Medical times Branch daily. gabapentin 2020-0 Yes 100mg Take 100 [facility] 100 mg 3-07 mg by ity of capsule 00:13: mouth 2 [place] 40 (two) Medical times Branch daily. gabapentin 2020-0 Yes 100mg Take 100 [facility] 100 mg 3-07 mg by ity of capsule 00:13: mouth 2 [place] 40 (two) Medical times Branch daily. gabapentin 2020-0 Yes 100mg Take 100 [facility] 100 mg 3-07 mg by ity of capsule 00:13: mouth [address] [place] [id number] 40 (two) Medical times Branch daily. gabapentin 2020-0 Yes 100mg Take 100 [facility] 100 mg 3-07 mg by ity of capsule 00:13: mouth [address] [place] [id number] 40 (two) Medical times Branch daily. gabapentin 2020-0 Yes 100mg Take 100 [facility] 100 mg 3-07 mg by ity of capsule 00:13: mouth 2 [place] 40 (two) Medical times Branch daily. gabapentin 2020-0 Yes 100mg Take 100 [facility] 100 mg 3-07 mg by ity of capsule 00:13: mouth [address] [place] [id number] 40 (two) Medical times Branch daily. gabapentin 2020-0 Yes 100mg Take 100 [facility] 100 mg 3-07 mg by ity of capsule 00:13: mouth 2 [place] 40 (two) Medical times Branch daily. gabapentin 2020-0 Yes 100mg Take 100 [facility] 100 mg 3-07 mg by ity of capsule 00:13: mouth 2 [place] 40 (two) Medical times Branch daily. gabapentin 2020-0 Yes 100mg Take 100 [facility] 100 mg 3-07 mg by ity of capsule 00:13: mouth 2 [place] 40 (two) Medical times Branch daily. gabapentin 2020-0 Yes 100mg Take 100 [facility] 100 mg 3-07 mg by ity of capsule 00:13: mouth 2 [place] 40 (two) Medical times Branch daily. gabapentin 2020-0 Yes 100mg Take 100 [facility] 100 mg 3-07 mg by ity of capsule 00:13: mouth 2 [place] 40 (two) Medical times Branch daily. gabapentin 2020-0 Yes 100mg Take 100 [facility] 100 mg 3-07 mg by ity of capsule 00:13: mouth 2 [place] 40 (two) Medical times Branch daily. gabapentin 2020-0 Yes 100mg Take 100 [facility] 100 mg 3-07 mg by ity of capsule 00:13: mouth 2 [place] 40 (two) Medical times Branch daily. gabapentin 2020-0 Yes 100mg Take 100 [facility] 100 mg 3-07 mg by ity of capsule 00:13: mouth 2 [place] 40 (two) Medical times Branch daily. gabapentin 2020-0 Yes 100mg Take 100 [facility] 100 mg 3-07 mg by ity of capsule 00:13: mouth 2 [place] 40 (two) Medical times Branch daily. gabapentin 2020-0 Yes 100mg Take 100 [facility] 100 mg 3-07 mg by ity of capsule 00:13: mouth [address] [place] [id number] 40 (two) Medical times Branch daily. gabapentin 2020-0 Yes 100mg Take 100 [facility] 100 mg 3-07 mg by ity of capsule 00:13: mouth [address] [place] [id number] 40 (two) Medical times Branch daily. gabapentin 2020-0 Yes 100mg Take 100 [facility] 100 mg 3-07 mg by ity of capsule 00:13: mouth 2 [place] 40 (two) Medical times Branch daily. gabapentin 2020-0 Yes 100mg Take 100 [facility] 100 mg 3-07 mg by ity of capsule 00:13: mouth [address] [place] [id number] 40 (two) Medical times Branch daily. gabapentin 2020-0 Yes 100mg Take 100 [facility] 100 mg 3-07 mg by ity of capsule 00:13: mouth 2 [place] 40 (two) Medical times Branch daily. gabapentin 2020-0 Yes 100mg Take 100 [facility] 100 mg 3-07 mg by ity of capsule 00:13: mouth 2 [place] 40 (two) Medical times Branch daily. gabapentin 2020-0 Yes 100mg Take 100 [facility] 100 mg 3-07 mg by ity of capsule 00:13: mouth 2 [place] 40 (two) Medical times Branch daily. gabapentin 2020-0 Yes 100mg Take 100 [facility] 100 mg 3-07 mg by ity of capsule 00:13: mouth 2 [place] 40 (two) Medical times Branch daily. gabapentin 2020-0 Yes 100mg Take 100 [facility] 100 mg 3-07 mg by ity of capsule 00:13: mouth 2 [place] 40 (two) Medical times Branch daily. gabapentin 2020-0 Yes 100mg Take 100 [facility] 100 mg 3-07 mg by ity of capsule 00:13: mouth 2 [place] 40 (two) Medical times Branch daily. gabapentin 2020-0 Yes 100mg Take 100 [facility] 100 mg 3-07 mg by ity of capsule 00:13: mouth 2 [place] 40 (two) Medical times Branch daily. gabapentin 2020-0 Yes 100mg Take 100 [facility] 100 mg 3-07 mg by ity of capsule 00:13: mouth 2 [place] 40 (two) Medical times Branch daily. gabapentin 2020-0 Yes 100mg Take 100 [facility] 100 mg 3-07 mg by ity of capsule 00:13: mouth [address] [place] [id number] 40 (two) Medical times Branch daily. gabapentin 2020-0 Yes 100mg Take 100 [facility] 100 mg 3-07 mg by ity of capsule 00:13: mouth [address] [place] [id number] 40 (two) Medical times Branch daily. gabapentin 2020-0 Yes 100mg Take 100 [facility] 100 mg 3-07 mg by ity of capsule 00:13: mouth [address] [place] [id number] 40 (two) Medical times Branch daily. gabapentin 2020-0 Yes 100mg Take 100 [facility] 100 mg 3-07 mg by ity of capsule 00:13: mouth 2 [place] 40 (two) Medical times Branch daily. gabapentin 2020-0 Yes 100mg Take 100 [facility] 100 mg 3-07 mg by ity of capsule 00:13: mouth [address] [place] [id number] 40 (two) Medical times Branch daily. gabapentin 2020-0 Yes 100mg Take 100 [facility] 100 mg 3-07 mg by ity of capsule 00:13: mouth 2 [place] 40 (two) Medical times Branch daily. gabapentin 2020-0 Yes 100mg Take 100 [facility] 100 mg 3-07 mg by ity of capsule 00:13: mouth 2 [place] 40 (two) Medical times Branch daily. gabapentin 2020-0 Yes 100mg Take 100 [facility] 100 mg 3-07 mg by ity of capsule 00:13: mouth 2 [place] 40 (two) Medical times Branch daily. gabapentin 2020-0 Yes 100mg Take 100 [facility] 100 mg 3-07 mg by ity of capsule 00:13: mouth 2 [place] 40 (two) Medical times Branch daily. gabapentin 2020-0 Yes 100mg Take 100 [facility] 100 mg 3-07 mg by ity of capsule 00:13: mouth 2 [place] 40 (two) Medical times Branch daily. gabapentin 2020-0 Yes 100mg Take 100 Un [place] 100 mg 3-07 mg by ity of capsule 00:13: mouth 2 [place] 40 (two) Medical times Branch daily. gabapentin 2020-0 Yes 100mg Take 100 Un [place] 100 mg 3-07 mg by ity of capsule 00:13: mouth 2 [place] 40 (two) Medical times Branch daily. gabapentin 2020-0 Yes 100mg Take 100 Un [place] 100 mg 3-07 mg by ity of capsule 00:13: mouth 2 [place] 40 (two) Medical times Branch daily. gabapentin 2020-0 Yes 100mg Take 100 Un [place] 100 mg 3-07 mg by ity of capsule 00:13: mouth [address] [place] [id number] 40 (two) Medical times Branch daily. gabapentin 2020-0 Yes 100mg Take 100 Un [place] 100 mg 3-07 mg by ity of capsule 00:13: mouth 2 [place] 40 (two) Medical times Branch daily. gabapentin 2020-0 Yes 100mg Take 100 Un [place] 100 mg 3-07 mg by ity of capsule 00:13: mouth [address] [place] [id number] 40 (two) Medical times Branch daily. gabapentin 2020-0 Yes 100mg Take 100 Un [place] 100 mg 3-07 mg by ity of capsule 00:13: mouth 2 [place] 40 (two) Medical times Branch daily. gabapentin 2020-0 Yes 100mg Take 100 Un [place] 100 mg 3-07 mg by ity of capsule 00:13: mouth 2 [place] 40 (two) Medical times Branch daily. gabapentin 2020-0 Yes 100mg Take 100 Un [place] 100 mg 3-07 mg by ity of capsule 00:13: mouth 2 [place] 40 (two) Medical times Branch daily. gabapentin 2020-0 Yes 100mg Take 100 Un [place] 100 mg 3-07 mg by ity of capsule 00:13: mouth 2 [place] 40 (two) Medical times Branch daily. gabapentin 2020-0 Yes 100mg Take 100 Un [place] 100 mg 3-07 mg by ity of capsule 00:13: mouth 2 [place] 40 (two) Medical times Branch daily. gabapentin 2020-0 Yes 100mg Take 100 Un [place] 100 mg 3-07 mg by ity of capsule 00:13: mouth 2 [place] 40 (two) Medical times Branch daily. hydrALAZINE 2020-0 Yes 50mg Take 50 mg [facility] 50 mg 3-07 by mouth 3 ity of tablet 00:01: (three) [place] 47 times Medical daily with Branch meals. hydrALAZINE 2020-0 Yes 50mg Take 50 mg [facility] 50 mg 3-07 by mouth 3 ity of tablet 00:01: (three) [place] 47 times Medical daily with Branch meals. hydrALAZINE 2020-0 Yes 50mg Take 50 mg [facility] 50 mg 3-07 by mouth 3 ity of tablet 00:01: (three) [place] 47 times Medical daily with Branch meals. hydrALAZINE 2020-0 Yes 50mg Take 50 mg [facility] 50 mg 3-07 by mouth 3 ity of tablet 00:01: (three) [place] 47 times Medical daily with Branch meals. hydrALAZINE 2020-0 Yes 50mg Take 50 mg [facility] 50 mg 3-07 by mouth 3 ity of tablet 00:01: (three) [place] 47 times Medical daily with Branch meals. hydrALAZINE 2020-0 Yes 50mg Take 50 mg [facility] 50 mg 3-07 by mouth 3 ity of tablet 00:01: (three) [place] 47 times Medical daily with Branch meals. hydrALAZINE 2020-0 Yes 50mg Take 50 mg [facility] 50 mg 3-07 by mouth 3 ity of tablet 00:01: (three) [place] 47 times Medical daily with Branch meals. hydrALAZINE 2020-0 Yes 50mg Take 50 mg [facility] 50 mg 3-07 by mouth 3 ity of tablet 00:01: (three) [place] 47 times Medical daily with Branch meals. hydrALAZINE 2020-0 Yes 50mg Take 50 mg [facility] 50 mg 3-07 by mouth 3 ity of tablet 00:01: (three) [place] 47 times Medical daily with Branch meals. hydrALAZINE 2020-0 Yes 50mg Take 50 mg [facility] 50 mg 3-07 by mouth 3 ity of tablet 00:01: (three) [place] 47 times Medical daily with Branch meals. hydrALAZINE 2020-0 Yes 50mg Take 50 mg [facility] 50 mg 3-07 by mouth 3 ity of tablet 00:01: (three) [place] 47 times Medical daily with Branch meals. hydrALAZINE 2020-0 Yes 50mg Take 50 mg [facility] 50 mg 3-07 by mouth 3 ity of tablet 00:01: (three) [place] 47 times Medical daily with Branch meals. hydrALAZINE 2020-0 Yes 50mg Take 50 mg [facility] 50 mg 3-07 by mouth 3 ity of tablet 00:01: (three) [place] 47 times Medical daily with Branch meals. hydrALAZINE 2020-0 Yes 50mg Take 50 mg [facility] 50 mg 3-07 by mouth 3 ity of tablet 00:01: (three) [place] 47 times Medical daily with Branch meals. hydrALAZINE 2020-0 Yes 50mg Take 50 mg [facility] 50 mg 3-07 by mouth 3 ity of tablet 00:01: (three) [place] 47 times Medical daily with Branch meals. hydrALAZINE 2020-0 Yes 50mg Take 50 mg [facility] 50 mg 3-07 by mouth 3 ity of tablet 00:01: (three) [place] 47 times Medical daily with Branch meals. hydrALAZINE 2020-0 Yes 50mg Take 50 mg [facility] 50 mg 3-07 by mouth 3 ity of tablet 00:01: (three) [place] 47 times Medical daily with Branch meals. hydrALAZINE 2020-0 Yes 50mg Take 50 mg [facility] 50 mg 3-07 by mouth 3 ity of tablet 00:01: (three) [place] 47 times Medical daily with Branch meals. hydrALAZINE 2020-0 Yes 50mg Take 50 mg [facility] 50 mg 3-07 by mouth 3 ity of tablet 00:01: (three) [place] 47 times Medical daily with Branch meals. hydrALAZINE 2020-0 Yes 50mg Take 50 mg [facility] 50 mg 3-07 by mouth 3 ity of tablet 00:01: (three) [place] 47 times Medical daily with Branch meals. hydrALAZINE 2020-0 Yes 50mg Take 50 mg [facility] 50 mg 3-07 by mouth 3 ity of tablet 00:01: (three) [place] 47 times Medical daily with Branch meals. losartan-hy 2020-0 Yes Take by Uni vers drochloroth 3-07 mouth. ity of iazide 00:01: [place] 100-25 mg 47 Medical per tablet Branch hydrALAZINE 2020-0 Yes 50mg Take 50 mg [facility] 50 mg 3-07 by mouth 3 ity of tablet 00:01: (three) [place] 47 times Medical daily with Branch meals. hydrALAZINE 2020-0 Yes 50mg Take 50 mg [facility] 50 mg 3-07 by mouth 3 ity of tablet 00:01: (three) [place] 47 times Medical daily with Branch meals. hydrALAZINE 2020-0 Yes 50mg Take 50 mg [facility] 50 mg 3-07 by mouth 3 ity of tablet 00:01: (three) [place] 47 times Medical daily with Branch meals. hydrALAZINE 2020-0 Yes 50mg Take 50 mg [facility] 50 mg 3-07 by mouth 3 ity of tablet 00:01: ([facility]) [place] 47 times Medical daily with Branch meals. hydrALAZINE 2020-0 Yes 50mg Take 50 mg [facility] 50 mg 3-07 by mouth 3 ity of tablet 00:01: ([facility]) [place] [address] times Medical daily with Branch meals. hydrALAZINE 2020-0 Yes 50mg Take 50 mg [facility] 50 mg 3-07 by mouth 3 ity of tablet 00:01: ([facility]) [place] [address] times Medical daily with Branch meals. hydrALAZINE 2020-0 Yes 50mg Take 50 mg [facility] 50 mg 3-07 by mouth 3 ity of tablet 00:01: ([facility]) [place] [address] times Medical daily with Branch meals. hydrALAZINE 2020-0 Yes 50mg Take 50 mg [facility] 50 mg 3-07 by mouth 3 ity of tablet 00:01: ([facility]) [place] [address] times Medical daily with Branch meals. hydrALAZINE 2020-0 Yes 50mg Take 50 mg [facility] 50 mg 3-07 by mouth 3 ity of tablet 00:01: ([facility]) [place] 47 times Medical daily with Branch meals. hydrALAZINE 2020-0 Yes 50mg Take 50 mg [facility] 50 mg 3-07 by mouth 3 ity of tablet 00:01: ([facility]) [place] [address] times Medical daily with Branch meals. hydrALAZINE 2020-0 Yes 50mg Take 50 mg [facility] 50 mg 3-07 by mouth 3 ity of tablet 00:01: ([facility]) [place] [address] times Medical daily with Branch meals. hydrALAZINE 2020-0 Yes 50mg Take 50 mg [facility] 50 mg 3-07 by mouth 3 ity of tablet 00:01: ([facility]) [place] [address] times Medical daily with Branch meals. hydrALAZINE 2020-0 Yes 50mg Take 50 mg [facility] 50 mg 3-07 by mouth 3 ity of tablet 00:01: ([facility]) [place] 47 times Medical daily with Branch meals. hydrALAZINE 2020-0 Yes 50mg Take 50 mg [facility] 50 mg 3-07 by mouth 3 ity of tablet 00:01: (three) [place] 47 times Medical daily with Branch meals. hydrALAZINE 2020-0 Yes 50mg Take 50 mg [facility] 50 mg 3-07 by mouth 3 ity of tablet 00:01: (three) [place] 47 times Medical daily with Branch meals. hydrALAZINE 2020-0 Yes 50mg Take 50 mg [facility] 50 mg 3-07 by mouth 3 ity of tablet 00:01: (three) [place] 47 times Medical daily with Branch meals. hydrALAZINE 2020-0 Yes 50mg Take 50 mg [facility] 50 mg 3-07 by mouth 3 ity of tablet 00:01: ([facility]) [place] 47 times Medical daily with Branch meals. hydrALAZINE 2020-0 Yes 50mg Take 50 mg [facility] 50 mg 3-07 by mouth 3 ity of tablet 00:01: ([facility]) [place] [address] times Medical daily with Branch meals. hydrALAZINE 2020-0 Yes 50mg Take 50 mg [facility] 50 mg 3-07 by mouth 3 ity of tablet 00:01: (three) [place] [address] times Medical daily with Branch meals. hydrALAZINE 2020-0 Yes 50mg Take 50 mg [facility] 50 mg 3-07 by mouth 3 ity of tablet 00:01: (three) [place] [address] times Medical daily with Branch meals. hydrALAZINE 2020-0 Yes 50mg Take 50 mg [facility] 50 mg 3-07 by mouth 3 ity of tablet 00:01: (three) [place] 47 times Medical daily with Branch meals. hydrALAZINE 2020-0 Yes 50mg Take 50 mg [facility] 50 mg 3-07 by mouth 3 ity of tablet 00:01: (three) [place] [address] times Medical daily with Branch meals. hydrALAZINE 2020-0 Yes 50mg Take 50 mg [facility] 50 mg 3-07 by mouth 3 ity of tablet 00:01: (three) [place] [address] times Medical daily with Branch meals. hydrALAZINE 2020-0 Yes 50mg Take 50 mg [facility] 50 mg 3-07 by mouth 3 ity of tablet 00:01: (three) [place] [address] times Medical daily with Branch meals. hydrALAZINE 2020-0 Yes 50mg Take 50 mg [facility] 50 mg 3-07 by mouth 3 ity of tablet 00:01: (three) [place] 47 times Medical daily with Branch meals. hydrALAZINE 2020-0 Yes 50mg Take 50 mg [facility] 50 mg 3-07 by mouth 3 ity of tablet 00:01: (three) [place] 47 times Medical daily with Branch meals. hydrALAZINE 2020-0 Yes 50mg Take 50 mg [facility] 50 mg 3-07 by mouth 3 ity of tablet 00:01: (three) [place] 47 times Medical daily with Branch meals. hydrALAZINE 2020-0 Yes 50mg Take 50 mg [facility] 50 mg 3-07 by mouth 3 ity of tablet 00:01: (three) [place] 47 times Medical daily with Branch meals. hydrALAZINE 2020-0 Yes 50mg Take 50 mg [facility] 50 mg 3-07 by mouth 3 ity of tablet 00:01: (three) [place] 47 times Medical daily with Branch meals. hydrALAZINE 2020-0 Yes 50mg Take 50 mg [facility] 50 mg 3-07 by mouth 3 ity of tablet 00:01: (three) [place] 47 times Medical daily with Branch meals. hydrALAZINE 2020-0 Yes 50mg Take 50 mg [facility] 50 mg 3-07 by mouth 3 ity of tablet 00:01: (three) [place] 47 times Medical daily with Branch meals. hydrALAZINE 2020-0 Yes 50mg Take 50 mg [facility] 50 mg 3-07 by mouth 3 ity of tablet 00:01: (three) [place] 47 times Medical daily with Branch meals. hydrALAZINE 2020-0 Yes 50mg Take 50 mg [facility] 50 mg 3-07 by mouth 3 ity of tablet 00:01: (three) [place] 47 times Medical daily with Branch meals. nitroglycer 2020-[address] 0[address]3 U nivers in 0.3 mg 3-06 mg under ity of sublingual 23:52: the tongue [place] tablet 42 every 5 Medical (five) Branch minutes as needed for Chest pain. carvediloL 2020-0 Yes 25mg Take 25 mg U nivers 25 mg 3-06 by mouth 2 ity of tablet 19:16: (two) [place] 39 times Medical daily with Branch meals. proMETHazin 2020-0 Yes 12.5mg Take 12.5 Univers e 25 mg 3-06 mg by ity of tablet 19:16: mouth 3 [place] 39 (three) Medical times Branch daily as needed for Nausea and Vomiting (N/V). insulin 2020-0 Yes inject [facility] aspart 3-06 under the ity of U-100 19:16: skin. [place] (NOVOLOG 39 Medical FLEXPEN Branch U-100 INSULIN) [...] [place] unit/mL 04 Medical injection Branch carvedilol 2019-0 2020- No 25mg Take 25 mg Univers 12.5 mg -07 17-06 by mouth. ity of tablet 15:51: 00:00 [place] 24 :00 Medical Branch aspirin-nhi 2020-0 2020- No 1{tbl} Take 1 U nivers taminophen- -07 17-06 tablet by it y of caffeine 15:51: [...] 25mg Take 25 mg Univers 12.5 mg 3 03-06 by mouth. ity of tablet 15:51: [...] 25mg Take 25 mg [facility] 12.5 mg 04-19-06 by mouth. ity of tablet 15:51: 00:00 [place] 24 :00 Medical Branch aspirin-nhi 2020-0 2020- No 1{tbl} Take 1 U nivers taminophen- 3-06 03-06 tablet by it y of caffeine 15:51: 00:00 mouth [place] (EXCEDRIN 24 :00 every 6 Medical MIGRAINE) (six) Branch 250-250-65 hours as mg per needed for tablet Pain. SERTraline 2020-0 Yes [id number] 25mg Take 1 U nivers 25 mg 3-06 tablet by ity of tablet 00:00: mouth [place] 00 daily. Medical Branch SERTraline 2020-0 Yes [id number] 25mg Take 1 U nivers 25 mg 3-06 tablet by ity of tablet 00:00: mouth [place] 00 daily. Medical Branch SERTraline 2020-0 Yes [id number] 25mg Take 1 U nivers 25 mg 3-06 tablet by ity of tablet 00:00: mouth [place] 00 daily. Medical Branch SERTraline 2020-0 Yes [id number] 25mg Take 1 U nivers 25 mg 3-06 tablet by ity of tablet 00:00: mouth [place] 00 daily. Medical Branch SERTraline 2020-0 Yes [id number] 25mg Take 1 U nivers 25 mg 3-06 tablet by ity of tablet 00:00: mouth [place] 00 daily. Medical Branch SERTraline 2020-0 Yes [id number] 25mg Take 1 U nivers 25 mg 3-06 tablet by ity of tablet 00:00: mouth [place] 00 daily. Medical Branch SERTraline 2020-0 Yes [id number] 25mg Take 1 U nivers 25 mg 3-06 tablet by ity of tablet 00:00: mouth [place] 00 daily. Medical Branch SERTraline 2020-0 Yes [id number] 25mg Take 1 U nivers 25 mg 3-06 tablet by ity of tablet 00:00: mouth [place] 00 daily. Medical Branch SERTraline 2019-0 Yes [id number] 25mg Take 1 U nivers 25 mg 3-06 tablet by ity of tablet 00:00: mouth [place] 00 daily. Medical Branch SERTraline 2019-0 Yes [id number] 25mg Take 1 U nivers 25 mg 3-06 tablet by ity of tablet 00:00: mouth [place] 00 daily. Medical Branch SERTraline 2020-0 Yes [id number] 25mg Take 1 U nivers 25 mg 3-06 tablet by ity of tablet 00:00: mouth [place] 00 daily. Medical Branch SERTraline 2020-0 Yes [id number] 25mg Take 1 U nivers 25 mg 3-06 tablet by ity of tablet 00:00: mouth [place] 00 daily. Medical Branch SERTraline 2019-0 Yes [id number] 25mg Take 1 U nivers 25 mg 3-06 tablet by ity of tablet 00:00: mouth [place] 00 daily. Medical Branch SERTraline 2019-0 2020- No [id number] 25mg Take 1 [facility] 25 mg 3-06 05-21 tablet by ity of tablet 00:00: 00:00 mouth [place] 00 :00 daily. Medical Branch SERTraline 2020-0 2020- No [id number] 25mg Take 1 [facility] 25 mg 3-06 [...] ity of nasal spray 00:00: ONE [place] 00 NOSTRIL Medical EVERY 8 Branch HOURS NEEDED FOR HEADACHE butorphanol 2020-0 Yes USE 1 Unive rs 10 mg/mL 3-05 SPRAY IN ity of nasal spray 00:00: ONE [place] NOSTRIL Medical EVERY 8 Branch HOURS NEEDED FOR HEADACHE butorphanol 2020-0 Yes USE 1 Unive rs 10 mg/mL 3-05 SPRAY IN ity of nasal spray 00:00: ONE [place] NOSTRIL Medical EVERY 8 Branch HOURS NEEDED FOR HEADACHE butorphanol 2020-0 Yes USE 1 Unive rs 10 mg/mL 3-05 SPRAY IN ity of nasal spray 00:00: ONE [place] NOSTRIL Medical EVERY 8 Branch HOURS NEEDED FOR HEADACHE butorphanol 2020-0 Yes USE 1 Unive rs 10 mg/mL 3-05 SPRAY IN ity of nasal spray 00:00: ONE [place] NOSTRIL Medical EVERY 8 Branch HOURS NEEDED FOR HEADACHE butorphanol 2020-0 Yes USE 1 Unive rs 10 mg/mL 3-05 SPRAY IN ity of nasal spray 00:00: ONE [place] [id number] NOSTRIL Medical EVERY 8 Branch HOURS NEEDED FOR HEADACHE butorphanol 2020-0 Yes USE 1 Unive rs 10 mg/mL 3-05 SPRAY IN ity of nasal spray 00:00: ONE [place] [address] NOSTRIL Medical EVERY 8 Branch HOURS NEEDED FOR HEADACHE butorphanol 2020-0 Yes USE 1 Unive rs 10 mg/mL 3-05 SPRAY IN ity of nasal spray 00:00: ONE [place] [address] NOSTRIL Medical EVERY 8 Branch HOURS NEEDED FOR HEADACHE butorphanol 2020-0 Yes USE 1 Unive rs 10 mg/mL 3-05 SPRAY IN ity of nasal spray 00:00: ONE [place] [address] NOSTRIL Medical EVERY 8 Branch HOURS NEEDED FOR HEADACHE butorphanol 2020-0 Yes USE 1 Unive rs 10 mg/mL 3-05 SPRAY IN ity of nasal spray 00:00: ONE [place] [address] NOSTRIL Medical EVERY 8 Branch HOURS NEEDED FOR HEADACHE butorphanol 2020-0 2020- No USE 1 Univ ers 10 mg/mL 3-05 04-01 SPRAY IN ity of nasal spray 00:00: 00:00 ONE [place] 00 :00 NOSTRIL Medical EVERY 8 Branch [...] BY ity of tablet 00:00: MOUTH [place] 00 EVERYDAY Medical AT BEDTIME Branch AMITRIPTYLI 2020-0 Yes TAKE 1 Univ ers [place] 25 mg 3-02 TABLET BY ity of tablet 00:00: MOUTH [place] 00 EVERYDAY Medical AT BEDTIME Branch AMITRIPTYLI [...] BY ity of tablet 00:00: MOUTH [place] 00 EVERYDAY Medical AT BEDTIME Branch AMITRIPTYLI [...] BY ity of tablet 00:00: MOUTH [place] 00 EVERYDAY Medical AT BEDTIME Branch AMITRIPTYLI 2020-0 Yes TAKE 1 [facility] ers [place] 25 mg 3-02 TABLET BY ity of tablet 00:00: MOUTH [place] 00 EVERYDAY Medical AT BEDTIME Branch AMITRIPTYLI 2019-0 Yes TAKE 1 [facility] ers [place] 25 mg 3-02 TABLET BY ity of tablet 00:00: MOUTH [place] 00 EVERYDAY Medical AT BEDTIME Branch AMITRIPTYLI 2019-0 Yes TAKE 1 [facility] ers [place] 25 mg 3-02 TABLET BY ity of tablet 00:00: MOUTH [place] EVERYDAY Medical AT BEDTIME Branch AMITRIPTYLI 2019-0 2020- No TAKE 1 Uni vers [place] 25 mg 3-02 03-30 TABLET BY ity o f tablet 00:00: 00:00 MOUTH [place] 00 :00 EVERYDAY Medical AT BEDTIME Branch zolpidem 10 2019-0 Yes 10mg Take 10 mg [facility] mg tablet 3-01 by mouth ity of 00:00: at [place] [address] bedtime. I Medical ADVISE Branch AGAINST TAKING THIS MEDICATION DUE TO THE RISKS. [facility] zolpidem 10 0 Yes 10mg Take 10 mg [facility] mg tablet 3-01 by mouth ity of 00:00: at [place] [address] bedtime. I Medical ADVISE Branch AGAINST TAKING THIS MEDICATION DUE TO THE RISKS. [facility] zolpidem 10 2019-0 Yes 10mg Take 10 mg [facility] mg tablet 3-01 by mouth ity of 00:00: at [place] [address] bedtime. I Medical ADVISE Branch AGAINST TAKING THIS MEDICATION DUE TO THE RISKS. [facility] zolpidem 10 2019-0 Yes 10mg Take 10 mg [facility] mg tablet 3-01 by mouth ity of 00:00: at [place] [address] bedtime. I Medical ADVISE Branch AGAINST TAKING THIS MEDICATION DUE TO THE RISKS. [facility] zolpidem 10 2019-0 Yes 10mg Take 10 mg [facility] mg tablet 3-01 by mouth ity of 00:00: at [place] [address] bedtime. I Medical ADVISE Branch AGAINST TAKING THIS MEDICATION DUE TO THE RISKS. [facility] zolpidem 10 2019-0 Yes 10mg Take 10 mg [facility] mg tablet 3-01 by mouth ity of 00:00: at [place] [address] bedtime. I Medical ADVISE Branch AGAINST TAKING THIS MEDICATION DUE TO THE RISKS. [facility] zolpidem 10 2020-0 Yes 10mg Take 10 mg [facility] mg tablet 3-01 by mouth ity of 00:00: at [place] [address] bedtime. I Medical ADVISE Branch AGAINST TAKING THIS MEDICATION DUE TO THE RISKS. [facility] zolpidem 10 2020-0 Yes 10mg Take 10 mg [facility] mg tablet 3-01 by mouth ity of 00:00: at [place] [address] bedtime. I Medical ADVISE Branch AGAINST TAKING THIS MEDICATION DUE TO THE RISKS. [facility] zolpidem 10 2020-0 Yes 10mg Take 10 mg [facility] mg tablet 3-01 by mouth ity of 00:00: at [place] [address] bedtime. I Medical ADVISE Branch AGAINST TAKING THIS MEDICATION DUE TO THE RISKS. [facility] zolpidem 10 2020-0 Yes 10mg Take 10 mg [facility] mg tablet 3-01 by mouth ity of 00:00: at [place] [address] bedtime. I Medical ADVISE Branch AGAINST TAKING THIS MEDICATION DUE TO THE RISKS. [facility] zolpidem 10 2020-0 Yes 10mg Take 10 mg [facility] mg tablet 3-01 by mouth ity of 00:00: at [place] [address] bedtime. I Medical ADVISE Branch AGAINST TAKING THIS MEDICATION DUE TO THE RISKS. [facility] zolpidem 10 2020-0 Yes 10mg Take 10 mg [facility] mg tablet 3-01 by mouth ity of 00:00: at [place] [address] bedtime. I Medical ADVISE Branch AGAINST TAKING THIS MEDICATION DUE TO THE RISKS. [facility] zolpidem 10 2020-0 Yes 10mg Take 10 mg [facility] mg tablet 3-01 by mouth ity of 00:00: at [place] [address] bedtime. I Medical ADVISE Branch AGAINST TAKING THIS MEDICATION DUE TO THE RISKS. [facility] zolpidem 10 2020-0 Yes 10mg Take 10 mg [facility] mg tablet 3-01 by mouth ity of 00:00: at [place] [address] bedtime. I Medical ADVISE Branch AGAINST TAKING THIS MEDICATION DUE TO THE RISKS. [facility] zolpidem 10 2020-0 Yes 10mg Take 10 mg [facility] mg tablet 3-01 by mouth ity of 00:00: at [place] [address] bedtime. I Medical ADVISE Branch AGAINST TAKING THIS MEDICATION DUE TO THE RISKS. [facility] zolpidem 10 2020-0 Yes 10mg Take 10 mg [facility] mg tablet 3-01 by mouth ity of 00:00: at [place] [address] bedtime. I Medical ADVISE Branch AGAINST TAKING THIS MEDICATION DUE TO THE RISKS. [facility] zolpidem 10 2020-0 Yes 10mg Take 10 mg [facility] mg tablet 3-01 by mouth ity of 00:00: at [place] [address] bedtime. I Medical ADVISE Branch AGAINST TAKING THIS MEDICATION DUE TO THE RISKS. [facility] zolpidem 10 2020-0 Yes 10mg Take 10 mg [facility] mg tablet 3-01 by mouth ity of 00:00: at [place] [address] bedtime. I Medical ADVISE Branch AGAINST TAKING THIS MEDICATION DUE TO THE RISKS. [facility] zolpidem 10 2020-0 Yes 10mg Take 10 mg [facility] mg tablet 3-01 by mouth ity of 00:00: at [place] [address] bedtime. I Medical ADVISE Branch AGAINST TAKING THIS MEDICATION DUE TO THE RISKS. [facility] zolpidem 10 2020-0 Yes 10mg Take 10 mg [facility] mg tablet 3-01 by mouth ity of 00:00: at [place] [address] bedtime. I Medical ADVISE Branch AGAINST TAKING THIS MEDICATION DUE TO THE RISKS. [facility] zolpidem 10 2020-0 Yes 10mg Take 10 mg [facility] mg tablet 3-01 by mouth ity of 00:00: at [place] [address] bedtime. I Medical ADVISE Branch AGAINST TAKING THIS MEDICATION DUE TO THE RISKS. [facility] zolpidem 10 2020-0 Yes 10mg Take 10 mg [facility] mg tablet 3-01 by mouth ity of 00:00: at [place] [address] bedtime. [facility] zolpidem 10 2020-0 Yes 10mg Take 10 mg [facility] mg tablet 3-01 by mouth ity of 00:00: at [place] [address] bedtime. Medical Branch zolpidem 10 2020-0 Yes 10mg Take 10 mg [facility] mg tablet 3-01 by mouth ity of 00:00: at [place] [address] bedtime. Medical [place] zolpidem 10 2020-0 Yes 10mg Take 10 mg [facility] mg tablet 3-01 by mouth ity of 00:00: at [place] [address] bedtime. I Medical ADVISE Branch AGAINST TAKING THIS MEDICATION DUE TO THE RISKS. [facility] zolpidem 10 2020-0 Yes 10mg Take 10 mg [facility] mg tablet 3-01 by mouth ity of 00:00: at [place] [address] bedtime. I Medical ADVISE Branch AGAINST TAKING THIS MEDICATION DUE TO THE RISKS. [facility] zolpidem 10 2020-0 Yes 10mg Take 10 mg [facility] mg tablet 3-01 by mouth ity of 00:00: at [place] 00 bedtime. I Medical ADVISE Branch AGAINST TAKING THIS MEDICATION DUE TO THE RISKS. [facility] zolpidem 10 2020-0 Yes 10mg Take 10 mg [facility] mg tablet 3-01 by mouth ity of 00:00: at [place] 00 bedtime. I Medical ADVISE Branch AGAINST TAKING THIS MEDICATION DUE TO THE RISKS. [facility] zolpidem 10 2020-0 Yes 10mg Take 10 mg [facility] mg tablet 3-01 by mouth ity of 00:00: at [place] 00 bedtime. I Medical ADVISE Branch AGAINST TAKING THIS MEDICATION DUE TO THE RISKS. [facility] zolpidem 10 2020-0 Yes 10mg Take 10 mg [facility] mg tablet 3-01 by mouth ity of 00:00: at [place] [address] bedtime. I Medical ADVISE Branch AGAINST TAKING THIS MEDICATION DUE TO THE RISKS. [facility] zolpidem 10 2020-0 Yes 10mg Take 10 mg [facility] mg tablet 3-01 by mouth ity of 00:00: at [place] [address] bedtime. I Medical ADVISE Branch AGAINST TAKING THIS MEDICATION DUE TO THE RISKS. [facility] zolpidem 10 2020-0 Yes 10mg Take 10 mg [facility] mg tablet 3-01 by mouth ity of 00:00: at [place] [address] bedtime. I Medical ADVISE Branch AGAINST TAKING THIS MEDICATION DUE TO THE RISKS. [facility] zolpidem 10 2020-0 Yes 10mg Take 10 mg [facility] mg tablet 3-01 by mouth ity of 00:00: at [place] 00 bedtime. I Medical ADVISE Branch AGAINST TAKING THIS MEDICATION DUE TO THE RISKS. [facility] zolpidem 10 2020-0 Yes 10mg Take 10 mg [facility] mg tablet 3-01 by mouth ity of 00:00: at [place] [address] bedtime. I Medical ADVISE Branch AGAINST TAKING THIS MEDICATION DUE TO THE RISKS. [facility] zolpidem 10 2020-0 Yes 10mg Take 10 mg [facility] mg tablet 3-01 by mouth ity of 00:00: at [place] [address] bedtime. I Medical ADVISE Branch AGAINST TAKING THIS MEDICATION DUE TO THE RISKS. [facility] zolpidem 10 2020-0 Yes 10mg Take 10 mg [facility] mg tablet 3-01 by mouth ity of 00:00: at [place] [address] bedtime. I Medical ADVISE Branch AGAINST TAKING THIS MEDICATION DUE TO THE RISKS. [facility] zolpidem 10 2020-0 Yes 10mg Take 10 mg [facility] mg tablet 3-01 by mouth ity of 00:00: at [place] 00 bedtime. I Medical ADVISE Branch AGAINST TAKING THIS MEDICATION DUE TO THE RISKS. [facility] zolpidem 10 2020-0 Yes 10mg Take 10 mg [facility] mg tablet 3-01 by mouth ity of 00:00: at [place] 00 bedtime. I Medical ADVISE Branch AGAINST TAKING THIS MEDICATION DUE TO THE RISKS. [facility] zolpidem 10 2020-0 Yes 10mg Take 10 mg [facility] mg tablet 3-01 by mouth ity of 00:00: at [place] [address] bedtime. I Medical ADVISE Branch AGAINST TAKING THIS MEDICATION DUE TO THE RISKS. [facility] zolpidem 10 2020-0 Yes 10mg Take 10 mg [facility] mg tablet 3-01 by mouth ity of 00:00: at [place] [address] bedtime. I Medical ADVISE Branch AGAINST TAKING THIS MEDICATION DUE TO THE RISKS. [facility] zolpidem 10 2020-0 Yes 10mg Take 10 mg [facility] mg tablet 3-01 by mouth ity of 00:00: at [place] [address] bedtime. I Medical ADVISE Branch AGAINST TAKING THIS MEDICATION DUE TO THE RISKS. [facility] zolpidem 10 2020-0 Yes 10mg Take 10 mg [facility] mg tablet 3-01 by mouth ity of 00:00: at [place] [address] bedtime. I Medical ADVISE Branch AGAINST TAKING THIS MEDICATION DUE TO THE RISKS. [facility] zolpidem 10 2020-0 Yes 10mg Take 10 mg [facility] mg tablet 3-01 by mouth ity of 00:00: at [place] [address] bedtime. I Medical ADVISE Branch AGAINST TAKING THIS MEDICATION DUE TO THE RISKS. [facility] zolpidem 10 2020-0 Yes 10mg Take 10 mg [facility] mg tablet 3-01 by mouth ity of 00:00: at [place] 00 bedtime. I Medical ADVISE Branch AGAINST TAKING THIS MEDICATION DUE TO THE RISKS. [facility] zolpidem 10 2020-0 Yes 10mg Take 10 mg [facility] mg tablet 3-01 by mouth ity of 00:00: at [place] [address] bedtime. I Medical ADVISE Branch AGAINST TAKING THIS MEDICATION DUE TO THE RISKS. [facility] zolpidem 10 2020-0 Yes 10mg Take 10 mg [facility] mg tablet 3-01 by mouth ity of 00:00: at [place] [address] bedtime. I Medical ADVISE Branch AGAINST TAKING THIS MEDICATION DUE TO THE RISKS. [facility] zolpidem 10 2020-0 Yes 10mg Take 10 mg [facility] mg tablet 3-01 by mouth ity of 00:00: at [place] [address] bedtime. I Medical ADVISE Branch AGAINST TAKING THIS MEDICATION DUE TO THE RISKS. [facility] zolpidem 10 2020-0 Yes 10mg Take 10 mg [facility] mg tablet 3-01 by mouth ity of 00:00: at [place] [address] bedtime. I Medical ADVISE Branch AGAINST TAKING THIS MEDICATION DUE TO THE RISKS. [facility] zolpidem 10 2020-0 Yes 10mg Take 10 mg [facility] mg tablet 3-01 by mouth ity of 00:00: at [place] [address] bedtime. I Medical ADVISE Branch AGAINST TAKING THIS MEDICATION DUE TO THE RISKS. [facility] zolpidem 10 2020-0 Yes 10mg Take 10 mg [facility] mg tablet 3-01 by mouth ity of 00:00: at [place] [address] bedtime. I Medical ADVISE Branch AGAINST TAKING THIS MEDICATION DUE TO THE RISKS. [facility] zolpidem 10 2020-0 Yes 10mg Take 10 mg [facility] mg tablet 3-01 by mouth ity of 00:00: at [place] [address] bedtime. I Medical ADVISE Branch AGAINST TAKING THIS MEDICATION DUE TO THE RISKS. [facility] zolpidem 10 2020-0 Yes 10mg Take 10 mg [facility] mg tablet 3-01 by mouth ity of 00:00: at [place] [address] bedtime. I Medical ADVISE Branch AGAINST TAKING THIS MEDICATION DUE TO THE RISKS. [facility] zolpidem 10 2020-0 Yes 10mg Take 10 mg [facility] mg tablet 3-01 by mouth ity of 00:00: at [place] [address] bedtime. I Medical ADVISE Branch AGAINST TAKING THIS MEDICATION DUE TO THE RISKS. [facility] zolpidem 10 2020-0 Yes 10mg Take 10 mg [facility] mg tablet 3-01 by mouth ity of 00:00: at [place] [address] bedtime. I Medical ADVISE Branch AGAINST TAKING THIS MEDICATION DUE TO THE RISKS. [facility] zolpidem 10 2020-0 Yes 10mg Take 10 mg [facility] mg tablet 3-01 by mouth ity of 00:00: at [place] [address] bedtime. I Medical ADVISE Branch AGAINST TAKING THIS MEDICATION DUE TO THE RISKS. [facility] zolpidem 10 2020-0 Yes 10mg Take 10 mg [facility] mg tablet 3-01 by mouth ity of 00:00: at [place] 00 bedtime. I Medical ADVISE Branch AGAINST TAKING THIS MEDICATION DUE TO THE RISKS. [facility] zolpidem 10 2020-0 Yes 10mg Take 10 mg [facility] mg tablet 3-01 by mouth ity of 00:00: at [place] 00 bedtime. I Medical ADVISE Branch AGAINST TAKING THIS MEDICATION DUE TO THE RISKS. [facility] ondansetron 2020-0 Yes 4mg Take 4 [...] i ty of capsule 00:00: 00:00 MOUTH :00 TIMES A Medical DAY Branch NEEDED [...] mg by ity of tablet 00:00: mouth () Medical times Branch daily. cloNIDine 2020-0 Yes .3mg Take 0.3 Univ ers 0.3 mg 2-26 mg by ity of tablet 00:00: mouth () Medical times Branch daily. cloNIDine 2020-0 Yes .3mg Take 0.3 Univ ers 0.3 mg 2-26 mg by ity of tablet 00:00: mouth (three) Medical times Branch daily. cloNIDine 2020-0 Yes .3mg Take 0.3 Univ ers 0.3 mg 2-26 mg by ity of tablet 00:00: mouth () Medical times Branch daily. cloNIDine 2020-0 Yes [...] 0.3 mg 2-26 ity of tablet 00:00: [place] [facility] cloNIDine 2020-0 Yes Univers 0.3 [...] mg by ity of tablet 00:00: mouth [place] (three) Medical times Branch daily. cloNIDine 2020-0 Yes .3mg Take 0.3 Univ ers 0.3 mg 2-26 mg by ity of tablet 00:00: mouth (three) Medical times Branch daily. cloNIDine 2020-0 Yes .3mg Take 0.3 Univ ers 0.3 mg 2-26 mg by ity of tablet 00:00: mouth [place] (three) Medical times Branch daily. cloNIDine 2020-0 Yes .3mg Take 0.3 Univ ers 0.3 mg 2-26 mg by ity of tablet 00:00: mouth [place] (three) Medical times Branch daily. cloNIDine 2020-0 [...] mg by ity of tablet 00:00: mouth [place] (three) Medical times Branch daily. cloNIDine 2020-0 Yes .3mg Take 0.3 Univ ers 0.3 mg 2-26 mg by ity of tablet 00:00: mouth [place] (three) Medical times Branch daily. cloNIDine 2020-0 [...] of tablet 00:00: mouth at [place] [address] bedtime. Medical Branch butorphanol 2020-0 Yes USE 1 Unive rs 10 mg/mL 2-07 SPRAY IN ity of nasal spray 00:00: ONE [place] [address] NOSTRIL Medical EVERY 8 Branch HOURS NEEDED FOR HEADACHE amitriptyli 2020-0 Yes 25mg Take 1 Univ ers ne 25 mg 2-07 tablet by ity of tablet 00:00: mouth at [place] [address] bedtime. Medical Branch butorphanol 2020-0 Yes USE 1 Unive rs 10 mg/mL 2-07 SPRAY IN ity of nasal spray 00:00: ONE [place] [address] NOSTRIL Medical EVERY 8 Branch HOURS NEEDED FOR HEADACHE butorphanol 2020-0 Yes USE 1 Unive rs 10 mg/mL 2-07 SPRAY IN ity of nasal spray 00:00: ONE [place] [address] NOSTRIL Medical EVERY 8 Branch HOURS NEEDED FOR HEADACHE butorphanol 2020-0 2020- No USE 1 Univ ers 10 mg/mL 2-07 03-05 SPRAY IN ity of nasal spray 00:00: 00:00 ONE [place] 00 :00 NOSTRIL Medical EVERY 8 Branch HOURS NEEDED FOR HEADACHE butorphanol 2020-0 2020- No USE 1 Univ ers 10 mg/mL 2-07 03-05 SPRAY IN ity of nasal spray 00:00: 00:00 ONE [place] 00 :00 NOSTRIL Medical EVERY 8 Branch HOURS NEEDED FOR HEADACHE amitriptyli 2020-0 2020- No 25mg Take 1 Uni vers ne 25 mg 2- 03-02 tablet by ity o f tablet 00:00: 00:00 mouth at [place] 00 :00 bedtime. Medical Branch amLODIPine 2020-0 Yes 5mg Take 5 mg Un osbaldo 5 mg tablet 2-06 by mouth 2 it y of 00:00: (two) [place] 00 times Medical daily. Branch amLODIPine 2020-0 Yes 5mg Take 5 mg Un os[place] 5 mg tablet 2-06 by mouth 2 it y of 00:00: (two) [place] 00 times Medical daily. Branch amLODIPine 2020-0 Yes 5mg Take 5 mg Un os[place] 5 mg tablet 2-06 by mouth 2 it y of 00:00: (two) [place] 00 times Medical daily. Branch amLODIPine 2020-0 [...] 2 it y of 00:00: (two) [place] 00 times Medical daily. Branch amLODIPine 2020-0 Yes 5mg Take 5 mg Un os[place] 5 mg tablet 2-06 by mouth 2 it y of 00:00: (two) [place] 00 times Medical daily. Branch sotalol 80 2020-0 Yes 80mg Take 80 mg U nivers mg tablet 1-16 by mouth ity of 00:00: every 12 [place] [address] (twelve) Medical hours. Branch sotalol 80 2020-0 Yes 80mg Take 80 mg U nivers mg tablet 1-16 by mouth ity of 00:00: every 12 [place] [address] (twelve) Medical hours. Branch sotalol 80 2020-0 Yes 80mg Take 80 mg U nivers mg tablet 1-16 by mouth ity of 00:00: every 12 [place] [address] (twelve) Medical hours. Branch sotalol 80 2020-0 Yes 80mg Take 80 mg U nivers mg tablet 1-16 by mouth ity of 00:00: every 12 [place] [address] (twelve) Medical hours. Branch sotalol 80 2020-0 Yes 80mg Take 80 mg U nivers mg tablet 1-16 by mouth ity of 00:00: every 12 [place] [address] (twelve) Medical hours. Branch sotalol 80 2020-0 Yes 80mg Take 80 mg U nivers mg tablet 1-16 by mouth ity of 00:00: every 12 [place] [address] (twelve) Medical hours. Branch sotalol 80 2020-0 Yes 80mg Take 80 mg U nivers mg tablet 1-16 by mouth ity of 00:00: every 12 [place] 00 (twelve) Medical hours. Branch sotalol 80 2020-0 Yes 80mg Take 80 mg U nivers mg tablet 1-16 by mouth ity of 00:00: every 12 [place] 00 (twelve) Medical hours. Branch sotalol 80 2020-0 Yes 80mg Take 80 mg U nivers mg tablet 1-16 by mouth ity of 00:00: every 12 [place] [address] (twelve) Medical hours. Branch sotalol 80 2020-0 Yes 80mg Take 80 mg U nivers mg tablet 1-16 by mouth ity of 00:00: every 12 [place] 00 (twelve) Medical hours. Branch sotalol 80 2020-0 Yes 80mg Take 80 mg U nivers mg tablet 1-16 by mouth ity of 00:00: every 12 [place] 00 (twelve) Medical hours. Branch sotalol 80 2020-0 Yes 80mg Take 80 mg U nivers mg tablet 1-16 by mouth ity of 00:00: every 12 [place] 00 (twelve) Medical hours. Branch sotalol 80 2020-0 Yes 80mg Take 80 mg U nivers mg tablet 1-16 by mouth ity of 00:00: every 12 [place] 00 (twelve) Medical hours. Branch sotalol 80 2020-0 Yes 80mg Take 80 mg U nivers mg tablet 1-16 by mouth ity of 00:00: every 12 [place] 00 (twelve) Medical hours. Branch sotalol 80 2020-0 Yes 80mg Take 80 mg U nivers mg tablet 1-16 by mouth ity of 00:00: every 12 [place] 00 (twelve) Medical hours. Branch sotalol 80 2020-0 Yes 80mg Take 80 mg U nivers mg tablet 1-16 by mouth ity of 00:00: every 12 [place] 00 (twelve) Medical hours. Branch sotalol 80 2020-0 Yes 80mg Take 80 mg U nivers mg tablet 1-16 by mouth ity of 00:00: every 12 [place] 00 (twelve) Medical hours. Branch sotalol 80 2020-0 Yes 80mg Take 80 mg U nivers mg tablet 1-16 by mouth ity of 00:00: every 12 [place] 00 (twelve) Medical hours. Branch sotalol 80 2020-0 Yes 80mg Take 80 mg U nivers mg tablet 1-16 by mouth ity of 00:00: every 12 [place] 00 (twelve) Medical hours. Branch sotalol 80 2020-0 Yes 80mg Take 80 mg U nivers mg tablet 1-16 by mouth ity of 00:00: every 12 [place] 00 (twelve) Medical hours. Branch sotalol 80 2020-0 Yes 80mg Take 80 mg U nivers mg tablet 1-16 by mouth ity of 00:00: every 12 [place] 00 (twelve) Medical hours. Branch sotalol 80 2020-0 Yes Univers mg tablet 1-16 ity of 00:00: [place] 00 Medical Branch sotalol 80 2020-0 Yes Univers mg tablet 1-16 ity of 00:00: [place] 00 Medical Branch sotalol 80 2020-0 Yes 80mg Take 80 mg U nivers mg tablet 1-16 by mouth ity of 00:00: every 12 [place] 00 (twelve) Medical hours. Branch sotalol 80 2020-0 Yes 80mg Take 80 mg U nivers mg tablet 1-16 by mouth ity of 00:00: every 12 [place] 00 (twelve) Medical hours. Branch sotalol 80 2020-0 Yes 80mg Take 80 mg U nivers mg tablet 1-16 by mouth ity of 00:00: every 12 [place] 00 (twelve) Medical hours. Branch sotalol 80 2020-0 Yes 80mg Take 80 mg U nivers mg tablet 1-16 by mouth ity of 00:00: every 12 [place] 00 (twelve) Medical hours. Branch sotalol 80 2020-0 Yes 80mg Take 80 mg U nivers mg tablet 1-16 by mouth ity of 00:00: every 12 [place] 00 (twelve) Medical hours. Branch sotalol 80 2020-0 Yes 80mg Take 80 mg U nivers mg tablet 1-16 by mouth ity of 00:00: every 12 [place] 00 (twelve) Medical hours. Branch sotalol 80 2020-0 Yes 80mg Take 80 mg U nivers mg tablet 1-16 by mouth ity of 00:00: every 12 [place] 00 (twelve) Medical hours. Branch sotalol 80 2020-0 Yes 80mg Take 80 mg U nivers mg tablet 1-16 by mouth ity of 00:00: every 12 [place] 00 (twelve) Medical hours. Branch sotalol 80 2020-0 Yes 80mg Take 80 mg U nivers mg tablet 1-16 by mouth ity of 00:00: every 12 [place] 00 (twelve) Medical hours. Branch sotalol 80 2020-0 Yes 80mg Take 80 mg U nivers mg tablet 1-16 by mouth ity of 00:00: every 12 [place] 00 (twelve) Medical hours. Branch sotalol 80 2020-0 Yes 80mg Take 80 mg U nivers mg tablet 1-16 by mouth ity of 00:00: every 12 [place] 00 (twelve) Medical hours. Branch sotalol 80 2020-0 Yes 80mg Take 80 mg U nivers mg tablet 1-16 by mouth ity of 00:00: every 12 [place] 00 (twelve) Medical hours. Branch sotalol 80 2020-0 Yes 80mg Take 80 mg U nivers mg tablet 1-16 by mouth ity of 00:00: every 12 [place] 00 (twelve) Medical hours. Branch sotalol 80 2020-0 Yes 80mg Take 80 mg U nivers mg tablet 1-16 by mouth ity of 00:00: every 12 [place] 00 (twelve) Medical hours. Branch sotalol 80 2020-0 Yes 80mg Take 80 mg U nivers mg tablet 1-16 by mouth ity of 00:00: every 12 [place] 00 (twelve) Medical hours. Branch sotalol 80 2020-0 Yes 80mg Take 80 mg U nivers mg tablet 1-16 by mouth ity of 00:00: every 12 [place] 00 (twelve) Medical hours. Branch sotalol 80 2020-0 Yes 80mg Take 80 mg U nivers mg tablet 1-16 by mouth ity of 00:00: every 12 [place] 00 (twelve) Medical hours. Branch sotalol 80 2020-0 Yes 80mg Take 80 mg U nivers mg tablet 1-16 by mouth ity of 00:00: every 12 [place] 00 (twelve) Medical hours. Branch sotalol 80 2020-0 Yes 80mg Take 80 mg U nivers mg tablet 1-16 by mouth ity of 00:00: every 12 [place] 00 (twelve) Medical hours. Branch sotalol 80 2020-0 Yes 80mg Take 80 mg U nivers mg tablet 1-16 by mouth ity of 00:00: every 12 [place] 00 (twelve) Medical hours. Branch sotalol 80 2020-0 Yes 80mg Take 80 mg U nivers mg tablet 1-16 by mouth ity of 00:00: every 12 [place] 00 (twelve) Medical hours. Branch sotalol 80 2020-0 Yes 80mg Take 80 mg U nivers mg tablet 1-16 by mouth ity of 00:00: every 12 [place] 00 (twelve) Medical hours. Branch sotalol 80 2020-0 Yes 80mg Take 80 mg U nivers mg tablet 1-16 by mouth ity of 00:00: every 12 [place] 00 (twelve) Medical hours. Branch sotalol 80 2020-0 Yes 80mg Take 80 mg U nivers mg tablet 1-16 by mouth ity of 00:00: every 12 [place] 00 (twelve) Medical hours. Branch sotalol 80 2020-0 Yes 80mg Take 80 mg U nivers mg tablet 1-16 by mouth ity of 00:00: every 12 [place] 00 (twelve) Medical hours. Branch sotalol 80 2020-0 Yes 80mg Take 80 mg U nivers mg tablet 1-16 by mouth ity of 00:00: every 12 [place] 00 (twelve) Medical hours. Branch sotalol 80 2020-0 Yes 80mg Take 80 mg U nivers mg tablet 1-16 by mouth ity of 00:00: every 12 [place] 00 (twelve) Medical hours. Branch sotalol 80 2020-0 Yes 80mg Take 80 mg U nivers mg tablet 1-16 by mouth ity of 00:00: every 12 [place] 00 (twelve) Medical hours. Branch sotalol 80 2020-0 Yes 80mg Take 80 mg U nivers mg tablet 1-16 by mouth ity of 00:00: every 12 [place] [address] (twelve) Medical hours. Branch sotalol 80 2020-0 Yes 80mg Take 80 mg U nivers mg tablet 1-16 by mouth ity of 00:00: every 12 [place] 00 (twelve) Medical hours. Branch sotalol 80 2020-0 Yes 80mg Take 80 mg U nivers mg tablet 1-16 by mouth ity of 00:00: every 12 [place] 00 (twelve) Medical hours. Branch sotalol 80 2020-0 Yes 80mg Take 80 mg U nivers mg tablet 1-16 by mouth ity of 00:00: every 12 [place] [address] (twelve) Medical hours. Branch sotalol 80 2020-0 Yes 80mg Take 80 mg U nivers mg tablet 1-16 by mouth ity of 00:00: every 12 [place] 00 (twelve) Medical hours. Branch sotalol 80 2020-0 Yes 80mg Take 80 mg U nivers mg tablet 1-16 by mouth ity of 00:00: every 12 [place] 00 (twelve) Medical hours. Branch butorphanol 2018- Yes USE 1 Unive rs 10 mg/mL 2-20 SPRAY IN ity of nasal spray 00:00: ONE [place] [address] NOSTRIL Medical EVERY 8 Branch HOURS NEEDED FOR HEADACHE butorphanol 2018- Yes USE 1 Unive rs 10 mg/mL 2-20 SPRAY IN ity of nasal spray 00:00: ONE [place] [address] NOSTRIL Medical EVERY 8 Branch HOURS NEEDED FOR HEADACHE butorphanol 2018-02 Yes USE 1 Unive rs 10 mg/mL 2-20 SPRAY IN ity of nasal spray 00:00: ONE [place] [address] NOSTRIL Medical EVERY 8 Branch HOURS NEEDED FOR HEADACHE butorphanol 2018-02 Yes USE 1 Unive rs 10 mg/mL 2-20 SPRAY IN ity of nasal spray 00:00: ONE [place] [address] NOSTRIL Medical EVERY 8 Branch HOURS NEEDED FOR HEADACHE butorphanol 2018-02 Yes USE 1 Unive rs 10 mg/mL 2-20 SPRAY IN ity of nasal spray 00:00: ONE [place] NOSTRIL Medical EVERY 8 Branch HOURS NEEDED FOR HEADACHE butorphanol 2018-02 2020- No USE 1 Univ ers 10 mg/mL 2-20 02-07 SPRAY IN ity of nasal spray 00:00: 00:00 ONE [place] 00 :00 NOSTRIL Medical EVERY 8 Branch HOURS NEEDED FOR HEADACHE butorphanol 2018-02 2020- No USE 1 Univ ers 10 mg/mL 2-20 02-07 SPRAY IN ity of nasal spray 00:00: 00:00 ONE [place] 00 :00 NOSTRIL Medical EVERY 8 Branch HOURS NEEDED FOR HEADACHE pantoprazol 2018-02 Yes 40mg Take 40 mg Univers e 40 mg EC 2-17 by mouth ity o f tablet 00:00: daily. [address] pantoprazol 2018-02 Yes 40mg Take 40 mg Univers e 40 mg EC 2-17 by mouth ity o f tablet 00:00: daily. [address] pantoprazol 2018-02 Yes 40mg Take 40 mg Univers e 40 mg EC 2-17 by mouth ity o f tablet 00:00: daily. [address] pantoprazol 2018-02 Yes 40mg Take 40 mg Univers e 40 mg EC 2-17 by mouth ity o f tablet 00:00: daily. [address] pantoprazol 2018-02 Yes 40mg Take 40 mg Univers e 40 mg EC 2-17 by mouth ity o f tablet 00:00: daily. [address] pantoprazol 2018-02 Yes 40mg Take 40 mg Univers e 40 mg EC 2-17 by mouth ity o f tablet 00:00: daily. [address] pantoprazol 2018-02 Yes 40mg Take 40 mg Univers e 40 mg EC 2-17 by mouth ity o f tablet 00:00: daily. [place] [facility] pantoprazol 2018-02 Yes 40mg Take 40 mg Univers e 40 mg EC 2-17 by mouth ity o f tablet 00:00: daily. [place] [facility] pantoprazol 2018-02 Yes 40mg Take 40 mg Univers e 40 mg EC 2-17 by mouth ity o f tablet 00:00: daily. [place] [facility] pantoprazol 2018-02 Yes 40mg Take 40 mg Univers e 40 mg EC 2-17 by mouth ity o f tablet 00:00: daily. [place] [facility] pantoprazol 2018-02 Yes 40mg Take 40 mg Univers e 40 mg EC 2-17 by mouth ity o f tablet 00:00: daily. [place] [facility] pantoprazol 2018-02 Yes 40mg Take 40 mg Univers e 40 mg EC 2-17 by mouth ity o f tablet 00:00: daily. [place] [facility] pantoprazol 2018-02 Yes 40mg Take 40 mg Univers e 40 mg EC 2-17 by mouth ity o f tablet 00:00: daily. [place] [facility] pantoprazol 2018-02 Yes 40mg Take 40 mg Univers e 40 mg EC 2-17 by mouth ity o f tablet 00:00: daily. [place] [facility] pantoprazol 2018-02 Yes 40mg Take 40 mg Univers e 40 mg EC 2-17 by mouth ity o f tablet 00:00: daily. [place] [facility] pantoprazol 2018-02 Yes 40mg Take 40 mg Univers e 40 mg EC 2-17 by mouth ity o f tablet 00:00: daily. [place] [facility] pantoprazol 2018-02 Yes 40mg Take 40 mg Univers e 40 mg EC 2-17 by mouth ity o f tablet 00:00: daily. [place] [facility] pantoprazol 2018-02 Yes 40mg Take 40 mg Univers e 40 mg EC 2-17 by mouth ity o f tablet 00:00: daily. [place] [facility] pantoprazol 2018-02 Yes 40mg Take 40 mg Univers e 40 mg EC 2-17 by mouth ity o f tablet 00:00: daily. [place] [facility] pantoprazol 2018-02 Yes 40mg Take 40 mg Univers e 40 mg EC 2-17 by mouth ity o f tablet 00:00: daily. [address] pantoprazol 2018-02 Yes 40mg Take 40 mg Univers e 40 mg EC 2-17 by mouth ity o f tablet 00:00: daily. [place] [facility] pantoprazol 2018-02 Yes 40mg Take 40 mg Univers e 40 mg EC 2-17 by mouth ity o f tablet 00:00: daily. [place] [facility] pantoprazol 2018-02 Yes 40mg Take 40 mg Univers e 40 mg EC 2-17 by mouth ity o f tablet 00:00: daily. [place] [facility] pantoprazol 2018-02 Yes 40mg Take 40 mg Univers e 40 mg EC 2-17 by mouth ity o f tablet 00:00: daily. [place] [facility] pantoprazol 2018-02 Yes 40mg Take 40 mg Univers e 40 mg EC 2-17 by mouth ity o f tablet 00:00: daily. [address] pantoprazol 2018-02 Yes 40mg Take 40 mg Univers e 40 mg EC 2-17 by mouth ity o f tablet 00:00: daily. [place] [facility] pantoprazol 2018-02 Yes 40mg Take 40 mg Univers e 40 mg EC 2-17 by mouth ity o f tablet 00:00: daily. [place] [facility] pantoprazol 2018-02 Yes 40mg Take 40 mg Univers e 40 mg EC 2-17 by mouth ity o f tablet 00:00: daily. [address] pantoprazol 2018-02 Yes 40mg Take 40 mg Univers e 40 mg EC 2-17 by mouth ity o f tablet 00:00: daily. [address] pantoprazol 2018-02 Yes 40mg Take 40 mg Univers e 40 mg EC 2-17 by mouth ity o f tablet 00:00: daily. [place] [facility] pantoprazol 2018-02 Yes 40mg Take 40 mg Univers e 40 mg EC 2-17 by mouth ity o f tablet 00:00: daily. [address] pantoprazol 2018-02 Yes 40mg Take 40 mg Univers e 40 mg EC 2-17 by mouth ity o f tablet 00:00: daily. [address] pantoprazol 2018-02 Yes 40mg Take 40 mg Univers e 40 mg EC 2-17 by mouth ity o f tablet 00:00: daily. [address] pantoprazol 2018-02 Yes 40mg Take 40 mg Univers e 40 mg EC 2-17 by mouth ity o f tablet 00:00: daily. [place] [facility] pantoprazol 2018-02 Yes 40mg Take 40 mg Univers e 40 mg EC 2-17 by mouth ity o f tablet 00:00: daily. [place] [facility] pantoprazol 2018-02 Yes 40mg Take 40 mg Univers e 40 mg EC 2-17 by mouth ity o f tablet 00:00: daily. [place] [facility] pantoprazol 2018-02 Yes 40mg Take 40 mg Univers e 40 mg EC 2-17 by mouth ity o f tablet 00:00: daily. [place] [facility] pantoprazol 2018-02 Yes 40mg Take 40 mg Univers e 40 mg EC 2-17 by mouth ity o f tablet 00:00: daily. [place] [facility] pantoprazol 2018-02 Yes 40mg Take 40 mg Univers e 40 mg EC 2-17 by mouth ity o f tablet 00:00: daily. [place] [facility] pantoprazol 2018-02 Yes 40mg Take 40 mg Univers e 40 mg EC 2-17 by mouth ity o f tablet 00:00: daily. [place] [facility] pantoprazol 2018-02 Yes 40mg Take 40 mg Univers e 40 mg EC 2-17 by mouth ity o f tablet 00:00: daily. [place] [facility] pantoprazol 2018-02 Yes 40mg Take 40 mg Univers e 40 mg EC 2-17 by mouth ity o f tablet 00:00: daily. [address] pantoprazol 2018-02 Yes 40mg Take 40 mg Univers e 40 mg EC 2-17 by mouth ity o f tablet 00:00: daily. [place] [facility] pantoprazol 2018-02 Yes 40mg Take 40 mg Univers e 40 mg EC 2-17 by mouth ity o f tablet 00:00: daily. [place] [facility] pantoprazol 2018-02 Yes 40mg Take 40 mg Univers e 40 mg EC 2-17 by mouth ity o f tablet 00:00: daily. [address] pantoprazol 2018-02 Yes 40mg Take 40 mg Univers e 40 mg EC 2-17 by mouth ity o f tablet 00:00: daily. [address] pantoprazol 2018-02 Yes 40mg Take 40 mg Univers e 40 mg EC 2-17 by mouth ity o f tablet 00:00: daily. [address] pantoprazol 2018-02 Yes 40mg Take 40 mg Univers e 40 mg EC 2-17 by mouth ity o f tablet 00:00: daily. [place] [facility] pantoprazol 2018-02 Yes 40mg Take 40 mg Univers e 40 mg EC 2-17 by mouth ity o f tablet 00:00: daily. [place] [facility] pantoprazol 2018-02 Yes 40mg Take 40 mg Univers e 40 mg EC 2-17 by mouth ity o f tablet 00:00: daily. [place] [facility] pantoprazol 2018-02 Yes 40mg Take 40 mg Univers e 40 mg EC 2-17 by mouth ity o f tablet 00:00: daily. [place] [facility] pantoprazol 2018-02 Yes 40mg Take 40 mg Univers e 40 mg EC 2-17 by mouth ity o f tablet 00:00: daily. [place] [facility] pantoprazol 2018-02 Yes 40mg Take 40 mg Univers e 40 mg EC 2-17 by mouth ity o f tablet 00:00: daily. [place] [facility] pantoprazol 2018-02 Yes 40mg Take 40 mg Univers e 40 mg EC 2-17 by mouth ity o f tablet 00:00: daily. [place] [facility] pantoprazol 2018-02 Yes 40mg Take 40 mg Univers e 40 mg EC 2-17 by mouth ity o f tablet 00:00: daily. [place] [facility] busPIRone 5 2018-02 Yes [id number] TAKE 1 Univers mg tablet 0- 9102 TABLET BY ity o f 00:00: MOUTH TWICE A Medical DAY Branch busPIRone 5 2018-02 Yes [id number] TAKE 1 Univers mg tablet 0- 9102 TABLET BY ity o f 00:00: MOUTH TWICE A Medical DAY Branch busPIRone 5 2018-02 Yes [id number] TAKE 1 Univers mg tablet 0-01 9102 TABLET BY ity o f 00:00: MOUTH TWICE A Medical DAY Branch busPIRone 5 2018-02 Yes [id number] TAKE 1 Univers mg tablet 0-01 9102 TABLET BY ity o f 00:00: MOUTH TWICE A Medical DAY Branch busPIRone 5 2018-02 Yes [id number] TAKE 1 Univers mg tablet 0- 9102 TABLET BY ity o f 00:00: MOUTH [place] 00 TWICE A Medical DAY Branch busPIRone 5 2018-02 Yes [id number] TAKE 1 Univers mg tablet 0- 9102 TABLET BY ity o f 00:00: MOUTH [place] 00 TWICE A Medical DAY Branch busPIRone 5 2018-02 Yes [id number] TAKE 1 Univers mg tablet 0- 9102 TABLET BY ity o f 00:00: MOUTH 00 TWICE A Medical DAY Branch busPIRone 5 2018-02 Yes [id number] TAKE 1 Univers mg tablet 0- 9102 TABLET BY ity o f 00:00: MOUTH [place] 00 TWICE A Medical DAY Branch busPIRone 5 2018-02 Yes [id number] TAKE 1 Univers mg tablet 0- 9102 TABLET BY ity o f 00:00: MOUTH 00 TWICE A Medical DAY Branch busPIRone 5 2018-02 Yes [id number] TAKE 1 Univers mg tablet 0- 9102 TABLET BY ity o f 00:00: MOUTH 00 TWICE A Medical DAY Branch busPIRone 5 2018-02 Yes [id number] TAKE 1 Univers mg tablet 0- 9102 TABLET BY ity o f 00:00: MOUTH 00 TWICE A Medical DAY Branch busPIRone 5 2018-02 Yes [id number] TAKE 1 Univers mg tablet 0- 9102 TABLET BY ity o f 00:00: MOUTH 00 TWICE A Medical DAY Branch busPIRone 5 2018-02 Yes [id number] TAKE 1 Univers mg tablet 0- 9102 TABLET BY ity o f 00:00: MOUTH 00 TWICE A Medical DAY Branch busPIRone 5 2018-02 2020- No [id number] TAKE 1 Univers mg tablet 0-04-19 9102 TABLET BY ity of 00:00: 00:00 MOUTH [place] 00 :00 TWICE A Medical DAY Branch BUSPIRONE 5 Yes [id number] TAKE 1 Univers mg tablet 09-08 9102 TABLET BY ity o f 00:00: MOUTH 00 TWICE A Medical DAY Branch butorphanol 2018- Yes [id number] 1{spray Use 1 Univers 10 mg/mL 08-21 } [place] in ity of nasal spray 00:00: each [...] ity of human, 100 18:55: skin. [place] unit/mL 56 Medical injection Branch insulin 0 [...] ity of human, 100 18:55: skin. [place] unit/mL 56 Medical injection Branch insulin 2018-0 Yes 60U inject 60 Unive rs detemir 5-14 Units ity of U-100 100 18:55: under the [place] unit/mL 56 skin. Medical injection Branch insulin 0 Yes inject Univers lispro, 5-14 under the ity of human, 100 18:55: skin. [place] unit/mL 56 Medical injection Branch insulin 0 Yes 60U inject 60 Unive rs detemir 5-14 Units ity of U-100 100 18:55: under the [place] unit/mL 56 skin. Medical injection Branch insulin 0 Yes inject Univers lispro, 5-14 under the ity of human, 100 18:55: skin. [place] unit/mL 56 Medical injection Branch insulin 0 Yes 60U inject 60 Unive rs detemir 5-14 Units ity of U-100 100 18:55: under the [place] unit/mL 56 skin. Medical injection Branch insulin 0 Yes inject Univers lispro, 5-14 under the ity of human, 100 18:55: skin. [place] unit/mL 56 Medical injection Branch insulin 0 Yes 60U inject 60 Unive rs detemir 5-14 Units ity of U-100 100 18:55: under the [place] as unit/mL 56 skin. Medical injection Branch insulin 0 Yes inject Univers lispro, 5-14 under the ity of human, 100 18:55: skin. [place] unit/mL 56 Medical injection Branch pregabalin 0 Yes 300mg Take 300 Un osbaldo 300 mg 5-14 mg by ity of capsule 17:05: mouth. [address] hydrALAZINE 0 Yes 50mg Take 50 mg Univers 50 mg 5-14 by mouth. ity of tablet 17:05: [address] losartan-hy 0 Yes Take by Uni vers drochloroth 5-14 mouth. ity of iazide 17:05: [place] [address] [facility] per tablet [place] carvedilol 2018-0 Yes 25mg Take 25 mg U nivers 12.5 mg 5-14 by mouth. ity of tablet 17:05: [address] acetaminoph 0 Yes 500mg Take 500 [...] mg by ity of capsule 17:05: mouth. [address] Branch hydrALAZINE 2018-0 Yes 50mg Take 50 mg Univers 50 mg 5-14 by mouth. ity of tablet 17:05: [address] Branch losartan-hy 2018-0 Yes Take by Uni vers drochloroth 5-14 mouth. ity of iazide 17:05: [place] 100-25 mg 39 Medical per tablet Branch carvedilol 2018-0 Yes 25mg Take 25 mg U nivers 12.5 mg 5-14 by mouth. ity of tablet 17:05: [address] Branch acetaminoph 2019-0 Yes 500mg [...] mg by ity of capsule 17:05: mouth. [address] Branch hydrALAZINE Yes 50mg Take 50 mg Univers 50 mg 5-14 by mouth. ity of tablet 17:05: [address] losartan-hy Yes Take by Uni vers drochloroth 5-14 mouth. ity of iazide 17:05: [place] 100-25 mg 39 Medical per tablet Branch carvedilol Yes 25mg Take 25 mg U nivers 12.5 mg 5-14 by mouth. ity of tablet 17:05: [address] Branch acetaminoph Yes 500mg Take [...] mg by ity of capsule 17:05: mouth. [address] pregabalin Yes 300mg Take 300 Un osbaldo 300 mg 5-14 mg by ity of capsule 17:05: mouth. [address] Branch hydrALAZINE Yes 50mg Take 50 mg Univers 50 mg 5-14 by mouth. ity of tablet 17:05: [address] losartan-hy Yes Take by Uni vers drochloroth 5-14 mouth. ity of iazide 17:05: [place] 100-25 mg 39 Medical per tablet Branch hydrALAZINE 0 Yes 50mg Take 50 mg Univers 50 mg 5-14 by mouth. ity of tablet 17:05: [address] carvedilol Yes 25mg Take 25 mg U nivers 12.5 mg 5-14 by mouth. ity of tablet 17:05: [address] Branch acetaminoph [address] Yes 500mg Take 500 [...] 5-14 mouth. ity of iazide 17:05: [place] 100-25 mg 39 Medical per tablet Branch pregabalin 0 Yes 300mg Take 300 Un osbaldo 300 mg 5-14 mg by ity of capsule 17:05: mouth. [address] Branch hydrALAZINE 0 Yes 50mg Take 50 mg Univers 50 mg 5-14 by mouth. ity of tablet 17:05: [address] losartan-hy 0 Yes Take by Uni vers drochloroth 5-14 mouth. ity of iazide 17:05: [place] 100-25 mg 39 Medical per tablet Branch carvedilol 0 Yes 25mg Take 25 mg U nivers 12.5 mg 5-14 by mouth. ity of tablet 17:05: [address] acetaminoph [address] Yes 500mg Take 500 U [...] mg by ity of capsule 17:05: mouth. [address] Branch hydrALAZINE 0 Yes 50mg Take 50 mg Univers 50 mg 5-14 by mouth. ity of tablet 17:05: [address] Branch losartan-hy 2018-0 Yes Take by Uni vers drochloroth 5-14 mouth. ity of iazide 17:05: [place] 100-25 mg 39 Medical per tablet Branch carvedilol 2018-0 Yes 25mg Take 25 mg U nivers 12.5 mg 5-14 by mouth. ity of tablet 17:05: [address] Branch acetaminoph 0 Yes 500mg [...] 5-14 by mouth. ity of tablet 17:05: [address] Branch pregabalin 2019-0 Yes 300mg Take 300 Un osbadlo 300 mg 5-14 mg by ity of capsule 17:05: mouth. [address] hydrALAZINE 0 Yes 50mg Take 50 mg Univers 50 mg 5-14 by mouth. ity of tablet 17:05: [address] Branch losartan-hy 2019-0 Yes Take [...] mg by ity of capsule 17:05: mouth. [place] [address] Medical Branch hydrALAZINE 0 Yes 50mg Take 50 mg Univers 50 mg 5-14 by mouth. ity of tablet 17:05: [place] [address] Medical Branch losartan-hy 0 Yes Take by Uni [...] mg by ity of capsule 17:05: mouth. [address] Branch hydrALAZINE 0 Yes 50mg Take 50 mg Univers 50 mg 5-14 by mouth. ity of tablet 17:05: [address] losartan-hy 0 Yes Take by Uni vers drochloroth 5-14 mouth. ity of iazide 17:05: [place] 100-25 mg 39 Medical per tablet Branch carvedilol 0 Yes 25mg Take 25 mg U nivers 12.5 mg 5-14 by mouth. ity of tablet 17:05: [address] Branch acetaminoph 0 Yes 500mg [...] mg by ity of capsule 17:05: mouth. [address] Branch hydrALAZINE 0 Yes 50mg Take 50 mg Univers 50 mg 5-14 by mouth. ity of tablet 17:05: [address] Branch losartan-hy 0 Yes Take by Uni vers drochloroth 5-14 mouth. ity of iazide 17:05: [place] 100-25 mg 39 Medical per tablet Branch carvedilol 0 Yes 25mg Take 25 mg U nivers 12.5 mg 5-14 by mouth. ity of tablet 17:05: [address] Branch acetaminoph 0 Yes 500mg [...] mg by ity of capsule 17:05: mouth. [address] Branch hydrALAZINE 2018-0 Yes 50mg Take 50 mg Univers 50 mg 5-14 by mouth. ity of tablet 17:05: [address] Branch losartan-hy 0 Yes Take by Uni vers drochloroth 5-14 mouth. ity of iazide 17:05: [place] 100-25 mg 39 Medical per tablet Branch carvedilol 0 Yes 25mg Take 25 mg U nivers 12.5 mg 5-14 by mouth. ity of tablet 17:05: [address] Branch acetaminoph 2018-0 Yes 500mg Take 500 U nivers en (TYLENOL 5-14 mg by ity of EXTRA 17:05: mouth [place] STRENGTH) 39 every 6 Medical 500 mg (six) Branch tablet hours as needed for Pain. aspirin-nhi 2018-0 Yes 1{tbl} Take 1 Un osbaldo taminophen- 5-14 tablet by ity of caffeine 17:05: mouth [place] (EXCEDRIN 39 every 6 Medical MIGRAINE) (six) [...] mg by ity of capsule 17:05: mouth. [address] Branch hydrALAZINE 2018-0 Yes 50mg Take 50 mg Univers 50 mg 5-14 by mouth. ity of tablet 17:05: [address] Branch losartan-hy Yes Take by Uni vers drochloroth 5-14 mouth. ity of iazide 17:05: [place] 100-25 mg 39 Medical per tablet Branch carvedilol Yes 25mg Take 25 mg U nivers 12.5 mg 5-14 by mouth. ity of tablet 17:05: [address] Branch acetaminoph Yes 500mg Take [...] for Chest pain. busPIRone 5 2019- No [id number] 5mg Take 1 Univers mg tablet 5-14 09-0802 tablet by ity of 00:00: 00:00 mouth 2 [place] 00 :00 (two) Medical times Branch daily. methIMAzole Yes 10mg Take 10 mg Univers 10 mg 4-24 by mouth ity of tablet 00:00: daily. [address] methIMAzole Yes 10mg Take 10 mg Univers 10 mg 4-24 by mouth ity of tablet 00:00: daily. [address] methIMAzole Yes 10mg Take 10 mg Univers 10 mg 4-24 by mouth ity of tablet 00:00: daily. [address] methIMAzole Yes 10mg Take 10 mg Univers 10 mg 4-24 by mouth ity of tablet 00:00: daily. [address] methIMAzole Yes 10mg Take 10 mg Univers 10 mg 4-24 by mouth ity of tablet 00:00: daily. [address] methIMAzole 2019-0 Yes 10mg Take 10 mg Univers 10 mg 4-24 by mouth ity of tablet 00:00: daily. [facility] methIMAzole 2019-0 Yes 10mg Take 10 mg Univers 10 mg 4-24 by mouth ity of tablet 00:00: daily. [facility] methIMAzole 2019-0 Yes 10mg Take 10 mg Univers 10 mg 4-24 by mouth ity of tablet 00:00: daily. [facility] methIMAzole 2018-0 Yes 10mg Take 10 mg Univers 10 mg 4-24 by mouth ity of tablet 00:00: daily. [facility] methIMAzole 2018-0 Yes 10mg Take 10 mg Univers 10 mg 4-24 by mouth ity of tablet 00:00: daily. [facility] methIMAzole 2018-0 Yes 10mg Take 10 mg Univers 10 mg 4-24 by mouth ity of tablet 00:00: daily. [facility] methIMAzole 2018-0 Yes 10mg Take 10 mg Univers 10 mg 4-24 by mouth ity of tablet 00:00: daily. [facility] methIMAzole 2018-0 Yes 10mg Take 10 mg Univers 10 mg 4-24 by mouth ity of tablet 00:00: daily. [facility] methIMAzole 2019-0 Yes 10mg Take 10 mg Univers 10 mg 4-24 by mouth ity of tablet 00:00: daily. [facility] methIMAzole 2019-0 Yes 10mg Take 10 mg Univers 10 mg 4-24 by mouth ity of tablet 00:00: daily. [facility] methIMAzole 2019-0 Yes 10mg Take 10 mg Univers 10 mg 4-24 by mouth ity of tablet 00:00: daily. [facility] methIMAzole 2019-0 Yes 10mg Take 10 mg Univers 10 mg 4-24 by mouth ity of tablet 00:00: daily. [facility] methIMAzole 2019-0 Yes 10mg Take 10 mg Univers 10 mg 4-24 by mouth ity of tablet 00:00: daily. [place] [facility] methIMAzole 2019-0 Yes 10mg Take 10 mg Univers 10 mg 4-24 by mouth ity of tablet 00:00: daily. [facility] methIMAzole 2019-0 Yes 10mg Take 10 mg Univers 10 mg 4-24 by mouth ity of tablet 00:00: daily. [facility] methIMAzole 2018-0 Yes 10mg Take 10 mg Univers 10 mg 4-24 by mouth ity of tablet 00:00: daily. [facility] methIMAzole 2018-0 Yes 10mg Take 10 mg Univers 10 mg 4-24 by mouth ity of tablet 00:00: daily. [facility] methIMAzole 2018-0 Yes 10mg Take 10 mg Univers 10 mg 4-24 by mouth ity of tablet 00:00: daily. [facility] methIMAzole 2018-0 Yes 10mg Take 10 mg Univers 10 mg 4-24 by mouth ity of tablet 00:00: daily. [place] [facility] methIMAzole 2018-0 Yes 10mg Take 10 mg Univers 10 mg 4-24 by mouth ity of tablet 00:00: daily. [place] [facility] methIMAzole 2018-0 Yes 10mg Take 10 mg Univers 10 mg 4-24 by mouth ity of tablet 00:00: daily. [facility] methIMAzole 2018-0 Yes 10mg Take 10 mg Univers 10 mg 4-24 by mouth ity of tablet 00:00: daily. [facility] methIMAzole 2018-0 Yes 10mg Take 10 mg Univers 10 mg 4-24 by mouth ity of tablet 00:00: daily. [place] [facility] methIMAzole 2018-0 Yes 10mg Take 10 mg Univers 10 mg 4-24 by mouth ity of tablet 00:00: daily. [place] [facility] methIMAzole 2018-0 Yes 10mg Take 10 mg Univers 10 mg 4-24 by mouth ity of tablet 00:00: daily. [facility] methIMAzole 2018-0 Yes 10mg Take 10 mg Univers 10 mg 4-24 by mouth ity of tablet 00:00: daily. [place] [facility] methIMAzole 2019-0 Yes 10mg Take 10 mg Univers 10 mg 4-24 by mouth ity of tablet 00:00: daily. [place] [facility] methIMAzole 2018-0 Yes 10mg Take 10 mg Univers 10 mg 4-24 by mouth ity of tablet 00:00: daily. [facility] methIMAzole 2018-0 Yes 10mg Take 10 mg Univers 10 mg 4-24 by mouth ity of tablet 00:00: daily. [facility] methIMAzole 2019-0 Yes 10mg Take 10 mg Univers 10 mg 4-24 by mouth ity of tablet 00:00: daily. [facility] methIMAzole 2019-0 Yes 10mg Take 10 mg Univers 10 mg 4-24 by mouth ity of tablet 00:00: daily. [facility] methIMAzole 2019-0 Yes 10mg Take 10 mg Univers 10 mg 4-24 by mouth ity of tablet 00:00: daily. [facility] methIMAzole 2019-0 Yes 10mg Take 10 mg Univers 10 mg 4-24 by mouth ity of tablet 00:00: daily. [facility] methIMAzole 2019-0 Yes 10mg Take 10 mg Univers 10 mg 4-24 by mouth ity of tablet 00:00: daily. [facility] methIMAzole 2019-0 Yes 10mg Take 10 mg Univers 10 mg 4-24 by mouth ity of tablet 00:00: daily. [place] [facility] methIMAzole 2019-0 Yes 10mg Take 10 mg Univers 10 mg 4-24 by mouth ity of tablet 00:00: daily. [place] [facility] methIMAzole 2019-0 Yes 10mg Take 10 mg Univers 10 mg 4-24 by mouth ity of tablet 00:00: daily. [facility] methIMAzole 2019-0 Yes 10mg Take 10 mg Univers 10 mg 4-24 by mouth ity of tablet 00:00: daily. [place] [facility] methIMAzole 2019-0 Yes 10mg Take 10 mg Univers 10 mg 4-24 by mouth ity of tablet 00:00: daily. [facility] methIMAzole 2019-0 Yes 10mg Take 10 mg Univers 10 mg 4-24 by mouth ity of tablet 00:00: daily. [place] [facility] methIMAzole 2019-0 Yes 10mg Take 10 mg Univers 10 mg 4-24 by mouth ity of tablet 00:00: daily. [facility] methIMAzole 2019-0 Yes 10mg Take 10 mg Univers 10 mg 4-24 by mouth ity of tablet 00:00: daily. [place] [facility] methIMAzole 2019-0 Yes 10mg Take 10 mg Univers 10 mg 4-24 by mouth ity of tablet 00:00: daily. [facility] methIMAzole 2019-0 Yes 10mg Take 10 mg Univers 10 mg 4-24 by mouth ity of tablet 00:00: daily. [place] [facility] methIMAzole 2019-0 Yes 10mg Take 10 mg Univers 10 mg 4-24 by mouth ity of tablet 00:00: daily. [place] [facility] methIMAzole 2019-0 Yes 10mg Take 10 mg Univers 10 mg 4-24 by mouth ity of tablet 00:00: daily. [place] [facility] methIMAzole 2019-0 Yes 10mg Take 10 mg Univers 10 mg 4-24 by mouth ity of tablet 00:00: daily. [place] [facility] methIMAzole 2019-0 Yes 10mg Take 10 mg Univers 10 mg 4-24 by mouth ity of tablet 00:00: daily. [place] [facility] methIMAzole 2019-0 Yes 10mg Take 10 mg Univers 10 mg 4-24 by mouth ity of tablet 00:00: daily. [place] [facility] methIMAzole 2019-0 Yes 10mg Take 10 mg Univers 10 mg 4-24 by mouth ity of tablet 00:00: daily. [place] [facility] methIMAzole 2019-0 Yes 10mg Take 10 mg Univers 10 mg 4-24 by mouth ity of tablet 00:00: daily. [place] [facility] methIMAzole 2019-0 Yes 10mg Take 10 mg Univers 10 mg 4-24 by mouth ity of tablet 00:00: daily. [place] [facility] methIMAzole 2019-0 Yes 10mg Take 10 mg Univers 10 mg 4-24 by mouth ity of tablet 00:00: daily. [place] [facility] methIMAzole 2019-0 Yes 10mg Take 10 mg Univers 10 mg 4-24 by mouth ity of tablet 00:00: daily. [place] [facility] methIMAzole 2019-0 Yes 10mg Take 10 mg Univers 10 mg 4-24 by mouth ity of tablet 00:00: daily. [place] [facility] methIMAzole 2019-0 Yes 10mg Take 10 mg Univers 10 mg 4-24 by mouth ity of tablet 00:00: daily. [place] [facility] methIMAzole 2019-0 Yes 10mg Take 10 mg Univers 10 mg 4-24 by mouth ity of tablet 00:00: daily. [place] [facility] methIMAzole 2019-0 Yes 10mg Take 10 mg [...] ity o f 00:00: 2 TIMES [place] DAY Medical Branch doxazosin 2 Yes TAKE 0.5 Un osbaldo mg tablet 4-22 TABLET BY ity o f 00:00: 2 TIMES [place] DAY Medical Branch doxazosin 2 Yes TAKE 0.5 Un [place] mg tablet 4-22 TABLET BY ity o f 00:00: 2 TIMES [place] DAY Medical Branch doxazosin 2 Yes TAKE 0.5 Un [place] mg tablet 4-22 TABLET BY ity o f 00:00: 2 TIMES [place] DAY Medical Branch doxazosin 2 Yes TAKE 0.5 Un [place] mg tablet 4-22 TABLET BY ity o f 00:00: 2 TIMES [place] DAY Medical Branch doxazosin 2 Yes TAKE 0.5 Un [place] mg tablet 4-22 TABLET BY ity o f 00:00: 2 TIMES [place] DAY Medical Branch doxazosin 2 Yes TAKE 0.5 Un [place] mg tablet 4-22 TABLET BY ity o f 00:00: 2 TIMES [place] DAY Medical Branch doxazosin 2 Yes TAKE 0.5 Un [place] mg tablet 4-22 TABLET BY ity o f 00:00: 2 TIMES [place] 00 EVERY DAY Medical Branch doxazosin 2 2019-0 Yes TAKE 0.5 Un [place] mg tablet 4-22 TABLET BY ity o f 00:00: 2 TIMES [place] 00 EVERY DAY Medical Branch doxazosin 2 2019-0 Yes TAKE 0.5 Un [place] mg tablet 4-22 TABLET BY ity o f 00:00: 2 TIMES [place] EVERY DAY Medical Branch doxazosin 2 2019-0 Yes TAKE 0.5 Un [place] mg tablet 4-22 TABLET BY ity o f 00:00: 2 TIMES [place] 00 EVERY DAY Medical Branch doxazosin 2 2019-0 Yes TAKE 0.5 Un [place] mg tablet 4-22 TABLET BY ity o f 00:00: 2 TIMES [place] EVERY DAY Medical Branch doxazosin 2 2019-0 Yes TAKE 0.5 Un [place] mg tablet 4-22 TABLET BY ity o f 00:00: 2 TIMES [place] EVERY DAY Medical Branch doxazosin 2 2018-0 Yes TAKE 0.5 Un [place] mg tablet 4-22 TABLET BY ity o f 00:00: 2 TIMES [place] EVERY DAY Medical Branch doxazosin 2 2019-0 [...] 4-16 TABLET BY ity of tablet 00:00: [facility] THREE Medical TIMES A Branch DAY WITH [...] 4-16 TABLET BY ity of tablet 00:00: [facility] THREE Medical TIMES A Branch DAY WITH FOOD hydrALAZINE 2019-0 Yes TAKE 1 Univ ers 100 mg 4-16 TABLET BY ity of tablet 00:00: [facility] THREE Medical TIMES A Branch DAY WITH FOOD hydrALAZINE 2019-0 Yes TAKE 1 Univ ers 100 mg 4-16 TABLET BY ity of tablet 00:00: [facility] THREE Medical TIMES A Branch DAY WITH FOOD hydrALAZINE 2019-0 Yes TAKE 1 Univ ers 100 mg 4-16 TABLET BY ity of tablet 00:00: [facility] THREE Medical TIMES A Branch DAY WITH FOOD hydrALAZINE 2019-0 Yes TAKE 1 Univ ers 100 mg 4-16 TABLET BY ity of tablet 00:00: [facility] THREE Medical TIMES A Branch DAY WITH FOOD hydrALAZINE 2019-0 2020- No TAKE 1 Uni vers 100 mg 4-16 03-06 TABLET BY ity of tablet 00:00: 00:00 [facility] [place] 00 :00 THREE Medical TIMES A Branch DAY WITH FOOD spironolact 2019-0 Yes 25mg Take 25 mg Univers one 25 mg 3-22 by mouth ity of tablet 00:00: daily. [place] [facility] spironolact 2019-0 Yes 25mg Take 25 mg Univers one 25 mg 3-22 by mouth ity of tablet 00:00: daily. [place] [facility] spironolact 2019-0 Yes 25mg Take 25 mg Univers one 25 mg 3-22 by mouth ity of tablet 00:00: daily. [place] [facility] spironolact 2019-0 Yes 25mg Take 25 mg Univers one 25 mg 3-22 by mouth ity of tablet 00:00: daily. [facility] spironolact 2019-0 Yes 25mg Take 25 mg Univers one 25 mg 3-22 by mouth ity of tablet 00:00: daily. [facility] spironolact 0 Yes 25mg Take 25 mg Univers one 25 mg 3-22 by mouth ity of tablet 00:00: daily. [facility] spironolact 0 Yes 25mg Take 25 mg Univers one 25 mg 3-22 by mouth ity of tablet 00:00: daily. [facility] spironolact 0 Yes 25mg Take 25 mg Univers one 25 mg 3-22 by mouth ity of tablet 00:00: daily. [facility] spironolact Yes 25mg Take 25 mg Univers one 25 mg 3-22 by mouth ity of tablet 00:00: daily. [facility] spironolact Yes 25mg Take 25 mg Univers one 25 mg 3-22 by mouth ity of tablet 00:00: daily. [facility] spironolact 0 Yes 25mg Take 25 mg Univers one 25 mg 3-22 by mouth ity of tablet 00:00: daily. [facility] spironolact 0 Yes 25mg Take 25 mg Univers one 25 mg 3-22 by mouth ity of tablet 00:00: daily. [facility] spironolact 0 Yes 25mg Take 25 mg Univers one 25 mg 3-22 by mouth ity of tablet 00:00: daily. [facility] spironolact 0 Yes 25mg Take 25 mg Univers one 25 mg 3-22 by mouth ity of tablet 00:00: daily. [facility] spironolact 0 2020- No 25mg Take 25 mg Univers one 25 mg 3-22 03-06 by mouth ity o f tablet 00:00: 00:00 daily. [place] : [facility] ALPRAZolam Yes .5mg Q.5D Take 0.5 Met [...] needed (for Headache). clonIDINE 2018-0 Yes .2mg [id number] Take 0.2 [facility] HCl 4- [id number] mg by st (CATAPRES) 14:23: 3D mouth 3 [facility] 0.2 MG 37 (three) l tablet times a day. hydrALAZINE 2018-0 Yes 50mg [id number] Take 50 mg [facility] (APRESOLINE 4- [id number] by mouth 3 st ) 50 MG 14:23: 3D (three) Hospita tablet 37 times a l day. insulin 2018-0 Yes 60U Q.5D Inject 60 Metho di detemir 4-[address] U-100 14:23: under the Hospita (LEVEMIR) 37 skin 2 l 100 unit/mL (two) injection times a day. losartan-hy 2018-0 Yes 1{tbl} QD Take 1 [facility] drochloroth 4-[address] iazide 14:23: mouth Hospita (HYZAAR) 37 daily. l 100-25 mg per tablet mirtazapine 2018-0 Yes 15mg QD Take 15 mg [facility] [...] tablet 37 nightly. l insulin 2018-0 Yes [id number] Inject [facility] lispro 4- [id number] under the st (HumaLOG) 14:23: 3D skin 3 Hospit a 100 unit/mL 37 (three) l injection times a day before meals. (PER SLIDING SCALE) carvedilol 2018-0 Yes 12.5mg Q.5D Take 12.5 [facility] (COREG) 4-[address] 12.5 MG 14:23: mouth 2 Hospita tablet 37 (two) l times a day. ALPRAZolam 2018-0 Yes .5mg Q.5D Take 0.5 Met hodi [...] needed (for Headache). clonIDINE 2018-0 Yes .2mg [id number] Take 0.2 [facility] HCl 4-[id number] (CATAPRES) 14:23: 3D mouth 3 [facility] 0.2 MG 37 (three) l tablet times a day. hydrALAZINE 0 Yes 50mg Q.[id number] Take 50 mg [facility] (APRESOLINE 4-01 [id number] by mouth 3 st ) 50 MG 14:23: 3D (three) Hospita tablet 37 times a l day. insulin 2017-0 Yes 60U Q.5D Inject 60 Metho di [...] Hospita tablet 37 every l morning. triazolam 2018- Yes .25mg QD Take 0.25 Me [facility] (HALCION) 4-[address] 0.25 MG 14:23: mouth Hospita tablet 37 nightly. l insulin 2017- Yes Q.[id number] Inject [facility] lispro 4- [id number] under the st (HumaLOG) 14:23: 3D skin 3 Hospit a 100 unit/mL 37 (three) l injection times a day before meals. (PER SLIDING SCALE) carvedilol 2017- Yes 12.5mg Q.5D Take 12.5 [facility] (COREG) 4-[address] 12.5 MG 14:23: mouth 2 Hospita tablet 37 (two) l times a day. ALPRAZolam Yes .5mg Q.5D Take 0.5 Met [facility] (XANAX) 0.5 4-[address] MG tablet 14:23: mouth 2 Hospi ta 37 (two) l times a day as needed for anxiety. butorphanol Yes 1{spray Q8H 1 spray [facility] (STADOL) 10 05-15 } into each st mg/mL nasal 14:23: nostril [facility] [place] spray 37 every 8 l (eight) hours as needed (for Headache). clonIDINE Yes .2mg Q.[id number] Take 0.2 [facility] HCl - [id number] mg by st (CATAPRES) 14:23: 3D mouth 3 [facility] 0.2 MG 37 (three) l tablet times a day. hydrALAZINE Yes 50mg Q.[id number] Take 50 mg [facility] (APRESOLINE -01 [id number] by mouth 3 st ) 50 MG 14:23: 3D (three) Hospita tablet 37 times a l day. insulin Yes 60U Q.5D Inject 60 Metho di detemir 4-[address] U-100 14:23: under the Hospita (LEVEMIR) 37 skin 2 l 100 unit/mL (two) injection times a day. losartan-hy Yes 1{tbl} QD Take 1 Me [facility] drochloroth 4-[address] iazide 14:23: mouth Hospita (HYZAAR) 37 daily. l 100-25 mg per tablet mirtazapine 2018-0 Yes 15mg QD Take 15 mg [facility] [...] tablet 37 nightly. l insulin 2018-0 Yes Q.[id number] Inject Me [facility] lispro 4- [id number] under the st (HumaLOG) 14:23: 3D skin 3 Hospit a 100 unit/mL 37 (three) l injection times a day before meals. (PER SLIDING SCALE) carvedilol 2018-0 Yes 12.5mg Q.5D Take 12.5 [facility] (COREG) 4-[address] 12.5 MG 14:23: mouth 2 Hospita tablet 37 (two) l times a day. ALPRAZolam 2018-0 Yes .5mg Q.5D Take 0.5 Met hodi [...] needed (for Headache). clonIDINE 2018-0 Yes .2mg Q.[id number] Take 0.2 [facility] HCl 4-[id number] (CATAPRES) 14:23: 3D mouth 3 [facility] 0.2 MG 37 (three) l tablet times a day. hydrALAZINE 2018-0 Yes 50mg Q.[id number] Take 50 mg [facility] (APRESOLINE 4-01 [id number] by mouth 3 st ) 50 MG 14:23: 3D (three) Hospita tablet 37 times a l day. insulin 2018-0 Yes 60U Q.5D Inject 60 Metho di detemir 4-[address] U-100 14:23: under the Hospita (LEVEMIR) 37 skin 2 l 100 unit/mL (two) injection times a day. losartan-hy 2018-0 Yes 1{tbl} QD Take 1 Me th[facility] drochloroth 4-[address] iazide 14:23: mouth Hospita (HYZAAR) 37 daily. l 100-25 mg per tablet mirtazapine 2018-0 Yes 15mg QD Take 15 mg Method[facility] [...] tablet 37 nightly. l insulin 2018-0 Yes Q.[id number] Inject Me [facility] lispro 4- [id number] under the st (HumaLOG) 14:23: 3D skin 3 Hospit a 100 unit/mL 37 (three) l injection times a day before meals. (PER SLIDING SCALE) carvedilol 2018-0 Yes 12.5mg Q.5D Take 12.5 [facility] (COREG) 4-[address] 12.5 MG 14:23: mouth 2 Hospita tablet 37 (two) l times a day. Immunizations Ordered Filled Immunization Date Status Comments [facility] e Immunization Name Name SARS-COV-2 COVID-19 2020-05-12 Completed Unive rsity of MODERNA VACCINE 00:00:00 [facility] SARS-COV-2 COVID-19 2020-05-12 Completed Unive rsity of MODER[place] VACCINE 00:00:00 [place] [facility] SARS-COV-2 COVID-19 2020-05-12 Completed Unive rsity of [...] Unive rsity of MODERNA VACCINE 00:00:00 [place] [facility] ical [facility] SARS-COV-2 COVID-19 2020-04-14 Completed Unive rsity of MODERNA VACCINE 00:00:00 [place] [facility] ical Branch SARS-COV-2 COVID-19 2020-04-14 Completed Unive rsity of MODERNA VACCINE 00:00:00 [place] [facility] ical Branch SARS-COV-2 COVID-19 2020-04-14 Completed Unive rsity of MODERNA VACCINE 00:00:00 [place] [facility] ical Branch SARS-COV-2 COVID-19 2020-04-14 Completed Unive rsity of MODERNA VACCINE 00:00:00 [place] [facility] ical Branch SARS-COV-2 COVID-19 2020-04-14 Completed Unive rsity of MODERNA VACCINE 00:00:00 [place] [facility] SARS-COV-2 COVID-19 2020-04-14 Completed Unive rsity of MODERNA VACCINE 00:00:00 [place] [facility] ical Branch SARS-COV-2 COVID-19 2020-04-14 Completed Unive rsity of MODERNA VACCINE 00:00:00 [place] [facility] ical Branch SARS-COV-2 COVID-19 2020-04-14 Completed Unive rsity of MODERNA VACCINE 00:00:00 [place] [facility] ical Branch SARS-COV-2 COVID-19 2020-04-14 Completed Unive rsity of MODERNA VACCINE 00:00:00 [place] [facility] ical Branch SARS-COV-2 COVID-19 2020-04-14 Completed Unive rsity of MODERNA VACCINE 00:00:00 [facility] SARS-COV-2 COVID-19 2020-04-14 Completed Unive rsity of MODERNA VACCINE 00:00:00 [facility] SARS-COV-2 COVID-19 2020-04-14 Completed Unive rsity of MODERNA VACCINE 00:00:00 [facility] SARS-COV-2 COVID-19 2020-04-14 Completed Unive rsity of MODERNA VACCINE 00:00:00 [facility] Vital Signs Vital Name Observation Time Observation Value Comments Source HEIGHT 2022-02-19 23:00:00 165.1 cm WEIGHT 2022-02-19 23:00:00 99.8 kg HEIGHT 2022-02-19 23:00:00 165.1 cm WEIGHT 2022-02-19 23:00:00 99.8 kg HEIGHT 2022-02-19 23:00:00 165.1 cm WEIGHT 2022-02-19 23:00:00 99.8 kg Body height 2019-04-20 15:34:00 165.1 cm Universi ty [facility] Body weight 2019-04-20 15:34:00 104.327 kg Universi ty [facility] BMI 2019-04-20 15:34:00 38.27 kg/m2 Universi ty [facility] Systolic blood 2019-03-23 16:31:00 173 mm[Hg] Univer sity of pressure [facility] Diastolic blood 2019-03-23 16:31:00 90 mm[Hg] Unive rsity of pressure [facility] Heart rate 2019-03-23 16:31:00 64 /min Universi ty [facility] Body temperature 2019-03-23 16:31:00 36.72 Bailey Univ ersity of [facility] Respiratory rate 2019-03-23 16:31:00 18 /min Univ ersity of [facility] Body height 2019-03-23 16:31:00 165.1 cm Universi ty [facility] Body weight 2019-03-23 16:31:00 97.24 kg Universi ty [facility] BMI 2019-03-23 16:31:00 35.67 kg/m2 [facility] Systolic blood 2022-02-22 12:00:00 158 mm[Hg] [facility] Diastolic blood 2022-02-22 12:00:00 82 mm[Hg] [facility] Heart rate 2022-02-22 12:00:00 75 /min [facility] Body temperature 2022-02-22 12:00:00 36.44 Bailey [facility] Respiratory rate 2022-02-22 12:00:00 21 /min [facility] Oxygen saturation in 2022-02-22 12:00:00 98 /min [facility] Arterial blood by Medical Ce nter Pulse oximetry Body height 2022-02-19 23:00:00 165.1 cm [facility] Body weight 2022-02-19 23:00:00 99.8 kg [facility] BMI 2022-02-19 23:00:00 36.61 kg/m2 [facility] Procedures Procedure Date / Time Performing Clinician Source Performed POCT-GLUCOSE METER 2022-02-22 11:27:00 [facility] 2022-02-22 05:45:00 [facility]OLIC PANEL 2022-02-22 04:19:00 [facility]T [facility] & AUTO 2022-02-22 04:19:00 Yudy Olvera [facility] DIFFERENTIAL [facility] CBC W/PLT COUNT & AUTO 2022-02-22 04:19:00 Yudy Olvera [facility] DIFFERENTIAL [facility] POCT-GLUCOSE METER 2022-02-21 20:05:00 [facility] POCT-GLUCOSE METER 2022-02-21 17:00:00 [facility] VENOUS DOPPLER LEGS 2022-02-21 14:23:[address] [facility] POCT-GLUCOSE METER 2022-02-21 11:57:00 [facility] POCT-GLUCOSE METER 2022-02-21 05:32:00 [facility] BASIC METABOLIC PANEL 2022-02-21 05:24:00 Sheikh [facility] CBC W/PLT COUNT & AUTO 2022-02-21 05:24:00 Olvera [facility] DIFFERENTIAL [facility] CBC W/PLT COUNT & AUTO 2022-02-21 05:24:00 Olvera [facility] POCT-GLUCOSE METER 2022-02-21 00:31:00 [facility]a [facility] POCT-GLUCOSE METER 2022-02-20 16:55:[facility] 2022-02-20 12:20:00 Elayne [facility] POCT-GLUCOSE METER 2022-02-20 11:20:00 [facility] HEMO[facility] HEMATOCRIT 2022-02-20 05:45:00 Elayne [facility] POCT-GLUCOSE METER 2022-02-20 05:30:00 [facility] ABORH, MANUAL 2022-02-20 02:56:00 Nomi Henriquez [facility] XR CHEST 1 VIEW PORTABLE 2022-02-20 00:48:00 Elayne [facility] / BEDSIDE Center POCT-GLUCOSE METER 2022-02-19 23:33:00 [facility] CBC W/PLT COUNT & AUTO 2022-02-19 23:28:00 Elayne [facility] DIFFERENTIAL Center BASIC METABOLIC PANEL 2022-02-19 23:28:00 Elayne [facility] B-TYPE NATRIURETIC FACTOR 2022-02-19 23:28:00 herminia [facility] (BNP) Center D-DIMER 2022-02-19 23:28:00 Elayne [facility] TYPE AND SCREEN, 2022-02-19 23:28:00 Elayne [facility] AUTOMATED Center CBC W/PLT COUNT & AUTO 2022-02-19 23:28:00 herminia [facility] DIFFERENTIAL Center BLOOD GAS, ARTERIAL 2022-02-19 23:13:00 herminia [facility] [id number] 2021-05-24 00:00:00 [facility] MEDICATION CORRESPONDENCE 2020-01-21 06:01:00 Doctor Unassigned, [facility] Plan of Care Planned Activity Planned Date Details Comments Source Future Scheduled 2023-02-20 Tobacco Cessation [facility] Test 00:00:00 [facility] Screening (12+) [code = Tobacco Cessation Counseling and Screening (12+)] Future Scheduled 2023-02-20 Tobacco Cessation [facility] Test 00:00:00 [facility] r Screening (12+) [code = Tobacco Cessation Counseling and Screening (12+)] Future Scheduled 2022-03-23 COVID-19 VACCINE (#1) [facility] Test 11:27:44 [code = COVID-19 VACCINE (#1)] Future Scheduled 2022-03-23 BREAST CANCER [facility] Test 11:27:44 SCREENING [code = BREAST CANCER SCREENING] Future Scheduled 2022-03-23 COLONOSCOPY SCREENING [facility] Test 11:27:44 [code = COLONOSCOPY SCREENING] Future Scheduled 2022-03-23 SHINGLES VACCINES (1 [facility] Test 11:27:44 of 2) [code = SHINGLES VACCINES (1 of 2)] Future Scheduled 2022-03-23 65+ [facility]OCOCCAL [facility] Test 11:27:44 VACCINE (1 - PCV) [code = 65+ PNEUMOCOCCAL VACCINE (1 - PCV)] Future Scheduled 2022-03-23 INFLUENZA VACCINE [facility] Test 11:27:44 [code = INFLUENZA VACCINE] Future Scheduled 2022-02-26 COVID-19 [facility]INE (#[facility] 13:41:51 [code = COVID-19 VACCINE (#1)] Future Scheduled 2022-02-26 BREAST CANCER [facility] Test 13:41:51 SCREENING [code = BREAST CANCER SCREENING] Future Scheduled 2022-02-26 COLONOSCOPY SCREENING [facility] Test 13:41:51 [code = COLONOSCOPY SCREENING] Future Scheduled 2022-02-26 SHINGLES VACCINES (1 [facility] Test 13:41:51 of 2) [code = SHINGLES VACCINES (1 of 2)] Future Scheduled 2022-02-26 65+ PNEUMOCOCCAL [facility] Test 13:41:51 VACCINE (1 - PCV) [code = 65+ PNEUMOCOCCAL VACCINE (1 - PCV)] Future Scheduled 2022-02-26 INFLUENZA VACCINE [facility] Test 13:41:51 [code = INFLUENZA VACCINE] Future Scheduled 2022-02-[address] [facility] Test 00:00:00 (12+) [code = Medical Center DEPRESSION SCREENING (12+)] Future Scheduled 2022-02-14 FALLS RISK SCREENING [facility] Test 00:00:00 [code = FALLS RISK Medical C enter SCREENING] Future Scheduled 2022-02-[address] [facility] Test 00:00:00 (12+) [code = Medical Center DEPRESSION SCREENING (12+)] Future Scheduled 2022-02-14 FALLS RISK SCREENING [facility] Test 00:00:00 [code = FALLS RISK Medical C enter SCREENING] Future Scheduled 2022-01-28 COVID-19 VACCINE (#1) [facility] Test 15:34:49 [code = COVID-19 VACCINE (#1)] Future Scheduled 2022-01-28 BREAST CANCER [facility] Test 15:34:49 SCREENING [code = BREAST CANCER SCREENING] Future Scheduled 2022-01-28 COLONOSCOPY SCREENING [facility] Test 15:34:49 [code = COLONOSCOPY SCREENING] Future Scheduled 2022-01-28 SHINGLES VACCINES (1 Met [facility] Test 15:34:49 of 2) [code = SHINGLES VACCINES (1 of 2)] Future Scheduled 2022-01-28 65+ PNEUMOCOCCAL [facility] Test 15:34:49 VACCINE (1 - PCV) [code = 65+ PNEUMOCOCCAL VACCINE (1 - PCV)] Future Scheduled 2022-01-28 INFLUENZA VACCINE [facility] Test 15:34:49 [code = INFLUENZA VACCINE] Future Scheduled 2021-10-15 HEPATITIS B VACCINES [facility] Test 06:27:31 (1 of 3 - 3-dose series) [code = HEPATITIS B VACCINES (1 of 3 - 3-dose series)] Future Scheduled 2021-10-15 COVID-19 VACCINE (#1) [facility] Test 06:27:31 [code = COVID-19 VACCINE (#1)] Future Scheduled 2021-10-15 BREAST CANCER [facility] Test 06:27:31 SCREENING [code = BREAST CANCER SCREENING] Future Scheduled 2021-10-15 COLONOSCOPY SCREENING [facility] Test 06:27:31 [code = COLONOSCOPY SCREENING] Future Scheduled 2021-10-15 SHINGLES VACCINES (1 [facility] Test 06:27:31 of 2) [code = SHINGLES VACCINES (1 of 2)] Future Scheduled 2021-10-15 65+ PNEUMOCOCCAL [facility] Test 06:27:31 VACCINE (1 - PCV) [code = 65+ PNEUMOCOCCAL VACCINE (1 - PCV)] Future Scheduled 2021-10-15 INFLUENZA VACCINE [facility] Test 06:27:31 [code = INFLUENZA VACCINE] Future Scheduled 2021-10-15 INFLUENZA VACCINE (#1) [facility] 00:[facility]00 [code = INFLUENZA Medical Ce nter VACCINE (#1)] Future Scheduled 2021-10-15 Medicare IPPE (WELCOME [facility] Test 00:00:00 TO MEDICARE) [code = Medical Center Medicare IPPE (WELCOME TO MEDICARE)] Future Scheduled 2021-10-15 INFLUENZA VACCINE (#1) [facility] 00:00:00 [code = INFLUENZA Medical Ce nter VACCINE (#1)] Future Scheduled 2021-10-15 Medicare IPPE (WELCOME [facility] 00:00:00 TO MEDICARE) [code = Medical Center Medicare IPPE (WELCOME TO MEDICARE)] Future Scheduled 2020-10-12 COVID-19 VACCINE (3 - [facility]00 Booster for [facility] series) [code = COVID-19 VACCINE (3 - Booster for [employer] series)] Future Scheduled 2020-10-12 COVID-19 VACCINE (3 - [facility] 00:00:00 [facility]oster for [facility] series) [code = COVID-19 VACCINE (3 - Booster for [employer] series)] Future Scheduled 2016-12-18 PNEUMOCOCCAL 65+ [address] [facility] Test 00:00:00 (1 - PCV) [code = Medical Ce nter PNEUMOCOCCAL 65+ YRS (1 - PCV)] Future Scheduled 2016-12-18 PNEUMOCOCCAL 65+ [facility] Test 00:00:00 (1 - PCV) [code = Medical Ce nter PNEUMOCOCCAL 65+ YRS (1 - PCV)] Future Scheduled 2001-12-18 SHINGLES VACCINES ([address] [facility] Test 00:00:00 of 2) [code = SHINGLES Medic al Center VACCINES (1 of 2)] Future Scheduled 2001-12-18 SHINGLES VACCINES ([address] [facility] Test 00:00:00 of 2) [code = SHINGLES Medic al Center VACCINES (1 of 2)] Future Scheduled 1970-12-18 DTAP/TDAP/TD VACCINES [facility] 00:00:00 (1 - Tdap) [code = Medical C enter DTAP/TDAP/TD VACCINES (1 - Tdap)] Future Scheduled 1970-12-18 DTAP/TDAP/TD [facility]ACCINES [facility] 00:00:00 (1 - Tdap) [code = Medical C enter DTAP/TDAP/TD VACCINES (1 - Tdap)] Future Scheduled 1969-12-18 HEPATITIS C [facility]CRE[facility]ING [facility] 00:00[facility]00 [code = HEPATITIS C Medical Center SCREENING] Future Scheduled 1969-12-18 HEPATITIS C [facility]ING [facility] 00:00[facility]00 [code = HEPATITIS C Medical Center SCREENING] Future Scheduled [address] [facility] [facility] 00:[facility]:00 malignant neoplasm of Medica l Center breast (procedure) [code = 254128242] Future Scheduled [address] [facility] 00:00:00 (combo) [code = CT Medical C enter Colonography (combo)] Future Scheduled [address] [facility] Test 00:00:00 malignant neoplasm of Medica l Center colon (procedure) [code = 762688003] Future Scheduled [address] [facility] Test 00:00:00 malignant neoplasm of Medica l Center colon (procedure) [code = 077185907] Future Scheduled 1951 DXA SCAN [code = DXA [facility] Test 00:00:00 SCAN] [facility] Future Scheduled [address] [facility] Test 00:00:00 malignant neoplasm of Medica l Center colon (procedure) [code = 353870890] Future Scheduled [address] [facility] Test 00:00:00 malignant neoplasm of Medica l Center colon (procedure) [code = 544928983] Future Scheduled 1951 Sigmoidoscopy [facility]code = [facility] S[facility]oidoscopy] Medical Kaleb r Future Scheduled [address] [facility] Test 00:00:00 malignant neoplasm of Medica l Center breast (procedure) [code = 720357877] Future Scheduled [address] [facility] 00:00:00 (combo) [code = CT Medical C enter Colonography (combo)] Future Scheduled [address] [facility] 00:00:00 malignant neoplasm of Medica l Center colon (procedure) [code = 740339617] Future Scheduled [address] [facility] 00:00:00 malignant neoplasm of Medica l Center colon (procedure) [code = 466632585] Future Scheduled 1951 DXA SCAN [code = DXA [facility] Test 00:00:00 SCAN] [facility] Future Scheduled [address] [facility] [facility] 00:00:00 malignant neoplasm of Medica l Center colon (procedure) [code = 357127487] Future Scheduled [address] [facility] Test 00:00:00 malignant neoplasm of Medica l Center colon (procedure) [code = 551354778] Future Scheduled 1951 Sigmoidoscopy [facility] S[facility]oidoscopy] Medical Kaleb r Encounters Start End Encounter Admission Attending Care Care Encounter Source Date/Time Date/Time Type Type Clinicians Facility Department ID 2021-06-09 Outpatient [facility] [id number] [place] 14:19:02 [id number] [facility] 2022-02-19 2022-02-22 Hospital Yudy Olvera [facility] [id number] 22:07:00 13:36:00 Encounter ElayneGulshan [facility] 2022-02-19 2022-02-22 Inpatient ER , [facility] [id number] [place] 22:07:00 13:36:00 [facility] 2022-02-19 2022-02-22 [facility] [id number] 22:07:00 13:36:00 Encounter [facility] 2022-02-20 2022-02-20 Travel [facility] [id number] [facility] 00:00[facility]00 [facility] 2022-02-20 2022-02-20 Travel [facility] [id number] [facility] 00:[facility] 00:00:00 [facility] 2021-06-22 2021-06-22 Outpatient EFRAÍN ALEXANDER [facility] [id number] Univers 10:40:00 10:40:00 EFRAÍN CARTER [facility] 2021-06-17 2021-06-17 Telephone Bryce [facility] [id number] Univers 00:00:00 00:00:00 Efraín [facility] [id number] itNorris [id number] Trino as MARQUES?BLEA [phone] In dical [place] [id number] [facility] 2021-05-17 2021-05-27 Inpatient EM ElayneKt [facility] MED [id number] [facility] 02:24:00 14:50:00 66 [facility] 2020-09-07 2020-09-07 Balwinder Carter [facility] [id number] Univers 00:00:00 00:00:00 Efraín [place] [id number] [id number] [phone] [address] 2020-06-18 2020-06-18 [facility] 1.2.840.114 [id number] Univers 00:00:00 00:00:00 Efraín Foster [id number] [id number] [phone] [address] 2020-05-12 2020-05-12 Sherri [facility]ER [facility] [id number] Univers 16:00:00 16:00:00 ALLA ity of [facility] 2020-04-18 2020-04-18 Telephone [facility] 1.2.840.114 [id number] Univers 00:00:00 00:00:00 Efraín Foster [id number] [id number] [phone] [address] 2020-04-18 2020-04-18 [facility] [id number] Univers 00:00:00 00:00:00 Efraín Foster [id number] [id number] [phone] [address] 2020-04-18 2020-04-18 [facility] Bryce, [facility] 1.2.840.114 [id number] Univers 00:00:00 00:00:00 Efraín Foster [id number] [id number] [phone] [address] 2020-04-17 2020-04-17 [facility] 1.2.840.114 [id number] Univers 00:00:00 00:00:00 Efraín Foster [id number] [id number] [phone] In dical nal [address] [facility] 2020-04-16 2020-04-16 Telephone [facility] 1.2.840.114 [id number] Univers 00:00:00 00:00:00 Efraín Foster [id number] [id number] [phone] In dicwy nal [address] [place] [address] 2020-04-16 2020-04-16 Refill [facility] 1.2.840.114 [id number] Univers 00:00:00 00:00:00 Efraín Foster [id number] [id number] [phone] [facility] [address] [facility] 2020-04-16 2020-04-16 [facility] 1.2.840.114 [id number] Univers 00:00:00 00:00:00 Efraín Foster [id number] [id number] [phone] [address] 2020-04-14 2020-04-14 Sherri [facility] [id number] Univers 15:50:00 15:50:00 ALLA ity of [facility] 2020-03-19 2020-03-19 Telephone [facility] 1.2.840.114 [id number] Univers 00:00:00 00:00:00 Efraín Foster [id number] [id number] [phone] [facility] nal [address] [place] [address] 2020-02-28 2020-02-28 Telephone [facility] 1.2.840.114 [id number] Univers 00:00:00 00:00:00 Efraín Foster [id number] [id number] [phone] In dical nal [address] [place] [address] 2020-02-19 2020-02-19 [facility] 1.2.840.114 [id number] Univers 00:00:00 00:00:00 Efraín Foster [id number] [id number] [phone] [place] 007712 [facility] 2020-01-21 2020-01-21 [facility] 1.2.840.114 [id number] Univers 00:00:00 00:00:00 Efraín Foster [id number] [id number] [phone] [address] 2020-01-21 2020-01-21 Orders Doctor HOANG 1.2.840.114 [id number] Univers 00:00:00 00:00:00 Only Unassigned, JESUSITA [id number] ity of [place] [facility] [id number] Trino as [phone] [address] 2019-12-25 2019-12-25 [facility]zo [facility] 1.2.840.114 [id number] Univers 00:00:00 00:00:00 Efraín Foster [id number] ity of [place] [phone] [address] 2019-12-24 2019-12-24 [facility] 1.2.840.114 [id number] Univers 00:00:00 00:00:00 Efraín Foster 350.1.13.10 [place] [phone] [address] 2019 2019 Refalfonzo CarterUNION COUNTY GENER[facility] 1.2.840.114 [id number] Univers 00:00:00 00:00:00 Efraín Foster 350.1.13.10 [place] [phone] [address] 2019-11-23 2019-11-23 [facility] 1.2.840.114 [id number] Univers 00:00:00 00:00:00 Efraín Foster 350.1.13.10 [place] [phone] [address] 2019-11-23 2019-11-23 [facility] CarterUN[facility] 1.2.840.114 [id number] Univers 00:00:00 00:00:00 Efraín Foster 350.1.13.10 [place] [phone] [address] 2019-10-29 2019-10-29 [facility] CarterUN[facility] 1.2.840.114 [id number] Univers 00:00:00 00:00:00 Efraín Foster 350.1.13.10 [place] [phone] [address] 2019-10-26 2019-10-26 [facility] CarterUN[facility] 1.2.840.114 [id number] Univers 00:00:00 00:00:00 Efraín Foster 350.1.13.10 [place] [phone] [address] 2019-09-28 2019-09-28 [facility] 1.2.840.114 [id number] Univers 00:00:00 00:00:00 Efraín Foster 350.1.13.10 [place] [phone] [address] 2019-09-28 2019-09-28 Mercer BryceUN[facility] 1.2.840.114 [id number] Univers 00:00:00 00:00:00 Efraín De Los Santoston 350.1.13.10 ity [place] [phone] [address] 2019-09-25 2019-09-25 Refill [facility]UN[facility] 1.2.840.114 [id number] Univers 00:00:00 00:00:00 Efraín Foster 350.1.13.10 [place] [phone] [address] 2019-09-10 2019-09-10 Sher[facility] [id number] Univers 13:00:00 13:00:00 KRISTEL ity of [facility] 2019-08-22 2019-08-22 [facility] 1.2.840.114 [id number] Univers 00:00:00 00:00:00 Efraín Foster 350.1.13.10 [place] [phone] [address] 2019-07-23 2019-07-23 [facility] 1.2.840.114 [id number] Univers 00:00:00 00:00:00 Efraín Foster 350.1.13.10 [place] [phone] [address] 2019-07-20 2019-07-20 [facility] 1.2.840.114 [id number] Univers 00:00:00 00:00:00 Efraín Foster 350.1.13.10 it[place] [phone] [address] 2019-07-20 2019-07-20 [facility] 1.2.840.114 [id number] Univers 00:00:00 00:00:00 Efraín Foster 350.1.13.10 [place] [phone] [address] 2019-07-20 2019-07-20 [facility] 1.2.840.114 [id number] Univers 00:00:00 00:00:00 Efraín Foster 350.1.13.10 it[place] [phone] In dicwy nal 0[address] [facility] 2019-07-19 2019-07-19 Mercer Bry[facility]UN[facility] 1.2.840.114 [id number] Univers 00:00:00 00:00:00 Efraín Foster 350.1.13.10 [place] [phone] [facility] nal [address] [place] [address] 2019-07-18 2019-07-18 [facility] 1.2.840.114 [id number] Univers 00:00:00 00:00:00 Efraín Foster 350.1.13.10 [place] [phone] [facility] nal [address] [place] [address] 2019-07-06 2019-07-06 Mercer [facility]UN[facility] 1.2.840.114 [id number] Univers 00:00:00 00:00:00 Efraín Foster 350.1.13.10 [place] [phone] [facility] nal [address] [facility] 2019-07-05 2019-07-05 [facility] 1.2.840.114 [id number] Univers 00:00:00 00:00:00 [facility] 350.1.13.10 ity of [place] 4.2.7.2.686 [place] Professio [phone] [facility] 044 [facility] One 2019-07-03 2019-07-03 Telemedici [facility]UN[facility] 1.2.840.114 [id number] Univers 08:05:45 10:48:54 ne Visit Efraín Foster 350.1.13.10 it[place] [phone] [address] Building 2019-07-03 2019-07-03 Outpatient R BRYCEEFRAÍN Lopez [facility] [id number] Univers 09:20:00 09:20:00 EFRAÍN CARTER itbianca of [facility] 2019-06-19 2019-06-19 Telephone Bryce [facility] 1.2.840.114 [id number] Univers 00:00:00 00:00:00 Efraín Foster 350.1.13.10 [place] [phone] [address] 2019-06-18 2019-06-18 Telephone [facility] 1.2.840.114 [id number] Univers 00:00:00 00:00:00 Efraín Prabhakar Foster 350.1.13.10 [place] [phone] [address] 2019-05-28 2019-05-28 Refill Bryce [facility] 1.2.840.114 [id number] Univers 00:00:00 00:00:00 Efraín Foster 350.1.13.10 [place] [phone] [address] 2019-05-16 2019-05-16 Telephone [facility] 1.2.840.114 [id number] Univers 00:00:00 00:00:00 Efraín Foster 350.1.13.10 it[place] [phone] [facility] [address] [place] [address] 2019-05-13 2019-05-13 Refill Kiran [facility] 1.2.840.114 [id number] Univers 00:00:00 00:00:00 [facility] 350.1.13.10 ity of [place] 4.2.7.2.686 [place] Profess[place] [phone] [address] One 2019-05-13 2019-05-13 Refill Bryce [facility] 1.2.840.114 [id number] Univers 00:00:00 00:00:00 Efraín Gene [place] 350.1.13.10 [place] [phone] In michele garza 0[address] [facility] 2019-05-09 2019-05-09 Outpatient R ELISSA [facility] [id number] Univers 14:15:00 14:15:00 TAMARA ity [facility] 2019-05-09 2019-05-09 Telephone [facility] 1.2.840.114 [id number] Univers 00:00:00 00:00:00 [facility] 350.1.13.10 ity of [place] 4.2.7.2.686 [place] Profess[place] [phone] [facility] 044 [facility] 2019-05-09 2019-05-09 Telephone ElissaUNION COUNTY GENER[facility] 1.2.840.114 [id number] Univers 00:00:00 00:00:00 Tamara D SPECIALTY 350.1.13.10 [place] [phone] In shirleytimothy MERIDA [facility] 2019-05-08 2019-05-08 Telephone [facility] 1.2.840.114 [id number] Univers 00:00:00 00:00:00 [facility] 350.1.13.10 ity of [place] 4.2.7.2.686 [place] [phone] [facility] 044 [facility] 2019-04-20 2019-04-20 Office [facility] 1.2.840.114 [id number] Univers 09:23:30 19:21:09 Visit [facility] 350.1.13.10 ity of [place] 4.2.7.2.686 [place] [phone] [address] 2019-04-20 2019-04-20 Outpatient R KIRAN [facility] [id number] Univers 09:00:00 09:00:00 WONDIFUL ity o f [facility] 2019-04-19 2019-04-19 Telephone [facility] 1.2.840.114 [id number] Univers 00:00:00 00:00:00 Efraín Foster 350.1.13.10 it[place] [phone] In dicwy nal 2 [facility] 2019-04-15 2019-04-15 [facility] 1.2.840.114 [id number] [facility] 00:00:00 00:00:00 Efraín Foster 350.1.13.10 ity [place] [phone] In dic[address] 2019-03-23 2019-03-23 [facility] 1.2.840.114 [id number] [facility] 09:58:29 11:26:48 Visit Efraín Foster 350.1.13.10 ity [place] [phone] [address] 2019-03-22 2019-03-22 Mercer [facility]UN[facility] 1.2.840.114 [id number] Univers 00:00:00 00:00:00 Efraín Foster 350.1.13.10 it[place] [phone] [address] 2019-03-22 2019-03-22 Mercer [facility]UN[facility] 1.2.840.114 [id number] [facility] 00:00:00 00:00:00 Efraín Foster 350.1.13.10 ity [place] [phone] In dicwy nal [address] [place] [address] 2019-03-16 2019-03-16 [facility] 1.2.840.114 [id number] [facility] 00:00:00 00:00:00 Efraín Foster 350.1.13.10 it[place] [phone] In dical nal 2 [facility] 2019-03-07 2019-03-07 Jonathan Carter [facility] 1.2.840.114 [id number] Univers 00:00:00 00:00:00 Efraín Foster 350.1.13.10 it[place] [phone] In dicwy nal 2 [facility] 2018-09-08 2018-09-08 Refill Bryce [facility] 1.2.840.114 [id number] Univers 00:00:00 00:00:00 Efraín Foster 350.1.13.10 it[place] [phone] [address] Results Test Description Test Time Test Comments Results Result Comments Source POC-Glucose meter 2022-02-22 11:38:16 Test Item Value Reference Range Interpretation Comme [facility] POC-Glucose Meter (test code = 162 mg/dL 70-110 H : TESTED AT [facility] [address] [place] [address]: Rail Technician/Techni whitney ID = [id number] for Torrez, [place] Lab Interpretation (test code = Abnormal 04848-3) [facility] [id number] 11:38:16 Test Item Value Reference Range Interpretation Comments POC-Glucose Meter (test 162 mg/dL 70-110 H : TE STED AT [facility] code = 1538) [place] [address] [place] [address]: Rail Technician/Techni whitney ID = [id number] for Torrez, La Lab Interpretation (test Abnormal code = 15177-1) [facility]-GLUCOSE [id number] 11:38:16 Test Item Value Reference Range Interpretation Comments POC-GLUCOSE METER 162 mg/dL 70-110 H : TESTED A T [facility] (BEAKER) (test code [address], = 1538) [place] [address] 0: Rail Technician/Techni whitney ID = [id number] for Delg ado, [place] POCT-GLUCOSE [id number] 05:57:53 Test Item Value Reference Range Interpretation Comments POC-GLUCOSE METER 144 mg/dL 70-110 H : TESTED A T [facility] (BEAKER) (test code [address], = 1538) [place] [address] 0: Rail Technician/Techni whitney ID = [id number] for Balt ie, Alex BASIC METABOLIC [id number] 04:43:08 Test Item Value Reference Range Interpretation Comments SODIUM (BEAKER) 138 meq/L 135-148 (test code = 381) POTASSIUM 3.7 meq/L 3.6-5.5 (BEAKER) (test code = 379) CHLORIDE (BEAKER) 105 meq/L 98-106 (test code = 382) CO2 (BEAKER) 25 meq/L 20-29 (test code = 355) BLOOD UREA 23 mg/dL 10-26 NITROGEN (BEAKER) (test code = 354) CREATININE 1.17 mg/dL 0.50-1.20 (BEAKER) (test code = 358) GLUCOSE RANDOM 159 mg/dL 70-110 H (BEAKER) (test code = 652) CALCIUM (BEAKER) 8.6 mg/dL 8.5-10.5 (test code = 697) EGFR (BEAKER) 50 Interpretatio n of eGFR (test code = mL/min/1.73 values Stage De scription 1092) sq m Result G1 Ilda l or high >=90 G2 Mildly decreased 60-89 G3a Mildl y to moderately 45-5 9 G3b Moderately to s everely 30-44 G4 Severl y decreased 15-29 G5 Kidney failure <15Reported eGF R is based on the CKD-EPI 2020 equation that d oes not use a race coefficientEsti mated GFR is not as accur ate as Creatinine Sherry nat in predicting glom erular filtration rate . Estimated GFR is not appl icable for dialysis patien ts Rail Technician ID - [id number] W/PLT COUNT & AUTO [id number] 04:27:28 Test Item Value Reference Range Interpretation Comments WHITE BLOOD CELL COUNT (BEAKER) 5.5 K/ L 4.0-10.0 (test code = 775) RED BLOOD CELL COUNT (BEAKER) 3.67 M/ L 4.00-5.00 L (test code = 761) HEMOGLOBIN (BEAKER) (test code = 9.6 GM/DL 12.0-15.5 L 410) HEMATOCRIT (BEAKER) (test code = 31.3 % 36.0-46.0 L 411) MEAN CORPUSCULAR VOLUME (BEAKER) 85 fL 82-99 (test code = 753) MEAN CORPUSCULAR HEMOGLOBIN 26.2 pg 27.0-33.0 L (BEAKER) (test code = 751) MEAN CORPUSCULAR HEMOGLOBIN CONC 30.7 GM/DL 32.0-36.0 L (BEAKER) (test code = 752) RED CELL DISTRIBUTION WIDTH 16.6 % 12.0-15.0 H (BEAKER) (test code = 412) PLATELET COUNT (BEAKER) (test 231 K/CU MM 150-430 code = 756) MEAN PLATELET VOLUME (BEAKER) 9.7 fL 6.0-11.5 (test code = 754) NUCLEATED RED BLOOD CELLS 0 /100 WBC 0-0 (BEAKER) (test code = 413) NEUTROPHILS RELATIVE PERCENT 71 % (BEAKER) (test code = 429) LYMPHOCYTES RELATIVE PERCENT 18 % (BEAKER) (test code = 430) MONOCYTES RELATIVE PERCENT 9 % (BEAKER) (test code = 431) EOSINOPHILS RELATIVE PERCENT 2 % (BEAKER) (test code = 432) BASOPHILS RELATIVE PERCENT 1 % (BEAKER) (test code = 437) NEUTROPHILS ABSOLUTE COUNT 3.88 K/ L 1.80-8.00 (BEAKER) (test code = 670) LYMPHOCYTES ABSOLUTE COUNT 0.97 K/ L 1.48-4.50 L (BEAKER) (test code = 414) MONOCYTES ABSOLUTE COUNT (BEAKER) 0.50 K/ L 0.00-1.30 (test code = 415) EOSINOPHILS ABSOLUTE COUNT 0.10 K/ L 0.00-0.50 (BEAKER) (test code = 416) BASOPHILS ABSOLUTE COUNT (BEAKER) 0.03 K/ L 0.00-0.20 (test code = 417) IMMATURE GRANULOCYTES-RELATIVE 0.20 % 0.00-0.00 H PERCENT (BEAKER) (test code = 2801) POCT-GLUCOSE [id number] 20:16:09 Test Item Value Reference Range Interpretation Comments POC-GLUCOSE METER 170 mg/dL 70-110 H : TESTED A T [facility] (BEAKER) (test code [address], = 1533) [place] [address] 0: Rail Technician/Techni whitney ID = [id number] for Jluist Alex em POCT-GLUCOSE [id number] 17:12:07 Test Item Value Reference Range Interpretation Comments POC-GLUCOSE METER 147 mg/dL 70-110 H : TESTED A T [facility] (BEAKER) (test code [address], = 1538) [place] [address] 0: Rail Technician/Techni whitney ID = [id number] for Chris atHemanth VENOUS DOPPLER LEGS, [id number] 14:46:00Reason for exam:->Leg swellingNORTHERN INYO HOSPITALName: CYNDI FERRELL : 1950 Sex: FFINAL REPORT VENOUS DOPPLER LEGS, BILATERAL INDICATION: Leg swelling TECHNIQUE: Ultrasound was performed in the veins of both legs, including color and spectral Doppler exam and compression of the veins with the ultrasound transducer. COMPARISON: None FINDINGS: Right leg: Normal color doppler flow, compression, and augmentation in all the deep venous structures from the common femoral vein to popliteal vein in the right lower extremity. The saphenofemoral junction and upper great saphenous vein are compressible with normal color and spectral Doppler flow. The upper calf veins were also assessed and are unremarkable. Left leg: Normal color doppler flow, compression, and augmentation in all the deep venous structures from the common femoral vein to popliteal vein in the left lower extremity. The saphenofemoral junction and upper great saphenous vein are compressible with normal color and spectral Doppler flow. The upper calf veins were also assessed and are unremarkable. IMPRESSION:No sonographic evidence for deep venous thrombosis in either leg. Signed: Gurpreet Bazan MDReport Verified Date/Time: 02/21/2022 14:46:41 Reading Location: [facility] C0[facility] [[email or web address]] Transitional Reading Room POCT-GLUCOSE [id number] 12:09:09 Test Item Value Reference Range Interpretation Comments POC-GLUCOSE METER 202 mg/dL 70-110 H : TESTED A T [facility] (BEAKER) (test code [address], = 1538) [facility] [address] 0: Rail Technician/Techni whitney ID = [id number] for Hemanth Levy BASIC METABOLIC [id number] 05:54:34 Test Item Value Reference Range Interpretation Comments SODIUM (BEAKER) 137 meq/L 135-148 (test code = 381) POTASSIUM 3.8 meq/L 3.6-5.5 (BEAKER) (test code = 379) CHLORIDE (BEAKER) 105 meq/L 98-106 (test code = 382) CO2 (BEAKER) 23 meq/L 20-29 (test code = 355) BLOOD UREA 17 mg/dL 10-26 NITROGEN (BEAKER) (test code = 354) CREATININE 1.05 mg/dL 0.50-1.20 (BEAKER) (test code = 358) GLUCOSE RANDOM 151 mg/dL 70-110 H (BEAKER) (test code = 652) CALCIUM (BEAKER) 8.8 mg/dL 8.5-10.5 (test code = 697) EGFR (BEAKER) 57 Interpretatio n of eGFR (test code = mL/min/1.73 values Stage De scription 1092) sq m Result G1 Ilda l or high >=90 G2 Mildly decreased 60-89 G3a Mildl y to moderately 45-5 9 G3b Moderately to s everely 30-44 G4 Severl y decreased 15-29 G5 Kidney failure <15Reported eGF R is based on the CKD-EPI 2020 equation that d oes not use a race coefficientEsti mated GFR is not as accur ate as Creatinine Sherry johns in predicting glom erular filtration rate . Estimated GFR is not appl icable for dialysis patien ts Rail Technician ID - PURAPOCT-GLUCOSE [id number] 05:44:27 Test Item Value Reference Range Interpretation Comments POC-GLUCOSE METER 156 mg/dL 70-110 H : TESTED A T [facility] (BEAKER) (test code [address], = 1538) [place] [address] 0: Rail Technician/Techni whitney ID = [id number] for Doug CAMILO CBC W/PLT COUNT & AUTO [id number] 05:38:05 Test Item Value Reference Range Interpretation Comments WHITE BLOOD CELL COUNT (BEAKER) 5.8 K/ L 4.0-10.0 (test code = 775) RED BLOOD CELL COUNT (BEAKER) 3.92 M/ L 4.00-5.00 L (test code = 761) HEMOGLOBIN (BEAKER) (test code = 10.3 GM/DL 12.0-15.5 L 410) HEMATOCRIT (BEAKER) (test code = 34.1 % 36.0-46.0 L 411) MEAN CORPUSCULAR VOLUME (BEAKER) 87 fL 82-99 (test code = 753) MEAN CORPUSCULAR HEMOGLOBIN 26.3 pg 27.0-33.0 L (BEAKER) (test code = 751) MEAN CORPUSCULAR HEMOGLOBIN CONC 30.2 GM/DL 32.0-36.0 L (BEAKER) (test code = 752) RED CELL DISTRIBUTION WIDTH 16.9 % 12.0-15.0 H (BEAKER) (test code = 412) PLATELET COUNT (BEAKER) (test 246 K/CU MM 150-430 code = 756) MEAN PLATELET VOLUME (BEAKER) 10.1 fL 6.0-11.5 (test code = 754) NUCLEATED RED BLOOD CELLS 0 /100 WBC 0-0 (BEAKER) (test code = 413) NEUTROPHILS RELATIVE PERCENT 71 % (BEAKER) (test code = 429) LYMPHOCYTES RELATIVE PERCENT 16 % (BEAKER) (test code = 430) MONOCYTES RELATIVE PERCENT 10 % (BEAKER) (test code = 431) EOSINOPHILS RELATIVE PERCENT 3 % (BEAKER) (test code = 432) BASOPHILS RELATIVE PERCENT 1 % (BEAKER) (test code = 437) NEUTROPHILS ABSOLUTE COUNT 4.06 K/ L 1.80-8.00 (BEAKER) (test code = 670) LYMPHOCYTES ABSOLUTE COUNT 0.91 K/ L 1.48-4.50 L (BEAKER) (test code = 414) MONOCYTES ABSOLUTE COUNT (BEAKER) 0.56 K/ L 0.00-1.30 (test code = 415) EOSINOPHILS ABSOLUTE COUNT 0.16 K/ L 0.00-0.50 (BEAKER) (test code = 416) BASOPHILS ABSOLUTE COUNT (BEAKER) 0.03 K/ L 0.00-0.20 (test code = 417) IMMATURE GRANULOCYTES-RELATIVE 0.50 % 0.00-0.00 H PERCENT (BEAKER) (test code = 2801) POCT-GLUCOSE [id number] 00:42:34 Test Item Value Reference Range Interpretation Comments POC-GLUCOSE METER 149 mg/dL 70-110 H : TESTED A T [facility] (BEAKER) (test code [address], = 1538) [place] [address] 0: Rail Technician/Techni whitney ID = [id number] for LANC ERIN, Glervi POCT-GLUCOSE [id number] 17:07:25 Test Item Value Reference Range Interpretation Comments POC-GLUCOSE METER 219 mg/dL 70-110 H : TESTED A T [facility] (BEAKER) (test code [address], = 1538) [place] [address] 0: Rail Technician/Techni whitney ID = [id number] for Merc ado, Sujatha HEMOGLOBIN AND [id number] 12:35:26 Test Item Value Reference Range Interpretation Comments HEMOGLOBIN (BEAKER) (test code = 10.3 GM/DL 12.0-15.5 L 410) HEMATOCRIT (BEAKER) (test code = 33.5 % 36.0-46.0 L 411) POCT-GLUCOSE [id number] 11:31:48 Test Item Value Reference Range Interpretation Comments POC-GLUCOSE METER 113 mg/dL 70-110 H : TESTED A T [facility] (BEAKER) (test code [address], = 1538) [place] [address] 0: Rail Technician/Techni whitney ID = [id number] for Terrell ntonLisa RAD, CHEST, 1 VIEW, NON [id number] 08:18:00Reason for exam:->sobShould this be performed at the bedside?->Yes [facility] : 1950 Sex: FFINAL REPORT Exam: RAD, CHEST, 1 VIEW, NON DEPTDate: 02/20/2022 8:17 AM Indication:sobComparison: None available. IMPRESSION: Patient is rotated. Lines/Tubes:None Lungs and Pleura :Right retrocardiac opacity. Mildly increased interstitial opacities. No pleural effusions. No pneumothorax. Heart/Mediastinum:Cardiac silhouette is poorly evaluated, but appears enlarged. Bones/Soft Tissues: No acute osseous abnormality. Upper abdomen: Unremarkable. Signed: Martina Venegas MDReport Verified Date/Time: 02/20/2022 08:18:26 HEMOGLOBIN AND [id number] 06:14:37 Test Item Value Reference Range Interpretation Comments HEMOGLOBIN (BEAKER) (test code = 10.1 GM/DL 12.0-15.5 L 410) HEMATOCRIT (BEAKER) (test code = 33.4 % 36.0-46.0 L 411) POCT-GLUCOSE [id number] 05:42:14 Test Item Value Reference Range Interpretation Comments POC-GLUCOSE METER 140 mg/dL 70-110 H : TESTED A T [facility] (BEAKER) (test code [address]ERRYWOO [address], = 1538) [place] [address] 0: Rail Technician/Techni whitney ID = [id number] for Armando Novoa [id number] 00:04:03 Test Item Value Reference Range Interpretation Comments D-DIMER QUANTITATIVE 2.19 MG/L FEU <0.50 H Final Information (BEAKER) (test code = (Auto Output) 671) REGARDING D-DIMER RESULTS: The 98% NPV (Negative Predictive Value) for DVT/PE exclusion is 0.50 mg/LFEU as suggested by the tip length checker and as approved by the FDA.B-TYPE NATRIURETIC FACTOR (BNP)2022-02-20 00:01:32 Test Item Value Reference Range Interpretation Comments B-TYPE NATRIURETIC PEPTIDE (BEAKER) 755 pg/mL 0-100 H (test code = 700) Rail Technician ID - [id number] W/PLT COUNT & AUTO [id number] 23:55:41 Test Item Value Reference Range Interpretation Comments WHITE BLOOD CELL COUNT (BEAKER) 8.3 K/ L 4.0-10.0 (test code = 775) RED BLOOD CELL COUNT (BEAKER) 3.99 M/ L 4.00-5.00 L (test code = 761) HEMOGLOBIN (BEAKER) (test code = 10.5 GM/DL 12.0-15.5 L 410) HEMATOCRIT (BEAKER) (test code = 34.9 % 36.0-46.0 L 411) MEAN CORPUSCULAR VOLUME (BEAKER) 88 fL 82-99 (test code = 753) MEAN CORPUSCULAR HEMOGLOBIN 26.3 pg 27.0-33.0 L (BEAKER) (test code = 751) MEAN CORPUSCULAR HEMOGLOBIN CONC 30.1 GM/DL 32.0-36.0 L (BEAKER) (test code = 752) RED CELL DISTRIBUTION WIDTH 16.8 % 12.0-15.0 H (BEAKER) (test code = 412) PLATELET COUNT (BEAKER) (test 236 K/CU MM 150-430 code = 756) MEAN PLATELET VOLUME (BEAKER) 9.9 fL 6.0-11.5 (test code = 754) NUCLEATED RED BLOOD CELLS 0 /100 WBC 0-0 (BEAKER) (test code = 413) NEUTROPHILS RELATIVE PERCENT 87 % (BEAKER) (test code = 429) LYMPHOCYTES RELATIVE PERCENT 6 % (BEAKER) (test code = 430) MONOCYTES RELATIVE PERCENT 6 % (BEAKER) (test code = 431) EOSINOPHILS RELATIVE PERCENT 1 % (BEAKER) (test code = 432) BASOPHILS RELATIVE PERCENT 0 % (BEAKER) (test code = 437) NEUTROPHILS ABSOLUTE COUNT 7.28 K/ L 1.80-8.00 (BEAKER) (test code = 670) LYMPHOCYTES ABSOLUTE COUNT 0.49 K/ L 1.48-4.50 L (BEAKER) (test code = 414) MONOCYTES ABSOLUTE COUNT (BEAKER) 0.46 K/ L 0.00-1.30 (test code = 415) EOSINOPHILS ABSOLUTE COUNT 0.05 K/ L 0.00-0.50 (BEAKER) (test code = 416) BASOPHILS ABSOLUTE COUNT (BEAKER) 0.03 K/ L 0.00-0.20 (test code = 417) IMMATURE GRANULOCYTES-RELATIVE 0.20 % 0.00-0.00 H PERCENT (BEAKER) (test code = 2801) BASIC METABOLIC [id number] 23:55:20 Test Item Value Reference Range Interpretation Comments SODIUM (BEAKER) 137 meq/L 135-148 (test code = 381) POTASSIUM 4.1 meq/L 3.6-5.5 (BEAKER) (test code = 379) CHLORIDE (BEAKER) 107 meq/L 98-106 H (test code = 382) CO2 (BEAKER) 22 meq/L 20-29 (test code = 355) BLOOD UREA 18 mg/dL 10-26 NITROGEN (BEAKER) (test code = 354) CREATININE 0.93 mg/dL 0.50-1.20 (BEAKER) (test code = 358) GLUCOSE RANDOM 181 mg/dL 70-110 H (BEAKER) (test code = 652) CALCIUM (BEAKER) 9.0 mg/dL 8.5-10.5 (test code = 697) EGFR (BEAKER) 66 Interpretatio n of eGFR (test code = mL/min/1.73 values Stage De scription 1092) sq m Result G1 Ilda l or high >=90 G2 Mildly decreased 60-89 G3a Mildl y to moderately 45-5 9 G3b Moderately to s everely 30-44 G4 Severl y decreased 15-29 G5 Kidney failure <15Reported eGF R is based on the CKD-EPI 2021 equation that d oes not use a race coefficientEsti mated GFR is not as accur ate as Creatinine Sherry nat in predicting glom erular filtration rate . Estimated GFR is not appl icable for dialysis patien ts Rail Technician ID - BRUCEPOCT-GLUCOSE [id number] 23:45:07 Test Item Value Reference Range Interpretation Comments POC-GLUCOSE METER 170 mg/dL 70-110 H : TESTED A [facility] (BEAKER) (test code CHARANJITOO Moises [address], = 1538) [place] [address] 0: Rail Technician/Techni whitney ID = [id number] for Armando Novoa Blood gas, [id number] 23:26:43 Test Item Value Reference Range Interpretation Comments pH, Arterial (test code 7.32 7.35-7.45 L = 2744-1) pCO2, Arterial (test 44 See_Comment [Autom ated code = 2018-09) message] The system which generated this result transmitted reference range : 35 - 45 mm Hg. The reference range was not used to interpret this result as normal/abnormal . pO2, Arterial (test 57 See_Comment L [Automa max code = 2703-7) message] The system which generated this result transmitted reference range : 80 - 90 mm Hg. The reference range was not used to interpret this result as normal/abnormal . O2 Sat, Arterial (test 89.1 % 96.0-97.0 L code = 2708-6) HCO3, Arterial (test 23 mmol/L 21-29 code = 1960-4) Base Excess, Arterial -3.9 mmol/L -2.0-3.0 L (test code = 1925-7) Patient Temperature 36.0 (test code = 8310-5) Lab Interpretation Abnormal (test code = 94252-9) [facility] [id number] 23:26:43 Test Item Value Reference Range Interpretation Comments pH, Arterial (test code 7.32 7.35-7.45 L = 2744-1) pCO2, Arterial (test 44 See_Comment [Autom ated code = 2018-09) message] The system which generated this result transmitted reference range : 35 - 45 mm Hg. The reference range was not used to interpret this result as normal/abnormal . pO2, Arterial (test 57 See_Comment L [Automa max code = 2703-7) message] The system which generated this result transmitted reference range : 80 - 90 mm Hg. The reference range was not used to interpret this result as normal/abnormal . O2 Sat, Arterial (test 89.1 % 96.0-97.0 L code = 2708-6) HCO3, Arterial (test 23 mmol/L 21-29 code = 1960-4) Base Excess, Arterial -3.9 mmol/L -2.0-3.0 L (test code = 1925-7) Patient Temperature 36.0 (test code = 8310-5) Lab Interpretation Abnormal (test code = 25379-8) [facility], [id number] 23:26:43 Test Item Value Reference Range Interpretation Comments PH ARTERIAL (BEAKER) (test code = 7.32 7.35-7.45 L 383) PCO2 ARTERIAL (BEAKER) (test code 44 mm Hg 35-45 = 384) PO2 ARTERIAL (BEAKER) (test code 57 mm Hg 80-90 L = 385) O2 SATURATION ARTERIAL (BEAKER) 89.1 % 96.0-97.0 L (test code = 386) HCO3 ARTERIAL (BEAKER) (test code 23 mmol/L 29 = 388) BASE EXCESS ARTERIAL (BEAKER) -3.9 mmol/L -2.0-3.0 L (test code = 387) PATIENT TEMPERATURE (BEAKER) 36.0 (test code = 1818) [id number] 00:11:00 Test Item Value Reference Range Interpretation Comments GLUBED (test code = GLUBED) 115 MG/DL 70-105 H [id number] 12:02:00 Test Item Value Reference Range Interpretation Comments GLUBED (test code = GLUBED) 148 MG/DL 70-105 H [id number] 00:29:00 Test Item Value Reference Range Interpretation Comments GLUBED (test code = GLUBED) 124 MG/DL 70-105 H [id number] 20:43:00 Test Item Value Reference Range Interpretation Comments GLUBED (test code = GLUBED) 142 MG/DL 70-105 H [id number] 13:20:00 Test Item Value Reference Range Interpretation Comments GLUBED (test code = GLUBED) 180 MG/DL 70-105 H [id number] 05:56:00 Test Item Value Reference Range Interpretation Comments GLUBED (test code = GLUBED) 123 MG/DL 70-105 H [id number] 00:28:00 Test Item Value Reference Range Interpretation Comments GLUBED (test code = GLUBED) 104 MG/DL 70-105 N B-TYPE NATRIURETIC [id number] 08:07:00 Test Item Value Reference Range Interpretation Comments B-TYPE NATRIURETIC PEPTIDE (test 793 pg/mL <100 H code = BNP) BASIC METABOLIC [id number] 08:07:00 Test Item Value Reference Range Interpretation [...] New = CA) Reference Range Mar 2020 [id number] 08:07:00 Test Item Value Reference Range Interpretation Comments PHOSPHOROUS (test code 2.9 mg/dL 2.4-5.1 N Pleas e note: New = PHOS) Reference Range Mar 2020 [id number] 08:07:00 Test Item Value Reference Range Interpretation Comments MAGNESIUM (test code = 1.8 mg/dL 1.6-2.6 N Pleas e note: New MAG) Reference Range Mar 2020 CBC W/AUTO [id number] 07:49:00 Test Item Value Reference Range Interpretation [...] = BA#) 0.03 x10 3/uL 0.0-0.20 N [id number] 07:40:00 Test Item Value Reference Range Interpretation Comments GLUBED (test code = GLUBED) 115 MG/DL 70-105 H [id number] 00:35:00 Test Item Value Reference Range Interpretation Comments GLUBED (test code = GLUBED) 126 MG/DL 70-105 H [id number] 17:23:00 Test Item Value Reference Range Interpretation Comments GLUBED (test code = GLUBED) 121 MG/DL 70-105 H [id number] 11:54:00 Test Item Value Reference Range Interpretation Comments GLUBED (test code = GLUBED) 125 MG/DL 70-105 H [id number] 07:41:00 Test Item Value Reference Range Interpretation Comments GLUBED (test code = GLUBED) 116 MG/DL 70-105 H COMPREHENSIVE METABOLIC [id number] 07:16:00 Test Item Value Reference Range Interpretation [...] ALKP) Reference Range Mar 2020 CBC W/AUTO [id number] 07:07:00 Test Item Value Reference Range Interpretation [...] = BA#) 0.01 x10 3/uL 0.0-0.20 N [id number] 06:53:00 Test Item Value Reference Range Interpretation Comments GLUBED (test code = GLUBED) 108 MG/DL 70-105 H [id number] 00:32:00 Test Item Value Reference Range Interpretation Comments GLUBED (test code = GLUBED) 88 MG/DL 70-105 N [id number] 17:26:00 Test Item Value Reference Range Interpretation Comments GLUBED (test code = GLUBED) 103 MG/DL 70-105 N [id number] 12:28:00 Test Item Value Reference Range Interpretation Comments GLUBED (test code = GLUBED) 105 MG/DL 70-105 N [id number] 10:12:00 Test Item Value Reference Range Interpretation Comments GLUBED (test code = GLUBED) 166 MG/DL 70-105 H [id number] 06:35:00 Test Item Value Reference Range Interpretation Comments GLUBED (test code = GLUBED) 117 MG/DL 70-105 H [id number] 02:42:00 Test Item Value Reference Range Interpretation Comments GLUBED (test code = GLUBED) 116 MG/DL 70-105 H [id number] 12:06:00 Test Item Value Reference Range Interpretation Comments GLUBED (test code = GLUBED) 151 MG/DL 70-105 H - XR CHEST 1 [id number] 08:30:00 [facility] : 1950 Sex: FPatient Name: CYNDI FERRELL Unit No: [id number] EXAMS: CPT CODE: [id number] XR CHEST 1 V 12837 CHEST 1 VIEW: INDICATION: chf COMPARISON: There [...] Holly MD; Alberto Rodriguez MD Technologist: Gavin Ledesma Fluoro Time: DAP (Gy m2): Air Kerma (mGy): Trscr Dt/Tm: 05/22/2021 (0830) by:[email or web address] Printed Date/Time: 05/22/2021 (0833) Name: CYNDI FERRELL [facility] Phys: Alberto Carrizales [address] : 1950 Age: 70 Sex: [place] [address] Loc: P.0635 1 Exam Date: 09/2021 Status: ADM IN PH: FAX: PAGE 1 Signed ReportBASIC METABOLIC PANEL 2021-05-22 07:12:00 Test Item Value Reference Range Interpretation [...] CA) Reference Range Mar 2020 B-TYPE NATRIURETIC [id number] 07:12:00 Test Item Value Reference Range Interpretation Comments B-TYPE NATRIURETIC PEPTIDE (test 857 pg/mL <100 H code = BNP) [id number] 00:21:00 Test Item Value Reference Range Interpretation Comments GLUBED (test code = GLUBED) 155 MG/DL 70-105 H [id number] 17:53:00 Test Item Value Reference Range Interpretation Comments MAGNESIUM (test code = 1.5 mg/dL 1.6-2.6 L Pleas e note: New MAG) Reference Range Mar 2020 [id number] 17:23:00 Test Item Value Reference Range Interpretation Comments GLUBED (test code = GLUBED) 170 MG/DL 70-105 H [id number] 13:04:00 Test Item Value Reference Range Interpretation Comments GLUBED (test code = GLUBED) 153 MG/DL 70-105 H BASIC METABOLIC [id number] 11:13:00 Test Item Value Reference Range Interpretation [...] New = CA) Reference Range Mar 2020 [id number] 07:33:00 Test Item Value Reference Range Interpretation Comments GLUBED (test code = GLUBED) 140 MG/DL 70-105 H [id number] 00:56:00 Test Item Value Reference Range Interpretation Comments GLUBED (test code = GLUBED) 118 MG/DL 70-105 H [id number] 17:29:00 Test Item Value Reference Range Interpretation Comments GLUBED (test code = GLUBED) 118 MG/DL 70-105 H [id number] 12:33:00 Test Item Value Reference Range Interpretation Comments GLUBED (test code = GLUBED) 134 MG/DL 70-105 H BASIC METABOLIC [id number] 08:34:00 Test Item Value Reference Range Interpretation [...] CA) Reference Range Mar 2020 CBC W/AUTO [id number] 08:07:00 Test Item Value Reference Range Interpretation [...] = BA#) 0.00 x10 3/uL 0.0-0.20 N [id number] 05:32:00 Test Item Value Reference Range Interpretation Comments GLUBED (test code = GLUBED) 118 MG/DL 70-105 H [id number] 00:15:00 Test Item Value Reference Range Interpretation Comments GLUBED (test code = GLUBED) 99 MG/DL 70-105 N [id number] 12:09:00 Test Item Value Reference Range Interpretation Comments GLUBED (test code = GLUBED) 184 MG/DL 70-105 H [id number] 08:04:00 Test Item Value Reference Range Interpretation Comments GLUBED (test code = GLUBED) 193 MG/DL 70-105 H [id number] 08:04:00 Test Item Value Reference Range Interpretation Comments GLUBED (test code = GLUBED) 189 MG/DL 70-105 H BASIC METABOLIC [id number] 07:37:00 Test Item Value Reference Range Interpretation [...] CA) Reference Range Mar 2020 COMPREHENSIVE METABOLIC [id number] 07:37:00 Test Item Value Reference Range Interpretation [...] ALKP) Reference Range Mar 2020 CBC W/AUTO [id number] 07:30:00 Test Item Value Reference Range Interpretation [...] = BA#) 0.01 x10 3/uL 0.0-0.20 N [id number] 17:32:00 Test Item Value Reference Range Interpretation Comments GLUBED (test code = GLUBED) 192 MG/DL 70-105 H [id number] 13:01:00 Test Item Value Reference Range Interpretation Comments GLUBED (test code = GLUBED) 205 MG/DL 70-105 H [id number] 13:01:00 Test Item Value Reference Range Interpretation Comments GLUBED (test code = GLUBED) 213 MG/DL 70-105 H [id number] 13:01:00 Test Item Value Reference Range Interpretation Comments GLUBED (test code = GLUBED) 257 MG/DL 70-105 H - XR ABDOMEN [id number] 08:26:00 [facility] : 1950 Sex: FPatient Name: CYNDI FERRELL Unit No: [id number] EXAMS: CPT CODE: [id number] XR ABDOMEN 1V 61131 ABDOMEN, SINGLE VIEW DICTATION LOCATION A1 HISTORY: [...] Dt/Tm: 05/18/2021 (08) by:Efren Printed Date/Time: 05/18/2021 (08) Name:CYNDI FERRELL [facility] Phys: Hoang Johnson Jr, MD [address] : 1950 Age: 70 Sex: [place] [address] Loc: P.0635 1 Exam Date: 05/18/2021 Status: ADM IN PH: FAX: PAGE 1 Signed ReportCOMPREHENSIVE METABOLIC [id number] 06:58:00 Test Item Value Reference Range Interpretation [...] LDL Cholesterol<1 00mg/dL : Desirable LDL -C ecwbaedjydyhl39 0-159mg /dL: Borderline High Risk LDL-C twntjguvlwvif76 0-189mg /dL: High risk LDL-C concentration H DL-LDL Cholesterol is affected by a n umber of factors such as smoking, age an d sex.~~~~~~~~~~~ ~~~~~~~ ~~~~~~~~~~~~~~~ ~~~~~~~ ~~~~~~~~~~~~~~~ ~~~~~ HGBA1C - GLYCOSYLATED [id number] 06:58:00 Test Item Value Reference Range Interpretation Comments GLYCOSYLATED HEMOGLOBIN 6.9 % <5.7 H Diab etic >/= (HA1C) (test code = 6.5%Pred iabetes GLYHGB) 5.7-6.4%Normal < 5.7% CBC W/AUTO [id number] 06:40:00 Test Item Value Reference Range Interpretation [...] = BA#) 0.00 x10 3/uL 0.0-0.20 N [id number] 04:52:00 Test Item Value Reference Range Interpretation Comments GLUBED (test code = GLUBED) 200 MG/DL 70-105 H [id number] 04:52:00 Test Item Value Reference Range Interpretation Comments GLUBED (test code = GLUBED) 260 MG/DL 70-105 H [id number] 17:59:00 Test Item Value Reference Range Interpretation Comments GLUBED (test code = GLUBED) 221 MG/DL 70-105 H [id number] 17:59:00 Test Item Value Reference Range Interpretation Comments GLUBED (test code = GLUBED) 207 MG/DL 70-105 H - CT ABD PELVIS [id number] 12:45:00 [facility] : 1950 Sex: FPatient Name: CYNDI FERRELL Unit No: [id number] EXAMS: CPT CODE: [id number] CT ABD PELVIS W/CONT 69903 EXAM: - CT ABD PELVIS W/CONT Location: [...] the sigmoid colon. There is abnormal mural thickeningof short section of sigmoid colon measuring approximately 5 cm possibly sequelae of diverticulitis. There is minimal infiltration in the adjacent sigmoid mesial colon. Underlying lesion is not entirelyexcluded. Small gas and stool is seen more [...] Vessels: No visualized abnormality. Name: CYNDI FERRELL [facility] Phys: Ho Chavez [address] : 1950 Age: 70 Sex: [place] [address] Loc: P.0635 1 Exam Date: 05/17/2021 Status: ADM IN : FAX: PAGE 1 Signed Report (CONTINUED) Patient Name: CYNDI FERRELL Unit No: [id number] EXAMS: CPT CODE: [id number] CT ABD PELVIS W/CONT 18755 (Continued) Lymph nodes: No lymphadenopathy Peritoneum/retroperitoneum: No [...] loops. 2. Mild dependent atelectasis versus pneumonitis. 3.Cardiomegaly and pulmonary venous hypertension. 4. Adrenal hyperplasia versus adenomatosis. 5. Nonspecific small free pelvic fluid. Uterus is surgically absent. at 1245 Reported and signed by: DEREK GARCIA M.D. CC: Kt Holly MD; Ho Cody MD Technologist: Lester Winkler CTDI: 14.37 DLP: 892 Trscr Dt/Tm: 05/17/2021 (6503) by:[email or web address] Printed Date/Time: 05/17/2021 (5998) Name: CYNDI FERRELL [facility] Phys: Ho Chavez [address] : 1950 Age: 70 Sex: [place] [address] Loc: P.0635 1 Exam Date: 05/17/2021 Status: ADM IN PH: FAX: PAGE 2 Signed Report- US ABDOMEN [id number] 11:02:00 [facility] : 1950 Sex: FPatient Name: CYNDI FERRELL Unit No: [id number] EXAMS: CPT CODE: [id number] US ABDOMEN COMPLETE 42983 EXAM: ABDOMINAL ULTRASOUND COMPLETE INDICATION: abdominal pain [...] SPLEEN: The spleen measures 11.7 cm. No focalsplenic lesions are seen. KIDNEY: The right kidney [...] abdominal abnormality is clearly seen. [facility]: Kt Wilson MD [address] DOB: 1950 Age: 70 Sex: [place] [address] Loc: P.0635 1 Exam Date: 05/17/2021 Status: ADM IN PH: FAX: PAGE 1 Signed Report (CONTINUED) Patient Name: CYNDI FERRELL Unit No: [id number] EXAMS: CPT CODE: [id number] US ABDOMEN COMPLETE 78747 (Continued) at 1102 Reported and signed by: SHELIA CROWELL M.D. CC: Kt Burnett MD Technologist: TERI CONNOR RDMS (AB) Probe: Trscr Dt/Tm: 05/17/2021 (1102) by:[email or web address] Printed Date/Time: 05/17/2021 (1106) [facility]: Kt Wilson MD [address]: 1950 Age: 70 Sex: [place] [address] Loc: [phone] Exam Date: 05/17/2021 Status: ADM IN PH: FAX: PAGE 2 Signed Report- XR ABDOMEN [id number] 10:33:00 [facility] : 1950 Sex: FPatient Name: CYNDI FERRELL Unit No: [id number] EXAMS: CPT CODE: [id number] XR ABDOMEN 1V 88679 EXAM: XR ABDOMEN 1 VIEW INDICATION: NG TUBE PLACEMENT LOCATION: A1 COMPARISON: None. TECHNIQUE: AP view ofthe abdomen. FINDINGS: Nasogastric tube has its tip [...] by:[email or web address] Printed Date/Time: 05/17/2021 (1036) Name: CYNDI FERRELL [facility] Phys: Lorenzo Moses DO [address]DOB: 1950 Age: 70 Sex: F [place] [address] [facility] [id number] Loc: P.0635 1 Exam Date: 05/17 Status: ADM IN PH: FAX: PAGE 1 Signed [id number] 08:49:00 Test Item Value Reference Range Interpretation Comments MAGNESIUM (test code = 1.6 mg/dL 1.6-2.6 N Pleas e note: New MAG) Reference Range Mar 2020 THYROID STIMULATING [id number] 08:49:00 Test Item Value Reference Range Interpretation Comments THYROID STIMULATING 1.25 mIU/mL 0.55-4.78 N Please n ote: New HORMONE (test code = Referen ce Range Mar TSH) 2020 COMPREHENSIVE METABOLIC [id number] 08:49:00 Test Item Value Reference Range Interpretation [...] Range Feb code = ALKP) 2020 PROTHROMBIN [id number] 08:35:00 Test Item Value Reference Range Interpretation [...] 2.5-3.5recurren t systemic emboli sm. THROMBOPLASTIN TIME [id number] 08:35:00 Test Item Value Reference Range Interpretation Comments THROMBOPLASTIN TIME 30.6 SECONDS 23.8-34.8 N INTERPRE TATIVE PARTIAL (test code = DATA: erapeutic PTT) range: Unfractionated heparin:55 - 80 seconds Argatroban:1.5 to 3 times the basel ine PTT CBC W/AUTO [id number] 08:27:00 Test Item Value Reference Range Interpretation [...]
[2022-03-23] MEDS ORDERED: DIPHENHYDRAMINE 50 MG/ML VIAL ONE (12:27)
[2022-03-23] MEDS ORDERED: METOCLOPRAMIDE 10 MG/2mL INJ ONE (12:27)
[2022-03-23] MEDS ORDERED: NA CHLORIDE 0.9% 500 ML ONE (12:28)
[2022-03-23] MEDS ORDERED: dexAMETHasone 10 MG/ML VIAL ONE (12:28)
--- NOTE | 2022-03-23 14:06 | ER ---
Nurse's Notes [facility] Name: Blanka Ferrell Age: 71 yrs Sex: Female : 1950 Arrival Date: 03/23/2022 Time: 11:26 Bed 23 Private MD: Diagnosis: Migraine without aura, not intractable;Vomiting Presentation: 03/23 11:42 Chief complaint: Patient states: Migraine/Vomiting. Onset 1135. Coronavirus screen: At ld1 this time, the client does not indicate any symptoms associated with coronavirus-19. Ebola Screen: No symptoms or risks identified at this time. Initial Sepsis Screen: Does the patient meet any 2 criteria? No. Patient's initial sepsis screen is negative. Does the patient have a suspected source of infection? No. Patient's initial sepsis screen is negative. Risk Assessment: Do you want to hurt yourself or someone else? Patient reports no desire to harm self or others. Onset of symptoms was March 23, 2022. 11:42 Method Of Arrival: Ambulatory ld1 11:42 Acuity: THALIA 3 ld1 Triage Assessment: 11:42 General: Appears in no apparent distress. comfortable, Behavior is calm, cooperative, ld1 appropriate for age. Pain: Complains of pain in face Pain does not radiate. Pain currently is 8 out of 10 on a pain scale. EENT: No signs and/or symptoms were reported regarding the EENT system. Neuro: Level of Consciousness is awake, alert, obeys commands, Oriented to person, place, time, situation. Neuro: Reports headache in left. Cardiovascular: Capillary refill < 3 seconds Patient's skin is warm and dry. Respiratory: Airway is patent Respiratory effort is even, unlabored. GI: Abdomen is round non-distended, Reports nausea, vomiting. : No signs and/or symptoms were reported regarding the genitourinary system. Derm: No signs and/or symptoms reported regarding the dermatologic system. Musculoskeletal: No signs and/or symptoms reported regarding the musculoskeletal system. Historical: - Allergies: 11:41 Imitrex; ld1 - PMHx: 11:41 Anxiety; Chronic obstructive lung disease; Congestive heart failure; Diabetes - IDDM; ld1 Hypertension; Migraines; Thyroid problem; TIA; - PSHx: 11:41 section; Cholecystectomy; hysterectomy; ld1 - Immunization history:: Adult Immunizations up to date, Client reports receiving the 2nd dose of the Covid vaccine. - Social history:: Smoking status: Patient denies any tobacco usage or history of. Patient/guardian denies using alcohol. Screenin:00 [facility] ED Fall Risk Assessment (Adult) History of falling in the last 3 months, eh3 including since admission No falls in past 3 months (0 pts) Confusion or Disorientation No (0 pts) Intoxicated or Sedated No (0 pts) Impaired Gait No (0 pts) Mobility Assist Device Used Yes (1 pt) Altered Elimination Yes (1 pt) Score/Fall Risk Level 0 - 2 = Low Risk. Abuse screen: Denies threats or abuse. Denies injuries from another. Nutritional screening: No deficits noted. Tuberculosis screening: No symptoms or risk factors identified. Assessment: 12:00 General: Appears in no apparent distress. uncomfortable, Behavior is calm, cooperative, eh3 appropriate for age. Pain: Complains of pain in top of head, forehead, left eye and left jewish Pain does not radiate. Pain currently is 9 out of 10 on a pain scale. Neuro: Level of Consciousness is awake, alert, obeys commands, Oriented to person, place, time, situation. Neuro: Reports difficulty swallowing since 1145 today. Cardiovascular: Capillary refill < 3 seconds Patient's skin is warm and dry. Respiratory: Airway is patent Respiratory effort is even, unlabored, Respiratory pattern is regular, symmetrical. GI: Abdomen is round non-distended, Reports indigestion, nausea, vomiting. : No signs and/or symptoms were reported regarding the genitourinary system. EENT: No signs and/or symptoms were reported regarding the EENT system. Derm: No signs and/or symptoms reported regarding the dermatologic system. Skin is pink, warm \T\ dry. Musculoskeletal: No signs and/or symptoms reported regarding the musculoskeletal system. Circulation, motion, and sensation intact. Range of motion: intact in all extremities. 13:00 Reassessment: Patient appears in no apparent distress at this time. Patient and/or eh3 family updated on plan of care and expected duration. Pain level reassessed. Patient is alert, oriented x 3, equal unlabored respirations, skin warm/dry/pink. 14:00 Reassessment: Patient appears in no apparent distress at this time. Patient and/or eh3 family updated on plan of care and expected duration. Pain level reassessed. Patient is alert, oriented x 3, equal unlabored respirations, skin warm/dry/pink. Patient states symptoms have improved. Vital Signs: 11:42 BP 148 / 76; Pulse 86; Resp 18; Temp 98.3(O); Pulse Ox 97% on R/A; Weight 108.86 kg; ld1 Height 5 ft. 5 in. (165.10 cm); Pain 8/10; 12:00 BP 139 / 80; Pulse 88; Resp 16; Pulse Ox 98% on R/A; eh3 13:00 BP 135 / 76; Pulse 82; Resp 18; Pulse Ox 97% on R/A; eh3 14:00 BP 135 / 94; Pulse 82; Resp 18; Pulse Ox 97% on R/A; eh3 11:42 Body Mass Index 39.94 (108.86 kg, 165.10 cm) ld1 ED Course: 11:26 Patient arrived in ED. rg4 11:35 Sp Rivera DO is Attending Physician. ms3 11:42 Arm band placed on right wrist. ld1 11:43 Triage completed. ld1 12:00 Patient has correct armband on for positive identification. Bed in low position. Call eh3 light in reach. Side rails up X2. Client placed on continuous cardiac and pulse oximetry monitoring. NIBP monitoring applied. Door closed. Noise minimized. Lights dimmed. Warm blanket given. Pillow given. 12:12 Leesa Schultz, RN is Primary Nurse. eh3 12:48 Missed attempt(s): 22 gauge in left antecubital area. Bleeding controlled, band aid eh3 applied, catheter tip intact. 14:05 Haroldo Cornelius MD is Referral Physician. ms3 14:26 No provider procedures requiring assistance completed. IV discontinued, intact, eh3 bleeding controlled, No redness/swelling at site. Pressure dressing applied. Administered Medications: 12:45 Drug: Reglan (metoCLOPramide) 10 mg Route: IVP; Site: right antecubital; eh3 14:28 Follow up: Response: Pain is decreased eh3 12:45 Drug: Benadryl (diphenhydrAMINE) 25 mg Route: IVP; Site: right antecubital; eh3 14:28 Follow up: Response: Pain is decreased eh3 12:45 Drug: Decadron - Dexamethasone 8 mg Route: IVP; Site: right antecubital; 3 14:28 Follow up: Response: Pain is decreased eh3 12:45 Drug: NS 0.9% 500 ml Route: IV; Rate: 1000 ml/hr; Site: right antecubital; 3 14:28 Follow up: IV Status: Completed infusion; IV Intake: 500ml 3 Medication: 14:25 VIS not applicable for this client. eh3 Intake: 14:28 IV: 500ml; Total: 500ml. 3 Outcome: 14:06 Discharge ordered by MD. ms3 14:26 Discharged to home via wheelchair. 3 14:26 Condition: stable 14:26 Discharge instructions given to patient, Instructed on discharge instructions, follow up and referral plans. Demonstrated understanding of instructions, follow-up care. 14:29 Patient left the ED. 3 Signatures: Mary Franco rg4 Sp Rivera DO DO ms3 Stephanie Negron RN RN ld1 Leesa Schultz RN RN eh3
--- NOTE | 2022-03-23 14:06 | EDPHYS ---
Physician Documentation [facility] Name: Blanka Ferrell Age: 71 yrs Sex: Female : 1950 Arrival Date: 03/23/2022 Time: 11:26 Bed 23 Private MD: ED Physician Sp Rivera HPI: 03/23 14:06 This 71 yrs old Black Female presents to ER via Ambulatory with complaints of Vomiting, ms3 Migraine. 14:06 71-year-old female with past medical history of anxiety, chronic obstructive lung ms3 disease, congestive heart failure, migraines, hypertension, hypothyroidism presents to the emergency department while waiting with her daughter. Patient states she developed a migraine that is classic of her migraines and began vomiting. Patient states her last migraine was 2 weeks ago. Patient states she has left-sided pain she rates an 8/10. Patient states this is the typical location of her migraines. Patient states most the time when she has migraine she does have emesis. Patient states last CT of her head was performed 2 weeks ago and was negative. Patient denies alleviating or inciting factors at this time.. Historical: - Allergies: 11:41 Imitrex; ld1 - PMHx: 11:41 Anxiety; Chronic obstructive lung disease; Congestive heart failure; Diabetes - IDDM; ld1 Hypertension; Migraines; Thyroid problem; TIA; - PSHx: 11:41 section; Cholecystectomy; hysterectomy; ld1 - Immunization history:: Adult Immunizations up to date, Client reports receiving the 2nd dose of the Covid vaccine. - Social history:: Smoking status: Patient denies any tobacco usage or history of. Patient/guardian denies using alcohol. ROS: 14:06 Constitutional: Negative for fever, and chills. Neck: Negative for injury, pain, and ms3 swelling, Cardiovascular: Negative for chest pain, and palpitations. Respiratory: Negative for shortness of breath, cough, wheezing, and pleuritic chest pain, MS/Extremity: Negative for injury and deformity, Skin: Negative for injury, rash, and discoloration. 14:06 Abdomen/GI: Positive for nausea and vomiting. 14:06 Neuro: Positive for headache. 14:06 All other systems are negative. Exam: 14:06 Constitutional: This is a well developed, well nourished patient who is awake, alert, ms3 and in no acute distress. Head/Face: Normocephalic, atraumatic. Neck: Trachea midline, no cervical lymphadenopathy. Supple, full range of motion without nuchal rigidity, or vertebral point tenderness. No Meningismus. Chest/axilla: Normal chest wall appearance and motion. Nontender with no deformity. Cardiovascular: Regular rate and rhythm with a normal S1 and S2. No gallops, murmurs, or rubs. Normal PMI, no JVD. No pulse deficits. Respiratory: Lungs have equal breath sounds bilaterally, clear to auscultation and percussion. No rales, rhonchi or wheezes noted. No increased work of breathing, no retractions or nasal flaring. Abdomen/GI: Soft, non-tender, with normal bowel sounds. No distension or tympany. No guarding or rebound. No evidence of tenderness throughout. Skin: Warm, dry with normal turgor. Normal color with no rashes, no lesions, and no evidence of cellulitis. MS/ Extremity: Pulses equal, no cyanosis. Neurovascular intact. Full, normal range of motion. 14:06 Neuro: Orientation: is normal, Mentation: is normal, Memory: Cranial nerves: CN II- XII are normal as tested, Cerebellar function: normal finger to nose testing, Motor: is normal, no acute changes, moves all fours, Sensation: is normal, Gait: is steady, at a normal pace. Vital Signs: 11:42 BP 148 / 76; Pulse 86; Resp 18; Temp 98.3(O); Pulse Ox 97% on R/A; Weight 108.86 kg; ld1 Height 5 ft. 5 in. (165.10 cm); Pain 8/10; 12:00 BP 139 / 80; Pulse 88; Resp 16; Pulse Ox 98% on R/A; eh3 13:00 BP 135 / 76; Pulse 82; Resp 18; Pulse Ox 97% on R/A; eh3 14:00 BP 135 / 94; Pulse 82; Resp 18; Pulse Ox 97% on R/A; eh3 11:42 Body Mass Index 39.94 (108.86 kg, 165.10 cm) ld1 MDM: 11:48 Patient medically screened. ms3 14:06 Differential diagnosis: Migraine vs Vomiting vs Elevated Blood pressure. Data reviewed: ms3 vital signs, nurses notes, and as a result, I will discharge patient. I considered the following discharge prescriptions or medication management in the emergency department Medications were administered in the Emergency Department. See MAR. Test considered but Not performed: CT: Patient states negative CT head 2 weeks ago. Patient states symptoms are classic of her migraines.. Counseling: I had a detailed discussion with the patient and/or guardian regarding: the historical points, exam findings, and any diagnostic results supporting the discharge/admit diagnosis, the need for outpatient follow up, to return to the emergency department if symptoms worsen or persist or if there are any questions or concerns that arise at home. ED course: Patient symptoms improved at this time. Patient is alert and oriented x4, no apparent distress, nontoxic, speaking full sentences. Patient to follow-up with Dr. Cornelius in 2 to 3 days. Patient or stands agrees with plan. All questions were answered. Return precautions discussed include worsening symptoms, or any other concerns. Administered Medications: 12:45 Drug: Reglan (metoCLOPramide) 10 mg Route: IVP; Site: right antecubital; eh3 14:28 Follow up: Response: Pain is decreased eh3 12:45 Drug: Benadryl (diphenhydrAMINE) 25 mg Route: IVP; Site: right antecubital; eh3 14:28 Follow up: Response: Pain is decreased eh3 12:45 Drug: Decadron - Dexamethasone 8 mg Route: IVP; Site: right antecubital; eh3 14:28 Follow up: Response: Pain is decreased eh3 12:45 Drug: NS 0.9% 500 ml Route: IV; Rate: 1000 ml/hr; Site: right antecubital; eh3 14:28 Follow up: IV Status: Completed infusion; IV Intake: 500ml eh3 Disposition Summary: 03/23/22 14:06 Discharge Ordered Location: Home ms3 Condition: Stable ms3 Diagnosis - Migraine without aura, not intractable ms3 - Vomiting ms3 Followup: ms3 - With: Haroldo Cornelius MD - When: 2 - 3 days - Reason: Recheck today's complaints Discharge Instructions: - Discharge Summary Sheet ms3 - Migraine Headache ms3 Forms: - Medication Reconciliation Form ms3 - Thank You Letter ms3 - Antibiotic Education ms3 - Prescription Opioid Use ms3 Signatures: Sp Rivera DO DO ms3 Stephanie Negron, RN RN ld1 Leesa Schultz, RN RN eh3
[2022-03-23 14:43] VITALS: TEMP 98.3
[2022-03-23 14:45] VITALS: O2SAT 97
[2022-03-23 14:47] VITALS: BP 135/94
== END 2022-03-23 14:29 | disposition home or self-care (01) ==
LOC: ER 11:25
DX: G43.009 Migraine without aura, not intractable, without status migrainosus (principal); R11.10 Vomiting, unspecified; E11.9 Type 2 diabetes mellitus without complications; J44.9 Chronic obstructive pulmonary disease, unspecified; I10 Essential (primary) hypertension; I50.9 Heart failure, unspecified; Z88.8 Allergy status to other drugs, medicaments and biological substances
CPT/HCPCS: J2765; J1200; J1100; J7040

== ENCOUNTER 2022-06-26 13:45 | Inpatient (IN) | payer OTHER ==
--- OUTSIDE RECORDS SUMMARY | 2022-06-26 13:58 | XMS REPORT | Continuity of Care Document ---
:1950 Author Organization [facility] t Address [address] [facility] [address] [place] [address] Care Team Providers Name Role Phone Denis Campos MD Primary Care Physician Yudy Olvera MD Attending Clinician [phone] Gulshan Holly MD Attending Clinician YUDY OLVERA Attending Clinician Unavailable EFRAÍN CARTER Attending Clinician Unavailable EFRAÍN CARTER Attending Clinician Unavailable Efraín Carter MD Attending Clinician Kt Holly Attending Clinician Unavailable ALLA BREWER Attending Clinician Unavailable Doctor Unassigned, [place] Attending Clinician Unavailable KRISTEL JURADO Attending Clinician Unavailable Shanae Saunders MD Attending Clinician TAMARA BOWERS Attending Clinician Unavailable Tamara Gary Attending Clinician KIRAN, WONDIFUL A Attending Clinician Unavailable YUDY OLVERA Admitting Clinician Unavailable Kt Holly Admitting Clinician Unavailable Payers Payer Name Policy Type Policy Number Effective Date Expiration Date Zander alarcon [facility] MEDICAREDIRECT [id number] PFFS 00:00:00 [facility] [id number] 2021 [facility] [place] 00:00:00 [place] [id number] 2021 00:00:00 Problems Condition Condition Condition Status [...] Disease Active Univers 3-06 ity of 00:00: [address] Reactive Reactive Disease Active Unive rs depression depression 3-06 it y of 00:00: [address] Morbid Morbid Disease Active Methodi obesity obesity 3-30 st with BMI with BMI 00:00: Hospit [facility] of of 00 l 40.0-44.9, 40.0-44.9, adult adult Diverticul Diverticul Disease Active M ethodi itis of itis of 3-29 st intestine intestine 00:00: [facility] 00 l No known No known Disease Unive rs active active ity of problems problems [facility] Allergies, Adverse Reactions, Alerts Allergy Allergy Status Severity Reaction(s) Onset Inactive Treating Comm ents Source Name Type Date Date Clinician Sumatrip Propensi Active [facility] adverse [facility]: Medical reaction 00 Center s SUMATRIP Allergy Active [facility] 00:[facility]: [facility] 00 Center No Known DA Active [facility] Allergie 05-17 [place] s 00:00: [facility] 00 are Medical Center NO KNOWN Drug Active Univers ALLERGIE Class ity of S [facility] Family History Family Member Diagnosis Comments Start Date Stop Date Source Natural daughter Anesthesia problems [facility] Natural father Arthritis [facility] Natural father Diabetes [facility] Natural father Hypertension [facility] Natural father Stroke [facility] Social History Social Habit Start Date Stop Date Quantity Comments Source Gender identity [facility] History of tobacco Passive smoker [facility] History [facility] Exposure to 2022-02-10 2022-02-[address] [facility] SARS-CoV-2 (event) 00:00:00 01:40:00 Medica l Center History [facility] 2022-02-20 2022-02-[address] [facility] Housing Unable to 00:00:00 00:00:00 Medical Center Pay History [facility] 2022-02-20 2022-02-[address] [facility] Housing Places 00:00:00 00:00:00 Medical Ce nter Lived History [facility] 2022-02-20 2022-02-[address] [facility] Housing Homeless 00:00:00 00:00:00 Medical Center Last Year History [facility] 2022-02-20 2022-02-[address] [facility] Transport Med 00:00:00 00:00:[address] Tobacco use and 2022-02-20 2022-02-[address] [facility] exposure 00:00:00 00:00:00 Medical Center History of Social 2017-12-29 2017-12-[address] function 00:00:00 00:00:00 Hospital Alcohol intake 2017-06-13 2017-06-13 Current Sikhism 00:00:00 00:00:00 non-drinker of Hospital alcohol (finding) Sex [birth year] S[employer]ism 00:00:00 00:00:00 Hospital Smoking Status Start Date Stop Date Source Never smoker [facility] Medications Ordered Filled Start Stop Current Ordering Indication Dosage Frequency Signature Comments Components Source Medication Medication Date Date Medication? Clinician (SIG) Name Name chlorthalid Yes 25mg QD Take [address] [address] [facility] 1-09 by mouth [facility] (HYGROTON) 13:37: daily. Medic al 25 MG 33 Center tablet doxazosin Yes 4mg Q.5D Take 4 mg [facility]I [...] al 25 MG 33 Center tablet doxazosin 2023-0 Yes 4mg Q.5D Take 4 mg [facility] [...] times daily as needed for Anxiety. temazepam 3-0 Yes insomnia 30mg Take 30 mg [facility]I [...] al 25 MG 33 Center tablet doxazosin 2023-0 Yes 4mg Q.5D Take [address] (CARDURA) 4 1-09 by mouth 2 Patricia k[facility] MG tablet 13:37: (two) Medical 33 times Center daily. doxepin 2022-0 Yes 100mg QD Take 100 [facility] (SINEquan) 1-09 mg by [facility] 100 MG 13:37: mouth Medical capsule 33 nightly. Center gabapentin 3-0 Yes 300mg Q.5D Take [address] (NEURONTIN) 1-09 mg by [facility] 300 MG 13:37: mouth 2 Medical capsule 33 (two) Center times daily. ALPRAZolam 3-0 Yes .5mg Take 0.[address] (XANAX) 0.5 1-09 mg by [facility] MG tablet 13:37: mouth 2 Medic al 33 (two) Center times daily as needed for Anxiety. temazepam 2022-0 Yes insomnia 30mg Take [address] (RESTORIL) 1-09 by mouth [facility] 30 mg 13:37: every Medical capsule 33 night as Center needed for Sleep. apixaban 2022-0 Yes 2.5mg Q.5D Take 2.[address] (Eliquis) 1-09 mg by [facility] 2.5 mg Tab 13:37: mouth 2 Medi louie tablet 33 (two) Center times daily. ciprofloxac 3-0 2023- No 500mg Q.5D Take [address] in HCl 02-22 tablet [facility] (CIPRO) 500 00:00: 23:59 (500 mg Me dical MG tablet 00 :00 total) by Cente r mouth 2 (two) times daily for 7 days. metroNIDAZO 3-0 3- No 500mg [id number] Take [address] [facility] (FLAGYL) 02-22 [id number] tablet [facility] 500 MG 00:00: 23:59 3D (500 mg Medical tablet 00 :00 total) by Center mouth 3 (three) times daily for 7 days. ciprofloxac 3-0 2023- No 500mg Q.5D Take [address] in HCl 02-22 tablet [facility] (CIPRO) 500 00:00: 23:59 (500 mg Me dical MG tablet 00 :00 total) by Cente r mouth 2 (two) times daily for 7 days. metroNIDAZO 3-0 2023- No 500mg [id number] Take [address] [address] [facility] (FLAGYL) 02-22 [id number] tablet [facility] 500 MG 00:00: 23:59 3D (500 mg Medical tablet 00 :00 total) by Center mouth 3 (three) times daily for 7 days. ciprofloxac 2022-0 2023- No 500mg Q.5D Take [address] in HCl 02-22 tablet [facility] (CIPRO) 500 00:00: 23:59 (500 mg Me dical MG tablet 00 :00 total) by Cente r mouth 2 (two) times daily for 7 days. metroNIDAZO 2022-0 2023- No 500mg [id number] Take [address] [facility] (FLAGYL) 02-22 [id number] tablet [facility] 500 MG 00:00: 23:59 3D (500 mg Medical tablet 00 :00 total) by Center mouth 3 (three) times daily for 7 days. ciprofloxac 2022-0 2023- No 500mg Q.5D Take [address] in HCl 02-22 tablet [facility] (CIPRO) 500 00:00: 23:59 (500 mg Me dical MG tablet 00 :00 total) by Cente r mouth 2 (two) times daily for 7 days. metroNIDAZO 2022-0 2023- No 500mg [id number] Take [address] [facility] (FLAGYL) 02-22 [id number] tablet [facility] 500 MG 00:00: 23:59 3D [...] 00 EVERYDAY Medical AT BEDTIME Branch butorphanol 2020-0 Yes 2745 INHALE ONE Univers 10 mg/mL 3-05 SPRAY IN ity of nasal spray 00:00: ONE [place] 00 NOSTRIL Medical EVERY 8 Branch HOURS NEEDED FOR HEADACHE Indication s: chronic pain, headache butorphanol 2021-0 Yes 2745 INHALE ONE Univers 10 mg/mL 3-05 SPRAY IN ity of nasal spray 00:00: ONE [place] NOSTRIL Medical EVERY 8 Branch HOURS NEEDED FOR HEADACHE Indication s: chronic pain, headache butorphanol 2021-0 Yes 2745 INHALE ONE Univers 10 mg/mL 3-05 SPRAY IN ity of nasal spray 00:00: ONE [place] NOSTRIL Medical EVERY 8 Branch HOURS NEEDED FOR HEADACHE Indication s: chronic pain, headache butorphanol 2021-0 Yes 2745 INHALE ONE Univers 10 mg/mL 3-05 SPRAY IN ity of nasal spray 00:00: ONE [place] NOSTRIL Medical EVERY 8 Branch HOURS NEEDED FOR HEADACHE Indication s: chronic pain, headache butorphanol 2021-0 Yes 2745 USE 1 Unive rs 10 mg/mL 2-05 SPRAY IN ity of nasal spray 00:00: ONE [place] NOSTRIL Medical EVERY 8 Branch HOURS NEEDED FOR HEADACHE Indication s: acute pain, chronic pain, Headache butorphanol 2021-0 Yes 2745 USE 1 Unive rs 10 mg/mL 2-05 SPRAY IN ity of nasal spray 00:00: ONE [place] NOSTRIL Medical EVERY 8 Branch HOURS NEEDED FOR HEADACHE Indication s: acute pain, chronic pain, Headache butorphanol 2021-0 Yes 2745 USE 1 Unive rs 10 mg/mL 2-05 SPRAY IN ity of nasal spray 00:00: ONE [place] NOSTRIL Medical EVERY 8 Branch HOURS NEEDED FOR HEADACHE Indication s: acute pain, chronic pain, Headache butorphanol 2021-0 Yes 2745 USE 1 Unive rs 10 mg/mL 2-05 SPRAY IN ity of nasal spray 00:00: ONE [place] NOSTRIL Medical EVERY 8 Branch HOURS NEEDED FOR HEADACHE Indication s: acute pain, chronic pain, Headache butorphanol 2021-0 Yes 2745 USE 1 Unive rs 10 mg/mL 2-05 SPRAY IN ity of nasal spray 00:00: ONE [place] NOSTRIL Medical EVERY 8 Branch HOURS NEEDED FOR HEADACHE Indication s: acute pain, chronic pain, Headache butorphanol 2021-0 Yes 2745 USE 1 Unive rs 10 mg/mL 2-05 SPRAY IN ity of nasal spray 00:00: ONE [place] [address] NOSTRIL Medical EVERY 8 Branch HOURS NEEDED FOR HEADACHE Indication s: acute pain, chronic pain, Headache butorphanol 2021-0 Yes 2745 USE 1 Unive rs 10 mg/mL 2-05 SPRAY IN ity of nasal spray 00:00: ONE [place] NOSTRIL Medical EVERY 8 Branch HOURS NEEDED FOR HEADACHE Indication s: acute pain, chronic pain, Headache butorphanol 2021-0 Yes 2745 USE 1 Unive rs 10 mg/mL 2-05 SPRAY IN ity of nasal spray 00:00: ONE [place] NOSTRIL Medical EVERY 8 Branch HOURS NEEDED FOR HEADACHE Indication s: acute pain, chronic pain, Headache butorphanol 2021-0 Yes 2745 USE 1 Unive rs 10 mg/mL 2-05 SPRAY IN ity of nasal spray 00:00: ONE [place] NOSTRIL Medical EVERY 8 Branch HOURS NEEDED FOR HEADACHE Indication s: acute pain, chronic pain, Headache butorphanol 2021-0 Yes 2745 USE 1 Unive rs 10 mg/mL 2-05 SPRAY IN ity of nasal spray 00:00: ONE [place] NOSTRIL Medical EVERY 8 Branch HOURS NEEDED FOR HEADACHE Indication s: acute pain, chronic pain, Headache butorphanol 2021-0 Yes 2745 USE 1 Unive rs 10 mg/mL 2-05 SPRAY IN ity of nasal spray 00:00: ONE [place] [address] NOSTRIL Medical EVERY 8 Branch HOURS NEEDED FOR HEADACHE Indication s: acute pain, chronic pain, Headache butorphanol 2021-0 2021- No 2745 USE 1 Univ ers 10 mg/mL 2-05 03-05 SPRAY IN ity of nasal spray 00:00: 00:00 [facility] 00 :00 NOSTRIL Medical EVERY 8 Branch HOURS NEEDED FOR HEADACHE Indication s: acute pain, chronic pain, Headache butorphanol 2021-0 2021- No 2745 USE 1 Univ ers 10 mg/mL 2-05 03-05 SPRAY IN ity of nasal spray 00:00: 00:00 [facility] 00 :00 NOSTRIL Medical EVERY 8 Branch HOURS NEEDED FOR HEADACHE Indication s: acute pain, chronic pain, Headache butorphanol 2021-0 Yes 2745 USE 1 Unive rs 10 mg/mL 1-05 SPRAY IN ity of nasal spray 00:00: ONE [place] [address] NOSTRIL Medical EVERY 8 Branch HOURS NEEDED FOR HEADACHE Indication s: acute pain, chronic pain, Headache butorphanol 0 Yes 2745 USE 1 Unive rs 10 mg/mL 1-05 SPRAY IN ity of nasal spray 00:00: ONE [place] NOSTRIL Medical EVERY 8 Branch HOURS NEEDED FOR HEADACHE Indication s: acute pain, chronic pain, Headache butorphanol 2020-0 Yes 2745 USE 1 Unive rs 10 mg/mL 1-05 SPRAY IN ity of nasal spray 00:00: [place] NOSTRIL Medical EVERY 8 Branch HOURS NEEDED FOR HEADACHE Indication s: acute pain, chronic pain, Headache butorphanol 2020-0 202- No 2745 USE 1 Univ ers 10 mg/mL 1-05 02-05 SPRAY IN ity of nasal spray 00:00: 00:00 [facility] 00 :00 NOSTRIL Medical EVERY 8 Branch HOURS NEEDED FOR HEADACHE Indication s: acute pain, chronic pain, Headache butorphanol 2019-02 Yes 2745 USE 1 Unive rs 10 mg/mL 2-07 SPRAY IN ity of nasal spray 00:00: [place] NOSTRIL Medical EVERY 8 Branch HOURS NEEDED FOR HEADACHE Indication s: acute pain, chronic pain, Headache butorphanol 2019-02 Yes 2745 USE 1 Unive rs 10 mg/mL 2-07 SPRAY IN ity of nasal spray 00:00: [place] NOSTRIL Medical EVERY 8 Branch HOURS NEEDED FOR HEADACHE Indication s: acute pain, chronic pain, Headache butorphanol 2019-2020- No 2745 USE 1 Univ ers 10 mg/mL 2-07 01-05 SPRAY IN ity of nasal spray 00:00: 00:00 [facility] 00 :00 NOSTRIL Medical EVERY 8 Branch HOURS NEEDED FOR HEADACHE Indication s: acute pain, chronic pain, Headache AMITRIPTYLI 2020- Yes TAKE 1 Univ ers NE 25 mg 1-10 TABLET BY ity of tablet 00:00: MOUTH [place] EVERYDAY Medical AT BEDTIME Branch AMITRIPTYLI 2020- Yes TAKE 1 Univ ers NE 25 mg 1-10 TABLET BY ity of tablet 00:00: MOUTH [place] EVERYDAY Medical AT BEDTIME Branch AMITRIPTYLI 2020- Yes TAKE 1 Univ ers NE 25 mg 1-10 TABLET BY ity of tablet 00:00: MOUTH [place] EVERYDAY Medical AT BEDTIME Branch AMITRIPTYLI 2020- [...] 1-10 TABLET BY ity of tablet 00:00: [facility] EVERYDAY Medical AT BEDTIME Branch AMITRIPTYLI 2019- [...] TABLET BY ity of tablet 00:00: MOUTH [place] EVERYDAY Medical AT BEDTIME Branch AMITRIPTYLI 2019-02 Yes TAKE 1 Univ ers NE 25 mg 1-10 TABLET BY ity of tablet 00:00: MOUTH [place] 00 EVERYDAY Medical AT BEDTIME Branch AMITRIPTYLI 2019-02 Yes TAKE 1 Univ ers NE 25 mg 1-10 TABLET BY ity of tablet 00:00: MOUTH [place] 00 EVERYDAY Medical AT BEDTIME Branch AMITRIPTYLI 2019-02- No TAKE 1 Uni vers NE 25 mg 1-10 05-05 TABLET BY ity o f tablet 00:00: 00:00 [facility] 00 :00 EVERYDAY Medical AT BEDTIME [...] ity of nasal spray 00:00: 00:00 [facility] 00 :00 NOSTRIL Medical EVERY 8 Branch HOURS NEEDED FOR HEADACHE Indication s: chronic pain, Headache butorphanol 2019-02 Yes 2745 USE 1 Unive rs 10 mg/mL 0-09 SPRAY IN ity of nasal spray 00:00: [place] NOSTRIL Medical EVERY 8 Branch HOURS NEEDED FOR HEADACHE Indication s: chronic pain, Headache butorphanol 2020-1 Yes 2745 USE 1 Unive rs 10 mg/mL 0-09 SPRAY IN ity of nasal spray 00:00: ONE [place] [address] NOSTRIL Medical EVERY 8 Branch HOURS NEEDED FOR HEADACHE Indication s: chronic pain, Headache butorphanol 2020-1 2020- No 2745 USE 1 Univ ers 10 mg/mL 0-09 11-09 SPRAY IN ity of nasal spray 00:00: 00:00 ONE [place] 00 :00 NOSTRIL Medical EVERY 8 Branch HOURS NEEDED FOR HEADACHE Indication s: chronic pain, Headache butorphanol 2020-0 Yes 2745 USE 1 Unive rs 10 mg/mL 9-11 SPRAY IN ity of nasal spray 00:00: ONE [place] NOSTRIL Medical EVERY 8 Branch HOURS NEEDED FOR HEADACHE Indication s: chronic pain, Headache butorphanol 2020-0 Yes 2745 USE 1 Unive rs 10 mg/mL 9-11 SPRAY IN ity of nasal spray 00:00: ONE [place] [address] NOSTRIL Medical EVERY 8 Branch HOURS NEEDED FOR HEADACHE Indication s: chronic pain, Headache butorphanol 2020-0 2020- No 2745 USE 1 Univ ers 10 mg/mL 9-11 10-09 SPRAY IN ity of nasal spray 00:00: 00:00 [facility] 00 :00 NOSTRIL Medical EVERY 8 Branch HOURS NEEDED FOR HEADACHE Indication s: chronic pain, Headache butorphanol 2020-0 Yes USE 1 Unive rs 10 mg/mL 8-14 SPRAY IN ity of nasal spray 00:00: ONE [place] [address] NOSTRIL Medical EVERY 8 Branch HOURS NEEDED FOR HEADACHE Indication s: Headache butorphanol 2020-0 Yes 2745 USE 1 Unive rs 10 mg/mL 8-14 SPRAY IN ity of nasal spray 00:00: ONE [place] [address] NOSTRIL Medical EVERY 8 Branch HOURS NEEDED FOR HEADACHE Indication s: chronic pain, Headache butorphanol 2020-0 Yes 2745 USE 1 Unive rs 10 mg/mL 8-14 SPRAY IN ity of nasal spray 00:00: ONE [place] [address] NOSTRIL Medical EVERY 8 Branch HOURS NEEDED FOR HEADACHE Indication s: chronic pain, Headache butorphanol 2020-0 2020- No 2745 USE 1 Univ ers 10 mg/mL 8-14 09-11 SPRAY IN ity of nasal spray 00:00: 00:00 ONE [place] 00 :00 NOSTRIL Medical EVERY 8 Branch HOURS NEEDED FOR HEADACHE Indication s: chronic pain, Headache butorphanol 2020-0 2020- No USE 1 Univ ers 10 mg/mL 8-14 08-14 SPRAY IN ity of nasal spray 00:00: 00:00 ONE [place] 00 :00 NOSTRIL Medical EVERY 8 Branch HOURS NEEDED FOR HEADACHE Indication s: Headache butorphanol 2020-0 Yes USE 1 Unive rs 10 mg/mL 7-14 SPRAY IN ity of nasal spray 00:00: ONE [place] 00 NOSTRIL Medical EVERY 8 Branch HOURS NEEDED FOR HEADACHE Indication s: Headache butorphanol 2020-0 2020- No USE 1 Univ ers 10 mg/mL 7-14 08-14 SPRAY IN ity of nasal spray 00:00: 00:00 ONE [place] 00 :00 NOSTRIL Medical EVERY 8 Branch HOURS NEEDED FOR HEADACHE Indication s: Headache butorphanol 2020-0 2020- No USE 1 Univ ers 10 mg/mL 6-09 07-14 SPRAY IN ity of nasal spray 00:00: 00:00 ONE [place] 00 :00 NOSTRIL Medical EVERY 8 Branch HOURS NEEDED FOR HEADACHE butorphanol 2020-0 Yes USE 1 Unive rs 10 mg/mL 6-04 SPRAY IN ity of nasal spray 00:00: ONE [place] [address] NOSTRIL Medical EVERY 8 Branch HOURS NEEDED FOR HEADACHE butorphanol 2020-0 Yes USE 1 Unive rs 10 mg/mL 6-04 SPRAY IN ity of nasal spray 00:00: ONE [place] [address] NOSTRIL Medical EVERY 8 Branch HOURS NEEDED FOR HEADACHE butorphanol 2020-0 Yes USE 1 Unive rs 10 mg/mL 6-04 SPRAY IN ity of nasal spray 00:00: ONE [place] [address] NOSTRIL Medical EVERY 8 Branch HOURS NEEDED FOR HEADACHE butorphanol 2020-0 Yes USE 1 Unive rs 10 mg/mL 6-04 SPRAY IN ity of nasal spray 00:00: ONE [place] [address] NOSTRIL Medical EVERY 8 Branch HOURS NEEDED FOR HEADACHE butorphanol 2020-0 Yes USE 1 Unive rs 10 mg/mL 6-04 SPRAY IN ity of nasal spray 00:00: ONE [place] [address] NOSTRIL Medical EVERY 8 Branch HOURS NEEDED FOR HEADACHE butorphanol 2020-0 Yes USE 1 Unive rs 10 mg/mL 6-04 SPRAY IN ity of nasal spray 00:00: ONE [place] [address] NOSTRIL Medical EVERY 8 Branch HOURS NEEDED FOR HEADACHE butorphanol 2020-0 Yes USE 1 Unive rs 10 mg/mL 6-04 SPRAY IN ity of nasal spray 00:00: ONE [place] 00 NOSTRIL Medical EVERY 8 Branch HOURS NEEDED FOR HEADACHE SERTRALINE 2020-0 Yes [id number] TAKE 1 U nivers 25 mg 5-21 TABLET BY ity of tablet 00:00: MOUTH [place] EVERY DAY Medical Branch SERTRALINE 2020-0 Yes [id number] TAKE 1 U nivers 25 mg 5-21 TABLET BY ity of tablet 00:00: [facility] EVERY DAY Medical Branch SERTRALINE 2020-0 Yes [id number] TAKE 1 U nivers 25 mg 5-21 TABLET BY ity of tablet 00:00: [facility] EVERY DAY Medical Branch SERTRALINE 2020-0 Yes [id number] TAKE 1 U nivers 25 mg 5-21 TABLET BY ity of tablet 00:00: [facility] EVERY DAY Medical Branch SERTRALINE 2020-0 Yes [id number] TAKE 1 U nivers 25 mg 5-21 TABLET BY ity of tablet 00:00: [facility] EVERY DAY Medical Branch SERTRALINE 2020-0 Yes [id number] TAKE 1 U nivers 25 mg 5-21 TABLET BY ity of tablet 00:00: [facility] EVERY DAY Medical Branch SERTRALINE 2020-0 Yes [id number] TAKE 1 U nivers 25 mg 5-21 TABLET BY ity of tablet 00:00: [facility] EVERY DAY Medical Branch SERTRALINE 2020-0 Yes [id number] TAKE 1 U nivers 25 mg 5-21 TABLET BY ity of tablet 00:00: [facility] EVERY DAY Medical Branch SERTRALINE 2020-0 Yes [id number] TAKE 1 U nivers 25 mg 5-21 TABLET BY ity of tablet 00:00: [facility] EVERY DAY Medical Branch SERTRALINE 2020-0 Yes [id number] TAKE 1 U nivers 25 mg 5-21 TABLET BY ity of tablet 00:00: [facility] EVERY DAY Medical Branch SERTRALINE 2020-0 Yes [id number] TAKE 1 U nivers 25 mg 5-21 TABLET BY ity of tablet 00:00: [facility] EVERY DAY Medical Branch SERTRALINE 2020-0 Yes [id number] TAKE 1 U nivers 25 mg 5-21 TABLET BY ity of tablet 00:00: [facility] EVERY DAY Medical Branch SERTRALINE 2020-0 Yes [id number] TAKE 1 U nivers 25 mg 5-21 TABLET BY ity of tablet 00:00: [facility] EVERY DAY Medical Branch SERTRALINE 2020-0 Yes [id number] TAKE 1 U nivers 25 mg 5-21 TABLET BY ity of tablet 00:00: [facility] EVERY DAY Medical Branch SERTRALINE 2020-0 Yes [id number] TAKE 1 U nivers 25 mg 5-21 TABLET BY ity of tablet 00:00: [facility] EVERY DAY Medical Branch SERTRALINE 2020-0 Yes [id number] TAKE 1 U nivers 25 mg 5-21 TABLET BY ity of tablet 00:00: [facility] EVERY DAY Medical Branch SERTRALINE 2020-0 Yes [id number] TAKE 1 U nivers 25 mg 5-21 TABLET BY ity of tablet 00:00: [facility] EVERY DAY Medical Branch SERTRALINE 2020-0 Yes [id number] TAKE 1 U nivers 25 mg 5-21 TABLET BY ity of tablet 00:00: [facility] EVERY DAY Medical Branch SERTRALINE 2020-0 Yes [id number] TAKE 1 U nivers 25 mg 5-21 TABLET BY ity of tablet 00:00: [facility] EVERY DAY Medical Branch SERTRALINE 2020-0 Yes [id number] TAKE 1 U nivers 25 mg 5-21 TABLET BY ity of tablet 00:00: [facility] EVERY DAY Medical Branch SERTRALINE 2020-0 Yes [id number] TAKE 1 U nivers 25 mg 5-21 TABLET BY ity of tablet 00:00: [facility] EVERY DAY Medical Branch SERTRALINE 2020-0 Yes [id number] TAKE 1 U nivers 25 mg 5-21 TABLET BY ity of tablet 00:00: [facility] EVERY DAY Medical Branch SERTRALINE 2020-0 Yes [id number] TAKE 1 U nivers 25 mg 5-21 TABLET BY ity of tablet 00:00: [facility] EVERY DAY Medical Branch SERTRALINE 2020-0 Yes [id number] TAKE 1 U nivers 25 mg 5-21 TABLET BY ity of tablet 00:00: [facility] EVERY DAY Medical Branch SERTRALINE 2020-0 Yes [id number] TAKE 1 U nivers 25 mg 5-21 TABLET BY ity of tablet 00:00: [facility] EVERY DAY Medical Branch SERTRALINE 2020-0 Yes [id number] TAKE 1 U nivers 25 mg 5-21 TABLET BY ity of tablet 00:00: MOUTH [place] 00 EVERY DAY Medical Branch SERTRALINE 2020-0 Yes [id number] TAKE 1 U nivers 25 mg 5-21 TABLET BY ity of tablet 00:00: MOUTH [place] 00 EVERY DAY Medical Branch SERTRALINE 2020-0 Yes [id number] TAKE 1 U nivers 25 mg 5-21 TABLET BY ity of tablet 00:00: [facility] EVERY DAY Medical Branch SERTRALINE 2020-0 Yes [id number] TAKE 1 U nivers 25 mg 5-21 TABLET BY ity of tablet 00:00: MOUTH [place] 00 EVERY DAY Medical Branch SERTRALINE 2020-0 Yes [id number] TAKE 1 U nivers 25 mg 5-21 TABLET BY ity of tablet 00:00: [facility] EVERY DAY Medical Branch SERTRALINE 2020-0 Yes [id number] TAKE 1 U nivers 25 mg 5-21 TABLET BY ity of tablet 00:00: [facility] EVERY DAY Medical Branch SERTRALINE 2020-0 Yes [id number] TAKE 1 U nivers 25 mg 5-21 TABLET BY ity of tablet 00:00: [facility] EVERY DAY Medical Branch SERTRALINE 2020-0 Yes [id number] TAKE 1 U nivers 25 mg 5-21 TABLET BY ity of tablet 00:00: [facility] EVERY DAY Medical Branch SERTRALINE 2020-0 Yes [id number] TAKE 1 U nivers 25 mg 5-21 TABLET BY ity of tablet 00:00: [facility] EVERY DAY Medical Branch SERTRALINE 2020-0 Yes [id number] TAKE 1 U nivers 25 mg 5-21 TABLET BY ity of tablet 00:00: [facility] 00 EVERY DAY Medical Branch SERTRALINE 2020-0 Yes [id number] TAKE 1 U nivers 25 mg 5-21 TABLET BY ity of tablet 00:00: [facility] EVERY DAY Medical Branch SERTRALINE 2020-0 Yes [id number] TAKE 1 U nivers 25 mg 5-21 TABLET BY ity of tablet 00:00: [facility] 00 EVERY DAY Medical Branch SERTRALINE 2020-0 Yes [id number] TAKE 1 U nivers 25 mg 5-21 TABLET BY ity of tablet 00:00: [facility] EVERY DAY Medical Branch SERTRALINE 2020-0 Yes [id number] TAKE 1 U nivers 25 mg 5-21 TABLET BY ity of tablet 00:00: MOUTH [place] EVERY DAY Medical Branch SERTRALINE 2020-0 Yes [id number] TAKE 1 U nivers 25 mg 5-21 TABLET BY ity of tablet 00:00: MOUTH [place] EVERY DAY Medical Branch SERTRALINE 2020-0 Yes [id number] TAKE 1 U nivers 25 mg 5-21 TABLET BY ity of tablet 00:00: MOUTH [place] EVERY DAY Medical Branch SERTRALINE 2020-0 Yes [id number] TAKE 1 U nivers 25 mg 5-21 TABLET BY ity of tablet 00:00: MOUTH [place] EVERY DAY Medical Branch SERTRALINE 2020-0 Yes [id number] TAKE 1 [facility] 25 mg 5-21 TABLET BY ity of tablet 00:00: MOUTH [place] EVERY DAY Medical Branch butorphanol 2020-0 Yes USE 1 [facility] 10 mg/mL 5-05 SPRAY IN ity of nasal spray 00:00: ONE [place] NOSTRIL Medical EVERY 8 Branch HOURS NEEDED FOR HEADACHE amitriptyli 2020-0 Yes 25mg Take 1 [facility] ne 25 mg 5-05 tablet by ity of tablet 00:00: mouth at [place] [address] bedtime. Medical Branch butorphanol 2020-0 Yes USE 1 [facility] 10 mg/mL 5-05 SPRAY IN ity of nasal spray 00:00: ONE [place] NOSTRIL Medical EVERY 8 Branch HOURS NEEDED FOR HEADACHE amitriptyli 2020-0 Yes 25mg Take 1 [facility] ne 25 mg 5-05 tablet by ity of tablet 00:00: mouth at [place] [address] bedtime. Medical Branch butorphanol 2020-0 Yes USE 1 [facility] 10 mg/mL 5-05 SPRAY IN ity of nasal spray 00:00: ONE [place] NOSTRIL Medical EVERY 8 Branch HOURS NEEDED FOR HEADACHE amitriptyli 2020-0 Yes 25mg Take 1 [facility] ne 25 mg 5-05 tablet by ity of tablet 00:00: mouth at [place] [address] bedtime. Medical Branch butorphanol 2020-0 Yes USE 1 [facility] 10 mg/mL 5-05 SPRAY IN ity of nasal spray 00:00: ONE [place] NOSTRIL Medical EVERY 8 Branch HOURS NEEDED FOR HEADACHE amitriptyli 2020-0 Yes 25mg Take 1 [facility] ne 25 mg 5-05 tablet by it[facility] of tablet 00:00: mouth at [place] [address] bedtime. Medical Branch butorphanol 2020-0 Yes USE 1 [facility] 10 mg/mL 5-05 SPRAY IN ity of nasal spray 00:00: ONE [place] NOSTRIL Medical EVERY 8 Branch HOURS NEEDED FOR HEADACHE amitriptyli 2020-0 Yes 25mg Take 1 [facility] ne 25 mg 5-05 tablet by ity of tablet 00:00: mouth at [place] [address] bedtime. Medical Branch amitriptyli 2020-0 Yes 25mg Take 1 [facility] ne 25 mg 5-05 tablet by it[facility] of tablet 00:00: mouth at [place] bedtime. Medical Branch amitriptyli 2020-0 Yes 25mg Take 1 [facility] 25 mg 5-05 tablet by [facility] of tablet 00:00: mouth at [place] [address] bedtime. Medical Branch amitriptyli 2020-0 Yes 25mg Take 1 [facility] 25 mg 5-05 tablet by ity of tablet 00:00: mouth at [place] [address] bedtime. Medical Branch amitriptyli 2020-0 Yes 25mg Take 1 [facility] 25 mg 5-05 tablet by [facility] of tablet 00:00: mouth at [place] [address] bedtime. Medical Branch amitriptyli 2020-0 Yes 25mg Take 1 [facility] 25 mg 5-05 tablet by [facility] of tablet 00:00: mouth at [place] [address] bedtime. Medical Branch amitriptyli 2020-0 Yes 25mg Take 1 [facility] 25 mg 5-05 tablet by [facility] of tablet 00:00: mouth at [place] [address] bedtime. Medical Branch amitriptyli 2020-0 Yes 25mg Take 1 [facility] 25 mg 5-05 tablet by [facility] of tablet 00:00: mouth at [place] [address] bedtime. Medical Branch amitriptyli 2020-0 Yes 25mg Take 1 [facility] 25 mg 5-05 tablet by [facility] of tablet 00:00: mouth at [place] [address] bedtime. Medical Branch amitriptyli 2020-0 Yes 25mg Take 1 [facility] 25 mg 5-05 tablet by [facility] of tablet 00:00: mouth at [place] [address] bedtime. Medical Branch amitriptyli 2020-0 Yes 25mg Take 1 [facility] 25 mg 5-05 tablet by [facility] of tablet 00:00: mouth at [place] [address] bedtime. Medical Branch amitriptyli 2020-0 Yes 25mg Take 1 [facility] 25 mg 5-05 tablet by [facility] of tablet 00:00: mouth at [place] [address] bedtime. Medical Branch amitriptyli 2020-0 Yes 25mg Take 1 [facility] 25 mg 5-05 tablet by [facility] of tablet 00:00: mouth at [place] [address] bedtime. Medical Branch amitriptyli 2020-0 Yes 25mg Take 1 [facility] 25 mg 5-05 tablet by [facility] of tablet 00:00: mouth at [place] 00 bedtime. Medical Branch amitriptyli 2020-0 Yes 25mg Take 1 [facility] 25 mg 5-05 tablet by [facility] of tablet 00:00: mouth at [place] [address] bedtime. Medical Branch amitriptyli 2020-0 Yes 25mg Take 1 [facility] 25 mg 5-05 tablet by ity of tablet 00:00: mouth at [place] [address] bedtime. Medical Branch amitriptyli 2020-0 Yes 25mg Take 1 [facility] 25 mg 5-05 tablet by [facility] of tablet 00:00: mouth at [place] [address] bedtime. Medical Branch amitriptyli 2020-0 Yes 25mg Take 1 [facility] 25 mg 5-05 tablet by it[facility] of tablet 00:00: mouth at [place] [address] bedtime. Medical Branch amitriptyli 2020-0 2020- No 25mg Take 1 [facility] ne 25 mg 5-05 11-10 tablet by ity o f tablet 00:00: 00:00 mouth at [place] 00 :00 bedtime. Medical Branch butorphanol 2020-0 2020- No USE 1 [facility] ers 10 mg/mL 5-05 06-04 SPRAY IN ity of nasal spray 00:00: 00:00 ONE [place] 00 :00 NOSTRIL Medical EVERY 8 Branch HOURS NEEDED FOR HEADACHE butorphanol 2020-0 2020- No USE 1 [facility] ers 10 mg/mL 5-05 06-04 SPRAY IN ity of nasal spray 00:00: 00:00 ONE [place] 00 :00 NOSTRIL Medical EVERY 8 Branch HOURS NEEDED FOR HEADACHE AMITRIPTYLI 2020-0 Yes TAKE 1 [facility] NE 25 mg 4-14 TABLET BY ity of tablet 00:00: MOUTH [place] [address] EVERYDAY Medical AT BEDTIME Branch AMITRIPTYLI 2020-0 [...] ity of nasal spray 00:00: 00:00 ONE [place] 00 :00 NOSTRIL Medical EVERY 8 Branch [...] Medical AT BEDTIME Branch sulfamethox 2020-0 Yes [id number] 1{tbl} Take 1 [facility] azole-trime 3-25 tablet by ity of thoprim 00:00: mouth 2 [place] 800-160 mg 00 (two) Medical per tablet times Branch daily. sulfamethox 2020-0 Yes [id number] 1{tbl} Take 1 [facility] azole-trime 3-25 tablet by ity of thoprim 00:00: mouth 2 [place] 800-160 mg 00 (two) Medical per tablet times Branch daily. sulfamethox 2020-0 Yes [id number] 1{tbl} Take 1 [facility] azole-trime 3-25 tablet by ity of thoprim 00:00: mouth 2 [place] 800-160 mg 00 (two) Medical per tablet times Branch daily. sulfamethox 2020-0 Yes [id number] 1{tbl} Take 1 [facility] azole-trime 3-25 tablet by ity of thoprim 00:00: mouth 2 [place] 800-160 mg 00 (two) Medical per tablet times Branch daily. sulfamethox 2020-0 Yes [id number] 1{tbl} Take 1 [facility] azole-trime 3-25 tablet by ity of thoprim 00:00: mouth 2 [place] 800-160 mg 00 (two) Medical per tablet times Branch daily. sulfamethox 2020-0 Yes [id number] 1{tbl} Take 1 [facility] azole-trime 3-25 tablet by ity of thoprim 00:00: mouth 2 [place] 800-160 mg 00 (two) Medical per tablet times Branch daily. sulfamethox 2020-0 Yes [id number] 1{tbl} Take 1 [facility] azole-trime 3-25 tablet by ity of thoprim 00:00: mouth 2 [place] 800-160 mg 00 (two) Medical per tablet times Branch daily. sulfamethox 2020-0 Yes [id number] 1{tbl} Take 1 [facility] azole-trime 3-25 tablet by ity of thoprim 00:00: mouth 2 [place] 800-160 mg 00 (two) Medical per tablet times Branch daily. sulfamethox 2020-0 Yes [id number] 1{tbl} Take 1 [facility] azole-trime 3-25 tablet by ity of thoprim 00:00: mouth 2 [place] 800-160 mg 00 (two) Medical per tablet times Branch daily. sulfamethox 2020-0 Yes [id number] 1{tbl} Take 1 [facility] azole-trime 3-25 tablet by ity of thoprim 00:00: mouth 2 [place] 800-160 mg 00 (two) Medical per tablet times Branch daily. sulfamethox 2020-0 Yes [id number] 1{tbl} Take 1 [facility] azole-trime 3-25 tablet by ity of thoprim 00:00: mouth 2 [place] 800-160 mg 00 (two) Medical per tablet times Branch daily. sulfamethox 2020-0 Yes [id number] 1{tbl} Take 1 [facility] azole-trime 3-25 tablet by ity of thoprim 00:00: mouth 2 [place] 800-160 mg 00 (two) Medical per tablet times Branch daily. sulfamethox 2020-0 Yes [id number] 1{tbl} Take 1 [facility] azole-trime 3-25 tablet by ity of thoprim 00:00: mouth 2 [place] 800-160 mg 00 (two) Medical per tablet times Branch daily. sulfamethox 2020-0 Yes [id number] 1{tbl} Take 1 [facility] azole-trime 3-25 tablet by ity of thoprim 00:00: mouth 2 [place] 800-160 mg 00 (two) Medical per tablet times Branch daily. sulfamethox 2020-0 Yes [id number] 1{tbl} Take 1 [facility] azole-trime 3-25 tablet by ity of thoprim 00:00: mouth 2 [place] 800-160 mg 00 (two) Medical per tablet times Branch daily. sulfamethox 2020-0 Yes [id number] 1{tbl} Take 1 [facility] azole-trime 3-25 tablet by ity of thoprim 00:00: mouth 2 [place] 800-160 mg 00 (two) Medical per tablet times Branch daily. sulfamethox 2020-0 Yes [id number] 1{tbl} Take 1 [facility] azole-trime 3-25 tablet by ity of thoprim 00:00: mouth 2 [place] 800-160 mg 00 (two) Medical per tablet times Branch daily. sulfamethox 2020-0 Yes [id number] 1{tbl} Take 1 [facility] azole-trime 3-25 tablet by ity of thoprim 00:00: mouth 2 [place] 800-160 mg 00 (two) Medical per tablet times Branch daily. sulfamethox 2020-0 Yes [id number] 1{tbl} Take 1 [facility] azole-trime 3-25 tablet by ity of thoprim 00:00: mouth 2 [place] 800-160 mg 00 (two) Medical per tablet times Branch daily. sulfamethox 2020-0 Yes [id number] 1{tbl} Take 1 [facility] azole-trime 3-25 tablet by ity of thoprim 00:00: mouth 2 [place] 800-160 mg 00 (two) Medical per tablet times Branch daily. sulfamethox 2020-0 Yes [id number] 1{tbl} Take 1 [facility] azole-trime 3-25 tablet by ity of thoprim 00:00: mouth 2 [place] 800-160 mg 00 (two) Medical per tablet times Branch daily. sulfamethox 2020-0 Yes [id number] 1{tbl} Take 1 [facility] azole-trime 3-25 tablet by ity of thoprim 00:00: mouth 2 [place] 800-160 mg 00 (two) Medical per tablet times Branch daily. sulfamethox 2020-0 Yes [id number] 1{tbl} Take 1 [facility] azole-trime 3-25 tablet by ity of thoprim 00:00: mouth 2 [place] 800-160 mg 00 (two) Medical per tablet times Branch daily. sulfamethox 2020-0 Yes [id number] 1{tbl} Take 1 [facility] azole-trime 3-25 tablet by ity of thoprim 00:00: mouth 2 [place] 800-160 mg 00 (two) Medical per tablet times Branch daily. sulfamethox 2020-0 Yes [id number] 1{tbl} Take 1 [facility] azole-trime 3-25 tablet by ity of thoprim 00:00: mouth 2 [place] 800-160 mg 00 (two) Medical per tablet times Branch daily. sulfamethox 2020-0 Yes [id number] 1{tbl} Take 1 [facility] azole-trime 3-25 tablet by ity of thoprim 00:00: mouth 2 [place] 800-160 mg 00 (two) Medical per tablet times Branch daily. sulfamethox 2020-0 Yes [id number] 1{tbl} Take 1 [facility] azole-trime 3-25 tablet by ity of thoprim 00:00: mouth 2 [place] 800-160 mg 00 (two) Medical per tablet times Branch daily. sulfamethox 2020-0 Yes [id number] 1{tbl} Take 1 [facility] azole-trime 3-25 tablet by ity of thoprim 00:00: mouth 2 [place] 800-160 mg 00 (two) Medical per tablet times Branch daily. sulfamethox 2020-0 Yes [id number] 1{tbl} Take 1 [facility] azole-trime 3-25 tablet by ity of thoprim 00:00: mouth 2 [place] 800-160 mg 00 (two) Medical per tablet times Branch daily. sulfamethox 2020-0 Yes [id number] 1{tbl} Take 1 [facility] azole-trime 3-25 tablet by ity of thoprim 00:00: mouth 2 [place] 800-160 mg 00 (two) Medical per tablet times Branch daily. sulfamethox 2020-0 Yes [id number] 1{tbl} Take 1 [facility] azole-trime 3-25 tablet by ity of thoprim 00:00: mouth 2 [place] 800-160 mg 00 (two) Medical per tablet times Branch daily. sulfamethox 2020-0 Yes [id number] 1{tbl} Take 1 [facility] azole-trime 3-25 tablet by ity of thoprim 00:00: mouth 2 [place] 800-160 mg 00 (two) Medical per tablet times Branch daily. sulfamethox 2020-0 Yes [id number] 1{tbl} Take 1 [facility] azole-trime 3-25 tablet by ity of thoprim 00:00: mouth 2 [place] 800-160 mg 00 (two) Medical per tablet times Branch daily. sulfamethox 2020-0 Yes [id number] 1{tbl} Take 1 [facility] azole-trime 3-25 tablet by ity of thoprim 00:00: mouth 2 [place] 800-160 mg 00 (two) Medical per tablet times Branch daily. sulfamethox 2020-0 Yes [id number] 1{tbl} Take 1 [facility] azole-trime 3-25 tablet by ity of thoprim 00:00: mouth 2 [place] 800-160 mg 00 (two) Medical per tablet times Branch daily. sulfamethox 2020-0 Yes [id number] 1{tbl} Take 1 [facility] azole-trime 3-25 tablet by ity of thoprim 00:00: mouth 2 [place] 800-160 mg 00 (two) Medical per tablet times Branch daily. sulfamethox 2020-0 Yes [id number] 1{tbl} Take 1 [facility] azole-trime 3-25 tablet by ity of thoprim 00:00: mouth 2 [place] 800-160 mg 00 (two) Medical per tablet times Branch daily. sulfamethox 2020-0 Yes [id number] 1{tbl} Take 1 [facility] azole-trime 3-25 tablet by ity of thoprim 00:00: mouth 2 [place] 800-160 mg 00 (two) Medical per tablet times Branch daily. sulfamethox 2020-0 Yes [id number] 1{tbl} Take 1 [facility] azole-trime 3-25 tablet by ity of thoprim 00:00: mouth 2 [place] 800-160 mg 00 (two) Medical per tablet times Branch daily. sulfamethox 2020-0 Yes [id number] 1{tbl} Take 1 [facility] azole-trime 3-25 tablet by ity of thoprim 00:00: mouth 2 [place] 800-160 mg 00 (two) Medical per tablet times Branch daily. sulfamethox 2020-0 Yes [id number] 1{tbl} Take 1 [facility] azole-trime 3-25 tablet by ity of thoprim 00:00: mouth 2 [place] 800-160 mg 00 (two) Medical per tablet times Branch daily. sulfamethox 2020-0 Yes [id number] 1{tbl} Take 1 [facility] azole-trime 3-25 tablet by ity of thoprim 00:00: mouth 2 [place] 800-160 mg 00 (two) Medical per tablet times Branch daily. sulfamethox 2020-0 Yes [id number] 1{tbl} Take 1 [facility] azole-trime 3-25 tablet by ity of thoprim 00:00: mouth 2 [place] 800-160 mg 00 (two) Medical per tablet times Branch daily. sulfamethox 2020-0 Yes [id number] 1{tbl} Take 1 [facility] azole-trime 3-25 tablet by ity of thoprim 00:00: mouth 2 [place] 800-160 mg 00 (two) Medical per tablet times Branch daily. sulfamethox 2020-0 Yes [id number] 1{tbl} Take 1 [facility] azole-trime 3-25 tablet by ity of thoprim 00:00: mouth 2 [place] 800-160 mg 00 (two) Medical per tablet times Branch daily. sulfamethox 2020-0 Yes [id number] 1{tbl} Take 1 [facility] azole-trime 3-25 tablet by ity of thoprim 00:00: mouth 2 [place] 800-160 mg 00 (two) Medical per tablet times Branch daily. sulfamethox 2020-0 Yes [id number] 1{tbl} Take 1 [facility] azole-trime 3-25 tablet by ity of thoprim 00:00: mouth 2 [place] 800-160 mg 00 (two) Medical per tablet times Branch daily. sulfamethox 2020-0 Yes [id number] 1{tbl} Take 1 [facility] azole-trime 3-25 tablet by ity of thoprim 00:00: mouth 2 [place] 800-160 mg 00 (two) Medical per tablet times Branch daily. sulfamethox 2020-0 Yes [id number] 1{tbl} Take 1 [facility] azole-trime 3-25 tablet by ity of thoprim 00:00: mouth 2 [place] 800-160 mg 00 (two) Medical per tablet times Branch daily. sulfamethox 2020-0 Yes [id number] 1{tbl} Take 1 [facility] azole-trime 3-25 tablet by ity of thoprim 00:00: mouth 2 [place] 800-160 mg 00 (two) Medical per tablet times Branch daily. sulfamethox 2020-0 Yes [id number] 1{tbl} Take 1 [facility] azole-trime 3-25 tablet by ity of thoprim 00:00: mouth 2 [place] 800-160 mg 00 (two) Medical per tablet times Branch daily. proMETHazin 2020-0 Yes 12.5mg Take 12.5 [facility] e 25 mg 3-07 mg by ity of tablet 01:16: mouth 3 [place] 39 (three) Medical times Branch daily as needed for Nausea and Vomiting (N/V). insulin 2020-0 Yes inject [facility] aspart 3-07 under the ity of U-100 01:16: skin. [place] (NOVOLOG 39 Medical FLEXPEN Branch U-100 INSULIN) 100 unit/mL (3 mL) injection carvediloL 2020-0 Yes 25mg Take 25 mg [facility] nivers 25 mg 3-07 by mouth 2 ity of tablet 01:16: (two) [place] 39 times Medical daily with Branch meals. proMETHazin 2020-0 Yes 12.5mg Take 12.5 [facility] e 25 mg 3-07 mg by ity of tablet 01:16: mouth 3 [place] 39 (three) Medical times Branch daily as needed for Nausea and Vomiting (N/V). insulin 2020-0 Yes inject [facility] aspart 3-07 under the ity of U-100 01:16: skin. [place] (NOVOLOG 39 Medical FLEXPEN Branch U-100 INSULIN) 100 unit/mL (3 mL) injection carvediloL 2020-0 Yes 25mg Take 25 mg [facility] nivers 25 mg 3-07 by mouth 2 ity of tablet 01:16: (two) [place] 39 times Medical daily with Branch meals. proMETHazin 2020-0 Yes 12.5mg Take 12.5 [facility] e 25 mg 3-07 mg by ity of tablet 01:16: mouth 3 [place] 39 (three) Medical times Branch daily as needed for Nausea and Vomiting (N/V). insulin 2020-0 Yes inject [facility] aspart 3-07 under the ity of U-100 01:16: skin. [place] (NOVOLOG 39 Medical FLEXPEN Branch U-100 INSULIN) 100 unit/mL (3 mL) injection carvediloL 2020-0 Yes 25mg Take 25 mg [facility] nivers 25 mg 3-07 by mouth 2 ity of tablet 01:16: (two) [place] 39 times Medical daily with Branch meals. proMETHazin 2020-0 Yes 12.5mg Take 12.5 [facility] e 25 mg 3-07 mg by ity of tablet 01:16: mouth 3 [place] [address] (three) Medical times Branch daily as needed for Nausea and Vomiting (N/V). insulin 2020-0 Yes inject [facility] aspart 3-07 under the ity of U-100 01:16: skin. [place] (NOVOLOG 39 Medical FLEXPEN Branch U-100 INSULIN) 100 unit/mL (3 mL) injection carvediloL 2020-0 Yes 25mg Take 25 mg [facility] nivers 25 mg 3-07 by mouth 2 ity of tablet 01:16: (two) [place] 39 times Medical daily with Branch meals. proMETHazin 2020-0 Yes 12.5mg Take 12.5 [facility] e 25 mg 3-07 mg by ity of tablet 01:16: mouth 3 [place] [address] (three) Medical times Branch daily as needed for Nausea and Vomiting (N/V). insulin 2020-0 Yes inject [facility] aspart 3-07 under the ity of U-100 01:16: skin. [place] (NOVOLOG 39 Medical FLEXPEN Branch U-100 INSULIN) 100 unit/mL (3 mL) injection carvediloL 2020-0 Yes 25mg Take 25 mg [facility] nivers 25 mg 3-07 by mouth 2 ity of tablet 01:16: (two) [place] 39 times Medical daily with Branch meals. proMETHazin 2020-0 Yes 12.5mg Take 12.5 [facility] e 25 mg 3-07 mg by ity of tablet 01:16: mouth 3 [place] [address] (three) Medical times Branch daily as needed for Nausea and Vomiting (N/V). insulin 2020-0 Yes inject [facility] aspart 3-07 under the ity of U-100 01:16: skin. [place] (NOVOLOG 39 Medical FLEXPEN Branch U-100 INSULIN) 100 unit/mL (3 mL) injection carvediloL 2020-0 Yes 25mg Take 25 mg [facility] nivers 25 mg 3-07 by mouth 2 ity of tablet 01:16: (two) [place] 39 times Medical daily with Branch meals. proMETHazin 2020-0 Yes 12.5mg Take 12.5 [facility] e 25 mg 3-07 mg by ity of tablet 01:16: mouth 3 [place] 39 (three) Medical times Branch daily as needed for Nausea and Vomiting (N/V). insulin 2020-0 Yes inject [facility] aspart 3-07 under the ity of U-100 01:16: skin. [place] (NOVOLOG 39 Medical FLEXPEN Branch U-100 INSULIN) 100 unit/mL (3 mL) injection carvediloL 2020-0 Yes 25mg Take 25 mg [facility] nivers 25 mg 3-07 by mouth 2 ity of tablet 01:16: (two) [place] 39 times Medical daily with Branch meals. proMETHazin 2020-0 Yes 12.5mg Take 12.5 [facility] e 25 mg 3-07 mg by ity of tablet 01:16: mouth 3 [place] [address] (three) Medical times Branch daily as needed for Nausea and Vomiting (N/V). insulin 2020-0 Yes inject [facility] aspart 3-07 under the ity of U-100 01:16: skin. [place] (NOVOLOG 39 Medical FLEXPEN Branch U-100 INSULIN) 100 unit/mL (3 mL) injection carvediloL 2020-0 Yes 25mg Take 25 mg [facility] nivers 25 mg 3-07 by mouth 2 ity of tablet 01:16: (two) [place] 39 times Medical daily with Branch meals. proMETHazin 2020-0 Yes 12.5mg Take 12.5 [facility] e 25 mg 3-07 mg by ity of tablet 01:16: mouth 3 [place] 39 (three) Medical times Branch daily as needed for Nausea and Vomiting (N/V). insulin 2020-0 Yes inject [facility] aspart 3-07 under the ity of U-100 01:16: skin. [place] (NOVOLOG 39 Medical FLEXPEN Branch U-100 INSULIN) 100 unit/mL (3 mL) injection carvediloL 2020-0 Yes 25mg Take 25 mg [facility] n[facility] 25 mg 3-07 by mouth 2 ity of tablet 01:16: (two) [place] 39 times Medical daily with Branch meals. proMETHazin 2020-0 Yes 12.5mg Take 12.5 [facility] e 25 mg 3-07 mg by ity of tablet 01:16: mouth 3 [place] 39 (three) Medical times Branch daily as needed for Nausea and Vomiting (N/V). insulin 2020-0 Yes inject [facility] aspart 3-07 under the ity of U-100 01:16: skin. [place] (NOVOLOG 39 Medical FLEXPEN Branch U-100 INSULIN) 100 unit/mL (3 mL) injection carvediloL 2020-0 Yes 25mg Take 25 mg [facility] n[facility] 25 mg 3-07 by mouth 2 ity of tablet 01:16: (two) [place] 39 times Medical daily with Branch meals. proMETHazin 2020-0 Yes 12.5mg Take 12.5 [facility] e 25 mg 3-07 mg by ity of tablet 01:16: mouth 3 [place] [address] (three) Medical times Branch daily as needed for Nausea and Vomiting (N/V). insulin 2020-0 Yes inject [facility] aspart 3-07 under the ity of U-100 01:16: skin. [place] (NOVOLOG 39 Medical FLEXPEN Branch U-100 INSULIN) 100 unit/mL (3 mL) injection carvediloL 2020-0 Yes 25mg Take 25 mg [facility] nivers 25 mg 3-07 by mouth 2 ity of tablet 01:16: (two) [place] 39 times Medical daily with Branch meals. proMETHazin 2020-0 Yes 12.5mg Take 12.5 [facility] e 25 mg 3-07 mg by ity of tablet 01:16: mouth 3 [place] 39 (three) Medical times Branch daily as needed for Nausea and Vomiting (N/V). insulin 2020-0 Yes inject [facility] aspart 3-07 under the ity of U-100 01:16: skin. [place] (NOVOLOG 39 Medical FLEXPEN Branch U-100 INSULIN) 100 unit/mL (3 mL) injection carvediloL 2020-0 Yes 25mg Take 25 mg [facility] nivers 25 mg 3-07 by mouth 2 ity of tablet 01:16: (two) [place] 39 times Medical daily with Branch meals. proMETHazin 2020-0 Yes 12.5mg Take 12.5 [facility] e 25 mg 3-07 mg by ity of tablet 01:16: mouth 3 [place] 39 (three) Medical times Branch daily as needed for Nausea and Vomiting (N/V). insulin 2020-0 Yes inject [facility] aspart 3-07 under the ity of U-100 01:16: skin. [place] (NOVOLOG 39 Medical FLEXPEN Branch U-100 INSULIN) 100 unit/mL (3 mL) injection carvediloL 2020-0 Yes 25mg Take 25 mg [facility] nivers 25 mg 3-07 by mouth 2 ity of tablet 01:16: (two) [place] 39 times Medical daily with Branch meals. proMETHazin 2020-0 Yes 12.5mg Take 12.5 [facility] e 25 mg 3-07 mg by ity of tablet 01:16: mouth 3 [place] 39 (three) Medical times Branch daily as needed for Nausea and Vomiting (N/V). insulin 2020-0 Yes inject [facility] aspart 3-07 under the ity of U-100 01:16: skin. [place] (NOVOLOG 39 Medical FLEXPEN Branch U-100 INSULIN) 100 unit/mL (3 mL) injection carvediloL 2020-0 Yes 25mg Take 25 mg [facility] nivers 25 mg 3-07 by mouth 2 ity of tablet 01:16: (two) [place] 39 times Medical daily with Branch meals. proMETHazin 2020-0 Yes 12.5mg Take 12.5 [facility] e 25 mg 3-07 mg by ity of tablet 01:16: mouth 3 [place] [address] (three) Medical times Branch daily as needed for Nausea and Vomiting (N/V). insulin 2020-0 Yes inject [facility] aspart 3-07 under the ity of U-100 01:16: skin. [place] (NOVOLOG 39 Medical FLEXPEN Branch U-100 INSULIN) 100 unit/mL (3 mL) injection carvediloL 2020-0 Yes 25mg Take 25 mg [facility] nivers 25 mg 3-07 by mouth 2 ity of tablet 01:16: (two) [place] 39 times Medical daily with Branch meals. proMETHazin 2020-0 Yes 12.5mg Take 12.5 [facility] e 25 mg 3-07 mg by ity of tablet 01:16: mouth 3 [place] [address] (three) Medical times Branch daily as needed for Nausea and Vomiting (N/V). insulin 2020-0 Yes inject [facility] aspart 3-07 under the ity of U-100 01:16: skin. [place] (NOVOLOG 39 Medical FLEXPEN Branch U-100 INSULIN) 100 unit/mL (3 mL) injection carvediloL 2020-0 Yes 25mg Take 25 mg [facility] nivers 25 mg 3-07 by mouth 2 ity of tablet 01:16: (two) [place] 39 times Medical daily with Branch meals. proMETHazin 2020-0 Yes 12.5mg Take 12.5 [facility] e 25 mg 3-07 mg by ity of tablet 01:16: mouth 3 [place] 39 (three) Medical times Branch daily as needed for Nausea and Vomiting (N/V). insulin 2020-0 Yes inject [facility] aspart 3-07 under the ity of U-100 01:16: skin. [place] (NOVOLOG 39 Medical FLEXPEN Branch U-100 INSULIN) 100 unit/mL (3 mL) injection carvediloL 2020-0 Yes 25mg Take 25 mg [facility] nivers 25 mg 3-07 by mouth 2 ity of tablet 01:16: (two) [place] 39 times Medical daily with Branch meals. proMETHazin 2020-0 Yes 12.5mg Take 12.5 [facility] e 25 mg 3-07 mg by ity of tablet 01:16: mouth 3 [place] [address] (three) Medical times Branch daily as needed for Nausea and Vomiting (N/V). insulin 2020-0 Yes inject [facility] aspart 3-07 under the ity of U-100 01:16: skin. [place] (NOVOLOG 39 Medical FLEXPEN Branch U-100 INSULIN) 100 unit/mL (3 mL) injection carvediloL 2020-0 Yes 25mg Take 25 mg [facility] nivers 25 mg 3-07 by mouth 2 ity of tablet 01:16: (two) [place] 39 times Medical daily with Branch meals. proMETHazin 2020-0 Yes 12.5mg Take 12.5 [facility] e 25 mg 3-07 mg by ity of tablet 01:16: mouth 3 [place] [address] (three) Medical times Branch daily as needed for Nausea and Vomiting (N/V). insulin 2020-0 Yes inject [facility] aspart 3-07 under the ity of U-100 01:16: skin. [place] (NOVOLOG 39 Medical FLEXPEN Branch U-100 INSULIN) 100 unit/mL (3 mL) injection carvediloL 2020-0 Yes 25mg Take 25 mg [facility] nivers 25 mg 3-07 by mouth 2 ity of tablet 01:16: (two) [place] 39 times Medical daily with Branch meals. proMETHazin 2020-0 Yes 12.5mg Take 12.5 [facility] e 25 mg 3-07 mg by ity of tablet 01:16: mouth 3 [place] [address] (three) Medical times Branch daily as needed for Nausea and Vomiting (N/V). insulin 2020-0 Yes inject [facility] aspart 3-07 under the ity of U-100 01:16: skin. [place] (NOVOLOG 39 Medical FLEXPEN Branch U-100 INSULIN) 100 unit/mL (3 mL) injection carvediloL 2020-0 Yes 25mg Take 25 mg [facility] 25 mg 3-07 by mouth 2 ity of tablet 01:16: (two) [place] 39 times Medical daily with Branch meals. proMETHazin 2020-0 Yes 12.5mg Take 12.5 [facility] 25 mg 3-07 mg by ity of tablet 01:16: mouth 3 [place] 39 (three) Medical times Branch daily as needed for Nausea and Vomiting (N/V). insulin 2020-0 Yes inject [facility] aspart 3-07 under the ity of U-100 01:16: skin. [place] (NOVOLOG 39 Medical FLEXPEN Branch U-100 INSULIN) 100 unit/mL (3 mL) injection carvediloL 2020-0 Yes 25mg Take 25 mg [facility] 25 mg 3-07 by mouth 2 ity of tablet 01:16: (two) [place] 39 times Medical daily with Branch meals. proMETHazin 2020-0 Yes 12.5mg Take 12.5 [facility] 25 mg 3-07 mg by ity of tablet 01:16: mouth 3 [place] [address] (three) Medical times Branch daily as needed for Nausea and Vomiting (N/V). insulin 2020-0 Yes inject [facility] aspart 3-07 under the ity of U-100 01:16: skin. [place] (NOVOLOG 39 Medical FLEXPEN Branch U-100 INSULIN) 100 unit/mL (3 mL) injection carvediloL 2020-0 Yes 25mg Take 25 mg [facility] 25 mg 3-07 by mouth 2 ity of tablet 01:16: (two) [place] 39 times Medical daily with Branch meals. proMETHazin 2020-0 Yes 12.5mg Take 12.5 [facility] 25 mg 3-07 mg by ity of tablet 01:16: mouth 3 [place] [address] (three) Medical times Branch daily as needed for Nausea and Vomiting (N/V). insulin 2020-0 Yes inject [facility] aspart 3-07 under the ity of U-100 01:16: skin. [place] (NOVOLOG 39 Medical FLEXPEN Branch U-100 INSULIN) 100 unit/mL (3 mL) injection carvediloL 2020-0 Yes 25mg Take 25 mg [facility] 25 mg 3-07 by mouth 2 ity of tablet 01:16: (two) [place] 39 times Medical daily with Branch meals. proMETHazin 2020-0 Yes 12.5mg Take 12.5 [facility] 25 mg 3-07 mg by ity of tablet 01:16: mouth 3 [place] 39 (three) Medical times Branch daily as needed for Nausea and Vomiting (N/V). insulin 2020-0 Yes inject [facility] aspart 3-07 under the ity of U-100 01:16: skin. [place] (NOVOLOG 39 Medical FLEXPEN Branch U-100 INSULIN) 100 unit/mL (3 mL) injection carvediloL 2020-0 Yes 25mg Take 25 mg [facility] 25 mg 3-07 by mouth 2 ity of tablet 01:16: (two) [place] 39 times Medical daily with Branch meals. proMETHazin 2020-0 Yes 12.5mg Take 12.5 [facility] 25 mg 3-07 mg by ity of tablet 01:16: mouth 3 [place] 39 (three) Medical times Branch daily as needed for Nausea and Vomiting (N/V). insulin 2020-0 Yes inject [facility] aspart 3-07 under the ity of U-100 01:16: skin. [place] (NOVOLOG 39 Medical FLEXPEN Branch U-100 INSULIN) 100 unit/mL (3 mL) injection carvediloL 2020-0 Yes 25mg Take 25 mg [facility] 25 mg 3-07 by mouth 2 ity of tablet 01:16: (two) [place] 39 times Medical daily with Branch meals. proMETHazin 2020-0 Yes 12.5mg Take 12.5 [facility] 25 mg 3-07 mg by ity of tablet 01:16: mouth 3 [place] 39 (three) Medical times Branch daily as needed for Nausea and Vomiting (N/V). insulin 2020-0 Yes inject [facility] aspart 3-07 under the ity of U-100 01:16: skin. [place] (NOVOLOG 39 Medical FLEXPEN Branch U-100 INSULIN) 100 unit/mL (3 mL) injection carvediloL 2020-0 Yes 25mg Take 25 mg [facility] 25 mg 3-07 by mouth 2 ity of tablet 01:16: (two) [place] 39 times Medical daily with Branch meals. proMETHazin 2020-0 Yes 12.5mg Take 12.5 [facility] 25 mg 3-07 mg by ity of tablet 01:16: mouth 3 [place] 39 (three) Medical times Branch daily as needed for Nausea and Vomiting (N/V). insulin 2020-0 Yes inject [facility] aspart 3-07 under the ity of U-100 01:16: skin. [place] (NOVOLOG 39 Medical FLEXPEN Branch U-100 INSULIN) 100 unit/mL (3 mL) injection carvediloL 2020-0 Yes 25mg Take 25 mg [facility] 25 mg 3-07 by mouth 2 ity of tablet 01:16: (two) [place] 39 times Medical daily with Branch meals. proMETHazin 2020-0 Yes 12.5mg Take 12.5 [facility] 25 mg 3-07 mg by ity of tablet 01:16: mouth 3 [place] [address] (three) Medical times Branch daily as needed for Nausea and Vomiting (N/V). insulin 2020-0 Yes inject [facility] aspart 3-07 under the ity of U-100 01:16: skin. [place] (NOVOLOG 39 Medical FLEXPEN Branch U-100 INSULIN) 100 unit/mL (3 mL) injection carvediloL 2020-0 Yes 25mg Take 25 mg [facility] 25 mg 3-07 by mouth 2 ity of tablet 01:16: (two) [place] 39 times Medical daily with Branch meals. proMETHazin 2020-0 Yes 12.5mg Take 12.5 [facility] 25 mg 3-07 mg by ity of tablet 01:16: mouth 3 [place] 39 (three) Medical times Branch daily as needed for Nausea and Vomiting (N/V). insulin 2020-0 Yes inject [facility] aspart 3-07 under the ity of U-100 01:16: skin. [place] (NOVOLOG 39 Medical FLEXPEN Branch U-100 INSULIN) 100 unit/mL (3 mL) injection carvediloL 2020-0 Yes 25mg Take 25 mg [facility] 25 mg 3-07 by mouth 2 ity of tablet 01:16: (two) [place] 39 times Medical daily with Branch meals. proMETHazin 2020-0 Yes 12.5mg Take 12.5 [facility] 25 mg 3-07 mg by ity of tablet 01:16: mouth 3 [place] 39 (three) Medical times Branch daily as needed for Nausea and Vomiting (N/V). insulin 2020-0 Yes inject [facility] aspart 3-07 under the ity of U-100 01:16: skin. [place] (NOVOLOG 39 Medical FLEXPEN Branch U-100 INSULIN) 100 unit/mL (3 mL) injection carvediloL 2020-0 Yes 25mg Take 25 mg [facility] 25 mg 3-07 by mouth 2 ity of tablet 01:16: (two) [place] 39 times Medical daily with Branch meals. proMETHazin 2020-0 Yes 12.5mg Take 12.5 [facility] 25 mg 3-07 mg by ity of tablet 01:16: mouth 3 [place] 39 (three) Medical times Branch daily as needed for Nausea and Vomiting (N/V). insulin 2020-0 Yes inject [facility] aspart 3-07 under the ity of U-100 01:16: skin. [place] (NOVOLOG 39 Medical FLEXPEN Branch U-100 INSULIN) 100 unit/mL (3 mL) injection carvediloL 2020-0 Yes 25mg Take 25 mg [facility] 25 mg 3-07 by mouth 2 ity of tablet 01:16: (two) [place] 39 times Medical daily with Branch meals. proMETHazin 2020-0 Yes 12.5mg Take 12.5 [facility] 25 mg 3-07 mg by ity of tablet 01:16: mouth 3 [place] [address] (three) Medical times Branch daily as needed for Nausea and Vomiting (N/V). insulin 2020-0 Yes inject [facility] aspart 3-07 under the ity of U-100 01:16: skin. [place] (NOVOLOG 39 Medical FLEXPEN Branch U-100 INSULIN) 100 unit/mL (3 mL) injection carvediloL 2020-0 Yes 25mg Take 25 mg [facility] 25 mg 3-07 by mouth 2 ity of tablet 01:16: (two) [place] 39 times Medical daily with Branch meals. proMETHazin 2020-0 Yes 12.5mg Take 12.5 [facility] 25 mg 3-07 mg by ity of tablet 01:16: mouth 3 [place] [address] (three) Medical times Branch daily as needed for Nausea and Vomiting (N/V). insulin 2020-0 Yes inject [facility] aspart 3-07 under the ity of U-100 01:16: skin. [place] (NOVOLOG 39 Medical FLEXPEN Branch U-100 INSULIN) 100 unit/mL (3 mL) injection carvediloL 2020-0 Yes 25mg Take 25 mg [facility] 25 mg 3-07 by mouth 2 ity of tablet 01:16: (two) [place] 39 times Medical daily with Branch meals. proMETHazin 2020-0 Yes 12.5mg Take 12.5 [facility] 25 mg 3-07 mg by ity of tablet 01:16: mouth 3 [place] 39 (three) Medical times Branch daily as needed for Nausea and Vomiting (N/V). insulin 2020-0 Yes inject [facility] aspart 3-07 under the ity of U-100 01:16: skin. [place] (NOVOLOG 39 Medical FLEXPEN Branch U-100 INSULIN) 100 unit/mL (3 mL) injection carvediloL 2020-0 Yes 25mg Take 25 mg [facility] 25 mg 3-07 by mouth 2 ity of tablet 01:16: (two) [place] 39 times Medical daily with Branch meals. proMETHazin 2020-0 Yes 12.5mg Take 12.5 [facility] 25 mg 3-07 mg by ity of tablet 01:16: mouth 3 [place] [address] (three) Medical times Branch daily as needed for Nausea and Vomiting (N/V). insulin 2020-0 Yes inject [facility] aspart 3-07 under the ity of U-100 01:16: skin. [place] (NOVOLOG 39 Medical FLEXPEN Branch U-100 INSULIN) 100 unit/mL (3 mL) injection carvediloL 2020-0 Yes 25mg Take 25 mg [facility] 25 mg 3-07 by mouth 2 ity of tablet 01:16: (two) [place] 39 times Medical daily with Branch meals. proMETHazin 2020-0 Yes 12.5mg Take 12.5 [facility] 25 mg 3-07 mg by ity of tablet 01:16: mouth 3 [place] [address] (three) Medical times Branch daily as needed for Nausea and Vomiting (N/V). insulin 2020-0 Yes inject [facility] aspart 3-07 under the ity of U-100 01:16: skin. [place] (NOVOLOG 39 Medical FLEXPEN Branch U-100 INSULIN) 100 unit/mL (3 mL) injection carvediloL 2020-0 Yes 25mg Take 25 mg [facility] 25 mg 3-07 by mouth 2 ity of tablet 01:16: (two) [place] 39 times Medical daily with Branch meals. proMETHazin 2020-0 Yes 12.5mg Take 12.5 [facility] 25 mg 3-07 mg by ity of tablet 01:16: mouth 3 [place] 39 (three) Medical times Branch daily as needed for Nausea and Vomiting (N/V). insulin 2020-0 Yes inject [facility] aspart 3-07 under the ity of U-100 01:16: skin. [place] (NOVOLOG 39 Medical FLEXPEN Branch U-100 INSULIN) 100 unit/mL (3 mL) injection carvediloL 2020-0 Yes 25mg Take 25 mg [facility] 25 mg 3-07 by mouth 2 ity of tablet 01:16: (two) [place] 39 times Medical daily with Branch meals. proMETHazin 2020-0 Yes 12.5mg Take 12.5 [facility] 25 mg 3-07 mg by ity of tablet 01:16: mouth 3 [place] [address] (three) Medical times Branch daily as needed for Nausea and Vomiting (N/V). insulin 2020-0 Yes inject [facility] aspart 3-07 under the ity of U-100 01:16: skin. [place] (NOVOLOG 39 Medical FLEXPEN Branch U-100 INSULIN) 100 unit/mL (3 mL) injection carvediloL 2020-0 Yes 25mg Take 25 mg [facility] 25 mg 3-07 by mouth 2 ity of tablet 01:16: (two) [place] 39 times Medical daily with Branch meals. proMETHazin 2020-0 Yes 12.5mg Take 12.5 [facility] 25 mg 3-07 mg by ity of tablet 01:16: mouth 3 [place] [address] (three) Medical times Branch daily as needed for Nausea and Vomiting (N/V). insulin 2020-0 Yes inject [facility] aspart 3-07 under the ity of U-100 01:16: skin. [place] (NOVOLOG 39 Medical FLEXPEN Branch U-100 INSULIN) 100 unit/mL (3 mL) injection carvediloL 2020-0 Yes 25mg Take 25 mg [facility] 25 mg 3-07 by mouth 2 ity of tablet 01:16: (two) [place] 39 times Medical daily with Branch meals. proMETHazin 2020-0 Yes 12.5mg Take 12.5 [facility] 25 mg 3-07 mg by ity of tablet 01:16: mouth 3 [place] [address] (three) Medical times Branch daily as needed for Nausea and Vomiting (N/V). insulin 2020-0 Yes inject [facility] aspart 3-07 under the ity of U-100 01:16: skin. [place] (NOVOLOG 39 Medical FLEXPEN Branch U-100 INSULIN) 100 unit/mL (3 mL) injection carvediloL 2020-0 Yes 25mg Take 25 mg [facility] 25 mg 3-07 by mouth 2 ity of tablet 01:16: (two) [place] 39 times Medical daily with Branch meals. proMETHazin 2020-0 Yes 12.5mg Take 12.5 [facility] 25 mg 3-07 mg by ity of tablet 01:16: mouth 3 [place] 39 (three) Medical times Branch daily as needed for Nausea and Vomiting (N/V). insulin 2020-0 Yes inject [facility] aspart 3-07 under the ity of U-100 01:16: skin. [place] (NOVOLOG 39 Medical FLEXPEN Branch U-100 INSULIN) 100 unit/mL (3 mL) injection carvediloL 2020-0 Yes 25mg Take 25 mg [facility] 25 mg 3-07 by mouth 2 ity of tablet 01:16: (two) [place] 39 times Medical daily with Branch meals. proMETHazin 2020-0 Yes 12.5mg Take 12.5 [facility] 25 mg 3-07 mg by ity of tablet 01:16: mouth 3 [place] 39 (three) Medical times Branch daily as needed for Nausea and Vomiting (N/V). insulin 2020-0 Yes inject [facility] aspart 3-07 under the ity of U-100 01:16: skin. [place] (NOVOLOG 39 Medical FLEXPEN Branch U-100 INSULIN) 100 unit/mL (3 mL) injection carvediloL 2020-0 Yes 25mg Take 25 mg [facility] 25 mg 3-07 by mouth 2 ity of tablet 01:16: (two) [place] 39 times Medical daily with Branch meals. proMETHazin 2020-0 Yes 12.5mg Take 12.5 [facility] 25 mg 3-07 mg by ity of tablet 01:16: mouth 3 [place] 39 (three) Medical times Branch daily as needed for Nausea and Vomiting (N/V). insulin 2020-0 Yes inject [facility] aspart 3-07 under the ity of U-100 01:16: skin. [place] (NOVOLOG 39 Medical FLEXPEN Branch U-100 INSULIN) 100 unit/mL (3 mL) injection carvediloL 2020-0 Yes 25mg Take 25 mg [facility] n[facility] 25 mg 3-07 by mouth 2 ity of tablet 01:16: (two) [place] 39 times Medical daily with Branch meals. proMETHazin 2020-0 Yes 12.5mg Take 12.5 [facility] 25 mg 3-07 mg by ity of tablet 01:16: mouth 3 [place] 39 (three) Medical times Branch daily as needed for Nausea and Vomiting (N/V). insulin 2020-0 Yes inject [facility] aspart 3-07 under the ity of U-100 01:16: skin. [place] (NOVOLOG 39 Medical FLEXPEN Branch U-100 INSULIN) 100 unit/mL (3 mL) injection carvediloL 2020-0 Yes 25mg Take 25 mg [facility] 25 mg 3-07 by mouth 2 ity of tablet 01:16: (two) [place] 39 times Medical daily with Branch meals. proMETHazin 2020-0 Yes 12.5mg Take 12.5 [facility] 25 mg 3-07 mg by ity of tablet 01:16: mouth 3 [place] [address] (three) Medical times Branch daily as needed for Nausea and Vomiting (N/V). insulin 2020-0 Yes inject [facility] aspart 3-07 under the ity of U-100 01:16: skin. [place] [facility] FLEXP[facility] U-100 INSULIN) 100 unit/mL (3 mL) injection carvediloL 2020-0 Yes 25mg Take 25 mg [facility] nivers 25 mg 3-07 by mouth 2 ity of tablet 01:16: (two) [place] 39 times Medical daily with Branch meals. proMETHazin 2020-0 Yes 12.5mg Take 12.5 [facility] 25 mg 3-07 mg by ity of tablet 01:16: mouth 3 [place] [address] (three) Medical times Branch daily as needed for Nausea and Vomiting (N/V). insulin 2020-0 Yes inject [facility] aspart 3-07 under the ity of U-100 01:16: skin. [place] (NOVOLOG 39 Medical FLEXPEN Branch U-100 INSULIN) 100 unit/mL (3 mL) injection carvediloL 2020-0 Yes 25mg Take 25 mg [facility] n[facility] 25 mg 3-07 by mouth 2 ity of tablet 01:16: (two) [place] 39 times Medical daily with Branch meals. proMETHazin 2020-0 Yes 12.5mg Take 12.5 [facility] 25 mg 3-07 mg by ity of tablet 01:16: mouth 3 [place] 39 (three) Medical times Branch daily as needed for Nausea and Vomiting (N/V). insulin 2020-0 Yes inject [facility] aspart 3-07 under the ity of U-100 01:16: skin. [place] (NOVOLOG 39 Medical FLEXPEN Branch U-100 INSULIN) 100 unit/mL (3 mL) injection carvediloL 2020-0 Yes 25mg Take 25 mg [facility] 25 mg 3-07 by mouth 2 ity of tablet 01:16: (two) [place] 39 times Medical daily with Branch meals. proMETHazin 2020-0 Yes 12.5mg Take 12.5 [facility] 25 mg 3-07 mg by ity of tablet 01:16: mouth 3 [place] 39 (three) Medical times Branch daily as needed for Nausea and Vomiting (N/V). insulin 2020-0 Yes inject [facility] aspart 3-07 under the ity of U-100 01:16: skin. [place] (NOVOLOG 39 Medical FLEXPEN Branch U-100 INSULIN) 100 unit/mL (3 mL) injection carvediloL 2020-0 Yes 25mg Take 25 mg [facility] nivers 25 mg 3-07 by mouth 2 ity of tablet 01:16: (two) [place] 39 times Medical daily with Branch meals. proMETHazin 2020-0 Yes 12.5mg Take 12.5 [facility] 25 mg 3-07 mg by ity of tablet 01:16: mouth 3 [place] [address] (three) Medical times Branch daily as needed for Nausea and Vomiting (N/V). insulin 2020-0 Yes inject [facility] aspart 3-07 under the ity of U-100 01:16: skin. [place] (NOVOLOG 39 Medical FLEXPEN Branch U-100 INSULIN) 100 unit/mL (3 mL) injection carvediloL 2020-0 Yes 25mg Take 25 mg [facility] nivers 25 mg 3-07 by mouth 2 ity of tablet 01:16: (two) [place] 39 times Medical daily with Branch meals. proMETHazin 2020-0 Yes 12.5mg Take 12.5 [facility] 25 mg 3-07 mg by ity of tablet 01:16: mouth 3 [place] [address] (three) Medical times Branch daily as needed for Nausea and Vomiting (N/V). insulin 2020-0 Yes inject [facility] aspart 3-07 under the ity of U-100 01:16: skin. [place] (NOVOLOG 39 Medical FLEXPEN Branch U-100 INSULIN) 100 unit/mL (3 mL) injection carvediloL 2020-0 Yes 25mg Take 25 mg [facility] nivers 25 mg 3-07 by mouth 2 ity of tablet 01:16: (two) [place] 39 times Medical daily with Branch meals. proMETHazin 2020-0 Yes 12.5mg Take 12.5 [facility] 25 mg 3-07 mg by ity of tablet 01:16: mouth 3 [place] 39 (three) Medical times Branch daily as needed for Nausea and Vomiting (N/V). insulin 2020-0 Yes inject [facility] aspart 3-07 under the ity of U-100 01:16: skin. [place] (NOVOLOG 39 Medical FLEXPEN Branch U-100 INSULIN) 100 unit/mL (3 mL) injection carvediloL 2020-0 Yes 25mg Take 25 mg [facility] nivers 25 mg 3-07 by mouth 2 ity of tablet 01:16: (two) [place] 39 times Medical daily with Branch meals. proMETHazin 2020-0 Yes 12.5mg Take 12.5 [facility] 25 mg 3-07 mg by ity of tablet 01:16: mouth 3 [place] 39 (three) Medical times Branch daily as needed for Nausea and Vomiting (N/V). insulin 2020-0 Yes inject [facility] aspart 3-07 under the ity of U-100 01:16: skin. [place] (NOVOLOG 39 Medical FLEXPEN Branch U-100 INSULIN) 100 unit/mL (3 mL) injection carvediloL 2020-0 Yes 25mg Take 25 mg [facility] nivers 25 mg 3-07 by mouth 2 ity of tablet 01:16: (two) [place] 39 times Medical daily with Branch meals. proMETHazin 2020-0 Yes 12.5mg Take 12.5 [facility] 25 mg 3-07 mg by ity of tablet 01:16: mouth 3 [place] [address] (three) Medical times Branch daily as needed for Nausea and Vomiting (N/V). insulin 2020-0 Yes inject [facility] aspart 3-07 under the ity of U-100 01:16: skin. [place] (NOVOLOG 39 Medical FLEXPEN Branch U-100 INSULIN) 100 unit/mL (3 mL) injection carvediloL 2020-0 Yes 25mg Take 25 mg [facility] nivers 25 mg 3-07 by mouth 2 ity of tablet 01:16: (two) [place] 39 times Medical daily with Branch meals. pregabalin 2020-0 2020- No 300mg Take 300 [...] as needed for Chest pain. losartan-hy 0 2020- No Take by Un osbaldo drochloroth 04-20 03-06 mouth. ity o f iazide 01:14: 00:00 [place] 100-25 mg 09 :00 Medical per tablet Branch insulin 2019-0 2020- No inject [facility] lispro, 04-20 03-06 under the ity of human, 100 01:14: 00:00 skin. [place] unit/mL 06 :00 Medical injection Branch acetaminoph 2019- 2020- No 500mg Take 500 [facility] en [...] mg by ity of capsule 00:22: mouth. [place] 08 Medical Branch acetaminoph 2020-0 Yes 500mg [...] by ity of capsule 00:13: mouth 2 [place] 40 (two) Medical times Branch daily. gabapentin 2020-0 Yes 100mg Take 100 [facility] 100 mg 3-07 mg by ity of capsule 00:13: mouth 2 [place] 40 (two) Medical times Branch daily. gabapentin 2020-0 Yes 100mg Take 100 [facility] 100 mg 3-07 mg by ity of capsule 00:13: mouth 2 [place] 40 (two) Medical times Branch daily. gabapentin 2020-0 Yes 100mg Take 100 [facility] 100 mg 3-07 mg by ity of capsule 00:13: mouth 2 [place] 40 (two) Medical times Branch daily. gabapentin 2020-0 Yes 100mg Take 100 [facility] 100 mg 3-07 mg by ity of capsule 00:13: mouth 2 [place] 40 (two) Medical times Branch daily. gabapentin 2020-0 Yes 100mg Take 100 [facility] 100 mg 3-07 mg by ity of capsule 00:13: mouth 2 [place] 40 (two) Medical times Branch daily. gabapentin 2020-0 Yes 100mg Take 100 [facility] 100 mg 3-07 mg by ity of capsule 00:13: mouth [address] [place] [address] 40 (two) Medical times Branch daily. gabapentin 2020-0 Yes 100mg Take 100 [facility] 100 mg 3-07 mg by ity of capsule 00:13: mouth 2 [place] 40 (two) Medical times Branch daily. gabapentin 2020-0 Yes 100mg Take 100 [facility] 100 mg 3-07 mg by ity of capsule 00:13: mouth 2 [place] 40 (two) Medical times Branch daily. gabapentin 2020-0 Yes 100mg Take 100 [facility] 100 mg 3-07 mg by ity of capsule 00:13: mouth 2 [place] 40 (two) Medical times Branch daily. gabapentin 2020-0 Yes 100mg Take 100 [facility] 100 mg 3-07 mg by ity of capsule 00:13: mouth 2 [place] 40 (two) Medical times Branch daily. gabapentin 2020-0 Yes 100mg Take 100 [facility] 100 mg 3-07 mg by ity of capsule 00:13: mouth 2 [place] 40 (two) Medical times Branch daily. gabapentin 2020-0 Yes 100mg Take 100 [facility] 100 mg 3-07 mg by ity of capsule 00:13: mouth 2 [place] 40 (two) Medical times Branch daily. gabapentin 2020-0 Yes 100mg Take 100 [facility] 100 mg 3-07 mg by ity of capsule 00:13: mouth 2 [place] 40 (two) Medical times Branch daily. gabapentin 2020-0 Yes 100mg Take 100 [facility] 100 mg 3-07 mg by ity of capsule 00:13: mouth 2 [place] 40 (two) Medical times Branch daily. gabapentin 2020-0 Yes 100mg Take 100 [facility] 100 mg 3-07 mg by ity of capsule 00:13: mouth 2 [place] 40 (two) Medical times Branch daily. gabapentin 2020-0 Yes 100mg Take 100 [facility] 100 mg 3-07 mg by ity of capsule 00:13: mouth 2 [place] 40 (two) Medical times Branch daily. gabapentin 2020-0 Yes 100mg Take 100 [facility] 100 mg 3-07 mg by ity of capsule 00:13: mouth 2 [place] 40 (two) Medical times Branch daily. gabapentin 2020-0 Yes 100mg Take 100 [facility] 100 mg 3-07 mg by ity of capsule 00:13: mouth [address] [place] [address] 40 (two) Medical times Branch daily. gabapentin 2020-0 Yes 100mg Take 100 [facility] 100 mg 3-07 mg by ity of capsule 00:13: mouth [address] [place] [address] (two) Medical times Branch daily. gabapentin 2020-0 Yes 100mg Take 100 [facility] 100 mg 3-07 mg by ity of capsule 00:13: mouth [address] [place] [address] 40 (two) Medical times Branch daily. gabapentin 2020-0 Yes 100mg Take 100 [facility] 100 mg 3-07 mg by ity of capsule 00:13: mouth [address] [place] [address] 40 (two) Medical times Branch daily. gabapentin 2020-0 Yes 100mg Take 100 [facility] 100 mg 3-07 mg by ity of capsule 00:13: mouth [address] [place] [address] 40 (two) Medical times Branch daily. gabapentin 2020-0 Yes 100mg Take 100 [facility] 100 mg 3-07 mg by ity of capsule 00:13: mouth [address] [place] [address] 40 (two) Medical times Branch daily. gabapentin 2020-0 Yes 100mg Take 100 [facility] 100 mg 3-07 mg by ity of capsule 00:13: mouth 2 [place] 40 (two) Medical times Branch daily. gabapentin 2020-0 Yes 100mg Take 100 [facility] 100 mg 3-07 mg by ity of capsule 00:13: mouth 2 [place] 40 (two) Medical times Branch daily. gabapentin 2020-0 Yes 100mg Take 100 [facility] 100 mg 3-07 mg by ity of capsule 00:13: mouth 2 [place] 40 (two) Medical times Branch daily. gabapentin 2020-0 Yes 100mg Take 100 [facility] 100 mg 3-07 mg by ity of capsule 00:13: mouth 2 [place] 40 (two) Medical times Branch daily. gabapentin 2020-0 Yes 100mg Take 100 [facility] 100 mg 3-07 mg by ity of capsule 00:13: mouth 2 [place] 40 (two) Medical times Branch daily. gabapentin 2020-0 Yes 100mg Take 100 [facility] 100 mg 3-07 mg by ity of capsule 00:13: mouth 2 [place] 40 (two) Medical times Branch daily. gabapentin 2020-0 Yes 100mg Take 100 [facility] 100 mg 3-07 mg by ity of capsule 00:13: mouth [address] [place] [address] 40 (two) Medical times Branch daily. gabapentin 2020-0 Yes 100mg Take 100 [facility] 100 mg 3-07 mg by ity of capsule 00:13: mouth [address] [place] [address] 40 (two) Medical times Branch daily. gabapentin 2020-0 Yes 100mg Take 100 [facility] 100 mg 3-07 mg by ity of capsule 00:13: mouth [address] [place] [address] 40 (two) Medical times Branch daily. gabapentin 2020-0 Yes 100mg Take 100 [facility] 100 mg 3-07 mg by ity of capsule 00:13: mouth [address] [place] [address] 40 (two) Medical times Branch daily. gabapentin 2020-0 Yes 100mg Take 100 [facility] 100 mg 3-07 mg by ity of capsule 00:13: mouth [address] [place] [address] 40 (two) Medical times Branch daily. gabapentin 2020-0 Yes 100mg Take 100 [facility] 100 mg 3-07 mg by ity of capsule 00:13: mouth [address] [place] [address] 40 (two) Medical times Branch daily. gabapentin 2020-0 Yes 100mg Take 100 [facility] 100 mg 3-07 mg by ity of capsule 00:13: mouth [address] [place] [address] 40 (two) Medical times Branch daily. gabapentin 2020-0 Yes 100mg Take 100 [facility] 100 mg 3-07 mg by ity of capsule 00:13: mouth 2 [place] 40 (two) Medical times Branch daily. gabapentin 2020-0 Yes 100mg Take 100 [facility] 100 mg 3-07 mg by ity of capsule 00:13: mouth [address] [place] [address] 40 (two) Medical times Branch daily. gabapentin 2020-0 Yes 100mg Take 100 [facility] 100 mg 3-07 mg by ity of capsule 00:13: mouth 2 [place] 40 (two) Medical times Branch daily. gabapentin 2020-0 Yes 100mg Take 100 [facility] 100 mg 3-07 mg by ity of capsule 00:13: mouth 2 [place] 40 (two) Medical times Branch daily. gabapentin 2020-0 Yes 100mg Take 100 Un osbaldo 100 mg 3-07 mg by ity of capsule 00:13: mouth 2 [place] 40 (two) Medical times Branch daily. gabapentin 2020-0 Yes 100mg Take 100 Un [place] 100 mg 3-07 mg by ity of capsule 00:13: mouth 2 [place] 40 (two) Medical times Branch daily. gabapentin 2020-0 Yes 100mg Take 100 Un [place] 100 mg 3-07 mg by ity of capsule 00:13: mouth 2 [place] 40 (two) Medical times Branch daily. gabapentin 2020-0 Yes 100mg Take 100 Un [place] 100 mg 3-07 mg by ity of capsule 00:13: mouth [address] [place] [address] 40 (two) Medical times Branch daily. gabapentin 2020-0 Yes 100mg Take 100 Un [place] 100 mg 3-07 mg by ity of capsule 00:13: mouth [address] [place] [address] 40 (two) Medical times Branch daily. gabapentin 2020-0 Yes 100mg Take 100 Un [place] 100 mg 3-07 mg by ity of capsule 00:13: mouth [address] [place] [address] 40 (two) Medical times Branch daily. gabapentin 2020-0 Yes 100mg Take 100 Un [place] 100 mg 3-07 mg by ity of capsule 00:13: mouth [address] [place] [address] 40 (two) Medical times Branch daily. gabapentin 2020-0 Yes 100mg Take 100 Un [place] 100 mg 3-07 mg by ity of capsule 00:13: mouth 2 [place] 40 (two) Medical times Branch daily. gabapentin 2020-0 Yes 100mg Take 100 Un [place] 100 mg 3-07 mg by ity of capsule 00:13: mouth 2 [place] 40 (two) Medical times Branch daily. gabapentin 2020-0 Yes 100mg Take 100 Un [place] 100 mg 3-07 mg by ity of capsule 00:13: mouth 2 [place] 40 (two) Medical times Branch daily. gabapentin 2020-0 Yes 100mg Take 100 Un [place] 100 mg 3-07 mg by ity of capsule 00:13: mouth 2 [place] 40 (two) Medical times Branch daily. gabapentin 2020-0 Yes 100mg Take 100 Un [place] 100 mg 3-07 mg by ity of capsule 00:13: mouth 2 [place] 40 (two) Medical times Branch daily. hydrALAZINE 2020-0 Yes 50mg Take 50 mg [facility] 50 mg 3-07 by mouth 3 ity of tablet 00:01: (three) [place] 47 times Medical daily with Branch meals. hydrALAZINE 2020-0 Yes 50mg Take 50 mg [facility] 50 mg 3-07 by mouth 3 ity of tablet 00:01: (three) [place] 47 times Medical daily with Branch meals. hydrALAZINE 2020-0 Yes 50mg Take 50 mg [facility] 50 mg 3-07 by mouth 3 ity of tablet 00:01: (three) [place] 47 times Medical daily with Branch meals. hydrALAZINE 2020-0 Yes 50mg Take 50 mg [facility] 50 mg 3-07 by mouth 3 ity of tablet 00:01: (three) [place] 47 times Medical daily with Branch meals. hydrALAZINE 2020-0 Yes 50mg Take 50 mg [facility] 50 mg 3-07 by mouth 3 ity of tablet 00:01: (three) [place] 47 times Medical daily with Branch meals. hydrALAZINE 2020-0 Yes 50mg Take 50 mg [facility] 50 mg 3-07 by mouth 3 ity of tablet 00:01: (three) [place] 47 times Medical daily with Branch meals. hydrALAZINE 2020-0 Yes 50mg Take 50 mg [facility] 50 mg 3-07 by mouth 3 ity of tablet 00:01: (three) [place] 47 times Medical daily with Branch meals. hydrALAZINE 2020-0 Yes 50mg Take 50 mg [facility] 50 mg 3-07 by mouth 3 ity of tablet 00:01: (three) [place] 47 times Medical daily with Branch meals. hydrALAZINE 2020-0 Yes 50mg Take 50 mg [facility] 50 mg 3-07 by mouth 3 ity of tablet 00:01: (three) [place] 47 times Medical daily with Branch meals. hydrALAZINE 2020-0 Yes 50mg Take 50 mg [facility] 50 mg 3-07 by mouth 3 ity of tablet 00:01: (three) [place] 47 times Medical daily with Branch meals. hydrALAZINE 2020-0 Yes 50mg Take 50 mg [facility] 50 mg 3-07 by mouth 3 ity of tablet 00:01: (three) [place] [address] times Medical daily with Branch meals. hydrALAZINE 2020-0 Yes 50mg Take 50 mg [facility] 50 mg 3-07 by mouth 3 ity of tablet 00:01: (three) [place] 47 times Medical daily with Branch meals. hydrALAZINE 2020-0 Yes 50mg Take 50 mg [facility] 50 mg 3-07 by mouth 3 ity of tablet 00:01: (three) [place] 47 times Medical daily with Branch meals. hydrALAZINE 2020-0 Yes 50mg Take 50 mg [facility] 50 mg 3-07 by mouth 3 ity of tablet 00:01: (three) [place] 47 times Medical daily with Branch meals. hydrALAZINE 2020-0 Yes 50mg Take 50 mg [facility] 50 mg 3-07 by mouth 3 ity of tablet 00:01: ([facility]) [place] 47 times Medical daily with Branch meals. hydrALAZINE 2020-0 Yes 50mg Take 50 mg [facility] 50 mg 3-07 by mouth 3 ity of tablet 00:01: ([facility]) [place] 47 times Medical daily with Branch meals. hydrALAZINE 2020-0 Yes 50mg Take 50 mg [facility] 50 mg 3-07 by mouth 3 ity of tablet 00:01: (three) [place] 47 times Medical daily with Branch meals. hydrALAZINE 2020-0 Yes 50mg Take 50 mg [facility] 50 mg 3-07 by mouth 3 ity of tablet 00:01: ([facility]) [place] 47 times Medical daily with Branch meals. hydrALAZINE 2020-0 Yes 50mg Take 50 mg [facility] 50 mg 3-07 by mouth 3 ity of tablet 00:01: (three) [place] 47 times Medical daily with Branch meals. hydrALAZINE 2020-0 Yes 50mg Take 50 mg [facility] 50 mg 3-07 by mouth 3 ity of tablet 00:01: (three) [place] 47 times Medical daily with Branch meals. hydrALAZINE 2020-0 Yes 50mg Take 50 mg [facility] 50 mg 3-07 by mouth 3 ity of tablet 00:01: (three) [place] 47 times Medical daily with Branch meals. losartan-hy 2020-0 Yes Take by Uni vers drochloroth 3-07 mouth. ity of iazide 00:01: [place] 100-25 mg 47 Medical per tablet Branch hydrALAZINE 2020-0 Yes 50mg Take 50 mg [facility] 50 mg 3-07 by mouth 3 ity of tablet 00:01: (three) [place] 47 times Medical daily with Branch meals. hydrALAZINE 2020-0 Yes 50mg Take 50 mg [facility] 50 mg 3-07 by mouth 3 ity of tablet 00:01: (three) [place] 47 times Medical daily with Branch meals. hydrALAZINE 2020-0 Yes 50mg Take 50 mg [facility] 50 mg 3-07 by mouth 3 ity of tablet 00:01: (three) [place] 47 times Medical daily with Branch meals. hydrALAZINE 2020-0 Yes 50mg Take 50 mg [facility] 50 mg 3-07 by mouth 3 ity of tablet 00:01: (three) [place] 47 times Medical daily with Branch meals. hydrALAZINE 2020-0 Yes 50mg Take 50 mg [facility] 50 mg 3-07 by mouth 3 ity of tablet 00:01: ([facility]) [place] 47 times Medical daily with Branch meals. hydrALAZINE 2020-0 Yes 50mg Take 50 mg [facility] 50 mg 3-07 by mouth 3 ity of tablet 00:01: ([facility]) [place] [address] times Medical daily with Branch meals. hydrALAZINE 2020-0 Yes 50mg Take 50 mg [facility] 50 mg 3-07 by mouth 3 ity of tablet 00:01: (three) [place] [address] times Medical daily with Branch meals. hydrALAZINE 2020-0 Yes 50mg Take 50 mg [facility] 50 mg 3-07 by mouth 3 ity of tablet 00:01: (three) [place] [address] times Medical daily with Branch meals. hydrALAZINE 2020-0 Yes 50mg Take 50 mg [facility] 50 mg 3-07 by mouth 3 ity of tablet 00:01: (three) [place] 47 times Medical daily with Branch meals. hydrALAZINE 2020-0 Yes 50mg Take 50 mg [facility] 50 mg 3-07 by mouth 3 ity of tablet 00:01: (three) [place] [address] times Medical daily with Branch meals. hydrALAZINE 2020-0 Yes 50mg Take 50 mg [facility] 50 mg 3-07 by mouth 3 ity of tablet 00:01: (three) [place] [address] times Medical daily with Branch meals. hydrALAZINE 2020-0 Yes 50mg Take 50 mg [facility] 50 mg 3-07 by mouth 3 ity of tablet 00:01: (three) [place] [address] times Medical daily with Branch meals. hydrALAZINE 2020-0 Yes 50mg Take 50 mg [facility] 50 mg 3-07 by mouth 3 ity of tablet 00:01: (three) [place] 47 times Medical daily with Branch meals. hydrALAZINE 2020-0 Yes 50mg Take 50 mg [facility] 50 mg 3-07 by mouth 3 ity of tablet 00:01: (three) [place] 47 times Medical daily with Branch meals. hydrALAZINE 2020-0 Yes 50mg Take 50 mg [facility] 50 mg 3-07 by mouth 3 ity of tablet 00:01: (three) [place] 47 times Medical daily with Branch meals. hydrALAZINE 2020-0 Yes 50mg Take 50 mg [facility] 50 mg 3-07 by mouth 3 ity of tablet 00:01: ([facility]) [place] 47 times Medical daily with Branch meals. hydrALAZINE 2020-0 Yes 50mg Take 50 mg [facility] 50 mg 3-07 by mouth 3 ity of tablet 00:01: ([facility]) [place] [address] times Medical daily with Branch meals. hydrALAZINE 2020-0 Yes 50mg Take 50 mg [facility] 50 mg 3-07 by mouth 3 ity of tablet 00:01: ([facility]) [place] [address] times Medical daily with Branch meals. hydrALAZINE 2020-0 Yes 50mg Take 50 mg [facility] 50 mg 3-07 by mouth 3 ity of tablet 00:01: ([facility]) [place] [address] times Medical daily with Branch meals. hydrALAZINE 2020-0 Yes 50mg Take 50 mg [facility] 50 mg 3-07 by mouth 3 ity of tablet 00:01: ([facility]) [place] [address] times Medical daily with Branch meals. hydrALAZINE 2020-0 Yes 50mg Take 50 mg [facility] 50 mg 3-07 by mouth 3 ity of tablet 00:01: ([facility]) [place] [address] times Medical daily with Branch meals. hydrALAZINE 2020-0 Yes 50mg Take 50 mg [facility] 50 mg 3-07 by mouth 3 ity of tablet 00:01: ([facility]) [place] [address] times Medical daily with Branch meals. hydrALAZINE 2020-0 Yes 50mg Take 50 mg [facility] 50 mg 3-07 by mouth 3 ity of tablet 00:01: ([facility]) [place] [address] times Medical daily with Branch meals. hydrALAZINE 2020-0 Yes 50mg Take 50 mg [facility] 50 mg 3-07 by mouth 3 ity of tablet 00:01: (three) [place] [address] times Medical daily with Branch meals. hydrALAZINE 2020-0 Yes 50mg Take 50 mg [facility] 50 mg 3-07 by mouth 3 ity of tablet 00:01: ([facility]) [place] 47 times Medical daily with Branch meals. hydrALAZINE 2020-0 Yes 50mg Take 50 mg [facility] 50 mg 3-07 by mouth 3 ity of tablet 00:01: (three) [place] 47 times Medical daily with Branch meals. hydrALAZINE 2020-0 Yes 50mg Take 50 mg [facility] 50 mg 3-07 by mouth 3 ity of tablet 00:01: (three) [place] 47 times Medical daily with Branch meals. hydrALAZINE 2020-0 Yes 50mg Take 50 mg [facility] 50 mg 3-07 by mouth 3 ity of tablet 00:01: (three) [place] 47 times Medical daily with Branch meals. hydrALAZINE 2020-0 Yes 50mg Take 50 mg [facility] 50 mg 3-07 by mouth 3 ity of tablet 00:01: (three) [place] 47 times Medical daily with Branch meals. hydrALAZINE 2020-0 Yes 50mg Take 50 mg [facility] 50 mg 3-07 by mouth 3 ity of tablet 00:01: (three) [place] 47 times Medical daily with Branch meals. hydrALAZINE 2020-0 Yes 50mg Take 50 mg [facility] 50 mg 3-07 by mouth 3 ity of tablet 00:01: (three) [place] 47 times Medical daily with Branch meals. hydrALAZINE 2020-0 Yes 50mg Take 50 mg [facility] 50 mg 3-07 by mouth 3 ity of tablet 00:01: (three) [place] 47 times Medical daily with Branch meals. hydrALAZINE 2020-0 Yes 50mg Take 50 mg [facility] 50 mg 3-07 by mouth 3 ity of tablet 00:01: (three) [place] 47 times Medical daily with Branch meals. nitroglycer 2020-[address] 0.3 U nivers in 0.3 mg 3-06 mg under ity of sublingual 23:52: the tongue [place] tablet 42 every 5 Medical (five) Branch minutes as needed for Chest pain. carvediloL 2020-0 Yes 25mg Take 25 mg U nivers 25 mg 3-06 by mouth 2 ity of tablet 19:16: (two) [place] 39 times Medical daily with Branch meals. proMETHazin 2020-0 Yes 12.5mg Take 12.5 Univers e 25 mg 3-06 mg by ity of tablet 19:16: mouth 3 [place] 39 (three) Medical times Branch daily as needed for Nausea and Vomiting (N/V). insulin 2020-0 Yes inject [facility] aspart 3-06 under the ity of U-100 19:16: skin. [place] (NOVOLOG 39 Medical FLEXPEN Branch U-100 INSULIN) [...] needed for tablet Pain. SERTraline 2020-0 Yes [id number] 25mg Take 1 U nivers 25 mg 3-06 tablet by ity of tablet 00:00: mouth [place] 00 daily. Medical Branch SERTraline 2020-0 Yes [id number] 25mg Take 1 U nivers 25 mg 3-06 tablet by ity of tablet 00:00: mouth [place] 00 daily. Medical Branch SERTraline 2020-0 Yes [id number] 25mg Take 1 U nivers 25 mg 3-06 tablet by ity of tablet 00:00: mouth [place] 00 daily. Medical Branch SERTraline 2020-0 Yes [id number] 25mg Take 1 U nivers 25 mg 3-06 tablet by ity of tablet 00:00: mouth [place] 00 daily. Medical Branch SERTraline 2020-0 Yes [id number] 25mg Take 1 U nivers 25 mg 3-06 tablet by ity of tablet 00:00: mouth [place] 00 daily. Medical Branch SERTraline 2020-0 Yes [id number] 25mg Take 1 U nivers 25 mg 3-06 tablet by ity of tablet 00:00: mouth [place] 00 daily. Medical Branch SERTraline 2019-0 Yes [id number] 25mg Take 1 U nivers 25 mg 3-06 tablet by ity of tablet 00:00: mouth [place] 00 daily. Medical Branch SERTraline 2019-0 Yes [id number] 25mg Take 1 U nivers 25 mg 3-06 tablet by ity of tablet 00:00: mouth [place] 00 daily. Medical Branch SERTraline 2019-0 Yes [id number] 25mg Take 1 U nivers 25 mg 3-06 tablet by ity of tablet 00:00: mouth [place] 00 daily. Medical Branch SERTraline 2019-0 Yes [id number] 25mg Take 1 U nivers 25 mg 3-06 tablet by ity of tablet 00:00: mouth [place] 00 daily. Medical Branch SERTraline 2019-0 Yes [id number] 25mg Take 1 U nivers 25 mg 3-06 tablet by ity of tablet 00:00: mouth [place] 00 daily. Medical Branch SERTraline 2019-0 Yes [id number] 25mg Take 1 U nivers 25 mg 3-06 tablet by ity of tablet 00:00: mouth [place] 00 daily. Medical Branch SERTraline 2019-0 Yes [id number] 25mg Take 1 U nivers 25 mg 3-06 tablet by ity of tablet 00:00: mouth [place] 00 daily. Medical Branch SERTraline 2019-0 2020- No [id number] 25mg Take 1 [facility] 25 mg 3-06 05-21 tablet by ity of tablet 00:00: 00:00 mouth [place] 00 :00 daily. Medical Branch SERTraline 2019-0 2020- No [id number] 25mg Take 1 [facility] 25 mg 3-06 [...] IN ity of nasal spray 00:00: ONE [place] NOSTRIL Medical EVERY 8 Branch HOURS NEEDED FOR HEADACHE butorphanol 2020-0 Yes USE 1 Unive rs 10 mg/mL 3-05 SPRAY IN ity of nasal spray 00:00: ONE [place] NOSTRIL Medical EVERY 8 Branch HOURS NEEDED FOR HEADACHE butorphanol 2020-0 Yes USE 1 Unive rs 10 mg/mL 3-05 SPRAY IN ity of nasal spray 00:00: ONE [place] NOSTRIL Medical EVERY 8 Branch HOURS NEEDED FOR HEADACHE butorphanol 2020-0 Yes USE 1 Unive rs 10 mg/mL 3-05 SPRAY IN ity of nasal spray 00:00: ONE [place] NOSTRIL Medical EVERY 8 Branch HOURS NEEDED FOR HEADACHE butorphanol 2020-0 Yes USE 1 Unive rs 10 mg/mL 3-05 SPRAY IN ity of nasal spray 00:00: ONE [place] NOSTRIL Medical EVERY 8 Branch HOURS NEEDED FOR HEADACHE butorphanol 2020-0 Yes USE 1 Unive rs 10 mg/mL 3-05 SPRAY IN ity of nasal spray 00:00: ONE [place] NOSTRIL Medical EVERY 8 Branch HOURS NEEDED FOR HEADACHE butorphanol 2020-0 Yes USE 1 Unive rs 10 mg/mL 3-05 SPRAY IN ity of nasal spray 00:00: ONE [place] NOSTRIL Medical EVERY 8 Branch HOURS NEEDED FOR HEADACHE butorphanol 2020-0 Yes USE 1 Unive rs 10 mg/mL 3-05 SPRAY IN ity of nasal spray 00:00: ONE [place] [address] NOSTRIL Medical EVERY 8 Branch HOURS NEEDED FOR HEADACHE butorphanol 2020-0 Yes USE 1 Unive rs 10 mg/mL 3-05 SPRAY IN ity of nasal spray 00:00: ONE [place] NOSTRIL Medical EVERY 8 Branch HOURS NEEDED FOR HEADACHE butorphanol 2020-0 Yes USE 1 Unive rs 10 mg/mL 3-05 SPRAY IN ity of nasal spray 00:00: ONE [place] [address] NOSTRIL Medical EVERY 8 Branch HOURS NEEDED FOR HEADACHE butorphanol 2020-0 2020- No USE 1 Univ ers 10 mg/mL 3-05 04-01 SPRAY IN ity of nasal spray 00:00: 00:00 ONE [place] 00 :00 NOSTRIL Medical EVERY 8 Branch [...] TABLET BY ity of tablet 00:00: MOUTH [place] 00 EVERYDAY Medical AT BEDTIME Branch AMITRIPTYLI 2020-0 Yes TAKE 1 Univ ers [place] 25 mg 3-02 TABLET BY ity of tablet 00:00: MOUTH [place] 00 EVERYDAY Medical AT BEDTIME Branch AMITRIPTYLI 2020-0 Yes TAKE 1 [facility] ers [place] 25 mg 3-02 TABLET BY ity of tablet 00:00: MOUTH [place] 00 EVERYDAY Medical AT BEDTIME Branch AMITRIPTYLI 2019-0 Yes TAKE 1 [facility] ers [place] 25 mg 3-02 TABLET BY ity of tablet 00:00: MOUTH [place] 00 EVERYDAY Medical AT BEDTIME Branch AMITRIPTYLI 2019-0 Yes TAKE 1 [facility] ers [place] 25 mg 3-02 TABLET BY ity of tablet 00:00: MOUTH [place] 00 EVERYDAY Medical AT BEDTIME Branch AMITRIPTYLI 2019-0 2020- No TAKE 1 Uni vers [place] 25 mg 3-02 03-30 TABLET BY ity o f tablet 00:00: 00:00 MOUTH [place] 00 :00 EVERYDAY Medical AT BEDTIME Branch zolpidem 10 2019-0 Yes 10mg Take 10 mg [facility] mg tablet 3-01 by mouth ity of 00:00: at [place] [address] bedtime. I Medical ADVISE Branch AGAINST TAKING THIS MEDICATION DUE TO THE RISKS. [facility] zolpidem 10 2019-0 Yes 10mg Take 10 mg [facility] mg tablet 3-01 by mouth ity of 00:00: at [place] [address] bedtime. I Medical ADVISE Branch AGAINST TAKING THIS MEDICATION DUE TO THE RISKS. [facility] zolpidem 10 2019-0 Yes 10mg Take 10 mg [facility] mg tablet 3-01 by mouth ity of 00:00: at [place] [address] bedtime. I Medical ADVISE Branch AGAINST TAKING THIS MEDICATION DUE TO THE RISKS. [facility] zolpidem 10 2019-0 Yes 10mg Take 10 mg [facility] mg tablet 3-01 by mouth ity of 00:00: at [place] [address] bedtime. I Medical ADVISE Branch AGAINST TAKING THIS MEDICATION DUE TO THE RISKS. [facility] zolpidem 10 2019-0 Yes 10mg Take 10 mg [facility] mg tablet 3-01 by mouth ity of 00:00: at [place] [address] bedtime. I Medical ADVISE Branch AGAINST TAKING THIS MEDICATION DUE TO THE RISKS. [facility] zolpidem 10 2019-0 Yes 10mg Take 10 mg [facility] mg tablet 3-01 by mouth ity of 00:00: at [place] [address] bedtime. I Medical ADVISE Branch AGAINST TAKING THIS MEDICATION DUE TO THE RISKS. [facility] zolpidem 10 2020-0 Yes 10mg Take 10 mg [facility] mg tablet 3-01 by mouth ity of 00:00: at [place] [address] bedtime. I Medical ADVISE Branch AGAINST TAKING THIS MEDICATION DUE TO THE RISKS. [facility] zolpidem 10 2020-0 Yes 10mg Take 10 mg [facility] mg tablet 3-01 by mouth ity of 00:00: at [place] [address] bedtime. I Medical ADVISE Branch AGAINST TAKING THIS MEDICATION DUE TO THE RISKS. [facility] zolpidem 10 2020-0 Yes 10mg Take 10 mg [facility] mg tablet 3-01 by mouth ity of 00:00: at [place] [address] bedtime. I Medical ADVISE Branch AGAINST TAKING THIS MEDICATION DUE TO THE RISKS. [facility] zolpidem 10 2020-0 Yes 10mg Take 10 mg [facility] mg tablet 3-01 by mouth ity of 00:00: at [place] [address] bedtime. I Medical ADVISE Branch AGAINST TAKING THIS MEDICATION DUE TO THE RISKS. [facility] zolpidem 10 2020-0 Yes 10mg Take 10 mg [facility] mg tablet 3-01 by mouth ity of 00:00: at [place] [address] bedtime. I Medical ADVISE Branch AGAINST TAKING THIS MEDICATION DUE TO THE RISKS. [facility] zolpidem 10 2020-0 Yes 10mg Take 10 mg [facility] mg tablet 3-01 by mouth ity of 00:00: at [place] [address] bedtime. I Medical ADVISE Branch AGAINST TAKING THIS MEDICATION DUE TO THE RISKS. [facility] zolpidem 10 2020-0 Yes 10mg Take 10 mg [facility] mg tablet 3-01 by mouth ity of 00:00: at [place] [address] bedtime. I Medical ADVISE Branch AGAINST TAKING THIS MEDICATION DUE TO THE RISKS. [facility] zolpidem 10 2020-0 Yes 10mg Take 10 mg [facility] mg tablet 3-01 by mouth ity of 00:00: at [place] [address] bedtime. I Medical ADVISE Branch AGAINST TAKING THIS MEDICATION DUE TO THE RISKS. [facility] zolpidem 10 2020-0 Yes 10mg Take 10 mg [facility] mg tablet 3-01 by mouth ity of 00:00: at [place] [address] bedtime. I Medical ADVISE Branch AGAINST TAKING THIS MEDICATION DUE TO THE RISKS. [facility] zolpidem 10 2020-0 Yes 10mg Take 10 mg [facility] mg tablet 3-01 by mouth ity of 00:00: at [place] [address] bedtime. I Medical ADVISE Branch AGAINST TAKING THIS MEDICATION DUE TO THE RISKS. [facility] zolpidem 10 2020-0 Yes 10mg Take 10 mg [facility] mg tablet 3-01 by mouth ity of 00:00: at [place] [address] bedtime. I Medical ADVISE Branch AGAINST TAKING THIS MEDICATION DUE TO THE RISKS. [facility] zolpidem 10 2020-0 Yes 10mg Take 10 mg [facility] mg tablet 3-01 by mouth ity of 00:00: at [place] [address] bedtime. I Medical ADVISE Branch AGAINST TAKING THIS MEDICATION DUE TO THE RISKS. [facility] zolpidem 10 2019-0 Yes 10mg Take 10 mg [facility] mg tablet 3-01 by mouth ity of 00:00: at [place] [address] bedtime. I Medical ADVISE Branch AGAINST TAKING THIS MEDICATION DUE TO THE RISKS. [facility] zolpidem 10 2019-0 Yes 10mg Take 10 mg [facility] mg tablet 3-01 by mouth ity of 00:00: at [place] [address] bedtime. I Medical ADVISE Branch AGAINST TAKING THIS MEDICATION DUE TO THE RISKS. [facility] zolpidem 10 2019-0 Yes 10mg Take 10 mg [facility] mg tablet 3-01 by mouth ity of 00:00: at [place] [address] bedtime. I Medical ADVISE Branch AGAINST TAKING THIS MEDICATION DUE TO THE RISKS. [facility] zolpidem 10 2020-0 Yes 10mg Take 10 mg [facility] mg tablet 3-01 by mouth ity of 00:00: at [place] [address] bedtime. [facility] zolpidem 10 2020-0 Yes 10mg Take 10 mg [facility] mg tablet 3-01 by mouth ity of 00:00: at [place] [address] bedtime. [facility] zolpidem 10 2020-0 Yes 10mg Take 10 mg [facility] mg tablet 3-01 by mouth ity of 00:00: at [place] [address] bedtime. [facility] zolpidem 10 2020-0 Yes 10mg Take 10 mg [facility] mg tablet 3-01 by mouth ity of 00:00: at [place] [address] bedtime. I Medical ADVISE Branch AGAINST TAKING THIS MEDICATION DUE TO THE RISKS. [facility] zolpidem 10 2020-0 Yes 10mg Take 10 mg [facility] mg tablet 3-01 by mouth ity of 00:00: at [place] [address] bedtime. I Medical ADVISE Branch AGAINST TAKING THIS MEDICATION DUE TO THE RISKS. [facility] zolpidem 10 2020-0 Yes 10mg Take 10 mg [facility] mg tablet 3-01 by mouth ity of 00:00: at [place] 00 bedtime. I Medical ADVISE Branch AGAINST TAKING THIS MEDICATION DUE TO THE RISKS. [facility] zolpidem 10 2020-0 Yes 10mg Take 10 mg [facility] mg tablet 3-01 by mouth ity of 00:00: at [place] 00 bedtime. I Medical ADVISE Branch AGAINST TAKING THIS MEDICATION DUE TO THE RISKS. [facility] zolpidem 10 2020-0 Yes 10mg Take 10 mg [facility] mg tablet 3-01 by mouth ity of 00:00: at [place] 00 bedtime. I Medical ADVISE Branch AGAINST TAKING THIS MEDICATION DUE TO THE RISKS. [facility] zolpidem 10 2020-0 Yes 10mg Take 10 mg [facility] mg tablet 3-01 by mouth ity of 00:00: at [place] [address] bedtime. I Medical ADVISE Branch AGAINST TAKING THIS MEDICATION DUE TO THE RISKS. [facility] zolpidem 10 2020-0 Yes 10mg Take 10 mg [facility] mg tablet 3-01 by mouth ity of 00:00: at [place] [address] bedtime. I Medical ADVISE Branch AGAINST TAKING THIS MEDICATION DUE TO THE RISKS. [facility] zolpidem 10 2020-0 Yes 10mg Take 10 mg [facility] mg tablet 3-01 by mouth ity of 00:00: at [place] [address] bedtime. I Medical ADVISE Branch AGAINST TAKING THIS MEDICATION DUE TO THE RISKS. [facility] zolpidem 10 2020-0 Yes 10mg Take 10 mg [facility] mg tablet 3-01 by mouth ity of 00:00: at [place] [address] bedtime. I Medical ADVISE Branch AGAINST TAKING THIS MEDICATION DUE TO THE RISKS. [facility] zolpidem 10 2020-0 Yes 10mg Take 10 mg [facility] mg tablet 3-01 by mouth ity of 00:00: at [place] [address] bedtime. I Medical ADVISE Branch AGAINST TAKING THIS MEDICATION DUE TO THE RISKS. [facility] zolpidem 10 2020-0 Yes 10mg Take 10 mg [facility] mg tablet 3-01 by mouth ity of 00:00: at [place] [address] bedtime. I Medical ADVISE Branch AGAINST TAKING THIS MEDICATION DUE TO THE RISKS. [facility] zolpidem 10 2020-0 Yes 10mg Take 10 mg [facility] mg tablet 3-01 by mouth ity of 00:00: at [place] 00 bedtime. I Medical ADVISE Branch AGAINST TAKING THIS MEDICATION DUE TO THE RISKS. [facility] zolpidem 10 2020-0 Yes 10mg Take 10 mg [facility] mg tablet 3-01 by mouth ity of 00:00: at [place] [address] bedtime. I Medical ADVISE Branch AGAINST TAKING THIS MEDICATION DUE TO THE RISKS. [facility] zolpidem 10 2020-0 Yes 10mg Take 10 mg [facility] mg tablet 3-01 by mouth ity of 00:00: at [place] [address] bedtime. I Medical ADVISE Branch AGAINST TAKING THIS MEDICATION DUE TO THE RISKS. [facility] zolpidem 10 2020-0 Yes 10mg Take 10 mg [facility] mg tablet 3-01 by mouth ity of 00:00: at [place] [address] bedtime. I Medical ADVISE Branch AGAINST TAKING THIS MEDICATION DUE TO THE RISKS. [facility] zolpidem 10 2020-0 Yes 10mg Take 10 mg [facility] mg tablet 3-01 by mouth ity of 00:00: at [place] [address] bedtime. I Medical ADVISE Branch AGAINST TAKING THIS MEDICATION DUE TO THE RISKS. [facility] zolpidem 10 2020-0 Yes 10mg Take 10 mg [facility] mg tablet 3-01 by mouth ity of 00:00: at [place] [address] bedtime. I Medical ADVISE Branch AGAINST TAKING THIS MEDICATION DUE TO THE RISKS. [facility] zolpidem 10 2020-0 Yes 10mg Take 10 mg [facility] mg tablet 3-01 by mouth ity of 00:00: at [place] [address] bedtime. I Medical ADVISE Branch AGAINST TAKING THIS MEDICATION DUE TO THE RISKS. [facility] zolpidem 10 2020-0 Yes 10mg Take 10 mg [facility] mg tablet 3-01 by mouth ity of 00:00: at [place] [address] bedtime. I Medical ADVISE Branch AGAINST TAKING THIS MEDICATION DUE TO THE RISKS. [facility] zolpidem 10 2020-0 Yes 10mg Take 10 mg [facility] mg tablet 3-01 by mouth ity of 00:00: at [place] [address] bedtime. I Medical ADVISE Branch AGAINST TAKING THIS MEDICATION DUE TO THE RISKS. [facility] zolpidem 10 2020-0 Yes 10mg Take 10 mg [facility] mg tablet 3-01 by mouth ity of 00:00: at [place] [address] bedtime. I Medical ADVISE Branch AGAINST TAKING THIS MEDICATION DUE TO THE RISKS. [facility] zolpidem 10 2020-0 Yes 10mg Take 10 mg [facility] mg tablet 3-01 by mouth ity of 00:00: at [place] [address] bedtime. I Medical ADVISE Branch AGAINST TAKING THIS MEDICATION DUE TO THE RISKS. [facility] zolpidem 10 2020-0 Yes 10mg Take 10 mg [facility] mg tablet 3-01 by mouth ity of 00:00: at [place] 00 bedtime. I Medical ADVISE Branch AGAINST TAKING THIS MEDICATION DUE TO THE RISKS. [facility] zolpidem 10 2020-0 Yes 10mg Take 10 mg [facility] mg tablet 3-01 by mouth ity of 00:00: at [place] [address] bedtime. I Medical ADVISE Branch AGAINST TAKING THIS MEDICATION DUE TO THE RISKS. [facility] zolpidem 10 2020-0 Yes 10mg Take 10 mg [facility] mg tablet 3-01 by mouth ity of 00:00: at [place] [address] bedtime. I Medical ADVISE Branch AGAINST TAKING THIS MEDICATION DUE TO THE RISKS. [facility] zolpidem 10 2020-0 Yes 10mg Take 10 mg [facility] mg tablet 3-01 by mouth ity of 00:00: at [place] [address] bedtime. I Medical ADVISE Branch AGAINST TAKING THIS MEDICATION DUE TO THE RISKS. [facility] zolpidem 10 2020-0 Yes 10mg Take 10 mg [facility] mg tablet 3-01 by mouth ity of 00:00: at [place] [address] bedtime. I Medical ADVISE Branch AGAINST TAKING THIS MEDICATION DUE TO THE RISKS. [facility] zolpidem 10 2020-0 Yes 10mg Take 10 mg [facility] mg tablet 3-01 by mouth ity of 00:00: at [place] [address] bedtime. I Medical ADVISE Branch AGAINST TAKING THIS MEDICATION DUE TO THE RISKS. [facility] zolpidem 10 2020-0 Yes 10mg Take 10 mg [facility] mg tablet 3-01 by mouth ity of 00:00: at [place] [address] bedtime. I Medical ADVISE Branch AGAINST TAKING THIS MEDICATION DUE TO THE RISKS. [facility] zolpidem 10 2020-0 Yes 10mg Take 10 mg [facility] mg tablet 3-01 by mouth ity of 00:00: at [place] [address] bedtime. I Medical ADVISE Branch AGAINST TAKING THIS MEDICATION DUE TO THE RISKS. [facility] zolpidem 10 2020-0 Yes 10mg Take 10 mg [facility] mg tablet 3-01 by mouth ity of 00:00: at [place] [address] bedtime. I Medical ADVISE Branch AGAINST TAKING THIS MEDICATION DUE TO THE RISKS. [facility] zolpidem 10 2020-0 Yes 10mg Take 10 mg [facility] mg tablet 3-01 by mouth ity of 00:00: at [place] 00 bedtime. I Medical ADVISE Branch AGAINST TAKING THIS MEDICATION DUE TO THE RISKS. [facility] zolpidem 10 2020-0 Yes 10mg Take 10 mg [facility] mg tablet 3-01 by mouth ity of 00:00: at [place] 00 bedtime. I Medical ADVISE Branch AGAINST TAKING THIS MEDICATION DUE TO THE RISKS. [facility] ondansetron 2020-0 Yes 4mg Take 4 [...] mouth ity of disintegrat 00:00: every 8 [place] as ing tablet 00 (eight) Medica l [...] ty of capsule 00:00: 00:00 MOUTH 3 :00 TIMES A Medical DAY Branch NEEDED [...] mg by ity of tablet 00:00: mouth [place] (three) Medical times Branch daily. cloNIDine 2020-0 [...] mg by ity of tablet 00:00: mouth [place] (three) Medical times Branch daily. cloNIDine 2020-0 Yes .3mg Take 0.3 Univ ers 0.3 mg 2-26 mg by ity of tablet 00:00: mouth (three) Medical times Branch daily. cloNIDine 2020-0 Yes Univers 0.3 mg 2-26 ity of tablet 00:00: [place] Medical Branch cloNIDine 2020-0 Yes Univers 0.3 [...] mg by ity of tablet 00:00: mouth [place] (three) Medical times Branch daily. cloNIDine 2020-0 Yes .3mg Take 0.3 Univ ers 0.3 mg 2-26 mg by ity of tablet 00:00: mouth [place] (three) Medical times Branch daily. cloNIDine 2020-0 [...] mg by ity of tablet 00:00: mouth [place] (three) Medical times Branch daily. cloNIDine 2020-0 Yes .3mg Take 0.3 Univ ers 0.3 mg 2-26 mg by ity of tablet 00:00: mouth [place] (three) Medical times Branch daily. cloNIDine 2020-0 [...] mouth 3 (three) Medical times Branch daily. amitriptyli 2020-0 Yes 25mg Take 1 Univ ers ne 25 mg 2-07 tablet by ity of tablet 00:00: mouth at [place] [address] bedtime. Medical Branch butorphanol 2020-0 Yes USE 1 Unive rs 10 mg/mL 2-07 SPRAY IN ity of nasal spray 00:00: ONE [place] [address] NOSTRIL Medical EVERY 8 Branch HOURS NEEDED FOR HEADACHE amitriptyli 2020-0 Yes 25mg Take 1 Univ ers ne 25 mg 2-07 tablet by ity of tablet 00:00: mouth at [place] [address] bedtime. Medical Branch butorphanol 2020-0 Yes USE 1 Unive rs 10 mg/mL 2-07 SPRAY IN ity of nasal spray 00:00: ONE [place] [address] NOSTRIL Medical EVERY 8 Branch HOURS NEEDED FOR HEADACHE butorphanol 2020-0 Yes USE 1 Unive rs 10 mg/mL 2-07 SPRAY IN ity of nasal spray 00:00: ONE [place] [address] NOSTRIL Medical EVERY 8 Branch HOURS NEEDED FOR HEADACHE butorphanol 2020-0 2020- No USE 1 Univ ers 10 mg/mL 2-07 03-05 SPRAY IN ity of nasal spray 00:00: 00:00 ONE [place] 00 :00 NOSTRIL Medical EVERY 8 Branch HOURS NEEDED FOR HEADACHE butorphanol 2020-0 2020- No USE 1 Univ ers 10 mg/mL 2-07 03-05 SPRAY IN ity of nasal spray 00:00: 00:00 ONE [place] 00 :00 NOSTRIL Medical EVERY 8 Branch HOURS NEEDED FOR HEADACHE amitriptyli 2020-0 2020- No 25mg Take 1 Uni vers ne 25 mg 2-07 03-02 tablet by ity o f tablet 00:00: 00:00 mouth at [place] 00 :00 bedtime. Medical Branch amLODIPine 2020-0 Yes 5mg Take 5 mg Un osbaldo 5 mg tablet 2-06 by mouth 2 it y of 00:00: (two) [place] 00 times Medical daily. Branch amLODIPine 2020-0 Yes 5mg Take 5 mg Un osbaldo 5 mg tablet 2-06 by mouth 2 it y of 00:00: (two) [place] 00 times Medical daily. Branch amLODIPine 2020-0 Yes 5mg Take 5 mg Un osbaldo 5 mg tablet 2-06 by mouth 2 it y of 00:00: (two) [place] 00 times Medical daily. Branch amLODIPine 2020-0 [...] by mouth ity of 00:00: every 12 [place] 00 (twelve) Medical hours. Branch sotalol 80 2020-0 Yes 80mg Take 80 mg U nivers mg tablet 1-16 by mouth ity of 00:00: every 12 [place] [address] (twelve) Medical hours. Branch sotalol 80 2020-0 Yes 80mg Take 80 mg U nivers mg tablet 1-16 by mouth ity of 00:00: every 12 [place] [address] (twelve) Medical hours. Branch sotalol 80 2020-0 Yes 80mg Take 80 mg U nivers mg tablet 1-16 by mouth ity of 00:00: every 12 [place] [address] (twelve) Medical hours. Branch sotalol 80 2020-0 Yes 80mg Take 80 mg U nivers mg tablet 1-16 by mouth ity of 00:00: every 12 [place] [address] (twelve) Medical hours. Branch sotalol 80 2020-0 Yes 80mg Take 80 mg U nivers mg tablet 1-16 by mouth ity of 00:00: every 12 [place] 00 (twelve) Medical hours. Branch sotalol 80 2020-0 Yes 80mg Take 80 mg U nivers mg tablet 1-16 by mouth ity of 00:00: every 12 [place] 00 (twelve) Medical hours. Branch sotalol 80 2020-0 Yes 80mg Take 80 mg U nivers mg tablet 1-16 by mouth ity of 00:00: every 12 [place] 00 (twelve) Medical hours. Branch sotalol 80 2020-0 Yes 80mg Take 80 mg U nivers mg tablet 1-16 by mouth ity of 00:00: every 12 [place] [address] (twelve) Medical hours. Branch sotalol 80 2020-0 Yes 80mg Take 80 mg U nivers mg tablet 1-16 by mouth ity of 00:00: every 12 [place] 00 (twelve) Medical hours. Branch sotalol 80 2020-0 Yes 80mg Take 80 mg U nivers mg tablet 1-16 by mouth ity of 00:00: every 12 [place] 00 (twelve) Medical hours. Branch sotalol 80 2020-0 Yes 80mg Take 80 mg U nivers mg tablet 1-16 by mouth ity of 00:00: every 12 [place] 00 (twelve) Medical hours. Branch sotalol 80 2020-0 Yes 80mg Take 80 mg U nivers mg tablet 1-16 by mouth ity of 00:00: every 12 [place] 00 (twelve) Medical hours. Branch sotalol 80 2020-0 Yes 80mg Take 80 mg U nivers mg tablet 1-16 by mouth ity of 00:00: every 12 [place] 00 (twelve) Medical hours. Branch sotalol 80 2020-0 Yes 80mg Take 80 mg U nivers mg tablet 1-16 by mouth ity of 00:00: every 12 [place] 00 (twelve) Medical hours. Branch sotalol 80 2020-0 Yes 80mg Take 80 mg U nivers mg tablet 1-16 by mouth ity of 00:00: every 12 [place] 00 (twelve) Medical hours. Branch sotalol 80 2020-0 Yes 80mg Take 80 mg U nivers mg tablet 1-16 by mouth ity of 00:00: every 12 [place] 00 (twelve) Medical hours. Branch sotalol 80 2020-0 Yes 80mg Take 80 mg U nivers mg tablet 1-16 by mouth ity of 00:00: every 12 [place] 00 (twelve) Medical hours. Branch sotalol 80 2020-0 Yes 80mg Take 80 mg U nivers mg tablet 1-16 by mouth ity of 00:00: every 12 [place] 00 (twelve) Medical hours. Branch sotalol 80 2020-0 Yes 80mg Take 80 mg U nivers mg tablet 1-16 by mouth ity of 00:00: every 12 [place] 00 (twelve) Medical hours. Branch sotalol 80 2020-0 Yes 80mg Take 80 mg U nivers mg tablet 1-16 by mouth ity of 00:00: every 12 [place] 00 (twelve) Medical hours. Branch sotalol 80 2020-0 Yes [facility] mg tablet 1-16 ity of 00:00: [place] 00 Medical Branch sotalol 80 2020-0 Yes [facility] mg tablet 1-16 ity of 00:00: [place] 00 Medical Branch sotalol 80 2020-0 Yes 80mg Take 80 mg U nivers mg tablet 1-16 by mouth ity of 00:00: every 12 [place] 00 (twelve) Medical hours. Branch sotalol 80 2020-0 Yes 80mg Take 80 mg U nivers mg tablet 1-16 by mouth ity of 00:00: every 12 [place] 00 (twelve) Medical hours. Branch sotalol 80 2020-0 Yes 80mg Take 80 mg U nivers mg tablet 1-16 by mouth ity of 00:00: every 12 [place] 00 (twelve) Medical hours. Branch sotalol 80 2020-0 Yes 80mg Take 80 mg U nivers mg tablet 1-16 by mouth ity of 00:00: every 12 [place] 00 (twelve) Medical hours. Branch sotalol 80 2020-0 Yes 80mg Take 80 mg U nivers mg tablet 1-16 by mouth ity of 00:00: every 12 [place] 00 (twelve) Medical hours. Branch sotalol 80 2020-0 Yes 80mg Take 80 mg U nivers mg tablet 1-16 by mouth ity of 00:00: every 12 [place] 00 (twelve) Medical hours. Branch sotalol 80 2020-0 Yes 80mg Take 80 mg U nivers mg tablet 1-16 by mouth ity of 00:00: every 12 [place] 00 (twelve) Medical hours. Branch sotalol 80 2020-0 Yes 80mg Take 80 mg U nivers mg tablet 1-16 by mouth ity of 00:00: every 12 [place] 00 (twelve) Medical hours. Branch sotalol 80 2020-0 Yes 80mg Take 80 mg U nivers mg tablet 1-16 by mouth ity of 00:00: every 12 [place] 00 (twelve) Medical hours. Branch sotalol 80 2020-0 Yes 80mg Take 80 mg U nivers mg tablet 1-16 by mouth ity of 00:00: every 12 [place] 00 (twelve) Medical hours. Branch sotalol 80 2020-0 Yes 80mg Take 80 mg U nivers mg tablet 1-16 by mouth ity of 00:00: every 12 [place] 00 (twelve) Medical hours. Branch sotalol 80 2020-0 Yes 80mg Take 80 mg U nivers mg tablet 1-16 by mouth ity of 00:00: every 12 [place] 00 (twelve) Medical hours. Branch sotalol 80 2020-0 Yes 80mg Take 80 mg U nivers mg tablet 1-16 by mouth ity of 00:00: every 12 [place] 00 (twelve) Medical hours. Branch sotalol 80 2020-0 Yes 80mg Take 80 mg U nivers mg tablet 1-16 by mouth ity of 00:00: every 12 [place] 00 (twelve) Medical hours. Branch sotalol 80 2020-0 Yes 80mg Take 80 mg U nivers mg tablet 1-16 by mouth ity of 00:00: every 12 [place] 00 (twelve) Medical hours. Branch sotalol 80 2020-0 Yes 80mg Take 80 mg U nivers mg tablet 1-16 by mouth ity of 00:00: every 12 [place] 00 (twelve) Medical hours. Branch sotalol 80 2020-0 Yes 80mg Take 80 mg U nivers mg tablet 1-16 by mouth ity of 00:00: every 12 [place] 00 (twelve) Medical hours. Branch sotalol 80 2020-0 Yes 80mg Take 80 mg U nivers mg tablet 1-16 by mouth ity of 00:00: every 12 [place] 00 (twelve) Medical hours. Branch sotalol 80 2020-0 Yes 80mg Take 80 mg U nivers mg tablet 1-16 by mouth ity of 00:00: every 12 [place] 00 (twelve) Medical hours. Branch sotalol 80 2020-0 Yes 80mg Take 80 mg U nivers mg tablet 1-16 by mouth ity of 00:00: every 12 [place] 00 (twelve) Medical hours. Branch sotalol 80 2020-0 Yes 80mg Take 80 mg U nivers mg tablet 1-16 by mouth ity of 00:00: every 12 [place] 00 (twelve) Medical hours. Branch sotalol 80 2020-0 Yes 80mg Take 80 mg U nivers mg tablet 1-16 by mouth ity of 00:00: every 12 [place] 00 (twelve) Medical hours. Branch sotalol 80 2020-0 Yes 80mg Take 80 mg U nivers mg tablet 1-16 by mouth ity of 00:00: every 12 [place] 00 (twelve) Medical hours. Branch sotalol 80 2020-0 Yes 80mg Take 80 mg U nivers mg tablet 1-16 by mouth ity of 00:00: every 12 [place] 00 (twelve) Medical hours. Branch sotalol 80 2020-0 Yes 80mg Take 80 mg U nivers mg tablet 1-16 by mouth ity of 00:00: every 12 [place] 00 (twelve) Medical hours. Branch sotalol 80 2020-0 Yes 80mg Take 80 mg U nivers mg tablet 1-16 by mouth ity of 00:00: every 12 [place] 00 (twelve) Medical hours. Branch sotalol 80 2020-0 Yes 80mg Take 80 mg U nivers mg tablet 1-16 by mouth ity of 00:00: every 12 [place] 00 (twelve) Medical hours. Branch sotalol 80 2020-0 Yes 80mg Take 80 mg U nivers mg tablet 1-16 by mouth ity of 00:00: every 12 [place] 00 (twelve) Medical hours. Branch sotalol 80 2020-0 Yes 80mg Take 80 mg U nivers mg tablet 1-16 by mouth ity of 00:00: every 12 [place] [address] (twelve) Medical hours. Branch sotalol 80 2020-0 Yes 80mg Take 80 mg U nivers mg tablet 1-16 by mouth ity of 00:00: every 12 [place] 00 (twelve) Medical hours. Branch sotalol 80 2020-0 Yes 80mg Take 80 mg U nivers mg tablet 1-16 by mouth ity of 00:00: every 12 [place] 00 (twelve) Medical hours. Branch sotalol 80 2020-0 Yes 80mg Take 80 mg U nivers mg tablet 1-16 by mouth ity of 00:00: every 12 [place] [address] (twelve) Medical hours. Branch sotalol 80 2020-0 Yes 80mg Take 80 mg U nivers mg tablet 1-16 by mouth ity of 00:00: every 12 [place] 00 (twelve) Medical hours. Branch sotalol 80 2020-0 Yes 80mg Take 80 mg U nivers mg tablet 1-16 by mouth ity of 00:00: every 12 [place] [address] (twelve) Medical hours. Branch butorphanol 2018- Yes USE 1 Unive rs 10 mg/mL 2-20 SPRAY IN ity of nasal spray 00:00: ONE [place] [address] NOSTRIL Medical EVERY 8 Branch HOURS NEEDED FOR HEADACHE butorphanol 2018-02 Yes USE 1 Unive rs 10 mg/mL 2-20 SPRAY IN ity of nasal spray 00:00: ONE [place] [address] NOSTRIL Medical EVERY 8 Branch HOURS NEEDED FOR HEADACHE butorphanol 2018-02 Yes USE 1 Unive rs 10 mg/mL 2-20 SPRAY IN ity of nasal spray 00:00: ONE [place] [address] NOSTRIL Medical EVERY 8 Branch HOURS NEEDED FOR HEADACHE butorphanol 2018-02 Yes USE 1 Unive rs 10 mg/mL 2-20 SPRAY IN ity of nasal spray 00:00: ONE [place] [address] NOSTRIL Medical EVERY 8 Branch HOURS NEEDED FOR HEADACHE butorphanol 2018-02 Yes USE 1 Unive rs 10 mg/mL 2-20 SPRAY IN ity of nasal spray 00:00: ONE [place] [address] NOSTRIL Medical EVERY 8 Branch HOURS NEEDED FOR HEADACHE butorphanol 2018-02 2020- No USE 1 Univ ers 10 mg/mL 2-20 02-07 SPRAY IN ity of nasal spray 00:00: 00:00 ONE [place] 00 :00 NOSTRIL Medical EVERY 8 Branch HOURS NEEDED FOR HEADACHE butorphanol 2018-02 2020- No USE 1 Univ ers 10 mg/mL 2-20 02-07 SPRAY IN ity of nasal spray 00:00: 00:00 ONE [place] 00 :00 NOSTRIL Medical EVERY 8 Branch HOURS NEEDED FOR HEADACHE pantoprazol 2018-02 Yes 40mg Take 40 mg Univers e 40 mg EC 2-17 by mouth ity o f tablet 00:00: daily. [address] pantoprazol 2018-02 Yes 40mg Take 40 mg Univers e 40 mg EC 2-17 by mouth ity o f tablet 00:00: daily. [address] pantoprazol 2018-02 Yes 40mg Take 40 mg Univers e 40 mg EC 2-17 by mouth ity o f tablet 00:00: daily. [address] pantoprazol 2018-02 Yes 40mg Take 40 mg Univers e 40 mg EC 2-17 by mouth ity o f tablet 00:00: daily. [address] pantoprazol 2018-02 Yes 40mg Take 40 mg Univers e 40 mg EC 2-17 by mouth ity o f tablet 00:00: daily. [address] pantoprazol 2018-02 Yes 40mg Take 40 mg [facility] e 40 mg EC 2-17 by mouth ity o f tablet 00:00: daily. [address] pantoprazol 2018-02 Yes 40mg Take 40 mg [facility] e 40 mg EC 2-17 by mouth ity o f tablet 00:00: daily. [place] [facility] pantoprazol 2018-02 Yes 40mg Take 40 mg Univers e 40 mg EC 2-17 by mouth ity o f tablet 00:00: daily. [place] [facility] pantoprazol 2018-02 Yes 40mg Take 40 mg Univers e 40 mg EC 2-17 by mouth ity o f tablet 00:00: daily. [place] [facility] pantoprazol 2018-02 Yes 40mg Take 40 mg Univers e 40 mg EC 2-17 by mouth ity o f tablet 00:00: daily. [place] [facility] pantoprazol 2018-02 Yes 40mg Take 40 mg Univers e 40 mg EC 2-17 by mouth ity o f tablet 00:00: daily. [address] pantoprazol 2018-02 Yes 40mg Take 40 mg [facility] e 40 mg EC 2-17 by mouth ity o f tablet 00:00: daily. [place] [facility] pantoprazol 2018-02 Yes 40mg Take 40 mg Univers e 40 mg EC 2-17 by mouth ity o f tablet 00:00: daily. [place] [facility] pantoprazol 2018-02 Yes 40mg Take 40 mg Univers e 40 mg EC 2-17 by mouth ity o f tablet 00:00: daily. [place] [facility] pantoprazol 2018-02 Yes 40mg Take 40 mg Univers e 40 mg EC 2-17 by mouth ity o f tablet 00:00: daily. [address] pantoprazol 2018-02 Yes 40mg Take 40 mg [facility] e 40 mg EC 2-17 by mouth ity o f tablet 00:00: daily. [place] [facility] pantoprazol 2018-02 Yes 40mg Take 40 mg Univers e 40 mg EC 2-17 by mouth ity o f tablet 00:00: daily. [place] [facility] pantoprazol 2018-02 Yes 40mg Take 40 mg Univers e 40 mg EC 2-17 by mouth ity o f tablet 00:00: daily. [address] pantoprazol 2018-02 Yes 40mg Take 40 mg Univers e 40 mg EC 2-17 by mouth ity o f tablet 00:00: daily. [address] pantoprazol 2018-02 Yes 40mg Take 40 mg [facility] e 40 mg EC 2-17 by mouth ity o f tablet 00:00: daily. [place] [facility] pantoprazol 2018-02 Yes 40mg Take 40 mg Univers e 40 mg EC 2-17 by mouth ity o f tablet 00:00: daily. [place] [facility] pantoprazol 2018-02 Yes 40mg Take 40 mg Univers e 40 mg EC 2-17 by mouth ity o f tablet 00:00: daily. [place] [facility] pantoprazol 2018-02 Yes 40mg Take 40 mg Univers e 40 mg EC 2-17 by mouth ity o f tablet 00:00: daily. [place] [facility] pantoprazol 2018-02 Yes 40mg Take 40 mg Univers e 40 mg EC 2-17 by mouth ity o f tablet 00:00: daily. [place] [facility] pantoprazol 2018-02 Yes 40mg Take 40 mg Univers e 40 mg EC 2-17 by mouth ity o f tablet 00:00: daily. [place] [facility] pantoprazol 2018-02 Yes 40mg Take 40 mg Univers e 40 mg EC 2-17 by mouth ity o f tablet 00:00: daily. [place] [facility] pantoprazol 2018-02 Yes 40mg Take 40 mg Univers e 40 mg EC 2-17 by mouth ity o f tablet 00:00: daily. [place] [facility] pantoprazol 2018-02 Yes 40mg Take 40 mg Univers e 40 mg EC 2-17 by mouth ity o f tablet 00:00: daily. [place] [facility] pantoprazol 2018-02 Yes 40mg Take 40 mg Univers e 40 mg EC 2-17 by mouth ity o f tablet 00:00: daily. [place] [facility] pantoprazol 2018-02 Yes 40mg Take 40 mg Univers e 40 mg EC 2-17 by mouth ity o f tablet 00:00: daily. [place] [facility] pantoprazol 2018-02 Yes 40mg Take 40 mg Univers e 40 mg EC 2-17 by mouth ity o f tablet 00:00: daily. [place] [facility] pantoprazol 2018-02 Yes 40mg Take 40 mg Univers e 40 mg EC 2-17 by mouth ity o f tablet 00:00: daily. [address] pantoprazol 2018-02 Yes 40mg Take 40 mg Univers e 40 mg EC 2-17 by mouth ity o f tablet 00:00: daily. [address] pantoprazol 2018-02 Yes 40mg Take 40 mg Univers e 40 mg EC 2-17 by mouth ity o f tablet 00:00: daily. [place] [facility] pantoprazol 2018-02 Yes 40mg Take 40 mg Univers e 40 mg EC 2-17 by mouth ity o f tablet 00:00: daily. [place] [facility] pantoprazol 2018-02 Yes 40mg Take 40 mg Univers e 40 mg EC 2-17 by mouth ity o f tablet 00:00: daily. [place] [facility] pantoprazol 2018-02 Yes 40mg Take 40 mg Univers e 40 mg EC 2-17 by mouth ity o f tablet 00:00: daily. [place] [facility] pantoprazol 2018-02 Yes 40mg Take 40 mg Univers e 40 mg EC 2-17 by mouth ity o f tablet 00:00: daily. [place] [facility] pantoprazol 2018-02 Yes 40mg Take 40 mg Univers e 40 mg EC 2-17 by mouth ity o f tablet 00:00: daily. [place] [facility] pantoprazol 2018-02 Yes 40mg Take 40 mg Univers e 40 mg EC 2-17 by mouth ity o f tablet 00:00: daily. [place] [facility] pantoprazol 2018-02 Yes 40mg Take 40 mg Univers e 40 mg EC 2-17 by mouth ity o f tablet 00:00: daily. [place] [facility] pantoprazol 2018-02 Yes 40mg Take 40 mg Univers e 40 mg EC 2-17 by mouth ity o f tablet 00:00: daily. [address] pantoprazol 2018-02 Yes 40mg Take 40 mg [facility] e 40 mg EC 2-17 by mouth ity o f tablet 00:00: daily. [place] [facility] pantoprazol 2018-02 Yes 40mg Take 40 mg Univers e 40 mg EC 2-17 by mouth ity o f tablet 00:00: daily. [place] [facility] pantoprazol 2018-02 Yes 40mg Take 40 mg Univers e 40 mg EC 2-17 by mouth ity o f tablet 00:00: daily. [address] pantoprazol 2018-02 Yes 40mg Take 40 mg Univers e 40 mg EC 2-17 by mouth ity o f tablet 00:00: daily. [address] pantoprazol 2018-02 Yes 40mg Take 40 mg Univers e 40 mg EC 2-17 by mouth ity o f tablet 00:00: daily. [place] [facility] pantoprazol 2018-02 Yes 40mg Take 40 mg Univers e 40 mg EC 2-17 by mouth ity o f tablet 00:00: daily. [place] [facility] pantoprazol 2018-02 Yes 40mg Take 40 mg Univers e 40 mg EC 2-17 by mouth ity o f tablet 00:00: daily. [place] [facility] pantoprazol 2018-02 Yes 40mg Take 40 mg Univers e 40 mg EC 2-17 by mouth ity o f tablet 00:00: daily. [place] [facility] pantoprazol 2018-02 Yes 40mg Take 40 mg Univers e 40 mg EC 2-17 by mouth ity o f tablet 00:00: daily. [place] [facility] pantoprazol 2018-02 Yes 40mg Take 40 mg Univers e 40 mg EC 2-17 by mouth ity o f tablet 00:00: daily. [place] [facility] pantoprazol 2018-02 Yes 40mg Take 40 mg Univers e 40 mg EC 2-17 by mouth ity o f tablet 00:00: daily. [place] [facility] pantoprazol 2018-02 Yes 40mg Take 40 mg Univers e 40 mg EC 2-17 by mouth ity o f tablet 00:00: daily. [place] [facility] pantoprazol 2018-02 Yes 40mg Take 40 mg Univers e 40 mg EC 2-17 by mouth ity o f tablet 00:00: daily. [place] [facility] busPIRone 5 2018-02 Yes [id number] TAKE 1 [facility] mg tablet 0- 9102 TABLET BY ity o f 00:00: MOUTH TWICE A Medical DAY Branch busPIRone 5 2018-02 Yes [id number] TAKE 1 [facility] mg tablet 0- 9102 TABLET BY ity o f 00:00: MOUTH TWICE A Medical DAY Branch busPIRone 5 2018-02 Yes [id number] TAKE 1 [facility] mg tablet 0-01 9102 TABLET BY ity o f 00:00: MOUTH TWICE A Medical DAY Branch busPIRone 5 2018-02 Yes [id number] TAKE 1 [facility] mg tablet 0-01 9102 TABLET BY ity o f 00:00: MOUTH TWICE A Medical DAY Branch busPIRone 5 2018-02 Yes [id number] TAKE 1 [facility] mg tablet 0- 9102 TABLET BY ity o f 00:00: MOUTH [place] 00 TWICE A Medical DAY Branch busPIRone 5 2018-02 Yes [id number] TAKE 1 [facility] mg tablet 0- 9102 TABLET BY ity o f 00:00: MOUTH [place] 00 TWICE A Medical DAY Branch busPIRone 5 2018-02 Yes [id number] TAKE 1 [facility] mg tablet 0- 9102 TABLET BY ity o f 00:00: MOUTH [place] 00 TWICE A Medical DAY Branch busPIRone 5 2018-02 Yes [id number] TAKE 1 [facility] mg tablet 0- 9102 TABLET BY ity o f 00:00: MOUTH [place] 00 TWICE A Medical DAY Branch busPIRone 5 2018-02 Yes [id number] TAKE 1 [facility] mg tablet 0-02 TABLET BY ity o f 00:00: MOUTH 00 TWICE A Medical DAY Branch busPIRone 5 2018-02 Yes [id number] TAKE 1 [facility] mg tablet 0- 9102 TABLET BY ity o f 00:00: MOUTH 00 TWICE A Medical DAY Branch busPIRone 5 2018-02 Yes [id number] TAKE 1 [facility] mg tablet 0-02 TABLET BY ity o f 00:00: MOUTH 00 TWICE A Medical DAY Branch busPIRone 5 2018-02 Yes [id number] TAKE 1 [facility] mg tablet 0-02 TABLET BY ity o f 00:00: MOUTH 00 TWICE A Medical DAY Branch busPIRone 5 2018-02 Yes [id number] TAKE 1 [facility] mg tablet 0- 9102 TABLET BY ity o f 00:00: MOUTH 00 TWICE A Medical DAY Branch busPIRone 5 2018-02 2020- No [id number] TAKE 1 [facility] mg tablet 0-04-19 9102 TABLET BY ity of 00:00: 00:00 MOUTH [place] 00 :00 TWICE A Medical DAY Branch BUSPIRONE 5 Yes [id number] TAKE 1 [facility] mg tablet 09-0802 TABLET BY ity o f 00:00: MOUTH 00 TWICE A Medical DAY Branch butorphanol 2018- Yes [id number] 1{spray Use 1 [facility] 10 mg/mL 08-21 } [place] in ity of nasal spray 00:00: each [...] the ity of human, 100 18:55: skin. [place] unit/mL 56 Medical injection Branch insulin 0 [...] the ity of human, 100 18:55: skin. [place] unit/mL 56 Medical injection Branch insulin 0 Yes 60U inject 60 Unive rs detemir 5-14 Units ity of U-100 100 18:55: under the [place] as unit/mL 56 skin. Medical injection Branch insulin 0 Yes inject [facility] lispro, 5-14 under the ity of human, 100 18:55: skin. [place] unit/mL 56 Medical injection Branch insulin 0 Yes 60U inject 60 Unive rs detemir 5-14 Units ity of U-100 100 18:55: under the [place] as unit/mL 56 skin. Medical injection Branch insulin 0 Yes inject [facility] lispro, 5-14 under the ity of human, 100 18:55: skin. [place] unit/mL 56 Medical injection Branch insulin 0 Yes 60U inject 60 Unive rs detemir 5-14 Units ity of U-100 100 18:55: under the [place] as unit/mL 56 skin. Medical injection Branch insulin 0 Yes inject [facility] lispro, 5-14 under the ity of human, 100 18:55: skin. [place] unit/mL 56 Medical injection Branch insulin 0 Yes 60U inject 60 Unive rs detemir 5-14 Units ity of U-100 100 18:55: under the [place] as unit/mL 56 skin. Medical injection Branch insulin 0 Yes inject [facility] lispro, 5-14 under the ity of human, 100 18:55: skin. [place] unit/mL 56 Medical injection Branch pregabalin 0 Yes 300mg Take 300 Un osbaldo 300 mg 5-14 mg by ity of capsule 17:05: mouth. [address] hydrALAZINE 0 Yes 50mg Take 50 mg [facility] 50 mg 5-14 by mouth. ity of tablet 17:05: [address] losartan-hy 0 Yes Take by Uni vers drochloroth 5-14 mouth. ity of iazide 17:05: [place] [address] [facility] Medical per tablet Branch carvedilol 0 Yes 25mg Take 25 mg U nivers 12.5 mg 5-14 by mouth. ity of tablet 17:05: [address] acetaminoph 0 Yes 500mg Take 500 [...] mg by ity of capsule 17:05: mouth. [address] Branch hydrALAZINE 2019-0 Yes 50mg Take 50 mg [facility] 50 mg 5-14 by mouth. ity of tablet 17:05: [address] Branch losartan-hy 2019-0 Yes Take by [facility] vers drochloroth 5-14 mouth. ity of iazide 17:05: [place] 100-25 mg 39 Medical per tablet Branch carvedilol 2019-0 Yes 25mg Take 25 mg U nivers 12.5 mg 5-14 by mouth. ity of tablet 17:05: [address] Branch acetaminoph 2019-0 Yes 500mg Take [...] mg by ity of capsule 17:05: mouth. [address] Branch hydrALAZINE Yes 50mg Take 50 mg [facility] 50 mg 5-14 by mouth. ity of tablet 17:05: [address] Branch losartan-hy 0 Yes Take by [facility] vers drochloroth 5-14 mouth. ity of iazide 17:05: [place] 100-25 mg 39 Medical per tablet Branch carvedilol 0 Yes 25mg Take 25 mg U nivers 12.5 mg 5-14 by mouth. ity of tablet 17:05: [address] Branch acetaminoph 0 Yes 500mg Take [...] mg by ity of capsule 17:05: mouth. [address] pregabalin 0 Yes 300mg Take 300 Un osbaldo 300 mg 5-14 mg by ity of capsule 17:05: mouth. [address] Branch hydrALAZINE Yes 50mg Take 50 mg [facility] 50 mg 5-14 by mouth. ity of tablet 17:05: [address] losartan-hy 2018-0 Yes Take by Uni vers drochloroth 5-14 mouth. ity of iazide 17:05: [place] 100-25 mg 39 Medical per tablet Branch hydrALAZINE 0 Yes 50mg Take 50 mg [facility] 50 mg 5-14 by mouth. ity of tablet 17:05: [address] carvedilol Yes 25mg Take 25 mg U nivers 12.5 mg 5-14 by mouth. ity of tablet 17:05: [address] Branch acetaminoph 2019-0 Yes 500mg Take [...] drochloroth 5-14 mouth. ity of iazide 17:05: [place] 100-25 mg 39 Medical per tablet Branch pregabalin 0 Yes 300mg Take 300 Un osbaldo 300 mg 5-14 mg by ity of capsule 17:05: mouth. [address] Branch hydrALAZINE 0 Yes 50mg Take 50 mg [facility] 50 mg 5-14 by mouth. ity of tablet 17:05: [address] losartan-hy 0 Yes Take by Uni vers drochloroth 5-14 mouth. ity of iazide 17:05: [place] 100-25 mg 39 Medical per tablet Branch carvedilol 0 Yes 25mg Take 25 mg U nivers 12.5 mg 5-14 by mouth. ity of tablet 17:05: [address] acetaminoph 0 Yes 500mg Take 500 [...] mg by ity of capsule 17:05: mouth. [address] Branch hydrALAZINE 2019-0 Yes 50mg Take 50 mg [facility] 50 mg 5-14 by mouth. ity of tablet 17:05: [address] Branch losartan-hy 2018-0 Yes Take by Uni vers drochloroth 5-14 mouth. ity of iazide 17:05: [place] 100-25 mg 39 Medical per tablet Branch carvedilol 2018-0 Yes 25mg Take 25 mg U nivers 12.5 mg 5-14 by mouth. ity of tablet 17:05: [address] Branch acetaminoph 0 Yes 500mg Take [...] 5-14 by mouth. ity of tablet 17:05: [address] Branch pregabalin 2019-0 Yes 300mg Take 300 Un osbaldo 300 mg 5-14 mg by ity of capsule 17:05: mouth. [address] Branch hydrALAZINE 2019-0 Yes 50mg Take 50 mg [facility] 50 mg 5-14 by mouth. ity of tablet 17:05: [address] losartan-hy 2019-0 Yes Take by Uni vers drochloroth 5-14 mouth. ity of iazide 17:05: [place] 100-25 mg 39 Medical per tablet Branch [...] mg by ity of capsule 17:05: mouth. [place] [id number] Medical Branch hydrALAZINE 0 Yes 50mg Take 50 mg [facility] 50 mg 5-14 by mouth. ity of tablet 17:05: [address] Branch losartan-hy 0 Yes Take by [...] mg by ity of capsule 17:05: mouth. [address] Branch hydrALAZINE 0 Yes 50mg Take 50 mg [facility] 50 mg 5-14 by mouth. ity of tablet 17:05: [address] Branch losartan-hy 0 Yes Take by Uni vers drochloroth 5-14 mouth. ity of iazide 17:05: [place] 100-25 mg 39 Medical per tablet Branch carvedilol 0 Yes 25mg Take 25 mg U nivers 12.5 mg 5-14 by mouth. ity of tablet 17:05: [address] Branch acetaminoph 0 Yes 500mg Take [...] mg by ity of capsule 17:05: mouth. [address] Branch hydrALAZINE 0 Yes 50mg Take 50 mg [facility] 50 mg 5-14 by mouth. ity of tablet 17:05: [address] Branch losartan-hy 0 Yes Take by Uni vers drochloroth 5-14 mouth. ity of iazide 17:05: [place] 100-25 mg 39 Medical per tablet Branch carvedilol 0 Yes 25mg Take 25 mg U nivers 12.5 mg 5-14 by mouth. ity of tablet 17:05: [address] Branch acetaminoph [id number] Yes 500mg Take [...] mg by ity of capsule 17:05: mouth. [address] Branch hydrALAZINE 2018-0 Yes 50mg Take 50 mg [facility] 50 mg 5-14 by mouth. ity of tablet 17:05: [address] Branch losartan-hy 2018-0 Yes Take by Uni vers drochloroth 5-14 mouth. ity of iazide 17:05: [place] 100-25 mg 39 Medical per tablet Branch carvedilol 0 Yes 25mg Take 25 mg U nivers 12.5 mg 5-14 by mouth. ity of tablet 17:05: [address] Branch acetaminoph 2018-0 Yes 500mg Take [...] mg by ity of capsule 17:05: mouth. [address] Branch hydrALAZINE 2019-0 Yes 50mg Take 50 mg [facility] 50 mg 5-14 by mouth. ity of tablet 17:05: [address] Branch losartan-hy Yes Take by Uni vers drochloroth 5-14 mouth. ity of iazide 17:05: [place] 100-25 mg 39 Medical per tablet Branch carvedilol Yes 25mg Take 25 mg U nivers 12.5 mg 5-14 by mouth. ity of tablet 17:05: [place] [address] Medical Branch acetaminoph Yes 500mg Take 500 [...] for Chest pain. busPIRone 5 2019- No [id number] 5mg Take 1 [facility] mg tablet 5-14 09-08 9102 tablet by ity of 00:00: 00:00 mouth 2 [place] 00 :00 (two) Medical times Branch daily. methIMAzole Yes 10mg Take 10 mg [facility] 10 mg 4-24 by mouth ity of tablet 00:00: daily. [address] methIMAzole Yes 10mg Take 10 mg [facility] 10 mg 4-24 by mouth ity of tablet 00:00: daily. [address] methIMAzole Yes 10mg Take 10 mg [facility] 10 mg 4-24 by mouth ity of tablet 00:00: daily. [address] methIMAzole Yes 10mg Take 10 mg [facility] 10 mg 4-24 by mouth ity of tablet 00:00: daily. [address] methIMAzole Yes 10mg Take 10 mg [facility] 10 mg 4-24 by mouth ity of tablet 00:00: daily. [address] methIMAzole 2019-0 Yes 10mg Take 10 mg [facility] 10 mg 4-24 by mouth ity of tablet 00:00: daily. [facility] methIMAzole 2019-0 Yes 10mg Take 10 mg [facility] 10 mg 4-24 by mouth ity of tablet 00:00: daily. [place] [facility] methIMAzole 2019-0 Yes 10mg Take 10 mg [facility] 10 mg 4-24 by mouth ity of tablet 00:00: daily. [facility] methIMAzole 2019-0 Yes 10mg Take 10 mg [facility] 10 mg 4-24 by mouth ity of tablet 00:00: daily. [place] [facility] methIMAzole 2019-0 Yes 10mg Take 10 mg [facility] 10 mg 4-24 by mouth ity of tablet 00:00: daily. [place] [facility] methIMAzole 2019-0 Yes 10mg Take 10 mg [facility] 10 mg 4-24 by mouth ity of tablet 00:00: daily. [place] [facility] methIMAzole 2019-0 Yes 10mg Take 10 mg [facility] 10 mg 4-24 by mouth ity of tablet 00:00: daily. [place] [facility] methIMAzole 2019-0 Yes 10mg Take 10 mg [facility] 10 mg 4-24 by mouth ity of tablet 00:00: daily. [place] [facility] methIMAzole 2019-0 Yes 10mg Take 10 mg [facility] 10 mg 4-24 by mouth ity of tablet 00:00: daily. [place] [facility] methIMAzole 2019-0 Yes 10mg Take 10 mg [facility] 10 mg 4-24 by mouth ity of tablet 00:00: daily. [place] [facility] methIMAzole 2019-0 Yes 10mg Take 10 mg [facility] 10 mg 4-24 by mouth ity of tablet 00:00: daily. [place] [facility] methIMAzole 2019-0 Yes 10mg Take 10 mg [facility] 10 mg 4-24 by mouth ity of tablet 00:00: daily. [place] [facility] methIMAzole 2019-0 Yes 10mg Take 10 mg [facility] 10 mg 4-24 by mouth ity of tablet 00:00: daily. [place] [facility] methIMAzole 2019-0 Yes 10mg Take 10 mg [facility] 10 mg 4-24 by mouth ity of tablet 00:00: daily. [place] [facility] methIMAzole 2019-0 Yes 10mg Take 10 mg [facility] 10 mg 4-24 by mouth ity of tablet 00:00: daily. [facility] methIMAzole 2019-0 Yes 10mg Take 10 mg [facility] 10 mg 4-24 by mouth ity of tablet 00:00: daily. [place] [facility] methIMAzole 2019-0 Yes 10mg Take 10 mg [facility] 10 mg 4-24 by mouth ity of tablet 00:00: daily. [place] [facility] methIMAzole 2018-0 Yes 10mg Take 10 mg [facility] 10 mg 4-24 by mouth ity of tablet 00:00: daily. [place] [facility] methIMAzole 2018-0 Yes 10mg Take 10 mg [facility] 10 mg 4-24 by mouth ity of tablet 00:00: daily. [place] [facility] methIMAzole 2018-0 Yes 10mg Take 10 mg [facility] 10 mg 4-24 by mouth ity of tablet 00:00: daily. [place] [facility] methIMAzole 2018-0 Yes 10mg Take 10 mg [facility] 10 mg 4-24 by mouth ity of tablet 00:00: daily. [place] [facility] methIMAzole 2018-0 Yes 10mg Take 10 mg [facility] 10 mg 4-24 by mouth ity of tablet 00:00: daily. [place] [facility] methIMAzole 2018-0 Yes 10mg Take 10 mg [facility] 10 mg 4-24 by mouth ity of tablet 00:00: daily. [place] [facility] methIMAzole 2018-0 Yes 10mg Take 10 mg [facility] 10 mg 4-24 by mouth ity of tablet 00:00: daily. [place] [facility] methIMAzole 2018-0 Yes 10mg Take 10 mg [facility] 10 mg 4-24 by mouth ity of tablet 00:00: daily. [place] [facility] methIMAzole 2019-0 Yes 10mg Take 10 mg [facility] 10 mg 4-24 by mouth ity of tablet 00:00: daily. [place] [facility] methIMAzole 2019-0 Yes 10mg Take 10 mg [facility] 10 mg 4-24 by mouth ity of tablet 00:00: daily. [place] [facility] methIMAzole 2018-0 Yes 10mg Take 10 mg [facility] 10 mg 4-24 by mouth ity of tablet 00:00: daily. [place] [facility] methIMAzole 2018-0 Yes 10mg Take 10 mg [facility] 10 mg 4-24 by mouth ity of tablet 00:00: daily. [facility] methIMAzole 2019-0 Yes 10mg Take 10 mg [facility] 10 mg 4-24 by mouth ity of tablet 00:00: daily. [place] [facility] methIMAzole 2019-0 Yes 10mg Take 10 mg [facility] 10 mg 4-24 by mouth ity of tablet 00:00: daily. [place] [facility] methIMAzole 2018-0 Yes 10mg Take 10 mg [facility] 10 mg 4-24 by mouth ity of tablet 00:00: daily. [place] [facility] methIMAzole 2018-0 Yes 10mg Take 10 mg [facility] 10 mg 4-24 by mouth ity of tablet 00:00: daily. [place] [facility] methIMAzole 2019-0 Yes 10mg Take 10 mg [facility] 10 mg 4-24 by mouth ity of tablet 00:00: daily. [place] [facility] methIMAzole 2018-0 Yes 10mg Take 10 mg [facility] 10 mg 4-24 by mouth ity of tablet 00:00: daily. [place] [facility] methIMAzole 2018-0 Yes 10mg Take 10 mg [facility] 10 mg 4-24 by mouth ity of tablet 00:00: daily. [place] [facility] methIMAzole 2019-0 Yes 10mg Take 10 mg [facility] 10 mg 4-24 by mouth ity of tablet 00:00: daily. [place] [facility] methIMAzole 2019-0 Yes 10mg Take 10 mg [facility] 10 mg 4-24 by mouth ity of tablet 00:00: daily. [place] [facility] methIMAzole 2018-0 Yes 10mg Take 10 mg [facility] 10 mg 4-24 by mouth ity of tablet 00:00: daily. [place] [facility] methIMAzole 2019-0 Yes 10mg Take 10 mg [facility] 10 mg 4-24 by mouth ity of tablet 00:00: daily. [place] [facility] methIMAzole 2019-0 Yes 10mg Take 10 mg [facility] 10 mg 4-24 by mouth ity of tablet 00:00: daily. [place] [facility] methIMAzole 2019-0 Yes 10mg Take 10 mg [facility] 10 mg 4-24 by mouth ity of tablet 00:00: daily. [place] [facility] methIMAzole 2018-0 Yes 10mg Take 10 mg [facility] 10 mg 4-24 by mouth ity of tablet 00:00: daily. [facility] methIMAzole 2019-0 Yes 10mg Take 10 mg [facility] 10 mg 4-24 by mouth ity of tablet 00:00: daily. [facility] methIMAzole 2019-0 Yes 10mg Take 10 mg [facility] 10 mg 4-24 by mouth ity of tablet 00:00: daily. [facility] methIMAzole 2019-0 Yes 10mg Take 10 mg [facility] 10 mg 4-24 by mouth ity of tablet 00:00: daily. [facility] methIMAzole 2019-0 Yes 10mg Take 10 mg [facility] 10 mg 4-24 by mouth ity of tablet 00:00: daily. [place] [facility] methIMAzole 2019-0 Yes 10mg Take 10 mg [facility] 10 mg 4-24 by mouth ity of tablet 00:00: daily. [place] [facility] methIMAzole 2018-0 Yes 10mg Take 10 mg [facility] 10 mg 4-24 by mouth ity of tablet 00:00: daily. [place] [facility] methIMAzole 2019-0 Yes 10mg Take 10 mg [facility] 10 mg 4-24 by mouth ity of tablet 00:00: daily. [place] [facility] methIMAzole 2019-0 Yes 10mg Take 10 mg [facility] 10 mg 4-24 by mouth ity of tablet 00:00: daily. [place] [facility] methIMAzole 2019-0 Yes 10mg Take 10 mg [facility] 10 mg 4-24 by mouth ity of tablet 00:00: daily. [place] [facility] methIMAzole 2019-0 Yes 10mg Take 10 mg [facility] 10 mg 4-24 by mouth ity of tablet 00:00: daily. [place] [facility] methIMAzole 2019-0 Yes 10mg Take 10 mg [facility] 10 mg 4-24 by mouth ity of tablet 00:00: daily. [place] [facility] methIMAzole 2019-0 Yes 10mg Take 10 mg [facility] 10 mg 4-24 by mouth ity of tablet 00:00: daily. [place] [facility] methIMAzole 2019-0 Yes 10mg Take 10 mg [facility] 10 mg 4-24 by mouth ity of tablet 00:00: daily. [place] [facility] methIMAzole 2019-0 Yes 10mg Take 10 mg [...] BY ity o f 00:00: 2 TIMES [place] DAY Medical Branch doxazosin 2 Yes TAKE 0.5 Un osbaldo mg tablet 4-22 TABLET BY ity o f 00:00: 2 TIMES [place] DAY Medical Branch doxazosin 2 Yes TAKE 0.5 Un [place] mg tablet 4-22 TABLET BY ity o f 00:00: 2 TIMES [place] DAY Medical Branch doxazosin 2 Yes TAKE 0.5 Un [place] mg tablet 4-22 TABLET BY ity o f 00:00: 2 TIMES [place] DAY Medical Branch doxazosin 2 Yes TAKE 0.5 Un [place] mg tablet 4-22 TABLET BY ity o f 00:00: 2 TIMES [place] DAY Medical Branch doxazosin 2 Yes TAKE 0.5 Un [place] mg tablet 4-22 TABLET BY ity o f 00:00: 2 TIMES [place] DAY Medical Branch doxazosin 2 Yes TAKE 0.5 Un [place] mg tablet 4-22 TABLET BY ity o f 00:00: 2 TIMES [place] DAY Medical Branch doxazosin 2 Yes TAKE 0.5 Un [place] mg tablet 4-22 TABLET BY ity o f 00:00: 2 TIMES [place] 00 EVERY DAY Medical Branch doxazosin 2 2019-0 Yes TAKE 0.5 Un [place] mg tablet 4-22 TABLET BY ity o f 00:00: 2 TIMES [place] EVERY DAY Medical Branch doxazosin 2 2019-0 Yes TAKE 0.5 Un [place] mg tablet 4-22 TABLET BY ity o f 00:00: 2 TIMES [place] EVERY DAY Medical Branch doxazosin 2 2019-0 Yes TAKE 0.5 Un [place] mg tablet 4-22 TABLET BY ity o f 00:00: 2 TIMES [place] EVERY DAY Medical Branch doxazosin 2 2019-0 Yes TAKE 0.5 Un [place] mg tablet 4-22 TABLET BY ity o f 00:00: 2 TIMES [place] EVERY DAY Medical Branch doxazosin 2 2019-0 Yes TAKE 0.5 Un [place] mg tablet 4-22 TABLET BY ity o f 00:00: 2 TIMES [place] EVERY DAY Medical Branch doxazosin 2 2019-0 Yes TAKE 0.5 Un [place] mg tablet 4-22 TABLET BY ity o f 00:00: 2 TIMES [place] EVERY DAY Medical Branch doxazosin 2 2019-0 2020- No TAKE 0.5 U nivers mg tablet 4-22 03-06 TABLET BY ity of 00:00: 00:00 2 TIMES [place] 00 :00 EVERY DAY Medical Branch hydrALAZINE [...] 4-16 TABLET BY ity of tablet 00:00: [facility] THREE Medical TIMES A Branch DAY WITH FOOD hydrALAZINE 2019-0 Yes TAKE 1 Univ ers 100 mg 4-16 TABLET BY ity of tablet 00:00: [facility] THREE Medical TIMES A Branch DAY WITH FOOD hydrALAZINE 2019-0 Yes TAKE 1 [facility] ers 100 mg 4-16 TABLET BY ity of tablet 00:00: MOUTH THREE Medical TIMES A Branch DAY WITH FOOD hydrALAZINE 2019-0 Yes TAKE 1 [facility] ers 100 mg 4-16 TABLET BY ity of tablet 00:00: [facility] THREE Medical TIMES A Branch DAY WITH FOOD hydrALAZINE 2019-0 Yes TAKE 1 [facility] ers 100 mg 4-16 TABLET BY ity of tablet 00:00: [facility] THREE Medical TIMES A Branch DAY WITH FOOD hydrALAZINE 2019-0 Yes TAKE 1 [facility] ers 100 mg 4-16 TABLET BY ity of tablet 00:00: [facility] THREE Medical TIMES A Branch DAY WITH FOOD hydrALAZINE 2019-0 Yes TAKE 1 [facility] ers 100 mg 4-16 TABLET BY ity of tablet 00:00: [facility] THREE Medical TIMES A Branch DAY WITH FOOD hydrALAZINE 2019-0 Yes TAKE 1 Univ ers 100 mg 4-16 TABLET BY ity of tablet 00:00: [facility] THREE Medical TIMES A Branch DAY WITH FOOD hydrALAZINE 2019-0 2020- No TAKE 1 [facility] vers 100 mg 4-16 03-06 TABLET BY ity of tablet 00:00: 00:00 MOUTH [place] 00 :00 THREE Medical TIMES A Branch DAY WITH FOOD spironolact 2019-0 Yes 25mg Take 25 mg [facility] one 25 mg 3-22 by mouth ity of tablet 00:00: daily. [place] Medical Branch spironolact 2019-0 Yes 25mg Take 25 mg [facility] one 25 mg 3-22 by mouth ity of tablet 00:00: daily. [place] [facility] Branch spironolact 2019-0 Yes 25mg Take 25 mg [facility] one 25 mg 3-22 by mouth ity of tablet 00:00: daily. [place] [facility] Branch spironolact 2019-0 Yes 25mg Take 25 mg [facility] one 25 mg 3-22 by mouth ity of tablet 00:00: daily. [facility] spironolact 2018-0 Yes 25mg Take 25 mg [facility] one 25 mg 3-22 by mouth ity of tablet 00:00: daily. [facility] spironolact 0 Yes 25mg Take 25 mg [facility] one 25 mg 3-22 by mouth ity of tablet 00:00: daily. [facility] spironolact 0 Yes 25mg Take 25 mg [facility] one 25 mg 3-22 by mouth ity of tablet 00:00: daily. [facility] spironolact 0 Yes 25mg Take 25 mg [facility] one 25 mg 3-22 by mouth ity of tablet 00:00: daily. [facility] spironolact Yes 25mg Take 25 mg [facility] one 25 mg 3-22 by mouth ity of tablet 00:00: daily. [facility] spironolact Yes 25mg Take 25 mg [facility] one 25 mg 3-22 by mouth ity of tablet 00:00: daily. [facility] spironolact Yes 25mg Take 25 mg [facility] one 25 mg 3-22 by mouth ity of tablet 00:00: daily. [facility] spironolact 0 Yes 25mg Take 25 mg [facility] one 25 mg 3-22 by mouth ity of tablet 00:00: daily. [facility] spironolact 0 Yes 25mg Take 25 mg [facility] one 25 mg 3-22 by mouth ity of tablet 00:00: daily. [facility] spironolact Yes 25mg Take 25 mg [facility] one 25 mg 3-22 by mouth ity of tablet 00:00: daily. [facility] spironolact 2019-0 2020- No 25mg Take 25 mg [facility] one 25 mg 3-22 03-06 by mouth ity o f tablet 00:00: 00:00 daily. [place] 00 : [facility] ALPRAZolam 2017-0 Yes .5mg Q.5D Take 0.5 Met hodi [...] needed (for Headache). clonIDINE 2018-0 Yes .2mg [id number] Take 0.2 [facility] HCl - [id number] mg by st (CATAPRES) 14:23: 3D mouth 3 [facility] 0.2 MG 37 (three) l tablet times a day. hydrALAZINE 2018-0 Yes 50mg Q.[id number] Take 50 mg [facility] (APRESOLINE - [id number] by mouth 3 st ) 50 MG 14:23: 3D (three) [facility]osp[facility] tablet 37 times a l day. insulin 2018-0 Yes 60U Q.5D Inject 60 Metho di detemir 4-[address] U-100 14:23: under the [facility]osp[facility] (LEVEMIR) 37 skin 2 l 100 unit/mL (two) injection times a day. losartan-hy 2017-0 Yes 1{tbl} QD Take 1 [facility] drochloroth 4- tablet by st iazide 14:23: mouth [facility]osp[facility] (HYZAAR) 37 daily. l 100-25 mg per tablet mirtazapine 2018-0 Yes 15mg QD Take 15 mg [facility] (REMERON) -[address] 15 MG 14:23: nightly. [...] tablet 37 nightly. l insulin 2018-0 Yes [id number] Inject [facility] lispro 4- [id number] under the st (HumaLOG) 14:23: 3D skin [...] needed (for Headache). clonIDINE 2018-0 Yes .2mg Q.[id number] Take 0.2 [facility] HCl 4-[id number] (CATAPRES) 14:23: 3D mouth 3 [facility] 0.2 MG 37 (three) l tablet times a day. hydrALAZINE 2017-0 Yes 50mg Q.[id number] Take 50 mg [facility] (APRESOLINE 4-01 [id number] [address] mouth [address] ) 50 MG [...] mouth [facility]ospita tablet 37 nightly. l insulin 2017-0 Yes [id number] Inject Me thodi lispro 4- [id number] under the st (HumaLOG) 14:23: 3D skin [...] needed (for Headache). clonIDINE 2017- Yes .2mg Q.[id number] Take 0.2 [facility] HCl - [id number] mg by st (CATAPRES) 14:23: 3D mouth 3 Hosp [facility]ika 0.2 MG 37 (three) l tablet times a day. hydrALAZINE Yes 50mg Q.[id number] Take 50 mg [facility] (APRESOLINE -01 [id number] by mouth 3 st ) 50 MG [...] tablet 37 nightly. l insulin 2018-0 Yes Q.[id number] Inject Me [facility]odi lispro 4- [id number] under the st (HumaLOG) 14:23: 3D skin [...] needed (for Headache). clonIDINE 2018-0 Yes .2mg Q.[id number] Take 0.2 [facility] HCl 4-[id number] (CATAPRES) 14:23: 3D mouth 3 [facility] 0.2 MG 37 (three) l tablet times a day. hydrALAZINE 2017-0 Yes 50mg Q.[id number] Take 50 mg [facility] (APRESOLINE 4-01 [id number] by mouth 3 st ) 50 MG [...] tablet 37 nightly. l insulin 2018-0 Yes Q.[id number] Inject Me thodi lispro 4- [id number] under the st (HumaLOG) 14:23: 3D skin [...] needed (for Headache). clonIDINE 2018-0 Yes .2mg Q.[id number] Take 0.2 [facility] HCl 4-[id number] by [address] (CATAPRES) 14:23: 3D mouth 3 [facility] 0.2 MG 37 (three) l tablet times a day. hydrALAZINE 2018-0 Yes 50mg Q.[id number] Take 50 mg [facility] (APRESOLINE 4- [id number] by mouth 3 st ) 50 MG [...] tablet 37 nightly. l insulin 2018-0 Yes Q.[id number] Inject Me thodi lispro 4-[id number] (HumaLOG) 14:23: 3D skin [...] (eight) hours as needed (for Headache). clonIDINE 2017-0 Yes .2mg Q.[id number] Take 0.2 [facility] HCl 4-[id number] (CATAPRES) 14:23: 3D mouth 3 [facility] 0.2 MG 37 (three) l tablet times a day. hydrALAZINE 2017-0 Yes 50mg Q.[id number] Take 50 mg [facility] (APRESOLINE 4-01 [id number] by mouth 3 st ) 50 MG [...] mouth Hospita tablet 37 nightly. l insulin 2017-0 Yes Q.[id number] Inject Me thodi lispro 4-[id number] (HumaLOG) 14:23: 3D skin 3 Hospit a 100 unit/mL 37 (three) l injection times a day before meals. (PER SLIDING SCALE) carvedilol 2017-0 Yes 12.5mg Q.5D Take 12.5 [facility] (COREG) 4-[address] 12.5 MG 14:23: mouth 2 Hospita tablet 37 (two) l times a day. Immunizations Ordered Filled Immunization Date Status Comments [facility] e Immunization Name Name SARS-COV-2 COVID-19 2020-05-12 Completed Unive rsity of MODERNA VACCINE 00:00:00 [facility] SARS-COV-2 COVID-19 2020-05-12 Completed Unive rsity of MODERNA VACCINE 00:00:00 [facility] SARS-COV-2 COVID-19 2020-05-12 Completed Unive rsity of MODERNA VACCINE 00:00:00 [facility] SARS-COV-2 COVID-19 2020-04-14 Completed Unive rsity of MODERNA VACCINE 00:00:00 [facility] SARS-COV-2 COVID-19 2020-04-14 Completed Unive rsity of MODERNA VACCINE 00:00:00 [facility] SARS-COV-2 COVID-19 2020-04-14 Completed Unive rsity of MODERNA VACCINE 00:00:00 [facility] SARS-COV-2 COVID-19 2020-04-14 Completed Unive rsity of MODERNA VACCINE 00:00:00 [facility] SARS-COV-2 COVID-19 2020-04-14 Completed [facility]ive rs[facility] of MODERNA VACCINE 00:00:00 [facility] SARS-COV-2 COVID-19 2020-04-14 Completed Unive rsity of MODERNA VACCINE 00:00:00 [facility] SARS-COV-2 COVID-19 2020-04-14 Completed Unive rsity of MODERNA VACCINE 00:00:00 [place] [facility] SARS-COV-2 COVID-19 2020-04-14 Completed Unive rsity of MODERNA VACCINE 00:00:[address] [facility] SARS-COV-2 COVID-19 2020-04-14 Completed Unive rsity of MODERNA VACCINE 00:00:[address] [facility] ical [facility] SARS-COV-2 COVID-19 2020-04-14 Completed Unive rsity of MODERNA VACCINE 00:00:[address] [facility] SARS-COV-2 COVID-19 2020-04-14 Completed Unive rsity of MODERNA VACCINE 00:00:[address] [facility] SARS-COV-2 COVID-19 2020-04-14 Completed Unive rsity of MODERNA VACCINE 00:00:[address] [facility] SARS-COV-2 COVID-19 2020-04-14 Completed Unive rsity of MODERNA VACCINE 00:00:[address] [facility] SARS-COV-2 COVID-19 2020-04-14 Completed Unive rsity of MODERNA VACCINE 00:00:[address] [facility] ical [facility] SARS-COV-2 COVID-19 2020-04-14 Completed Unive rsity of MODERNA VACCINE 00:00:[address] [facility] SARS-COV-2 COVID-19 2020-04-14 Completed Unive rsity of MODERNA VACCINE 00:00:[address] [facility] ical [facility] SARS-COV-2 COVID-19 2020-04-14 Completed Unive rsity of MODERNA VACCINE 00:00:00 [facility] Vital Signs Vital Name Observation Time Observation Value Comments Source HEIGHT 2022-02-19 23:00:00 165.1 cm WEIGHT 2022-02-19 23:00:00 99.8 kg HEIGHT 2022-02-19 23:00:00 165.1 cm WEIGHT 2022-02-19 23:00:00 99.8 kg HEIGHT 2022-02-19 23:00:00 165.1 cm WEIGHT 2022-02-19 23:00:00 99.8 kg Body height 2019-04-20 15:34:00 165.1 cm [facility] Body weight 2019-04-20 15:34:00 104.327 kg [facility] BMI 2019-04-20 15:34:00 38.27 kg/m2 Universi ty [facility] Systolic blood 2019-03-23 16:31:00 173 mm[Hg] Univer sity of pressure [facility] Diastolic blood 2019-03-23 16:31:00 90 mm[Hg] Unive rsity of [facility] Heart rate 2019-03-23 16:31:00 64 /min Universi ty [facility] Body temperature 2019-03-23 16:31:00 36.72 [facility] Respiratory rate 2019-03-23 16:31:00 18 /min [facility] Body height 2019-03-23 16:31:00 165.1 cm Universi ty [facility] Body weight 2019-03-23 16:31:00 97.24 kg Universi ty [facility] BMI 2019-03-23 16:31:00 35.67 kg/m2 Universi [facility] Systolic blood 2022-02-22 12:00:00 158 mm[Hg] [facility] Diastolic blood 2022-02-22 12:00:00 82 mm[Hg] [facility] S [facility] Heart rate 2022-02-22 12:00:00 75 /min [facility] Body temperature 2022-02-22 12:00:00 36.44 Bailey [facility] Respiratory rate 2022-02-22 12:00:00 21 /min [facility] Oxygen saturation in 2022-02-22 12:00:00 98 /min [facility] Arterial blood by Medical Ce nter Pulse oximetry Body height 2022-02-19 23:00:00 165.1 cm [facility] Body weight 2022-02-19 23:00:00 99.8 kg [facility] BMI 2022-02-19 23:00:00 36.61 kg/m2 [facility] Procedures Procedure Date / Time Performing Clinician Source Performed POCT-GLUCOSE METER 2022-02-22 11:27:[address] [facility] POCT-GLUCOSE METER 2022-02-22 05:45:[address] [facility] BASIC METABOLIC PANEL 2022-02-22 04:19:00 Yudy Olvera [facility] CBC W/PLT COUNT & AUTO 2022-02-22 04:19:00 Yudy Olvera [facility] DIFFERENTIAL [facility] CBC W/PLT COUNT & AUTO 2022-02-22 04:19:00 Yudy Olvera [facility] DIFFERENTIAL [facility] POCT-GLUCOSE METER 2022-02-21 20:05:00 [facility] 2022-02-21 17:00:00 [facility] VENOUS DOPPLER LEGS 2022-02-21 14:23:00 Gulshan Holly [facility] POCT-GLUCOSE METER 2022-02-21 11:57:00 [facility]-GLUCOSE METER 2022-02-21 05:32:[address] [facility] BASIC METABOLIC PANEL 2022-02-21 05:24:00 Yudy Olvera [facility] CBC W/PLT COUNT & AUTO 2022-02-21 05:24:00 Yudy Olvera [facility] DIFFERENTIAL [facility] CBC W/PLT COUNT & AUTO 2022-02-21 05:24:00 Yudy Olvera [facility] DIFFERENTIAL [facility] POCT-GLUCOSE METER 2022-02-21 00:31:00 [facility]-GLUCOSE METER 2022-02-20 16:55:00 [facility] HEMOGLOBIN AND HEMATOCRIT 2022-02-20 12:20:00 herminia [facility] POCT-GLUCOSE METER 2022-02-20 11:20:00 [facility] HEMOGLOBIN AND HEMATOCRIT 2022-02-20 05:45:00 herminia [facility] POCT-GLUCOSE METER 2022-02-20 05:30:00 [facility], MANUAL 2022-02-20 02:56:00 Nomi Henriquez [facility] XR CHEST 1 VIEW PORTABLE 2022-02-20 00:48:00 herminia [facility] POCT-GLUCOSE METER 2022-02-19 23:33:00 Olvera [facility] CBC W/PLT COUNT & AUTO 2022-02-19 23:28:00 herminia [facility] DIFFERENTIAL [place] BASIC METABOLIC PANEL 2022-02-19 23:28:00 [facility] B-TYPE NATRIURETIC FACTOR 2022-02-19 23:28:00 [facility] (BNP) [place] D-DIMER 2022-02-19 23:28:00 [facility] TYPE AND SCREEN, 2022-02-19 23:28:00 [facility] AUTOMATED Center CBC W/PLT COUNT & AUTO 2022-02-19 23:28:00 [facility] DIFFERENTIAL Center BLOOD GAS, ARTERIAL 2022-02-19 23:13:00 [facility] [id number] 2021-05-24 00:00:00 DIAMANTE [facility] MEDICATION CORRESPONDENCE 2020-01-21 06:01:00 Doctor Unassigned, [place] [facility] Plan of Care Planned Activity Planned Date Details Comments Source Future Scheduled 2023-02-20 Tobacco Cessation [facility] Test 00:00:00 [facility] (12+) [code = Tobacco Cessation Counseling and Screening (12+)] Future Scheduled 2023-02-[address] [facility] Test 00:00:00 [facility] Screening (12+) [code = Tobacco Cessation Counseling and Screening (12+)] Future Scheduled 2023-02-[address] [facility] Test 00:00:00 [facility] Screening (12+) [code = Tobacco Cessation Counseling and Screening (12+)] Future Scheduled 2023-02-[address] [facility] Test 00:00:00 [facility] Screening (12+) [code = Tobacco Cessation Counseling and Screening (12+)] Future Scheduled 2022-10-[address] [facility] Test 00:00:00 (Season Ended) [code = [facility] INFLUENZA VACCINE (Season Ended)] Future Scheduled 2022-05-20 COVID-19 VACCINE (#1) [facility] Test 22:09:50 [code = COVID-19 VACCINE (#1)] Future Scheduled 2022-05-20 BREAST CANCER [facility] Test 22:09:50 SCREENING [code = BREAST CANCER SCREENING] Future Scheduled 2022-05-20 COLONOSCOPY SCREENING [facility] Test 22:09:50 [code = COLONOSCOPY SCREENING] Future Scheduled 2022-05-20 SHINGLES VACCINES ([address] [facility] Test 22:09:50 of 2) [code = SHINGLES VACCINES (1 of 2)] Future Scheduled 2022-05-20 65+ PNEUMOCOCCAL [facility] Test 22:09:50 VACCINE (1 - PCV) [code = 65+ PNEUMOCOCCAL VACCINE (1 - PCV)] Future Scheduled 2022-05-20 INFLUENZA VACCINE [facility] Test 22:09:50 [code = INFLUENZA VACCINE] Future Scheduled 2022-04-15 INFLUENZA VACCINE [facility] Test 08:46:22 [code = INFLUENZA VACCINE] Future Scheduled 2022-04-15 COVID-19 VACCINE (#1) [facility] Test 08:46:22 [code = COVID-19 VACCINE (#1)] Future Scheduled 2022-04-15 BREAST CANCER [facility] Test 08:46:22 SCREENING [code = BREAST CANCER SCREENING] Future Scheduled 2022-04-15 COLONOSCOPY SCREENING [facility] Test 08:46:22 [code = COLONOSCOPY SCREENING] Future Scheduled 2022-04-15 SHINGLES VACCINES ([address] [facility] Test 08:46:22 of 2) [code = SHINGLES VACCINES (1 of 2)] Future Scheduled 2022-04-15 65+ PNEUMOCOCCAL [facility] Test 08:46:22 VACCINE (1 - PCV) [code = 65+ PNEUMOCOCCAL VACCINE (1 - PCV)] Future Scheduled 2022-03-23 COVID-19 VACCINE (#1) [facility] Test 11:27:44 [code = COVID-19 VACCINE (#1)] Future Scheduled 2022-03-23 BREAST CANCER [facility] Test 11:27:44 SCREENING [code = BREAST CANCER SCREENING] Future Scheduled 2022-03-23 COLONOSCOPY SCREENING [facility] Test 11:27:44 [code = COLONOSCOPY SCREENING] Future Scheduled 2022-03-23 SHINGLES VACCINES ([address] [facility] Test 11:27:44 of 2) [code = SHINGLES VACCINES (1 of 2)] Future Scheduled 2022-03-23 65+ PNEUMOCOCCAL Methodi [facility] Test 11:27:44 VACCINE (1 - PCV) [code = 65+ PNEUMOCOCCAL VACCINE (1 - PCV)] Future Scheduled 2022-03-23 INFLUENZA VACCINE [facility] Test 11:27:44 [code = INFLUENZA VACCINE] Future Scheduled 2022-02-26 COVID-19 VACCINE (#1) [facility] Test 13:41:51 [code = COVID-19 VACCINE (#1)] Future Scheduled 2022-02-26 BREAST CANCER [facility] Test 13:41:51 SCREENING [code = BREAST CANCER SCREENING] Future Scheduled 2022-02-26 COLONOSCOPY SCREENING [facility] Test 13:41:51 [code = COLONOSCOPY SCREENING] Future Scheduled 2022-02-26 SHINGLES VACCINES ([address] [facility] Test 13:41:51 of 2) [code = SHINGLES VACCINES (1 of 2)] Future Scheduled 2022-02-26 65+ PNEUMOCOCCAL [facility] Test 13:41:51 VACCINE (1 - PCV) [code = 65+ PNEUMOCOCCAL VACCINE (1 - PCV)] Future Scheduled 2022-02-26 INFLUENZA VACCINE [facility] Test 13:41:51 [code = INFLUENZA VACCINE] [...] SCREENING] Future Scheduled 2022-01-28 COVID-19 VACCINE (#1) [facility] Test 15:34:49 [code = COVID-19 VACCINE (#1)] Future Scheduled 2022-01-28 BREAST CANCER [facility] Test 15:34:49 SCREENING [code = BREAST CANCER SCREENING] Future Scheduled 2022-01-28 COLONOSCOPY SCREENING [facility] Test 15:34:49 [code = COLONOSCOPY SCREENING] Future Scheduled 2022-01-28 SHINGLES VACCINES (1 Met [facility] Test 15:34:49 of 2) [code = SHINGLES VACCINES (1 of 2)] Future Scheduled 2022-01-28 65+ PNEUMOCOCCAL [facility] Test 15:34:49 VACCINE (1 - PCV) [code = 65+ PNEUMOCOCCAL VACCINE (1 - PCV)] Future Scheduled 2022-01-28 INFLUENZA VACCINE Method [facility] Test 15:34:49 [code = INFLUENZA VACCINE] Future Scheduled 2021-10-15 HEPATITIS B VACCINES Met [facility] Test 06:27:31 (1 of 3 - 3-dose series) [code = HEPATITIS B VACCINES (1 of 3 - 3-dose series)] Future Scheduled 2021-10-15 COVID-19 VACCINE (#1) [facility] Test 06:27:31 [code = COVID-19 VACCINE (#1)] Future Scheduled 2021-10-15 BREAST CANCER [facility] Test 06:27:31 SCREENING [code = BREAST CANCER SCREENING] Future Scheduled 2021-10-15 COLONOSCOPY SCREENING [facility] Test 06:27:31 [code = COLONOSCOPY SCREENING] Future Scheduled 2021-10-15 SHINGLES VACCINES ([facility] 06:27:31 of 2) [code = SHINGLES VACCINES (1 of 2)] Future Scheduled 2021-10-15 65+ PNEUMOCOCCAL [facility] Test 06:27:31 VACCINE (1 - PCV) [code = 65+ PNEUMOCOCCAL VACCINE (1 - PCV)] Future Scheduled 2021-10-15 INFLUENZA VACCINE [facility] Test 06:27:31 [code = INFLUENZA VACCINE] Future Scheduled 2021-10-15 Medicare IPPE (WELCOME C [...] - Booster for Moderna series)] Future Scheduled 2020-07-07 COVID-19 VACCINE (3 - [facility] [...] [facility] Center breast (procedure) [code = 234507909] Future Scheduled [address] [facility] Test 00:00:00 (combo) [code = CT Medical C enter Colonography (combo)] Future Scheduled [address] [facility] 00:[facility]:00 malignant neoplasm of Medica l Center colon (procedure) [code = 629230709] Future Scheduled [address] [facility] Test 00:00:00 malignant neoplasm of [facility]ica [facility] Center colon (procedure) [code = 539157602] Future Scheduled 1951 DXA SCAN [code = DXA [facility] Test 00:00:00 SCAN] [facility] Future Scheduled [address] [facility] Test 00:00:00 malignant neoplasm of [facility] Center colon (procedure) [code = 315548830] Future Scheduled [address] [facility] Test 00:00:00 malignant neoplasm of [facility] Center colon (procedure) [code = 714931757] Future Scheduled 1951 Sigmoidoscopy [facility]] [facility] r Future Scheduled [address] [facility] Test 00:00:00 malignant neoplasm of Medica l Center breast (procedure) [code = 095343729] Future Scheduled [address] [facility] 00:00:00 (combo) [code = CT Medical C enter Colonography (combo)] Future Scheduled [address] [facility] Test 00:00:00 malignant neoplasm of [facility] Center colon (procedure) [code = 502522712] Future Scheduled [address] [facility] [facility] Test 00:00:00 malignant neoplasm of [facility] Center colon (procedure) [code = 003972159] Future Scheduled 1951 DXA SCAN [code = DXA [facility] Test 00:00:00 SCAN] [facility] Future Scheduled [address] [facility] [facility] 00:00:00 malignant neoplasm of [facility] Center colon (procedure) [code = 634001858] Future Scheduled [address] [facility] [facility] Test 00:00:00 malignant neoplasm of [facility] Center colon (procedure) [code = 810013732] Future Scheduled 1951 Sigmoidoscopy [facility] [address] [facility] Test 00:00:00 malignant neoplasm of [facility]ica [facility] Center breast (procedure) [code = 544289378] Future Scheduled [address] [facility] 00:00:00 (combo) [code = CT Medical C enter Colonography (combo)] Future Scheduled [address] [facility] [facility] 00:00:00 malignant neoplasm of [facility] Center colon (procedure) [code = 887847177] Future Scheduled [address] [facility] [facility] 00:00:00 malignant neoplasm of [facility] Center colon (procedure) [code = 568668510] Future Scheduled 1951 DXA SCAN [code = DXA [facility] Test 00:00:00 SCAN] [facility] Future Scheduled [address] [facility] 00:00:00 malignant neoplasm of Medica [facility] Center colon (procedure) [code = 281532423] Future Scheduled [address] [facility] Test 00:00:00 malignant neoplasm of [facility]ica [facility] Center colon (procedure) [code = 531938457] Future Scheduled 1951 Sigmoidoscopy [facility]] [facility] Future Scheduled [address] [facility] Test 00:00:00 malignant neoplasm of Medica l Center breast (procedure) [code = 219103665] Future Scheduled [address] [facility] 00:00:00 (combo) [code = CT Medical C enter Colonography (combo)] Future Scheduled [address] [facility] Test 00:00:00 malignant neoplasm of [facility] Center colon (procedure) [code = 496992267] Future Scheduled [address] [facility] Test 00:00:00 malignant neoplasm of [facility] Center colon (procedure) [code = 375127682] Future Scheduled 1951 DXA SCAN [code = DXA [facility] Test 00:00:00 SCAN] [facility] Future Scheduled [address] [facility] Test 00:00:00 malignant neoplasm of [facility] Center colon (procedure) [code = 555313986] Future Scheduled [address] [facility] Test 00:00:00 malignant neoplasm of Medica Center colon (procedure) [code = 212502120] Future Scheduled 1951 Sigmoidoscopy [facility]oscopy] Medical Kaleb saleh Encounters Start End Encounter Admission Attending Care Care Encounter Source Date/Time Date/Time Type Type Clinicians Facility Department ID 2021-06-09 Outpatient [facility] [id number] [place] 14:19:[id number] [place] [address] 2022-02-19 2022-02-22 [facility] [place] [id number] 22[facility]07[facility]00 13:36:00 Encounter [facility] 2022-02-19 2022-02-22 Inpatient ER , [facility] Gastro [id number] [facility] 22:07:00 13:36:00 [facility] 2022-02-19 2022-02-22 [facility] [place] [id number] 22[facility]07[facility]00 13:36:00 Encounter [facility] 2022-02-20 2022-02-20 Travel [facility] [id number] [facility] 00[facility]00 [facility] 2022-02-20 2022-02-20 Travel [facility] [id number] [facility] 00[facility]00 [facility] 2021-06-22 2021-06-22 Outpatient R EFRAÍN CARTER [facility] [id number] Univers 10:40:00 10:40:00 EFRAÍN CARTER ity [facility] 2021-06-17 2021-06-17 Telephone Emma MOBROCK [id number] Univers 00:00:00 00:00:00 [id number] [facility] [id number] Trino as MARQUES?BLEA [phone] Az [address] MEDICAL OFFICE BUILDING 2021-05-17 2021-05-27 Inpatient EM Kt Holly [facility] MED [id number] [facility] 02:24:00 14:50:00 66 [facility] 2020-09-07 2020-09-07 [facility] [id number] Univers 00:00:00 00:00:00 Efraín Foster [id number] [id number] [phone] [address] 2020-06-18 2020-06-18 [facility] [id number] Univers 00:00:00 00:00:00 Efraín Foster [id number] [id number] [phone] [address] 2020-05-12 2020-05-12 [facility] [id number] Univers 16:00:00 16:00:00 ALLA ity of [facility] 2020-04-18 2020-04-18 [facility] [id number] Univers 00:00:00 00:00:00 Efraín Foster [id number] [id number] [phone] [address] 2020-04-18 2020-04-18 [facility] [id number] Univers 00:00:00 00:00:00 Efraín Foster [id number] [id number] [phone] [address] 2020-04-18 2020-04-18 [facility] [id number] Univers 00:00:00 00:00:00 Efraín Foster [id number] [id number] [phone] [place] [id number] [facility] 2020-04-17 2020-04-17 [facility] [id number] Univers 00:00:00 00:00:00 Efraín Foster [id number] [id number] [phone] [address] 2020-04-16 2020-04-16 [facility] [id number] Univers 00:00:00 00:00:00 Efraín Foster [id number] [id number] [phone] [address] 2020-04-16 2020-04-16 [facility] 1.2.840.114 [id number] Univers 00:00:00 00:00:00 Efraín Foster [id number] [id number] [phone] [place] [id number] [facility] 2020-04-16 2020-04-16 [facility] [id number] Univers 00:00:00 00:00:00 Efraín Fostre [id number] [id number] [phone] [address] 2020-04-14 2020-04-14 Sherri [facility] [id number] Univers 15:50:00 15:50:00 ALLA ity of [facility] 2020-03-19 2020-03-19 [facility] [id number] Univers 00:00:00 00:00:00 Efraín Foster 350.1.13.10 [place] [phone] [address] 2020-02-28 2020-02-28 [facility]phone [facility] 1.2.840.114 [id number] Univers 00:00:00 00:00:00 Efraín Foster 350.1.13.10 [place] [phone] [address] 2020-02-19 2020-02-19 Refill [facility] 1.2.840.114 [id number] Univers 00:00:00 00:00:00 Efraín Prabhakar Kristin 350.1.13.10 [place] [phone] [address] 2020-01-21 2020-01-21 [facility] 1.2.840.114 [id number] 853 Univers 00:00:00 00:00:00 Efraín Foster 350.1.13.10 [place] [phone] [address] 2020-01-21 2020-01-21 Orders Doctor HOANG 1.2.840.114 [id number] Univers 00:00:00 00:00:00 Only Unassigned, JESUSITA 350.1.13.10 ity of [place] [facility] 4.2.7.2.686 Trino as [phone] [address] 2019-12-25 2019-12-25 [facility] 1.2.840.114 [id number] Univers 00:00:00 00:00:00 Efraín Foster 350.1.13.10 [place] [phone] [address] 2019-12-24 2019-12-24 Telephone [facility] 1.2.840.114 [id number] Univers 00:00:00 00:00:00 Efraín Foster 350.1.13.10 [place] [phone] Az dical nal [address] [place] [address] 2019 2019 [facility], [facility] 1.2.840.114 [id number] Univers 00:00:00 00:00:00 Efraín De Los Santoston 350.1.13.10 [place] [phone] [address] 2019-11-23 2019-11-23 [facility] 1.2.840.114 [id number] Univers 00:00:00 00:00:00 Efraín De Los Santoston 350.1.13.10 [place] [phone] [address] 2019-11-23 2019-11-23 [facility] 1.2.840.114 [id number] 051 Univers 00:00:00 00:00:00 Efraín De [place] Santoston 350.1.13.10 [place] [phone] [address] 2019-10-29 2019-10-29 [facility] 1.2.840.114 [id number] Univers 00:00:00 00:00:00 Efraín De Los Santoston 350.1.13.10 [place] [phone] [address] 2019-10-26 2019-10-26 [facility] 1.2.840.114 [id number] 757 Univers 00:00:00 00:00:00 Efraín De [place]oston 350.1.13.10 [place] [phone] [address] 2019-09-28 2019-09-28 [facility] 1.2.840.114 [id number] Univers 00:00:00 00:00:00 Efarín Radford Leroy 350.1.13.10 [place] [phone] [address] 2019-09-28 2019-09-28 [facility] 1.2.840.114 [id number] [id number] Univers 00:00:00 00:00:00 Efraín Foster 350.1.13.10 [place] [phone] [address] 2019-09-25 2019-09-25 Refill [facility] 1.2.840.114 [id number] 036 Univers 00:00:00 00:00:00 Efraín Foster 350.1.13.10 [place] [phone] [address] 2019-09-10 2019-09-10 [facility] [id number] Univers 13:00:00 13:00:00 KRISTEL ity of [facility] 2019-08-22 2019-08-22 [facility] 1.2.840.114 [id number] Univers 00:00:00 00:00:00 Efraín Foster 350.1.13.10 [place] [phone] [address] 2019-07-23 2019-07-23 [facility] 1.2.840.114 [id number] [id number] Univers 00:00:00 00:00:00 Efraín Foster 350.1.13.10 [place] [phone] [address] 2019-07-20 2019-07-20 [facility] 1.2.840.114 [id number] [id number] Univers 00:00:00 00:00:00 Efraín Foster 350.1.13.10 [place] [phone] [address] 2019-07-20 2019-07-20 [facility] 1.2.840.114 [id number] [id number] Univers 00:00:00 00:00:00 Efraín Foster 350.1.13.10 [place] [phone] [address] 2019-07-20 2019-07-20 [facility] 1.2.840.114 [id number] [id number] Univers 00:00:00 00:00:00 Efraín Foster 350.1.13.10 [place] [phone] [address] 2019-07-19 2019-07-19 [facility] 1.2.840.114 [id number] Univers 00:00:00 00:00:00 Efraín Foster 350.1.13.10 [place] [phone] [address] 2019-07-18 2019-07-18 [facility] 1.2.840.114 [id number] 925 Univers 00:00:00 00:00:00 Efraín Foster 350.1.13.10 [place] [phone] [address] 2019-07-06 2019-07-06 Jonathan [facility] 1.2.840.114 [id number] [id number] Univers 00:00:00 00:00:00 Efraín Foster 350.1.13.10 [place] [phone] [address] 2019-07-05 2019-07-05 Balwinder SaundersM[facility] 1.2.840.114 [id number] 488 Univers 00:00:00 00:00:00 Wondiful [facility] 350.1.13.10 ity of [place] 4.2.7.2.686 [place] Professio [phone] Az dical nal 044 [facility] 2019-07-03 2019-07-03 Telemedici Emma [facility] 1.2.840.114 [id number] Univers 08:05:45 10:48:54 ne Visit Efraín Foster 350.1.13.10 [place] [phone] [facility] 092 [facility] 2019-07-03 2019-07-03 Outpatient R EFRAÍN CARTER [facility] [id number] Univers 09:20:00 09:20:00 EFRAÍN CARTER ity [facility] 2019-06-19 2019-06-19 Telephone [facility] 1.2.840.114 [id number] Univers 00:00:00 00:00:00 Efraín Foster 350.1.13.10 [place] [phone] [address] 2019-06-18 2019-06-18 Telephone [facility] 1.2.840.114 [id number] Univers 00:00:00 00:00:00 Efraín Foster 350.1.13.10 [place] [phone] [address] 2019-05-28 2019-05-28 Refill Emma [facility] 1.2.840.114 [id number] Univers 00:00:00 00:00:00 Efraín Foster 350.1.13.10 [place] [phone] Az dic[address] 2019-05-16 2019-05-16 Telephone [facility] 1.2.840.114 [id number] Univers 00:00:00 00:00:00 Efraín Foster 350.1.13.10 [place] [phone] [facility] [address] [place] [address] 2019-05-13 2019-05-13 Refill [facility] 1.2.840.114 [id number] 521 Univers 00:00:00 00:00:00 [facility] 350.1.13.10 ity of [place] 4.2.7.2.686 [place] Professio [phone] Az michele garza 044 [facility] 2019-05-13 2019-05-13 Refalfonzo CarterM[facility] 1.2.840.114 [id number] Univers 00:00:00 00:00:00 Efraín Gene [place] 350.1.13.10 [place] [phone] Az shirleytimtohy greg 092 [facility] 2019-05-09 2019-05-09 Outpatient R ELISSA [facility] [id number] Univers 14:15:00 14:15:00 TAMARA ity of [facility] 2019-05-09 2019-05-09 Telephone [facility] 1.2.840.114 [id number] Univers 00:00:00 00:00:00 W[facility]iful [facility] 350.1.13.10 ity of [place] 4.2.7.2.686 [place] Professio [phone] Az michele garza [address] [place] [address] One 2019-05-09 2019-05-09 Telephone Elissa [facility] 1.2.840.114 [id number] Univers 00:00:00 00:00:00 Tamara D SPECIALTY 350.1.13.10 it[place] [phone] Az michele MERIDA [address] [facility] 2019-05-08 2019-05-08 Telephone [facility] 1.2.840.114 [id number] [id number] Univers 00:00:00 00:00:00 W[facility]iful [facility] 350.1.13.10 ity of [place] 4.2.7.2.686 [place] Profess[place] [phone] Az michele garza 044 [facility] 2019-04-20 2019-04-20 Office [facility] 1.2.840.114 [id number] Univers 09:23:30 19:21:09 Visit Wondiful A [facility] 350.1.13.10 ity of [place] 4.2.7.2.686 [place] Profess[place] [phone] [facility] 044 [facility] 2019-04-20 2019-04-20 Outpatient R [facility] [id number] Univers 09:00:00 09:00:00 WONDIFUL ity o f [facility] 2019-04-19 2019-04-19 Telephone [facility] 1.2.840.114 [id number] [facility] [place] 00:00:00 00:00:00 Efraín Foster 350.1.13.10 [place] [phone] [facility]92 [facility] 2019-04-15 2019-04-15 Refill [facility] 1.2.840.114 [id number] 071 Univers 00:00:00 00:00:00 Efraín Foster 350.1.13.10 [place] [phone] Az dicin nal [address] [place] [address] 2019-03-23 2019-03-23 Office [facility] 1.2.840.114 [id number] [facility] [place] 09:58:29 11:26:48 Visit Efraín Foster 350.1.13.10 [place] [phone] [address] 2019-03-22 2019-03-22 [facility] 1.2.840.114 [id number] Univers 00:00:00 00:00:00 Efraín Foster 350.1.13.10 [place] [phone] [address] 2019-03-22 2019-03-22 Telephone [facility] 1.2.840.114 [id number] Univers 00:00:00 00:00:00 Efraín Foster 350.1.13.10 [place] [phone] Az shirleyin greg 2 [facility] 2019-03-16 2019-03-16 Balwinder [facility] 1.2.840.114 [id number] 615 Univers 00:00:00 00:00:00 Efraín Foster 350.1.13.10 [place] [phone] [address] 2019-03-07 2019-03-07 [facility] 1.2.840.114 [id number] Univers 00:00:00 00:00:00 Efraín Foster 350.1.13.10 [place] [phone] [address] 2018-09-08 2018-09-08 [facility] 1.2.840.114 [id number] 417 Univers 00:00:00 00:00:00 Efraín Foster 350.1.13.10 [place] [phone] [address] Results Test Description Test Time Test Comments Results Result Comments Source POC-Glucose meter 2022-02-22 11:38:16 Test Item Value Reference Range Interpretation Comme nts POC-Glucose Meter (test code = 162 mg/dL 70-110 H : TESTED AT [facility] [address] [place] [address]: Draw Press Operator/Techni whitney ID = [id number] for Torrez, [place] Lab Interpretation (test code = Abnormal 80156-3) [facility]-Glucose [id number] 11:38:16 Test Item Value Reference Range Interpretation Comments POC-Glucose Meter (test 162 mg/dL 70-110 H : TE STED AT [facility] code = 1538) [place] [address] [place] [address]: Draw Press Operator/Techni whitney ID = [id number] for [place]rez, [place] Lab Interpretation (test Abnormal code = 81503-5) [facility] [id number] 11:38:16 Test Item Value Reference Range Interpretation Comments POC-Glucose Meter (test 162 mg/dL 70-110 H : TE STED AT [facility] code = 1538) [place] [address]: Draw Press Operator/Techni whitney ID = [id number] for Torrez, [place] Lab Interpretation (test Abnormal code = 24810-2) [facility] [id number] 11:38:16 Test Item Value Reference Range Interpretation Comments POC-Glucose Meter (test 162 mg/dL 70-110 H : TE STED AT [facility] code = 1538) [place] [address]: Draw Press Operator/Techni whitney ID = [id number] for Torrez, [place] Lab Interpretation (test Abnormal code = 69097-1) [facility] CampusPOCT-GLUCOSE [id number] 11:38:16 Test Item Value Reference Range Interpretation Comments POC-GLUCOSE METER 162 mg/dL 70-110 H : TESTED A T [facility] (BEAKER) (test code [address], = 1538) [place] [address] 0: Draw Press Operator/Techni whitney ID = [id number] for Delg [place], [place] POCT-GLUCOSE [id number] 05:57:53 Test Item Value Reference Range Interpretation Comments POC-GLUCOSE METER 144 mg/dL 70-110 H : TESTED A T [facility] (BEAKER) (test code [address], = 1538) [place] [address] 0: Draw Press Operator/Techni whitney ID = [id number] for Alex Maddox BASIC METABOLIC [id number] 04:43:08 Test Item Value Reference Range Interpretation [...] not appl icable for dialysis patien ts Draw Press Operator ID - [id number] W/PLT COUNT & AUTO [id number] 04:27:28 Test Item Value Reference Range Interpretation [...] PERCENT (BEAKER) (test code = 2801) POCT-GLUCOSE [id number] 20:16:09 Test Item Value Reference Range Interpretation Comments POC-GLUCOSE METER 170 mg/dL 70-110 H : TESTED A T [facility] (BEAKER) (test code [address], = 1538) [place] [address] 0: Draw Press Operator/Techni whitney ID = [id number] for JluisAdair cappsmaryalexsandra POCT-GLUCOSE [id number] 17:12:07 Test Item Value Reference Range Interpretation Comments POC-GLUCOSE METER 147 mg/dL 70-110 H : TESTED A T [facility] (BEAKER) (test code [address], = 1538) [place] [address] 0: Draw Press Operator/Techni whitney ID = [id number] for Chris atHemanth VENOUS DOPPLER LEGS, [id number] 14:46:00Reason for exam:->Leg swellingCHI SALINAS [facility]Name: [facility]ER[facility] : 1950 Sex: FFINAL [...] thrombosis in either leg. Signed: Gurpreet Bazan Verified Date/Time: 02/21/2022 14:46:41 Reading Location: [address] Reading Room POCT-GLUCOSE [id number] 12:09:09 Test Item Value Reference Range Interpretation Comments POC-GLUCOSE METER 202 mg/dL 70-110 H : TESTED A T [facility] (BEAKER) (test code [address], = 1538) [facility] 1277 0: Draw Press Operator/Techni whitney ID = [id number] for Hemanth Levy BASIC METABOLIC [id number] 05:54:34 Test Item Value Reference Range Interpretation [...] not appl icable for dialysis patien ts Draw Press Operator ID - PURAPOCT-GLUCOSE [id number] 05:44:27 Test Item Value Reference Range Interpretation Comments POC-GLUCOSE METER 156 mg/dL 70-110 H : TESTED A T [facility] (BEAKER) (test code [address], = 1538) [place] [address]: Draw Press Operator/Techni whitney ID = [id number] for LANC Doug KHAN CBC W/PLT COUNT & AUTO [id number] 05:38:05 Test Item Value Reference Range Interpretation [...] PERCENT (BEAKER) (test code = 2801) POCT-GLUCOSE [id number] 00:42:34 Test Item Value Reference Range Interpretation Comments POC-GLUCOSE METER 149 mg/dL 70-110 H : TESTED A T [facility] (BEAKER) (test code [address], = 1538) [facility] 7707 0: Draw Press Operator/Techni whitney ID = [id number] for Doug CAMILO POCT-GLUCOSE [id number] 17:07:25 Test Item Value Reference Range Interpretation Comments POC-GLUCOSE METER 219 mg/dL 70-110 H : TESTED A T [facility] (BEAKER) (test code [address], = 1538) [place] [address] 0: Draw Press Operator/Techni whitney ID = [id number] for Sujatha Smith HEMOGLOBIN AND [id number] 12:35:26 Test Item Value Reference Range Interpretation Comments HEMOGLOBIN (BEAKER) (test code = 10.3 GM/DL 12.0-15.5 L 410) HEMATOCRIT (BEAKER) (test code = 33.5 % 36.0-46.0 L 411) POCT-GLUCOSE [id number] 11:31:48 Test Item Value Reference Range Interpretation Comments POC-GLUCOSE METER 113 mg/dL 70-110 H : TESTED A T [facility] (BEAKER) (test code [address], = 1538) [place] [address] 0: Draw Press Operator/Techni whitney ID = [id number] for Lisa Son RAD, CHEST, 1 VIEW, NON [id number] 08:18:00Reason for exam:->sobShould this be performed at the bedside?->Yes [facility] : 1950 Sex: FFINAL REPORT Exam: RAD, CHEST, 1 VIEW, NON DEPTDate: 02/20/2022 8:17 AM Indication:sobComparison: None available. IMPRESSION: Patient is rotated. Lines/Tubes:None Lungs and Pleura :Right retrocardiac opacity. Mildly increased interstitial opacities. No pleural effusions. No pneumothorax. Heart/Mediastinum:Cardiac silhouette is poorly evaluated, but appears enlarged. Bones/Soft Tissues: No acute osseous abnormality. Upper abdomen: Unremarkable. Signed: Martina Venegas Verified Date/Time: 02/20/2022 08:18:26 HEMOGLOBIN AND [id number] 06:14:37 Test Item Value Reference Range Interpretation Comments HEMOGLOBIN (BEAKER) (test code = 10.1 GM/DL 12.0-15.5 L 410) HEMATOCRIT (BEAKER) (test code = 33.4 % 36.0-46.0 L 411) POCT-GLUCOSE [id number] 05:42:14 Test Item Value Reference Range Interpretation Comments POC-GLUCOSE METER 140 mg/dL 70-110 H : TESTED A T [facility] (BEAKER) (test code CHASEWOO [address], = 1538) [facility] 7707 0: Draw Press Operator/Techni whitney ID = [id number] for Armando Novoa [id number] 00:04:03 Test Item Value Reference Range Interpretation Comments D-DIMER QUANTITATIVE 2.19 MG/L FEU <0.50 H Final Information (BEAKER) (test code = (Auto Output) 671) REGARDING D-DIMER RESULTS: The 98% NPV (Negative Predictive Value) for DVT/PE exclusion is 0.50 mg/LFEU as suggested by the kaiawhina kura kaupapa maori and as approved by the FDA.B-TYPE NATRIURETIC FACTOR (BNP)2022-02-20 00:01:32 Test Item Value Reference Range Interpretation Comments B-TYPE NATRIURETIC PEPTIDE (BEAKER) 755 pg/mL 0-100 H (test code = 700) Draw Press Operator ID - [id number] W/PLT COUNT & AUTO [id number] 23:55:41 Test Item Value Reference Range Interpretation [...] (BEAKER) (test code = 2801) BASIC METABOLIC [id number] 23:55:20 Test Item Value Reference Range Interpretation [...] not appl icable for dialysis patien ts Draw Press Operator ID - BRUCEPOCT-GLUCOSE [id number] 23:45:07 Test Item Value Reference Range Interpretation Comments POC-GLUCOSE METER 170 mg/dL 70-110 H : TESTED A T [facility] (BEMICHEL) (test code BERRYWOO [address], = 1538) [facility] 7707 0: Draw Press Operator/Techni whitney ID = [id number] for Armando Novoa Blood gas, [id number] 23:26:43 Test Item Value Reference Range Interpretation [...] 8310-5) Lab Interpretation Abnormal (test code = 04259-7) [facility] gas, [id number] 23:26:43 Test Item Value Reference Range Interpretation [...] 8310-5) Lab Interpretation Abnormal (test code = 76447-6) [facility] gas, [id number] 23:26:43 Test Item Value Reference Range Interpretation [...] 8310-5) Lab Interpretation Abnormal (test code = 67829-0) [facility], [id number] 23:26:43 Test Item Value Reference Range Interpretation Comments pH, Arterial (test code 7.32 7.35-7.45 L = 2744-1) pCO2, Arterial (test 44 See_Comment [Autom ated code = 2019-) message] The system which generated this result [...] 8310-5) Lab Interpretation Abnormal (test code = 98549-6) [facility] CampusBLOOD GAS, [id number] 23:26:43 Test Item Value Reference Range Interpretation Comments PH ARTERIAL (BEAKER) (test code = 7.32 7.35-7.45 L 383) PCO2 ARTERIAL (BEAKER) (test code 44 mm Hg 35-45 = 384) PO2 ARTERIAL (BEAKER) (test code 57 mm Hg 80-90 L = 385) O2 SATURATION ARTERIAL (BEAKER) 89.1 % 96.0-97.0 L (test code = 386) HCO3 ARTERIAL (BEAKER) (test code 23 mmol/L 21-29 = 388) BASE EXCESS ARTERIAL (BEAKER) -3.9 mmol/L -2.0-3.0 L (test code = 387) PATIENT TEMPERATURE (BEAKER) 36.0 (test code = 1818) [id number] 00:11:00 Test Item Value Reference Range Interpretation Comments GLUBED (test code = GLUBED) 115 MG/DL 70-105 H [id number] 12:02:00 Test Item Value Reference Range Interpretation Comments GLUBED (test code = GLUBED) 148 MG/DL 70-105 H [id number] 00:29:00 Test Item Value Reference Range Interpretation Comments GLUBED (test code = GLUBED) 124 MG/DL 70-105 H [id number] 20:43:00 Test Item Value Reference Range Interpretation Comments GLUBED (test code = GLUBED) 142 MG/DL 70-105 H [id number] 13:20:00 Test Item Value Reference Range Interpretation Comments GLUBED (test code = GLUBED) 180 MG/DL 70-105 H [id number] 05:56:00 Test Item Value Reference Range Interpretation Comments GLUBED (test code = GLUBED) 123 MG/DL 70-105 H [id number] 00:28:00 Test Item Value Reference Range Interpretation Comments GLUBED (test code = GLUBED) 104 MG/DL 70-105 N B-TYPE NATRIURETIC [id number] 08:07:00 Test Item Value Reference Range Interpretation Comments B-TYPE NATRIURETIC PEPTIDE (test 793 pg/mL <100 H code = BNP) BASIC METABOLIC [id number] 08:07:00 Test Item Value Reference Range Interpretation [...] New = CA) Reference Range Mar 2020 [id number] 08:07:00 Test Item Value Reference Range Interpretation Comments PHOSPHOROUS (test code 2.9 mg/dL 2.4-5.1 N Pleas e note: New = PHOS) Reference Range Mar 2020 [id number] 08:07:00 Test Item Value Reference Range Interpretation Comments MAGNESIUM (test code = 1.8 mg/dL 1.6-2.6 N Pleas e note: New MAG) Reference Range Mar 2020 CBC W/AUTO [id number] 07:49:00 Test Item Value Reference Range Interpretation [...] = BA#) 0.03 x10 3/uL 0.0-0.20 N [id number] 07:40:00 Test Item Value Reference Range Interpretation Comments GLUBED (test code = GLUBED) 115 MG/DL 70-105 H [id number] 00:35:00 Test Item Value Reference Range Interpretation Comments GLUBED (test code = GLUBED) 126 MG/DL 70-105 H [id number] 17:23:00 Test Item Value Reference Range Interpretation Comments GLUBED (test code = GLUBED) 121 MG/DL 70-105 H [id number] 11:54:00 Test Item Value Reference Range Interpretation Comments GLUBED (test code = GLUBED) 125 MG/DL 70-105 H [id number] 07:41:00 Test Item Value Reference Range Interpretation Comments GLUBED (test code = GLUBED) 116 MG/DL 70-105 H COMPREHENSIVE METABOLIC [id number] 07:16:00 Test Item Value Reference Range Interpretation [...] ALKP) Reference Range Mar 2020 CBC W/AUTO [id number] 07:07:00 Test Item Value Reference Range Interpretation [...] = BA#) 0.01 x10 3/uL 0.0-0.20 N [id number] 06:53:00 Test Item Value Reference Range Interpretation Comments GLUBED (test code = GLUBED) 108 MG/DL 70-105 H [id number] 00:32:00 Test Item Value Reference Range Interpretation Comments GLUBED (test code = GLUBED) 88 MG/DL 70-105 N [id number] 17:26:00 Test Item Value Reference Range Interpretation Comments GLUBED (test code = GLUBED) 103 MG/DL 70-105 N [id number] 12:28:00 Test Item Value Reference Range Interpretation Comments GLUBED (test code = GLUBED) 105 MG/DL 70-105 N [id number] 10:12:00 Test Item Value Reference Range Interpretation Comments GLUBED (test code = GLUBED) 166 MG/DL 70-105 H [id number] 06:35:00 Test Item Value Reference Range Interpretation Comments GLUBED (test code = GLUBED) 117 MG/DL 70-105 H [id number] 02:42:00 Test Item Value Reference Range Interpretation Comments GLUBED (test code = GLUBED) 116 MG/DL 70-105 H [id number] 12:06:00 Test Item Value Reference Range Interpretation Comments GLUBED (test code = GLUBED) 151 MG/DL 70-105 H - XR CHEST 1 [id number] 08:30:00 [facility] : 1950 Sex: FPatient Name: CYNDI FERRELL Unit No: [id number] EXAMS: CPT CODE: [id number] XR CHEST 1 V 66680 CHEST 1 VIEW: INDICATION: chf COMPARISON: There [...] m2): Air Kerma (mGy): Trscr Dt/Tm: 05/22/2021 (85) by:[email or web address] Printed Date/Time: 05/22/2021 (3205) Name: CYNDI [facility] Phys: Alberto Carrizales [address] : 1950 Age: 70 Sex: [place] [id number] Loc: P.[phone] 1 Exam Date: 05/22/2021 Status: ADM IN PH: FAX: PAGE 1 Signed ReportBASIC METABOLIC [id number] 07:12:00 Test Item Value Reference Range Interpretation [...] CA) Reference Range Mar 2020 B-TYPE NATRIURETIC [id number] 07:12:00 Test Item Value Reference Range Interpretation Comments B-TYPE NATRIURETIC PEPTIDE (test 857 pg/mL <100 H code = BNP) [id number] 00:21:00 Test Item Value Reference Range Interpretation Comments GLUBED (test code = GLUBED) 155 MG/DL 70-105 H [id number] 17:53:00 Test Item Value Reference Range Interpretation Comments MAGNESIUM (test code = 1.5 mg/dL 1.6-2.6 L Pleas e note: New MAG) Reference Range Mar 2020 [id number] 17:23:00 Test Item Value Reference Range Interpretation Comments GLUBED (test code = GLUBED) 170 MG/DL 70-105 H [id number] 13:04:00 Test Item Value Reference Range Interpretation Comments GLUBED (test code = GLUBED) 153 MG/DL 70-105 H BASIC METABOLIC [id number] 11:13:00 Test Item Value Reference Range Interpretation [...] New = CA) Reference Range Mar 2020 [id number] 07:33:00 Test Item Value Reference Range Interpretation Comments GLUBED (test code = GLUBED) 140 MG/DL 70-105 H [id number] 00:56:00 Test Item Value Reference Range Interpretation Comments GLUBED (test code = GLUBED) 118 MG/DL 70-105 H [id number] 17:29:00 Test Item Value Reference Range Interpretation Comments GLUBED (test code = GLUBED) 118 MG/DL 70-105 H [id number] 12:33:00 Test Item Value Reference Range Interpretation Comments GLUBED (test code = GLUBED) 134 MG/DL 70-105 H BASIC METABOLIC [id number] 08:34:00 Test Item Value Reference Range Interpretation [...] CA) Reference Range Mar 2020 CBC W/AUTO [id number] 08:07:00 Test Item Value Reference Range Interpretation [...] = BA#) 0.00 x10 3/uL 0.0-0.20 N [id number] 05:32:00 Test Item Value Reference Range Interpretation Comments GLUBED (test code = GLUBED) 118 MG/DL 70-105 H [id number] 00:15:00 Test Item Value Reference Range Interpretation Comments GLUBED (test code = GLUBED) 99 MG/DL 70-105 N [id number] 12:09:00 Test Item Value Reference Range Interpretation Comments GLUBED (test code = GLUBED) 184 MG/DL 70-105 H [id number] 08:04:00 Test Item Value Reference Range Interpretation Comments GLUBED (test code = GLUBED) 193 MG/DL 70-105 H [id number] 08:04:00 Test Item Value Reference Range Interpretation Comments GLUBED (test code = GLUBED) 189 MG/DL 70-105 H BASIC METABOLIC [id number] 07:37:00 Test Item Value Reference Range Interpretation [...] CA) Reference Range Mar 2020 COMPREHENSIVE METABOLIC [id number] 07:37:00 Test Item Value Reference Range Interpretation [...] ALKP) Reference Range Mar 2020 CBC W/AUTO [id number] 07:30:00 Test Item Value Reference Range Interpretation [...] = BA#) 0.01 x10 3/uL 0.0-0.20 N [id number] 17:32:00 Test Item Value Reference Range Interpretation Comments GLUBED (test code = GLUBED) 192 MG/DL 70-105 H [id number] 13:01:00 Test Item Value Reference Range Interpretation Comments GLUBED (test code = GLUBED) 205 MG/DL 70-105 H [id number] 13:01:00 Test Item Value Reference Range Interpretation Comments GLUBED (test code = GLUBED) 213 MG/DL 70-105 H [id number] 13:01:00 Test Item Value Reference Range Interpretation Comments GLUBED (test code = GLUBED) 257 MG/DL 70-105 H - XR ABDOMEN [id number] 08:26:00 [facility] : 1950 Sex: FPatient Name: CYNDI FERRELL Unit No: [id number] EXAMS: CPT CODE: [id number] XR ABDOMEN 1V 11033 ABDOMEN, SINGLE VIEW DICTATION LOCATION A1 HISTORY: Small bowel obstruction. A single view of the abdomen 7:32 AM was compared to a abdomen and pelvis CT from May 17, 2021. FINDINGS: Mild constipation has improved but persists. Nasogastric tube is in a decompressed stomach. Small bowel gas pattern is nonspecific. IMPRESSION: Improvement in constipation. No other new finding or change. at 08 Reported and signed by: Yariel Patel Jr, MD CC: Kt Holly MD; Hoang Lake Jr, MD Technologist: Gavin Ledesma Fluoro Time: DAP (Gy m2): Air Kerma (mGy): Trscr Dt/Tm: 05/18/2021 (825) by:Efren Printed Date/Time: 05/18/2021 (828) Name: [facility] Phys: Hoang Johnson Jr, MD [address] : 1950 Age: 70 Sex: [place] [address] Loc: P.[phone] 1 Exam Date: 05/18/2021 Status: ADM IN PH: FAX: PAGE 1 Signed ReportCOMPREHENSIVE METABOLIC [id number] 06:58:00 Test Item Value Reference Range Interpretation [...] LDL Cholesterol<1 00mg/dL : Desirable LDL -C udlofdpnyfpag43 0-159mg /dL: Borderline High Risk LDL-C ttgabkcahlquc05 0-189mg /dL: High risk LDL-C concentration H DL-LDL Cholesterol is affected by a n umber of factors such as smoking, age an d sex.~~~~~~~~~~~ ~~~~~~~ ~~~~~~~~~~~~~~~ ~~~~~~~ ~~~~~~~~~~~~~~~ ~~~~~ HGBA1C - GLYCOSYLATED [id number] 06:58:00 Test Item Value Reference Range Interpretation Comments GLYCOSYLATED HEMOGLOBIN 6.9 % <5.7 H Diab etic >/= (HA1C) (test code = 6.5%Pred iabetes GLYHGB) 5.7-6.4%Normal < 5.7% CBC W/AUTO [id number] 06:40:00 Test Item Value Reference Range Interpretation [...] = BA#) 0.00 x10 3/uL 0.0-0.20 N [id number] 04:52:00 Test Item Value Reference Range Interpretation Comments GLUBED (test code = GLUBED) 200 MG/DL 70-105 H [id number] 04:52:00 Test Item Value Reference Range Interpretation Comments GLUBED (test code = GLUBED) 260 MG/DL 70-105 H [id number] 17:59:00 Test Item Value Reference Range Interpretation Comments GLUBED (test code = GLUBED) 221 MG/DL 70-105 H [id number] 17:59:00 Test Item Value Reference Range Interpretation Comments GLUBED (test code = GLUBED) 207 MG/DL 70-105 H - CT ABD PELVIS [id number] 12:45:00 [facility] : 1950 Sex: FPatient Name: CYNDI FERRELL Unit No: [id number] EXAMS: CPT CODE: [id number] CT ABD PELVIS W/CONT 78431 EXAM: - CT ABD PELVIS W/CONT Location: [...] 892 mGy-cm. FINDINGS: Abdomen Lower thorax: Minimal d ependent airspace densities are noted in the lung [...] measuring approximately 5 cm possibly sequelae of diverticulitis.There is minimal infiltration in the adjacent sigmoid [...] Vessels: No visualized abnormality. Name: [facility] Phys: Ho Chavez [address] : 1950 Age: 70 Sex: [place] [address] Loc: P.0635 1 Exam Date: 05/17/2021 Status: ADM IN PH: FAX: PAGE 1 Signed Report (CONTINUED) Patient Name: CYNDI FERRELL Unit No: [id number] EXAMS: CPT CODE: [id number] CT ABD PELVIS W/CONT 69146 (Continued) Lymph nodes: No lymphadenopathy Peritoneum/retroperitoneum: No [...] pelvic fluid. Uterus is surgically absent. at 1246 Reported and signed by: DEREK GARCIA M.D. CC: Kt Holly MD; Ho Cody MD Technologist: Lester Winkler CTDI: 14.37 DLP: 892 Trscr Dt/Tm: 05/17/2021 (9849) by:[email or web address] Printed Date/Time: 05/17/2021 (6165) Name: [facility] Phys: DENAE Andrewmarleny CodyHo [address] : 1950 Age: 70 Sex: [place] [address] Loc: P.0635 1 Exam Date: 05/17/2021 Status: ADM IN PH: FAX: PAGE 2 Signed Report- US ABDOMEN [id number] 11:02:00 [facility] : 1950 Sex: FPatient Name: CYNDI FERRELL Unit No: [id number] EXAMS: CPT CODE: [id number] US ABDOMEN COMPLETE 15896 EXAM: ABDOMINAL ULTRASOUND COMPLETE INDICATION: abdominal pain [...] abdominal abnormality is clearly seen. Name:[facility]ND[facility] Phys: Kt Wilson MD [address] : 1950 Age:70 Sex: [place] [address] Loc: P.0635 1 Exam Date: 05/17/2021 Status: ADM INPH: FAX: PAGE 1 Signed Report (CONTINUED) Patient Name: CYNDI FERRELL Unit No: [id number] EXAMS: CPTCODE: [id number] US ABDOMEN COMPLETE 09658 (Continued) at 1102 Reported and signed by: SHELIA CROWELL M.D. CC: Kt Burnett MD Technologist: TERI CONNOR RDMS (AB) Probe: Trscr Dt/Tm: 05/17/2021 (1102) by:[email or web address] Printed Date/Time: 05/17/2021 (1106) Name: [facility] Phys: Kt Wilson MD [address] : 1950 Age: 70 Sex: [place] [address] Loc: [phone] Exam Date: 05/17/2021 Status: ADM IN PH: FAX: PAGE 2 Signed Report- XR ABDOMEN [id number] 10:33:00 [facility] : 1950 Sex: FPatient Name: CYNDI FERRELL Unit No: [id number] EXAMS: CPT CODE: [id number] XR ABDOMEN 1V 83388 EXAM: XR ABDOMEN 1 VIEW INDICATION: NG [...] Printed Date/Time: 05/17/2021 (1036) Name: [facility] Phys: Lorenzo Moses DO [address] : 1950 Age: 70 Sex: [place] [address] Loc: P.0635 1 Exam Date: 05/17/2021 Status: ADM IN PH: FAX: PAGE 1 Signed [id number] 08:49:00 Test Item Value Reference Range Interpretation Comments MAGNESIUM (test code = 1.6 mg/dL 1.6-2.6 N Pleas e note: New MAG) Reference Range Mar 2020 THYROID STIMULATING [id number] 08:49:00 Test Item Value Reference Range Interpretation Comments THYROID STIMULATING 1.25 mIU/mL 0.55-4.78 N Please n ote: New HORMONE (test code = Referen ce Range Mar TSH) 2020 COMPREHENSIVE METABOLIC [id number] 08:49:00 Test Item Value Reference Range Interpretation [...] Range Feb code = ALKP) 2020 PROTHROMBIN [id number] 08:35:00 Test Item Value Reference Range Interpretation [...] 2.5-3.5recurren t systemic emboli sm. THROMBOPLASTIN TIME [id number] 08:35:00 Test Item Value Reference Range Interpretation Comments THROMBOPLASTIN TIME 30.6 SECONDS 23.8-34.8 N INTERPRE TATIVE PARTIAL (test code = : erapeutic PTT) range: Unfractionated heparin:55 - 80 seconds Argatroban:1.5 to 3 times the basel ine PTT CBC W/AUTO [id number] 08:27:00 Test Item Value Reference Range Interpretation [...]
[2022-06-26 15:21] LABS: Absolute Lymphocytes (CBC) 0.6 K/uL (0.7-4.9); Hematocrit 36.4 % (36.0-45.0); MCV 78.4 fL (80-100); MPV 7.9 fL (7.6-11.3); RBC Red Blood Cell Count 4.64 M/uL (3.86-4.86)
[2022-06-26 15:38] LABS: Bilirubin Direct 0.3 mg/dL (0-0.2); Bilirubin Indirect, Calculated 0.3 (0.2-0.8); Bilirubin Total 0.6 mg/dL (0.2-1.0); Magnesium 1.8 mg/dL (1.6-2.4); Potassium 4.2 mEq/L (3.5-5.1); Protein, Total 7.7 g/dL (6.4-8.2); Troponin High Sensitivity 41.6 pg/mL (<58.9)
--- NOTE | 2022-06-26 15:52 | RAD REPORT ---
EXAM DESCRIPTION: RAD - Chest Single View - 06/26/2022 3:01 pm CLINICAL HISTORY: Chest pain;Dyspnea COMPARISON: Chest Single View dated 04/26/2022; Chest Single View dated 02/19/2022; Chest Single View d ated 09/30/2021; Chest Single View dated 09/10/2021; Abdomen Pelvis W Contrast dated 02/19/2022 FINDINGS: Lines: None. Lungs: Diffuse prominence of the pulmonary interstitium. Pleural: Small effusions difficult to exclude. Cardiac: Cardiomegaly . Mediastinum: Within normal limits. Bones: No acute fractures. Other: None IMPRESSION: Findings likely representing pulmonary edema.
[2022-06-26] MEDS ORDERED: MORPHINE 4 MG/ML SYR ONE (16:49)
[2022-06-26] MEDS ORDERED: FUROSEMIDE 40 MG/4 ML VIAL ONE (16:50)
[2022-06-26] MEDS ORDERED: ONDANSETRON 4 MG/2 ML VIAL ONE (16:50)
--- NOTE | 2022-06-26 16:58 | ER ---
Nurse's Notes [facility] Name: Blanka Ferrell Age: 71 yrs Sex: Female : 1950 Arrival Date: 06/26/2022 Time: 13:45 Bed 5 Private MD: Diagnosis: Chest pain, unspecified;Combined systolic (congestive) and diastolic (congestive) heart failure Presentation: 06/26 13:52 Chief complaint: BLE swelling x 1 week, SOB and headache since last night. Coronavirus hb screen: At this time, the client does not indicate any symptoms associated with coronavirus-19. Ebola Screen: No symptoms or risks identified at this time. Risk Assessment: Do you want to hurt yourself or someone else? Patient reports no desire to harm self or others. Onset of symptoms was June 19, 2022. 13:52 Method Of Arrival: Wheelchair hb 13:54 Initial Sepsis Screen: Does the patient meet any 2 criteria? No. Patient's initial hb sepsis screen is negative. Does the patient have a suspected source of infection? No. Patient's initial sepsis screen is negative. 13:54 Acuity: THALIA 2 hb Historical: - Allergies: 13:53 Imitrex; hb - PMHx: 13:53 Anxiety; Chronic obstructive lung disease; Congestive heart failure; Diabetes - IDDM; hb Hypertension; Migraines; Thyroid problem; TIA; - PSHx: 13:53 section; Cholecystectomy; hysterectomy; hb - Immunization history:: Adult Immunizations up to date. Screenin:14 [facility] ED Fall Risk Assessment (Adult) History of falling in the last 3 months, pf1 including since admission No falls in past 3 months (0 pts) Confusion or Disorientation No (0 pts) Intoxicated or Sedated No (0 pts) Impaired Gait Yes (1 pt) Mobility Assist Device Used Yes (1 pt) Altered Elimination Yes (1 pt) Score/Fall Risk Level 3 or more points = High Risk Oriented to surroundings, Maintained a safe environment, Educated pt \\T\\ family on fall prevention, incl call for assistance when getting out of bed, Assessed \\T\\ reinforced patient's understanding of fall precautions, Provided non-skid footwear, Hourly rounding (assess needs \\T\\ fall precautionary measures) done, Used ambulatory aids as needed (educated on \\T\\ assisted with), Used gait belt as appropriate Implemented a Fall Risk Plan of Care, Remained w/in arm's length of patient and in sight while toileting, Offered frequent toileting (1:1 observation), Remained with patient while ambulating, Utilized family, sitter, or virtual remedial project manager as indicated. 19:14 Abuse screen: Denies threats or abuse. Nutritional screening: No deficits noted. pf1 Tuberculosis screening: No symptoms or risk factors identified. Assessment: 15:09 General: Appears in no apparent distress. comfortable, Behavior is calm, cooperative, kr3 appropriate for age. Pain: Denies pain. Neuro: Level of Consciousness is awake, alert, obeys commands, Oriented to person, place, time, situation. Cardiovascular: Rhythm is sinus rhythm. Respiratory: Airway is patent Respiratory effort is even, unlabored, Respiratory pattern is regular, symmetrical. GI: No signs and/or symptoms were reported involving the gastrointestinal system. : No signs and/or symptoms were reported regarding the genitourinary system. EENT: No signs and/or symptoms were reported regarding the EENT system. Derm: No signs and/or symptoms reported regarding the dermatologic system. Musculoskeletal: No signs and/or symptoms reported regarding the musculoskeletal system. 16:22 Reassessment: Patient appears in no apparent distress at this time. Patient and/or kr3 family updated on plan of care and expected duration. Pain level reassessed. Patient is alert, oriented x 3, equal unlabored respirations, skin warm/dry/pink. pt stated" this is my first mothers day with out my , I also have lost 2 of my kids and the other one is blind, on dialysis and loosing her hearing. It has been rough for me". 17:11 Reassessment: Patient appears in no apparent distress at this time. Patient and/or kr3 family updated on plan of care and expected duration. Pain level reassessed. Patient is alert, oriented x 3, equal unlabored respirations, skin warm/dry/pink. 18:49 Reassessment: Patient appears in no apparent distress at this time. Patient and/or kr3 family updated on plan of care and expected duration. Pain level reassessed. Patient is alert, oriented x 3, equal unlabored respirations, skin warm/dry/pink. 19:10 General: Appears in no apparent distress. comfortable, obese, well groomed, well pf1 developed, Behavior is calm, cooperative, appropriate for age, quiet. Pain: Denies pain. Neuro: Level of Consciousness is awake, alert, obeys commands, Oriented to person, place, time, situation. Cardiovascular: Capillary refill < 3 seconds Patient's skin is warm and dry. Rhythm is sinus rhythm. Respiratory: Reports shortness of breath at rest Airway is patent Respiratory effort is even, unlabored, Respiratory pattern is regular, symmetrical. Respiratory: Patient is currently on 02 3LNC. GI: No deficits noted. No signs and/or symptoms were reported involving the gastrointestinal system. Abdomen is round non-distended. : No deficits noted. No signs and/or symptoms were reported regarding the genitourinary system. : patient has a pure wick placed. EENT: No deficits noted. No signs and/or symptoms were reported regarding the EENT system. EENT: No deficits noted. No signs and/or symptoms were reported regarding the EENT system. Derm: No deficits noted. No signs and/or symptoms reported regarding the dermatologic system. Musculoskeletal: Circulation, motion, and sensation intact. Capillary refill < 3 seconds, Swelling present in right leg and left leg with 4+ pitting edema. Vital Signs: 13:54 BP 186 / 120; Pulse 92; Resp 18; Temp 98.4(TE); Pulse Ox 94% on R/A; Weight 117.93 kg; hb Height 5 ft. 5 in. ; Pain 9/10; 15:10 BP 183 / 106; Pulse 84; Resp 20; Pulse Ox 100% on R/A; kr3 15:12 BP 183 / 106; Pulse 86; Resp 18; Pulse Ox 96% on R/A; ld1 16:22 BP 188 / 111; Pulse 88; Resp 18; Pulse Ox 96% on R/A; kr3 18:49 BP 175 / 85; Pulse 92; Resp 20; Pulse Ox 93% on R/A; kr3 19:14 BP 162 / 89; Pulse 87; Resp 15; Temp 98.2; Pulse Ox 97% on 3 lpm NC; Pain 0/10; pf1 13:54 Body Mass Index 43.26 (117.93 kg, 165.1 cm) hb 13:54 Pain Scale: Adult hb 19:14 Pain Scale: Adult pf1 ED Course: 13:46 Patient arrived in ED. ts1 13:47 Diya Good FNP-C [facility] kb 13:47 Haile Vitale MD is Attending Physician. kb 13:54 Arm band placed on. hb 13:55 Triage completed. hb 14:05 Bed in low position. Call light in reach. Side rails up X2. kr3 14:32 Nicki Hernandez, RN is Primary Nurse. kr3 15:03 XRAY Chest (1 view) In Process Unspecified. EDMS 15:10 Inserted saline lock: 22 gauge in right antecubital area, using aseptic technique. kr3 Blood collected. 16:58 Bib Medley MD is Hospitalizing Provider. kb 17:10 placed purewick for patient due to trouble ambulating to bathroom and receiving LASIK. kr3 19:42 No provider procedures requiring assistance completed. Patient admitted, IV remains in pf1 place. Administered Medications: 17:08 Drug: Ondansetron IVP 4 mg Route: IVP; Site: right antecubital; kr3 18:50 Follow up: Response: No adverse reaction kr3 17:09 Drug: Furosemide IVP 40 mg Route: IVP; Site: right antecubital; kr3 18:50 Follow up: Response: No adverse reaction kr3 17:09 Drug: morphine IVP or IV 4 mg Route: IVP; Infused Over: 4 mins; Site: right antecubital;kr3 18:50 Follow up: Response: No adverse reaction kr3 18:50 Follow up: Response: RASS: Alert and Calm (0) kr3 Medication: 19:43 VIS not applicable for this client. pf1 Output: 19:13 Urine: 400ml (Voided); Total: 400ml. pf1 Outcome: 16:58 Decision to Hospitalize by Provider. kb 19:33 Admitted to Med/surg accompanied by tech, via stretcher, room 208, with oxygen, with pf1 chart, Report called to RE Nicholson 19:33 Condition: stable pf1 19:33 Instructed on the need for admit, Demonstrated understanding of instructions. 19:43 Patient left the ED. pf1 Signatures: Dispatcher [employer] EDMS Diya Good FNP-C FNP-Brooke Amezcua RN RN Stephanie Rivera RN RN ld1 Nicki Hernandez RN RN kr3 Jennifer leiva RN RN pf1 Sravanthi Woodward, SKYLAR PAS ts1 Corrections: (The following items were deleted from the chart) 13:55 13:52 Chief complaint: BLE swelling x 1 week, SOB since last night. hb hb 16:22 15:09 Reassessment: Patient appears in no apparent distress at this time. Patient kr3 and/or family updated on plan of care and expected duration. Pain level reassessed. Patient is alert, oriented x 3, equal unlabored respirations, skin warm/dry/pink. pt stated" this is my first mothers day with out my , I also have lost 2 of my kids and the other one is blind, on dialysis and loosing her hearing. It has been rough for me" kr3
--- NOTE | 2022-06-26 16:58 | EDPHYS ---
Physician Documentation [facility] Name: Blanka Ferrell Age: 71 yrs Sex: Female : 1950 Arrival Date: 06/26/2022 Time: 13:45 Bed 5 Private MD: ED Physician Haile Vitale HPI: 06/26 20:17 This 71 yrs old Black Female presents to ER via Wheelchair with complaints of Shortness kb Of Breath. 20:17 The patient has shortness of breath at rest. Onset: The symptoms/episode began/occurred kb last night. Duration: The symptoms are continuous. The patient's shortness of breath is aggravated by exertion, supine position. Associated signs and symptoms: Pertinent positives: chest pain, swelling. Severity of symptoms: At their worst the symptoms were moderate in the emergency department the symptoms are unchanged. The patient has experienced similar episodes in the past. The patient has not recently seen a physician. Pt reports swelling for about a week and shortness of breath that started last night. Historical: - Allergies: 13:53 Imitrex; hb - PMHx: 13:53 Anxiety; Chronic obstructive lung disease; Congestive heart failure; Diabetes - IDDM; hb Hypertension; Migraines; Thyroid problem; TIA; - PSHx: 13:53 section; Cholecystectomy; hysterectomy; hb - Immunization history:: Adult Immunizations up to date. ROS: 20:17 Constitutional: Negative for fever, chills, and weight loss. kb 20:17 Cardiovascular: Positive for chest pain, edema. 20:17 Respiratory: Positive for dyspnea on exertion, orthopnea, shortness of breath. 20:17 All other systems are negative. Exam: 20:17 Constitutional: This is a well developed, well nourished patient who is awake, alert, kb and in no acute distress. Head/Face: Normocephalic, atraumatic. ENT: Moist Mucous membranes Respiratory: Respirations even and unlabored. No increased work of breathing. Talking in full sentences Abdomen/GI: Soft, non-tender. No distention Skin: Warm, dry with normal turgor. Normal color. MS/ Extremity: Pulses equal, no cyanosis. Neurovascular intact. Full, normal range of motion. Neuro: Awake and alert, GCS 15, oriented to person, place, time, and situation. Moves all extremities. Normal gait. 20:17 Cardiovascular: Edema: 1+ edema to level of left foot and right foot. Vital Signs: 13:54 BP 186 / 120; Pulse 92; Resp 18; Temp 98.4(TE); Pulse Ox 94% on R/A; Weight 117.93 kg; hb Height 5 ft. 5 in. ; Pain 9/10; 15:10 BP 183 / 106; Pulse 84; Resp 20; Pulse Ox 100% on R/A; kr3 15:12 BP 183 / 106; Pulse 86; Resp 18; Pulse Ox 96% on R/A; ld1 16:22 BP 188 / 111; Pulse 88; Resp 18; Pulse Ox 96% on R/A; kr3 18:49 BP 175 / 85; Pulse 92; Resp 20; Pulse Ox 93% on R/A; kr3 19:14 BP 162 / 89; Pulse 87; Resp 15; Temp 98.2; Pulse Ox 97% on 3 lpm NC; Pain 0/10; pf1 13:54 Body Mass Index 43.26 (117.93 kg, 165.1 cm) hb 13:54 Pain Scale: Adult hb 19:14 Pain Scale: Adult pf1 MDM: 13:48 Patient medically screened. kb 20:23 Data reviewed: vital signs, nurses notes. kb 20:23 Differential diagnosis: CHF exacerbation, Myocardial Infarction pulmonary edema. kb Consideration of Admission/Observation Patient was admitted/placed on observation. Management of patient was discussed with the following: Hospitalist: Dr Medley accepts pt for admission. Care significantly affected by the following chronic conditions: Congestive Heart Failure, Chronic Obstructive Pulmonary Disease. Counseling: I had a detailed discussion with the patient and/or guardian regarding: the historical points, exam findings, and any diagnostic results supporting the discharge/admit diagnosis, lab results, radiology results, the need for further work-up and treatment in the hospital. 06/26 13:55 Order name: Basic Metabolic Panel; Complete Time: 15:50 kb 06/26 13:55 Order name: CBC with Diff; Complete Time: 15:35 kb 06/26 13:55 Order name: LFT's; Complete Time: 15:50 kb 06/26 13:55 Order name: Magnesium; Complete Time: 15:50 kb 06/26 13:55 Order name: NT PRO-BNP; Complete Time: 15:50 kb 06/26 13:55 Order name: Troponin HS; Complete Time: 15:50 kb 06/26 16:57 Order name: Basic Metabolic Panel EDMS 06/26 16:57 Order name: Basic Metabolic Panel EDMS 06/26 16:57 Order name: CBC with Automated Diff EDMS 06/26 16:57 Order name: CBC with Automated Diff EDMS 06/26 16:57 Order name: Magnesium EDMS 06/26 16:57 Order name: Magnesium EDMS 06/26 16:57 Order name: Phosphorus EDMS 06/26 16:57 Order name: Phosphorus EDMS 06/26 16:57 Order name: Troponin High Sensitivity EDMS 06/26 16:57 Order name: Troponin High Sensitivity EDMS 06/26 13:55 Order name: XRAY Chest (1 view); Complete Time: 15:56 kb 06/26 13:55 Order name: EKG; Complete Time: 13:56 kb 06/26 16:57 Order name: Heart Healthy EDMS 06/26 13:55 Order name: Cardiac monitoring; Complete Time: 15:00 kb 06/26 13:55 Order name: EKG - Nurse/Tech; Complete Time: 14:23 kb 06/26 13:55 Order name: IV Saline Lock; Complete Time: 15:00 kb 06/26 13:55 Order name: Labs collected and sent; Complete Time: 15:00 kb 06/26 13:55 Order name: O2 Per Protocol; Complete Time: 14:32 kb 06/26 13:55 Order name: O2 Sat Monitoring; Complete Time: 14:32 kb Administered Medications: 17:08 Drug: Ondansetron IVP 4 mg Route: IVP; Site: right antecubital; kr3 18:50 Follow up: Response: No adverse reaction kr3 17:09 Drug: Furosemide IVP 40 mg Route: IVP; Site: right antecubital; kr3 18:50 Follow up: Response: No adverse reaction kr3 17:09 Drug: morphine IVP or IV 4 mg Route: IVP; Infused Over: 4 mins; Site: right antecubital;kr3 18:50 Follow up: Response: No adverse reaction kr3 18:50 Follow up: Response: RASS: Alert and Calm (0) kr3 Disposition Summary: 06/26/22 16:58 Hospitalization Ordered Hospitalization Status: Observation kb Provider: Bib Medley Location: Telemetry/MedSurg (observation) kb Condition: Stable kb Problem: new kb Symptoms: are unchanged kb Bed/Room Type: Standard kb Room Assignment: 208(06/26/22 19:34) cg Diagnosis - Chest pain, unspecified kb - Combined systolic (congestive) and diastolic (congestive) heart failure kb Forms: - Medication Reconciliation Form kb - SBAR form kb Signatures: Dispatcher [employer] EDDiya De Oliveira, KASEY-Nori Machado RN RN Brooke Trejo RN RN Nicki Hernandez RN RN kr3 Corrections: (The following items were deleted from the chart) 19:34 16:58 kb cg
--- NOTE | 2022-06-26 17:01 | P.HP ---
Certification for Inpatient Patient admitted to: Observation With expected LOS: <2 Midnights Patient will require the following post-hospital care: None Practitioner: I am a practitioner with admitting privileges, knowledge of patient current condition, hospital course, and medical plan of care. Services: Services provided to patient in accordance with Admission requirements found in Title 42 Section 412.3 of the Code of Federal Regulations Patient History Date of Service: 06/26/22 Primary Care Provider: Reynaldo Reason for admission: Chest Pain History of Present Illness: Ms. Blanka Ferrell is a pleasant 71-year-old female who has a past medical history of type 2 diabetes mellitus, hypertension, chronic systolic congestive heart failure, depression, anxiety, gastroesophageal reflux disease, and migraine headaches who presents to the [facility] Emergency Department for shortness of breath. She reports that, over the last 1-2 days, she has been experiencing progressively worsening shortness of breath. She states that this has been associated with orthopnea. She denies any obvious inciting or alleviating factors. She has not tried taking any medications for her symptoms. On review of systems, she denies any fevers, chills, headaches, dizziness, syncope, weakness, chest pain, palpitations, wheezing, cough, abdominal pain, nausea/vomiting, diarrhea, or any other symptoms. She presented to the Emergency Department for further evaluation. Upon presentation, her vital signs were notable for a blood pressure of 188/111. Her laboratory studies were notable for an NT-Pro BNP 3,581. Her EKG revealed a left bundle branch block, present on prior EKGs. Her chest x-ray revelaed, "findings likely representing pulmonary edema." In the Emergency Department, she was given furosemide. She was admitted to the General Internal Medicine service for further evaluation. Allergies sumatriptan [From Imitrex] Allergy (Intermediate, Verified 01/28/19 22:40) Unknown Home medications list reviewed: Yes Home Medications: Albuterol Inhaler [Ventolin Inhaler*] 2 puff IH Q6H PRN 06/21/21 Alprazolam [Xanax] 0.5 mg PO BID 06/21/21 Escitalopram [Lexapro*] 10 mg PO DAILY 06/21/21 Fluticasone/Vilanterol [Breo Ellipta 200-25 Mcg INH] 1 each IH DAILY 06/21/21 Furosemide [Lasix*] 80 mg PO BID 06/21/21 Losartan Potassium [Cozaar*] 50 mg PO BID 06/21/21 Spironolactone 50 mg PO BID 06/21/21 Temazepam 22.5 mg PO BEDTIME PRN 06/21/21 Doxepin HCl 75 mg PO BEDTIME 08/16/21 Gabapentin 300 mg PO TID 08/16/21 Apixaban [Eliquis] 5 mg PO BID 06/26/22 Doxazosin [Cardura] 4 mg PO BID 06/26/22 Metoprolol Tartrate 200 mg PO BID 06/26/22 - Past Medical/Surgical History Diabetic: Yes -: HTN -: Migraines -: TIA -: CHF -: GERD -: diverticulitis -: DM -: Depression/anxiety -: Lf ankle sx -: Hernia repair x2 -: Cholecystectomy -: Hysterectomy Psychosocial/ Personal History: Patient lives at home with her daughter. - Family History Mother -: Heart disease - Social History Smoking Status: Never smoker Alcohol use: No CD- Drugs: No Caffeine use: Yes Review of Systems General: Unremarkable Eyes: Unremarkable ENT: Unremarkable Respiratory: Shortness of Breath Cardiovascular: Orthopnea, Edema Gastrointestinal: Unremarkable Genitourinary: Unremarkable Musculoskeletal: Unremarkable Integumentary: Unremarkable Neurological: Unremarkable Lymphatics: Unremarkable Physical Examination - Vital Signs Temperature: 98.4 F Blood Pressure: 188/111 Pulse: 88 Respirations: 18 Pulse Ox (%): 96 (room air) - Physical Exam General: Alert, In no apparent distress, Oriented x3 HEENT: Atraumatic, Mucous membr. moist/pink, Sclerae nonicteric Neck: JVD distended Respiratory: Diminished, Crackles/rales (bibasilar) Cardiovascular: Regular rate/rhythm, Normal S1 S2, No gallops, No rubs, No murmurs, Edema (2+ BLE) Gastrointestinal: Normal bowel sounds, Soft and benign, Non-distended, No tenderness, No rebound, No guarding Musculoskeletal: No clubbing Integumentary: No rashes Neurological: Normal speech, Normal affect - Studies Laboratory Data (last 24 hrs) 06/26/22 15:00: WBC 5.00, Hgb 11.2 L, Hct 36.4, Plt Count 292 06/26/22 15:00: Sodium 138, Potassium 4.2, BUN 15, Creatinine 1.08 H, Glucose 138 H, Magnesium 1.8, Total Bilirubin 0.6, AST 22, ALT 20, Alkaline Phosphatase 127 H Assessment and Plan - Plan # Hypertensive Urgency with Acute on Chronic Decompensated Systolic Congestive Heart Failure with Reduced Ejection Fraction - Consult Cardiology - recommendations appreciated - Chest x-ray = "findings likely representing pulmonary edema." - Last transthoracic echocardiogram (06/19/2021) = "mild global hypokinesis. ejection fraction 41-45%. no effusion." - Diuresis with IV furosemide for today - Continue home metoprolol, losartan, doxazosin, spironolactone - Daily weights - Strict I/O - Cardiac diet, 1.5 L fluid restriction, 2 g Na restriction # Chronic Atrial Fibrillation # History of Cerebrovascular Accident Her [id number] = 6 (CHF=1, HTN=1, DM=1, CVA=1, Age 65-74=1, Sex=1), which warrants anticoagulation. - Consult Cardiology - recommendations appreciated - Continue home metoprolol, apixaban # Type 2 Diabetes Mellitus complicated by Neuropathy - Ordered Hgb A1c - Correction scale insulin - Continue home gabapentin # Depression # Anxiety - Continue home escitalopram, alprazolam, doxepin # Insomnia - Continue home PRN temazepam Bib Medley M.D. Discharge Plan: Home - Advance Directives Does patient have a Living Will: Yes Does patient have a Durable POA for Healthcare: No
[2022-06-26] MEDS ORDERED: ALBUTEROL INHALER 60 PUFF/8 GM IH PRN (17:43)
[2022-06-26] MEDS ORDERED: FUROSEMIDE 40 MG/4 ML VIAL IV ONE (17:47)
[2022-06-26] MEDS ORDERED: D50W 25 GM/50 ML SYRINGE IV PRN (17:49)
[2022-06-26] MEDS ORDERED: GLUCAGON 1 MG/VIAL IM PRN (17:49)
[2022-06-26] MEDS ORDERED: TEMAZEPAM 22.5 MG PO PRN (17:50)
[2022-06-26] MEDS ORDERED: D10W 125 ML IV PRN (18:08)
[2022-06-26] MEDS ORDERED: DOXAZOSIN 2 MG TAB ONE (20:15)
[2022-06-26] MEDS: GABAPENTIN 300 MG CAP PO SCH (20:24)
[2022-06-26] MEDS: METOPROLOL TAR 50 MG TAB PO SCH (20:26)
[2022-06-26] MEDS: DOXAZOSIN 4 MG TAB PO SCH (20:26)
[2022-06-26] MEDS: INSULIN -REGULAR HUMAN 50 UNIT/0.5 ML ML SQ SCH (20:26)
[2022-06-26 20:39] VITALS: BMI 42.1
[2022-06-26] MEDS ORDERED: HOME MED 1 EA UNK (Doxepin Hcl [Doxepin Hcl] 50 MG Capsule) PO SCH (21:00)
[2022-06-26] MEDS ORDERED: LOSARTAN POTASSIUM 50 MG TABLET PO SCH ×2 (21:00)
[2022-06-26] MEDS ORDERED: SPIRONOLACTONE 25 MG TABLET PO SCH (21:00)
[2022-06-26] MEDS ORDERED: APIXABAN 5 MG TABLET PO SCH (21:00)
[2022-06-26] MEDS ORDERED: ALPRAZOLAM 0.5 MG TABLET PO SCH (21:00)
[2022-06-26] MEDS ORDERED: TEMAZEPAM 15 MG CAP PO PRN (22:29)
[2022-06-26] MEDS ORDERED: DOXEPIN HCL 25 MG CAP PO SCH (22:30)
[2022-06-26] MEDS ORDERED: ALPRAZOLAM 0.5 MG TABLET PO PRN (22:32)
[2022-06-27 02:04] LABS: Arterial Blood Carboxyhemoglob 1.4 % (0-1.5); Blood Gas Oxyhemoglobin 86.7 % (94-97); Blood O2 Saturation 89.1 % (92-98.5)
[2022-06-27 06:29] LABS: Absolute Lymphocytes (CBC) 0.4 K/uL (0.7-4.9); Hematocrit 38.1 % (36.0-45.0); Lymphocytes % 6.2 % (15.3-44.8); MCV 79.7 fL (80-100); MPV 8.1 fL (7.6-11.3); RBC Red Blood Cell Count 4.78 M/uL (3.86-4.86)
[2022-06-27 06:46] LABS: Phosphorus 5.5 mg/dL (2.5-4.9); Potassium 5.7 mEq/L (3.5-5.1)
[2022-06-27] MEDS: INSULIN -REGULAR HUMAN 50 UNIT/0.5 ML ML SQ SCH ×4 (07:30→21:00)
[2022-06-27 08:28] LABS: Potassium 5.6 mEq/L (3.5-5.1)
[2022-06-27] MEDS: GABAPENTIN 100 MG CAP PO SCH ×2 (09:00→21:00)
[2022-06-27] MEDS: DOXAZOSIN 4 MG TAB PO SCH (09:00)
[2022-06-27] MEDS: METOPROLOL TAR 50 MG TAB PO SCH (09:00)
[2022-06-27] MEDS: GABAPENTIN 300 MG CAP PO SCH (09:00)
[2022-06-27] MEDS ORDERED: FUROSEMIDE 40 MG/4 ML VIAL IV SCH (09:00)
[2022-06-27] MEDS ORDERED: SODIUM ZIRCONIUM CYCLOSILICATE 10 GM/PKT PO SCH (09:20)
[2022-06-27] MEDS ORDERED: D10W 250 ML IV SCH (09:22)
[2022-06-27] MEDS ORDERED: INSULIN -REGULAR HUMAN 50 UNIT/0.5 ML ML IV ONE (09:30)
[2022-06-27] MEDS ORDERED: SODIUM ZIRCONIUM CYCLOSILICATE 10 GM/PKT PO ONE (11:00)
--- NOTE | 2022-06-27 11:11 | P.CNS ---
Date of Consult: 06/27/22 Reason for Consult: MAJOR, hyperkalemia Requesting Physician: Bib Medley Primary Care Provider: Reynaldo Chief Complaint: Chest Pain History of Present Illness: Pls note history largely obtained from the records as pt is lethargic and altered. Pt is a 71-year-old AAF female who has a past medical history of type 2 diabetes mellitus, hypertension, chronic (systolic) congestive heart failure on Lasix and Aldactone at home, reported depression/anxiety who yesterday presented to the [facility] Emergency Department for shortness of breath. Which had been apparently progressively getting worse. CXR revealed some pulm vascular congestion. BP elevated on admission. Her laboratory studies were notable for an NT-Pro BNP 3,581. Her EKG revealed a left bundle branch block, present on prior EKGs. Pt was initiated on IV lasix by the hospitalist team and other home meds resumed, BP did substantially improve and while no ivan hypotension observed, this AM, pt's renal function tests are sig worse and pt is lethargic. Allergies sumatriptan [From Imitrex] Allergy (Intermediate, Verified 06/26/22 20:20) Unknown Home Medications: Albuterol Inhaler [Ventolin Inhaler*] 2 puff IH Q6H PRN 06/21/21 Alprazolam [Xanax] 0.5 mg PO BID 06/21/21 Escitalopram [Lexapro*] 10 mg PO DAILY 06/21/21 Fluticasone/Vilanterol [Breo Ellipta 200-25 Mcg INH] 1 each IH DAILY 06/21/21 Furosemide [Lasix*] 80 mg PO BID 06/21/21 Spironolactone 50 mg PO BID 06/21/21 Doxepin HCl 150 mg PO BEDTIME 08/16/21 Gabapentin 300 mg PO TID 08/16/21 Apixaban [Eliquis] 5 mg PO BID 06/26/22 Doxazosin [Cardura] 4 mg PO BID 06/26/22 Metoprolol Tartrate 200 mg PO BID 06/26/22 Temazepam 30 mg PO BEDTIME 06/26/22 - Past Medical/Surgical History Diabetic: Yes -: HTN -: Migraines -: TIA -: CHF -: GERD -: diverticulitis -: DM -: Depression/anxiety -: Lf ankle sx -: Hernia repair x2 -: Cholecystectomy -: Hysterectomy Psychosocial/ Personal History: Patient lives at home with her daughter. - Family History Mother Medical History: Heart disease - Social History Smoking Status: Never smoker Alcohol use: No CD- Drugs: No Caffeine use: Yes Review of Systems is unable to be obtained Physical Examination Temp Pulse Resp BP Pulse Ox 96.7 F L 54 18 128/94 H 96 06/27/22 08:00 06/27/22 08:00 06/27/22 08:00 06/27/22 08:00 06/27/22 08:00 General: In no apparent distress, Other (Lethargic but easily arousable) HEENT: Atraumatic, Normocephalic Neck: Supple Respiratory: Normal air movement, Other (Mildly diminished at bases, LFNC) Cardiovascular: Regular rate/rhythm, Edema Gastrointestinal: Soft and benign, No tenderness Musculoskeletal: Swelling, Other (2+ pitting LE edema, shins are non tender, LE cool to touch) Integumentary: No rashes Neurological: Other (Lethargic, opens eyes briefly, responds briefly but confused, disoriented, follows some single step commands, generalized weakness) Laboratory Data (last 24 hrs) 06/26/22 15:00: WBC 5.00, Hgb 11.2 L, Hct 36.4, Plt Count 292 06/26/22 15:00: Sodium 138, Potassium 4.2, BUN 15, Creatinine 1.08 H, Glucose 138 H, Magnesium 1.8, Total Bilirubin 0.6, AST 22, ALT 20, Alkaline Phosphatase 127 H Conclusions/Impression: A/P) 1. Stage II MAJOR with Cr level rise > 0.5 mg/dl over the past 24h 2nd to likely relative BP lower, normotensive renal ischemia +/- CRS/other. No reports of any large volume diuresis. 2. Will place on hold all scheduled anti hypertensives and allow BP to recover, no ivan hypotension. 3. Will hold off intra vascular vol challenge, given her presentation with vasc congestion, HF, volume overload 4. Will medically treat hyperkalemia 2nd to MAJOR/aldactone use/other and f/u on level this afternoon. 5. Will obtain updated echo, echo last year revealed left ventricular dysfunction and pt has presented with acute on chronic systolic CHF 6. Pt is altered likely 2nd to medications in part, pt at home was on a number of sedating medications/INFUSION NURSE depressants, discussed with Dr. Medley. Will hold all such medications at this time and then review potential interacti ons/polypharmacy and reconcile accordingly. Mason Reyes MD, PRASAD
[2022-06-27] MEDS: APIXABAN 5 MG TABLET PO SCH ×2 (11:32→21:34)
[2022-06-27] MEDS: ESCITALOPRAM 20 MG TAB PO SCH (11:33)
--- NOTE | 2022-06-27 13:49 | P.PN ---
Subjective Date of Service: 06/27/22 Primary Care Provider: Reynaldo Chief Complaint: Chest Pain This morning, she appears lethargic. She is alert and oriented x 3, but states that she is tired. She reports improvement in her shortness of breath. Her labs look significantly worse this morning. She has developed an acute kidney injury with hyperkalemia. I have notified Dr. Reyes. She denies any chest pain or palpitations. Review of Systems 10-point ROS is otherwise unremarkable General: Weakness (generalized), Malaise Respiratory: Shortness of Breath Cardiovascular: Orthopnea, Edema Physical Examination - Vital Signs Temperature: 97.4 F Blood Pressure: 135/77 Pulse: 50 Respirations: 20 Pulse Ox (%): 96 - Studies Laboratory Data (last 24 hrs) 06/27/22 08:00: Sodium 135 L, Potassium 5.6 H, BUN 27 H, Creatinine 2.23 H, Glucose 195 H 06/27/22 06:05: Sodium 135 L, Potassium 5.7 H D, BUN 26 H, Creatinine 2.04 H, Glucose 195 H, Phosphorus 5.5 H, Magnesium 2.0 06/27/22 06:05: WBC 7.10, Hgb 11.8 L, Hct 38.1, Plt Count 298 06/26/22 15:00: WBC 5.00, Hgb 11.2 L, Hct 36.4, Plt Count 292 06/26/22 15:00: Sodium 138, Potassium 4.2, BUN 15, Creatinine 1.08 H, Glucose 138 H, Magnesium 1.8, Total Bilirubin 0.6, AST 22, ALT 20, Alkaline Phosphatase 127 H Assessment And Plan - Plan - Physical Exam General: Alert, In no apparent distress, lethargic but oriented x3 HEENT: Atraumatic, Mucous membr. moist/pink, Sclerae nonicteric Neck: JVD distended Respiratory: Diminished, Faint crackles/rales (bibasilar) Cardiovascular: Regular rate/rhythm, No murmurs, Edema (1-2+ BLE) Gastrointestinal: Normal bowel sounds, Soft, Non-distended, No tenderness, No rebound, No guarding Musculoskeletal: No clubbing Integumentary: No rashes Neurological: Normal speech, Normal affect # KDIGO Stage II Acute Kidney Injury with Hyperkalemia - Consulted Nephrology and spoke with Dr. Reyes - recommendations appreciated - Suspects that MAJOR is due to relative hypotension - Hold home losartan, spironolactone, doxazosin, metoprolol - Ordered insulin + dextrose and Lokelma - Potassium = 4.2 -> 5.7 -> 5.6 - Creatinine = 1.08 -> 2.04 -> 2.23 - Urinalysis = pending - Obtain renal ultrasound - Monitor creatinine and urine output - Renally dose medications # Hypertensive Urgency with Acute on Chronic Decompensated Systolic Congestive Heart Failure with Reduced Ejection Fraction - Consult Cardiology - recommendations appreciated - Chest x-ray = "findings likely representing pulmonary edema." - Last transthoracic echocardiogram (06/19/2021) = "mild global hypokinesis. ejection fraction 41-45%. no effusion." - Hold IV furosemide today given MAJOR - Hold home anti-hypertensives due to MAJOR and relative hypotension - Daily weights - Strict I/O - Cardiac diet, 1.5 L fluid restriction, 2 g Na restriction # Lethargy - suspect due to Polypharmacy - This morning, she appears more lethargic than yesterday - ABG = pH 7.31, PCO2 47.9, PO2 67.7 - Although she was only give her home medications (which were confirmed by her PCP's office notes), it seems that we may need to scale back and monitor her closely - For now, will hold home temazepam, alprazolam, doxepin, doxazosin and reduce dose of gabapentin # Chronic Atrial Fibrillation # History of Cerebrovascular Accident Her [id number] = 6 (CHF=1, HTN=1, DM=1, CVA=1, Age 65-74=1, Sex=1), which warrants anticoagulation. - Consult Cardiology - recommendations appreciated - Continue home metoprolol, apixaban # Type 2 Diabetes Mellitus complicated by Neuropathy - Ordered Hgb A1c - Correction scale insulin - Continue home gabapentin # Depression # Anxiety - Continue home escitalopram, alprazolam, doxepin # Insomnia - Continue home PRN temazepam Bib Medley M.D.
[2022-06-27 14:25] LABS: Arterial Blood Carboxyhemoglob 1.7 % (0-1.5); Blood Gas Oxyhemoglobin 90.6 % (94-97); Blood O2 Saturation 93.3 % (92-98.5)
--- NOTE | 2022-06-27 14:37 | RAD REPORT ---
EXAM DESCRIPTION: CT - Head Brain Wo Cont - 06/27/2022 2:29 pm CLINICAL HISTORY: AMS Headache, drowsiness COMPARISON: Head Brain Wo Cont dated 02/19/2022; Facial Bones W/ Mpr dated 12/17/2021 TECHNIQUE: All CT scans are performed using dose optimization technique as appropriate and may inclu de automated exposure control or mA/KV adjustment according to patient size. FINDINGS: No intracranial hemorrhage, hydrocephalus or extra-axial fluid collection.Mild generalized brain atrophy is present with mild periventricular and deep white matter chronic microvascular ische guru changes.Old infarct gliosis present left cerebellar hemisphere. The paranasal sinuses and mastoids are clear. The calvarium is intact. IMPRESSION: No acute intracranial abnormality.
--- NOTE | 2022-06-27 14:44 | EKG ---
Test Date: 2022-06-26 Test Time: 14:20:05 Special Educator: JULIANNA MEASUREMENT RESULTS: Intervals: Rate: 87 IN: 164 QRSD: 162 QT: 444 QTc: 534 [place]: P: 40 IN: 164 QRS: -33 T: 120 INTERPRETIVE STATEMENTS: Normal sinus rhythm Left axis deviation Left bundle branch block Abnormal ECG Compared to ECG 04/26/2022 11:42:10 Left-axis deviation now present Electronically Signed On 06-27-22 14:43:04 CDT by Florian Morris
--- NOTE | 2022-06-27 14:51 | CON ---
Date of Consultation: 06/27/2022 Reason For Consultation: Chest pain. History Of Present Illness: This is a 71-year-old very poor historian. Most part of this note is ob tained from the records and the ER records. She apparently has history of diabetes, hypertension, di astolic heart failure, obesity, migraine headaches, who presented to the emergency room for worsening shortness of breath and orthopnea, lower extremity edema. Interviewing her this morning, she said s he does not have any chest pain. She claims that she feels better since admission. Past Medical History: As outlined above in the HPI. Medications: Refer to reconciliation sheet for detailed list. Allergies: SUMATRIPTAN. Family History: No premature coronary artery disease or cancer. Social History: She does not smoke or drink. Does not use any drugs. Review of Systems: All systems reviewed and they were negative except what mentioned in HPI. Physical Examination: Vital Signs: Showed temperature is 97.4, pulse 50, breathing at 18, blood pressure 135/70. Her bloo d pressure on arrival was 186/120. General: This is an elderly female, no apparent distress. Head and Neck: Pupils are equal, reactive to light. Intact eye movements. No JVD. No cervical lym phadenopathy. Neck is supple. Thyroid is not enlarged. Lungs: Decreased breathing sounds bilaterally. No accessory muscle use or muscle retraction. Heart: Regular rate and rhythm. No extra sounds. Abdomen: Soft, nontender. Bowel sounds positive. No organomegaly. No masses or hernia. No rigidi ty or rebound. Extremities: No clubbing or cyanosis. Intact pulses. Skin: No rash. Neurologic: Alert, awake with confusion. No acute focal deficits appreciated. Lymph Nodes: No cervical or axillary lymphadenopathy. Investigations: BUN 27, creatinine is 2.3. NT-proBNP was 3581. Chest x-ray, pulmonary edema. Assessment And Recommendations: 1.Shortness of breath with chest x-ray suggestive of pulmonary edema. Received Lasix, however, merlin tinine jumped from 1.0 to 2.23. At this point, recommend to hold Lasix and obtain echocardiogram jarrte orrow to further evaluate and further recommendations will follow accordingly. 2.Hypertensive crisis. She needs a good blood pressure control. Today, her blood pressure is contr olled. Continue current treatment. I will definitely stop the Aldactone for now due to the acute re nal failure. 3.Acute renal failure. Hold all diuretics. Obtain echo in the morning. Nephrology is on board. 4.Atrial fibrillation, chronic. Rate is controlled on Eliquis. Continue current management. June n eed to adjust the dose of Eliquis based on the kidney function to 2.5 mg twice a day. SR/MODL Voice ID: [id number] Report ID: [id number]
--- NOTE | 2022-06-27 17:09 | RAD REPORT ---
EXAM DESCRIPTION: US - Renal Ultrasound-Complete - 06/27/2022 4:59 pm CLINICAL HISTORY: MAJOR Flank pain COMPARISON: <Comparisons> FINDINGS: The right kidney measures 11.7 x 5.6 x 5.1 cm. No hydronephrosis, focal mass or perinephric fluid. The left kidney is obscured by bowel gas. The urinary bladder is incompletely distended without gross abnormality seen. IMPRESSION: Negative right kidney. Nonvisualized left kidney.
[2022-06-27] MEDS ORDERED: FUROSEMIDE 40 MG/4 ML VIAL IV ONE (20:00)
[2022-06-27] MEDS ORDERED: GABAPENTIN 300 MG CAP PO SCH (21:00)
[2022-06-27] MEDS ORDERED: GABAPENTIN 100 MG CAP PO SCH (21:00)
[2022-06-27] MEDS: MORPHINE 2 MG/ML SYR IV PRN (21:39)
[2022-06-28 02:07] LABS: Specific Gravity 1.012 (1.005-1.030); Urine Bacteria <20 /HPF (<20); Urine Bilirubin NEGATIVE (Negative); Urine Blood 2+ (Negative); Urine Clarity Turbid (Clear); Urine Color Yellow (Yellow); Urine Glucose NEGATIVE (Negative); Urine Mucus Slight /HPF (None Seen); Urine Protein 1+ (Negative); Urine RBC 21-50 /HPF (None Seen); Urine Urobilinogen 2+ (Normal)
[2022-06-28 04:10] LABS: Absolute Lymphocytes (CBC) 0.9 K/uL (0.7-4.9); Hematocrit 34.1 % (36.0-45.0); Lymphocytes % 13.2 % (15.3-44.8); MCV 79.6 fL (80-100); RBC Red Blood Cell Count 4.29 M/uL (3.86-4.86)
[2022-06-28 04:30] LABS: Albumin 2.7 g/dL (3.4-5.0); Bilirubin Total 0.5 mg/dL (0.2-1.0); Magnesium 1.9 mg/dL (1.6-2.4); Phosphorus 5.7 mg/dL (2.5-4.9); Potassium 4.9 mEq/L (3.5-5.1); Protein, Total 6.8 g/dL (6.4-8.2)
[2022-06-28] MEDS: INSULIN -REGULAR HUMAN 50 UNIT/0.5 ML ML SQ SCH ×4 (07:30→20:35)
[2022-06-28] MEDS: APIXABAN 2.5 MG TABLET PO SCH ×2 (08:50→20:33)
[2022-06-28] MEDS: GABAPENTIN 100 MG CAP PO SCH ×2 (08:50→20:33)
[2022-06-28] MEDS: ESCITALOPRAM 20 MG TAB PO SCH (08:50)
[2022-06-28] MEDS: MORPHINE 2 MG/ML SYR IV PRN ×2 (11:17→20:33)
--- NOTE | 2022-06-28 12:23 | ECHO ---
HEIGHT: 5 ft 5 in WEIGHT: 253 lb 2 oz DATE OF STUDY: 06/28/[address]: Bib Medley MD 2-DIMENSIONAL: YES M.MODE: YES DOPPLER: YES COLOR FLOW: YES TDS: NO PORTABLE: YES DEFINITY: NO BUBBLE STUDY: NO DIAGNOSIS: CONGESTIVE HEART FAILURE CARDIAC HISTORY: CATHERIZATION: SURGERY: PROSTHETIC VALVE: PACEMAKER: MEASUREMENTS (cm) DIASTOLIC (NORMALS) SYSTOLIC (NORMALS) IVSd 1.2 (0.6-1.2) LA Diam 5.2 (1.9-4.0) LVEF 33% LVIDd 5.5 (3.5-5.7) LVIDs 4.6 (2.0-3.5) %FS 16% LVPWd 1.2 (0.6-1.2) Ao Diam 3.0 (2.0-3.7) 2 DIMENSIONAL ASSESSMENT: RIGHT ATRIUM: NORMAL LEFT ATRIUM: DILATED RIGHT VENTRICLE: NORMAL LEFT VENTRICLE: NORMAL SIZE TRICUSPID VALVE: NORMAL MITRAL VALVE: STENOTIC PULMONIC VALVE: NORMAL AORTIC VALVE: NORMAL PERICARDIAL EFFUSION: NONE AORTIC ROOT: NORMAL LEFT VENTRICULAR WALL MOTION: SEVERE GLOBAL HYPOKINESIS. DOPPLER/COLOR FLOW: MILD MITRAL STENOSIS - 1.6 CENTIMETERS SQUARED MMILD TRICUSPID REGURGITATION - RIGHT VENTRICULAR SYSTLIC PRESSURE 56mmHg COMMENTS: SEVERE GLOBAL HYPOKINEISS EJECTION FRACTION 33% MILD MITRAL STENOSIS - 1.6 CENTIMETERS SQUARED MODERATE PULMONARY HYPERTENSION 56mmHg LEFT ATRIAL ENLARGEMENT TECHNOLOGIST: NANO SEPULVEDA
--- NOTE | 2022-06-28 17:26 | P.PN ---
Subjective Date of Service: 06/28/22 Primary Care Provider: Reynaldo Chief Complaint: Chest Pain This morning, she is much more alert. She states that her shortness of breath has improved, but she has noticed a decrease in her urine output. She denies any chest pain or palpitations. Review of Systems 10-point ROS is otherwise unremarkable Cardiovascular: Edema Physical Examination - Vital Signs Temperature: 97.9 F Blood Pressure: 155/83 Pulse: 60 Respirations: 17 Pulse Ox (%): 94 Assessment And Plan - Plan - Physical Exam General: Alert, In no apparent distress, Oriented x3 HEENT: Atraumatic, Mucous membr. moist/pink, Sclerae nonicteric Neck: JVD not distended Respiratory: Diminished, Faint crackles/rales (bibasilar) Cardiovascular: Regular rate/rhythm, No murmurs, Edema (1+ BLE) Gastrointestinal: Normal bowel sounds, Soft, Non-distended, No tenderness Musculoskeletal: No clubbing Integumentary: No rashes Neurological: Normal speech, Normal affect # KDIGO Stage II Acute Kidney Injury with Hyperkalemia - Consulted Nephrology and spoke with Dr. Jacobs - recommendations appreciated - Suspects that MAJOR is due to relative hypotension - Hold home losartan, spironolactone, doxazosin, metoprolol - Although these are her home medications and she reported taking them, medication compliance is questionable given her significant drop in blood press ure when these medications were started - Potassium = 4.2 -> 5.7 -> 5.6 -> 4.7 - Creatinine = 1.08 -> 2.04 -> 2.23 -> 2.72 - Urinalysis = 2+ blood, 75 leukocyte esterase, 21-50 RBCs, 5-10 hyaline casts, 1+ protein - Renal ultrasound = "negative right kidney. Nonvisualized left kidney." - Monitor creatinine and urine output - Renally dose medications # Hypertensive Urgency with Acute on Chronic Decompensated Systolic Congestive Heart Failure with Reduced Ejection Fraction # Moderate Pulmonary Hypertension # Mild Mitral Stenosis - Consult Cardiology and spoke with Dr. Burns - recommendations appreciated - Chest x-ray = "findings likely representing pulmonary edema." - Last transthoracic echocardiogram (06/19/2021) = "mild global hypokinesis. ejection fraction 41-45%. no effusion." - Transthoracic echocardiogram (06/28/2022) = "severe global hypokineiss. ejection fraction 33%. mild mitral stenosis 1.6 centimeters squared. moderate pulmonary hypertension 56mmHg. left atrial enlargement" - Diuresis per Nephrology - Hold home anti-hypertensives due to MAJOR and relative hypotension - Daily weights - Strict I/O - Cardiac diet, 1.5 L fluid restriction, 2 g Na restriction # Lethargy - suspect due to Polypharmacy - resolved - Hold home temazepam, alprazolam, doxepin, doxazosin and reduce dose of gabapentin # Chronic Atrial Fibrillation # History of Cerebrovascular Accident Her [id number] = 6 (CHF=1, HTN=1, DM=1, CVA=1, Age 65-74=1, Sex=1), which warrants anticoagulation. 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
--- NOTE | 2022-06-28 21:47 | P.PN ---
Date of Service: 06/28/22 Vital Signs Temp Pulse Resp BP Pulse Ox 97.9 F 60 17 155/83 H 94 06/28/22 17:41 06/28/22 17:41 06/28/22 17:41 06/28/22 17:41 06/28/22 17:41 Medications Albuterol Sulfate (Albuterol Inhaler 60 Puff/8 Gm) 2 puff IH Q6H PRN PRN Reason: SHORTNESS OF BREATH Apixaban (Apixaban 2.5 Mg Tablet) 2.5 mg PO BID [facility] Last Admin: 06/28/22 20:33 Dose: 2.5 mg Doxazosin Mesylate (Doxazosin 4 Mg Tab) 4 mg PO BID [facility] Last Admin: 06/27/22 09:00 Dose: Not Given Doxepin HCl (Doxepin Hcl 25 Mg Cap) 150 mg PO BEDTIME [facility] Last Admin: 06/26/22 22:56 Dose: 150 mg Escitalopram Oxalate (Escitalopram 20 Mg Tab) 10 mg PO DAILY [facility] Last Admin: 06/28/22 08:50 Dose: 10 mg Furosemide (Furosemide 40 Mg/4 Ml Vial) 80 mg IV BIDL [facility] Last Admin: 06/27/22 09:00 Dose: Not Given Gabapentin (Gabapentin 100 Mg Cap) 100 mg PO BID [facility] Last Admin: 06/28/22 20:33 Dose: 100 mg Glucagon (Glucagon 1 Mg/Vial) 1 mg IM 1X PRN PRN Reason: HYPOGLYCEMIA Dextrose (Dextrose 10% Water Iv Soln.) 125 mls @ 0 mls/hr IV PRN PRN; Protocol PRN Reason: HYPOGLYCEMIA Insulin Human Regular (Insulin -Regular Human 50 Unit/0.5 Ml Ml) 0 unit SQ ACHS [facility]; Protocol Last Admin: 06/28/22 20:35 Dose: Not Given Metoprolol Tartrate (Metoprolol Tar 50 Mg Tab) 200 mg PO BID [facility] Last Admin: 06/27/22 09:00 Dose: Not Given Morphine Sulfate (Morphine 2 Mg/Ml Syr) 2 mg IV Q6H PRN PRN Reason: Pain scale 8-10 (Severe) Last Admin: 06/28/22 20:33 Dose: 2 mg Sodium Chloride (Flush Normal Saline 10 Ml) 10 ml IV BID [facility] Last Admin: 06/28/22 20:35 Dose: 10 ml Spironolactone (Spironolactone 25 Mg Tablet) 50 mg PO BID [facility] Last Admin: 06/26/22 20:25 Dose: 50 mg Temazepam (Temazepam 15 Mg Cap) 30 mg PO BEDTIME PRN PRN Reason: INSOMNIA Last Admin: 06/26/22 22:55 Dose: 30 mg Lab Results (last 24 hrs) 06/27/22 06:05: Hemoglobin A1c 8.1 H Assessment/ Plan: Nephrology Nephrology No dyspnea No chest pain SUAZO No acute events overnight Vitals, medications, blood work and imaging reviewed in the chart. NAD. Obese. NCAT. MMM. Neck supple. Normal respiratory effort. RRR. Abd ND. No C/C. LE Edema 2+. No rash. AAO. Normal speech. Cabrera medium Stage II MAJOR may be related to ATN CKD IIIa with proteinuria -No NSAIDs Hyperkalemia -Lokelma prn HTN with CKD/ CHF -Continue Metoprolol & Doxazosin Systolic Diastolic CHF LVEF 33%, A/C Pulmonary HTN -Continue Furosemide and Spironolactone DM II with Polyneuropathy & CKD -Continue Gabapentin Anemia in chronic illness -Monitor H&H Case reviewed with Dr. Medley [id number] LEFT VENTRICULAR WALL MOTION: SEVERE GLOBAL HYPOKINESIS. DOPPLER/COLOR FLOW: MILD MITRAL STENOSIS 1.6 CENTIMETERS SQUARED MMILD TRICUSPID REGURGITATION RIGHT VENTRICULAR SYSTLIC PRESSURE 56mmHg COMMENTS: [id number] SEVERE GLOBAL HYPOKINEISS EJECTION FRACTION 33% MILD MITRAL STENOSIS 1.6 CENTIMETERS SQUARED MODERATE PULMONARY HYPERTENSION 56mmHg LEFT ATRIAL ENLARGEMENT [id number] EXAM DESCRIPTION: US - Renal Ultrasound-Complete - 06/27/2022 4:59 pm CLINICAL HISTORY: MAJOR Flank pain COMPARISON: <Comparisons> FINDINGS: The right kidney measures 11.7 x 5.6 x 5.1 cm. No hydronephrosis, focal mass or perinephric fluid. The left kidney is obscured by bowel gas. The urinary bladder is incompletely distended without gross abnormality seen. IMPRESSION: Negative right kidney. Nonvisualized left kidney. [id number] EXAM DESCRIPTION: RAD - Chest Single View - 06/26/2022 3:01 pm CLINICAL HISTORY: Chest pain;Dyspnea COMPARISON: Chest Single View dated 04/26/2022; Chest Single View dated 02/19/2022; Chest Single View dated 09/30/2021; Chest Single View dated 09/10/2021; Abdomen Pelvis W Contrast dated 02/19/2022 FINDINGS: Lines: None. Lungs: Diffuse prominence of the pulmonary interstitium. Pleural: Small effusions difficult to exclude. Cardiac: Cardiomegaly . Mediastinum: Within normal limits. Bones: No acute fractures. Other: None IMPRESSION: Findings likely representing pulmonary edema.
--- NOTE | 2022-06-28 22:54 | PN ---
Date of Progress Note: 06/28/2022 Ms. Ferrell had come in with acute renal failure, atypical chest pain. She has a history of diastol ic dysfunction, diabetes, hypertension, obesity, chronic atrial fibrillation, and headache. The prob katrina now that her creatinine went from 1.08 to 2.7. She also has UTI. BNP is 3500. PO2 67, pCO2 of 47, with a pH of 7.31. She is feeling well, not having much in the way of shortness of breath, but s till have some edema. She is in atrial fibrillation, rate controlled. Echocardiogram today shows an ejection fraction of 33%. Nephrology is following. Aldactone has been held. She remains on Eliqui s. I think we should cut down the dose to 2.5 b.i.d. She is still on Hytrin, Lasix, insulin, metopr olol, we may have to hold the Lasix as well. I will leave that up to Nephrology. We will continue t o follow. ALEX/DAKOTAH Voice ID: [id number] Report ID: [id number]
[2022-06-29 03:38] LABS: Hematocrit 33.9 % (36.0-45.0)
[2022-06-29 04:01] LABS: Albumin 2.6 g/dL (3.4-5.0); Bilirubin Total 0.3 mg/dL (0.2-1.0); Potassium 4.5 mEq/L (3.5-5.1); Protein, Total 6.8 g/dL (6.4-8.2)
[2022-06-29] MEDS: MORPHINE 2 MG/ML SYR IV PRN ×3 (06:50→20:29)
[2022-06-29] MEDS: INSULIN -REGULAR HUMAN 50 UNIT/0.5 ML ML SQ SCH ×4 (07:30→21:00)
[2022-06-29] MEDS: ESCITALOPRAM 20 MG TAB PO SCH (08:04)
[2022-06-29] MEDS: APIXABAN 2.5 MG TABLET PO SCH ×2 (08:04→20:28)
[2022-06-29] MEDS: GABAPENTIN 100 MG CAP PO SCH ×2 (08:04→20:28)
[2022-06-29] MEDS: HYDRALAZINE HCL 20 MG/ML VIAL IV PRN ×2 (09:08→16:51)
--- NOTE | 2022-06-29 13:49 | EKG ---
Test Date: 2022-06-27 Test Time: 20:16:36 House Fellow: DANUTA MEASUREMENT RESULTS: Intervals: Rate: 52 DC: 162 QRSD: 158 QT: 538 QTc: [address] [place]: P: 63 DC: 162 QRS: 11 T: 80 INTERPRETIVE STATEMENTS: Sinus bradycardia Left bundle branch block Abnormal ECG Compared to ECG 06/26/2022 14:20:05 Sinus rhythm no longer present Left-axis deviation no longer present Electronically Signed On 06-29-22 13:48:20 CDT by Florian Morris
[2022-06-29] MEDS ORDERED: LORazepam 2 MG/ML VIAL IV ONE (14:24)
--- NOTE | 2022-06-29 17:37 | P.PN ---
Subjective Date of Service: 06/29/22 Primary Care Provider: Reynaldo Chief Complaint: Chest Pain No acute events overnight. Her renal function seems to be improving. Urine output is improving. She reports minimal shortness of breath. She denies any chest pain or palpitations. Review of Systems 10-point ROS is otherwise unremarkable Respiratory: Shortness of Breath (improved) Physical Examination - Vital Signs Temperature: 97.4 F Blood Pressure: 192/93 Pulse: 74 Respirations: 16 Pulse Ox (%): 96 Assessment And Plan - Plan - Physical Exam General: Alert, In no apparent distress, Oriented x3 HEENT: Atraumatic, Mucous membr. moist/pink, Sclerae nonicteric Neck: JVD not distended Respiratory: Diminished, Faint crackles/rales (bibasilar) Cardiovascular: Regular rate/rhythm, No murmurs, Edema (1+ BLE) Gastrointestinal: Normal bowel sounds, Soft, Non-distended, No tenderness Musculoskeletal: No clubbing Integumentary: No rashes Neurological: Normal speech, Normal affect # KDIGO Stage II Acute Kidney Injury with Hyperkalemia - Consulted Nephrology and spoke with Dr. Jacobs - recommendations appreciated - Suspects that MAJOR is due to relative hypotension - Hold home losartan, spironolactone, doxazosin, metoprolol - Although these are her home medications and she reported taking them, medication compliance is questionable given her significant drop in blood pressure when these medications were started - Potassium = 4.2 -> 5.7 -> 5.6 -> 4.7 -> 4.5 - Creatinine = 1.08 -> 2.04 -> 2.23 -> 2.72 -> 2.09 - Urinalysis = 2+ blood, 75 leukocyte esterase, 21-50 RBCs, 5-10 hyaline casts, 1+ protein - Renal ultrasound = "negative right kidney. Nonvisualized left kidney." - Monitor creatinine and urine output - Renally dose medications # Hypertensive Urgency with Acute on Chronic Decompensated Systolic Congestive Heart Failure with Reduced Ejection Fraction # Moderate Pulmonary Hypertension # Mild Mitral Stenosis - Consult Cardiology and spoke with Dr. Burns - recommendations appreciated - Chest x-ray = "findings likely representing pulmonary edema." - Last transthoracic echocardiogram (06/19/2021) = "mild global hypokinesis. ejection fraction 41-45%. no effusion." - Transthoracic echocardiogram (06/28/2022) = "severe global hypokineiss. ejection fraction 33%. mild mitral stenosis 1.6 centimeters squared. moderate pulmonary hypertension 56mmHg. left atrial enlargement" - Diuresis per Nephrology - Hold home anti-hypertensives due to MAJOR and relative hypotension - Daily weights - Strict I/O - Cardiac diet, 1.5 L fluid restriction, 2 g Na restriction # Lethargy - suspect due to Polypharmacy - resolved - Hold home temazepam, alprazolam, doxepin, doxazosin and reduce dose of ga bapentin # Chronic Atrial Fibrillation # History of Cerebrovascular Accident Her [id number] = 6 (CHF=1, HTN=1, DM=1, CVA=1, Age 65-74=1, Sex=1), which warrants anticoagulation. 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
[2022-06-29] MEDS: ACETAMINOPHEN 325 MG TABLET PO PRN (18:26)
--- NOTE | 2022-06-29 19:29 | P.PN ---
Date of Service: 06/29/22 Vital Signs Temp Pulse Resp BP Pulse Ox 97.4 F 74 16 192/93 H 96 06/29/22 17:38 06/29/22 17:38 06/29/22 17:38 06/29/22 17:38 06/29/22 17:38 Medications Acetaminophen (Acetaminophen 325 Mg Tablet) 650 mg PO Q6H PRN PRN Reason: Pain scale 2-4 (Mild) Last Admin: 06/29/22 18:26 Dose: 650 mg Albuterol Sulfate (Albuterol Inhaler 60 Puff/8 Gm) 2 puff IH Q6H PRN PRN Reason: SHORTNESS OF BREATH Apixaban (Apixaban 2.5 Mg Tablet) 2.5 mg PO BID [facility] Last Admin: 06/29/22 08:04 Dose: 2.5 mg Doxazosin Mesylate (Doxazosin 4 Mg Tab) 4 mg PO BID [facility] Last Admin: 06/27/22 09:00 Dose: Not Given Doxepin HCl (Doxepin Hcl 25 Mg Cap) 150 mg PO BEDTIME [facility] Last Admin: 06/26/22 22:56 Dose: 150 mg Escitalopram Oxalate (Escitalopram 20 Mg Tab) 10 mg PO DAILY [facility] Last Admin: 06/29/22 08:04 Dose: 10 mg Furosemide (Furosemide 40 Mg/4 Ml Vial) 80 mg IV BIDL [facility] Last Admin: 06/27/22 09:00 Dose: Not Given Gabapentin (Gabapentin 100 Mg Cap) 100 mg PO BID [facility] Last Admin: 06/29/22 08:04 Dose: 100 mg Glucagon (Glucagon 1 Mg/Vial) 1 mg IM 1X PRN PRN Reason: HYPOGLYCEMIA Hydralazine HCl (Hydralazine Hcl 20 Mg/Ml Vial) 5 mg IV Q6HP PRN PRN Reason: Systolic BP >170mmhg Last Admin: 06/29/22 16:51 Dose: 5 mg Dextrose (Dextrose 10% Water Iv Soln.) 125 mls @ 0 mls/hr IV PRN PRN; Protocol PRN Reason: HYPOGLYCEMIA Insulin Human Regular (Insulin -Regular Human 50 Unit/0.5 Ml Ml) 0 unit SQ ACHS [facility]; Protocol Last Admin: 06/29/22 16:30 Dose: Not Given Metoprolol Tartrate (Metoprolol Tar 50 Mg Tab) 200 mg PO BID [facility] Last Admin: 06/27/22 09:00 Dose: Not Given Morphine Sulfate (Morphine 2 Mg/Ml Syr) 2 mg IV Q6H PRN PRN Reason: Pain scale 8-10 (Severe) Last Admin: 06/29/22 14:02 Dose: 2 mg Sodium Chloride (Flush Normal Saline 10 Ml) 10 ml IV BID [facility] Last Admin: 06/29/22 08:05 Dose: 10 ml Spironolactone (Spironolactone 25 Mg Tablet) 50 mg PO BID [facility] Last Admin: 06/26/22 20:25 Dose: 50 mg Temazepam (Temazepam 15 Mg Cap) 30 mg PO BEDTIME PRN PRN Reason: INSOMNIA Last Admin: 06/26/22 22:55 Dose: 30 mg Assessment/ Plan: Nephrology No dyspnea No chest pain Feeling better No acute events overnight Vitals, medications, blood work and imaging reviewed in the chart. NAD. Obese. NCAT. MMM. Neck supple. Normal respiratory effort. RRR. Abd ND. No C/C. LE Edema 1-2+. No rash. AAO. Normal speech. Cabrera medium Stage II MAJOR may be related to ATN CKD IIIa with proteinuria -No NSAIDs Hyperkalemia -Lokelma prn HTN with CKD/ CHF -Continue Metoprolol & Doxazosin Systolic Diastolic CHF LVEF 33%, A/C Pulmonary HTN -Continue Furosemide and Spironolactone DM II with Polyneuropathy & CKD -Continue Gabapentin Anemia in chronic illness -Monitor H&H LEFT VENTRICULAR WALL MOTION: SEVERE GLOBAL HYPOKINESIS. DOPPLER/COLOR FLOW: MILD MITRAL STENOSIS 1.6 CENTIMETERS SQUARED MMILD TRICUSPID REGURGITATION RIGHT VENTRICULAR SYSTLIC PRESSURE 56mmHg COMMENTS: [id number] SEVERE GLOBAL HYPOKINEISS EJECTION FRACTION 33% MILD MITRAL STENOSIS 1.6 CENTIMETERS SQUARED MODERATE PULMONARY HYPERTENSION 56mmHg LEFT ATRIAL ENLARGEMENT EXAM DESCRIPTION: US - Renal Ultrasound-Complete - 06/27/2022 4:59 pm CLINICAL HISTORY: MAJOR Flank pain COMPARISON: <Comparisons> FINDINGS: The right kidney measures 11.7 x 5.6 x 5.1 cm. No hydronephrosis, focal mass or perinephric fluid. The left kidney is obscured by bowel gas. The urinary bladder is incompletely distended without gross abnormality seen. IMPRESSION: Negative right kidney. Nonvisualized left kidney. EXAM DESCRIPTION: RAD - Chest Single View - 06/26/2022 3:01 pm CLINICAL HISTORY: Chest pain;Dyspnea COMPARISON: Chest Single View dated 04/26/2022; Chest Single View dated 02/19/2022; Chest Single View dated 09/30/2021; Chest Single View dated 09/10/2021; Abdomen Pelvis W Contrast dated 02/19/2022 FINDINGS: Lines: None. Lungs: Diffuse prominence of the pulmonary interstitium. Pleural: Small effusions difficult to exclude. Cardiac: Cardiomegaly . Mediastinum: Within normal limits. Bones: No acute fractures. Other: None IMPRESSION: Findings likely representing pulmonary edema.
[2022-06-30 04:45] LABS: Potassium 4.3 mEq/L (3.5-5.1)
[2022-06-30] MEDS: MORPHINE 2 MG/ML SYR IV PRN ×3 (05:10→17:24)
[2022-06-30] MEDS: INSULIN -REGULAR HUMAN 50 UNIT/0.5 ML ML SQ SCH ×4 (07:30→20:24)
[2022-06-30 07:41] VITALS: O2SAT 96
[2022-06-30] MEDS: APIXABAN 2.5 MG TABLET PO SCH ×2 (08:09→20:20)
[2022-06-30] MEDS: ACETAMINOPHEN 325 MG TABLET PO PRN (08:09)
[2022-06-30] MEDS: HYDRALAZINE HCL 20 MG/ML VIAL IV PRN (08:10)
[2022-06-30] MEDS: GABAPENTIN 100 MG CAP PO SCH ×2 (08:10→20:20)
[2022-06-30] MEDS: ESCITALOPRAM 20 MG TAB PO SCH (08:10)
[2022-06-30 08:23] LABS: Albumin 2.8 g/dL (3.4-5.0); Bilirubin Direct 0.3 mg/dL (0-0.2); Bilirubin Indirect, Calculated 0.3 mg/dL (0.2-0.8); Bilirubin Total 0.6 mg/dL (0.2-1.0); Protein, Total 7.4 g/dL (6.4-8.2)
[2022-06-30] MEDS: METOPROLOL TAR 50 MG TAB PO SCH ×2 (10:46→20:20)
[2022-06-30] MEDS: SACUBITRIL/VALSARTAN 24/26 MG TAB PO SCH ×2 (10:46→20:20)
[2022-06-30] MEDS: SPIRONOLACTONE 25 MG TABLET PO SCH (10:46)
[2022-06-30] MEDS: FUROSEMIDE 40 MG/4 ML VIAL IV SCH ×2 (10:47→17:07)
--- NOTE | 2022-06-30 12:20 | P.PN ---
(S) Pt appears to be doing better since last seen, no longer lethargic, seen resting in bed, was OOB briefly, endorses dyspnea but not currently on O2. BP has been accelerated. Meds resumed/ordered. (O) Vitals reviewed in the EMR General: In no apparent distress HEENT: Atraumatic, Normocephalic, not on O2 Neck: Supple Respiratory: Normal air movement, Other (Mildly diminished at bases) Cardiovascular: Regular rate/rhythm, Gastrointestinal: Soft and benign, No tenderness Musculoskeletal: Swelling, Other (2+ pitting LE edema, shins are non tender) Integumentary: No rashes Neurological: Awake, alert, responsive, non encephalopathic Laboratory Data (last 24 hrs) Reviewed Conclusions/Impression: A/P) 1. Stage II MAJOR over the weekend with Cr level rise > 0.5 mg/dl 2nd to likely relative BP lower, normotensive renal ischemia +/- CRS/other. Cr level quickly peaked and has trended back down 2. Given accelerated BP this AM and underling, chronic malignant HTN -will resume beta negra, will resume Spironolactone. Will resume diuretics. Will switch ARB to Entresto 3. Echo findings noted, pt with acute on chronic systolic CHF with pulm edema/congestion on admission -will resume Lasix IV diuresis. ARB home med had been on hold since admission, will replace with lower dose Entresto and titrate slowly as tolerated 4. Hyperkalemia resolved 5. Maintain pfeiffer for another 24h to monitor diuresis response 6. Target BP < 130/80 longer-term. 7. AMS resolved, review home meds to avoid polypharmacy and limit RE[employer] INST[employer]ER depressants. Mason Reyes MD, PRASAD
--- NOTE | 2022-06-30 16:11 | P.PN ---
Subjective Date of Service: 06/30/22 Primary Care Provider: Reynaldo Chief Complaint: Chest Pain No acute events overnight. Her renal function is much improved. Per RN, urine output is improving. Blood pressure was quite elevated to 206/101. She denies any chest pain, shortness of breath, or palpitations. Review of Systems 10-point ROS is otherwise unremarkable Respiratory: Shortness of Breath (improved) Cardiovascular: Edema Physical Examination - Vital Signs Temperature: 98.0 F Blood Pressure: 163/82 Pulse: 65 Respirations: 18 Pulse Ox (%): 96 Assessment And Plan - Plan - Physical Exam General: Alert, In no apparent distress, Oriented x3 HEENT: Atraumatic, Mucous membr. moist/pink, Sclerae nonicteric Neck: JVD not distended Respiratory: Diminished, Lungs are clear to ausculation, without wheezes, rhonchi, or rales Cardiovascular: Regular rate/rhythm, No murmurs, Edema (1+ BLE) Gastrointestinal: Normal bowel sounds, Soft, Non-distended, No tenderness Musculoskeletal: No clubbing Integumentary: No rashes Neurological: Normal speech, Normal affect # KDIGO Stage II Acute Kidney Injury with Hyperkalemia # Hypertensive Urgency - Consulted Nephrology and spoke with Dr. Reyes - recommendations appreciated - Suspects that MAJOR is due to relative hypotension - Blood pressure now elevated - per Neph restarted metoprolol + spironolactone - Switched home losartan to sacubutril-valsartan - Potassium = 4.2 -> 5.7 -> 5.6 -> 4.7 -> 4.5 -> 4.3 - Creatinine = 1.08 -> 2.04 -> 2.23 -> 2.72 -> 2.09 -> 1.29 - Urinalysis = 2+ blood, 75 leukocyte esterase, 21-50 RBCs, 5-10 hyaline casts, 1+ protein - Renal ultrasound = "negative right kidney. Nonvisualized left kidney." - Monitor creatinine and urine output - Renally dose medications # Hypertensive Urgency with Acute on Chronic Decompensated Systolic Congestive Heart Failure with Reduced Ejection Fraction # Moderate Pulmonary Hypertension # Mild Mitral Stenosis - Consult Cardiology and spoke with Dr. Burns - recommendations appreciated - Chest x-ray = "findings likely representing pulmonary edema." - Last transthoracic echocardiogram (06/19/2021) = "mild global hypokinesis. ejection fraction 41-45%. no effusion." - Transthoracic echocardiogram (06/28/2022) = "severe global hypokineiss. ejection fraction 33%. mild mitral stenosis 1.6 centimeters squared. moderate pulmonary hypertension 56mmHg. left atrial enlargement" - Diuresis per Nephrology - Hold home anti-hypertensives due to MAJOR and relative hypotension - Daily weights - Strict I/O - Cardiac diet, 1.5 L fluid restriction, 2 g Na restriction # Lethargy - suspect due to Polypharmacy - resolved - Hold home temazepam, alprazolam, doxepin, doxazosin and reduce dose of gabapentin # Chronic Atrial Fibrillation # History of Cerebrovascular Accident Her [id number] = 6 (CHF=1, HTN=1, DM=1, CVA=1, Age 65-74=1, Sex=1), which warrants anticoagulation. 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
[2022-07-01] MEDS ORDERED: TEMAZEPAM 15 MG CAP PO PRN (00:28)
[2022-07-01] MEDS: INSULIN -REGULAR HUMAN 50 UNIT/0.5 ML ML SQ SCH (07:30)
[2022-07-01 07:52] LABS: Albumin 2.7 g/dL (3.4-5.0); Bilirubin Total 0.9 mg/dL (0.2-1.0); Potassium 4.4 mEq/L (3.5-5.1); Protein, Total 7.1 g/dL (6.4-8.2)
[2022-07-01] MEDS: ESCITALOPRAM 20 MG TAB PO SCH (08:25)
[2022-07-01] MEDS: SPIRONOLACTONE 25 MG TABLET PO SCH (08:25)
[2022-07-01] MEDS: SACUBITRIL/VALSARTAN 24/26 MG TAB PO SCH (08:25)
[2022-07-01] MEDS: METOPROLOL TAR 50 MG TAB PO SCH (08:26)
[2022-07-01] MEDS: APIXABAN 2.5 MG TABLET PO SCH (08:27)
[2022-07-01] MEDS: GABAPENTIN 100 MG CAP PO SCH (08:27)
--- NOTE | 2022-07-01 08:56 | P.DS ---
Admission Date: 06/27/22 Discharge Date: 07/01/22 Primary Care Provider: Reynaldo Disposition: ROUTINE DISCHARGE Discharge Condition: GOOD Reason for Admission: Chest Pain Consultations: 1. Cardiology 2. 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 Blanka Ferrell is a pleasant 71-year-old female who has a past medical history of type 2 diabetes mellitus, hypertension, chronic systolic congestive heart failure, depression, anxiety, gastroesophageal reflux disease, and migra ine headaches who was admitted to the [facility] on 06/26/2022 for shortness of breath. Upon further evaluation, she was found to be hypertensive with an NT-Pro BNP of 3,581. Her chest x-ray revealed, "findings likely representing pulmonary edema." She was diagnosed with an acute congestive heart failure exacerbation. Her transthoracic echocardiogram revealed, "severe global hypokineiss. ejection fraction 33%. mild mitral stenosis 1.6 centimeters squared. moderate pulmonary hypertension 56mmHg. left atrial enlargement." She was treated with IV furosemide and displayed improvement in her symptoms. She was resumed on her home medications, and shortly into her admission, she sustained an acute kidney injury. Although she reports compliance with these medications, there was concern for noncompliance given the rapid development of her acute kidney injury. Nephrology was consulted and she was evaluated by Dr. Jacobs and Dr. Reyes. Her anti-hypertensives were held and gradually restarted at a lower dose. She was monitored and her creatinine and urine output improved. Her medication was adjusted per Nephrology and Dr. Reyes has cleared for discharge with metopro lol tartrate 100 mg BID, spironolactone 25 mg daily, furosemide 40 mg BID, and sacubutril-valsartan. She was also seen by Cardiology and Dr. Burns has cleared her for outpatient follow-up. On 07/01/2022, she was seen on morning rounds and deemed medically stable for discharge. She was discharged with instructions to schedule follow-up appointments with her PCP/Budget Record Clerk (Dr. Jacobs) and with Cardiology (Dr. Burns). She was provided prescriptions for furosemide, spironolactone, metoprolol, sacubutril-valsartan, and gabepentin. Her doxepin and doxazosin were discontinued. She was given the opportunity to ask questions and reported no further questions. Furthermore, all questions were answered to the best of my ability. A copy of this discharge summary will be sent to the above providers to facilitate continuity of care. Today, I personally spent 25 minutes on her case, of which greater than 50% of the time was spent in patient education, counseling, and coordination of care as described above. - Physical Exam General: Alert, In no apparent distress, Oriented x3 HEENT: Atraumatic, Mucous membr. moist/pink, Sclerae nonicteric Neck: JVD not distended Respiratory: Lungs are clear to auscultation, without wheezes, rhonchi, or rales Cardiovascular: Regular rate/rhythm, No murmurs, Edema (1+ BLE) Gastrointestinal: Normal bowel sounds, Soft, Non-distended, No tenderness Musculoskeletal: No clubbing Integumentary: No rashes Neurological: Normal speech, Normal affect Vital Signs/Physical Exam: Temp Pulse Resp BP Pulse Ox 97.6 F 62 18 149/75 H 93 07/01/22 04:00 07/01/22 10:30 07/01/22 04:00 07/01/22 10:30 07/01/22 04:00 Laboratory Data at Discharge: WBC 6.40 thou/uL (4.3-10.9) 06/28/22 02:51 Hgb 10.5 g/dL (12.0-15.0) L 06/29/22 02:39 Hct 33.9 % (36.0-45.0) L 06/29/22 02:39 Plt Count 275 thou/uL (152-406) 06/28/22 02:51 Sodium 134 mEq/L (136-145) L 07/01/22 07:25 Potassium 4.4 mEq/L (3.5-5.1) 07/01/22 07:25 BUN 28 mg/dL (7-18) H 07/01/22 07:25 Creatinine 1.10 mg/dL (0.55-1.02) H 07/01/22 07:25 Glucose 117 mg/dL (74-106) H 07/01/22 07:25 Phosphorus 5.7 mg/dL (2.5-4.9) H 06/28/22 02:51 Magnesium 2.0 mg/dL (1.6-2.4) 06/30/22 03:43 Total Bilirubin 0.9 mg/dL (0.2-1.0) 07/01/22 07:25 AST 27 U/L (15-37) 07/01/22 07:25 ALT 53 U/L (13-56) 07/01/22 07:25 Alkaline Phosphatase 111 U/L (45-117) 07/01/22 07:25 Home Medications: Albuterol Inhaler [Ventolin Inhaler*] 2 puff IH Q6H PRN 06/21/21 Alprazolam [Xanax] 0.5 mg PO BID 06/21/21 Escitalopram [Lexapro*] 10 mg PO DAILY 06/21/21 Fluticasone/Vilanterol [Breo Ellipta 200-25 Mcg INH] 1 each IH DAILY 06/21/21 Temazepam 30 mg PO BEDTIME 06/26/22 Apixaban [Eliquis *] 5 mg PO BID 07/01/22 Furosemide [Lasix*] 40 mg PO BID #60 tab 07/01/22 Gabapentin [Neurontin*] 100 mg PO BID #60 cap 07/01/22 Metoprolol Tartrate 100 mg PO BID #60 tab 07/01/22 Sacubitril/Valsartan [Entresto 24 mg-26 mg Tablet] 1 tab PO BID #60 tab 07/01/22 Spironolactone [Aldactone*] 25 mg PO DAILY #30 tab 07/01/22 New Medications: Spironolactone [Aldactone*] 25 mg PO DAILY #30 tab Sacubitril/Valsartan [Entresto 24 mg-26 mg Tablet] 1 tab PO BID #60 tab Furosemide [Lasix*] 40 mg PO BID #60 tab Metoprolol Tartrate 100 mg PO BID #60 tab Gabapentin [Neurontin*] 100 mg PO BID #60 cap Physician Discharge Instructions: 1. Please call and schedule a follow-up appointment with your PCP/Budget Record Clerk (Dr. Jacobs) in 3-5 days - There was a small amount of blood in your urine sample. Although this is most likely from the urinary catheter insertion, this can sometimes be a sign of bladder/kidney cancer. Please make sure to discuss this with your PCP at this appointment. 2. Please call and schedule a follow-up appointment with Cardiology (Dr. Burns) in 5-7 days Diet: AHA Activity: Ad jenny Followup: Juan José Jacobs DO [Primary Care Provider] - (call to schedule an appointment in 3-5 days) Roland Burns MD [ACTIVE - CAN ADMIT] - (call to schedule an appointment in 5-7 days) Time spent managing pt's care (in minutes): 25
[2022-07-01 09:00] VITALS: TEMP 97.9
[2022-07-01] MEDS: FUROSEMIDE 40 MG/4 ML VIAL IV SCH (09:00)
--- NOTE | 2022-07-01 11:20 | P.PN ---
Date of Service: 07/01/22 Vital Signs Temp Pulse Resp BP Pulse Ox 97.9 F 66 20 192/93 H 96 07/01/22 08:00 07/01/22 08:26 07/01/22 08:00 07/01/22 08:26 07/01/22 08:00 Medications Acetaminophen (Acetaminophen 325 Mg Tablet) 650 mg PO Q6H PRN PRN Reason: Pain scale 2-4 (Mild) Last Admin: 06/30/22 08:09 Dose: 650 mg Albuterol Sulfate (Albuterol Inhaler 60 Puff/8 Gm) 2 puff IH Q6H PRN PRN Reason: SHORTNESS OF BREATH Apixaban (Apixaban 2.5 Mg Tablet) 2.5 mg PO BID [facility] Last Admin: 07/01/22 08:27 Dose: 2.5 mg Doxazosin Mesylate (Doxazosin 4 Mg Tab) 4 mg PO BID [facility] Last Admin: 06/27/22 09:00 Dose: Not Given Doxepin HCl (Doxepin Hcl 25 Mg Cap) 150 mg PO BEDTIME [facility] Last Admin: 06/26/22 22:56 Dose: 150 mg Escitalopram Oxalate (Escitalopram 20 Mg Tab) 10 mg PO DAILY [facility] Last Admin: 07/01/22 08:25 Dose: 10 mg Furosemide (Furosemide 40 Mg/4 Ml Vial) 40 mg IV BIDL [facility] Last Admin: 07/01/22 09:00 Dose: Not Given Gabapentin (Gabapentin 100 Mg Cap) 100 mg PO BID [facility] Last Admin: 07/01/22 08:27 Dose: 100 mg Glucagon (Glucagon 1 Mg/Vial) 1 mg IM 1X PRN PRN Reason: HYPOGLYCEMIA Hydralazine HCl (Hydralazine Hcl 20 Mg/Ml Vial) 5 mg IV Q6HP PRN PRN Reason: Systolic BP >170mmhg Last Admin: 06/30/22 08:10 Dose: 5 mg Dextrose (Dextrose 10% Water Iv Soln.) 125 mls @ 0 mls/hr IV PRN PRN; Protocol PRN Reason: HYPOGLYCEMIA Insulin Human Regular (Insulin -Regular Human 50 Unit/0.5 Ml Ml) 0 unit SQ ACHS [facility]; Protocol Last Admin: 07/01/22 07:30 Dose: Not Given Metoprolol Tartrate (Metoprolol Tar 50 Mg Tab) 100 mg PO BID [facility] Last Admin: 07/01/22 08:26 Dose: 100 mg Morphine Sulfate (Morphine 2 Mg/Ml Syr) 2 mg IV Q6H PRN PRN Reason: Pain scale 8-10 (Severe) Last Admin: 06/30/22 17:24 Dose: 2 mg Sodium Chloride (Flush Normal Saline 10 Ml) 10 ml IV BID [facility] Last Admin: 07/01/22 09:00 Dose: Not Given Spironolactone (Spironolactone 25 Mg Tablet) 25 mg PO DAILY [facility] Last Admin: 07/01/22 08:25 Dose: 25 mg Temazepam (Temazepam 15 Mg Cap) 30 mg PO BEDTIME PRN PRN Reason: INSOMNIA Last Admin: 06/26/22 22:55 Dose: 30 mg Temazepam (Temazepam 15 Mg Cap) 30 mg PO BEDTIME PRN PRN Reason: INSOMNIA Last Admin: 07/01/22 00:39 Dose: 30 mg Assessment/ Plan: Nephrology No dyspnea No chest pain Feeling better No acute events overnight Vitals, medications, blood work and imaging reviewed in the chart. NAD. Obese. NCAT. MMM. Neck supple. Normal respiratory effort. RRR. Abd ND. No C/C. LE Edema 1+. No rash. AAO. Normal speech. Stage II MAJOR may be related to ATN CKD IIIa with proteinuria -No NSAIDs Hyperkalemia -Lokelma prn HTN with CKD/ CHF -Continue Metoprolol & Doxazosin Systolic Diastolic CHF LVEF 33%, A/C Pulmonary HTN -Continue Furosemide and Spironolactone DM II with Polyneuropathy & CKD -Continue Gabapentin Anemia in chronic illness -Monitor H&H LEFT VENTRICULAR WALL MOTION: SEVERE GLOBAL HYPOKINESIS. DOPPLER/COLOR FLOW: MILD MITRAL STENOSIS 1.6 CENTIMETERS SQUARED MMILD TRICUSPID REGURGITATION RIGHT VENTRICULAR SYSTLIC PRESSURE 56mmHg COMMENTS: [id number] SEVERE GLOBAL HYPOKINEISS EJECTION FRACTION 33% MILD MITRAL STENOSIS 1.6 CENTIMETERS SQUARED MODERATE PULMONARY HYPERTENSION 56mmHg LEFT ATRIAL ENLARGEMENT EXAM DESCRIPTION: US - Renal Ultrasound-Complete - 06/27/2022 4:59 pm CLINICAL HISTORY: MAJOR Flank pain COMPARISON: <Comparisons> FINDINGS: The right kidney measures 11.7 x 5.6 x 5.1 cm. No hydronephrosis, focal mass or perinephric fluid. The left kidney is obscured by bowel gas. The urinary bladder is incompletely distended without gross abnormality seen. IMPRESSION: Negative right kidney. Nonvisualized left kidney. EXAM DESCRIPTION: RAD - Chest Single View - 06/26/2022 3:01 pm CLINICAL HISTORY: Chest pain;Dyspnea COMPARISON: Chest Single View dated 04/26/2022; Chest Single View dated 02/19/2022; Chest Single View dated 09/30/2021; Chest Single View dated 09/10/2021; Abdomen Pelvis W Contrast dated 02/19/2022 FINDINGS: Lines: None. Lungs: Diffuse prominence of the pulmonary interstitium. Pleural: Small effusions difficult to exclude. Cardiac: Cardiomegaly . Mediastinum: Within normal limits. Bones: No acute fractures. Other: None IMPRESSION: Findings likely representing pulmonary edema.
[2022-07-01 11:37] VITALS: BP 149/75
== END 2022-07-01 12:28 | disposition home health service (06) | DRG 291 ==
LOC: ER 13:45 → ERHOLD 16:55 → 2ND 19:35 → OBSVTOIN 06-27 10:57
PROVIDERS: ADMIT Internal Medicine; ATTEND Internal Medicine
DX: I13.0 Hypertensive heart and chronic kidney disease with heart failure and stage 1 through stage 4 chronic kidney disease, or unspecified chronic kidney disease (principal); I50.23 Acute on chronic systolic (congestive) heart failure; I48.20 Chronic atrial fibrillation, unspecified; N17.9 Acute kidney failure, unspecified; Z68.41 Body mass index [BMI] 40.0-44.9, adult; I16.9 Hypertensive crisis, unspecified; N39.0 Urinary tract infection, site not specified; T83.83XA Hemorrhage due to genitourinary prosthetic devices, implants and grafts, initial encounter; N18.31 Chronic kidney disease, stage 3a; E11.22 Type 2 diabetes mellitus with diabetic chronic kidney disease; E11.42 Type 2 diabetes mellitus with diabetic polyneuropathy; D63.1 Anemia in chronic kidney disease; E66.9 Obesity, unspecified; I44.7 Left bundle-branch block, unspecified; F32.A Depression, unspecified; F41.9 Anxiety disorder, unspecified; I05.0 Rheumatic mitral stenosis; I27.20 Pulmonary hypertension, unspecified; E87.5 Hyperkalemia; J44.9 Chronic obstructive pulmonary disease, unspecified; G47.00 Insomnia, unspecified; K21.9 Gastro-esophageal reflux disease without esophagitis; T42.4X5A Adverse effect of benzodiazepines, initial encounter; T44.6X5A Adverse effect of alpha-adrenoreceptor antagonists, initial encounter; T42.6X5A Adverse effect of other antiepileptic and sedative-hypnotic drugs, initial encounter; R31.9 Hematuria, unspecified; R53.83 Other fatigue; Z88.8 Allergy status to other drugs, medicaments and biological substances; Z79.01 Long term (current) use of anticoagulants; Z86.73 Personal history of transient ischemic attack (TIA), and cerebral infarction without residual deficits; Z90.49 Acquired absence of other specified parts of digestive tract; Z90.710 Acquired absence of both cervix and uterus; Z79.899 Other long term (current) drug therapy; Z91.148 Patient's other noncompliance with medication regimen for other reason; Y84.8 Other medical procedures as the cause of abnormal reaction of the patient, or of later complication, without mention of misadventure at the time of the procedure
CPT/HCPCS: 36415; 70450; 71045; 76770; 80048; 80053; 80076; 81001; 82805; 82947; 83036; 83735; 83880; 84100; 84132; 84484; 85014; 85018; 85025; 93005; 93306; 94760; 96374; 96375; 99285; G0378; J0360; J1815; J1940; J2270; J2405

== ENCOUNTER 2022-07-15 22:34 | Emergency (ER) | payer OTHER ==
[2022-07-15] MEDS ORDERED: Calcium Chloride 10% INJ SYR IV ONE (22:35)
[2022-07-15] MEDS ORDERED: ATROPINE SULF 1 MG/10 ML SYR IV ONE (22:35)
[2022-07-15] MEDS ORDERED: SODIUM CHL 0.9% 1000 ML BAG IV ONE (22:35)
[2022-07-15] MEDS ORDERED: EPINEPHrine 1 MG/10 ML SYR IV ONE (22:35)
--- OUTSIDE RECORDS SUMMARY | 2022-07-15 22:49 | XMS REPORT | Continuity of Care Document ---
:1950 Author Organization [facility] t Address [address] [facility] [address] [facility] [address] [place] [address] Care Team Providers Name Role Phone Denis Campos MD Primary Care Physician Yduy Galdamez MD Attending Clinician [phone] Gulshan Holly MD Attending Clinician YUDY GALDAMEZ Attending Clinician Unavailable EFRAÍN WU Attending Clinician Unavailable EFRAÍN WU Attending Clinician Unavailable Efraín Wu MD Attending Clinician Kt Holly Attending Clinician Unavailable ALLA BREWER Attending Clinician Unavailable Doctor Unassigned, Amanda Attending Clinician Unavailable KRISTEL JURADO Attending Clinician Unavailable Shanae Saunders MD Attending Clinician TAMARA BOWERS Attending Clinician Unavailable Tamara Gray Attending Clinician KIRNA, WONDIFUL A Attending Clinician Unavailable YUDY GALDAMEZ Admitting Clinician Unavailable Kt Holly Admitting Clinician Unavailable Payers Payer Name Policy Type Policy Number Effective Date Expiration Date Zander alarcon [facility] [id number] PFFS 00:00:00 [facility] [id number] 2021 [facility] [place] P[place] 00:00:00 [place] [id number] 2021 00:00:00 Problems Condition Condition Condition Status [...] Disease Active Univers 3-06 ity of 00:00: [address] Reactive Reactive Disease Active Unive rs depression depression 3-06 it y of 00:00: [address] Morbid Morbid Disease Active Methodi obesity obesity 3-30 st with BMI with BMI 00:00: Hospit a of of 00 l 40.0-44.9, 40.0-44.9, adult adult Diverticul Diverticul Disease Active M ethodi itis of itis of 3-29 st intestine intestine 00:00: [facility] 00 l No known No known Disease Unive rs active active ity of problems problems [facility] Allergies, Adverse Reactions, Alerts Allergy Allergy Status Severity Reaction(s) Onset Inactive Treating Comm ents Source Name Type Date Date Clinician SUMATRIP Allergy Active [facility] Sumatrip Propensi Active [facility] adverse 00:00: Medical reaction 00 Center s No Known DA Active [facility] Allergie 05-17 [place] s 00:00: [facility] 00 are Medical Center NO KNOWN Drug Active Univers ALLERGIE Class ity of S [facility] Family History Family Member Diagnosis Comments Start Date Stop Date Source Natural daughter Anesthesia problems [facility] Natural [facility] Natural father Arthritis [facility] Natural father Diabetes [facility] Natural father Hypertension [facility] Natural father Stroke [facility] Social History Social Habit Start Date Stop Date Quantity Comments Source Gender identity [facility] Sexual orientation [facility] History [facility]Med [facility] History of tobacco Passive smoker [facility] Exposure to 2022-02-10 2022-02-[address] [facility] SARS-CoV-2 (event) 00:00:00 01:40:00 Medica l Center History [facility] 2022-02-20 2022-02-[address] [facility] Housing Unable to 00:00:00 00:00:00 Medical Center Pay History [facility] 2022-02-20 2022-02-[address] [facility] Housing Places 00:00:00 00:00:00 Medical Ce nter Lived History [facility] 2022-02-20 2022-02-[address] [facility] Housing Homeless 00:00:00 00:00:00 Medical Center Last Year History [facility] 2022-02-20 2022-02-[address] [facility] Transport Med 00:00:00 00:00:[address] Tobacco use and 2022-02-20 2022-02-[address] [facility] exposure 00:00:00 00:00:00 tobacco non-user Medical Center History of Social 2017-12-29 2017-12-[address] function 00:00:00 00:00:00 Hospital Alcohol intake 2017-06-13 2017-06-13 Current [facility] 00:00:00 00:00:00 non-drinker of Hospital alcohol (finding) Sex Assigned At [address] [facility] 00:00:00 00:00:00 Medical Center Smoking Status Start Date Stop Date Source Never smoked tobacco [facility] Medications Ordered Filled Start Stop [...] night as Center needed for Sleep. apixaban 3-0 Yes 2.5mg Q.5D Take 2.[address] (Eliquis) 1-09 mg by [facility] 2.5 mg Tab 13:37: mouth 2 Medi louie tablet 33 (two) Center times daily. chlorthalid 3-0 Yes 25mg QD Take 25 mg CHI [...] 13:37: mouth Medical capsule 33 nightly. Center chlorthalid 2023-0 Yes 25mg QD Take [address] one 1-09 by mouth [facility] (HYGROTON) 13:37: daily. Medic al 25 MG 33 Center tablet gabapentin 3-0 Yes 300mg Q.5D Take [address] (NEURONTIN) 1-09 mg by [facility] 300 MG 13:37: mouth 2 Medical capsule 33 (two) Center times daily. doxazosin 2023-0 Yes 4mg Q.5D Take 4 [...] louie tablet 33 (two) Center times daily. ALPRAZolam 2023-0 [...] night as Center needed for Sleep. apixaban 3-0 Yes 2.5mg Q.5D Take 2.[address] (Eliquis) 1-09 mg by [facility] 2.5 mg Tab 13:37: mouth 2 Medi louie tablet 33 (two) Center times daily. chlorthalid 3-0 Yes 25mg QD Take [address] one 1-09 by mouth [facility] (HYGROTON) 13:37: daily. Medic al 25 MG 33 Center tablet doxazosin 2022-0 Yes 4mg Q.5D Take [address] (CARDURA) 4 1-09 by mouth 2 Patricia kes MG tablet 13:37: (two) Medical 33 times Center daily. doxepin 3-0 Yes 100mg QD Take 100 [facility] t (SINEquan) 1-09 mg by [facility] 100 MG 13:37: mouth Medical capsule 33 nightly. Center gabapentin 3-0 Yes 300mg Q.5D Take [address] (NEURONTIN) 1-09 mg by [facility] 300 MG 13:37: mouth 2 Medical capsule 33 (two) Center times daily. ALPRAZolam 2022-0 Yes .5mg Take 0.[address] (XANAX) 0.5 1-09 mg by [facility]ukes MG tablet 13:37: mouth 2 Medic al 33 (two) Center times daily as needed for Anxiety. temazepam 2022-0 Yes insomnia 30mg Take [address] (RESTORIL) 1-09 by mouth [facility] 30 mg 13:37: every Medical capsule 33 night as Center needed for Sleep. apixaban 3-0 Yes 2.5mg Q.5D Take 2.[address] (Eliquis) 1-09 mg by [facility]ukes 2.5 mg Tab 13:37: mouth 2 Medi louie tablet 33 (two) Center times daily. ciprofloxac 3-0 3- No 500mg Q.5D Take [address] in HCl -10 15-16 tablet [facility] (CIPRO) 500 00:00: 23:59 (500 mg Me dical MG tablet 00 :00 total) by Cente r mouth 2 (two) times daily for 7 days. metroNIDAZO 2023-0 2023- No 500mg Q.[id number] Take [address] [facility] (FLAGYL) 02-22 [id number] tablet [facility] 500 MG 00:00: 23:59 3D (500 mg Medical tablet 00 :00 total) by Center mouth 3 (three) times daily for 7 days. ciprofloxac 2023-0 2023- No 500mg Q.5D Take [address] in HCl 02-22 tablet [facility] (CIPRO) 500 00:00: 23:59 (500 mg Me dical MG tablet 00 :00 total) by Cente r mouth 2 (two) times daily for 7 days. metroNIDAZO 3-0 2023- No 500mg Q.[id number] Take [address] [facility] (FLAGYL) 02-22 [id number] tablet [facility] 500 MG 00:00: 23:59 3D [...] 7 days. metroNIDAZO 3-0 2023- No 500mg Q.[id number] Take [address] (FLAGYL) 02-22 [id number] tablet [facility] 500 MG 00:00: 23:59 3D [...] (two) times daily for 7 days. metroNIDAZO 2023-0 2023- No 500mg Q.[id number] Take [address] (FLAGYL) 02-22 [id number] tablet [facility] 500 MG 00:00: 23:59 3D [...] 7 days. metroNIDAZO 3-0 2023- No 500mg Q.[id number] Take [address] [facility] (FLAGYL) 02-22 [id number] tablet [facility] 500 MG 00:00: 23:59 3D (500 mg Medical tablet 00 :00 total) by Center mouth 3 (three) times daily for 7 days. ciprofloxac 3-0 202- No 500mg Q.5D Take [address] in HCl 02-22 tablet [facility] (CIPRO) 500 00:00: 23:59 (500 mg Me dical MG tablet 00 :00 total) by Cente r mouth 2 (two) times daily for 7 days. metroNIDAZO 3-0 202- No 500mg Q.[id number] Take [address] [facility] (FLAGYL) 02-22 [id number] tablet [facility] 500 MG 00:00: 23:59 3D [...] IN ity of nasal spray 00:00: ONE [place] [address] NOSTRIL Medical EVERY 8 Branch HOURS NEEDED [...] IN ity of nasal spray 00:00: ONE [place] [address] NOSTRIL Medical EVERY 8 Branch HOURS NEEDED FOR HEADACHE Indication s: acute pain, chronic pain, Headache butorphanol 2021-0 Yes 2745 USE 1 Unive rs 10 mg/mL 2-05 SPRAY IN ity of nasal spray 00:00: ONE [place] [address] NOSTRIL Medical EVERY 8 Branch HOURS NEEDED FOR HEADACHE Indication s: acute pain, chronic pain, Headache butorphanol 2021-0 Yes 2745 USE 1 Unive rs 10 mg/mL 2-05 SPRAY IN ity of nasal spray 00:00: ONE [place] [address] NOSTRIL Medical EVERY 8 Branch HOURS NEEDED [...] of nasal spray 00:00: 00:00 [facility] 00 :00 NOSTRIL Medical EVERY 8 Branch HOURS NEEDED FOR HEADACHE Indication s: acute pain, chronic pain, Headache butorphanol 2021-0 2021- No 2745 USE 1 Univ ers 10 mg/mL 2-05 03-05 SPRAY IN ity of nasal spray 00:00: 00:00 [facility] 00 :00 NOSTRIL Medical EVERY 8 [...] acute pain, chronic pain, Headache butorphanol 0 202- No 2745 USE 1 Univ ers 10 mg/mL 1-05 02-05 SPRAY IN ity of nasal spray 00:00: 00:00 [facility] 00 :00 NOSTRIL Medical EVERY 8 [...] USE 1 Univ ers 10 mg/mL 2-07 -05 SPRAY IN ity of nasal spray 00:00: 00:00 [facility] 00 :00 NOSTRIL Medical EVERY 8 Branch HOURS NEEDED FOR HEADACHE Indication s: acute pain, chronic pain, Headache AMITRIPTYLI 2020- Yes TAKE 1 Univ ers [place] 25 mg 1-10 TABLET BY ity of tablet 00:00: MOUTH [place] 00 EVERYDAY Medical AT BEDTIME Branch AMITRIPTYLI 2020-1 Yes TAKE 1 Univ ers [place] 25 mg 1-10 TABLET BY ity of tablet 00:00: [facility] 00 EVERYDAY Medical AT BEDTIME Branch [...] 1-10 TABLET BY ity of tablet 00:00: [facility] EVERYDAY Medical AT BEDTIME Branch AMITRIPTYLI 2019- [...] 1-10 TABLET BY ity of tablet 00:00: [facility] EVERYDAY Medical AT BEDTIME Branch AMITRIPTYLI 2020- [...] MOUTH EVERYDAY Medical AT BEDTIME Branch AMITRIPTYLI 2019-02 Yes TAKE 1 Univ ers NE 25 mg 1-10 TABLET BY ity of tablet 00:00: MOUTH 00 EVERYDAY Medical AT BEDTIME Branch AMITRIPTYLI 2019-02- No TAKE 1 Uni vers NE 25 mg 1-10 05-05 TABLET BY ity o f tablet 00:00: 00:00 [facility] [place] 00 :00 EVERYDAY Medical AT BEDTIME [...] of nasal spray 00:00: 00:00 [facility] 00 :00 NOSTRIL Medical EVERY 8 [...] SPRAY IN ity of nasal spray 00:00: [place] [address] NOSTRIL Medical EVERY 8 Branch HOURS NEEDED [...] IN ity of nasal spray 00:00: ONE [place] [address] NOSTRIL Medical EVERY 8 Branch HOURS NEEDED FOR HEADACHE Indication s: chronic pain, Headache butorphanol 2020-0 2020- No 2745 USE 1 Univ ers 10 mg/mL 9-11 10-09 SPRAY IN ity of nasal spray 00:00: 00:00 [facility] 00 :00 NOSTRIL Medical EVERY 8 Branch HOURS NEEDED FOR HEADACHE Indication s: chronic pain, Headache butorphanol 2020-0 Yes USE 1 Unive rs 10 mg/mL 8-14 SPRAY IN ity of nasal spray 00:00: ONE [place] [address] NOSTRIL Medical EVERY 8 Branch HOURS NEEDED FOR HEADACHE Indication s: Headache butorphanol 2020-0 Yes 2745 USE 1 Unive rs 10 mg/mL 8-14 SPRAY IN ity of nasal spray 00:00: ONE [place] [address] NOSTRIL Medical EVERY 8 Branch HOURS NEEDED FOR HEADACHE Indication s: chronic pain, Headache butorphanol 2020-0 Yes 2745 USE 1 Unive rs 10 mg/mL 8-14 SPRAY IN ity of nasal spray 00:00: ONE [place] [address] NOSTRIL Medical EVERY 8 Branch HOURS NEEDED [...] IN ity of nasal spray 00:00: ONE [place] [address] NOSTRIL Medical EVERY 8 Branch HOURS NEEDED FOR HEADACHE butorphanol 2020-0 Yes USE 1 Unive rs 10 mg/mL 6-04 SPRAY IN ity of nasal spray 00:00: ONE [place] [address] NOSTRIL Medical EVERY 8 Branch HOURS NEEDED FOR HEADACHE butorphanol 2020-0 Yes USE 1 Unive rs 10 mg/mL 6-04 SPRAY IN ity of nasal spray 00:00: ONE [place] [address] NOSTRIL Medical EVERY 8 Branch HOURS NEEDED FOR HEADACHE butorphanol 2020-0 Yes USE 1 Unive rs 10 mg/mL 6-04 SPRAY IN ity of nasal spray 00:00: ONE [place] [address] NOSTRIL Medical EVERY 8 Branch HOURS NEEDED FOR HEADACHE butorphanol 2020-0 Yes USE 1 Unive rs 10 mg/mL 6-04 SPRAY IN ity of nasal spray 00:00: ONE [place] [address] NOSTRIL Medical EVERY 8 Branch HOURS NEEDED FOR HEADACHE butorphanol 2020-0 Yes USE 1 Unive rs 10 mg/mL 6-04 SPRAY IN ity of nasal spray 00:00: ONE [place] [address] NOSTRIL Medical EVERY 8 Branch HOURS NEEDED FOR HEADACHE butorphanol 2020-0 Yes USE 1 Unive rs 10 mg/mL 6-04 SPRAY IN ity of nasal spray 00:00: ONE [place] [address] NOSTRIL Medical EVERY 8 Branch HOURS NEEDED FOR HEADACHE SERTRALINE 2020-0 Yes [id number] TAKE 1 U nivers 25 mg 5-21 TABLET BY ity of tablet 00:00: [facility] EVERY DAY Medical Branch SERTRALINE 2020-0 Yes [id number] TAKE 1 U nivers 25 mg 5-21 TABLET BY ity of tablet 00:00: [facility] EVERY DAY Medical Branch SERTRALINE 2020-0 Yes [id number] TAKE 1 U nivers 25 mg 5-21 TABLET BY ity of tablet 00:00: [facility] EVERY DAY Medical Branch SERTRALINE 2020-0 Yes [id number] TAKE 1 U nivers 25 mg 5-21 TABLET BY ity of tablet 00:00: [facility] EVERY DAY Medical Branch SERTRALINE 2020-0 Yes [id number] TAKE 1 U nivers 25 mg 5-21 TABLET BY ity of tablet 00:00: [facility] EVERY DAY Medical Branch SERTRALINE 2020-0 Yes [id number] TAKE 1 U nivers 25 mg 5-21 TABLET BY ity of tablet 00:00: [facility] EVERY DAY Medical Branch SERTRALINE 2020-0 Yes [id number] TAKE 1 U nivers 25 mg 5-21 TABLET BY ity of tablet 00:00: [facility] EVERY DAY Medical Branch SERTRALINE 2020-0 Yes [id number] TAKE 1 U nivers 25 mg 5-21 TABLET BY ity of tablet 00:00: [facility] EVERY DAY Medical Branch SERTRALINE 2020-0 Yes [id number] TAKE 1 U nivers 25 mg 5-21 TABLET BY ity of tablet 00:00: [facility] EVERY DAY Medical Branch SERTRALINE 2020-0 Yes [id number] TAKE 1 U nivers 25 mg 5-21 TABLET BY ity of tablet 00:00: [facility] EVERY DAY Medical Branch SERTRALINE 2020-0 Yes [id number] TAKE 1 U nivers 25 mg 5-21 TABLET BY ity of tablet 00:00: [facility] EVERY DAY Medical Branch SERTRALINE 2020-0 Yes [id number] TAKE 1 U nivers 25 mg 5-21 TABLET BY ity of tablet 00:00: [facility] EVERY DAY Medical Branch SERTRALINE 2020-0 Yes [id number] TAKE 1 U nivers 25 mg 5-21 TABLET BY ity of tablet 00:00: [facility] EVERY DAY Medical Branch SERTRALINE 2020-0 Yes [id number] TAKE 1 U nivers 25 mg 5-21 TABLET BY ity of tablet 00:00: [facility] EVERY DAY Medical Branch SERTRALINE 2020-0 Yes [id number] TAKE 1 U nivers 25 mg 5-21 TABLET BY ity of tablet 00:00: [facility] EVERY DAY Medical Branch SERTRALINE 2020-0 Yes [id number] TAKE 1 U nivers 25 mg 5-21 TABLET BY ity of tablet 00:00: [facility] EVERY DAY Medical Branch SERTRALINE 2020-0 Yes [id number] TAKE 1 U nivers 25 mg 5-21 TABLET BY ity of tablet 00:00: [facility] EVERY DAY Medical Branch SERTRALINE 2020-0 Yes [id number] TAKE 1 U nivers 25 mg 5-21 TABLET BY ity of tablet 00:00: [facility] EVERY DAY Medical Branch SERTRALINE 2020-0 Yes [id number] TAKE 1 U nivers 25 mg 5-21 TABLET BY ity of tablet 00:00: [facility] EVERY DAY Medical Branch SERTRALINE 2020-0 Yes [id number] TAKE 1 U nivers 25 mg 5-21 TABLET BY ity of tablet 00:00: [facility] EVERY DAY Medical Branch SERTRALINE 2020-0 Yes [id number] TAKE 1 U nivers 25 mg 5-21 TABLET BY ity of tablet 00:00: [facility] EVERY DAY Medical Branch SERTRALINE 2020-0 Yes [id number] TAKE 1 U nivers 25 mg 5-21 TABLET BY ity of tablet 00:00: [facility] EVERY DAY Medical Branch SERTRALINE 2020-0 Yes [id number] TAKE 1 U nivers 25 mg 5-21 TABLET BY ity of tablet 00:00: [facility] EVERY DAY Medical Branch SERTRALINE 2020-0 Yes [id number] TAKE 1 U nivers 25 mg 5-21 TABLET BY ity of tablet 00:00: [facility] EVERY DAY Medical Branch SERTRALINE 2020-0 Yes [id number] TAKE 1 U nivers 25 mg 5-21 TABLET BY ity of tablet 00:00: [facility] EVERY DAY Medical Branch SERTRALINE 2020-0 Yes [id number] TAKE 1 U nivers 25 mg 5-21 TABLET BY ity of tablet 00:00: [facility] EVERY DAY Medical Branch SERTRALINE 2020-0 Yes [id number] TAKE 1 U nivers 25 mg 5-21 TABLET BY ity of tablet 00:00: MOUTH [place] 00 EVERY DAY Medical Branch SERTRALINE 2020-0 Yes [id number] TAKE 1 U nivers 25 mg 5-21 TABLET BY ity of tablet 00:00: MOUTH [place] EVERY DAY Medical Branch SERTRALINE 2020-0 Yes [id number] TAKE 1 U nivers 25 mg 5-21 TABLET BY ity of tablet 00:00: [facility] EVERY DAY Medical Branch SERTRALINE 2020-0 Yes [id number] TAKE 1 U nivers 25 mg 5-21 TABLET BY ity of tablet 00:00: MOUTH [place] EVERY DAY Medical Branch SERTRALINE 2020-0 Yes [id number] TAKE 1 U nivers 25 mg 5-21 TABLET BY ity of tablet 00:00: [facility] EVERY DAY Medical Branch SERTRALINE 2020-0 Yes [id number] TAKE 1 U nivers 25 mg 5-21 TABLET BY ity of tablet 00:00: [facility] EVERY DAY Medical Branch SERTRALINE 2020-0 Yes [id number] TAKE 1 U nivers 25 mg 5-21 TABLET BY ity of tablet 00:00: [facility] 00 EVERY DAY Medical Branch SERTRALINE 2020-0 Yes [id number] TAKE 1 U nivers 25 mg 5-21 TABLET BY ity of tablet 00:00: [facility] EVERY DAY Medical Branch SERTRALINE 2020-0 Yes [id number] TAKE 1 U nivers 25 mg 5-21 TABLET BY ity of tablet 00:00: [facility] EVERY DAY Medical Branch SERTRALINE 2020-0 Yes [id number] TAKE 1 U nivers 25 mg 5-21 TABLET BY ity of tablet 00:00: [facility] 00 EVERY DAY Medical Branch SERTRALINE 2020-0 Yes [id number] TAKE 1 U nivers 25 mg 5-21 TABLET BY ity of tablet 00:00: [facility] EVERY DAY Medical Branch SERTRALINE 2020-0 Yes [id number] TAKE 1 U nivers 25 mg 5-21 TABLET BY ity of tablet 00:00: [facility] 00 EVERY DAY Medical Branch SERTRALINE 2020-0 Yes [id number] TAKE 1 U nivers 25 mg 5-21 TABLET BY ity of tablet 00:00: [facility] EVERY DAY Medical Branch SERTRALINE 2020-0 Yes [id number] TAKE 1 U nivers 25 mg 5-21 TABLET BY ity of tablet 00:00: MOUTH [place] EVERY DAY Medical Branch SERTRALINE 2020-0 Yes [id number] TAKE 1 U nivers 25 mg 5-21 TABLET BY ity of tablet 00:00: MOUTH [place] EVERY DAY Medical Branch SERTRALINE 2020-0 Yes [id number] TAKE 1 U nivers 25 mg 5-21 TABLET BY ity of tablet 00:00: MOUTH [place] EVERY DAY Medical Branch SERTRALINE 2020-0 Yes [id number] TAKE 1 U nivers 25 mg 5-21 [...] by ity of tablet 00:00: mouth at [place] [address] bedtime. Medical Branch butorphanol 2020-0 Yes USE 1 Unive rs 10 mg/mL 5-05 SPRAY IN ity of nasal spray 00:00: ONE [place] [address] NOSTRIL Medical EVERY 8 Branch HOURS NEEDED FOR HEADACHE amitriptyli 2020-0 Yes 25mg Take 1 Univ ers ne 25 mg 5-05 tablet by ity of tablet 00:00: mouth at [place] [address] bedtime. Medical Branch butorphanol 2020-0 Yes USE 1 Unive rs 10 mg/mL 5-05 SPRAY IN ity of nasal spray 00:00: ONE [place] NOSTRIL Medical EVERY 8 Branch HOURS NEEDED FOR HEADACHE amitriptyli 2020-0 Yes 25mg Take 1 Univ ers ne 25 mg 5-05 tablet by ity of tablet 00:00: mouth at [place] [address] bedtime. Medical Branch butorphanol 2020-0 Yes USE 1 Unive rs 10 mg/mL 5-05 SPRAY IN ity of nasal spray 00:00: ONE [place] NOSTRIL Medical EVERY 8 Branch HOURS NEEDED FOR HEADACHE amitriptyli 2020-0 Yes 25mg Take 1 Univ ers ne 25 mg 5-05 tablet by ity of tablet 00:00: mouth at [place] [address] bedtime. Medical Branch butorphanol 2020-0 Yes USE 1 Unive rs 10 mg/mL 5-05 SPRAY IN ity of nasal spray 00:00: ONE [place] [address] NOSTRIL Medical EVERY 8 Branch HOURS NEEDED FOR HEADACHE amitriptyli 2020-0 Yes 25mg Take 1 Univ ers ne 25 mg 5-05 tablet by ity of tablet 00:00: mouth at [place] [address] bedtime. Medical Branch amitriptyli 2020-0 Yes 25mg Take 1 Univ ers ne 25 mg 5-05 tablet by ity of tablet 00:00: mouth at [place] [address] bedtime. Medical Branch amitriptyli 2020-0 Yes 25mg Take 1 Univ ers ne 25 mg 5-05 tablet by ity of tablet 00:00: mouth at [place] [address] bedtime. Medical Branch amitriptyli 2020-0 Yes 25mg Take 1 Univ ers ne 25 mg 5-05 tablet by ity of tablet 00:00: mouth at [place] [address] bedtime. Medical Branch amitriptyli 2020-0 Yes 25mg Take 1 Univ ers ne 25 mg 5-05 tablet by ity of tablet 00:00: mouth at [place] [address] bedtime. Medical Branch amitriptyli 2020-0 Yes 25mg Take 1 Univ ers ne 25 mg 5-05 tablet by ity of tablet 00:00: mouth at [place] [address] bedtime. Medical Branch amitriptyli 2020-0 Yes 25mg Take 1 Univ ers ne 25 mg 5-05 tablet by ity of tablet 00:00: mouth at [place] [address] bedtime. Medical Branch amitriptyli 2020-0 Yes 25mg Take 1 Univ ers ne 25 mg 5-05 tablet by ity of tablet 00:00: mouth at [place] [address] bedtime. Medical Branch amitriptyli 2020-0 Yes 25mg Take 1 Univ ers ne 25 mg 5-05 tablet by ity of tablet 00:00: mouth at [place] [address] bedtime. Medical Branch amitriptyli 2020-0 Yes 25mg Take 1 Univ ers ne 25 mg 5-05 tablet by ity of tablet 00:00: mouth at [place] [address] bedtime. Medical Branch amitriptyli 2020-0 Yes 25mg Take 1 Univ ers ne 25 mg 5-05 tablet by ity of tablet 00:00: mouth at [place] [address] bedtime. Medical Branch amitriptyli 2020-0 Yes 25mg Take 1 Univ ers ne 25 mg 5-05 tablet by ity of tablet 00:00: mouth at [place] [address] bedtime. Medical Branch amitriptyli 2020-0 Yes 25mg Take 1 Univ ers ne 25 mg 5-05 tablet by ity of tablet 00:00: mouth at [place] [address] bedtime. Medical Branch amitriptyli 2020-0 Yes 25mg Take 1 Univ ers ne 25 mg 5-05 tablet by ity of tablet 00:00: mouth at [place] [address] bedtime. Medical Branch amitriptyli 2020-0 Yes 25mg Take 1 Univ ers ne 25 mg 5-05 tablet by ity of tablet 00:00: mouth at [place] [address] bedtime. Medical Branch amitriptyli 2020-0 Yes 25mg Take 1 Univ ers ne 25 mg 5-05 tablet by ity of tablet 00:00: mouth at [place] [address] bedtime. Medical Branch amitriptyli 2020-0 Yes 25mg Take 1 Univ ers ne 25 mg 5-05 tablet by ity of tablet 00:00: mouth at [place] [address] bedtime. Medical Branch amitriptyli 2020-0 Yes 25mg Take 1 Univ ers ne 25 mg 5-05 tablet by ity of tablet 00:00: mouth at [place] [address] bedtime. Medical Branch amitriptyli 2020-0 2020- No [...] TABLET BY ity of tablet 00:00: MOUTH [place] [address] EVERYDAY Medical AT BEDTIME Branch AMITRIPTYLI 2020-0 [...] Medical AT BEDTIME Branch sulfamethox 2020-0 Yes [id number] 1{tbl} Take 1 Univers azole-trime 3-25 tablet by ity of thoprim 00:00: mouth 2 [place] 800-160 mg 00 (two) Medical per tablet times Branch daily. sulfamethox 2020-0 Yes [id number] 1{tbl} Take 1 Univers azole-trime 3-25 tablet by ity of thoprim 00:00: mouth 2 [place] 800-160 mg 00 (two) Medical per tablet times Branch daily. sulfamethox 2020-0 Yes [id number] 1{tbl} Take 1 Univers azole-trime 3-25 tablet by ity of thoprim 00:00: mouth 2 [place] 800-160 mg 00 (two) Medical per tablet times Branch daily. sulfamethox 2020-0 Yes [id number] 1{tbl} Take 1 Univers azole-trime 3-25 tablet by ity of thoprim 00:00: mouth 2 [place] 800-160 mg 00 (two) Medical per tablet times Branch daily. sulfamethox 2020-0 Yes [id number] 1{tbl} Take 1 Univers azole-trime 3-25 tablet by ity of thoprim 00:00: mouth 2 [place] 800-160 mg 00 (two) Medical per tablet times Branch daily. sulfamethox 2020-0 Yes [id number] 1{tbl} Take 1 Univers azole-trime 3-25 tablet by ity of thoprim 00:00: mouth 2 [place] 800-160 mg 00 (two) Medical per tablet times Branch daily. sulfamethox 2020-0 Yes [id number] 1{tbl} Take 1 Univers azole-trime 3-25 tablet by ity of thoprim 00:00: mouth 2 [place] 800-160 mg 00 (two) Medical per tablet times Branch daily. sulfamethox 2020-0 Yes [id number] 1{tbl} Take 1 Univers azole-trime 3-25 tablet by ity of thoprim 00:00: mouth 2 [place] 800-160 mg 00 (two) Medical per tablet times Branch daily. sulfamethox 2020-0 Yes [id number] 1{tbl} Take 1 Univers azole-trime 3-25 tablet by ity of thoprim 00:00: mouth 2 [place] 800-160 mg 00 (two) Medical per tablet times Branch daily. sulfamethox 2020-0 Yes [id number] 1{tbl} Take 1 Univers azole-trime 3-25 tablet by ity of thoprim 00:00: mouth 2 [place] 800-160 mg 00 (two) Medical per tablet times Branch daily. sulfamethox 2020-0 Yes [id number] 1{tbl} Take 1 Univers azole-trime 3-25 tablet by ity of thoprim 00:00: mouth 2 [place] 800-160 mg 00 (two) Medical per tablet times Branch daily. sulfamethox 2020-0 Yes [id number] 1{tbl} Take 1 Univers azole-trime 3-25 tablet by ity of thoprim 00:00: mouth 2 [place] 800-160 mg 00 (two) Medical per tablet times Branch daily. sulfamethox 2020-0 Yes [id number] 1{tbl} Take 1 [facility] azole-trime 3-25 tablet by ity of thoprim 00:00: mouth 2 [place] 800-160 mg 00 (two) Medical per tablet times Branch daily. sulfamethox 2020-0 Yes [id number] 1{tbl} Take 1 [facility] azole-trime 3-25 tablet by ity of thoprim 00:00: mouth 2 [place] 800-160 mg 00 (two) Medical per tablet times Branch daily. sulfamethox 2020-0 Yes [id number] 1{tbl} Take 1 [facility] azole-trime 3-25 tablet by ity of thoprim 00:00: mouth 2 [place] 800-160 mg 00 (two) Medical per tablet times Branch daily. sulfamethox 2020-0 Yes [id number] 1{tbl} Take 1 [facility] azole-trime 3-25 tablet by ity of thoprim 00:00: mouth 2 [place] 800-160 mg 00 (two) Medical per tablet times Branch daily. sulfamethox 2020-0 Yes [id number] 1{tbl} Take 1 [facility] azole-trime 3-25 tablet by ity of thoprim 00:00: mouth 2 [place] 800-160 mg 00 (two) Medical per tablet times Branch daily. sulfamethox 2020-0 Yes [id number] 1{tbl} Take 1 [facility] azole-trime 3-25 tablet by ity of thoprim 00:00: mouth 2 [place] 800-160 mg 00 (two) Medical per tablet times Branch daily. sulfamethox 2020-0 Yes [id number] 1{tbl} Take 1 [facility] azole-trime 3-25 tablet by ity of thoprim 00:00: mouth 2 [place] 800-160 mg 00 (two) Medical per tablet times Branch daily. sulfamethox 2020-0 Yes [id number] 1{tbl} Take 1 [facility] azole-trime 3-25 tablet by ity of thoprim 00:00: mouth 2 [place] 800-160 mg 00 (two) Medical per tablet times Branch daily. sulfamethox 2020-0 Yes [id number] 1{tbl} Take 1 [facility] azole-trime 3-25 tablet by ity of thoprim 00:00: mouth 2 [place] 800-160 mg 00 (two) Medical per tablet times Branch daily. sulfamethox 2020-0 Yes [id number] 1{tbl} Take 1 [facility] azole-trime 3-25 tablet by ity of thoprim 00:00: mouth 2 [place] 800-160 mg 00 (two) Medical per tablet times Branch daily. sulfamethox 2020-0 Yes [id number] 1{tbl} Take 1 [facility] azole-trime 3-25 tablet by ity of thoprim 00:00: mouth 2 [place] 800-160 mg 00 (two) Medical per tablet times Branch daily. sulfamethox 2020-0 Yes [id number] 1{tbl} Take 1 [facility] azole-trime 3-25 tablet by ity of thoprim 00:00: mouth 2 [place] 800-160 mg 00 (two) Medical per tablet times Branch daily. sulfamethox 2020-0 Yes [id number] 1{tbl} Take 1 [facility] azole-trime 3-25 tablet by ity of thoprim 00:00: mouth 2 [place] 800-160 mg 00 (two) Medical per tablet times Branch daily. sulfamethox 2020-0 Yes [id number] 1{tbl} Take 1 [facility] azole-trime 3-25 tablet by ity of thoprim 00:00: mouth 2 [place] 800-160 mg 00 (two) Medical per tablet times Branch daily. sulfamethox 2020-0 Yes [id number] 1{tbl} Take 1 [facility] azole-trime 3-25 tablet by ity of thoprim 00:00: mouth 2 [place] 800-160 mg 00 (two) Medical per tablet times Branch daily. sulfamethox 2020-0 Yes [id number] 1{tbl} Take 1 [facility] azole-trime 3-25 tablet by ity of thoprim 00:00: mouth 2 [place] 800-160 mg 00 (two) Medical per tablet times Branch daily. sulfamethox 2020-0 Yes [id number] 1{tbl} Take 1 [facility] azole-trime 3-25 tablet by ity of thoprim 00:00: mouth 2 [place] 800-160 mg 00 (two) Medical per tablet times Branch daily. sulfamethox 2020-0 Yes [id number] 1{tbl} Take 1 [facility] azole-trime 3-25 tablet by ity of thoprim 00:00: mouth 2 [place] 800-160 mg 00 (two) Medical per tablet times Branch daily. sulfamethox 2020-0 Yes [id number] 1{tbl} Take 1 [facility] azole-trime 3-25 tablet by ity of thoprim 00:00: mouth 2 [place] 800-160 mg 00 (two) Medical per tablet times Branch daily. sulfamethox 2020-0 Yes [id number] 1{tbl} Take 1 [facility] azole-trime 3-25 tablet by ity of thoprim 00:00: mouth 2 [place] 800-160 mg 00 (two) Medical per tablet times Branch daily. sulfamethox 2020-0 Yes [id number] 1{tbl} Take 1 [facility] azole-trime 3-25 tablet by ity of thoprim 00:00: mouth 2 [place] 800-160 mg 00 (two) Medical per tablet times Branch daily. sulfamethox 2020-0 Yes [id number] 1{tbl} Take 1 [facility] azole-trime 3-25 tablet by ity of thoprim 00:00: mouth 2 [place] 800-160 mg 00 (two) Medical per tablet times Branch daily. sulfamethox 2020-0 Yes [id number] 1{tbl} Take 1 [facility] azole-trime 3-25 tablet by ity of thoprim 00:00: mouth 2 [place] 800-160 mg 00 (two) Medical per tablet times Branch daily. sulfamethox 2020-0 Yes [id number] 1{tbl} Take 1 [facility] azole-trime 3-25 tablet by ity of thoprim 00:00: mouth 2 [place] 800-160 mg 00 (two) Medical per tablet times Branch daily. sulfamethox 2020-0 Yes [id number] 1{tbl} Take 1 [facility] azole-trime 3-25 tablet by ity of thoprim 00:00: mouth 2 [place] 800-160 mg 00 (two) Medical per tablet times Branch daily. sulfamethox 2020-0 Yes [id number] 1{tbl} Take 1 [facility] azole-trime 3-25 tablet by ity of thoprim 00:00: mouth 2 [place] 800-160 mg 00 (two) Medical per tablet times Branch daily. sulfamethox 2020-0 Yes [id number] 1{tbl} Take 1 [facility] azole-trime 3-25 tablet by ity of thoprim 00:00: mouth 2 [place] 800-160 mg 00 (two) Medical per tablet times Branch daily. sulfamethox 2020-0 Yes [id number] 1{tbl} Take 1 [facility] azole-trime 3-25 tablet by ity of thoprim 00:00: mouth 2 [place] 800-160 mg 00 (two) Medical per tablet times Branch daily. sulfamethox 2020-0 Yes [id number] 1{tbl} Take 1 [facility] azole-trime 3-25 tablet by ity of thoprim 00:00: mouth 2 [place] 800-160 mg 00 (two) Medical per tablet times Branch daily. sulfamethox 2020-0 Yes [id number] 1{tbl} Take 1 [facility] azole-trime 3-25 tablet by ity of thoprim 00:00: mouth 2 [place] 800-160 mg 00 (two) Medical per tablet times Branch daily. sulfamethox 2020-0 Yes [id number] 1{tbl} Take 1 [facility] azole-trime 3-25 tablet by ity of thoprim 00:00: mouth 2 [place] 800-160 mg 00 (two) Medical per tablet times Branch daily. sulfamethox 2020-0 Yes [id number] 1{tbl} Take 1 [facility] azole-trime 3-25 tablet by ity of thoprim 00:00: mouth 2 [place] 800-160 mg 00 (two) Medical per tablet times Branch daily. sulfamethox 2020-0 Yes [id number] 1{tbl} Take 1 [facility] azole-trime 3-25 tablet by ity of thoprim 00:00: mouth 2 [place] 800-160 mg 00 (two) Medical per tablet times Branch daily. sulfamethox 2020-0 Yes [id number] 1{tbl} Take 1 [facility] azole-trime 3-25 tablet by ity of thoprim 00:00: mouth 2 [place] 800-160 mg 00 (two) Medical per tablet times Branch daily. sulfamethox 2020-0 Yes [id number] 1{tbl} Take 1 [facility] azole-trime 3-25 tablet by ity of thoprim 00:00: mouth 2 [place] 800-160 mg 00 (two) Medical per tablet times Branch daily. sulfamethox 2020-0 Yes [id number] 1{tbl} Take 1 [facility] azole-trime 3-25 tablet by ity of thoprim 00:00: mouth 2 [place] 800-160 mg 00 (two) Medical per tablet times Branch daily. sulfamethox 2020-0 Yes [id number] 1{tbl} Take 1 [facility] azole-trime 3-25 tablet by ity of thoprim 00:00: mouth 2 [place] 800-160 mg 00 (two) Medical per tablet times Branch daily. sulfamethox 2020-0 Yes [id number] 1{tbl} Take 1 [facility] azole-trime 3-25 tablet by ity of thoprim 00:00: mouth 2 [place] 800-160 mg 00 (two) Medical per tablet times Branch daily. sulfamethox 2020-0 Yes [id number] 1{tbl} Take 1 [facility] azole-trime 3-25 tablet [...] by ity of tablet 01:16: mouth 3 [place] [address] (three) Medical times Branch daily as needed [...] by ity of tablet 01:16: mouth 3 [place] [address] (three) Medical times Branch daily as needed [...] by ity of tablet 01:16: mouth 3 [place] [address] (three) Medical times Branch daily as needed [...] by ity of tablet 01:16: mouth 3 [place] [address] (three) Medical times Branch daily as needed [...] by ity of tablet 01:16: mouth 3 [place] [address] (three) Medical times Branch daily as needed [...] by ity of tablet 01:16: mouth 3 [place] [address] (three) Medical times Branch daily as needed [...] by ity of tablet 01:16: mouth 3 [place] [address] (three) Medical times Branch daily as needed [...] by ity of tablet 01:16: mouth 3 [place] [address] (three) Medical times Branch daily as needed [...] by ity of tablet 01:16: mouth 3 [place] [address] (three) Medical times Branch daily as needed [...] by ity of tablet 01:16: mouth 3 [place] [address] (three) Medical times Branch daily as needed [...] by ity of tablet 01:16: mouth 3 [place] [address] (three) Medical times Branch daily as needed [...] by ity of tablet 01:16: mouth 3 [place] [address] (three) Medical times Branch daily as needed [...] mg by ity of tablet 00:22: mouth [place] [id number] every 6 Medical (six) Branch hours as [...] mg by ity of capsule 00:13: mouth [address] [place] [address] 40 (two) Medical times Branch daily. gabapentin 2020-0 Yes 100mg Take 100 Un osbal[facility] 100 mg 3-07 mg by ity of capsule 00:13: mouth [address] [place] [address] 40 (two) Medical times Branch daily. gabapentin 2020-0 Yes 100mg Take 100 Un [place] 100 mg 3-07 mg by ity of capsule 00:13: mouth 2 [place] 40 (two) Medical times Branch daily. gabapentin 2020-0 Yes 100mg Take 100 Un [place] 100 mg 3-07 mg by ity of capsule 00:13: mouth [address] [place] [address] 40 (two) Medical times Branch daily. gabapentin [...] mg by ity of capsule 00:13: mouth [address] [place] [address] 40 (two) Medical times Branch daily. gabapentin 2020-0 Yes 100mg Take 100 Un [place] 100 mg 3-07 mg by ity of capsule 00:13: mouth [address] [place] [address] 40 (two) Medical times Branch daily. gabapentin 2020-0 Yes 100mg Take 100 Un [place] 100 mg 3-07 mg by ity of capsule 00:13: mouth [address] [place] [address] 40 (two) Medical times Branch daily. gabapentin 2020-0 Yes 100mg Take 100 [facility] [place] 100 mg 3-07 mg by ity of capsule 00:13: mouth 2 [place] 40 (two) Medical times Branch daily. gabapentin 2020-0 Yes 100mg Take 100 Un [place] 100 mg 3-07 mg by ity of capsule 00:13: mouth [address] [place] [address] 40 (two) Medical times Branch daily. gabapentin [...] mg by ity of capsule 00:13: mouth [address] [place] [address] 40 (two) Medical times Branch daily. gabapentin 2020-0 Yes 100mg Take 100 Un [place] 100 mg 3-07 mg by ity of capsule 00:13: mouth 2 [place] 40 (two) Medical times Branch daily. gabapentin 2020-0 Yes 100mg Take 100 Un [place] 100 mg 3-07 mg by ity of capsule 00:13: mouth [address] [place] [address] 40 (two) Medical times Branch daily. gabapentin [...] mg by ity of capsule 00:13: mouth [address] [place] [address] 40 (two) Medical times Branch daily. gabapentin 2020-0 Yes 100mg Take 100 Un [place] 100 mg 3-07 mg by ity of capsule 00:13: mouth 2 [place] 40 (two) Medical times Branch daily. gabapentin 2020-0 Yes 100mg Take 100 Un [place] 100 mg 3-07 mg by ity of capsule 00:13: mouth [address] [place] [address] 40 (two) Medical times Branch daily. gabapentin [...] mouth 3 ity of tablet 00:01: (three) [place] [address] times Medical daily with Branch meals. hydrALAZINE 2020-0 Yes 50mg Take 50 mg [facility] 50 mg 3-07 by mouth 3 ity of tablet 00:01: (three) [place] [address] times Medical daily with Branch meals. hydrALAZINE [...] mouth 3 ity of tablet 00:01: (three) [place] [address] times Medical daily with Branch meals. hydrALAZINE [...] by mouth 3 ity of tablet 00:01: ([facility]) [place] 47 times Medical daily with Branch meals. hydrALAZINE 2020-0 Yes 50mg Take 50 mg [facility] 50 mg 3-07 by mouth 3 ity of tablet 00:01: (three) [place] 47 times Medical daily with Branch meals. hydrALAZINE 2020-0 Yes 50mg Take 50 mg [facility] 50 mg 3-07 by mouth 3 ity of tablet 00:01: ([facility]) [place] 47 times Medical daily with Branch meals. hydrALAZINE 2020-0 Yes 50mg Take 50 mg [facility] 50 mg 3-07 by mouth 3 ity of tablet 00:01: ([facility]) [place] 47 times Medical daily with Branch meals. hydrALAZINE 2020-0 Yes 50mg Take 50 mg [facility] 50 mg 3-07 by mouth 3 ity of tablet 00:01: ([facility]) [place] 47 times Medical daily with Branch meals. hydrALAZINE 2020-0 Yes 50mg Take 50 mg [facility] 50 mg 3-07 by mouth 3 ity of tablet 00:01: ([facility]) [place] 47 times Medical daily with Branch meals. hydrALAZINE 2020-0 Yes 50mg Take 50 mg [facility] 50 mg 3-07 by mouth 3 ity of tablet 00:01: ([facility]) [place] 47 times Medical daily with Branch meals. hydrALAZINE 2020-0 Yes 50mg Take 50 mg [facility] 50 mg 3-07 by mouth 3 ity of tablet 00:01: ([facility]) [place] 47 times Medical daily with Branch meals. hydrALAZINE 2020-0 Yes 50mg Take 50 mg [facility] 50 mg 3-07 by mouth 3 ity of tablet 00:01: ([facility]) [place] 47 times Medical daily with [...] by mouth 3 ity of tablet 00:01: ([facility]) [place] 47 times Medical daily with [...] by mouth 3 ity of tablet 00:01: ([facility]) [place] 47 times Medical daily with Branch meals. hydrALAZINE 2020-0 Yes 50mg Take 50 mg [facility] 50 mg 3-07 by mouth 3 ity of tablet 00:01: ([facility]) [place] [address] times Medical daily with Branch meals. hydrALAZINE 2020-0 Yes 50mg Take 50 mg [facility] 50 mg 3-07 by mouth 3 ity of tablet 00:01: ([facility]) [place] [address] times Medical daily with Branch meals. hydrALAZINE 2020-0 Yes 50mg Take 50 mg [facility] 50 mg 3-07 by mouth 3 ity of tablet 00:01: ([facility]) [place] [address] times Medical daily with Branch meals. hydrALAZINE 2020-0 Yes 50mg Take 50 mg [facility] 50 mg 3-07 by mouth 3 ity of tablet 00:01: ([facility]) [place] [address] times Medical daily with Branch meals. hydrALAZINE 2020-0 Yes 50mg Take 50 mg [facility] 50 mg 3-07 by mouth 3 ity of tablet 00:01: ([facility]) [place] [address] times Medical daily with Branch meals. hydrALAZINE 2020-0 Yes 50mg Take 50 mg [facility] 50 mg 3-07 by mouth 3 ity of tablet 00:01: ([facility]) [place] [address] times Medical daily with Branch meals. hydrALAZINE 2020-0 Yes 50mg Take 50 mg [facility] 50 mg 3-07 by mouth 3 ity of tablet 00:01: ([facility]) [place] [address] times Medical daily with Branch meals. hydrALAZINE 2020-0 Yes 50mg Take 50 mg [facility] 50 mg 3-07 by mouth 3 ity of tablet 00:01: ([facility]) [place] [address] times Medical daily with Branch meals. hydrALAZINE 2020-0 Yes 50mg Take 50 mg [facility] 50 mg 3-07 by mouth 3 ity of tablet 00:01: ([facility]) [place] 47 times Medical daily with [...] mouth 3 ity of tablet 00:01: (three) [place] [address] times Medical daily with Branch meals. hydrALAZINE 2020-0 Yes 50mg Take 50 mg [facility] 50 mg 3-07 by mouth 3 ity of tablet 00:01: ([facility]) [place] [address] times Medical daily with Branch meals. hydrALAZINE 2020-0 Yes 50mg Take 50 mg [facility] 50 mg 3-07 by mouth 3 ity of tablet 00:01: ([facility]) [place] [address] times Medical daily with Branch meals. hydrALAZINE 2020-0 Yes 50mg Take 50 mg [facility] 50 mg 3-07 by mouth 3 ity of tablet 00:01: ([facility]) [place] [address] times Medical daily with Branch meals. hydrALAZINE 2020-0 Yes 50mg Take 50 mg [facility] 50 mg 3-07 by mouth 3 ity of tablet 00:01: (three) [place] [address] times Medical daily with Branch meals. hydrALAZINE 2020-0 Yes 50mg Take 50 mg [facility] 50 mg 3-07 by mouth 3 ity of tablet 00:01: (three) [place] [address] times Medical daily with Branch meals. hydrALAZINE 2020-0 Yes 50mg Take 50 mg [facility] 50 mg 3-07 by mouth 3 ity of tablet 00:01: (three) [place] [address] times Medical daily with Branch meals. hydrALAZINE 2020-0 Yes 50mg Take 50 mg [facility] 50 mg 3-07 by mouth 3 ity of tablet 00:01: (three) [place] [address] times Medical daily with Branch meals. hydrALAZINE 2020-0 Yes 50mg Take 50 mg [facility] 50 mg 3-07 by mouth 3 ity of tablet 00:01: (three) [place] [address] times Medical daily with Branch meals. hydrALAZINE [...] ity of tablet 19:16: mouth 3 [place] 39 (three) Medical [...] needed for tablet Pain. SERTraline 2020-0 Yes [id number] 25mg Take 1 U nivers 25 mg 3-06 tablet by ity of tablet 00:00: mouth [place] 00 daily. Medical Branch SERTraline 2020-0 Yes [id number] 25mg Take 1 U nivers 25 mg 3-06 tablet by ity of tablet 00:00: mouth [place] 00 daily. Medical Branch SERTraline 2020-0 Yes [id number] 25mg Take 1 U nivers 25 mg 3-06 tablet by ity of tablet 00:00: mouth [place] 00 daily. Medical Branch SERTraline 2020-0 Yes [id number] 25mg Take 1 U nivers 25 mg 3-06 tablet by ity of tablet 00:00: mouth [place] 00 daily. Medical Branch SERTraline 2020-0 Yes [id number] 25mg Take 1 U nivers 25 mg 3-06 tablet by ity of tablet 00:00: mouth [place] 00 daily. Medical Branch SERTraline 2020-0 Yes [id number] 25mg Take 1 U nivers 25 mg 3-06 tablet by ity of tablet 00:00: mouth [place] 00 daily. Medical Branch SERTraline 2020-0 Yes [id number] 25mg Take 1 U nivers 25 mg 3-06 tablet by ity of tablet 00:00: mouth [place] 00 daily. Medical Branch SERTraline 2020-0 Yes [id number] 25mg Take 1 U nivers 25 mg 3-06 tablet by ity of tablet 00:00: mouth [place] 00 daily. Medical Branch SERTraline 2020-0 Yes [id number] 25mg Take 1 U nivers 25 mg 3-06 tablet by ity of tablet 00:00: mouth [place] 00 daily. Medical Branch SERTraline 2020-0 Yes [id number] 25mg Take 1 U nivers 25 mg 3-06 tablet by ity of tablet 00:00: mouth [place] 00 daily. Medical Branch SERTraline 2020-0 Yes [id number] 25mg Take 1 U nivers 25 mg 3-06 tablet by ity of tablet 00:00: mouth [place] 00 daily. Medical Branch SERTraline 2020-0 Yes [id number] 25mg Take 1 U nivers 25 mg 3-06 tablet by ity of tablet 00:00: mouth [place] 00 daily. Medical Branch SERTraline 2020-0 Yes [id number] 25mg Take 1 U nivers 25 mg 3-06 tablet by ity of tablet 00:00: mouth [place] 00 daily. Medical Branch SERTraline 2020-0 2020- No [id number] 25mg Take 1 [facility] 25 mg 3-06 05-21 tablet by ity of tablet 00:00: 00:00 mouth [place] 00 :00 daily. Medical Branch SERTraline 2020-0 2020- No [id number] 25mg Take 1 [facility] 25 mg 3-06 [...] 3-01 by mouth ity of 00:00: at [place] [address] bedtime. I Medical ADVISE Branch AGAINST TAKING THIS MEDICATION DUE TO THE RISKS. [facility] zolpidem 10 2019-0 Yes 10mg Take 10 mg [facility] mg tablet 3-01 by mouth ity of 00:00: at [place] [address] bedtime. I Medical ADVISE Branch AGAINST TAKING THIS MEDICATION DUE TO THE RISKS. [facility] zolpidem 10 2019-0 Yes 10mg Take 10 mg [facility] mg tablet 3-01 by mouth ity of 00:00: at [place] [address] bedtime. I Medical ADVISE Branch AGAINST TAKING THIS MEDICATION DUE TO THE RISKS. [facility] zolpidem 10 2019-0 Yes 10mg Take 10 mg [facility] mg tablet 3-01 by mouth ity of 00:00: at [place] [address] bedtime. I Medical ADVISE Branch AGAINST TAKING THIS MEDICATION DUE TO THE RISKS. [facility] zolpidem 10 2019-0 Yes 10mg Take 10 mg [facility] mg tablet 3-01 by mouth ity of 00:00: at [place] [address] bedtime. I Medical ADVISE Branch AGAINST TAKING THIS MEDICATION DUE TO THE RISKS. [facility] zolpidem 10 2019-0 Yes 10mg Take 10 mg [facility] mg tablet 3-01 by mouth ity of 00:00: at [place] [address] bedtime. I Medical ADVISE Branch AGAINST TAKING THIS MEDICATION DUE TO THE RISKS. [facility] zolpidem 10 2020-0 Yes 10mg Take 10 mg [facility] mg tablet 3-01 by mouth ity of 00:00: at [place] 00 bedtime. I Medical ADVISE Branch AGAINST TAKING THIS MEDICATION DUE TO THE RISKS. [facility] zolpidem 10 2020-0 Yes 10mg Take 10 mg [facility] mg tablet 3-01 by mouth ity of 00:00: at [place] 00 bedtime. I Medical ADVISE Branch AGAINST TAKING THIS MEDICATION DUE TO THE RISKS. [facility] zolpidem 10 2020-0 Yes 10mg Take 10 mg [facility] mg tablet 3-01 by mouth ity of 00:00: at [place] [address] bedtime. I Medical ADVISE Branch AGAINST TAKING THIS MEDICATION DUE TO THE RISKS. [facility] zolpidem 10 2020-0 Yes 10mg Take 10 mg [facility] mg tablet 3-01 by mouth ity of 00:00: at [place] [address] bedtime. I Medical ADVISE Branch AGAINST TAKING THIS MEDICATION DUE TO THE RISKS. [facility] zolpidem 10 2020-0 Yes 10mg Take 10 mg [facility] mg tablet 3-01 by mouth ity of 00:00: at [place] [address] bedtime. I Medical ADVISE Branch AGAINST TAKING THIS MEDICATION DUE TO THE RISKS. [facility] zolpidem 10 2020-0 Yes 10mg Take 10 mg [facility] mg tablet 3-01 by mouth ity of 00:00: at [place] [address] bedtime. I Medical ADVISE Branch AGAINST TAKING THIS MEDICATION DUE TO THE RISKS. [facility] zolpidem 10 2020-0 Yes 10mg Take 10 mg [facility] mg tablet 3-01 by mouth ity of 00:00: at [place] [address] bedtime. I Medical ADVISE Branch AGAINST TAKING THIS MEDICATION DUE TO THE RISKS. [facility] zolpidem 10 2020-0 Yes 10mg Take 10 mg [facility] mg tablet 3-01 by mouth ity of 00:00: at [place] [address] bedtime. I Medical ADVISE Branch AGAINST TAKING THIS MEDICATION DUE TO THE RISKS. [facility] zolpidem 10 2020-0 Yes 10mg Take 10 mg [facility] mg tablet 3-01 by mouth ity of 00:00: at [place] [address] bedtime. I Medical ADVISE Branch AGAINST TAKING THIS MEDICATION DUE TO THE RISKS. [facility] zolpidem 10 2020-0 Yes 10mg Take 10 mg [facility] mg tablet 3-01 by mouth ity of 00:00: at [place] [address] bedtime. I Medical ADVISE Branch AGAINST TAKING THIS MEDICATION DUE TO THE RISKS. [facility] zolpidem 10 2020-0 Yes 10mg Take 10 mg [facility] mg tablet 3-01 by mouth ity of 00:00: at [place] 00 bedtime. I Medical ADVISE Branch AGAINST TAKING THIS MEDICATION DUE TO THE RISKS. [facility] zolpidem 10 2020-0 Yes 10mg Take 10 mg [facility] mg tablet 3-01 by mouth ity of 00:00: at [place] 00 bedtime. I Medical ADVISE Branch AGAINST TAKING THIS MEDICATION DUE TO THE RISKS. [facility] zolpidem 10 2020-0 Yes 10mg Take 10 mg [facility] mg tablet 3-01 by mouth ity of 00:00: at [place] [address] bedtime. I Medical ADVISE Branch AGAINST TAKING THIS MEDICATION DUE TO THE RISKS. [facility] zolpidem 10 2020-0 Yes 10mg Take 10 mg [facility] mg tablet 3-01 by mouth ity of 00:00: at [place] [address] bedtime. I Medical ADVISE Branch AGAINST TAKING THIS MEDICATION DUE TO THE RISKS. [facility] zolpidem 10 2020-0 Yes 10mg Take 10 mg [facility] mg tablet 3-01 by mouth ity of 00:00: at [place] [address] bedtime. I Medical ADVISE Branch AGAINST TAKING THIS MEDICATION DUE TO THE RISKS. [facility] zolpidem 10 2020-0 Yes 10mg Take 10 mg [facility] mg tablet 3-01 by mouth ity of 00:00: at [place] [address] bedtime. [facility] zolpidem 10 2020-0 Yes 10mg Take 10 mg [facility] mg tablet 3-01 by mouth ity of 00:00: at [place] [address] bedtime. [facility] zolpidem 10 2020-0 Yes 10mg Take 10 mg [facility] mg tablet 3-01 by mouth ity of 00:00: at [place] [address] bedtime. [facility] Branch zolpidem 10 2020-0 Yes 10mg Take 10 mg [facility] mg tablet 3-01 by mouth ity of 00:00: at [place] [address] bedtime. I Medical ADVISE Branch AGAINST TAKING THIS MEDICATION DUE TO THE RISKS. [facility] zolpidem 10 2020-0 Yes 10mg Take 10 mg [facility] mg tablet 3-01 by mouth ity of 00:00: at [place] [address] bedtime. I Medical ADVISE Branch AGAINST TAKING THIS MEDICATION DUE TO THE RISKS. [facility] zolpidem 10 2020-0 Yes 10mg Take 10 mg [facility] mg tablet 3-01 by mouth ity of 00:00: at [place] [address] bedtime. I Medical ADVISE Branch AGAINST TAKING THIS MEDICATION DUE TO THE RISKS. [facility] zolpidem 10 2020-0 Yes 10mg Take 10 mg [facility] mg tablet 3-01 by mouth ity of 00:00: at [place] [address] bedtime. I Medical ADVISE Branch AGAINST TAKING THIS MEDICATION DUE TO THE RISKS. [facility] zolpidem 10 2020-0 Yes 10mg Take 10 mg [facility] mg tablet 3-01 by mouth ity of 00:00: at [place] [address] bedtime. I Medical ADVISE Branch AGAINST TAKING THIS MEDICATION DUE TO THE RISKS. [facility] zolpidem 10 2020-0 Yes 10mg Take 10 mg [facility] mg tablet 3-01 by mouth ity of 00:00: at [place] [address] bedtime. I Medical ADVISE Branch AGAINST TAKING THIS MEDICATION DUE TO THE RISKS. [facility] zolpidem 10 2020-0 Yes 10mg Take 10 mg [facility] mg tablet 3-01 by mouth ity of 00:00: at [place] [address] bedtime. I Medical ADVISE Branch AGAINST TAKING THIS MEDICATION DUE TO THE RISKS. [facility] zolpidem 10 2020-0 Yes 10mg Take 10 mg [facility] mg tablet 3-01 by mouth ity of 00:00: at [place] [address] bedtime. I Medical ADVISE Branch AGAINST TAKING THIS MEDICATION DUE TO THE RISKS. [facility] zolpidem 10 2020-0 Yes 10mg Take 10 mg [facility] mg tablet 3-01 by mouth ity of 00:00: at [place] [address] bedtime. I Medical ADVISE Branch AGAINST TAKING THIS MEDICATION DUE TO THE RISKS. [facility] zolpidem 10 2020-0 Yes 10mg Take 10 mg [facility] mg tablet 3-01 by mouth ity of 00:00: at [place] [address] bedtime. I Medical ADVISE Branch AGAINST TAKING THIS MEDICATION DUE TO THE RISKS. [facility] zolpidem 10 2020-0 Yes 10mg Take 10 mg [facility] mg tablet 3-01 by mouth ity of 00:00: at [place] [address] bedtime. I Medical ADVISE Branch AGAINST TAKING THIS MEDICATION DUE TO THE RISKS. [facility] zolpidem 10 2020-0 Yes 10mg Take 10 mg [facility] mg tablet 3-01 by mouth ity of 00:00: at [place] [address] bedtime. I Medical ADVISE Branch AGAINST TAKING THIS MEDICATION DUE TO THE RISKS. [facility] zolpidem 10 2020-0 Yes 10mg Take 10 mg [facility] mg tablet 3-01 by mouth ity of 00:00: at [place] 00 bedtime. I Medical ADVISE Branch AGAINST TAKING THIS MEDICATION DUE TO THE RISKS. [facility] zolpidem 10 2020-0 Yes 10mg Take 10 mg [facility] mg tablet 3-01 by mouth ity of 00:00: at [place] [address] bedtime. I Medical ADVISE Branch AGAINST TAKING THIS MEDICATION DUE TO THE RISKS. [facility] zolpidem 10 2020-0 Yes 10mg Take 10 mg [facility] mg tablet 3-01 by mouth ity of 00:00: at [place] [address] bedtime. I Medical ADVISE Branch AGAINST TAKING THIS MEDICATION DUE TO THE RISKS. [facility] zolpidem 10 2020-0 Yes 10mg Take 10 mg [facility] mg tablet 3-01 by mouth ity of 00:00: at [place] [address] bedtime. I Medical ADVISE Branch AGAINST TAKING THIS MEDICATION DUE TO THE RISKS. [facility] zolpidem 10 2020-0 Yes 10mg Take 10 mg [facility] mg tablet 3-01 by mouth ity of 00:00: at [place] [address] bedtime. I Medical ADVISE Branch AGAINST TAKING THIS MEDICATION DUE TO THE RISKS. [facility] zolpidem 10 2020-0 Yes 10mg Take 10 mg [facility] mg tablet 3-01 by mouth ity of 00:00: at [place] [address] bedtime. I Medical ADVISE Branch AGAINST TAKING THIS MEDICATION DUE TO THE RISKS. [facility] zolpidem 10 2020-0 Yes 10mg Take 10 mg [facility] mg tablet 3-01 by mouth ity of 00:00: at [place] [address] bedtime. I Medical ADVISE Branch AGAINST TAKING THIS MEDICATION DUE TO THE RISKS. [facility] zolpidem 10 2020-0 Yes 10mg Take 10 mg [facility] mg tablet 3-01 by mouth ity of 00:00: at [place] [address] bedtime. I Medical ADVISE Branch AGAINST TAKING THIS MEDICATION DUE TO THE RISKS. [facility] zolpidem 10 2020-0 Yes 10mg Take 10 mg [facility] mg tablet 3-01 by mouth ity of 00:00: at [place] [address] bedtime. I Medical ADVISE Branch AGAINST TAKING THIS MEDICATION DUE TO THE RISKS. [facility] zolpidem 10 2020-0 Yes 10mg Take 10 mg [facility] mg tablet 3-01 by mouth ity of 00:00: at [place] [address] bedtime. I Medical ADVISE Branch AGAINST TAKING THIS MEDICATION DUE TO THE RISKS. [facility] zolpidem 10 2020-0 Yes 10mg Take 10 mg [facility] mg tablet 3-01 by mouth ity of 00:00: at [place] 00 bedtime. I Medical ADVISE Branch AGAINST TAKING THIS MEDICATION DUE TO THE RISKS. [facility] zolpidem 10 2020-0 Yes 10mg Take 10 mg [facility] mg tablet 3-01 by mouth ity of 00:00: at [place] 00 bedtime. I Medical ADVISE Branch AGAINST TAKING THIS MEDICATION DUE TO THE RISKS. [facility] zolpidem 10 2020-0 Yes 10mg Take 10 mg [facility] mg tablet 3-01 by mouth ity of 00:00: at [place] 00 bedtime. I Medical ADVISE Branch AGAINST TAKING THIS MEDICATION DUE TO THE RISKS. [facility] zolpidem 10 2020-0 Yes 10mg Take 10 mg [facility] mg tablet 3-01 by mouth ity of 00:00: at [place] [address] bedtime. I Medical ADVISE Branch AGAINST TAKING THIS MEDICATION DUE TO THE RISKS. [facility] zolpidem 10 2020-0 Yes 10mg Take 10 mg [facility] mg tablet 3-01 by mouth ity of 00:00: at [place] [address] bedtime. I Medical ADVISE Branch AGAINST TAKING THIS MEDICATION DUE TO THE RISKS. [facility] zolpidem 10 2020-0 Yes 10mg Take 10 mg [facility] mg tablet 3-01 by mouth ity of 00:00: at [place] [address] bedtime. I Medical ADVISE Branch AGAINST TAKING THIS MEDICATION DUE TO THE RISKS. [facility] zolpidem 10 2020-0 Yes 10mg Take 10 mg [facility] mg tablet 3-01 by mouth ity of 00:00: at [place] [address] bedtime. I Medical ADVISE Branch AGAINST TAKING THIS MEDICATION DUE TO THE RISKS. [facility] zolpidem 10 2020-0 Yes 10mg Take 10 mg [facility] mg tablet 3-01 by mouth ity of 00:00: at [place] [address] bedtime. I Medical ADVISE Branch AGAINST TAKING THIS MEDICATION DUE TO THE RISKS. [facility] zolpidem 10 2020-0 Yes 10mg Take 10 mg [facility] mg tablet 3-01 by mouth ity of 00:00: at [place] [address] bedtime. I Medical ADVISE Branch AGAINST TAKING THIS MEDICATION DUE TO THE RISKS. [facility] zolpidem 10 2020-0 Yes 10mg Take 10 mg [facility] mg tablet 3-01 by mouth ity of 00:00: at [place] [address] bedtime. I Medical ADVISE Branch AGAINST TAKING THIS MEDICATION DUE TO THE RISKS. [facility] zolpidem 10 2020-0 Yes 10mg Take 10 mg [facility] mg tablet 3-01 by mouth ity of 00:00: at [place] 00 bedtime. I Medical ADVISE Branch AGAINST TAKING THIS MEDICATION DUE TO THE RISKS. [facility] ondansetron 2020-0 Yes 4mg Take 4 [...] ity of tablet 00:00: mouth at [place] bedtime. Medical Branch butorphanol 2020-0 Yes USE 1 Unive rs 10 mg/mL 2-07 SPRAY IN ity of nasal spray 00:00: ONE [place] 00 NOSTRIL Medical EVERY 8 Branch HOURS NEEDED FOR HEADACHE amitriptyli 2020-0 Yes 25mg Take 1 Univ ers ne 25 mg 2-07 tablet by ity of tablet 00:00: mouth at [place] 00 bedtime. Medical Branch butorphanol 2020-0 Yes USE 1 Unive rs 10 mg/mL 2-07 SPRAY IN ity of nasal spray 00:00: ONE [place] [address] NOSTRIL Medical EVERY 8 Branch HOURS NEEDED FOR HEADACHE butorphanol 2020-0 Yes USE 1 Unive rs 10 mg/mL 2-07 SPRAY IN ity of nasal spray 00:00: ONE [place] [address] NOSTRIL Medical EVERY 8 Branch HOURS NEEDED [...] by mouth ity of 00:00: every 12 [place] [address] (twelve) Medical hours. Branch sotalol 80 2020-0 Yes 80mg Take 80 mg U nivers mg tablet 1-16 by mouth ity of 00:00: every 12 [place] [address] (twelve) Medical hours. Branch sotalol 80 2020-0 Yes 80mg Take 80 mg U nivers mg tablet 1-16 by mouth ity of 00:00: every 12 [place] [address] (twelve) Medical hours. Branch sotalol 80 2020-0 Yes 80mg Take 80 mg U nivers mg tablet 1-16 by mouth ity of 00:00: every 12 [place] [address] (twelve) Medical hours. Branch sotalol 80 2020-0 [...] by mouth ity of 00:00: every 12 [place] [address] (twelve) Medical hours. Branch sotalol 80 2020-0 Yes 80mg Take 80 mg U nivers mg tablet 1-16 by mouth ity of 00:00: every 12 [place] [address] (twelve) Medical hours. Branch sotalol 80 2020-0 Yes 80mg Take 80 mg U nivers mg tablet 1-16 by mouth ity of 00:00: every 12 [place] [address] (twelve) Medical hours. Branch sotalol 80 2020-0 Yes 80mg Take 80 mg U nivers mg tablet 1-16 by mouth ity of 00:00: every 12 [place] [address] (twelve) Medical hours. Branch sotalol 80 2020-0 Yes 80mg Take 80 mg U nivers mg tablet 1-16 by mouth ity of 00:00: every 12 [place] [address] (twelve) Medical hours. Branch sotalol 80 2020-0 Yes 80mg Take 80 mg U nivers mg tablet 1-16 by mouth ity of 00:00: every 12 [place] 00 (twelve) Medical hours. Branch butorphanol 2019-1 Yes USE 1 Unive rs 10 mg/mL 2-20 SPRAY IN ity of nasal spray 00:00: ONE [place] [address] NOSTRIL Medical EVERY 8 Branch HOURS NEEDED FOR HEADACHE butorphanol 2019- Yes USE 1 Unive rs 10 mg/mL 2-20 SPRAY IN ity of nasal spray 00:00: ONE [place] [address] NOSTRIL Medical EVERY 8 Branch HOURS NEEDED FOR HEADACHE butorphanol 2019- Yes USE 1 Unive rs 10 mg/mL 2-20 SPRAY IN ity of nasal spray 00:00: ONE [place] [address] NOSTRIL Medical EVERY 8 Branch HOURS NEEDED FOR HEADACHE butorphanol 2018-02 Yes USE 1 Unive rs 10 mg/mL 2-20 SPRAY IN ity of nasal spray 00:00: ONE [place] [address] NOSTRIL Medical EVERY 8 Branch HOURS NEEDED [...] mouth ity o f tablet 00:00: daily. [address] pantoprazol 2018-02 Yes 40mg Take 40 mg Univers e 40 mg EC 2-17 by mouth ity o f tablet 00:00: daily. [address] pantoprazol 2018-02 Yes 40mg Take 40 mg Univers e 40 mg EC 2-17 by mouth ity o f tablet 00:00: daily. [address] pantoprazol 2018-02 Yes 40mg Take 40 mg Univers e 40 mg EC 2-17 by mouth ity o f tablet 00:00: daily. [address] pantoprazol 2018-02 Yes 40mg Take 40 mg Univers e 40 mg EC 2-17 by mouth ity o f tablet 00:00: daily. [address] pantoprazol 2018-02 Yes 40mg Take 40 mg Univers e 40 mg EC 2-17 by mouth ity o f tablet 00:00: daily. [address] pantoprazol 2018-02 Yes 40mg Take 40 mg Univers e 40 mg EC 2-17 by mouth ity o f tablet 00:00: daily. [address] pantoprazol 2018-02 Yes 40mg Take 40 mg Univers e 40 mg EC 2-17 by mouth ity o f tablet 00:00: daily. [place] [facility] pantoprazol 2018-02 Yes 40mg Take 40 mg Univers e 40 mg EC 2-17 by mouth ity o f tablet 00:00: daily. [address] pantoprazol 2018-02 Yes 40mg Take 40 mg Univers e 40 mg EC 2-17 by mouth ity o f tablet 00:00: daily. [place] [facility] pantoprazol 2018-02 Yes 40mg Take 40 mg Univers e 40 mg EC 2-17 by mouth ity o f tablet 00:00: daily. [place] [facility] pantoprazol 2018-02 Yes 40mg Take 40 mg Univers e 40 mg EC 2-17 by mouth ity o f tablet 00:00: daily. [address] pantoprazol 2018-02 Yes 40mg Take 40 mg Univers e 40 mg EC 2-17 by mouth ity o f tablet 00:00: daily. [address] pantoprazol 2018-02 Yes 40mg Take 40 mg Univers e 40 mg EC 2-17 by mouth ity o f tablet 00:00: daily. [address] pantoprazol 2018-02 Yes 40mg Take 40 mg Univers e 40 mg EC 2-17 by mouth ity o f tablet 00:00: daily. [address] pantoprazol 2018-02 Yes 40mg Take 40 mg Univers e 40 mg EC 2-17 by mouth ity o f tablet 00:00: daily. [address] pantoprazol 2018-02 Yes 40mg Take 40 mg Univers e 40 mg EC 2-17 by mouth ity o f tablet 00:00: daily. [address] pantoprazol 2018-02 Yes 40mg Take 40 mg Univers e 40 mg EC 2-17 by mouth ity o f tablet 00:00: daily. [address] pantoprazol 2018-02 Yes 40mg Take 40 mg Univers e 40 mg EC 2-17 by mouth ity o f tablet 00:00: daily. [address] pantoprazol 2018-02 Yes 40mg Take 40 mg Univers e 40 mg EC 2-17 by mouth ity o f tablet 00:00: daily. [address] pantoprazol 2018-02 Yes 40mg Take 40 mg Univers e 40 mg EC 2-17 by mouth ity o f tablet 00:00: daily. [place] [facility] pantoprazol 2018-02 Yes 40mg Take 40 mg Univers e 40 mg EC 2-17 by mouth ity o f tablet 00:00: daily. [place] [facility] pantoprazol 2018-02 Yes 40mg Take 40 mg Univers e 40 mg EC 2-17 by mouth ity o f tablet 00:00: daily. [place] [facility] pantoprazol 2018-02 Yes 40mg Take 40 mg Univers e 40 mg EC 2-17 by mouth ity o f tablet 00:00: daily. [place] [facility] pantoprazol 2018-02 Yes 40mg Take 40 mg Univers e 40 mg EC 2-17 by mouth ity o f tablet 00:00: daily. [place] [facility] pantoprazol 2018-02 Yes 40mg Take 40 mg Univers e 40 mg EC 2-17 by mouth ity o f tablet 00:00: daily. [place] [facility] pantoprazol 2018-02 Yes 40mg Take 40 mg Univers e 40 mg EC 2-17 by mouth ity o f tablet 00:00: daily. [place] [facility] pantoprazol 2018-02 Yes 40mg Take 40 mg Univers e 40 mg EC 2-17 by mouth ity o f tablet 00:00: daily. [place] [facility] pantoprazol 2018-02 Yes 40mg Take 40 mg Univers e 40 mg EC 2-17 by mouth ity o f tablet 00:00: daily. [place] [facility] pantoprazol 2018-02 Yes 40mg Take 40 mg Univers e 40 mg EC 2-17 by mouth ity o f tablet 00:00: daily. [place] [facility] pantoprazol 2018-02 Yes 40mg Take 40 mg Univers e 40 mg EC 2-17 by mouth ity o f tablet 00:00: daily. [place] [facility] pantoprazol 2018-02 Yes 40mg Take 40 mg Univers e 40 mg EC 2-17 by mouth ity o f tablet 00:00: daily. [place] [facility] pantoprazol 2018-02 Yes 40mg Take 40 mg Univers e 40 mg EC 2-17 by mouth ity o f tablet 00:00: daily. [address] pantoprazol 2018-02 Yes 40mg Take 40 mg Univers e 40 mg EC 2-17 by mouth ity o f tablet 00:00: daily. [address] pantoprazol 2018-02 Yes 40mg Take 40 mg Univers e 40 mg EC 2-17 by mouth ity o f tablet 00:00: daily. [place] [facility] pantoprazol 2018-02 Yes 40mg Take 40 mg Univers e 40 mg EC 2-17 by mouth ity o f tablet 00:00: daily. [place] [facility] pantoprazol 2018-02 Yes 40mg Take 40 mg Univers e 40 mg EC 2-17 by mouth ity o f tablet 00:00: daily. [place] [facility] pantoprazol 2018-02 Yes 40mg Take 40 mg Univers e 40 mg EC 2-17 by mouth ity o f tablet 00:00: daily. [place] [facility] pantoprazol 2018-02 Yes 40mg Take 40 mg Univers e 40 mg EC 2-17 by mouth ity o f tablet 00:00: daily. [address] pantoprazol 2018-02 Yes 40mg Take 40 mg Univers e 40 mg EC 2-17 by mouth ity o f tablet 00:00: daily. [place] [facility] pantoprazol 2018-02 Yes 40mg Take 40 mg Univers e 40 mg EC 2-17 by mouth ity o f tablet 00:00: daily. [place] [facility] pantoprazol 2018-02 Yes 40mg Take 40 mg Univers e 40 mg EC 2-17 by mouth ity o f tablet 00:00: daily. [place] [facility] pantoprazol 2018-02 Yes 40mg Take 40 mg Univers e 40 mg EC 2-17 by mouth ity o f tablet 00:00: daily. [address] pantoprazol 2018-02 Yes 40mg Take 40 mg Univers e 40 mg EC 2-17 by mouth ity o f tablet 00:00: daily. [place] [facility] pantoprazol 2018-02 Yes 40mg Take 40 mg Univers e 40 mg EC 2-17 by mouth ity o f tablet 00:00: daily. [place] [facility] pantoprazol 2018-02 Yes 40mg Take 40 mg Univers e 40 mg EC 2-17 by mouth ity o f tablet 00:00: daily. [address] pantoprazol 2018-02 Yes 40mg Take 40 mg Univers e 40 mg EC 2-17 by mouth ity o f tablet 00:00: daily. [address] pantoprazol 2018-02 Yes 40mg Take 40 mg Univers e 40 mg EC 2-17 by mouth ity o f tablet 00:00: daily. [place] [facility] pantoprazol 2018-02 Yes 40mg Take 40 mg Univers e 40 mg EC 2-17 by mouth ity o f tablet 00:00: daily. [place] [facility] pantoprazol 2018-02 Yes 40mg Take 40 mg Univers e 40 mg EC 2-17 by mouth ity o f tablet 00:00: daily. [place] [facility] pantoprazol 2018-02 Yes 40mg Take 40 mg Univers e 40 mg EC 2-17 by mouth ity o f tablet 00:00: daily. [place] [facility] pantoprazol 2018-02 Yes 40mg Take 40 mg Univers e 40 mg EC 2-17 by mouth ity o f tablet 00:00: daily. [place] [facility] pantoprazol 2018-02 Yes 40mg Take 40 mg Univers e 40 mg EC 2-17 by mouth ity o f tablet 00:00: daily. [place] [facility] pantoprazol 2018-02 Yes 40mg Take 40 mg Univers e 40 mg EC 2-17 by mouth ity o f tablet 00:00: daily. [place] [facility] pantoprazol 2018-02 Yes 40mg Take 40 mg Univers e 40 mg EC 2-17 by mouth ity o f tablet 00:00: daily. [place] [facility] busPIRone 5 2018-02 Yes [id number] TAKE 1 Univers mg tablet 0- 9102 TABLET BY ity o f 00:00: MOUTH TWICE A Medical DAY Branch busPIRone 5 2018-02 Yes [id number] TAKE 1 Univers mg tablet 0- 9102 TABLET BY ity o f 00:00: MOUTH TWICE A Medical DAY Branch busPIRone 5 2018-02 Yes [id number] TAKE 1 Univers mg tablet 0- 9102 TABLET BY ity o f 00:00: MOUTH TWICE A Medical DAY Branch busPIRone 5 2018-02 Yes [id number] TAKE 1 [facility] mg tablet 0-01 9102 TABLET BY ity o f 00:00: MOUTH TWICE A Medical DAY Branch busPIRone 5 2018-02 Yes [id number] TAKE 1 [facility] mg tablet 0-01 9102 TABLET BY ity o f 00:00: MOUTH TWICE A Medical DAY Branch busPIRone 5 2018-02 Yes [id number] TAKE 1 Univers mg tablet 0- 9102 TABLET BY ity o f 00:00: MOUTH 00 TWICE A Medical DAY Branch busPIRone 5 2018-02 Yes [id number] TAKE 1 Univers mg tablet 0-02 TABLET BY ity o f 00:00: MOUTH [place] 00 TWICE A Medical DAY Branch busPIRone 5 2018-02 Yes [id number] TAKE 1 [facility] mg tablet 0-02 TABLET BY ity o f 00:00: MOUTH 00 TWICE A Medical DAY Branch busPIRone 5 2018-02 Yes [id number] TAKE 1 Univers mg tablet 002 TABLET BY ity o f 00:00: MOUTH 00 TWICE A Medical DAY Branch busPIRone 5 2018-02 Yes [id number] TAKE 1 Univers mg tablet 002 TABLET BY ity o f 00:00: MOUTH 00 TWICE A Medical DAY Branch busPIRone 5 2018-02 Yes [id number] TAKE 1 Univers mg tablet 09101 TABLET BY ity o f 00:00: MOUTH 00 TWICE A Medical DAY Branch busPIRone 5 2018-02 Yes [id number] TAKE 1 [facility] mg tablet 09101 TABLET BY ity o f 00:00: MOUTH 00 TWICE A Medical DAY Branch busPIRone 5 2018-02 Yes [id number] TAKE 1 Univers mg tablet 002 TABLET BY ity o f 00:00: MOUTH 00 TWICE A Medical DAY Branch busPIRone 5 2018-02 2020- No [id number] TAKE 1 Univers mg tablet 004-1902 TABLET BY ity of 00:00: 00:00 MOUTH [place] 00 :00 TWICE A Medical DAY Branch BUSPIRONE 5 Yes [id number] TAKE 1 Univers mg tablet 09-0802 TABLET BY ity o f 00:00: MOUTH 00 TWICE A Medical DAY Branch butorphanol Yes [id number] 1{spray Use 1 [facility] 10 mg/mL 08-21 } [place] in ity of nasal spray 00:00: each [...] unit/mL 56 skin. Medical injection Branch insulin 2018-0 Yes inject Univers lispro, 5-14 under the ity of human, 100 18:55: skin. [place] unit/mL 56 Medical injection Branch insulin 2019-0 Yes 60U inject 60 Unive rs detemir 5-14 Units ity of U-100 100 18:55: under the [place] as unit/mL 56 skin. Medical injection Branch insulin 0 Yes inject Univers lispro, 5-14 under the ity of human, 100 18:55: skin. [place] unit/mL 56 Medical injection Branch insulin Yes 60U inject 60 Unive rs detemir 5-14 Units ity of U-100 100 18:55: under the [place] as unit/mL 56 skin. Medical injection Branch insulin Yes inject [facility] lispro, 5-14 under the ity of human, 100 18:55: skin. [place] unit/mL 56 Medical injection Branch insulin Yes 60U inject 60 Unive rs detemir 5-14 Units ity of U-100 100 18:55: under the [place] as unit/mL 56 skin. Medical injection Branch insulin Yes inject [facility] lispro, 5-14 under the ity of human, 100 18:55: skin. [place] unit/mL 56 Medical injection Branch insulin Yes 60U inject 60 Unive rs detemir 5-14 Units ity of U-100 100 18:55: under the [place] as unit/mL 56 skin. Medical injection Branch insulin Yes inject [facility] lispro, 5-14 under the ity of human, 100 18:55: skin. [place] unit/mL 56 Medical injection Branch pregabalin Yes 300mg Take 300 Un osbaldo 300 mg 5-14 mg by ity of capsule 17:05: mouth. [address] hydrALAZINE Yes 50mg Take 50 mg Univers 50 mg 5-14 by mouth. ity of tablet 17:05: [address] losartan-hy Yes Take by Uni vers drochloroth 5-14 mouth. ity of iazide 17:05: [place] 100-25 mg 39 Medical per tablet Branch carvedilol Yes 25mg Take 25 mg U nivers 12.5 mg 5-14 by mouth. ity of tablet 17:05: [address] acetaminoph Yes 500mg Take 500 U nivers [...] mg by ity of capsule 17:05: mouth. [address] Branch hydrALAZINE 2018-0 Yes 50mg Take 50 mg Univers 50 mg 5-14 by mouth. ity of tablet 17:05: [address] Branch losartan-hy 2018-0 Yes Take by Uni vers drochloroth 5-14 mouth. ity of iazide 17:05: [place] 100-25 mg 39 Medical per tablet Branch carvedilol 0 Yes 25mg Take 25 mg U nivers 12.5 mg 5-14 by mouth. ity of tablet 17:05: [address] Branch acetaminoph 0 Yes 500mg Take [...] mg by ity of capsule 17:05: mouth. [address] Branch hydrALAZINE 2018-0 Yes 50mg Take 50 mg Univers 50 mg 5-14 by mouth. ity of tablet 17:05: [address] Branch losartan-hy 2018-0 Yes Take by Uni vers drochloroth 5-14 mouth. ity of iazide 17:05: [place] 100-25 mg 39 Medical per tablet Branch carvedilol 0 Yes 25mg Take 25 mg U nivers 12.5 mg 5-14 by mouth. ity of tablet 17:05: [address] Branch acetaminoph 0 Yes 500mg Take [...] mg by ity of capsule 17:05: mouth. [address] Branch pregabalin 0 Yes 300mg Take 300 Un osbaldo 300 mg 5-14 mg by ity of capsule 17:05: mouth. [address] Branch hydrALAZINE 0 Yes 50mg Take 50 mg Univers 50 mg 5-14 by mouth. ity of tablet 17:05: [address] Branch losartan-hy 2018-0 Yes Take by Uni vers drochloroth 5-14 mouth. ity of iazide 17:05: [place] 100-25 mg 39 Medical per tablet Branch hydrALAZINE 0 Yes 50mg Take 50 mg Univers 50 mg 5-14 by mouth. ity of tablet 17:05: [address] Branch carvedilol 0 Yes 25mg Take 25 mg U nivers 12.5 mg 5-14 by mouth. ity of tablet 17:05: [address] Branch acetaminoph 0 Yes 500mg Take [...] minutes as needed for Chest pain. losartan-hy 2018-0 Yes Take by Un osbaldo drochloroth 5-14 mouth. ity of iazide 17:05: [place] 100-25 mg 39 Medical per tablet Branch pregabalin 2018-0 Yes 300mg Take 300 Un osbaldo 300 mg 5-14 mg by ity of capsule 17:05: mouth. [address] Branch hydrALAZINE 2018-0 Yes 50mg Take 50 mg Univers 50 mg 5-14 by mouth. ity of tablet 17:05: [address] Branch losartan-hy 2018-0 Yes Take by Uni vers drochloroth 5-14 mouth. ity of iazide 17:05: [place] 100-25 mg 39 Medical per tablet Branch carvedilol 2019-0 Yes 25mg Take 25 mg U nivers 12.5 mg 5-14 by mouth. ity of tablet 17:05: [address] Branch acetaminoph 2018-0 Yes 500mg Take [...] mg by ity of capsule 17:05: mouth. [address] Branch hydrALAZINE 2018-0 Yes 50mg Take 50 mg Univers 50 mg 5-14 by mouth. ity of tablet 17:05: [address] Branch losartan-hy 2018-0 Yes Take by Uni vers drochloroth 5-14 mouth. ity of iazide 17:05: [place] 100-25 mg 39 Medical per tablet Branch carvedilol 2019-0 Yes 25mg Take 25 mg U nivers 12.5 mg 5-14 by mouth. ity of tablet 17:05: [address] Branch acetaminoph 0 Yes 500mg Take [...] 5-14 by mouth. ity of tablet 17:05: [address] Branch pregabalin 2019-0 Yes 300mg Take 300 Un osbaldo 300 mg 5-14 mg by ity of capsule 17:05: mouth. [address] Branch hydrALAZINE 2019-0 Yes 50mg Take 50 mg Univers 50 mg 5-14 by mouth. ity of tablet 17:05: [address] Branch losartan-hy 2019-0 Yes Take by [...] mg by ity of capsule 17:05: mouth. [address] Branch hydrALAZINE 2018-0 Yes 50mg Take 50 mg Univers 50 mg 5-14 by mouth. ity of tablet 17:05: [address] losartan-hy 2018-0 Yes Take by Uni [...] mg by ity of capsule 17:05: mouth. [address] Branch hydrALAZINE Yes 50mg Take 50 mg Univers 50 mg 5-14 by mouth. ity of tablet 17:05: [address] losartan-hy 0 Yes Take by Uni vers drochloroth 5-14 mouth. ity of iazide 17:05: [place] 100-25 mg 39 Medical per tablet Branch carvedilol 0 Yes 25mg Take 25 mg U nivers 12.5 mg 5-14 by mouth. ity of tablet 17:05: [address] Branch acetaminoph Yes 500mg Take 500 [...] mg by ity of capsule 17:05: mouth. [address] hydrALAZINE Yes 50mg Take 50 mg Univers 50 mg 5-14 by mouth. ity of tablet 17:05: [address] Branch losartan-hy Yes Take by Uni vers drochloroth 5-14 mouth. ity of iazide 17:05: [place] 100-25 mg 39 Medical per tablet Branch carvedilol 0 Yes 25mg Take 25 mg U nivers 12.5 mg 5-14 by mouth. ity of tablet 17:05: [address] Branch acetaminoph 0 Yes 500mg Take [...] mg by ity of capsule 17:05: mouth. [address] Branch hydrALAZINE 2019-0 Yes 50mg Take 50 mg Univers 50 mg 5-14 by mouth. ity of tablet 17:05: [address] Branch losartan-hy 0 Yes Take by Uni vers drochloroth 5-14 mouth. ity of iazide 17:05: [place] 100-25 mg 39 Medical per tablet Branch carvedilol 2018-0 Yes 25mg Take 25 mg U nivers 12.5 mg 5-14 by mouth. ity of tablet 17:05: [address] Branch acetaminoph 0 Yes 500mg Take [...] mg by ity of capsule 17:05: mouth. [address] hydrALAZINE 2019-0 Yes 50mg Take 50 mg Univers 50 mg 5-14 by mouth. ity of tablet 17:05: [address] losartan-hy 0 Yes Take by Uni [...] for Chest pain. busPIRone 5 2019- No [id number] 5mg Take 1 Univers mg tablet 5-14 09-08 9102 tablet by ity of 00:00: 00:00 mouth 2 [place] 00 :00 (two) Medical times Branch daily. methIMAzole Yes 10mg Take 10 mg Univers 10 mg 4-24 by mouth ity of tablet 00:00: daily. [address] methIMAzole Yes 10mg Take 10 mg Univers 10 mg 4-24 by mouth ity of tablet 00:00: daily. [address] methIMAzole Yes 10mg Take 10 mg Univers 10 mg 4-24 by mouth ity of tablet 00:00: daily. [address] methIMAzole Yes 10mg Take 10 mg Univers 10 mg 4-24 by mouth ity of tablet 00:00: daily. [address] methIMAzole Yes 10mg Take 10 mg Univers 10 mg 4-24 by mouth ity of tablet 00:00: daily. [address] methIMAzole Yes 10mg Take 10 mg Univers 10 mg 4-24 by mouth ity of tablet 00:00: daily. [address] methIMAzole 2019-0 Yes 10mg Take 10 mg Univers 10 mg 4-24 by mouth ity of tablet 00:00: daily. [facility] methIMAzole 2019-0 Yes 10mg Take 10 mg Univers 10 mg 4-24 by mouth ity of tablet 00:00: daily. [place] [facility] methIMAzole 2019-0 Yes 10mg Take 10 mg Univers 10 mg 4-24 by mouth ity of tablet 00:00: daily. [facility] methIMAzole 2019-0 Yes 10mg Take 10 mg Univers 10 mg 4-24 by mouth ity of tablet 00:00: daily. [place] [facility] methIMAzole 2019-0 Yes 10mg Take 10 mg Univers 10 mg 4-24 by mouth ity of tablet 00:00: daily. [place] [facility] methIMAzole 2019-0 Yes 10mg Take 10 mg Univers 10 mg 4-24 by mouth ity of tablet 00:00: daily. [place] [facility] methIMAzole 2019-0 Yes 10mg Take 10 mg Univers 10 mg 4-24 by mouth ity of tablet 00:00: daily. [place] [facility] methIMAzole 2019-0 Yes 10mg Take 10 mg Univers 10 mg 4-24 by mouth ity of tablet 00:00: daily. [place] [facility] methIMAzole 2019-0 Yes 10mg Take 10 mg Univers 10 mg 4-24 by mouth ity of tablet 00:00: daily. [place] [facility] methIMAzole 2019-0 Yes 10mg Take 10 mg Univers 10 mg 4-24 by mouth ity of tablet 00:00: daily. [place] [facility] methIMAzole 2019-0 Yes 10mg Take 10 mg Univers 10 mg 4-24 by mouth ity of tablet 00:00: daily. [place] [facility] methIMAzole 2019-0 Yes 10mg Take 10 mg Univers 10 mg 4-24 by mouth ity of tablet 00:00: daily. [place] [facility] methIMAzole 2019-0 Yes 10mg Take 10 mg Univers 10 mg 4-24 by mouth ity of tablet 00:00: daily. [place] [facility] methIMAzole 2019-0 Yes 10mg Take 10 mg Univers 10 mg 4-24 by mouth ity of tablet 00:00: daily. [place] [facility] methIMAzole 2019-0 Yes 10mg Take 10 mg Univers 10 mg 4-24 by mouth ity of tablet 00:00: daily. [facility] methIMAzole 2019-0 Yes 10mg Take 10 mg Univers 10 mg 4-24 by mouth ity of tablet 00:00: daily. [place] [facility] methIMAzole 2019-0 Yes 10mg Take 10 mg Univers 10 mg 4-24 by mouth ity of tablet 00:00: daily. [place] [facility] methIMAzole 2018-0 Yes 10mg Take 10 mg Univers 10 mg 4-24 by mouth ity of tablet 00:00: daily. [place] [facility] methIMAzole 2018-0 Yes 10mg Take 10 mg Univers 10 mg 4-24 by mouth ity of tablet 00:00: daily. [place] [facility] methIMAzole 2018-0 Yes 10mg Take 10 mg Univers 10 mg 4-24 by mouth ity of tablet 00:00: daily. [place] [facility] methIMAzole 2018-0 Yes 10mg Take 10 mg Univers 10 mg 4-24 by mouth ity of tablet 00:00: daily. [place] [facility] methIMAzole 2018-0 Yes 10mg Take 10 mg Univers 10 mg 4-24 by mouth ity of tablet 00:00: daily. [place] [facility] methIMAzole 2018-0 Yes 10mg Take 10 mg Univers 10 mg 4-24 by mouth ity of tablet 00:00: daily. [place] [facility] methIMAzole 2018-0 Yes 10mg Take 10 mg Univers 10 mg 4-24 by mouth ity of tablet 00:00: daily. [place] [facility] methIMAzole 2018-0 Yes 10mg Take 10 mg Univers 10 mg 4-24 by mouth ity of tablet 00:00: daily. [place] [facility] methIMAzole 2019-0 Yes 10mg Take 10 mg Univers 10 mg 4-24 by mouth ity of tablet 00:00: daily. [place] [facility] methIMAzole 2019-0 Yes 10mg Take 10 mg Univers 10 mg 4-24 by mouth ity of tablet 00:00: daily. [place] [facility] methIMAzole 2018-0 Yes 10mg Take 10 mg Univers 10 mg 4-24 by mouth ity of tablet 00:00: daily. [place] [facility] methIMAzole 2018-0 Yes 10mg Take 10 mg Univers 10 mg 4-24 by mouth ity of tablet 00:00: daily. [facility] methIMAzole 2019-0 Yes 10mg Take 10 mg Univers 10 mg 4-24 by mouth ity of tablet 00:00: daily. [place] [facility] methIMAzole 2019-0 Yes 10mg Take 10 mg Univers 10 mg 4-24 by mouth ity of tablet 00:00: daily. [place] [facility] methIMAzole 2018-0 Yes 10mg Take 10 mg Univers 10 mg 4-24 by mouth ity of tablet 00:00: daily. [place] [facility] methIMAzole 2018-0 Yes 10mg Take 10 mg Univers 10 mg 4-24 by mouth ity of tablet 00:00: daily. [place] [facility] methIMAzole 2019-0 Yes 10mg Take 10 mg Univers 10 mg 4-24 by mouth ity of tablet 00:00: daily. [place] [facility] methIMAzole 2018-0 Yes 10mg Take 10 mg Univers 10 mg 4-24 by mouth ity of tablet 00:00: daily. [place] [facility] methIMAzole 2018-0 Yes 10mg Take 10 mg Univers 10 mg 4-24 by mouth ity of tablet 00:00: daily. [place] [facility] methIMAzole 2019-0 Yes 10mg Take 10 mg Univers 10 mg 4-24 by mouth ity of tablet 00:00: daily. [place] [facility] methIMAzole 2019-0 Yes 10mg Take 10 mg Univers 10 mg 4-24 by mouth ity of tablet 00:00: daily. [place] [facility] methIMAzole 2018-0 Yes 10mg Take 10 mg Univers 10 mg 4-24 by mouth ity of tablet 00:00: daily. [place] [facility] methIMAzole 2019-0 Yes 10mg Take 10 mg Univers 10 mg 4-24 by mouth ity of tablet 00:00: daily. [place] [facility] methIMAzole 2019-0 Yes 10mg Take 10 mg Univers 10 mg 4-24 by mouth ity of tablet 00:00: daily. [place] [facility] methIMAzole 2019-0 Yes 10mg Take 10 mg Univers 10 mg 4-24 by mouth ity of tablet 00:00: daily. [place] [facility] methIMAzole 2018-0 Yes 10mg Take 10 mg Univers 10 mg 4-24 by mouth ity of tablet 00:00: daily. [facility] methIMAzole 2019-0 Yes 10mg Take 10 mg Univers 10 mg 4-24 by mouth ity of tablet 00:00: daily. [facility] methIMAzole 2019-0 Yes 10mg Take 10 mg Univers 10 mg 4-24 by mouth ity of tablet 00:00: daily. [facility] methIMAzole 2019-0 Yes 10mg Take 10 mg Univers 10 mg 4-24 by mouth ity of tablet 00:00: daily. [facility] methIMAzole 2019-0 Yes 10mg Take 10 mg Univers 10 mg 4-24 by mouth ity of tablet 00:00: daily. [place] [facility] methIMAzole 2019-0 Yes 10mg Take 10 mg Univers 10 mg 4-24 by mouth ity of tablet 00:00: daily. [place] [facility] methIMAzole 2018-0 Yes 10mg Take 10 mg Univers 10 mg 4-24 by mouth ity of tablet 00:00: daily. [place] [facility] methIMAzole 2019-0 Yes 10mg Take 10 mg Univers 10 mg 4-24 by mouth ity of tablet 00:00: daily. [place] [facility] methIMAzole 2019-0 Yes 10mg Take 10 mg Univers 10 mg 4-24 by mouth ity of tablet 00:00: daily. [place] [facility] methIMAzole 2019-0 Yes 10mg Take 10 mg Univers 10 mg 4-24 by mouth ity of tablet 00:00: daily. [place] [facility] methIMAzole 2019-0 Yes 10mg Take 10 mg Univers 10 mg 4-24 by mouth ity of tablet 00:00: daily. [place] [facility] methIMAzole 2019-0 Yes 10mg Take 10 mg Univers 10 mg 4-24 by mouth ity of tablet 00:00: daily. [place] [facility] methIMAzole 2019-0 Yes 10mg Take 10 mg Univers 10 mg 4-24 by mouth ity of tablet 00:00: daily. [place] [facility] methIMAzole 2019-0 Yes 10mg Take 10 mg Univers 10 mg 4-24 by mouth ity of tablet 00:00: daily. [place] [facility] methIMAzole 2019-0 Yes 10mg Take 10 [...] [place] EVERY DAY [facility] doxazosin 2 2019-0 Yes TAKE 0.5 Un osbaldo mg tablet 4-22 TABLET BY ity o f 00:00: 2 TIMES [place] EVERY DAY [facility] doxazosin 2 2019-0 Yes TAKE 0.5 Un osbaldo mg tablet 4-22 TABLET BY ity o f 00:00: 2 TIMES [place] EVERY DAY [facility] doxazosin 2 2019-0 2020- No TAKE 0.5 U nivers mg tablet 4-22 03-06 TABLET BY ity of 00:00: 00:00 2 TIMES [place] 00 :00 EVERY DAY Medical Branch hydrALAZINE [...] 4-16 TABLET BY ity of tablet 00:00: [facility] THREE Medical TIMES A Branch DAY WITH FOOD hydrALAZINE 2019-0 Yes TAKE 1 Univ ers 100 mg 4-16 TABLET BY ity of tablet 00:00: [facility] THREE Medical TIMES A Branch DAY WITH FOOD hydrALAZINE 2019-0 Yes TAKE 1 Univ ers 100 mg 4-16 TABLET BY ity of tablet 00:00: MOUTH THREE Medical TIMES A Branch DAY WITH FOOD hydrALAZINE 2019-0 Yes TAKE 1 Univ ers 100 mg 4-16 TABLET BY ity of tablet 00:00: [facility] THREE Medical TIMES A Branch DAY WITH FOOD hydrALAZINE 2019-0 Yes TAKE 1 Univ ers 100 mg 4-16 TABLET BY ity of tablet 00:00: [facility] THREE Medical TIMES A Branch DAY WITH FOOD hydrALAZINE 2019-0 Yes TAKE 1 Univ ers 100 mg 4-16 TABLET BY ity of tablet 00:00: [facility] THREE Medical TIMES A Branch DAY WITH FOOD hydrALAZINE 2019-0 Yes TAKE 1 Univ ers 100 mg 4-16 TABLET BY ity of tablet 00:00: [facility] THREE Medical TIMES A Branch DAY WITH FOOD hydrALAZINE 2019-0 2020- No TAKE 1 Uni vers 100 mg 4-16 03-06 TABLET BY ity of tablet 00:00: 00:00 [facility] [place] 00 :00 THREE Medical TIMES A [...] mouth ity of tablet 00:00: daily. [facility] spironolact 2018-0 Yes 25mg Take 25 mg Univers one 25 mg 3-22 by mouth ity of tablet 00:00: daily. [facility] spironolact 0 Yes 25mg Take 25 mg Univers one 25 mg 3-22 by mouth ity of tablet 00:00: daily. [facility] spironolact 2018-0 Yes 25mg Take 25 mg Univers one 25 mg 3-22 by mouth ity of tablet 00:00: daily. [facility] spironolact 0 Yes 25mg Take 25 mg Univers one 25 mg 3-22 by mouth ity of tablet 00:00: daily. [place] [facility] spironolact Yes 25mg Take 25 mg Univers one 25 mg 3-22 by mouth ity of tablet 00:00: daily. [facility] spironolact Yes 25mg Take 25 mg Univers one 25 mg 3-22 by mouth ity of tablet 00:00: daily. [facility] spironolact Yes 25mg Take 25 mg Univers one 25 mg 3-22 by mouth ity of tablet 00:00: daily. [place] [facility] spironolact 0 Yes 25mg Take 25 mg Univers one 25 mg 3-22 by mouth ity of tablet 00:00: daily. [place] [facility] spironolact Yes 25mg Take 25 mg Univers one 25 mg 3-22 by mouth ity of tablet 00:00: daily. [place] [facility] spironolact 0 2020- No 25mg Take 25 mg Univers one 25 mg 3-22 03-06 by mouth ity o f tablet 00:00: 00:00 daily. [place] 00 : [facility] insulin Yes 60U Q.5D Inject 60 Metho [...] tablet 37 nightly. l insulin 2018-0 Yes Q.[id number] Inject Me thodi lispro 4- [id number] under the st (HumaLOG) 14:23: 3D skin [...] needed (for Headache). clonIDINE 2018-0 Yes .2mg Q.[id number] Take 0.2 [facility] HCl 4-[id number] (CATAPRES) 14:23: 3D mouth 3 [facility] 0.2 MG 37 (three) l tablet times a day. hydrALAZINE 2018-0 Yes 50mg Q.[id number] Take 50 mg [facility] (APRESOLINE - [id number] by mouth 3 st ) 50 MG [...] tablet 37 nightly. l insulin 2018-0 Yes Q.[id number] Inject Me [facility]odi lispro 4-[id number] (HumaLOG) 14:23: 3D skin [...] needed (for Headache). clonIDINE 2018-0 Yes .2mg Q.[id number] Take 0.2 [facility] HCl 4- [id number] mg by [facility] (CATAPRES) 14:23: 3D mouth 3 [facility] 0.2 MG 37 (three) l tablet times a day. hydrALAZINE 2018-0 Yes 50mg Q.[id number] Take 50 mg [facility] (APRESOLINE 4- [id number] by mouth 3 st ) 50 MG [...] tablet 37 nightly. l insulin 2018-0 Yes Q.[id number] Inject Me [facility]odi lispro 4- [id number] under the st (HumaLOG) 14:23: 3D skin [...] needed (for Headache). clonIDINE 2018-0 Yes .2mg Q.[id number] Take 0.2 [facility] HCl 4-[id number] (CATAPRES) 14:23: 3D mouth 3 [facility] 0.2 MG 37 (three) l tablet times a day. hydrALAZINE 0 Yes 50mg Q.[id number] Take 50 mg [facility] (APRESOLINE 4-01 [id number] by mouth 3 st ) 50 MG [...] tablet 37 nightly. l insulin 2017-0 Yes Q.[id number] Inject Me [facility]odi lispro 4- [id number] under the st (HumaLOG) 14:23: 3D skin [...] needed (for Headache). clonIDINE 2017- Yes .2mg Q.[id number] Take 0.2 [facility] HCl - [id number] mg by st (CATAPRES) 14:23: 3D mouth 3 [facility] 0.2 MG 37 (three) l tablet times a day. hydrALAZINE 0 Yes 50mg Q.[id number] Take 50 mg [facility] (APRESOLINE 4-01 [id number] by mouth 3 st ) 50 MG [...] tablet 37 nightly. l insulin 2018-0 Yes Q.[id number] Inject Me [facility]odi lispro 4- [id number] under the st (HumaLOG) 14:23: 3D skin [...] needed (for Headache). clonIDINE 2018-0 Yes .2mg Q.[id number] Take 0.2 [facility] HCl 4-[id number] (CATAPRES) 14:23: 3D mouth 3 [facility] 0.2 MG 37 (three) l tablet times a day. hydrALAZINE 2018-0 Yes 50mg Q.[id number] Take 50 mg [facility] (APRESOLINE 4-01 [id number] by mouth 3 st ) 50 MG [...] tablet 37 nightly. l insulin 2018-0 Yes Q.[id number] Inject Me thodi lispro 4- [id number] under the st (HumaLOG) 14:23: 3D skin [...] needed (for Headache). clonIDINE 2018-0 Yes .2mg Q.[id number] Take 0.2 [facility] HCl 4- [id number] mg by st (CATAPRES) 14:23: 3D mouth 3 [facility] 0.2 MG 37 (three) l tablet times a day. hydrALAZINE 2018-0 Yes 50mg Q.[id number] Take 50 mg [facility] (APRESOLINE 4- [id number] by mouth 3 st ) 50 MG [...] tablet 37 nightly. l insulin 2018-0 Yes Q.[id number] Inject Me [facility]odi lispro 4- [id number] under the st (HumaLOG) 14:23: 3D skin [...] needed (for Headache). clonIDINE 2018-0 Yes .2mg Q.[id number] Take 0.2 [facility] HCl 4-[id number] (CATAPRES) 14:23: 3D mouth 3 [facility] 0.2 MG 37 (three) l tablet times a day. hydrALAZINE 2017-0 Yes 50mg Q.[id number] Take 50 mg [facility] (APRESOLINE 4-01 [id number] by mouth 3 st ) 50 MG [...] tablet 37 nightly. l insulin 2018-0 Yes Q.[id number] Inject Me thodi lispro 4-[id number] (HumaLOG) 14:23: 3D skin [...] needed (for Headache). clonIDINE 2018-0 Yes .2mg Q.[id number] Take 0.2 [facility] HCl 4-[id number] (CATAPRES) 14:23: 3D mouth 3 [facility] 0.2 MG 37 (three) l tablet times a day. hydrALAZINE 2018-0 Yes 50mg Q.[id number] Take 50 mg [facility] (APRESOLINE 4-01 [id number] mouth [address] ) 50 MG 14:23: 3D (three) [facility]osp[facility] tablet 37 times a l day. Immunizations Ordered Filled Immunization Date Status Comments [facility] e Immunization Name Name SARS-COV-2 COVID-19 2020-05-12 Completed Unive rsity of MODERNA VACCINE 00:00:00 [place] [facility] SARS-COV-2 COVID-19 2020-05-12 Completed Unive rsity of MODERNA VACCINE 00:00:00 [place] [facility] SARS-COV-2 COVID-19 2020-05-12 Completed Unive rsity of MODERNA VACCINE 00:00:00 [place] [facility] SARS-COV-2 COVID-19 2020-04-14 Completed Unive rsity of MODERNA VACCINE 00:00:00 [place] [facility] ical Branch SARS-COV-2 COVID-19 2020-04-14 Completed Unive rsity of MODERNA VACCINE 00:00:00 [place] [facility] SARS-COV-2 COVID-19 2020-04-14 Completed Unive rsity of MODERNA VACCINE 00:00:00 [place] [facility] ical Branch SARS-COV-2 COVID-19 2020-04-14 Completed Unive rsity of MODERNA VACCINE 00:00:00 [place] [facility] ical Branch SARS-COV-2 COVID-19 2020-04-14 Completed Unive rsity of MODERNA VACCINE 00:00:00 [place] [facility] ical Branch SARS-COV-2 COVID-19 2020-04-14 Completed Unive rsity of MODERNA VACCINE 00:00:00 [place] [facility] ical Branch SARS-COV-2 COVID-19 2020-04-14 Completed Unive rsity of MODERNA VACCINE 00:00:00 [place] [facility] ical Branch SARS-COV-2 COVID-19 2020-04-14 Completed Unive rsity of MODERNA VACCINE 00:00:00 [facility] ical Branch SARS-COV-2 COVID-19 2020-04-14 Completed Unive rsity of MODERNA VACCINE 00:00:00 [facility] ical Branch SARS-COV-2 COVID-19 2020-04-14 Completed Unive rsity of MODERNA VACCINE 00:00:00 [facility] ical Branch SARS-COV-2 COVID-19 2020-04-14 Completed Unive rsity of MODERNA VACCINE 00:00:00 [facility] ical Branch SARS-COV-2 COVID-19 2020-04-14 Completed Unive rsity of MODERNA VACCINE 00:00:00 [facility] ical Branch SARS-COV-2 COVID-19 2020-04-14 Completed Unive rsity of MODERNA VACCINE 00:00:00 [facility] SARS-COV-2 COVID-19 2020-04-14 Completed Unive rsity of MODERNA VACCINE 00:00:00 [facility] SARS-COV-2 COVID-19 2020-04-14 Completed Unive rsity of MODERNA VACCINE 00:00:00 [facility] SARS-COV-2 COVID-19 2020-04-14 Completed Unive rsity of MODERNA VACCINE 00:00:00 [facility] SARS-COV-2 COVID-19 2020-04-14 Completed Unive rsity of MODERNA VACCINE 00:00:00 [facility] Vital Signs Vital Name Observation Time Observation Value Comments Source HEIGHT 2022-02-19 23:00:00 165.1 cm WEIGHT 2022-02-19 23:00:00 99.8 kg HEIGHT 2022-02-19 23:00:00 165.1 cm WEIGHT 2022-02-19 23:00:00 99.8 kg HEIGHT 2022-02-19 23:00:00 165.1 cm WEIGHT 2022-02-19 23:00:00 99.8 kg Body height 2019-04-20 15:34:00 165.1 cm [facility] Body weight 2019-04-20 15:34:00 104.327 kg Universi ty [facility] BMI 2019-04-20 15:34:00 38.27 kg/m2 Universi ty [facility] Systolic blood 2019-03-23 16:31:00 173 mm[Hg] Univer sity of pressure [facility] Diastolic blood 2019-03-23 16:31:00 90 mm[Hg] Unive rsity of pressure [facility] Heart rate 2019-03-23 16:31:00 64 /min Universi ty [facility] Body temperature 2019-03-23 16:31:00 36.72 [place] [facility] Respiratory rate 2019-03-23 16:31:00 18 /min Univ ersity of [facility] Body height 2019-03-23 16:31:00 165.1 cm [facility]i [facility] Body weight 2019-03-23 16:31:00 97.24 kg [facility]i ty [facility] BMI 2019-03-23 16:31:00 35.67 kg/m2 [facility] [place] [facility] Systolic blood 2022-02-22 12:00:00 158 mm[Hg] [facility] Diastolic blood 2022-02-22 12:00:00 82 mm[Hg] [facility] Heart rate 2022-02-22 12:00:00 75 /min [facility] Body temperature 2022-02-22 12:00:00 36.44 [facility] Respiratory rate 2022-02-22 12:00:00 21 /min [facility] Oxygen saturation in 2022-02-22 12:00:00 98 /min [facility] Arterial blood by Medical Ce nter Pulse oximetry Body height 2022-02-19 23:00:00 165.1 cm [facility] Body weight 2022-02-19 23:00:00 99.8 kg [facility] BMI 2022-02-19 23:00:00 36.61 kg/m2 [facility] Procedures Procedure Date / Time Performing Clinician Source Performed POCT-GLUCOSE METER 2022-02-22 11:27:00 Yudy Galdamez [facility] POCT-GLUCOSE METER 2022-02-22 05:45:[facility] 2022-02-22 04:19:00 [facility]T COUNT & AUTO 2022-02-22 04:19:00 Yudy Galdamez [facility] DIFFERENTIAL [facility] W/PLT COUNT & AUTO 2022-02-22 04:19:00 Yudy Galdamez [facility] DIFFERENTIAL [facility] POCT-GLUCOSE METER 2022-02-21 20:05:00 [facility] 2022-02-21 17:00[facility]00 [facility]PL[facility] LEGS 2022-02-21 14:23:00 Gulshan [facility] POCT-GLUCOSE METER 2022-02-21 11:57:00 [facility] POCT-GLUCOSE METER 2022-02-21 05:32:00 [facility] BASIC METABOLIC PANEL 2022-02-21 05:24:00 Galdamez [facility] CBC W/PLT COUNT & AUTO 2022-02-21 05:24:00 Galdamez [facility] DIFFERENTIAL [facility] W/PLT COUNT & AUTO 2022-02-21 05:24:00 Galdamez [facility] POCT-GLUCOSE METER 2022-02-21 00:31:00 Galdamez [facility] POCT-GLUCOSE METER 2022-02-20 16:55:00 Gald[facility]z [facility] HEMOGLOBIN AND HEMATOCRIT 2022-02-20 12:20:00 Elayne [facility] POCT-GLUCOSE METER 2022-02-20 11:20[facility]IT 2022-02-20 05:45:00 Elayne [facility] POCT-GLUCOSE METER 2022-02-20 05:30:00 [facility]ikh [facility] ABORH, MANUAL 2022-02-20 02:56:00 Nomi Henriquez [facility] XR CHEST 1 VIEW PORTABLE 2022-02-20 00:48:00 Elayne [facility] / BEDSIDE Center POCT-GLUCOSE METER 2022-02-19 23:33:00 [facility]ikh [facility] CBC W/PLT COUNT & AUTO 2022-02-19 23:28:00 Elayne [facility] DIFFERENTIAL Center BASIC METABOLIC PANEL 2022-02-19 23:28:00 [facility] B-TYPE NATRIURETIC FACTOR 2022-02-19 23:28:00 herminia [facility] I [facility] ([facility] Center D-DIMER 2022-02-19 23:28:00 [facility] TYPE AND SCREEN, 2022-02-19 23:28:00 Elayne [facility] AUTOMATED Center CBC W/PLT COUNT & AUTO 2022-02-19 23:28:00 Elayne [facility] DIFFERENTIAL Center BLOOD GAS, ARTERIAL 2022-02-19 23:13:00 Elayne [facility] [id number] 2021-05-24 00:00:00 [facility] Center MEDICATION CORRESPONDENCE 2020-01-21 06:01:00 Doctor Unassigned, [facility] Plan of Care Planned Activity Planned Date Details Comments Source Future Scheduled 2023-02-[address] [facility] (Season Ended) [code = Medic al Center INFLUENZA VACCINE (Season Ended)] Future Scheduled 2022-10-[address] [facility] Test 00:00:00 (Season Ended) [code = Medic al Center INFLUENZA VACCINE (Season Ended)] Future Scheduled 2022-10-[address] [facility] Test 00:00:00 (Season Ended) [code = Medic al Center INFLUENZA VACCINE (Season Ended)] Future Scheduled 2022-05-20 COVID-19 VACCINE (#1) [facility] Test 22:09:50 [code = COVID-19 VACCINE (#1)] Future Scheduled 2022-05-20 BREAST CANCER [facility] Test 22:09:50 SCREENING [code = BREAST CANCER SCREENING] Future Scheduled 2022-05-[address] [facility] Test 22:09:50 [code = COLONOSCOPY SCREENING] Future Scheduled 2022-05-20 SHINGLES VACCINES (1 Met [facility] Test 22:09:50 of 2) [code = SHINGLES VACCINES (1 of 2)] Future Scheduled 2022-05-20 65+ PNEUMOCOCCAL [facility] Test 22:09:50 VACCINE (1 - PCV) [code = 65+ PNEUMOCOCCAL VACCINE (1 - PCV)] Future Scheduled 2022-05-20 INFLUENZA VACCINE [facility] Test 22:09:50 [code = INFLUENZA VACCINE] Future Scheduled 2022-05-20 COVID-19 VACCINE (#1) [facility] Test 22:09:50 [code = COVID-19 VACCINE (#1)] Future Scheduled 2022-05-20 BREAST CANCER [facility] Test 22:09:50 SCREENING [code = BREAST CANCER SCREENING] Future Scheduled 2022-05-[address] [facility] Test 22:09:50 [code = COLONOSCOPY SCREENING] Future Scheduled 2022-05-20 SHINGLES VACCINES (1 Met [facility] Test 22:09:50 of 2) [code = SHINGLES VACCINES (1 of 2)] Future Scheduled 2022-05-20 65+ PNEUMOCOCCAL [facility] Test 22:09:50 VACCINE (1 - PCV) [code = 65+ PNEUMOCOCCAL VACCINE (1 - PCV)] Future Scheduled 2022-05-20 INFLUENZA VACCINE [facility] Test 22:09:50 [code = INFLUENZA VACCINE] Future Scheduled 2022-05-20 COVID-19 VACCINE (#1) [facility] Test 22:09:50 [code = COVID-19 VACCINE (#1)] Future Scheduled 2022-05-20 BREAST CANCER [facility] Test 22:09:50 SCREENING [code = BREAST CANCER SCREENING] Future Scheduled 2022-05-20 COLONOSCOPY SCREENING [facility] Test 22:09:50 [code = COLONOSCOPY SCREENING] Future Scheduled 2022-05-20 SHINGLES VACCINES (1 Met [facility] Test 22:09:50 of 2) [code = SHINGLES VACCINES (1 of 2)] Future Scheduled 2022-05-20 65+ P[facility]UMOCOCCAL [facility] Test 22:09:50 VACCINE (1 - PCV) [code = 65+ PNEUMOCOCCAL VACCINE (1 - PCV)] Future Scheduled 2022-05-20 INFLUENZA VACCINE [facility] Hospital Test 22:09:50 [code = INFLUENZA VACCINE] Future Scheduled 2022-04-15 BREAST CANCER [facility] Test 08:46:22 SCREENING [code = BREAST CANCER SCREENING] Future Scheduled 2022-04-15 COLONOSCOPY SCREENING [facility] Test 08:46:22 [code = COLONOSCOPY SCREENING] Future Scheduled 2022-04-15 SHINGLES VACCINES (1 Met [facility] Test 08:46:22 of 2) [code = SHINGLES VACCINES (1 of 2)] Future Scheduled 2022-04-15 65+ [facility] 08:46:22 VACCINE (1 - PCV) [code = 65+ PNEUMOCOCCAL VACCINE (1 - PCV)] Future Scheduled 2022-04-15 INFLUENZA VACCINE [facility] Hospital Test 08:46:22 [code = INFLUENZA VACCINE] Future Scheduled 2022-04-15 COVID-19 VACCINE (#1) [facility] Test 08:46:22 [code = COVID-19 VACCINE (#1)] Future Scheduled 2022-03-23 COVID-19 VACCINE (#1) [facility] Test 11:27:44 [code = COVID-19 VACCINE (#1)] Future Scheduled 2022-03-23 BREAST CANCER [facility] Test 11:27:44 SCREENING [code = BREAST CANCER SCREENING] Future Scheduled 2022-03-23 COLONOSCOPY SCREENING [facility] Test 11:27:44 [code = COLONOSCOPY SCREENING] Future Scheduled 2022-03-23 SHINGLES VACCINES (1 Met [facility] Test 11:27:44 of 2) [code = SHINGLES VACCINES (1 of 2)] Future Scheduled 2022-03-23 65+ [facility]UMOCOCCAL [facility] 11:27:44 VACCINE (1 - PCV) [code = 65+ PNEUMOCOCCAL VACCINE (1 - PCV)] Future Scheduled 2022-03-23 INFLUENZA VACCINE [facility] 11:27:44 [code = INFLUENZA VACCINE] Future Scheduled 2022-02-26 COVID-19 VACCINE (#1) [facility] Test 13:41:51 [code = COVID-19 VACCINE (#1)] Future Scheduled 2022-02-26 BREAST CANCER [facility] Test 13:41:51 SCREENING [code = BREAST CANCER SCREENING] Future Scheduled 2022-02-[address] [facility] Test 13:41:51 [code = COLONOSCOPY SCREENING] Future Scheduled 2022-02-26 SHINGLES VACCINES (1 Met [facility] Test 13:41:51 of 2) [code = SHINGLES VACCINES (1 of 2)] Future Scheduled 2022-02-26 65+ P[facility]UMOCOCCAL [facility] 13:41:51 VACCINE (1 - PCV) [code = 65+ PNEUMOCOCCAL VACCINE (1 - PCV)] Future Scheduled 2022-02-26 INFLUENZA VACCINE [facility] Test 13:41:51 [code [...] Future Scheduled 2022-01-28 COVID-19 VACCINE (#1) [facility] Test 15:34:49 [code = COVID-19 VACCINE (#1)] Future Scheduled 2022-01-28 BREAST CANCER [facility] Test 15:34:49 SCREENING [code = BREAST CANCER SCREENING] Future Scheduled 2022-01-28 COLONOSCOPY SCREENING [facility] Test 15:34:49 [code = COLONOSCOPY SCREENING] Future Scheduled 2022-01-28 SHINGLES VACCINES (1 Met [facility] Test 15:34:49 of 2) [code = SHINGLES VACCINES (1 of 2)] Future Scheduled 2022-01-28 65+ P[facility]UMOCOCCAL [facility] 15:34:49 VACCINE (1 - PCV) [code = 65+ PNEUMOCOCCAL VACCINE (1 - PCV)] Future Scheduled 2022-01-28 INFLUENZA VACCINE [facility] Test 15:34:49 [code = INFLUENZA VACCINE] Future Scheduled 2021-10-15 HEPATITIS B VACCINES [facility] Test 06:27:31 (1 of 3 - 3-dose series) [code = HEPATITIS B VACCINES (1 of 3 - 3-dose series)] Future Scheduled 2021-10-15 COVID-19 VACCINE (#1) [facility] Test 06:27:31 [code = COVID-19 VACCINE (#1)] Future Scheduled 2021-10-15 BREAST CANCER [facility] Test 06:27:31 SCREENING [code = BREAST CANCER SCREENING] Future Scheduled 2021-10-[address] [facility] Test 06:27:31 [code = COLONOSCOPY SCREENING] Future Scheduled 2021-10-15 SHINGLES VACCINES (1 [facility] Test 06:27:31 of 2) [code = SHINGLES VACCINES (1 of 2)] Future Scheduled 2021-10-15 65+ [facility]OCOCCAL [facility] Test 06:27:31 VACCINE (1 - PCV) [...] IPPE (WELCOME TO MEDICARE)] Future Scheduled 2021-10-15 Medicare IPPE (WELCOME [facility]ICARE) [code = Medical Center Medicare IPPE (WELCOME TO MEDICARE)] Future Scheduled 2021-10-15 Medicare IPPE (WELCOME C [...] Future Scheduled [address] [facility] malignant neoplasm [facility] breast (procedure) [code = 506028177] Future Scheduled [address] [facility] Test 00:00:00 (combo) [code = CT Medical C enter Colonography (combo)] Future Scheduled [address] [facility] 00:[facility]:00 [facility] colon (procedure) [code = 463237046] Future Scheduled [address] [facility] Test 00:00:00 malignant [facility] colon (procedure) [code = 230749896] Future Scheduled 1951 DXA SCAN [code = DXA [facility] Test 00:00:00 SCAN] [facility] Future Scheduled [address] [facility] Test 00:00:00 malignant ne[facility] colon (procedure) [code = 633606616] Future Scheduled [address] [facility] Test 00:00:00 malignant neoplasm [facility] colon (procedure) [code = 705819219] Future Scheduled 1950 [facility]igmoidoscopy [facility] [address] [facility] Test 00:00:00 malignant neoplasm [facility] Center breast (procedure) [code = 702521686] Future Scheduled [address] [facility] Test 00:00:00 (combo) [code = CT Medical C enter Colonography (combo)] Future Scheduled [address] [facility] Test 00:00:00 malignant neoplasm [facility] Center colon (procedure) [code = 125445377] Future Scheduled [address] [facility] Test 00:00:00 malignant neoplasm [facility] Center colon (procedure) [code = 569235616] Future Scheduled 1951 DXA SCAN [code = DXA [facility] Test 00:00:00 SCAN] [facility] Future Scheduled [address] [facility] Test 00:00:00 malignant neoplasm of [facility] Center colon (procedure) [code = 701945388] Future Scheduled [address] [facility] Test 00:00:00 malignant neoplasm [facility] Center colon (procedure) [code = 448973546] Future Scheduled 1951 [facility]oscopy [facility] [address] [facility] Test 00:00:00 malignant neoplasm [facility] Center breast (procedure) [code = 619948755] Future Scheduled [address] [facility] Test 00:00:00 (combo) [code = CT Medical C enter Colonography (combo)] Future Scheduled [address] [facility] Test 00:00:00 malignant neoplasm [facility] Center colon (procedure) [code = 425226772] Future Scheduled [address] [facility] Test 00:00:00 malignant neoplasm of [facility] Center colon (procedure) [code = 861534149] Future Scheduled 1951 DXA SCAN [code = DXA [facility] Test 00:00:00 SCAN] [facility] Future Scheduled [address] [facility] Test 00:00:00 malignant neoplasm of [facility] Center colon (procedure) [code = 342943370] Future Scheduled [address] [facility] Test 00:00:00 malignant neoplasm of [facility] Center colon (procedure) [code = 313055588] Future Scheduled 1951 [facility]oidoscopy [facility]] [facility] Future Scheduled [address] [facility] Test 00:00:00 malignant neoplasm of [facility] Center breast (procedure) [code = 855801007] Future Scheduled [address] [facility] Test 00:00:00 (combo) [code = CT Medical C enter Colonography (combo)] Future Scheduled [address] [facility] Test 00:00:00 malignant neoplasm of [facility] Center colon (procedure) [code = 509757630] Future Scheduled [address] [facility] Test 00:00:00 malignant neoplasm of [facility] Center colon (procedure) [code = 429313103] Future Scheduled 1951 DXA SCAN [code = DXA [facility] Test 00:00:00 SCAN] [facility] Future Scheduled [address] [facility] Test 00:00:00 malignant neoplasm of [facility] Center colon (procedure) [code = 582174688] Future Scheduled [address] [facility] Test 00:00:00 malignant neoplasm of [facility] Center colon (procedure) [code = 636067785] Future Scheduled 1951 [facility]igmoidoscopy [facility]] [facility] Future Scheduled [address] [facility] Test 00:00:00 malignant neoplasm of [facility] Center breast (procedure) [code = 327380285] Future Scheduled [address] [facility] Test 00:00:00 (combo) [code = CT Medical C enter Colonography (combo)] Future Scheduled [address] [facility] Test 00:00:00 malignant neoplasm of [facility] Center colon (procedure) [code = 434292301] Future Scheduled [address] [facility] Test 00:00:00 malignant neoplasm of [facility] Center colon (procedure) [code = 919533649] Future Scheduled 1951 DXA SCAN [code = DXA [facility] Test 00:00:00 SCAN] [facility] Future Scheduled [address] [facility] Test 00:00:00 malignant neoplasm of [facility] Center colon (procedure) [code = 393784778] Future Scheduled [address] [facility] Test 00:00:00 malignant neoplasm of [facility] Center colon (procedure) [code = 627316317] Future Scheduled 1951 [facility]oidoscopy [facility]] [facility] Future Scheduled [address] [facility] Test 00:00:00 malignant neoplasm of [facility] Center breast (procedure) [code = 120262564] Future Scheduled [address] [facility] Test 00:00:00 (combo) [code = CT Medical C enter Colonography (combo)] Future Scheduled [address] [facility] Test 00:00:00 malignant neoplasm of [facility]ica [facility] Center colon (procedure) [code = 075830138] Future Scheduled [address] [facility] Test 00:00:00 malignant neoplasm of [facility] Center colon (procedure) [code = 937071534] Future Scheduled 1951 DXA SCAN [code = DXA [facility] Test 00:00:00 SCAN] [facility] Future Scheduled [address] [facility] Test 00:00:00 malignant neoplasm of [facility]ica [facility] Center colon (procedure) [code = 089173259] Future Scheduled [address] [facility] Test 00:00:00 malignant neoplasm of [facility]ica [facility] Center colon (procedure) [code = 269554013] Future Scheduled 1951 Sigmoidoscopy [facility] Encounters Start End Encounter Admission Attending Care Care Encounter Source Date/Time Date/Time Type Type Clinicians Facility Department ID 2021-06-09 Outpatient [facility] [id number] [place] 14:19:02 [id number] [facility] 2022-02-19 2022-02-22 [facility] [id number] 22[facility] 13:36[facility]00 [facility]22-[facility] 2022-02-[address] [id number] [place] 22:07:00 13:36:00 [facility] 2022-02-19 2022-02-22 [facility] [id number] 22:07:00 13:36:00 Encounter [facility] 2022-02-20 2022-02-20 Travel [facility] [id number] 00[facility]00 [facility] 2022-02-20 2022-02-20 Travel [facility] [id number] [facility] 00:[facility]:00 [facility] 2021-06-22 2021-06-22 Outpatient EFRAÍN [facility] [id number] Univers 10:40:00 10:40:00 EFRAÍN WU [facility] 2021-06-17 2021-06-17 Telephone Emma [facility] 1.2.840.114 [id number] Univers 00:00:00 00:00:00 [facility] [id number] ity of [place] 4.2.7.2.686 Trino as MARQUES?BLEA [phone] Hi michele LARIOS [address] [place] [address] MEDICAL OFFICE BUILDING 2021-05-17 2021-05-27 Inpatient EM Kt [facility] [id number] [facility] 02:24:00 14:50:00 66 [facility] 2020-09-07 2020-09-07 [facility] 1.2.840.114 [id number] Univers 00:00:00 00:00:[address] [facility] 350.1.13.10 it[place] of [place] [phone] [place] [address] [address] [facility] 2020-06-18 2020-06-18 [facility] 1.2.840.114 [id number] Univers 00:00:00 00:00:[address] [facility] 350.1.13.10 it[place] of [place] [phone] [place] [address] [address] [facility] 2020-05-12 2020-05-12 Outpatient R [facility]IELLA [facility] [id number] Univers 16:00:00 16:00:00 ALLA ity of [facility] 2020-04-18 2020-04-18 Telephone [facility] 1.2.840.114 [id number] Univers 00:00:00 00:00:[address] [facility] 350.1.13.10 it[place] of [place] [phone] [place] [address] [address] [facility] 2020-04-18 2020-04-18 [facility] 1.2.840.114 [id number] Univers 00:00:00 00:00:00 Efraín Radford [place] 350.1.13.10 ity of [place] [phone] [place] [address] [address] [facility] 2020-04-18 2020-04-18 [facility] 1.2.840.114 [id number] Univers 00:00:00 00:00:00 Efraín De Los Santoston 350.1.13.10 ity of [place] [phone] [address] 2020-04-17 2020-04-17 Thurmond [facility] 1.2.840.114 [id number] Univers 00:00:00 00:00:00 Efraín Foster 350.1.13.10 ity of [place] [phone] [address] 2020-04-16 2020-04-16 Jonathan [facility] 1.2.840.114 [id number] Univers 00:00:00 00:00:00 Efraín Foster 350.1.13.10 ity of [place] [phone] [address] 2020-04-16 2020-04-16 [facility] 1.2.840.114 [id number] Univers 00:00:00 00:00:00 Efraín Foster 350.1.13.10 it[place] of [place] [phone] [facility] 059 [facility] 2020-04-16 2020-04-16 [facility] 1.2.840.114 [id number] Univers 00:00:00 00:00:00 Efraín Foster 350.1.13.10 [place] of [place] [phone] [address] 2020-04-14 2020-04-14 Sherri BREWER [facility] [id number] Univers 15:50:00 15:50:00 ALLA ity of [facility] 2020-03-19 2020-03-19 [facility] 1.2.840.114 [id number] Univers 00:00:00 00:00:00 Efraín Radford Kristin 350.1.13.10 ity of [place]2.[place].2.[place] [phone] Hi [address] 2020-02-28 2020-02-28 [facility] 1.2.840.114 [id number] Univers 00:00:00 00:00:00 Efraín Radford Kristin 350.1.13.10 it[place] of [place] [phone] [address] 2020-02-19 2020-02-19 [facility] 1.2.840.114 [id number] Univers 00:00:00 00:00:00 Efraín Radford Kristin 350.1.13.10 [place] of [place] [phone] [address] 2020-01-21 2020-01-21 [facility] 1.2.840.114 [id number] Univers 00:00:00 00:00:00 Efraín Foster 350.1.13.10 [place] of [place] [phone] [address] 2020-01-21 2020-01-21 Orders Doctor BOLTON 1.2.840.114 [id number] Univers 00:00:00 00:00:00 Only Unassigned, JESUSITA 350.1.13.10 ity of [place] [facility] 4.2.7.2.686 Trino as [phone] [address] 2019-12-25 2019-12-25 [facility] 1.2.840.114 [id number] Univers 00:00:00 00:00:00 Efraín Foster 350.1.13.10 ity of [place] [phone] [address] 2019-12-24 2019-12-24 [facility] 1.2.840.114 [id number] Univers 00:00:00 00:00:00 Efraín Foster 350.1.13.10 ity of [place] [phone] [address] 2019 2019 [facility] 1.2.840.114 [id number] Univers 00:00:00 00:00:00 Efraín Foster 350.1.13.10 ity of [place] [phone] [address] 2019-11-23 2019-11-23 [facility] 1.2.840.114 [id number] Univers 00:00:00 00:00:00 Efraín Foster 350.1.13.10 ity of [place]2.[place] [phone] [address] 2019-11-23 2019-11-23 [facility] 1.2.840.114 [id number] Univers 00:00:00 00:00:00 Efraín Foster 350.1.13.10 it[place] of [place] [phone] [address] 2019-10-29 2019-10-29 [facility] 1.2.840.114 [id number] Univers 00:00:00 00:00:00 Efraín Foster 350.1.13.10 ity of [place] [phone] [address] 2019-10-26 2019-10-26 [facility] 1.2.840.114 [id number] Univers 00:00:00 00:00:00 Efraín De Los Santoston 350.1.13.10 ity of [place] 4.2.7.2.[place] [phone] [address] 2019-09-28 2019-09-28 [facility] 1.2.840.114 [id number] Univers 00:00:00 00:00:00 Efraín Foster 350.1.13.10 ity of [place] [phone] [address] 2019-09-28 2019-09-28 [facility] 1.2.840.114 [id number] Univers 00:00:00 00:00:00 Efraín Radford Kristin 350.1.13.10 it[place] of [place] [phone] [address] 2019-09-25 2019-09-25 [facility] 1.2.840.114 [id number] Univers 00:00:00 00:00:00 Efraín Foster 350.1.13.10 ity of [place] [phone] [address] 2019-09-10 2019-09-10 Sherri [facility] [id number] Univers 13:00:00 13:00:00 KRISTEL ity of [facility] 2019-08-22 2019-08-22 [facility] 1.2.840.114 [id number] Univers 00:00:00 00:00:00 Efraín Foster 350.1.13.10 it[place] of [place] [phone] [address] 2019-07-23 2019-07-23 [facility] 1.2.840.114 [id number] Univers 00:00:00 00:00:00 Efraín Foster 350.1.13.10 [place] of [place] [phone] [address] 2019-07-20 2019-07-20 [facility] 1.2.840.114 [id number] Univers 00:00:00 00:00:00 Efraín Foster 350.1.13.10 ity of [place].2.[place] [phone] [address] 2019-07-20 2019-07-20 Thurmond [facility] 1.2.840.114 [id number] Univers 00:00:00 00:00:00 Efraín Foster 350.1.13.10 ity of [place].2.[place] [phone] [address] 2019-07-20 2019-07-20 Thurmond [facility] 1.2.840.114 [id number] Univers 00:00:00 00:00:00 Efraín Foster 350.1.13.10 ity of [place] [phone] [address] 2019-07-19 2019-07-19 Thurmond [facility] 1.2.840.114 [id number] Univers 00:00:00 00:00:00 Efraín Foster 350.1.13.10 ity of [place] [phone] [address] 2019-07-18 2019-07-18 [facility] 1.2.840.114 [id number] Univers 00:00:00 00:00:00 Efraín Foster 350.1.13.10 it[place] of [place] [phone] [address] 2019-07-06 2019-07-06 [facility] 1.2.840.114 [id number] Univers 00:00:00 00:00:00 Efraín Foster 350.1.13.10 [place] of [place] [phone] [address] 2019-07-05 2019-07-05 Balwinder Saunders [facility] 1.2.840.114 [id number] Univers 00:00:00 00:00:00 WondiVtap A [employer] 350.1.13.10 ity of [place] 4.2.7.2.686 Trino as Professio [phone] [facility] 044 [facility] 2019-07-03 2019-07-03 Telemedici Emma [facility] 1.2.840.114 [id number] Univers 08:05:45 10:48:54 ne Visit Efraín Foster 350.1.13.10 ity of [place]7.2.[place] [phone] [facility] [address] [place] [address] 2019-07-03 2019-07-03 Outpatient R EFRAÍN WU [facility] [id number] Univers 09:20:00 09:20:00 EFRAÍN WU ity of [facility] 2019-06-19 2019-06-19 Telephone [facility] 1..840.114 [id number] Univers 00:00:00 00:00:00 Efraín Foster 350.1.13.10 it[place] of [place] [phone] [address] 2019-06-18 2019-06-18 Telephone [facility] 1.2.840.114 [id number] Univers 00:00:00 00:00:00 Efraín Foster 350.1.13.10 it[place] of [place] [phone] [address] 2019-05-28 2019-05-28 Refill Emma, [facility] 1.2.840.114 [id number] Univers 00:00:00 00:00:00 Efraín Foster 350.1.13.10 it[place] of [place] [phone] [address] 2019-05-16 2019-05-16 Telephone [facility] 1.2.840.114 [id number] Univers 00:00:00 00:00:00 Efraín Foster 350.1.13.10 ity of [place].2.[place] [phone] Hi shirleypa greg 092 [facility] 2019-05-13 2019-05-13 Refalfonzo [facility] 1.2.840.114 [id number] Univers 00:00:00 00:00:00 Wondiful [facility] 350.1.13.10 ity of [place] 4.2.7.2.686 Trino as Professio [phone] Hi shirleypa greg 044 [facility] 2019-05-13 2019-05-13 [facility] 1.2.840.114 [id number] Univers 00:00:00 00:00:00 Efraín Foster 350.1.13.10 it[place] of [place] [phone] Hi shirleypa greg [address] [place] [address] 2019-05-09 2019-05-09 Outpatient R ELISSA [facility] [id number] Univers 14:15:00 14:15:00 TAMARA ity [facility] 2019-05-09 2019-05-09 Telephone [facility] 1.2.840.114 [id number] Univers 00:00:00 00:00:00 Wondiful [facility] 350.1.13.10 ity of [place] 4.2.7.2.686 Trino as Professio [phone] Hi michele garza [address] [place] [address] 2019-05-09 2019-05-09 Telephone [facility] 1.2.840.114 [id number] Univers 00:00:00 00:00:00 Tamara D SPECIALTY 350.1.13.10 [place] [phone] Hi michele MERIDA [address] [place] [address] 2019-05-08 2019-05-08 Telephone [facility] 1.2.840.114 [id number] Univers 00:00:00 00:00:00 Wondiful A [facility] 350.1.13.10 ity of [place] 4.2.7.2.686 Trino as Professio [phone] Hi dical nal 044 [facility] 2019-04-20 2019-04-20 Office [facility] 1.2.840.114 [id number] [facility] 09:23:30 19:21:09 Visit Adenful A Health 350.1.13.10 ity of [place] 4.2.7.2.686 Trino as Professio [phone] Hi dical nal 044 [facility] 2019-04-20 2019-04-20 Outpatient R [facility] [id number] Univers 09:00:00 09:00:00 WONDIFUL ity o f [facility] 2019-04-19 2019-04-19 Telephone [facility] 1.2.840.114 [id number] [facility] 00:00:00 00:00:00 Efraín Foster 350.1.13.10 [place] of [place] [phone] Hi dical nal 092 [facility] 2019-04-15 2019-04-15 Refill [facility] 1.2.840.114 [id number] [facility] 00:00:00 00:00:00 Efraín Foster 350.1.13.10 [place] of [place] [phone] Hi dicpa nal [address] [place] [address] 2019-03-23 2019-03-23 [facility] 1.2.840.114 [id number] [facility] 09:58:29 11:26:48 Visit Efraín Foster 350.1.13.10 [place] of [place] [phone] Hi dical nal [address] [place] [address] 2019-03-22 2019-03-22 [facility] 1.2.840.114 [id number] Univers 00:00:00 00:00:00 Efraín Foster 350.1.13.10 it[place] of [place] [phone] Hi dicpa nal [address] [place] [address] 2019-03-22 2019-03-22 [facility] 1.2.840.114 [id number] Univers 00:00:00 00:00:00 Efraín Foster 350.1.13.10 [place] of [place] [place]7.2.686 [phone] [place] 199852 [facility] 2019-03-16 2019-03-16 [facility] 1.2.840.114 [id number] Univers 00:00:00 00:00:00 Efraín Foster 350.1.13.10 it[place]2.[place] [phone] [address] 2019-03-07 2019-03-07 Jonathan [facility] 1.2.840.114 [id number] Univers 00:00:00 00:00:00 Efraín Foster 350.1.13.10 it[place]7.2.[place] [phone] [address] 2018-09-08 2018-09-08 [facility] 1.2.840.114 [id number] Univers 00:00:00 00:00:00 Efraín Foster 350.1.13.10 [place]2.[place] [phone] [address] Results Test Description Test Time Test Comments Results Result Comments Source POC-Glucose meter 2022-02-22 11:38:16 Test Item Value Reference Range Interpretation Comme nts POC-Glucose Meter (test code = 162 mg/dL 70-110 H : TESTED AT [facility] BERRYSAN DIEGO 1538) [place] [address] [address]: Drug Abuse Social Worker/Techni whitney ID = [id number] for Torrez La Lab Interpretation (test code = Abnormal 87892-8) [facility] [id number] 11:38:16 Test Item Value Reference Range Interpretation Comments POC-Glucose Meter (test 162 mg/dL 70-110 H : TE STED AT [facility] code = 1538) [place] [address]: Drug Abuse Social Worker/Techni whitney ID = [id number] for Torrez, [place] Lab Interpretation (test Abnormal code = 42041-2) [facility]-Glucose [id number] 11:38:16 Test Item Value Reference Range Interpretation Comments POC-Glucose Meter (test 162 mg/dL 70-110 H : TE STED AT [facility] code = 1538) [address], [place] [address]: Drug Abuse Social Worker/Techni whitney ID = [id number] for Torrez, La Lab Interpretation (test Abnormal code = 59219-7) [facility]-Glucose [id number] 11:38:16 Test Item Value Reference Range Interpretation Comments POC-Glucose Meter (test 162 mg/dL 70-110 H : TE STED AT [facility] code = 1538) [address], [place] [address]: Drug Abuse Social Worker/Techni whitney ID = [id number] for Torrez, La Lab Interpretation (test Abnormal code = 60329-2) [facility]-Glucose [id number] 11:38:16 Test Item Value Reference Range Interpretation Comments POC-Glucose Meter (test 162 mg/dL 70-110 H : TE STED AT [facility] code = 1538) [address], [place] [address]: Drug Abuse Social Worker/Techni whitney ID = [id number] for Torrez, La Lab Interpretation (test Abnormal code = 32995-8) [facility]-Glucose [id number] 11:38:16 Test Item Value Reference Range Interpretation Comments POC-Glucose Meter (test 162 mg/dL 70-110 H : TE STED AT [facility] code = 1538) [address] [place] [address]: Drug Abuse Social Worker/Techni whitney ID = [id number] for Torrez, La Lab Interpretation (test Abnormal code = 14461-4) [facility]-GLUCOSE [id number] 11:38:16 Test Item Value Reference Range Interpretation Comments POC-GLUCOSE METER 162 mg/dL 70-110 H : TESTED A T [facility] (BEAKER) (test code [address], = 1538) [place] [id number] 0: Drug Abuse Social Worker/Techni whitney ID = [id number] for La Weldon POCT-GLUCOSE [id number] 05:57:53 Test Item Value Reference Range Interpretation Comments POC-GLUCOSE METER 144 mg/dL 70-110 H : TESTED A T [facility] (BEAKER) (test code CHASEWOO Moises JONG JONES, = 1530) [place] [id number] 0: Drug Abuse Social Worker/Techni whitney ID = [id number] for Balt ie, Christopher BASIC METABOLIC [id number] 04:43:08 Test Item Value Reference Range Interpretation [...] eGF R is based on the CKD-EPI 1 equation that d oes not use a race coefficientEsti mated GFR is not as accur ate as Creatinine Sherry johns in predicting glom erular filtration rate . Estimated GFR is not appl icable for dialysis patien ts Drug Abuse Social Worker ID - [id number] W/PLT COUNT & AUTO [id number] 04:27:28 Test Item Value Reference Range Interpretation [...] PERCENT (BEAKER) (test code = 2801) POCT-GLUCOSE [id number] 20:16:09 Test Item Value Reference Range Interpretation Comments POC-GLUCOSE METER 170 mg/dL 70-110 H : TESTED A T [facility] (BEAKER) (test code [address], = 1538) [place] [address] 0: Drug Abuse Social Worker/Techni whitney ID = [id number] for Alex Maddox POCT-GLUCOSE [id number] 17:12:07 Test Item Value Reference Range Interpretation Comments POC-GLUCOSE METER 147 mg/dL 70-110 H : TESTED A T [facility] (BEAKER) (test code [address], = 1538) [place] [address] 0: Drug Abuse Social Worker/Techni whitney ID = [id number] for Hemanth Levy VENOUS DOPPLER LEGS, [id number] 14:46:00Reason for exam:->Leg swellingGE[facility]. [facility]AO : 1950 Sex: FFINAL REPORT VENOUS DOPPLER [...] venous thrombosis in either leg. Signed: Gurpreet Lundbergeport Verified Date/Time: 02/21/2022 14:46:41 Reading Location: [address] Transitional Reading Room POCT-GLUCOSE [id number] 12:09:09 Test Item Value Reference Range Interpretation Comments POC-GLUCOSE METER 202 mg/dL 70-110 H : TESTED A T [facility] (BEAKER) (test code [address], = 1538) [place] [id number] 0: Drug Abuse Social Worker/Techni whitney ID = [id number] for Hemanth Levy BASIC METABOLIC [id number] 05:54:34 Test Item Value Reference Range Interpretation [...] not appl icable for dialysis patien ts Drug Abuse Social Worker ID - PURAPOCT-GLUCOSE [id number] 05:44:27 Test Item Value Reference Range Interpretation Comments POC-GLUCOSE METER 156 mg/dL 70-110 H : TESTED A T [facility] (BEAKER) (test code BERRYWOO [address], = 1538) [place] [address] 0: Drug Abuse Social Worker/Techni whitney ID = [id number] for LANC Doug KHAN CBC W/PLT COUNT & AUTO [id number] 05:38:05 Test Item Value Reference Range Interpretation [...] PERCENT (BEAKER) (test code = 2801) POCT-GLUCOSE [id number] 00:42:34 Test Item Value Reference Range Interpretation Comments POC-GLUCOSE METER 149 mg/dL 70-110 H : TESTED A T [facility] (BEAKER) (test code [address], = 1538) [place] [address] 0: Drug Abuse Social Worker/Techni whitney ID = [id number] for LANC ERIN, Glervi POCT-GLUCOSE [id number] 17:07:25 Test Item Value Reference Range Interpretation Comments POC-GLUCOSE METER 219 mg/dL 70-110 H : TESTED A T [facility] (BEAKER) (test code [address], = 1538) [place] [address] 0: Drug Abuse Social Worker/Techni whitney ID = [id number] for Merc ado Sujatha HEMOGLOBIN AND [id number] 12:35:26 Test Item Value Reference Range Interpretation Comments HEMOGLOBIN (BEAKER) (test code = 10.3 GM/DL 12.0-15.5 L 410) HEMATOCRIT (BEAKER) (test code = 33.5 % 36.0-46.0 L 411) POCT-GLUCOSE [id number] 11:31:48 Test Item Value Reference Range Interpretation Comments POC-GLUCOSE METER 113 mg/dL 70-110 H : TESTED A T [facility] (BEAKER) (test code [address], = 1538) [place] [address] 0: Drug Abuse Social Worker/Techni whitney ID = [id number] for [place], [place] RAD, CHEST, 1 VIEW, NON [id number] 08:18:00Reason for exam:->sobShould this be performed at the bedside?->Yes [facility] : 1950 Sex: FFINAL REPORT Exam: RAD, CHEST, 1 VIEW, NON DEPTDate: 02/20/2022 8:17 AM Indication:sobComparison: None available. IMPRESSION: Patient is rotated. Lines/Tubes:None Lungs and Pleura :Right retrocardiac opacity. Mildly increased interstitial opacities. No pleural effusions. No pneumothorax. Heart/Mediastinum:Cardiac silhouette is poorly evaluated, but appears enlarged. Bones/Soft Tissues: No acute osseous abnormality. Upper abdomen: Unremarkable. Signed: Martina Garces VerifiedDate/Time: 02/20/2022 08:18:26 HEMOGLOBIN AND [id number] 06:14:37 Test Item Value Reference Range Interpretation Comments HEMOGLOBIN (BEAKER) (test code = 10.1 GM/DL 12.0-15.5 L 410) HEMATOCRIT (BEAKER) (test code = 33.4 % 36.0-46.0 L 411) POCT-GLUCOSE [id number] 05:42:14 Test Item Value Reference Range Interpretation Comments POC-GLUCOSE METER 140 mg/dL 70-110 H : TESTED A T [facility] (BEAKER) (test code [address], = 1538) [facility] 3162 0: Drug Abuse Social Worker/Techni whitney ID = [id number] for Armando Novoa [id number] 00:04:03 Test Item Value Reference Range Interpretation Comments D-DIMER QUANTITATIVE 2.19 MG/L FEU <0.50 H Final Information (BEAKER) (test code = (Auto Output) 671) REGARDING D-DIMER RESULTS: The 98% NPV (Negative Predictive Value) for DVT/PE exclusion is 0.50 mg/LFEU as suggested by the tower hoist operator and as approved by the FDA.B-TYPE NATRIURETIC FACTOR (BNP)2022-02-20 00:01:32 Test Item Value Reference Range Interpretation Comments B-TYPE NATRIURETIC PEPTIDE (BEAKER) 755 pg/mL 0-100 H (test code = 700) Drug Abuse Social Worker ID - [id number] W/PLT COUNT & AUTO [id number] 23:55:41 Test Item Value Reference Range Interpretation [...] (BEAKER) (test code = 2801) BASIC METABOLIC [id number] 23:55:20 Test Item Value Reference Range Interpretation [...] not appl icable for dialysis patien ts Drug Abuse Social Worker ID - BRUCEPOCT-GLUCOSE [id number] 23:45:07 Test Item Value Reference Range Interpretation Comments POC-GLUCOSE METER 170 mg/dL 70-110 H : TESTED A T [facility] (BEAKER) (test code BERRYWOO [address], = 1538) [place] [address] 0: Drug Abuse Social Worker/Techni whitney ID = [id number] for Armando Novoa Blood gas, [id number] 23:26:43 Test Item Value Reference Range Interpretation [...] 8310-5) Lab Interpretation Abnormal (test code = 93091-4) [facility], [id number] 23:26:43 Test Item Value Reference Range Interpretation [...] 8310-5) Lab Interpretation Abnormal (test code = 76218-4) [facility] gas, [id number] 23:26:43 Test Item Value Reference Range Interpretation [...] 8310-5) Lab Interpretation Abnormal (test code = 69836-9) [facility] gas, [id number] 23:26:43 Test Item Value Reference Range Interpretation [...] 8310-5) Lab Interpretation Abnormal (test code = 28430-0) [facility], [id number] 23:26:43 Test Item Value Reference Range Interpretation [...] 8310-5) Lab Interpretation Abnormal (test code = 20829-2) [facility], [id number] 23:26:43 Test Item Value Reference Range Interpretation [...] 8310-5) Lab Interpretation Abnormal (test code = 15670-0) [facility] CenterBLOOD GAS, [id number] 23:26:43 Test Item Value Reference Range Interpretation [...] TEMPERATURE (BEAKER) 36.0 (test code = 1818) [id number] 00:11:00 Test Item Value Reference Range Interpretation Comments GLUBED (test code = GLUBED) 115 MG/DL 70-105 H [id number] 12:02:00 Test Item Value Reference Range Interpretation Comments GLUBED (test code = GLUBED) 148 MG/DL 70-105 H [id number] 00:29:00 Test Item Value Reference Range Interpretation Comments GLUBED (test code = GLUBED) 124 MG/DL 70-105 H [id number] 20:43:00 Test Item Value Reference Range Interpretation Comments GLUBED (test code = GLUBED) 142 MG/DL 70-105 H [id number] 13:20:00 Test Item Value Reference Range Interpretation Comments GLUBED (test code = GLUBED) 180 MG/DL 70-105 H [id number] 05:56:00 Test Item Value Reference Range Interpretation Comments GLUBED (test code = GLUBED) 123 MG/DL 70-105 H [id number] 00:28:00 Test Item Value Reference Range Interpretation Comments GLUBED (test code = GLUBED) 104 MG/DL 70-105 N B-TYPE NATRIURETIC [id number] 08:07:00 Test Item Value Reference Range Interpretation Comments B-TYPE NATRIURETIC PEPTIDE (test 793 pg/mL <100 H code = BNP) BASIC METABOLIC [id number] 08:07:00 Test Item Value Reference Range Interpretation [...] New = CA) Reference Range Mar 2020 [id number] 08:07:00 Test Item Value Reference Range Interpretation Comments PHOSPHOROUS (test code 2.9 mg/dL 2.4-5.1 N Pleas e note: New = PHOS) Reference Range Mar 2020 [id number] 08:07:00 Test Item Value Reference Range Interpretation Comments MAGNESIUM (test code = 1.8 mg/dL 1.6-2.6 N Pleas e note: New MAG) Reference Range Mar 2020 CBC W/AUTO [id number] 07:49:00 Test Item Value Reference Range Interpretation [...] = BA#) 0.03 x10 3/uL 0.0-0.20 N [id number] 07:40:00 Test Item Value Reference Range Interpretation Comments GLUBED (test code = GLUBED) 115 MG/DL 70-105 H [id number] 00:35:00 Test Item Value Reference Range Interpretation Comments GLUBED (test code = GLUBED) 126 MG/DL 70-105 H [id number] 17:23:00 Test Item Value Reference Range Interpretation Comments GLUBED (test code = GLUBED) 121 MG/DL 70-105 H [id number] 11:54:00 Test Item Value Reference Range Interpretation Comments GLUBED (test code = GLUBED) 125 MG/DL 70-105 H [id number] 07:41:00 Test Item Value Reference Range Interpretation Comments GLUBED (test code = GLUBED) 116 MG/DL 70-105 H COMPREHENSIVE METABOLIC [id number] 07:16:00 Test Item Value Reference Range Interpretation [...] ALKP) Reference Range Mar 2020 CBC W/AUTO [id number] 07:07:00 Test Item Value Reference Range Interpretation [...] = BA#) 0.01 x10 3/uL 0.0-0.20 N [id number] 06:53:00 Test Item Value Reference Range Interpretation Comments GLUBED (test code = GLUBED) 108 MG/DL 70-105 H [id number] 00:32:00 Test Item Value Reference Range Interpretation Comments GLUBED (test code = GLUBED) 88 MG/DL 70-105 N [id number] 17:26:00 Test Item Value Reference Range Interpretation Comments GLUBED (test code = GLUBED) 103 MG/DL 70-105 N [id number] 12:28:00 Test Item Value Reference Range Interpretation Comments GLUBED (test code = GLUBED) 105 MG/DL 70-105 N [id number] 10:12:00 Test Item Value Reference Range Interpretation Comments GLUBED (test code = GLUBED) 166 MG/DL 70-105 H [id number] 06:35:00 Test Item Value Reference Range Interpretation Comments GLUBED (test code = GLUBED) 117 MG/DL 70-105 H [id number] 02:42:00 Test Item Value Reference Range Interpretation Comments GLUBED (test code = GLUBED) 116 MG/DL 70-105 H [id number] 12:06:00 Test Item Value Reference Range Interpretation Comments GLUBED (test code = GLUBED) 151 MG/DL 70-105 H - XR CHEST 1 [id number] 08:30:00 [facility] : 1950 Sex: FPatient Name: CYNDI MONTAÑO Unit No: [id number] EXAMS: CPT CODE: [id number] XR CHEST 1 V 36053 CHEST 1VIEW: INDICATION: chf COMPARISON: There are no prior studies for comparison. Location: W1 A single portable AP view of the chest demonstrates moderate cardiomegaly with a mildly elongated aorta. A nasogastric tube extends to the stomach. Mild hazy bilateral lung opacities are visible. No apparent pleu ral effusion nor pneumothorax. The visualized bony structures are unremarkable. IMPRESSION: 1. MildCHF. at 0830 Reported and signed by: Delio Manley MD CC: Kt Holly MD; Ashanti Barker MD Technologist: Gavin Ledesma Fluoro Time: DAP (Gy m2): Air Kerma (mGy): Trscr Dt/Tm: 05/22/2021 (0830) by:[email or web address] Printed Date/Time: 05/22/2021 (0833) Name: CYNDI MONTAÑO [facility] Phys: Ashanti Carrizales [address] : 1950 Age: 70 Sex: [place] [address] Loc: P.0635 1 Exam Date:05/22/2021 Status: ADM IN PH: FAX: PAGE 1 Signed ReportBASIC METABOLIC [id number] 07:12:00 Test Item Value Reference Range Interpretation [...] CA) Reference Range Mar 2020 B-TYPE NATRIURETIC [id number] 07:12:00 Test Item Value Reference Range Interpretation Comments B-TYPE NATRIURETIC PEPTIDE (test 857 pg/mL <100 H code = BNP) [id number] 00:21:00 Test Item Value Reference Range Interpretation Comments GLUBED (test code = GLUBED) 155 MG/DL 70-105 H [id number] 17:53:00 Test Item Value Reference Range Interpretation Comments MAGNESIUM (test code = 1.5 mg/dL 1.6-2.6 L Pleas e note: New MAG) Reference Range Mar 2020 [id number] 17:23:00 Test Item Value Reference Range Interpretation Comments GLUBED (test code = GLUBED) 170 MG/DL 70-105 H [id number] 13:04:00 Test Item Value Reference Range Interpretation Comments GLUBED (test code = GLUBED) 153 MG/DL 70-105 H BASIC METABOLIC [id number] 11:13:00 Test Item Value Reference Range Interpretation [...] New = CA) Reference Range Mar 2020 [id number] 07:33:00 Test Item Value Reference Range Interpretation Comments GLUBED (test code = GLUBED) 140 MG/DL 70-105 H [id number] 00:56:00 Test Item Value Reference Range Interpretation Comments GLUBED (test code = GLUBED) 118 MG/DL 70-105 H [id number] 17:29:00 Test Item Value Reference Range Interpretation Comments GLUBED (test code = GLUBED) 118 MG/DL 70-105 H [id number] 12:33:00 Test Item Value Reference Range Interpretation Comments GLUBED (test code = GLUBED) 134 MG/DL 70-105 H BASIC METABOLIC [id number] 08:34:00 Test Item Value Reference Range Interpretation [...] CA) Reference Range Mar 2020 CBC W/AUTO [id number] 08:07:00 Test Item Value Reference Range Interpretation [...] = BA#) 0.00 x10 3/uL 0.0-0.20 N [id number] 05:32:00 Test Item Value Reference Range Interpretation Comments GLUBED (test code = GLUBED) 118 MG/DL 70-105 H [id number] 00:15:00 Test Item Value Reference Range Interpretation Comments GLUBED (test code = GLUBED) 99 MG/DL 70-105 N [id number] 12:09:00 Test Item Value Reference Range Interpretation Comments GLUBED (test code = GLUBED) 184 MG/DL 70-105 H [id number] 08:04:00 Test Item Value Reference Range Interpretation Comments GLUBED (test code = GLUBED) 193 MG/DL 70-105 H [id number] 08:04:00 Test Item Value Reference Range Interpretation Comments GLUBED (test code = GLUBED) 189 MG/DL 70-105 H BASIC METABOLIC [id number] 07:37:00 Test Item Value Reference Range Interpretation [...] CA) Reference Range Mar 2020 COMPREHENSIVE METABOLIC [id number] 07:37:00 Test Item Value Reference Range Interpretation [...] ALKP) Reference Range Mar 2020 CBC W/AUTO [id number] 07:30:00 Test Item Value Reference Range Interpretation [...] = BA#) 0.01 x10 3/uL 0.0-0.20 N [id number] 17:32:00 Test Item Value Reference Range Interpretation Comments GLUBED (test code = GLUBED) 192 MG/DL 70-105 H [id number] 13:01:00 Test Item Value Reference Range Interpretation Comments GLUBED (test code = GLUBED) 205 MG/DL 70-105 H [id number] 13:01:00 Test Item Value Reference Range Interpretation Comments GLUBED (test code = GLUBED) 213 MG/DL 70-105 H [id number] 13:01:00 Test Item Value Reference Range Interpretation Comments GLUBED (test code = GLUBED) 257 MG/DL 70-105 H - XR ABDOMEN [id number] 08:26:00 [facility] : 1950 Sex: FPatient Name: CYNDI MONTAÑO Unit No: [id number] EXAMS: CPT CODE: [id number] XR ABDOMEN 1V 89557 ABDOMEN, SINGLE VIEW DICTATION LOCATION A1 HISTORY: [...] 0826 Reported and signed by: Yariel Patel Jr,[facility]: Kt Holly MD; Antony Milner Jr, MD Technologist: Gavin Ledesma Fluoro Time: DAP (Gy m2): AirKerma (mGy): Trscr Dt/Tm: 05/18/2021 (825) by:Efren Printed Date/Time: 05/18/2021 (828) Name: CYNDI MONTAÑO [facility] Phys: Antony Johnson Jr, MD [address] : 1950 Age: 70 Sex: [place] [address] Loc: P.0635 1 Exam Date: 05/18/2021 Status: ADM IN PH: FAX: PAGE 1 Signed ReportCOMPREHENSIVE METABOLIC [id number] 06:58:00 Test Item Value Reference Range Interpretation [...] AVG 11.04~~~~~~~~~~ ~~~~~~~ ~~~~~~~~~~~~~~~ ~~~~~~~ ~~~~~~~~~~~~~~~ ~~~~~~[facility] Education (NCEP ) Guidelines:~~~~ ~~~~~~~ ~~~~~~~~~~~~~~~ ~~~~~~~ ~~~~~~~~~~~~~~~ ~~~~~~~ ~~~~~ HDL Cholesterol<4 0mg/dL: HDL Cholesterol (Major risk factor for CHD)>60mg/dL: H DL Cholesterol (Ne gative risk factor for CHD)40-59mg/dL: Borderline Risk LDL Cholesterol<1 00mg/dL : Desirable LDL -C qgmmfzcodjrdq74 0-159mg /dL: Borderline High Risk LDL-C rjgfacspxphve73 0-189mg /dL: High risk LDL-C concentration H DL-LDL Cholesterol is affected by a n umber of factors such as smoking, age an d sex.~~~~~~~~~~~ ~~~~~~~ ~~~~~~~~~~~~~~~ ~~~~~~~ ~~~~~~~~~~~~~~~ ~~~~~ HGBA1C - GLYCOSYLATED [id number] 06:58:00 Test Item Value Reference Range Interpretation Comments GLYCOSYLATED HEMOGLOBIN 6.9 % <5.7 H Diab etic >/= (HA1C) (test code = 6.5%Pred iabetes GLYHGB) 5.7-6.4%Normal < 5.7% CBC W/AUTO [id number] 06:40:00 Test Item Value Reference Range Interpretation [...] = BA#) 0.00 x10 3/uL 0.0-0.20 N [id number] 04:52:00 Test Item Value Reference Range Interpretation Comments GLUBED (test code = GLUBED) 200 MG/DL 70-105 H [id number] 04:52:00 Test Item Value Reference Range Interpretation Comments GLUBED (test code = GLUBED) 260 MG/DL 70-105 H [id number] 17:59:00 Test Item Value Reference Range Interpretation Comments GLUBED (test code = GLUBED) 221 MG/DL 70-105 H [id number] 17:59:00 Test Item Value Reference Range Interpretation Comments GLUBED (test code = GLUBED) 207 MG/DL 70-105 H - CT ABD PELVIS [id number] 12:45:00 [facility] : 1950 Sex: FPatient Name: CYNDI MONTAÑO Unit No: [id number] EXAMS: CPT CODE: [id number] CT ABD PELVIS W/CONT 92005OFQV: - CT ABD PELVIS W/CONT Location: B2 [...] Vessels: No visualized abnormality. Name: CYNDI MONTAÑO [facility] Phys: Ho Chavez [address] : 1950 Age: 70Sex: [place] [address] Loc: P.0635 1 Exam Date: 05/17/2021 Status: ADM IN PH: FAX: PAGE 1 Signed Report (CONTINUED) Patient Name: CYNDI MONTAÑO Unit No: [id number] EXAMS: CPT CODE: [id number] CT ABD PELVIS W/CONT 50627 (Continued) Lymph nodes: No lymphadenopathy Peritoneum/retroperitoneum: No [...] colon where there is a 5 cm sectionof narrowing which may represent sequelae of diverticulitis [...] CTDI: 14.37 DLP: 892 Trscr Dt/Tm: 05/17/2021 (8753) by:[email or web address] Printed Date/Time: 05/17/2021 (8962) Name: CYNDI MONTAÑO [facility] Phys: Ho Chavez [address] : 1950 Age: 70 Sex: [place] [address] Loc: P.0635 1 Exam Date: 05/17/2021 Status: ADM IN PH: FAX: PAGE 2 Signed Report- US ABDOMEN [id number] 11:02:00 [facility] : 1950 Sex: FPatient Name: CYNDI MONTAÑO Unit No: [id number] EXAMS: CPT CODE: [id number] US ABDOMEN COMPLETE [id number]: ABDOMINAL ULTRASOUND COMPLETE INDICATION: abdominal pain LOCATION CODE: A 1 COMPARISON: None available. TECHNIQUE: Grayscale and limited color sonographic evaluation of the abdomen was performed. FINDINGS: Evaluation is limited by patient body habitus and overlying right upper quadrant scar. JASPREET ER: The right liver measures 16.2 cm in [...] AND INFERIOR VENA CAVA: Visualized portions appear unrem arkable. ASCITES: There is no abdominal ascites. IMPRESSION: Limited evaluation due to patient body habitus and overlying right upper quadrant scar. No acute abdominal abnormality is clearly seen. Name: CYNDI MONTAÑO [facility] Phys: Kt Wilson MD [address] : 1950 Age: 70 Sex: [place] [address] Loc: P.0635 1 Exam Date: 05/17/2021 Status: ADM IN PH: FAX: PAGE 1 Signed Report (CONTINUED) Patient Name: CYNDI MONTAÑO Unit No: [id number] EXAMS: CPT CODE: [id number] US ABDOMEN COMPLETE 60222 (Continued) at 1102 Reported and signed by: SHELIA CROWELL M.D. CC: Carlos Eduardo Holly MD Technologist: TERI CONNOR RDMS (AB) Probe: Trscr Dt/Tm: 05/17/2021 (1102) by:[email or web address] Printed Date/Time: 05/17/2021 (1106) Name: CYNDI MONTAÑO [facility] Phys: Carlos Eduardo Wilson MD [address] : 1950 Age: 70 Sex: [place] [address] Loc: P.0 635 1 Exam Date: 05/17/2021 Status: ADM IN PH: FAX: PAGE 2 Signed Report- XR ABDOMEN [id number] 10:33:00 [facility] : 1950 Sex: FPatient Name: CYNDI MONTAÑO Unit No: [id number] EXAMS: CPT CODE: [id number] XR ABDOMEN 1V [id number] EXAM: XR ABDOMEN 1 VIEW INDICATION: NG [...] Printed Date/Time: 05/17/2021 (1036) Name: CYNDI MONTAÑO [facility] Phys: Lorenzo Moses DO [address] : 1950 Age: 70 Sex: [place] [address] Loc: P.[id number] 1 Exam Date: 05/17/2021 Status: ADM IN PH: FAX: PAGE 1 Signed [id number] 08:49:00 Test Item Value Reference Range Interpretation Comments MAGNESIUM (test code = 1.6 mg/dL 1.6-2.6 N Pleas e note: New MAG) Reference Range Mar 2020 THYROID STIMULATING [id number] 08:49:00 Test Item Value Reference Range Interpretation Comments THYROID STIMULATING 1.25 mIU/mL 0.55-4.78 N Please n ote: New HORMONE (test code = Referen ce Range Mar TSH) 2020 COMPREHENSIVE METABOLIC [id number] 08:49:00 Test Item Value Reference Range Interpretation [...] Range Feb code = ALKP) 2020 PROTHROMBIN [id number] 08:35:00 Test Item Value Reference Range Interpretation [...] 2.5-3.5recurren t systemic emboli sm. THROMBOPLASTIN TIME [id number] 08:35:00 Test Item Value Reference Range Interpretation Comments THROMBOPLASTIN TIME 30.6 SECONDS 23.8-34.8 N INTERPRE TATIVE PARTIAL (test code = DATA:Th erapeutic PTT) range: Unfractionated heparin:55 - 80 seconds Argatroban:1.5 to 3 times the basel ine PTT CBC W/AUTO [id number] 08:27:00 Test Item Value Reference Range Interpretation [...] = BA#) 0.01 x10 3/uL 0.0-0.20 N Notes Date/Time Note Provider Source 2021-05-27 17:16:00-00:00 [facility] ([facility]) Behav. Health Progress Note REPORT #: [id number] REPORT STATUS: Signed DATE: 05/27/21 TIME: 1716 PATIENT: CYNDI MONTAÑO UNIT #: [id number] ROOM #: [facility]35 BED: 1 : 51 AGE: 70 SEX: F ATTEND: Kt Holly MD ADM AUTHOR: Danielle Castro MD ATTENTION *EDITS and/or ADDENDA must be made in Patient Ke eper for this note. * * Edits and ammendments created in [employer] are not visible * * in Patient Keeper or the legal medical record (HPF). * -- ASSESSMENT AND PLAN -- PROBLEMS: 1: Major depression, recurrent A/P: continue current treatment supportive therapy -- HISTORY -- INTERVAL HISTORY: Patient evaluated and events noted. Upon evaluation today, she is less depressed and less anxious. She denies any hallucinations and SI/HI. She is sleeping and ea ting fair. She is taking her meds and denies any side effects. She is planning to follow up with outpatient psychiatry. CHIEF COMPLAINT: Mood and anxiety -- OBJECTIVE -- VITALS (05/26 17:17 - 05/27 17:17): Temperature C: 36.9 (36.6 - 36.9) Temperature source: Oral Pulse Rate 79 (65 - 81) Respiratory rate: 19 (16 - 19) BP: 133/76 (133/69 - 159/79) -- MSE/NEURO EXAM -- -MENTAL STATUS EXAM- APPEARANCE: fair grooming MOOD: less depressed and less anxious AFFECT: congruent THOUGHT PROCESSES: concrete THOUGHT CONTENT: normal SI/HI: denies both HALLUCINATIONS: denies ALERTNESS: alert ORIENTATION: situation STRENGTHS: social support DISABILITIES: medical health issues -- DATA -- LABS GLU BED (05/27/21 11:05) GLUBED 148 H GLU BED (05/27/21 00:24) GLUBED 124 H GLU BED (05/26/21 17:31) GLUBED 142 H Signed in PatientKeeper by Danielle Castro MD o n 05/27/21 at 17:19 at 1719 ATTENTION *EDITS and/or ADDENDA must be made in Patient Ke eper for this note. * * Edits and ammendments created in [employer] are not visible * * in Patient Keeper or the legal medical record (HPF). * RPT #: [id number] END OF REPORT 2021-05-27 11:20:00-00:00 [facility] ([facility] Nephrology Progress Note REPORT #: [id number] REPORT STATUS: Signed DATE: 05/27/21 TIME: 1119 PATIENT: CYNDI MONTAÑO UNIT #: [id number] ROOM #: P.0635 BED: 1 : 51 AGE: 70 SEX: F ATTEND: Kt Holly MD ADM AUTHOR: Alo Escobedo MD ATTENTION *EDITS and/or ADDENDA must be made in Patient Ke eper for this note. * * Edits and ammendments created in [facility] are not visible * * in Patient Keeper or the legal medical record (HPF). * -- ASSESSMENT AND PLAN -- PROBLEMS: 1: MAJOR (acute kidney injury) A/P: Due to volume depletion and normalized BP. . Stable 2: Hypokalemia A/P: Stable 3: Metabolic alkalosis A/P: Better 4: HTN (hypertension) A/P: BP is controlled on Nifedipine 60 mg BID, M etoprolol 100 mg BID and Losartan 50 mg BID -- SUBJECTIVE -- PATIENT NARRATIVE: She is doing well She ate her breakfast and has no N/V or abdominal pain -- OBJECTIVE -- VITALS (05/26 11:20 - 05/27 11:20): Temperature C: 36.9 (36.6 - 36.9) Temperature source: Oral Pulse Rate 79 (65 - 81) Respiratory rate: 19 (16 - 20) BP: 133/76 (133/69 - 159/82) -EXAM- LUNGS: CTA B HEART: Regular rate and rhythm, normal S1, S2, n o murmurs, no rubs, no gallops, no clicks. ABDOMEN: Large pannus NT/ND. Decreased BS EXTREMITIES: no edema -- DATA -- MEDICATIONS LOSARTAN POTASSIUM 50 MG PO Q12HR traMADol HCL 50 MG PO Q8H PRN FUROSEMIDE 40 MG PO QAM NITROGLYCERIN 1 PATCH TOPICAL DAILY ONDANSETRON HCL/PF 4 MG IV Q4H PRN ESCITALOPRAM 10 MG PO DAILY MIRTAZAPINE 15 MG PO BEDTIME MELATONIN 3 MG PO BEDTIME PRN INSULIN LISPRO 0 UNITS SUBQ Q6HR METOPROLOL TARTRATE 100 MG PO Q12HR ALPRAZolam 0.5 MG PO Q6H PRN ACETAMINOPHEN 650 MG PO Q6H PRN DEXTROSE 50%-WATER 25 ML IV ASDIR (PRN) DEXTROSE 5%-WATER 1000 ML IV .Q24H DOCUSATE SODIUM 100 MG PO BID methIMAzole 10 MG PO DAILY FLUTICASONE/VILANTEROL 1 PUFF INH RTDAILY GLUCAGON 1 MG IM ASDIR (PRN) SPIRONOLACTONE 50 MG PO DAILY LABETALOL HCL 20 MG IV Q4HR PRN NIFEdipine 60 MG PO Q12HR LABS GLU BED (05/27/21 00:24) GLUBED 124 H GLU BED (05/26/21 17:31) GLUBED 142 H GLU BED (05/26/21 13:18) GLUBED 180 H Signed in PatientKeeper by Alo Escobedo MD on 05/27 at 11:22 Electronically Signed by Alo Escobedo MD on 2 at 1122 ATTENTION *EDITS and/or ADDENDA must be made in Patient Ke eper for this note. * * Edits and ammendments created in [facility] are not visible * * in Patient Keeper or the legal medical record (HPF). * RPT #: [id number] END OF REPORT 2021-05-27 10:26:00-00:00 [facility] ([facility]) Med Order Sheet REPORT #: [id number] REPORT STATUS: Signed DATE: 05/27/21 TIME: 1026 PATIENT: CYNDI MONTAÑO UNIT #: [id number] ROOM #: P.0635 BED: 1 : 51 AGE: 70 SEX: F ATTEND: Kt Holly MD ADM AUTHOR: Garry Castañeda MD ATTENTION *EDITS and/or ADDENDA must be made in Patient [facility] for this note. * * Edits and ammendments created in [employer] are not visible * * in Patient Keeper or the legal medical record ([facility]). * Discharge Medication Reconciliation Discharge Meds Rec Completed. No Reconciled Orde rs.Electronically Signed in PatientKeeper by Garry Castañeda on 2 10:06 Electronically Signed by Garry Castañeda MD o n 05/27/21 at 1026 ATTENTION *EDITS and/or ADDENDA must be made in Patient [facility] for this note. * * Edits and ammendments created in [facility] are not visible * * in Patient Keeper or the legal medical record ([facility]). * [facility] #: [id number] END OF REPORT 2021-05-27 10:23:00-00:00 [facility] ([facility]) Med Order Sheet REPORT #: [id number] REPORT STATUS: Signed DATE: 05/27/21 TIME: 1023 PATIENT: CYNDI MONTAÑO UNIT #: [id number] ROOM #: [facility] BED: 1 : 51 AGE: 70 SEX: F ATTEND: Kt Holly MD ADM AUTHOR: Garry Castañeda MD ATTENTION *EDITS and/or ADDENDA must be made in Patient Ke eper for this note. * * Edits and ammendments created in [employer] are not visible * * in Patient Keeper or the legal medical record (HPF). * Discharge Medication Reconciliation DISCHARGE MEDICATION LIST ALPRAZolam Tab (Xanax Tab) Dose: 0.125 MG PO BID PRN anxiety Apixaban Tab (Eliquis Tab) Dose: 5 MG PO BID Escitalopram Tab (Lexapro Tab) Dose: 10 MG PO DAILY Flutica/Vilant 200/25 Inh (Breo Ellipta 200/25 I nh) Dose: 1 PUFF INH RTDAILY Furosemide Tab (Lasix Tab) Dose: 40MG PO QAM, Disp: 30 tablet, Refills: 0 Lactulose Oral Liquid (Enulose Oral Liquid) Dose: 30 ML PO DAILY methIMAzole tablet Dose: 10 MG PO DAILY Temazepam Cap (Restoril Cap) Dose: 22.5 MG PO BEDTIME traMADol Tab (Ultram Tab) Dose: 50 MG PO Q6H PRN acute pain Docusate Sodium Cap (Colace Cap) Dose: 100MG PO BID, Disp: 30 capsule, Refills: 0 Losartan Tab (Cozaar Tab) Dose: 50MG PO Q12HR, Disp: 60 tablet, Refills: 0 Metoprolol Tartrate Tab (Lopressor Tab) Dose: 100MG PO Q12HR, Disp: 60 tablet, Refills: 0 NIFEdipine Tab.XL (Procardia Tab.XL) Dose: 60MG PO Q12HR, Disp: 60 tablet, Refills: 0 Spironolactone Tab (Aldactone Tab) Dose: 50MG PO DAILY, Disp: 90 tablet, Refills: 0 STOPPED HOME MEDICATIONS Dc'd: Sotalol Tab (Betapace Tab) 80 MG PO BID STOPPED HOSPITAL MEDICATIONS Dc'd: Acetaminophen Tab (Tylenol Tab) 650MG PO Q 6H PRN pain 1-3/temp > 100.5/headacheDc'd: Dextrose 5%/Water (D 5W) 1000ML 30 MLS/HR IV Dc'd: Dextrose 50% 50 ml Syringe (D50W 50 ml Syringe) 25ML IV A SDIR PRN hypoglycemia protocolDc'd: Glucagon Inj (Glucagon Inj) 1MG IM ASDIR PRN hypoglycemia protocolDc'd: Insulin (Lispro) Inj (HumaLOG Inj) 0 UNITS SubQ Q6HRDc'd: Labetalol Inj (Trandate Inj) 20MG IV Q4HR PRN sb p >190 mmhgDc'd: Melatonin 3MG PO BEDTIME PRN sleepDc'd: Mirtazapine Tab (R emeron Tab) 15MG PO BEDTIMEDc'd: Nitroglycerin Patch 0.4mg/hr (Nitro Dur Patch 0.4mg/hr) 1PATCH Topical DAILYDc'd: Ondansetron Inj (Zofran Inj) 4MG IV Q4H PRN nausea and vomiting Electronically Signed by MD jojo Mitchell 05/27/21 at 1023 ATTENTION *EDITS and/or ADDENDA must be made in Patient [facility] for this note. * * Edits and ammendments created in [facility] are not visible * * in Patient Keeper or the legal medical record ([facility]). * RPT #: [id number] END OF REPORT 2021-05-27 10:00:00-00:00 [facility] ([facility]) Hospitalist D/C Summary REPORT #: [id number] REPORT STATUS: Signed DATE: 05/27/21 TIME: 1000 PATIENT: CYNDI MONTAÑO UNIT #: [id number] ROOM #: [id number] BED: 1 : 51 AGE: 70 SEX: F ATTEND: Kt Holly MD ADM AUTHOR: Garry Castañeda MD ATTENTION *EDITS and/or ADDENDA must be made in Patient [facility] for this note. * * Edits and ammendments created in [facility] are not visible * * in Patient Keeper or the legal medical record ([facility]). * -- PROBLEMS/PROCEDURES -- ADMISSION DATE: 05/17/21 ADMITTING DIAGNOSES: - Abdominal obesity and metabolic syndrome - Acute on chronic diastolic (congestive) heart failure - MAJOR (acute kidney injury) - HTN (hypertension) - Hypertensive heart disease with CHF - Hypokalemia - Major depression, recurrent - Metabolic alkalosis - Paroxysmal atrial fibrillation - Primary hypertension DISCHARGE DATE: 05/27/21 DISCHARGE DIAGNOSES: - Abdominal obesity and metabolic syndrome - Acute on chronic diastolic (congestive) heart failure - MAJOR (acute kidney injury) - HTN (hypertension) - Hypertensive heart disease with CHF - Hypokalemia - Major depression, recurrent - Metabolic alkalosis - Paroxysmal atrial fibrillation - Primary hypertension -- HOSPITAL COURSE -- HOSPITAL COURSE: with a chief complaint of ab dominal pain x1 week with no bowel movement x1 week and worsening abdominal distention/mass. Outside hospital presentation found patient hypertensive BP 235/144, tachycardic 121 , tachypneic 22, Temp 98.6 degrees Fahrenheit, a pain scale 7/10 CT abdomen and pelvics with large bowel obstruction at the junction of descending and si gmoid:: Bowel obstruction. Patient is transferred to [facility] acc epted by colorectal sx Dr Received Zofran morphine total of 8 mg and labet alol 10 at outside facility [employer]. Patient states she had bowel movement at e facility yesterday though remains mildly distended with mild discomfort bu t currently reports feeling better. Patient is a 70 y/o AA female who is adm itted to the medical floor. Psychiatry consult is called to evaluate her mood and anxie ty. Upon evaluation today, she reports that she is f eeling depressed and anxiety because her last year. She d enies feeling hopeless and helpless. She is not sleeping and eating well. S he denies any hallucinations and SI/HI. Met and discussed with her daughter a s well. Pt was admitted to ICU for BP control and surgic al evaluation The patient clinically improved. She is not show ing evidence of obstructive picture. Cardiology assessment to de termine if the patient can proceed with a consideration for surgical resect ion. controlled blood pressure. Chronic diuretic ther apy added to her regimen. She will need reassessment of her blood pressure con trol in about 7-10 days, hopefully via home health nursing. Hypokalemic alkalosis hypertensive emergency obstruction descending colon Dilated cardiomyopathy acute on chronic diastolic heart failure- impro willi Hypertensive heart disease LBBB Primary hypertension paroxysmal atrial fibrillation Decompensated dementia treated hyperthyroidism Plan Transitioned to nifedipine blood pressure contr ol No AF anti-arrhythmic therapy diuretic/katharine/arb Rx of mixed heart failure No systemic anticoagulation due to excess hemor rhage risk. The patient is stable relative to her gastrointe stinal status. No episodes of abdominal pain or fever. The patient is tolerating her oral intake well. Family has refused any surgical interventi on. Declined coloscopy discussed with daughter via telephone prior to d c -- DISCHARGE MEDICATIONS -- ALLERGIES: No Known Allergies (UNKNOWN - Allergy) DISCHARGE MEDICATIONS: Please refer to Discharge Medication list for a complete list of discharge medications ALPRAZolam Tab (Xanax Tab) 0.125 MG PO BID PRN a nxiety Apixaban Tab (Eliquis Tab) 5 MG PO BID Docusate Sodium Cap (Colace Cap) 100MG PO BID, D isp: 30 capsule, Refills: 0 Escitalopram Tab (Lexapro Tab) 10 MG PO DAILY Flutica/Vilant 200/25 Inh (Breo Ellipta 200/25 I nh) 1 PUFF INH RTDAILY Furosemide Tab (Lasix Tab) 40MG PO QAM, Disp: 30 tablet, Refills: 0 Lactulose Oral Liquid (Enulose Oral Liquid) 30 M L PO DAILY Losartan Tab (Cozaar Tab) 50MG PO Q12HR, Disp: 6 0 tablet, Refills: 0 methIMAzole tablet 10 MG PO DAILY Metoprolol Tartrate Tab (Lopressor Tab) 100MG PO Q12HR, Disp: 60 tablet, Refills: 0 NIFEdipine Tab.XL (Procardia Tab.XL) 60MG PO Q12 HR, Disp: 60 tablet, Refills: 0 Spironolactone Tab (Aldactone Tab) 50MG PO DAILY , Disp: 90 tablet, Refills: 0 Temazepam Cap (Restoril Cap) 22.5 MG PO BEDTIME traMADol Tab (Ultram Tab) 50 MG PO Q6H PRN acute pain -- DISCHARGE INSTRUCTIONS -- PK DISCHARGE ORDERS: DC Order w/Instructions (No Henrry) Details: Details: DC Order - No eCQM ADDTIONAL DISCHARGE INSTRUCTIONS: Emergency Instructions: The patient was instruct ed to present to the nearest Emergency Department or call 911 should their sy mptoms return or worsen.; -- OBJECTIVE -- VITALS (05/26 10:00 - 05/27 10:00): Temperature C: 36.8 (36.6 - 36.9) Temperature source: Oral Pulse Rate 79 (65 - 81) Respiratory rate: 16 (16 - 20) BP: 151/76 (138/69 - 160/82) -EXAM- OTHER: General: Normal appearing adult in bed comfortable HNT: normal head anatomy. normal sclerae, pupils are equal and normal. normal oral mucosae. Normal externa l ears and hair distribution. Neck: No lymphadenopathy or mass. airway midline with thyroid normal Chest: Chest wall is normal. Excursion is limite. Davin th sounds have bibasilar rales. Expiratory phase is normal. Wheezes are absent. Back: + kyphosis. No scoliosis. No tenderness. Cardiovascular: Rhythm is regular JVP 8cm HJR+ Pulses PMI Valve sounds The first sound is normal. The second sound is normally split Murmur There is no murmur Filling sound filling sound is not audible today Abdomen The abdomen is obese. epigastric, RUQ (70-80's choley), supraumb inf umb scars. There is no pa lpable organomegaly. the wall is soft. Bowel sounds ar e present. Extrem. There is no edema. Skin There is no rash Neuro Oriented to person and time. confused but unchanged Psych cooperative -- DATA -- LABS GLU BED (05/27/21 00:24) GLUBED 124 H GLU BED (05/26/21 17:31) GLUBED 142 H GLU BED (05/26/21 13:18) GLUBED 180 H TEST RESULTS US ABDOMEN COMPLETE (05/17/21 08:20) XR CHEST 1 V (05/22/21 07:45) XR ABDOMEN 1V (05/17/21 10:10) CT ABD amp;PELVIS W/CONT (05/17/21 11:35) XR ABDOMEN 1V (05/18/21 07:17) -- ATTESTATION -- TIME SPENT ON PATIENT CARE: - Discharge planning 45 minutes CARE ACTIVITIES / CARE COORDINATION: - I have reviewed the history and repeated the wheat elements - I have seen and examined this patient - I have reviewed the progress in the clinical course since the last examination Signed in PatientKeeper by Garry Castañeda MD on 05/27/21 at 10:06 Electronically Signed by Garry Castañeda MD o n 05/27/21 at 1006 ATTENTION *EDITS and/or ADDENDA must be made in Patient [facility] for this note. * * Edits and ammendments created in [employer] are not visible * * in Patient Keeper or the legal medical record ([facility]). * RPT #: [id number] END OF REPORT 2021-05-27 07:58:00-00:00 [facility] ([facility]) Cardiology Progress Notes REPORT #: [id number] REPORT STATUS: Signed DATE: 05/27/21 TIME: 075 PATIENT: CYNDI MONTAÑO UNIT #: [id number] ROOM #: P.0635 BED: 1 : 51 AGE: 70 SEX: F ATTEND: Kt Holly MD [facility] AUTHOR: Ashanti Barker ATTENTION *EDITS and/or ADDENDA must be made in Patient [facility] for this note. * * Edits and ammendments created in [facility] are not visible * * in Patient Keeper or the legal medical record ([facility]). * -- ASSESSMENT AND PLAN -- GENERAL ASSESSMENT: marginally controlled blood pressure. Chronic di uretic therapy added to her regimen, which will take abo ut one week to manifest its hypotensive effect. She will need reassessment of her blood pressure con trol in about 7-10 days, hopefully via home health nursing. She has some residual edema but claims to have w alked with no dyspnea. Dx obstruction descending colon- improved Dilated cardiomyopathy acute on chronic diastolic heart failure- improv ed Hypertensive heart disease LBBB Primary hypertension paroxysmal atrial fibrillation compensated dementia treated hyperthyroidism Plan allow diuretic time before additional titration No AF anti-arrhythmic therapy GDMT No systemic anticoagulation due to excess hemorr lenin risk. Ashanti Barker [phone] -- SUBJECTIVE -- CHIEF COMPLAINT: 70 woman who requires laparotomy has a history o f pulmonary hypertension. -REVIEW OF SYSTEMS- COMMENT: 4.6 She requires surgery for colonic s tricture and obstruction. She has chronic systolic heart failure due to H TN Heart disease and paroxysmal atrial fibrillation to b oot. Her current LVEF and PAP were measurements duri ng decompensation with emergency hypertension. Her function appears to be such that she will tolerate gener al anesthesia and colon resection with reasonable risk. She requires blood pressure control. I discussed her heart disease, management and t he risk of surgery with her daughter at the bedside today. Her risk was discussed with colorectal surgery this afternoon. I recommended additional time for bl ood pressure and heart failure control that will allow a hilario sonable, marginally increased risk of complication that is principally related to a recurrence of atrial fibrillation. 4.7 She is uncomfortable and back on NG suction . I transitioned her Rx to minoxidil due to ineffec tiveness of amlodipine and inability to use nifedipine. The effectiveness of all may be impaired by her curtis ited absorption. she needs to get Rx to the second p art of the duodenum and may not be doing so. I will clay nue to try through the day. The alternatives are to shift to oral clonidine, short acting nifedipine every 4 hour s and IV metoprolol. This option will be rather work int ensive for nursing. She required labetalol twice during the day and the clonidine transition is made along with a shift to max dose of minoxidil. The nifedipine consideration will wait for tomorrow and observation of at least two doses of minoxidil. Her heart failure is not yet compensated but co rrection of severe hyperkalemia in incomplete. I will need to have BNP and xray tomorrow to zigzag appliquer the rapidity of mary jane tional K correction and diuresis that is necessary. 4.8 The attempt to control her blood pressure w ith oral Rx is floundering badly. She has colonic o bstruction and after NG clamp or oral Rx, a large residua l, feculent material and almost certainly her medications c ome out through the NG suction. She also has hypokalemi c alkalosis, partly due to suction. In order to have her opt imally controlled for surgery, I need K correction, di uresis and blood pressure control. This is simply not pos sible without more intense care: IV Cardene/metoporolol, K co rrection, acetazolamide/furosemide at least once. I revie wed our predicament with Dr. Kent this morning an d she will hopefully move to ICU today. Once on IV Rx, we can stop oral, whose effectiveness is minimal thus far. 4.11 Tuesday afternoon, she was removed from NG suction and oral rx provided. It was very successful. s he has since, through her daughter, decided against hobbs carlyle. The patient remains oblivious to her surroundings, the time or to the extent and source of her illness. The p ositive note is that evidence of acute heart failure has com pletely resolved. her LVEF of 45% with a LBBB does not constitute genuine systolic LV failure. Minoxidil is a dif ficult medical regimen for outpatient management and r equires close follow up. I anticipate this to be an un due burden on her and her family. Therefore, I will transitio n her to nifedipine, maintaining the beta negra/spiron olactone/ARB combination. She is transitioned also to daily diuretic whose maintenance should not be so difficult no w that NG suction is not contributing to hypokalemic tarah losis. -- OBJECTIVE -- VITALS (05/26 07:58 - 05/27 07:58): Temperature C: 36.8 (36.6 - 36.9) Temperature source: Oral Pulse Rate 65 (65 - 81) Respiratory rate: 16 (16 - 20) BP: 138/77 (138/69 - 160/82) -EXAM- OTHER: General: Normal appearing adult in bed comfortable HNT: normal head anatomy. normal sclerae, pupils are equal and normal. normal oral mucosae. Normal externa l ears and hair distribution. Neck: No lymphadenopathy or mass. airway midline with thyroid normal Chest: Chest wall is normal. Excursion is limite. Gertrude th sounds have bibasilar rales. Expiratory phase is normal. Wheezes are absent. Back: + kyphosis. No scoliosis. No tenderness. Cardiovascular: Rhythm is regular JVP 8cm HJR+ Pulses PMI Valve sounds The first sound is normal. The second sound is normally split Murmur There is no murmur Filling sound filling sound is not audible today Abdomen The abdomen is obese. epigastric, RUQ (70-80's choley), supraumb inf umb scars. There is no pa lpable organomegaly. the wall is soft. Bowel sounds ar e present. Extrem. There is no edema. Skin There is no rash Neuro Oriented to person and time. confused but unchanged Psych cooperative -- DATA -- MEDICATIONS LOSARTAN POTASSIUM 50 MG PO Q12HR traMADol HCL 50 MG PO Q8H PRN FUROSEMIDE 40 MG PO QAM NITROGLYCERIN 1 PATCH TOPICAL DAILY ONDANSETRON HCL/PF 4 MG IV Q4H PRN ESCITALOPRAM 10 MG PO DAILY MIRTAZAPINE 15 MG PO BEDTIME MELATONIN 3 MG PO BEDTIME PRN INSULIN LISPRO 0 UNITS SUBQ Q6HR METOPROLOL TARTRATE 100 MG PO Q12HR ALPRAZolam 0.5 MG PO Q6H PRN ACETAMINOPHEN 650 MG PO Q6H PRN DEXTROSE 50%-WATER 25 ML IV ASDIR (PRN) DEXTROSE 5%-WATER 1000 ML IV .Q24H DOCUSATE SODIUM 100 MG PO BID methIMAzole 10 MG PO DAILY FLUTICASONE/VILANTEROL 1 PUFF INH RTDAILY GLUCAGON 1 MG IM ASDIR (PRN) SPIRONOLACTONE 50 MG PO DAILY LABETALOL HCL 20 MG IV Q4HR PRN NIFEdipine 60 MG PO Q12HR LABS GLU BED (05/27/21 00:24) GLUBED 124 H GLU BED (05/26/21 17:31) GLUBED 142 H GLU BED (05/26/21 13:18) GLUBED 180 H ADDITIONAL COMMENTS: I have reviewed telemetry, laboratory testing an d imaging studies. Synthesis and notation is included in the final assessment . Signed in PatientKeeper by Ashanti Barker MD on 05/27/21 at 08:01 at 0801 ATTENTION *EDITS and/or ADDENDA must be made in Patient Ke eper for this note. * * Edits and ammendments created in [employer] are not visible * * in Patient Keeper or the legal medical record (HPF). * RPT #: [id number] END OF REPORT 2021-05-27 07:03:00-00:00 [id number] [facility] [address] [place] [address] PATIENT NAME: CYNDI MONTAÑO ADMIT DATE: 05/17/21 ACCOUNT NO: [id number] ROOM NO: .[id number] AGE: 70 REPORT TYPE: PROGRESS NOTE SEX: F ADMITTING PHYSICIAN:Kt Holly MD ATTENDING PHYSICIAN:Kt Holly MD DATE: 05/27/2021 GASTROENTEROLOGY PROGRESS NOTE PROBLEMS: Sigmoid stricture. SUBJECTIVE: The patient indicates that s he feels fine. She is not experiencing any abdominal pain. There is no nausea or vomiti ng. OBJECTIVE: VITAL SIGNS: Temperature is 36.6, pulse of 68, r espirations of 16, and blood pressure 159/79. GENERAL: The patient is alert and in no acute di stress. GASTROINTESTINAL: Abdomen is soft and nontender. No guarding. LABORATORY STUDIES: Glucose 124. ASSESSMENT: The patient is stable relative to he r gastrointestinal status. No episodes of abdominal pain or fever. The patient is tolerating her oral intake well. Family has refused any surgical interventi on. PLAN: DIAGNOSTIC: None further at this time; may consi asia attempting complete colonoscopy if family is receptive. THERAPEUTIC: Continue present regimen. THE PATIENT EDUCATION: The patient is informed o f the above. Dictated By: Antony Milner Jr, MD WT: PN:PKAYLYN/VIRIDIANA/DEBI Conf#: [id number]/DID#: [id number] Authenticated by Antony Milner MD On 07:08:20 AM at 0708 PATIENT NAME: CYNDI MONTAÑO 665 2021-05-26 12:09:00-00:00 [facility] ([facility]) Hospitalist Progress Note REPORT #: [id number] REPORT STATUS: Signed DATE: 05/26/21 TIME: 1209 PATIENT: CYNDI MONTAÑO UNIT #: [id number] ROOM #: P.0635 BED: 1 : 51 AGE: 70 SEX: F ATTEND: Kt Holly MD ADM AUTHOR: Garry Castañeda MD ATTENTION *EDITS and/or ADDENDA must be made in Patient Ke eper for this note. * * Edits and ammendments created in [facility] are not visible * * in Patient Keeper or the legal medical record (HPF). * -- ASSESSMENT AND PLAN -- GENERAL ASSESSMENT: Large Colon Bowel obstruction with strictures -+Abd pain, no BM x 1 week -Colon and rectal surgery consult Dr Edgcomb, Ma rk -Abd US -prn morphine and Zofran for pain and nausea con trol NGT in place medical management at this time continue to follow drainage and XR obstruction descending colon Dilated cardiomyopathy acute on chronic diastolic heart failure- improv ed Hypertensive heart disease LBBB Primary hypertension with hypertensive emergency paroxysmal atrial fibrillation Delirium vs decompensated dementia treated hyperthyroidism Plan BP control K correction and begin spironolactone amiodarone AF prophylaxis F/U echo and PAP measurement tuesday surgery delayed to tuesday No anticoagulation due to surgery necessity Constipation -MiraLAX twice daily as needed -Colace -GI following DM 2 -A1c -Accu-Chek with SSI HTN -Uncontrolled -236/144 per OSH -Improved with labetalol -prn labetalol clonidine patch 0.3 Thyroid disorder -TSH -Home medication Anxiety disorder -Continue home regimen DVT /GI ppx SCD/famotidine full code Physician: Pending clinical course -- SUBJECTIVE -- HPI: Discussed with pt and daughter via phone possibl e colonoscopy - they will discuss amongst various members of the family bp 150/80 Continue current therapy Pt is tolerating regular cardiac diet and notes BM x 2 -- OBJECTIVE -- VITALS (05/25 12:10 - 05/26 12:10): Temperature C: 36.6 (36.6 - 36.9) Temperature source: Oral Pulse Rate 67 (65 - 71) Respiratory rate: 19 (13 - 20) BP: 160/80 (128/69 - 165/83) -EXAM- LUNGS: Clear bilaterally with normal respiratory effort. HEART: Regular rate and rhythm, normal S1, S2, n o murmurs, no rubs, no gallops, no clicks. ABDOMEN: Large pannus NT/ND. Decreased BS EXTREMITIES: no edema -- DATA -- MEDICATIONS LOSARTAN POTASSIUM 50 MG PO Q12HR NITROGLYCERIN 1 PATCH TOPICAL DAILY ONDANSETRON HCL/PF 4 MG IV Q4H PRN ESCITALOPRAM 10 MG PO DAILY MIRTAZAPINE 15 MG PO BEDTIME MELATONIN 3 MG PO BEDTIME PRN INSULIN LISPRO 0 UNITS SUBQ Q6HR METOPROLOL TARTRATE 100 MG PO Q12HR ALPRAZolam 0.5 MG PO Q6H PRN ACETAMINOPHEN 650 MG PO Q6H PRN DEXTROSE 50%-WATER 25 ML IV ASDIR (PRN) DEXTROSE 5%-WATER 1000 ML IV .Q24H DOCUSATE SODIUM 100 MG PO BID methIMAzole 10 MG PO DAILY FLUTICASONE/VILANTEROL 1 PUFF INH RTDAILY FUROSEMIDE 20 MG PO QAM GLUCAGON 1 MG IM ASDIR (PRN) SPIRONOLACTONE 25 MG PO DAILY LABETALOL HCL 20 MG IV Q4HR PRN NIFEdipine 60 MG PO Q12HR LABS GLU BED (05/26/21 05:54) GLUBED 123 H GLU BED (05/26/21 00:25) GLUBED 104 -- ATTESTATION -- TIME SPENT ON PATIENT CARE: - Direct 15 minutes - Coordination of Care 15 minutes CARE ACTIVITIES / CARE COORDINATION: - I have reviewed the history and repeated the wheat elements - I have seen and examined this patient - I have reviewed the progress in the clinical course since the last examination Signed in PatientKeeper by Garry Castañeda MD on 05/26/21 at 12:13 Electronically Signed by Garry Castañeda MD o n 05/26/21 at 1213 ATTENTION *EDITS and/or ADDENDA must be made in Patient Ke eper for this note. * * Edits and ammendments created in [facility] are not visible * * in Patient Keeper or the legal medical record (HPF). * RPT #: [id number] END OF REPORT 2021-05-26 11:32:00-00:00 [facility] ([facility]) Nephrology Progress Note REPORT #: [id number] REPORT STATUS: Signed DATE: 05/26/21 TIME: 1132 PATIENT: CYNDI MONTAÑO UNIT #: [id number] ROOM #: P.0635 BED: 1 : 51 AGE: 70 SEX: F ATTEND: Kt Holly MD ADM AUTHOR: Alo Escobedo MD ATTENTION *EDITS and/or ADDENDA must be made in Patient Ke eper for this note. * * Edits and ammendments created in [employer] are not visible * * in Patient Keeper or the legal medical record (HPF). * -- ASSESSMENT AND PLAN -- PROBLEMS: 1: MAJOR (acute kidney injury) A/P: Due to volume depletion and normali zed BP. BUN/Cr is back to normal range this AM. Stable 2: Hypokalemia A/P: Stable 3: Metabolic alkalosis A/P: Probably due to NG suction and volume contr action. 4: HTN (hypertension) A/P: Continue with Nifedipine 60 mg BID, Metoprolol 100 mg BID and Losartan 50 mg BID -- SUBJECTIVE -- PATIENT NARRATIVE: She is doing OK this AM. No abdominal pain -- OBJECTIVE -- VITALS (05/25 11:32 - 05/26 11:32): Temperature C: 36.6 (36.6 - 36.9) Temperature source: Oral Pulse Rate 67 (65 - 71) Respiratory rate: 19 (13 - 20) BP: 160/80 (128/69 - 165/83) -EXAM- LUNGS: Clear bilaterally with normal respiratory effort. HEART: Regular rate and rhythm, normal S1, S2, n o murmurs, no rubs, no gallops, no clicks. ABDOMEN: Large pannus NT/ND. Decreased BS EXTREMITIES: no edema -- DATA -- MEDICATIONS LOSARTAN POTASSIUM 50 MG PO Q12HR NITROGLYCERIN 1 PATCH TOPICAL DAILY ONDANSETRON HCL/PF 4 MG IV Q4H PRN ESCITALOPRAM 10 MG PO DAILY MIRTAZAPINE 15 MG PO BEDTIME MELATONIN 3 MG PO BEDTIME PRN INSULIN LISPRO 0 UNITS SUBQ Q6HR METOPROLOL TARTRATE 100 MG PO Q12HR ALPRAZolam 0.5 MG PO Q6H PRN ACETAMINOPHEN 650 MG PO Q6H PRN DEXTROSE 50%-WATER 25 ML IV ASDIR (PRN) DEXTROSE 5%-WATER 1000 ML IV .Q24H DOCUSATE SODIUM 100 MG PO BID methIMAzole 10 MG PO DAILY FLUTICASONE/VILANTEROL 1 PUFF INH RTDAILY FUROSEMIDE 20 MG PO QAM GLUCAGON 1 MG IM ASDIR (PRN) SPIRONOLACTONE 25 MG PO DAILY LABETALOL HCL 20 MG IV Q4HR PRN NIFEdipine 60 MG PO Q12HR LABS GLU BED (05/26/21 05:54) GLUBED 123 H GLU BED (05/26/21 00:25) GLUBED 104 Signed in PatientKeeper by Alo Escobedo MD on 05/26 at 11:33 Electronically Signed by Alo Escobedo MD on 2 at 1133 ATTENTION *EDITS and/or ADDENDA must be made in Patient Ke eper for this note. * * Edits and ammendments created in [facility] are not visible * * in Patient Keeper or the legal medical record ([facility]). * RPT #: [id number] END OF REPORT 2021-05-26 08:43:00-00:00 [facility] ([facility]) Cardiology Progress Notes REPORT #: [id number] REPORT STATUS: Signed DATE: 05/26/21 TIME: 842 PATIENT: CYNDI MONTAÑO UNIT #: [id number] ROOM #: P[facility] BED: 1 : 51 AGE: 70 SEX: F ATTEND: Kt Holly MD ADM AUTHOR: Ashanti Barker MD ATTENTION *EDITS and/or ADDENDA must be made in Patient Ke eper for this note. * * Edits and ammendments created in [employer] are not visible * * in Patient Keeper or the legal medical record (HPF). * -- ASSESSMENT AND PLAN -- GENERAL ASSESSMENT: controlled blood pressure. Chronic diuretic ther apy added to her regimen. She will need reassessment of her blood pressure con trol in about 7-10 days, hopefully via home health nursing. Dx Hypokalemic alkalosis hypertensive emergency obstruction descending colon Dilated cardiomyopathy acute on chronic diastolic heart failure- improv ed Hypertensive heart disease LBBB Primary hypertension paroxysmal atrial fibrillation Decompensated dementia treated hyperthyroidism Plan Transitioned to nifedipine blood pressure contro l No AF anti-arrhythmic therapy diuretic/katharine/arb Rx of mixed heart failure No systemic anticoagulation due to excess hemorr lenin risk. Ashanti James Michael [phone] -- SUBJECTIVE -- CHIEF COMPLAINT: 70 woman who requires laparotomy has a history o f pulmonary hypertension. -REVIEW OF SYSTEMS- COMMENT: 4.6 She requires surgery for colonic st ricture and obstruction. She has chronic systolic heart failure due to H TN Heart disease and paroxysmal atrial fibrillation to b oot. Her current LVEF and PAP were measurements duri ng decompensation with emergency hypertension. Her function appears to be such that she will tolerate gener al anesthesia and colon resection with reasonable risk. She requires blood pressure control. I discussed her heart disease, management and t he risk of surgery with her daughter at the bedside today. Her risk was discussed with colorectal surgery this afternoon. I recommended additional time for bl ood pressure and heart failure control that will allow a hilario sonable, marginally increased risk of complication that is principally related to a recurrence of atrial fibrillation. 4.7 She is uncomfortable and back on NG suction . I transitioned her Rx to minoxidil due to ineffec tiveness of amlodipine and inability to use nifedipine. The effectiveness of all may be impaired by her curtis ited absorption. she needs to get Rx to the second p art of the duodenum and may not be doing so. I will contin ue to try through the day. The alternatives are to shift to oral clonidine, short acting nifedipine every 4 marissa rs and IV metoprolol. This option will be rather work int ensive for nursing. She required labetalol twice during the day an d the clonidine transition is made along with a shift to max dose of minoxidil. The nifedipine consideration will wait for tomorrow and observation of at least two doses of minoxidil. Her heart failure is not yet compensated but co rrection of severe hyperkalemia in incomplete. I will need to have BNP and xray tomorrow to zigzag appliquer the rapidity of mary jane tional K correction and diuresis that is necessary. 4.8 The attempt to control her blood pressure w ith oral Rx is floundering badly. She has colonic o bstruction and after NG clamp or oral Rx, a large residual , feculent material and almost certainly her medications c ome out through the NG suction. She also has hypokalem ic alkalosis, partly due to suction. In order to have her opt imally controlled for surgery, I need K correction, di uresis and blood pressure control. This is simply not poss ible without more intense care: IV Cardene/metoporolol, K co rrection, acetazolamide/furosemide at least once. I revi ewed our predicament with Dr. Kent this morning an d she will hopefully move to ICU today. Once on IV Rx, we can stop oral, whose effectiveness is minimal thus far. 4.11 Tuesday afternoon, she was removed from NG suction and oral rx provided. It was very successful. she has since, through her daughter, decided against hobbs carlyle. The patient remains oblivious to her surroundings, the time or to the extent and source of her illness. The po sitive note is that evidence of acute heart failure has com pletely resolved. her LVEF of 45% with a LBBB does not constitute genuine systolic LV failure. Minoxidil is a dif ficult medical regimen for outpatient management and r equires close follow up. I anticipate this to be an und ue burden on her and her family. Therefore, I will transitio n her to nifedipine, maintaining the beta negra/katharine nolactone/ARB combination. She is transitioned also to daily diuretic whose maintenance should not be so difficult no w that NG suction is not contributing to hypokalemic tarah losis. -- OBJECTIVE -- VITALS (05/25 08:43 - 05/26 08:43): Temperature C: 36.6 (36.6 - 36.9) Temperature source: Oral Pulse Rate 66 (65 - 71) Respiratory rate: 20 (13 - 20) BP: 159/79 (114/69 - 165/83) -EXAM- OTHER: General: Normal appearing adult in bed comfortable HNT: normal head anatomy. normal sclerae, pupils are equal and normal. normal oral mucosae. Normal externa l ears and hair distribution. Neck: No lymphadenopathy or mass. airway midline with thyroid normal Chest: Chest wall is normal. Excursion is limite. Gertrude th sounds have bibasilar rales. Expiratory phase is normal. Wheezes are absent. Back: + kyphosis. No scoliosis. No tenderness. Cardiovascular: Rhythm is regular JVP 8cm HJR+ Pulses PMI Valve sounds The first sound is normal. The second sound is normally split Murmur There is no murmur Filling sound filling sound is not audible today Abdomen The abdomen is obese. epigastric, RUQ (70-80's choley), supraumb inf umb scars. There is no pa lpable organomegaly. the wall is soft. Bowel sounds ar e present. Extrem. There is no edema. Skin There is no rash Neuro Oriented to person and time. confused but unchanged Psych cooperative -- DATA -- MEDICATIONS LOSARTAN POTASSIUM 50 MG PO Q12HR NITROGLYCERIN 1 PATCH TOPICAL DAILY ONDANSETRON HCL/PF 4 MG IV Q4H PRN ESCITALOPRAM 10 MG PO DAILY MIRTAZAPINE 15 MG PO BEDTIME MELATONIN 3 MG PO BEDTIME PRN INSULIN LISPRO 0 UNITS SUBQ Q6HR METOPROLOL TARTRATE 100 MG PO Q12HR ALPRAZolam 0.5 MG PO Q6H PRN ACETAMINOPHEN 650 MG PO Q6H PRN DEXTROSE 50%-WATER 25 ML IV ASDIR (PRN) DEXTROSE 5%-WATER 1000 ML IV .Q24H DOCUSATE SODIUM 100 MG PO BID methIMAzole 10 MG PO DAILY FLUTICASONE/VILANTEROL 1 PUFF INH RTDAILY FUROSEMIDE 20 MG PO QAM GLUCAGON 1 MG IM ASDIR (PRN) SPIRONOLACTONE 25 MG PO DAILY LABETALOL HCL 20 MG IV Q4HR PRN NIFEdipine 60 MG PO Q12HR LABS GLU BED (05/26/21 05:54) GLUBED 123 H GLU BED (05/26/21 00:25) GLUBED 104 ADDITIONAL COMMENTS: I have reviewed telemetry, laboratory testing an d imaging studies. Synthesis and notation is included in the final assessment . Signed in PatientKeeper by Ashanti Barker MD on 05/26/21 at 08:45 at 0845 ATTENTION *EDITS and/or ADDENDA must be made in Patient Ke eper for this note. * * Edits and ammendments created in [facility] are not visible * * in Patient Keeper or the legal medical record (HPF). * [facility] #: [id number] END OF REPORT 2021-05-26 06:47:00-00:00 [id number] [facility] [address] [place] [address] PATIENT NAME: CYNDI MONTAÑO ADMIT DATE: 05/17/21 ACCOUNT NO: [id number] ROOM NO: P[facility] AGE: 70 REPORT TYPE: PROGRESS NOTE SEX: F ADMITTING PHYSICIAN:Kt Holly MD ATTENDING PHYSICIAN:Kt Holly MD DATE: 05/26/2021 GASTROENTEROLOGY PROGRESS NOTE PROBLEMS: Stricture in the sigmoid colon area. SUBJECTIVE: The patient indicates that s he feels fine. She is not experiencing any abdominal pain. There is no nausea or vomiti ng. OBJECTIVE: VITAL SIGNS: Stable. GENERAL: The patient is alert, responsive, and i n no distress. GASTROINTESTINAL: Abdomen is soft and nontender. No guarding. LABORATORY STUDIES: Potassium is 3.6. H and H ar e 13.0 and 41.2. ASSESSMENT: The patient's family refuses any mukesh gical intervention. The patient's clinical status is stable. Somewhat un certain whether or not they would want to pursue complete colonoscopy to det ermine if there is any significant pathology in the sigmoid colon. PLAN: DIAGNOSTIC: We would consider colonoscopy pendin g family's desire. THERAPEUTIC: Continue present regimen. THE PATIENT EDUCATION: None required. Dictated By: Antony Milner Jr, MD WT: PN:LEONORA/VIRIDIANA/DEBI Conf#: [id number]/DID#: [id number] Authenticated by Antony Milner MD On 07:08:19 AM at 0708 PATIENT NAME: CYNDI MONTAÑO 665 2021-05-25 17:43:00-00:00 [facility] ([facility]) Behav. Health Progress Note REPORT #: [id number] REPORT STATUS: Signed DATE: 05/25/21 TIME: 1742 PATIENT: CYNDI MONTAÑO UNIT #: [id number] ROOM #: P.0635 BED: 1 : 51 AGE: 70 SEX: F ATTEND: Kt Holly MD ADM AUTHOR: Danielle Castro MD ATTENTION *EDITS and/or ADDENDA must be made in Patient Ke eper for this note. * * Edits and ammendments created in [employer] are not visible * * in Patient Keeper or the legal medical record (HPF). * -- ASSESSMENT AND PLAN -- PROBLEMS: 1: Major depression, recurrent A/P: continue lexapro continue remeron continue prn xanax supportive therapy -- HISTORY -- INTERVAL HISTORY: Patient evaluated and events noted. Upon evaluation today, she is less depre ssed and less anxious. She is sleeping and eating fair. She denies any hallucinations a nd SI/HI. She is taking her meds and denies any side effects. Discussed with her daughter. CHIEF COMPLAINT: Mood and anxiety -- OBJECTIVE -- VITALS (05/24 17:44 - 05/25 17:44): Temperature C: 36.9 (36.6 - 36.9) Temperature source: Oral Pulse Rate 65 (65 - 74) Respiratory rate: 13 (13 - 20) BP: 140/69 (114/69 - 168/77) I/Os (05/24 07:00 - 05/25 07:00): Net 840.00 Intake 840.00 -- MSE/NEURO EXAM -- -MENTAL STATUS EXAM- APPEARANCE: fair grooming MOOD: less depressed and less anxious AFFECT: congruent THOUGHT PROCESSES: concrete THOUGHT CONTENT: normal SI/HI: denies both HALLUCINATIONS: denies ALERTNESS: alert ORIENTATION: situation STRENGTHS: social support DISABILITIES: medical health issues -- DATA -- MEDICATIONS NITROGLYCERIN 1 PATCH TOPICAL DAILY ONDANSETRON HCL/PF 4 MG IV Q4H PRN ESCITALOPRAM 10 MG PO DAILY ACETAMINOPHEN 650 MG PO Q6H PRN methIMAzole 10 MG PO DAILY FLUTICASONE/VILANTEROL 1 PUFF INH RTDAILY GLUCAGON 1 MG IM ASDIR (PRN) SPIRONOLACTONE 25 MG PO DAILY LOSARTAN POTASSIUM 50 MG PO Q12HR MIRTAZAPINE 15 MG PO BEDTIME MELATONIN 3 MG PO BEDTIME PRN INSULIN LISPRO 0 UNITS SUBQ Q6HR METOPROLOL TARTRATE 100 MG PO Q12HR ALPRAZolam 0.5 MG PO Q6H PRN DEXTROSE 50%-WATER 25 ML IV ASDIR (PRN) DEXTROSE 5%-WATER 1000 ML IV .Q24H DOCUSATE SODIUM 100 MG PO BID FUROSEMIDE 20 MG PO QAM LABETALOL HCL 20 MG IV Q4HR PRN NIFEdipine 60 MG PO Q12HR LABS MAG (05/25/21 07:09) MAGNESIUM 1.8 PHOS (05/25/21 07:09) PHOSPHOROUS 2.9 CBC W/AUTO DIFF (05/25/21 07:09) WHITE BLOOD CELL 6.0 RED BLOOD CELL 5.08 HEMOGLOBIN 13.0 HEMATOCRIT 41.2 MEAN CELL VOLUME 81.1 MEAN CELL HGB 25.6 L MEAN CELL HGB CONCENTRATION 31.6 L RED CELL DISTRIBUTION WIDTH 15.4 PLATELET COUNT 414 MEAN PLATELET VOLUME 9.7 NEUTROPHIL % 67.2 LYMPHOCYTE % 18.3 L MONOCYTE % 9.1 EOSINOPHIL % 4.2 BASOPHIL % 0.5 NEUTROPHIL # 4.05 LYMPHOCYTE # 1.10 MONOCYTE # 0.55 EOSINOPHIL # 0.25 BASOPHIL # 0.03 BASIC METABOLIC PANEL (05/25/21 07:09) SODIUM 140 POTASSIUM 3.6 CHLORIDE 97L L CARBON DIOXIDE 31 GLUCOSE 116H H BLOOD UREA NITROGEN 16 GLOMERULAR FILTRATION RATE >=60 max estimate CREATININE 0.90 CALCIUM 8.7 BNP (05/25/21 07:09) B-TYPE NATRIURETIC PEPTIDE 793 H GLU BED (05/25/21 07:04) GLUBED 115 H GLU BED (05/25/21 00:34) GLUBED 126 H Signed in PatientKeeper by Danielle Castro MD 05/25/21 at 17:47 at 1747 ATTENTION *EDITS and/or ADDENDA must be made in Patient [facility] for this note. * * Edits and ammendments created in [employer] are not visible * * in Patient Keeper or the legal medical record ([facility]). * RPT #: [id number] END OF REPORT 2021-05-25 16:28:00-00:00 [facility] ([facility]) Surgical Post Op Progress Note REPORT #: [id number] REPORT STATUS: Signed DATE: 05/25/21 TIME: 1628 PATIENT: CYNDI MONTAÑO UNIT #: [id number] ROOM #: P.0635 BED: 1 : 51 AGE: 70 SEX: F ATTEND: Kt Holly MD ADM AUTHOR: Lorenzo Monaco DO ATTENTION *EDITS and/or ADDENDA must be made in Patient [facility] for this note. * * Edits and ammendments created in [employer] are not visible * * in Patient Keeper or the legal medical record ([facility]). * -- ASSESSMENT AND PLAN -- GENERAL ASSESSMENT: 70 yo F with a pmhx of DM, C onstipation, HTN, CHF, Hypothyroid, and anxiety who presented with findings of a partial large bowel obstruction 2/2 sigmoid structure obstruction with strictures - Has been undergoing medical optimization for s urgical intervention today. - On diet. Having some bowel function. - Family and patient currently refusing surgery at this time. I had spoken to Umair and the patients cousin last week judith wolf the surgical plan for possible resection with or without colostomy vs decompressive colostomy. Over the weekend the family and p atient have decided to refuse surgery at this time. I discussed with the daughter and the patient at length about the risks associated with not doing surgery. I discussed w ith her and the patient that this will likely recur and could lead to a perforation. I expressed that doing surgery for this condition in the emerge nt setting significantly increases the risk for complications including especiall y in the setting of her multiple comorbidities. I al so clearly stated that not performing any procedure that would allow for decompression of the colon is against my medical advice and the current standards of care. The daughter states that she has spoken to her mothers GI doctor who is on board with this plan at this time. Despite fully addressing the risks associated wi th not performing surgery at this time the patient and her daughter have confirmed that they do not want surgery. I made it clear that my offer for surgery was for today/during this stay and if she returns to the hospital with a recurrence of her large bowel obstruction secondary to the refusal of medical advice with the full knowledge of the risks that she would require evaluation from another s urgical service. The patient and daughter expressed understanding of the abov e recommendations. Colorectal surgery will sign off. -- SUBJECTIVE -- HOSPITAL DAY: 9 HPI: no acute events. afebrile. Denies any n/v. +bm a nd flatus. -- OBJECTIVE -- VITALS (05/24 16:28 - 05/25 16:28): Temperature C: 36.7 (36.6 - 36.9) Temperature source: Oral Pulse Rate 65 (65 - 74) Respiratory rate: 15 (15 - 20) BP: 114/74 (114/74 - 168/77) I/Os (05/24 07:00 - 05/25 07:00): Net 840.00 Intake 840.00 -EXAM- HEAD: Normocephalic, atraumatic. LUNGS: Clear bilaterally with normal respiratory effort. HEART: Regular rate and rhythm, normal S1, S2, n o murmurs, no rubs, no gallops, no clicks. ABDOMEN: Large pannus NT/ND. Decreased BS MUSCULOSKELETAL: no deformities EXTREMITIES: no edema NEUROLOGICAL: A Ox3 SKIN: warm dry -- DATA -- MEDICATIONS NITROGLYCERIN 1 PATCH TOPICAL DAILY ONDANSETRON HCL/PF 4 MG IV Q4H PRN ESCITALOPRAM 10 MG PO DAILY ACETAMINOPHEN 650 MG PO Q6H PRN methIMAzole 10 MG PO DAILY FLUTICASONE/VILANTEROL 1 PUFF INH RTDAILY GLUCAGON 1 MG IM ASDIR (PRN) SPIRONOLACTONE 25 MG PO DAILY LOSARTAN POTASSIUM 50 MG PO Q12HR MIRTAZAPINE 15 MG PO BEDTIME MELATONIN 3 MG PO BEDTIME PRN INSULIN LISPRO 0 UNITS SUBQ Q6HR METOPROLOL TARTRATE 100 MG PO Q12HR ALPRAZolam 0.5 MG PO Q6H PRN DEXTROSE 50%-WATER 25 ML IV ASDIR (PRN) DEXTROSE 5%-WATER 1000 ML IV .Q24H DOCUSATE SODIUM 100 MG PO BID FUROSEMIDE 20 MG PO QAM LABETALOL HCL 20 MG IV Q4HR PRN NIFEdipine 60 MG PO Q12HR LABS MAG (05/25/21 07:09) MAGNESIUM 1.8 PHOS (05/25/21 07:09) PHOSPHOROUS 2.9 CBC W/AUTO DIFF (05/25/21 07:09) WHITE BLOOD CELL 6.0 RED BLOOD CELL 5.08 HEMOGLOBIN 13.0 HEMATOCRIT 41.2 MEAN CELL VOLUME 81.1 MEAN CELL HGB 25.6 L MEAN CELL HGB CONCENTRATION 31.6 L RED CELL DISTRIBUTION WIDTH 15.4 PLATELET COUNT 414 MEAN PLATELET VOLUME 9.7 NEUTROPHIL % 67.2 LYMPHOCYTE % 18.3 L MONOCYTE % 9.1 EOSINOPHIL % 4.2 BASOPHIL % 0.5 NEUTROPHIL # 4.05 LYMPHOCYTE # 1.10 MONOCYTE # 0.55 EOSINOPHIL # 0.25 BASOPHIL # 0.03 BASIC METABOLIC PANEL (05/25/21 07:09) SODIUM 140 POTASSIUM 3.6 CHLORIDE 97L L CARBON DIOXIDE 31 GLUCOSE 116H H BLOOD UREA NITROGEN 16 GLOMERULAR FILTRATION RATE >=60 max estimate CREATININE 0.90 CALCIUM 8.7 BNP (05/25/21 07:09) B-TYPE NATRIURETIC PEPTIDE 793 H GLU BED (05/25/21 07:04) GLUBED 115 H GLU BED (05/25/21 00:34) GLUBED 126 H Signed in PatientKeeper by Lorenzo Monaco DO on 0 05/25/21 at 16:50 Electronically Signed by Lorenzo Monaco, DO on 01/05 at 1650 ATTENTION *EDITS and/or ADDENDA must be made in Patient Ke ep for this note. * * Edits and ammendments created in [facility] are not visible * * in Patient Keeper or the legal medical record (HPF). * RPT #: [id number] END OF REPORT 2021-05-25 13:35:00-00:00 [facility] ([facility]) Family Medicine Progress Note REPORT #: [id number] REPORT STATUS: Signed DATE: 05/25/21 TIME: 1335 PATIENT: CYNDI MONTAÑO UNIT #: [id number] ROOM #: [id number] BED: 1 : 51 AGE: 70 SEX: F ATTEND: Kt Holly MD ADM AUTHOR: Margi Holly MD ATTENTION *EDITS and/or ADDENDA must be made in Patient Ke ep for this note. * * Edits and ammendments created in [employer] are not visible * * in Patient Keeper or the legal medical record (HPF). * -- ASSESSMENT AND PLAN -- HOSPITAL COURSE TO DATE: The patient is a 70-year-old female with a past medical history of anxiety, DM 2, HTN, migraines, thyroid problem, and TIA who presents originally to outside hospital with a chief complaint of abdominal kenny n x1 week with no bowel movement x1 week and worsening abdominal distent ion/mass. Outside hospital presentation found patient h ypertensive BP 235/144, tachycardic 121, tachypneic 22, Temp 98.6 degrees Fahren heit, a pain scale 7/10 CT abdomen and pelvics with large bowel obstruction at the junction of desce nding and sigmoid:: Bowel obstruction. 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 Patient states she had bowel movement at th e facility yesterday though remains mildly distended with mild discomfort bu t currently reports feeling better. 05/24/2021 She was noted to have elevated BUN/Cr as well as persistent hypokalemia therefore nephrology consult. 05/25/21 Patient is doing well on a liquid diet. New diet plan is to progress to soft diet and then hard diet, if she does well with t hose, she will be ready for discharge. possible discharge tommorrow. GENERAL ASSESSMENT: Large Colon Bowel obstruction with strictures -+Abd pain, no BM x 1 week -Colon and rectal surgery consult Dr Monaco, Gloria rk -Abd US -prn morphine and Zofran for pain and nausea con trol NGT in place medical management at this time continue to follow drainage and XR obstruction descending colon Dilated cardiomyopathy acute on chronic diastolic heart failure- improv ed Hypertensive heart disease LBBB Primary hypertension with hypertensive emergency paroxysmal atrial fibrillation Delirium vs decompensated dementia treated hyperthyroidism Plan BP control K correction and begin spironolactone amiodarone AF prophylaxis F/U echo and PAP measurement tuesday surgery delayed to tuesday No anticoagulation due to surgery necessity Constipation -MiraLAX twice daily as needed -Colace -GI following DM 2 -A1c -Accu-Chek with SSI HTN -Uncontrolled -236/144 per OSH -Improved with labetalol -prn labetalol clonidine patch 0.3 Thyroid disorder -TSH -Home medication Anxiety disorder -Continue home regimen DVT /GI ppx SCD/famotidine full code Physician: Pending clinical course -- OBJECTIVE -- VITALS (05/24 13:35 - 05/25 13:35): Temperature C: 36.7 (36.6 - 36.9) Temperature source: Oral Pulse Rate 65 (65 - 74) Respiratory rate: 15 (15 - 20) BP: 114/74 (114/74 - 168/77) I/Os (05/24 07:00 - 05/25 07:00): Net 840.00 Intake 840.00 -EXAM- HEAD: Normocephalic, atraumatic. LUNGS: Clear bilaterally with normal respiratory effort. HEART: Regular rate and rhythm, normal S1, S2, n o murmurs, no rubs, no gallops, no clicks. ABDOMEN: Large pannus NT/ND. Decreased BS MUSCULOSKELETAL: no deformities EXTREMITIES: no edema NEUROLOGICAL: A Ox3 SKIN: warm dry -- DATA -- MEDICATIONS NITROGLYCERIN 1 PATCH TOPICAL DAILY ONDANSETRON HCL/PF 4 MG IV Q4H PRN ESCITALOPRAM 10 MG PO DAILY ACETAMINOPHEN 650 MG PO Q6H PRN methIMAzole 10 MG PO DAILY FLUTICASONE/VILANTEROL 1 PUFF INH RTDAILY GLUCAGON 1 MG IM ASDIR (PRN) SPIRONOLACTONE 25 MG PO DAILY LOSARTAN POTASSIUM 50 MG PO Q12HR MIRTAZAPINE 15 MG PO BEDTIME MELATONIN 3 MG PO BEDTIME PRN INSULIN LISPRO 0 UNITS SUBQ Q6HR METOPROLOL TARTRATE 100 MG PO Q12HR ALPRAZolam 0.5 MG PO Q6H PRN DEXTROSE 50%-WATER 25 ML IV ASDIR (PRN) DEXTROSE 5%-WATER 1000 ML IV .Q24H DOCUSATE SODIUM 100 MG PO BID FUROSEMIDE 20 MG PO QAM LABETALOL HCL 20 MG IV Q4HR PRN NIFEdipine 60 MG PO Q12HR LABS MAG (05/25/21 07:09) MAGNESIUM 1.8 PHOS (05/25/21 07:09) PHOSPHOROUS 2.9 CBC W/AUTO DIFF (05/25/21 07:09) WHITE BLOOD CELL 6.0 RED BLOOD CELL 5.08 HEMOGLOBIN 13.0 HEMATOCRIT 41.2 MEAN CELL VOLUME 81.1 MEAN CELL HGB 25.6 L MEAN CELL HGB CONCENTRATION 31.6 L RED CELL DISTRIBUTION WIDTH 15.4 PLATELET COUNT 414 MEAN PLATELET VOLUME 9.7 NEUTROPHIL % 67.2 LYMPHOCYTE % 18.3 L MONOCYTE % 9.1 EOSINOPHIL % 4.2 BASOPHIL % 0.5 NEUTROPHIL # 4.05 LYMPHOCYTE # 1.10 MONOCYTE # 0.55 EOSINOPHIL # 0.25 BASOPHIL # 0.03 BASIC METABOLIC PANEL (05/25/21 07:09) SODIUM 140 POTASSIUM 3.6 CHLORIDE 97L L CARBON DIOXIDE 31 GLUCOSE 116H H BLOOD UREA NITROGEN 16 GLOMERULAR FILTRATION RATE >=60 max estimate CREATININE 0.90 CALCIUM 8.7 BNP (05/25/21 07:09) B-TYPE NATRIURETIC PEPTIDE 793 H GLU BED (05/25/21 07:04) GLUBED 115 H GLU BED (05/25/21 00:34) GLUBED 126 H GLU BED (05/24/21 15:50) GLUBED 121 H -- QUALITY -- -MEDICATIONS- - I attest that the foregoing medication list i n the medical record is true, accurate, and complete to the best of my knowled ge. -ADVANCED CARE PLAN >65- PATIENT HAS AN ADVANCE CARE PLAN: Yes -VTE PROPHYLAXIS -GENERAL- Yes -- ATTESTATION -- ADDITIONAL DETAIL: Time spent in Direct ,Counseling , Coordination of care ,Discharge planning : 33 minutes > 50% of time spent on Counseling/Care Coordinat ion Care activities / Care coordination: I have reviewed the history and repeated the wheat elements I have seen and examined this patient I have reviewed the progress in the clin ical course since the last examination I have discussed the patient's condition with ot her members of the care team Signed in PatientKeeper by Margi Holly MD on 0 05/25/21 at 18:45 Electronically Signed by Margi Holly MD on 01/05 at 1845 ATTENTION *EDITS and/or ADDENDA must be made in Patient Ke [facility] for this note. * * Edits and ammendments created in [employer] are not visible * * in Patient Keeper or the legal medical record ([facility]). * RPT #: [id number] END OF REPORT 2021-05-25 10:43:00-00:00 [facility] ([facility]) Nephrology Progress Note REPORT #: [id number] REPORT STATUS: Signed DATE: 05/25/21 TIME: 1043 PATIENT: CYNDI MONTAÑO UNIT #: [id number] ROOM #: [id number] BED: 1 : 51 AGE: 70 SEX: F ATTEND: Kt Holly MD ADM AUTHOR: Alo Escobedo MD ATTENTION *EDITS and/or ADDENDA must be made in Patient [facility] for this note. * * Edits and ammendments created in [employer] are not visible * * in Patient Keeper or the legal medical record ([facility]). * -- ASSESSMENT AND PLAN -- PROBLEMS: 1: MAJOR (acute kidney injury) A/P: Probably due to volume depletion and normal ized BP. BUN/Cr is back to normal range this AM. Continue to monitor 2: Hypokalemia A/P: Better. Continue to monitor and replace as needed 3: Metabolic alkalosis A/P: Probably due to NG suction and volume contr action. 4: HTN (hypertension) A/P: Now on Nifedipine 60 mg BID, Metopr olol 100 mg BID and Losartan 50 mg BID -- SUBJECTIVE -- PATIENT NARRATIVE: She is doing OK this AM. No c/o -- OBJECTIVE -- VITALS (05/24 10:43 - 05/25 10:43): Temperature C: 36.9 (36.6 - 36.9) Temperature source: Oral Pulse Rate 74 (67 - 74) Respiratory rate: 20 (17 - 20) BP: 151/77 (120/75 - 168/77) I/Os (05/24 07:00 - 05/25 07:00): Net 840.00 Intake 840.00 -EXAM- LUNGS: Clear bilaterally with normal respiratory effort. HEART: Regular rate and rhythm, normal S1, S2, n o murmurs, no rubs, no gallops, no clicks. ABDOMEN: Large pannus NT/ND. Decreased BS EXTREMITIES: no edema -- DATA -- MEDICATIONS NITROGLYCERIN 1 PATCH TOPICAL DAILY ONDANSETRON HCL/PF 4 MG IV Q4H PRN ESCITALOPRAM 10 MG PO DAILY ACETAMINOPHEN 650 MG PO Q6H PRN methIMAzole 10 MG PO DAILY FLUTICASONE/VILANTEROL 1 PUFF INH RTDAILY GLUCAGON 1 MG IM ASDIR (PRN) SPIRONOLACTONE 25 MG PO DAILY LOSARTAN POTASSIUM 50 MG PO Q12HR MIRTAZAPINE 15 MG PO BEDTIME MELATONIN 3 MG PO BEDTIME PRN INSULIN LISPRO 0 UNITS SUBQ Q6HR METOPROLOL TARTRATE 100 MG PO Q12HR ALPRAZolam 0.5 MG PO Q6H PRN DEXTROSE 50%-WATER 25 ML IV ASDIR (PRN) DEXTROSE 5%-WATER 1000 ML IV .Q24H DOCUSATE SODIUM 100 MG PO BID FUROSEMIDE 20 MG PO QAM LABETALOL HCL 20 MG IV Q4HR PRN NIFEdipine 60 MG PO Q12HR LABS MAG (05/25/21 07:09) MAGNESIUM 1.8 PHOS (05/25/21 07:09) PHOSPHOROUS 2.9 CBC W/AUTO DIFF (05/25/21 07:09) WHITE BLOOD CELL 6.0 RED BLOOD CELL 5.08 HEMOGLOBIN 13.0 HEMATOCRIT 41.2 MEAN CELL VOLUME 81.1 MEAN CELL HGB 25.6 L MEAN CELL HGB CONCENTRATION 31.6 L RED CELL DISTRIBUTION WIDTH 15.4 PLATELET COUNT 414 MEAN PLATELET VOLUME 9.7 NEUTROPHIL % 67.2 LYMPHOCYTE % 18.3 L MONOCYTE % 9.1 EOSINOPHIL % 4.2 BASOPHIL % 0.5 NEUTROPHIL # 4.05 LYMPHOCYTE # 1.10 MONOCYTE # 0.55 EOSINOPHIL # 0.25 BASOPHIL # 0.03 BASIC METABOLIC PANEL (05/25/21 07:09) SODIUM 140 POTASSIUM 3.6 CHLORIDE 97L L CARBON DIOXIDE 31 GLUCOSE 116H H BLOOD UREA NITROGEN 16 GLOMERULAR FILTRATION RATE >=60 max estimate CREATININE 0.90 CALCIUM 8.7 BNP (05/25/21 07:09) B-TYPE NATRIURETIC PEPTIDE 793 H GLU BED (05/25/21 07:04) GLUBED 115 H GLU BED (05/25/21 00:34) GLUBED 126 H GLU BED (05/24/21 15:50) GLUBED 121 H GLU BED (05/24/21 11:29) GLUBED 125 H Signed in PatientKeeper by Alo Escobedo MD on 05/25 at 10:46 Electronically Signed by Alo Escobedo MD on 2 at 1046 ATTENTION *EDITS and/or ADDENDA must be made in Patient Ke eper for this note. * * Edits and ammendments created in [facility] are not visible * * in Patient Keeper or the legal medical record (HPF). * RPT #: [id number] END OF REPORT 2021-05-25 10:35:00-00:00 [facility] ([facility]) Colorectal Surgery Prog Note REPORT#:[id number] REPORT STATUS: Signed DATE:05/25/21 TIME: 1035 PATIENT: CYNDI MONTAÑO UNIT #: [id number] ROOM: [facility] BED: 1 : 51 AGE: 70 SEX: F ATTEND: Kt Holly MD ADM AUTHOR: Yomi Yadav DO * ALL edits or amendments must be made on the [employer]/computer document * Review of Systems Constitutional: Denies: chills, fever, generalized weakness. GI: Denies: abdominal pain, constipation, GERD, naus ea, vomiting. Objective General VS/I O: Last Documented: Result Date Time Pulse Ox 96 05/26 651 B/P 151/77 05/26 651 B/P Mean 101.4 05/26 651 O2 Delivery Room air 05/26 651 Temp 36.9 05/26 651 Pulse 74 05/26 651 Resp 20 05/26 651 FiO2 21 05/22 1725 O2 Flow Rate 1 05/20 1726 24 hour I O ending at 0700: 05/24 1900 05/25 0700 Intake Total 840.00 Output Total Balance 840.00 Intake, IV 600.00 Intake, Oral 240 PATIENT WEIGHT: Weight (lb): 225 Weight (oz): 0.06 Weight (kg): 102.058 Physical exam: general: NAD, AAO X 3 ABDOMEN: SOFT, NON TENDER, MILDLY DISTENDED Diagnosis, Assessment Plan Free Text A P: 70 yo female admitted for large bowel obstructio n secondary to diverticular stricture - I had and in depth discussion with The patient 's daughter umair as did Dr Echols stressing the need for surgical interve ntion to adress the colonic stricture that led to this LBO. I explai cordelia that this obstruction is likely to recurr at some point and that especially given t he patient's co morbidities including heart failure/PH t his would carry a high risk of mortality should she become obstructed again. Cardiology optimization had been organized over the weekend and the plan was to operate today to per form colectomy and possible ostomy creation, However the daughter is adamant about not allowing her mother to proceed with surgery. I again reiterated that although the patient is currently having bowel movements and tolerating clear liquids, the underlying issue has not been adressed and obstruction will likely recurr without surgical intervention. Daughter umair expressed understa nding that the risk of not proceeding with surgery coul d lead to the patient's mortality/demise should she become obstructed again. Inna valerio again stated that the family does not wish to proceed with surgery. Dr Greer lopes had in depth conversation with the daughter as well regarding these matters and stressing the n eed to proceed with surgery while patient is stable, to adress the stricture . at 1051 RPT #:[id number] END OF REPORT 2021-05-25 09:57:00-00:00 [facility] ([facility]) Cardiology Progress Notes REPORT #: [id number] REPORT STATUS: Signed DATE: 05/25/21 TIME: 956 PATIENT: CYNDI MONTAÑO UNIT #: [id number] ROOM #: P.0635 BED: 1 : 51 AGE: 70 SEX: F ATTEND: Kt Holly MD ADM AUTHOR: Ashanti Barker MD ATTENTION *EDITS and/or ADDENDA must be made in Patient Ke eper for this note. * * Edits and ammendments created in [employer] are not visible * * in Patient Keeper or the legal medical record (HPF). * -- ASSESSMENT AND PLAN -- GENERAL ASSESSMENT: Tuesday afternoon, she was removed from N G suction and oral rx provided. It was very successful. she has since, through her daughter, decided against surgery. The patient remains oblivious to her surrounding s, the time or to the extent and source of her illness. The positive note is that evidence of acute heart failure has completely resolved. her LVEF of 45% with a LBBB does not constitute genuine systolic LV failure. Minoxidi l is a difficult medical regimen for outpatient management and requires c lose follow up. I anticipate this to be an undue burden on her and he r family. Therefore, I will transition her to nifedipine, maintaini ng the beta negra/spironolactone/ARB combination. She is transitioned also to daily diuretic whose maintenance should not be so difficult now that NG suction is not contributin g to hypokalemic alkalosis. Dx Hypokalemic alkalosis hypertensive emergency obstruction descending colon Dilated cardiomyopathy acute on chronic diastolic heart failure- impro ed Hypertensive heart disease LBBB Primary hypertension paroxysmal atrial fibrillation Decompensated dementia treated hyperthyroidism Plan Transition to nifedipine blood pressure control No AF anti-arrhythmic therapy diuretic/katharine/arb Rx of mixed heart failure No systemic anticoagulation due to excess hemorr lenin risk. Ashanti Barker [phone] -- SUBJECTIVE -- CHIEF COMPLAINT: 70 woman who requires laparotomy has a history o f pulmonary hypertension. -REVIEW OF SYSTEMS- COMMENT: 4.6 She requires surgery for colonic st ricture and obstruction. She has chronic systolic heart failure due to H TN Heart disease and paroxysmal atrial fibrillation to b oot. Her current LVEF and PAP were measurements duri ng decompensation with emergency hypertension. He r function appears to be such that she will tolerate gener al anesthesia and colon resection with reasonable risk. She requires blood pressure control. I discussed her heart disease, management and t he risk of surgery with her daughter at the bedside today. Her risk was discussed with colorectal surgery this afternoon. I recommended additional time for bl ood pressure and heart failure control that will allow a hilario sonable, marginally increased risk of complication that is principally related to a recurrence of atrial fibrillation. 4.7 She is uncomfortable and back on NG suction . I transitioned her Rx to minoxidil due to ineffec tiveness of amlodipine and inability to use nifedipine. The effectiveness of all may be impaired by her curtis ited absorption. she needs to get Rx to the second part of the duodenum and may not be doing so. I will contin ue to try through the day. The alternatives are to shift to oral clonidine, short acting nifedipine every 4 hour s and IV metoprolol. This option will be rather work int ensive for nursing. She required labetalol twice during the day and the clonidine transition is made along with a shift to max dose of minoxidil. The nifedipine consideration tangela l wait for tomorrow and observation of at least two doses of minoxidil. Her heart failure is not yet compensated but c orrection of severe hyperkalemia in incomplete. I will need to have BNP and xray tomorrow to zigzag appliquer the rapidity of mary jane tional K correction and diuresis that is necessary. 4.8 The attempt to control her blood pressure w ith oral Rx is floundering badly. She has colonic o bstruction and after NG clamp or oral Rx, a large residual , feculent material and almost certainly her medications c ome out through the NG suction. She also has hypokalemi c alkalosis, partly due to suction. In order to have her opt imally controlled for surgery, I need K correction, di uresis and blood pressure control. This is simply not poss ible without more intense care: IV Cardene/metoporolol, K co rrection, acetazolamide/furosemide at least once. I revie wed our predicament with Dr. Kent this morning an d she will hopefully move to ICU today. Once on IV Rx, we can stop oral, whose effectiveness is minimal thus far. -- OBJECTIVE -- VITALS (05/24 09:58 - 05/25 09:58): Temperature C: 36.9 (36.6 - 36.9) Temperature source: Oral Pulse Rate 74 (67 - 74) Respiratory rate: 20 (17 - 20) BP: 151/77 (120/75 - 168/77) I/Os (05/24 07:00 - 05/25 07:00): Net 840.00 Intake 840.00 -EXAM- OTHER: General: Normal appearing adult in bed comfortable HNT: normal head anatomy. normal sclerae, pupils are equal and normal. normal oral mucosae. Normal externa l ears and hair distribution. Neck: No lymphadenopathy or mass. airway midline with thyroid normal Chest: Chest wall is normal. Excursion is limite. Gertrude th sounds have bibasilar rales. Expiratory phase is normal. Wheezes are absent. Back: + kyphosis. No scoliosis. No tenderness. Cardiovascular: Rhythm is regular JVP 8cm HJR+ Pulses PMI Valve sounds The first sound is normal. The second sound is normally split Murmur There is no murmur Filling sound filling sound is not audible today Abdomen The abdomen is obese. epigastric, RUQ (70-80's choley), supraumb inf umb scars. There is no pa lpable organomegaly. the wall is soft. Bowel sounds ar e present. Extrem. There is no edema. Skin There is no rash Neuro Oriented to person and time. confused but unchanged Psych cooperative -- DATA -- MEDICATIONS NITROGLYCERIN 1 PATCH TOPICAL DAILY ONDANSETRON HCL/PF 4 MG IV Q4H PRN ESCITALOPRAM 10 MG PO DAILY ACETAMINOPHEN 650 MG PO Q6H PRN methIMAzole 10 MG PO DAILY FLUTICASONE/VILANTEROL 1 PUFF INH RTDAILY GLUCAGON 1 MG IM ASDIR (PRN) SPIRONOLACTONE 25 MG PO DAILY minoxidiL 10 MG PO Q12HR LOSARTAN POTASSIUM 50 MG PO Q12HR MIRTAZAPINE 15 MG PO BEDTIME MELATONIN 3 MG PO BEDTIME PRN INSULIN LISPRO 0 UNITS SUBQ Q6HR METOPROLOL TARTRATE 100 MG PO Q12HR ALPRAZolam 0.5 MG PO Q6H PRN (Held) AMIODARONE HCL with/in DEXTROSE 5%-WATER 300 MG IV DAILY DEXTROSE 50%-WATER 25 ML IV ASDIR (PRN) DEXTROSE 5%-WATER 1000 ML IV .Q24H DOCUSATE SODIUM 100 MG PO BID LABETALOL HCL 20 MG IV Q4HR PRN LABS MAG (05/25/21 07:09) MAGNESIUM 1.8 PHOS (05/25/21 07:09) PHOSPHOROUS 2.9 CBC W/AUTO DIFF (05/25/21 07:09) WHITE BLOOD CELL 6.0 RED BLOOD CELL 5.08 HEMOGLOBIN 13.0 HEMATOCRIT 41.2 MEAN CELL VOLUME 81.1 MEAN CELL HGB 25.6 L MEAN CELL HGB CONCENTRATION 31.6 L RED CELL DISTRIBUTION WIDTH 15.4 PLATELET COUNT 414 MEAN PLATELET VOLUME 9.7 NEUTROPHIL % 67.2 LYMPHOCYTE % 18.3 L MONOCYTE % 9.1 EOSINOPHIL % 4.2 BASOPHIL % 0.5 NEUTROPHIL # 4.05 LYMPHOCYTE # 1.10 MONOCYTE # 0.55 EOSINOPHIL # 0.25 BASOPHIL # 0.03 BASIC METABOLIC PANEL (05/25/21 07:09) SODIUM 140 POTASSIUM 3.6 CHLORIDE 97L L CARBON DIOXIDE 31 GLUCOSE 116H H BLOOD UREA NITROGEN 16 GLOMERULAR FILTRATION RATE >=60 max estimate CREATININE 0.90 CALCIUM 8.7 BNP (05/25/21 07:09) B-TYPE NATRIURETIC PEPTIDE 793 H GLU BED (05/25/21 07:04) GLUBED 115 H GLU BED (05/25/21 00:34) GLUBED 126 H GLU BED (05/24/21 15:50) GLUBED 121 H GLU BED (05/24/21 11:29) GLUBED 125 H ADDITIONAL COMMENTS: I have reviewed telemetry, laboratory testing an d imaging studies. Synthesis and notation is included in the final assessment . Signed in PatientKeeper by Ashanti Barker MD on 05/25/21 at 10:04 at 1004 ATTENTION *EDITS and/or ADDENDA must be made in Patient Ke eper for this note. * * Edits and ammendments created in [employer] are not visible * * in Patient Keeper or the legal medical record (HPF). * [facility] #: [id number] END OF REPORT 2021-05-25 06:37:00-00:00 [id number] [facility] [address] [place] [address] PATIENT NAME: CYNDI MONTAÑO ADMIT DATE: 05/17/21 ACCOUNT NO: [id number] ROOM NO: P.0635 AGE: 70 REPORT TYPE: PROGRESS NOTE SEX: F ADMITTING PHYSICIAN:Kt Holly MD ATTENDING PHYSICIAN:Kt Holly MD DATE: 05/25/2021 GASTROENTEROLOGY PROGRESS NOTE PROBLEM: Abnormal sigmoid colon. SUBJECTIVE: The patient states she feels fine. S he is not experiencing any abdominal pain. No nausea or vomiting. OBJECTIVE: VITAL SIGNS: Temperature is 36.8, pulse of 73, r espirations of 18, blood pressure 140/76. GENERAL: The patient is alert, no acute distress . ABDOMEN: Soft and nontender. No guarding. ASSESSMENT: The patient clinically is stable. He r gastrointestinal symptoms have resolved. Surgical intervention is planned per discussion with ____. We would plan colonoscopy at some point in the p ostoperative period. PLAN: DIAGNOSTIC: Possible surgical intervention of co carla. THERAPEUTIC: Continue present regimen. PATIENT EDUCATION: None required. Dictated By: Antony Milner Jr, MD WT: PN:PKAYLYN/VIRIDIANA/DEBI Conf#: [id number]/DID#: [id number] Authenticated by Antony Milner MD On 07:08:18 AM at 0708 PATIENT NAME: CYNDI MONTAÑO 665 2021-05-24 13:50:00-00:00 [facility] ([facility]) Family Medicine Progress Note REPORT #: [id number] REPORT STATUS: Signed DATE: 05/24/21 TIME: 1350 PATIENT: CYNDI MONTAÑO UNIT #: [id number] ROOM #: P.0635 BED: 1 : 51 AGE: 70 SEX: F ATTEND: Kt Holly MD ADM AUTHOR: Margi Holly MD ATTENTION *EDITS and/or ADDENDA must be made in Patient Ke eper for this note. * * Edits and ammendments created in [employer] are not visible * * in Patient Keeper or the legal medical record (HPF). * -- ASSESSMENT AND PLAN -- HOSPITAL COURSE TO DATE: The patient is a 70-year-old female with a past medical history of anxiety, DM 2, HTN, migraines, thyroid problem, and TIA who presents originally to outside hospital with a chief complaint of abdominal kenny n x1 week with no bowel movement x1 week and worsening abdominal distent ion/mass. Outside hospital presentation found patient h ypertensive BP 235/144, tachycardic 121, tachypneic 22, Temp 98.6 degrees Fahren heit, a pain scale 7/10 CT abdomen and pelvics with large bowel obstruction at the junction of desce nding and sigmoid:: Bowel obstruction. 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 Patient states she had bowel movement at th e facility yesterday though remains mildly distended with mild discomfort bu t currently reports feeling better. 05/24/2021 She was noted to have elevated BUN/Cr as well a s persistent hypokalemia therefore nephrology consult. GENERAL ASSESSMENT: Large Colon Bowel obstruction with strictures -+Abd pain, no BM x 1 week -Colon and rectal surgery consult Dr Monaco, Ma rk -Abd US -prn morphine and Zofran for pain and nausea con trol NGT in place medical management at this time continue to follow drainage and XR obstruction descending colon Dilated cardiomyopathy acute on chronic diastolic heart failure- formerly [facility], later [facility] Hypertensive heart disease LBBB Primary hypertension with hypertensive emergency paroxysmal atrial fibrillation Delirium vs decompensated dementia treated hyperthyroidism Plan BP control K correction and begin spironolactone amiodarone AF prophylaxis F/U echo and PAP measurement tuesday surgery delayed to tuesday No anticoagulation due to surgery necessity Constipation -MiraLAX twice daily as needed -Colace -GI following DM 2 -A1c -Accu-Chek with SSI HTN -Uncontrolled -236/144 per OSH -Improved with labetalol -prn labetalol clonidine patch 0.3 Thyroid disorder -TSH -Home medication Anxiety disorder -Continue home regimen DVT /GI ppx SCD/famotidine full code Physician: Pending clinical course -- OBJECTIVE -- VITALS (05/23 13:50 - 05/24 13:50): Temperature C: 36.8 (36.6 - 37.2) Temperature source: Oral Pulse Rate 68 (67 - 77) Respiratory rate: 17 (17 - 18) BP: 149/75 (126/72 - 150/75) I/Os (05/23 07:00 - 05/24 07:00): Net 774 Intake 774 -- DATA -- MEDICATIONS LOSARTAN POTASSIUM 50 MG PO Q12HR NITROGLYCERIN 1 PATCH TOPICAL DAILY ONDANSETRON HCL/PF 4 MG IV Q4H PRN ESCITALOPRAM 10 MG PO DAILY MIRTAZAPINE 15 MG PO BEDTIME MELATONIN 3 MG PO BEDTIME PRN INSULIN LISPRO 0 UNITS SUBQ Q6HR METOPROLOL TARTRATE 100 MG PO Q12HR ALPRAZolam 0.5 MG PO Q6H PRN (Held) AMIODARONE HCL with/in DEXTROSE 5%-WATER 300 MG IV DAILY ACETAMINOPHEN 650 MG PO Q6H PRN DEXTROSE 50%-WATER 25 ML IV ASDIR (PRN) DEXTROSE 5%-WATER 1000 ML IV .Q24H DOCUSATE SODIUM 100 MG PO BID methIMAzole 10 MG PO DAILY FLUTICASONE/VILANTEROL 1 PUFF INH RTDAILY MAGNESIUM 1 GM IV ONCE GLUCAGON 1 MG IM ASDIR (PRN) SPIRONOLACTONE 25 MG PO DAILY LABETALOL HCL 20 MG IV Q4HR PRN minoxidiL 10 MG PO Q12HR ALBUMIN HUMAN 25% 12.5 GM IV Q8HR LABS GLU BED (05/24/21 11:29) GLUBED 125 H GLU BED (05/24/21 07:35) GLUBED 116 H GLU BED (05/24/21 06:30) GLUBED 108 H CBC W/AUTO DIFF (05/24/21 04:30) WHITE BLOOD CELL 6.4 RED BLOOD CELL 4.62 HEMOGLOBIN 12.0 HEMATOCRIT 37.9 MEAN CELL VOLUME 82.0 MEAN CELL HGB 26.0 L MEAN CELL HGB CONCENTRATION 31.7 L RED CELL DISTRIBUTION WIDTH 15.4 PLATELET COUNT 391 MEAN PLATELET VOLUME 9.8 NEUTROPHIL % 69.4 LYMPHOCYTE % 17.9 L MONOCYTE % 9.9 H EOSINOPHIL % 1.7 BASOPHIL % 0.2 NEUTROPHIL # 4.43 LYMPHOCYTE # 1.14 MONOCYTE # 0.63 EOSINOPHIL # 0.11 BASOPHIL # 0.01 COMPREHENSIVE METABOLIC PANEL (05/24/21 04:30) SODIUM 139 POTASSIUM 3.0 L CHLORIDE 96 L CARBON DIOXIDE 32 H GLUCOSE 114 H BLOOD UREA NITROGEN 21 GLOMERULAR FILTRATION RATE 52 L CREATININE 1.10 H TOTAL PROTEIN 5.5 L ALBUMIN 3.2 CALCIUM 8.3 L BILIRUBIN TOTAL 0.3 SGOT/AST 20 SGPT/ALT < 7 L ALKALINE PHOSPHATASE 92 GLU BED (05/24/21 00:31) GLUBED 88 GLU BED (05/23/21 17:17) GLUBED 103 Signed in PatientKeeper by Margi Holly MD on 0 05/24/21 at 18:50 Electronically Signed by Margi Holly MD on 12/05 at 1850 ATTENTION *EDITS and/or ADDENDA must be made in Patient Ke eper for this note. * * Edits and ammendments created in [facility] are not visible * * in Patient Keeper or the legal medical record (HPF). * RPT #: [id number] END OF REPORT 2021-05-24 13:16:00-00:00 [facility] ([facility]) Nephrology Consultation REPORT #: [id number] REPORT STATUS: Signed DATE: 05/24/21 TIME: 1316 PATIENT: CYNDI MONTAÑO UNIT #: [id number] ROOM #: [facility] BED: 1 : 51 AGE: 70 SEX: F ATTEND: Kt Holly MD ADM AUTHOR: Alo Escobedo MD ATTENTION *EDITS and/or ADDENDA must be made in Patient Ke eper for this note. * * Edits and ammendments created in [employer] are not visible * * in Patient Keeper or the legal medical record (HPF). * -- ASSESSMENT AND PLAN -- PROBLEMS: 1: MAJOR (acute kidney injury) A/P: Probably due to volume depletion and normal ized BP. Clinically she is in CHF and may be needing diure sis => I will not be able to give her IVF => I will give her Albumin instead and observe Cr trend. C heck urine Cl to determine if this is volume responsive. 2: Hypokalemia A/P: Patient has metabolic alkalosis and hypokal emia s/o GI loss (NGT suction and diarrhea) causing hypokalemia> Clay nue with IV KCl replacement as well as replacing Mg. 3: Metabolic alkalosis A/P: Probably due to NG suction and volume contr action. 4: HTN (hypertension) A/P: Continue with Minoxidil, Metoprolol and Los dwayne -- HISTORY -- CONSULT REQUESTED BY: Kt Holly MD DATE/TIME AT BEDSIDE: 2021-05-24 REASON FOR CONSULT: MAJOR, hypokalemia CHIEF COMPLAINT: none HPI: 70 yo AAW with h/o HTN, DM2, anxiety, migraines, hyperthyroidism and TIA who presents originally to outside hospital with a c hief complaint of abdominal pain x1 week with no bowel movement x1 week and worsening abdominal distention/mass. She was found with larg e bowel obstruction at the junction of descending and sigmoid and was transferred to [facility] accepted by colorectal for further management. Her hospital curse was noted for non surgical management with NGT and optimization of her cardiac condition (diastolic CHF and HTN) as she was prepared for surgery on Tuesday. She was noted to have elevated BUN/Cr as well as persistent hypokalemia therefore this consult. PAST MEDICAL HISTORY: Anxiety Diabetes mellitus HTN Migraines Thyroid problem TIA PAST SURGICAL HISTORY: Cholecystectomy Hysterectomy FAMILY HISTORY: DM, HTN -SOCIAL HISTORY- -TOBACCO USE- DETAILS/COMMENTS: none -ALCOHOL USE- DETAILS/COMMENTS: none -- ALLERGIES/HOME MEDS -- ALLERGIES: No Known Allergies (UNKNOWN - Allergy) HOME MEDICATIONS: ALPRAZolam Tab (Xanax Tab) 0.125 MG PO BID Apixaban Tab (Eliquis Tab) 5 MG PO BID Escitalopram Tab (Lexapro Tab) 10 MG PO DAILY Flutica/Vilant 200/25 Inh (Breo Ellipta 200/25 I nh) 1 PUFF INH RTDAILY Furosemide Tab (Lasix Tab) Oral Lactulose Oral Liquid (Enulose Oral Liquid) 30 M L PO DAILY methIMAzole tablet 10 MG PO DAILY Sotalol Tab (Betapace Tab) 80 MG PO BID Temazepam Cap (Restoril Cap) 22.5 MG PO BEDTIME traMADol Tab (Ultram Tab) 50 MG PO Q6H -- SUBJECTIVE -- -REVIEW OF SYSTEMS- GENERAL: generalized weakness; EYES: Negative for blurry vision. No diplopia. RESPIRATORY: Negative for dyspnea or wheeze. No cough. CARDIOVASCULAR: Negative for chest pain or palpi tations. No extremity swelling. GASTROINTESTINAL: abdominal pain; diarrhea; GENITOURINARY: Negative for dysuria, frequency, or urgency. No gross hematuria. MUSCULOSKELETAL: Negative for joint stiffness, p ain, or arthralgias. -- OBJECTIVE -- VITALS (05/23 13:17 - 05/24 13:17): Temperature C: 36.8 (36.6 - 37.2) Temperature source: Oral Pulse Rate 68 (67 - 77) Respiratory rate: 17 (17 - 18) BP: 149/75 (126/72 - 150/75) I/Os (05/23 07:00 - 05/24 07:00): Net 774 Intake 774 -EXAM- GENERAL: Obese AAW, in no apparent distress. HEAD: Normocephalic, atraumatic. LUNGS: Clear bilaterally with normal respiratory effort. HEART: Regular rate and rhythm, normal S1, S2, n o murmurs, no rubs, no gallops, no clicks. ABDOMEN: Large pannus NT/ND. Decreased BS EXTREMITIES: no edema -- DATA -- MEDICATIONS LOSARTAN POTASSIUM 50 MG PO Q12HR NITROGLYCERIN 1 PATCH TOPICAL DAILY ONDANSETRON HCL/PF 4 MG IV Q4H PRN ESCITALOPRAM 10 MG PO DAILY MIRTAZAPINE 15 MG PO BEDTIME MELATONIN 3 MG PO BEDTIME PRN INSULIN LISPRO 0 UNITS SUBQ Q6HR METOPROLOL TARTRATE 100 MG PO Q12HR ALPRAZolam 0.5 MG PO Q6H PRN (Held) AMIODARONE HCL with/in DEXTROSE 5%-WATER 300 MG IV DAILY ACETAMINOPHEN 650 MG PO Q6H PRN DEXTROSE 50%-WATER 25 ML IV ASDIR (PRN) DEXTROSE 5%-WATER 1000 ML IV .Q24H DOCUSATE SODIUM 100 MG PO BID methIMAzole 10 MG PO DAILY FLUTICASONE/VILANTEROL 1 PUFF INH RTDAILY GLUCAGON 1 MG IM ASDIR (PRN) SPIRONOLACTONE 25 MG PO DAILY LABETALOL HCL 20 MG IV Q4HR PRN minoxidiL 10 MG PO Q12HR LABS POTASSIUM 05/24/21 04:30 3.0 05/22/21 06:23 3.3 05/21/21 10:01 2.6 05/20/21 05:16 2.8 05/19/21 06:54 3.3 05/18/21 06:06 3.2 05/17/21 07:48 3.4 CHLORIDE 05/24/21 04:30 96 05/22/21 06:23 92 05/21/21 10:01 94 05/20/21 05:16 96 05/19/21 06:54 100 05/18/21 06:06 99 05/17/21 07:48 97 CARBON DIOXIDE 05/24/21 04:30 32 05/22/21 06:23 34 05/21/21 10:01 32 05/20/21 05:16 30 05/19/21 06:54 30 05/18/21 06:06 30 05/17/21 07:48 32 GLUCOSE 05/24/21 04:30 114 05/22/21 06:23 178 05/21/21 10:01 173 05/20/21 05:16 119 05/19/21 06:54 186 05/18/21 06:06 231 05/17/21 07:48 193 BLOOD UREA NITROGEN 05/24/21 04:30 21 05/22/21 06:23 11 05/21/21 10:01 8 05/20/21 05:16 14 05/19/21 06:54 12 05/18/21 06:06 10 05/17/21 07:48 12 GLOMERULAR FILTRATION RATE 05/24/21 04:30 52 05/22/21 06:23 >=60 max estimate 05/21/21 10:01 >=60 max estimate 05/20/21 05:16 >=60 max estimate 05/19/21 06:54 >=60 max estimate 05/18/21 06:06 >=60 max estimate 05/17/21 07:48 >=60 max estimate CREATININE 05/24/21 04:30 1.10 05/22/21 06:23 0.70 05/21/21 10:01 0.60 05/20/21 05:16 0.80 05/19/21 06:54 0.70 05/18/21 06:06 0.60 05/17/21 07:48 0.70 TOTAL PROTEIN 05/24/21 04:30 5.5 05/22/21 06:23 05/21/21 10:01 05/20/21 05:16 05/19/21 06:54 6.2 05/18/21 06:06 6.0 05/17/21 07:48 6.4 CALCIUM 05/24/21 04:30 8.3 05/22/21 06:23 8.0 05/21/21 10:01 7.4 05/20/21 05:16 8.9 05/19/21 06:54 8.5 05/18/21 06:06 8.4 05/17/21 07:48 8.7 BILIRUBIN TOTAL 05/24/21 04:30 0.3 05/22/21 06:23 05/21/21 10:01 05/20/21 05:16 05/19/21 06:54 0.4 05/18/21 06:06 0.3 05/17/21 07:48 0.5 SGOT/AST 05/24/21 04:30 20 05/22/21 06:23 05/21/21 10:01 05/20/21 05:16 05/19/21 06:54 20 05/18/21 06:06 16 05/17/21 07:48 21 SGPT/ALT 05/24/21 04:30 < 7 05/22/21 06:23 05/21/21 10:01 05/20/21 05:16 05/19/21 06:54 9 05/18/21 06:06 < 7 05/17/21 07:48 8 ALBUMIN 05/24/21 04:30 3.2 05/22/21 06:23 05/21/21 10:01 05/20/21 05:16 05/19/21 06:54 3.6 05/18/21 06:06 3.4 05/17/21 07:48 3.7 ALKALINE PHOSPHATASE 05/24/21 04:30 92 05/22/21 06:23 05/21/21 10:01 05/20/21 05:16 05/19/21 06:54 111 05/18/21 06:06 118 05/17/21 07:48 132 GLU BED (05/24/21 11:29) GLUBED 125 H GLU BED (05/24/21 07:35) GLUBED 116 H GLU BED (05/24/21 06:30) GLUBED 108 H CBC W/AUTO DIFF (05/24/21 04:30) WHITE BLOOD CELL 6.4 RED BLOOD CELL 4.62 HEMOGLOBIN 12.0 HEMATOCRIT 37.9 MEAN CELL VOLUME 82.0 MEAN CELL HGB 26.0 L MEAN CELL HGB CONCENTRATION 31.7 L RED CELL DISTRIBUTION WIDTH 15.4 PLATELET COUNT 391 MEAN PLATELET VOLUME 9.8 NEUTROPHIL % 69.4 LYMPHOCYTE % 17.9 L MONOCYTE % 9.9 H EOSINOPHIL % 1.7 BASOPHIL % 0.2 NEUTROPHIL # 4.43 LYMPHOCYTE # 1.14 MONOCYTE # 0.63 EOSINOPHIL # 0.11 BASOPHIL # 0.01 COMPREHENSIVE METABOLIC PANEL (05/24/21 04:30) SODIUM 139 POTASSIUM 3.0 L CHLORIDE 96 L CARBON DIOXIDE 32 H GLUCOSE 114 H BLOOD UREA NITROGEN 21 GLOMERULAR FILTRATION RATE 52 L CREATININE 1.10 H TOTAL PROTEIN 5.5 L ALBUMIN 3.2 CALCIUM 8.3 L BILIRUBIN TOTAL 0.3 SGOT/AST 20 SGPT/ALT < 7 L ALKALINE PHOSPHATASE 92 GLU BED (05/24/21 00:31) GLUBED 88 GLU BED (05/23/21 17:17) GLUBED 103 TEST RESULTS XR CHEST 1 V (05/22/21 07:45) IMPRESSION: 1. Mild CHF. Signed in PatientKeeper by Alo Escobedo MD on 05/24 at 13:34 Electronically Signed by Alo Escobedo MD on 2 at 1334 ATTENTION *EDITS and/or ADDENDA must be made in Patient Ke eper for this note. * * Edits and ammendments created in [facility] are not visible * * in Patient Keeper or the legal medical record (HPF). * RPT #: [id number] END OF REPORT 2021-05-24 10:28:00-00:00 [facility] ([facility]) Intervent. Card. Progress Note REPORT #: [id number] REPORT STATUS: Signed DATE: 05/24/21 TIME: 1028 PATIENT: CYNDI MONTAÑO UNIT #: [id number] ROOM #: [facility] BED: 1 : 51 AGE: 70 SEX: F ATTEND: Kt Holly MD ADM AUTHOR: Shane Graham MD ATTENTION *EDITS and/or ADDENDA must be made in Patient Ke eper for this note. * * Edits and ammendments created in [facility] are not visible * * in Patient Keeper or the legal medical record (HPF). * -- ASSESSMENT AND PLAN -- GENERAL ASSESSMENT: For dr Barker: HTN is well controlled. Pulse is regular and she is w/o c/o. For hemicolectomy on Tuesday. Continue Metoprolol, Losartan and Spironolactone . K 3.0 : we will rep[lace it. -- OBJECTIVE -- VITALS (05/23 10:29 - 05/24 10:29): Temperature C: 36.7 (36.6 - 37.2) Temperature source: Oral Pulse Rate 71 (66 - 77) Respiratory rate: 17 (17 - 18) BP: 150/73 (126/72 - 150/81) I/Os (05/23 07:00 - 05/24 07:00): Net 774 Intake 774 -- DATA -- MEDICATIONS LOSARTAN POTASSIUM 50 MG PO Q12HR NITROGLYCERIN 1 PATCH TOPICAL DAILY ONDANSETRON HCL/PF 4 MG IV Q4H PRN ESCITALOPRAM 10 MG PO DAILY MIRTAZAPINE 15 MG PO BEDTIME MELATONIN 3 MG PO BEDTIME PRN INSULIN LISPRO 0 UNITS SUBQ Q6HR METOPROLOL TARTRATE 100 MG PO Q12HR ALPRAZolam 0.5 MG PO Q6H PRN (Held) AMIODARONE HCL with/in DEXTROSE 5%-WATER 300 MG IV DAILY ACETAMINOPHEN 650 MG PO Q6H PRN DEXTROSE 50%-WATER 25 ML IV ASDIR (PRN) DEXTROSE 5%-WATER 1000 ML IV .Q24H DOCUSATE SODIUM 100 MG PO BID methIMAzole 10 MG PO DAILY FLUTICASONE/VILANTEROL 1 PUFF INH RTDAILY GLUCAGON 1 MG IM ASDIR (PRN) SPIRONOLACTONE 25 MG PO DAILY LABETALOL HCL 20 MG IV Q4HR PRN minoxidiL 10 MG PO Q12HR LABS GLU BED (05/24/21 07:35) GLUBED 116 H GLU BED (05/24/21 06:30) GLUBED 108 H CBC W/AUTO DIFF (05/24/21 04:30) WHITE BLOOD CELL 6.4 RED BLOOD CELL 4.62 HEMOGLOBIN 12.0 HEMATOCRIT 37.9 MEAN CELL VOLUME 82.0 MEAN CELL HGB 26.0 L MEAN CELL HGB CONCENTRATION 31.7 L RED CELL DISTRIBUTION WIDTH 15.4 PLATELET COUNT 391 MEAN PLATELET VOLUME 9.8 NEUTROPHIL % 69.4 LYMPHOCYTE % 17.9 L MONOCYTE % 9.9 H EOSINOPHIL % 1.7 BASOPHIL % 0.2 NEUTROPHIL # 4.43 LYMPHOCYTE # 1.14 MONOCYTE # 0.63 EOSINOPHIL # 0.11 BASOPHIL # 0.01 COMPREHENSIVE METABOLIC PANEL (05/24/21 04:30) SODIUM 139 POTASSIUM 3.0 L CHLORIDE 96 L CARBON DIOXIDE 32 H GLUCOSE 114 H BLOOD UREA NITROGEN 21 GLOMERULAR FILTRATION RATE 52 L CREATININE 1.10 H TOTAL PROTEIN 5.5 L ALBUMIN 3.2 CALCIUM 8.3 L BILIRUBIN TOTAL 0.3 SGOT/AST 20 SGPT/ALT < 7 L ALKALINE PHOSPHATASE 92 GLU BED (05/24/21 00:31) GLUBED 88 GLU BED (05/23/21 17:17) GLUBED 103 GLU BED (05/23/21 11:57) GLUBED 105 Signed in PatientKeeper by Shane Graham MD on 05/24/21 at 10:30 Electronically Signed by MD jojo Soria 05/24/21 at 1030 ATTENTION *EDITS and/or ADDENDA must be made in Patient Vazquez epalexsandra for this note. * * Edits and ammendments created in [employer] are not visible * * in Patient Keeper or the legal medical record (HPF). * RPT #: [id number] END OF REPORT 2021-05-24 07:18:00-00:00 [id number] [facility] [address] [place] [address] PATIENT NAME: CYNDI MONTAÑO ADMIT DATE: 05/17/21 ACCOUNT NO: [id number] ROOM NO: [facility] AGE: 70 REPORT TYPE: PROGRESS NOTE SEX: F ADMITTING PHYSICIAN:Kt Holly MD ATTENDING PHYSICIAN:Kt Holly MD DATE: 05/24/2021 GASTROENTEROLOGY PROGRESS NOTE PROBLEM: Sigmoid colon narrowing. SUBJECTIVE: The patient states she feels fine. She is not having any abdominal pain. No nausea or vomiting. OBJECTIVE: VITAL SIGNS: Temperature is 37.2, pulse of 71, r espirations of 18, blood pressure is 132/72. GENERAL: The patient is alert, responsive, less agitated. No distress. ABDOMEN: Soft and nontender. LABORATORY STUDIES: H and H is 10.0 and 37.9 wit h a WBC of 6400. ASSESSMENT: The patient's abdomen is benign. She is anticipating possible surgical intervention if family is receptive. We will plan colonoscopy after surgery. PLAN: DIAGNOSTIC: None further at this time. Anticipat e colonoscopy some months after surgery. THERAPEUTIC: Continue present regimen. PATIENT EDUCATION: The patient anticipates sigmo id colon surgery by ____. None required. Dictated By: Antony Milner Jr, MD WT: PN:LEONORA/VIRIDIANA/NTS Conf#: [id number]/DID#: [id number] Authenticated by Antony Milner MD On 07:08:17 AM PATIENT NAME: CYNDI MONTAÑO 665 at 0708 PATIENT NAME: CYNDI MONTAÑO 665 2021-05-23 12:45:00-00:00 [facility] ([facility]) Family Medicine Progress Note REPORT #: [id number] REPORT STATUS: Signed DATE: 05/23/21 TIME: 1245 PATIENT: CYNDI MONTAÑO UNIT #: [id number] ROOM #: [id number].[id number] BED: 1 : 51 AGE: 70 SEX: F ATTEND: Kt Holly MD ADM AUTHOR: Margi Holly MD ATTENTION *EDITS and/or ADDENDA must be made in Patient Ke eper for this note. * * Edits and ammendments created in [facility] are not visible * * in Patient Keeper or the legal medical record (HPF). * -- ASSESSMENT AND PLAN -- HOSPITAL COURSE TO DATE: The patient is a 70-year-old female with a past medical history of anxiety, DM 2, HTN, migraines, thyroid problem, and TIA who presents originally to outside hospital with a chief complaint of abdominal kenny n x1 week with no bowel movement x1 week and worsening abdominal distent ion/mass. Outside hospital presentation found patient h ypertensive BP 235/144, tachycardic 121, tachypneic 22, Temp 98.6 degrees Fahren heit, a pain scale 7/10 CT abdomen and pelvics with large bowel obstruction at the junction of desce nding and sigmoid:: Bowel obstruction. 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 Patient states she had bowel movement at e facility yesterday though remains mildly distended with mild discomfort bu t currently reports feeling better. 05/19/2021 - Pt is confused during the night and actually p ulled out her NgT - - Recommend cardiac evaluation due to hx of CH F and possible pulmonary HTN. May benefit from preop echo Dr. Barker consulted and Echo ordered. - Genral surgery consult: PT with partial obstru ction of the colon, NGT was draining brown fluid yesterd ay, she pulled it out and now is nauseated. I think that in order to prevent vom iting and aspiration, replacing an NGT is needed as the obstruction is not resolved yet. She will get cardiac evaluation today and she will be safer to travel with an NGT in place . KUB to follow after placement. Surgical plans after cardiac evaluati on is completed. - NPO for now. ABD/PELVIS CT notes: 1. Abnormal dilation of col onic loops followed to the sigmoid colon where there is a 5 cm section of narrowing which may represent sequelae of diverticulitis although underlying l esion is not excluded. There is also dilation of small bowel loops. 2. Mild dependent atelectasis versus pneumonitis . 3. Cardiomegaly and pulmonary venous hypertensio n. 4. Adrenal hyperplasia versus adenomatosis. 5. Nonspecific small free pelvic fluid. Uterus i s surgically absent. - Abd x ray suggest improvement in constipation 05/20/21: As per Dr. milner note: The patient indicates that she is not having any abdominal pain. She has not had any nausea or vomiting. Her NG t ube is out. The patient's bowel obstruction related to the s igmoid colon area has resolved. The patient is clinically improved . Blood pressure is under better control. The patient's obstructive picture has re solved. Blood pressure is under better control. Proceeding with surgical intervention w ould be advised if cardiology is on board. Question whether a preoperative col onoscopy would be dictated by surgery. We will anticipate interacting with mukesh sharma to clarify plans. 05/21/2021 - Dr Milner notes: The patient is stable. She has had some abnormal electrolytes and needs followup of CBC a nd BMP. I have discussed the patient's status with Surgery who plans of surgery on 05/15. Does not desire preoperative colonoscopy secondary to concerns o f possible exacerbating clinical picture. Per Dr barker She requires surgery for colonic stricture and o bstruction. She has chronic systolic heart failure d ue to HTN Heart disease and paroxysmal atrial fibrillation to boot. Her current LVEF and PAP wer e measurements during decompensation with emergency hypertension. Her function appears to be such th at she will tolerate general anesthesia and colon resection with reasonable r isk. She requires blood pressure control. I discussed her heart disease, management and th e risk of surgery with her daughter at the bedside today. Her risk was discussed with colorectal surgery t his afternoon. I recommended additional time for blood pressure and h eart failure control that will allow a reasonable, marginally increased risk of complic ation that is principally related to a recurrence of atrial fibrillation. 05/22/2021 - pt is doing well - Cardiology progress notes: She requires surger y for colonic stricture and obstruction. She has chronic systolic heart failure d ue to HTN Heart disease and paroxysmal atrial fibrillation to boot. Her current LVEF and PAP wer e measurements during decompensation with emergency hypertension. Her function appears to be such th at she will tolerate general anesthesia and colon resection with reasonable r isk. She requires blood pressure control. I discussed her heart disease, management and th e risk of surgery with her daughter at the bedside today. Her risk was discussed with colorectal surgery t his afternoon. I recommended additional time for blood pressure and h eart failure control that will allow a reasonable, marginally increased risk of complic ation that is principally related to a recurrence of atrial fibrillation. 4.7 She is uncomfortable and back on NG suction. I transitioned her Rx to minoxidil due to ineffective ness of amlodipine and inability to use nifedipine. The effectiveness of all may be impaired by her limited absorption. she needs to get Rx to the second part of the duodenum and may not be doing so. I will continue to try through the day. The alternative s are to shift to oral clonidine, short acting nife dipine every 4 hours and IV metoprolol. 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 She required labetalol twice during the day and the clonidine transition is made along with a shift to max dose of m inoxidil. The nifedipine consideration will wait for tomorrow and observation of at [facility] two doses of minoxidil. Her heart failure is not yet compensated but correction of severe hyperkalemia in incomplete. I will need to have BNP a nd xray tomorrow to zigzag appliquer the rapidity of additional K correction and diuresis that is necessary. 05/23/2021 -Per note- The patient apparently jenkins s not had any episodes of nausea or vomiting. She is tolerating clear liquids. Temperature is 36.7, pulse of 69, respirations o f 17, blood pressure 137/69. Glucose is 117. BNP is 857. The patient clinically is improved. She is not s howing evidence of obstructive picture. Cardiology assessment to de termine if the patient can proceed with a consideration for surgical resect ion. -Per Interventional Cardiology note- For dr Barker: HTN is well controlled. Pulse is regular and she is w/o c/o. For hemicolectomy on Tuesday. Continue Metoprolol, Losartan and Spironolactone . NGT IS REMOVED, TOLERATING CLEAR LIQUIDS. MONITO R CLINICAL PROGRESS. GENERAL ASSESSMENT: Large Colon Bowel obstruction with strictures -+Abd pain, no BM x 1 week -Colon and rectal surgery consult Dr Carlos Enrique Ma rk -Abd US -prn morphine and Zofran for pain and nausea con trol NGT in place medical management at this time continue to follow drainage and XR obstruction descending colon Dilated cardiomyopathy acute on chronic diastolic heart failure- improv ed Hypertensive heart disease LBBB Primary hypertension with hypertensive emergency paroxysmal atrial fibrillation Delirium vs decompensated dementia treated hyperthyroidism Plan BP control K correction and begin spironolactone amiodarone AF prophylaxis F/U echo and PAP measurement tuesday surgery delayed to tuesday No anticoagulation due to surgery necessity Constipation -MiraLAX twice daily as needed -Colace -GI following DM 2 -A1c -Accu-Chek with SSI HTN -Uncontrolled -236/144 per OSH -Improved with labetalol -prn labetalol clonidine patch 0.3 Thyroid disorder -TSH -Home medication Anxiety disorder -Continue home regimen DVT /GI ppx SCD/famotidine full code Physician: Pending clinical course -- OBJECTIVE -- VITALS (05/22 12:45 - 05/23 12:45): Temperature C: 36.8 (36.7 - 36.9) Temperature source: Oral Pulse Rate 66 (66 - 77) Respiratory rate: 17 (17 - 18) BP: 133/81 (101/61 - 152/81) I/Os (05/22 07:00 - 05/23 07:00): Net 120 Intake 120 -EXAM- GENERAL: Well developed, well nourished, in no a pparent distress. NECK: No masses, no thyromegaly, no abnormal cer vical nodes, trachea midline. LUNGS: Clear bilaterally with normal respiratory effort. ABDOMEN: distended, tympanic, well healed Keith incision and midline incision NEUROLOGICAL: No focal deficits, cranial nerves II-XII grossly intact, normal sensation, normal reflexes, normal coord ination, normal muscle strength, normal tone. PULSES: Pulses normal in all extremities. SKIN: Intact without significant lesions, or tai hes. LYMPH NODES: No significant cervical node adenop athy. No significant axillary node adenopathy. No significant ingui nal node adenopathy. -- DATA -- MEDICATIONS LOSARTAN POTASSIUM 50 MG PO Q12HR NITROGLYCERIN 1 PATCH TOPICAL DAILY ONDANSETRON HCL/PF 4 MG IV Q4H PRN ESCITALOPRAM 10 MG PO DAILY MIRTAZAPINE 15 MG PO BEDTIME MELATONIN 3 MG PO BEDTIME PRN INSULIN LISPRO 0 UNITS SUBQ Q6HR METOPROLOL TARTRATE 100 MG PO Q12HR ALPRAZolam 0.5 MG PO Q6H PRN (Held) AMIODARONE HCL with/in DEXTROSE 5%-WATER 300 MG IV DAILY ACETAMINOPHEN 650 MG PO Q6H PRN DEXTROSE 50%-WATER 25 ML IV ASDIR (PRN) DEXTROSE 5%-WATER 1000 ML IV .Q24H DOCUSATE SODIUM 100 MG PO BID methIMAzole 10 MG PO DAILY FLUTICASONE/VILANTEROL 1 PUFF INH RTDAILY GLUCAGON 1 MG IM ASDIR (PRN) SPIRONOLACTONE 25 MG PO DAILY LABETALOL HCL 20 MG IV Q4HR PRN minoxidiL 10 MG PO Q12HR LABS GLU BED (05/23/21 11:57) GLUBED 105 GLU BED (05/23/21 06:29) GLUBED 117 H GLU BED (05/23/21 00:08) GLUBED 116 H -- QUALITY -- -MEDICATIONS- - I attest that the foregoing medication list i n the medical record is true, accurate, and complete to the best of my knowled ge. -ADVANCED CARE PLAN >65- PATIENT HAS AN ADVANCE CARE PLAN: Yes -VTE PROPHYLAXIS -GENERAL- Yes -- ATTESTATION -- ADDITIONAL DETAIL: Time spent in Direct ,Counseling , Coordination of care ,Discharge planning : 33 minutes > 50% of time spent on Counseling/Care Coordinat ion Care activities / Care coordination: I have reviewed the history and repeated the wheat elements I have seen and examined this patient I have reviewed the progress in the clin ical course since the last examination I have discussed the patient's condition with ot her members of the care team Signed in PatientKeeper by Margi Holly MD on 0 05/23/21 at 18:56 Electronically Signed by Margi Holly MD on 11/05 at 1856 ATTENTION *EDITS and/or ADDENDA must be made in Patient Ke eper for this note. * * Edits and ammendments created in [employer] are not visible * * in Patient Keeper or the legal medical record (HPF). * RPT #: [id number] END OF REPORT 2021-05-23 12:24:00-00:00 [facility] ([facility]) Intervent. Card. Progress Note REPORT #: [id number] REPORT STATUS: Signed DATE: 05/23/21 TIME: 1224 PATIENT: CYNDI MONTAÑO UNIT #: [id number] ROOM #: P.[id number] BED: 1 : 51 AGE: 70 SEX: F ATTEND: Kt Holly MD ADM AUTHOR: Shane Graham MD ATTENTION *EDITS and/or ADDENDA must be made in Patient Ke eper for this note. * * Edits and ammendments created in [employer] are not visible * * in Patient Keeper or the legal medical record (HPF). * -- ASSESSMENT AND PLAN -- GENERAL ASSESSMENT: For dr Barker: HTN is well controlled. Pulse is regular and she is w/o c/o. For hemicolectomy on Tuesday. Continue Metoprolol, Losartan and Spironolactone . -- OBJECTIVE -- VITALS (05/22 12:24 - 05/23 12:24): Temperature C: 36.8 (36.7 - 36.9) Temperature source: Oral Pulse Rate 66 (66 - 77) Respiratory rate: 17 (17 - 18) BP: 133/81 (101/61 - 152/81) I/Os (05/22 07:00 - 05/23 07:00): Net 120 Intake 120 -- DATA -- MEDICATIONS LOSARTAN POTASSIUM 50 MG PO Q12HR NITROGLYCERIN 1 PATCH TOPICAL DAILY ONDANSETRON HCL/PF 4 MG IV Q4H PRN ESCITALOPRAM 10 MG PO DAILY MIRTAZAPINE 15 MG PO BEDTIME MELATONIN 3 MG PO BEDTIME PRN INSULIN LISPRO 0 UNITS SUBQ Q6HR METOPROLOL TARTRATE 100 MG PO Q12HR ALPRAZolam 0.5 MG PO Q6H PRN (Held) AMIODARONE HCL with/in DEXTROSE 5%-WATER 300 MG IV DAILY ACETAMINOPHEN 650 MG PO Q6H PRN DEXTROSE 50%-WATER 25 ML IV ASDIR (PRN) DEXTROSE 5%-WATER 1000 ML IV .Q24H DOCUSATE SODIUM 100 MG PO BID methIMAzole 10 MG PO DAILY FLUTICASONE/VILANTEROL 1 PUFF INH RTDAILY GLUCAGON 1 MG IM ASDIR (PRN) SPIRONOLACTONE 25 MG PO DAILY LABETALOL HCL 20 MG IV Q4HR PRN minoxidiL 10 MG PO Q12HR LABS GLU BED (05/23/21 06:29) GLUBED 117 H GLU BED (05/23/21 00:08) GLUBED 116 H Signed in PatientKeeper by Shane Graham MD on 05/23/21 at 12:29 Electronically Signed by Shane Graham MD o n 05/23/21 at 1229 ATTENTION *EDITS and/or ADDENDA must be made in Patient Ke eper for this note. * * Edits and ammendments created in [facility] are not visible * * in Patient Keeper or the legal medical record (HPF). * [facility] #: [id number] END OF REPORT 2021-05-23 11:05:00-00:00 [id number] [facility] [address] [place] [address] PATIENT NAME: CYNDI MONTAÑO ADMIT DATE: 05/17/21 ACCOUNT NO: [id number] ROOM NO: [id number] AGE: 70 REPORT TYPE: PROGRESS NOTE SEX: F ADMITTING PHYSICIAN:Kt Holly MD ATTENDING PHYSICIAN:Kt Holly MD DATE: 05/23/2021 PROGRESS NOTE PROBLEM: Abnormal sigmoid colon. SUBJECTIVE: The patient apparently has not had a ny episodes of nausea or vomiting. She is tolerating clear liquids. OBJECTIVE: VITAL SIGNS: Temperature is 36.7, pulse of 69, r espirations of 17, blood pressure 137/69. GENERAL: The patient is alert, no acute distress . ABDOMEN: Soft and nontender. No guarding. LABORATORY STUDIES: Glucose is 117. BNP is 857. ASSESSMENT: The patient clinically is im proved. She is not showing evidence of obstructive picture. Cardiology assessment to de termine if the patient can proceed with a consideration for surgical resect ion. PLAN: DIAGNOSTIC: None further at this time. We would advise colonoscopy within the next 6 months after postoperative status. PATIENT EDUCATION: The patient advised of the ab ove. Dictated By: Antony Milner Jr, MD WT: PN:LEONORA/VIRIDIANA/DEBI Conf#: [id number]/DID#: [id number] Authenticated by Antony Milner MD On 07:08:16 AM at 0708 PATIENT NAME: CYNDI MONTAÑO 665 2021-05-22 11:34:00-00:00 [facility] ([facility]) Family Medicine Progress Note REPORT #: [id number] REPORT STATUS: Signed DATE: 05/22/21 TIME: 1134 PATIENT: CYNDI MONTAÑO UNIT #: [id number] ROOM #: P.[id number] BED: 1 : 51 AGE: 70 SEX: F ATTEND: Kt Holly MD ADM AUTHOR: Margi Holly MD ATTENTION *EDITS and/or ADDENDA must be made in Patient Vazquez valdez for this note. * * Edits and ammendments created in [employer] are not visible * * in Patient Keeper or the legal medical record (HPF). * -- ASSESSMENT AND PLAN -- HOSPITAL COURSE TO DATE: The patient is a 70-year-old female with a past medical history of anxiety, DM 2, HTN, migraines, thyroid problem, and TIA who presents originally to outside hospital with a chief complaint of abdominal kenny n x1 week with no bowel movement x1 week and worsening abdominal distent ion/mass. Outside hospital presentation found patient h ypertensive BP 235/144, tachycardic 121, tachypneic 22, Temp 98.6 degrees Fahren heit, a pain scale 7/10 CT abdomen and pelvics with large bowel obstruction at the junction of desce nding and sigmoid:: Bowel obstruction. 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 Patient states she had bowel movement at th e facility yesterday though remains mildly distended with mild discomfort bu t currently reports feeling better. 05/19/2021 - Pt is confused during the night and actually p ulled out her NgT - - Recommend cardiac evaluation due to hx of CH F and possible pulmonary HTN. May benefit from preop echo Dr. Barker consulted and Echo ordered. - Genral surgery consult: PT with partial obstru ction of the colon, NGT was draining brown fluid yesterd ay, she pulled it out and now is nauseated. I think that in order to prevent vom iting and aspiration, replacing an NGT is needed as the obstruction is not resolved yet. She will get cardiac evaluation today and she will be safer to travel with an NGT in place . KUB to follow after placement. Surgical plans after cardiac evaluati on is completed. - NPO for now. ABD/PELVIS CT notes: 1. Abnormal dilation of col onic loops followed to the sigmoid colon where there is a 5 cm section of narrowing which may represent sequelae of diverticulitis although underlying l esion is not excluded. There is also dilation of small bowel loops. 2. Mild dependent atelectasis versus pneumonitis . 3. Cardiomegaly and pulmonary venous hypertensio n. 4. Adrenal hyperplasia versus adenomatosis. 5. Nonspecific small free pelvic fluid. Uterus i s surgically absent. - Abd x ray suggest improvement in constipation 05/20/21: As per Dr. milner note: The patient indicates that she is not having any abdominal pain. She has not had any nausea or vomiting. Her NG t ube is out. The patient's bowel obstruction related to the s igmoid colon area has resolved. The patient is clinically improved . Blood pressure is under better control. The patient's obstructive picture has re solved. Blood pressure is under better control. Proceeding with surgical intervention w ould be advised if cardiology is on board. Question whether a preoperative col onoscopy would be dictated by surgery. We will anticipate interacting with mukesh sharma to clarify plans. 05/21/2021 - Dr Milner notes: The patient is stable. She has had some abnormal electrolytes and needs followup of CBC a nd BMP. I have discussed the patient's status with Surgery who plans of surgery on 05/15. Does not desire preoperative colonoscopy secondary to concerns o f possible exacerbating clinical picture. Per Dr barker She requires surgery for colonic stricture and o bstruction. She has chronic systolic heart failure d ue to HTN Heart disease and paroxysmal atrial fibrillation to boot. Her current LVEF and PAP wer e measurements during decompensation with emergency hypertension. Her function appears to be such th at she will tolerate general anesthesia and colon resection with reasonable r isk. She requires blood pressure control. I discussed her heart disease, management and th e risk of surgery with her daughter at the bedside today. Her risk was discussed with colorectal surgery t his afternoon. I recommended additional time for blood pressure and h eart failure control that will allow a reasonable, marginally increased risk of complic ation that is principally related to a recurrence of atrial fibrillation. 05/22/2021 - pt is doing well - Cardiology progress notes: She requires surger y for colonic stricture and obstruction. She has chronic systolic heart failure d ue to HTN Heart disease and paroxysmal atrial fibrillation to boot. Her current LVEF and PAP wer e measurements during decompensation with emergency hypertension. Her function appears to be such th at she will tolerate general anesthesia and colon resection with reasonable r isk. She requires blood pressure control. I discussed her heart disease, management and th e risk of surgery with her daughter at the bedside today. Her risk was discussed with colorectal surgery t his afternoon. I recommended additional time for blood pressure and h eart failure control that will allow a reasonable, marginally increased risk of complic ation that is principally related to a recurrence of atrial fibrillation. 4.7 She is uncomfortable and back on NG suction. I transitioned her Rx to minoxidil due to ineffective ness of amlodipine and inability to use nifedipine. The effectiveness of all may be impaired by her limited absorption. she needs to get Rx to the second part of the duodenum and may not be doing so. I will continue to try through the day. The alternative s are to shift to oral clonidine, short acting nife dipine every 4 hours and IV metoprolol. 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 She required labetalol twice during the day and the clonidine transition is made along with a shift to max dose of m inoxidil. The nifedipine consideration will wait for tomorrow and observation of at [facility] st two doses of minoxidil. Her heart failure is not yet compensated but correction of severe hyperkalemia in incomplete. I will need to have BNP a nd xray tomorrow to zigzag appliquer the rapidity of additional K correction and diuresis that is necessary. GENERAL ASSESSMENT: Large Colon Bowel obstruction with strictures -+Abd pain, no BM x 1 week -Colon and rectal surgery consult Dr Monaco, Gloria rk -Abd US -prn morphine and Zofran for pain and nausea con trol NGT in place medical management at this time continue to follow drainage and XR obstruction descending colon Dilated cardiomyopathy acute on chronic diastolic heart failure- improv ed Hypertensive heart disease LBBB Primary hypertension with hypertensive emergency paroxysmal atrial fibrillation Delirium vs decompensated dementia treated hyperthyroidism Plan BP control K correction and begin spironolactone amiodarone AF prophylaxis F/U echo and PAP measurement tuesday surgery delayed to tuesday No anticoagulation due to surgery necessity Constipation -MiraLAX twice daily as needed -Colace -GI following DM 2 -A1c -Accu-Chek with SSI HTN -Uncontrolled -236/144 per OSH -Improved with labetalol -prn labetalol clonidine patch 0.3 Thyroid disorder -TSH -Home medication Anxiety disorder -Continue home regimen DVT /GI ppx SCD/famotidine full code Physician: Pending clinical course -- OBJECTIVE -- VITALS (05/21 11:34 - 05/22 11:34): Temperature C: 37.1 (36.5 - 37.1) Temperature source: Oral Pulse Rate 88 (58 - 88) Respiratory rate: 19 (18 - 20) BP: 173/102 (163/78 - 202/120) I/Os (05/21 07:00 - 05/22 07:00): Net -1,450 Output 1,450 -EXAM- GENERAL: Well developed, well nourished, in no a pparent distress. NECK: No masses, no thyromegaly, no abnormal cer vical nodes, trachea midline. LUNGS: Clear bilaterally with normal respirator y effort. ABDOMEN: distended, tympanic, well healed Keith incision and midline incision NEUROLOGICAL: No focal deficits, cranial nerves II-XII grossly intact, normal sensation, normal reflexes, normal coord ination, normal muscle strength, normal tone. PULSES: Pulses normal in all extremities. SKIN: Intact without significant lesions, or tai hes. LYMPH NODES: No significant cervical node adenop athy. No significant axillary node adenopathy. No significant inguin al node adenopathy. -- DATA -- MEDICATIONS NITROGLYCERIN 1 PATCH TOPICAL DAILY ONDANSETRON HCL/PF 4 MG IV Q4H PRN ESCITALOPRAM 10 MG PO DAILY ACETAMINOPHEN 650 MG PO Q6H PRN methIMAzole 10 MG PO DAILY FLUTICASONE/VILANTEROL 1 PUFF INH RTDAILY GLUCAGON 1 MG IM ASDIR (PRN) SPIRONOLACTONE 25 MG PO DAILY minoxidiL 10 MG PO Q12HR LOSARTAN POTASSIUM 50 MG PO Q12HR MIRTAZAPINE 15 MG PO BEDTIME POTASSIUM CHLORIDE 20 MEQ IV Q2H MELATONIN 3 MG PO BEDTIME PRN INSULIN LISPRO 0 UNITS SUBQ Q6HR METOPROLOL TARTRATE 100 MG PO Q12HR ALPRAZolam 0.5 MG PO Q6H PRN AMIODARONE HCL with/in DEXTROSE 5%-WATER 300 MG IV DAILY DEXTROSE 50%-WATER 25 ML IV ASDIR (PRN) DEXTROSE 5%-WATER 1000 ML IV .Q24H DOCUSATE SODIUM 100 MG PO BID LABETALOL HCL 20 MG IV Q4HR PRN cloNIDine HCL 0.2 MG PO Q8HR MAGNESIUM SULFATE 2 GM IV ONCE LABS BNP (05/22/21 06:23) B-TYPE NATRIURETIC PEPTIDE 857 H BASIC METABOLIC PANEL (05/22/21 06:23) SODIUM 137 POTASSIUM 3.3L L CHLORIDE 92L L CARBON DIOXIDE 34H H GLUCOSE 178H H BLOOD UREA NITROGEN 11 GLOMERULAR FILTRATION RATE >=60 max estimate CREATININE 0.70 CALCIUM 8.0 L GLU BED (05/22/21 00:18) GLUBED 155 H GLU BED (05/21/21 16:59) GLUBED 170 H GLU BED (05/21/21 12:03) GLUBED 153 H -- QUALITY -- -ADVANCED CARE PLAN >65- PATIENT HAS AN ADVANCE CARE PLAN: Yes -VTE PROPHYLAXIS -GENERAL- Yes -- ATTESTATION -- ADDITIONAL DETAIL: Time spent in Direct ,Counseling , Coordination of care ,Discharge planning : 33 minutes > 50% of time spent on Counseling/Care Coordinat ion Care activities / Care coordination: I have reviewed the history and repeated the wheat elements I have seen and examined this patient I have reviewed the progress in the clin ical course since the last examination I have discussed the patient's condition with ot her members of the care team Signed in PatientKeeper by Margi Holly MD on 0 05/22/21 at 18:47 Electronically Signed by Margi Holly MD on 10/05 at 1847 ATTENTION *EDITS and/or ADDENDA must be made in Patient Ke eper for this note. * * Edits and ammendments created in [facility] are not visible * * in Patient Keeper or the legal medical record (HPF). * RPT #: [id number] END OF REPORT 2021-05-22 11:11:00-00:00 [facility] ([facility]) Colorectal Surgery Prog Note REPORT#:[id number] REPORT STATUS: Signed DATE:05/22/21 TIME: 1111 PATIENT: CYNDI MONTAÑO UNIT #: [id number] ROOM: [facility] BED: 1 : 51 AGE: 70 SEX: F ATTEND: Kt Holly MD ADM AUTHOR: Yomi Yadav DO * ALL edits or amendments must be made on the el ectronic/computer document * Diagnosis, Assessment Plan Free Text A P: 70 yo F w Large Bowel Obstruction - having several bowel movements last 24 hrs fee ls less distended - ng output not recorded - appears clearer - cardiology consult appreciated - await ing cardiac optimization in setting of Right Heart Failure/PH - agree with ICU admission f or proper optimization and BP control, and will need postop ICU care as well - tentatively planning surge ry for tuesday - laparoscopic/possible open colectomy /possible colostomy. - will discuss with family - clear liquids ok at 1114 RPT #:[id number] END OF REPORT 2021-05-22 10:18:00-00:00 [facility] ([facility]) Cardiology Progress Notes REPORT #: [id number] REPORT STATUS: Signed DATE: 05/22/21 TIME: 1018 PATIENT: CYNDI MONTAÑO UNIT #: [id number] ROOM #: [facility] BED: 1 : 51 AGE: 70 SEX: F ATTEND: Kt Holly MD ADM AUTHOR: Ashanti Barker MD ATTENTION *EDITS and/or ADDENDA must be made in Patient Ke eper for this note. * * Edits and ammendments created in [employer] are not visible * * in Patient Keeper or the legal medical record (HPF). * -- ASSESSMENT AND PLAN -- GENERAL ASSESSMENT: The attempt to control her blood pressure with o ral Rx is floundering badly. She has colonic obstruction and after NG clamp o r oral Rx, a large residual, feculent material and almost certainly h er medications come out through the NG suction. She also has hypoka lemic alkalosis, partly due to suction. In order to have her optimally controlled for surgery, I nee d K correction, diuresis and blood pressure control. This is simply n ot possible without more intense care: IV Cardene/metoporolol, K co rrection, acetazolamide/furosemide at least once. I reviewed our predicament with Dr. Kent thi s morning and she will hopefully move to ICU today. Once on IV Rx, we c an stop oral, whose effectiveness is minimal thus far. Dx Hypokalemic alkalosis hypertensive emergency obstruction descending colon Dilated cardiomyopathy acute on chronic diastolic heart failure- improv ed Hypertensive heart disease LBBB Primary hypertension paroxysmal atrial fibrillation Decompensated dementia treated hyperthyroidism Plan Transfer to ICU for IV blood pressure control, K correction and diuresis. amiodarone AF prophylaxis- change to IV daily do sing, 300 mg. F/U echo and PAP measurement Tuesday surgery delayed to tuesday No anticoagulation due to surgery necessity Ashanti Barker [phone] -- SUBJECTIVE -- CHIEF COMPLAINT: 70 woman who requires laparotomy has a history o f pulmonary hypertension. -REVIEW OF SYSTEMS- COMMENT: 4.6 She requires surgery for colonic s tricture and obstruction. She has chronic systolic heart failure due to H TN Heart disease and paroxysmal atrial fibrillation to boot. Her current LVEF and PAP were measurements duri ng decompensation with emergency hypertension. Her function appears to be such that she will tolerate gener al anesthesia and colon resection with reasonable risk. She requires blood pressure control. I discussed her heart disease, management and t he risk of surgery with her daughter at the bedside today. Her risk was discussed with colorectal surgery this afternoon. I recommended additional time for bl ood pressure and heart failure control that will allow a hilario sonable, marginally increased risk of complication that is principally related to a recurrence of atrial fibrillation. 4.7 She is uncomfortable and back on NG suction . I transitioned her Rx to minoxidil due to ineffec tiveness of amlodipine and inability to use nifedipine. The effectiveness of all may be impaired by her curtis ited absorption. she needs to get Rx to the second p art of the duodenum and may not be doing so. I will contin ue to try through the day. The alternatives are to shift to oral clonidine, short acting nifedipine every 4 hour s and IV metoprolol. This option will be rather work int ensive for nursing. She required labetalol twice during the day and the clonidine transition is made along with a shift to max dose of minoxidil. The nifedipine consideration will wait for tomorrow and observation of at least two doses of minoxidil. Her heart failure is not yet compensated but co rrection of severe hyperkalemia in incomplete. I will need to have BNP and xray tomorrow to zigzag appliquer the rapidity of mary jane tional K correction and diuresis that is necessary. -- OBJECTIVE -- VITALS (05/21 10:18 - 05/22 10:18): Temperature C: 37.1 (36.5 - 37.1) Temperature source: Oral Pulse Rate 88 (58 - 88) Respiratory rate: 19 (17 - 20) BP: 173/102 (163/78 - 202/120) I/Os (05/21 07:00 - 05/22 07:00): Net -1,450 Output 1,450 -EXAM- OTHER: General: Normal appearing adult in bed comfortable HNT: normal head anatomy. normal sclerae, pupils are equal and normal. normal oral mucosae. Normal externa l ears and hair distribution. Neck: No lymphadenopathy or mass. airway midline with thyroid normal Chest: Chest wall is normal. Excursion is limite. Gertrude th sounds have bibasilar rales. Expiratory phase is normal. Wheezes are absent. Back: + kyphosis. No scoliosis. No tenderness. Cardiovascular: Rhythm is regular JVP 8cm HJR+ Pulses PMI Valve sounds The first sound is normal. The second sound is normally split Murmur There is no murmur Filling sound filling sound is not audible today Abdomen The abdomen is obese. epigastric, RUQ (70-80's choley), supraumb inf umb scars. There is no pa lpable organomegaly. the wall is soft. Bowel sounds ar e present. Extrem. There is no edema. Skin There is no rash Neuro Oriented to person and time. confused but unchanged Psych cooperative -- DATA -- MEDICATIONS NITROGLYCERIN 1 PATCH TOPICAL DAILY ONDANSETRON HCL/PF 4 MG IV Q4H PRN ESCITALOPRAM 10 MG PO DAILY ACETAMINOPHEN 650 MG PO Q6H PRN methIMAzole 10 MG PO DAILY FLUTICASONE/VILANTEROL 1 PUFF INH RTDAILY GLUCAGON 1 MG IM ASDIR (PRN) SPIRONOLACTONE 25 MG PO DAILY minoxidiL 10 MG PO Q12HR LOSARTAN POTASSIUM 50 MG PO Q12HR MIRTAZAPINE 15 MG PO BEDTIME MELATONIN 3 MG PO BEDTIME PRN INSULIN LISPRO 0 UNITS SUBQ Q6HR METOPROLOL TARTRATE 100 MG PO Q12HR ALPRAZolam 0.5 MG PO Q6H PRN DEXTROSE 50%-WATER 25 ML IV ASDIR (PRN) DEXTROSE 5%-WATER 1000 ML IV .Q24H DOCUSATE SODIUM 100 MG PO BID LABETALOL HCL 20 MG IV Q4HR PRN cloNIDine HCL 0.2 MG PO Q8HR MAGNESIUM SULFATE 2 GM IV ONCE LABS BNP (05/22/21 06:23) B-TYPE NATRIURETIC PEPTIDE 857 H BASIC METABOLIC PANEL (05/22/21 06:23) SODIUM 137 POTASSIUM 3.3L L CHLORIDE 92L L CARBON DIOXIDE 34H H GLUCOSE 178H H BLOOD UREA NITROGEN 11 GLOMERULAR FILTRATION RATE >=60 max estimate CREATININE 0.70 CALCIUM 8.0 L GLU BED (05/22/21 00:18) GLUBED 155 H GLU BED (05/21/21 16:59) GLUBED 170 H GLU BED (05/21/21 12:03) GLUBED 153 H ADDITIONAL COMMENTS: I have reviewed telemetry, laboratory testing an d imaging studies. Synthesis and notation is included in the final assessment . Signed in PatientKeeper by Ashanti Barker MD on 05/22/21 at 10:25 at 1025 ATTENTION *EDITS and/or ADDENDA must be made in Patient Ke eper for this note. * * Edits and ammendments created in GreenBytes are not visible * * in Patient Keeper or the legal medical record (HPF). * [facility] #: [id number] END OF REPORT 2021-05-22 06:58:00-00:00 [id number] [facility] [address] [place] [address] PATIENT NAME: CYNDI MONTAÑO ADMIT DATE: 05/17/21 ACCOUNT NO: [id number] ROOM NO: [id number] AGE: 70 REPORT TYPE: PROGRESS NOTE SEX: F ADMITTING PHYSICIAN:Kt Holly MD ATTENDING PHYSICIAN:Kt Holly MD DATE: 05/22/2021 PROGRESS NOTE PROBLEM: Sigmoid colon stricture. SUBJECTIVE: The patient indicates she is nauseat ed. She, however, is not having any abdominal pain. There has been no sig nificant output from her NG tube. OBJECTIVE: VITAL SIGNS: Temperature is 37.1, pulse of 58, r espirations of 18, blood pressure is 169/91. GENERAL: The patient is alert and responsive, so mewhat confused, no distress. ABDOMEN: Obese, but soft and nontender. No guard ing. No rebound. NG tube more bloody drainage. ASSESSMENT: The patient is clinically st able. It would appear that her sigmoid colon obstruction has resolved. We would doubt n eed for ongoing NG tube placement. It is of note, the patient's daughter apparently strongly refuses patient to undergo surgery of her colon. PLAN: DIAGNOSTIC: We will periodic ally follow up laboratory studies including CBC and BMP. Studies today are pending. THERAPEUTIC: We would consider clamping or disco ntinuing NG tube, placed the patient on clear liquid diet and monitor. PATIENT EDUCATION: Discussed with the patient's nurse. Dictated By: Antony Milner Jr, MD WT: PN:LEONORA/VIRIDIANA/DEBI Conf#: [id number]/DID#: [id number] Authenticated by Antony Milner MD On 07:08:11 AM PATIENT NAME: CYNDI MONTAÑO 665 at 0708 PATIENT NAME: CYNDI MONTAÑO 665 2021-05-21 20:03:00-00:00 [facility] ([facility]) Cardiology Progress Notes REPORT #: [id number] REPORT STATUS: Signed DATE: 05/21/21 TIME: 2002 PATIENT: CYNDI MONTAÑO UNIT #: [id number] ROOM #: P.0635 BED: 1 : 51 AGE: 70 SEX: F ATTEND: Kt Holly MD ADM AUTHOR: Ashanti Barker ATTENTION *EDITS and/or ADDENDA must be made in Patient [facility] for this note. * * Edits and ammendments created in GreenBytes are not visible * * in Patient Keeper or the legal medical record (HPF). * -- ASSESSMENT AND PLAN -- GENERAL ASSESSMENT: She is uncomfortable and shanel k on NG suction. I transitioned her Rx to minoxidil due to ineffectiveness of amlodipine and inabili ty to use nifedipine. The effectiveness of all may be impaired by her limi max absorption. she needs to get Rx to the second part of the duodenum and ma y not be doing so. I will continue to try through the day. The alternative s are to shift to oral clonidine, short acting nife dipine every 4 hours and IV metoprolol. 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 She required labetalol twice during the day and the clonidine transition is made along with a shift to max dose of m inoxidil. The nifedipine consideration will wait for tomorrow and observation of at christina st two doses of minoxidil. Her heart failure is not yet compensated but correction of severe hyperkalemia in incomplete. I will need to have BNP a nd xray tomorrow to zigzag appliquer the rapidity of additional K correction and diuresis that is necessary. Dx Hypokalemia hypertensive emergency obstruction descending colon Dilated cardiomyopathy acute on chronic diastolic heart failure- improv ed Hypertensive heart disease LBBB Primary hypertension paroxysmal atrial fibrillation Decompensated dementia treated hyperthyroidism Plan Titrated minoxidil K correction and continue spironolactone amiodarone AF prophylaxis F/U echo and PAP measurement tuesday surgery delayed to tuesday No anticoagulation due to surgery necessity Ashanti Barker [phone] -- SUBJECTIVE -- CHIEF COMPLAINT: 70 woman who requires laparotomy has a history o f pulmonary hypertension. -REVIEW OF SYSTEMS- COMMENT: 4.6 She requires surgery for colonic st ricture and obstruction. She has chronic systolic heart failure due to H TN Heart disease and paroxysmal atrial fibrillation to b oot. Her current LVEF and PAP were measurements dur ing decompensation with emergency hypertension. Her function appears to be such that she will tolerate gener al anesthesia and colon resection with reasonable risk. She requires blood pressure control. I discussed her heart disease, management and t he risk of surgery with her daughter at the bedside today. Her risk was discussed with colorectal surgery this afternoon. I recommended additional time for b lood pressure and heart failure control that will allow a hilario sonable, marginally increased risk of complication that is principally related to a recurrence of atrial f ibrillation. -- OBJECTIVE -- VITALS (05/20 20:03 - 05/21 20:03): Temperature C: 36.8 (36.5 - 36.9) Temperature source: Oral Pulse Rate 80 (74 - 90) Respiratory rate: 20 (17 - 20) BP: 163/90 (163/78 - 207/120) I/Os (05/20 07:00 - 05/21 07:00): Net 760.00 Intake 1,060.00 Output 300 -EXAM- OTHER: General: Normal appearing adult in bed comfortable HNT: normal head anatomy. normal sclerae, pupils are equal and normal. normal oral mucosae. Normal externa l ears and hair distribution. Neck: No lymphadenopathy or mass. airway midline with thyroid normal Chest: Chest wall is normal. Excursion is limite. Davin th sounds have bibasilar rales. Expiratory phase is normal. Wheezes are absent. Back: + kyphosis. No scoliosis. No tenderness. Cardiovascular: Rhythm is regular JVP a=v waveform at 12 cm water with HJR Pulses Carotid pulses are normal without bruit Radial pulses are normal without subclavian bruit Foot pulses are 4x2 PMI The PMI is sustained and leftl. RV action is impalpable. Valve sounds The first sound is normal. The second sound is normally split Murmur There is no murmur Filling sound A summation filling sound is present Abdomen The abdomen is obese. epigastric, RUQ (70-80's choley), supraumb inf umb scars. There is no pa lpable organomegaly. the wall is soft. Bowel sounds ar e present. Extrem. Joints are normal. There is no edema. There is no adenopathy. Skin There is no rash or skin change. Varices are ab sent. Normal skin texture. Neuro In a limited exam, there is no limb weakness. Oriented to person and time. No disturbance of equilibrium is apparent. Speech and understandi ng are normal. 0/3 immediate. She has no insight into illness and is not certain where she is. Psych cooperative -- DATA -- MEDICATIONS NITROGLYCERIN 1 PATCH TOPICAL DAILY ONDANSETRON HCL/PF 4 MG IV Q4H PRN ESCITALOPRAM 10 MG PO DAILY ACETAMINOPHEN 650 MG PO Q6H PRN methIMAzole 10 MG PO DAILY FLUTICASONE/VILANTEROL 1 PUFF INH RTDAILY GLUCAGON 1 MG IM ASDIR (PRN) SPIRONOLACTONE 25 MG PO DAILY minoxidiL 10 MG PO Q12HR LOSARTAN POTASSIUM 50 MG PO Q12HR POTASSIUM CHLORIDE 20 MEQ IV Q2H MIRTAZAPINE 15 MG PO BEDTIME MELATONIN 3 MG PO BEDTIME PRN INSULIN LISPRO 0 UNITS SUBQ Q6HR METOPROLOL TARTRATE 100 MG PO Q12HR ALPRAZolam 0.5 MG PO Q6H PRN DEXTROSE 50%-WATER 25 ML IV ASDIR (PRN) DEXTROSE 5%-WATER 1000 ML IV .Q24H DOCUSATE SODIUM 100 MG PO BID LABETALOL HCL 20 MG IV Q4HR PRN cloNIDine HCL 0.2 MG PO Q8HR LABS GLU BED (05/21/21 16:59) GLUBED 170 H GLU BED (05/21/21 12:03) GLUBED 153 H MAG (05/21/21 10:01) MAGNESIUM 1.5 L BASIC METABOLIC PANEL (05/21/21 10:01) SODIUM 138 POTASSIUM 2.6L L CHLORIDE 94L L CARBON DIOXIDE 32H H GLUCOSE 173H H BLOOD UREA NITROGEN 8L L GLOMERULAR FILTRATION RATE >=60 max estimate CREATININE 0.60 CALCIUM 7.4 D L GLU BED (05/21/21 07:13) GLUBED 140 H GLU BED (05/21/21 00:54) GLUBED 118 H ADDITIONAL COMMENTS: I have reviewed telemetry, laboratory testing an d imaging studies. Synthesis and notation is included in the final assessment . -- ATTESTATION -- ADDITIONAL DETAIL: The patient has emergency hypertension with an a ttendant high probability of imminent or life-threatening deterioration. A total of 50 minutes were spent in discussion with other caregivers, examination of patient, ordering and performing treatments, inter ventions, laboratory studies, radiographic studies, and in re-evaluation of patient's condition in o rder to prevent or treat life-threatening deterioration. This was exclusi ve of separately billable procedures and treating other patients. I was no t taking over care for this patient from another provider. Signed in PatientKeeper by Ashanti Barker MD on 05/21/21 at 20:13 at 2013 ATTENTION *EDITS and/or ADDENDA must be made in Patient [facility] for this note. * * Edits and ammendments created in GreenBytes are not visible * * in Patient Keeper or the legal medical record ([facility]). * RPT #: [id number] END OF REPORT 2021-05-21 13:37:00-00:00 [facility] ([facility]) Family Medicine Progress Note REPORT #: [id number] REPORT STATUS: Signed DATE: 05/21/21 TIME: 1336 PATIENT: CYNDI MONTAÑO UNIT #: [id number] ROOM #: P.0635 BED: 1 : 51 AGE: 70 SEX: F ATTEND: Kt Holly MD ADM AUTHOR: Margi Holly MD ATTENTION *EDITS and/or ADDENDA must be made in Patient [facility] for this note. * * Edits and ammendments created in GreenBytes are not visible * * in Patient Keeper or the legal medical record (HPF). * -- ASSESSMENT AND PLAN -- HOSPITAL COURSE TO DATE: The patient is a 70-year-old female with a past medical history of anxiety, DM 2, HTN, migraines, thyroid problem, and TIA who presents originally to outside hospital with a chief complaint of abdominal kenny n x1 week with no bowel movement x1 week and worsening abdominal distent ion/mass. Outside hospital presentation found patient h ypertensive BP 235/144, tachycardic 121, tachypneic 22, Temp 98.6 degrees Fahren heit, a pain scale 7/10 CT abdomen and pelvics with large bowel obstruction at the junction of desce nding and sigmoid:: Bowel obstruction. 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 Patient states she had bowel movement at th e facility yesterday though remains mildly distended with mild discomfort bu t currently reports feeling better. 05/19/2021 - Pt is confused during the night and actually p ulled out her NgT - - Recommend cardiac evaluation due to hx of CH F and possible pulmonary HTN. May benefit from preop echo Dr. Barker consulted and Echo ordered. - Genral surgery consult: PT with partial obstru ction of the colon, NGT was draining brown fluid yesterd ay, she pulled it out and now is nauseated. I think that in order to prevent vom iting and aspiration, replacing an NGT is needed as the obstruction is not resolved yet. She will get cardiac evaluation today and she will be safer to travel with an NGT in place . KUB to follow after placement. Surgical plans after cardiac evaluati on is completed. - NPO for now. ABD/PELVIS CT notes: 1. Abnormal dilation of col onic loops followed to the sigmoid colon where there is a 5 cm section of narrowing which may represent sequelae of diverticulitis although underlying l esion is not excluded. There is also dilation of small bowel loops. 2. Mild dependent atelectasis versus pneumonitis . 3. Cardiomegaly and pulmonary venous hypertensio n. 4. Adrenal hyperplasia versus adenomatosis. 5. Nonspecific small free pelvic fluid. Uterus i s surgically absent. - Abd x ray suggest improvement in constipation 05/20/21: As per Dr. milner note: The patient indicates that she is not having any abdominal pain. She has not had any nausea or vomiting. Her NG t ube is out. The patient's bowel obstruction related to the s igmoid colon area has resolved. The patient is clinically improved . Blood pressure is under better control. The patient's obstructive picture has re solved. Blood pressure is under better control. Proceeding with surgical intervention w ould be advised if cardiology is on board. Question whether a preoperative col onoscopy would be dictated by surgery. We will anticipate interacting with mukesh sharma to clarify plans. 05/21/2021 - Dr Milner notes: The patient is stable. She has had some abnormal electrolytes and needs followup of CBC a nd BMP. I have discussed the patient's status with Surgery who plans of surgery on 05/15. Does not desire preoperative colonoscopy secondary to concerns o f possible exacerbating clinical picture. Per Dr barker She requires surgery for colonic stricture and o bstruction. She has chronic systolic heart failure d ue to HTN Heart disease and paroxysmal atrial fibrillation to boot. Her current LVEF and PAP wer e measurements during decompensation with emergency hypertension. Her function appears to be such th at she will tolerate general anesthesia and colon resection with reasonable r isk. She requires blood pressure control. I discussed her heart disease, management and th e risk of surgery with her daughter at the bedside today. Her risk was discussed with colorectal surgery t his afternoon. I recommended additional time for blood pressure and h eart failure control that will allow a reasonable, marginally increased risk of complic ation that is principally related to a recurrence of atrial fibrillation. GENERAL ASSESSMENT: Large Colon Bowel obstruction with strictures -+Abd pain, no BM x 1 week -Colon and rectal surgery consult Dr Monaco, Gloria rk -Abd US -prn morphine and Zofran for pain and nausea con trol NGT in place medical management at this time continue to follow drainage and XR obstruction descending colon Dilated cardiomyopathy acute on chronic diastolic heart failure- improv ed Hypertensive heart disease LBBB Primary hypertension with hypertensive emergency paroxysmal atrial fibrillation Delirium vs decompensated dementia treated hyperthyroidism Plan BP control K correction and begin spironolactone amiodarone AF prophylaxis F/U echo and PAP measurement tuesday surgery delayed to tuesday No anticoagulation due to surgery necessity Constipation -MiraLAX twice daily as needed -Colace -GI following DM 2 -A1c -Accu-Chek with SSI HTN -Uncontrolled -236/144 per OSH -Improved with labetalol -prn labetalol clonidine patch 0.3 Thyroid disorder -TSH -Home medication Anxiety disorder -Continue home regimen DVT /GI ppx SCD/famotidine full code Physician: Pending clinical course -- OBJECTIVE -- VITALS (05/20 13:38 - 05/21 13:38): Temperature C: 36.5 (36.5 - 36.9) Temperature source: Oral Pulse Rate 77 (74 - 92) Respiratory rate: 17 (16 - 20) BP: 178/99 (174/82 - 207/107) I/Os (05/20 07:00 - 05/21 07:00): Net 760.00 Intake 1,060.00 Output 300 -EXAM- GENERAL: Well developed, well nourished, in no a pparent distress. NECK: No masses, no thyromegaly, no abnormal cer vical nodes, trachea midline. LUNGS: Clear bilaterally with normal respiratory effort. ABDOMEN: distended, tympanic, well healed Keith incision and midline incision NEUROLOGICAL: No focal deficits, cranial nerves II-XII grossly intact, normal sensation, normal reflexes, normal coord ination, normal muscle strength, normal tone. PULSES: Pulses normal in all extremities. SKIN: Intact without significant lesions, or tai hes. LYMPH NODES: No significant cervical node adenop athy. No significant axillary node adenopathy. No significant inguin al node adenopathy. -- DATA -- MEDICATIONS NITROGLYCERIN 1 PATCH TOPICAL DAILY ONDANSETRON HCL/PF 4 MG IV Q4H PRN ESCITALOPRAM 10 MG PO DAILY hydrALAZINE HCL 10 MG IV Q6H PRN ACETAMINOPHEN 650 MG PO Q6H PRN cloNIDine HCL 0.3 MG TOPICAL Q7D methIMAzole 10 MG PO DAILY FLUTICASONE/VILANTEROL 1 PUFF INH RTDAILY GLUCAGON 1 MG IM ASDIR (PRN) SPIRONOLACTONE 25 MG PO DAILY minoxidiL 10 MG PO Q12HR LOSARTAN POTASSIUM 50 MG PO Q12HR MIRTAZAPINE 15 MG PO BEDTIME MELATONIN 3 MG PO BEDTIME PRN INSULIN LISPRO 0 UNITS SUBQ Q6HR METOPROLOL TARTRATE 100 MG PO Q12HR ALPRAZolam 0.5 MG PO Q6H PRN DEXTROSE 50%-WATER 25 ML IV ASDIR (PRN) DEXTROSE 5%-WATER 1000 ML IV .Q24H DOCUSATE SODIUM 100 MG PO BID CALCIUM GLUCONATE with/in SODIUM CHLORIDE 100 mL BAG 2000 MG IV ONCE LABS GLU BED (05/21/21 12:03) GLUBED 153 H BASIC METABOLIC PANEL (05/21/21 10:01) SODIUM 138 POTASSIUM 2.6L L CHLORIDE 94L L CARBON DIOXIDE 32H H GLUCOSE 173H H BLOOD UREA NITROGEN 8L L GLOMERULAR FILTRATION RATE >=60 max estimate CREATININE 0.60 CALCIUM 7.4 D L GLU BED (05/21/21 07:13) GLUBED 140 H GLU BED (05/21/21 00:54) GLUBED 118 H GLU BED (05/20/21 17:27) GLUBED 118 H -- QUALITY -- -MEDICATIONS- - I attest that the foregoing medication list i n the medical record is true, accurate, and complete to the best of my knowled ge. -ADVANCED CARE PLAN >65- PATIENT HAS AN ADVANCE CARE PLAN: Yes -VTE PROPHYLAXIS -GENERAL- Yes -- ATTESTATION -- ADDITIONAL DETAIL: Time spent in Direct ,Counseling , Coordination of care ,Discharge planning : 33 minutes > 50% of time spent on Counseling/Care Coordinat ion Care activities / Care coordination: I have reviewed the history and repeated the wheat elements I have seen and examined this patient I have reviewed the progress in the clin ical course since the last examination I have discussed the patient's condition with ot her members of the care team Signed in PatientKeeper by Margi Holly MD on 0 05/22/21 at 07:33 Electronically Signed by Margi Holly MD on 10/05 at 0733 ATTENTION *EDITS and/or ADDENDA must be made in Patient Ke eper for this note. * * Edits and ammendments created in GreenBytes are not visible * * in Patient Keeper or the legal medical record (HPF). * RPT #: [id number] END OF REPORT 2021-05-21 06:33:00-00:00 [id number] [facility] [address] [place] [address] PATIENT NAME: CYNDI MONTAÑO ADMIT DATE: 05/17/21 ACCOUNT NO: [id number] ROOM NO: [facility] AGE: 70 REPORT TYPE: PROGRESS NOTE SEX: F ADMITTING PHYSICIAN:Kt Holly MD ATTENDING PHYSICIAN:Kt Holly MD DATE: 05/21/2021 PROGRESS NOTE PROBLEM: Stricture in sigmoid colon area. SUBJECTIVE: The patient indicates she is nauseat ed. She is not having any abdominal pain. OBJECTIVE: VITAL SIGNS: Temperature is 36.5, pulse of 90, r espirations of 20, blood pressure is 191/95. ABDOMEN: Soft, nontender. No guarding. NG tube w ith dark bloody type drainage. LABORATORY STUDIES: Revealed H and H of 11.9 and 38.3 with a WBC of 8900. ASSESSMENT: The patient is stable. She has had s ome abnormal electrolytes and needs followup of CBC and BMP. I have discussed the patient's status with Surgery who plans of surgery on 05/25/2021. Does not desire preoperative colonoscopy secondary to concerns of possible ex acerbating clinical picture. PLAN: DIAGNOSTIC: Follow up CBC and BMP. THERAPEUTIC: Surgical management. PATIENT EDUCATION: None required. Dictated By: Antony Milner Jr, MD WT: PN:LEONORA/VIRIDIANA/DEBI Conf#: [id number]/DID#: [id number] Authenticated by Antony Milner MD On 07:03:52 AM at 0703 PATIENT NAME: CYNDI MONTAÑO 665 2021-05-20 20:40:00-00:00 [facility] ([facility]) Cardiology Progress Notes REPORT #: [id number] REPORT STATUS: Signed DATE: 05/20/21 TIME: 2039 PATIENT: CYNDI MONTAÑO UNIT #: [id number] [facility] : [facility] AGE: 70 SEX: F ATTEND: Kt Holly MD ADM AUTHOR: Ashanti Barker MD ATTENTION *EDITS and/or ADDENDA must be made in Patient Ke eper for this note. * * Edits and ammendments created in GreenBytes are not visible * * in Patient Keeper or the legal medical record (HPF). * -- ASSESSMENT AND PLAN -- GENERAL ASSESSMENT: She requires surgery for colonic stricture and o bstruction. She has chronic systolic heart failure d ue to HTN Heart disease and paroxysmal atrial fibrillation to boot. Her current LVEF and PAP wer e measurements during decompensation with emergency hypertension. Her function appears to be such th at she will tolerate general anesthesia and colon resection with reasonable r isk. She requires blood pressure control. I discussed her heart disease, management and th e risk of surgery with her daughter at the bedside today. Her risk was discussed with colorectal surgery t his afternoon. I recommended additional time for blood pressure and h eart failure control that will allow a reasonable, marginally increased risk of complic ation that is principally related to a recurrence of atrial fibrillation. Dx obstruction descending colon Dilated cardiomyopathy acute on chronic diastolic heart failure- improv ed Hypertensive heart disease LBBB Primary hypertension with hypertensive emergency paroxysmal atrial fibrillation Delirium vs decompensated dementia treated hyperthyroidism Plan BP control K correction and begin spironolactone amiodarone AF prophylaxis F/U echo and PAP measurement tuesday surgery delayed to tuesday No anticoagulation due to surgery necessity Ashanti Barker [phone] -- SUBJECTIVE -- CHIEF COMPLAINT: 70 woman who requires laparotomy has a history o f pulmonary hypertension. -- OBJECTIVE -- VITALS (05/19 20:40 - 05/20 20:40): Temperature F: 98.6 Temperature C: 36.8 (36.3 - 37.1) Temperature source: Oral Pulse Rate 92 (71 - 92) Respiratory rate: 20 (16 - 28) BP: 174/92 (147/64 - 180/100) Blood pressure source: Non-invasive monitor I/Os (05/19 07:00 - 05/20 07:00): Net 420.00 Intake 620.00 Output 200 -EXAM- OTHER: General: Normal appearing adult in bed comfortable HNT: normal head anatomy. normal sclerae, pupils are equal and normal. normal oral mucosae. Normal externa l ears and hair distribution. Neck: No lymphadenopathy or mass. airway midline with thyroid normal Chest: Chest wall is normal. Excursion is limite. Davin th sounds have bibasilar rales. Expiratory phase is normal. Wheezes are absent. Back: + kyphosis. No scoliosis. No tenderness. Cardiovascular: Rhythm is regular JVP a=v waveform at 12 cm water with HJR Pulses Carotid pulses are normal without bruit Radial pulses are normal without subclavian bruit Foot pulses are 4x2 PMI The PMI is sustained and leftl. RV action is impalpable. Valve sounds The first sound is normal. The second sound is normally split Murmur There is no murmur Filling sound A summation filling sound is present Abdomen The abdomen is obese. epigastric, RUQ (70-80's choley), supraumb inf umb scars. There is no pa lpable organomegaly. the wall is soft. Bowel sounds a re present. Extrem. Joints are normal. There is no edema. There is no adenopathy. Skin There is no rash or skin change. Varices are ab sent. Normal skin texture. Neuro In a limited exam, there is no limb weakness. Oriented to person and time. No disturbance of equilibrium is apparent. Speech and understandi ng are normal. 0/3 immediate. She has no insight into illness and is not certain where she is. Psych cooperative -- DATA -- MEDICATIONS LOSARTAN POTASSIUM 50 MG PO Q12HR LABETALOL HCL 10 MG IV Q6H PRN ONDANSETRON HCL/PF 4 MG IV Q4H PRN ESCITALOPRAM 10 MG PO DAILY MIRTAZAPINE 15 MG PO BEDTIME MELATONIN 3 MG PO BEDTIME PRN INSULIN LISPRO 0 UNITS SUBQ Q6HR METOPROLOL TARTRATE 100 MG PO Q12HR ALPRAZolam 0.5 MG PO Q6H PRN hydrALAZINE HCL 10 MG IV Q6H PRN ACETAMINOPHEN 650 MG PO Q6H PRN DEXTROSE 50%-WATER 25 ML IV ASDIR (PRN) cloNIDine HCL 0.3 MG TOPICAL Q7D DEXTROSE 5%-WATER 1000 ML IV .Q24H DOCUSATE SODIUM 100 MG PO BID methIMAzole 10 MG PO DAILY FLUTICASONE/VILANTEROL 1 PUFF INH RTDAILY GLUCAGON 1 MG IM ASDIR (PRN) amLODIPine BESYLATE 10 MG PO DAILY LABS GLU BED (05/20/21 17:27) GLUBED 118 H GLU BED (05/20/21 12:31) GLUBED 134 H GLU BED (05/20/21 05:30) GLUBED 118 H BASIC METABOLIC PANEL (05/20/21 05:16) SODIUM 141 POTASSIUM 2.8L L CHLORIDE 96L L CARBON DIOXIDE 30 GLUCOSE 119H H BLOOD UREA NITROGEN 14 GLOMERULAR FILTRATION RATE >=60 max estimate CREATININE 0.80 CALCIUM 8.9 CBC W/AUTO DIFF (05/20/21 05:16) WHITE BLOOD CELL 8.9 RED BLOOD CELL 4.57 HEMOGLOBIN 11.9L L HEMATOCRIT 38.3 MEAN CELL VOLUME 83.8 MEAN CELL HGB 26.0 L MEAN CELL HGB CONCENTRATION 31.1 L RED CELL DISTRIBUTION WIDTH 16.0 PLATELET COUNT 355 MEAN PLATELET VOLUME 9.7 NEUTROPHIL % 80.4 H LYMPHOCYTE % 11.7 L MONOCYTE % 6.9 EOSINOPHIL % 0.7 BASOPHIL % 0.0 NEUTROPHIL # 7.12 LYMPHOCYTE # 1.04 MONOCYTE # 0.61 EOSINOPHIL # 0.06 BASOPHIL # 0.00 GLU BED (05/20/21 00:12) GLUBED 99 VITALS Pulse Rate 05/20/21 19:20 92 05/20/21 17:26 86 05/20/21 13:01 82 05/20/21 07:25 79 05/20/21 04:03 82 05/19/21 23:48 71 05/19/21 21:30 81 05/19/21 20:46 84 05/19/21 20:30 92 05/19/21 18:28 92 Blood pressure: 05/20/21 19:20 174 / 92 05/20/21 17:26 180 / 100 05/20/21 13:01 150 / 78 05/20/21 07:25 147 / 64 05/20/21 04:03 151 / 81 05/19/21 23:48 153 / 88 05/19/21 21:30 160 / 81 05/19/21 20:46 05/19/21 20:30 145 / 91 05/19/21 18:28 201 / 117 ADDITIONAL COMMENTS: I have reviewed telemetry, laboratory testing an d imaging studies. Synthesis and notation is included in the final assessment . -- ATTESTATION -- ADDITIONAL DETAIL: This patient has serious ill ness that poses an ongoing threat to life or bodily function. There are multiple comorbidities influ encing care with a high probability of deterioration, severe com plication or fatal outcome. Total time in E M and care coordination was 45 minutes. Signed in PatientKeeper by Ashanti Barker MD on 05/21/21 at 09:32 at 0932 ATTENTION *EDITS and/or ADDENDA must be made in Patient Ke eper for this note. * * Edits and ammendments created in [facility] are not visible * * in Patient Keeper or the legal medical record (HPF). * RPT #: [id number] END OF REPORT 2021-05-20 19:10:00-00:00 [facility] ([facility]) Colorectal Surgery Prog Note REPORT#:[id number] REPORT STATUS: Signed DATE:05/20/21 TIME: 1909 PATIENT: CYNDI MONTAÑO UNIT #: [id number] ROOM: [facility] BED: 1 : 51 AGE: 70 SEX: F ATTEND: Kt Holly MD ADM AUTHOR: Yomi Yadav DO * ALL edits or amendments must be made on the el [employer]/computer document * Diagnosis, Assessment Plan Free Text A P: 70 yo F w Large Bowel Obstruction - having several bowel movem ents last 24 hrs however still feels distended with dark bilious ng output 400cc today. - cardiology consult appreciated - await ing cardiac optimization in setting of Right Heart Failure/PH - Will certainly need postop ICU care - tentatively planning surge ry for tuesday - laparoscopic/possible open colectomy /possible colostomy. - would keep ng tube for now. may have sips of c lears for comfort. at 1914 RPT #:[id number] END OF REPORT 2021-05-20 18:07:00-00:00 [facility] ([facility]) Behav. Health Consultation REPORT #: [id number] REPORT STATUS: Signed DATE: 05/20/21 TIME: 1806 PATIENT: CYNDI MONTAÑO UNIT #: [id number] ROOM #: [facility] BED: 1 : 51 AGE: 70 SEX: F ATTEND: Kt Holly MD ADM AUTHOR: Danielle Castro MD ATTENTION *EDITS and/or ADDENDA must be made in Patient Ke eper for this note. * * Edits and ammendments created in [employer] are not visible * * in Patient Keeper or the legal medical record (HPF). * -- ASSESSMENT AND PLAN -- PROBLEMS: 1: Major depression, recurrent A/P: continue lexapro add remeron continue xanax supportive therapy -- HISTORY -- REASON FOR CONSULTATION: Mood and anxiety CHIEF COMPLAINT: Mood and anxiety HPI: Patient is a 70 y/o AA female who is adm itted to the medical floor. Psychiatry consult is called to evaluate her mood and anxie ty. Upon evaluation today, she reports that she is f eeling depressed and anxiety because her last year. She d enies feeling hopeless and helpless. She is not sleeping and eating well. S he denies any hallucinations and SI/HI. Met and discussed with her daughter a s well. PAST PSYCHIATRIC HISTORY: Patient has h/o depression and anxiety in the co st. She has attempted suicide in the past. -CODED DIAGNOSIS- PAST MEDICAL HISTORY: - Acute on chronic diastoli c (congestive) heart failure Onset Date: 2021-05-19 - Hypertensive heart disease with CHF Onset Drew e: 2021-05-19 -- FAMILY AND SOCIAL HISTORY -- -FAMILY PSYCHIATRIC HISTORY- Patient denies -SUBSTANCE USE HISTORY- -ALCOHOL USE- DETAILS/COMMENTS: Patient denies any alcohol and drug hx SOCIAL/DEVELOPMENTAL HISTORY: Patient lives with her daughter and grandson -- ALLERGIES/HOME MEDS -- ALLERGIES: No Known Allergies (UNKNOWN - Allergy) HOME MEDICATIONS: ALPRAZolam Tab (Xanax Tab) 0.125 MG PO BID Apixaban Tab (Eliquis Tab) 5 MG PO BID Escitalopram Tab (Lexapro Tab) 10 MG PO DAILY Flutica/Vilant 200/25 Inh (Breo Ellipta 200/25 I nh) 1 PUFF INH RTDAILY Furosemide Tab (Lasix Tab) Oral Lactulose Oral Liquid (Enulose Oral Liquid) 30 M L PO DAILY methIMAzole tablet 10 MG PO DAILY Sotalol Tab (Betapace Tab) 80 MG PO BID Temazepam Cap (Restoril Cap) 22.5 MG PO BEDTIME traMADol Tab (Ultram Tab) 50 MG PO Q6H -- OBJECTIVE -- VITALS (05/19 18:08 - 05/20 18:08): Temperature F: 98.6 Temperature C: 36.9 (36.3 - 37.1) Temperature source: Oral Pulse Rate 86 (71 - 92) Respiratory rate: 16 (16 - 28) BP: 180/100 (145/64 - 201/117) Blood pressure source: Non-invasive monitor I/Os (05/19 07:00 - 05/20 07:00): Net 420.00 Intake 620.00 Output 200 -- MSE/NEURO EXAM -- -MENTAL STATUS EXAM- APPEARANCE: fair grooming MOOD: sad and anxious AFFECT: apporpriate THOUGHT PROCESSES: concrete THOUGHT CONTENT: normal SI/HI: denies both HALLUCINATIONS: denies ALERTNESS: alert ORIENTATION: situation MEMORY: grossly intact STRENGTHS: social support DISABILITIES: medical health issues -- DATA -- MEDICATIONS ONDANSETRON HCL/PF 4 MG IV Q4H PRN ESCITALOPRAM 10 MG PO DAILY hydrALAZINE HCL 10 MG IV Q6H PRN ACETAMINOPHEN 650 MG PO Q6H PRN cloNIDine HCL 0.3 MG TOPICAL Q7D methIMAzole 10 MG PO DAILY FLUTICASONE/VILANTEROL 1 PUFF INH RTDAILY GLUCAGON 1 MG IM ASDIR (PRN) LOSARTAN POTASSIUM 50 MG PO Q12HR LABETALOL HCL 10 MG IV Q6H PRN MIRTAZAPINE 15 MG PO BEDTIME MELATONIN 3 MG PO BEDTIME PRN INSULIN LISPRO 0 UNITS SUBQ Q6HR METOPROLOL TARTRATE 100 MG PO Q12HR ALPRAZolam 0.5 MG PO Q6H PRN DEXTROSE 50%-WATER 25 ML IV ASDIR (PRN) DEXTROSE 5%-WATER 1000 ML IV .Q24H DOCUSATE SODIUM 100 MG PO BID amLODIPine BESYLATE 10 MG PO DAILY LABS GLU BED (05/20/21 17:27) GLUBED 118 H GLU BED (05/20/21 12:31) GLUBED 134 H GLU BED (05/20/21 05:30) GLUBED 118 H BASIC METABOLIC PANEL (05/20/21 05:16) SODIUM 141 POTASSIUM 2.8L L CHLORIDE 96L L CARBON DIOXIDE 30 GLUCOSE 119H H BLOOD UREA NITROGEN 14 GLOMERULAR FILTRATION RATE >=60 max estimate CREATININE 0.80 CALCIUM 8.9 CBC W/AUTO DIFF (05/20/21 05:16) WHITE BLOOD CELL 8.9 RED BLOOD CELL 4.57 HEMOGLOBIN 11.9L L HEMATOCRIT 38.3 MEAN CELL VOLUME 83.8 MEAN CELL HGB 26.0 L MEAN CELL HGB CONCENTRATION 31.1 L RED CELL DISTRIBUTION WIDTH 16.0 PLATELET COUNT 355 MEAN PLATELET VOLUME 9.7 NEUTROPHIL % 80.4 H LYMPHOCYTE % 11.7 L MONOCYTE % 6.9 EOSINOPHIL % 0.7 BASOPHIL % 0.0 NEUTROPHIL # 7.12 LYMPHOCYTE # 1.04 MONOCYTE # 0.61 EOSINOPHIL # 0.06 BASOPHIL # 0.00 GLU BED (05/20/21 00:12) GLUBED 99 Signed in PatientKeeper by Danielle Castro MD o n 05/20/21 at 18:14 at 1814 ATTENTION *EDITS and/or ADDENDA must be made in Patient Ke eper for this note. * * Edits and ammendments created in [facility] are not visible * * in Patient Keeper or the legal medical record (HPF). * [facility] #: [id number] END OF REPORT 2021-05-20 13:49:00-00:00 [facility] ([facility]) Family Medicine Progress Note REPORT #: [id number] REPORT STATUS: Signed DATE: 05/20/21 TIME: 1349 PATIENT: CYNDI MONTAÑO UNIT #: [id number] ROOM #: [id number] BED: 1 : 51 AGE: 70 SEX: F ATTEND: Kt Holly MD ADM AUTHOR: Margi Holly MD ATTENTION *EDITS and/or ADDENDA must be made in Patient Ke eper for this note. * * Edits and ammendments created in [employer] are not visible * * in Patient Keeper or the legal medical record (HPF). * -- ASSESSMENT AND PLAN -- HOSPITAL COURSE TO DATE: The patient is a 70-year-old female with a past medical history of anxiety, DM 2, HTN, migraines, thyroid problem, and TIA who presents originally to outside hospital with a chief complaint of abdominal kenny n x1 week with no bowel movement x1 week and worsening abdominal distent ion/mass. Outside hospital presentation found patient h ypertensive BP 235/144, tachycardic 121, tachypneic 22, Temp 98.6 degrees Fahren heit, a pain scale 7/10 CT abdomen and pelvics with large bowel obstruction at the junction of desce nding and sigmoid:: Bowel obstruction. 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 Patient states she had bowel movement at e facility yesterday though remains mildly distended with mild discomfort bu t currently reports feeling better. 05/19/2021 - Pt is confused during the night and actually p ulled out her NgT - - Recommend cardiac evaluation due to hx of CH F and possible pulmonary HTN. May benefit from preop echo Dr. Barker consulted and Echo ordered. - Genral surgery consult: PT with partial obstru ction of the colon, NGT was draining brown fluid yesterd ay, she pulled it out and now is nauseated. I think that in order to prevent vom iting and aspiration, replacing an NGT is needed as the obstruction is not resolved yet. She will get cardiac evaluation today and she will be safer to travel with an NGT in place . KUB to follow after placement. Surgical plans after cardiac evaluati on is completed. - NPO for now. ABD/PELVIS CT notes: 1. Abnormal dilation of col onic loops followed to the sigmoid colon where there is a 5 cm section of narrowing which may represent sequelae of diverticulitis although underlying l esion is not excluded. There is also dilation of small bowel loops. 2. Mild dependent atelectasis versus pneumonitis . 3. Cardiomegaly and pulmonary venous hypertensio n. 4. Adrenal hyperplasia versus adenomatosis. 5. Nonspecific small free pelvic fluid. Uterus i s surgically absent. - Abd x ray suggest improvement in constipation 05/20/21: As per Dr. milner note: The patient indicates that she is not having any abdominal pain. She has not had any nausea or vomiting. Her NG t ube is out. The patient's bowel obstruction related to the s igmoid colon area has resolved. The patient is clinically improved . Blood pressure is under better control. The patient's obstructive picture has re solved. Blood pressure is under better control. Proceeding with surgical intervention w ould be advised if cardiology is on board. Question whether a preoperative col onoscopy would be dictated by surgery. We will anticipate interacting with mukesh sharma to clarify plans. GENERAL ASSESSMENT: She requires surgery for colonic stricture and o bstruction. I suspect that she has chron ic diastolic heart failure due to HTN Heart disease and atrial fibrillation to b oot. The data is in her medical regimen for AF. Her exam reveals that she is verona jatinder in decompensated heart failure. This is likely a result of her now well recovered blood pressure. The CT scan adds to bedside observation with prominent left atrial enlargeme nt related to high filling pressure. I will need a day to get her blood pressure under control and address her volume state before surgery. I have requested an ECG. The echo will b e done today. There will be no need to pursue additional ischemia testing and the like, only time to stabilize her hemodynamics. Dx obstruction descending colon acute on chronic diastolic heart failure Hypertensive heart disease Primary hypertension with hypertensive emergency paroxysmal atrial fibrillation Delirium vs decompensated dementia treated hyperthyroidism Plan BP control Diuresis F/U echo/ECG surgery after tomorrow Problems: 1. Paroxysmal atrial fibrillation 2. Hypertensive heart disease with CHF 3. Acute on chronic diastolic (congestive) heart failure 4. Primary hypertension 5. Abdominal obesity and metabolic syndrome -- OBJECTIVE -- VITALS (05/19 13:49 - 05/20 13:49): Temperature F: 98.6 Temperature C: 36.9 (36.3 - 37.1) Temperature source: Oral Pulse Rate 82 (71 - 105) Respiratory rate: 16 (16 - 28) BP: 150/78 (145/64 - 201/118) Blood pressure source: Non-invasive monitor I/Os (05/19 07:00 - 05/20 07:00): Net 420.00 Intake 620.00 Output 200 -EXAM- GENERAL: Well developed, well nourished, in no a pparent distress. NECK: No masses, no thyromegaly, no abnormal cer vical nodes, trachea midline. LUNGS: Clear bilaterally with normal respiratory effort. ABDOMEN: distended, tympanic, well healed Keith incision and midline incision NEUROLOGICAL: No focal deficits, cranial nerves II-XII grossly intact, normal sensation, normal reflexes, normal coord ination, normal muscle strength, normal tone. PULSES: Pulses normal in all extremities. SKIN: Intact without significant lesions, or tai hes. LYMPH NODES: No significant cervical node adenop athy. No significant axillary node adenopathy. No significant inguin al node adenopathy. -- DATA -- MEDICATIONS LOSARTAN POTASSIUM 50 MG PO Q12HR LABETALOL HCL 10 MG IV Q6H PRN ONDANSETRON HCL/PF 4 MG IV Q4H PRN ESCITALOPRAM 10 MG PO DAILY MELATONIN 3 MG PO BEDTIME PRN INSULIN LISPRO 0 UNITS SUBQ Q6HR METOPROLOL TARTRATE 100 MG PO Q12HR hydrALAZINE HCL 10 MG IV Q6H PRN ACETAMINOPHEN 650 MG PO Q6H PRN DEXTROSE 50%-WATER 25 ML IV ASDIR (PRN) cloNIDine HCL 0.3 MG TOPICAL Q7D DEXTROSE 5%-WATER 1000 ML IV .Q24H DOCUSATE SODIUM 100 MG PO BID methIMAzole 10 MG PO DAILY ALPRAZolam 1 MG PO Q6H PRN FLUTICASONE/VILANTEROL 1 PUFF INH RTDAILY GLUCAGON 1 MG IM ASDIR (PRN) amLODIPine BESYLATE 10 MG PO DAILY LABS GLU BED (05/20/21 12:31) GLUBED 134 H GLU BED (05/20/21 05:30) GLUBED 118 H BASIC METABOLIC PANEL (05/20/21 05:16) SODIUM 141 POTASSIUM 2.8L L CHLORIDE 96L L CARBON DIOXIDE 30 GLUCOSE 119H H BLOOD UREA NITROGEN 14 GLOMERULAR FILTRATION RATE >=60 max estimate CREATININE 0.80 CALCIUM 8.9 CBC W/AUTO DIFF (05/20/21 05:16) WHITE BLOOD CELL 8.9 RED BLOOD CELL 4.57 HEMOGLOBIN 11.9L L HEMATOCRIT 38.3 MEAN CELL VOLUME 83.8 MEAN CELL HGB 26.0 L MEAN CELL HGB CONCENTRATION 31.1 L RED CELL DISTRIBUTION WIDTH 16.0 PLATELET COUNT 355 MEAN PLATELET VOLUME 9.7 NEUTROPHIL % 80.4 H LYMPHOCYTE % 11.7 L MONOCYTE % 6.9 EOSINOPHIL % 0.7 BASOPHIL % 0.0 NEUTROPHIL # 7.12 LYMPHOCYTE # 1.04 MONOCYTE # 0.61 EOSINOPHIL # 0.06 BASOPHIL # 0.00 GLU BED (05/20/21 00:12) GLUBED 99 -- QUALITY -- -MEDICATIONS- - I attest that the foregoing medication list i n the medical record is true, accurate, and complete to the best of my knowled ge. -ADVANCED CARE PLAN >65- PATIENT HAS AN ADVANCE CARE PLAN: Yes -VTE PROPHYLAXIS -GENERAL- Yes -- ATTESTATION -- ADDITIONAL DETAIL: Time spent in Direct ,Counseling , Coordination of care ,Discharge planning : 33 minutes > 50% of time spent on Counseling/Care Coordinat ion Care activities / Care coordination: I have reviewed the history and repeated the wheat elements I have seen and examined this patient I have reviewed the progress in the clin ica course since the last examination I have discussed the patient's condition with ot her members of the care team Signed in PatientKeeper by Margi Holly MD on 0 05/20/21 at 19:05 Electronically Signed by Margi Holly MD on 08/05 at 1905 ATTENTION *EDITS and/or ADDENDA must be made in Patient Ke eper for this note. * * Edits and ammendments created in [employer] are not visible * * in Patient Keeper or the legal medical record (HPF). * [facility] #: [id number] END OF REPORT 2021-05-20 06:42:00-00:00 [id number] [facility] [address] [place] [address] PATIENT NAME: CYNDI MONTAÑO ADMIT DATE: 05/17/21 ACCOUNT NO: [id number] ROOM NO: [facility] AGE: 70 REPORT TYPE: PROGRESS NOTE SEX: F ADMITTING PHYSICIAN:Kt Holly MD ATTENDING PHYSICIAN:Kt Holly MD DATE: 05/20/2021 PROGRESS NOTE PROBLEM: Probable diverticular disease in the si gmoid colon. SUBJECTIVE: The patient indicates that she is no t having any abdominal pain. She has not had any nausea or vomiting. Her NG t ube is out. OBJECTIVE: VITAL SIGNS: Temperature is 37.1, respirations o f 28, pulse of 82, blood pressure is 151/81. GENERAL: The patient is confused, but no acute d istress. ABDOMEN: Obese, but soft, nontender, no guarding . No rebound. ASSESSMENT: The patient's bowel obstruction rela max to the sigmoid colon area has resolved. The patient is clinically improved . Blood pressure is under better control. The patient's obstructive picture has re solved. Blood pressure is under better control. Proceeding with surgical intervention w ould be advised if cardiology is on board. Question whether a preoperative col onoscopy would be dictated by surgery. We will anticipate interacting with mukesh sharma to clarify plans. PLAN: DIAGNOSTIC: Consider colonoscopy either pre or p ost operatively. THERAPEUTIC: Anticipate surgical resection of co carla. PATIENT EDUCATION: The patient informed of the a clary. Dictated By: Antony Milner Jr, MD WT: PN:P.OC/VIRIDIANA/DEBI Conf#: [id number]/DID#: [id number] Authenticated and Edited by Antony ambriz MD On 05/21/21 7:03:44 AM PATIENT NAME: CYNDI MONTAÑO 665 at 0707 PATIENT NAME: CYNDI MONTAÑO 665 2021-05-19 16:47:00-00:00 [id number] [place] [address] PATIENT NAME: CYNDI MONTAÑO ADMIT DATE: 05/17/21 ACCOUNT NO: [id number] ROOM NO: [facility] AGE: 70 REPORT TYPE: eECHOCARDIOGRAM REPORT SEX: F ADMITTING PHYSICIAN: Kt Holly MD ATTENDING PHYSICIAN: Kt Holly MD *[facility]* [address] [place] [address] Transthoracic Echocardiogram Patient: Cyndi Montaño Study Date: 05/19/2021 BP: Location: [facility] URN: [id number] [id number] : 1950 Age: 70 Height: 65 in / 165.1 cm Gender: F Weight: 22 4.5 lb / 102.1 kg BMI/BSA: 37.4 kg/m 2 / 2.08 m 2 *Ordering Physician: * Ashanti Barker M.D. *Interpreting Physician: * Ashanti Barker M.D. *American History Teacher: Jorje VelascoAliyah baer Indications: Chf. Study data: Transthoracic echocardiogram. Proced ure: Transthoracic echocardiography was performed. Im ages were obtained using a [employer] E 90 Portable cardiac ultrasoun d machine. Image quality was fair. Complete 2D, complete spectral Doppler, and color Doppler. Location: Bedside. Patient status : Inpatient. Patient room number: 635. Study status: Routine. Rhythm: Normal sinus rhythm. Findings Left ventricle: The cavity size is at the upper limits of normal. Wall thickness is moderately increased. Moderate ly increased ventricular mass. Systolic function is moderatel y reduced. The estimated ejection fraction is 40-44%. Mild diff use hypokinesis. Regional wall motion abnormalities cannot be exc luded. Doppler PATIENT NAME: CYNDI MONTAÑO 665 parameters are consistent with elevated mean lef t atrial filling pressure. Right ventricle: The cavity size is normal. Syst olic function is normal. Ventricular septum: Abnormal septal motion. Sept al motion is dyssynergic. Abnormal contour. These changes are consistent with a left bundle branch block. Left atrium: The atrium is moderately to severel y dilated. Right atrium: The atrium is at the upper limits of normal in size. Atrial septum: The septum bows from left to righ t, consistent with increased left atrial pressure. Aorta: Mild fibrocalcific change of the root is noted. Aortic valve: The valve is trileaflet. The leafl ets are moderately thickened and moderately calcified. T hickening, consistent with sclerosis. There is no evidence of stenosis. There is 1+ regurgitation. Mitral valve: The annulus is severely calcified and moderately thickened. The leaflets are normal thickness. Th ere is 2+ regurgitation. The acceleration rate of the regu rgitant jet is reduced, consistent with a low dP/dt. Tricuspid valve: The leaflets are normal thickne ss. There is 1+ regurgitation. Pulmonic valve: Not well visualized. There is no evidence of stenosis. Pericardium: There is no pericardial effusion. Pulmonary arteries: Systolic pressure is moderately to severely incr eased. Measurements Left ventricle Value Ref RAZA, LAX 5.0 cm 3.8 - 5.2 ESD, LAX 4.3 cm 2.2 - 3.5 ESD/bsa, LAX 2.0 cm/m 2 1.3 - 2.1 FS, LAX 15 % 27 - 45 PW, ED 1.3 cm 0.6 - 0.9 PW, ES 1.8 cm ------- IVS/PW, ED 1.08 ------- PW/ID, ED 0.26 ------- Mass 276 g 66 - 150 Mass/bsa 133 g/m 2 44 - 88 E', lat elizabeth, TDI 6.5 cm/sec >=10.0 E/e', lat elizabeth, TDI 15 ------- E', med elizabeth, TDI 1.9 cm/sec >=7.0 E/e', med elizabeth, TDI 54 ------- E', avg, TDI 4.2 cm/sec ------- E/e', avg, TDI 24 <=14 PATIENT NAME: CYNDI MONTAÑO 665 LVOT Value Ref Diam, S 2.00 cm ------- Area 3.1 cm 2 ------- Diam 2.0 cm ------- Peak july, S 1.05 m/sec ------- Mean july, S 0.65 m/sec ------- VTI, S 25.7 cm ------- SV 81 ml ------- SV/bsa 39 ml/m 2 ------- Ventricular septum Value Ref IVS, ED 1.4 cm 0.6 - 0.9 IVS, ES 1.7 cm ------- Right ventricle Value Ref RAZA, LAX 3.7 cm ------- RAZA 3.7 cm ------- Pressure, S 73 mm Hg ------- Left atrium Value Ref AP dim ES, LAX 6.4 cm 2.7 - 3.8 Vol, ES, 2-p 150 ml ------- Vol/bsa, ES, 2-p 72 ml/m 2 16 - 34 LA/Ao root ratio 1.95 ------- Aortic valve Value Ref Peak v, S 1.55 m/sec ------- Mean v, S 1.04 m/sec ------- VTI, S 28.4 cm ------- Mean grad, S 5.1 mm Hg ------- Peak grad, S 9.6 mm Hg ------- LVOT/AV, VTI ratio 0.9 ------- TARA, VTI 2.83 cm 2 ------- LVOT/AV, Vpeak 0.68 ------- ratio AR peak v 3.89 m/sec ------- AR decel time 2062 ms ------- AR PHT 598 ms ------- AR peak grad 61 mm Hg ------- Mitral valve Value Ref Peak E 1 m/sec ------- Peak A 1.12 m/sec ------- Decel time 154 ms ------- Peak E/A ratio 0.89 ------- Pulmonic valve Value Ref OH peak v 1.72 m/sec ------- Tricuspid valve Value Ref TR peak v 3.97 m/sec <=2.8 Peak RV-RA grad, S 63 mm Hg ------- PATIENT NAME: CYNDI MONTAÑO 665 Aortic root Value Ref Root diam 3.3 cm <4.2 Ascending aorta Value Ref AAo AP diam, S 4.1 cm ------- AAo AP diam/bsa, S 2.0 cm/m 2 ------- Pulmonary artery Value Ref Pressure, S 73.1 mm Hg ------- Systemic veins Value Ref Estimated CVP 10 mm Hg ------- Conclusions Summary: 1. Left ventricle: The cavity size is at the upp er limits of normal. Wall thickness is moderately increased. Moderately increased ventricular mass. Systolic function i s moderately reduced. The estimated ejection fraction is 40- 44%. Mild diffuse hypokinesis. Regional wall motion abnormalities cannot be excluded. Doppler parameters are consistent wit h elevated mean left atrial filling pressure. 2. Ventricular septum: Abnormal septal motion. S eptal motion is dyssynergic. These changes are consistent with a left bundle branch block. 3. Left atrium: The atrium is moderately to jumana rely dilated. 4. Atrial septum: The septum bows from left to r ight, consistent with increased left atrial pressure. 5. Aortic valve: Thickening, consistent with scl erosis. There is 1+ regurgitation. 6. Mitral valve: The annulus is severely calcifi ed and moderately thickened. The leaflets are normal thickness. T here is 2+ regurgitation. The acceleration rate of the reg urgitant jet is reduced, consistent with a low dP/dt. 7. Tricuspid valve: There is 1+ regurgitation. 8. Pulmonary arteries: Systolic pressure is mode rately to severely increased. The peak pressure during systole by Doppler is 73.1 mm Hg. Impressions: 1. Decompensated systolic left ventricular failu re. 2. Pulmonary hypertension due to left heart dise ase. 3. Moderate to severe MAC with mild/moderate reg urgitation. 4. Aortic valve sclerosis. 5. LBBB with significant septal dysynergy. 6. Wall thickness exceeds female threshold for c onsideration of infiltrative disease/amyloidosis. Prepared and electronically signed by PATIENT NAME: CYNDI MONTAÑO 665 Ashanti Barker M.D. 05/19/2021 16:47 at 1647 PATIENT NAME: CYNDI MONTAÑO 665 2021-05-19 12:44:00-00:00 [facility] ([facility]) Family Medicine Progress Note REPORT #: [id number] REPORT STATUS: Signed DATE: 05/19/21 TIME: 1244 PATIENT: CYNDI MONTAÑO UNIT #: [id number] ROOM #: P.0635 BED: 1 : 51 AGE: 70 SEX: F ATTEND: Kt Holly MD ADM AUTHOR: Margi Holly MD ATTENTION *EDITS and/or ADDENDA must be made in Patient Ke eper for this note. * * Edits and ammendments created in [employer] are not visible * * in Patient Keeper or the legal medical record (HPF). * -- ASSESSMENT AND PLAN -- HOSPITAL COURSE TO DATE: Admission date: 2021-05-17 Primary care provider: Primary or Family Physician, No Chief complaint: Abdominal pain, transfer from [facility] for large Colon Bowel obstruction with stricture HPI: The patient is a 70-year-old female with a past medical history of anxiety, DM 2, HTN, migraines, thyroid problem, and TIA who presents originally to outside hospital with a chief complaint of abdominal kenny n x1 week with no bowel movement x1 week and worsening abdominal distent ion/mass. Outside hospital presentation found patient h ypertensive BP 235/144, tachycardic 121, tachypneic 22, Temp 98.6 degrees Fahren heit, a pain scale 7/10 CT abdomen and pelvics with large bowel obstruction at the junction of desce nding and sigmoid:: Bowel obstruction. 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 Patient states she had bowel movement at th e facility yesterday though remains mildly distended with mild discomfort bu t currently reports feeling better. 05/19/2021 - Pt is confused during the night and actually p ulled out her NgT - - Recommend cardiac evaluation due to hx of CH F and possible pulmonary HTN. May benefit from preop echo Dr. Barker consulted and Echo ordered. - Genral surgery consult: PT with partial obstru ction of the colon, NGT was draining brown fluid yesterd ay, she pulled it out and now is nauseated. I think that in order to prevent vom iting and aspiration, replacing an NGT is needed as the obstruction is not resolved yet. She will get cardiac evaluation today and she will be safer to travel with an NGT in place . KUB to follow after placement. Surgical plans after cardiac evaluati on is completed. - NPO for now. ABD/PELVIS CT notes: 1. Abnormal dilation of col onic loops followed to the sigmoid colon where there is a 5 cm section of narrowing which may represent sequelae of diverticulitis although underlying l esion is not excluded. There is also dilation of small bowel loops. 2. Mild dependent atelectasis versus pneumonitis . 3. Cardiomegaly and pulmonary venous hypertensio n. 4. Adrenal hyperplasia versus adenomatosis. 5. Nonspecific small free pelvic fluid. Uterus i s surgically absent. - Abd x ray suggest improvement in constipation GENERAL ASSESSMENT: 70 yo F with a pmhx of DM, C onstipation, HTN, CHF, Hypothyroid, and anxiety who presented with findings of a partial large bowel obstruction 2/2 sigmoid structure obstruction with strictures - NG tube in place. Output noted to be brownish. Continue to LIS - Encourage ambulation - Abdominal exam improved. - No opioid pain medication - Appears to not be full obstructed at this time . - Recommend cardiac evaluati on due to hx of CHF and possible pulmonary HTN. May benefit from preop echo. - Will continue to follow closely. Will likely need resection during this stay once medical conditions have be optimized. -- OBJECTIVE -- VITALS (05/18 12:44 - 05/19 12:44): Temperature C: 37.0 (36.6 - 37.0) Temperature source: Oral Pulse Rate 87 (87 - 108) Respiratory rate: 18 (18 - 20) BP: 219/116 (160/80 - 219/132) I/Os (05/18 07:00 - 05/19 07:00): Net 675.00 Intake 825.00 Output 150 -EXAM- GENERAL: Well developed, well nourished, in no a pparent distress. CHEST: Grossly normal appearance. ABDOMEN: Soft, non-tender, mildly distended, thi ck pannus. No guarding, no rebound, no rigidity. PSYCHIATRIC: Alert, confused. -- DATA -- MEDICATIONS ALPRAZolam 0.125 MG PO BID PRN ONDANSETRON HCL/PF 4 MG IV Q4H PRN ESCITALOPRAM 10 MG PO DAILY hydrALAZINE HCL 10 MG IV Q6H PRN ACETAMINOPHEN 650 MG PO Q6H PRN cloNIDine HCL 0.3 MG TOPICAL Q7D methIMAzole 10 MG PO DAILY FLUTICASONE/VILANTEROL 1 PUFF INH RTDAILY GLUCAGON 1 MG IM ASDIR (PRN) METOPROLOL TARTRATE 50 MG PO Q12HR LOSARTAN POTASSIUM 50 MG PO Q12HR LABETALOL HCL 10 MG IV Q6H PRN MELATONIN 3 MG PO BEDTIME PRN INSULIN LISPRO 0 UNITS SUBQ Q6HR DEXTROSE 50%-WATER 25 ML IV ASDIR (PRN) DEXTROSE 5%-WATER 1000 ML IV .Q24H DOCUSATE SODIUM 100 MG PO BID LABS GLU BED (05/19/21 11:49) GLUBED 184 H CBC W/AUTO DIFF (05/19/21 06:54) WHITE BLOOD CELL 9.5 RED BLOOD CELL 4.45 HEMOGLOBIN 11.5L L HEMATOCRIT 37.8 MEAN CELL VOLUME 84.9 MEAN CELL HGB 25.8 L MEAN CELL HGB CONCENTRATION 30.4 L RED CELL DISTRIBUTION WIDTH 15.9 PLATELET COUNT 381 MEAN PLATELET VOLUME 9.8 NEUTROPHIL % 86.0 H LYMPHOCYTE % 6.6 L MONOCYTE % 6.9 EOSINOPHIL % 0.1 BASOPHIL % 0.1 NEUTROPHIL # 8.17 H LYMPHOCYTE # 0.63 L MONOCYTE # 0.66 EOSINOPHIL # 0.01 BASOPHIL # 0.01 COMPREHENSIVE METABOLIC PANEL (05/19/21 06:54) SODIUM 144 POTASSIUM 3.3 L CHLORIDE 100 CARBON DIOXIDE 30 GLUCOSE 186 H BLOOD UREA NITROGEN 12 GLOMERULAR FILTRATION RATE >=60 max estimate CREATININE 0.70 TOTAL PROTEIN 6.2 ALBUMIN 3.6 CALCIUM 8.5 L BILIRUBIN TOTAL 0.4 SGOT/AST 20 SGPT/ALT 9 L ALKALINE PHOSPHATASE 111 GLU BED (05/19/21 05:23) GLUBED 193 H GLU BED (05/19/21 01:00) GLUBED 189 H GLU BED (05/18/21 17:30) GLUBED 192 H -- QUALITY -- COMMENTS: Medications I attest that the foregoing medication list in t he medical record is true, accurate, and complete to the best of my knowled ge. Unable to obtain an accurate home medica tion list at this time. The patient is in an urgent or emergent medical situation where time is of the essence. To delay treatment would jeopardize the pat ient's health status on the day of the encounter. ----- VTE Prophylaxis -General Type of VTE Lovenox Heparin other anticoagulants mechanical compression device Other... Advanced care plan >65 Patient has an advance care plan: Patient has a surrogate decision maker: Heart failure: DC on BB,ACEI/ARB LVEF: <40% >40% Beta-negra Rx at DC: ACEI/ARB Rx at DC: -- ATTESTATION -- ADDITIONAL DETAIL: Time spent in Direct ,Counseling , Coordination of care ,Discharge planning : 33 minutes > 50% of time spent on Counseling/Care Coordinat ion Care activities / Care coordination: I have reviewed the history and repeated the wheat elements I have seen and examined this patient I have reviewed the progress in the clin ical course since the last examination I have discussed the patient's condition with ot her members of the care team Signed in PatientKeeper by Margi Holly MD on 0 05/19/21 at 19:15 Electronically Signed by Margi Holly MD on 07/05 at 1915 ATTENTION *EDITS and/or ADDENDA must be made in Patient Ke eper for this note. * * Edits and ammendments created in [employer] are not visible * * in Patient Keeper or the legal medical record (HPF). * [facility] #: [id number] END OF REPORT 2021-05-19 09:55:00-00:00 [id number] [facility] [address] [place] [address] PATIENT NAME: CYNDI MONTAÑO ADMIT DATE: 05/17/21 ACCOUNT NO: [id number] ROOM NO: [id number] AGE: 70 REPORT TYPE: eELECTROCARDIOGRAM SEX: F ADMITTING PHYSICIAN: Kt Holly MD ATTENDING PHYSICIAN: Kt Holly MD Order: [id number] Test Reason : Afib Test Date/Time Stamp: TueMay 19 2021 09:55:05 Blood Pressure : / mmHG Vent. Rate : 104 BPM Atrial Rate : 104 BPM P-R Int : 138 ms QRS Dur : 164 ms QT Int : 416 ms P-R-T Axes : 087 -11 125 degree s QTc Int : 547 ms Sinus tachycardia Left bundle branch block Abnormal ECG No previous ECGs available Confirmed by ASHANTI BARKER MD ([id number]) on 06/01 10:02:26 AM Referred By: Kt Holly Confirmed by:ASHANTI BRUCE MD at 1002 PATIENT NAME: CYNDI MOTNAÑO 665 2021-05-19 08:00:00-00:00 [id number] [facility] [address] [place] [id number] PATIENT NAME: CYNDI MONTAÑO ADMIT DATE: 05/17/21 ACCOUNT NO: [id number] ROOM NO: .[facility] AGE: 70 REPORT TYPE: PROGRESS NOTE SEX: F ADMITTING PHYSICIAN:Kt Holly MD ATTENDING PHYSICIAN:Kt Holly MD DATE: 05/19/2021 GASTROENTEROLOGY PROGRESS NOTE PROBLEM: Diverticular stricture. SUBJECTIVE: The patient indicates she is not hav ing any abdominal pain. She became confused during the night and actually pu lled out her NG tube. The patient has not had any episodes of nausea or vo miting. OBJECTIVE: VITAL SIGNS: Temperature is 37, pulse of 106, re spirations of 18, and blood pressure is 191/102. GENERAL: The patient is alert, in no acute distr ess. ABDOMEN: Soft, nontender. No guarding. ASSESSMENT: The patient's abdomen has be come benign. She is stable and we will attempt to advance diet. The patient will likely require a colon resection. Uncertain if surgery plans preoperative colonosc opy. PLAN: DIAGNOSTIC: None further at this time. THERAPEUTIC: Anticipate surgery followup. PATIENT EDUCATION: Discussed with patient's nurs e at bedside. Dictated By: Antony Milner Jr, MD WT: PN:PKAYLYN/VIRIDIANA/DEBI Conf#: [id number]/DID#: [id number] Authenticated and Edited by Antony ambriz MD On 05/19/21 5:22:37 PM at 0525 PATIENT NAME: CYNDI MONTAÑO 665 2021-05-19 07:43:00-00:00 [facility] ([facility]) Cardiology Consultation REPORT #: [id number] REPORT STATUS: Signed DATE: 05/19/21 TIME: 07 PATIENT: CYNDI MONTAÑO UNIT #: [id number] ROOM #: [facility] BED: 1 : 51 AGE: 70 SEX: F ATTEND: Kt Holly MD ADM AUTHOR: Ashanti Barker MD ATTENTION *EDITS and/or ADDENDA must be made in Patient Ke eper for this note. * * Edits and ammendments created in [employer] are not visible * * in Patient Keeper or the legal medical record (HPF). * -- ASSESSMENT AND PLAN -- GENERAL ASSESSMENT: She requires surgery for colonic stricture and o bstruction. I suspect that she has chron ic diastolic heart failure due to HTN Heart disease and atrial fibrillation to b oot. The data is in her medical regimen for AF. Her exam reveals that she is verona jatinder in decompensated heart failure. This is likely a result of her now well recovered blood pressure. The CT scan adds to bedside observation with prominent left atrial enlargeme nt related to high filling pressure. I will need a day to get her blood pressure under control and address her volume state before surgery. I have requested an ECG. The echo will b e done today. There will be no need to pursue additional ischemia testing and the like, only time to stabilize her hemodynamics. Dx obstruction descending colon acute on chronic diastolic heart failure Hypertensive heart disease Primary hypertension with hypertensive emergency paroxysmal atrial fibrillation Delirium vs decompensated dementia treated hyperthyroidism Plan BP control Diuresis F/U echo/ECG surgery after tomorrow Ashanti Barker [phone] PROBLEMS: 1: Paroxysmal atrial fibrillation 2: Hypertensive heart disease with CHF 3: Acute on chronic diastolic (congestive) heart failure 4: Primary hypertension 5: Abdominal obesity and metabolic syndrome -- HISTORY -- CHIEF COMPLAINT: 70 woman who requires laparotomy has a history o f pulmonary hypertension. HPI: She is a poor historian due to delirium. Data ta dat from exam and records. She has atrial fibrillation, DM 2, HTN, migraine s, and a prior TIA. She came with colonic obstruction and hypertensive urgenc y. Probable colonic stricture or malignancy is suspected and surgery will be n ecessary. She is chronically anticoagu lated and treated with AAD to prevent AF recurrence. She reports symptoms consistent with chronic hea rt failure PAST MEDICAL HISTORY: Diabetes mellitus HTN Migraines hyperthyroidism TIA PAST SURGICAL HISTORY: Cholecystectomy Hysterectomy Laparotomy reason unknown -- ALLERGIES/HOME MEDS -- ALLERGIES: No Known Allergies (UNKNOWN - Allergy) HOME MEDICATIONS: ALPRAZolam Tab (Xanax Tab) 0.125 MG PO BID Apixaban Tab (Eliquis Tab) 5 MG PO BID Escitalopram Tab (Lexapro Tab) 10 MG PO DAILY Flutica/Vilant 200/25 Inh (Breo Ellipta 200/25 I nh) 1 PUFF INH RTDAILY Furosemide Tab (Lasix Tab) Oral Lactulose Oral Liquid (Enulose Oral Liquid) 30 M L PO DAILY methIMAzole tablet 10 MG PO DAILY Sotalol Tab (Betapace Tab) 80 MG PO BID Temazepam Cap (Restoril Cap) 22.5 MG PO BEDTIME traMADol Tab (Ultram Tab) 50 MG PO Q6H -- SUBJECTIVE -- -REVIEW OF SYSTEMS- COMMENT: unable to participate in ROS due to del irium -- OBJECTIVE -- VITALS (05/18 07:43 - 05/19 07:43): Temperature C: 37.0 (36.6 - 37.0) Temperature source: Oral Pulse Rate 106 (92 - 108) Respiratory rate: 18 (17 - 20) BP: 191/102 (160/80 - 202/124) I/Os (05/18 07:00 - 05/19 07:00): Net 675.00 Intake 825.00 Output 150 -EXAM- OTHER: General: Normal appearing adult in bed comfortable HNT: normal head anatomy. normal sclerae, pupils are equal and normal. normal oral mucosae. Normal externa l ears and hair distribution. Neck: No lymphadenopathy or mass. airway midline with thyroid normal Chest: Chest wall is normal. Excursion is limite. Davin th sounds have bibasilar rales. Expiratory phase is normal. Wheezes are absent. Back: + kyphosis. No scoliosis. No tenderness. Cardiovascular: Rhythm is regular JVP a=v waveform at 12 cm water with HJR Pulses Carotid pulses are normal without bruit Radial pulses are normal without subclavian bruit Foot pulses are 4x2 PMI The PMI is sustained and leftl. RV action is impalpable. Valve sounds The first sound is normal. The second sound is normally split Murmur There is no murmur Filling sound A summation filling sound is present Abdomen The abdomen is obese. epigastric, RUQ (70-80's choley), supraumb inf umb scars. There is no pa lpable organomegaly. the wall is soft. Bowel sounds a re present. Extrem. Joints are normal. There is no edema. There is no adenopathy. Skin There is no rash or skin change. Varices are ab sent. Normal skin texture. Neuro In a limited exam, there is no limb weakness. Oriented to person and time. No disturbance of equilibrium is apparent. Speech and understandi ng are normal. 0/3 immediate. She has no insight into illness and is not certain where she is. Psych cooperative -- DATA -- MEDICATIONS LABETALOL HCL 10 MG IV Q6H PRN ALPRAZolam 0.125 MG PO BID PRN ONDANSETRON HCL/PF 4 MG IV Q4H PRN ESCITALOPRAM 10 MG PO DAILY MELATONIN 3 MG PO BEDTIME PRN INSULIN LISPRO 0 UNITS SUBQ Q6HR hydrALAZINE HCL 10 MG IV Q6H PRN ACETAMINOPHEN 650 MG PO Q6H PRN DEXTROSE 50%-WATER 25 ML IV ASDIR (PRN) cloNIDine HCL 0.3 MG TOPICAL Q7D SODIUM CHLORIDE 0.9% 1000 ML IV .[id number] DOCUSATE SODIUM 100 MG PO BID methIMAzole 10 MG PO DAILY FLUTICASONE/VILANTEROL 1 PUFF INH RTDAILY GLUCAGON 1 MG IM ASDIR (PRN) LABS CBC W/AUTO DIFF (05/19/21 06:54) WHITE BLOOD CELL 9.5 RED BLOOD CELL 4.45 HEMOGLOBIN 11.5L L HEMATOCRIT 37.8 MEAN CELL VOLUME 84.9 MEAN CELL HGB 25.8 L MEAN CELL HGB CONCENTRATION 30.4 L RED CELL DISTRIBUTION WIDTH 15.9 PLATELET COUNT 381 MEAN PLATELET VOLUME 9.8 NEUTROPHIL % 86.0 H LYMPHOCYTE % 6.6 L MONOCYTE % 6.9 EOSINOPHIL % 0.1 BASOPHIL % 0.1 NEUTROPHIL # 8.17 H LYMPHOCYTE # 0.63 L MONOCYTE # 0.66 EOSINOPHIL # 0.01 BASOPHIL # 0.01 COMPREHENSIVE METABOLIC PANEL (05/19/21 06:54) SODIUM 144 POTASSIUM 3.3 L CHLORIDE 100 CARBON DIOXIDE 30 GLUCOSE 186 H BLOOD UREA NITROGEN 12 GLOMERULAR FILTRATION RATE >=60 max estimate CREATININE 0.70 TOTAL PROTEIN 6.2 ALBUMIN 3.6 CALCIUM 8.5 L BILIRUBIN TOTAL 0.4 SGOT/AST 20 SGPT/ALT 9 L ALKALINE PHOSPHATASE 111 GLU BED (05/18/21 17:30) GLUBED 192 H GLU BED (05/18/21 11:55) GLUBED 205 H ADDITIONAL COMMENTS: Reviewed CT LVH with uln LV size. left atrial enlargement. M AC. No evidence of severe calcific CAD. No pulmonary edema., Signed in PatientKeeper by Ashanti Barker MD on 05/19/21 at 13:40 at 1340 ATTENTION *EDITS and/or ADDENDA must be made in Patient [facility] for this note. * * Edits and ammendments created in [employer] are not visible * * in Patient Keeper or the legal medical record ([facility]). * RPT #: [id number] END OF REPORT 2021-05-19 07:20:00-00:00 [facility] ([facility]) Progress Note REPORT #: [id number] REPORT STATUS: Signed DATE: 05/19/21 TIME: 719 PATIENT: CYNDI MONTAÑO UNIT #: [id number] ROOM #: [facility] BED: 1 : 51 AGE: 70 SEX: F ATTEND: Kt Holly MD ADM AUTHOR: Armando Chávez ATTENTION *EDITS and/or ADDENDA must be made in Patient [facility] for this note. * * Edits and ammendments created in [employer] are not visible * * in Patient Keeper or the legal medical record ([facility]). * -- ASSESSMENT AND PLAN -- HOSPITAL COURSE TO DATE: PT with partial obstruction of the colon, NGT wa s draining brown fluid yesterday, she pulled it out and now is nauseate d. I think that in order to prevent vomiting and aspiration, replaci ng an NGT is needed as the obstruction is not resolved yet. She will get cardiac evalua tion today and she will be safer to travel with an NGT in place. KUB to follow after placement. Surgical plans after cardiac evaluation is compl eted. NPO for now. -- SUBJECTIVE -- HPI: PT pulled her NGT last night . She says she is nauseated. Nurse reports that she has passed several liquid BMs. -- OBJECTIVE -- VITALS (05/18 07:21 - 05/19 07:21): Temperature C: 37.0 (36.6 - 37.0) Temperature source: Oral Pulse Rate 106 (92 - 108) Respiratory rate: 18 (17 - 20) BP: 191/102 (160/80 - 202/124) I/Os (05/18 07:00 - 05/19 07:00): Net 675.00 Intake 825.00 Output 150 -EXAM- GENERAL: Well developed, well nourished, in no a pparent distress. CHEST: Grossly normal appearance. ABDOMEN: Soft, non-tender, mildly distended, thi ck pannus. No guarding, no rebound, no rigidity. PSYCHIATRIC: Alert, confused. -- DATA -- MEDICATIONS LABETALOL HCL 10 MG IV Q6H PRN ALPRAZolam 0.125 MG PO BID PRN ONDANSETRON HCL/PF 4 MG IV Q4H PRN ESCITALOPRAM 10 MG PO DAILY MELATONIN 3 MG PO BEDTIME PRN INSULIN LISPRO 0 UNITS SUBQ Q6HR hydrALAZINE HCL 10 MG IV Q6H PRN ACETAMINOPHEN 650 MG PO Q6H PRN DEXTROSE 50%-WATER 25 ML IV ASDIR (PRN) cloNIDine HCL 0.3 MG TOPICAL Q7D SODIUM CHLORIDE 0.9% 1000 ML IV .[id number] DOCUSATE SODIUM 100 MG PO BID methIMAzole 10 MG PO DAILY FLUTICASONE/VILANTEROL 1 PUFF INH RTDAILY GLUCAGON 1 MG IM ASDIR (PRN) LABS GLU BED (05/18/21 17:30) GLUBED 192 H GLU BED (05/18/21 11:55) GLUBED 205 H Signed in PatientKeeper by Tonie Chávez MD on 05/19/21 at 07:24 at 0724 ATTENTION *EDITS and/or ADDENDA must be made in Patient [facility] for this note. * * Edits and ammendments created in [employer] are not visible * * in Patient Keeper or the legal medical record ([facility]). * RPT #: [id number] END OF REPORT 2021-05-18 20:23:00-00:00 [facility] ([facility]) Hospitalist Clinical Note REPORT #: [id number] REPORT STATUS: Signed DATE: 05/18/21 TIME: 2022 PATIENT: CYNDI MONTAÑO UNIT #: [id number] ROOM #: P.0635 BED: 1 : 51 AGE: 70 SEX: F ATTEND: Kt Holly MD ADM AUTHOR: Betty Gaffney APRN ATTENTION *EDITS and/or ADDENDA must be made in Patient [facility] for this note. * * Edits and ammendments created in [employer] are not visible * * in Patient Keeper or the legal medical record ([facility]). * -- CO-SIGNATURE -- COMMENTS: Agree with the findings and plan as documented Osmin Hernández NP. Signed in PatientKeeper by KT HOLLY MD on 0 05/28/21 at 14:24 -- NOTATION -- NOTATION: Nurse reports patient 'confused but not pulling on things'. Sitter ordered. Patient seen in bed wide awake, confused about p dalton stating we are in her house. Sitter at bedside. Family called, Grandaubrey barillas spoke with patient reorienting her that she is hospital at [place] and should let hospital staff take of her and reassured her she is getting bet ter. Per Colorectal sx recs No opioid pain medication - Recommend cardiac evaluati on due to hx of CHF and possible pulmonary HTN. May benefit from preop echo Dr. Barker consulted and Echo ordered. BP remains elevated, will gi ve a dose labetalol now in addition to prn. POC d/w nursing staff. Patient currently calm and quiet with sitter at bedside acknowledged speaking with grandson and expecting a call from daughter later. -- DATA -- VITALS Pulse Rate 05/18/21 19:18 102 05/18/21 15:57 98 05/18/21 11:44 99 05/18/21 10:57 97 05/18/21 07:49 92 05/18/21 04:42 104 05/18/21 03:33 05/18/21 02:17 95 05/18/21 00:01 87 05/17/21 20:20 95 SPO2 %: 05/18/21 19:18 92 05/18/21 15:57 91 05/18/21 11:44 93 05/18/21 10:57 93 05/18/21 07:49 99 05/18/21 04:42 95 05/18/21 03:33 94 05/18/21 02:17 05/18/21 00:01 92 05/17/21 20:20 94 Temperature C: 05/18/21 19:18 36.9 05/18/21 15:57 36.6 05/18/21 11:44 36.7 05/18/21 10:57 36.8 05/18/21 07:49 36.8 05/18/21 04:42 36.4 05/18/21 03:33 05/18/21 02:17 05/18/21 00:01 36.6 05/17/21 20:20 Temperature source: 05/18/21 19:18 Oral 05/18/21 15:57 05/18/21 11:44 05/18/21 10:57 05/18/21 07:49 05/18/21 04:42 Oral 05/18/21 03:33 05/18/21 02:17 05/18/21 00:01 Oral 05/17/21 20:20 Respiratory rate: 05/18/21 19:18 19 05/18/21 15:57 18 05/18/21 11:44 17 05/18/21 10:57 18 05/18/21 07:49 18 05/18/21 04:42 17 05/18/21 03:33 05/18/21 02:17 18 05/18/21 00:01 16 05/17/21 20:20 Blood pressure: 05/18/21 19:18 196 / 113 05/18/21 15:57 185 / 115 05/18/21 11:44 202 / 124 05/18/21 10:57 180 / 112 05/18/21 07:49 201 / 104 05/18/21 04:42 214 / 104 05/18/21 03:33 05/18/21 02:17 197 / 105 05/18/21 00:01 204 / 120 05/17/21 20:20 199 / 116 Signed in PatientKeeper by Betty Gaffney APRN on 05/18/21 at 21:47 Cosigned by KT HOLLY MD on 05/28/21 at 14:2 4 Electronically Signed by Betty Gaffney on at 1424 Electronically Signed by Kt Holly MD on at 1424 ATTENTION *EDITS and/or ADDENDA must be made in Patient Ke eper for this note. * * Edits and ammendments created in [facility] are not visible * * in Patient Keeper or the legal medical record ([facility]). * RPT #: [id number] END OF REPORT 2021-05-18 14:17:00-00:00 [facility] ([facility]) Surgical Post Op Progress Note REPORT #: [id number] REPORT STATUS: Signed DATE: 05/18/21 TIME: 1416 PATIENT: CYNDI MONTAÑO UNIT #: [id number] ROOM #: P.0635 BED: 1 : 51 AGE: 70 SEX: F ATTEND: Kt Holly MD ADM AUTHOR: Lorenzo Monaco DO ATTENTION *EDITS and/or ADDENDA must be made in Patient [facility] for this note. * * Edits and ammendments created in [facility] are not visible * * in Patient Keeper or the legal medical record ([facility]). * -- ASSESSMENT AND PLAN -- GENERAL ASSESSMENT: 70 yo F with a pmhx of DM, C onstipation, HTN, CHF, Hypothyroid, and anxiety who presented with findings of a partial large bowel obstruction 2/2 sigmoid structure obstruction with strictures - NG tube in place. Output noted to be brownish. Continue to LIS - Encourage ambulation - Abdominal exam improved. - No opioid pain medication - Appears to not be full obstructed at this time . - Recommend cardiac evaluati on due to hx of CHF and possible pulmonary HTN. May benefit from preop echo. - Will continue to follow closely. Will likely need resection during this stay once medical conditions have be optimized. -- SUBJECTIVE -- HOSPITAL DAY: 2 CHIEF COMPLAINT: abdominal discomfort HPI: No acute events overnight. afebrile. overall fee ls slightly better this am. Having some liquid BMs and passing flatus. NG tu be with brownish output. -- OBJECTIVE -- VITALS (05/17 14:17 - 05/18 14:17): Temperature C: 36.7 (36.4 - 36.9) Temperature source: Oral Pulse Rate 99 (87 - 104) Respiratory rate: 17 (16 - 18) BP: 202/124 (180/104 - 214/124) I/Os (05/17 07:00 - 05/18 07:00): Net 600.00 Intake 1,650.00 Output 1,050 -EXAM- NECK: No masses, no thyromegaly, no abnormal cer vical nodes, trachea midline. LUNGS: Clear bilaterally with normal respiratory effort. ABDOMEN: distended, tympanic, well healed Keith incision and midline incision NEUROLOGICAL: No focal deficits, cranial nerves II-XII grossly intact, normal sensation, normal reflexes, normal coord ination, normal muscle strength, normal tone. PULSES: Pulses normal in all extremities. SKIN: Intact without significant lesions, or tai hes. LYMPH NODES: No significant cervical node adenop athy. No significant axillary node adenopathy. No significant inguin al node adenopathy. -- DATA -- MEDICATIONS LABETALOL HCL 10 MG IV Q6H PRN ALPRAZolam 0.125 MG PO BID PRN ONDANSETRON HCL/PF 4 MG IV Q4H PRN ESCITALOPRAM 10 MG PO DAILY MELATONIN 3 MG PO BEDTIME PRN INSULIN LISPRO 0 UNITS SUBQ Q6HR hydrALAZINE HCL 10 MG IV Q6H PRN POTASSIUM CHLORIDE 20 MEQ IV Q2H ACETAMINOPHEN 650 MG PO Q6H PRN DEXTROSE 50%-WATER 25 ML IV ASDIR (PRN) cloNIDine HCL 0.3 MG TOPICAL Q7D SODIUM CHLORIDE 0.9% 1000 ML IV .[id number] DOCUSATE SODIUM 100 MG PO BID methIMAzole 10 MG PO DAILY FLUTICASONE/VILANTEROL 1 PUFF INH RTDAILY GLUCAGON 1 MG IM ASDIR (PRN) morphine SULFATE 4 MG IV Q6H PRN LABS GLU BED (05/18/21 11:55) GLUBED 205 H GLU BED (05/18/21 07:21) GLUBED 213 H GLU BED (05/18/21 06:51) GLUBED 257 H CBC W/AUTO DIFF (05/18/21 06:06) WHITE BLOOD CELL 8.3 RED BLOOD CELL 4.66 HEMOGLOBIN 12.1 HEMATOCRIT 38.9 MEAN CELL VOLUME 83.5 MEAN CELL HGB 26.0 L MEAN CELL HGB CONCENTRATION 31.1 L RED CELL DISTRIBUTION WIDTH 15.7 PLATELET COUNT 397 MEAN PLATELET VOLUME 10.1 NEUTROPHIL % 86.3 H LYMPHOCYTE % 5.7 L MONOCYTE % 7.6 EOSINOPHIL % 0.0 BASOPHIL % 0.0 NEUTROPHIL # 7.13 LYMPHOCYTE # 0.47 L MONOCYTE # 0.63 EOSINOPHIL # 0.00 BASOPHIL # 0.00 COMPREHENSIVE METABOLIC PANEL (05/18/21 06:06) SODIUM 143 POTASSIUM 3.2 L CHLORIDE 99 CARBON DIOXIDE 30 GLUCOSE 231 H BLOOD UREA NITROGEN 10 GLOMERULAR FILTRATION RATE >=60 max estimate CREATININE 0.60 TOTAL PROTEIN 6.0 ALBUMIN 3.4 CALCIUM 8.4 L BILIRUBIN TOTAL 0.3 SGOT/AST 16 SGPT/ALT < 7 L ALKALINE PHOSPHATASE 118 H LIPID PROFILE (CORONARY RISK) (05/18/21 06:06) TRIGLYCERIDES 86 CHOLESTEROL 145 HDL CHOLESTEROL 46 LIPOPROTEIN LDL 79 CORONARY RISK FACTOR 3.15 HGBA1C - GLYCOSYLATED HGB (05/18/21 06:06) GLYCOSYLATED HEMOGLOBIN (HA1C) 6.9 H GLU BED (05/18/21 01:33) GLUBED 200 H GLU BED (05/17/21 20:18) GLUBED 260 H GLU BED (05/17/21 16:49) GLUBED 221 H Signed in PatientKeeper by Lorenzo Monaco DO on 0 05/18/21 at 14:24 Electronically Signed by Lorenzo Monaco DO on 06/05 at 1424 ATTENTION *EDITS and/or ADDENDA must be made in Patient [facility] for this note. * * Edits and ammendments created in [facility] are not visible * * in Patient Keeper or the legal medical record ([facility]). * RPT #: [id number] END OF REPORT 2021-05-18 11:13:00-00:00 [facility] ([facility]) Hospitalist Progress Note REPORT #: [id number] REPORT STATUS: Signed DATE: 05/18/21 TIME: 1113 PATIENT: CYNDI MONTAÑO UNIT #: [id number] ROOM #: P.0635 BED: 1 : 51 AGE: 70 SEX: F ATTEND: Kt Holly MD ADM AUTHOR: Garry Castañeda MD ATTENTION *EDITS and/or ADDENDA must be made in Patient [facility] for this note. * * Edits and ammendments created in [facility] are not visible * * in Patient Keeper or the legal medical record ([facility]). * -- ASSESSMENT AND PLAN -- GENERAL ASSESSMENT: Large Colon Bowel obstruction with strictures -+Abd pain, no BM x 1 week -Colon and rectal surgery consult Dr Monaco, Ma rk -Abd US -prn morphine and Zofran for pain and nausea con trol NGT in place medical management at this time continue to follow drainage and XR Constipation -MiraLAX twice daily as needed -Colace -GI following DM 2 -A1c -Accu-Chek with SSI HTN -Uncontrolled -236/144 per OSH -Improved with labetalol -prn labetalol clonidine patch 0.3 Thyroid disorder -TSH -Home medication Anxiety disorder -Continue home regimen DVT /GI ppx SCD/famotidine full code Physician: Pending clinical course -- SUBJECTIVE -- HPI: BP has been elevated 200 systolic clonidine patc h 0.3 which is quite large dose - we will continue to observe for n ow as I do not want to drop her BP too fast NGT in place for bowel obstruction- draining padmini k fluids abdomen non tender small gas pattern on Abd Xray continue iv fluids -- OBJECTIVE -- VITALS (05/17 11:14 - 05/18 11:14): Temperature C: 36.8 (36.4 - 36.9) Temperature source: Oral Pulse Rate 97 (87 - 104) Respiratory rate: 18 (16 - 18) BP: 180/112 (180/104 - 214/145) I/Os (05/17 07:00 - 05/18 07:00): Net 600.00 Intake 1,650.00 Output 1,050 -EXAM- GENERAL: Well developed, well nourished, in no a pparent distress. NECK: No masses, no thyromegaly, no abnormal cer vical nodes, trachea midline. LUNGS: Clear bilaterally with normal respiratory effort. ABDOMEN: distended, tympanic, well healed Koche r incision and midline incision NEUROLOGICAL: No focal deficits, cranial nerves II-XII grossly intact, normal sensation, normal reflexes, normal coor dination, normal muscle strength, normal tone. PULSES: Pulses normal in all extremities. SKIN: Intact without significant lesions, or ra shes. LYMPH NODES: No significant cervical node adenop athy. No significant axillary node adenopathy. No significant inguin al node adenopathy. -- DATA -- MEDICATIONS LABETALOL HCL 10 MG IV Q6H PRN ALPRAZolam 0.125 MG PO BID PRN ONDANSETRON HCL/PF 4 MG IV Q4H PRN bisacodyL 10 MG RECTAL Q3H ESCITALOPRAM 10 MG PO DAILY MELATONIN 3 MG PO BEDTIME PRN INSULIN LISPRO 0 UNITS SUBQ Q6HR hydrALAZINE HCL 10 MG IV Q6H PRN POTASSIUM CHLORIDE 20 MEQ IV Q2H ACETAMINOPHEN 650 MG PO Q6H PRN DEXTROSE 50%-WATER 25 ML IV ASDIR (PRN) cloNIDine HCL 0.3 MG TOPICAL Q7D SODIUM CHLORIDE 0.9% 1000 ML IV .[id number] DOCUSATE SODIUM 100 MG PO BID methIMAzole 10 MG PO DAILY FLUTICASONE/VILANTEROL 1 PUFF INH RTDAILY GLUCAGON 1 MG IM ASDIR (PRN) LABS CBC W/AUTO DIFF (05/18/21 06:06) WHITE BLOOD CELL 8.3 RED BLOOD CELL 4.66 HEMOGLOBIN 12.1 HEMATOCRIT 38.9 MEAN CELL VOLUME 83.5 MEAN CELL HGB 26.0 L MEAN CELL HGB CONCENTRATION 31.1 L RED CELL DISTRIBUTION WIDTH 15.7 PLATELET COUNT 397 MEAN PLATELET VOLUME 10.1 NEUTROPHIL % 86.3 H LYMPHOCYTE % 5.7 L MONOCYTE % 7.6 EOSINOPHIL % 0.0 BASOPHIL % 0.0 NEUTROPHIL # 7.13 LYMPHOCYTE # 0.47 L MONOCYTE # 0.63 EOSINOPHIL # 0.00 BASOPHIL # 0.00 COMPREHENSIVE METABOLIC PANEL (05/18/21 06:06) SODIUM 143 POTASSIUM 3.2 L CHLORIDE 99 CARBON DIOXIDE 30 GLUCOSE 231 H BLOOD UREA NITROGEN 10 GLOMERULAR FILTRATION RATE >=60 max estimate CREATININE 0.60 TOTAL PROTEIN 6.0 ALBUMIN 3.4 CALCIUM 8.4 L BILIRUBIN TOTAL 0.3 SGOT/AST 16 SGPT/ALT < 7 L ALKALINE PHOSPHATASE 118 H LIPID PROFILE (CORONARY RISK) (05/18/21 06:06) TRIGLYCERIDES 86 CHOLESTEROL 145 HDL CHOLESTEROL 46 LIPOPROTEIN LDL 79 CORONARY RISK FACTOR 3.15 HGBA1C - GLYCOSYLATED HGB (05/18/21 06:06) GLYCOSYLATED HEMOGLOBIN (HA1C) 6.9 H GLU BED (05/18/21 01:33) GLUBED 200 H GLU BED (05/17/21 20:18) GLUBED 260 H GLU BED (05/17/21 16:49) GLUBED 221 H GLU BED (05/17/21 12:20) GLUBED 207 H -- ATTESTATION -- TIME SPENT ON PATIENT CARE: - Direct 15 minutes - Coordination of Care 18 minutes CARE ACTIVITIES / CARE COORDINATION: - I have reviewed the history and repeated the wheat elements - I have seen and examined this patient Signed in PatientKeeper by Garry Castañeda MD on 05/18/21 at 11:17 Electronically Signed by Garry Castañeda MD o n 05/18/21 at 1117 ATTENTION *EDITS and/or ADDENDA must be made in Patient Ke eper for this note. * * Edits and ammendments created in [employer] are not visible * * in Patient Keeper or the legal medical record ([facility]). * RPT #: [id number] END OF REPORT 2021-05-18 09:36:00-00:00 [facility] ([facility] Med Order Sheet REPORT #: [id number] REPORT STATUS: Signed DATE: 05/18/21 TIME: 935 PATIENT: CYNDI MONTAÑO UNIT #: [id number] ROOM #: P.0635 BED: 1 : 51 AGE: 70 SEX: F ATTEND: Kt Holly MD ADM AUTHOR: Garry Castañeda MD ATTENTION *EDITS and/or ADDENDA must be made in Patient Ke eper for this note. * * Edits and ammendments created in [employer] are not visible * * in Patient Keeper or the legal medical record ([facility]). * Admission Medication Reconciliation -- CONTINUED / CHANGED HOME MEDICATIONS -- Home: ALPRAZolam Tab (Xanax Tab) 0.125 MG PO BID PRN anxiety Hosp: ALPRAZolam Tab (Xanax Tab) 0.125 MG PO BID PRN anxiety Home: Escitalopram Tab (Lexapro Tab) 10 MG PO DA NE Hosp: Escitalopram Tab (Lexapro Tab) 10 MG PO DA NE Home: Flutica/Vilant 200/25 Inh (Breo Ellipta 20 0/25 Inh) 1 PUFF INH RTDAILY Hosp: Flutica/Vilant 200/25 Inh (Breo Ellipta 20 0/25 Inh) 1 PUFF INH RTDAILY Home: methIMAzole tablet 10 MG PO DAILY Hosp: Methimazole Tab (Tapazole Tab) 10 MG PO DA NE The following home medications have not yet been reconciled: Apixaban Tab (Eliquis Tab) 5 MG PO BID Furosemide Tab (Lasix Tab) Oral Lactulose Oral Liquid (Enulose Oral Liquid) 30 M L PO DAILY Sotalol Tab (Betapace Tab) 80 MG PO BID Temazepam Cap (Restoril Cap) 22.5 MG PO BEDTIME traMADol Tab (Ultram Tab) 50 MG PO Q6H PRN acute pain Electronically Signed by Garry Castañeda MD o n 05/18/21 at 0936 ATTENTION *EDITS and/or ADDENDA must be made in Patient Ke eper for this note. * * Edits and ammendments created in [facility] are not visible * * in Patient Keeper or the legal medical record ([facility]). * [facility] #: [id number] END OF REPORT 2021-05-18 07:13:00-00:00 [id number] [facility] [address] [place] [address] PATIENT NAME: CYNDI MONTAÑO ADMIT DATE: 05/17/21 ACCOUNT NO: [id number] ROOM NO: [id number] AGE: 70 REPORT TYPE: CONSULTATION SEX: F ADMITTING PHYSICIAN:Kt Holly MD ATTENDING PHYSICIAN:Kt Holly MD CONSULTATION DATE: 05/18/2021 CONSULTING PHYSICIAN: Antony Milner Jr, MD PROBLEMS: 1. Probable severe sigmoid diverticulosis divert icular disease with luminal partial obstruction. Rule out occult colonic mal ignancy. 1. Incomplete attempted colonoscopy 1 year ago. RECOMMENDATIONS: 1. Consider colonoscopy to determine if any intr insic colonic lesion. 2. Anticipate colon resection of sigmoid colon. DISCUSSION: A 70-year-old female who is seen for evaluation of abdominal pain. The patient had been experie ncing recurrent episodes of abdominal pain primarily in the left lower quadrant. Pain was relatively severe, but not associated with any problems of vomiting. She is passing some small amount of gas. She has had a NG tube in place to provide decompression of h er colon. The patient states that approximately a year ago an attempt of colo noscopy was made that was incomplete possibly secondary to narrowing of th e lumen. The patient has not had any episodes of chills or fever with these e vents. REVIEW OF SYSTEMS: CARDIOPULMONARY: The patient presently denies an y chest pain or shortness of breath. PAST MEDICAL HISTORY: Has included diabetes shanthi itus. Essential hypertension. Migraine headaches. Cerebrov ascular disease with previous TIA, status post open cholecystectomy. Previous female surgery, possib le . Bowel abdominal wall hernia repair. Status post vaginal hysterec waqas. Diverticulosis with apparently previous episodes of diverticulitis. FAMILY HISTORY: Diabetes and hypertension. ALLERGIES: NONE KNOWN. HABITS: The patient denies any cigarette use. Al cohol use is only socially. MEDICATIONS: At home have included Breo Ellipta 1 puff twice a day. Eliquis 5 mg twice a day, methimazole 10 mg daily, Lexap ro 10 mg once a day, lactulose 30 mg daily, sotalol 30 mg alyssa ly, furosemide once a day. Tramadol as needed, temazepam as needed for sleep. PATIENT NAME: CYNDI MONTAÑO 665 PHYSICAL EXAMINATION: VITAL SIGNS: Height is 5 feet 5 inches, weight is 102.0 kilograms. Temperature is 36.4, pulse of 104, respirations of 17, blood pressure is 214/104. GENERAL: The patient is alert, no acute distress . She is responsive. She has NG tube in place. SKIN: Moist without rash or erythema. LYMPHATICS: No supraclavicular, no axillary audrey opathy. HEENT: Eyes: Pupils are round. The patient is no t icteric. Nose: Nasal septum is in midline. No nasal polyps. SKIN: No nasal polyps. NECK: NG tube is in place. Supple. No palpable m ass. LUNGS: No wheezing. HEART: S1 and S2 within normal limits. No palomino ps. No clicks. No rubs. ABDOMEN: Soft with surgical scars well healed. T here is no distention at this time. Bowel sounds are present. There is no rebo und, no guarding. BACK: No CVA tenderness. EXTREMITIES: No edema or cyanosis. NEUROLOGICAL: The patient is alert. She is respo nsive. She has no clear focal deficits. PERTINENT LABORATORY STUDIES: Revealing H and H of 12.1 and 38.9 with a WBC of 8300. Alkaline phosphatase is 118. Potassium was 3.2. ASSESSMENT: The patient clinically is stable. S he is tolerating NG tube in abdomen is relatively benign at this time. We will follow up on abdominal x-ray to determine if better assess if small bowel dil ation has improved. Also, the patient does need better control of bloo d pressure to consider proceeding with further intervention. Colonoscopy with a ttempts at a complete visualization of the colon is desired if poss ible prior to surgery or to be done after a surgical intervention. Thank you letting me to kassandra robledo in the care of this patient and we will follow her along with you as needed during hospitalization. Dictated By: Antony Milner Jr, MD WT: CON:LEONORA/VIRIDIANA/DEBI Conf#: [id number]/DID#: [id number] Authenticated and Edited by Antony ambriz MD On 05/19/21 9:33:49 AM at 0935 PATIENT NAME: CYNDI MONTAÑO 665 2021-05-17 11:21:00-00:00 [facility] ([facility]) Hospitalist Clinical Note REPORT #: [id number] REPORT STATUS: Signed DATE: 05/17/21 TIME: 1121 PATIENT: CYNDI MONTAÑO UNIT #: [id number] ROOM #: P.0635 BED: 1 : 51 AGE: 70 SEX: F ATTEND: Kt Holly MD ADM AUTHOR: Garry Castañeda MD ATTENTION *EDITS and/or ADDENDA must be made in Patient Ke eper for this note. * * Edits and ammendments created in [employer] are not visible * * in Patient Keeper or the legal medical record ([facility]). * -- NOTATION -- NOTATION: Discussed with sx holding anticoagulation NGT in place Signed in PatientKeeper by Garry Castañeda MD on 05/17/21 at 11:22 Electronically Signed by Garry Castañeda MD o n 05/17/21 at 1122 ATTENTION *EDITS and/or ADDENDA must be made in Patient [facility] for this note. * * Edits and ammendments created in [employer] are not visible * * in Patient Keeper or the legal medical record ([facility]). * RPT #: [id number] END OF REPORT 2021-05-17 09:07:00-00:00 [facility] ([facility]) General Surg. Consultation REPORT #: [id number] REPORT STATUS: Signed DATE: 05/17/21 TIME: 906 PATIENT: CYNDI MONTAÑO UNIT #: [id number] ROOM #: P.0635 BED: 1 : 51 AGE: 70 SEX: F ATTEND: Kt Holly MD ADM AUTHOR: Ho Corado MD ATTENTION *EDITS and/or ADDENDA must be made in Patient [facility] for this note. * * Edits and ammendments created in [employer] are not visible * * in Patient Keeper or the legal medical record ([facility]). * -- ASSESSMENT AND PLAN -- GENERAL ASSESSMENT: 70 year old female patient with large bowel obst ruction as per report. We are in the process of working her up. Given her Dive rticulitis hx it is possible she has a diverticular stricture. We will try to obtain the CT scan report and col onoscopy report from the OSH. She is clinically stable her BP is 187/129, HR 94 , RR16, and normal WC. She is passing small amounts of gas and had small bowel movement yesterday 3pm. There is no need for surgery currently but that could change. By now we have placed an ngt - 500 cc brownish looking output o n placement. 1- Obtain reports of ct scan and colonoscopy - h ospital has been contacted. 2- Repeat CT scan and pelvis with IV con trast if timing from last scan allows. 3.- Discussed with DR. Castañeda () to hold Eliq uis. 4.- CORS will follow Seen and examined with Dr. Monaco. -- HISTORY -- CHIEF COMPLAINT: Abdominal pain HPI: This is a 70 year old female patient with extensive past medical hx transferred from OSH due to large bowel obstruction. The his tory was obtained from her daughter Court over the phone and the patient h erself. She started to develop abdom inal pain about 2 weeks ago, however became worse 2 days ago. Pain was diffuse, accompanied by nausea and vomiting and constipation for 3 days. She denies fevers. States passed gas last time y esterday 3 pm, at the same time had an episode of diarrhea. She went to her local ER where a CT scan was don e and showed apparently large bowel obstruction. I did not find the report in the transfer envelope. She has a hx of 2-3 Divertic ulitis attacks. Her last colonoscopy was [address] Orosco in [place]. It was inc omplete, we are not sure if it was due to a stricture or poor prep. He wanted to repeat the colonoscopy but it was never done. She is at this moment comfortable in bed. Compla ints of abdominal distention and pain. her vitals are WNL. Her WC on admission is 7, HH 12/42. She has a hx of open cholecystectomy and Hiatal hernia repair. No hx per the daughter of bowel resection. PAST SURGICAL HISTORY: as above -- ALLERGIES/HOME MEDS -- ALLERGIES: No Known Allergies (UNKNOWN - Allergy) HOME MEDICATIONS: ALPRAZolam Tab (Xanax Tab) 0.125 MG PO BID Apixaban Tab (Eliquis Tab) 5 MG PO BID Escitalopram Tab (Lexapro Tab) 10 MG PO DAILY Flutica/Vilant 200/25 Inh (Breo Ellipta 200/25 I nh) 1 PUFF INH RTDAILY Furosemide Tab (Lasix Tab) Oral Lactulose Oral Liquid (Enulose Oral Liquid) 30 M L PO DAILY methIMAzole tablet 10 MG PO DAILY Sotalol Tab (Betapace Tab) 80 MG PO BID Temazepam Cap (Restoril Cap) 22.5 MG PO BEDTIME traMADol Tab (Ultram Tab) 50 MG PO Q6H -- OBJECTIVE -- -EXAM- GENERAL: Well developed, well nourished, in no a pparent distress. NECK: No masses, no thyromegaly, no abnormal cer vical nodes, trachea midline. LUNGS: Clear bilaterally with normal respiratory effort. ABDOMEN: distended, tympanic, well healed Keith incision and midline incision NEUROLOGICAL: No focal deficits, cranial nerves II-XII grossly intact, normal sensation, normal reflexes, normal coord ination, normal muscle strength, normal tone. PULSES: Pulses normal in all extremities. SKIN: Intact without significant lesions, or tai hes. LYMPH NODES: No significant cervical node adenop athy. No significant axillary node adenopathy. No significant inguin al node adenopathy. -- DATA -- MEDICATIONS LABETALOL HCL 10 MG IV Q6H PRN morphine SULFATE 2 MG IV Q6H PRN ONDANSETRON HCL/PF 4 MG IV Q4H PRN MELATONIN 3 MG PO BEDTIME PRN INSULIN LISPRO 0 UNITS SUBQ Q6HR hydrALAZINE HCL 10 MG IV Q6H PRN polyethylene glycoL 3350 1 PKT PO DAILY PRN ACETAMINOPHEN 650 MG PO Q6H PRN DEXTROSE 50%-WATER 25 ML IV ASDIR (PRN) SODIUM CHLORIDE 0.9% 1000 ML IV .[id number] DOCUSATE SODIUM 100 MG PO BID polyethylene glycoL 3350 1 PKT PO BID GLUCAGON 1 MG IM ASDIR (PRN) LABS MAG (05/17/21 07:48) MAGNESIUM 1.6 COMPREHENSIVE METABOLIC PANEL (05/17/21 07:48) SODIUM 141 POTASSIUM 3.4 L CHLORIDE 97 L CARBON DIOXIDE 32 H GLUCOSE 193 H BLOOD UREA NITROGEN 12 GLOMERULAR FILTRATION RATE >=60 max estimate CREATININE 0.70 TOTAL PROTEIN 6.4 ALBUMIN 3.7 CALCIUM 8.7 BILIRUBIN TOTAL 0.5 SGOT/AST 21 SGPT/ALT 8 L ALKALINE PHOSPHATASE 132 H TSH (05/17/21 07:48) THYROID STIMULATING HORMONE 1.25 PTT (05/17/21 07:48) THROMBOPLASTIN TIME PARTIAL 30.6 PROTHROMBIN TIME (05/17/21 07:48) PROTHROMBIN TIME PATIENT 14.5 H INTERNATIONAL NORMAL RATIO 1.27 H CBC W/AUTO DIFF (05/17/21 07:48) WHITE BLOOD CELL 7.7 RED BLOOD CELL 5.00 HEMOGLOBIN 12.9 HEMATOCRIT 42.0 MEAN CELL VOLUME 84.0 MEAN CELL HGB 25.8 L MEAN CELL HGB CONCENTRATION 30.7 L RED CELL DISTRIBUTION WIDTH 15.5 PLATELET COUNT 366 MEAN PLATELET VOLUME 9.8 NEUTROPHIL % 76.6 H LYMPHOCYTE % 12.5 L MONOCYTE % 10.1 H EOSINOPHIL % 0.3 BASOPHIL % 0.1 NEUTROPHIL # 5.89 LYMPHOCYTE # 0.96 L MONOCYTE # 0.78 EOSINOPHIL # 0.02 BASOPHIL # 0.01 Signed in PatientKeeper by Kd Corado MD on 05/17/21 at 10:15 at 1015 ATTENTION *EDITS and/or ADDENDA must be made in Patient Ke eper for this note. * * Edits and ammendments created in [facility] are not visible * * in Patient Keeper or the legal medical record ([facility]). * [facility] #: [id number] END OF REPORT 2021-05-17 06:21:00-00:00 [facility] ([facility]) Hospitalist Sharon Tyrel REPORT #: [id number] REPORT STATUS: Signed DATE: 05/17/21 TIME: 620 PATIENT: CYNDI MONTAÑO UNIT #: [id number] ROOM #: P.0635 BED: 1 : 51 AGE: 70 SEX: F ATTEND: Kt Holly MD ADM AUTHOR: Betty Gaffney APRN ATTENTION *EDITS and/or ADDENDA must be made in Patient Ke eper for this note. * * Edits and ammendments created in [employer] are not visible * * in Patient Keeper or the legal medical record ([facility]). * -- CO-SIGNATURE -- COMMENTS: Agree with the findings and plan as documented Osmin Hernández NP. Signed in PatientKeeper by KT HOLLY MD on 0 05/18/21 at 13:13 -- HISTORY -- ADMISSION DATE: 2021-05-17 PRIMARY CARE PROVIDER: Primary or Family Physician, No CHIEF COMPLAINT: Abdominal pain, transfer from [facility] for large Colon Bowel obstruction with stricture HPI: The patient is a 70-year-old female with a past medical history of anxiety, DM 2, HTN, migraines, thyroid problem, and TIA who presents originally to outside hospital with a chief complaint of abdominal kenny n x1 week with no bowel movement x1 week and worsening abdominal distent ion/mass. Outside hospital presentation found patient h ypertensive BP 235/144, tachycardic 121, tachypneic 22, Temp 98.6 degrees Fahren heit, a pain scale 7/10 CT abdomen and pelvics with large bowel obstruction at the junction of desce nding and sigmoid:: Bowel obstruction. 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 Patient states she had bowel movement at th e facility yesterday though remains mildly distended with mild discomfort bu t currently reports feeling better. PAST MEDICAL HISTORY: Anxiety Diabetes mellitus HTN Migraines Thyroid problem TIA PAST SURGICAL HISTORY: Cholecystectomy Hysterectomy IMMUNIZATION STATUS: Not up-to-date. Fully COVID vaccinated. FAMILY HISTORY: DM, HTN -SOCIAL HISTORY- -VAPING/INHALED SOLVENTS- DETAILS/COMMENTS: Reviewed, denies. -ALCOHOL USE- DETAILS/COMMENTS: Reviewed, denies. -DRUG USE- DETAILS/COMMENTS: Reviewed, denies. MARITAL STATUS: LIVING SITUATION: Lives with daughter. Independent with most ADLs ADDITIONAL SOCIAL HISTORY: Ambulates with cane, walker -- ALLERGIES/HOME MEDS -- ALLERGIES: No Known Allergies (UNKNOWN - Allergy) -- SUBJECTIVE -- -REVIEW OF SYSTEMS- GENERAL: Negative for fever, malaise, fatigue. EYES: Negative for blurry vision. No diplopia. EARS/NOSE/THROAT: Negative for sore throat. No o talgia. No rhinorrhea. BREAST: Negative for change in shape, swelling, masses, nipple discharge, pain, skin changes. RESPIRATORY: Negative for dyspnea or wheeze. No cough. CARDIOVASCULAR: Negative for chest pain or palpi tations. +extremity swelling. GASTROINTESTINAL: Reports abdominal pain, discom fort, bloating, nausea and vomiting. No diarrhea. GENITOURINARY: Negative for dysuria, frequency, or urgency. No gross hematuria. MUSCULOSKELETAL: Negative for joint stiffness, p ain, or arthralgias. SKIN: Negative for rashes. No pruritus. NEUROLOGICAL: Negative for headache. No vertigo. Denies paresthesias. PSYCHIATRIC: Negative for specific complaints. ENDOCRINE: Negative for cold intolerance, heat i ntolerance, polyphagia, polydipsia, polyuria, weight change , fatigue. HEMATALOGIC / LYMPHORETICULAR: Negative for exce ssive bleeding, unusual masses. ALLERGIC / IMMUNOLOGIC: Negative for heat/cold i ntolerance, polydipsia, or polyuria. -- OBJECTIVE -- -EXAM- GENERAL: Well developed, well nourished, in no apparent distress. HEAD: Normocephalic, atraumatic. EYES: PERRL, EOM intact, conjunctiva and sclera clear, without nystagmus, lids normal. EARS: TM's intact and clear, normal canals, kaela sly normal hearing. NOSE: No deformity, no discharge, no inflammati on, no lesions. MOUTH: Oropharynx without deformities or lesions , normal mucosa.. NECK: No masses, no thyromegaly, no abnormal cer vical nodes, trachea midline. CHEST: Grossly normal appearance. BREAST: No masses, no gynecomastia noted. LUNGS: Clear bilaterally with normal respiratory effort. HEART: Regular rate and rhythm, normal S1, S2, n o murmurs, no rubs, no gallops, no clicks. ABDOMEN: Mildly hard with TTP to upper abd area, Soft for most part Obese with mild distention BS+ MUSCULOSKELETAL: No deformity, no scoliosis note d of thoracic or lumbar spine, joint ROM grossly normal, normal gait an d station. EXTREMITIES: No clubbing, no cyanosis, 1+ edema BLE NEUROLOGICAL: No focal deficits, cranial nerves II-XII grossly intact, normal sensation, normal reflexes, normal coord ination, normal muscle strength, normal tone. PULSES: Pulses normal in all extremities. GENITOURINARY: Normal external genitalia. LYMPH NODES: No significant cervical node adenop athy. No significant axillary node adenopathy. No significant inguin al node adenopathy. PSYCHIATRIC: Alert and oriented to time, person, place. Normal mood and affect, intact judgment and insight. -- DATA -- ADDITIONAL COMMENTS: Outside hospital laboratory studies CBC WBC-8.7 RBC-5.20 Hgb-13.6 HCT-41.8 MCV-80.4 MCH-26.1 MCHC-32.5 PLT-390 RDW-16.7 CMP NA-135 K-3.8 CL-97 CO2-28 Glucose-220 BUN-11 Creatinine-0.93 GFR-72 AST-28 ALT-50 Alk phos-138 Bili T-0.6 CA-9.6 -- ASSESSMENT AND PLAN -- GENERAL ASSESSMENT: Large Colon Bowel obstruction with strictures -+Abd pain, no BM x 1 week -Colon and rectal surgery consult Dr Monaco, Ma rk -Abd US -prn morphine and Zofran for pain and nausea con trol Constipation -MiraLAX twice daily as needed -Colace -GI consult DM 2 -A1c -Accu-Chek with SSI HTN -Uncontrolled -236/144 per OSH -Improved with labetalol -prn labetalol Thyroid disorder -TSH -Home medication Anxiety disorder -Continue home regimen DVT /GI ppx SCD/famotidine full code Physician: Pending clinical course -- QUALITY -- -MEDICATIONS- - Unable to obtain an accurate home med ication list at this time. The patient is in an urgent or emergent medical situ ation where time is of the essence. To delay treatment would jeopardize the pat ient's health status on the day of the encounter. 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 Patient states moises perez will make medical decision for her if she is unable to make it for hers elf. Patient wishes to be full code in the event of cardiopulmonary arrest. -- ATTESTATION -- TIME SPENT ON PATIENT CARE: - Direct - > 50% of time spent on Counseling/Care Reji ramírez Signed in PatientKeeper by Betty Gaffney APRN on 05/17/21 at 07:21 Cosigned by KT HOLLY MD on 05/18/21 at 13:1 3 Electronically Signed by Betty Gaffney on at 1313 Electronically Signed by Kt Holly MD on 06/05 at 1313 ATTENTION *EDITS and/or ADDENDA must be made in Patient Ke eper for this note. * * Edits and ammendments created in [employer] are not visible * * in Patient Keeper or the legal medical record (HPF). * [facility] #: [id number] END OF REPORT
[2022-07-15] MEDS ORDERED: NA CHLORIDE 0.9% 1,000 ML ONE (23:28)
[2022-07-15 23:59] LABS: Absolute Lymphocytes (CBC) 1.9 K/uL (0.7-4.9); Hematocrit 36.4 % (36.0-45.0); Lymphocytes % 20.2 % (15.3-44.8); MCV 81.4 fL (80-100); MPV 8.4 fL (7.6-11.3); RBC Red Blood Cell Count 4.47 M/uL (3.86-4.86)
[2022-07-16 00:03] LABS: Protime INR 1.66
[2022-07-16] MEDS ORDERED: PIPERACIL/TAZO 3.375 GM VIAL IV ONE ×2 (00:10→00:17)
[2022-07-16] MEDS ORDERED: NA CHLORIDE 0.9% 100 ML ONE (00:10)
[2022-07-16 00:13] LABS: Albumin 2.5 g/dL (3.4-5.0); Bilirubin Total 1.2 mg/dL (0.2-1.0); Magnesium 1.9 mg/dL (1.6-2.4); Potassium 4.9 mEq/L (3.5-5.1); Protein, Total 6.8 g/dL (6.4-8.2); Troponin High Sensitivity 58.1 pg/mL (<58.9)
[2022-07-16] MEDS ORDERED: FAMOTIDINE 20 MG/2 ML VIAL IV ONE (00:58)
--- NOTE | 2022-07-16 01:18 | ER ---
Nurse's Notes [facility] Name: Blanka Ferrell Age: 71 yrs Sex: Female : 1950 Arrival Date: 07/15/2022 Time: 22:34 Bed 14 Private MD: Diagnosis: Acute respiratory failure;Respiratory failure, unspecified, unspecified whether with hypoxia or hypercapnia;Unspecified combined systolic (congestive) and diastolic (congestive) heart failure;Obesity, unspecified Presentation: 07/15 23:03 Chief complaint: EMS states: 71 year old female reports shortness of breaths since ha1 Tuesday. On EMS arrival oxygen saturation at 90. placed on nonrebreather at 15L/min. on transfer from EMS stretcher to ER bed, PT became unresponsive and pulseless. 23:03 Method Of Arrival: EMS: [place] [id number] 23:03 Coronavirus screen: Vaccine status:. Ebola Screen: No symptoms or risks identified at 1 this time. Initial Sepsis Screen: Does the patient meet any 2 criteria? RR > 20 per min. Systolic BP < 90 mmHg. Yes Does the patient have a suspected source of infection? No. Patient's initial sepsis screen is negative. Risk Assessment: Do you want to hurt yourself or someone else? Patient reports no desire to harm self or others. Onset of symptoms was July 11, 2022. 23:03 Care prior to arrival: Oxygen administered. via a non-rebreather mask. 1 23:03 Compressions began at 23:03. ha1 23:03 Acuity: THALIA 1 ha1 Triage Assessment: 23:03 General: Appears Behavior is unresponsive. Pain: Unable to use pain scale. FLACC scale ha1 score is 0 out of 10. Neuro: Level of Consciousness is unresponsive, Oriented to none. Cardiovascular: 23:03 Respiratory: Respiratory effort is gasping. ha1 Historical: - Allergies: 23:03 Imitrex; ha1 - PMHx: 23:03 Anxiety; Chronic obstructive lung disease; Congestive heart failure; Diabetes - IDDM; ha1 Hypertension; Migraines; Thyroid problem; TIA; - PSHx: 23:03 section; Cholecystectomy; hysterectomy; ha1 - Immunization history:: Adult Immunizations unknown. - Social history:: Smoking status: unknown Patient uses. - Family history:: not pertinent. Screenin:02 Abuse screen: Pt. unresponsive. ha1 23:15 [facility] ED Fall Risk Assessment (Adult) History of falling in the last 3 months, ha1 including since admission Confusion or Disorientation Yes (5 pts) Intoxicated or Sedated Yes (3 pts) Impaired Gait Yes (1 pt) Mobility Assist Device Used Yes (1 pt) Altered Elimination Yes (1 pt) Score/Fall Risk Level 3 or more points = High Risk Oriented to surroundings, Maintained a safe environment, Educated pt \T\ family on fall prevention, incl call for assistance when getting out of bed, Assessed \T\ reinforced patient's understanding of fall precautions, Hourly rounding (assess needs \T\ fall precautionary measures) done, Implemented a Fall Risk Plan of Care. Nutritional screening: No deficits noted. Tuberculosis screening: No symptoms or risk factors identified. Assessment: 23:00 Reassessment: patient was on the hallway awaiting on bed with EMS at 2238. Pt. was put ha1 in room at 2258. Pt. unresponsive. EMS started chest compressions. Dr. Harley was immediately in the room. 23:03 Cardiac rhythm is asystole. ha1 23:03 General: Appears Behavior is unresponsive. Neuro: Hunter Agitation-Sedation Scale ha1 (RASS): -5 Unarousable. Cardiovascular: Rhythm is asystole. Respiratory: Ventilator assessment: 15L via NRBM. GI: Abdomen is round non-distended, obese. Derm: Skin is intact, Skin is dry, Skin is normal, Skin temperature is cool. 23:05 CPR assessment: unresponsive, no respiratory effort. ha1 23:05 Cardiac rhythm is asystole. ha1 23:07 Cardiac rhythm is asystole. ha1 23:09 Cardiac rhythm is PEA. ha1 23:11 Cardiac rhythm is PEA. ha1 23:13 Cardiac rhythm is PEA. ha1 23:15 Cardiac rhythm is PEA. ha1 23:18 Cardiac rhythm is bradycardia. ha1 23:20 Cardiac rhythm is bradycardia. ha1 23:20 Reassessment: pt. on a ventilator. Respiratory: Respiratory effort is asymmetrical, ha1 Respiratory pattern is regular, symmetrical. 07/16 00:15 Reassessment: No changes from previously documented assessment. on a ventilator. ha1 01:15 Reassessment: pt. in no appareant distress. on a ventilator. ha1 02:11 Reassessment: Patient back from CT. ha1 02:13 Cardiac rhythm is asystole. ha1 02:14 Cardiac rhythm is asystole. ha1 02:16 Reassessment: pt. unresponsive. pulseless. Louisa Giles, PA, Delores, RN, Jaxon, [facility] RN, and respiratory therapist in the room. 02:20 Cardiac rhythm is PEA. ha1 02:56 Reassessment: [facility] contacted, pt a possible tissue and eye donation candidate. [email or web address] Case # [id number]. 06:59 Reassessment: Being transfer by [facility]. ha1 Vital Signs: 07/15 23:17 BP 163 / 94; Pulse 64; Resp 28; Pulse Ox 100% on Non-rebreather mask; Weight 136.08 kg; ha1 Height 5 ft. 5 in. ; 07/16 00:30 BP 123 / 97; Pulse 53; Resp 16 S; Pulse Ox 100% on ETT vent; ha1 01:15 BP 125 / 111; Pulse 55; Resp 18 A; Pulse Ox 100% on ETT vent; ha1 02:15 BP 126 / 88; Pulse 0; Resp 0 A; Pulse Ox 90% on ETT vent; ha1 07/15 23:17 Body Mass Index 49.92 (136.08 kg, 165.1 cm) 1 Dian Coma Score: 07/15 23:03 Eye Response: none(1). Motor Response: none(1). Verbal Response: none(1). Total: 3. ha1 ED Course: 22:38 Patient arrived in ED. rv1 23:00 Patient has correct armband on for positive identification. Bed in low position. Call 1 light in reach. Side rails up X 1. close to nursing station. 23:05 Arm band placed on right wrist. ha1 23:08 Philipp Harley MD is Attending Physician. [facility] 23:10 Inserted saline lock: 20 gauge in left antecubital area, using aseptic technique. IV ha1 inserted by RE Nix. 23:10 Intubation: 7.0 Fr. ETT placed orally. Performed by Philipp Harley MD Successful on ha1 first attempt. Placement verified by CXR, auscultating bilateral breath sounds, Ventilated with Ambu bag. 23:31 Cabrera cath inserted, using sterile technique, 16 Fr., by mi, balloon inflated, NGT: rv inserted 16 Fr. other ogt. 23:53 Veronica Hills RN is Primary Nurse. ha1 23:55 CXR XRAY In Process Unspecified. EDMS 07/16 00:04 Triage completed. ha1 01:00 Assisted provider with central line placement. Set up central line tray. Triple lumen ha1 line placed in right femoral. Line placed by Philipp Harley MD Placement verified by blood return, Dressed with Tegaderm, Blood was collected. 01:14 Jacquelyn Patricia MD is Hospitalizing Provider. yahir 01:20 Inserted saline lock: 18 gauge in right forearm, using aseptic technique. IV inserted ha1 by RE Nix. 02:25 CT Head Brain wo Cont In Process Unspecified. EDMS 02:25 Chest Abd Pelvis Wo Con In Process Unspecified. EDMS 02:29 Philipp Harley MD is Pronouncing Provider. yahir 06:26 pt with iv in place. ha1 Administered Medications: 07/15 23:11 Drug: EPINEPHrine 1:10,000 IVP 1 mg Route: IVP; Site: left antecubital; ha1 23:12 Drug: Calcium Chloride IVP 1 grams Route: IVP; Site: left antecubital; ha1 23:13 Drug: Sodium Bicarbonate IVP 50 mEq Route: IVP; Site: left antecubital; ha1 23:15 Drug: EPINEPHrine 1:10,000 IVP 1 mg Route: IVP; Site: left antecubital; ha1 23:17 Drug: Sodium Bicarbonate IVP 1 amp Route: IVP; Site: left antecubital; ha1 23:25 Drug: Norepinephrine IV 0.1 mcg/kg/min Route: IV; Rate: calculated rate; Site: left ha1 antecubital; 23:57 CANCELLED (Other Intervention Used): Aspirin PO Chewable Tablet 324 mg PO once; 81 mg kl tablets x 4 23:57 Drug: NS 0.9% IV 1000 ml Route: IV; Rate: 1 bolus; Site: right femoral; 07/16 00:16 Drug: Piperacillin-Tazobactam IVPB 3.375 grams Route: IVPB; Infused Over: 60 mins; kl Site: right femoral; 00:54 Drug: Famotidine IVP 20 mg Route: IVP; Site: right femoral; ha1 01:18 Drug: Midazolam IVP or IV 4 mg Route: IVP; Site: right femoral; ha1 02:17 Drug: EPINEPHrine 1:10,000 IVP 1 mg Route: IVP; Site: right forearm; ha1 02:21 Drug: Sodium Bicarbonate IVP 50 mEq Route: IVP; Site: right forearm; ha1 02:22 Drug: EPINEPHrine 1:10,000 IVP 1 mg Route: IVP; Site: right forearm; ha1 02:27 Not Given (Physician Discretion): Ipratropium Inhalation Aerosol 0.5 mg Inhalation once ha1 02:27 Not Given (Physician Discretion): Midazolam IVP or IV 4 mg IVP once ha1 02:28 Not Given (Physician Discretion): MethylPrednisoLONE IVP 125 mg IVP once ha1 02:28 Not Given (Physician Discretion): Levalbuterol Inhalation 1.25 mg Inhalation once ha1 Medication: 02:23 VIS not applicable for this client. ha1 Outcome: 01:18 Decision to Hospitalize by Provider. [facility] 02:23 Outcome Patient ha1 02:23 Patient : Time of 02:23 Pronounced by Philipp Harley MD [facility] 07:00 Patient left the ED. [facility] Signatures: Dispatcher [employer] EDMS Kelsey Hoffman RN RN kl Anderson, Corey, MD MD cha Vicente, Ronaldo RN Marycruz Appiah RN RN vc1 Ayala, Heidy, RN RN ha1 Villegas, Rebecca rv1 Corrections: (The following items were deleted from the chart) 04:49 07/15 23:00 Reassessment: patient was on the hallway awaiting on bed with EMS at 2238. ha1 Pt. was put in room at 2303. Pt. unresponsive. EMS started chest compressions. Dr. Harley was immediately in the room. 07/16 05:57 02:17 Reassessment: pt. unresponsive. pulseless. Louisa Giles PA, Delores, RN, mckenna Coates RN, and respiratory therapist in the room. 06:13 07/15 23:03 Chief complaint: EMS states: 71 year old female reports shortness of ha1 breaths since Tuesday. On our arrival oxygen saturation at 90. 07/16 06:15 06 23:03 Chief complaint: EMS states: 71 year old female reports shortness of ha1 breaths since Tuesday. On EMS arrival oxygen saturation at 90. placed on nonrebreather at 15L/min. 1 07/16 06:15 07/15 23:03 Acuity: THALIA 2 ha1 07/16 06:16 06 23:00 Reassessment: patient was on the hallway awaiting on bed with EMS at 2238. ha1 Pt. was put in room at 2258. Pt. unresponsive. EMS started chest compressions. Dr. Harley was immediately in the room. 1 07/16 06:17 06 23:00 Reassessment: patient was on the hallway awaiting on bed with EMS at 2238. ha1 Pt. was put in room at 2258. Pt. unresponsive. EMS started chest compressions. Dr. Harley was immediately in the room. 1 07/16 06:17 06 23:18 Cardiac rhythm is bradycardia [place] [id number] 07/16 06:20 02:23 Condition: [place] [address] 06:20 02:23 Patient : Time of 20:23 Pronounced by Philipp Harley MD [facility] 06:21 06 23:03 Care prior to arrival: None. [place] [address]
--- NOTE | 2022-07-16 01:19 | EDPHYS ---
Physician Documentation [facility] Name: Blanka Ferrell Age: 71 yrs Sex: Female : 1950 Arrival Date: 07/15/2022 Time: 22:34 Bed 14 Private MD: ED Physician Philipp Harley HPI: 07/16 01:08 This 71 yrs old Black Female presents to ER via EMS with complaints of SOB, OBESITY AND yahir ARREST. 01:08 The patient has shortness of breath at rest, with light activity. Onset: The yahir symptoms/episode began/occurred 3 day(s) ago. Duration: The symptoms are continuous, and are steadily getting worse. The patient's shortness of breath is aggravated by coughing, exertion, light activity, prone position, supine position, is alleviated by rest, sitting up, application of supplemental oxygen. Preceding the arrest, the patient was dyspneic. Pre-hospital course: NONE. Associated signs and symptoms: Pertinent positives: non-productive cough. Severity of symptoms: At their worst the symptoms were moderate severe in the emergency department the symptoms are worse markedly. The patient has experienced similar episodes in the past, multiple times. Historical: - Allergies: 07/15 23:03 Imitrex; ha1 - PMHx: 23:03 Anxiety; Chronic obstructive lung disease; Congestive heart failure; Diabetes - IDDM; ha1 Hypertension; Migraines; Thyroid problem; TIA; - PSHx: 23:03 section; Cholecystectomy; hysterectomy; ha1 - Immunization history:: Adult Immunizations unknown. - Social history:: Smoking status: unknown Patient uses. - Family history:: not pertinent. ROS: 07/16 01:08 Constitutional: Negative for fever, chills, and weight loss, Eyes: Negative for injury, yahir pain, redness, and discharge, ENT: Negative for injury, pain, and discharge, Neck: Negative for injury, pain, and swelling, Cardiovascular: Negative for chest pain, palpitations, and edema, Abdomen/GI: Negative for abdominal pain, nausea, vomiting, diarrhea, and constipation, Back: Negative for injury and pain, : Negative for injury, bleeding, discharge, and swelling, MS/Extremity: Negative for injury and deformity, Skin: Negative for injury, rash, and discoloration, Neuro: Negative for headache, weakness, numbness, tingling, and seizure, Psych: Negative for depression, anxiety, suicide ideation, homicidal ideation, and hallucinations, Allergy/Immunology: Negative for hives, rash, and allergies, Endocrine: Negative for neck swelling, polydipsia, polyuria, polyphagia, and marked weight changes, Hematologic/Lymphatic: Negative for swollen nodes, abnormal bleeding, and unusual bruising. Respiratory: Positive for shortness of breath, at rest. TIRED, LABORED. Exam: 01:08 Constitutional: This is a well developed, well nourished patient who is awake, alert, yahir and in no acute distress. Head/Face: Normocephalic, atraumatic. Eyes: Pupils equal round and reactive to light, extra-ocular motions intact. Lids and lashes normal. Conjunctiva and sclera are non-icteric and not injected. Cornea within normal limits. Periorbital areas with no swelling, redness, or edema. ENT: Nares patent. No nasal discharge, no septal abnormalities noted. Tympanic membranes are normal and external auditory canals are clear. Oropharynx with no redness, swelling, or masses, exudates, or evidence of obstruction, uvula midline. Mucous membranes moist. Neck: Trachea midline, no thyromegaly or masses palpated, and no cervical lymphadenopathy. Supple, full range of motion without nuchal rigidity, or vertebral point tenderness. No Meningismus. Chest/axilla: Normal chest wall appearance and motion. Nontender with no deformity. No lesions are appreciated. Cardiovascular: Regular rate and rhythm with a normal S1 and S2. No gallops, murmurs, or rubs. Normal PMI, no JVD. No pulse deficits. Abdomen/GI: Soft, non-tender, with normal bowel sounds. No distension or tympany. No guarding or rebound. No evidence of tenderness throughout. Back: No spinal tenderness. No costovertebral tenderness. Full range of motion. Female : Normal external genitalia. Skin: Warm, dry with normal turgor. Normal color with no rashes, no lesions, and no evidence of cellulitis. MS/ Extremity: Pulses equal, no cyanosis. Neurovascular intact. Full, normal range of motion. Neuro: Awake and alert, GCS 15, oriented to person, place, time, and situation. Cranial nerves II-XII grossly intact. Motor strength 5/5 in all extremities. Sensory grossly intact. Cerebellar exam normal. Normal gait. Psych: Awake, alert, with orientation to person, place and time. Behavior, mood, and affect are within normal limits. 01:08 Respiratory: moderate respiratory distress is noted, Respirations: labored breathing, that is moderate, Breath sounds: decreased breath sounds, that are moderate, rhonchi, that are mild, stridor, is not appreciated, wheezing: expiratory Respiratory rate: 28 01:21 ECG was reviewed by the Attending Physician. [facility] Vital Signs: 07/15 23:17 BP 163 / 94; Pulse 64; Resp 28; Pulse Ox 100% on Non-rebreather mask; Weight 136.08 kg; 1 Height 5 ft. 5 in. ; 07/16 00:30 BP 123 / 97; Pulse 53; Resp 16 S; Pulse Ox 100% on ETT vent; [facility] 01:15 BP 125 / 111; Pulse 55; Resp 18 A; Pulse Ox 100% on ETT vent; [facility] 02:15 BP 126 / 88; Pulse 0; Resp 0 A; Pulse Ox 90% on ETT vent; [facility] 07/15 23:17 Body Mass Index 49.92 (136.08 kg, 165.1 cm) [facility] Dian Coma Score: 07/15 23:03 Eye Response: none(1). Motor Response: none(1). Verbal Response: none(1). Total: 3. [facility] MDM: 23:08 Patient medically screened. [facility] 07/16 01:12 Differential diagnosis: Anemia asthma, Bronchitis CHF exacerbation, Chronic Obstructive yahir Pulmonary Disease arrythmia, cardiac arrest, respiratory arrest, Myocardial Infarction pneumonia, Sepsis Unstable Angina. Antibiotic administration: ZOSYN. Differential Diagnosis altered mental status, sepsis, flu. Immunization status: Pneumococcal vaccine: within last 5 years. Influenza vaccine: within last 5 years. Data reviewed: vital signs, nurses notes, lab test result(s), EKG, radiologic studies, CT scan, plain films. Consideration of Admission/Observation Patient was admitted/placed on observation. Escalation of care including admission/observation considered. I considered the following discharge prescriptions or medication management in the emergency department Medications were administered in the Emergency Department. See MAR. Test considered but Not performed: Ultrasound NO ECHO. Care significantly affected by the following chronic conditions: Diabetes, Hypertension, Congestive Heart Failure, Chronic Obstructive Pulmonary Disease, Obesity. Counseling: I had a detailed discussion with the patient and/or guardian regarding: the historical points, exam findings, and any diagnostic results supporting the discharge/admit diagnosis, lab results, radiology results, the need for further work-up and treatment in the hospital. 07/15 23:27 Order name: Blood Culture Adult (2) 07/15 23:27 Order name: CBC with Diff; Complete Time: 00:16 07/15 23:27 Order name: CMP; Complete Time: 01:07 07/15 23:27 Order name: Lactate w/ 2H reflex if indic. 07/15 23:27 Order name: Protime (+inr); Complete Time: 00:16 07/15 23:27 Order name: Ptt, Activated; Complete Time: 00:16 07/15 23:27 Order name: Basic Metabolic Panel 07/15 23:27 Order name: Troponin HS; Complete Time: 01:07 07/15 23:58 Order name: Magnesium; Complete Time: 01:07 [facility] 07/16 00:22 Order name: NT PRO-BNP; Complete Time: 01:07 [facility] 07/16 01:29 Order name: ABG Arterial Blood Gas [facility] 07/15 23:10 Order name: CXR XRAY vc1 07/16 01:20 Order name: CT Head Brain wo Cont [facility] 07/16 01:37 Order name: Chest Abd Pelvis Wo Con [facility] 07/15 23:27 Order name: EKG; Complete Time: 23:28 07/15 23:27 Order name: Accucheck; Complete Time: 00:16 07/15 23:27 Order name: Cardiac monitoring; Complete Time: 00:16 07/15 23:27 Order name: EKG - Nurse/Tech; Complete Time: 00:16 07/15 23:27 Order name: IV Saline Lock - Large Bore; Complete Time: 00:16 07/15 23:27 Order name: Labs collected and sent; Complete Time: 00:16 07/15 23:27 Order name: O2 Per Protocol; Complete Time: 00:16 07/15 23:27 Order name: O2 Sat Monitoring; Complete Time: 00:16 07/15 23:27 Order name: Vital Signs; Complete Time: 00:16 07/15 23:27 Order name: IV Saline Lock; Complete Time: 00:15 07/15 23:34 Order name: Central Line Kit; Complete Time: 00:15 [facility] 07/15 23:35 Order name: Cabrera; Complete Time: 00:15 [facility] EC:21 Rate is 56 beats/min. Rhythm is regular. QRS [place] is Normal. [place] interval is normal. QRS yahir interval is normal. QT interval is normal. No Q waves. T waves are Normal. No ST changes noted. Clinical impression: Sinus bradycardia and No evidence of ischemia. Interpreted by me. Reviewed by me. Administered Medications: 07/15 23:11 Drug: EPINEPHrine 1:10,000 IVP 1 mg Route: IVP; Site: left antecubital; ha1 23:12 Drug: Calcium Chloride IVP 1 grams Route: IVP; Site: left antecubital; ha1 23:13 Drug: Sodium Bicarbonate IVP 50 mEq Route: IVP; Site: left antecubital; ha1 23:15 Drug: EPINEPHrine 1:10,000 IVP 1 mg Route: IVP; Site: left antecubital; ha1 23:17 Drug: Sodium Bicarbonate IVP 1 amp Route: IVP; Site: left antecubital; ha1 23:25 Drug: Norepinephrine IV 0.1 mcg/kg/min Route: IV; Rate: calculated rate; Site: left ha1 antecubital; 23:57 CANCELLED (Other Intervention Used): Aspirin PO Chewable Tablet 324 mg PO once; 81 mg kl tablets x 4 23:57 Drug: NS 0.9% IV 1000 ml Route: IV; Rate: 1 bolus; Site: right femoral; 07/16 00:16 Drug: Piperacillin-Tazobactam IVPB 3.375 grams Route: IVPB; Infused Over: 60 mins; Site: right femoral; 00:54 Drug: Famotidine IVP 20 mg Route: IVP; Site: right femoral; ha1 01:18 Drug: Midazolam IVP or IV 4 mg Route: IVP; Site: right femoral; ha1 02:17 Drug: EPINEPHrine 1:10,000 IVP 1 mg Route: IVP; Site: right forearm; ha1 02:21 Drug: Sodium Bicarbonate IVP 50 mEq Route: IVP; Site: right forearm; ha1 02:22 Drug: EPINEPHrine 1:10,000 IVP 1 mg Route: IVP; Site: right forearm; ha1 02:27 Not Given (Physician Discretion): Ipratropium Inhalation Aerosol 0.5 mg Inhalation once ha1 02:27 Not Given (Physician Discretion): Midazolam IVP or IV 4 mg IVP once ha1 02:28 Not Given (Physician Discretion): MethylPrednisoLONE IVP 125 mg IVP once ha1 02:28 Not Given (Physician Discretion): Levalbuterol Inhalation 1.25 mg Inhalation once ha1 Disposition Summary: 07/16/22 02:31 Patient Location: Home(07/16/22 02:31) yahir Pronouncing Physician: Philipp Harley cha Time of : 02:23 07/16/2022 yahir Diagnosis - Acute respiratory failure yahir - Respiratory failure, unspecified, unspecified whether with hypoxia or yahir hypercapnia(07/16/22 02:31) - 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 [facility] 23:58 23:34 MAGNESIUM+C.LAB.BRZ ordered. [facility] 07/16 00:22 00:17 PROBNP+C.LAB.BRZ ordered. [facility]MO 01:28 07/15 23:50 Head C Spine Cap Wo Con+CT.RAD.BRZ ordered. [facility] 07/16 01:37 01:21 Chest For PE Angio+CT.RAD.BRZ ordered. [facility] EDMO 01:37 01:21 Abdomen Pelvis W Con+CT.RAD.BRZ ordered. 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 EDMS EDMS
[2022-07-16] MEDS ORDERED: MIDAZOLAM HCL 2 MG/2 ML INJ ONE (01:21)
[2022-07-16 01:28] LABS: Arterial Blood Carboxyhemoglob 0.8 % (0-1.5); Blood Gas Oxyhemoglobin 97.3 % (94-97); Blood O2 Saturation 99.3 % (92-98.5)
[2022-07-16 07:10] VITALS: BP 126/88; O2SAT 90
--- NOTE | 2022-07-16 11:23 | RAD REPORT ---
EXAM DESCRIPTION: RAD - Chest Single View - 07/15/2022 11:53 pm CLINICAL HISTORY: POST ETT TECHNIQUE: Frontal view of the chest. COMPARISON: XR Chest dated 06/18/2021 FINDINGS: Lungs: Unremarkable. No consolidation. Pleural space: Unremarkable. No pneumothorax. Heart: The cardiac silhouette is moderately to severely enlarged, stable. Mediastinum: Unremarkable. Bones/joints: Unremarkable. Vasculature: Thoracic aortic atherosclerosis. Tubes, lines and devices: Endotracheal tube tip projects 2.7 cm proximal to the dee. Nasogastr ic tube in place. The tip is collimated off the [id number]. The sidehole projects over the GE junction. IMPRESSION: 1. Endotracheal tube tip projects 2.7 cm proximal to the dee. 2. Nasogastric tube tip is collimated off the [id number]. The sidehole projects over the GE ju nction. Recommend approximately 5 cm advancement in order to prevent aspiration. Electronically signed by: Kristen Pugh MD 07/16/2022 12:17 AM CDT Due to temporary technical issues with the PACS/Fluency reporting system, reports are being signed by the in house radiologist without review as a courtesy to ensure prompt reporting. The interpreting r adiologist is fully responsible for the content of the report.
--- NOTE | 2022-07-16 13:33 | RAD REPORT ---
EXAM DESCRIPTION: CT - Head Brain Wo Cont - 07/16/2022 3:02 am CLINICAL HISTORY: The patient is 71 years old and is Female; MENTAL STATUS CHANGE [facility] MAIN TECHNIQUE: Axial computed tomography images of the head/brain without intravenous contrast. Sagitt al and coronal reformatted images were created and reviewed. This CT exam was performed using one o r more of the following dose reduction techniques: automated exposure control, adjustment of the mA and/or kV according to patient size, and/or use of iterative reconstruction technique. COMPARISON: 02/19/2022 CT head without contrast FINDINGS: BRAIN: Remote left cerebellar infarction versus arachnoid cyst, unchanged. Moderate periventricular microangiopathic white matter changes. No extra-axial fluid collection. No intracranial hemorrhage. No transtentorial herniation. No focal garner-white matter differentiation abnormality. MIDLINE SHIFT: No midline shift. VENTRICLES: Unremarkable. No ventriculomegaly. BONES/JOINTS: Unremarkable. No fracture of the calvarium or visualized facial bones. SOFT TISSUES: Unremarkable. SINUSES: Bilateral maxillary sinus retention cysts. MASTOID AIR CELLS: Unremarkable as visualized. No mastoid effusion. TUBES, LINES AND DEVICES: Partially visualized ETT and orogastric tube. IMPRESSION: No acute intracranial abnormality. Electronically signed by: Jaquan Thomas MD 07/16/2022 2:43 AM CDT Due to temporary technical issues with the PACS/Fluency reporting system, reports are being signed by the in house radiologist without review as a courtesy to ensure prompt reporting. The interpreting r adiologist is fully responsible for the content of the report.
--- NOTE | 2022-07-16 13:35 | RAD REPORT ---
EXAM DESCRIPTION: CT - Chest Abd Pelvis Wo Con - 07/16/2022 3:01 am CLINICAL HISTORY: The patient is 71 years old and is Female; CHEST PAIN AND ABD DISTENTION TECHNIQUE: Axial computed tomography images of the chest, abdomen and pelvis without intravenous con trast. Sagittal and coronal reformatted images were created and reviewed. This CT exam was perfor med using one or more of the following dose reduction techniques: automated exposure control, adjus tment of the mA and/or kV according to patient size, and/or use of iterative reconstruction technique . COMPARISON: CT abdomen pelvis February 19, 2022 FINDINGS: ARTIFACTS: The exam is suboptimal secondary to motion artifact. CHEST: LUNGS: Dependent atelectasis within the lung bases is noted. The lungs are otherwise clear. PLEURAL SPACE: Small bilateral pleural effusions are present. No pneumothorax. HEART: The heart is enlarged with a trace pericardial effusion. ABDOMEN: LIVER: Homogeneous without focal mass. GALLBLADDER AND BILE DUCTS: Surgical clips are present in the right upper quadrant, consistent wi th previous cholecystectomy. PANCREAS: Mild peripancreatic inflammation/fluid is suggested. No ductal dilation. SPLEEN: Unremarkable. ADRENALS: Unremarkable. No mass. KIDNEYS AND URETERS: No obstructing stones. No hydronephrosis. No perinephric fluid. STOMACH AND BOWEL: Stomach is decompressed. Minimal air is present within the stomach. The majori ty the small bowel is decompressed. Stool is present throughout colon. Scattered colonic diverticula are noted without surrounding inflammation. PELVIS: APPENDIX: No findings to suggest acute appendicitis. BLADDER: A Cabrera catheter is present within a decompressed bladder. No stones. REPRODUCTIVE: Unremarkable as visualized. CHEST, ABDOMEN and PELVIS: INTRAPERITONEAL SPACE: Trace free fluid is present within the pelvis which is likely physiologic. No free air. BONES/JOINTS: Multilevel degenerative change of the spine is present. There is no acute fractur e of the visualized axial and appendicular skeleton. SOFT TISSUES: Postoperative change of the anterior abdominal wall is present. VASCULATURE: Unremarkable. No aortic aneurysm. LYMPH NODES: Unremarkable. No enlarged lymph nodes. TUBES, LINES AND DEVICES: The endotracheal tube tip is superior to the dee. Enteric tube tip i s within the stomach. IMPRESSION: 1. Small pleural effusions with bibasilar atelectasis. 2. Findings suggest mild peripancreatic inflammation/stranding which can be seen with acute pancrea titis. Correlation with laboratory values is recommended. Electronically signed by: Stacy Pelayo MD 07/16/2022 2:39 AM CDT Due to temporary technical issues with the PACS/Fluency reporting system, reports are being signed by the in house radiologist without review as a courtesy to ensure prompt reporting. The interpreting r adiologist is fully responsible for the content of the report.
--- NOTE | 2022-07-16 13:45 | EKG ---
Test Date: 2022-07-16 Test Time: 01:18:59 Supervisor Wool Shearing: MEASUREMENT RESULTS: Intervals: Rate: 56 MI: 164 QRSD: 158 QT: 530 QTc: 511 [place]: P: 61 MI: 164 QRS: -10 T: 56 INTERPRETIVE STATEMENTS: Sinus bradycardia Left bundle branch block Abnormal ECG Compared to ECG 06/27/2022 20:16:36 No significant changes Electronically Signed On 07-16-22 13:44:51 CDT by Florian Morris
== END 2022-07-16 07:00 | disposition expired ==
LOC: ER 22:34
DX: J96.00 Acute respiratory failure, unspecified whether with hypoxia or hypercapnia (principal); I50.40 Unspecified combined systolic (congestive) and diastolic (congestive) heart failure; E66.9 Obesity, unspecified; I10 Essential (primary) hypertension; J44.9 Chronic obstructive pulmonary disease, unspecified; Z68.42 Body mass index [BMI] 45.0-49.9, adult; Z88.6 Allergy status to analgesic agent
CPT/HCPCS: 93005; 87040 ×2; 85025; 36415; 83735; 85610; 83605; 85730; 84484; 80053; 83880; 70450; 71250; 74176; 71045; 82805; 31500; 51702; 92950; 99291; 99292; 94002; J0461; J2543 ×2; J2250; J0171; J7030 ×2